=== PATIENT | female | born 1960 | race Caucasian/White ===

== ENCOUNTER 2024-02-26 22:41 | Inpatient (IN) ==
[2024-02-26] MEDS: OPTIRAY 320 100ml IV ONE (23:05)
[2024-02-26 23:09] LABS: iSTAT Creatinine 0.7 mg/dl (0.6-1.3); iSTAT Hemoglobin 14.3 g/dl (12.0-16.0); iSTAT Ionized Calcium 1.16 mmol/l (1.12-1.32); iSTAT Potassium 3.2 mmol/L (3.3-5.0)
[2024-02-26] MEDS: SODIUM CHLORIDE 0.9% 1,000 ML IV SCH (23:26)
[2024-02-26 23:38] LABS: Basophils # (auto) 0.03 K/uL (0.00-0.20); Basophils % (auto) 0.5 %; Eosinophils # (auto) 0.01 K/uL (0.00-0.50); Eosinophils % (auto) 0.2 %; Hematocrit (blood only) 40.3 % (37.0-47.0); Hemoglobin 13.9 g/dl (12.0-16.0); Immature Granulocytes # (auto) 0.01 K/uL (0.01-0.20); Immature Granulocytes % (auto) 0.2 %; Lymphocytes # (auto) 1.21 K/uL (1.20-3.40); Mean Corpuscular Hemoglobin 31.2 pg (25.0-34.0); Mean Corpuscular Hgb Conc 34.5 g/dL (32.0-36.0); Mean Corpuscular Volume 90.4 fL (80.0-100.0); Mean Platelet Volume 9.5 fL (9.4-12.4); Monocytes # (auto) 0.57 K/uL (0.11-0.59); Monocytes % (auto) 10.3 %; Neutrophils # (auto) 3.68 K/uL (1.40-6.50); Neutrophils % (auto) 66.8 %; Platelet Count 353 K/uL (130-400); RDW Standard Deviation 46.6 fL (36.4-46.3); Red Blood Count 4.46 M/uL (4.20-5.40); White Blood Count 5.51 K/ul (4.8-10.8)
[2024-02-27] LABS: INR 0.9 (0.9-1.1); Prothrombin Time 9.9 Seconds (9.0-12.0)
--- NOTE | 2024-02-27 00:12 | CT Scan Report ---
Exam(s): CT HEAD Without Contrast EXAM: CT Head Without Intravenous Contrast CLINICAL HISTORY: Reason for exam: Trauma. TECHNIQUE: Axial computed tomography images of the head/brain without intravenous contrast. CTDI is 37.12 mGy and DLP is 2383.07 mGy-cm. Automated exposure control was utilized for the study. A dose lowering technique was utilized adhering to the principles of ALARA. COMPARISON: PET/CT scan: 07/11/2022 FINDINGS: Diagnostic sensitivity is reduced by the absence of IV contrast and motion artifacts. Brain: Moderately large size area of vasogenic edema with ill-defined borderline hyperdense abnormality and small oval-shaped foci of calcification seen in the left frontotemporal lobes concerning for metastatic lesions versus posttraumatic in nature. A moderate size hypoattenuating abnormality involving the right parietal cortex, likely represents encephalomalacia Ventricles: Unremarkable. No ventriculomegaly. No shift in midline structures. Bones/joints: Right parietal/occipital craniotomy. No acute fracture. Soft tissues: Unremarkable. Sinuses: Unremarkable as visualized. No acute sinusitis. Mastoid air cells: Unremarkable as visualized. No mastoid effusion. IMPRESSION: Exam limited in absence of IV contrast. Moderately large size area of vasogenic edema with ill-defined borderline hyperdense regions and small oval-shaped foci of calcification seen in the left frontotemporal lobes, metastatic lesions versus posttraumatic in nature. Moderate size cortical hypodensity in the right parietal lobe, likely postsurgical encephalomalacia Right parietal/occipital craniotomy. . Electronically signed by: Destiny Yung MD, JULIET 02/27/24 00:11 AM
--- NOTE | 2024-02-27 00:26 | CT Scan Report ---
Exam(s): CT C SPINE EXAM: CT Cervical Spine Without Intravenous Contrast CLINICAL HISTORY: Reason for exam: Trauma. TECHNIQUE: Axial computed tomography images of the cervical spine without intravenous contrast. CTDI is 37.12 mGy and DLP is 2383.07 mGy-cm. Automated exposure control was utilized for the study. A dose lowering technique was utilized adhering to the principles of ALARA. COMPARISON: PET/CT scan: 07/11/2022 FINDINGS: Motion-induced image degradation. There has been prior fusion instrumentation from C3-C7 levels. A 3 mm anterolisthesis of C2 on C3. There is 5-6 mm C3 vertebral anterolisthesis. Vertebrae: Osteoporosis. Straightening of normal lordosis. No acute fracture. Endplates and posterior elements sclerosis and cortical thickening/enlargement of bone. Discs/spinal canal/neural foramina: Multilevel moderate degenerative spondylitic changes with variable degrees of foraminal narrowing. Soft tissues: Grossly unremarkable. . IMPRESSION: Postsurgical spine. 5-6 mm C3 vertebral anterolisthesis. A 3 mm C2 vertebral anterolisthesis. Grossly otherwise no significant abnormalities post trauma . . Electronically signed by: Destiny Yung MD, OLIVER 02/27/24 00:25 AM
[2024-02-27 00:32] LABS: Troponin I High Sensitivity 1127.6 pg/ml (0-14)
[2024-02-27 00:42] LABS: Albumin Level 3.6 gm/dl (3.4-5.0); Bilirubin,Total 0.4 mg/dl (0.2-1.0); Calcium 9.1 mg/dl (8.6-10.3); Potassium 3.4 mmol/L (3.5-5.1)
[2024-02-27 00:48] LABS: BUN Creatinine Ratio 18.2 (10-20); Creatinine Clr Calc Pharmacy 67.2 ml/min; Est GFR (African American) 107.4 ml/min; Est GFR (Non-African American) 92.7 ml/min; Globulin 3.7 gm/dl (2.5-4.0); Total Protein 7.3 gm/dl (6.0-8.3)
--- NOTE | 2024-02-27 01:02 | CT Scan Report ---
Exam(s): CT ABDOMEN + PELVIS With Contrast IV Amt: 93 ML OPTIRAY 320 EXAM: CT Abdomen and Pelvis With Intravenous Contrast CLINICAL HISTORY: Reason for exam: Trauma. TECHNIQUE: Axial computed tomography images of the abdomen and pelvis with intravenous contrast. CTDI is 37.12 mGy and DLP is 2383.07 mGy-cm. Automated exposure control was utilized for the study. A dose lowering technique was utilized adhering to the principles of ALARA. CONTRAST: Patient received 93 ML OPTIRAY 320 of IV contrast COMPARISON: PET/CT scan: 07/11/2022 FINDINGS: Diagnostic sensitivity is reduced by the motion artifact. Lung bases: Posteriorly basilar linear atelectatic changes RT>LT.. Posteriorly mild pleural thickening. Cardiomegaly. Multivessel calcified coronary arterial atherosclerosis. No mass. No consolidation. ABDOMEN: Liver: No discernible mass. Intrahepatic/extrahepatic postcholecystectomy ductal ectasia. CBD: Maximum 13 mm in diameter. Pancreas: Unremarkable. No mass. No ductal dilation. Spleen: Unremarkable. No splenomegaly. Adrenals: Bilateral mild thickening.. No mass. Kidneys and ureters: A 10 mm hypodensity medially in the right renal cortex. A 5.5 mm cyst in the lower pole right kidney. No solid mass. No hydronephrosis. Stomach and bowel: A moderately distended somewhat patulous appearing fluid and gas-filled stomach. Normal caliber small bowel. Large amount of formed stool is seen throughout the colon. No mucosal thickening. PELVIS: Appendix: Normal appendix. Bladder: A distended urinary bladder. No mass. Reproductive: Prior hysterectomy. ABDOMEN and PELVIS: Intraperitoneal space: Unremarkable. No free air. No significant fluid collection. Bones/joints: Osteopenia. A grade 1/grade 2 L4 spondylolisthesis with associated chronic endplates deformity. Mild/moderate rotatory lumbar levoscoliosis. Multilevel degenerative thoracolumbar spondylitic changes. No obvious acute fracture Soft tissues: Unremarkable. Vasculature: Unremarkable. No abdominal aortic aneurysm. Lymph nodes: Unremarkable. No enlarged lymph nodes.. IMPRESSION: Suboptimally evaluated due to motion artifact. No CT evidence of abdominal/pelvic solid organ injury. No free intraperitoneal air, free fluid or acute fracture seen. Chronic findings as described above. . Electronically signed by: Destiny Yung MD, JULIET 02/27/24 01:01 AM
--- NOTE | 2024-02-27 01:25 | Emergency Department Note ---
Impression & Plan AMS (altered mental status), Melanoma metastatic to brain, Vasogenic edema, Elevated troponin, Ground-level fall, CHI (closed head injury) ED Provider Note NAME: LIGIA ROWE AGE: 63 SEX: Female INFORMANT: Patient, EMS, ED PROVIDER(S): José Luis Lozano MD CHIEF COMPLAINT: Trauma PLAN: Disposition: Admitted Outpatient prescription management: none Referral: None MEDICAL DECISION MAKING: Patient presented because of a fall. She seems somewhat confused. She was made a trauma alert and was evaluated appropriately. Primary and secondary surveys performed. She had bruising noted around the left eye. Patient did not complain of any pain. I-STAT was unremarkable. Patient had a nonischemic ECG. She was sent for CT imaging. No acute traumatic findings were noted. There was vasogenic edema present in the left frontal and right posterior portions of her brain. On record review the right posterior seem to be old consistent with her known metastatic issues. Patient appears to have new vasogenic edema in the left frontal lobe. Patient had a significant elevation of cardiac troponin. She was evaluated again and denied any chest pain. states she has not been complaining of any chest pain or breathing issues over the last few days. Due to the vasogenic edema and fall anticoagulation was held. I did order a dose of IV Decadron. Patient will need further evaluation and management in the hospital. [facility]. Patient was evaluated in the ER and admitted for further management Care/management discussed with: mortgage branch manager Level of care consideration(s): After review of the information above and other included data, I feel the patient requires escalation of care to admission Triage Nursing notes: reviewed and agree them. Vital Signs: reviewed and remarkable for no significant abnormalities Additional History obtained from: Patient's presented to the ER. He noted that she has had declining mental status over the last 24 hours. Chronic Medical/Social Conditions affecting care: Metastatic melanoma Prior/ Outside/ External records reviewed: none Differential Diagnosis: Trauma, infection, dehydration, metabolic abnormality, hypo/hyperglycemia, electrolyte disturbance, anemia, hypoxia, cardiac sources, intracerebral event, toxicologic, neurologic, as well as other pathologies. Diagnostics, independently interpreted by me: ECG: Twelve-lead ECG reveals a sinus rhythm first-degree AV block and septal Q waves at [address] elevation or depression. Cardiac Monitoring: Cardiac monitoring ordered by me: The patient was placed on continuous cardiac monitoring and observed. It revealed a normal sinus rhythm at 77 beats per minute without ectopy or evidence of dysrhythmia. Medical decision rules: none Imaging studies: Chest x-ray. Findings: A chest x-ray was performed and revealed no pneumothorax, effusion, infiltrate, pulmonary edema, free air under the diaphragm, or wide mediastinum. Impression: No acute disease. CT scan of the head as above. Vasogenic edema noted. I refer you to the EMR for further details. HPI: 63 year old Female arrives for evaluation of a ground-level fall. This fall reportedly occurred last night. noted over the last 24 hours she had a decrease in mental status. Patient is not on anticoagulation. She does have a history of melanoma. Patient presented and was seeming confused. She denied any headache, neck pain, chest pain, abdominal pain, back pain or extremity pain. The patient has been given no medication prehospital Relieving factors. Current pain is rated as 0/10. Patient denies headache, neck pain, chest pain, abdominal pain, back pain, extremity pain. History is limited secondary to confusion. PAST MEDICAL HISTORY: See Below, melanoma PAST SURGICAL HISTORY: See Below, SOCIAL HISTORY: See Below, HOME MEDICATIONS: See Below ALLERGIES: See Below VITALS: See Below PHYSICAL EXAMINATION: GENERAL: Awake, confused appearing, no distress HEAD: Normocephalic, atraumatic except for small contusion noted in the left eyebrow no mckeon sign. No raccoon eyes. EYES: Normal conjunctiva. PERRL. EARS: External ears normal. NOSE: Atraumatic OROPHARYNX: Lips, tongue, and mucosa unremarkable. No erythema or exudate. NECK: Inspection normal. No tracheal deviation or JVD. No posterior midline tenderness. No step offs noted. RESPIRATORY: CTA bilaterally. Breath sounds equal. No wheezes. No rhonchi. Normal respiratory effort. CARDIAC: Regular rate, normal rhythm. No murmurs. No rubs. ABDOMEN: Inspection reveals no abnormalities. Soft, non distended. No tenderness to palpation. No hernias. BACK: No midline step offs or tenderness to palpation. Unremarkable. PELVIS: Stable to rock. SKIN: Normal. LYMPH: No adenopathy. MUSCULOSKELETAL: Upper and lower extremities are atraumatic. NEURO: GCS 14. Confused sensorium. No sensory or motor deficits noted. PROCEDURES: none CRITICAL CARE: none OBSERVATION NOTE: none Past Med/Surg History Problem List (Updated 02/27/24 @ 01:25 by José Luis Lozano MD) CHI (closed head injury) (Acute) Ground-level fall (Acute) Elevated troponin (Acute) Vasogenic edema (Acute) AMS (altered mental status) (Acute) Memory changes Balance problems Melanoma metastatic to brain (Chronic) Medical History History of melanoma Lesion of brain (08/05/12) Melanoma metastatic to brain No pertinent past medical history Seizure disorder Surgical History H/O craniotomy History of back surgery History of brain surgery x2 History of knee replacement procedure of left knee History of partial hysterectomy Hx of cholecystectomy Status post right foot surgery Family History Grandfather (Maternal) Cancer Breast cancer Sister Cancer Breast cancer Father Cancer Colon cancer Social History Smoking Status: Current every day smoker Tobacco Type: Cigarettes Cigarettes Per Day: 13; Hx Alcohol Use: No Preferred Language: [place] Communication Ability: Effective Visual Impairment: No Limitations Hearing Ability: Normal Beliefs That Will Affect Care: None marital status: Current Living Situation: Spouse current occupational status: employed 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 [employer] Feels Safe at Home: Yes Physical Activity Frequency: Does not Exercise Assistive Devices: Glasses Allergies Allergies Allergy/AdvReac Type Severity Reaction Status Date / Time erythromycin base Allergy Unknown BROUGHT ON Verified 11/19/22 14:03 SEIZURES Macrolide Antibiotics Allergy Unknown Unknown Verified 11/19/22 14:03 Home Meds Home Medications Medication Instructions Recorded Confirmed levothyroxine 200 mcg tablet 200 mcg PO DAILYBB 08/17/21 02/27/24 (Euthyrox) trazodone 100 mg tablet 150 mg PO HS 08/17/21 02/27/24 multivitamin 1 tab PO QAM 08/30/21 02/27/24 paroxetine HCl 40 mg tablet 40 mg PO QAM 08/30/21 02/27/24 ondansetron HCl 8 mg tablet 8 mg PO BID 12/15/21 02/27/24 dabrafenib 75 mg capsule (Tafinlar) 75 mg PO AMHS 07/30/22 02/27/24 trametinib 2 mg tablet (Mekinist) 1.5 mg PO DAILY 07/30/22 02/27/24 carbamazepine 200 mg 400 mg PO AMHS 11/19/22 02/27/24 tablet,extended release,12 hr atorvastatin 20 mg tablet 20 mg PO QPM 02/27/24 02/27/24 losartan 50 mg tablet 50 mg PO QAM 02/27/24 02/27/24 triamcinolone acetonide 0.1 % 1 applic topical BID 02/27/24 02/27/24 topical cream Results & Data (ED) Vital Signs Vital Signs - 24 hr 02/26/24 22:47 02/26/24 22:47 02/26/24 22:47 Temperature 36.7 C Pulse Rate 79 77 Pulse Rate [Right] Pulse Rhythm [Right] Pulse Strength [Right] Respiratory Rate 20 Respiratory Effort / Characteristics Respiratory Depth Blood Pressure 139/88 Blood Pressure [Right Arm] Blood Pressure Mean Blood Pressure Mean [Right Arm] Blood Pressure Position [Right Arm] Pulse Oximetry 95 Oxygen Delivery Method Room Air Sepsis Recent Fever Within 48 Hours No Sepsis New/Unexplained Change in Mental Status Yes Sepsis Action Taken by Nursing No Action Required 02/26/24 22:47 02/26/24 23:30 02/27/24 00:00 Temperature Pulse Rate 70 Pulse Rate [Right] 75 Pulse Rhythm [Right] Regular Pulse Strength [Right] Normal Respiratory Rate 22 16 Respiratory Effort / Characteristics Non-Labored Spontaneous Respiratory Depth Normal Blood Pressure 133/82 Blood Pressure [Right Arm] 106/67 Blood Pressure Mean 89 Blood Pressure Mean [Right Arm] 80 Blood Pressure Position [Right Arm] Lying Pulse Oximetry 91 96 Oxygen Delivery Method Room Air Room Air Sepsis Recent Fever Within 48 Hours Sepsis New/Unexplained Change in Mental Status Sepsis Action Taken by Nursing 02/27/24 00:58 02/27/24 01:56 Temperature Pulse Rate Pulse Rate [Right] 82 77 Pulse Rhythm [Right] Pulse Strength [Right] Respiratory Rate 16 16 Respiratory Effort / Characteristics Non-Labored Spontaneous Non-Labored Spontaneous Respiratory Depth Normal Normal Blood Pressure Blood Pressure [Right Arm] 121/78 114/76 Blood Pressure Mean Blood Pressure Mean [Right Arm] 92 88 Blood Pressure Position [Right Arm] Lying Pulse Oximetry 96 94 Oxygen Delivery Method Room Air Room Air Sepsis Recent Fever Within 48 Hours Sepsis New/Unexplained Change in Mental Status Sepsis Action Taken by Nursing Laboratory Data 02/26/24 22:50 02/26/24 22:54 Lab Results 02/26/24 02/26/24 02/26/24 Range/Units 22:50 22:54 22:56 WBC 5.51 (4.8-10.8) K/ul RBC 4.46 (4.20-5.40) M/uL Hgb 13.9 (12.0-16.0) g/dl POC Hgb 14.3 (12.0-16.0) g/dl Hct 40.3 (37.0-47.0) % POC Hct 42 (37-47) % MCV 90.4 (80.0-100.0) fL MCH 31.2 (25.0-34.0) pg MCHC 34.5 (32.0-36.0) g/dL RDW Std Deviation 46.6 H (36.4-46.3) fL RDW Coeff of Kelvin 14.0 (11.5-14.5) % Plt Count 353 (130-400) K/uL MPV 9.5 (9.4-12.4) fL Immature Gran % (Auto) 0.2 % Neut % (Auto) 66.8 % Lymph % (Auto) 22.0 % [place] % (Auto) 10.3 % Eos % (Auto) 0.2 % Baso % (Auto) 0.5 % Neut # (Auto) 3.68 (1.40-6.50) K/uL Lymph # (Auto) 1.21 (1.20-3.40) K/uL [place] # (Auto) 0.57 (0.11-0.59) K/uL Eos # (Auto) 0.01 (0.00-0.50) K/uL Baso # (Auto) 0.03 (0.00-0.20) K/uL Immature Gran # (Auto) 0.01 (0.01-0.20) K/uL PT 9.9 (9.0-12.0) Seconds INR 0.9 (0.9-1.1) POC Sodium 137 (135-144) mmol/L Sodium 136 (136-145) mmol/L POC Potassium 3.2 L (3.3-5.0) mmol/L Potassium 3.4 L (3.5-5.1) mmol/L POC Chloride 99 L (101-112) mmol/L Chloride 99 (98-107) mmol/L Carbon Dioxide 28 (21-32) mmol/L POC Total CO2 27 (24-31) mmol/L Anion Gap 9 (3-11) POC Anion Gap 15.0 L (16-25) mmol/L POC BUN 12 (7-18) mg/dl BUN 12 (6-23) mg/dl Creatinine 0.66 (0.6-1.2) mg/dl POC Creatinine 0.7 (0.6-1.3) mg/dl Est Cr Clr Drug Dosing 67.2 ml/min Est GFR ( Amer) 107.4 ml/min Est GFR (Non-Af Amer) 92.7 ml/min BUN/Creatinine Ratio 18.2 (10-20) Glucose 138 H (70-99(Fasting)) mg/dl POC Glucose (other) 137 H (70-99) mg/dl Calcium 9.1 (8.6-10.3) mg/dl POC Ioniz Calcium Deshawn 1.16 (1.12-1.32) mmol/l Total Bilirubin 0.4 (0.2-1.0) mg/dl AST 36 (13-39) U/L ALT 16 (7-52) U/L Alkaline Phosphatase 111 H (34-104) U/L Ammonia (18-72) umol/L Total Creatine Kinase 269 H (26-192) U/L Troponin I High Sens 1127.6 H* (0-14) pg/ml Total Protein 7.3 (6.0-8.3) gm/dl Albumin 3.6 (3.4-5.0) gm/dl Globulin 3.7 (2.5-4.0) gm/dl Albumin/Globulin Ratio 1.0 (0.9-2) Ethyl Alcohol mg/dL < 10.0 (<10.0) mg/dl 02/27/24 Range/Units 00:27 WBC (4.8-10.8) K/ul RBC (4.20-5.40) M/uL Hgb (12.0-16.0) g/dl POC Hgb (12.0-16.0) g/dl Hct (37.0-47.0) % POC Hct (37-47) % MCV (80.0-100.0) fL MCH (25.0-34.0) pg MCHC (32.0-36.0) g/dL RDW Std Deviation (36.4-46.3) fL RDW Coeff of Kelvin (11.5-14.5) % Plt Count (130-400) K/uL MPV (9.4-12.4) fL Immature Gran % (Auto) % Neut % (Auto) % Lymph % (Auto) % [place] % (Auto) % Eos % (Auto) % Baso % (Auto) % Neut # (Auto) (1.40-6.50) K/uL Lymph # (Auto) (1.20-3.40) K/uL [place] # (Auto) (0.11-0.59) K/uL Eos # (Auto) (0.00-0.50) K/uL Baso # (Auto) (0.00-0.20) K/uL Immature Gran # (Auto) (0.01-0.20) K/uL PT (9.0-12.0) Seconds INR (0.9-1.1) POC Sodium (135-144) mmol/L Sodium (136-145) mmol/L POC Potassium (3.3-5.0) mmol/L Potassium (3.5-5.1) mmol/L POC Chloride (101-112) mmol/L Chloride (98-107) mmol/L Carbon Dioxide (21-32) mmol/L POC Total CO2 (24-31) mmol/L Anion Gap (3-11) POC Anion Gap (16-25) mmol/L POC BUN (7-18) mg/dl BUN (6-23) mg/dl Creatinine (0.6-1.2) mg/dl POC Creatinine (0.6-1.3) mg/dl Est Cr Clr Drug Dosing ml/min Est GFR ( Amer) ml/min Est GFR (Non-Af Amer) ml/min BUN/Creatinine Ratio (10-20) Glucose (70-99(Fasting)) mg/dl POC Glucose (other) (70-99) mg/dl Calcium (8.6-10.3) mg/dl POC Ioniz Calcium Deshawn (1.12-1.32) mmol/l Total Bilirubin (0.2-1.0) mg/dl AST (13-39) U/L ALT (7-52) U/L Alkaline Phosphatase (34-104) U/L Ammonia 33.0 (18-72) umol/L Total Creatine Kinase (26-192) U/L Troponin I High Sens 1238.1 H* (0-14) pg/ml Total Protein (6.0-8.3) gm/dl Albumin (3.4-5.0) gm/dl Globulin (2.5-4.0) gm/dl Albumin/Globulin Ratio (0.9-2) Ethyl Alcohol mg/dL (<10.0) mg/dl Administered Medications Sodium Chloride (Nss) 1,000 mls @ 125 mls/hr IV .Q8H PORTER Stop: 03/27/24 22:59 Last Admin: 02/26/24 23:26 Dose: 125 mls/hr Documented By: TONEG Discontinued Medications Dexamethasone Sodium Phosphate (DexamethasonePf 10 Mg/Ml Vial) 10 mg IV NOW ONE Stop: 02/27/24 01:22 Last Admin: 02/27/24 01:47 Dose: 10 mg Documented By: MADELYN Ioversol (Optiray 320 100ml) 100 ml IV ONCE ONE Stop: 02/26/24 23:06 Last Admin: 02/26/24 23:05 Dose: 93 ml Documented By: KADY Imaging Data Radiologist's Impression: Cervical Spine CT 02/26/24 22:48 Exam(s): CT C SPINE EXAM: CT Cervical Spine Without Intravenous Contrast CLINICAL HISTORY: Reason for exam: Trauma. TECHNIQUE: Axial computed tomography images of the cervical spine without intravenous contrast. CTDI is 37.12 mGy and DLP is 2383.07 mGy-cm. Automated exposure control was utilized for the study. A dose lowering technique was utilized adhering to the principles of ALARA. COMPARISON: PET/CT scan: 07/11/2022 FINDINGS: Motion-induced image degradation. There has been prior fusion instrumentation from C3-C7 levels. A 3 mm anterolisthesis of C2 on C3. There is 5-6 mm C3 vertebral anterolisthesis. Vertebrae: Osteoporosis. Straightening of normal lordosis. No acute fracture. Endplates and posterior elements sclerosis and cortical thickening/enlargement of bone. Discs/spinal canal/neural foramina: Multilevel moderate degenerative spondylitic changes with variable degrees of foraminal narrowing. Soft tissues: Grossly unremarkable. . IMPRESSION: Postsurgical spine. 5-6 mm C3 vertebral anterolisthesis. A 3 mm C2 vertebral anterolisthesis. Grossly otherwise no significant abnormalities post trauma . . Electronically signed by: Destiny Yung MD, DABR 02/27/24 00:[address] 02/26/24 22:48 Exam(s): CT HEAD Without Contrast EXAM: CT Head Without Intravenous Contrast CLINICAL HISTORY: Reason for exam: Trauma. TECHNIQUE: Axial computed tomography images of the head/brain without intravenous contrast. CTDI is 37.12 mGy and DLP is 2383.07 mGy-cm. Automated exposure control was utilized for the study. A dose lowering technique was utilized adhering to the principles of ALARA. COMPARISON: PET/CT scan: 07/11/2022 FINDINGS: Diagnostic sensitivity is reduced by the absence of IV contrast and motion artifacts. Brain: Moderately large size area of vasogenic edema with ill-defined borderline hyperdense abnormality and small oval-shaped foci of calcification seen in the left frontotemporal lobes concerning for metastatic lesions versus posttraumatic in nature. A moderate size hypoattenuating abnormality involving the right parietal cortex, likely represents encephalomalacia Ventricles: Unremarkable. No ventriculomegaly. No shift in midline structures. Bones/joints: Right parietal/occipital craniotomy. No acute fracture. Soft tissues: Unremarkable. Sinuses: Unremarkable as visualized. No acute sinusitis. Mastoid air cells: Unremarkable as visualized. No mastoid effusion. IMPRESSION: Exam limited in absence of IV contrast. Moderately large size area of vasogenic edema with ill-defined borderline hyperdense regions and small oval-shaped foci of calcification seen in the left frontotemporal lobes, metastatic lesions versus posttraumatic in nature. Moderate size cortical hypodensity in the right parietal lobe, likely postsurgical encephalomalacia Right parietal/occipital craniotomy. . Electronically signed by: Destiny Yung MD, JULIET 02/27/24 00:11 AM Abdomen/Pelvis CT 02/26/24 22:49 Exam(s): CT ABDOMEN + PELVIS With Contrast IV Amt: 93 ML OPTIRAY 320 EXAM: CT Abdomen and Pelvis With Intravenous Contrast CLINICAL HISTORY: Reason for exam: Trauma. TECHNIQUE: Axial computed tomography images of the abdomen and pelvis with intravenous contrast. CTDI is 37.12 mGy and DLP is 2383.07 mGy-cm. Automated exposure control was utilized for the study. A dose lowering technique was utilized adhering to the principles of ALARA. CONTRAST: Patient received 93 ML OPTIRAY 320 of IV contrast COMPARISON: PET/CT scan: 07/11/2022 FINDINGS: Diagnostic sensitivity is reduced by the motion artifact. Lung bases: Posteriorly basilar linear atelectatic changes RT>LT.. Posteriorly mild pleural thickening. Cardiomegaly. Multivessel calcified coronary arterial atherosclerosis. No mass. No consolidation. ABDOMEN: Liver: No discernible mass. Intrahepatic/extrahepatic postcholecystectomy ductal ectasia. CBD: Maximum 13 mm in diameter. Pancreas: Unremarkable. No mass. No ductal dilation. Spleen: Unremarkable. No splenomegaly. Adrenals: Bilateral mild thickening.. No mass. Kidneys and ureters: A 10 mm hypodensity medially in the right renal cortex. A 5.5 mm cyst in the lower pole right kidney. No solid mass. No hydronephrosis. Stomach and bowel: A moderately distended somewhat patulous appearing fluid and gas-filled stomach. Normal caliber small bowel. Large amount of formed stool is seen throughout the colon. No mucosal thickening. PELVIS: Appendix: Normal appendix. Bladder: A distended urinary bladder. No mass. Reproductive: Prior hysterectomy. ABDOMEN and PELVIS: Intraperitoneal space: Unremarkable. No free air. No significant fluid collection. Bones/joints: Osteopenia. A grade 1/grade 2 L4 spondylolisthesis with associated chronic endplates deformity. Mild/moderate rotatory lumbar levoscoliosis. Multilevel degenerative thoracolumbar spondylitic changes. No obvious acute fracture Soft tissues: Unremarkable. Vasculature: Unremarkable. No abdominal aortic aneurysm. Lymph nodes: Unremarkable. No enlarged lymph nodes.. IMPRESSION: Suboptimally evaluated due to motion artifact. No CT evidence of abdominal/pelvic solid organ injury. No free intraperitoneal air, free fluid or acute fracture seen. Chronic findings as described above. . Electronically signed by: Destiny Yung MD, JULIET 02/27/24 01:01 AM Discharge Plan Visit Data Chief Complaint: Trauma Stated Complaint: Fall, Head Injury, Vomiting ED Provider: José Luis Lozano Discharge Problem: AMS (altered mental status), Melanoma metastatic to brain, Vasogenic edema, Elevated troponin, Ground-level fall, CHI (closed head injury) Forms Stand Alone Forms: [facility] Prescriptions Prescriptions: No Action multivitamin Tablet 1 tab PO QAM trazodone 100 mg tablet 150 mg PO HS levothyroxine [Euthyrox] 200 mcg tablet 200 mcg PO DAILYBB paroxetine HCl 40 mg tablet 40 mg PO QAM carbamazepine 200 mg tablet extended release 12 hr 400 mg PO AMHS Rx Instructions: Take 2 tablets in the morning and 2 tablets at bedtime ondansetron HCl 8 mg tablet 8 mg PO BID Rx Instructions: take 1/2 hr before tafinlar Mekinist 2 mg tablet 1.5 mg PO DAILY Tafinlar 75 mg capsule 75 mg PO AMHS atorvastatin 20 mg tablet 20 mg PO QPM losartan 50 mg tablet 50 mg PO QAM triamcinolone acetonide 0.1 % cream 1 applic TOPICAL BID Referrals Referrals: Martin Solorio MD [Primary Care Provider] -
[2024-02-27] MEDS: dexAMETHasone**PF** 10 MG/ML VIAL IV ONE (01:47)
--- OUTSIDE RECORDS SUMMARY | 2024-02-27 02:24 | External Medical Summary | Summary of Care ---
Author Name Unknown Organization [facility] Address [address] [place] [address] Phone [phone] Care Team Providers Care Spray Dry Operator Name Role Phone Martin Solorio MD Primary Care Provider [phone] Reason for Visit * Reason Onset Date Comments Test Results 02/20/2024 Unexpected or In determinate Result Encounter Details Date Type Department Care Team (Late st Contact Info) Description 02/20/2024 Telephone [facility] [address] [place] [address] José Luis Paul IV, PA-C [address] [place] [address] Test Results (Unexpected or Indeterminate ... Allergies Active Allergy Reactions Criticality Noted Date Comments Erythromycin 08/15/1997 seizures documented as of this encounter (statuses as of 02/24/2024) Medications Medication Sig Dispensed Refills Start Date End Date Status MULTIVITAMINS PO TABS Take 1 Tablet by mouth every morning. 0 09/10/2007 Active traZODone HCl 100 MG Oral Tablet (Desyrel)Indication s:Insomnia, unspecified type TAKE 1 & 1/2 (ONE & ONE-HALF) TABLETS BY MOUTH AT BEDTIME 45 Tablet 5 05/06/2023 Active Losartan Potassium 50 MG Oral Tablet (Cozaar)Indications :HTN, goal below 130/80 Take 1 Tablet by mouth in the morning. 90 Tablet 3 07/31/2023 Active Atorvastatin Calcium 20 MG Oral Tablet (Lipitor)Indication s:Dyslipidemia Take 1 Tablet by mouth every evening. 90 Tablet 3 07/31/2023 Active Dabrafenib Mesylate 75 MG Oral Capsule (Tafinlar) Take 1 Capsule by mouth in the morning and 1 Capsule before bedtime. 120 Capsule 5 08/28/2023 Active PARoxetine HCl 40 MG Oral Tablet (pAXil)Indications: Adjustment disorder with depressed mood TAKE 1 TABLET BY MOUTH IN THE MORNING 90 Tablet 1 10/09/2023 Active Trametinib Dimethyl Sulfoxide 0.5 MG Oral Tablet (Mekinist)Indicatio ns:Malignant melanoma of left lower extremity (HCC) Take 3 tablets (1.5mg) by mouth in the morning. 90 Tablet 5 10/27/2023 Active Levothyroxine Sodium 200 MCG Oral Tablet TAKE 1 TABLET BY MOUTH ONCE DAILY IN THE MORNING AT LEAST 30 MIN BEFORE BREAKFAST OR OTHER MEDS 90 Tablet 1 11/14/2023 Active Triamcinolone Acetonide 0.1 % External Cream (Aristocort) Apply topically to affected area 2 times a day. To affected area. 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) TAKE 2 TABLETS BY MOUTH IN THE MORNING AND 2 IN THE EVENING 02/02/2024 Active Ondansetron HCl 8 MG Oral Tablet (Zofran)Indications :Malignant melanoma of left lower extremity (HCC),Malignant 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) TAKE 1 TABLET BY MOUTH TWICE DAILY 30 MIN PRIOR TO ADMINSTRATION OF TAFINLAR 60 Tablet 2 02/11/2024 Active documented as of this encounter (statuses as of 02/24/2024) Active Problems Problem Noted Date Diagnosed Date Cerebral atrophy 09/30/2023 Left sided lacunar infarction 09/30/2023 Spinal stenosis of cervical region 09/30/2023 Coronary artery disease invo lving upper [place] coronary artery of [place] heart without angina pectoris 09/30/2023 Pulmonary nodules 09/30/2023 Centrilobular emphysema 09/30/2023 Left atrial enlargement 09/30/2023 Mild mitral regurgitation 09/30/2023 Mild tricuspid regurgitation 09/30/2023 Mild pulmonary valve regurgitation 09/30/2023 Brain lesion 09/08/2023 Malignant neoplasm metastatic to brain Hx of melanoma of skin 08/26/2019 Overview: Melanoma involving the left leg, S/P resection (12/26/2017 -CT of invasion 2.7 mm level 4, T3b (presence of ulceration) -3/3 sentinel lymph nodes positive for metastatic disease in the left inguinal region, largest metastatic focus measuring 0.2 mm, N2a - PET-CT scan negative for distant metastatic disease -BRAF negative for V600E mutation On Nivolumab (Opdivo) - started 01/26/2018 She will have ultrasound evaluation of left inguinal region every 3 to 4 monthly, starting from March 2018 US abdomen - 10/06 normal, CT chest - 11/06 pneumonitis, no lesions, US abdomen 01/06-normal/no lymphadenopathy, Chest XRay 04/08 normal PET 05/08- Focal uptake on skin surface of proximal posterior L thigh US abdomen 05/08- normal CT Chest w/o contrast 05/08-numerous subcentemeter pulmonary nodules, 9mm in LLL, recommend chest CT w/o contrast in 3-6 months. 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 Dyslipidemia 04/13/2011 Tobacco use disorder 09/06/2006 Chronic rhinitis 09/06/2006 Adjustment disorder with depressed mood 07/26/18 99 Migraine with aura documented as of this encounter (statuses as of 02/24/2024) Resolved Problems Problem Noted Date Diagnosed Date Resolved Date Vasogenic brain edema 09/22/20212021 Intracranial hemorrhage 08/18/202109/18 Psoriasis 08/26/2019 09/30/2023 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 Brachial neuritis 09/07/2007 04/13/2011 Insomnia 05/14/2007 04/13/2011 Overview: ICD-10 update of inactive term ACUTE SINUSITIS NOS 09/06/2006 09/08/19 Overview: Resolved per Benign Acute Dxs Protocol #3 ACUTE URI NOS 09/06/2006 09/08/2008 Overview: Resolved per Benign Acute Dxs Protocol #3 Cough 09/06/2006 04/13/2011 PURE HYPERCHOLESTEROLEM 04/09/200506/20 Overview: Per Lipid Taxonomy. Acute cholecystitis 01/24/2004 04/13/20 11 BACKACHE NOS 04/26/2003 11/27/2010 Tension headache 04/13/2011 documented as of this encounter (statuses as of 02/24/2024) Immunizations Name Administration Dates Next Due COVID-19, MRNA-LNP, 23-24, P F, 50 MCG/0.5 mL, 12 YRS AND ABOVE, IM (MODERNA-Spikevax) 06/26/2023 Pneumococcal Conjugate Vacc, 13 Valent (Prevnar) 03/08/2023,04/22/2022,04/08/2019 Pneumococcal Polysaccharide PPV23 (Pneumovax) 04/23/2013 RSV Vac., Recomb, Adjuvant, PF,0.5 Ml (Arexvy) 06/26/2023 Seasonal Influenza, PF, 6 M & above, IM , (FluLaval or Fluzone) 04/04/2021,04/26/2020,04/08/2019 Seasonal Influenza, Quadriva lent, No Preserve, IM 03/08/2023 Seasonal Influenza, Split, I IV3, No Preserve, Inj 06/07/2016,06/08/2015 TD, Preservative Free 04/20/2007 TDAP (age 10 and older)(Boostrix) 02/20/2021 Zoster Vaccine Recombinant (Shingrix) 07/17/2022 ,04/22/2022 documented as of this encounter Social History Tobacco Use Types Packs/Day Years Used Date Smoking Tobacco: Every Day Cigarettes 0.5 20 Smokeless Tobacco: Never Comments:quit 1995;Pt starte d smoking last year. quit on 09/01/2007, smoking on and off Alcohol Use Standard Drinks/Week Comments Never 0 (1 standard drink = 0.6 oz pur e alcohol) occassionally PHQ-2 Answer Date Recorded PHQ Adult Total Score 0 09/10/2023 Hunger Vital Sign Answer Date Recorded Within the past 12 months, y ou worried that your food would run out before you got the money to buy more. Never true 09/16/19 24 Within the past 12 months, t he food you bought just didn't last and you didn't have money to get more. Never true 09/16/2023 Childcare Answer Date Recorded Do you feel overwhelmed with taking care of a child, family member or friend? No 09/16/2023 Does your family need help f inding childcare? (Household - for ages 0-17 years) Not on file 09/16/2023 Clothing Answer Date Recorded Have you been unable to get clothing when it was really needed? No 09/16/2023 Is your family able to get c lothes or diapers when needed? (Household - for ages 0-17 years) Not on file 09/16/2023 Personal Safety Answer Date Recorded Do you feel unsafe or have concerns for your saf ety? No 09/16/2023 Do you have concerns for you r family's safety? (Household - for ages 0-17 years) Not on file 09/16/2023 Utilities Answer Date Recorded Do you have trouble paying y our heating, water, or electric bill? No 09/16/2023 Is your family able to pay t he heat, water, or electric bill? (Household - for ages 0-17 years) Not on file 09/16/2023 Does your family have access to good internet? (Household - for ages 0-17 years) Not on file 09/16/2023 Employment Status Answer Date Recorded Are you unemployed or without regular income? No 09/16/2023 Does the household have a re gular source of income? (Household - for ages 0-17 years) Not on file 09/16/2023 Social Connections Answer Date Recorded How often do you feel lonely or isolated from th ose around you? Never 09/16/2023 Financial Resource Strain Answer Date R ecorded Do you have any trouble payi ng for your medications, or do you think you might in the future? No 09/16/2023 Does your family have troubl e paying for medicine? (Household - for ages 0-17 years) Not on file 09/16/2023 Transportation Needs Answer Date Record ed READ ONLY Do you have troubl e getting a ride to medical visits or work? Never True 09/16/2023 Does your family have a hard time getting a ride to doctors visits? (Household - for ages 0-17 years) Not on file 09/16/2023 Has lack of transportation k ept you from medical appointments, meetings, work, or from getting things needed for daily living? Check all that apply. (Adult - for ages 18 years and over) Not on file 09/16/2023 Do you (or your family) have trouble finding or paying for a ride (transportation)? (Household - for ages 0-17 years) Not on file 09/16/2023 Housing Stability Answer Date Recorded Do you currently live in a s helter or have no steady place to sleep at night? No 09/16/2023 READ ONLY Do you think you a re at risk of becoming homeless? No 09/16/2023 Does your family worry about paying for your home or becoming homeless? (Household - for ages 0-17 years) Not on file 0 09/16/2023 Are you homeless or worried that you might be in the future? (Adult - for ages 18 years and over) Not on file Are you (or your family) walt eless or worried that you might be in the future? (Household - for ages 0-17 years) Not on file Food Insecurity Answer Date Recorded Do you need food for this week? No 09/16/2023 Are you able to get enough f ood for your family? (Household - for ages 0-17 years) Not on file 09/16/2023 Does your family need food t his week? (Household - for ages 0-17 years) Not on file 09/16/2023 Do you always have enough fo od for your family? (Household - for ages 0-17 years) Not on file 09/16/2023 Sex and Gender Information Value Date Recorded Sex Assigned at Female 07/17/2023 3:25 PM EST Gender Identity Female 07/17/2023 3:25 PM EST Sexual Orientation Choose not to disclose 2022 3:25 PM EST Job Start Date Occupation Industry Not on file Not on file Not on file documented as of this encounter Functional Status Functional Status Response Date of Assess ment Are you deaf or do you have serious difficulty hearing? No 09/21/2021 Are you blind or do you have serious difficulty seeing, even when wearing glasses? No 09/21/2021 Do you have serious difficul ty walking or climbing stairs? (5 years old or older) Yes 09/21/2021 Do you have difficulty dress ing or bathing? (5 years old or older) Yes-Help from 09/21/2021 Because of a physical, menta l, or emotional condition, do you have difficulty doing errands alone such as visiting a doctor s office or shopping? (15 years old or older) Yes- does 09/21/2021 Cognitive Status Response Date of Assessm ent Because of a physical, menta l, or emotional condition, do you have serious difficulty concentrating, remembering, or making decisions? (5 years old or older) No 09/21/2021 documented as of this encounter Miscellaneous Notes * Telephone Encounter - Kori Bailey LPN - 02/24/2024 3:32 PM EDT Called patient, Patient identified by name and date of . Informed her I was calling to schedule her for an appointment on Friday03/01/24 in [facility] per José Luis Paul PA-C. She stated that she is scheduled for an appointment in [place] on Friday03/02/24 and wanted to know if there was any way she could be seen on Friday instead of making 2 trips. I stated that I will message José Luis and see what he says and get back to her. She thanked me. TT Message sent to José Luis Paul PA-C regarding this matter. * Telephone Encounter - José Luis Paul IV, PA-C - 02/23/2024 4:08 PM EDT Acknowledged. This will be reviewed with patient at upcoming tumor MDC appt. José Luis Paul IV, PA-C * Telephone Encounter - Kimberlee Miller TECH - 02/20/2024 10:13 PM EDT Hello- The radiologist discovered an unexpected or indeterminate finding on Judy Garcia ([id number]) and asks that you review the following report. Study Type:MRI BRAIN WITHOUT CONTRAST Date of Study: 02/20/2024 IMPRESSION IMPRESSION Intravenous contrast administration was unsuccessful following multiple attempts. Post-ALYSHA treatment related changes in the left frontal lobe. Parenchymal abnormality at the treatment site measuring 1.9 cm, not fully characterized. Surrounding vasogenic edema and mild mass effect, increased since pretreatment imaging. Short interval follow-up with postcontrast and perfusion imaging is recommended. Postsurgical changes in the right parietal lobe appear unchanged on noncontrast exam. Please respond to this encounter to acknowledge receipt of this message and take responsibility to ensure this report is reviewed. Thank you, MAGI Acuna Client Service Rep [facility] [place] documented in this encounter Plan of Treatment Upcoming Encounters Date Type Department Care Team (Late st Contact Info) Description 03/02/2024 9:45 AM EDT Pharmacy Pharmacy Hematology Oncology [facility] [address] [place] [address] [facility] [place] Hem/Onc [address] [place] [address] 03/02/2024 2:00 PM EDT Office Visit Dermatology [address] [address] Jed Swanson MD [address] [place] [address] 05/06/2024 2:45 PM EDT Office Visit [facility]ology[facility] [address] [facility], [place] [phone] Benja Watkins MD [address] [place] [address] 08/02/2024 8:20 AM EST Office Visit [facility] [address] [place] [phone] Mratin Solorio MD [address] [place] [address] 10/05/2024 12:30 PM EDT Telemedicine Care at Home [address] [place] [address] Kori Dumont PA-C [address], [place] [id number] 02/14/2025 8:00 AM EDT Imaging Radiology [facility] [address] [facility] [address] [place] [id number] Scheduled Procedures Name Priority Associated Diagnoses Date/Ti me COLONOSCOPY FLEXIBLE PROXIMA L DIAGNOSTIC Recall Family history of colon cancer Health Maintenance Due Date Last Done Comments Alpha-1 Antitrypsin 1976 Cologuard 2003 Fecal Occult Blood Test 2003 Sigmoidoscopy 2003 COVID-19 Vaccine ( season) 2023 06/26/2023, 10/03/2020, 09/12/2020 Influenza Vaccine (FLU shot) (#1) 2024 03/08/2023, 04/04/2021, 04/04/2021, Additional history exists Pneumococcal Vaccine: 65+ Years (3 of 3 - PPSV23 or PCV20) 07/15/2024 03/08/2023, 04/22/2022, 04/08/2019, Additional history exists Postponed from 05/03/2023 (Patient Declined After Education) DXA Scan 07/20/2024 Postponed from 2023 (Patient Declined After Education) HIV Screening 07/20/2024 Postponed from 1973 (Patient Declined After Education) Hepatitis C Screening 07/20/2024 Postpo luiz from 1976 (Patient Declined After Education) O2 ASSESSMENT COMPLETED IN PAST YEAR FOR COPD 09/08/2024 09/08/2023 Depression Screening 09/10/2024 09/10/2023 DISCUSS TOBACCO CESSATION (REFER TO SMARTSET #3291) 01/28/2025 01/29/2024 GFR 01/28/2025 01/29/2024, 08/21, 08/08/2023, Additional history exists TSH 01/28/2025 01/29/2024, 07/21, 07/25/2023, Additional history exists Mammogram 02/12/2025 02/13/2024, 01/19, 02/22/2020, Additional history exists Colonoscopy 06/05/2026 06/05/2021, 05/21, 08/10/2010 Colorectal Cancer Screening 06/05/2026 Albumin/Creatinine Ratio 07/25/2026 07/25/2023 Diabetes Screening 01/28/2027 01/29/2024, 0 09/08/2023, 09/03/2023, Additional history exists DTaP,Tdap,and Td Vaccines (2 - Td or Tdap) 02/20/2031 02/20/2021, 04/20/2007 RETIRED - COLONOSCOPY-EVERY 5 YRS AGES 18-100 Discontinued 06/05/2021, 06/05/2021, 08/10/2010, Additional history exists Zoster Vaccines Completed 07/17/2022, 04/22/2022 HPV (Gardasil) Vaccine Aged Out No lo nger eligible based on patient's age to complete this topic Hepatitis B Vaccine Aged Out No longe r eligible based on patient's age to complete this topic MENINGOCOCCAL (MENACTRA/MENVEO) Aged Out No longer eligible based on patient's age to complete this topic documented as of this encounter Medical Devices Implanted Type Area Glost Kiln Operator Device Identifier Shelf Expiration Date Model / Serial / Lot Cover Inlda Hole 24mm 421.528 - [id number] Implanted:Qty: 1 on 08/20/2021 by Joni Hand III, MD at OR [facility] [place] Right: Head [employer]ES MAXILL[employer]IAL 421.528 / / Plate Y Ti Lo Db 6h 21 421.517 - [id number] Implanted:Qty: 1 on 08/20/2021 by Joni Hand III, MD at OR [facility] [place] Right: Head [employer]ES MAXILLOF[employer]IAL 421.517 / / Screw Ti Lo Pro Sd 4mm 400.834 - [id number] Implanted:Qty: 10 on 08/20/2021 by Joni Hand III, MD at OR [facility] [place] Right: Head [employer] MAXILL[employer]IAL 400.834 / / documented as of this encounter Advance Directives * Full Code (Latest Code Status on File) Date Activated Date Inactivated Comments 09/08/2023 10:37 AM 09/08/2023 6:48 PM This order reflects the patients wishes and were consensually agreed upon. Question Answer Comments Discussion of Advance Direct waylon occurred with: Not Discussed due to patient's condition * Full Code Date Activated Date Inactivated Comments 09/08/2023 7:08 AM 09/08/2023 10:37 AM This order reflects the patients wishes and were consensually agreed upon. Question Answer Comments Discussion of Advance Direct waylon occurred with: Not Discussed due to patient's condition * Full Code Date Activated Date Inactivated Comments 09/21/2021 6:15 PM 09/23/2021 5:59 PM This order ref lects the patients wishes and were consensually agreed upon. Question Answer Comments Discussion of Advance Directives occurred with: Patient * Full Code Date Activated Date Inactivated Comments 08/17/2021 10:44 PM 08/21/2021 6:24 PM This order r eflects the patients wishes and were consensually agreed upon. * Full Code Date Activated Date Inactivated Comments 12/26/2017 10:25 AM 12/26/2017 7:57 PM This order re flects the patients wishes and were consensually agreed upon. Question Answer Comments Discussion of Advance Directives occurred with: Not Discussed Care Teams Spray Dry Operator Relationship Specialty Start Date End Date Martin Solorio MD [address] [place] [address] PCP - General Family Medicine 02/20/21 documented as of this encounter
--- OUTSIDE RECORDS SUMMARY | 2024-02-27 02:24 | External Medical Summary | Summary of Care ---
Author Name Unknown Organization [facility] Address [address] [place] [address] Phone [phone] Care Team Providers Care Stock Worker And Deliverer Name Role Phone Martin Solorio MD Primary Care Provider [phone] Reason for Visit * Reason Onset Date Comments Test Results 02/20/2024 Unexpected or In determinate Result Encounter Details Date Type Department Care Team (Late st Contact Info) Description 02/20/2024 Telephone [facility] [address] [place] [address] José Luis Paul IV, PA-C [address] [place] [address] Test Results (Unexpected or Indeterminate ... Allergies Active Allergy Reactions Criticality Noted Date Comments Erythromycin 08/15/1997 seizures documented as of this encounter (statuses as of 02/23/2024) Medications Medication Sig Dispensed Refills Start Date [...] as of this encounter (statuses as of 02/23/2024) Active Problems Problem Noted Date Diagnosed Date Cerebral atrophy 09/30/2023 Left sided lacunar infarction 09/30/2023 Spinal stenosis of cervical region 09/30/2023 Coronary artery disease invo lving [place] coronary artery of [place] heart without angina pectoris 09/30/2023 Pulmonary nodules [...] as of this encounter (statuses as of 02/23/2024) Resolved Problems Problem Noted Date Diagnosed Date [...] as of this encounter (statuses as of 02/23/2024) Immunizations Name Administration Dates Next Due COVID-19, [...] encounter Miscellaneous Notes * Telephone Encounter - José Luis Pual IV, PA-C - 02/23/2024 4:08 PM EDT Acknowledged. This will be reviewed with patient at upcoming tumor MDC appt. José Luis Paul IV, PA-C * Telephone Encounter - Kimberlee Miller TECH - 02/20/2024 10:13 PM EDT Hello- The radiologist discovered an unexpected or indeterminate finding on Judy Garcia ([id number]) and asks that you review the following [...] Thank you, MAGI Acuna Client Service Rep [facility] Medicine [place] documented in this encounter Plan of Treatment Upcoming Encounters Date Type Department Care Team (Late st Contact Info) Description 03/02/2024 9:45 AM EDT Pharmacy Pharmacy Hematology Oncology [address] [address] [facility] [place] Hem/Onc [facility] [place] [address] 03/02/2024 2:00 PM EDT Office Visit Dermatology [address] [address] Jed Swanson MD [address] [place] [address] 05/06/2024 2:45 PM EDT Office Visit [facility]ematology[facility] [place] [phone] Benja Watkins MD [address] [place] [address] 08/02/2024 8:20 AM EST Office Visit [facility] [address] [place] [phone] Martin Solorio MD [address] [place] [address] 10/05/2024 12:30 PM EDT Telemedicine Care at Home [facility] [place] [address] Kori Dumont PA-C [address] [facility] [place] [address] 02/14/2025 8:00 AM EDT Imaging Radiology [address], [place] [address] [email or web address] [place] [id number] Scheduled Procedures Name Priority Associated Diagnoses Date/Ti [...] 09/10/2023 DISCUSS TOBACCO CESSATION (REFER TO SMARTSET #3905) 01/28/2025 01/29/2024 GFR 01/28/2025 01/29/2024, 08/21, 08/08/2023, [...] this encounter Medical Devices Implanted Type Area Knockout Man Device Identifier Shelf Expiration Date Model / Serial / Lot Cover Nilda Hole 24mm 421.528 - [id number] Implanted:Qty: 1 on 08/20/2021 by Joni Hand III, MD [place] [facility] [place]: Head [employer] 421.528 / / Plate Y Ti Lo Db 6h 21 421.517 - [id number] Implanted:Qty: 1 on 08/20/2021 by Joni Hand III, MD [place] [facility] [place] Right: Head [employer]ILL[employer] 421.517 / / Screw Ti Lo Pro Sd 4mm 400.834 - [id number] Implanted:Qty: 10 on 08/20/2021 by Joni Hand III, MD at [place] [facility] [place] Right: Head [employer]ILL[employer] 400.834 / / [...] Directives occurred with: Not Discussed Care Teams Stock Worker And Deliverer Relationship Specialty Start Date End Date Martin Solorio MD [address] [facility] [place] [address] PCP - General Family Medicine 02/20/21 documented as of this encounter
--- OUTSIDE RECORDS SUMMARY | 2024-02-27 02:24 | External Medical Summary | Summary of Care ---
Author Name Unknown Organization [facility] Address [address] [place] [address] Phone [phone] Care Team Providers Care Zigzag Topstitcher Name Role Phone Martin Solorio MD Primary Care Provider [phone] Reason for Visit * Reason Onset Date Comments Test Results 02/20/2024 Unexpected or In determinate Result Encounter Details Date Type Department Care Team (Late st Contact Info) Description 02/20/2024 Telephone [facility] [address] [place] [address] José Luis Paul IV, PA-C [address] [place] [address] Test Results (Unexpected or Indeterminate [...] region 09/30/2023 Coronary artery disease invo lving [place] coronary artery of [place] heart without angina pectoris 09/30/2023 Pulmonary nodules [...] Miscellaneous Notes * Telephone Encounter - Kori Bailey, ASIYA - 02/24/2024 4:48 PM EDT Received a message from José Luis Paul PA-C stated that she should be seen in [facility] unfortunately as her scan is worse. Called patient back, spouse Kwame answered. He stated that patient is asleep at present. I stated that I was calling back to schedule her for an appointment on Friday03/01/24 at 10:15 am in [facility]. I stated that I spoke with her earlier and was waiting to see if her appointment could be on Friday when she is scheduled to be in [place] for a dermatology appointment but was told she needs to be seen in the [facility] clinic. He stated that she has a lot of appointments and that I should call back tomorrow. I stated that I will. * Telephone Encounter - Kori Bailey LPN - 02/24/2024 3:32 PM EDT Called patient, Patient identified by name and date of . Informed her I was calling to schedule her for an appointment on Friday03/01/24 in [facility] per José Luis Paul PA-C. She stated that she is scheduled for an appointment in [place] on Friday03/02/24 and wanted to know if [...] will be reviewed with patient at upcoming [facility] appt. José Luis Paul IV, PA-C * Telephone Encounter - Kimberlee Miller TECH - 02/20/2024 10:13 PM EDT Hello- The radiologist discovered an unexpected or indeterminate finding on Judy Garcia ([id number]) and asks that you review the following [...] Thank you, MAGI Acuna Client Service Rep Diagnostic Medicine [place] documented in this encounter Plan of Treatment Upcoming Encounters Date Type Department Care Team (Late st Contact Info) Description 03/02/2024 9:45 AM EDT Pharmacy Pharmacy Hematology Oncology [facility] [address] [place] [address] [facility], [facility] Hem/Onc [address] [place] [address] 03/02/2024 2:00 PM EDT Office Visit Dermatology [facility] [address] [place] [address] Jed Swanson MD [address] [place] [address] 05/06/2024 2:45 PM EDT Office [facility] [address] [place] [address] Benja Watkins MD [address] [place] [address] 08/02/2024 8:20 AM EST Office [facility] [address] [place] [phone] Martin Solorio MD [address] [place] [address] 10/05/2024 12:30 PM EDT Telemedicine Care at Home [address] [place] [address] Kori Dumont PA-C [address] [place] [address] 02/14/2025 8:00 AM EDT Imaging Radiology [address] [facility] [place] [id number] Scheduled Procedures Name Priority Associated Diagnoses Date/Ti [...] 09/10/2023 DISCUSS TOBACCO CESSATION (REFER TO SMARTSET #9817) 01/28/2025 01/29/2024 GFR 01/28/2025 01/29/2024, 08/21, 08/08/2023, [...] this encounter Medical Devices Implanted Type Area Integrity Assessor Device Identifier Shelf Expiration Date Model / Serial / Lot Cover Silver Point Hole 24mm 421.528 - [id number] Implanted:Qty: 1 on 08/20/2021 by Joni Hand III[place] [facility] [place]: Head SYNTHES MAXILLOFACIAL 421.528 / / Plate Y Ti Lo Db 6h 21 421.517 - [id number] Implanted:Qty: 1 on 08/20/2021 by Joni Hand III, [place] [facility] [place]: Head SYNTHES MAXILLOFACIAL 421.517 / / Screw Ti Lo Pro Sd 4mm 400.834 - [id number] Implanted:Qty: 10 on 08/20/2021 by Joni Hand III, [place] [facility] [place]: Head SY[employer]ES MAXILLOFACIAL 400.834 / / [...] Directives occurred with: Not Discussed Care Teams Zigzag Topstitcher Relationship Specialty Start Date End Date Martin Solorio MD [address] [facility] [place] [address] PCP - General Family Medicine 02/20/21 documented as of this encounter
--- OUTSIDE RECORDS SUMMARY | 2024-02-27 02:24 | External Medical Summary | Summary of Care ---
Author Name Unknown Organization [facility] Address [address] [place] [address] Phone [phone] Care Team Providers Care Telephone Service Representative Name Role Phone Martin Solorio MD Primary Care Provider [phone] Reason for Visit * Reason Onset Date Comments Test Results 02/20/2024 Unexpected or In determinate Result Encounter Details Date Type Department Care Team (Late st Contact Info) Description 02/20/2024 Telephone [facility] [address] [place] [address] José Luis Paul IV, PA-C [address] [place] [address] Test Results (Unexpected or Indeterminate ... Allergies Active Allergy Reactions Criticality Noted Date Comments Erythromycin 08/15/1997 seizures documented as of this encounter (statuses as of 02/26/2024) Medications Medication Sig Dispensed Refills Start Date [...] as of this encounter (statuses as of 02/26/2024) Active Problems Problem Noted Date Diagnosed Date Cerebral atrophy 09/30/2023 Left sided lacunar infarction 09/30/2023 Spinal stenosis of cervical region 09/30/2023 Coronary artery disease invo lving [place] coronary artery of [place] heart without angina pectoris 09/30/2023 Pulmonary nodules [...] as of this encounter (statuses as of 02/26/2024) Resolved Problems Problem Noted Date Diagnosed Date [...] as of this encounter (statuses as of 02/26/2024) Immunizations Name Administration Dates Next Due COVID-19, [...] Notes * Telephone Encounter - Kori Bailey, BEHAVIORAL HEALTH ASSISTANT - 02/26/2024 1:23 PM EDT Called patient's mobile number, no answer, left message stating that I received an answer from Vinh FROST that stated she should be seen in [facility] on Friday03/01/24. I stated that I have scheduled her for the appointment in [place] at 10:15 am on Friday03/01/24 on D2, she is to take the D elevator to the 2nd floor and that opens into our waiting room. [facility] message sent regarding above. Called patient's home number, no answer, left message stating that I received an answer from José Luis Paul PA-C that stated she should be seen in [facility] on Friday03/01/24. I stated that I have scheduledher for the appointment in [place] at 10:15 am on Friday03/01/24 and sent a [facility] message regarding this. I requested she call me at [phone] with any questions regarding this matter. * Telephone Encounter - Kori Bailey LPN - 02/24/2024 4:48 PM EDT Received a message from José Luis Paul PA-C stated that she should be seen in [facility] unfortunately as her scan is worse. Called patient back, spouse Kwame answered. He stated that patient is asleep at present. I stated that I was calling back to schedule her for an appointment on Friday03/01/24 at 10:15 am in [facility]. I stated that I spoke with her earlier and was waiting to see if her appointment could be on Friday when she is scheduled to be in [place] for a dermatology appointment but was told she needs to be seen in the [facility] clinic. He stated that she has a lot of appointments and that I should call back tomorrow. I stated that I will. * Telephone Encounter - Kori Bailey LPN - 02/24/2024 3:32 PM EDT Called patient, Patient identified by name and date of . Informed her I was calling to schedule her for an appointment on Friday03/01/24 in [facility] per José Luis Paul PA-C. She stated that she is scheduled for an appointment in [place] on Friday03/02/24 and wanted to know if [...] unexpected or indeterminate finding on Judy Garcia ([id number]) and asks that you review the following [...] MAGI Acuna Client Service Rep Diagnostic Medicine [place] documented in this encounter Plan of Treatment Upcoming Encounters Date Type Department Care Team (Late st Contact Info) Description 03/01/2024 10:15 AM EDT Office Visit Neurosurgery, [place] [address] [place] [address] Clinic, Brain Tumor Multidisciplinary [address] [place] [address] 03/02/2024 9:45 AM EDT Pharmacy Pharmacy Hematology Oncology [facility] [place] [address] [place] [address] [facility] [address] [place] [address] 03/02/2024 2:00 PM EDT Office Visit Dermatology [address] [place] [address] Jed Swanson MD [address] [place] [address] 05/06/2024 2:45 PM EDT Office Visit Hematology/Oncology [facility] [address] [facility] [place] [phone] Benja Watkins MD [address] [facility] [place] [address] 08/02/2024 8:20 AM EST Office Visit [facility] [address] [place] [phone] Martin Solorio MD [address] [place] [address] 10/05/2024 12:30 PM EDT Telemedicine Care at Home [address] [place] [address] Kori Dumont PA-C [address] [place] [address] 02/14/2025 8:00 AM EDT Imaging Radiology [address] [place] [address] Scheduled Procedures Name Priority Associated Diagnoses Date/Ti [...] this encounter Medical Devices Implanted Type Area Rotary Rock Drilling Machine Operator Device Identifier Shelf Expiration Date Model / Serial / Lot Cover [place] Hole 24mm 421.528 - [id number] Implanted:Qty: 1 on 08/20/2021 by Joni Hand III, MD at [place] [facility] Right: Head SY[employer]ES MAXILLOFACIAL 421.528 / / Plate Y Ti Lo Db 6h 21 421.517 - [id number] Implanted:Qty: 1 on 08/20/2021 by Joni Hand III, MD at [place] [facility] Right: Head SYNTHES MAXILLOFACIAL 421.517 / / Screw Ti Lo Pro Sd 4mm 400.834 - [id number] Implanted:Qty: 10 on 08/20/2021 by Joni Hand III, MD at [place] [facility] Right: Head SYNTHES MAXILLOFACIAL 400.834 / / [...] Directives occurred with: Not Discussed Care Teams Telephone Service Representative Relationship Specialty Start Date End Date Martin Solorio MD [address] [place] [address] PCP - General Family Medicine 02/20/21 documented as of this encounter
--- OUTSIDE RECORDS SUMMARY | 2024-02-27 02:24 | External Medical Summary | Summary of Care ---
Author Name Unknown Organization [facility] Address [address] [place] [address] Phone [phone] Care Team Providers Care Gas Torch Brazier Name Role Phone Martin Solorio MD Primary Care Provider [phone] Reason for Visit * Reason Onset Date Comments Test Results 02/20/2024 Unexpected or In determinate Result Encounter Details Date Type Department Care Team (Late st Contact Info) Description 02/20/2024 Telephone [facility] [address] [place] [address] José Luis Paul IV, PA-C [address] [place] [address] Test Results (Unexpected or Indeterminate ... Allergies Active Allergy Reactions Criticality Noted Date Comments Erythromycin 08/15/1997 seizures documented as of this encounter (statuses as of 02/25/2024) Medications Medication Sig Dispensed Refills Start Date [...] as of this encounter (statuses as of 02/25/2024) Active Problems Problem Noted Date Diagnosed Date Cerebral atrophy 09/30/2023 Left sided lacunar infarction 09/30/2023 Spinal stenosis of cervical region 09/30/2023 Coronary artery disease invo lving [place] coronary artery of [place] heart without angina pectoris 09/30/2023 Pulmonary nodules [...] as of this encounter (statuses as of 02/25/2024) Resolved Problems Problem Noted Date Diagnosed Date [...] as of this encounter (statuses as of 02/25/2024) Immunizations Name Administration Dates Next Due COVID-19, [...] stated that she should be seen in [facility] unfortunately as her scan is worse. Called patient back, spouse Kwame answered. He stated that patient is asleep at present. I stated that I was calling back to schedule her for an appointment on Friday03/01/24 at 10:15 am in [facility]. I stated that I spoke with her earlier and was waiting to see if her appointment could be on Friday when she is scheduled to be in [place] for a dermatology appointment but was told she needs to be seen in the [facility] clinic. He stated that she has a lot of appointments and that I should call back tomorrow. I stated that I will. * Telephone Encounter - Kori Bailey LPN - 02/24/2024 3:32 PM EDT Called patient, Patient identified by name and date of . Informed her I was calling to schedule her for an appointment on Friday03/01/24 in [facility] per José Luis Paul PA-C. She stated that she is scheduled for an appointment in [place] on Friday03/02/24 and wanted to know if [...] will be reviewed with patient at upcoming [facility] appt. José Luis Paul IV, PA-C * Telephone Encounter - Kimberlee Miller TECH - 02/20/2024 10:13 PM EDT Hello- The radiologist discovered an unexpected or indeterminate finding on Judy Garcia ([id number]) and asks that you review the following [...] MAGI Acuna Client Service Rep Diagnostic Medicine [place] documented in this encounter Plan of Treatment Upcoming Encounters Date Type Department Care Team (Late st Contact Info) Description 03/02/2024 9:45 AM EDT Pharmacy Pharmacy Hematology Oncology [facility] [address] [place] [address] [facility], [facility] Hem[facility]Onc [address] [place] [address] 03/02/2024 2:00 PM EDT Office Visit Dermatology [facility] [address] [place] [address] Jed Swanson MD [address] [place] [address] 05/06/2024 2:45 PM EDT Office Visit Hematology/Oncology [facility] 200 [facility] [place] [address] Benja Watkins MD [address] [place] [address] 08/02/2024 8:20 AM EST Office Visit [facility] [address] [place] [phone] Martin Solorio MD [address] [place] [address] 10/05/2024 12:30 PM EDT Telemedicine Care at Home [address] [place] [address] Kori Dumont PA-C [address] [place] [address] 02/14/2025 8:00 AM EDT Imaging Radiology [address] 132 [facility] [place] [id number] Scheduled Procedures Name Priority Associated Diagnoses Date/Ti [...] 09/10/2023 DISCUSS TOBACCO CESSATION (REFER TO SMARTSET #3705) 01/28/2025 01/29/2024 GFR 01/28/2025 01/29/2024, 08/21, 08/08/2023, [...] this encounter Medical Devices Implanted Type Area Weigh Box Tender Device Identifier Shelf Expiration Date Model / Serial / Lot Cover [place] Hole 24mm 421.528 - [id number] Implanted:Qty: 1 on 08/20/2021 by Joni Hand III, MD at [place] [facility] Right: Head SYN[employer]ES MAXILLOFACIAL 421.528 / / Plate Y Ti Lo Db 6h 21 421.517 - [id number] Implanted:Qty: 1 on 08/20/2021 by Joni Hand III, MD at [place] [facility] Right: Head SYN[employer]ES MAXILLOFACIAL 421.517 / / Screw Ti Lo Pro Sd 4mm 400.834 - [id number] Implanted:Qty: 10 on 08/20/2021 by Joni Hand III, MD at [place] [facility] Right: Head SYNTHES [...] Directives occurred with: Not Discussed Care Teams Gas Torch Brazier Relationship Specialty Start Date End Date Martin Solorio MD [address] [facility] [place] [address] PCP - General Family Medicine 02/20/21 documented as of this encounter
--- OUTSIDE RECORDS SUMMARY | 2024-02-27 02:25 | External Medical Summary | Summary of Care ---
Author Name Unknown Organization [facility] Address [address] [place] [address] Phone [phone] Care Team Providers Care Winding Inspector And Tester Name Role Phone Martin Solorio MD Primary Care Provider [phone] Reason for Visit * Reason Comments NEW PATIENT Referred from pcp- h x of melanoma, pt has a growth on her L. 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) Benja Watkins MD [address] [place] [address] Referral ID Status Reason Start Date Expiration Date Visits Requested Visits Authorized [id number] Authorized Specialty Services Required 02/04/2024 [id number] Encounter Details Date Type Department Care Team (Late st Contact Info) Description 02/20/2024 10:00 AM EDT Office Visit Dermatology [place] [facility] [address] [place] [address] Vesta Avila PA-C [address] [place] [address] Skin tumor* Allergies Active Allergy Reactions Criticality Noted Date Comments Erythromycin 08/15/1997 seizures documented as of this encounter (statuses as of 02/20/2024) Medications Medication Sig Dispensed Refills Start Date [...] as of this encounter (statuses as of 02/20/2024) Active Problems Problem Noted Date Diagnosed Date Cerebral atrophy 09/30/2023 Left sided lacunar infarction 09/30/2023 Spinal stenosis of cervical region 09/30/2023 Coronary artery disease invo lving [place] coronary artery of [place] heart without angina pectoris 09/30/2023 Pulmonary nodules 09/30/2023 Centrilobular emphysema 09/30/2023 Left atrial enlargement 09/30/2023 Mild mitral regurgitation 09/30/2023 Mild tricuspid regurgitation 09/30/2023 Mild pulmonary valve regurgitation 09/30/2023 Brain lesion 09/08/2023 Malignant neoplasm metastatic to brain Hx of melanoma of skin 08/26/2019 Overview: Melanoma involving the left leg, S/P resection (12/26/2017 -CT of invasion 2.7 mm level 4, T3b (presence of ulceration) -3/ sentinel lymph nodes positive for metastatic disease [...] as of this encounter (statuses as of 02/20/2024) Resolved Problems Problem Noted Date Diagnosed Date [...] inactive term ACUTE SINUSITIS NOS 09/06/2006 09/08/19 09 Overview: Resolved per Benign Acute Dxs Protocol #3 ACUTE URI NOS 09/06/2006 09/08/2008 Overview: Resolved per Benign Acute Dxs Protocol #3 Cough 09/06/2006 04/13/2011 PURE HYPERCHOLESTEROLEM 04/09/200506/20 Overview: Per Lipid Taxonomy. Acute cholecystitis 01/24/2004 04/13/20 11 BACKACHE NOS 04/26/2003 11/27/2010 Tension headache 04/13/2011 documented as of this encounter (statuses as of 02/20/2024) Immunizations Name Administration Dates Next Due COVID-19, [...] 09/16/2023 Does the household have a re lar source of income? (Household - for ages [...] No 09/21/2021 documented as of this encounter Progress Notes * Anahi Bruno MD - 02/20/2024 4:22 PM EDT I have reviewed the relevant notes and photographs taken by AVEL Vega. I have reviewed and agree with the assessment and plan. Anahi Bruno MD 02/20/2024 4:22 PM * Vesta Avila PA-C - 02/20/2024 10:00 AM EDT SUBJECTIVE: History of Present Illness: Judy Garcia is a 63 year old female seen today for follow up of lesions. Date Last Appointment: 12/07/2018 (in office), Visit date not found (telemedicine) Ida is here for 2 lesions present on L clavicle and R upper back x years. They are growing. She has a hx of metastatic melanoma, follows with hem/onc. I do not see any skin check since 2020 in the chart since she cancelled her last visit and did not reschedule. She does not believe she has had a skin check outside of [facility] but is not sure. REVIEW OF SYSTEMS: SKIN: No other new or changing moles. HEME/LYMPH: No new or enlarging lumps or bumps. MEDICA TIONS: Current Outpatient Medications Medication Sig Dispense Refill MULTIVITAMINS PO TABS Take 1 Tablet by mouth every morning. 0 traZODone HCl 100 MG Oral Tablet (Desyrel) TAKE 1 & 1/2 (ONE & ONE-HALF) TABLETS BY MOUTH AT BEDTIME 45 Tablet 5 Losartan Potassium 50 MG Oral Tablet (Cozaar) Take 1 Tablet by mouth in the morning. 90 Tablet 3 Atorvastatin Calcium 20 MG Oral Tablet (Lipitor) Take 1 Tablet by mouth every evening. 90 Tablet 3 Dabrafenib Mesylate 75 MG Oral Capsule (Tafinlar) Take 1 Capsule by mouth in the morning and 1 Capsule before bedtime. 120 Capsule 5 PARoxetine HCl 40 MG Oral Tablet (pAXil) TAKE 1 TABLET BY MOUTH IN THE MORNING 90 Tablet 1 Trametinib Dimethyl Sulfoxide 0.5 MG Oral Tablet (Mekinist) Take 3 tablets (1.5mg) by mouth in the morning. 90 Tablet 5 Levothyroxine Sodium 200 MCG Oral Tablet TAKE 1 TABLET BY MOUTH ONCE DAILY IN THE MORNING AT LEAST 30 MIN BEFORE BREAKFAST OR OTHER MEDS 90 Tablet 1 Triamcinolone Acetonide 0.1 % External Cream (Aristocort) Apply topically to affected area 2 times a day. To affected area. 80 g 5 carBAMazepine ER 200 MG Oral Tablet Extended Release 12 Hour (Tegretol-Xr) TAKE 2 TABLETS BY MOUTH IN THE MORNING AND 2 IN THE EVENING Ondansetron HCl 8 MG Oral Tablet (Zofran) TAKE 1 TABLET BY MOUTH TWICE DAILY 30 MIN PRIOR TO ADMINSTRATION OF TAFINLAR 60 Tablet 2 No current facility-administered medications for this visit. ALLERG IES: Erythromycin OBJECTIVE: GEN: Healthy, alert, no distress, appears oriented, pleasant, and cooperative. SKIN: Detailed exam of neck and back completed and are normal except: 1. L clavicle- 1.2cm keratotic plaque atop pink nodule 2. R back- 1cm keratotic plaque atop pink nodule ASSESS MENT/PLAN: 1. Favor ISK, r.o malignancy 2. Favor ISK, r/o malignancy. Biopsies of the lesions noted above to establish and confirm diagnosis. The procedures, risks, benefits, alternatives and expected outcomes were discussed with the patient and consent was obtained. Time out called. Patient identified, procedure verified, site identified and verified. Patient and staff present in agreement. Areas prepped with alcohol and anesthetized with 0.5% lidocaine with epinephrine at 1:200,000 concentration. Shave biopsies of lesions performed. 20% AlCl and bandaging applied. Specimens sent to pathology. Patient instructed in routine post-op care. Follow-up: needs skin check, complex There were no barriers tolearning and no other pain was related to today's visit. The patient and/or person accompanying patient demonstrates understanding of the visit and treatment. Vesta Avila PA-C 02/20/2024 10:34 AM documented in this encounter Nursing Notes * Nelida Sheets LPN - 02/20/2024 9:54 AM EDT Patient identified by name and date of . Do you have any concerns about pain management for today's visit? No Living Will or Advance Directive for Health Care as noted on problem list. [facility] is a way you can talk to your provider online through e-mail. Would you like to sign up? I can activate it for you? ALREADY ACTIVE Chief Complaint Patient presents with NEW PATIENT Referred from pcp- hx of melanoma, pt has a growth on her L. Collar bone and back that should be evaluated documented in this encounter Miscellaneous Notes * Addendum Note - Nelida Sheets LPN - 02/20/2024 2:47 PM EDTAddended by: NELIDA SHEETS on: 02/20/2024 02:47 PM Modules accepted: Orders documented in this encounter Plan of Treatment Upcoming Encounters Date Type Department Care Team (Late st Contact Info) Description 03/02/2024 9:45 AM EDT Pharmacy Pharmacy Hematology Oncology [facility] [address] [place] [address] [facility], [facility] Hem/Onc [address] [place] [address] 03/02/2024 2:00 PM EDT Office Visit Dermatology [address] [address] Jed Swanson MD [address] [place] [address] 05/06/2024 2:45 PM EDT Office Visit Hematology/Oncology [employer] [address] [place] [phone] Benja Watkins MD [address] [place] [address] 08/02/2024 8:20 AM EST Office Visit [address] [address] Martin Solorio MD [address] [place] [address] 10/05/2024 12:30 PM EDT Telemedicine Care at Home [address] [place] [address] Kori Dumont PA-C [address] [place], [place] [id number] 02/14/2025 8:00 AM EDT Imaging Radiology [facility] [address] [facility] [place] [address] [facility] [place] [address] Pending Results Name Type Priority Associated Diagnoses Date /Time SURGICAL PATHOLOGY Pathology Routine Skin tumor 02/20/2024 10:39 AM EDT Scheduled Procedures Name Priority Associated Diagnoses Date/Ti [...] this encounter Medical Devices Implanted Type Area Fashion Coordinator Device Identifier Shelf Expiration Date Model / Serial / Lot Cover [place] Hole 24mm 421.528 - [id number] Implanted:Qty: 1 on 08/20/2021 by Joni Hand III, MD at [place] [facility] [place] Right: Head SYNTHES MAXILLOFACIAL 421.528 / / Plate Y Ti Lo Db 6h 21 421.517 - [id number] Implanted:Qty: 1 on 08/20/2021 by Joni Hand III, MD at OR [facility] [place] Right: Head SYNTHES MAXILLOFACIAL 421.517 / / Screw Ti Lo Pro Sd 4mm 400.834 - [id number] Implanted:Qty: 10 on 08/20/2021 by Joni Hand III, MD at OR [facility] [place] Right: Head SYNTHES MAXILLOFACIAL 400.834 / / documented as of this encounter Procedures Procedure Name Priority Date/Time Associated Diagnosis Comments DERM IMAGE (SITE) Routine 02/20/2024 Skin tumor documented in this encounter Results * DERM IMAGE (SITE) (02/20/2024) 02/20/2024 Vesta Avila PA-C DIGITAL PHOTOGR APHY documented in this encounter Visit Diagnoses Diagnosis Skin tumor- Primary Neoplasm of uncertain behavior of skin Screening mammogram for breast cancer documented in this encounter Advance Directives * Full Code [...] Directives occurred with: Not Discussed Care Teams Winding Inspector And Tester Relationship Specialty Start Date End Date Martin Solorio MD [address] [facility] [place] [address] PCP - General Family Medicine 02/20/21 documented as of this encounter
--- OUTSIDE RECORDS SUMMARY | 2024-02-27 02:25 | External Medical Summary | Summary of Care ---
Author Name Unknown Organization [facility] Address [address] [facility] [address] Phone [phone] Care Team Providers Care Associate Professor Of Chemistry Name Role Phone Martin Solorio MD Primary Care Provider [phone] Reason for Visit * Reason Comments eRx-Medication Refill Encounter Details Date Type Department Care Team (Late st Contact Info) Description 02/11/2024 Refill Hematology/Oncology [facility] [place] [address] [facility] [place] [address] Alvaro Coyle MD [address] [facility] [place] [address] Malignant melanoma of left lower extremity (HCC); Malignant 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) Allergies Active Allergy Reactions Criticality Noted Date Comments Erythromycin 08/15/1997 seizures documented as of this encounter (statuses as of 02/11/2024) Medications Medication Sig Dispensed Refills Start Date End Date Status MULTIVITAMINS PO TABS Take 1 Tablet by mouth every morning. 0 8 Active traZODone HCl 100 MG Oral Tablet (Desyrel)Indicati ons:Insomnia, unspecified type TAKE 1 & 1/2 (ONE & ONE-HALF) TABLETS BY MOUTH AT BEDTIME 45 Tablet 5 3 Active Losartan Potassium 50 MG Oral Tablet (Cozaar)Indicatio ns:HTN, goal below 130/80 Take 1 Tablet by mouth in the morning. 90 Tablet 3 4 Active Atorvastatin Calcium 20 MG Oral Tablet (Lipitor)Indicati ons:Dyslipidemia Take 1 Tablet by mouth every evening. 90 Tablet 3 4 Active Dabrafenib Mesylate 75 MG Oral Capsule (Tafinlar) Take 1 Capsule by mouth in the morning and 1 Capsule before bedtime. 120 Capsule 5 4 Active PARoxetine HCl 40 MG Oral Tablet (pAXil)Indication s:Adjustment disorder with depressed mood TAKE 1 TABLET BY MOUTH IN THE MORNING 90 Tablet 1 4 Active Trametinib Dimethyl Sulfoxide 0.5 MG Oral Tablet (Mekinist)Indicat ions:Malignant melanoma of left lower extremity (HCC) Take 3 tablets (1.5mg) by mouth in the morning. 90 Tablet 5 4 Active Levothyroxine Sodium 200 MCG Oral Tablet TAKE 1 TABLET BY MOUTH ONCE DAILY IN THE MORNING AT LEAST 30 MIN BEFORE BREAKFAST OR OTHER MEDS 90 Tablet 1 4 Active Triamcinolone Acetonide 0.1 % External Cream (Aristocort) Apply topically to affected area 2 times a day. To affected area. 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) TAKE 2 TABLETS BY MOUTH IN THE MORNING AND 2 IN THE EVENING 4 Active Ondansetron HCl 8 MG Oral Tablet (Zofran)Indicatio ns:Malignant melanoma of left lower extremity (HCC),Malignant 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) TAKE 1 TABLET BY MOUTH TWICE DAILY 30 MIN PRIOR TO ADMINSTRATION OF TAFINLAR 60 Tablet 2 4 Active Ondansetron HCl 8 MG Oral Tablet (Zofran)Indicatio ns:Malignant melanoma of left lower extremity (HCC),Malignant 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) TAKE 1 TABLET BY MOUTH TWICE DAILY 30 MIN PRIOR TO ADMINISTRATION OF TAFINLAR 60 Tablet 4 024 Discontinued documented as of this encounter (statuses as of 02/11/2024) Active Problems Problem Noted Date Diagnosed Date Cerebral atrophy 09/30/2023 Left sided lacunar infarction 09/30/2023 Spinal stenosis of cervical region 09/30/2023 Coronary artery disease invo lving koi coronary artery of koi heart without angina pectoris 09/30/2023 Pulmonary nodules 09/30/2023 Centrilobular emphysema 09/30/2023 Left atrial enlargement 09/30/2023 Mild mitral regurgitation 09/30/2023 Mild tricuspid regurgitation 09/30/2023 Mild pulmonary valve regurgitation 09/30/2023 Brain lesion 09/08/2023 Malignant neoplasm metastatic to brain Hx of melanoma of skin 08/26/2019 Overview: Melanoma involving the left leg, S/P resection (12/26/2017 -CT of invasion 2.7 mm level 4, T3b (presence of ulceration) -09/20 sentinel lymph nodes positive for metastatic disease [...] 01/19/2018:Stage IIIC(pT3b, pN2a, cM0) - Signed by Jessica Watkins MD on 01/19/2018 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 Dyslipidemia 04/13/2011 Tobacco use disorder 09/06/2006 Chronic rhinitis 09/06/2006 Adjustment disorder with depressed mood 07/26/18 99 Migraine with aura documented as of this encounter (statuses as of 02/11/2024) Resolved Problems Problem Noted Date Diagnosed Date [...] as of this encounter (statuses as of 02/11/2024) Immunizations Name Administration Dates Next Due COVID-19, [...] encounter Miscellaneous Notes * Telephone Encounter - Sharon Sprague RN - 02/11/2024 3:14 PM EDTSigned Prescriptions: Disp Refills Ondansetron HCl 8 MG Oral Tablet (Zofran) 60 Tab*2 Sig: TAKE 1 TABLET BY MOUTH TWICE DAILY 30 MIN PRIOR TO ADMINSTRATION OF TAFINLARAuthorizing Provider: JESSICA WATKINS * Telephone Encounter - Jessica Watkins MD - 02/11/2024 3:13 PM EDT E-prescribed Jessica Watkins MD Hem/Onc * Telephone Encounter - Bj Lara RN - 02/11/2024 2:23 PM EDTPending Prescriptions: Disp Refills Ondansetron HCl 8 MG Oral Tablet (Zofran) 60 Tab*2 Sig: TAKE 1 TABLET BY MOUTH TWICE DAILY 30 MIN PRIOR TO ADMINSTRATION OF TAFINLAR * Telephone Encounter - Bj Lara RN - 02/11/2024 2:18 PM EDT Last prescribed 12/23/23 for 30 day supply. documented in this encounter Plan of Treatment Upcoming Encounters Date Type Department Care Team (Late st Contact Info) Description 02/13/2024 8:00 AM EDT Imaging Radiology [address] [facility] [place] [address] 02/20/2024 10:00 AM EDT Office Visit Dermatology [facility]a More[facility] [place] [address] [place] [address] Vesta Avila PA-C [address] [place] [address] 02/20/2024 2:00 PM EDT Imaging Radiology [address] [facility] [place] [address] 02/20/2024 2:00 PM EDT Imaging Radiology [address] [facility] [place] [address] 03/02/2024 9:45 AM EDT Pharmacy Pharmacy Hematology Oncology [facility] [address] [place] [address] [facility], [facility] Hem/Onc [address] [place] [address] 05/06/2024 2:45 PM EDT Office Visit Hematology[facility] [address] [facility] [place] [phone] Jessica Watkins MD [address] [facility] [place] [address] 08/02/2024 8:20 AM EST Office Visit [address] [phone] Martin Solorio MD [address] [place] [address] 10/05/2024 12:30 PM EDT Telemedicine Care at Home [address] [place] [address] Kori Dumont PA-C [address] [place] [address] Scheduled Procedures Name Priority Associated Diagnoses Date/Ti me COLONOSCOPY FLEXIBLE PROXIMA L DIAGNOSTIC Recall Family history of colon cancer Health Maintenance Due Date Last Done Comments Alpha-1 Antitrypsin 1976 Cologuard 2003 Fecal Occult Blood Test 2003 Sigmoidoscopy 2003 Mammogram 02/06/2022 02/06/2021, 08/0 10/2019, 02/01/2020, Additional history exists COVID-19 Vaccine ( season) 2023 06/26/2023, 10/03/2020, 09/12/2020 *CXR OR CT FOR COPD EVER 02/01/2024 Influenza Vaccine (FLU shot) (#1) 2024 03/08/2023, [...] 09/10/2023 DISCUSS TOBACCO CESSATION (REFER TO SMARTSET #2025) 01/28/2025 01/29/2024 GFR 01/28/2025 01/29/2024, 08/21, 08/08/2023, Additional history exists TSH 01/28/2025 01/29/2024, 07/21, 07/25/2023, Additional history exists Colonoscopy 06/05/2026 06/05/2021, 05/21, 08/10/2010 Colorectal Cancer Screening 06/05/2026 Albumin/Creatinine Ratio 07/25/2026 07/25/2023 Diabetes Screening 01/28/2027 01/29/2024, 0 09/08/2023, 09/03/2023, Additional history exists DTaP,Tdap,and Td Vaccines (2 - Td or Tdap) 02/20/2031 02/20/2021, 04/20/2007 *BASELINE EKG FOR HTN Completed 12/16/2017 RETIRED - COLONOSCOPY-EVERY 5 YRS AGES 18-100 [...] this encounter Medical Devices Implanted Type Area Donor Relations Associate Device Identifier Shelf Expiration Date Model / Serial / Lot Cover [place] Hole 24mm 421.528 - [id number] Implanted:Qty: 1 on 08/20/2021 by Joni Hand III, MD at OR [facility] [place] Right: Head SYNTHES MAXILLOFACIAL 421.528 / / Plate Y Ti Lo Db 6h 21 421.517 - [id number] Implanted:Qty: 1 on 08/20/2021 by Joni Hand III, MD at OR [facility] [place] Right: Head SYNTHES MAXILLOFACIAL 421.517 / / Screw Ti Lo Pro Sd 4mm 400.834 - [id number] Implanted:Qty: 10 on 08/20/2021 by Joni Hand III, MD at OR [facility] [place] Right: Head SYNTHES MAXILLOFACIAL 400.834 / / documented as of this encounter Visit Diagnoses Diagnosis Malignant melanoma of left lower extremity (HCC) 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
--- OUTSIDE RECORDS SUMMARY | 2024-02-27 02:25 | External Medical Summary | Summary of Care ---
Author Name Unknown Organization [facility] Address [address] [place] [address] Phone [phone] Care Team Providers Care Veterinary Receptionist Name Role Phone Martin Solorio MD Primary Care Provider [phone] Reason for Visit * Reason Comments NEW [...] (HCC) Benja Watkins MD [address] [place] [address] Referral ID Status Reason Start Date Expiration Date Visits Requested Visits Authorized [id number] Authorized Specialty Services Required 02/04/[phone] Encounter Details Date Type Department Care Team (Late st Contact Info) Description 02/20/2024 10:00 AM EDT Office Visit Dermatology [place] [facility] [address] [place] [address] Vesta Avila PA-C [address] [place] [address] Skin tumor* Allergies Active Allergy Reactions Criticality [...] region 09/30/2023 Coronary artery disease invo lving [place]' coronary artery of [place]' heart without angina pectoris 09/30/2023 Pulmonary nodules [...] as of this encounter Progress Notes * Vesta Avila PA-C - 02/20/2024 10:00 [...] has had a skin check outside of [facility] but is not sure. REVIEW OF SYSTEMS: [...] Health Care as noted on problem list. [facility] is a way you can talk to your provider online through e-mail. Would you like to sign up? I can activate it for you? ALREADY ACTIVE Chief Complaint Patient presents with NEW PATIENT Referred from pcp- hx of melanoma, pt has a growth on her L. Collar bone and back that should be evaluated documented in this encounter Plan of Treatment Upcoming Encounters Date Type Department Care Team (Late st Contact Info) Description 02/20/2024 2:00 PM EDT Imaging Radiology [address] [facility] [address] 03/02/2024 9:45 AM EDT Pharmacy Pharmacy Hematology Oncology [facility] [address] [place] [address] [facility], [facility] Hem/Onc [address] [place] [address] 03/02/2024 2:00 PM EDT Office Visit Dermatology [facility] [address] [place] [address] Jed Swanson MD [address] [place], [place] [id number] 05/06/2024 2:45 PM EDT Office Visit Hematology/Oncology [facility] 200 [facility] [place] [facility] [place] [phone] Benja Watkins MD 200 [place] [address] 08/02/2024 8:20 AM EST Office Visit [facility] [address] [place] [phone] Martin Solorio MD [address] [place] [address] 10/05/2024 12:30 PM EDT Telemedicine Care at Home [address] [place] [address] Kori Dumont PA-C [address] [place] [address] 02/14/2025 8:00 AM EDT Imaging Radiology [address] 132 [facility] [place] [address] Pending Results Name Type Priority Associated Diagnoses [...] 09/10/2023 DISCUSS TOBACCO CESSATION (REFER TO SMARTSET #9482) 01/28/2025 01/29/2024 GFR 01/28/2025 01/29/2024, 08/21, 08/08/2023, [...] this encounter Medical Devices Implanted Type Area Museum Curator Device Identifier Shelf Expiration Date Model / Serial / Lot Cover [place] Hole 24mm 421.528 - [id number] Implanted:Qty: 1 on 08/20/2021 by Joni Hand III, [place] [facility] [place]: Head SY[employer]ES MAXILLOFACIAL 421.528 / / Plate Y Ti Lo Db 6h 21 421.517 - [id number] Implanted:Qty: 1 on 08/20/2021 by Joni Hand III, [place] [facility] [place]: Head SY[employer]ES MAXILLOFACIAL 421.517 / / Screw Ti Lo Pro Sd 4mm 400.834 - [id number] Implanted:Qty: 10 on 08/20/2021 by Joni Hand III, [place] [facility] [place]: Head SYNTHES MAXILLOFACIAL 400.834 / / documented as of this encounter Visit Diagnoses Diagnosis Skin tumor- [...] Directives occurred with: Not Discussed Care Teams Veterinary Receptionist Relationship Specialty Start Date End Date Martin Solorio MD [address] [facility] [place] [address] PCP - General Family Medicine 02/20/21 documented as of this encounter
--- OUTSIDE RECORDS SUMMARY | 2024-02-27 02:25 | External Medical Summary | Summary of Care ---
Author Name Unknown Organization [facility] Address [address] [place] [address] Phone [phone] Care Team Providers Care Cyber Reverse Engineer Name Role Phone Martin Solorio MD Primary Care Provider [phone] Reason for Visit * Reason Onset Date Comments Test Results 02/20/2024 Unexpected or In determinate Result Encounter Details Date Type Department Care Team (Late st Contact Info) Description 02/20/2024 Telephone [facility] [address] [place] [address] José Luis Paul IV, PA-C [address] [place] [address] Test Results (Unexpected or Indeterminate [...] region 09/30/2023 Coronary artery disease invo lving [place] coronary artery of [place] heart without angina pectoris 09/30/2023 Pulmonary nodules [...] encounter Miscellaneous Notes * Telephone Encounter - Paul Kimberlee MAGI - 02/20/2024 10:13 PM EDT Hello- The radiologist discovered an unexpected or indeterminate finding on Judy Garcia ([id number]) and asks that you review the following [...] MAGI Acuna Client Service Rep Diagnostic Medicine Elbert documented in this encounter Plan of Treatment Upcoming Encounters Date Type Department Care Team (Late st Contact Info) Description 03/02/2024 9:45 AM EDT Pharmacy Pharmacy Hematology Oncology [facility] [address] [place] [address] [facility], [facility] Hem/Onc [address] [place] [address] 03/02/2024 2:00 PM EDT Office Visit [facility] [address] [place] [address] Jed Swanson MD 16 [place] [address] 05/06/2024 2:45 PM EDT Office Visit Hematology/Oncology [facility] 200 [place] [address] Benja Watkins MD 200 [place] [address] 08/02/2024 8:20 AM EST Office Visit [facility] [address] [place] [phone] Martin Solorio MD [address] [place] [address] 10/05/2024 12:30 PM EDT Telemedicine Care at Home [address] [place], [place] [phone] Kori Dumont PA-C [address] [place] [address] 02/14/2025 8:00 AM EDT Imaging Radiology [address], [place] 132 [facility] [place] [address] Scheduled Procedures Name Priority Associated Diagnoses Date/Ti [...] 09/10/2023 DISCUSS TOBACCO CESSATION (REFER TO SMARTSET #0488) 01/28/2025 01/29/2024 GFR 01/28/2025 01/29/2024, 08/21, 08/08/2023, [...] this encounter Medical Devices Implanted Type Area Dressmaker Or Tailor Device Identifier Shelf Expiration Date Model / Serial / Lot Cover Nilda Hole 24mm 421.528 - [id number] Implanted:Qty: 1 on 08/20/2021 by Joni Hand III, MD at [place] [facility] Right: Head SYNTHES MAXILLOFACIAL 421.528 / / Plate Y Ti Lo Db 6h 21 421.517 - [id number] Implanted:Qty: 1 on 08/20/2021 by Joni Hand III, MD at OR [facility] Right: Head SYNTHES MAXILLOFACIAL 421.517 / / Screw Ti Lo Pro Sd 4mm 400.834 - [id number] Implanted:Qty: 10 on 08/20/2021 by Joni Hand III, MD at OR [facility] Right: Head SYNTHES MAXILLOFACIAL 400.834 [...] Directives occurred with: Not Discussed Care Teams Cyber Reverse Engineer Relationship Specialty Start Date End Date Martin Solorio MD [address] [facility] [place] [address] PCP - General Family Medicine 02/20/21 documented as of this encounter
--- OUTSIDE RECORDS SUMMARY | 2024-02-27 02:25 | External Medical Summary | Summary of Care ---
Author Name Unknown Organization [facility] Address [address] [place] [address] Phone [phone] Care Team Providers Care Rod Mill Tender Name Role Phone Martin Solorio MD Primary Care Provider Reason for Visit * Reason Comments NEW [...] (HCC) Benja Watkins MD [address] [place] [address] Referral ID Status Reason Start Date Expiration Date Visits Requested Visits Authorized [id number] Authorized Specialty Services Required 02/04/2024 [id number] Encounter Details Date Type Department Care Team (Late st Contact Info) Description 02/20/2024 10:00 AM EDT Office Visit [facility]ology [facility] [address] [place] [address] Vesta Avila PA-C [address] [place] [address] Skin tumor* Allergies Active Allergy Reactions Criticality [...] region 09/30/2023 Coronary artery disease invo lving [place] coronary artery of [place] heart without angina pectoris 09/30/2023 Pulmonary nodules [...] has had a skin check outside of [facility] but is not sure. REVIEW OF SYSTEMS: [...] Health Care as noted on problem list. [employer] is a way you can talk to [...] 9:45 AM EDT Pharmacy Pharmacy Hematology Oncology [facility] [address] [place] [address] [facility], [facility] Clinic Hem/Onc [facility] [address] 03/02/2024 2:00 PM EDT Office Visit Dermatology [address] [address] Jed Swanson MD 16 [place] [address] 05/06/2024 2:45 PM EDT Office Visit Hematology/Oncology [facility] [address] [place] [phone] Benja Watkins MD 200 [place] [address] 08/02/2024 8:20 AM EST Office Visit [facility] [address] [place] [phone] Martin Solorio MD [address] [place] [address] 10/05/2024 12:30 PM EDT Telemedicine Care at Home [facility] [place] [address] Kori Dumont PA-C [address] [place] [address] 02/14/2025 8:00 AM EDT Imaging Radiology [facility] 1st [facility] 132 [facility] [place] SOU[place] Pending Results Name Type Priority Associated Diagnoses [...] 09/10/2023 DISCUSS TOBACCO CESSATION (REFER TO SMARTSET #0451) 01/28/2025 01/29/2024 GFR 01/28/2025 01/29/2024, 08/21, 08/08/2023, [...] this encounter Medical Devices Implanted Type Area Negotiations Director Device Identifier Shelf Expiration Date Model / Serial / Lot Cover [place] Hole 24mm 421.528 - [id number] Implanted:Qty: 1 on 08/20/2021 by Joni Hand III, MD at [place] [facility] Right: Head SYNTHES MAXILLOFACIAL 421.528 / / Plate Y Ti Lo Db 6h 21 421.517 - [id number] Implanted:Qty: 1 on 08/20/2021 by Joni Hand III, MD at [place] [facility] Right: Head SYNTHES MAXILLOFACIAL 421.517 / / Screw Ti Lo Pro Sd 4mm 400.834 - [id number] Implanted:Qty: 10 on 08/20/2021 by Joni Hand III, MD at [place] [facility] Right: Head SYNTHES MAXILLOFACIAL 400.834 / / [...] Directives occurred with: Not Discussed Care Teams Rod Mill Tender Relationship Specialty Start Date End Date Martin Solorio MD [address] [place] [address] PCP - General Family Medicine 02/20/21 documented as of this encounter
--- OUTSIDE RECORDS SUMMARY | 2024-02-27 02:26 | External Medical Summary | Summary of Care ---
Author Name Unknown Organization [facility] Address [address] [place] [address] Phone [phone] Care Team Providers Care Chemical Research Engineer Name Role Phone Baldev Solorio MD Primary Care Provider [phone] Reason for Visit * Reason Comments Outpatient Testing Encounter Details Date Type Department Care Team (Late st Contact Info) Description 01/29/2024 9:40 AM EDT Laboratory Laboratory, [place] [address] [place] [address] [place] [address] [place], [place] [phone] Malignant melanoma of left lower extremity (HCC); Centrilobular emphysema (HCC); EPILEPSY;NONCONV,W/O INTRACTABLE Allergies Active Allergy Reactions Criticality Noted Date Comments Erythromycin 08/15/1997 seizures documented as of this encounter (statuses as of 02/02/2024) Medications Medication Sig Dispensed Refills Start Date [...] OTHER MEDS 90 Tablet 1 4 Active Ondansetron HCl 8 MG Oral Tablet (Zofran)Indicatio ns:Malignant melanoma of left lower extremity (HCC),Malignant 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) TAKE 1 TABLET BY MOUTH TWICE DAILY 30 MIN PRIOR TO ADMINISTRATION OF TAFINLAR 60 Tablet 4 Active carBAMazepine ER 200 MG Oral Tablet Extended Release 12 Hour (Tegretol-Xr)Radha cations: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) TAKE 2 TABLETS BY MOUTH IN THE MORNING AND 2 IN THE EVENING 4 Active carBAMazepine ER 200 MG Oral Tablet Extended Release 12 Hour (Tegretol-Xr)Radha cations: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) TAKE 3 TABLETS BY MOUTH IN THE MORNING AND 2 IN THE EVENING 450 Tablet 5 4 024 Discontinued documented as of this encounter (statuses as of 02/02/2024) Active Problems Problem Noted Date Diagnosed Date Cerebral atrophy 09/30/2023 Left sided lacunar infarction 09/30/2023 Spinal stenosis of cervical region 09/30/2023 Coronary artery disease invo lving [place] coronary artery of [place] heart without angina pectoris 09/30/2023 Pulmonary nodules [...] as of this encounter (statuses as of 02/02/2024) Resolved Problems Problem Noted Date Diagnosed Date [...] as of this encounter (statuses as of 02/02/2024) Immunizations Name Administration Dates Next Due COVID-19, [...] as of this encounter Miscellaneous Notes * Addendum Note - Baldev Solorio MD - 02/02/2024 10:28 AM EDTAddended by: BALDEV SOLORIO on: 02/02/2024 10:28 AM Modules accepted: Orders documented in this encounter Plan of Treatment Upcoming Encounters Date Type Department Care Team (Late st Contact Info) Description 02/04/2024 2:15 PM EDT Office Visit Hematology/Oncology [facility] [place] [address] [place] [address] Benja Watkins MD 200 [facility] [place] [address] 02/13/2024 8:00 AM EDT Imaging Radiology [address], [address] [place] [address] 02/20/2024 2:00 PM EDT Imaging Radiology [address], [address] [place] [address] 02/20/2024 2:00 PM EDT Imaging Radiology [address] 132 [place] [address] 03/02/2024 9:45 AM EDT Pharmacy Pharmacy Hematology [facility] [address] [place] [address] [facility] Hem/Onc [address] [place] [address] 08/02/2024 8:20 AM EST Office Visit [place] [address] [place] [phone] Baldev Solorio MD [address] [place] [address] 10/05/2024 12:30 PM EDT Telemedicine Care at Home [address] [place] [address] Kori Dumont PA-C [address] [place] [address] Scheduled Orders Name Type Priority Associated Diagnoses Orde r Schedule CBC Lab STAT Malignant melanoma of left lower extremity (HCC) Ordered: 01/29/2024 DIFFERENTIAL, AUTOMATED Lab STAT Malignant melanoma of left lower extremity (HCC) Ordered: 01/29/2024 Scheduled Procedures Name Priority Associated Diagnoses Date/Ti me COLONOSCOPY FLEXIBLE PROXIMA L DIAGNOSTIC Recall Family history of colon cancer Health Maintenance Due Date Last Done Comments Alpha-1 Antitrypsin 1976 Cologuard 2003 Fecal Occult Blood Test 2003 Sigmoidoscopy 2003 Mammogram 02/06/2022 02/06/2021, 0810/2019, 02/01/2020, Additional history exists COVID-19 Vaccine ( [...] 09/10/2023 DISCUSS TOBACCO CESSATION (REFER TO SMARTSET #9869) 01/28/2025 01/29/2024 GFR 01/28/2025 01/29/2024, 08/21, 08/08/2023, [...] this encounter Medical Devices Implanted Type Area Dye Winch Operator Device Identifier Shelf Expiration Date Model / Serial / Lot Cover [place] Hole 24mm 421.528 - [id number] Implanted:Qty: 1 on 08/20/2021 by Joni Hand III, MD at OR [facility] Right: Head SYNTHES MAXILLOFACIAL 421.528 / / Plate Y Ti Lo Db 6h 21 421.517 - [id number] Implanted:Qty: 1 on 08/20/2021 by Joni Hand III, MD at OR [facility] Right: Head SYNTHES MAXILLOFACIAL 421.517 / / Screw Ti Lo Pro Sd 4mm 400.834 - [id number] Implanted:Qty: 10 on 08/20/2021 by Joni Hand III, MD at OR [facility] Right: Head SYNTHES MAXILLOFACIAL 400.834 / / documented as of this encounter Procedures Procedure Name Priority Date/Time Associated Diagnosis Comments TSH WITH FREE T4 IF INDICATED Routine 01/29/2024 9:47 AM EDT Centrilobular emphysema (HCC) COMPREHENSIVE METABOLIC PANEL STAT 01/29/2024 9:47 AM EDT Malignant melanoma of left lower extremity (HCC) CARBAMAZEPINE LEVEL Routine 01/29/2024 9 :47 AM EDT Centrilobular emphysema (HCC) documented in this encounter Results * (ABNORMAL) CARBAMAZEPINE LEVEL (01/29/2024 9:47 AM EDT) Pathologist [facility] carBAMazepine Level 12.8(H) 4.0 - 12.0 ug/mL 01/29/2024 3:10 PM EDT LABORATORY [facility] Blood Venous blood specimen / Unknown Venipuncture / Unknown 01/29/2024 9:47 AM EDT 01/29/2024 9:47 AM EDT Baldev Solorio MD LAB BLOOD ORDERABLES Performing Organization Address City/[facility] Co de Phone Number LABORATORY [facility] [address] [place] [address] * TSH WITH FREE T4 IF INDICATED (01/29/2024 9:47 AM EDT) [facility] TSH 1.80 0.27 - 4.20 uIU/mL 01/29/2024 3:46 PM EDT LABORATORY [facility] Blood Venous blood specimen / Unknown Venipuncture / Unknown 01/29/2024 9:47 AM EDT 01/29/2024 9:47 AM EDT Baldev Solorio MD LAB BLOOD ORDERABLES Performing Organization Address [facility] [place] [address] * (ABNORMAL) COMPREHENSIVE METABOLIC PANEL (01/29/2024 9:47 AM EDT) [facility] BUN 12 6 - 20 mg/dL 01/29/2024 3:10 PM EDT LABORATORY [facility] Creatinine 0.6 0.5 - 1.0 mg/dL 01/29/2024 3:10 PM EDT LABORATORY [facility] Estimated Glomerular Filtration Rate >90 >=60 mL/min 01/29/2024 3:10 PM EDT LABORATORY [facility] Comment:eGFR is calculated b ased on the CKD-EPI 2020 equation Sodium 137 135 - 146 mmol/L 01/29/2024 3:10 PM EDT LABORATORY [facility] Potassium 4.2 3.5 - 5.1 mmol/L 01/29/2024 3:10 PM EDT LABORATORY [facility] Chloride 98 98 - 107 mmol/L 01/29/2024 3:10 PM EDT LABORATORY [facility] CO2 26 22 - 32 mmol/L 01/29/2024 3:10 PM EDT LAB[facility]ATORY [facility] Anion Gap 13 7 - 15 mmol/L 01/29/2024 3:10 PM EDT LAB[facility]ATORY [facility] Glucose 98 70 - 120 mg/dL 01/29/2024 3:10 PM EDT LAB[facility]ATORY [facility] Albumin 4.1 3.8 - 5.0 g/dL 01/29/2024 3:10 PM EDT LAB[facility]ATORY [facility] AST 37(H) 10 - 35 U/L 01/29/2024 3:10 PM EDT LABORATORY [facility] Comment:Result may be falsel y elevated due to hemolysis. Alkaline Phosphatase 120 35 - 130 U/L 01/29/2024 3:10 PM EDT LABORATORY [facility] Bilirubin, Total 0.3 <=1.2 mg/dL 01/29/2024 3:10 PM EDT LAB[facility]ORY [facility] Calcium 9.2 8.4 - 10.2 mg/dL 01/29/2024 3:10 PM EDT LAB[facility]ORY [facility] Protein 7.1 6.0 - 8.3 g/dL 01/29/2024 3:10 PM EDT LAB[facility]ORY [facility] ALT 15 10 - 35 U/L 01/29/2024 3:10 PM EDT LAB[facility]ATORY [facility] Blood Venous blood specimen / Unknown Venipuncture / Unknown 01/29/2024 9:47 AM EDT 01/29/2024 9:47 AM EDT Benja Watkins MD LAB BLOOD ORDERABLES Performing Organization Address City/State/[facility] Co de Phone Number LABORATORY [facility] [address] [place] [address] documented in this encounter Visit Diagnoses Diagnosis Malignant melanoma of left lower extremity (HCC) Centrilobular emphysema (HCC) Other emphysema EPILEPSY;NONCONV,W/O INTRACTABLE Generalized nonconvulsive epilepsy without mention of intractable epilepsy documented in this encounter Advance Directives * [...] Directives occurred with: Not Discussed Care Teams Chemical Research Engineer Relationship Specialty Start Date End Date Baldev Solorio MD [address] [facility] [place] [address] PCP - General Family Medicine 02/20/21 documented as of this encounter
--- OUTSIDE RECORDS SUMMARY | 2024-02-27 02:26 | External Medical Summary | Summary of Care ---
Author Name Unknown Organization [facility] Address [address] [facility] [place] [address] Phone [phone] Care Team Providers Care Recovery Engineer Name Role Phone Martin Solorio MD Primary Care Provider Encounter Details Date Type Department Care Team (Late st Contact Info) Description 02/04/2024 Telephone Hematology/Oncology [facility] [place]ie [place] 200 [facility] [place] [address] Benja Watkins MD 200 [facility] [place] [address] Allergies Active Allergy Reactions Criticality Noted Date Comments Erythromycin 08/15/1997 seizures documented as of this encounter (statuses as of 02/11/2024) Medications Medication Sig Dispensed Refills Start Date End Date Status MULTIVITAMINS PO TABS Take 1 Tablet by mouth every morning. 0 09/10/2007 Active traZODone HCl 100 MG Oral Tablet (Desyrel)Indicatio ns:Insomnia, unspecified type TAKE 1 & 1/2 (ONE & ONE-HALF) TABLETS BY MOUTH AT BEDTIME 45 Tablet 5 05/06/2023 Active Losartan Potassium 50 MG Oral Tablet (Cozaar)Indication s:HTN, goal below 130/80 Take 1 Tablet by mouth in the morning. 90 Tablet 3 07/31/2023 Active Atorvastatin Calcium 20 MG Oral Tablet (Lipitor)Indicatio ns:Dyslipidemia Take 1 Tablet by mouth every evening. 90 Tablet 3 07/31/2023 Active Dabrafenib Mesylate 75 MG Oral Capsule (Tafinlar) Take 1 Capsule by mouth in the morning and 1 Capsule before bedtime. 120 Capsule 5 08/28/2023 Active PARoxetine HCl 40 MG Oral Tablet (pAXil)Indications :Adjustment disorder with depressed mood TAKE 1 TABLET BY MOUTH IN THE MORNING 90 Tablet 1 10/09/2023 Active Trametinib Dimethyl Sulfoxide 0.5 MG Oral Tablet (Mekinist)Indicati ons:Malignant melanoma of left lower extremity (HCC) Take 3 tablets (1.5mg) by mouth in the morning. 90 Tablet 5 10/27/2023 Active Levothyroxine Sodium 200 MCG Oral Tablet TAKE 1 TABLET BY MOUTH ONCE DAILY IN THE MORNING AT LEAST 30 MIN BEFORE BREAKFAST OR OTHER MEDS 90 Tablet 1 11/14/2023 Active Ondansetron HCl 8 MG Oral Tablet (Zofran)Indication s:Malignant melanoma of left lower extremity (HCC),Malignant 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) TAKE 1 TABLET BY MOUTH TWICE DAILY 30 MIN PRIOR TO ADMINISTRATION OF TAFINLAR 60 Tablet 12/23/2023 Active Triamcinolone Acetonide 0.1 % External Cream (Aristocort) Apply topically to affected area 2 times a day. To affected area. 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 * Telephone Encounter - Jenn Lemus OSA - 02/09/2024 9:17 AM EDT Called patient, left message to return call. 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] Encounter documented in this encounter Plan of Treatment Upcoming Encounters Date Type Department Care Team (Late st Contact Info) Description 02/13/2024 8:00 AM EDT Imaging Radiology [address] 132 [facility] [place] [address] 02/20/2024 10:00 AM EDT Office Visit Dermatology [facility] [address] [place] [address] Vesta Avila PA-C [address] [place] [address] 02/20/2024 2:00 PM EDT Imaging Radiology [address] [place] [address] 02/20/2024 2:00 PM EDT Imaging Radiology [address] 132 [place] [address] 03/02/2024 9:45 AM EDT Pharmacy Pharmacy Hematology Oncology [address] [address] [facility], [facility] Clinic Hem/Onc [facility] [place] [address] 05/06/2024 2:45 PM EDT Office Visit Hematology/Oncology [facility] [address] [place] [phone] Benja Watkins MD [address] [place] [address] 08/02/2024 8:20 AM EST Office Visit [address] [phone] Martin Solorio MD [address] [place] [address] 10/05/2024 12:30 PM EDT Telemedicine Care at Home [address] [place] [address] Kori Dumont PA-C [address] [place] [address] Scheduled Procedures Name Priority Associated Diagnoses Date/Ti [...] 09/10/2023 DISCUSS TOBACCO CESSATION (REFER TO SMARTSET #6514) 01/28/2025 01/29/2024 GFR 01/28/2025 01/29/2024, 08/21, 08/08/2023, [...] this encounter Medical Devices Implanted Type Area Stick Inserter Device Identifier Shelf Expiration Date Model / Serial / Lot Cover Nilda Hole 24mm 421.528 - [id number] Implanted:Qty: 1 on 08/20/2021 by Joni Hand III, [place] [facility] [place]: Head SYNTHES MAXILLOFACIAL 421.528 / / Plate Y Ti Lo Db 6h 21 421.517 - [id number] Implanted:Qty: 1 on 08/20/2021 by Joni Hand III, [place] [facility] [place]: Head SYNTHES MAXILLOFACIAL 421.517 / / Screw Ti Lo Pro Sd 4mm 400.834 - [id number] Implanted:Qty: 10 on 08/20/2021 by Joni Hand III, [place] [facility] [place]: Head SYNTHES MAXILLOFACIAL [...] Directives occurred with: Not Discussed Care Teams Recovery Engineer Relationship Specialty Start Date End Date Martin Solorio MD [address] [facility] [place] [address] PCP - General Family Medicine 02/20/21 documented as of this encounter
--- OUTSIDE RECORDS SUMMARY | 2024-02-27 02:26 | External Medical Summary | Summary of Care ---
Author Name Unknown Organization [facility] Address [address] [place] [address] Phone [phone] Care Team Providers Care Group Captain Name Role Phone Martin Solorio MD Primary Care Provider [phone] Reason for Visit * Reason Comments Outpatient Testing Encounter Details Date Type Department Care Team (Late st Contact Info) Description 02/04/2024 2:50 PM EDT Laboratory Laboratory [facility] [address] [place] [address] [facility] [address] [facility] [place] [address] Arrived Allergies Active Allergy Reactions Criticality Noted Date Comments Erythromycin 08/15/1997 seizures documented as of this encounter (statuses as of 02/04/2024) Medications Medication Sig Dispensed Refills Start Date [...] as of this encounter (statuses as of 02/04/2024) Active Problems Problem Noted Date Diagnosed Date Cerebral atrophy 09/30/2023 Left sided lacunar infarction 09/30/2023 Spinal stenosis of cervical region 09/30/2023 Coronary artery disease invo lving hopi coronary artery of hopi heart without angina pectoris 09/30/2023 Pulmonary nodules [...] as of this encounter (statuses as of 02/04/2024) Resolved Problems Problem Noted Date Diagnosed Date [...] as of this encounter (statuses as of 02/04/2024) Immunizations Name Administration Dates Next Due COVID-19, [...] No 09/21/2021 documented as of this encounter Plan of Treatment Upcoming Encounters Date Type Department Care Team (Late st Contact Info) Description 02/13/2024 8:00 AM EDT Imaging Radiology [address] [place] [address] 02/20/2024 2:00 PM EDT Imaging Radiology [place] [address] [place] [address] 02/20/2024 2:00 PM EDT Imaging Radiology [address] [place] [address] 03/02/2024 9:45 AM EDT Pharmacy Pharmacy Hematology Oncology [facility] [address] [place] [address] [facility] [place], [facility] Hem/Onc [address] [place] [address] 05/06/2024 2:45 PM EDT Office Visit Hematology/Oncology [facility] Moreira [place] [address] [facility] [place], [place] [phone] Benja Watkins MD [address] [facility] [place], [place] [address] 08/02/2024 8:20 AM EST Office Visit [facility] [address] [place] [phone] Martin Solorio MD [address] [place] [address] 10/05/2024 12:30 PM EDT Telemedicine Care at Home [address] [place] [address] Kori Dumont PA-C [address] [place] [address] Scheduled Procedures Name Priority Associated Diagnoses Date/Ti me COLONOSCOPY FLEXIBLE PROXIMA L DIAGNOSTIC Recall Family history of colon cancer Health Maintenance Due Date Last Done Comments Alpha-1 Antitrypsin 1976 Cologuard 2003 Fecal Occult Blood Test 2003 Sigmoidoscopy 2003 Mammogram 02/06/2022 02/06/2021, 08/10/2019, 02/01/2020, Additional history exists COVID-19 Vaccine (2022- season) 2023 06/26/2023, 10/03/2020, 09/12/2020 *CXR OR [...] this encounter Medical Devices Implanted Type Area Leather Belt Shaper Device Identifier Shelf Expiration Date Model / Serial / Lot Cover [place] Hole 24mm 421.528 - [id number] Implanted:Qty: 1 on 08/20/2021 by Joni Hand III, MD at [place] [facility] [facility] [place] Right: Head [employer]ILL[employer] 421.528 / / Plate Y Ti Lo Db 6h 21 421.517 - [id number] Implanted:Qty: 1 on 08/20/2021 by Joni Hand III, MD at [place] [facility] [place] [place] Right: Head [employer]ILL[employer]IAL 421.517 / / Screw Ti Lo Pro Sd 4mm 400.834 - [id number] Implanted:Qty: 10 on 08/20/2021 by Joni Hand III, MD at [place] [facility] [place] Right: Head [employer] [...] Directives occurred with: Not Discussed Care Teams Group Captain Relationship Specialty Start Date End Date Martin Solorio MD [address] [facility] [place] [address] PCP - General Family Medicine 02/20/21 documented as of this encounter
--- OUTSIDE RECORDS SUMMARY | 2024-02-27 02:26 | External Medical Summary | Summary of Care ---
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 Name Role Phone Martin Solorio MD Primary Care Provider [phone] Reason for Visit * Reason Comments Outpatient Testing Encounter Details Date Type Department Care Team (Late st Contact Info) Description 01/29/2024 9:40 AM EDT Laboratory Laboratory, [place] [address] [place] [address] [place] [address], [place] [phone] Malignant melanoma of left lower extremity (HCC); Centrilobular emphysema (HCC) Allergies Active Allergy Reactions Criticality Noted [...] THE MORNING 90 Tablet 1 10/09/2023 Active carBAMazepine ER 200 MG Oral Tablet Extended Release 12 Hour (Tegretol-Xr)Indic ations: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) TAKE 3 TABLETS BY MOUTH IN THE MORNING AND 2 IN THE EVENING 450 Tablet 5 10/23/2023 Active Trametinib Dimethyl Sulfoxide 0.5 MG Oral [...] ADMINISTRATION OF TAFINLAR 60 Tablet 12/23/2023 Active documented as of this encounter (statuses as of 02/02/2024) Active Problems Problem Noted Date Diagnosed Date Cerebral atrophy 09/30/2023 Left sided lacunar infarction 09/30/2023 Spinal stenosis of cervical region 09/30/2023 Coronary artery disease invo lving nome coronary artery of nome heart without angina pectoris 09/30/2023 Pulmonary nodules [...] 02/04/2024 2:15 PM EDT Office Visit Hematology/Oncology [facility] [address] [place] [phone] Benja Watkins MD [address] [place] [address] 02/13/2024 8:00 AM EDT Imaging Radiology [address] [place] [address] 02/20/2024 2:00 PM EDT Imaging Radiology [address] [place] [address] 02/20/2024 2:00 PM EDT Imaging Radiology [address], [place] [address] [place] [address] 03/02/2024 9:45 AM EDT Pharmacy Pharmacy Hematology Oncology [facility] [address] [place] [address] [facility] Hem/Onc [address] [place] [address] 08/02/2024 8:20 AM EST Office Visit [facility] [address] [place] [phone] Martin Solorio MD [address] [place] [address] 10/05/2024 12:30 PM EDT Telemedicine Care at Home [address] [place] [address] Kori Dumont PA-C [address] [place] [address] Scheduled Orders Name Type Priority Associated Diagnoses [...] 08/10/2019, 02/01/2020, Additional history exists COVID-19 Vaccine ( [...] this encounter Medical Devices Implanted Type Area Cloth Shader Device Identifier Shelf Expiration Date Model / Serial / Lot Cover [place] Hole 24mm 421.528 - [id number] Implanted:Qty: 1 on 08/20/2021 by Joni Hand III, MD at [place] [facility] [place] Right: Head [employer] MAXILLOFACIAL 421.528 / / Plate Y Ti Lo Db 6h 21 421.517 - [id number] Implanted:Qty: 1 on 08/20/2021 by Joni Hand III, MD at [place] [facility] [place] Right: Head SY[employer]ES MAXILLOF[employer]IAL 421.517 / / Screw Ti Lo Pro Sd 4mm 400.834 - [id number] Implanted:Qty: 10 on 08/20/2021 by Joni Hand III, MD at [place] [facility] [place] Right: Head [employer] MAXILLOF[employer]IAL [...] (ABNORMAL) CARBAMAZEPINE LEVEL (01/29/2024 9:47 AM EDT) carBAMazepine Level 12.8(H) 4.0 - 12.0 ug/mL 01/29/2024 3:10 PM EDT LABORATORY [facility] [place] Blood Venous blood specimen / Unknown Venipuncture / Unknown 01/29/2024 9:47 AM EDT 01/29/2024 9:47 AM EDT Martin Solorio MD LAB BLOOD ORDERABLES LABORATORY [facility] [place] [address] [place] [address] * TSH WITH FREE T4 IF INDICATED (01/29/2024 9:47 AM EDT) TSH 1.80 0.27 - 4.20 uIU/mL 01/29/2024 3:46 PM EDT LABORATORY [facility] [place] Blood Venous blood specimen / Unknown Venipuncture / Unknown 01/29/2024 9:47 AM EDT 01/29/2024 9:47 AM EDT Martin Solorio MD LAB BLOOD ORDERABLES LABORATORY [facility] [place] [address] [place] [address] * (ABNORMAL) COMPREHENSIVE METABOLIC PANEL (01/29/2024 9:47 AM EDT) Pathologist [facility] BUN 12 6 - 20 mg/dL 01/29/2024 3:10 PM EDT LABORATORY [facility] [place] Creatinine 0.6 0.5 - 1.0 mg/dL 01/29/2024 3:10 PM EDT LABORATORY [facility] [place] Estimated Glomerular Filtration Rate >90 >=60 mL/min 01/29/2024 3:10 PM EDT LABORATORY [facility] [place] Comment:eGFR is calculated b ased on the CKD-EPI 2020 equation Sodium 137 135 - 146 mmol/L 01/29/2024 3:10 PM EDT LABORATORY C Potassium 4.2 3.5 - 5.1 mmol/L 01/29/2024 3:10 PM EDT LABORATORY C Chloride 98 98 - 107 mmol/L 01/29/2024 3:10 PM EDT LABORATORY C CO2 26 22 - 32 mmol/L 01/29/2024 3:10 PM EDT LABORATORY C Anion Gap 13 7 - 15 mmol/L 01/29/2024 3:10 PM EDT LABORATORY C Glucose 98 70 - 120 mg/dL 01/29/2024 3:10 PM EDT LABORATORY C Albumin 4.1 3.8 - 5.0 g/dL 01/29/2024 3:10 PM EDT LABORATORY [facility] [place] AST 37(H) 10 - 35 U/L 01/29/2024 3:10 PM EDT LABORATORY C Comment:Result may be falsel y elevated due [...] EDT Benja Watkins MD LAB BLOOD ORDERABLES LABORATORY [facility] [address] [place] [address] documented in this encounter Visit Diagnoses Diagnosis Malignant melanoma of left lower extremity (HCC) Centrilobular emphysema (HCC) Other emphysema documented in this encounter Advance Directives * [...] Directives occurred with: Not Discussed Care Teams Hemstitching Machine Operator Relationship Specialty Start Date End Date Martin Solorio MD [address] [place] [address] PCP - General Family Medicine 02/20/21 documented as of this encounter
--- OUTSIDE RECORDS SUMMARY | 2024-02-27 02:26 | External Medical Summary | Summary of Care ---
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 [facility] Are you referring the patient for Mohs Surgery and have a current positive skin cancer biopsy result? No What is the reason for the patient referral? Rash/Skin Check/Eval of Lesion or Mole Comments 63-year-old female, a case of melanoma involving the left leg, recurrent disease noted in the brain, currently on dabrafenib and trametinib for the last 2 years. Lately she has erythematous lesion involving the left thigh, increasing mole involving the left upper chest wall. Would like to Dermatology evaluation. Thanks. Dr. 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) Allergies Active Allergy Reactions Criticality Noted [...] region 09/30/2023 Coronary artery disease invo [place] coronary artery of [place] heart without angina pectoris 09/30/2023 Pulmonary nodules 09/30/2023 Centrilobular emphysema 09/30/2023 Left atrial enlargement 09/30/2023 Mild mitral regurgitation 09/30/2023 Mild tricuspid regurgitation 09/30/2023 Mild pulmonary valve regurgitation 09/30/2023 Brain lesion 09/08/2023 Malignant neoplasm metastatic to brain Hx of melanoma of skin 08/26/2019 Overview: Melanoma involving the left leg, S/P resection (12/26/2017 -CT of invasion 2.7 mm level 4, T3b (presence of ulceration) -3 sentinel lymph nodes positive for metastatic disease [...] Day Cigarettes 0.5 20 Smokeless Tobacco: Never Tobacco Cessation:Ready to Q uit: Not Asked; Counseling Given: Not Answered Comments:quit 1995;Pt started smoking last year. quit on 09/01/2007, smoking [...] on file documented as of this encounter Last Filed Vital Signs Vital Sign Reading Time Taken Comments Blood Pressure 126/72 02/04/2024 2:03 PM EDT Pulse 80 02/04/2024 2:03 PM EDT Temperature 36.3 C (97.3 F) 02/04/2024 2:03 PM ED T Respiratory Rate - - Oxygen Saturation 91% 02/04/2024 2:03 PM EDT Inhaled Oxygen Concentration - - Weight 60.7 kg (133 lb 14.4 oz) 02/04/2024 2:03 PM EDT Height - - Body Mass Index 25.3 01/29/2024 8:23 AM EDT documented in this encounter Functional Status Functional Status Response [...] as of this encounter Progress Notes * Benja Watkins MD - 02/04/2024 2:15 PM EDT Hematology/Oncology Outpatient Clinic note [address] [place] [address] Name: Judy Garcia Date: 01/31/2022 CHIEF COMPLAINT: Judy Garcia is a 63 year old female patient Here for f/u visit today. HEMATOLOGY/ONCOLOGY DIAGNOSIS: Melanoma involving the left leg, S/P resection (12/26/2017) -Depth of invasion 2.7 mm level 4, T3b (presence of ulceration) -3/3 sentinel lymph nodes positive for metastatic disease in the left inguinal region, largest metastatic focus measuring 0.2 mm, N2a - PET-CT scan negative for distant metastatic disease -BRAF--> negative for V600E mutation but posiitve for V600K mutation. - 6.4 x 3.7 x 4.1 cm complex fluid collection in the left groin extending to the upper thigh (postoperative seroma), S/P aspiration by Dr. Gillis (20 mL) on 03/18/2018. - Chronic hyponatremia for 10 yrs+ -Hypothyroidism noticed following Nivolumab (Opdivo) treatment, presently she is on levothyroxine at 200 mcg every day. -lung nodules. (History of smoking present.). Metastatic disease involving the right parietal lobe, S/P resection on 08/20/2021. 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 Cancer Staging Malignant melanoma of left lower extremity (HCC) Staging form: Melanoma Of The Skin, AJCC 8th Edition - Clinical: No stage assigned - Unsigned - Pathologic stage from 01/19/2018: Stage IIIC (pT3b, pN2a, cM0) - Signed by Benja Watkins MD on 01/19/2018 DATE OF DIAGNOSIS: 11/14/17 TREATMENT HISTORY: Adjuvant immunotherapy with Nivolumab (Opdivo) for 1 year- started 01/26/2018. For the last one month in October 2018 Nivolumab (Opdivo) was on hold because of abnormal liver function, possible pulmonary toxicity. Treated with tapering dose of prednisone, prednisone was discontinued in mid-November 2018. 11/23/2018--> restarted Nivolumab (Opdivo). She completed Nivolumab (Opdivo) treatment on 03/29/2019. She completed radiation treatment to the brain lesion at [facility] in mid- September 2021. CURRENT TREATMENT: Dabrafenib and trametinib for metastatic melanoma involving the brain. ( started in midSeptember 2021). She could not tolerate dabrafenib and trametinib full dose, dose reduction was done and restarted on 01/09/2022 -currently dabrafenib 100 mg twice a day and the Trametinib 1.5 mg daily. ( she could not tolerate,she had increasing tiredness and so It was on hold ) On 02/20/2022, advised to restart dabrafenib and trametinib at a lower dose which she was on in December 2021. As of 02/04/2024- she is on dabrafenib at 75 mg twice a day and trametinib 1.5 mg once a day. Tolerating this treatment well. - sometimes she takes 1 week break from the treatment to improve the side effects ONCOLOGY HISTORY: She says that she had small mole involving the left leg for a long time, about 6 months back it started growing, she scratch that area, had some local bleeding, she was then seen by Dr. Gillis, underwent excision of that mass on 11/14/2017, final pathology showed malignant melanoma, superficial spreading type,depth of invasion 2.77 mm, anatomical level IV, ulceration present, T3b. Peripheral adebayo in involved by the melanoma in-situ. She was then seen by Dr. Arevalo, underwent wide excision and sentinel lymph alfredo biopsy on 12/26/2017, final pathology showed residual invasive melanoma measuring 1.1 mm, 3 lymph nodes positive for metastatic disease, the largest lymph node measuring 0.2 mm, N2a. -PET-CT scan done on 01/14/2018--> no suspicious findings noted anywhere else, post operative changes noted in the left leg and left groin region. Enlarged thyroid gland with mild diffuse uptake suggest thyroiditis. OTHER IMPORTANT HISTORY: - History of seizure disorder, she had brain surgery for that, she is on Tegretol for a long time, no seizure disorder since then. -DJD involving the back, hip region, she takes NSAID on p.r.n. basis for the symptomatic treatment. -depression, she is on Paxil - Insomnia, she takes trazodone. - She smokes 1 pack per day, denies any ETOH abuse. She was seen at [facility] ER on 04/20/2019 for nausea, vomiting, dehydration, upper abdominal pain, I reviewed hospital records. Blood workup showed normal blood counts, sodium level was 130. Normal liver function test noted. CT scan of the abdomen and pelvis (04/20/2019) 1. No bowel wall thickening or obstruction. 2. Mild bile duct dilatation. This is likely due to the patient's postcholecystectomy state. 3. A 9 mm nodular density within the left lower lobe. As demonstrates a flattened appearance on coronal reformations. Therefore, this is less likely to represent a suspicious pulmonary nodule. [address] follow-up recommended to ensure stability. 4. Interval progression of the 1.2 cm of anterolisthesis of L4 on L5 resulting in severe bilateral neural foraminal narrowing at this level. MRI of Brain 12/06/2021 IMPRESSION Lobulated mass in the right precuneus parietal lobe is roughly similar in size since September. Progressive marginal T1 shortening, particularly around the upper margin now becoming thick and irregular, indicating hemorrhage, melanin, protein or combination thereof. Mild superimposed marginal enhancement. The internal components are now homogeneously T2 hyperintense and markedly diffusion restricting, favoring chronic degraded blood products, although intracranial abscess cannot be excluded. Perilesional vasogenic edema has improved since September. This results in decreased mass effect on theright posterior lateral ventricular body and occipital horn. Resolved midline shift. Overall diffuse increased ventriculosulcal caliber throughout the supratentorial brain likely reflects re-expansion, with or without physiologic variation in overall systemic hydration status. No new suspicious lesions. HISTORY OF PRESENT ILLNESS: She has come the clinic for the follow-up, she came to clinic by her friend, ambulating with the help of the walker when she is outside but she ambulates without any assistance at home.. She says that she is feeling well, no nausea, no vomiting, no fever, previously noted weakness has improved, no new seizure. No increasing leg edema, stable weight around 133 lb. Presently she is on dabrafenib at 75 mg twice a day and trametinib at 1.5 mg once a day. She is on so on Tegretol, no new seizure. She is not on steroid treatment. She denies any increasing headache. She completed SBRT to brain lesion in last week of July 2022. No abdominal symptoms. No diarrhea or constipation. No bleeding from the sites. No skin lesion. No leg edema. 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7 Epilepsy HTN, goal below 130/80 10/09/2018 Hypercholesteremia Hypothyroidism due to medication 2023-07-31 Adding E03.2-Hypothyroidism due to medication Dx to History OTHER 2004 athritis OTHER 2005 Kidney stones Skin cancer 2017 Past Surgical History: Procedure Laterality Date ANESTHESIA FOR OPEN HEAD SURGERY 1995 for seizure control - successful BX LYMPH NODE-SUPERFIC Left 12/26/2017 BIOPSY LYMPH NODE OPEN SUPERFICIAL performed by Saw Arevalo MD at OR [facility] CHEMOTHERAPY for skin cancer from 2017 COLONOSCOPY, DIAGNOSTIC (RECTUM) 08/10/2010 diverticula COLONOSCOPY, DIAGNOSTIC (RECTUM) 06/05/2021 internal hemorrhoids/recall 5 years/COLONOSCOPY FLEXIBLE PROXIMAL DIAGNOSTIC performed by Sharon Vázquez MD at ENDOSCOPY [facility] CYSTOSCOPY 10/2005 Dr. Bone INFORMATION Left 11/14/2017 Skin lesion excised from left lower leg, in-office performed by Dr. [place] Gillis 11/14/2017 LAPAROSCOPY, CHOLECYSTECTOMY WITH CHOLANGIOGRAPHY 01/25/2004 Laparoscopic cholecystectomy with cholangiogram at [facility] with Dr. Julian NERVOUS SYSTEM SURGERY NEC N/A 09/08/2023 UNLISTED PROCEDURE NERVOUS SYSTEM performed by Bereket Lawler MD at OR [facility] REMOVAL OF TONSILS, AGE 12+ 2003 REMOVE SUPRATENTORIAL BRAIN TUMOR Right 08/20/2021 CRANIOTOMY BONE FLAP EXCISION BRAIN TUMOR SUPRATENTORIAL performed by Joni Hand III, MD at [facility] MALG LSN TRK/ARM/LG 1.1-2C Left 12/26/2017 EXCISION MALIGNANT TRUNK ARM LEG 1.1 TO 2CM performed by Saw Arevalo MD at [facility] TOTAL ABD HYSTERECTOMY W/WO REMOVAL OF TUBE(S) 1999 partial [facility] Social History Tobacco Use Smoking status: Current Every Day Smoker Packs/day: 0.50 Years: 20.00 Pack years: 10.00 Types: Cigarettes Smokeless tobacco: Never Used Tobacco comment: quit 1995;Pt started smoking last year. quit on 09/01/2007, smoking on and off Vaping Use Vaping Use: Every day Substances: Nicotine, Flavoring Devices: Pre-filled or refillable cartridge, Pre-filled pod Substance and Sexual Activity Alcohol use: Never Comment: occassionally Drug use: No Sexual activity: Yes Partners: Male Review of patient's allergies indicates: Allergen Reactions Erythromycin seizures Current Outpatient Medications Medication Sig Dispense Refill [...] BREAKFAST OR OTHER MEDS 90 Tablet 1 Ondansetron HCl 8 MG Oral Tablet (Zofran) TAKE 1 TABLET BY MOUTH TWICE DAILY 30 MIN PRIOR TO ADMINISTRATION OF TAFINLAR 60 Tablet 0 Triamcinolone Acetonide 0.1 % External Cream (Aristocort) Apply topically to affected area 2 times a day. To affected area. 80 g 5 carBAMazepine ER 200 MG Oral Tablet Extended Release 12 Hour (Tegretol-Xr) TAKE 2 TABLETS BY MOUTH IN THE MORNING AND 2 IN THE EVENING No current facility-administered medications for this visit. OBJECTIVE: There were no vitals taken for this visit.There were no vitals taken for this visit. PHYSICAL EXAM: ECOG: Performance Status 1-2 General Appearance: No acute distress Lymph Nodes: Normal - No palpable lymph nodes in the neck or supraclavicular areas Lungs/Thorax: Normal - Clear to auscultation Heart: Normal - Regular rate and rhythm, normal S1, S2, no appreciable murmurs Pulses/Extremities: Normal - 2+ throughout and symmetrical, no edema Musculoskeletal: Normal - No pain on palpation over bony prominence, no joint or bony deformity Neurologic: alert and oriented x 4, 4/5 strength in BLE, ambulates with walker LABS: Blood workup done on 02/04/2024: -WBC 4800, Hemoglobin and hematocrit -14/42.6, Platelet count of 142640. -BUN/Creat: 12/0.6, Calcium 9.2, normal LFT (01/29/2024). - TSH 1.8 Brain MRI ( 03/08/2022) Slightly increased right parasagittal parietal enhancement at the superior aspect of the surgical resection cavity with slight interval increase in frontoparietal vasogenic edema since 12/06/2021 with mild local mass effect. These findings are relatively nonspecific and may represent a combination of post-treatment change and/or viable tumor. PET-CT scan (04/02/2022: 1. Expected postsurgical changes from right frontoparietal craniotomy for tumor resection. No focal areas of increased radiotracer activity in the head. 2. No focal areas of increased radiotracer uptake concerning for malignancy - PET-CT scan done on 07/11/2022 --> no new metabolically active spots noted anywhere else. PET-CT scan done on 04/29/2023 --> negative Brain MRI (07/18/2022). -new focus of enhancement measuring 5 mm in the left frontal lobe. She is received SBRT to the left frontal lobe brain lesion which was completed in last week of July 2022. ____ Brain MRI done on 11/12/2022 --> - Previously noted left frontal lobe enhancing focus has decrease in the size now measuring 5 x 2 mm (previously it was 7 x 4 mm) - No new lesions noted. Brain MRI done on 04/22/2023: -subtle interval increase in the size of 5 mm enhancing lesion in the left frontal lobe ( this was treated in the past,? Could this be radiation necrosis), -stable postsurgical changes in the right parietal lobe Brain MRI on 08/22/2023: -left frontal lobe enhancing lesion measuring 9 x 8 mm ( previously 5 x 5 mm. Increase edema along the margin of the lesion noted. -postsurgical changes in the right parietal lobe noted, stable irregular enhancement along the medial right parietal lobe noted. IMPRESSION/PLAN: Metastatic Melanoma to the Brain Chronic Hyponatremia Encounter for chemotherapy Patient's reports of increased weakness and fatigue possibly multifactorial including disease, medication related and hyponatremia (though this is chronic). Presently she is on dabrafenib 75 mg twice a day and trametinib 1.5 mg once a day. Lately she has tolerated treatment well, no fever, no recent hospitalization, no increasing nausea or vomiting, no new cardiac or pulmonary symptoms. I reviewed her PET-CT scan done in June 2022, no metabolic active disease noted anywhere else, reviewed the brain MRI, new 5 mm enhancing focus left frontal lobe, she received SBRT to that area which was completed in last week of July 2022. Presently she is not on steroid. PET-CT scan done recently on 04/29/2023, no evidence of progression noted anywhere else. She supposed to go for another PET-CT scan but recently she was traveling and so she did not go forthe PET-CT scan of the brain MRI. Now she is rescheduled for the brain MRI. Advised her to reschedule the PET-CT scan Reviewed blood workup done recently, overall stable blood workup noted Will continue dabrafenib 75 mg twice a day and trametinib 1.5 g once a day. Will see her in about [address] Benja Watkins Hem/Onc (This note was completed using the dictation program Fluency Direct. As such, there may be misspellings word substitutions, or other variations that should not change the essence of the clinical content of this encounter note. If there is need for further clarification, please direct questions to the provider listed above.) documented in this encounter Nursing Notes * Hero Gan MED ASSIST - 02/04/2024 2:04 PM EDT Patient identifed by name and birthdate Do you have any concerns about pain management for today's visit? No Living Will or Advance Directive for Health Care as noted on the problem list Patient identified by name and date of . Do you have any concerns about pain management for today's visit? No Living Will or Advance Directive for Health Care as noted on problem list. My [facility] is a way you can talk to your provider online through e-mail. Would you like to sign up? I can activate it for you? ALREADY ACTIVE BP 126/72 (BP Site: Left Arm, BP Position: Sitting, BP Cuff Size: Regular) | Pulse 80 | Temp 36.3 C (97.3 F) (Tympanic) | Wt 60.7 kg (133 lb 14.4 oz) | SpO2 91% | BMI 25.30 kg/m | BSA 1.62 m Patient was instructed to not get up on the exam table/exam chair until directed and assisted by their provider; patient is to remain seated in the chair/ wheelchair/ exam table/ exam chair for fall prevention and safety reasons. Patient is aware to have assistance to step down off exam table/exam chair with personnel. Patient voiced full comprehension of instructions. documented in this encounter Plan of Treatment Upcoming Encounters Date Type Department Care Team (Late st Contact Info) Description 02/13/2024 8:00 AM EDT Imaging Radiology [address] [facility] [place] [address] 02/20/2024 2:00 PM EDT Imaging Radiology [address] [place] [address] 02/20/2024 2:00 PM EDT Imaging Radiology [address] [place] [address] 03/02/2024 9:45 AM EDT Pharmacy Pharmacy Hematology Oncology [facility] [address] [place] [address] [facility] Hem/Onc [address] [place] [address] 05/06/2024 2:45 PM EDT Office Visit [facility] [address] [facility] [place] [phone] Benja Watkins MD [address] [facility] [place] [address] 08/02/2024 8:20 AM EST Office Visit [facility] [address] [place] [phone] Martin Solorio MD [address], [place] [id number] 10/05/2024 12:30 PM EDT Telemedicine Care at Home [address] [place] [address] Kori Dumont PA-C [address] [place] [address] Scheduled Procedures Name Priority Associated Diagnoses Date/Ti me COLONOSCOPY FLEXIBLE PROXIMA L DIAGNOSTIC Recall Family history of colon cancer Scheduled Referrals Name Type Priority Associated Diagnoses Orde r Schedule DERMATOLOGY REFERRAL OP Referral Within 10 days (routine) Malignant melanoma of left lower extremity (HCC) Malignant 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) 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) Ordered: 02/04/2024 Health Maintenance Due Date Last Done Comments [...] this encounter Medical Devices Implanted Type Area Loan Documents Closer Device Identifier Shelf Expiration Date Model / Serial / Lot Cover [place] 24mm 421.528 - [id number] Implanted:Qty: 1 on 08/20/2021 by Joni Hand III, MD at OR [facility] Right: Head [employer] 421.528 / / Plate Y Ti Lo Db 6h 21 421.517 - [id number] Implanted:Qty: 1 on 08/20/2021 by Joni Hadn III, MD at OR [facility] Right: Head [employer] 421.517 / / Screw Ti Lo Pro Sd 4mm 400.834 - [id number] Implanted:Qty: 10 on 08/20/2021 by Joni Hand III, MD at OR [facility] Right: Head [employer] 400.834 / / documented as of this encounter Procedures Procedure Name Priority Date/Time Associated Diagnosis Comments DIFFERENTIAL, AUTOMATED STAT 02/04/2024 2:38 PM EDT Malignant melanoma of left lower extremity (HCC) Malignant 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) 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) CBC STAT 02/04/2024 2:38 PM EDT Malignant melanoma of left lower extremity (HCC) Malignant 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) 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) CBC STAT 02/04/2024 2:38 PM EDT Malignant melanoma of left lower extremity (HCC) Malignant 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) 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) documented in this encounter Results * (ABNORMAL) DIFFERENTIAL, AUTOMATED (02/04/2024 2:38 PM EDT) WBC 4.86 4.00 - 10.80 K/uL 02/04/2024 2:43 PM EDT [facility] [place] 56-02 Neutrophils % 54.6 40.0 - 75.0 % 02/04/2024 2:43 PM EDT [facility] 56- Lymphocytes % 28.6 18.0 - 42.0 % 02/04/2024 2:43 PM EDT [facility] 56- Monocytes % 14.6(H) 1.0 - 11.0 % 02/04/2024 2:43 PM EDT [facility] 56- Eosinophils % 1.6 0.0 - 6.0 % 02/04/2024 2:43 PM EDT [facility] 56- Basophils % 0.6 0.0 - 2.0 % 02/04/2024 2:43 PM EDT [facility] 56- Absolute Neutrophils 2.65 1.80 - 7.70 K/uL 02/04/2024 2:43 PM EDT [facility] 56- Absolute Lymphocytes 1.39 1.00 - 4.80 K/ul 02/04/2024 2:43 PM EDT [facility] 56- Absolute Monocytes 0.71 0.00 - 1.10 K/uL 02/04/2024 2:43 PM EDT [facility] 56- Absolute Eosinophils 0.08 0.00 - 0.70 K/uL 02/04/2024 2:43 PM EDT [facility] 56-02 Absolute Basophils 0.03 0.00 - 0.20 K/uL 02/04/2024 2:43 PM EDT [facility] 56- Blood Venous blood specimen / Unknown Venipuncture / Unknown 02/04/2024 2:38 PM EDT 02/04/2024 2:38 PM EDT Benja Watkins MD LAB BLOOD ORDERABLES [facility] [address] [place] [address] * CBC (02/04/2024 2:38 PM EDT) [facility] WBC 4.86 4.00 - 10.80 K/uL 02/04/2024 2:43 PM EDT [facility] 56- RBC 4.46 3.85 - 5.15 M/uL 02/04/2024 2:43 PM EDT [facility] 56 HGB 14.1 12.0 - 15.3 g/dL 02/04/2024 2:43 PM EDT [facility] 56 HCT 42.6 36.0 - 45.2 % 02/04/2024 2:43 PM EDT [facility] 56 MCV 95.5 81.5 - 97.5 fL 02/04/2024 2:43 PM EDT [facility] 56 MCH 31.6 27.0 - 34.0 pg 02/04/2024 2:43 PM EDT [facility] 56 MCHC 33.1 32.0 - 36.0 g/dL 02/04/2024 2:43 PM EDT [facility] 56 RDW 15.3 11.5 - 15.5 % 02/04/2024 2:43 PM EDT [facility] 56 PLT 329 140 - 400 K/uL 02/04/2024 2:43 PM EDT [address] MPV 8.8 6.6 - 11.1 fL 02/04/2024 2:43 PM EDT [facility] 56 Blood Venous blood specimen / Unknown Venipuncture / Unknown 02/04/2024 2:38 PM EDT 02/04/2024 2:38 PM EDT Benja Watkins MD LAB BLOOD ORDERABLES [facility] [address] [place] [address] documented in this encounter Visit Diagnoses Diagnosis Malignant melanoma of left lower extremity (HCC)- Primary 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
--- OUTSIDE RECORDS SUMMARY | 2024-02-27 02:26 | External Medical Summary | Summary of Care ---
Author Name Unknown Organization [facility] Address [address] [facility] [place] [address] Phone [phone] Care Team Providers Care Manual Winder Name Role Phone Martin Solorio MD Primary Care Provider [phone] Encounter Details Date Type Department Care Team (Late st Contact Info) Description 02/04/2024 Telephone Hematology/Oncology [facility] Lillie [place] 200 [facility] [place] [address] Benja Watkins MD 200 [facility] [place] [address] Allergies Active Allergy Reactions Criticality Noted Date Comments Erythromycin 08/15/1997 seizures documented as of this encounter (statuses as of 02/09/2024) Medications Medication Sig Dispensed Refills Start Date [...] as of this encounter (statuses as of 02/09/2024) Active Problems Problem Noted Date Diagnosed Date Cerebral atrophy 09/30/2023 Left sided lacunar infarction 09/30/2023 Spinal stenosis of cervical region 09/30/2023 Coronary artery disease invo lving [place] coronary artery of [place] heart without angina pectoris 09/30/2023 Pulmonary nodules 09/30/2023 Centrilobular emphysema 09/30/2023 Left atrial enlargement 09/30/2023 Mild mitral regurgitation 09/30/2023 Mild tricuspid regurgitation 09/30/2023 Mild pulmonary valve regurgitation 09/30/2023 Brain lesion 09/08/2023 Malignant neoplasm metastatic to brain 2 Hx of melanoma of skin 08/26/2019 Overview: [...] as of this encounter (statuses as of 02/09/2024) Resolved Problems Problem Noted Date Diagnosed Date [...] as of this encounter (statuses as of 02/09/2024) Immunizations Name Administration Dates Next Due COVID-19, [...] 02/04/2024 2:36 PM EDT DERMATOLOGY REFERRAL OP [[id number]] (Order [id number] Associated Diagnoses Malignant melanoma of left lower extremity (HCC) [C43.72] - Primary Malignant 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) [C79.31] 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] Encounter documented in this encounter Plan of Treatment Upcoming Encounters Date Type Department Care Team (Late st Contact Info) Description 02/13/2024 8:00 AM EDT Imaging Radiology [address] 132 [facility] [place] [address] 02/20/2024 2:00 PM EDT Imaging Radiology [address] 132 [facility] [place] [address] 02/20/2024 2:00 PM EDT Imaging Radiology [address] [place] [address] 03/02/2024 9:45 AM EDT Pharmacy Pharmacy Hematology Oncology [facility] [address] [place] [address] [facility] Hem/Onc [address] [place] [address] 05/06/2024 2:45 PM EDT Office Visit Hematology/Oncology [facility] 200 [facility] [place] [address] Benja Watkins MD 200 [facility] [place] [place] [address] 08/02/2024 8:20 AM EST Office Visit [address] [phone] Martin Solorio MD [address] [place] [address] 10/05/2024 12:30 PM EDT Telemedicine Care at Home [address] [place] [address] Kori Dumont PA-C [address] [place] [address] Scheduled Procedures Name Priority Associated Diagnoses Date/Ti me COLONOSCOPY FLEXIBLE PROXIMA L DIAGNOSTIC Recall Family history of colon cancer Health Maintenance Due Date Last Done Comments Alpha-1 Antitrypsin 1976 Cologuard 2003 Fecal Occult Blood Test 2003 Sigmoidoscopy 2003 Mammogram 02/06/2022 02/06/2021, 0810/2019, 02/01/2020, Additional history exists COVID-19 Vaccine (2022- [...] 09/10/2023 DISCUSS TOBACCO CESSATION (REFER TO SMARTSET #1100) 01/28/2025 01/29/2024 GFR 01/28/2025 01/29/2024, 08/21, 08/08/2023, [...] this encounter Medical Devices Implanted Type Area Fruit Culler Device Identifier Shelf Expiration Date Model / Serial / Lot Cover [place] Hole 24mm 421.528 - [id number] Implanted:Qty: 1 on 08/20/2021 by Joni Hand III, MD at [place] [facility] Right: Head SYNTHES MAXILLOFACIAL 421.528 / / Plate Y Ti Lo Db 6h 21 421.517 - [id number] Implanted:Qty: 1 on 08/20/2021 by Joni Hand III, MD at OR [facility] Right: Head SYNTHES MAXILLOFACIAL 421.517 / / Screw Ti Lo Pro Sd 4mm 400.834 - [id number] Implanted:Qty: 10 on 08/20/2021 by Joni Hand III, MD at OR [facility] Right: Head SYNTHES MAXILLOFACIAL 400.834 / / [...] Directives occurred with: Not Discussed Care Teams Manual Winder Relationship Specialty Start Date End Date Martin Solorio MD [address] [facility] [place] [address] PCP - General Family Medicine 02/20/21 documented as of this encounter
--- OUTSIDE RECORDS SUMMARY | 2024-02-27 02:26 | External Medical Summary | Summary of Care ---
Author Name Unknown Organization [facility] Address [address] [place] [address] Phone [phone] Care Team Providers Care Load Dispatcher Local Name Role Phone Martin Solorio MD Primary Care Provider [phone] Reason for Visit * Reason Onset Date Comments case management 02/06/2024 Encounter Details Date Type Department Care Team (Late st Contact Info) Description 02/06/2024 Telephone Care Coordination and Integration [address] [place] [address] Mary Torres RN [address] [place], [place] [phone] case management Allergies Active Allergy Reactions Criticality Noted Date Comments Erythromycin 08/15/1997 seizures documented as of this encounter (statuses as of 02/06/2024) Medications Medication Sig Dispensed Refills Start Date [...] as of this encounter (statuses as of 02/06/2024) Active Problems Problem Noted Date Diagnosed Date Cerebral atrophy 09/30/2023 Left sided lacunar infarction 09/30/2023 Spinal stenosis of cervical region 09/30/2023 Coronary artery disease invo lving [place] coronary artery of [place] heart without angina pectoris 09/30/2023 Pulmonary nodules [...] as of this encounter (statuses as of 02/06/2024) Resolved Problems Problem Noted Date Diagnosed Date [...] as of this encounter (statuses as of 02/06/2024) Immunizations Name Administration Dates Next Due COVID-19, [...] encounter Miscellaneous Notes * Telephone Encounter - Mary Torres RN - 02/06/2024 9:37 AM EDT Please discharge the patient from [facility] Device(s)/IVR to be discontinued: PD IVR CALLS due to completion. Thank you. documented in this encounter Plan of Treatment Upcoming Encounters Date Type Department Care Team (Late st Contact Info) Description 02/13/2024 8:00 AM EDT Imaging Radiology [address] [place] [address] 02/20/2024 2:00 PM EDT Imaging Radiology [address] [place] [address] 02/20/2024 2:00 PM EDT Imaging Radiology [facility] [place] [address] [place] [address] 03/02/2024 9:45 AM EDT Pharmacy Pharmacy Hematology Oncology [facility] [address] [place] [address] [facility] [address] [place] [address] 05/06/2024 2:45 PM EDT Office Visit Hematology/Oncology [facility] L[place]ie [place] 200 [facility] [place] [phone] Benja Watkins MD 200 [facility] [place] [address] 08/02/2024 8:20 AM EST Office Visit [place] [address] [place] [phone] Martin Solorio MD [address] [place] [address] 10/05/2024 12:30 PM EDT Telemedicine Care at Home [address] [place] [address] Kori Dumont PA-C [address] [place], [place] [id number] Scheduled Procedures Name Priority Associated Diagnoses Date/Ti [...] this encounter Medical Devices Implanted Type Area Coffee Weigher Device Identifier Shelf Expiration Date Model / Serial / Lot Cover Nilda Hole 24mm 421.528 - [id number] Implanted:Qty: 1 on 08/20/2021 by Joni Hand III, MD at [place] [facility] Right: Head SYNTHES MAXILLOFACIAL 421.528 / / Plate Y Ti Lo Db 6h 21 421.517 - [id number] Implanted:Qty: 1 on 08/20/2021 by Joni Hand III, MD at [place] [facility] Right: Head SYNTHES MAXILLOFACIAL 421.517 / / Screw Ti Lo Pro Sd 4mm 400.834 - [id number] Implanted:Qty: 10 on 08/20/2021 by Joni Hand III, MD at [place] [facility] Right: Head SYNTHES MAXILLOFACIAL [...] Directives occurred with: Not Discussed Care Teams Load Dispatcher Local Relationship Specialty Start Date End Date Martin Solorio MD [address] [place] [address] PCP - General Family Medicine 02/20/21 documented as of this encounter
--- OUTSIDE RECORDS SUMMARY | 2024-02-27 02:26 | External Medical Summary ---
Author Name Unknown Address Unknown Organization K[facility] [place] [address] Laboratory Report Ordering Provider Test Date Status DILLAN LOPEZ 02/04/2024 14:38:27 Final Observation Date Value Abnormality Reference (Units ) Status WBC, Total 02/04/2024 14:38:27 4.86 4.00-10.8 0 (K/uL) Final RBC 02/04/2024 14:38:27 4.46 3.85-5.15 (M/uL) Final Hemoglobin 02/04/2024 14:38:27 14.1 12.0-15.3 (g/dL) Final HCT 02/04/2024 14:38:27 42.6 36.0-45.2 (%) Final MCV 02/04/2024 14:38:27 95.5 81.5-97.5 (fL) Final MCH 02/04/2024 14:38:27 31.6 27.0-34.0 (pg) Final MCHC 02/04/2024 14:38:27 33.1 32.0-36.0 (g/dL) Final RDW 02/04/2024 14:38:27 15.3 11.5-15.5 (%) Final Platelets 02/04/2024 14:38:27 329 140-400 (K /uL) Final MPV 02/04/2024 14:38:27 8.8 6.6-11.1 ( fL) Final Performing Location [facility] [place] [address]
--- OUTSIDE RECORDS SUMMARY | 2024-02-27 02:26 | External Medical Summary | Summary of Care ---
Author Name Unknown Organization [facility] Address [address] [place] [address] Phone [phone] Care Team Providers Care Finishing Pan Operator Name Role Phone Martin Solorio MD Primary Care Provider [phone] Reason for Visit * Reason Onset Date Comments Med Request 01/29/2024 Encounter Details Date Type Department Care Team (Late st Contact Info) Description 01/29/2024 Telephone [facility] [address] [place] [address] Martin Solorio MD [address] [place] [address] Med Request Allergies Active Allergy Reactions Criticality Noted Date Comments Erythromycin 08/15/1997 seizures documented as of this encounter (statuses as of 01/29/2024) Medications Medication Sig Dispensed Refills Start Date [...] affected area. 80 g 5 01/29/2024 Active documented as of this encounter (statuses as of 01/29/2024) Active Problems Problem Noted Date Diagnosed Date Cerebral atrophy 09/30/2023 Left sided lacunar infarction 09/30/2023 Spinal stenosis of cervical region 09/30/2023 Coronary artery disease invo lving [place] coronary artery of [place] heart without angina pectoris 09/30/2023 Pulmonary nodules [...] as of this encounter (statuses as of 01/29/2024) Resolved Problems Problem Noted Date Diagnosed Date [...] as of this encounter (statuses as of 01/29/2024) Immunizations Name Administration Dates Next Due COVID-19, [...] encounter Miscellaneous Notes * Telephone Encounter - Martin Solorio MD - 01/29/2024 4:46 PM EDT I forgot to send script for Trimcinalone Cr to pharmacy. Now it has been sent. * Telephone Encounter - Laura Crawley OSA - 01/29/2024 12:05 PM EDT Patient's stopped in after her appt and asked if there was a med that should have been sentin for her rash that she is having on the left forearm and thigh area. I let him know that there were no meds sent in and that I could check to see. He said that if there were to be a med sent in that it should be sent to [facility] [place] documented in this encounter Plan of Treatment Upcoming Encounters Date Type Department Care Team (Late st Contact Info) Description 02/04/2024 2:15 PM EDT Office Visit Hematology/Oncology [facility] 200 [facility] [place] [phone] Benja Watkins MD 200 [facility] [place] [address] 02/13/2024 8:00 AM EDT Imaging Radiology [address] 132 [facility] [place] [address] 03/02/2024 9:45 AM EDT Pharmacy Pharmacy Hematology Oncology [facility] [address] [place] [address] [facility], [facility] Hem/Onc [address] [place] [address] 08/02/2024 8:20 AM EST Office Visit [address] [phone] Martin Solorio MD [address] [place] [address] 10/05/2024 12:30 PM EDT Telemedicine Care at Home [address] [place] [address] Kori Dumont PA-C [address] [place] [address] Scheduled Procedures Name Priority Associated Diagnoses Date/Ti [...] this encounter Medical Devices Implanted Type Area Child Care Group Leader Device Identifier Shelf Expiration Date Model / Serial / Lot Cover [place] Hole 24mm 421.528 - [id number] Implanted:Qty: 1 on 08/20/2021 by Joni Hand III, [place] [facility] Right: Head SYNTHES MAXILLOFACIAL 421.528 / / Plate Y Ti Lo Db 6h 21 421.517 - [id number] Implanted:Qty: 1 on 08/20/2021 by Joni Hand III, MD [place] [facility] Right: Head SYNTHES MAXILLOFACIAL 421.517 / / Screw Ti Lo Pro Sd 4mm 400.834 - [id number] Implanted:Qty: 10 on 08/20/2021 by Joni Hand III, MD at [place] [facility] Right: Head SYNTHES MAXILLOFACIAL 400.834 / / [...] Directives occurred with: Not Discussed Care Teams Finishing Pan Operator Relationship Specialty Start Date End Date Martin Solorio MD [address] [facility] [place] [address] PCP - General Family Medicine 02/20/21 documented as of this encounter
--- OUTSIDE RECORDS SUMMARY | 2024-02-27 02:26 | External Medical Summary ---
Author Name Unknown Address Unknown Organization [facility] [place] [address] Laboratory Report Ordering Provider Test Date Status DILLAN LOPEZ 02/04/2024 14:38:27 Final Observation Date Value Abnormality Reference (Units ) Status SYNC LEUKOCYTES IN BLOOD BY AUTOMATED COUNT 02/04/2024 14:38:27 4.86 4.00-10.80 (K/uL) Final Segs 02/04/2024 14:38:27 54.6 40.0-75.0 (%) Final Lymphs % 02/04/2024 14:38:27 28.6 18.0-42.0 (%) Final Monos 02/04/2024 14:38:27 14.6 Above high normal 1.0-11.0 (%) Final Eosinophils 02/04/2024 14:38:27 1.6 0.0-6.0 (%) Final Basos 02/04/2024 14:38:27 0.6 0.0-2.0 (%) Final Absolute Segs 02/04/2024 14:38:27 2.65 1.80-7.70 (K/uL) Final Lymphs, absolute 02/04/2024 14:38:27 1.39 1.00-4.80 (K/ul) Final Monos, Abs 02/04/2024 14:38:27 0.71 0.00-1.10 (K/uL) Final Eos, Abs 02/04/2024 14:38:27 0.08 0.00-0.70 (K/uL) Final Basos, Abs 02/04/2024 14:38:27 0.03 0.00-0.20 (K/uL) Final Performing Location [facility] [place] [address]
--- OUTSIDE RECORDS SUMMARY | 2024-02-27 02:26 | External Medical Summary | Summary of Care ---
Author Name Unknown Organization [facility] Address [address] [facility] [place] [address] Phone [phone] Care Team Providers Care Asbestos Siding Installer Name Role Phone Martin Solorio MD Primary Care Provider [phone] Encounter Details Date Type Department Care Team (Late st Contact Info) Description 02/04/2024 Telephone Hematology/Oncology [facility] [place]ie [place] [address] [facility] [place] [address] Benja Watkins MD [address] [place] [address] Allergies Active Allergy Reactions Criticality Noted Date [...] region 09/30/2023 Coronary artery disease invo lving [place] coronary artery of [place] heart without angina pectoris 09/30/2023 Pulmonary nodules [...] encounter Miscellaneous Notes * Telephone Encounter - Salome Garcia OSA - 02/04/2024 2:36 PM EDT DERMATOLOGY REFERRAL OP [[id number]] (Order [id number] Associated Diagnoses Malignant melanoma of left lower extremity (HCC) [C43.72] - Primary Malignant 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) [C79.31] 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 [place] [address] 03/02/2024 9:45 AM EDT Pharmacy Pharmacy Hematology Oncology [facility] [address] [place] [address] [facility], [facility] Hem/Onc [address] [place] [address] 05/06/2024 2:45 PM EDT Office Visit Hematology/[facility] [address] [facility] [place] [phone] Benja Watkins MD 200 [facility] [place] [address] 08/02/2024 8:20 AM EST Office Visit [facility] [address] [place] [phone] Martin Solorio MD [address] [place], [place] [phone] 10/05/2024 12:30 PM EDT Telemedicine Care at Home [address] [place] [address] Kori Dumont PA-C [address] [place] [address] Scheduled Procedures Name Priority Associated Diagnoses Date/Ti [...] 09/10/2023 DISCUSS TOBACCO CESSATION (REFER TO SMARTSET #6951) 01/28/2025 01/29/2024 GFR 01/28/2025 01/29/2024, 08/21, 08/08/2023, [...] this encounter Medical Devices Implanted Type Area Pure Culture Operator Device Identifier Shelf Expiration Date Model / Serial / Lot Cover Nilda Hole 24mm 421.528 - [id number] Implanted:Qty: 1 on 08/20/2021 by Joni Hand III, MD [place] [facility] Right: Head SYNTHES MAXILLOFACIAL 421.528 / / Plate Y Ti Lo Db 6h 21 421.517 - [id number] Implanted:Qty: 1 on 08/20/2021 by Joni Hand III, MD [place] [facility] Right: Head SYNTHES MAXILLOFACIAL 421.517 / / Screw Ti Lo Pro Sd 4mm 400.834 - [id number] Implanted:Qty: 10 on 08/20/2021 by Joni Hand III, MD [place] [facility] Right: Head SYNTHES MAXILLOFACIAL 400.834 / / [...] Directives occurred with: Not Discussed Care Teams Asbestos Siding Installer Relationship Specialty Start Date End Date Martin Solorio MD [address] [place] [address] PCP - General Family Medicine 02/20/21 documented as of this encounter
--- OUTSIDE RECORDS SUMMARY | 2024-02-27 02:27 | External Medical Summary | Summary of Care ---
Author Name Unknown Organization [facility] Address [address] [place] [address] Phone [phone] Care Team Providers Care Grinding And Spraying Supervisor Name Role Phone Martin Solorio MD Primary Care Provider [phone] Reason for Visit * Reason Comments Medication Management Encounter Details Date Type Department Care Team (Late st Contact Info) Description 01/12/2024 9:45 AM EDT Pharmacy Pharmacy Hematology Oncology [facility] [address] [place] [address] [facility], [facility] Hem/Onc [address] [place] [address] Malignant melanoma of left lower extremity (HCC)* Allergies Active Allergy Reactions Criticality Noted Date Comments Erythromycin 08/15/1997 seizures documented as of this encounter (statuses as of 01/12/2024) Medications Medication Sig Dispensed Refills Start Date [...] as of this encounter (statuses as of 01/12/2024) Active Problems Problem Noted Date Diagnosed Date Cerebral atrophy 09/30/2023 Left sided lacunar infarction 09/30/2023 Spinal stenosis of cervical region 09/30/2023 Coronary artery disease invo lving [place] coronary artery of [place] heart without angina pectoris 09/30/2023 Pulmonary nodules [...] as of this encounter (statuses as of 01/12/2024) Resolved Problems Problem Noted Date Diagnosed Date Resolved Date Vasogenic brain edema 09/22/20212021 Intracranial hemorrhage 08/18/2021 0308/2023 Psoriasis 08/26/2019 09/30/2023 Overview: Plaque and pustulosis [...] as of this encounter (statuses as of 01/12/2024) Immunizations Name Administration Dates Next Due COVID-19, [...] as of this encounter Progress Notes * Geri Acevedo, [facility] - 01/12/2024 12:18 PM EDT MEDICATION THERAPY MANAGEMENT DABRAFENIB & TRAMETINIB TREATMENT PROGRESS NOTE Judy Garcia [id number] Patient Phone Numbers : Kwame Communication: Spoke to: Patient Treatment: Medication: Dabrafenib // Trametinib Indication: metastatic melanoma Dose: 75 mg BID // 1.5 mg daily ( 02/2022) Administration: empty stomach (1 hour before or 2 hours after a meal) Start Date: 10/04/21 Primary Maintenance Mechanic Millwright/Oncologist: Dr. Noman Watkins Supportive Care Meds: Ondansetron 8 mg BID 30 min prior to dabrafenib Prochlorperazine 10 mg q6h PRN Dose adjustments: Per OV 12/11/21, dabrafenib and trametinib on HOLD secondary to status decline Per TE 12/12 addendum 12/25/21, pt to resume dabrafenib and trametinib at one dose level reduction Per OV 01/15/22, pt restarted therapy on 01/09/22 Dabrafenib/Trametinib held 02/01/22-02/21/22 secondary to increased weakness Dabrafenib/Trametinib dose reduced 02/2022 due to ongoing weakness and fatigue Per OV 03/19/22, continue dabrafenib 75mg BID and trametinib 1.5mg daily Dabrafenib/Trametinib held 04/11/22-04/26/22, 07/23/22-07/29/22, 03/01--03/08/23 secondary to fatigue; Held 1-week in May 2023- due to fatigue; held 09/28/23-10/02/23 for fatigue Interval History: Per OV 02/27/23, pt will consider chemo holiday but will continue current plan for now. Pt to have repeat PET-CT scan early April 2023 Per TE 04/24/23, pt insurance changed and [facility] to fill dabrafenib and trametinib Per MyG 09/28/23, pt adivsed to hold treatment x 1-2 weeks due to fatigue Per addendum 10/08/23, pt resumed treatment 10/03/23 Per [facility] encounter 10/13/23, pt has been without trametinib since 10/12/23 and medication shipped 10/14/23 Per chart review, pt cancelled 12/11/23 OV and does not have future provider follow up Reports rash on wrist due to watch that is improving with lotion and hydrocortisone cream Reports vision changes unrelated to treatment and will follow up with eye doctor as needed Continues to endorse significant fatigue and requesting week break from treatment Changes to medication list since last visit? No Assessment and Plan: Continue lotion and hydrocortisone cream for rash Encouraged pt to follow up with eye doctor for vision changes Provided pt with office number to call and r/s cancelled appt Advised pt she can HOLD dabrafenib/trametinib due to ongoing fatigue as she has done this in past MTM to follow up in 1 week to assess fatigue improvement Assessment of compliance: non compliant Assessment of adverse effects attributed to drug therapy: Rash - present Visual disturbance - absent GI hemorrhage - absent Pyrexia - absent VTE - absent S/sx of cardiac dysfunction - absent Dose adjustment needed based on lab or adverse drug reaction? Yes, HOLD Follow up: 1 week Geri Acevedo, PharmD, OP Clinical Pharmacist, [facility] Oral Chemotherapy [facility] 01/12/2024, 12:28 PM Time Spent on Encounter: 6 - 10 minutes Encounter Group: Oncology Encounter Interventions Item Category: Oral Chemotherapy Dabrafenib/Trametinib Problem/Rationale: Safety: Adverse medication event - Undesirable effect Pharmacist Intervention(s): Medication held, Refer to Provider Follow-Up, and Toxicity monitoring Magnitude of Intervention: Refer patient to provider for clinic follow (Level 4) Second Item Second Item Category: Topicals Hydrocortisone Problem/Rationale: Effectiveness: Needs additional monitoring - Medication Requires monitoring Pharmacist Intervention(s): Toxicity monitoring Magnitude of Intervention: Monitoring with direction (Level 1) documented in this encounter Plan of Treatment Upcoming Encounters Date Type Department Care Team (Late st Contact Info) Description 01/20/2024 9:45 AM EDT Pharmacy Pharmacy Hematology Oncology [facility] [address] [place] [address] [facility], [facility] Hem/Onc [address] [place] [address] 01/29/2024 8:20 AM EDT Office Visit [facility] [address] [place] [phone] Martin Solorio MD [address] [place] [address] 10/05/2024 12:30 PM EDT Telemedicine Care at Home [address], [place] [id number] Kori Dumont PA-C [address] [place] [address] Scheduled Procedures Name Priority Associated Diagnoses Date/Ti me COLONOSCOPY FLEXIBLE PROXIMA L DIAGNOSTIC Recall Family history of colon cancer Health Maintenance Due Date Last Done Comments DISCUSS TOBACCO CESSATION (REFER TO SMARTSET #5265) 1960 HIV Screening 1973 Alpha-1 Antitrypsin 1976 Hepatitis C Screening 1976 Cologuard 2003 Fecal Occult Blood Test 2003 Sigmoidoscopy 2003 Mammogram 02/06/2022 02/06/2021, 0810/2019, 02/01/2020, Additional history exists DXA Scan 2023 Pneumococcal Vaccine: 65+ Years (3 of 3 - PPSV23 or PCV20) 05/03/2023 03/08/2023, 04/22/2022, 04/08/2019, Additional history exists COVID-19 Vaccine ( - 2022- season) 2023 06/26/2023, 10/03/2020, 09/12/2020 TSH 08/08/2024 08/08/2023, 11/2023, 06/26/2022, Additional history exists GFR 09/03/2024 09/03/2023, 07/21, 05/27/2023, Additional history exists O2 ASSESSMENT COMPLETED IN PAST YEAR FOR COPD 09/08/2024 09/08/2023 Depression Screening 09/10/2024 09/10/2023 Colonoscopy 06/05/2026 06/05/2021, 05/21, 08/10/2010 Colorectal Cancer Screening 06/05/2026 Albumin/Creatinine Ratio 07/25/2026 07/25/2023 Diabetes Screening 09/08/2026 09/08/2023, 0 09/03/2023, 08/08/2023, Additional history exists DTaP,Tdap,and Td Vaccines (2 - Td or Tdap) 02/20/2031 02/20/2021, 04/20/2007 RETIRED - COLONOSCOPY-EVERY 5 YRS AGES 18-100 Discontinued 06/05/2021, 06/05/2021, 08/10/2010, Additional history exists Zoster Vaccines Completed 07/17/2022, 04/22/2022 Influenza Vaccine (FLU shot) Completed 03/08/2023, 04/04/2021, 04/04/2021, Additional history exists GARDASIL-HPV IMMUNIZATION SERIES Aged Out No longer eligible based on patient's age to complete this topic Hepatitis B Aged Out No longer eligi ble based on patient's age to complete this topic MENINGOCOCCAL (MENACTRA/MENVEO) Aged Out No longer eligible based on patient's age to complete this topic documented as of this encounter Medical Devices Implanted Type Area Veneer Slicing Machine Operator Device Identifier Shelf Expiration Date Model / Serial / Lot Cover Nilda Hole 24mm 421.528 - [id number] Implanted:Qty: 1 on 08/20/2021 by Joni Hand III, MD at OR [facility] Right: Head SYNTHES MAXILLOFACIAL 421.528 / / Plate Y Ti Lo Db 6h 21 421.517 - [id number] Implanted:Qty: 1 on 08/20/2021 by Joni Hand III, MD at OR [facility] Right: Head SYNTHES MAXILLOFACIAL 421.517 / / Screw Ti Lo Pro Sd 4mm 400.834 - [id number] Implanted:Qty: 10 on 08/20/2021 by Joni Hand III, MD at OR [facility] Right: Head SYNTHES MAXILLOFACIAL 400.834 / / documented as of this encounter Visit Diagnoses Diagnosis Malignant melanoma of left lower extremity (HCC)- Primary documented in this encounter Advance Directives * [...] Question Answer Comments Discussion of Advance Direct wyalon occurred with: Not Discussed due to patient's [...] Directives occurred with: Not Discussed Care Teams Grinding And Spraying Supervisor Relationship Specialty Start Date End Date Martin Solorio MD [address] [place] [facility] [place] [address] PCP - General Family Medicine 02/20/21 documented as of this encounter
--- OUTSIDE RECORDS SUMMARY | 2024-02-27 02:27 | External Medical Summary | Summary of Care ---
Author Name Unknown Organization [facility] Address [address] [facility] [facility] [address] Phone [phone] Care Team Providers Care Embedded Processor Name Role Phone Martin Solorio MD Primary Care Provider [phone] Reason for Visit * Reason Onset Date Comments Forms Request 11/14/2023 Aflac Encounter Details Date Type Department Care Team (Late st Contact Info) Description 11/14/2023 Telephone Hematology/Oncology [facility] [place] [address] [facility] [place] [address] Benja Watkins MD [address] [facility] [place] [address] Forms Request (Aflac) Allergies Active Allergy Reactions Criticality Noted Date Comments Erythromycin 08/15/1997 seizures documented as of this encounter (statuses as of 11/19/2023) Medications Medication Sig Dispensed Refills Start Date [...] THE EVENING 450 Tablet 5 10/23/2023 Active Ondansetron HCl 8 MG Oral Tablet (Zofran)Indication s:Malignant melanoma of left lower extremity (HCC),Malignant 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) TAKE 1 TABLET BY MOUTH TWICE DAILY 30 MIN PRIOR TO ADMINISTRATION OF TAFINLAR 60 Tablet 0 10/26/2023 Active Trametinib Dimethyl Sulfoxide 0.5 MG Oral Tablet (Mekinist)Indicati ons:Malignant melanoma of left lower extremity (HCC) Take 3 tablets (1.5mg) by mouth in the morning. 90 Tablet 5 10/27/2023 Active Levothyroxine Sodium 200 MCG Oral Tablet TAKE 1 TABLET BY MOUTH ONCE DAILY IN THE MORNING AT LEAST 30 MIN BEFORE BREAKFAST OR OTHER MEDS 90 Tablet 1 11/14/2023 Active documented as of this encounter (statuses as of 11/19/2023) Active Problems Problem Noted Date Diagnosed Date Cerebral atrophy 09/30/2023 Left sided lacunar infarction 09/30/2023 Spinal stenosis of cervical region 09/30/2023 Coronary artery disease invo lving [place] coronary artery of [place] heart without angina pectoris 09/30/2023 Pulmonary nodules [...] as of this encounter (statuses as of 11/19/2023) Resolved Problems Problem Noted Date Diagnosed Date [...] as of this encounter (statuses as of 11/19/2023) Immunizations Name Administration Dates Next Due COVID-19, [...] money to get more. Never true 09/16/2023 Sex and Gender Information Value Date [...] encounter Miscellaneous Notes * Telephone Encounter - Malou Mejía LPN - 11/19/2023 10:04 AM EDT Form faxed to [facility] [employer] Case number on cover sheet to Attn: Dennise Sol, fax confirmation received 32-pages. My G sent. * Telephone Encounter - Malou Mejía LPN - 11/14/2023 3:50 PM EDT Faxed form from [facility] received, completed, awaiting provider signature. documented in this encounter Plan of Treatment Upcoming Encounters Date Type Department Care Team (Late st Contact Info) Description 01/12/2024 9:45 AM EDT Pharmacy Pharmacy Hematology Oncology [facility] [address] [place] [address] [facility] Hem/Onc [address] [place] [address] 01/29/2024 8:20 AM EDT Office Visit [facility] [address] [place] [address] Martin Solorio MD [address] [place], [place] [id number] 10/05/2024 12:30 PM EDT Telemedicine Care at Home [address] [place] [address] Kori Duomnt PA-C [address] [place] [address] Scheduled Procedures Name Priority Associated Diagnoses Date/Ti me COLONOSCOPY FLEXIBLE PROXIMA L DIAGNOSTIC Recall Family history of colon cancer Health Maintenance Due Date Last Done Comments DISCUSS TOBACCO CESSATION (REFER TO SMARTSET #7371) 1960 HIV Screening 1973 Alpha-1 Antitrypsin 1976 Hepatitis C Screening 1976 Cologuard 2003 Fecal Occult Blood Test 2003 Sigmoidoscopy 2003 Mammogram 02/06/2022 02/06/2021, 10/2019, 02/01/2020, Additional history exists DXA Scan 2023 Pneumococcal Vaccine: 65+ Years (3 of 3 - PPSV23 or PCV20) 05/03/2023 03/08/2023, 04/22/2022, 04/08/2019, Additional history exists TSH 08/08/2024 08/08/2023, 11/2023, 06/26/2022, Additional history [...] Completed 03/08/2023, 04/04/2021, 04/04/2021, Additional history exists COVID-19 Vaccine Completed 06/26/2023, , 09/12/2020 GARDASIL-HPV IMMUNIZATION SERIES Aged Out No longer eligible based on patient's age to complete this topic Hepatitis B Aged Out No longer eligi ble based on patient's age to complete this topic MENINGOCOCCAL (MENACTRA/MENVEO) Aged Out No longer eligible based on patient's age to complete this topic documented as of this encounter Medical Devices Implanted Type Area Raw Juice Weigher Device Identifier Shelf Expiration Date Model / Serial / Lot Cover Nilda Hole 24mm 421.528 - [id number] Implanted:Qty: 1 on 08/20/2021 by Joni Hand III, MD at OR [facility] Right: Head SYNTHES MAXILLOFACIAL 421.528 / / Plate Y Ti Lo Db 6h 21 421.517 - [id number] Implanted:Qty: 1 on 08/20/2021 by Joni Hand III, MD at OR [facility] Right: Head SYNTHES MAXILLOFACIAL 421.517 / / Screw Ti Lo Pro Sd 4mm 400.834 - [id number] Implanted:Qty: 10 on 08/20/2021 by Joni Hand III, MD at OR [facility] Right: Head SYNTHES MAXILLOFACIAL 400.834 / / documented as of this encounter Advance Directives Latest Code Status on File Code Status Date Activated Date Inactivated Comments Full Code 09/08/2023 10:37 AM 09/08/2023 6:48 PM This order reflects the patients wishes and were consensually agreed upon. Question Answer Comments Discussion of Advance Directives occurred with: Not Discussed due to patient's condition Code Status History Code Status Date Activated Date Inactivated Comments Full Code 09/08/2023 7:08 AM 09/08/2023 10:37 AM This order reflects the patients wishes and were consensually agreed upon. Question Answer Comments Discussion of Advance Directives occurred with: Not Discussed due to patient's condition Full Code 09/21/2021 6:15 PM 09/23/2021 5:59 PM This or fabiola reflects the patients wishes and were consensually agreed upon. Question Answer Comments Discussion of Advance Directives occurred with: Patient Full Code 08/17/2021 10:44 PM 08/21/2021 6:24 PM This order reflects the patients wishes and were consensually agreed upon. Full Code 12/26/2017 10:25 AM 12/26/2017 7:57 PM This o rder reflects the patients wishes and were consensually agreed upon. Question Answer Comments Discussion of Advance Directives occurred with: Not Discussed Care Teams Embedded Processor Relationship Specialty Start Date End Date Martin Solorio MD [address] [place] [address] PCP - General Family Medicine 02/20/21 documented as of this encounter
--- OUTSIDE RECORDS SUMMARY | 2024-02-27 02:27 | External Medical Summary | Summary of Care ---
Author Name Unknown Organization [facility] Address [address] [place] [address] Phone [phone] Care Team Providers Care Payable Representative Name Role Phone Martin Solorio MD Primary Care Provider [phone] Reason for Visit * Reason Comments Outpatient Testing Encounter Details Date Type Department Care Team (Late st Contact Info) Description 01/29/2024 9:40 AM EDT Laboratory Laboratory, [place] [address] [place] [address] [place] [address], [place] [phone] Malignant melanoma of left lower extremity (HCC); [...] region 09/30/2023 Coronary artery disease invo lving [place] coronary artery of [place] heart without angina pectoris 09/30/2023 Pulmonary nodules [...] 02/04/2024 2:15 PM EDT Office Visit Hematology/Oncology [facility] [address] [place] [address] Benja Watkins MD [address] [facility] [place] [address] 02/13/2024 8:00 AM EDT Imaging Radiology [address] [facility] [place] [address] 03/02/2024 9:45 AM EDT Pharmacy Pharmacy Hematology Oncology [facility] [address] [place] [address] [facility] [address] [place] [address] 08/02/2024 8:20 AM EST Office Visit [facility] [address] [place] [address] Martin Solorio MD [address], [place] [id number] 10/05/2024 12:30 PM EDT Telemedicine Care at Home [address] [place] [address] Kori Dumont PA-C [address] [place] [address] Pending Results Name Type Priority Associated Diagnoses Date /Time CBC WITH WBC DIFFERENTIAL Lab STAT Malignant melanoma of left lower extremity (HCC) 01/29/2024 9:47 AM EDT COMPREHENSIVE METABOLIC PANEL Lab STAT Malignant melanoma of left lower extremity (HCC) 01/29/2024 9:47 AM EDT TSH WITH FREE T4 IF INDICATED Lab Routine Centrilobular emphysema (HCC) 01/29/2024 9:47 AM EDT CARBAMAZEPINE LEVEL Lab Routine Centrilobular emphysema (HCC) 01/29/2024 9:47 AM EDT CBC Lab STAT Malignant melanoma of left lower extremity (HCC) 01/29/2024 9:47 AM EDT DIFFERENTIAL, AUTOMATED Lab STAT Malignant melanoma of left lower extremity (HCC) 01/29/2024 9:47 AM EDT Scheduled Procedures Name Priority Associated [...] luiz from 1976 (Patient Declined After Education) TSH 08/08/2024 08/08/2023, 11/2023, 06/26/2022, Additional history exists GFR 09/03/2024 09/03/2023, 07/21, 05/27/2023, Additional history exists O2 ASSESSMENT COMPLETED IN PAST YEAR FOR COPD 09/08/2024 09/08/2023 Depression Screening 09/10/2024 09/10/2023 DISCUSS TOBACCO CESSATION (REFER TO SMARTSET #3291) 01/28/2025 01/29/2024 Colonoscopy 06/05/2026 06/05/2021, 05/21, 08/10/2010 Colorectal Cancer [...] this encounter Medical Devices Implanted Type Area Retail Pharmacy Merchandiser Device Identifier Shelf Expiration Date Model / Serial / Lot Cover Nilda Hole 24mm 421.528 - [id number] Implanted:Qty: 1 on 08/20/2021 by Joni Hand III, [place] [facility] [place]: Head SYNTHES MAXILLOFACIAL 421.528 / / Plate Y Ti Lo Db 6h 21 421.517 - [id number] Implanted:Qty: 1 on 08/20/2021 by Joni Hand III, [place] [facility] [place]: Head SY[employer]THES MAXILLOFACIAL 421.517 / / Screw Ti Lo Pro Sd 4mm 400.834 - [id number] Implanted:Qty: 10 on 08/20/2021 by Joni Hand III, [place] [facility] [place]: Head SYNTHES MAXILLOFACIAL 400.834 / / [...] Directives occurred with: Not Discussed Care Teams Payable Representative Relationship Specialty Start Date End Date Martin Solorio MD [address] [place] [address] PCP - General Family Medicine 02/20/21 documented as of this encounter
--- OUTSIDE RECORDS SUMMARY | 2024-02-27 02:27 | External Medical Summary | Summary of Care ---
Author Name Unknown Organization [facility] Address [address] [place] [place] [address] Phone [phone] Care Team Providers Care Mgmt Consultant Name Role Phone Martin Solorio MD Primary Care Provider [phone] Reason for Visit * Reason Comments eRx-Medication Refill Encounter Details Date Type Department Care Team (Late st Contact Info) Description 12/23/2023 Refill Hematology/Oncology Archana More[place] [address] [facility] [place] [address] [facility] [address] [facility] [address] Malignant melanoma of left lower extremity (HCC); Malignant 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) Allergies Active Allergy Reactions Criticality Noted Date Comments Erythromycin 08/15/1997 seizures documented as of this encounter (statuses as of 12/23/2023) Medications Medication Sig Dispensed Refills Start Date [...] THE MORNING 90 Tablet 1 4 Active carBAMazepine ER 200 MG Oral Tablet Extended Release 12 Hour (Tegretol-Xr)Radha cations: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) TAKE 3 TABLETS BY MOUTH IN THE MORNING AND 2 IN THE EVENING 450 Tablet 5 4 Active Trametinib Dimethyl Sulfoxide 0.5 MG [...] ADMINISTRATION OF TAFINLAR 60 Tablet 4 Active Ondansetron HCl 8 MG Oral Tablet (Zofran)Indicatio ns:Malignant melanoma of left lower extremity (HCC),Malignant 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) TAKE 1 TABLET BY MOUTH TWICE DAILY 30 MIN PRIOR TO ADMINISTRATION OF TAFINLAR 60 Tablet 4 024 Discontinued documented as of this encounter (statuses as of 12/23/2023) Active Problems Problem Noted Date Diagnosed Date Cerebral atrophy 09/30/2023 Left sided lacunar infarction 09/30/2023 Spinal stenosis of cervical region 09/30/2023 Coronary artery disease invo lving [place] coronary artery of [place] heart without angina pectoris 09/30/2023 Pulmonary nodules [...] as of this encounter (statuses as of 12/23/2023) Resolved Problems Problem Noted Date Diagnosed Date [...] as of this encounter (statuses as of 12/23/2023) Immunizations Name Administration Dates Next Due COVID-19, [...] encounter Miscellaneous Notes * Telephone Encounter - Jadiel Hirsch MD - 12/23/2023 4:33 PM EDTSigned Prescriptions: Disp Refills Ondansetron HCl 8 MG Oral Tablet (Zofran) 60 Tab*0 Sig: TAKE 1 TABLET BY MOUTH TWICE DAILY 30 MIN PRIOR TO ADMINISTRATION OF TAFINLAR Authorizing Provider: JADIEL HIRSCH * Telephone Encounter - Bj Lara RN - 12/23/2023 2:27 PM EDTPending Prescriptions: Disp Refills Ondansetron HCl 8 MG Oral Tablet 60 Tab*0 Sig: TAKE 1 TABLET BYMOUTH TWICE DAILY 30 MIN PRIOR TO ADMINISTRATION OF TAFINLAR documented in this encounter Plan of Treatment Upcoming Encounters Date Type Department Care Team (Late st Contact Info) Description 01/12/2024 9:45 AM EDT Pharmacy Pharmacy Hematology Oncology [facility] [address] [place] [address] [facility] [place] Hem/Onc [address] [place] [address] 01/29/2024 8:20 AM EDT Office Visit [address] [address] Martin Solorio MD [address] [place] [address] 10/05/2024 12:30 PM EDT Telemedicine Care at Home [address] [place] [address] Kori Dumont PA-C [address] [place] [address] Scheduled Procedures Name Priority Associated Diagnoses Date/Ti me COLONOSCOPY FLEXIBLE PROXIMA L DIAGNOSTIC Recall Family history of colon cancer Health Maintenance Due Date Last Done Comments DISCUSS TOBACCO CESSATION (REFER TO SMARTSET #3958) 1960 HIV Screening 1973 Alpha-1 Antitrypsin 1976 Hepatitis C Screening 1976 Cologuard 2003 Fecal Occult Blood Test 2003 Sigmoidoscopy 2003 Mammogram 02/06/2022 02/06/2021, 0810/2019, 02/01/2020, Additional history exists DXA Scan 2023 Pneumococcal Vaccine: 65+ Years (3 of 3 - PPSV23 or PCV20) 05/03/2023 03/08/2023, 04/22/2022, 04/08/2019, Additional history exists COVID-19 Vaccine (2022- season) 2023 06/26/2023, 10/03/2020, 09/12/2020 TSH 08/08/2024 [...] this encounter Medical Devices Implanted Type Area Server Assistant Device Identifier Shelf Expiration Date Model / Serial / Lot Cover Nilda Hole 24mm 421.528 - [id number] Implanted:Qty: 1 on 08/20/2021 by Joni Hand III, MD at [place] [facility] [place] Right: Head [employer] 421.528 / / Plate Y Ti Lo Db 6h 21 421.517 - [id number] Implanted:Qty: 1 on 08/20/2021 by Joni Hand III, MD at [place] [facility] [place] Right: Head [employer] 421.517 / / Screw Ti Lo Pro Sd 4mm 400.834 - [id number] Implanted:Qty: 10 on 08/20/2021 by Joni Hand III, MD at [place] [facility] [place] Right: Head SYNTHES [...] Directives occurred with: Not Discussed Care Teams Mgmt Consultant Relationship Specialty Start Date End Date Martin Solorio MD [address] [facility] [place] [address] PCP - General Family Medicine 02/20/21 documented as of this encounter
--- OUTSIDE RECORDS SUMMARY | 2024-02-27 02:27 | External Medical Summary | Summary of Care ---
Author Name Unknown Organization [facility] Address [address] [place] [address] Phone [phone] Care Team Providers Care Plug Paster Name Role Phone Martin Solorio MD Primary Care Provider [phone] Reason for Visit * Reason Comments Medication Management Encounter Details Date Type Department Care Team (Late st Contact Info) Description 01/20/2024 9:45 AM EDT Pharmacy Pharmacy Hematology Oncology [facility] [address] [place] [address] [facility] [place] [facility] Hem[facility]Onc [address] [place] [address] Malignant melanoma of left lower extremity (HCC)* Allergies Active Allergy Reactions Criticality Noted Date Comments Erythromycin 08/15/1997 seizures documented as of this encounter (statuses as of 01/20/2024) Medications Medication Sig Dispensed Refills Start Date [...] as of this encounter (statuses as of 01/20/2024) Active Problems Problem Noted Date Diagnosed Date Cerebral atrophy 09/30/2023 Left sided lacunar infarction 09/30/2023 Spinal stenosis of cervical region 09/30/2023 Coronary artery disease invo lving [place] coronary artery of [place] heart without angina pectoris 09/30/2023 Pulmonary nodules [...] as of this encounter (statuses as of 01/20/2024) Resolved Problems Problem Noted Date Diagnosed Date [...] as of this encounter (statuses as of 01/20/2024) Immunizations Name Administration Dates Next Due COVID-19, [...] this encounter Progress Notes * Geri Acevedo, [facility] - 01/20/2024 10:59 AM EDT MEDICATION THERAPY MANAGEMENT DABRAFENIB & TRAMETINIB TREATMENT PROGRESS NOTE Judy Garcia [phone] Patient Phone Numbers : Kwame Communication: Spoke to: Patient Treatment: Medication: Dabrafenib // Trametinib Indication: metastatic melanoma Dose: 75 mg BID // 1.5 mg daily ( 02/2022) Administration: empty stomach (1 hour before or 2 hours after a meal) Start Date: 10/04/21 Primary Driller And Reamer/Oncologist: Dr. Noman Watkins Supportive Care Meds: Ondansetron [...] 2023- due to fatigue; held 09/28/23-10/02/23 for fatigue; held 01/13/24-01/20/24 for fatigue Interval History: Per OV 02/27/23, pt will consider chemo holiday but will continue current plan for now. Pt to have repeat PET-CT scan early April 2023 Per TE 04/24/23, pt insurance changed and [facility] to fill dabrafenib and trametinib States she is feeling better and will resume treatment 01/21/24 Changes to medication list since last visit? No Assessment and Plan: Encouraged pt to call if fatigue resumes or pt decides to delay restart until after holiday Ordered future cbcd and cmp to be complete prior to OV 02/03 Assessment of compliance: N/A Assessment of adverse effects attributed to drug therapy: N/A Dose adjustment needed based on lab or adverse drug reaction? Yes, resume Follow up: 2 weeks OV; 6 weeks MTM Geri Acevedo, PharmD, BCOP Clinical Pharmacist, [facility] Oral Chemotherapy [facility] 01/20/2024, 11:07 AM Suggested lab monitoring: LVEF (via ECHO or MUGA) baseline, @ 1 month, then every 2-3 months; dermatologic eval baseline, every 2 months during therapy, then for up to 6 months after d/c; BMP/glucose(particularly in patients with pre-existing DM/hyperglycemia) every 3-4 months; CBCd/LFTs baseline,then every 3-4 months. Time Spent on Encounter: 6 - 10 minutes Encounter Group: Oncology Encounter Interventions Item Category: Oral Chemotherapy Dabrafenib/Trametinib Problem/Rationale: Safety: Needs additional monitoring - Medication Requires monitoring Pharmacist Intervention(s): Medication resumed, Orders labs, and Toxicity monitoring Magnitude of Intervention: Modification of medication for asymtomatic patients (Level 2) documented in this encounter Plan of Treatment Upcoming Encounters Date Type Department Care Team (Late st Contact Info) Description 01/29/2024 8:20 AM EDT Office Visit [facility] [address] [place] [id number] Martin Solorio MD [address] [place] [address] 02/04/2024 2:15 PM EDT Office Visit Hematology/Oncology [facility]a [facility]ira [place] [address] [facility] [place] [phone] Benja Watkins MD [address] [facility] [place] [address] 03/02/2024 9:45 AM EDT Pharmacy Pharmacy Hematology Oncology [facility] [address] [place] [address] [facility] [address] [place] [address] 10/05/2024 12:30 PM EDT Telemedicine Care at Home [address] [place] [address] Kori Dumont PA-C [address] [place], [place] [id number] Scheduled Procedures Name Priority Associated Diagnoses Date/Ti me COLONOSCOPY FLEXIBLE PROXIMA L DIAGNOSTIC Recall Family history of colon cancer Health Maintenance Due Date Last Done Comments DISCUSS TOBACCO CESSATION (REFER TO SMARTSET #6798) 1958 HIV Screening 1973 Alpha-1 Antitrypsin 1976 Hepatitis C Screening 1976 Cologuard 2003 Fecal Occult Blood Test 2003 Sigmoidoscopy 2003 Mammogram 02/06/2022 02/06/2021, 080 10/2019, 02/01/2020, Additional history exists DXA Scan 2023 Pneumococcal Vaccine: 65+ Years (3 of 3 - PPSV23 or PCV20) 05/03/2023 03/08/2023, 04/22/2022, 04/08/2019, Additional history exists COVID-19 Vaccine ( season) 2023 06/26/2023, 10/03/2020, 09/12/2020 Influenza Vaccine (FLU shot) (#1) 2024 03/08/2023, 04/04/2021, 04/04/2021, Additional history exists TSH 08/08/2024 08/08/2023, 0 11/2023, 06/26/2022, Additional history exists GFR 09/03/2024 [...] history exists Zoster Vaccines Completed 07/17/2022, 04/22/2022 GARDASIL-HPV IMMUNIZATION SERIES Aged Out No longer eligible based on patient's age to complete this topic Hepatitis B Aged Out No longer eligi ble based on patient's age to complete this topic MENINGOCOCCAL (MENACTRA/MENVEO) Aged Out No longer eligible based on patient's age to complete this topic documented as of this encounter Medical Devices Implanted Type Area Monotype Machinist Device Identifier Shelf Expiration Date Model / Serial / Lot Cover Stuart Hole 24mm 421.528 - [id number] Implanted:Qty: 1 on 08/20/2021 [place] Joni Hand III[place] [facility] [place] [employer] 421.528 / / Plate Y Ti Lo Db 6h 21 421.517 - [id number] Implanted:Qty: 1 on 08/20/2021 by Joni Hand III, [place] [facility] [place] Head [employer] 421.517 / / Screw Ti Lo Pro Sd 4mm 400.834 - [id number] Implanted:Qty: 10 on 08/20/2021 by Joni Hand III, [place] [facility] [place] Head [employer]ILL[employer] 400.834 / / [...] Directives occurred with: Not Discussed Care Teams Plug Paster Relationship Specialty Start Date End Date Martin Solorio MD [address] [place] [address] PCP - General Family Medicine 02/20/21 documented as of this encounter
--- OUTSIDE RECORDS SUMMARY | 2024-02-27 02:27 | External Medical Summary | Summary of Care ---
Author Name Unknown Organization [facility] Address [address] [place] [address] Phone [phone] Care Team Providers Care Heel Seat Trimmer Name Role Phone Martin Solorio MD Primary Care Provider [phone] Reason for Visit * Reason Comments Follow Up Return in 6 months Encounter Details Date Type Department Care Team (Latest Contact Info) Description 01/29/2024 8:20 AM EDT Office Visit [facility] [address] [place] [address] Martin Solorio MD [address] [place] [address] Centrilobular emphysema (HCC)*; Encounter for screening mammogram for malignant neoplasm of breast; Tobacco use disorder Allergies Active Allergy Reactions Criticality Noted Date [...] region 09/30/2023 Coronary artery disease invo lving kake coronary artery of kake heart without angina pectoris 09/30/2023 Pulmonary nodules [...] Sign Reading Time Taken Comments Blood Pressure 128/78 01/29/2024 8:23 AM EDT Pulse 80 01/29/2024 8:23 AM EDT Temperature 36.4 C (97.6 F) 01/29/2024 8:23 AM ED T Respiratory Rate 18 01/29/2024 8:23 AM EDT Oxygen Saturation 94% 01/29/2024 8:23 AM EDT Inhaled Oxygen Concentration - - Weight 61 kg (134 lb 6.4 oz) 01/29/2024 8:23 AM EDT Height 154.9 cm (5' 1") 01/29/2024 8:23 AM EDT Body Mass Index 25.39 01/29/2024 8:23 AM EDT documented in this [...] No 09/21/2021 documented as of this encounter Patient Instructions * Patient Instructions* Amarilis Pardo LPN - 01/29/2024 8:36 AM EDT Judy Garcia [id number] Benefits of Quitting Smoking Why should I quit smoking? Smoking is bad for you and bad for others around you. Smoking causes cancer, heart attacks, hardening of the arteries, bronchitis, emphysema, cough, shortness of breath, wrinkles, and premature aging. It stains teeth and fingers, irritates the eyes, furs the tongue, and causes bad breath. People are living longer today than their parents did, so it makes sense to work on staying healthy and independent. One of the best ways to do this is to quit smoking. Benefits of quitting smoking It takes time to reverse many years' worth of smoking damage to your body, but some benefits of quitting smoking begin immediately. For example, you're financially better off on day one. Your health starts to improve right away, too, because you remove a former constant source of irritation from your lungs. People may comment that you no longer cough. Your blood circulation is likely to improve, so your hands and feet may feel warmer. Your teeth, breath, and fingers are no longer a turn-off. Benefits that you're less aware of also begin to occur. These include better resistance to colds and respiratory infections, less likelihood of major heart and circulation problems, less risk of high blood pressure or stroke, and less risk of developing cancer. The following arguments are often presented by smokers as justifications for their continuing to smoke: "I have to sometime, so I might as well enjoy life until then." True, but as a smoker you're much more likely to of a heart attack or cancer - neither of whichare very pleasant ways to go. "I'm only hurting myself." True, if you don't count the heartache and grief you may cause your loved ones by your early or permanent disability, or the damage of your smoke to others. "Lots of people who smoke live to ripe old ages in perfect health." True, but this is rare. Nearly all smokers have significant health problems. "Smoking is one of my pleasures. I don't want to quit." Smoking is associated with pleasure because the nicotine in tobacco is an addictive drug. Your bodywill continue to crave a regular supply until you can overcome the habit. Smoking is always a disadvantage to your health and that of your loved ones. "It's my choice and I choose to smoke." True. It is your choice. In a survey of older former smokers, more than 90% quit on their own because they decided to do so. The main reasons they gave for quitting were wanting to stay healthy, following health care provider's advice, regaining control of their lives, and making a loved one happy . [place] Department of Health Quit Line [place] [employer] Free Quitline 2-080 QUIT NOW ( ) Your insurance company may also have more information and helpful programs to help you quit. Some may even help cover some of the costs. For example, [facility] members can call to find out about their smoking cessation program and medication coverage. Developed by Ananya Syed MD, for [employer]. Published by [employer]. Last modified: 2005-11-29 Last reviewed: 2005-09-18 This content is reviewed periodically and is subject to change as new health information becomes available. The information is intended to inform and educate and is not a replacement for medical evaluation, advice, diagnosis or treatment by a healthcare professional. Adult Health Advisor 2006.4 Index Adult Health Advisor 2006.4 Credits Copyright 2006 [employer] and/or one of its subsidiaries. All Rights Reserved. documented in this encounter Progress Notes * Martin Solorio MD - 01/29/2024 9:18 AM EDT Subjective: Judy Garcia is a 63 year old female. Chief Complaint Patient presents with Follow Up Return in 6 months HPI: 63-year-old seen today as a routine six-month recheck. She is scheduled to see Dr. Watkins in a few days time for routine visit. At this point she does not have any routine follow-up with neuro surgery at [place] or Neurology. 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 She had MRI of the brain to 224 showing increase size of an enhancing lesion in the left fronta l lobe (9 by 8 mm). She subsequently had neuro surgical intervention at [facility] and what I seeon pathology that no cancer was noted. She has due for a PET-CT scan which Dr. Watkins orders. She had to cancel her PET-CT scan and just needs to reschedule. Her complaints are of ongoing fatigue. This is not a new complaint Um but has been notable at by myself as well as Dr. Watkins in the past. She questions how much the Paxil is helping. Um she had discussion with her about this and wondered if there might be another option. She has not interested in counseling. She is on Paxil 40 mg a day. She remains on Tegretol-per her account 200 mg, 2 tablets twice a day. She has history hypothyroidism. She is on thyroid replacement. TSH was slightly elevated 6 months ago. 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) Hx of melanoma of skin Malignant 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) Brain lesion Cerebral atrophy (HCC) Left sided lacunar infarction (HCC) Spinal stenosis of cervical region Coronary artery disease involving kake coronary artery of kake heart without angina pectoris Pulmonary nodules Centrilobular emphysema (HCC) Left atrial enlargement Mild mitral regurgitation Mild tricuspid regurgitation Mild pulmonary valve regurgitation Current Outpatient Medications Medication Sig Dispense Refill [...] MOUTH IN THE MORNING 90 Tablet 1 carBAMazepine ER 200 MG Oral Tablet Extended Release 12 Hour (Tegretol-Xr) TAKE 3 TABLETS BY MOUTH IN THE MORNING AND 2 IN THE EVENING 450 Tablet 5 Trametinib Dimethyl Sulfoxide 0.5 MG Oral Tablet [...] TO ADMINISTRATION OF TAFINLAR 60 Tablet 0 No current facility-administered medications for this visit. Review of patient's allergies indicates: Allergen Reactions Erythromycin seizures Objective: BP 128/78 | Pulse 80 | Temp 36.4 C (97.6 F) (Tympanic) | Resp 18 | Ht 1.549 m (5' 1") | Wt 61 kg (134 lb 6.4 oz) | SpO2 94% | BMI 25.39 kg/m | BSA 1.62 m Physical Exam: Note that her weight is down at least 15 lb dating back 2 years. She blames some of the recent weight loss to being very active trying to care for her mother in [place] for couple weeks recently CONST: alert, pleasant, no acute distress HEAD: normocephalic, atraumatic NECK: supple, soft, no adenopathy Eyes - PERRLA, EOM'I OROPHARYNX: clear, no swelling or erythema, moist CV: regular rate and rhythm, no murmur CHEST: clear to auscultation bilaterally, no rales or wheezing ABD: soft, non tender, non distended, no masses or hepatosplenomegaly EXT: no edema, no joint swelling or deformities, NEURO: AAOx3, no gross focal deficits, cerebellar signs normal, affect appropriate MENTAL STATUS: no evidence of thought disorder, no delusional thought, no evidence of paranoia, thought is non-tangential. SKIN: She has multiple papular squamous erythematous scaly well demarcated 2-3 cm patches in the left thigh and left forearm. ASSESSMENT/PLAN: Tobacco use disorder (Primary)-encouraged decreased tobacco Centrilobular emphysema (HCC)-encouraged decreased tobacco Encounter for screening mammogram for malignant neoplasm of breast-we will schedule Ezequiel Monae Metastatic malignant bktnjylf-emelws-yo with Dr. Watkins 02/04/2024. She will need PET-CT scan. History of seizure disorder-continue Tegretol 200 mg 2 tablets twice a day. Check Tegretol level. She also is to have a comprehensive metabolic panel and CBC History hypothyroid-check TSH given slightly high TSH 6 months ago. For now continue levothyroxine 200 mcg daily Depression-we really can not increase the dose of Paxil. I do not want to add Wellbutrin because that would lower seizure threshold. We could switch to a different serotonin reuptake inhibitor. Discussed with the patient in ultimately decided just to continue the Paxil as is. She could change her mind 0. Routine health maintenance-encouraged her to get flu shot and COVID booster in the fall. She does not not need to get RSV vaccine as she had last year. Follow Up: Return in about 6 months (around 07/31/2024) for Return with Physician. | For: Return with Physician | Check-out note: [facility] Martin Solorio MD * Amarilis Pardo LPN - 01/29/2024 8:35 AM EDT SMOKING CESSATION: Pt was educated on smoking cessation and/or tobacco cessation for 5 minutes. 1. The pt was instructed as to the detrimental effects of Tobacco & the serious impact that it has upon their health, especially their current condition, Cancer. 2. Discussed that smoking affects not only the patients health but the health of their family members, children and others exposed to second hand tobacco smoke. 3. Discussed with the patient that the advantages of tobacco cessation are that it will slow progression of their underlying disease, improve lung function and reduce risk for development of cancer and other tobacco related illnesses. 4. Discussed the treatment options with the patient that would include: -Patient Education -Use of nicotine patches gum and losenges -Prescription medications -Pertinent information from Cancer Society's Free Quitline. -Referral to [place] Department of Health/[place] [employer] Free Quitline 1-479.561.8843. 01/29/2024 Amarilis Pardo LPN documented in this encounter Nursing Notes * Amarilis Pardo LPN - 01/29/2024 8:22 AM EDT The patient has been properly identified by confirmation of name and date of . Chief Complaint Patient presents with Follow Up Return in 6 months Patient states she has no concerns today documented in this encounter Plan of Treatment Upcoming Encounters Date Type Department Care Team (Late st Contact Info) Description 02/04/2024 2:15 PM EDT Office Visit Hematology/Oncology [facility] [address] [facility] [place] [address] Benja Watkins MD [address] [facility] [place] [address] 02/13/2024 8:00 AM EDT Imaging Radiology [address] [place] [address] 03/02/2024 9:45 AM EDT Pharmacy [facility] [address] [place] [address] [facility] [place] Hem/Onc [address] [place] [address] 08/02/2024 8:20 AM EST Office Visit [facility] [address] [place] [id number] Martin Solorio MD [address] [place] [address] 10/05/2024 12:30 PM EDT Telemedicine Care at Home [address], [place] [id number] Kori Dumont PA-C [address] [place] [address] Pending Results Name Type Priority Associated Diagnoses Date /Time TSH WITH FREE T4 IF INDICATED Lab Routine Centrilobular emphysema (HCC) 01/29/2024 9:47 AM EDT CARBAMAZEPINE LEVEL Lab Routine Centrilobular emphysema (HCC) 01/29/2024 9:47 AM EDT Scheduled Orders Name Type Priority Associated Diagnoses Orde r Schedule MAMMOGRAM SCREENING SANTOS BILATERAL Medical Imaging Routine Encounter for screening mammogram for malignant neoplasm of breast Expected: 01/29/2024, Expires: 02/28/2025 TSH WITH FREE T4 IF INDICATED Lab Routine Centrilobular emphysema (HCC) Expected: 01/29/2024 (Approximate), Expires: 01/28/2025 CARBAMAZEPINE LEVEL Lab Routine Centrilobular emphysema (HCC) Expected: 01/29/2024 (Approximate), Expires: 01/28/2025 Scheduled Procedures Name Priority Associated Diagnoses Date/Ti me COLONOSCOPY FLEXIBLE PROXIMA L DIAGNOSTIC Recall Family history of colon cancer Health Maintenance Due Date Last Done Comments Alpha-1 Antitrypsin 1976 Cologuard 2003 Fecal Occult Blood Test 2003 Sigmoidoscopy 2003 Mammogram 02/06/2022 02/06/2021, 10/2019, 02/01/2020, Additional history exists COVID-19 Vaccine [...] (Patient Declined After Education) TSH 08/08/2024 08/08/2023, 0 11/2023, 06/26/2022, Additional [...] this encounter Medical Devices Implanted Type Area Assistant Teacher Primary Device Identifier Shelf Expiration Date Model / Serial / Lot Cover [place] Hole 24mm 421.528 - [id number] Implanted:Qty: 1 on 08/20/2021 by Joni Hand III, MD at [place] [facility] Right: Head [employer]NTHES MAXILLOFACIAL 421.528 / / Plate Y Ti Lo Db 6h 21 421.517 - [id number] Implanted:Qty: 1 on 08/20/2021 by Joni Hand III, MD at OR [facility] Right: Head [employer]ES MAXILLOFACIAL 421.517 / / Screw Ti Lo Pro Sd 4mm 400.834 - [id number] Implanted:Qty: 10 on 08/20/2021 by Joni Hand III, MD at OR [facility] Right: Head SY[employer]ES MAXILLOFACIAL 400.834 / / documented as of this encounter Visit Diagnoses Diagnosis Centrilobular emphysema (HCC)- Primary Other emphysema Encounter for screening mammogram for malignant neoplasm of breast Other screening mammogram Tobacco use disorder documented in this encounter Advance Directives * [...] Directives occurred with: Not Discussed Care Teams Heel Seat Trimmer Relationship Specialty Start Date End Date Martin Solorio MD [address] [facility] [place] [address] PCP - General Family Medicine 02/20/21 documented as of this encounter
--- OUTSIDE RECORDS SUMMARY | 2024-02-27 02:27 | External Medical Summary | Summary of Care ---
Author Name Unknown Organization [facility] Address [address] [facility] [place] [address] Phone [phone] Care Team Providers Care Butt Trimmer Name Role Phone Martin Solorio MD Primary Care Provider Encounter Details Date Type Department Care Team (Late st Contact Info) Description 01/23/2024 Orders Only PATIENT PORTAL DO NOT DELETE THIS DEPT USED BY [place] A[place] [id number] Allergies Active Allergy Reactions Criticality Noted Date Comments Erythromycin 08/15/1997 seizures documented as of this encounter (statuses as of 01/23/2024) Medications Medication Sig Dispensed Refills Start Date [...] as of this encounter (statuses as of 01/23/2024) Active Problems Problem Noted Date Diagnosed Date Cerebral atrophy 09/30/2023 Left sided lacunar infarction 09/30/2023 Spinal stenosis of cervical region 09/30/2023 Coronary artery disease invo lving shinnecock coronary artery of shinnecock heart without angina pectoris 09/30/2023 Pulmonary nodules [...] as of this encounter (statuses as of 01/23/2024) Resolved Problems Problem Noted Date Diagnosed Date [...] as of this encounter (statuses as of 01/23/2024) Immunizations Name Administration Dates Next Due COVID-19, [...] Description 01/29/2024 8:20 AM EDT Office Visit [facility] [address] [place] [address] Martin Solorio MD [address] [place] [address] 02/04/2024 2:15 PM EDT [facility] [address] [place] [phone] Benja Watkins MD [address] [place] [address] 03/02/2024 9:45 AM EDT Pharmacy Pharmacy Hematology Oncology [facility] [address] [place] [address] [facility], [facility] Hem/Onc [address] [place] [address] 10/05/2024 12:30 PM EDT Telemedicine Care at Home [address] [place] [address] Kori Dumont PA-C [address] [place] [address] Scheduled Procedures Name Priority Associated Diagnoses Date/Ti me COLONOSCOPY FLEXIBLE PROXIMA L DIAGNOSTIC Recall Family history of colon cancer Health Maintenance Due Date Last Done Comments DISCUSS TOBACCO CESSATION (REFER TO SMARTSET #[id number]) 1958 HIV Screening 1973 Alpha-1 Antitrypsin 1976 [...] 04/04/2021, Additional history exists TSH 08/08/2024 08/08/2023, 11/2023, [...] this encounter Medical Devices Implanted Type Area Delivery Lead Device Identifier Shelf Expiration Date Model / Serial / Lot Cover Louise Hole 24mm 421.528 - [id number] Implanted:Qty: 1 on 08/20/2021 by Joni Hand III, MD at [place] [facility] Right: Head SYNTHES MAXILLOFACIAL 421.528 / / Plate Y Ti Lo Db 6h 21 421.517 - [id number] Implanted:Qty: 1 on 08/20/2021 by Joni Hand III, MD at OR [facility] Right: Head SYNTHES MAXILLOFACIAL 421.517 / / Screw Ti Lo Pro Sd 4mm 400.834 - [id number] Implanted:Qty: 10 on 08/20/2021 by Joni Hand III, MD at [place] [facility] Right: Head SYNTHES MAXILLOFACIAL 400.834 / / [...] Directives occurred with: Not Discussed Care Teams Butt Trimmer Relationship Specialty Start Date End Date Martin Solorio MD [address] [facility] [place] [address] PCP - General Family Medicine 02/20/21 documented as of this encounter
--- OUTSIDE RECORDS SUMMARY | 2024-02-27 02:27 | External Medical Summary | Summary of Care ---
Author Name Unknown Organization [facility] Address [address] [facility] [place] [address] Phone [phone] Care Team Providers Care Sensory Scientist Name Role Phone Martin Solorio MD Primary Care Provider [phone] Encounter Details Date Type Department Care Team (Late st Contact Info) Description 01/20/2024 Orders Only Hematology/Oncology [facility] [place] [address] [facility] [place] [address] Benja Watkins MD [address] [facility] [place] [address] Malignant melanoma of left lower extremity (HCC)* [...] region 09/30/2023 Coronary artery disease invo lving igiugig coronary artery of igiugig heart without angina pectoris 09/30/2023 Pulmonary nodules [...] Description 01/29/2024 8:20 AM EDT Office Visit [facility] [address] [place] [address] Martin Solorio MD [address] [place] [address] 02/04/2024 2:15 PM EDT Office Visit Hematology/Oncology [facility] [address] [place] [phone] Benja Watkins MD [address] [place] [address] 03/02/2024 9:45 AM EDT Pharmacy Pharmacy Hematology Oncology [facility] [address] [place] [address] [facility] [place] [place], [facility] Hem[facility]c [facility] [address] [place] [address] 10/05/2024 12:30 PM EDT Telemedicine Care at Home [address] [place] [address] Kori Dumont PA-C [address] [place] [address] Scheduled Orders Name Type Priority Associated Diagnoses Orde r Schedule CBC WITH WBC DIFFERENTIAL Lab STAT Malignant melanoma of left lower extremity (HCC) Expected: 02/03/2024 (Approximate), Expires: 03/22/2024 COMPREHENSIVE METABOLIC PANEL Lab STAT Malignant melanoma of left lower extremity (HCC) Expected: 02/03/2024 (Approximate), Expires: 03/22/2024 Scheduled Procedures Name Priority Associated Diagnoses Date/Ti me COLONOSCOPY FLEXIBLE PROXIMA L DIAGNOSTIC Recall Family history of colon cancer Health Maintenance Due Date Last Done Comments DISCUSS TOBACCO CESSATION (REFER TO SMARTSET #[id number]) 1958 HIV Screening 1973 Alpha-1 Antitrypsin 1976 Hepatitis C Screening 1976 Cologuard 2003 Fecal Occult Blood Test 2003 Sigmoidoscopy 2003 Mammogram 02/06/2022 02/06/2021, 10/2019, 02/01/2020, Additional history exists DXA Scan 2023 Pneumococcal Vaccine: 65+ Years (3 of 3 - PPSV23 or PCV20) 05/03/2023 03/08/2023, 04/22/2022, 04/08/2019, Additional history exists COVID-19 Vaccine ( - 2022- season) 2023 06/26/2023, 10/03/2020, 09/12/2020 Influenza Vaccine [...] this encounter Medical Devices Implanted Type Area Shells Inspector Device Identifier Shelf Expiration Date Model / Serial / Lot Cover Nilda Hole 24mm 421.528 - [id number] Implanted:Qty: 1 on 08/20/2021 by Joni Hand III, MD at [place] [facility] Right: Head [employer]ES [employer]ILL[employer]IAL 421.528 / / Plate Y Ti Lo Db 6h 21 421.517 - [id number] Implanted:Qty: 1 on 08/20/2021 by Joni Hand III, MD at [place] [facility] Right: Head SY[employer]ES MAXILLOF[employer]IAL 421.517 / / Screw Ti Lo Pro Sd 4mm 400.834 - [id number] Implanted:Qty: 10 on 08/20/2021 by Joni Hand III, MD at [place] [facility] Right: Head SY[employer]ES MAXILLOFACIAL 400.834 / / [...] Directives occurred with: Not Discussed Care Teams Sensory Scientist Relationship Specialty Start Date End Date Martin Solorio MD [address] [facility] [place] [address] PCP - General Family Medicine 02/20/21 documented as of this encounter
--- OUTSIDE RECORDS SUMMARY | 2024-02-27 02:27 | External Medical Summary | Summary of Care ---
Author Name Unknown Organization [facility] Address [address] [place] [address] Phone [phone] Care Team Providers Care Electric Cell Tender Name Role Phone Martin Solorio MD Primary Care Provider [phone] Reason for Visit * Reason Onset Date Comments Test Results 08/22/2023 Unexpected or In determinate Result Encounter Details Date Type Department Care Team (Late st Contact Info) Description 08/22/2023 Telephone Radiology [address] [facility] [place] [id number] Yazan IIIJoni MD [address] [place] [address] Test Results (Unexpected or Indeterminate ... Allergies Active Allergy Reactions Criticality Noted Date Comments Erythromycin 08/15/1997 seizures documented as of this encounter (statuses as of 11/21/2023) Medications Medication Sig Dispensed Refills Start Date End Date Status MULTIVITAMINS PO TABS Take 1 Tablet by mouth every morning. 0 09/10/2007 Active traZODone HCl 100 MG Oral Tablet (Desyrel)Indications: Insomnia, unspecified type TAKE 1 & 1/2 (ONE & ONE-HALF) TABLETS BY MOUTH AT BEDTIME 45 Tablet 5 05/06/2023 Active Losartan Potassium 50 MG Oral Tablet (Cozaar)Indications:H TN, goal below 130/80 Take 1 Tablet by mouth in the morning. 90 Tablet 3 07/31/2023 Active Atorvastatin Calcium 20 MG Oral Tablet (Lipitor)Indications: Dyslipidemia Take 1 Tablet by mouth every evening. 90 Tablet 3 07/31/2023 Active documented as of this encounter (statuses as of 11/21/2023) Active Problems Problem Noted Date Diagnosed Date Cerebral atrophy 09/30/2023 Left sided lacunar infarction 09/30/2023 Spinal stenosis of cervical region 09/30/2023 Coronary artery disease invo lving minto coronary artery of minto heart without angina pectoris 09/30/2023 Pulmonary nodules [...] as of this encounter (statuses as of 11/21/2023) Resolved Problems Problem Noted Date Diagnosed Date [...] as of this encounter (statuses as of 11/21/2023) Immunizations Name Administration Dates Next Due COVID-19, [...] Miscellaneous Notes * Telephone Encounter - Kori David OSA - 08/22/2023 4:06 PM EST Hello- The radiologist discovered an unexpected or indeterminate finding on Judy Garcia ([id number]) and asks that you review the following report. Study Type: MRI BRAIN W WO CONTRAST Date of Study: 08/22/2023 IMPRESSION 1. Continued interval increase in size of the enhancing left frontal lobe lesion that now measures 9 mm x 8 mm, previously measuring 5 mm x 5 mm. Increased edema along the margin of the lesion. 2. Postsurgical changes of right parietal craniotomy with a right parietal lobe resection cavity. Stable irregular enhancement seen along the medial right parietal lobe compared with the prior MRI. Stable T2 prolongation seen within the right parietal lobe compared with the prior MRI. 3. Additional findings as described above. Please respond to this encounter to acknowledge receipt of this message and take responsibility to ensure this report is reviewed. Thank you, KEISHA Lowe Client Service [facility] documented in this encounter Plan of Treatment Upcoming Encounters Date Type Department Care Team (Late st Contact Info) Description 01/12/2024 9:45 AM EDT Pharmacy Pharmacy Hematology Oncology [place] [address] [place] [address] [facility], [facility] Hem/Onc [address] [place] [address] 01/29/2024 8:20 AM EDT Office Visit [facility] [address] [place] [address] Martin Solorio MD [address] [place], [place] [id number] 10/05/2024 12:30 PM EDT Telemedicine Care at Home [address] [place] [address] Kori Dumont PA-C [address] [place] [address] Scheduled Procedures Name Priority Associated Diagnoses Date/Ti me COLONOSCOPY FLEXIBLE PROXIMA L DIAGNOSTIC Recall Family history of colon cancer Health Maintenance Due Date Last Done Comments DISCUSS TOBACCO CESSATION (REFER TO SMARTSET #7960) 1960 HIV Screening 1973 Alpha-1 Antitrypsin 1976 [...] this encounter Medical Devices Implanted Type Area Tank Pumper Panelboard Device Identifier Shelf Expiration Date Model / Serial / Lot Cover [place] Hole 24mm 421.528 - [id number] Implanted:Qty: 1 on 08/20/2021 by Joni Hand III, MD at OR [facility] Right: Head SYNTHES MAXILLOFACIAL 421.528 / / Plate Y Ti Lo Db 6h 21 421.517 - [id number] Implanted:Qty: 1 on 08/20/2021 by Joni Hand III, MD at OR [facility] Right: Head SYNTHES MAXILLOFACIAL 421.517 / / Screw Ti Lo Pro Sd 4mm 400.834 - [id number] Implanted:Qty: 10 on 08/20/2021 by Joni Hand [...] Directives occurred with: Not Discussed Care Teams Electric Cell Tender Relationship Specialty Start Date End Date Martin Solorio MD [address] [facility] [place] [address] PCP - General Family Medicine 02/20/21 documented as of this encounter
--- OUTSIDE RECORDS SUMMARY | 2024-02-27 02:27 | External Medical Summary ---
Author Name Unknown Address Unknown Organization [id number]:LAB[facility]ATORY [facility] [place] - [address] [facility] [place] [address] Laboratory Report Ordering Provider Test Date Status DILLAN LOPEZ 01/29/2024 09:47:14 Final Observation Date Value Abnormality Reference (Units ) Status BUN 01/29/2024 09:47:14 12 6-20 (mg/dL) Final Creatinine 01/29/2024 09:47:14 0.6 0.5-1.0 (mg/dL) Final Glomerular filtration rate/1.73 sq M.predicted [Volume Rate/Area] in Serum, Plasma or Blood by Creatinine-based formula (CKD-EPI) 01/29/2024 09:47:14 >90 >=60 (mL/min) Final eGFR is calculated based on the CKD-EPI 2020 equation Sodium 01/29/2024 09:47:14 137 135-146 (m mol/L) Final Potassium 01/29/2024 09:47:14 4.2 3.5-5.1 (m mol/L) Final Cl 01/29/2024 09:47:14 98 98-107 (mm ol/L) Final CO2 01/29/2024 09:47:14 26 22-32 (mmo l/L) Final Anion gap 01/29/2024 09:47:14 13 7-15 (mmol /L) Final Glucose 01/29/2024 09:47:14 98 70-120 (mg /dL) Final Albumin 01/29/2024 09:47:14 4.1 3.8-5.0 (g /dL) Final AST (Aspartate aminotransferase) 01/29/2024 09:47:14 37 Above high normal 10-35 (U/L) Final Result may be falsely elevat ed due to hemolysis. Alk Phos 01/29/2024 09:47:14 120 35-130 (U/ L) Final Bilirubin, Total 01/29/2024 09:47:14 0.3 <=1 .2 (mg/dL) Final Calcium 01/29/2024 09:47:14 9.2 8.4-10.2 ( mg/dL) Final Protein 01/29/2024 09:47:14 7.1 6.0-8.3 (g /dL) Final ALT (Alanine aminotransferase) 01/29/2024 09:47:14 15 10-35 (U/L) Final Performing Location [facility]ORY [facility] [place] - [address] [facility] [address]
--- OUTSIDE RECORDS SUMMARY | 2024-02-27 02:27 | External Medical Summary | Summary of Care ---
Author Name Unknown Organization [facility] Address [address] [facility] [address] [facility] [address] Phone [phone] Care Team Providers Care Data Warehouse Consultant Name Role Phone Martin Solorio MD Primary Care Provider [phone] Encounter Details Date Type Department Care Team (Late st Contact Info) Description 01/23/2024 Population Health External Data Unspecified Department Allergies Active Allergy Reactions Criticality Noted Date [...] region 09/30/2023 Coronary artery disease invo lving huslia coronary artery of huslia heart without angina pectoris 09/30/2023 Pulmonary nodules [...] Description 01/29/2024 8:20 AM EDT Office Visit [facility] [address] [place] [address] Martin Solorio MD [address] [place] [address] 02/04/2024 2:15 PM EDT Office Visit Hematology/Oncology Ar[facility] [place] [address] [facility] [place] [phone] Benja Watkins MD 200 [place] [address] 03/02/2024 9:45 AM EDT Pharmacy Pharmacy Hematology Oncology [facility] [address] [place] [address] [facility], [facility] Hem/Onc [address] [place] [address] 10/05/2024 12:30 PM EDT Telemedicine Care at Home [address] [place], [place] [phone] Kori Dumont PA-C [address] [place], [place] [phone] Scheduled Procedures Name Priority Associated Diagnoses Date/Ti me COLONOSCOPY FLEXIBLE PROXIMA L DIAGNOSTIC Recall Family history of colon cancer Health Maintenance Due Date Last Done Comments DISCUSS TOBACCO CESSATION (REFER TO SMARTSET #6517) 1960 HIV Screening 1973 Alpha-1 Antitrypsin 1976 [...] this encounter Medical Devices Implanted Type Area Halal Meat Packer Device Identifier Shelf Expiration Date Model / Serial / Lot Cover [place] Hole 24mm 421.528 - [id number] Implanted:Qty: 1 on 08/20/2021 by Joni Hand III, MD at OR [facility] Right: Head SYNTHES MAXILLOFACIAL 421.528 / / Plate Y Ti Lo Db 6h 21 421.517 - [id number] Implanted:Qty: 1 on 08/20/2021 by Joni Hand III, MD at OR [facility] Right: Head SYNTHES MAXILLOFACIAL 421.517 / / Screw Ti Lo Pro Sd 4mm 400.834 - [id number] Implanted:Qty: 10 on 08/20/2021 by Joni Hand III, MD at OR [facility] Right: Head SYNTHES MAXILLOFACIAL 400.834 / / [...] Directives occurred with: Not Discussed Care Teams Data Warehouse Consultant Relationship Specialty Start Date End Date Martin Solorio MD [address] [facility] [place] [address] PCP - General Family Medicine 02/20/21 documented as of this encounter
--- OUTSIDE RECORDS SUMMARY | 2024-02-27 02:27 | External Medical Summary ---
Author Name Unknown Address Unknown Organization K01:[facility] [place] [address] [place] [address] Laboratory Report Ordering Provider Test Date Status TYRONE DE PAZ 01/29/2024 09:47:14 Final Observation Date Value Abnormality Reference (Units ) Status TSH 01/29/2024 09:47:14 1.80 0.27-4.20 (uIU/mL) Final Performing Location LABORATORY C - [address] [place] [address]
--- OUTSIDE RECORDS SUMMARY | 2024-02-27 02:27 | External Medical Summary ---
Author Name Unknown Address Unknown Organization K01:[facility]ORATORY [facility] [place] - [address] [place] [address] Laboratory Report Ordering Provider Test Date Status TYRONE DE PAZ 01/29/2024 09:47:14 Final Observation Date Value Abnormality Reference (Units ) Status Carbamazepine 01/29/2024 09:47:14 12.8 Above high matthew l 4.0-12.0 (ug/mL) Final Performing Location LABORATORY [facility] - [address] [place] [address]
--- OUTSIDE RECORDS SUMMARY | 2024-02-27 02:28 | External Medical Summary | Summary of Care ---
Author Name Unknown Organization [facility] Address [address] [facility] [address] Phone [phone] Care Team Providers Care Advertising Operations Coordinator Name Role Phone Martin Solorio MD Primary Care Provider [phone] Reason for Visit * Reason Comments Medication Refill Encounter Details Date Type Department Care Team (Late st Contact Info) Description 10/24/2023 [facility] [address] [place] [address] Jessica Watkins MD [address] [facility] [address] Malignant melanoma of left lower extremity (HCC) Allergies Active Allergy Reactions Criticality Noted Date Comments Erythromycin 08/15/1997 seizures documented as of this encounter (statuses as of 10/27/2023) Medications Medication Sig Dispensed Refills Start Date End Date Status MULTIVITAMINS PO TABS Take 1 Tablet by mouth every morning. 0 8 Active Levothyroxine Sodium 200 MCG Oral Tablet TAKE 1 TABLET BY MOUTH IN THE MORNING AT LEAST 30 MIN PRIOR TO BREAKFAST OR OTHER MEDS 90 Tablet 0 3 Active traZODone HCl 100 MG Oral Tablet [...] THE EVENING 450 Tablet 5 4 Active Ondansetron HCl 8 MG Oral Tablet (Zofran)Indication s:Malignant melanoma of left lower extremity (HCC),Malignant 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) TAKE 1 TABLET BY MOUTH TWICE DAILY 30 MIN PRIOR TO ADMINISTRATION OF TAFINLAR 60 Tablet 0 4 Active Trametinib Dimethyl Sulfoxide 0.5 MG Oral Tablet (Mekinist)Indicati ons:Malignant melanoma of left lower extremity (HCC) Take 3 tablets (1.5mg) by mouth in the morning. 90 Tablet 5 4 Active Trametinib Dimethyl Sulfoxide 0.5 MG Oral Tablet (Mekinist)Indicati ons:Malignant melanoma of left lower extremity (HCC) Take 3 tablets (1.5mg) by mouth in the morning. 90 Tablet 5 3 10/24/19 24 Discontinu ed(Refill) documented as of this encounter (statuses as of 10/27/2023) Active Problems Problem Noted Date Diagnosed Date Cerebral atrophy 09/30/2023 Left sided lacunar infarction 09/30/2023 Spinal stenosis of cervical region 09/30/2023 Coronary artery disease invo lving [place] coronary artery of [place] heart without angina pectoris 09/30/2023 Pulmonary nodules [...] as of this encounter (statuses as of 10/27/2023) Resolved Problems Problem Noted Date Diagnosed Date [...] as of this encounter (statuses as of 10/27/2023) Immunizations Name Administration Dates Next Due COVID-19, [...] encounter Miscellaneous Notes * Telephone Encounter - Geri Farley RP - 10/27/2023 8:13 AM EDT Signed Prescriptions: Disp Refills Trametinib Dimethyl Sulfoxide 0.5 MG Oral *90 Tab*5 Sig: Take 3 tablets (1.5mg) by mouth in the morning.Authorizing Provider: JESSICA WATKINS User: GERI FARLEY * Telephone Encounter - Geri Farley RPh - 10/27/2023 8:08 AM EDT Refill Request EPIC Note Clinical Pharmacy Service (Hematology/Oncology): Refill Request(s) PHYSICIAN ACTION: No Assessment & Plan After reviewing the parameters in order to refill the patient's medication(s), the following was determined: The medication(s), trametinib, was refilled and no parameters need to be addressed No communication to requesting entity necessary Refill Parameters The following parameters were assessed in order to decide whether or not this refill was appropriate: Refill Parameter Comments If the patient was seen in the last 6 months (12 months for MPN patients) Yes - 09/05/23 If the labs were completed per prescribing information recommendations or provider recommendations Yes - 09/03/23 If the labs were within normal limits or stable at baseline yes If the dose was correct and/or if the prescription sig reflects the current prescribed dose yes If there were any new drug interactions with the patient's oral chemotherapy no If there were any care gaps/baseline labs that need to be addressed no Geri Farley [facility] Ambulatory Clinical Pharmacist | Oral Chemotherapy Clinic [facility] 10/27/2023, 8:13 AM documented in this encounter Plan of Treatment Upcoming Encounters Date Type Department Care Team (Late st Contact Info) Description 11/11/2023 9:45 AM EDT Pharmacy Pharmacy Hematology Oncology [facility] [place] [address] [place] [address] [facility], [facility] Hem/Onc [address] [place] [address] 12/09/2023 10:45 AM EDT Imaging Radiology [address] [place] [address] 12/11/2023 7:45 AM EDT Office Visit Hematology/Oncology [facility] 200 [place] [phone] Jessica Watkins MD 200 [place] [address] 12/24/2023 11:00 AM EDT Imaging Radiology [address] [place] [address] 01/29/2024 8:20 AM EDT Office Visit [address] [phone] Martin Solorio MD [address] [place] [address] 10/05/2024 12:30 PM EDT Telemedicine Care at Home [address] [place] [address] Kori Dumont PA-C [address] [place] [address] Scheduled Procedures Name Priority Associated Diagnoses Date/Ti me COLONOSCOPY FLEXIBLE PROXIMA L DIAGNOSTIC Recall Family history of colon cancer Health Maintenance Due Date Last Done Comments DISCUSS TOBACCO CESSATION (REFER TO SMARTSET #6435) 1960 HIV Screening 1973 Alpha-1 Antitrypsin 1976 Hepatitis C Screening 1976 Mammogram 02/06/2022 02/06/2021, 080 10/2019, 02/01/2020, Additional history exists DXA Scan 2023 Pneumococcal Vaccine: 65+ Years (3 of 3 - PPSV23 or PCV20) 05/03/2023 03/08/2023, 04/22/2022, 04/08/2019, Additional history exists TSH 08/08/2024 08/08/2023, 0 11/2023, 06/26/2022, Additional history exists GFR 09/03/2024 09/03/2023, 07/21, 05/27/2023, Additional history exists O2 ASSESSMENT COMPLETED IN PAST YEAR FOR COPD 09/08/2024 09/08/2023 Depression Screening 09/10/2024 09/10/2023 COLONOSCOPY-EVERY 5 YRS AGES 18-100 06/05/2026 06/05/2021, 06/05/2021, 08/10/2010, Additional history exists Albumin/Creatinine Ratio 07/25/2026 07/25/2023 Diabetes Screening 09/08/2026 09/08/2023, 0 09/03/2023, 08/08/2023, Additional history exists DTaP,Tdap,and Td Vaccines (2 - Td or Tdap) 02/20/2031 02/20/2021, 04/20/2007 Zoster Vaccines Completed 07/17/2022, 04/22/2022 Influenza Vaccine (FLU shot) Completed , 04/04/2021, 04/04/2021, Additional history exists COVID-19 Vaccine [...] this encounter Medical Devices Implanted Type Area Hand Scraper Device Identifier Shelf Expiration Date Model / Serial / Lot Cover [place] Hole 24mm 421.528 - [id number] Implanted:Qty: 1 on 08/20/2021 by Joni Hand III, [place] [facility] [place]: Head SYNTHES MAXILLOFACIAL 421.528 / / Plate Y Ti Lo Db 6h 21 421.517 - [id number] Implanted:Qty: 1 on 08/20/2021 by Joni Hand III, MD [place] [facility] Right: Head SYNTHES MAXILLOFACIAL 421.517 / / Screw Ti Lo Pro Sd 4mm 400.834 - [id number] Implanted:Qty: 10 on 08/20/2021 by Joni Hand III, MD [place] [facility] [place]: Head SYNTHES MAXILLOFACIAL 400.834 / / documented as of this encounter Visit Diagnoses Diagnosis Malignant melanoma of left lower extremity (HCC) documented in this encounter Advance Directives Latest Code Status [...] Directives occurred with: Not Discussed Care Teams Advertising Operations Coordinator Relationship Specialty Start Date End Date Martin Solorio MD [address] [facility] [place] [address] PCP - General Family Medicine 02/20/21 documented as of this encounter"
--- OUTSIDE RECORDS SUMMARY | 2024-02-27 02:28 | External Medical Summary | Summary of Care ---
Author Name Unknown Organization [facility] Address [address] [place] [facility] [place] [place] [address] Phone [phone] Care Team Providers Care Lead Nuclear Medicine Technologist Name Role Phone Baldev Solorio MD Primary Care Provider [phone] Reason for Visit * Reason Comments eRx-Medication Refill Encounter Details Date Type Department Care Team (Late st Contact Info) Description 11/13/2023 Refill [facility] [address] [place] [address] Baldev Solorio MD [address] [place] [address] Allergies Active Allergy Reactions Criticality Noted Date Comments Erythromycin 08/15/1997 seizures documented as of this encounter (statuses as of 11/14/2023) Medications Medication Sig Dispensed Refills Start Date [...] OTHER MEDS 90 Tablet 1 4 Active Levothyroxine Sodium 200 MCG Oral Tablet TAKE 1 TABLET BY MOUTH IN THE MORNING AT LEAST 30 MIN PRIOR TO BREAKFAST OR OTHER MEDS 90 Tablet 0 3 024 Discontinued documented as of this encounter (statuses as of 11/14/2023) Active Problems Problem Noted Date Diagnosed Date Cerebral atrophy 09/30/2023 Left sided lacunar infarction 09/30/2023 Spinal stenosis of cervical region 09/30/2023 Coronary artery disease invo lving [place] coronary artery of [place] heart without angina pectoris 09/30/2023 Pulmonary nodules [...] as of this encounter (statuses as of 11/14/2023) Resolved Problems Problem Noted Date Diagnosed Date [...] as of this encounter (statuses as of 11/14/2023) Immunizations Name Administration Dates Next Due COVID-19, [...] encounter Miscellaneous Notes * Telephone Encounter - Humphrey Arvizu [facility] - 11/14/2023 11:09 AM EDT Signed Prescriptions: Disp Refills Levothyroxine Sodium 200 MCG Oral Tablet 90 Tab*1 Sig: TAKE 1 TABLET BY MOUTH ONCE DAILY IN THE MORNING AT LEAST 30 MIN BEFORE BREAKFAST OR OTHER MEDSAuthorizing Provider: BALDEV SOLORIO User: HUMPHREY ARVIZU documented in this encounter Plan of Treatment Upcoming Encounters Date Type Department Care Team (Late st Contact Info) Description 01/12/2024 9:45 AM EDT Pharmacy Pharmacy Hematology Oncology [facility] [address] [place] [address] [facility] [place] Hem/Onc [address] [place] [address] 01/29/2024 8:20 AM EDT Office Visit [facility] [address] [place] [address] Baldev Solorio MD [address] [place] [address] 10/05/2024 12:30 PM EDT Telemedicine Care at Home [address] [place] [address] Kori Dumont PA-C [address] [place] [address] Scheduled Procedures Name Priority Associated Diagnoses Date/Ti me COLONOSCOPY FLEXIBLE PROXIMA L DIAGNOSTIC Recall Family history of colon cancer Health Maintenance Due Date Last Done Comments DISCUSS TOBACCO CESSATION (REFER TO SMARTSET #5445) 1960 HIV Screening 1973 Alpha-1 Antitrypsin 1976 Hepatitis C Screening 1976 Mammogram 02/06/2022 02/06/2021, 080 10/2019, 02/01/2020, Additional history exists DXA Scan 2023 Pneumococcal Vaccine: 65+ Years (3 of 3 - PPSV23 or PCV20) 05/03/2023 03/08/2023, 04/22/2022, 04/08/2019, Additional history exists TSH 08/08/2024 08/08/2023, 01/0 11/2023, 06/26/2022, Additional history exists GFR 09/03/2024 [...] this encounter Medical Devices Implanted Type Area Jigman Device Identifier Shelf Expiration Date Model / Serial / Lot Cover [place] Hole 24mm 421.528 - [id number] Implanted:Qty: 1 on 08/20/2021 by Joni Hand III, MD at [place] [facility] Right: Head SYNTHES MAXILLOFACIAL 421.528 / / Plate Y Ti Lo Db 6h 21 421.517 - [id number] Implanted:Qty: 1 on 08/20/2021 by Joni Hand III, MD at [place] [facility] Right: Head SYNTHES MAXILLOFACIAL 421.517 / / Screw Ti Lo Pro Sd 4mm 400.834 - [id number] Implanted:Qty: 10 on 08/20/2021 by Joni Hand III, MD at [place] [facility] Right: Head SYNTHES MAXILLOFACIAL 400.834 / / [...] Directives occurred with: Not Discussed Care Teams Lead Nuclear Medicine Technologist Relationship Specialty Start Date End Date Baldev Solorio MD [address] [facility] [place] [address] PCP - General Family Medicine 02/20/21 documented as of this encounter
--- OUTSIDE RECORDS SUMMARY | 2024-02-27 02:28 | External Medical Summary | Summary of Care ---
Author Name Unknown Organization [facility] Address [address] [facility] [address] Phone [phone] Care Team Providers Care Tool Shaper Set Up Operator Name Role Phone Martin Solorio MD Primary Care Provider [phone] Reason for Visit * Reason Comments eRx-Medication Refill Encounter Details Date Type Department Care Team (Late st Contact Info) Description 10/25/2023 Refill Hematology/Oncology Archana Moreira [place] 200 [facility] [place] [address] Benja Watkins MD [address] [facility] [address] Malignant melanoma of left lower extremity (HCC); Malignant 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) Allergies Active Allergy Reactions Criticality Noted Date Comments Erythromycin 08/15/1997 seizures documented as of this encounter (statuses as of 10/27/2023) Medications Medication Sig Dispensed Refills Start Date End Date Status MULTIVITAMINS PO TABS Take 1 Tablet by mouth every morning. 0 09/10/2007 Active Levothyroxine Sodium 200 MCG Oral Tablet TAKE 1 TABLET BY MOUTH IN THE MORNING AT LEAST 30 MIN PRIOR TO BREAKFAST OR OTHER MEDS 90 Tablet 0 12/24/2022 Active traZODone HCl 100 MG Oral Tablet [...] the morning. 90 Tablet 5 10/27/2023 Active documented as of this encounter (statuses as of 10/27/2023) Active Problems Problem Noted Date Diagnosed Date Cerebral atrophy 09/30/2023 Left sided lacunar infarction 09/30/2023 Spinal stenosis of cervical region 09/30/2023 Coronary artery disease invo lving [place] coronary artery of [place] heart without angina pectoris 09/30/2023 Pulmonary nodules [...] Telephone Encounter - Sharon Sprague RN - 10/27/2023 8:21 AM EDTRefused Prescriptions: Disp Refills Ondansetron HCl 8 MG Oral Tablet (Zofran) 60 Tab*0 Sig: TAKE 1 TABLET BY MOUTH TWICE DAILY 30 MIN PRIOR TO ADMINISTRATION OF TAFINLARRefused By: SHARON SPRAGUE for Refusal: Duplicate Request * Telephone Encounter - Sharon Sprague RN - 10/27/2023 8:20 AM EDT Rx sent yesterday. documented in this encounter Plan of Treatment Upcoming Encounters Date Type Department Care Team (Late st Contact Info) Description 11/11/2023 9:45 AM EDT Pharmacy Pharmacy Hematology Oncology [facility] [address] [place] [address] [facility] [place] [facility] Hem/Onc [address] [place] [address] 12/09/2023 10:45 AM EDT Imaging Radiology [address] [place] [address] 12/11/2023 7:45 AM EDT Office Visit Hematology/Oncology [facility] [address] [place] [phone] Benja Watkins MD [address] [place] [address] 12/24/2023 11:00 AM EDT [address] [address] 01/29/2024 8:20 AM EDT Office Visit [address] [address] Martin Solorio MD [address], [place] [phone] 10/05/2024 12:30 PM EDT Telemedicine Care at Home [address] [place] [address] Kori Dumont PA-C [address], [place] [phone] Scheduled Procedures Name Priority Associated Diagnoses Date/Ti me COLONOSCOPY FLEXIBLE PROXIMA L DIAGNOSTIC Recall Family history of colon cancer Health Maintenance Due Date Last Done Comments DISCUSS TOBACCO CESSATION (REFER TO SMARTSET #4319) 1960 HIV Screening 1973 Alpha-1 Antitrypsin 1976 Hepatitis C Screening 1976 Mammogram 02/06/2022 02/06/2021, 10/2019, 02/01/2020, Additional history [...] encounter Medical Devices Implanted Type Area Loan Approver Device Identifier Shelf Expiration Date Model / Serial / Lot Cover [place] Hole 24mm 421.528 - [id number] Implanted:Qty: 1 on 08/20/2021 by Joni Hand III, MD at [place] Right: Head SY[employer]THES MAXILLOFACIAL 421.528 / / Plate Y Ti Lo Db 6h 21 421.517 - [id number] Implanted:Qty: 1 on 08/20/2021 by Joni Hand III, MD at [facility] [place] Right: Head [employer]ES MAXILLOFACIAL 421.517 / / Screw Ti Lo Pro Sd 4mm 400.834 - [id number] Implanted:Qty: 10 on 08/20/2021 by Joni aHnd III, MD at [place] Right: Head SY[employer]ES MAXILLOFACIAL 400.834 / / documented as of this encounter Visit Diagnoses Diagnosis Malignant melanoma of left lower extremity (HCC) 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
--- OUTSIDE RECORDS SUMMARY | 2024-02-27 02:28 | External Medical Summary | Summary of Care ---
Author Name Unknown Organization [facility] Address [address] [facility] [address] Phone [phone] Care Team Providers Care Book Mender Name Role Phone Martin Solorio MD Primary Care Provider [phone] Reason for Visit * Reason Onset Date Comments Forms Request 11/14/2023 Aflac Encounter Details Date Type Department Care Team (Late st Contact Info) Description 11/14/2023 Telephone Hematology/Oncology Archana Moreira [place] 200 [facility] [address] Benja Watkins MD 200 [facility] [place] [address] Forms Request (Aflac) Allergies Active Allergy Reactions [...] region 09/30/2023 Coronary artery disease invo lving [place] coronary artery of [place] heart without angina pectoris 09/30/2023 Pulmonary nodules [...] Vasogenic brain edema 09/22/20212021 Intracranial hemorrhage 08/18/2021 03/08/2023 Psoriasis 08/26/2019 09/30/2023 Overview: Plaque and pustulosis [...] 11/14/2023 3:50 PM EDT Faxed form from [facility] received, completed, awaiting provider signature. documented in this encounter Plan of Treatment Upcoming Encounters Date Type Department Care Team (Late st Contact Info) Description 01/12/2024 9:45 AM EDT Pharmacy Pharmacy Hematology Oncology [facility] [address] [place] [address] [facility] [place] Hem[facility]Onc [address] [place] [address] 01/29/2024 8:20 AM EDT Office Visit [facility] [address] [place] [address] Martin Solorio MD [address] [place] [address] 10/05/2024 12:30 PM EDT Telemedicine Care at Home [address] [place] [address] Kori Dumont PA-C [address] [place] [address] Scheduled Procedures Name Priority Associated Diagnoses Date/Ti me COLONOSCOPY FLEXIBLE PROXIMA L DIAGNOSTIC Recall Family history of colon cancer Health Maintenance Due Date Last Done Comments DISCUSS TOBACCO CESSATION (REFER TO SMARTSET #4515) 1960 HIV Screening 1973 Alpha-1 Antitrypsin 1976 [...] this encounter Medical Devices Implanted Type Area Garden Implement Mechanic Device Identifier Shelf Expiration Date Model / Serial / Lot Cover [place] Hole 24mm 421.528 - [id number] Implanted:Qty: 1 on 08/20/2021 by Joni Hand III, MD at [place] [facility] Right: Head [employer]ES MAXILLOFACIAL 421.528 / / Plate Y Ti Lo Db 6h 21 421.517 - [id number] Implanted:Qty: 1 on 08/20/2021 by Joni Hand III, MD at OR [facility] Right: Head [employer]ES MAXILLOFACIAL 421.517 / / Screw Ti Lo Pro Sd 4mm 400.834 - [id number] Implanted:Qty: 10 on 08/20/2021 by Joni Hand III, MD at [facility] Right: Head SY[employer]ES MAXILLOFACIAL 400.834 / / [...] Directives occurred with: Not Discussed Care Teams Book Mender Relationship Specialty Start Date End Date Martin Solorio MD [address] [place] [address] PCP - General Family Medicine 02/20/21 documented as of this encounter
--- OUTSIDE RECORDS SUMMARY | 2024-02-27 02:28 | External Medical Summary | Summary of Care ---
Author Name Unknown Organization [facility] Address [address] [place] [address] Phone [phone] Care Team Providers Care Cushion Maker Hand Name Role Phone Martin Solorio MD Primary Care Provider [phone] Reason for Visit * Reason Comments Medication Management Encounter Details Date Type Department Care Team (Late st Contact Info) Description 11/11/2023 9:45 AM EDT Pharmacy Pharmacy Hematology Oncology [facility] [address] [place] [address] [facility] Hem/Onc [address] [place] [address] Malignant melanoma of left lower extremity (HCC)* Allergies Active Allergy Reactions Criticality Noted Date Comments Erythromycin 08/15/1997 seizures documented as of this encounter (statuses as of 11/11/2023) Medications Medication Sig Dispensed Refills Start Date [...] as of this encounter (statuses as of 11/11/2023) Active Problems Problem Noted Date Diagnosed Date Cerebral atrophy 09/30/2023 Left sided lacunar infarction 09/30/2023 Spinal stenosis of cervical region 09/30/2023 Coronary artery disease invo lving [place] coronary artery of [place] heart without angina pectoris 09/30/2023 Pulmonary nodules [...] as of this encounter (statuses as of 11/11/2023) Resolved Problems Problem Noted Date Diagnosed Date [...] as of this encounter (statuses as of 11/11/2023) Immunizations Name Administration Dates Next Due COVID-19, [...] this encounter Progress Notes * Geri Acevedo, [facility] - 11/11/2023 1:48 PM EDT MEDICATION THERAPY MANAGEMENT DABRAFENIB & TRAMETINIB TREATMENT PROGRESS NOTE Judy Garcia [phone] Patient Phone Numbers : Kwame Communication: Spoke to: Patient Treatment: Medication: Dabrafenib // Trametinib Indication: metastatic melanoma Dose: 75 mg BID // 1.5 mg daily ( 02/2022) Administration: empty stomach (1 hour before or 2 hours after a meal) Start Date: 10/04/21 Primary Public Speaking Teacher/Oncologist: Dr. Noman Watkins Supportive Care Meds: Ondansetron [...] trametinib since 10/12/23 and medication shipped 10/14/23 Denies additional medication hold since September 2023 No concerns, tolerating therapy well Changes to medication list since last visit? No Assessment and Plan: Continue current therapy Assessment of compliance: non compliant Assessment of adverse effects attributed to drug therapy: Rash - absent Visual disturbance - absent GI hemorrhage - absent Pyrexia - absent VTE - absent S/sx of cardiac dysfunction - absent Dose adjustment needed based on lab or adverse drug reaction? No Follow up: 1 month OV/labs; 2 months MTM Geri Acevedo, PharmD, BCOP Clinical Pharmacist, [facility] [place] Oral Chemotherapy [facility] 11/11/2023, 1:54 PM Time Spent on Encounter: 6 - 10 minutes Encounter Group: Oncology Encounter Interventions Item Category: Oral Chemotherapy Dabrafenib/Trametinib Problem/Rationale: Safety: Needs additional monitoring - Medication Requires monitoring Pharmacist Intervention(s): Toxicity monitoring Magnitude of Intervention: Monitoring with direction (Level 1) documented in this encounter Plan of Treatment Upcoming Encounters Date Type Department Care Team (Late st Contact Info) Description 12/09/2023 10:45 AM EDT Imaging Radiology [address] [facility] [place] [address] 12/11/2023 7:45 AM EDT Office Visit Hematology/Oncology [facility] 200 [place] [phone] Benja Watkins MD [address] [facility] [address] 12/24/2023 11:00 AM EDT Imaging Radiology [address] 132 [facility] [place] [address] 01/12/2024 9:45 AM EDT Pharmacy Pharmacy Hematology Oncology [facility] [address] [place] [address] [facility] Hem/Onc [address] [place] [address] 01/29/2024 8:20 AM EDT Office Visit [facility] [address] [place] [address] Martin Solorio MD [address] [place], [place] [phone] 10/05/2024 12:30 PM EDT Telemedicine Care at Home [address] [place] [address] Kori Dumont PA-C [address] [place] [address] Scheduled Procedures Name Priority Associated Diagnoses Date/Ti me COLONOSCOPY FLEXIBLE PROXIMA L DIAGNOSTIC Recall Family history of colon cancer Health Maintenance Due Date Last Done Comments DISCUSS TOBACCO CESSATION (REFER TO SMARTSET #2827) 1958 HIV Screening 1973 Alpha-1 Antitrypsin 1976 [...] this encounter Medical Devices Implanted Type Area Railway Shunter Device Identifier Shelf Expiration Date Model / Serial / Lot Cover [place] Hole 24mm 421.528 - [id number] Implanted:Qty: 1 on 08/20/2021 by Joni Hand III, MD at [place] [facility] Right: Head SY[employer]ES MAXILLOFACIAL 421.528 / / Plate Y Ti Lo Db 6h 21 421.517 - [id number] Implanted:Qty: 1 on 08/20/2021 by Joni Hand III, MD at [place] [facility] Right: Head SY[employer]ES MAXILLOFACIAL 421.517 / / Screw Ti Lo Pro Sd 4mm 400.834 - [id number] Implanted:Qty: 10 on 08/20/2021 by Joni Hand III, MD at [place] [facility] Right: Head SYNTHES MAXILLOFACIAL 400.834 / / documented as of this encounter Visit Diagnoses Diagnosis Malignant melanoma of left lower extremity (HCC)- Primary documented in this encounter Advance Directives Latest [...] Directives occurred with: Not Discussed Care Teams Cushion Maker Hand Relationship Specialty Start Date End Date Martin Solorio MD [address] [place] [address] PCP - General Family Medicine 02/20/21 documented as of this encounter
--- OUTSIDE RECORDS SUMMARY | 2024-02-27 02:28 | External Medical Summary | Summary of Care ---
Author Name Unknown Organization [facility] Address [address] [facility] [address] Phone [phone] Care Team Providers Care Manager Ship Name Role Phone Martin Solorio MD Primary Care Provider [phone] Reason for Visit * Reason Onset Date Comments Medication Refill 10/22/2023 Encounter Details Date Type Department Care Team (Late st Contact Info) Description 10/22/2023 Refill Hematology/Oncology Archana Moreira [place] 200 [facility] [place] [address] Benja Watkins MD 200 [facility] [place] [address] Malignant melanoma of left lower extremity (HCC); Malignant 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) Allergies Active Allergy Reactions Criticality Noted Date Comments Erythromycin 08/15/1997 seizures documented as of this encounter (statuses as of 10/26/2023) Medications Medication Sig Dispensed Refills Start Date End Date Status MULTIVITAMINS PO TABS Take 1 Tablet by mouth every morning. 0 09/10/19 08 Active Levothyroxine Sodium 200 MCG Oral Tablet TAKE 1 TABLET BY MOUTH IN THE MORNING AT LEAST 30 MIN PRIOR TO BREAKFAST OR OTHER MEDS 90 Tablet 0 12/25/19 23 Active Trametinib Dimethyl Sulfoxide 0.5 MG Oral Tablet (Mekinist)Indicat ions:Malignant melanoma of left lower extremity (HCC) Take 3 tablets (1.5mg) by mouth in the morning. 90 Tablet 5 04/24/20 23 Active traZODone HCl 100 MG Oral Tablet (Desyrel)Indicati ons:Insomnia, unspecified type TAKE 1 & 1/2 (ONE & ONE-HALF) TABLETS BY MOUTH AT BEDTIME 45 Tablet 5 05/06/20 23 Active Losartan Potassium 50 MG Oral Tablet (Cozaar)Indicatio ns:HTN, goal below 130/80 Take 1 Tablet by mouth in the morning. 90 Tablet 3 07/31/19 24 Active Atorvastatin Calcium 20 MG Oral Tablet (Lipitor)Indicati ons:Dyslipidemia Take 1 Tablet by mouth every evening. 90 Tablet 3 07/31/19 24 Active Dabrafenib Mesylate 75 MG Oral Capsule (Tafinlar) Take 1 Capsule by mouth in the morning and 1 Capsule before bedtime. 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) TAKE 2 TABLETS BY MOUTH IN THE MORNING AND 2 IN THE EVENING 360 Tablet 3 07/31/19 24 024 Discontinued Ondansetron HCl 8 MG Oral Tablet (Zofran)Indicatio ns:Malignant melanoma of left lower extremity (HCC),Malignant 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) TAKE 1 TABLET BY MOUTH TWICE DAILY 30 MIN PRIOR TO ADMINISTRATION OF TAFINLAR 60 Tablet 0 09/19/19 24 024 Discontinued(Re fill) documented as of this encounter (statuses as of 10/26/2023) Active Problems Problem Noted Date Diagnosed Date Cerebral atrophy 09/30/2023 Left sided lacunar infarction 09/30/2023 Spinal stenosis of cervical region 09/30/2023 Coronary artery disease invo lving [place] coronary artery of [place] heart without angina pectoris 09/30/2023 Pulmonary nodules [...] as of this encounter (statuses as of 10/26/2023) Resolved Problems Problem Noted Date Diagnosed Date [...] as of this encounter (statuses as of 10/26/2023) Immunizations Name Administration Dates Next Due COVID-19, [...] Telephone Encounter - Malou Mejía LPN - 10/23/2023 10:21 AM EDTPending Prescriptions: Disp Refills Ondansetron HCl 8 MG Oral Tablet (Zofran) 60 Tab*0 * Telephone Encounter - Malou Mejía LPN - 10/23/2023 10:16 AM EDT Pended below: Refill request for Ondansetron Hcl 8 mg tablets. Last refill: 09/19/2023 Per Pharmacy Note 10/14/2023: Supportive Care Meds: Ondansetron 8 mg BID 30 min prior to dabrafenib Last seen: 09/05/2023 Next appt: 12/11/2023 documented in this encounter Plan of Treatment Upcoming Encounters Date Type Department Care Team (Late st Contact Info) Description 11/11/2023 9:45 AM EDT Pharmacy Pharmacy Hematology Oncology [facility] [address] [place] [address] [facility] Hem[facility]Onc [address] [place] [address] 12/09/2023 10:45 AM EDT Imaging Radiology [address] 132 [facility] [place] [address] 12/11/2023 7:45 AM EDT Office Visit Hematology/Oncology Archana Moreira [place] [address] [facility] [address] Benja Watkins MD 200 [facility] [place] [address] 12/24/2023 11:00 AM EDT Imaging Radiology [facility] [address] [facility], [place] [address] [place] [address] 01/29/2024 8:20 AM EDT Office Visit [facility] [address] [place] [phone] Martin Solorio MD [address] [place] [address] 10/05/2024 12:30 PM EDT Telemedicine Care at Home [address] [place], [place] [phone] Kori Dumont PA-C [address] [place], [place] [phone] Scheduled Procedures Name Priority Associated Diagnoses Date/Ti me COLONOSCOPY FLEXIBLE PROXIMA L DIAGNOSTIC Recall Family history of colon cancer Health Maintenance Due Date Last Done Comments DISCUSS TOBACCO CESSATION (REFER TO SMARTSET #2018) 1960 HIV Screening 1973 Alpha-1 Antitrypsin 1976 [...] this encounter Medical Devices Implanted Type Area Postdoctoral Fellow Device Identifier Shelf Expiration Date Model / Serial / Lot Cover [place] Hole 24mm 421.528 - [id number] Implanted:Qty: 1 on 08/20/2021 by Joni Hand III, MD at [place] [facility] Right: Head SYNTHES MAXILLOFACIAL 421.528 / / Plate Y Ti Lo Db 6h 21 421.517 - [id number] Implanted:Qty: 1 on 08/20/2021 by Joni Hand III, MD at OR [facility] Right: Head SYNTHES MAXILLOFACIAL 421.517 / / Screw Ti Lo Pro Sd 4mm 400.834 - [id number] Implanted:Qty: 10 on 08/20/2021 by Joni Hand III, MD at OR [facility] Right: Head SYNTHES MAXILLOFACIAL 400.834 [...] Directives occurred with: Not Discussed Care Teams Manager Ship Relationship Specialty Start Date End Date Martin Solorio MD [address] [place] [address] PCP - General Family Medicine 02/20/21 documented as of this encounter
--- OUTSIDE RECORDS SUMMARY | 2024-02-27 02:29 | External Medical Summary | Summary of Care ---
Author Name Unknown Organization [facility] Address [address] [place] [address] Phone [phone] Care Team Providers Care Piano Maker Name Role Phone Martin Solorio MD Primary Care Provider [phone] Reason for Visit * Reason Comments Medication Management Encounter Details Date Type Department Care Team (Late st Contact Info) Description 10/03/2023 9:45 AM EDT Pharmacy Pharmacy Hematology Oncology [facility] [address], [place] [phone] [facility] [place], [facility] Hem/Onc [address], [place] [phone] Malignant melanoma of left lower extremity (HCC)* Allergies Active Allergy Reactions Criticality Noted Date Comments Erythromycin 08/15/1997 seizures documented as of this encounter (statuses as of 10/05/2023) Medications Medication Sig Dispensed Refills Start Date End Date Status MULTIVITAMINS PO TABS Take 1 Tablet by mouth every morning. 0 09/10/2007 Active PARoxetine HCl 40 MG Oral Tablet (pAXil)Indications :Adjustment disorder with depressed mood Take 1 Tablet by mouth every morning. In the morning. 90 Tablet 2 12/17/2022 Active Levothyroxine Sodium 200 MCG Oral Tablet TAKE 1 TABLET BY MOUTH IN THE MORNING AT LEAST 30 MIN PRIOR TO BREAKFAST OR OTHER MEDS 90 Tablet 0 12/24/2022 Active Trametinib Dimethyl Sulfoxide 0.5 MG Oral Tablet (Mekinist)Indicati ons:Malignant melanoma of left lower extremity (HCC) Take 3 tablets (1.5mg) by mouth in the morning. 90 Tablet 5 2023 Active traZODone HCl 100 MG Oral Tablet [...] every evening. 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 120 Capsule 5 08/28/2023 Active Ondansetron HCl 8 MG Oral Tablet (Zofran)Indication s:Malignant melanoma of left lower extremity (HCC),Malignant 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) TAKE 1 TABLET BY MOUTH TWICE DAILY 30 MIN PRIOR TO ADMINISTRATION OF TAFINLAR 60 Tablet 0 09/19/2023 Active documented as of this encounter (statuses as of 10/05/2023) Active Problems Problem Noted Date Diagnosed Date Cerebral atrophy 09/30/2023 Left sided lacunar infarction 09/30/2023 Spinal stenosis of cervical region 09/30/2023 Coronary artery disease invo lving [place] coronary artery of [place] heart without angina pectoris 09/30/2023 Pulmonary [...] as of this encounter (statuses as of 10/05/2023) Resolved Problems Problem Noted Date Diagnosed Date [...] as of this encounter (statuses as of 10/05/2023) Immunizations Name Administration Dates Next Due COVID-19, [...] this encounter Progress Notes * Geri Acevedo, [facility] - 10/05/2023 7:06 PM EDT MEDICATION THERAPY MANAGEMENT DABRAFENIB & TRAMETINIB TREATMENT PROGRESS NOTE Judy Garcia [id number] Patient Phone Numbers : Kwame Communication: Left message requesting return call to assess toleration to therapy Treatment: Medication: Dabrafenib // Trametinib Indication: metastatic melanoma Dose: 75 mg BID // 1.5 mg daily ( 02/2022) Administration: empty stomach (1 hour before or 2 hours after a meal) Start Date: 10/04/21 Primary Bacon De Rinder/Oncologist: Dr. Noman Watkins Supportive Care Meds: Ondansetron [...] Held 1-week in May 2023- due to fatigue Interval History: Per OV 02/27/23, pt will consider chemo holiday but will continue current plan for now. Pt to have repeat PET-CT scan early April 2023 Per TE 04/24/23, pt insurance changed and [facility] to fill dabrafenib and trametinib Per MyG 09/28/23, pt adivsed to hold treatment x 1-2 weeks due to fatigue Changes to medication list since last visit? No Assessment and Plan: MTM to follow up 10/13 to assess fatigue improvement and treatment restart Assessment of compliance: non compliant Assessment of adverse effects attributed to drug therapy: N/A Dose adjustment needed based on lab or adverse drug reaction? Yes, HOLD Follow up: 10/13 Geri Acevedo, PharmD, BCOP Clinical Pharmacist, [facility] Oral Chemotherapy [facility] 10/05/2023, 7:10 PM Time Spent on Encounter: < 5 minutes documented in this encounter Plan of Treatment Upcoming Encounters Date Type Department Care Team (Late st Contact Info) Description 10/14/2023 9:45 AM EDT Pharmacy Pharmacy Hematology Oncology [facility] [address] [place] [address] [facility] [place], [facility] Hem/Onc [address] [place] [address] 12/09/2023 10:45 AM EDT Imaging Radiology [address] [address] 12/11/2023 7:45 AM EDT Office Visit Hematology/Oncology [facility] [address] [place] [address] Benja Watkins MD [address] [place] [address] 12/24/2023 11:00 AM EDT Imaging Radiology [address] [address] 01/29/2024 8:20 AM EDT Office Visit [facility] [address] [place] [address] Martin Solorio MD [address] [place] [address] 10/05/2024 12:30 PM EDT Telemedicine Care at Home [address], [place] [phone] Kori Dumont PA-C [address], [place] [phone] Scheduled Procedures Name Priority Associated Diagnoses Date/Ti me COLONOSCOPY FLEXIBLE PROXIMA L DIAGNOSTIC Recall Family history of colon cancer Health Maintenance Due Date Last Done Comments DISCUSS TOBACCO CESSATION (REFER TO SMARTVIDHYA #[id number]) 1960 HIV Screening 1973 Alpha-1 Antitrypsin 1976 [...] this encounter Medical Devices Implanted Type Area Soaking Tank Worker Device Identifier Shelf Expiration Date Model / Serial / Lot Cover Nilda Hole 24mm 421.528 - [id number] Implanted:Qty: 1 on 08/20/2021 by Joni Hand III, MD at [place] [facility] Right: Head SYNTHES MAXILLOFACIAL 421.528 / / Plate Y Ti Lo Db 6h 21 421.517 - [id number] Implanted:Qty: 1 on 08/20/2021 by Joni Hand III, MD at OR [facility] Right: Head SYNTHES MAXILLOFACIAL 421.517 / / Screw Ti Lo Pro Sd 4mm 400.834 - [id number] Implanted:Qty: 10 on 08/20/2021 by Joni Hand [...] Directives occurred with: Not Discussed Care Teams Piano Maker Relationship Specialty Start Date End Date Martin Solorio MD [address] [place] [address] PCP - General Family Medicine 02/20/21 documented as of this encounter
--- OUTSIDE RECORDS SUMMARY | 2024-02-27 02:29 | External Medical Summary | Summary of Care ---
Author Name Unknown Organization [facility] Address [address] [place] [address] Phone [phone] Care Team Providers Care Coat Joiner Name Role Phone Martin Solorio MD Primary Care Provider [phone] Reason for Visit * Reason Comments Medication Management Encounter Details Date Type Department Care Team (Late st Contact Info) Description 10/14/2023 9:45 AM EDT Pharmacy Pharmacy Hematology Oncology [facility] [address], [place] [phone] [facility] [place], [facility] Hem/Onc [address] [place], [place] [phone] Malignant melanoma of left lower extremity (HCC)* Allergies Active Allergy Reactions Criticality Noted Date Comments Erythromycin 08/15/1997 seizures documented as of this encounter (statuses as of 10/15/2023) Medications Medication Sig Dispensed Refills Start Date [...] OF TAFINLAR 60 Tablet 0 09/19/2023 Active PARoxetine HCl 40 MG Oral Tablet (pAXil)Indications :Adjustment disorder with depressed mood TAKE 1 TABLET BY MOUTH IN THE MORNING 90 Tablet 1 10/09/2023 Active documented as of this encounter (statuses as of 10/15/2023) Active Problems Problem Noted Date Diagnosed Date Cerebral atrophy 09/30/2023 Left sided lacunar infarction 09/30/2023 Spinal stenosis of cervical region 09/30/2023 Coronary artery disease invo lving [place] coronary artery of [place] heart without angina pectoris 09/30/2023 Pulmonary nodules [...] as of this encounter (statuses as of 10/15/2023) Resolved Problems Problem Noted Date Diagnosed Date [...] as of this encounter (statuses as of 10/15/2023) Immunizations Name Administration Dates Next Due COVID-19, [...] this encounter Progress Notes * Geri Acevedo, [facility] - 10/15/2023 9:39 AM EDT MEDICATION THERAPY MANAGEMENT DABRAFENIB & TRAMETINIB TREATMENT PROGRESS NOTE Judy Garcia [id number] Patient Phone Numbers : Kwame Communication: Left message requesting return call to assess toleration to therapy Treatment: Medication: Dabrafenib // Trametinib Indication: metastatic melanoma Dose: 75 mg BID // 1.5 mg daily ( 02/2022) Administration: empty stomach (1 hour before or 2 hours after a meal) Start Date: 10/04/21 Primary Electronic Scale Tester/Oncologist: Dr. Noman Watkins Supportive Care Meds: Ondansetron [...] trametinib since 10/12/23 and medication shipped 10/14/23 Changes to medication list since last visit? No Assessment and Plan: LM requesting call back to assess medication tolerability since treatment restart Assessment of compliance: non compliant Assessment of adverse effects attributed to drug therapy: N/A Dose adjustment needed based on lab or adverse drug reaction? No Follow up: 1 month Geri Acevedo, DeandraD, BCOP Clinical Pharmacist, [facility] Oral Chemotherapy [facility] 10/15/2023, 4:19 PM Time Spent on Encounter: 6 - 10 minutes documented in this encounter Plan of Treatment Upcoming Encounters Date Type Department Care Team (Late st Contact Info) Description 11/11/2023 9:45 AM EDT Pharmacy Pharmacy Hematology Oncology [facility] [address] [place] [address] [facility], [facility] Hem/Onc [address] [place] [address] 12/09/2023 10:45 AM EDT Imaging Radiology [address] [facility] [place] [address] 12/11/2023 7:45 AM EDT Office Visit Hematology/Oncology [facility] [address] [facility] [place] [address] Benja Watkins MD [address] [facility] [place] [address] 12/24/2023 11:00 AM EDT Imaging Radiology [address] 132 [facility] [place] [address] 01/29/2024 8:20 AM EDT Office Visit [facility] [address] [place] [facility] [place] [place] [phone] Martin Solorio MD [address] [place] [address] 10/05/2024 12:30 PM EDT Telemedicine Care at Home [address] [facility] [place] [address] Kori Dumont PA-C [address] [facility] [place] [place] [phone] Scheduled Procedures Name Priority Associated Diagnoses Date/Ti me COLONOSCOPY FLEXIBLE PROXIMA L DIAGNOSTIC Recall Family history of colon cancer Health Maintenance Due Date Last Done Comments DISCUSS TOBACCO CESSATION (REFER TO SMARTSET #[id number]) 1960 HIV Screening 1973 Alpha-1 Antitrypsin 1976 [...] encounter Medical Devices Implanted Type Area Assistant Speech Language Pathologist Device Identifier Shelf Expiration Date Model / Serial / Lot Cover [place] Hole 24mm 421.528 - [id number] Implanted:Qty: 1 on 08/20/2021 by Joni Hand III, [place] [facility] [place]: Head SYNTHES MAXILLOFACIAL 421.528 / / Plate Y Ti Lo Db 6h 21 421.517 - [id number] Implanted:Qty: 1 on 08/20/2021 by Joni Hand III, [place] [facility] [place]: Head SYNTHES MAXILLOFACIAL 421.517 / / Screw Ti Lo Pro Sd 4mm 400.834 - [id number] Implanted:Qty: 10 on 08/20/2021 by Joni Hand III, [place] [facility] Right: Head SYNTHES MAXILLOFACIAL 400.834 / / [...] Directives occurred with: Not Discussed Care Teams Coat Joiner Relationship Specialty Start Date End Date Martin Solorio MD [address] [place] [address] PCP - General Family Medicine 02/20/21 documented as of this encounter
--- OUTSIDE RECORDS SUMMARY | 2024-02-27 02:29 | External Medical Summary | Summary of Care ---
Author Name Unknown Organization [facility] Address [address] [place] [address] Phone [phone] Care Team Providers Care On Line Csr Name Role Phone Martni Solorio MD Primary Care Provider [phone] Encounter Details Date Type Department Care Team (Late st Contact Info) Description 09/23/2023 11:00 AM EST Scheduled Telephone Care Coordination and Integration [address] [place] [address] Kori Quezada, KEISHA [address], [place] [phone] Allergies Active Allergy Reactions Criticality Noted Date Comments Erythromycin 08/15/1997 seizures documented as of this encounter (statuses as of 09/23/2023) Medications Medication Sig Dispensed Refills Start Date [...] as of this encounter (statuses as of 09/23/2023) Active Problems Problem Noted Date Diagnosed Date Brain lesion 09/08/2023 Brain metastasis 08/21/2021 Intracranial hemorrhage 08/18/2021 Hx of melanoma of skin 08/26/2019 Overview: [...] chest CT w/o contrast in 3-6 months. 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 07/31/2023 Acute [...] as of this encounter (statuses as of 09/23/2023) Immunizations Name Administration Dates Next Due COVID-19, [...] as of this encounter Progress Notes * Kori Quezada OSA - 09/23/2023 1:44 PM EST Telemedicine visit: No Community [facility] Clinical Immunologist (SOREN) documentation: Outbound call to patient [facility] Left message for patient to call Rc Lopez At [phone] Kori Quezada [facility] Community Health Clinical Immunologist Call or Text- [phone] documented in this encounter Plan of Treatment Upcoming Encounters Date Type Department Care Team (Late st Contact Info) Description 10/03/2023 9:45 AM EDT Pharmacy Pharmacy Hematology Oncology [address] [address] [facility], [facility] Hem/Onc [facility] [place] [address] 12/09/2023 10:45 AM EDT Imaging Radiology [facility] 1st [facility] [address] [place] [address] 12/11/2023 7:45 AM EDT Office Visit Hematology/Oncology [facility] [address] [facility] [place] [phone] Benja Watkins MD [address] [facility] [place] [address] 01/29/2024 8:20 AM EDT Office Visit [facility] [address] [place] [address] Martin Solorio MD [address] [place] [address] Scheduled Procedures Name Priority Associated Diagnoses Date/Ti me COLONOSCOPY FLEXIBLE PROXIMA L DIAGNOSTIC Recall Family history of colon cancer Health Maintenance Due Date Last Done Comments HIV Screening 1975 Hepatitis C Screening 1976 Mammogram 02/06/2022 02/06/2021, 10/2019, 02/01/2020, Additional history exists DXA Scan 2023 Pneumococcal Vaccine: 65+ Years (3 of 3 - PPSV23 or PCV20) 05/03/2023 03/08/2023, 04/22/2022, 04/08/2019, Additional history exists TSH 08/08/2024 08/08/2023, 11/2023, 06/26/2022, Additional history exists GFR 09/03/2024 09/03/2023, 07/21, 05/27/2023, Additional history exists Depression Screening 09/10/2024 09/10/2023 COLONOSCOPY-EVERY 5 YRS AGES 18-100 06/05/2026 06/05/2021, 06/05/2021, 08/10/2010, Additional history exists Albumin/Creatinine Ratio 07/25/2026 07/25/2023 Diabetes Screening 09/08/2026 09/08/2023, 0 09/03/2023, 08/08/2023, Additional history exists Lipid Panel 08/08/2028 08/08/2023, 11/2023, 04/10/2021, Additional history exists DTaP,Tdap,and Td Vaccines (2 [...] this encounter Medical Devices Implanted Type Area Tobacco Primer Machine Operator Device Identifier Shelf Expiration Date Model / Serial / Lot Cover Nilda Hole 24mm 421.528 - [id number] Implanted:Qty: 1 on 08/20/2021 by Joni Hand III, [place] [facility] [place]: Head SYNTHES MAXILLOFACIAL 421.528 / / Plate Y Ti Lo Db 6h 21 421.517 - [id number] Implanted:Qty: 1 on 08/20/2021 by Joni Hand III, [place] [facility] [place]: Head SYNTHES MAXILLOFACIAL 421.517 / / Screw Ti Lo Pro Sd 4mm 400.834 - [id number] Implanted:Qty: 10 on 08/20/2021 by Joni Hand III, [place] [facility] [place]: Head SYNTHES MAXILLOFACIAL 400.834 / / [...] Directives occurred with: Not Discussed Care Teams On Line Csr Relationship Specialty Start Date End Date Martin Solorio MD [address] [place] [facility] [place] [address] PCP - General Family Medicine 02/20/21 documented as of this encounter
--- OUTSIDE RECORDS SUMMARY | 2024-02-27 02:29 | External Medical Summary | Summary of Care ---
Author Name Unknown Organization [facility] Address [address] [place] [address] Phone [phone] Care Team Providers Care Microsoft Crm Developer Name Role Phone Martin Solorio MD Primary Care Provider [phone] Reason for Visit * Reason Onset Date Comments Appointment 09/29/2023 Encounter Details Date Type Department Care Team (Late st Contact Info) Description 09/29/2023 Telephone Care at Home [address], [place] [phone] Services, Scheduling [address] [place] [address] Appointment Allergies Active Allergy Reactions Criticality Noted Date Comments Erythromycin 08/15/1997 seizures documented as of this encounter (statuses as of 09/29/2023) Medications Medication Sig Dispensed Refills Start Date [...] as of this encounter (statuses as of 09/29/2023) Active Problems Problem Noted Date Diagnosed Date [...] as of this encounter (statuses as of 09/29/2023) Resolved Problems Problem Noted Date Diagnosed Date [...] as of this encounter (statuses as of 09/29/2023) Immunizations Name Administration Dates Next Due COVID-19, [...] Miscellaneous Notes * Telephone Encounter - Sharon Dumont OSA - 09/29/2023 10:19 AM EDT Care At Home Outreach Call attempt: 1st Call Call result: Call Unsuccessful - Left a voice mail Looking to schedule patient and spouse for AWV with Care at Home Kori Dumont PA-C Can offer: HV 09/30/23 or 10/06/23 Video 09/30/23 or 10/01/23 Provided a call back number of [phone]. KEISHA Norris documented in this encounter Plan of Treatment Upcoming Encounters Date Type Department Care Team (Late st Contact Info) Description 10/03/2023 9:45 AM EDT Pharmacy Pharmacy Hematology Oncology [address] [address] [facility] Hem[facility]Onc [address] [place] [address] 12/09/2023 10:45 AM EDT Imaging Radiology [facility] 1st [facility] 132 [facility] [place] [address] 12/11/2023 7:45 AM EDT Office Visit Hematology/Oncology [facility] 200 [facility] [place] [phone] Benja Watkins MD [address] [facility] [place] [address] 12/24/2023 11:00 AM EDT Imaging Radiology [address] 132 [facility] [place] [address] 01/29/2024 8:20 AM EDT Office Visit [facility] [address] [place] [phone] Martin Solorio MD [address] [place] [address] Scheduled Procedures Name Priority Associated Diagnoses Date/Ti [...] this encounter Medical Devices Implanted Type Area Waste Management Specialist Device Identifier Shelf Expiration Date Model / Serial / Lot Cover Nilda Hole 24mm 421.528 - [id number] Implanted:Qty: 1 on 08/20/2021 by Joni Hand III, [place] [facility] [place]: Head SYNTHES MAXILLOFACIAL 421.528 / / Plate Y Ti Lo Db 6h 21 421.517 - [id number] Implanted:Qty: 1 on 08/20/2021 by Joni Hand III, MD [place] [facility] Right: Head SYNTHES MAXILLOFACIAL 421.517 / / Screw Ti Lo Pro Sd 4mm 400.834 - [id number] Implanted:Qty: 10 on 08/20/2021 by Joni Hand III, MD [place] [facility] Right: Head SYNTHES MAXILLOFACIAL 400.834 / / [...] Directives occurred with: Not Discussed Care Teams Microsoft Crm Developer Relationship Specialty Start Date End Date Martin Solorio MD [address] [facility] [place] [address] PCP - General Family Medicine 02/20/21 documented as of this encounter
--- OUTSIDE RECORDS SUMMARY | 2024-02-27 02:29 | External Medical Summary | Summary of Care ---
Author Name Unknown Organization [facility] Address [address] [place] [address] Phone [phone] Care Team Providers Care Funeral Limousine Driver Name Role Phone Martin Solorio MD Primary Care Provider [phone] Reason for Referral * (Within 10 days (routine)) - Authorized Specialty Diagnoses / Procedures Referred By Bere rivera Referred To Contact Radiology Diagnoses 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) Procedures MRI NEURO 3-D RECONSTRUCTION José Luis Paul IV, PA-C [address] [place] [address] Referral ID Status Reason Start Date Expiration Date V isits Requested Visits Authorized [id number] Authorized 12/23/2023 999 999 * Precert (Within 10 days (routine)) - Pending Review Specialty Diagnoses / Procedures Referred By Bere rivera Referred To Contact Radiology Diagnoses 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) Procedures MRI BRAIN W WO CONTRAST José Luis Paul IV, PA-C [address] [place] [address] Referral ID Status Reason Start Date Expiration Date V isits Requested Visits Authorized [id number] Pending Review 12/23/2023 999 999 Encounter Details Date Type Department Care Team (Late st Contact Info) Description 09/22/2023 1:00 PM EST Office Visit Neurosurgery, [place] [address] [place] [address] Joni Hand III, MD [address] [place] [address] Metastasis to brain (HCC)*; Secondary malignant neoplasm of brain (HCC) Allergies Active Allergy Reactions Criticality Noted Date Comments Erythromycin 08/15/1997 seizures documented as of this encounter (statuses as of 09/22/2023) Medications Medication Sig Dispensed Refills Start Date [...] as of this encounter (statuses as of 09/22/2023) Active Problems Problem Noted Date Diagnosed Date [...] as of this encounter (statuses as of 09/22/2023) Resolved Problems Problem Noted Date Diagnosed Date [...] as of this encounter (statuses as of 09/22/2023) Immunizations Name Administration Dates Next Due COVID-19, [...] as of this encounter Progress Notes * José Luis Paul IV, PA-C - 09/22/2023 1:09 PM EST Neurosurgery Post Op Visit 09/22/2023 Cranial stereotactic supporting bolt for laser interstitial therapy placement. Frameless stereotactic needle brain biopsy of lesion. Laser interstitial therapy for brain lesion. BrainLAB neuro navigation. MRI thermal brain navigation. (Surgery date: 09/08/[address] Hand) Patient returns for 2-week post op/incision check. Patient has been doing well and the incisional site is healing well without concerns of drainage, redness, swelling. She denies any new or changing neurological symptoms. Denies fever, chills, N/V, CP/SOB or calf pain. There were no vitals taken for this visit. Incision: Well-approximated; absorbable sutures and skin ice; no E/E/discharge, no signs infections MAEW Sensation grossly intact to LT in BU/LEs No saldana's or clonus appreciated Gait Steady I/P: We discussed Wound Care education, keeping the area dry and clean MRI brain with and without contrast ordered for 3 months with neuro reconstruction Follow up in 3 months in [facility] José Luis Paul IV, PA-C 09/22/2023 1:12 PM documented in this encounter Plan of Treatment Upcoming Encounters Date Type Department Care Team (Late st Contact Info) Description 10/03/2023 9:45 AM EDT Pharmacy Pharmacy Hematology Oncology [facility] [address] [place] [address] [facility] Hem/Onc [address] [place] [address] 12/09/2023 10:45 AM EDT Imaging Radiology [facility] [address] [place] [address] 12/11/2023 7:45 AM EDT Office Visit Hematology/Oncology [facility] [address] [facility] [place] [phone] Benja Watkins MD [address] [facility] [place] [address] 01/29/2024 8:20 AM EDT Office Visit [facility] [address] [place] [phone] Martin Solorio MD [address], [place] [id number] Scheduled Orders Name Type Priority Associated Diagnoses Order Schedule MRI BRAIN W WO CONTRAST Medical Imaging Routine 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) Expected: 12/23/2023, Expires: 10/22/2024 MRI NEURO 3-D RECONSTRUCTION Medical Imaging Routine 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) Expected: 12/23/2023, Expires: 10/22/2024 Scheduled Procedures Name Priority Associated Diagnoses Date/Ti [...] this encounter Medical Devices Implanted Type Area Scratcher Device Identifier Shelf Expiration Date Model / Serial / Lot Cover [place] Hole 24mm 421.528 - [id number] Implanted:Qty: 1 on 08/20/2021 by Joni Hand III, [place] [facility] [place]: Head SYNTHES MAXILLOFACIAL 421.528 / / Plate Y Ti Lo Db 6h 21 421.517 - [id number] Implanted:Qty: 1 on 08/20/2021 by Joni Hand III, MD at [place] [facility] Right: Head SY[employer]ES MAXILLOFACIAL 421.517 / / Screw Ti Lo Pro Sd 4mm 400.834 - [id number] Implanted:Qty: 10 on 08/20/2021 by Joni Hand III, MD [place] [facility] [place] Right: Head SYNTHES MAXILLOFACIAL 400.834 / / documented as of this encounter Visit Diagnoses Diagnosis Metastasis to brain (HCC)- Primary 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
--- OUTSIDE RECORDS SUMMARY | 2024-02-27 02:29 | External Medical Summary | Summary of Care ---
Author Name Unknown Organization [facility] Address [address] [place] [address] Phone [phone] Care Team Providers Care Final Inspector Shuttle Name Role Phone Baldev Solorio MD Primary Care Provider [phone] Reason for Visit * Reason Comments eRx-Medication Refill Encounter Details Date Type Department Care Team (Late st Contact Info) Description 10/22/2023 Refill [facility] [address] [place] [address] Baldev Solorio MD [address] [place] [address] EPILEPSY;NONCONV,W/O INTRACTABLE Allergies Active Allergy Reactions Criticality Noted Date Comments Erythromycin 08/15/1997 seizures documented as of this encounter (statuses as of 10/23/2023) Medications Medication Sig Dispensed Refills Start Date End Date Status MULTIVITAMINS PO TABS Take 1 Tablet by mouth every morning. 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 90 Tablet 5 3 Active traZODone HCl 100 MG Oral Tablet (Desyrel)Indicati ons:Insomnia, unspecified type TAKE 1 & /2 (ONE & ONE-HALF) TABLETS BY MOUTH AT [...] before bedtime. 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) TAKE 2 TABLETS BY MOUTH IN THE MORNING AND 2 IN THE EVENING 360 Tablet 3 4 024 Discontinued documented as of this encounter (statuses as of 10/23/2023) Active Problems Problem Noted Date Diagnosed Date Cerebral atrophy 09/30/2023 Left sided lacunar infarction 09/30/2023 Spinal stenosis of cervical region 09/30/2023 Coronary artery disease invo lving [place] coronary artery of [place] heart without angina pectoris 09/30/2023 Pulmonary nodules [...] as of this encounter (statuses as of 10/23/2023) Resolved Problems Problem Noted Date Diagnosed Date [...] as of this encounter (statuses as of 10/23/2023) Immunizations Name Administration Dates Next Due COVID-19, [...] encounter Miscellaneous Notes * Telephone Encounter - Baldev Solorio MD - 10/23/2023 3:08 PM EDTSigned Prescriptions: Disp Refills carBAMazepine ER 200 MG Oral Tablet Extend*450 Ta*5 Sig: TAKE 3 TABLETS BY MOUTH IN THE MORNING AND 2 IN THE EVENINGAuthorizing Provider: BALDEV SOLORIO * Telephone Encounter - Amarilis Pardo LPN - 10/23/2023 10:34 AM EDTPending Prescriptions: Disp Refills carBAMazepine ER 200 MG Oral Tablet Extend*450 Ta*0 Sig: TAKE 3 TABLETS BY MOUTH IN THE MORNING AND 2 IN THE EVENING * Telephone Encounter - Kavita Moseley - 10/23/2023 6:02 AM EDTPending Prescriptions: Disp Refills carBAMazepine ER 200 MG Oral Tablet Extend*450 Ta*0 Sig: TAKE 3TABLETS BY MOUTH IN THE MORNING AND 2 IN THE EVENING documented in this encounter Plan of Treatment Upcoming Encounters Date Type Department Care Team (Late [facility]) Description 11/11/2023 9:45 AM EDT Pharmacy Pharmacy Hematology Oncology [facility] [address] [place] [address] [facility] Hem[facility]Onc [address] [place] [address] 12/09/2023 10:45 AM EDT Imaging Radiology [address] [facility] [place] [address] 12/11/2023 7:45 AM EDT Office Visit Hematology/Oncology [facility] [address] [place] [address] Benja Watkins MD [address] [place] [address] 12/24/2023 11:00 AM EDT Imaging Radiology [address] [place] [address] 01/29/2024 8:20 AM EDT Office Visit [address] [phone] Baldev Solorio MD [address] [place] [address] 10/05/2024 12:30 PM EDT Telemedicine Care at Home [address] [place] [address] Kori Dumont PA-C [address] [place] [address] Scheduled Procedures Name Priority Associated Diagnoses Date/Ti me COLONOSCOPY FLEXIBLE PROXIMA L DIAGNOSTIC Recall Family history of colon cancer Health Maintenance Due Date Last Done Comments DISCUSS TOBACCO CESSATION (REFER TO SMARTSET #1867) 1960 HIV Screening 1973 Alpha-1 Antitrypsin 1976 Hepatitis C Screening 1976 Mammogram 02/06/2022 02/06/2021, 08/0 10/2019, 02/01/2020, Additional history exists DXA Scan [...] this encounter Medical Devices Implanted Type Area Chipper Feeder Device Identifier Shelf Expiration Date Model / Serial / Lot Cover Nilda Hole 24mm 421.528 - [id number] Implanted:Qty: 1 on 08/20/2021 by Joni Hand III, [place] [facility] [place]: Head SYNTHES MAXILLOFACIAL 421.528 / / Plate Y Ti Lo Db 6h 21 421.466 - [id number] Implanted:Qty: 1 on 08/20/2021 by Joni Hand III, MD [place] [facility] [place] Right: Head SY[employer]THES MAXILLOFACIAL 421.517 / / Screw Ti Lo Pro Sd 4mm 400.834 - [id number] Implanted:Qty: 10 on 08/20/2021 by Joni Hand III, MD [place] [facility] [place]: Head SYNTHES MAXILLOFACIAL 400.834 / / documented as of this encounter Visit Diagnoses Diagnosis EPILEPSY;NONCONV,W/O INTRACTABLE Generalized nonconvulsive epilepsy without mention of intractable epilepsy documented in this encounter Advance Directives Latest [...] Directives occurred with: Not Discussed Care Teams Final Inspector Shuttle Relationship Specialty Start Date End Date Baldev Solorio MD [address] [place] [address] PCP - General Family Medicine 02/20/21 documented as of this encounter
--- OUTSIDE RECORDS SUMMARY | 2024-02-27 02:29 | External Medical Summary | Summary of Care ---
Author Name Unknown Organization [facility] Address [address] [place] [address] Phone [phone] Care Team Providers Care Stereo Equipment Repairer Name Role Phone Martin Solorio MD Primary Care Provider [phone] Reason for Visit * Reason Onset Date Comments Appointment 09/29/2023 Encounter Details Date Type Department Care Team (Late st Contact Info) Description 09/29/2023 Telephone Care at Home [address] [place], [place] [phone] Services, Scheduling [address] [place] [address] Appointment Allergies Active Allergy Reactions Criticality Noted [...] Encounter - Sharon Dumont OSA - 09/29/2023 3:16 PM EDT Care At Home Outreach Call attempt: 1st Call Call result: Call Successful - Patient enrolled and agreed to visit. Appointment with: Kori Dumont PA-C Visit Date: 09/30/23 Visit Time: 130am by video with spouse KEISHA Norris * Telephone Encounter - Sharon Dumont OSA - 09/29/2023 10:19 AM EDT Care At Home Outreach Call attempt: 1st Call Call result: Call Unsuccessful - Left a voice mail Looking to schedule patient and spouse for AWV with Care at Home Kori Dumont PA-C Can offer: HV 09/30/23 or 10/06/23 Video 09/30/23 or 10/01/23 Provided a call back number of [phone]. KEISHA Norris documented in this encounter Plan of Treatment Upcoming Encounters Date Type Department Care Team (Late st Contact Info) Description 09/30/2023 10:30 AM EDT Telemedicine Care at Home [address] [place] [address] Kori Dumont PA-C [address] [place], [place] [id number] 10/03/2023 9:45 AM EDT Pharmacy Pharmacy Hematology Oncology [facility] [place] [address] [place] [address] [facility] Hem[facility]Onc [address] [place] [address] 12/09/2023 10:45 AM EDT Imaging Radiology [address] 132 [place] [address] 12/11/2023 7:45 AM EDT Office Visit Hematology/Oncology [facility] [address] [place] [phone] Benja Watkins MD [address] [place] [address] 12/24/2023 11:00 AM EDT Imaging Radiology [address] 132 [facility] [place] [address] 01/29/2024 8:20 AM EDT Office Visit [facility] [address] [place] [phone] Martin Solorio MD [address] [place] [address] Scheduled Procedures Name Priority Associated Diagnoses Date/Ti [...] Additional history exists Lipid Panel 08/08/2028 08/08/2023, 0 11/2023, 04/10/2021, Additional history exists DTaP,Tdap,and Td [...] this encounter Medical Devices Implanted Type Area Health Care Facility Administrator Device Identifier Shelf Expiration Date Model / Serial / Lot Cover Nilda Hole 24mm 421.528 - [id number] Implanted:Qty: 1 on 08/20/2021 by Joni Hand III, [place] [facility] [place] Head SY[employer]ES MAXILLOFACIAL 421.528 / / Plate Y Ti Lo Db 6h 21 421.517 - [id number] Implanted:Qty: 1 on 08/20/2021 by Joni Hand III, [place] [facility] [place]: Head SY[employer]THES MAXILLOFACIAL 421.517 / / Screw Ti Lo Pro Sd 4mm 400.834 - [id number] Implanted:Qty: 10 on 08/20/2021 by Joni Hand [...] Directives occurred with: Not Discussed Care Teams Stereo Equipment Repairer Relationship Specialty Start Date End Date Martin Solorio MD [address] [place] [address] PCP - General Family Medicine 02/20/21 documented as of this encounter
--- OUTSIDE RECORDS SUMMARY | 2024-02-27 02:29 | External Medical Summary | Summary of Care ---
Author Name Unknown Organization [facility] Address [address] [place] [address] Phone [phone] Care Team Providers Care Poultry Buyer Name Role Phone Baldev Solorio MD Primary Care Provider [phone] Reason for Visit * Reason Comments eRx-Medication Refill Encounter Details Date Type Department Care Team (Late st Contact Info) Description 10/09/2023 Refill [facility] [address] [place] [address] Baldev Solorio MD [address] [place] [address] Adjustment disorder with depressed mood Allergies Active Allergy Reactions Criticality Noted Date Comments Erythromycin 08/15/1997 seizures documented as of this encounter (statuses as of 10/09/2023) Medications Medication Sig Dispensed Refills Start Date [...] every evening. 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 In the morning. 90 Tablet 2 3 024 Discontinued documented as of this encounter (statuses as of 10/09/2023) Active Problems Problem Noted Date Diagnosed Date Cerebral atrophy 09/30/2023 Left sided lacunar infarction 09/30/2023 Spinal stenosis of cervical region 09/30/2023 Coronary artery disease invo lving [place] coronary artery of [place] heart without angina pectoris 09/30/2023 Pulmonary nodules [...] as of this encounter (statuses as of 10/09/2023) Resolved Problems Problem Noted Date Diagnosed Date [...] as of this encounter (statuses as of 10/09/2023) Immunizations Name Administration Dates Next Due COVID-19, [...] encounter Miscellaneous Notes * Telephone Encounter - Dre Polanco [facility] - 10/09/2023 4:31 PM EDT Signed Prescriptions: Disp Refills PARoxetine HCl 40 MG Oral Tablet (pAXil) 90 Tab*1 Sig: TAKE 1 TABLET BY MOUTH IN THE MORNINGAuthorizing Provider: BALDEV SOLORIO User: DRE POLANCO documented in this encounter Plan of Treatment Upcoming Encounters Date Type Department Care Team (Late st Contact Info) Description 10/14/2023 9:45 AM EDT Pharmacy Pharmacy Hematology Oncology [address] [address] [facility] Hem/Onc [address] [place] [address] 12/09/2023 10:45 AM EDT Imaging Radiology [address] [place] [address] 12/11/2023 7:45 AM EDT Office Visit Hematology/Oncology [facility] [address] [place] [phone] Benja Watkins MD [address] [place] [address] 12/24/2023 11:00 AM EDT Imaging Radiology [address] [facility] [place] [address] 01/29/2024 8:20 AM EDT Office Visit [facility] [address] [place] [address] Baldev Solorio MD [address] [place], [place] [address] 10/05/2024 12:30 PM EDT Telemedicine Care at Home [address] [place] [address] Kori Dumont PA-C [address] [place] [address] Scheduled Procedures Name Priority Associated Diagnoses Date/Ti me COLONOSCOPY FLEXIBLE PROXIMA L DIAGNOSTIC Recall Family history of colon cancer Health Maintenance Due Date Last Done Comments DISCUSS TOBACCO CESSATION (REFER TO SMARTSET #9257) 1960 HIV Screening 1973 Alpha-1 Antitrypsin 1976 [...] this encounter Medical Devices Implanted Type Area Digital Assistant Device Identifier Shelf Expiration Date Model / Serial / Lot Cover Nilda Hole 24mm 421.528 - [id number] Implanted:Qty: 1 on 08/20/2021 [place]i Hand III[place] [facility] [place] SYNTHES MAXILLOFACIAL 421.528 / / Plate Y Ti Lo Db 6h 21 421.517 - [id number] Implanted:Qty: 1 on 08/20/2021 by Joni Hand III, [place] [facility] [place] Head SYN[employer]ES MAXILLOFACIAL 421.517 / / Screw Ti Lo Pro Sd 4mm 400.834 - [id number] Implanted:Qty: 10 on 08/20/2021 by Joni Hand III, [place] [facility] [place] Head SYNTHES MAXILLOFACIAL 400.834 / / documented as of this encounter Visit Diagnoses Diagnosis Adjustment disorder with depressed mood documented in this encounter Advance Directives Latest [...] Directives occurred with: Not Discussed Care Teams Poultry Buyer Relationship Specialty Start Date End Date Baldev Solorio MD [address] [facility] [place] [address] PCP - General Family Medicine 02/20/21 documented as of this encounter
--- OUTSIDE RECORDS SUMMARY | 2024-02-27 02:29 | External Medical Summary | Summary of Care ---
Author Name Unknown Organization [facility] Address [address] [place] [address] Phone [phone] Care Team Providers Care Buffer Machine Name Role Phone Baldev Solorio MD Primary Care Provider [phone] Reason for Visit * Reason Comments Adult Annual Wellness Visit, Initial Vis it Encounter Details Date Type Department Care Team (Latest Contact Info) Description 09/30/2023 10:30 AM EDT Telemedicine Care at Home [address] [place] [address] Kori Dumont PA-C [address] [place] [address] Adjustment disorder with depressed mood*; Cerebral atrophy (HCC); Centrilobular emphysema (HCC); Left sided lacunar infarction (HCC); Brain lesion; Malignant 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); Chronic hyponatremia; Chronic rhinitis; Drug-induced hepatitis; Dyslipidemia; 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); HTN, goal below 130/80; Hx of melanoma of skin; 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); Spinal stenosis of cervical region; Coronary artery disease involving [place] coronary artery of [place] heart without angina pectoris; Pulmonary nodules; Left atrial enlargement; Mild mitral regurgitation; Mild tricuspid regurgitation; Mild pulmonary valve regurgitation Allergies Active Allergy Reactions Criticality Noted Date Comments Erythromycin 08/15/1997 seizures documented as of this encounter (statuses as of 09/30/2023) Medications Medication Sig Dispensed Refills Start Date [...] as of this encounter (statuses as of 09/30/2023) Active Problems Problem Noted Date Diagnosed Date Cerebral atrophy 09/30/2023 Left sided lacunar infarction 09/30/2023 Spinal stenosis of cervical region 09/30/2023 Coronary artery disease invo lving twin hills coronary artery of [place] heart without angina pectoris 09/30/2023 Pulmonary nodules [...] as of this encounter (statuses as of 09/30/2023) Resolved Problems Problem Noted Date Diagnosed Date [...] as of this encounter (statuses as of 09/30/2023) Immunizations Name Administration Dates Next Due COVID-19, [...] of this encounter Progress Notes * Kori Dumont PA-C - 09/30/2023 10:29 AM EDT Images from the original note were not included. ANNUAL HEALTH RISK ASSESSMENT Care at Home [address] [facility] [address] Patient location: HOME. I was not in a hospital or clinic location. After connecting through televideo, patient was verified with two unique identifiers. Patient (or authorized legal maintenance representative) was then informed that this was a Telemedicine visit and being conducted confidentially over secure lines. Methods to assure confidentiality were taken. Patient acknowledged consent and understanding of privacy and security of the Telemedicine visit. The patient agreed to participate. Patient Name: Judy Rowe : 1960 Date of Assessment: 09/30/2023 Gender: Female PCP: BALDEV SOLORIO [address] [place], [place] [id number] Extended Emergency Contact Information Primary Emergency Contact: Kwame Rowe [place] Mobile Relation: Spouse Preferred language: [place]uran Lump Roller needed? No HRA Intake Documentation: Advance Care Planning: Advance Directive Type: Organ Donor and Information given: Yes Advance Directive Date: n/a Medical Adherence: Patient is able to obtain all of her medications? Yes Patient takes medications as prescribed? Yes Patient uses a pill box? Yes, refill(s) completed by self Admissions (within the last year): Not Applicable Hospital ER within 30 days: No Health Maintenance Last physical exam: 07/31/23 Does patient see provider regularly? Yes, Primary Care Provider and Dr. Watkins- oncology, Dr. Hand-surgery, Dr. Schneider-surgery Spirometry: No Dental Exam: No Other Test(s) - No time frame specified SURGICAL PATHOLOGY: [id number] Order: [id number] Status: Final result Visible to patient: Yes (seen) Next appt: 10/03/2023 at 09:45 AM in Pharmacy ([facility]) Dx: Brain tumor (HCC) 0 Result Notes Component Final Diagnosis A. Brain, left frontal, biopsy: -- Minute fragment of brain parenchyma with reactive gliosis. -- Negative for malignancy. -- See comment. Comment: Correlation with imaging to ensure adequately sampling is required. Exam End Date Exam End Time 11/15/2020 11:25 AM US ABDOMEN LIMITED Order: [id number] Status: Final result Visible to patient: Yes (seen) Next appt: 10/03/2023 at 09:45 AM in Pharmacy ([facility]) Dx: History of malignant melanoma of skin 0 Result Notes Details Reading Physician Reading Date Result Priority Thais Montaño MD [phone] 11/16/2020 Narrative & Impression EXAM US ABDOMEN LIMITED-11/15/2020 11:25 am HISTORY look for lymphadenopathy in the left inguinal region. TECHNIQUE Static and cine sonographic images were obtained. COMPARISON US ABDOMEN LIMITED dated 08/30/2019; US ABDOMEN LIMITED dated 04/27/2019; US ABDOMEN LIMITED dated 01/12/2019 FINDINGS Targeted sonographic evaluation of the left inguinal region was performed. Multiple small physiologic appearing lymph nodes are noted. For example lymph nodes measuring 8 x 4 x 6 mm, 6 x 3 x 6 mm and10 x 4 x 8 mm. IMPRESSION IMPRESSION Physiologic appearing lymph nodes within the left groin. Exam End Date Exam End Time 11/15/2020 12:[address] CHEST W CONTRAST Order: [id number] Status: Final result Visible to patient: Yes (seen) Next appt: 10/03/2023 at 09:45 AM in Pharmacy ([facility]) Dx: Lung nodule 0 Result Notes Details Reading Physician Reading Date Result Priority Elia Patel MD [phone] 11/21/2020 Narrative & Impression EXAM EXAM: CT CHEST W CONTRAST DATE and TIME: 11/15/2020 12:11 pm HISTORY 60 y/o ,F,Hx of lung nodules on prior CT.. TECHNIQUE Helical CT images obtained at 5 mm slice thickness from the thoracic inlet to below the diaphragm. Postprocessing reconstructions of the thorax at 1 mm slice thickness, axial MIP, coronal and sagittal reformats. - IV Contrast: 100 mL Optiray- 320. COMPARISON CT CHEST W CONTRAST dated 10/19/2019 FINDINGS LINES AND DEVICES: None MEDIASTINUM AND ANNELIESE: Unremarkable HEART: Normal heart size. No pericardial effusion. VESSELS: Moderate calcified plaque burden within the coronary arteries. No calcification of the aortic valve. No aneurysmal dilatation of the thoracic aorta. LARGE AIRWAYS: Unremarkable LUNGS: LUNG NODULES Right lung: - Decrease in size of 2 mm noncalcified pulmonary nodule within the upper lobe, previously 4 mm; axial series 4, image 70/170. - Stable 4 mm pulmonary nodule within the upper lobe; axial series 4, image 118/170. - Stable 9 x 7 mm ground-glass attenuation pulmonary nodule within the lower lobe; axial series 4, image 120/170. Left lung: - Stable 2 mm pulmonary nodule within the upper lobe; axial series 4, image 27/170. - Stable 3 mm pulmonary nodule within the upper lobe; axial series 4, image 52/170. - Stable 5 mm pulmonary nodule within the lower lobe; axial series 4, image 98/170. PLEURA: No pleural effusion. CHEST WALL/SOFT TISSUES: No axillary lymphadenopathy. BONES: Partially visualized cervical ACDF hardware; and lumbar laminectomy. The thoracic vertebral body heights are preserved. UPPER ABDOMEN: Cholecystectomy. IMPRESSION IMPRESSION Small bilateral pulmonary nodules have remained stable or decreased in size. Follow-up with noncontrast CT chest. Specimen Collected: 11/21/20 16:16 Last Resulted: 11/21/20 16:14 Exam End Date Exam End Time 02/06/2021 10:30 AM MAMMOGRAM SCREENING SANTOS BILATERAL Order: [id number] Status: Final result Visible to patient: Yes (seen) Next appt: 10/03/2023 at 09:45 AM in Pharmacy ([facility]) Dx: Encounter for screening mammogram for... 0 Result Notes 1 Topic Assessment Overall 1 - Negative Mammography Recommendations Side Due Screening mammogram in 1 year 02/06/2022 Breast Density Overall Left Breast Composition c - Heterogeneously dense c - Heterogeneously dense Details Reading Physician Reading Date Result Priority Noelle Chin MD [phone] 02/11/2021 Routine Physician Responsible for MQSA Outcome Reason Noelle Chin MD Signed Narrative & Impression Result MAMMOGRAM SCREENING SANTOS BILATERAL History Encounter for screening mammogram for breast cancer Family medical history includes breast cancer in 4 relatives (aunt (maternal), mother (age of onset: 80), sister (age of onset: 58), sister (age of onset: 62)). Films Compared Compared to: 03/15/2020 MRI BREAST BILATERAL W WO CONTRAST, 02/22/2020 US BREAST LIMITED LEFT, 02/22/2020 MAMMOGRAM DIAGNOSTIC SANTOS LEFT, 02/01/2020 MAMMOGRAM SCREENING SANTOS BILATERAL, 08/30/2015 RADIOLOGY EXAM - MAMMOGRAPHY (IMAGES ONLY, NO REPORT), 08/18/2015 MAMMOGRAM, SCREENING, BILAT, 03/17/2013 MAMMOGRAM, SCREENING, BILAT, and 03/16/2013 RADIOLOGY EXAM - MAMMOGRAPHY (IMAGES ONLY, NO REPORT) Findings Left The left breast is heterogeneously dense, which may obscure small masses. There is no evidence of suspicious masses, calcifications, or other abnormal findings in the left breast. Right There is no evidence of suspicious masses, calcifications, or other abnormal findings in the right breast. Impression Bilateral No mammographic evidence of malignancy. BI-RADS Category: 1 - Negative. Exam End Date Exam End Time 04/29/2023 1:[address] WHOLE BODY Order: [id number] Status: Final result Visible to patient: Yes (seen) Next appt: 10/03/2023 at 09:45 AM in Pharmacy ([facility]) Dx: Malignant melanoma of left lower extr... 1 Result Note 1 Follow-up Encounter Details Reading Physician Reading Date Result Priority Elia Patel MD [phone] 04/30/2023 Narrative & Impression EXAM: PET CT WHOLE BODY - 04/29/2023 - 04/29/2023 1:16 pm HISTORY 63 y/o ,F,Melanoma involving the left leg, recurrent disease involving the brain. Subsequent evaluation. COMPARISON: July 11, 2022 FDG-PET/CT. TECHNIQUE: The patient's fasting blood glucose was 85 mg/dL. Approximately 61 minutes following intravenous injection of 10.9 mCi 26-koiyou-7-deoxyglucose (FDG) within the right hand and oral contrast Gastroview administration, low dose noncontrast CT images were obtained at 5 mm slice thickness from the skull vertexthrough toes. Then, emission PET images were obtained through the same region. The noncontrast CT was used for anatomic localization and photon attenuation correction of the PET scan. The standardized uptake values (SUV) reported below are maximum values within a region of interest. FINDINGS: BACKGROUND METABOLIC ACTIVITY - Lower limit, mediastinal blood pool: SUV 2.2. - Upper limit, liver: SUV 4. HEAD Right temporoparietal craniotomy. Wedge-shaped photopenia corresponds to the right parietal resection cavity. NECK Metabolically-active cervical lymph nodes: Absent. CHEST LINES DEVICES: Absent. CHEST WALL No focal metabolic activity localizes to either breast. LUNG Centrilobular emphysema. Focal metabolic activity within lungs: Absent. METABOLICALLY-ACTIVE LYMPH NODES Mediastinal: Absent. Hilar: Absent. Axillary: Absent. MEDIASTINUM Normal heart size. No pericardial effusion. VESSELS Calcified coronary artery plaque burden: Moderate. Aortic valvular calcification: Mild. Thoracic aortic aneurysm: Absent. ABDOMEN LINES DEVICES: Absent. ABDOMINAL WALL/PERITONEUM: No ascites. INTRAPERITONEUM Metabolically-active intraperitoneal lymph nodes: Absent. Liver / spleen: Symmetric low intensity homogeneous metabolic activity throughout the parenchyma ofthe liver and spleen. Biliary: Cholecystectomy. Bowel: No small bowel dilatation or evidence for obstruction. Normal caliber appendix. Formed stoolwithin large bowel. RETROPERITONEUM Metabolically-active retroperitoneal lymph nodes: Absent. Adrenal glands: Symmetric low metabolic activity throughout both adrenal glands. Pancreas: Homogeneous low-level metabolic activity throughout the pancreatic parenchyma. No ductal dilatation. Kidneys: No renal or ureteral calculus. No hydronephrosis. Excreted radiotracer activity within therenal collecting systems and ureters. Abdominal aorta: No aneurysm. PELVIS Metabolically-active pelvic lymph nodes: Absent. Hysterectomy. MUSCULOSKELETAL No focal metabolic activity localizes to the skin or soft tissues. Focal metabolic activity within bones: Absent. Anterior cervical discectomy and fusion within the lower cervical spine. An anterior plate and screws fixate C3-C7. Left knee total arthroplasty. IMPRESSION: No FDG PET-CT evidence for recurrence of melanoma. Specimen Collected: 04/30/23 10:46 Last Resulted: 04/30/23 10:44 Narrative & Impression EXAM MRI BRAIN W WO CONTRAST MRI NEURO 3-D RECONSTRUCTION 08/22/2023 11:13 am HISTORY Growing brain metastasis despite possible previous SRS. COMPARISON Comparison is made with the prior brain MRI dated 06/28/2023. TECHNIQUE Brain tumor protocol MRI was performed with and without administration of IV gadolinium. According to the cardiovascular technologist's notes, the patient squeezed the alarm button during the 2nd injection for the perfusion sequence and the study was stopped. The perfusion images are nondiagnostic. FINDINGS The perfusion images are nondiagnostic. There has been interval increase in size of the enhancing left frontal lobe lesion that now measures 9 mm x 8 mm, previously measuring 5 mm x 5 mm. There is increased T2 prolongation seen along the margin of the enhancing lesion within the left frontal lobe, worrisome for increased edema. There is a small corresponding focus of intrinsic T1 hyperintensity within the lesion, similar to the prior MRI. There are postsurgical changes of right parietal craniotomy. There is a resection cavity seen within the right parietal lobe. The irregular enhancement seen within the medial right parietal lobe similar in size and appearance to the prior MRI. There is encephalomalacia within the right parietal lobe, similar to the prior MRI. There is stable T2 prolongation seen within the right parietal lobe. There is hemosiderin staining seen along the medial aspect of the right parietal lobe, similar to the prior MRI. There is proportional enlargement of the ventricles and sulci, consistent with mild global volume loss. The ventricles are not significantly changed in size compared with the prior MRI. There is a chronic lacunar infarction within the left thalamus. There are additional scattered nonspecific subcortical and periventricular foci of T2/FLAIR hyperintensity, most commonly associated with chronic small vessel disease. The basal cisterns are patent. The normally expected, central arterial flow voidsof the [place] are grossly maintained. There is a left vertebral artery dominant posterior circulation, similar to the prior MRI. The calvarium is not significantly changed. The nasal septum is deviated to the left. There is T2 hyperintense partial opacification of the left mastoid air cells, which may represent a mastoid effusion. The orbits are not significantly changed. The paranasal sinuses are clear. There are postsurgical changes seen within the visualized upper cervical spine. There is spinal canal stenosis at C3-C4,similar to the prior MRI. IMPRESSION IMPRESSION 1. Continued interval increase in size [...] MRI. 3. Additional findings as described above. Specimen Collected: 08/22/23 15:23 Last Resulted: 08/22/23 15:21 Status: Final result (Resulted: 12/17/2017 15:06) Provider Status: Reviewed Collection Information Collected: 12/16/2017 2:33 PM Resulting Agency: [facility] CARDIOLOGY 12/17/2017 3:06 PM - Interface, Churn Tender Narrative & Impression REASON FOR STUDY: PRE OP CONCLUSIONS: Normal sinus rhythm Normal ECG No previous ECGs available Ventricular Rate: 65 Atrial Rate: 65 AR Interval: 182 QRS Duration: 88 QT/QTc: 400/416 ms P-R-T [place]: 47 : 59 : 58 degrees RUSSELL Jansen [id number] Name: JUDY ROWE Adult Transthoracic Echocardiography Report Study Date: 03/22/2022 10:49 AM Study Location: [place] Patient Location: [place] : 1960 Age: 61 yrs Gender: Female Referring Physician: PAULA WORRELL Ordering Physician: PAULA WORRELL Height: 61 in Weight: 140 lb BSA: 1.6 m2 Resting HR: 79 Order #: [id number] Billing #: [id number] Reason For Study: oral chemo monitoring? evaluate LVEF Interpretation Summary The qualitative LV ejection fraction is 55- 59% (normal). The left atrium is mildly enlarged (35-41 ml/m^2).The left ventricular diastolic function is normal. Mild aortic valve sclerosis is present. Mild mitral regurgitation is present. Mild tricuspid regurgitation is present. There is no evidence of pulmonary hypertension. Left Ventricle The qualitative LV ejection fraction is 55-59% (normal). The left ventricular cavity size is normal. The LV wall thickness is normal. There is no left ventricular mural thrombus. Left Ventricular Wall Motion The left ventricular wall motion is normal. Right Ventricle The right ventricular cavity size is normal (basal dimension < 4.2 cm RV apical 4 chamber view). The right ventricular systolic function is normal as assessed by tricuspid annular plane systolic excursion (TAPSE) (normal >1.7 cm). Atria The left atrium is mildly enlarged (35-41 ml/m^2). The right atrial size is normal. Diastolic Function The left ventricular diastolic function is normal. Aortic Valve The aortic valve anatomy is normal. Mild aortic valve sclerosis is present. Aortic stenosis is absent. There is no significant aortic regurgitation. Mitral Valve The mitral valve anatomy is normal. Mitral stenosis is absent. Mild mitral regurgitation is present. Tricuspid Valve The tricuspid valve anatomy is normal. Tricuspid stenosis is absent. Mild tricuspid regurgitation is present.Pulmonary Valve The pulmonary valve is inadequately visualized but the Doppler data is adequate for interpretation.. Pulmonic stenosis is absent. There is mild pulmonary regurgitation. Pericardium Nopericardial effusion is noted. Vessels No Doppler findings of significant proximal descending aortacoarctation on limited screening images. The aortic root and proximal JUDY JAE 03/22/2022 Page 1 of 2 03/22/2022 ascending aorta are normal sized. Septae There is no evidence of an atrial septal defect but resolution does not allow assessment for a patent foramen ovale. There is no ventricular septal defect. Hemodynamics There is no evidence of pulmonary hypertension. Normal IVC size and collapsability with sniff indicates a normal right atrial pressure of 3 mmHg. Referral Diagnosis Encounterfor antineoplastic chemotherapy [Z51.11] Procedure Details 17951: Complete /2D MMode adult echocardiogram, Complete doppler interrogation, and Colorflow Doppler performed. [id number]: Myocardial Strain Imaging Echocardiography forestry aid technician: Heidy Gastelum RDCS The examination quality was diagnostic. The pa tient was informed of the procedure and had opportunity to ask questions and was willing to proceedwith test. The patient identification was verified prior to procedure by date of and stated name. The primary indication after review was deemed appropriate and the examination was performed. Cultural Needs: Preferred Language: albanian Spiritism/Cultural Barriers Identified: no Patient and Caregiver Support System: Patient lives: with a spouse Means of Transportation: Drives. Not a concern. Patient lives in: One Story - with basement stairs: does not have to go down otherwise ranch Functional Status and ADL Skills: Ambulation: Walker Dressing: Gets clothes and dresses without any assistance except for tying shoes: Independent Repositioning (bed or chair): Bed Status: Not applicable Able to move freely in chair or bed including turning over: Independent Transfers: Independent Toileting: Goes to bathroom, uses toilet, arranges clothes and returns without any assistance: Independent Continence status: continent of bladder and continent of bowel Feeding: Self Bathing: Self; Shower Chair and grab bars Requires none assistance with ADLs. DME Vendor Name: [employer] [place] [facility] Fall Risk Assessment: Fall risk factors present. Balance or gait disturbances Rxs-Eg-iyv-Go Test: Not done. Fall risk Nutritional Health Checklist: Changed food due to illness or condition: No (0 pts) Eat fewer than 2 meals per day: No (0 pts) Eat few fruits veggies or milk products: Yes (2 pts) 3 or more drinks or beer, liquor, wine daily: No (0 pts) Tooth or mouth problem: No (0 pts) Not enough money to purchase food: No (0 pts) Eat alone: No (0 pts) 3 or more medications taken per day: Yes (2 pts) Weight change of 10 lbs. In 6 months: No (0 pts) Not always able to shop, cook or feed self: Yes (2 pts) Total points: 6 Nutritional Health Score & Recommendation: 6 or more: High nutritional risk Depression Screening: PHQ2 Depression Screening Measure Rehab initial measurement Rehab discharge measurement 1. Little interest or pleasure in doing things 0 - not at all 2. Feeling down, depressed, or hopeless 0 - not at all PHQ-2 Total (sum of all above): 0 1. Feeling nervous, anxious or on edge not at all 2. Not being able to stop or control worrying not at all ANUJA-2 Total (sum of all above): 0 Social Determinants of Health Screening: SDKS Screening Tool Social Determinants of Health Tobacco Use: High Risk (09/10/2023) Patient History Smoking Tobacco Use: Every Day Smokeless Tobacco Use: Never Passive Exposure: Not on file Alcohol Use: Not on file Financial Resource Strain: Not on file Food Insecurity: No Food Insecurity (09/16/2023) Hunger Vital Sign Worried About Running Out of Food in the Last Year: Never true Ran Out of Food in the Last Year: Never true Transportation Needs: Not on file Physical Activity: Not on file Stress: Not on file Social Connections: Not on file Intimate Partner Violence: Not on file Depression: Not at risk (09/10/2023) PHQ-2 PHQ-2 Score: 0 Housing Stability: Not on file Community Resources: Community Resources: Not Applicable Potential Resource Needs from Benefits Identified: No HRA Provider Assessment Documentation: Objective 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7 Epilepsy HTN, goal below 130/80 10/09/2018 Hypercholesteremia Hypothyroidism due to medication 2023-07-31 Adding E03.2-Hypothyroidism due to medication Dx to History OTHER 2005 athritis OTHER 2006 Kidney stones Skin cancer 2018 Patient Active Problem List Diagnosis Code Adjustment disorder with depressed mood F43.21 Migraine with aura G43.109 Tobacco use disorder F17.200 Chronic rhinitis J31.0 Dyslipidemia E78.5 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) G40.309 Malignant melanoma of left lower extremity (HCC) C43.72 Encounter for antineoplastic chemotherapy Z51.11 HTN, goal below 130/80 I10 Drug-induced hepatitis K71.6, T50.905A Chronic hyponatremia E87.1 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) C77.4 Hx of melanoma of skin Z85.820 Malignant 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) C79.31 Brain lesion G93.9 Cerebral atrophy (HCC) G31.9 Left sided lacunar infarction (HCC) I63.81 Spinal stenosis of cervical region M48.02 Coronary artery disease involving [place] coronary artery of [place] heart without angina pectoris I25.10 Pulmonary nodules R91.8 Centrilobular emphysema (HCC) J43.2 Left atrial enlargement I51.7 Mild mitral regurgitation I34.0 Mild tricuspid regurgitation I07.1 Mild pulmonary valve regurgitation I37.1 Family History Problem Relation Age of Onset Heart Disorder Father stented age 60's Heart Disorder Mother a fib in 60's Breast Cancer Mother 80 Breast Cancer Sister 58 Breast Cancer Sister 62 Breast Cancer Aunt (Maternal) Review of patient's allergies indicates: Allergen Reactions Erythromycin seizures Current Outpatient Medications Medication Sig Dispense Refill MULTIVITAMINS PO TABS Take 1 Tablet by mouth every morning. 0 PARoxetine HCl 40 MG Oral Tablet (pAXil) Take 1 Tablet by mouth every morning. In the morning. 90 Tablet 2 Levothyroxine Sodium 200 MCG Oral Tablet TAKE 1 TABLET BY MOUTH IN THE MORNING AT LEAST 30 MIN PRIOR TO BREAKFAST OR OTHER MEDS 90 Tablet 0 Trametinib Dimethyl Sulfoxide 0.5 MG Oral Tablet (Mekinist) Take 3 tablets (1.5mg) by mouth in the morning. 90 Tablet 5 traZODone HCl 100 MG Oral Tablet (Desyrel) TAKE 1 & 1/2 (ONE & ONE-HALF) TABLETS BY MOUTH AT BEDTIME 45 Tablet 5 Losartan Potassium 50 MG Oral Tablet (Cozaar) Take 1 Tablet by mouth in the morning. 90 Tablet 3 Atorvastatin Calcium 20 MG Oral Tablet (Lipitor) Take 1 Tablet by mouth every evening. 90 Tablet 3 carBAMazepine ER 200 MG Oral Tablet Extended Release 12 Hour (Tegretol-Xr) TAKE 2 TABLETS BY MOUTH IN THE MORNING AND 2 IN THE EVENING 360 Tablet 3 Dabrafenib Mesylate 75 MG Oral Capsule (Tafinlar) Take 1 Capsule by mouth in the morning and 1 Capsule before bedtime. 120 Capsule 5 Ondansetron HCl 8 MG Oral Tablet (Zofran) TAKE 1 TABLET BY MOUTH TWICE DAILY 30 MIN PRIOR TO ADMINISTRATION OF TAFINLAR 60 Tablet 0 No current facility-administered medications for this visit. Past Surgical History: Procedure Laterality Date ANESTHESIA FOR OPEN HEAD SURGERY 1995 for seizure control - successful BX LYMPH NODE-SUPERFIC Left 12/26/2017 BIOPSY LYMPH NODE OPEN SUPERFICIAL performed by Saw Arevalo MD at OR [facility] CHEMOTHERAPY for skin cancer from 2017 COLONOSCOPY, DIAGNOSTIC (RECTUM) 08/10/2010 diverticula COLONOSCOPY, DIAGNOSTIC (RECTUM) 06/05/2021 internal hemorrhoids/recall 5 years/COLONOSCOPY FLEXIBLE PROXIMAL DIAGNOSTIC performed by Sharon Vázquez MD at ENDOSCOPY [facility] CYSTOSCOPY 10/2005 Dr. Bone INFORMATION Left 11/14/2017 Skin lesion excised from left lower leg, in-office performed by Dr. Kelton Gillis 11/14/2017 LAPAROSCOPY, CHOLECYSTECTOMY WITH CHOLANGIOGRAPHY 01/25/2004 Laparoscopic cholecystectomy with [place] [facility] [place] NERVOUS SYSTEM SURGERY NEC N/A 09/08/2023 UNLISTED PROCEDURE NERVOUS SYSTEM performed by Bereket Lawler [facility] REMOVAL OF TONSILS, AGE 12+ 2003 REMOVE SUPRATENTORIAL BRAIN TUMOR Right 08/20/2021 CRANIOTOMY BONE FLAP EXCISION BRAIN TUMOR SUPRATENTORIAL performed by Joni Hand III, MD at OR [facility] RMV MALG LSN TRK/ARM/LG 1.1-2C Left 12/26/2017 EXCISION MALIGNANT TRUNK ARM LEG 1.1 TO 2CM performed by Saw Arevalo MD at OR [facility] TOTAL ABD HYSTERECTOMY W/WO REMOVAL OF TUBE(S) 1999 partial [facility] Immunization History Administered Date(s) Administered COVID-19 mRNA, LNP-s, No Preserve, 2-Dose Series (zlien) 09/12/2020, 10/03/2020 COVID-19, MRNA-LNP, 23-24, PF, 50 MCG/0.5 mL, 12 YRS AND ABOVE, IM (MODERNA- Spikevax) 06/26/2023 Pneumococcal Conjugate Vacc, 13 Valent (Prevnar) 04/08/2019, 04/22/2022, 03/08/2023 Pneumococcal Polysaccharide PPV23 (Pneumovax) 04/23/2013 RSV Vac., Recomb, Adjuvant, PF,0.5 Ml (Arexvy) 06/26/2023 Seasonal Influenza, PF, 6 M & above, IM , (FluLaval or Fluzone) 04/08/2019, 04/26/2020, 04/04/2021 Seasonal Influenza, Quadrivalent, No Preserve, IM 03/08/2023 Seasonal Influenza, Split, IIV3, No Preserve, Inj 06/08/2015, 06/07/2016 TD, Preservative Free 04/20/2007 TDAP (age 10 and older)(Boostrix) 02/20/2021 Zoster Vaccine Recombinant (Shingrix) 04/22/2022, 07/17/2022 Preventative Plan: Mammogram (Every 2 years for women 50-74 years of age): see above Pap Smear (every 3 years): not sure Diabetes (Fasting plasma glucose every 3 years): Hemoglobin AIC Results: No results found for: "HEMOGLOBIN A1C" Glucose Results: Lab Results Component Value Date/Time GLUCOSE - [facility] 98 09/03/2023 10:49 AM GLUCOSE - [facility] 90 08/08/2023 10:11 AM GLUCOSE - [facility] 120 05/27/2023 10:47 AM GLUCOSE - [facility] 93 05/10/2020 02:10 PM GLUCOSE - [facility] 96 10/08/2019 03:01 PM GLUCOSE - [facility] 85 04/19/2019 11:23 AM GLUCOSE METER POCT - [facility] 100 09/08/2023 06:05 AM GLUCOSE METER POCT - [facility] 119 08/21/2021 08:54 AM GLUCOSE METER POCT - [facility] 114 08/20/2021 05:31 PM GLUCOSE METER POCT - [facility] 72 01/14/2018 07:51 AM GLUCOSE, URINE - [facility] neg 10/13/2010 12:00 AM GLUCOSE, URINE - [facility] - 08/15/2006 12:00 AM GLUCOSE, URINE - [facility] NEGATIVE 03/20/2001 02:29 PM GLUCOSE, WHOLE BLOOD - [facility] 107 08/20/2021 03:29 PM Lipid Testing (Every 5 years): Lipid Panel Results: Results for orders placed or performed in visit on 08/08/23 LIPID PANEL WITH DIRECT LDL IF TG IS HIGH Result Value Ref Range Triglycerides 121 <=174 mg/dL Cholesterol 246 (H) <200 mg/dL HDL Cholesterol 66 >49 mg/dL Non-HDL Cholesterol 180 (H) <=159 mg/dL LDL Cholesterol 156 (H) <=129 mg/dL Colonoscopy or other screening: see above Bone Density (every 2+ years): not done Health Maintenance Topic Date Due HIV Screening Never done Hepatitis C Screening Never done Mammogram 02/06/2022 DXA Scan Never done Pneumococcal Vaccine: 65+ Years (3 of 3 - PPSV23 or PCV20) 05/03/2023 TSH 08/08/2024 GFR 09/03/2024 Depression Screening 09/10/2024 COLONOSCOPY-EVERY 5 YRS AGES 18-100 06/05/2026 Albumin/Creatinine Ratio 07/25/2026 Diabetes Screening 09/08/2026 Lipid Panel 08/08/2028 DTaP,Tdap,and Td Vaccines (2 - Td or Tdap) 02/20/2031 Influenza Vaccine (FLU shot) Completed Zoster Vaccines Completed COVID-19 Vaccine Completed Hepatitis B Aged Out MENINGOCOCCAL (MENACTRA/MENVEO) Aged Out GARDASIL-HPV IMMUNIZATION SERIES Aged Out Review of Systems: Review of Systems All other systems reviewed and are negative. Physical Exam: There were no vitals filed for this visit. Pain Screening: no Pain Scale: 0 = none There is no height or weight on file to calculate BMI. Physical Exam Constitutional: Appearance: Normal appearance. HENT: Head: Normocephalic. Eyes: Extraocular Movements: Extraocular movements intact. Pulmonary: Effort: Pulmonary effort is normal. Musculoskeletal: Cervical back: Neck supple. Neurological: General: No focal deficit present. Mental Status: She is alert and oriented to person, place, and time. Psychiatric: Mood and Affect: Mood normal. Behavior: Behavior normal. Lab Data: Lab Results Component Value Date/Time BUN - [facility] 10 09/03/2023 10:49 AM BUN - [facility] 10 05/10/2020 02:10 PM Lab Results Component Value Date/Time CREATININE - [facility] 0.8 09/03/2023 10:49 AM CREATININE - [facility] 0.8 05/10/2020 02:10 PM CREATININE, RANDOM URINE - [facility] 126 07/25/2023 10:06 AM Lab Results Component Value Date/Time GLUCOSE - [facility] 98 09/03/2023 10:49 AM GLUCOSE - [facility] 93 05/10/2020 02:10 PM GLUCOSE METER POCT - [facility] 100 09/08/2023 06:05 AM GLUCOSE METER POCT - [facility] 72 01/14/2018 07:51 AM GLUCOSE, URINE - [facility] neg 10/13/2010 12:00 AM GLUCOSE, WHOLE BLOOD - [facility] 107 08/20/2021 03:29 PM No components found for: "[id number]" Lab Results Component Value Date/Time LD - [facility] 182 11/15/1996 10:00 AM LDL CHOLESTEROL (CALCULATED) - [facility] 156 (H) 08/08/2023 10:11 AM LDL CHOLESTEROL (CALCULATED) - [facility] 142 (H) 04/18/2014 08:03 AM LDL CHOLESTEROL (DIRECT MEASURE) - [facility] 183 (H) 04/11/2009 12:07 PM No results found for: "MICROALBUMIN" Assessment/Plan: Judy Tong" was seen today for adult annual wellness visit, initial visit. 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 No changes at this time. Strongly advised to contact her care team if changes occur. Care Planning (3+ Personal and/or Medical Goals): Cancer free Maintain independence Maintain current activity level Treatment Plan: Continue present medication and follow up with PCP as needed Follow Up/Handouts: CAHAWV f/u one year Kori Dumont PA-C documented in this encounter Plan of Treatment Upcoming Encounters Date Type Department Care Team (Late st Contact Info) Description 10/03/2023 9:45 AM EDT Pharmacy Pharmacy Hematology Oncology [facility] [address] [place] [address] [facility], [facility] Hem/Onc [address] [place] [address] 12/09/2023 10:45 AM EDT Imaging Radiology [address] [address] 12/11/2023 7:45 AM EDT Office Visit Hematology/Oncology [facility] [address] [facility] [place] [phone] Benja Watkins MD [address] [facility] [place] [address] 12/24/2023 11:00 AM EDT Imaging Radiology [address] [address] 01/29/2024 8:20 AM EDT Office Visit [address] [phone] Baldev Solorio MD [address] [place] [address] 10/05/2024 12:30 PM EDT Telemedicine Care at Home [facility] [place] [address] Kori Dumont PA-C [address] [place] [address] Scheduled Procedures Name Priority Associated Diagnoses Date/Ti [...] this encounter Medical Devices Implanted Type Area Hematology Nurse Educator Device Identifier Shelf Expiration Date Model / Serial / Lot Cover [place] Hole 24mm 421.528 - [id number] Implanted:Qty: 1 on 08/20/2021 by Joni Hand III, MD at OR [facility] Right: Head SYNTHES MAXILLOFACIAL 421.528 / / Plate Y Ti Lo Db 6h 21 421.517 - [id number] Implanted:Qty: 1 on 08/20/2021 by Joni Hand III, MD at OR [facility] Right: Head SYNTHES MAXILLOFACIAL 421.517 / / Screw Ti Lo Pro Sd 4mm 400.834 - [id number] Implanted:Qty: 10 on 08/20/2021 by Joni Hand III, MD at OR [facility] Right: Head SYNTHES MAXILLOFACIAL 400.834 / / documented as of this encounter Visit Diagnoses Diagnosis Adjustment disorder with depressed mood- Primary Cerebral atrophy (HCC) Cerebral degeneration, unspecified Centrilobular emphysema (HCC) Other emphysema Left sided lacunar infarction (HCC) Unspecified cerebral artery occlusion with cerebral infarction Brain lesion Other conditions of brain 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 Chronic hyponatremia Hyposmolality and/or hyponatremia Chronic rhinitis Drug-induced hepatitis Hepatitis, unspecified Dyslipidemia Other and unspecified hyperlipidemia 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) Generalized nonconvulsive epilepsy without mention of intractable epilepsy HTN, goal below 130/80 Unspecified essential hypertension Hx of melanoma of skin Personal history of malignant melanoma of skin 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) Spinal stenosis of cervical region Spinal stenosis in cervical region Coronary artery disease involving twin hills coronary artery of twin hills heart without angina pectoris Pulmonary nodules Other nonspecific abnormal finding of lung field Left atrial enlargement Cardiomegaly Mild mitral regurgitation Mitral valve disorders Mild tricuspid regurgitation Diseases of tricuspid valve Mild pulmonary valve regurgitation documented in this encounter Advance Directives Latest [...] Directives occurred with: Not Discussed Care Teams Buffer Machine Relationship Specialty Start Date End Date Baldev Solorio MD [address] [place] [facility] [place] [address] PCP - General Family Medicine 02/20/21 documented as of this encounter
--- OUTSIDE RECORDS SUMMARY | 2024-02-27 02:29 | External Medical Summary | Summary of Care ---
Author Name Unknown Organization [facility] Address [address] [place] [address] Phone [phone] Care Team Providers Care Regulatory Affairs Director Name Role Phone Martin Solorio MD Primary Care Provider [phone] Encounter Details Date Type Department Care Team (Late st Contact Info) Description 09/23/2023 11:00 AM EST Scheduled Telephone Care Coordination and Integration [address] [place] [address] Kori Quezada, KEISHA [address], [place] [id number] Allergies Active Allergy Reactions Criticality Noted Date [...] PM EST Telemedicine visit: No [facility] Silk Brusher (SOREN) documentation: Outbound call to patient [facility] Left message for patient to call Rc Lopez At [phone] Kori Quezada [facility] Silk Brusher Call or Text- [phone] documented in this encounter Plan of Treatment Upcoming Encounters Date Type Department Care Team (Late st Contact Info) Description 10/03/2023 9:45 AM EDT Pharmacy Pharmacy Hematology Oncology [address] [address] [facility], [facility] Hem/Onc [facility] [place] [address] 12/09/2023 10:45 AM EDT Imaging Radiology [facility] 1st [facility] [address] [place] [address] 12/11/2023 7:45 AM EDT Office Visit Hematology/Oncology [facility] [address] [facility] [place] [phone] Benja Watkins MD [address] [facility] [place] [address] 01/29/2024 8:20 AM EDT Office Visit [facility] [address] [place] [address] Martin Solorio MD [address] [place] [address] Scheduled Procedures Name Priority Associated [...] this encounter Medical Devices Implanted Type Area Plastic Joint Maker Device Identifier Shelf Expiration Date Model / Serial / Lot Cover Nilda Hole 24mm 421.528 - [id number] Implanted:Qty: 1 on 08/20/2021 by Joni Hand III, MD at [place] [facility] Right: Head SYNTHES MAXILLOFACIAL 421.528 / / Plate Y Ti Lo Db 6h 21 421.517 - [id number] Implanted:Qty: 1 on 08/20/2021 by Joni Hand III, MD at OR [facility] Right: Head SYNTHES MAXILLOFACIAL 421.517 / / Screw Ti Lo Pro Sd 4mm 400.834 - [id number] Implanted:Qty: 10 on 08/20/2021 by Joni Hand III, MD at OR [facility] Right: Head SYNTHES [...] Directives occurred with: Not Discussed Care Teams Regulatory Affairs Director Relationship Specialty Start Date End Date Martin Solorio MD [address] [place] [facility] [place] [address] PCP - General Family Medicine 02/20/21 documented as of this encounter
--- OUTSIDE RECORDS SUMMARY | 2024-02-27 02:29 | External Medical Summary | Summary of Care ---
Author Name Unknown Organization [facility] Address [address] [place] [address] Phone [phone] Care Team Providers Care Entry Level Lab Technician Name Role Phone Martin Solorio MD Primary Care Provider [phone] Encounter Details Date Type Department Care Team (Late st Contact Info) Description 09/23/2023 11:00 AM EST Scheduled Telephone Care Coordination and Integration [address] [place] [address] Kori Quezada, KEISHA [address] [place], [place] [phone] Allergies Active Allergy Reactions Criticality Noted Date [...] PM EST Telemedicine visit: No [facility] Senior Internet Sales Consultant (SOREN) documentation: Outbound call to patient [facility] Left message for patient to call Rc Lopez At [phone] Kori Quezada [facility] Senior Internet Sales Consultant Call or Text- [phone] documented in this encounter Plan of Treatment Upcoming Encounters Date Type Department Care Team (Late st Contact Info) Description 10/03/2023 9:45 AM EDT Pharmacy Pharmacy Hematology Oncology [address] [address] [facility], [facility] Hem/[place] [address] 12/09/2023 10:45 AM EDT Imaging Radiology [facility]st [facility] [address] [place] [address] 12/11/2023 7:45 AM EDT Office Visit Hematology/Oncology [facility] [address] [facility] [place] [phone] Benja Watkins MD [address] [facility] [place] [address] 01/29/2024 8:20 AM EDT Office Visit [facility] [address] [place] [address] Martin Solorio MD [address] [place] [address] Scheduled Procedures Name Priority Associated [...] this encounter Medical Devices Implanted Type Area Vest Backer Device Identifier Shelf Expiration Date Model / Serial / Lot Cover Nilda Hole 24mm 421.528 - [id number] Implanted:Qty: 1 on 08/20/2021 by Joni Hand III, MD at [place] [facility] Right: Head SYNTHES MAXILLOFACIAL 421.528 / / Plate Y Ti Lo Db 6h 21 421.517 - [id number] Implanted:Qty: 1 on 08/20/2021 by Joni Hand III, MD at [place] [facility] Right: Head SYNTHES MAXILLOFACIAL 421.517 / / Screw Ti Lo Pro Sd 4mm 400.834 - [id number] Implanted:Qty: 10 on 08/20/2021 by Joni Hand III, MD at [place] [facility] Right: Head SYNTHES [...] Directives occurred with: Not Discussed Care Teams Entry Level Lab Technician Relationship Specialty Start Date End Date Martin Solorio MD [address] [place] [facility] [place] [address] PCP - General Family Medicine 02/20/21 documented as of this encounter
--- OUTSIDE RECORDS SUMMARY | 2024-02-27 02:29 | External Medical Summary | Summary of Care ---
Author Name Unknown Organization [facility] Address [address] [place] [address] Phone [phone] Care Team Providers Care Student Support Counselor Name Role Phone Martin Solorio MD Primary Care Provider [phone] Encounter Details Date Type Department Care Team (Late st Contact Info) Description 09/23/2023 11:00 AM EST Scheduled Telephone Care Coordination and Integration [address] [place] [address] Kori Quezada, KEISHA [address], [place] [phone] Allergies Active Allergy Reactions Criticality Noted Date [...] Notes * Kori Quezada OSA - 09/23/2023 4:19 PM EST Telemedicine visit: No [facility] Winder Tender (SOREN) documentation: [facility] #2 Outbound call per Rachel Soto Left message for patient to call Left Rachel Soto [phone] Kori Quezada [facility] Winder Tender Call or Text- [phone] * Kori Quezada OSA - 09/23/2023 1:44 PM EST Telemedicine visit: No [facility] Winder Tender (SOREN) documentation: Outbound call to patient [facility] Left message for patient to call Rc Lopez At [phone] Kori Quezada [facility] Health Winder Tender Call or Text- [phone] documented in this encounter Plan of Treatment Upcoming Encounters Date Type Department Care Team (Late st Contact Info) Description 10/03/2023 9:45 AM EDT Pharmacy Pharmacy Hematology Oncology [facility] [address] [place] [address] [facility] Hem/Onc [address] [place] [address] 12/09/2023 10:45 AM EDT Imaging Radiology [address] [facility] [place] [address] 12/11/2023 7:45 AM EDT Office Visit Hematology/Oncology [facility] [address] [facility] [place] [phone] Benja Watkins MD [address] [place] [address] 01/29/2024 8:20 AM EDT Office Visit [facility] [address] [place] [address] Martin Solorio MD [address] [place], [place] [id number] Scheduled Procedures Name Priority Associated Diagnoses Date/Ti [...] this encounter Medical Devices Implanted Type Area Asic Engineer Device Identifier Shelf Expiration Date Model / Serial / Lot Cover Nilda Hole 24mm 421.528 - [id number] Implanted:Qty: 1 on 08/20/2021 by Joni Hand III, MD at [place] [facility] Right: Head SYNTHES MAXILLOFACIAL 421.528 / / Plate Y Ti Lo Db 6h 21 421.517 - [id number] Implanted:Qty: 1 on 08/20/2021 by Joni Hand III, MD at OR [facility] Right: Head SYNTHES MAXILLOFACIAL 421.517 / / Screw Ti Lo Pro Sd 4mm 400.834 - [id number] Implanted:Qty: 10 on 08/20/2021 by Joni Hand III, MD at OR [facility] Right: Head SYNTHES MAXILLOFACIAL 400.834 / / [...] Directives occurred with: Not Discussed Care Teams Student Support Counselor Relationship Specialty Start Date End Date Martin Solorio MD [address] [place] [address] PCP - General Family Medicine 02/20/21 documented as of this encounter
--- OUTSIDE RECORDS SUMMARY | 2024-02-27 02:29 | External Medical Summary | Summary of Care ---
Author Name Unknown Organization [facility] Address [address] [place] [address] Phone [phone] Care Team Providers Care Card Room Manager Name Role Phone Martin Solorio MD Primary Care Provider [phone] Encounter Details Date Type Department Care Team (Late st Contact Info) Description 09/23/2023 11:00 AM EST Scheduled Telephone Care Coordination and Integration [address] [place] [address] Kori Quezada, KEISHA [address] [place], [place] [id number] Allergies Active Allergy Reactions Criticality Noted Date [...] PM EST Telemedicine visit: No [facility] Living Specialist (SOREN) documentation: [facility]2 Outbound call per Rachel Soto Left message for patient to call Left Rachel Soto [phone] Kori Quezada [facility] Living Specialist Call or Text- [phone] * Kori Quezada OSA - 09/23/2023 1:44 PM EST Telemedicine visit: No [facility] Living Specialist (SOREN) documentation: Outbound call to patient [facility] Left message for patient to call Rc Lopez At [phone] Kori Quezada [facility] Health Living Specialist Call or Text- [phone] documented in this encounter Plan of Treatment Upcoming Encounters Date Type Department Care Team (Late st Contact Info) Description 10/03/2023 9:45 AM EDT Pharmacy Pharmacy Hematology Oncology [facility] [address] [place] [address] [facility] Hem/Onc [address] [place] [address] 12/09/2023 10:45 AM EDT Imaging Radiology [address] [facility] [place] [address] 12/11/2023 7:45 AM EDT Office Visit Hematology/Oncology [facility] [address] [place] [phone] Benja Watkins MD [address] [place] [address] 01/29/2024 8:20 AM EDT Office Visit [facility] [address] [place] [address] Martin Solorio MD [address] [place], [place] [phone] Scheduled Procedures Name Priority Associated Diagnoses Date/Ti [...] this encounter Medical Devices Implanted Type Area Auto Technician Mechanic Device Identifier Shelf Expiration Date Model / Serial / Lot Cover Nilda Hole 24mm 421.528 - [id number] Implanted:Qty: 1 on 08/20/2021 by Joni Hand III, MD at [place] [facility] Right: Head SYNTHES MAXILLOFACIAL 421.528 / / Plate Y Ti Lo Db 6h 21 421.517 - [id number] Implanted:Qty: 1 on 08/20/2021 by Joni Hand III, MD at [place] [facility] Right: Head SYNTHES MAXILLOFACIAL 421.517 / / Screw Ti Lo Pro Sd 4mm 400.834 - [id number] Implanted:Qty: 10 on 08/20/2021 by Joni Hand III, MD at [place] [facility] Right: Head SYNTHES MAXILLOFACIAL [...] Directives occurred with: Not Discussed Care Teams Card Room Manager Relationship Specialty Start Date End Date Martin Solorio MD [address] [place] [address] PCP - General Family Medicine 02/20/21 documented as of this encounter
--- OUTSIDE RECORDS SUMMARY | 2024-02-27 02:30 | External Medical Summary | Summary of Care ---
Author Name Unknown Organization [facility] [address] [facility] [address] Phone [phone] Care Team Providers Care Metal Products Fabricator Assembler Name Role Phone Martin Solorio MD Primary Care Provider [phone] Encounter Details Date Type Department Care Team (Late st Contact Info) Description 09/09/2023 Population Health External Data Unspecified Department Allergies Active Allergy Reactions Criticality Noted Date Comments Erythromycin 08/15/1997 seizures documented as of this encounter (statuses as of 09/09/2023) Medications Medication Sig Dispensed Refills Start Date [...] OTHER MEDS 90 Tablet 0 12/24/2022 Active Ondansetron HCl 8 MG Oral Tablet (Zofran)Indication s: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 120 Capsule 5 08/28/2023 Active documented as of this encounter (statuses as of 09/09/2023) Active Problems Problem Noted Date Diagnosed Date [...] as of this encounter (statuses as of 09/09/2023) Resolved Problems Problem Noted Date Diagnosed Date [...] as of this encounter (statuses as of 09/09/2023) Immunizations Name Administration Dates Next Due COVID-19, [...] Date Recorded PHQ Adult Total Score 0 02/20/2021 Hunger Vital Sign Answer Date Recorded Within the past 12 months, y ou worried that your food would run out before you got the money to buy more. Never true 07/17/20 23 Within the past 12 months, t he food you bought just didn't last and you didn't have money to get more. Never true 07/17/2023 Sex and Gender Information Value Date Recorded [...] AM EDT Pharmacy Pharmacy Hematology Oncology [facility] [address] [place] [address] [facility] [place] [facility] Hem/Onc [address] [place] [address] 12/09/2023 10:45 AM EDT Imaging Radiology [address] [facility] [place] [address] 12/11/2023 7:45 AM EDT Office [facility] [address] [place] [phone] Benja Watkins MD [address] [place] [address] 01/29/2024 8:20 AM EDT Office Visit [place] [id number] [place] [facility] [place] [id number] Martin Solorio MD [address] [place] [address] Scheduled Procedures Name Priority Associated Diagnoses Date/Ti me COLONOSCOPY FLEXIBLE PROXIMA L DIAGNOSTIC Recall Family history of colon cancer Health Maintenance Due Date Last Done Comments HIV Screening 1973 Hepatitis C Screening 1976 Mammogram 02/06/2022 02/06/2021, 10/2019, 02/01/2020, Additional history exists Depression Screening 02/20/2022 02/20/2021 DXA Scan 2023 Pneumococcal Vaccine: 65+ Years (3 of 3 - PPSV23 or PCV20) 05/03/2023 03/08/2023, 04/22/2022, 04/08/2019, Additional history exists TSH 08/08/2024 08/08/2023, 0 11/2023, 06/26/2022, Additional history exists GFR 09/03/2024 09/03/2023, 07/21, 05/27/2023, Additional history exists COLONOSCOPY-EVERY 5 YRS AGES 18-100 06/05/2026 06/05/2021, [...] this encounter Medical Devices Implanted Type Area Salt Machine Operator Device Identifier Shelf Expiration Date Model / Serial / Lot Cover Nilda Hole 24mm 421.528 - [id number] Implanted:Qty: 1 on 08/20/2021 by Joni Hand III, MD at OR [facility] [place] Right: Head SYNTHES MAXILLOFACIAL 421.528 / / Plate Y Ti Lo Db 6h 21 421.517 - [id number] Implanted:Qty: 1 on 08/20/2021 by Joni Hand III, MD at OR [facility] Right: Head SY[employer]ES MAXILLOFACIAL 421.517 / / Screw Ti Lo Pro Sd 4mm 400.834 - [id number] Implanted:Qty: 10 on 08/20/2021 by Joni Hand III, MD at OR [facility] Right: Head [employer]ES MAXILLOF[employer]IAL 400.834 / / [...] Directives occurred with: Not Discussed Care Teams Metal Products Fabricator Assembler Relationship Specialty Start Date End Date Martin Solorio MD [address] [place] [address] PCP - General Family Medicine 02/20/21 documented as of this encounter
--- OUTSIDE RECORDS SUMMARY | 2024-02-27 02:30 | External Medical Summary | Summary of Care ---
Author Name Unknown Organization [facility] Address [address] [facility] [place] [address] Phone [phone] Care Team Providers Care Health Insurance Assessor Name Role Phone Martin Solorio MD Primary Care Provider Encounter Details Date Type Department Care Team (Late st Contact Info) Description 09/08/2023 Telephone Neurosurgery [place] [facility] [address] [facility] [place] [phone] Sarah Grissom PA-C [address] [facility] [place] [address] Allergies Active Allergy Reactions Criticality Noted Date [...] encounter Miscellaneous Notes * Telephone Encounter - Melva Blake PA-C - 09/09/2023 9:43 AM EST Patient can f/u at [facility]. José Luis Paul PA-C made aware and he will assist in setting up. * Telephone Encounter - Melva Blake PA-C - 09/09/2023 8:08 AM EST Will review with Dr Lawler, patient can likely f/u in [place] as she is Dr Hand patient and lives much closer to [place]. * Telephone Encounter - Sarah Grissom PA-C - 09/08/2023 12:19 PM EST S/p ALYSHA w/ Dr. Lawler today, needs f/u scheduled. documented in this encounter Plan of Treatment Upcoming Encounters Date Type Department Care Team (Late st Contact Info) Description 10/03/2023 9:45 AM EDT Pharmacy Pharmacy Hematology Oncology [facility] [address] [place] [address] [facility] Hem/Onc [address] [place] [address] 12/09/2023 10:45 AM EDT Imaging Radiology [address] [place] [address] 12/11/2023 7:45 AM EDT Office Visit Hematology/Oncology [facility] [address] [place] [phone] Benja Watkins MD [address] [place] [address] 01/29/2024 8:20 AM EDT Office Visit [facility] [address] [place] [phone] Martin Solorio MD [address] [place] [address] Scheduled Procedures Name Priority Associated Diagnoses Date/Ti me COLONOSCOPY FLEXIBLE PROXIMA L DIAGNOSTIC Recall Family history of colon cancer Health Maintenance Due Date Last Done Comments HIV Screening 1973 Hepatitis C Screening 1976 Mammogram 02/06/2022 02/06/2021, 0810/2019, 02/01/2020, Additional history exists Depression Screening 02/20/2022 [...] this encounter Medical Devices Implanted Type Area Belt Splicer Device Identifier Shelf Expiration Date Model / Serial / Lot Cover Mckinney Hole 24mm 421.528 - [id number] Implanted:Qty: 1 on 08/20/2021 by Joni Hand III, MD at [place] [facility] Right: Head [employer]ES MAXILLOF[employer]IAL 421.528 / / Plate Y Ti Lo Db 6h 21 421.517 - [id number] Implanted:Qty: 1 on 08/20/2021 by Joni Hand III, MD at OR [facility] Right: Head SY[employer]ES MAXILLOFACIAL 421.517 / / Screw Ti Lo Pro Sd 4mm 400.834 - [id number] Implanted:Qty: 10 on 08/20/2021 by Joni Hand III, MD at OR [facility] Right: Head SY[employer]ES MAXILLOFACIAL [...] Directives occurred with: Not Discussed Care Teams Health Insurance Assessor Relationship Specialty Start Date End Date Martin Solorio MD [address] [place] [facility] [place] [address] PCP - General Family Medicine 02/20/21 documented as of this encounter
--- OUTSIDE RECORDS SUMMARY | 2024-02-27 02:30 | External Medical Summary | Summary of Care ---
Author Name Unknown Organization [facility] Address [address] [facility] [place] [address] Phone [phone] Care Team Providers Care Associate Vice President Name Role Phone Martin Solorio MD Primary Care Provider [phone] Encounter Details Date Type Department Care Team (Late st Contact Info) Description 09/08/2023 Telephone Neurosurgery [place] [place] [address] [facility] [place] [phone] Sarah Grissom PA-C [address] [facility] [place] [address] Allergies Active Allergy Reactions Criticality Noted Date [...] Dr Lawler, patient can likely f/u in [place] as she is Dr Hand patient and lives much closer to [place]. * Telephone Encounter - Sarah Grissom PA-C - 09/08/2023 12:19 PM EST S/p ALYSHA w/ Dr. Lawler today, needs f/u scheduled. documented in this encounter Plan of Treatment Upcoming Encounters Date Type Department Care Team (Late st Contact Info) Description 10/03/2023 9:45 AM EDT Pharmacy Pharmacy Hematology Oncology [facility] [place] [address] [place] [address] [facility] [place] [facility] Hem/Onc [address] [facility] [place] [place] [address] 12/09/2023 10:45 AM EDT Imaging Radiology [address] 132 [facility] [place] [address] 12/11/2023 7:45 AM EDT Office Visit Hematology/Oncology [facility] [address] [place] [address] Benja Watkins MD [address] [facility] [place] [address] 01/29/2024 8:20 AM EDT Office Visit [facility] [address] [place] [phone] Martin Solorio MD [address] [place], [place] [phone] Scheduled Procedures Name Priority Associated Diagnoses Date/Ti [...] this encounter Medical Devices Implanted Type Area Counter Roller Device Identifier Shelf Expiration Date Model / Serial / Lot Cover Nilda Hole 24mm 421.528 - [id number] Implanted:Qty: 1 on 08/20/2021 by Joni Hand III, MD at [place] [facility] [place] Right: Head [employer]ES MAXILLOF[employer]IAL 421.528 / / Plate Y Ti Lo Db 6h 21 421.517 - [id number] Implanted:Qty: 1 on 08/20/2021 by Joni Hand III, MD at [place] [facility] [place] Right: Head [employer]ES MAXILLOFACIAL 421.517 / / Screw Ti Lo Pro Sd 4mm 400.834 - [id number] Implanted:Qty: 10 on 08/20/2021 by Joni Hand III, MD at [place] [facility] [place] Right: Head SYNTHES [...] occurred with: Not Discussed Care Teams Associate Vice President Relationship Specialty Start Date End Date Martin Solorio MD [address] [place] [address] PCP - General Family Medicine 02/20/21 documented as of this encounter
--- OUTSIDE RECORDS SUMMARY | 2024-02-27 02:30 | External Medical Summary | Summary of Care ---
Author Name Unknown Organization [facility] [address] [address] Phone [phone] Care Team Providers Care Barrel Filler Name Role Phone Martin Solorio MD Primary Care Provider [phone] Reason for Visit * Auth/Cert Specialty Diagnoses / Procedures Referred By Bere t Referred To Contact Diagnoses Brain tumor (HCC) Brain tumor (HCC) [D49.6] Procedures NERVOUS SYSTEM SURGERY NEC UNLISTED PROCEDURE NERVOUS SYSTEM Referral ID Status Reason Start Date Expiration Date Visits Re quested Visits Authorized [id number] Encounter Details Date Type Department Care Team (Latest Contact Info) Description 09/08/2023 5:02 AM EST - 09/08/2023 2:40 PM EST Hospital Encounter Periop Extend [facility], Perioperative Extended Care Unit, Critical Care Building Level 3 [address] [facility] [place] [address] Bereket Lawler MD [address] [facility] [place] [address] Discharge Disposition: Home - Self Care Allergies Active Allergy Reactions Criticality Noted Date Comments Erythromycin 08/15/1997 seizures documented as of this encounter (statuses as of 09/09/2023) Medications Medication Sig Dispensed Refills Start Date End Date Status MULTIVITAMINS PO TABS Take 1 Tablet by mouth every morning. 0 09/10/19 08 Active PARoxetine HCl 40 MG Oral Tablet (pAXil)Indication s:Adjustment disorder with depressed mood Take 1 Tablet by mouth every morning. In the morning. 90 Tablet 2 12/18/19 23 Active Levothyroxine Sodium 200 MCG Oral Tablet TAKE 1 TABLET BY MOUTH IN THE MORNING AT LEAST 30 MIN PRIOR TO BREAKFAST OR OTHER MEDS 90 Tablet 0 12/25/19 23 Active Ondansetron HCl 8 MG Oral Tablet (Zofran)Indicatio ns:Malignant melanoma of left lower extremity (HCC),Malignant 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) TAKE 1 TABLET BY MOUTH TWICE DAILY 30 MIN PRIOR TO ADMINISTRATION OF TAFINLAR 60 Tablet 4 04/09/20 23 Active Trametinib Dimethyl Sulfoxide 0.5 MG [...] evening. 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 120 Capsule 5 08/28/19 24 Active B Complex Oral Tablet Take by mouth 1 Tablet every morning . 0 024 Discontinued(Me dication List Clean Up) Potassium Chloride Brianna ER 10 MEQ Oral Tablet Extended ReleaseIndication s:Hypokalemia Take by mouth 1 Tablet in the morning. 14 Tablet 0 02/05/20 22 024 Discontinued(Me dication List Clean Up) Mupirocin 2 % External Ointment (Bactroban) Apply small amount of ointment to each nostril with a cotton swab twice daily starting today until surgey 22 g 0 09/04/19 24 024 Discontinued Chlorhexidine Gluconate 4 % External Liquid (Hibiclens) Apply as directed 120 mL 0 09/04/19 24 024 Discontinued documented as of this encounter [...] Sign Reading Time Taken Comments Blood Pressure 130/72 09/08/2023 2:23 PM EST Pulse 72 09/08/2023 2:23 PM EST Temperature 36.8 C (98.2 F) 09/08/2023 2:23 PM ES T Respiratory Rate 15 09/08/2023 2:23 PM EST Oxygen Saturation 97% 09/08/2023 2:23 PM EST Inhaled Oxygen Concentration - - Weight 68.6 kg (151 lb 4.8 oz) 09/08/2023 5:35 A M EST Height 154.9 cm (5' 1") 09/08/2023 5:35 AM EST Body Mass Index 28.59 09/08/2023 5:35 AM EST documented in this encounter Functional Status Functional [...] No 09/21/2021 documented as of this encounter Discharge Instructions * Discharge Instr - AVS* Sarah Grissom PA-C - 09/08/2023 11:08 AM EST DISCHARGE INSTRUCTIONS [facility]-[address] [place] [address] Patient Name: Judy Garcia Discharge Date: 09/08/2023 GENERAL INFORMATION: Date of Your Surgery: 09/08/2023 Your Surgeon's Name: Dr. Bereket Lawler MD Name of your Surgery: Biopsy of L frontal lesion with subsequent ALYSHA Your Diagnosis: Left frontal mass FOLLOW-UP APPOINTMENT: - Tumors: Please contact Melva Blake PA-C with any questions, - Post-Op Appointment 2 weeks after surgery for wound check - Post-op Appointment 4 weeks after surgery with your physician - It is also recommend to follow-up with your primary care physician within 2 weeks after surgery. - If you have any questions or concerns, please call our direct office number at [phone] or walk into clinic if it is Friday through Friday 8am-4pm. If it is after these hours (night or weekend), please call direct hospital line at [phone] and ask for Neurosurgery ammonia nitrate operator. Future Appointments Appt Date/Time Provider Department 12/09/2023 10:45 AM PET GW Radiology [facility] 12/11/2023 7:45 AM Benja Watkins MD Hematology/Oncology [facility] 01/29/2024 8:20 AM Martin Solorio MD [facility] WOUND CARE: - Your cranial incision is closed with dissolvable sutures underneath your skin and Dermbond (glue on the surface). - The Dermabond will begin to flake off in the next few weeks. - Additional wound care instructions are as follows: - Keep incision clean and dry. - May shower after 72 hours. - Pat incision dry afterwards - Do not submerge incision in water - No hot tubs, baths, or swimming for 4 weeks. ANGIO SITE: - Your groin site incision dressing may be removed 48 hours - Do not soak/sumbmerge in water for 48 hours - No heavy lifting x 48 hours after surgery - Please call if any bleeding or swelling at this site INCISION EXPECTATIONS: - Some incisional swelling, bruising, and discomfort are normal. Your incision may be sore for up to 4-6 weeks. - Apply ice for pain ACTIVITY GUIDELINES: - May walk and do stairs as tolerated. - Avoid deep bending forward - No excessive physical activity - No heavy lifting. Do not lift greater than 5-10 pounds (example: 1/2 gallon of milk) for 4 weeks.Further lifting instructions will be discussed at your first post-operative appointment. - You may resume sexual activity when comfortable. - It is recommended to be off narcotics prior to driving. - It is recommended to not drive until comfortable clearing blind spot - No driving until seen and cleared by neurosurgery. DIET: - May resume pre-operative diet MEDICATIONS: If you continue to require pain medications for more than 6 weeks, you may be referredto a automobile painter or your medical doctor for ongoing management of your pain medications. As signed in your narcotic agreement, we do not fill chronic pain medication required after 6 weeks from surgery QUESTIONS: - Please call our office if any questions or concerns [phone] - Please call our office or report to the emergency department if: - Fever greater than 102 F - Incision becomes red, swollen, hot, or any drainage is noted. - Any changes in neurological status - weakness, speech difficulties, off balance, visual changes, nausea, vomiting, severe headaches, etc. - Please call with any questions or concerns. Do not smoke or use tobacco products in any way! Review of patient's allergies indicates: Allergen Reactions Erythromycin seizures MEDICATION UPDATES AT DISCHARGE CONTINUE taking these medications INSTRUCTIONS atorvaSTATin 20 MG Tablet Commonly known as: Lipitor Take 1 Tablet by mouth every evening. carBAMazepine xr 200 MG Tb12 Commonly known as: Tegretol-Xr TAKE 2 TABLETS BY MOUTH IN THE MORNING AND 2 IN THE EVENING levothyroxine 200 MCG Tablet Commonly known as: Levoxyl TAKE 1 TABLET BY MOUTH IN THE MORNING AT LEAST 30 MIN PRIOR TO BREAKFAST OR OTHER MEDS losartan 50 MG Tablet Commonly known as: Cozaar Take 1 Tablet by mouth in the morning. Mekinist 0.5 MG Tabs Generic drug: Trametinib Dimethyl Sulfoxide Take 3 tablets (1.5mg) by mouth in the morning. multivitamin Tabs Take 1 Tablet by mouth every morning. ondansetron 8 MG Tablet Commonly known as: Zofran TAKE 1 TABLET BY MOUTH TWICE DAILY 30 MIN PRIOR TO ADMINISTRATION OF TAFINLAR PARoxetine 40 MG Tablet Commonly known as: pAXil Take 1 Tablet by mouth every morning. In the morning. Tafinlar 75 MG Caps Generic drug: Dabrafenib Mesylate Take 1 Capsule by mouth in the morning and 1 Capsule before bedtime. traZODone 100 MG Tablet Commonly known as: Desyrel TAKE 1 & 1/2 (ONE & ONE-HALF) TABLETS BY MOUTH AT BEDTIME STOP taking these medications chlorhexidine gluconate 4% 4 % external liquid Commonly known as: Hibiclens mupirocin calcium 2 % ointment Commonly known as: Bactroban Discharge Checklist: Patient has her prescriptions (if applicable). Patient was given medication instructions (if applicable). Patient's Personal Belongings: Patient's Home Medications: Written CHF instructions were given (if applicable). Acknowledgement: I have had these instructions explained to me, was given a copy and had a chance to ask questions. Patient Signature Date & Time: Nurse Signature Date & Time: If the patient is unable to sign: Responsible Adult Date & Time: Relationship to Patient * PLEASE TAKE THIS FORM TO YOUR NEXT VISIT WITH YOUR PRIMARY CARE PHYSICIAN. documented in this encounter H&P Notes * Bereket Lawler MD - 09/08/2023 7:03 AM EST Images from the original note were not included. Neurosurgery/Oncology History and Physical-08/28/2023 Providers: Neurosurgery Oncology: Dr. Lawler Neuro-Oncology: Dr. Shore Radiation Oncology: Dr. Lucio Oncology History Treatment Summary Treatment Summary Malignant melanoma of left lower extremity (HCC) 12/26/2017 Initial Diagnosis Malignant melanoma of left lower extremity (HCC) 01/26/2018 - 03/29/2019 Chemotherapy NIVOLUMAB 240 mg D 1,15 (6 Cycles/28 Days) [id number] 09/17/2021 - Chemotherapy DABRAFENIB (TAFINLAR) & TRAMETINIB (MEKINIST) [id number] Brain metastasis 08/17/2021 Initial Diagnosis Brain metastasis (HCC) 08/20/2021 Surgery R parietal resection by Dr. Hand 08/20/2021 Molecular Testing Results A. Right parietal tumor, resection: Metastatic malignant melanoma. Microscopic Findings A. Sections of the right parietal tumor reveal a solid mass of tumor with areas of necrosis and degenerative change. There is also extensive melanin pigment throughout the tumor in tumor cells cytoplasm and in histiocytes. There is a notable infiltrate of lymphocytes and plasma cells accompanying the tumor at its margin. The cells are large with atypical nuclei, frequent mitoses, and occasional cytoplasmic nuclear inclusions. BRAF Mutation Analysis Result: Mutation V600K/R/M detected in BRAF Codon 600. 09/11/2021 - 10/02/2021 Radiation S/p post-op RT to resection cavity at [facility] 07/18/2022 Progression IMPRESSION 1. New focus of enhancement and intrinsic T1 shortening measuring 5 mm in the left frontal lobe is likely reflective of a new focus of metastatic disease. 2. Mild contraction of the blood products in the left parietal resection cavity with persistent enhancement at the anterior margin of the cavity and mildly reduced surrounding T2 signal change. Again, this may reflect evolution of post treatment changes, although residual tumor could appear similar. 08/13/2022 - 08/19/2022 Radiation Currently: The patient is currently doing well overall. She denies new or worsening headache, seizures, sensory-motor issues, visual changes, N/V, speech/memory issues, or change in mentation. She notes some ongoing right sided weakness. She feels she leans to her right when walking so she utilizesa walker for ambulation. She has had SRS approx 1yr ago and now there is some increase in size of the lesion. It is unclear if this represents progression of disease or treatment related changes. Sheis seen to discuss treatment options. Exam: General: awake and alert, NAD Speech: clear and fluent, appropriate Head/Incision: well healed Cranial nerves: grossly intact Motor: moving extremities voluntarily Sensation: not assessed Gait: not assessed Cardiovascular - RRR Pulmonary - No dyspnea, unlabored breathing Imaging: - MRI brain perfusion w/wp PACS 08/22/23: IMPRESSION 1. Continued interval increase in size [...] parietal lobe compared with the prior MRI. Impression: - 63 year old female s/p SRS of left frontal metastasis with increased size of lesion. Plan: - Neurosurgery: Dr Lawler explained the procedure to her as well as the risks/benefits.alternatives. He explained that since she is asymptomatic and the lesion is so small we could either do the procedure now or wait 6-8 weeks and repeat the imaging and if further increase in size could do ALYSHA atthat time. Patient prefers to proceed with treatment sooner rather than waiting. We will contact her to arrange for pre-op H&P. - Neuro-Oncology: see note - Radiation Oncology: see note Melva Blake PA-C [facility] [address] [place] [address] The natural history of the disease, the risks and benefits of the procedure were explained to them in detail. The risks include but are not limited to infection, hematoma, CSF leak, stroke, neurological deficit - paralysis, sensory deficit, aphasia, visual field deficit, memory impairment, seizure,coma, and . They verbalized understanding. All questions answered. Consent signed for surgery.Surgery is scheduled for today. * Bereket Lawler MD - 09/08/2023 7:01 AM EST HISTORY & PHYSICAL INTERVAL NOTE [address] [place] [address] History and Physical Update: Name: Judy Garcia Location: [facility] Date: 09/08/2023 Time: 7:01 AM DATE OF HISTORY AND PHYSICAL: 08/28/23 BP: 133 mmHg/73 mmHg (09/08/23534) Pulse: 74 (09/08/23534) Temp: 36.67 C (09/08/23534) Temp Summary: Temp Min: 36.7 C (98 F) Max: 36.7 C (98 F) SpO2: 91 % (09/08/23534) O2 flow rate: 0 L/MIN (09/08/23534) Supplemental O2 Delivery: Room Air, None (09/08/23534) Heart Exam: regular rate and rhythm Lung Exam: clear to auscultation bilaterally Other Pertinent Physical Exam: none I have reviewed the H&P previously performed and examined the patient today. There are no new findings noted. Patient presents today for biopsy and ALYSHA for brain met. No changes in history and physical since the last office visit. Reviewed risks, benefits, goals, procedure, complications, postoperative expectations, medications, and restrictions. Site confirmed with patient and marked. All questions answered. Patient wishes to continue with procedure. documented in this encounter Nursing Notes * Derek Nunez RN - 09/08/2023 2:40 PM EST Post Anesthesia Care Unit II Discharge Note [facility] [place] [address] Judy Garcia Time: 2:48 PM Discharge Disposition: Home Responsible adult as escort home: Transport Mode: Wheelchair To: Car Belongings with patient: Yes Post-operative instructions given: Yes Patient meets criteria to be transferred or discharged. * Derek Nunez RN - 09/08/2023 11:43 AM EST DISCHARGE NOTE - Post Anesthesia Care Unit [facility] [place] [address] Name: Judy Garcia Location: PERIOP EXTEND GWV/20E Date: 09/08/2023 Time: 11:43 AM Date and Time Patient was Seen: 09/08/23 at 1143 BP 154/98 | Pulse 71 | Temp 36.4 C (97.5 F) (Tympanic) | Resp 14 | Ht 1.549 m (5' 1") | Wt 68.6kg (151 lb 4.8 oz) | SpO2 98% | BMI 28.59 kg/m | BSA 1.72 m Vital Signs Stable Patient seen by Omid Sparks MD Discharged from PACU as per discharge criteria (see discharge criteria sheet). Taken to PACU 20 extended accompanied by Derek Nunez RN and Customer Supply Chain Analyst. * Derek Nunez RN - 09/08/2023 11:05 AM EST POST ANESTHESIA CARE RECORD - PACU [facility] [place] [address] Name: Judy Garcia Location: OR [facility]V/OR Date: 09/08/2023 Time: 11:05 AM Date and Time Patient was Seen: 09/08/23 at 1048 Arrival Time: 1048 Surgeon: Bereket Lawler MD Surgery: Major Anesthesia type: General Patient received by PACU Nurse: Derek Nunez RN Via: Litter From Anesthesia: Anesthesiologist: Eleanor Martinez MD ELECTRICAL & INSTRUMENTATION SUPERVISOR: Saw Granda CRNA Identified by: Derek Nunez RN and Saw Granda CRNA Method of Identification: MR Number, Verbally, and Wrist Identification Band * Leonel Rodrigez RN - 09/08/2023 8:07 AM EST Surgeon used 2 identifiers prior to incision on this patient. documented in this encounter OR Notes * OR Surgeon - Bereket Lawler MD - 09/08/2023 2:40 PM EST SERVICE: Neurosurgery DATE: 09/08/23 PRE-OP DIAGNOSIS: Left temporal metastasis, edema, mass effect. Status post stereotactic radiosurgery POST-OP DIAGNOSIS: Same. SURGEON: Dr. Bereket Lawler. ASSISTANTS: Kayden Lopez MD ANESTHESIA: General endotracheal. OPERATION: Cranial stereotactic supporting bolt for laser interstitial therapy placement. Framelessstereotactic needle brain biopsy of lesion. Laser interstitial therapy for brain lesion. BrainLAB neuro navigation. MRI thermal brain navigation. FINDINGS: The specimen was slightly necrotic. The entire lesion could be terminal ablated ESTIMATED BLOOD LOSS: 5 mL DRAINS: None FLUIDS: 1300 mL URINE OUTPUT: 700 mL SPECIMEN: All specimen were sent to pathology COMPLICATIONS: None. CONDITION: Stable. ANTIBIOTIC: Ancef 2 gm IV Q3 hours. INDICATIONS AND HISTORY: 63 years old female known for metastatic melanoma presenting with recurrence versus radiation necrosis of a left frontal Insular lesion. A laser interstitial thermal therapy of the lesion and biopsy were offered to the patient. The natural history of the disease, the risks and benefits of the procedure were explained to her in detail. She verbalized understanding, all her questions were answered and she consented to surgery. DESCRIPTION OF OPERATION: On September 08 2023, having been properly identified and marked in the preoperative holding area, and the procedure verified, the patient was taken to the OR where he was put under general endotracheal anesthesia. After this was deemed adequate, she was given 2 gm of Ancefand positioned supine on the operating room table. The head was then put in neutral position and sustained by the Chavez three-point camp head counselor and turned toward the right side. The pre-op BrainLAB imaging was then correlated with the head in position. This was accomplished using fiducial markers throughout the vertex with a magic wand and through a digital camera. Adequate correlation was obta ined. An ideal trajectory leading to the larger axis of the lesion was then determined, and an entry point delineated. The Left frontal area was then prepped and draped in the usual sterile manner. Time-out was performed. Patient was identified, laterality of the procedure, and procedure were confirmed with the circulating nurse. The VarioGuide was then put in position and the ideal trajectory confirmed. A small incision allowing a twist drill to the surface of the vertex was applied. A transcortical, transdural, and intraparenchymal opening was performed. The supporting bolt of the laser probe was applied to the vertex and threaded to safety. A biopsy needle of the BrainLAB system was used, and one specimens were harvested from the lesion and brain interface as guided by the stereotacticframeless system. The specimen were sent for frozen and permanent pathological section. The VarioGuide was moved away and the laser support bolt corked, the surgical field was carefully removed, and double bagging of the bolt proper done to allow transportation to the MRI suite. The patient was then carried to the MRI suite where he was positioned in the gantry. The laser was connected to the holding bolt and motor arm aligned to the depth of the lesion proper in a sterile manner. The treatmentwas planned from the treatment platform and once confirmation was obtained of the trajectory and the depth of the laser probe, firing of the laser was performed with constant thermographic information collected from a GRE MRI-weighted sequence. The treatment was conveyed and the surface of the lesion proper was covered with thermal therapy. An MRI T1 sequence with gadolinium confirmed the extent of the thermal coagulation. No imaging complications were observed on the immediate post-op MRI. Thelaser probe was uncoupled with the holding bolt. The patient transferred to a carrier and brought to the holding area of the MRI suite, where the laser holding bolt was removed after the skin was carefully disinfected. Monocryl was used to reapproximate the centimeter incision, which was covered with Dermabond. Dry dressings were applied. The patient was then transported to the recovery room where he was revived from anesthesia, having tolerated the procedure well without complication. * Operative Report Brief - Kayden Lopez MD - 09/08/2023 10:33 AM EST [facility]-[address] [place] [address] OPERATIVE REPORT - BRIEF Name: Jduy Garcia Date: 09/08/2023 Time: 10:33 AM Location: [facility] Service: Neurosurgery Date of Operation: 09/08/2023 Pre-op Diagnosis: L frontal mass Post-op Diagnosis: same Operation: Biopsy of L frontal lesion with subsequent ALYSHA Surgeon: Bereket Lawler MD Assistants: Jessica WISDOM Anesthesia: General endotracheal anesthesia Drains: none Estimated Blood Loss: 5 ml. IV Fluids: 1,300 ml. Urine Output: 700 ml. Specimens/Disposition: L frontal lesion Apparent Intraoperative Complications: NONE Patient Condition: stable Disposition: Post Anesthesia Care Unit Attestation: Dr. Lawler was present and scrubbed for the critical parts of the procedure documented in this encounter Plan of Treatment Upcoming Encounters Date Type Department Care Team (Late st Contact Info) Description 10/03/2023 9:45 AM EDT Pharmacy Pharmacy Hematology Oncology [address] [address] [facility] [place], [facility] Hem/Onc [address] [place] [address] 12/09/2023 10:45 AM EDT Imaging Radiology [address] [address] 12/11/2023 7:45 AM EDT Office Visit Hematology/Oncology [facility] [address] [facility] [place], [place] [address] Benja Watkins MD [address] [place], [place] [address] 01/29/2024 8:20 AM EDT Office Visit [facility] [address] [place] [address] Martin Solorio MD [address], [place] [id number] Pending Results Name Type Priority Associated Diagnoses Date /Time SURGICAL PATHOLOGY Pathology Routine Brain tumor (HCC) 09/08/2023 9:13 AM EST Scheduled Orders Name Type Priority Associated Diagnoses Orde r Schedule SURGICAL PATHOLOGY Pathology Routine Brain tumor (HCC) Release Upon Ordering for 1 Occurrences starting 09/08/2023, 1 completed PLT Lab STAT Perform Now fo r 1 Occurrences starting 09/08/2023 until 09/08/2023 Scheduled Procedures Name Priority Associated Diagnoses Date/Ti [...] this encounter Medical Devices Implanted Type Area Icu Nurse Device Identifier Shelf Expiration Date Model / Serial / Lot Cover Bethel Hole 24mm 421.528 - [id number] Implanted:Qty: 1 on 08/20/2021 by Joni Hand III, MD at [place] [facility] Right: Head [employer] 421.528 / / Plate Y Ti Lo Db 6h 21 421.517 - [id number] Implanted:Qty: 1 on 08/20/2021 by Joni Hand III, MD at OR [facility] Right: Head [employer] 421.517 / / Screw Ti Lo Pro Sd 4mm 400.834 - [id number] Implanted:Qty: 10 on 08/20/2021 by Joni Hand III, MD at OR [facility] Right: Head [employer] 400.834 / / documented as of this encounter Procedures Procedure Name Priority Date/Time Associated Diagnosis Comments TYPE AND SCREEN Routine 09/08/2023 7:32 AM EST STAPH AUREUS PCR Routine 09/08/2023 7:25 AM EST SARS-COV-2 (COVID-19), NAAT STAT 09/08/2023 6:08 AM EST GLUCOSE METER, POINT OF CARE JOSE 09/08/2023 6:05 AM EST documented in this encounter Results * TYPE AND SCREEN (09/08/2023 7:32 AM EST) ABO A 09/08/2023 8:41 AM EST LABORATORY [facility] BLOOD BANK Rh Positive 09/08/2023 8:41 AM EST LABORATORY [facility] BLOOD B[facility] Red Blood Cell Antibody Screen Negative 09/08/2023 8:41 AM EST LABORATORY [facility] BLOOD B[facility] Specimen Expiration Date 09/11/2023 23:59 09/08/2023 8:41 AM EST LABORATORY [facility] BLOOD BANK Blood Venous blood specimen / Unknown Venipuncture / Unknown 09/08/2023 7:32 AM EST 09/08/2023 7:49 AM EST Kayden Lopez MD LAB BLOOD BANK TEST ORDERABLES LABORATORY [facility] BLOOD BANK [address] [place] [address] * STAPH AUREUS PCR (09/08/2023 7:25 AM EST) MRSA PCR Result Negative Negative 4 4:53 PM EST LABORATORY [facility] Comment:No Methicillin resis tant Staphylococcus aureus detected by PCR (amplified probe). MSSA PCR Result Negative Negative 4 4:53 PM EST LABORATORY [facility] Comment:No methicillin sensi tive Staphylococcus aureus detected by PCR (amplified probe). Upper Respiratory Swab of internal nose / Unknown Non-blood Collection / Unknown 09/08/2023 7:25 AM EST 09/08/2023 7:49 AM EST Kayden Lopez MD LAB MICRO - GENERAL ORDERABLES LABORATORY [facility] [address] [place] [address] * SARS-COV-2 (COVID-19), NAAT (09/08/2023 6:08 AM EST) SARS-CoV-2 (COVID-19) Result Negative Negative 09/08/2023 9:37 AM EST LABORATORY [facility] Comment: 2019 Novel Coronavirus not detected. This express test was developed and its performance characteristics determined by [facility]. It has not been cleared or approved by the U.S. Food and Drug Administration (FDA). FDA does not require this test to go thru premarket FDA review. This test is used for clinical purposes. It should not be regarded as investigational or for research. This laboratory is certified under the Clinical Laboratory Improvement Amendments (CLIA) as qualified to perform high complexity clinical laboratory testing. This test is a nucleic acid amplification test (NAAT), a reverse transcriptase polymerase chain reaction (RT-PCR) test, or a Centers for Disease Control- acceptable equivalent. The test is performed in a high complexity Clinical Laboratory Improvement Amendments-(CLIA) certified laboratory. The test is acceptable for SARS-CoV-2 diagnosis, surveillance, and travel within the [place] and to most countries. Please check with local testing authorities about requirements before travel. The validation of bronchial specimens, tracheal aspirates, and sputum for this assay was developed and performance characteristics determined by [facility]. The validation of alternate specimen types has not been cleared or approved by the U.S. Food and Drug Administration (FDA). It has been determined that such clearance is not necessary. Upper Respiratory Mid-turbinate nasal swab / Unknown Non-blood Collection / Unknown 09/08/2023 6:08 AM EST 09/08/2023 8:08 AM EST Bereket Lawler MD LAB MICRO - GENERAL ORDERABLES LABORATORY [facility] [address] [place] [address] * GLUCOSE METER, POINT OF CARE (09/08/2023 6:05 AM EST) Glucose Meter 100 70 - 120 mg/dL 09/08/2023 6:12 AM EST [facility] POCT (34-60) Blood Whole blood specimen / Unknown 09/08/2023 6:05 AM EST 09/08/2023 6:12 AM EST Bereket Lawler MD LAB POINT OF CARE TE ST DOCKED DEVICE UNSOLICITED RESULTS [place] POCT (49-32) [address] [place] [address] documented in this encounter Visit Diagnoses Diagnosis Brain mass Unspecified condition of brain Brain tumor (HCC) Neoplasm of unspecified nature of brain Brain lesion Other conditions of brain documented in this encounter Administered Medications Inactive Administered Medications - up to 3 most recent administrations Medication Order MAR Action Action Date Dose Rate Site Acetaminophen (Tylenol) tab 975 mg 975 mg, Oral, PREOP, First dose on Fri09/08/23 at 0745, Last dose on Fri09/08/23 at 0745, For 1 dose, Maximum 4 g acetaminophen/day. Avoid in patients with severe hepatic impairment or severe active liver disease. Administer 60 minutes prior to OR., Pre-Op Given 09/08/2023 7:25 AM EST 975 mg Acetaminophen (Tylenol) tab 975 mg 975 mg, Oral, Q6H, First dose on Fri09/08/23 at 1200, Last dose on Fri09/13/23 at 0600, For 5 days, Maximum 4 g acetaminophen/day. Avoid in patients with severe hepatic impairment or severe active liver disease. Use for 5 days. Given 09/08/2023 11:53 AM EST 975 mg ceFAZolin in dextrose (Ancef) ivpb 2 g 2 g, IV Piggyback, Q8HNOW, 2 doses, First dose on Fri09/08/23 at 1600, Last dose on Fri09/09/23 at 0000 Docusate Sodium (Colace) cap 100 mg 100 mg, Oral, BID (.AM/PM), First dose on Fri09/08/23 at 2100, Until Discontinued, For oral administration ONLY, if route of administration is other than oral and alternative product must be ordered. hEParin inj 5,000 Units 5,000 Units, Subcutaneous, Q8H, First dose on Fri09/09/23 at 0600, Until Discontinued labetalol (Trandate) inj 2.5 mg 2.5 mg, Intravenous, ONCE PRN Hypertension, keep less than 140/90, Starting on Fri09/08/23 at 1120, Until Fri09/08/23 at 1143, For 4 doses, PACU Given 09/08/2023 11:34 AM EST 2.5 mg ondansetron (Zofran) inj 4 mg 4 mg, IV Push, Q6H PRN Other, May use for nausea or vomiting if patient unable to take oral ondansetron, Starting on Fri09/08/23 at 1036, Until Fri09/08/23 at 1848 ondansetron ODT (Zofran) tab 4 mg 4 mg, On Tongue, Q6H PRN Nausea, Vomiting, Starting on Fri09/08/23 at 1036, Until Fri09/08/23 at 1848 Povidone-Iodine nasal swab 4 Swab 4 Swab, Nasal, PREOP, First dose on Fri09/08/23 at 0745, Last dose on Fri09/08/23 at 0745, For 1 dose, Tilt the bottle slightly, dip one swab into solution and stir vigorously for 10 seconds. Withdraw the swab slowly to avoid wiping solution off during removal. Insert swab comfortably into one nostril and rotate for 15 seconds, covering all surfaces. Then focus on the inside tip of nostril and rotate for an additional 15 seconds. Using a new swab, Repeat above steps in the other nostril (Swab 2). Repeat the application in both nostrils using a fresh swab each times (Swab 3 and 4)., Pre-Op Given 09/08/2023 7:45 AM EST 4 Swabs senna (Senokot) 2 Tablet 2 Tablet, Oral, Daily(AM), First dose on Fri09/08/23 at 1115, Until Discontinued, hold if patient have loose stool or frequent bowel movements Given 09/08/2023 11:53 AM EST 2 Tablets documented in this encounter Active and Recently Administered Medications Times are shown in EST. Scheduled Medication Order 09/06/2023 09/07/2023 09/08/2023 Acetaminophen (Tylenol) tab 975 mg (COMPLETED) 975 mg, Oral, PREOP, First dose on Fri09/08/23 at 0745, Last dose on Fri09/08/23 at 0745, For 1 dose, Maximum 4 g acetaminophen/day. Avoid in patients with severe hepatic impairment or severe active liver disease. Administer 60 minutes prior to OR., Pre-Op 0725 (Given - Provid er: Lola Samayoa RN) Acetaminophen (Tylenol) tab 975 mg 975 mg, Oral, Q6H, First dose on Fri09/08/23 at 1200, Last dose on Fri09/13/23 at 0600, For 5 days, Maximum 4 g acetaminophen/day. Avoid in patients with severe hepatic impairment or severe active liver disease. Use for 5 days. 1153 (Given - Provid er: Derek Nunez RN) atorvaSTATin (Lipitor) tab 20 mg 20 mg, Oral, DAILY(1900), First dose on Fri09/09/23 at 1900, Until Discontinued carBAMazepine ER (Carbatrol) cap 200 mg 200 mg, Oral, Q12H, First dose on Fri09/08/23 at 2100, Until Discontinued ceFAZolin in dextrose (Ancef) ivpb 2 g 2 g, IV Piggyback, PREOP, 1 dose, First dose on Fri09/08/23 at 0745, Administer 60 minutes prior to skin incision, Pre-Op 0745 (OR/Procedure - Provider: Derek Nunez RN) ceFAZolin in dextrose (Ancef) ivpb 2 g 2 g, IV Piggyback, Q8HNOW, 2 doses, First dose on Fri09/08/23 at 1600, Last dose on Fri09/09/23 at 0000 Docusate Sodium (Colace) cap 100 mg 100 mg, Oral, BID (.AM/PM), First dose on Fri09/08/23 at 2100, Until Discontinued, For oral administration ONLY, if route of administration is other than oral and alternative product must be ordered. hEParin inj 5,000 Units 5,000 Units, Subcutaneous, Q8H, First dose on Fri09/09/23 at 0600, Until Discontinued levothyroxine (Levoxyl) tab 200 mcg 200 mcg, Oral, [id number], First dose on Fri09/09/23 at 0630, Until Discontinued losartan (Cozaar) tab 50 mg 50 mg, Oral, Daily(AM), First dose on Fri09/09/23 at 0900, Until Discontinued PARoxetine (pAXil) tab 40 mg 40 mg, Oral, [id number], First dose on Fri09/09/23 at 0600, Until Discontinued Povidone-Iodine nasal swab 4 Swab (COMPLETED) 4 Swab, Nasal, PREOP, First dose on Fri09/08/23 at 0745, Last dose on Fri09/08/23 at 0745, For 1 dose, Tilt the bottle slightly, dip one swab into solution and stir vigorously for 10 seconds. Withdraw the swab slowly to avoid wiping solution off during removal. Insert swab comfortably into one nostril and rotate for 15 seconds, covering all surfaces. Then focus on the inside tip of nostril and rotate for an additional 15 seconds. Using a new swab, Repeat above steps in the other nostril (Swab 2). Repeat the application in both nostrils using a fresh swab each times (Swab 3 and 4)., Pre-Op 0745 (Given - Provid er: Lola Samayoa RN) senna (Senokot) 2 Tablet 2 Tablet, Oral, Daily(AM), First dose on Fri09/08/23 at 1115, Until Discontinued, hold if patient have loose stool or frequent bowel movements 1153 (Given - Provid er: Derek Nunez RN) traZODone (Desyrel) tab 150 mg 150 mg, Oral, QHS, First dose on Fri09/08/23 at 2200, Until Discontinued PRN Medication Order 09/06/2023 09/07/2023 09/08/2023 bacitracin zinc ointment (CANCELED) ONCE PRN INTRA PROCEDURE, Starting on Fri09/08/23 at 0658, Until Fri09/08/23 at 0924, Intra-Op 0658 (Given - Provid er: Bereket Lawler MD - Comment: Scott connors) labetalol (Trandate) inj 2.5 mg (CANCELED) 2.5 mg, Intravenous, ONCE PRN Hypertension, keep less than 140/90, Starting on Fri09/08/23 at 1120, Until Fri09/08/23 at 1143, For 4 doses, PACU 1134 (Given - Provid er: Derek Nunez RN) lidocaine-Epinephrine 1 %-1:[id number] inj (CANCELED) ONCE PRN INTRA PROCEDURE, Starting on Fri09/08/23 at 0855, Until Fri09/08/23 at 0924, Intra-Op 0855 (Given - Provid er: Bereket Lawler MD - Comment: op site) ondansetron (Zofran) inj 4 mg(Linked Group 1) 4 mg, IV Push, Q6H PRN Other, May use for nausea or vomiting if patient unable to take oral ondansetron, Starting on Fri09/08/23 at 1036, Until Fri09/08/23 at 1848 ondansetron ODT (Zofran) tab 4 mg(Linked Group 1) 4 mg, On Tongue, Q6H PRN Nausea, Vomiting, Starting on Fri09/08/23 at 1036, Until Fri09/08/23 at 1848 Linked Groups Order Group 1: ondansetron ODT (Zofran) tab 4 mgJump to med 4 mg, On Tongue, Q6H PRN Nausea, Vomiting, Starting on Fri09/08/23 at 1036, Until Fri09/08/23 at 1848 Or ondansetron (Zofran) inj 4 mgJump to med 4 mg, IV Push, Q6H PRN Other, May use for nausea or vomiting if patient unable to take oral ondansetron, Starting on Fri09/08/23 at 1036, Until Fri09/08/23 at 1848 documented in this encounter Advance Directives Latest [...] Directives occurred with: Not Discussed Care Teams Barrel Filler Relationship Specialty Start Date End Date Martin Solorio MD [address] [facility] [place] [address] PCP - General Family Medicine 02/20/21 documented as of this encounter
--- OUTSIDE RECORDS SUMMARY | 2024-02-27 02:30 | External Medical Summary | Summary of Care ---
Author Name Unknown Organization [facility] Address [address] [place] [address] Phone [phone] Care Team Providers Care Carbon Capture Power Plant Operator Name Role Phone Martin Solorio MD Primary Care Provider [phone] Reason for Visit * Reason Comments eRx-Medication Refill Encounter Details Date Type Department Care Team (Late st Contact Info) Description 09/18/2023 Refill Hematology/Oncology Archana Moreira [place] [address] [facility] [place] [address] Jessica [facility] [address] Malignant melanoma of left lower extremity (HCC); Malignant 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) Allergies Active Allergy Reactions Criticality Noted Date Comments Erythromycin 08/15/1997 seizures documented as of this encounter (statuses as of 09/19/2023) Medications Medication Sig Dispensed Refills Start Date End Date Status MULTIVITAMINS PO TABS Take 1 Tablet by mouth every morning. 0 8 Active PARoxetine HCl 40 MG Oral Tablet (pAXil)Indication s:Adjustment disorder with depressed mood Take 1 Tablet by mouth every morning. In the morning. 90 Tablet 2 3 Active Levothyroxine Sodium 200 MCG Oral Tablet [...] OF TAFINLAR 60 Tablet 0 4 Active Ondansetron HCl 8 MG Oral Tablet (Zofran)Indicatio ns:Malignant melanoma of left lower extremity (HCC),Malignant 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) TAKE 1 TABLET BY MOUTH TWICE DAILY 30 MIN PRIOR TO ADMINISTRATION OF TAFINLAR 60 Tablet 4 3 024 Discontinued documented as of this encounter (statuses as of 09/19/2023) Active Problems Problem Noted Date Diagnosed Date [...] as of this encounter (statuses as of 09/19/2023) Resolved Problems Problem Noted Date Diagnosed Date [...] as of this encounter (statuses as of 09/19/2023) Immunizations Name Administration Dates Next Due COVID-19, [...] Telephone Encounter - Sharon Sprague RN - 09/19/2023 9:08 AM ESTSigned Prescriptions: Disp Refills Ondansetron HCl 8 MG Oral Tablet (Zofran) 60 Tab*0 Sig: TAKE 1 TABLET BY MOUTH TWICE DAILY 30 MIN PRIOR TO ADMINISTRATION OF TAFINLARAuthorizing Provider: JESSICA WATKINS * Telephone Encounter - Jessica Watkins MD - 09/19/2023 8:54 AM EST E-prescribed Zofran. Jessica Watkins MD Hem/Onc * Telephone Encounter - Sharon Sprague RN - 09/19/2023 8:23 AM ESTPending Prescriptions: Disp Refills Ondansetron HCl 8 MG Oral Tablet 60 Tab*0 Sig: TAKE 1 TABLET BYMOUTH TWICE DAILY 30 MIN PRIOR TO ADMINISTRATION OF TAFINLAR documented in this encounter Plan of Treatment Upcoming Encounters Date Type Department Care Team (Late st Contact Info) Description 09/22/2023 1:00 PM EST Office Visit Neurosurgery, [address] [address] Joni Hand III, MD [address] [place] [address] 10/03/2023 9:45 AM EDT Pharmacy Pharmacy Hematology Oncology [facility], [place] [address] [place] [address] [facility], [facility] Hem/Onc [facility] [place] [address] 12/09/2023 10:45 AM EDT Imaging Radiology [address] [place] [address] 12/11/2023 7:45 AM EDT Office Visit Hematology/Oncology Archana [facility] [place] [address] [facility] [place] [phone] Jessica Watkins MD [address] [facility] [place] [address] 01/29/2024 8:20 AM EDT Office Visit [facility] [address] [place] [facility] [place] [phone] Martin Solorio MD [address] [place], [place] [phone] Scheduled Procedures Name Priority Associated Diagnoses Date/Ti [...] encounter Medical Devices Implanted Type Area Child Development Director Device Identifier Shelf Expiration Date Model / Serial / Lot Cover [place] Hole 24mm 421.528 - [id number] Implanted:Qty: 1 on 08/20/2021 by Joni Hand III, MD [place] [facility] Right: Head [employer] 421.528 / / Plate Y Ti Lo Db 6h 21 421.517 - [id number] Implanted:Qty: 1 on 08/20/2021 by Joni Hand III, MD at [place] [facility] Right: Head [employer] 421.517 / / Screw Ti Lo Pro Sd 4mm 400.834 - [id number] Implanted:Qty: 10 on 08/20/2021 by Joni Hand III, MD at [place] [facility] Right: Head [employer] 400.834 / / [...] Directives occurred with: Not Discussed Care Teams Carbon Capture Power Plant Operator Relationship Specialty Start Date End Date Martin Solorio MD [address] [facility] [place] [address] PCP - General Family Medicine 02/20/21 documented as of this encounter
--- OUTSIDE RECORDS SUMMARY | 2024-02-27 02:30 | External Medical Summary | Summary of Care ---
Author Name Unknown Organization [facility] Address [address] [facility] [address] Phone [phone] Care Team Providers Care Curriculum Manager Name Role Phone Martin Solorio MD Primary Care Provider Encounter Details Date Type Department Care Team (Latest Contact Info) Description 09/08/2023 6:22 AM EST - 09/08/2023 11:59 PM EST Hospital Encounter Radiology [facility], Holly Acosta [address] [facility] [place] [address] Arrived Discharge Disposition: Home - Self Care Allergies [...] 9:45 AM EDT Pharmacy Pharmacy Hematology Oncology [facility] [address] [place] [address] [facility], [facility] Hem/Onc [address] [place] [address] 12/09/2023 10:45 AM EDT Imaging Radiology [facility] [facility] [address] [facility] [place] [address] 12/11/2023 7:45 AM EDT Office Visit Hematology/Oncology [place] [address] [place] [place] [phone] Benja Watkins MD [address] [place] [address] 01/29/2024 8:20 AM EDT Office Visit Family Practice, [place] [address] [place] [address] Martin Solorio MD [address] [place] [address] Scheduled Procedures Name Priority Associated Diagnoses Date/Ti me COLONOSCOPY FLEXIBLE PROXIMA L DIAGNOSTIC Recall Family history of colon cancer Health Maintenance Due Date Last Done Comments HIV Screening 1973 Hepatitis C Screening 1976 Mammogram 02/06/2022 02/06/2021, 080 10/2019, 02/01/2020, Additional history exists Depression Screening [...] this encounter Medical Devices Implanted Type Area Change Management Director Device Identifier Shelf Expiration Date Model / Serial / Lot Cover [place] Hole 24mm 421.528 - [id number] Implanted:Qty: 1 on 08/20/2021 by Joni Hand III, [place] [facility] [place]: Head [employer] 421.528 / / Plate Y Ti Lo Db 6h 21 421.517 - [id number] Implanted:Qty: 1 on 08/20/2021 by Joni Hand III, MD [place] [facility] [place] Right: Head [employer] 421.517 / / Screw Ti Lo Pro Sd 4mm 400.834 - [id number] Implanted:Qty: 10 on 08/20/2021 by Joni Hand III, MD [place] [facility] [place] Right: Head [employer]ILL[employer] 400.834 / / documented as of this encounter Procedures Procedure Name Priority Date/Time Associated Diagnosis Comments MRI GUIDED US STEREOTACTIC ABLATION LESION, INTRACRANIAL Routine 09/08/2023 11:00 AM EST Metastasis to brain (HCC) documented in this encounter Results * MRI GUIDED US STEREOTACTIC ABLATION LESION, INTRACRANIAL (09/08/2023 11:00 AM EST) Narrative Scheduling, Silent - 09/08/2023 11:04 AM EST This procedure will not be read by a Radiologist. Please see operative note. Melva GRANT MRI-MRA documented in this encounter Visit Diagnoses Diagnosis Metastasis to brain (HCC) Secondary malignant neoplasm [...] Directives occurred with: Not Discussed Care Teams Curriculum Manager Relationship Specialty Start Date End Date Martin Solorio MD [address] [facility] [place] [address] PCP - General Family Medicine 02/20/21 documented as of this encounter
--- OUTSIDE RECORDS SUMMARY | 2024-02-27 02:30 | External Medical Summary | Summary of Care ---
Author Name Unknown Organization [facility] Address [address] [place] [address] Phone [phone] Care Team Providers Care Car Sales Associate Name Role Phone Martin Solorio MD Primary Care Provider [phone] Encounter Details Date Type Department Care Team (Late st Contact Info) Description 09/16/2023 11:15 AM EST Scheduled Telephone Care Coordination and Integration [address] [place] [address] Kori Quezada, KEISHA [address] [place], [place] [phone] Allergies Active Allergy Reactions Criticality Noted Date Comments Erythromycin 08/15/1997 seizures documented as of this encounter (statuses as of 09/16/2023) Medications Medication Sig Dispensed Refills Start Date [...] as of this encounter (statuses as of 09/16/2023) Active Problems Problem Noted Date Diagnosed Date [...] as of this encounter (statuses as of 09/16/2023) Resolved Problems Problem Noted Date Diagnosed Date [...] as of this encounter (statuses as of 09/16/2023) Immunizations Name Administration Dates Next Due COVID-19, [...] Progress Notes * Kori Quezada OSA - 09/16/2023 4:12 PM EST Telemedicine visit: No [facility] documentation: Outbound call to patient per Rachel Reynolds Rn Patient stated she is tired Scalp is itchy Denies fever, pain, no redness or oozing Ambulating with shana Quezada [facility] Call or Text- [phone] documented in this encounter Plan of Treatment Upcoming Encounters Date Type Department Care Team (Late st Contact Info) Description 09/22/2023 1:00 PM EST [facility] [address] [place] [address] Joni Hand III, MD [address] [place] [address] 10/03/2023 9:45 AM EDT Pharmacy Pharmacy Hematology Oncology [facility] [place] [address] [place] [address] [facility], [facility] Hem/Onc [address] [place] [address] 12/09/2023 10:45 AM EDT Imaging Radiology [facility] [facility] [address] [facility] [place] [address] 12/11/2023 7:45 AM EDT Office Visit Hematology/Oncology [facility] [address] [facility] [place] [phone] Benja Watkins MD [address] [facility] [place] [address] 01/29/2024 8:20 AM EDT [facility] [address] [place] [phone] Martin Solorio MD [address] [place], [place] [phone] Scheduled Procedures Name Priority Associated Diagnoses Date/Ti [...] this encounter Medical Devices Implanted Type Area Foreign Language Interpreter Device Identifier Shelf Expiration Date Model / Serial / Lot Cover [place] Hole 24mm 421.528 - [id number] Implanted:Qty: 1 on 08/20/2021 by Joni Hand III, MD at [place] [facility] Right: Head [employer]ES [employer]ILL[employer] 421.528 / / Plate Y Ti Lo Db 6h 21 421.517 - [id number] Implanted:Qty: 1 on 08/20/2021 by Joni Hand III, MD at OR [facility] Right: Head [employer]ES MAXILL[employer]ACIAL 421.517 / / Screw Ti Lo Pro Sd 4mm 400.834 - [id number] Implanted:Qty: 10 on 08/20/2021 by Joni Hand III, MD at OR [facility] Right: Head [employer]ES MAXILLOFACIAL 400.834 [...] Directives occurred with: Not Discussed Care Teams Car Sales Associate Relationship Specialty Start Date End Date Martin Solorio MD [address] [place] [address] PCP - General Family Medicine 02/20/21 documented as of this encounter
--- OUTSIDE RECORDS SUMMARY | 2024-02-27 02:30 | External Medical Summary | Summary of Care ---
Author Name Unknown Organization [facility] Address [address] [place] [address] Phone [phone] Care Team Providers Care Blending Tank Helper Name Role Phone Martin Solorio MD Primary Care Provider [phone] Encounter Details Date Type Department Care Team (Late st Contact Info) Description 09/16/2023 11:15 AM EST Scheduled Telephone Care Coordination and Integration [address] [place] [address] Kori Quezada, KEISHA [address] [place], [place] [phone] Allergies Active Allergy Reactions Criticality Noted Date [...] PM EST Telemedicine visit: No [facility] ([facility]) documentation: Outbound call to patient per Rachel Reynolds Rn Patient stated she is tired Scalp is itchy Denies fever, pain, no redness or oozing Ambulating with shana Quezada [facility] Call or Text- [phone] documented in this encounter Plan of Treatment Upcoming Encounters Date Type Department Care Team (Late st Contact Info) Description 09/22/2023 1:00 PM EST Office Visit [facility] [address] [place] [address] Joni Hand III, MD [address] [place] [address] 10/03/2023 9:45 AM EDT Pharmacy Pharmacy Hematology Oncology [facility] [place] [address] [place] [address] [facility], [facility] Hem/Onc [address] [place] [address] 12/09/2023 10:45 AM EDT Imaging Radiology [facility] 1st [facility] [address] [facility] [place] [address] 12/11/2023 7:45 AM EDT Office Visit Hematology/Oncology [facility] [address] [facility] [place] [phone] Benja Watkins MD [address] [facility] [place] [address] 01/29/2024 8:20 AM EDT Office Visit [facility] [address] [place] [phone] Martin Solorio MD [address] [place], [place] [phone] Scheduled Procedures Name Priority Associated Diagnoses Date/Ti [...] this encounter Medical Devices Implanted Type Area Freelance Data Entry Device Identifier Shelf Expiration Date Model / Serial / Lot Cover Withee Hole 24mm 421.528 - [id number] Implanted:Qty: 1 on 08/20/2021 by Joni Hand III, MD at [place] [facility] Right: Head SYNTHES MAXILLOFACIAL 421.528 / / Plate Y Ti Lo Db 6h 21 421.517 - [id number] Implanted:Qty: 1 on 08/20/2021 by Joni Hand III, MD at [place] [facility] Right: Head SYNTHES MAXILLOFACIAL 421.517 / / Screw Ti Lo Pro Sd 4mm 400.834 - [id number] Implanted:Qty: 10 on 08/20/2021 by Joni Hand III, MD at [place] [facility] Right: Head SYNTHES MAXILLOFACIAL 400.834 [...] Directives occurred with: Not Discussed Care Teams Blending Tank Helper Relationship Specialty Start Date End Date Martin Solorio MD [address] [place] [address] PCP - General Family Medicine 02/20/21 documented as of this encounter
--- OUTSIDE RECORDS SUMMARY | 2024-02-27 02:30 | External Medical Summary | Summary of Care ---
Author Name Unknown Organization [facility] Address [address] [facility] [place] [address] Phone [phone] Care Team Providers Care Fabricator Assembler Metal Products Name Role Phone Martin Solorio MD Primary Care Provider [phone] Encounter Details Date Type Department Care Team (Late st Contact Info) Description 09/08/2023 Telephone Neurosurgery Ulises MARTINEZ [address] [facility] [place] [phone] Sarah Grissom PA-C [address] [facility] [place] [address] Allergies Active Allergy Reactions Criticality Noted Date [...] AM EST Patient can f/u at [facility]. José Luis Paul PA-C made aware and he will assist in setting up. * Telephone Encounter - Melva Blake PA-C - 09/09/2023 8:08 AM EST Will review with Dr Lawler, patient can likely f/u in [place] as she is Dr Hand patient and lives much closer to [place]. * Telephone Encounter - Sarah Grissom PA-C - 09/08/2023 12:19 PM EST S/p ALYSHA w/ Dr. Lawler today, needs f/u scheduled. documented in this encounter Plan of Treatment Upcoming Encounters Date Type Department Care Team (Late st Contact Info) Description 10/03/2023 9:45 AM EDT Pharmacy Pharmacy Hematology Oncology [facility] [address] [place] [address] [facility], [facility] Hem/Onc [address] [place] [address] 12/09/2023 10:45 AM EDT Imaging Radiology [address] [place] [address] 12/11/2023 7:45 AM EDT Office Visit Hematology/Oncology [facility] [address] [place] [address] Benja Watkins MD [address] [place] [address] 01/29/2024 8:20 AM EDT Office Visit [facility] [address] [place] [phone] Martin Solorio MD [address] [place] [address] Scheduled Procedures Name Priority Associated Diagnoses Date/Ti [...] this encounter Medical Devices Implanted Type Area Forecast Analyst Device Identifier Shelf Expiration Date Model / Serial / Lot Cover Larned Hole 24mm 421.528 - [id number] Implanted:Qty: 1 on 08/20/2021 by Joni Hand III, MD at [place] [facility] Right: Head SYNTHES MAXILLOFACIAL 421.528 / / Plate Y Ti Lo Db 6h 21 421.517 - [id number] Implanted:Qty: 1 on 08/20/2021 by Joni Hand III, MD at [place] [facility] Right: Head SYNTHES MAXILLOFACIAL 421.517 / / Screw Ti Lo Pro Sd 4mm 400.834 - [id number] Implanted:Qty: 10 on 08/20/2021 by Joni Hand III, MD at [place] [facility] Right: Head SYNTHES MAXILLOFACIAL [...] Directives occurred with: Not Discussed Care Teams Fabricator Assembler Metal Products Relationship Specialty Start Date End Date Martin Solorio MD [address] [place] [facility] [place] [address] PCP - General Family Medicine 02/20/21 documented as of this encounter
--- OUTSIDE RECORDS SUMMARY | 2024-02-27 02:30 | External Medical Summary | Summary of Care ---
Author Name Unknown Organization [facility] Address [address] [facility] [place] [address] Phone [phone] Care Team Providers Care Wire Cutter Name Role Phone Martin Solorio MD Primary Care Provider [phone] Reason for Visit * (Within 10 days (routine)) - Authorized Specialty Diagnoses / Procedures Referred By Bere t Referred To Contact Radiology Diagnoses Metastasis to brain (HCC) Procedures MRI NEURO 3-D RECONSTRUCTION Melva Blake PA-C [address] [facility] [place] [address] Referral ID Status Reason Start Date Expiration Date V isits Requested Visits Authorized [id number] Authorized 09/08/2023 999 999 Encounter Details Date Type Department Care Team (Latest Contact Info) Description 09/09/2023 2:05 PM EST - 09/09/2023 11:59 PM EST Hospital Encounter Radiology Holly ALONZO [address] [facility] [place] [address] Arrived Discharge Disposition: Home - Self Care Allergies Active Allergy Reactions Criticality Noted Date Comments Erythromycin 08/15/1997 seizures documented as of this encounter (statuses as of 09/10/2023) Medications Medication Sig Dispensed Refills Start Date [...] as of this encounter (statuses as of 09/10/2023) Active Problems Problem Noted Date Diagnosed Date [...] as of this encounter (statuses as of 09/10/2023) Resolved Problems Problem Noted Date Diagnosed Date [...] as of this encounter (statuses as of 09/10/2023) Immunizations Name Administration Dates Next Due COVID-19, [...] 09/22/2023 1:00 PM EST Office Visit Neurosurgery, [place] [address] [place] [address] Joni Hand III, MD [address] [facility] [place] [address] 10/03/2023 9:45 AM EDT Pharmacy Pharmacy Hematology Oncology [facility] [place] [address] [address] [facility] [address] [facility] Hem/Onc [address] [place], [place] [address] 12/09/2023 10:45 AM EDT Imaging Radiology [facility] 1st [facility] [address] [place] [address] 12/11/2023 7:45 AM EDT Office Visit Hematology/Oncology [facility] [address] [facility] [place] [phone] Benja Watkins MD [address] [facility] [place] [address] 01/29/2024 8:20 AM EDT Office Visit [facility] [address] [place] [phone] Martin Solorio MD [address] [place], [place] [phone] Pending Results Name Type Priority Associated Diagnoses Date/Time MRI NEURO 3-D RECONSTRUCTION Medical Imaging Routine Metastasis to brain (HCC) 09/09/2023 2:08 PM EST Scheduled Procedures Name Priority Associated Diagnoses Date/Ti [...] this encounter Medical Devices Implanted Type Area Die Maintenance Device Identifier Shelf Expiration Date Model / Serial / Lot Cover Nilda Hole 24mm 421.528 - [id number] Implanted:Qty: 1 on 08/20/2021 by Joni Hand III, MD at [place] [facility] Right: Head SYNTHES MAXILLOFACIAL 421.528 / / Plate Y Ti Lo Db 6h 21 421.517 - [id number] Implanted:Qty: 1 on 08/20/2021 by Joni Hand III, MD at OR [facility] Right: Head SYNTHES MAXILLOFACIAL 421.517 / / Screw Ti Lo Pro Sd 4mm 400.834 - [id number] Implanted:Qty: 10 on 08/20/2021 by Joni Hand III, MD at [place] [facility] Right: Head SYNTHES MAXILLOFACIAL 400.834 / [...] Directives occurred with: Not Discussed Care Teams Wire Cutter Relationship Specialty Start Date End Date Martin Solorio MD [address] [place] [address] PCP - General Family Medicine 02/20/21 documented as of this encounter
--- OUTSIDE RECORDS SUMMARY | 2024-02-27 02:30 | External Medical Summary | Summary of Care ---
Author Name Unknown Organization [facility] Address [address] [facility] [address] Phone [phone] Care Team Providers Care Motor Polarizer Name Role Phone Martin Solorio MD Primary Care Provider [phone] Reason for Referral * Precert (Within 10 days (routine)) - Pending Review Specialty Diagnoses / Procedures Referred By Osmanyac t Referred To Contact Radiology Diagnoses Metastasis to brain (HCC) Procedures MR GUIDED LOCALIZATION BRAIN Melva Blake PA-C [address] [place] [address] Referral ID Status Reason Start Date Expiration Date V isits Requested Visits Authorized [id number] Pending Review 09/08/2023 999 999 Reason for Visit * Precert (Within 10 days (routine)) - Pending Review Specialty Diagnoses / Procedures Referred By Bere rivera Referred To Contact Radiology Diagnoses Metastasis to brain (HCC) Procedures MR GUIDED LOCALIZATION BRAIN Melva Blake PA-C [address] [place] [address] Referral ID Status Reason Start Date Expiration Date V isits Requested Visits Authorized [id number] Pending Review 09/08/2023 999 999 Encounter Details Date Type Department Care Team (Latest Contact Info) Description 09/08/2023 6:21 AM EST Hospital Encounter Radiology Holly ALONZO [address] [place] [address] Arrived Discharge Disposition: Home - Self Care [...] OTHER MEDS 90 Tablet 0 3 Active Ondansetron HCl 8 MG Oral Tablet (Zofran)Indicatio ns:Malignant melanoma of left lower extremity (HCC),Malignant 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) TAKE 1 TABLET BY MOUTH TWICE DAILY 30 MIN PRIOR TO ADMINISTRATION OF TAFINLAR 60 Tablet 4 3 Active Trametinib Dimethyl Sulfoxide 0.5 MG [...] before bedtime. 120 Capsule 5 4 Active Mupirocin 2 % External Ointment (Bactroban) Apply small amount of ointment to each nostril with a cotton swab twice daily starting today until surgey 22 g 0 4 024 Discontinued Chlorhexidine Gluconate 4 % External Liquid (Hibiclens) Apply as directed 120 mL 0 4 024 Discontinued Hospital, Clinic, or Other Facility Administered Medication Ordered Dose Route Frequency Start Date End Date Status sodium chloride 0.9 % flush/inj 10 mL 10 mL IV PUSH ONCE 09/08/2023 09/08/2023 Discont inued documented as of this encounter (statuses as [...] [facility] [address] [place] [address] Gm, [facility] Hem/Onc [facility] [place] [place] [address] 12/09/2023 10:45 AM EDT Imaging Radiology [address] [place] [address] 12/11/2023 7:45 AM EDT Office Visit Hematology/Oncology [facility] 200 [facility] [place] [address] Benja Watkins MD [address] [facility] [place] [address] 01/29/2024 8:20 AM EDT Office Visit [facility] [address] [place] [phone] Martin Solorio MD [address] [place], [place] [phone] Scheduled Procedures Name Priority Associated Diagnoses Date/Ti me COLONOSCOPY FLEXIBLE PROXIMA L DIAGNOSTIC Recall Family history of colon cancer Health Maintenance Due Date Last Done Comments HIV Screening 1973 Hepatitis C Screening 1976 Mammogram 02/06/2022 02/06/2021, 08/0 10/2019, 02/01/2020, Additional history exists Depression Screening [...] this encounter Medical Devices Implanted Type Area Food Services Director Device Identifier Shelf Expiration Date Model / Serial / Lot Cover Nilda Hole 24mm 421.528 - [id number] Implanted:Qty: 1 on 08/20/2021 by Join Hand III, MD at OR [facility] Right: Head SYNTHES MAXILLOFACIAL 421.528 / / Plate Y Ti Lo Db 6h 21 421.517 - [id number] Implanted:Qty: 1 on 08/20/2021 by Joni Hand III, MD at OR [facility] Right: Head SYNTHES MAXILLOFACIAL 421.517 / / Screw Ti Lo Pro Sd 4mm 400.834 - [id number] Implanted:Qty: 10 on 08/20/2021 by Joni Hand III, MD at OR [facility] Right: Head SYNTHES MAXILLOFACIAL 400.834 / / documented as of this encounter Procedures Procedure Name Priority Date/Time Associated Diagnosis Comments MR GUIDED LOCALIZATION BRAIN Routine 09/08/2023 8:02 AM EST Metastasis to brain (HCC) documented in this encounter Results * MR GUIDED LOCALIZATION BRAIN (09/08/2023 8:02 AM EST) Anatomical Region Laterality Modality Head, Neuro Magnetic Resonan ce 09/08/2023 12:2 4 PM EST Narrative 09/08/2023 12:22 PM EST EXAM: PREOPERATIVE MR GUIDED LOCALIZATION BRAIN HISTORY: MRI per brainlab protocol with fiducials AM of OR include DTI melanoma COMPARISON: MRI of 08/22/2023 TECHNIQUE: Fiducial markers are placed. Axial thin T2 weighted images and axial 3D SPGR postcontrast images are obtained and reconstructed in sagittal and coronal plane FINDINGS: There is an enhancing lesion in the deep white matter of the left frontal lobe with surrounding edema. Encephalomalacia gliosis underlying the right parietal craniotomy. There is also patchy enhancement in the medial high right parietal lobe also seen on prior study. IMPRESSION: Redemonstration of an enhancing lesion in the left frontal lobe Moderate to severe canal narrowing at C2-C3 also mentioned on prior study. Consider MRI C-spine Additional findings as above Procedure Note Joni Torres MD - 09/08/2023 EXAM: PREOPERATIVE MR GUIDED LOCALIZATION BRAIN HISTORY: MRI per brainlab protocol with fiducials AM of OR include DTI melanoma COMPARISON: MRI of 08/22/2023 TECHNIQUE: Fiducial markers are placed. Axial thin T2 weighted images and axial 3DSPGR postcontrast images are obtained and reconstructed in sagittal andcoronal plane FINDINGS: There is an enhancing lesion in the deep white matter of the left frontallobe with surrounding edema. Encephalomalacia gliosis underlying theright parietal craniotomy. There is also patchy enhancement in the medialhigh right parietal lobe also seen on prior study. 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 documented in this encounter Administered Medications Inactive Administered Medications - up to 3 most recent administrations Medication Order MAR Action Action Date Dose Rate Site gadobutrol (Gadavist) inj 6.9 mL 6.9 mL (rounded from 6.86 mL = 0.1 mL/kg 68.6 kg), Intravenous, ONCE, On Fri09/08/23 at 0805, For 1 dose, Radiology Medication Routing (Non-IR) Given 09/08/2023 8:05 AM EST 8 mL sodium chloride 0.9 % flush/inj 10 mL 10 mL, IV Push, ONCE, On Fri09/08/23 at 0805, For 1 dose, Do not flush if lock, PICC, or central line not in place; IV infusing or unable to flush., Radiology Medication Routing (Non-IR) Given 09/08/2023 8:05 AM EST 10 mL documented in this encounter Advance Directives Latest [...] Directives occurred with: Not Discussed Care Teams Motor Polarizer Relationship Specialty Start Date End Date Martin Solorio MD [address] [facility] [place] [address] PCP - General Family Medicine 02/20/21 documented as of this encounter
--- OUTSIDE RECORDS SUMMARY | 2024-02-27 02:31 | External Medical Summary ---
Author Name Unknown Address Unknown Organization [id number]:[facility] [place] [address] Laboratory Report Ordering Provider Test Date Status DILLAN LOPEZ 09/03/2023 10:49:49 Final Observation Date Value Abnormality Reference (Units ) Status BUN 09/03/2023 10:49:49 10 6-20 (mg/dL) Final Creatinine 09/03/2023 10:49:49 0.8 0.5-1.0 (mg/dL) Final Glomerular filtration rate/1.73 sq M.predicted [Volume Rate/Area] in Serum, Plasma or Blood by Creatinine-based formula (CKD-EPI) 09/03/2023 10:49:49 79 >=60 (mL/min) Final eGFR is calculated based on the CKD-EPI 2020 equation SODIUM 09/03/2023 10:49:49 132 Below low normal 135 -146 (mmol/L) Final Potassium 09/03/2023 10:49:49 4.7 3.5-5.1 (m mol/L) Final Cl 09/03/2023 10:49:49 96 Below low normal 98- 107 (mmol/L) Final CO2 09/03/2023 10:49:49 29 22-32 (mmo l/L) Final Anion gap 09/03/2023 10:49:49 7 7-15 (mmol /L) Final Glucose 09/03/2023 10:49:49 98 70-120 (mg /dL) Final Albumin 09/03/2023 10:49:49 3.8 3.8-5.0 (g /dL) Final AST (Aspartate aminotransferase) 09/03/2023 10:49:49 43 Above high normal 10-35 (U/L) Final Alk Phos 09/03/2023 10:49:49 121 35-130 (U/ L) Final Bilirubin, Total 09/03/2023 10:49:49 0.2 <=1 .2 (mg/dL) Final Calcium 09/03/2023 10:49:49 9.7 8.4-10.2 ( mg/dL) Final Protein 09/03/2023 10:49:49 7.5 6.0-8.3 (g /dL) Final ALT (Alanine aminotransferase) 09/03/2023 10:49:49 19 10-35 (U/L) Adryan guerrero Performing Location [facility] [address] [place] [address]
--- OUTSIDE RECORDS SUMMARY | 2024-02-27 02:31 | External Medical Summary ---
Author Name Unknown Address Unknown Organization K2I:[facility] LOOD BANK - [address] [place] [address] Dr. Ulises [place]S [address] Laboratory Report Ordering Provider Test Date Status ELSI KIMBALL 09/08/2023 07:32:00 Final Observation Date Value Abnormality Reference (Units ) Status ABO 09/08/2023 07:32:00 A Final RH 09/08/2023 07:32:00 Positive Final RED BLOOD CELL ANTIBODY SCREEN 09/08/2023 07:32:00 Negative Final SPECIMEN EXPIRATION DATE 09/08/2023 07:32:00 09/11/2023 23:59 Final Performing Location [facility] BLOOD [facility] - [address] Ulises [place]S [address]
--- OUTSIDE RECORDS SUMMARY | 2024-02-27 02:31 | External Medical Summary ---
Author Name Unknown Address Unknown Organization [id number]:[facility] [place] [address] Laboratory Report Ordering Provider Test Date Status DILLAN LOPEZ 09/03/2023 10:49:49 Final Observation Date Value Abnormality Reference (Units ) Status SYNC LEUKOCYTES IN BLOOD BY AUTOMATED COUNT 09/03/2023 10:49:49 5.78 4.00-10.80 (K/uL) Final Segs 09/03/2023 10:49:49 57.6 40.0-75.0 (%) Final Lymphs % 09/03/2023 10:49:49 24.7 18.0-42.0 (%) Final Monos 09/03/2023 10:49:49 13.0 Above high normal 1.0-11.0 (%) Final Eosinophils 09/03/2023 10:49:49 4.0 0.0-6.0 (%) Final Basos 09/03/2023 10:49:49 0.7 0.0-2.0 (%) Final Absolute Segs 09/03/2023 10:49:49 3.33 1.80-7.70 (K/uL) Final Lymphs, absolute 09/03/2023 10:49:49 1.43 1.00-4.80 (K/ul) Final Monos, Abs 09/03/2023 10:49:49 0.75 0.00-1.10 (K/uL) Final Eos, Abs 09/03/2023 10:49:49 0.23 0.00-0.70 (K/uL) Final Basos, Abs 09/03/2023 10:49:49 0.04 0.00-0.20 (K/uL) Final Performing Location [facility] [place] [address]
--- OUTSIDE RECORDS SUMMARY | 2024-02-27 02:31 | External Medical Summary | Summary of Care ---
Author Name Unknown Organization [facility] Address [address] [place] [address] Phone [phone] Care Team Providers Care Assistant Director Of Financial Aid Name Role Phone Martin Solorio MD Primary Care Provider Reason for Visit * Reason Onset Date Comments Update 08/27/2023 Other 08/27/2023 Encounter Details Date Type Department Care Team (Late st Contact Info) Description 08/27/2023 Telephone [facility] [address] [place] [address] Joni Hand III, MD [address] [place] [address] Update; Other Allergies Active Allergy Reactions Criticality Noted Date Comments Erythromycin 08/15/1997 seizures documented as of this encounter (statuses as of 09/04/2023) Medications Medication Sig Dispensed Refills Start Date End Date Status MULTIVITAMINS PO TABS Take 1 Tablet by mouth every morning. 0 8 Active B Complex Oral Tablet Take by mouth 1 Tablet every morning . 0 Active Potassium Chloride Brianna ER 10 MEQ Oral Tablet Extended ReleaseIndications :Hypokalemia Take by mouth 1 Tablet in the morning. 14 Tablet 0 2 Active Additional Information Patient not taking.Reported on 05/30/2023 PARoxetine HCl 40 MG Oral Tablet (pAXil)Indications [...] Active Dabrafenib Mesylate 75 MG Oral Capsule (Tafinlar)Indicati ons:Malignant melanoma of left lower extremity (HCC) Take 1 Capsule by mouth in the morning and 1 Capsule before bedtime. 60 Capsule 5 3 08/28/19 24 Discontinu ed(Refill) documented as of this encounter (statuses as of 09/04/2023) Active Problems Problem Noted Date Diagnosed Date Brain metastasis 08/21/2021 Intracranial hemorrhage 08/18/2021 Hx [...] as of this encounter (statuses as of 09/04/2023) Resolved Problems Problem Noted Date Diagnosed Date [...] as of this encounter (statuses as of 09/04/2023) Immunizations Name Administration Dates Next Due COVID-19, [...] encounter Miscellaneous Notes * Addendum Note - Marianne Pierre PA-C - 09/04/2023 1:53 PM ESTAddended by: MARIANNE PIERRE on: 09/04/2023 01:53 PM Modules accepted: Orders * Telephone Encounter - Marianne Pierre PA-C - 09/04/2023 12:47 PM EST Returned call to patient to see if she can do 09/08/23 for ALYSHA. Had to leave a message on home and cell number. Will await call back. * Telephone Encounter - Marianne Pierre PA-C - 09/02/2023 8:48 AM EST Can you give her a call and let her know that Dr Lawler and I are going through his calendar to find a date and I will contact her as soon as I have a date * Telephone Encounter - Marianne Pierre PA-C - 09/02/2023 7:59 AM EST [place]- do we have a date for the ALYSHA procedure? * Telephone Encounter - Fozia Mayer OSA - 09/01/2023 9:46 AM EST Who is calling: Judy Garcia "Ida" Pt is established with: Home Lawler Reason for call: Pt requesting return call from Marianne. How long issue has been going on: Additional details: Call back number: [phone] Pharmacy (if applicable): * Telephone Encounter - Joni Hand III, MD - 08/27/2023 8:42 AM EST I called Ida via her mobile and communicated to her the tumor board recommendation of ALYSHA for the L frontal growing lesion. She is desirous of pursuing this. I will reach out to Marianne Batista to set up with Dr. Lawler. All questions were answered. Joni Hand III, MD, PHD 08/27/2023 8:45 AM documented in this encounter Plan of Treatment Upcoming Encounters Date Type Department Care Team (Late st Contact Info) Description 09/05/2023 2:15 PM EST Office Visit Hematology/Oncology [facility] [place] [address] [facility] [place], [place] [address] Benja Watkins MD [address] [facility] [place], [place] [address] 09/08/2023 Hospital Encounter [facility] Operating [facility], Critical Care Building Level 3 [address] [facility] [place] [address] Bereket Lawler MD [address] [facility] [place] [address] 10/03/2023 9:45 AM EDT Pharmacy Pharmacy Hematology Oncology [facility] [address] [place] [address] [facility] Hem/Onc [address] [place] [address] 01/29/2024 8:20 AM EDT Office Visit [facility] [address] [place] [address] Martin Solorio MD [address] [place] [address] Scheduled Orders Name Type Priority Associated Diagnoses Order Schedule MR GUIDED LOCALIZATION BRAIN Medical Imaging Routine Metastasis to brain (HCC) Expected: 09/08/2023, Expires: 10/02/2024 MRI NEURO 3-D RECONSTRUCTION Medical Imaging Routine Metastasis to brain (HCC) Expected: 09/08/2023, Expires: 10/02/2024 MRI GUIDED US STEREOTACTIC ABLATION LESION, INTRACRANIAL Medical Imaging Routine Metastasis to brain (HCC) Expected: 09/08/2023, Expires: 10/02/2024 Scheduled Procedures Name Priority Associated Diagnoses Date/Ti me UNLISTED PROCEDURE NERVOUS SYSTEM Brain tumor (HCC) COLONOSCOPY FLEXIBLE PROXIMA L DIAGNOSTIC Recall Family history of colon cancer Health Maintenance Due Date Last Done Comments HIV Screening 1973 Hepatitis C Screening 1976 Mammogram 02/06/2022 02/06/2021, 0 10/2019, 02/01/2020, Additional history exists Depression Screening 02/20/2022 02/20/2021 DXA Scan 2023 Pneumococcal Vaccine: 65+ Years (3 - PPSV23 or PCV20) 03/08/2024 03/08/2023, 04/22/2022, 04/08/2019, Additional history exists TSH 08/08/2024 08/08/2023, 0 11/2023, 06/26/2022, Additional history exists GFR 09/03/2024 09/03/2023, 07/21, 05/27/2023, Additional history exists COLONOSCOPY-EVERY 5 YRS AGES 18-100 06/05/2026 06/05/2021, 06/05/2021, 08/10/2010, Additional history exists Albumin/Creatinine Ratio 07/25/2026 07/25/2023 Diabetes Screening 09/03/2026 09/03/2023, 0 08/08/2023, 05/27/2023, Additional history exists Lipid Panel 08/08/2028 08/08/2023, [...] this encounter Medical Devices Implanted Type Area Seafood Specialist Device Identifier Shelf Expiration Date Model / Serial / Lot Screw Ti Lo Pro Sd 4mm 400.834 - [id number] Implanted:Qty: 10 on 08/20/2021 by Joni Hand III, MD at [facility] Right: Head [employer] MAXILLOF[employer] 400.834 / / documented as of this encounter Visit Diagnoses Diagnosis Metastasis to brain (HCC)- Primary Secondary malignant neoplasm of brain and spinal cord documented in this encounter Advance Directives Latest Code Status on File Code Status Date Activated Date Inactivated Comments Full Code 09/21/2021 6:15 PM 09/23/2021 5:59 PM This or fabiola reflects the patients wishes and were consensually agreed upon. Question Answer Comments Discussion of Advance Directives occurred with: Patient Code Status History Code Status Date Activated Date Inactivated Comments Full Code 08/17/2021 10:44 PM 08/21/2021 6:24 PM This order reflects the patients wishes and were consensually agreed upon. Full Code 12/26/2017 10:25 AM 12/26/2017 7:57 PM This o rder reflects the patients wishes and were consensually agreed upon. Question Answer Comments Discussion of Advance Directives occurred with: Not Discussed Care Teams Assistant Director Of Financial Aid Relationship Specialty Start Date End Date Martin Solorio MD [address] [place] [facility] [place] [address] PCP - General Family Medicine 02/20/21 documented as of this encounter
--- OUTSIDE RECORDS SUMMARY | 2024-02-27 02:31 | External Medical Summary | Summary of Care ---
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) Procedures PET CT SKULL BASE TO MID-THIGH FDG Benja Watkins MD [address] [place] [address] Referral ID Status Reason Start Date Expiration Date V isits Requested Visits Authorized [id number] Pending Review 09/05/2023 999 999 Reason for Visit * Reason Comments Follow Up Encounter Details Date Type Department Care Team (Late st Contact Info) Description 09/05/2023 2:15 PM EST Office Visit Hematology/Oncology [facility] [address] [place] [phone] Benja Watkins MD [address] [place] [address] Malignant melanoma of left lower extremity (HCC)*; Malignant 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); 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 0 09/05/19 24 Discontinu ed(Medicat ion List Clean Up) Potassium Chloride Brianna ER 10 MEQ Oral Tablet Extended ReleaseIndications :Hypokalemia Take by mouth 1 Tablet in the morning. 14 Tablet 0 2 09/05/19 24 Discontinu ed(Medicat ion List Clean Up) documented as of this encounter (statuses as of 09/05/2023) Active Problems Problem Noted Date Diagnosed Date [...] as of this encounter (statuses as of 09/05/2023) Resolved Problems Problem Noted Date Diagnosed Date [...] as of this encounter (statuses as of 09/05/2023) Immunizations Name Administration Dates Next Due COVID-19, [...] Sign Reading Time Taken Comments Blood Pressure 125/81 09/05/2023 1:54 PM EST Pulse 84 09/05/2023 1:54 PM EST Temperature - - Respiratory Rate 16 09/05/2023 1:54 PM EST Oxygen Saturation 94% 09/05/2023 1:54 PM EST Inhaled Oxygen Concentration - - Weight 68.5 kg (151 lb 1.6 oz) 09/05/2023 1:54 P M EST Height - - Body Mass Index 28.55 07/31/2023 8:33 AM EST documented in this encounter Functional [...] Progress Notes * Benja Watkins MD - 09/05/2023 2:15 PM EST Hematology/Oncology Outpatient Clinic note [address] [place], [place] [address] Name: Judy Garcia Date: 01/31/2022 CHIEF COMPLAINT: [...] radiation treatment to the brain lesion at [facility] in mid- September 2021. CURRENT TREATMENT: Dabrafenib [...] was on in December 2021. As of 09/05/2023- she is on dabrafenib at 75 mg [...] any ETOH abuse. She was seen at [facility] ER on 04/20/2019 for nausea, vomiting, [...] the follow-up, she came to clinic by herself, ambulating with the help of the walker. She says that she is feeling well, ambulating with the help of the walker and sometimes with a caneat home , no nausea, no vomiting, no fever, previously noted weakness has improved, no new seizure.No increasing leg edema, stable weight around 151 lb. Presently she is on dabrafenib at [...] performed by Saw Arevalo MD at OR [facility] CHEMOTHERAPY for skin cancer from 2017 COLONOSCOPY, DIAGNOSTIC (RECTUM) 08/10/2010 diverticula COLONOSCOPY, DIAGNOSTIC (RECTUM) 06/05/2021 internal hemorrhoids/recall 5 years/COLONOSCOPY FLEXIBLE PROXIMAL DIAGNOSTIC performed by Sharon Vázquez MD at ENDOSCOPY [facility] [address] CYSTOSCOPY 10/2005 Dr. Bone INFORMATION Left 11/14/2017 Skin lesion excised from left lower leg, in-office performed by Dr. Kelton [place] 11/14/2017 LAPAROSCOPY, CHOLECYSTECTOMY WITH CHOLANGIOGRAPHY 01/25/2004 Laparoscopic cholecystectomy with cholangiogram at [facility] with Dr. Julian REMOVAL OF TONSILS, AGE 12+ 2003 REMOVE SUPRATENTORIAL BRAIN TUMOR Right 08/20/2021 CRANIOTOMY BONE FLAP EXCISION BRAIN TUMOR SUPRATENTORIAL performed by Joni Hand III, MD at OR [facility] RMV MALG LSN TRK/ARM/LG 1.1-2C Left 12/26/2017 EXCISION MALIGNANT TRUNK ARM LEG 1.1 TO 2CM performed by Saw Arevalo MD at OR [facility] TOTAL ABD HYSTERECTOMY W/WO REMOVAL OF [...] 1 Tablet by mouth every morning. 0 B Complex Oral Tablet Take by mouth 1 Tablet every morning . (Patient not taking: Reported on 05/30/2023) Potassium Chloride Brianna ER 10 MEQ Oral Tablet Extended Release Take by mouth 1 Tablet in the morning. (Patient not taking: Reported on 05/30/2023) 14 Tablet 0 PARoxetine HCl 40 MG Oral Tablet (pAXil) Take 1 Tablet by mouth every morning. In the morning. 90 Tablet 2 Levothyroxine Sodium 200 MCG Oral Tablet TAKE 1 TABLET BY MOUTH IN THE MORNING AT LEAST 30 MIN PRIOR TO BREAKFAST OR OTHER MEDS 90 Tablet 0 Ondansetron HCl 8 MG Oral Tablet (Zofran) TAKE 1 TABLET BY MOUTH TWICE DAILY 30 MIN PRIOR TO ADMINISTRATION OF TAFINLAR 60 Tablet 4 Trametinib Dimethyl Sulfoxide 0.5 MG Oral Tablet [...] 1 Capsule before bedtime. 120 Capsule 5 No current facility-administered medications for this visit. OBJECTIVE: There were no vitals taken for this visit.BP 125/81 (BP Site: Left Arm, BP Position: Sitting, BP Cuff Size: Large) | Pulse 84 | Resp 16 | Wt 68.5 kg (151 lb 1.6 oz) | SpO2 94% | BMI 28.55 kg/m | BSA 1.72 m PHYSICAL EXAM: ECOG: Performance Status 1-2 General [...] with walker LABS: Blood workup done on 09/03/2023: -WBC 5700, H&H of 13.2/39.9, Platelet count of 255360 -BUN/Creat: 10/0.8, normal LFT, Calcium 9.7. Brain MRI ( 03/08/2022) Slightly increased right [...] right frontoparietal craniotomy for tumor resection. No focalareas of increased radiotracer activity in the head. [...] no evidence of progression noted anywhere else. Will continue dabrafenib 75 mg twice a day and trametinib 1.5 g once a day. Recently she would follow-up brain MRI, left frontal lobe lesion has increased from 5 mm to 9 mm, she has remained asymptomatic. She is going for neurosurgical intervention early next week. I am planning for follow-up PET-CT scan about 3 months and then will see her back in the clinic. Dr. Benja Watkins Hem/Onc (This note was completed using the dictation program Fluency Direct. As such, there may be misspellings word substitutions, or other variations that should not change the essence of the clinical content of this encounter note. If there is need for further clarification, please direct questions to the provider listed above.) documented in this encounter Nursing Notes * Christine David LPN - 09/05/2023 1:56 PM EST Patient identifed by name and birthdate Do you have any concerns about pain management for today's visit? No Living Will or Advance Directive for Health Care as noted on the problem list. [facility] is a way you can talk to your provider on line through e-mail. Would you like to sign up? I can activate it for you? ALREADY ACTIVE Filed Vitals: 09/05/23 1354 BP: 125/81 Pulse: 84 Resp: 16 SpO2: 94% Weight: 68.5 kg (151 lb 1.6 oz) Patient was instructed to not get up [...] Upcoming Encounters Date Type Department Care Team (Latest Contact Info) Description 09/08/2023 6:30 AM EST Appointment Radiology Holly ALONZO [address] [place] [address] 09/08/2023 7:30 AM EST Hospital Encounter [facility], Operating Room [facility], Critical Care Building Level 3 [address] [place] [address] Bereket Lawler MD [address] [place] [address] 09/08/2023 7:30 AM EST - 09/08/2023 9:35 AM EST Surgery OR [facility], Operating Room [facility], Critical Care Building Level 3 [address] [place] [address] Bereket Lawler MD [address] [place] [address] UNLISTED PROCEDURE NERVOUS SYSTEM 09/08/2023 11:00 AM EST Appointment Radiology Holly ALONZO [address] [place] [address] 10/03/2023 9:45 AM EDT Pharmacy Pharmacy Hematology Oncology [facility] [address] [place] [address] Gm, [facility] Hem/Onc [address] [place] [address] 12/11/2023 7:45 AM EDT Office Visit H[facility]olog [facility] [address] [facility] [place] [address] Benja Watkins MD [address] [place] [address] 01/29/2024 8:20 AM EDT Office Visit [facility] [address] [place] [id number] Martin Solorio MD [address] [place], [place] [id number] Scheduled Orders Name Type Priority Associated Diagnoses Orde r Schedule PET CT SKULL BASE TO MID-THIGH FDG Medical Imaging Routine Malignant melanoma of left lower extremity (HCC) Malignant 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) 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) Ordered: 09/05/2023 Scheduled Procedures Name Priority Associated Diagnoses Date/Ti me UNLISTED PROCEDURE NERVOUS SYSTEM Brain tumor (HCC) 09/08/2023 7:30 AM EST COLONOSCOPY FLEXIBLE PROXIMAL DIAGNOSTIC Recall Family history of colon cancer Health Maintenance Due Date Last Done Comments HIV Screening 1973 Hepatitis C Screening 1976 Mammogram 02/06/2022 02/06/2021, 08/10/2019, 02/01/2020, Additional history exists Depression Screening 02/20/2022 [...] this encounter Medical Devices Implanted Type Area Optimization Engineer Device Identifier Shelf Expiration Date Model / Serial / Lot Cover [place] 24mm 421.528 - [id number] Implanted:Qty: 1 on 08/20/2021 by Joni Hand III, MD at [facility] Right: Head [employer] MAXILLOFAC[employer] 421.528 / / Plate Y Ti Lo Db 6h 21 421.517 - [id number] Implanted:Qty: 1 on 08/20/2021 by Joni Hand III, MD at [facility] Right: Head [employer] MAXILLOFACIAL 421.517 / / Screw Ti Lo Pro Sd 4mm 400.834 - [id number] Implanted:Qty: 10 on 08/20/2021 by Joni Hand III, MD at OR [facility] Right: Head [employer]ES MAXILLOFACIAL 400.834 / / documented as of this encounter Visit Diagnoses Diagnosis Malignant melanoma of left lower extremity (HCC)- Primary 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
--- OUTSIDE RECORDS SUMMARY | 2024-02-27 02:31 | External Medical Summary ---
Author Name Unknown Address Unknown Organization [id number]:[facility] - [facility] [address] [place] [address] Laboratory Report Ordering Provider Test Date Status ELSI KIMBALL 09/08/2023 07:25:13 Final Observation Date Value Abnormality Reference (Units ) Status Staphylococcus aureus methicillin resistance SCCmec [Presence] in Nose by LAMONTE with probe detection 09/08/2023 07:25:13 Negative Negative Final No Methicillin resistant Sta phylococcus aureus detected by PCR (amplified probe). Methicillin susceptible Stap hylococcus aureus DNA [Presence] in Specimen by LAMONTE with probe detection 09/08/2023 07:25:13 Negative Negative Final No methicillin sensitive Sta phylococcus aureus detected by PCR (amplified probe). Performing Location [facility] [address] [facility] [address] [facility] [address]
--- OUTSIDE RECORDS SUMMARY | 2024-02-27 02:31 | External Medical Summary | Summary of Care ---
Author Name Unknown Organization [facility] Address [address] [place] [facility] [place] [address] Phone [phone] Care Team Providers Care Arc And Gas Welder Name Role Phone Mratin Solorio MD Primary Care Provider [phone] Reason for Visit * Reason Onset Date Comments Appointment 09/08/2023 Encounter Details Date Type Department Care Team (Late st Contact Info) Description 09/08/2023 Telephone Hematology/Oncology Archana Moreira [place] 200 [facility] [place] [address] [facility]ja Watkins [facility] [address] Appointment Allergies Active Allergy Reactions Criticality Noted Date Comments Erythromycin 08/15/1997 seizures documented as of this encounter (statuses as of 09/08/2023) Medications Medication Sig Dispensed Refills Start Date End Date Status MULTIVITAMINS PO TABS Take 1 Tablet by mouth every morning. 0 8 Suspended PARoxetine HCl 40 MG Oral Tablet (pAXil)Indications :Adjustment disorder with depressed mood Take 1 Tablet by mouth every morning. In the morning. 90 Tablet 2 3 Suspended Additional Information Levothyroxine Sodium 200 MCG Oral Tablet TAKE 1 TABLET BY MOUTH IN THE MORNING AT LEAST 30 MIN PRIOR TO BREAKFAST OR OTHER MEDS 90 Tablet 0 3 Suspended Additional Information Ondansetron HCl 8 MG Oral Tablet (Zofran)Indication s:Malignant melanoma of left lower extremity (HCC),Malignant 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) TAKE 1 TABLET BY MOUTH TWICE DAILY 30 MIN PRIOR TO ADMINISTRATION OF TAFINLAR 60 Tablet 4 3 Suspended Additional Information Trametinib Dimethyl Sulfoxide 0.5 MG Oral Tablet (Mekinist)Indicati ons:Malignant melanoma of left lower extremity (HCC) Take 3 tablets (1.5mg) by mouth in the morning. 90 Tablet 5 3 Suspended Additional Information traZODone HCl 100 MG Oral Tablet (Desyrel)Indicatio ns:Insomnia, unspecified type TAKE 1 & 1/2 (ONE & ONE-HALF) TABLETS BY MOUTH AT BEDTIME 45 Tablet 5 3 Suspended Additional Information Losartan Potassium 50 MG Oral Tablet (Cozaar)Indication s:HTN, goal below 130/80 Take 1 Tablet by mouth in the morning. 90 Tablet 3 4 Suspended Additional Information Atorvastatin Calcium 20 MG Oral Tablet (Lipitor)Indicatio ns:Dyslipidemia Take 1 Tablet by mouth every evening. 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 120 Capsule 5 4 Suspended Additional Information Mupirocin 2 % External Ointment (Bactroban) Apply small amount of ointment to each nostril with a cotton swab twice daily starting today until surgey 22 g 0 4 Suspended Additional Information Chlorhexidine Gluconate 4 % External Liquid (Hibiclens) Apply as directed 120 mL 0 4 Suspended Additional Information Patient not taking.Reported on 09/05/2023 documented as of this encounter (statuses as of 09/08/2023) Active Problems Problem Noted Date Diagnosed Date [...] as of this encounter (statuses as of 09/08/2023) Resolved Problems Problem Noted Date Diagnosed Date [...] as of this encounter (statuses as of 09/08/2023) Immunizations Name Administration Dates Next Due COVID-19, [...] encounter Miscellaneous Notes * Telephone Encounter - Michelle Salamanca OSA - 09/08/2023 9:30 AM EST Patient scheduled for a PET/CT Scan @ for 12/09/23 @ 10:45am. Mailed all info to patient with prep instructions. documented in this encounter Plan of Treatment Upcoming Encounters Date Type Department Care Team (Late st Contact Info) Description 09/08/2023 6:22 AM EST Hospital Encounter Radiology [facility], Holly Acosta [address] [place] [address] Arrived 10/03/2023 9:45 AM EDT Pharmacy Pharmacy Hematology Oncology [facility] [address] [place] [address] [facility] [address] [place] [address] 12/09/2023 10:45 AM EDT Imaging [facility] [address] [facility] [place] [address] 12/11/2023 7:45 AM EDT Office Visit Hematology/Oncology [facility] 200 [facility] [place] [address] Benja Watkins MD 200 [place] [address] 01/29/2024 8:20 AM EDT Office Visit [facility] [address] [place] [phone] Martin Solorio MD [address] [place], [place] [id number] Scheduled Procedures Name Priority Associated Diagnoses Date/Ti me UNLISTED PROCEDURE NERVOUS SYSTEM Brain tumor (HCC) 09/08/2023 6:30 AM EST COLONOSCOPY FLEXIBLE PROXIMAL DIAGNOSTIC Recall [...] this encounter Medical Devices Implanted Type Area Sales Stock Associate Device Identifier Shelf Expiration Date Model / Serial / Lot Cover Leopold Hole 24mm 421.528 - [id number] Implanted:Qty: 1 on 08/20/2021 [place] Joni Hand III[place] [facility] [place] Head SYNTHES MAXILLOFACIAL 421.528 / / Plate Y Ti Lo Db 6h 21 421.517 - [id number] Implanted:Qty: 1 on 08/20/2021 by Joni Hand III[place] [facility] [place] Head SYNTHES MAXILLOFACIAL 421.517 / / Screw Ti Lo Pro Sd 4mm 400.834 - [id number] Implanted:Qty: 10 on 08/20/2021 by Joni Hand III, [place] [facility] [place]: Head SYNTHES MAXILLOFACIAL 400.834 / / documented as of this encounter Advance Directives Latest Code Status on File Code Status Date Activated Date Inactivated Comments Full Code 09/08/2023 7:08 AM This order reflects the patients wishes [...] Directives occurred with: Not Discussed Care Teams Arc And Gas Welder Relationship Specialty Start Date End Date Martin Solorio MD [address] [facility] [place] [address] PCP - General Family Medicine 02/20/21 documented as of this encounter
--- OUTSIDE RECORDS SUMMARY | 2024-02-27 02:31 | External Medical Summary ---
Author Name Unknown Address Unknown Organization K09[facility] [address] Laboratory Report Ordering Provider Test Date Status DILLAN LOPEZ 09/03/2023 10:49:49 Final Observation Date Value Abnormality Reference (Units ) Status WBC, Total 09/03/2023 10:49:49 5.78 4.00-10.8 0 (K/uL) Final RBC 09/03/2023 10:49:49 4.12 3.85-5.15 (M/uL) Final Hemoglobin 09/03/2023 10:49:49 13.2 12.0-15.3 (g/dL) Final HCT 09/03/2023 10:49:49 39.9 36.0-45.2 (%) Final MCV 09/03/2023 10:49:49 96.8 81.5-97.5 (fL) Final MCH 09/03/2023 10:49:49 32.0 27.0-34.0 (pg) Final MCHC 09/03/2023 10:49:49 33.1 32.0-36.0 (g/dL) Final RDW 09/03/2023 10:49:49 13.7 11.5-15.5 (%) Final Platelets 09/03/2023 10:49:49 337 140-400 (K /uL) Final MPV 09/03/2023 10:49:49 8.8 6.6-11.1 ( fL) Final Performing Location [facility] [place] [address]
--- OUTSIDE RECORDS SUMMARY | 2024-02-27 02:31 | External Medical Summary | Summary of Care ---
Author Name Unknown Organization [facility] Address [address] [place] [address] Phone [phone] Care Team Providers Care Lining Setter Name Role Phone Martin Solorio MD Primary Care Provider [phone] Reason for Referral * (Within 10 days (routine)) - Authorized Specialty Diagnoses / Procedures Referred By Contac t Referred To Contact Radiology Diagnoses Metastasis to brain (HCC) Procedures MRI NEURO 3-D RECONSTRUCTION Marianne Pierre PA-C [address] [facility] [place] [address] Referral ID Status Reason Start Date Expiration Date V isits Requested Visits Authorized [id number] Authorized 09/08/2023 999 999 * Precert (Within 10 days (routine)) - Pending Review Specialty Diagnoses / Procedures Referred By Contac t Referred To Contact Radiology Diagnoses Metastasis to brain (HCC) Procedures MR GUIDED LOCALIZATION BRAIN Marianne Pierre PA-C [address] [facility] [place] [address] Referral ID Status Reason Start Date Expiration Date V isits Requested Visits Authorized [id number] Pending Review 09/08/2023 999 999 Reason for Visit * Reason Onset Date Comments Update 08/27/2023 Other 08/27/2023 Encounter Details Date Type Department Care Team (Late st Contact Info) Description 08/27/2023 Telephone [facility] [address] [place] [address] Joni Hand III, MD [address] [place], [place] [id number] Update; Other Allergies Active Allergy Reactions Criticality [...] THE EVENING 360 Tablet 3 4 Active Mupirocin 2 % External Ointment (Bactroban) Apply small amount of ointment to each nostril with a cotton swab twice daily starting today until surgey 22 g 0 4 Active Chlorhexidine Gluconate 4 % External Liquid (Hibiclens) Apply as directed 120 mL 0 4 Active Dabrafenib Mesylate 75 MG Oral [...] Note - Marianne Pierre PA-C - 09/04/2023 2:57 PM ESTAddended by: MARIANNE PIERRE on: 09/04/2023 02:57 PM Modules accepted: Orders * Telephone Encounter - Marianne Pierre PA-C - 09/04/2023 2:55 PM EST Patient returned call and is agreeable to 07/08. Informed her that the OR would call tomorrow afternoon wit martinez arrival time. I will order hibi/bactroban. [place] will call her to confirm everything. * Addendum Note - Marianne Pierre PA-C [...] do we have a date for the AYLSHA procedure? * Telephone Encounter - Fozia Mayer OSA - 09/01/2023 9:46 AM EST Who is calling: Judy Garcia "Ida" Pt is established with: Future Dr Lawler Reason for call: Pt requesting return call from Marianne. How long issue has been going on: Additional details: Call back number: [phone] Pharmacy (if applicable): * Telephone Encounter - [...] Department Care Team (Latest Contact Info) Description 09/05/2023 2:15 PM EST Office Visit Hematology/Oncology Archana Moreira [place] 200 [facility] [place] [address] Benja Watkins MD 200 [facility] [place] [address] 09/08/2023 7:30 AM EST Hospital Encounter OR [facility], Operating Room [facility], Critical Care Building Level 3 [address] [place] [address] Bereket Lawler MD [address] [place] [address] 09/08/2023 7:30 AM EST - 09/08/2023 9:50 AM EST Surgery OR [facility], Operating Room [facility], Critical Care Building Level 3 [address] [place] [address] Bereket Lawler MD [address] [place] [address] UNLISTED PROCEDURE NERVOUS SYSTEM 10/03/2023 9:45 AM EDT Pharmacy Pharmacy Hematology Oncology [facility] [address] [place] [address] [facility] Hem/Onc [address] [place] [address] 01/29/2024 8:20 AM EDT Office Visit [facility] [address] [place] [address] Martin Solorio MD [address] [place] [address] Scheduled Orders Name Type Priority [...] this encounter Medical Devices Implanted Type Area Mold Car Pusher Device Identifier Shelf Expiration Date Model / Serial / Lot Screw Ti Lo Pro Sd 4mm 400.834 - [id number] Implanted:Qty: 10 on 08/20/2021 by Joni Hand III, MD at [facility] Right: Head SYNTHES MAXILLOFACIAL 400.834 / / documented as of this encounter Visit Diagnoses Diagnosis Metastasis to brain (HCC)- Primary Secondary malignant neoplasm of brain and spinal cord Brain tumor (HCC) Neoplasm of unspecified nature [...] Directives occurred with: Not Discussed Care Teams Lining Setter Relationship Specialty Start Date End Date Martin Solorio MD [address] [facility] [place] [address] PCP - General Family Medicine 02/20/21 documented as of this encounter
--- OUTSIDE RECORDS SUMMARY | 2024-02-27 02:31 | External Medical Summary | Summary of Care ---
Author Name Unknown Organization [facility] Address [address] [place] [address] Phone [phone] Care Team Providers Care Mallet Cutter Name Role Phone Martin Solorio MD Primary Care Provider [phone] Reason for Visit * Reason Onset Date Comments Update 08/27/2023 Other 08/27/2023 Encounter Details Date Type Department Care Team (Late st Contact Info) Description 08/27/2023 Telephone [facility] [address] [place] [address] Joni Hand III, MD [address] [place] [address] Update; Other Allergies Active Allergy [...] Telephone Encounter - Melva Blake PA-C - 09/04/2023 12:47 PM EST Returned call to patient to see if she can do 09/08/23 for ALYSHA. Had to leave a message on home and cell number. Will await call back. * Telephone Encounter - Melva Blake PA-C - 09/02/2023 8:48 AM EST Can you give her a call and let her know that Dr Lawler and I are going through his calendar to find a date and I will contact her as soon as I have a date * Telephone Encounter - Melva Blake PA-C - 09/02/2023 7:59 AM EST [place]- do we have a date for the ALYSHA procedure? * Telephone Encounter - Fozia Mayer OSA - 09/01/2023 9:46 AM EST Who is calling: Judy Garcia "Iad" Pt is established with: Future Dr Lawler Reason for call: Pt requesting return call from Melva. How long issue has been going on: Additional details: Call back number: [phone] Pharmacy (if applicable): * Telephone Encounter - Joni Hand III, MD - 08/27/2023 8:42 AM EST I called Ida via her mobile and communicated to her the tumor board recommendation of ALYSHA for the L frontal growing lesion. She is desirous of pursuing this. I will reach out to Melva Batista to set up with Dr. Lawler. All questions were answered. Joni Hand III, MD, PHD 08/27/2023 8:45 AM documented in this encounter Plan of Treatment Upcoming Encounters Date Type Department Care Team (Late st Contact Info) Description 09/05/2023 2:15 PM EST Office Visit [facility] [place] [address] [place] [address] Benja Watkins MD [address] [place] [address] 10/03/2023 9:45 AM EDT Pharmacy Pharmacy Hematology Oncology [facility] [address] [place] [address] [facility] Hem[facility]Onc [address] [place] [address] 01/29/2024 8:20 AM EDT Office Visit [facility] [address] [place] [address] Martin Solorio MD [address] [place] [address] Scheduled Procedures Name Priority Associated [...] this encounter Medical Devices Implanted Type Area System Designer Device Identifier Shelf Expiration Date Model / Serial / Lot Screw Ti Lo Pro Sd 4mm 400.834 - [id number] Implanted:Qty: 10 on 08/20/2021 [place] Joni Hand III[place] [facility] [place]: [...] Directives occurred with: Not Discussed Care Teams Mallet Cutter Relationship Specialty Start Date End Date Martin Solorio MD [address] [place] [address] PCP - General Family Medicine 02/20/21 documented as of this encounter
--- OUTSIDE RECORDS SUMMARY | 2024-02-27 02:31 | External Medical Summary ---
Author Name Unknown Address Unknown Organization : Laboratory Report Ordering Provider Test Date Status CARINA KLINE 09/08/2023 06:05:31 Final Observation Date Value Abnormality Reference (Units ) Status Glucose Point of Care 09/08/2023 06:05:31 100 70-120 (mg/dL) Final Performing Location
--- OUTSIDE RECORDS SUMMARY | 2024-02-27 02:31 | External Medical Summary | Summary of Care ---
Author Name Unknown Organization [facility] Address [address] [place] [address] Phone [phone] Care Team Providers Care Grocery Cashier Name Role Phone Martin Solorio MD Primary Care Provider [phone] Reason for Visit * Reason Comments Outpatient Testing Encounter Details Date Type Department Care Team (Late st Contact Info) Description 09/03/2023 10:40 AM EST Laboratory Laboratory [facility] [address] [place] [phone] [facility] Lab [facility] [address] [place] [address] Malignant melanoma of left lower extremity (HCC) Allergies Active Allergy Reactions Criticality Noted Date Comments Erythromycin 08/15/1997 seizures documented as of this encounter (statuses as of 09/03/2023) Medications Medication Sig Dispensed Refills Start Date End Date Status MULTIVITAMINS PO TABS Take 1 Tablet by mouth every morning. 0 09/10/2007 Active B Complex Oral Tablet Take by mouth 1 Tablet every morning . 0 Active Potassium Chloride Brianna ER 10 MEQ Oral Tablet Extended ReleaseIndications :Hypokalemia Take by mouth 1 Tablet in the morning. 14 Tablet 0 02/04/2022 Active Additional Information Patient not taking.Reported on [...] as of this encounter (statuses as of 09/03/2023) Active Problems Problem Noted Date Diagnosed Date [...] as of this encounter (statuses as of 09/03/2023) Resolved Problems Problem Noted Date Diagnosed Date [...] as of this encounter (statuses as of 09/03/2023) Immunizations Name Administration Dates Next Due COVID-19, [...] Office Visit Hematology/Oncology [facility] [address] [place] [place] [address] Benja Watkins MD [address] [place] [address] 10/03/2023 9:45 AM EDT Pharmacy Pharmacy Hematology [facility] [address] [place] [facility] [place] [address] [facility] Hem/Onc [address] [place] [address] 01/29/2024 8:20 AM EDT Office Visit [facility] [address] [place] [address] Martin Solorio MD [address] [place] [address] Pending Results Name Type Priority Associated Diagnoses Date /Time COMPREHENSIVE METABOLIC PANEL Lab STAT Malignant melanoma of left lower extremity (HCC) 09/03/2023 10:49 AM EST Scheduled Procedures Name Priority Associated Diagnoses [...] 03/08/2024 03/08/2023, 04/22/2022, 04/08/2019, Additional history exists GFR 08/08/2024 08/08/2023, 01/2023, 02/24/2023, Additional history exists TSH 08/08/2024 08/08/2023, 0 11/2023, 06/26/2022, Additional history exists COLONOSCOPY-EVERY 5 YRS AGES 18-100 06/05/2026 06/05/2021, 06/05/2021, 08/10/2010, Additional history exists Albumin/Creatinine Ratio 07/25/2026 07/25/2023 Diabetes Screening 08/08/2026 08/08/2023, 1 07/27/2022, 02/24/2023, Additional history exists Lipid Panel 08/08/2028 08/08/2023, [...] this encounter Medical Devices Implanted Type Area Heel Attacher Wood Device Identifier Shelf Expiration Date Model / Serial / Lot Screw Ti Lo Pro Sd 4mm 400.834 - [id number] Implanted:Qty: 10 on 08/20/2021 by Joni Hand III[place] [facility] [place]: Head SYNTHES MAXILLOFACIAL 400.834 / / documented as of this encounter Procedures Procedure Name Priority Date/Time Associated Diagnosis Comments DIFFERENTIAL, AUTOMATED STAT 09/03/2023 10:49 AM EST Malignant melanoma of left lower extremity (HCC) CBC STAT 09/03/2023 10:49 AM EST Malignant melanoma of left lower extremity (HCC) CBC STAT 09/03/2023 10:49 AM EST Malignant melanoma of left lower extremity (HCC) documented in this encounter Results * (ABNORMAL) DIFFERENTIAL, AUTOMATED (09/03/2023 10:49 AM EST) WBC 5.78 4.00 - 10.80 K/uL 09/03/2023 10:54 AM EST [facility] Neutrophils % 57.6 40.0 - 75.0 % 09/03/2023 10:54 AM EST [facility] Lymphocytes % 24.7 18.0 - 42.0 % 09/03/2023 10:54 AM EST [facility]02 Monocytes % 13.0(H) 1.0 - 11.0 % 09/03/2023 10:54 AM [facility] 56-02 Eosinophils % 4.0 0.0 - 6.0 % 09/03/2023 10:54 AM [facility] 56-02 Basophils % 0.7 0.0 - 2.0 % 09/03/2023 10:54 AM [facility] 56-02 Absolute Neutrophils 3.33 1.80 - 7.70 K/uL 09/03/2023 10:54 AM [facility] 56-02 Absolute Lymphocytes 1.43 1.00 - 4.80 K/ul 09/03/2023 10:54 AM [facility] 56-02 Absolute Monocytes 0.75 0.00 - 1.10 K/uL 09/03/2023 10:54 AM [facility] 56-02 Absolute Eosinophils 0.23 0.00 - 0.70 K/uL 09/03/2023 10:54 AM [facility] 56-02 Absolute Basophils 0.04 0.00 - 0.20 K/uL 09/03/2023 10:54 AM [facility] 56-02 Blood Venous blood specimen / Unknown Venipuncture / Unknown 09/03/2023 10:49 AM EST 09/03/2023 10:50 AM EST Benja Watkins MD LAB BLOOD ORDERABLES [facility] 56-[address] [place] [address] * CBC (09/03/2023 10:49 AM EST) WBC 5.78 4.00 - 10.80 K/uL 09/03/2023 10:54 AM [facility] 56-02 RBC 4.12 3.85 - 5.15 M/uL 09/03/2023 10:54 AM [facility] 56-02 HGB 13.2 12.0 - 15.3 g/dL 09/03/2023 10:54 AM [facility] 56-02 HCT 39.9 36.0 - 45.2 % 09/03/2023 10:54 AM [facility] 56-02 MCV 96.8 81.5 - 97.5 fL 09/03/2023 10:54 AM [facility] 56 MCH 32.0 27.0 - 34.0 pg 09/03/2023 10:54 AM [facility] 56- MCHC 33.1 32.0 - 36.0 g/dL 09/03/2023 10:54 AM [facility] 56- RDW 13.7 11.5 - 15.5 % 09/03/2023 10:54 AM [facility] 56- PLT 337 140 - 400 K/uL 09/03/2023 10:54 AM [facility] 56- MPV 8.8 6.6 - 11.1 fL 09/03/2023 10:54 AM [facility] 56- Blood Venous blood specimen / Unknown Venipuncture / Unknown 09/03/2023 10:49 AM EST 09/03/2023 10:50 AM EST Benja Watkins MD LAB BLOOD ORDERABLES [facility] 56- [address] [place] [address] documented in this encounter Visit Diagnoses Diagnosis [...] Directives occurred with: Not Discussed Care Teams Grocery Cashier Relationship Specialty Start Date End Date Martin Solorio MD [address] [place] [address] PCP - General Family Medicine 02/20/21 documented as of this encounter
--- OUTSIDE RECORDS SUMMARY | 2024-02-27 02:31 | External Medical Summary ---
Author Name Unknown Address Unknown Organization K2I:LAB[facility]ATORY [facility] - [address] [place] [address] Dr. Ulises [place]S [address] Laboratory Report Ordering Provider Test Date Status CARINA KLINE 09/08/2023 06:08:10 Final SCREENING Observation Date Value Abnormality Reference (Units ) Status SARS Coronavirus 2 09/08/2023 06:08:10 Negative N egative Final 2019 Novel Coronavirus not d etected.

This express test was developed and its performance characteristics determined by [facility]. It has not been cleared or approved [...] (RT-PCR) test, or a Centers for Disease Control-acceptable equivalent. The test is performed in a high complexity Clinical Laboratory Improvement Amendments-(CLIA) certified laboratory. The test is acceptable for SARS-CoV-2 diagnosis, surveillance, and travel within the [place] and to most countries. Please check with local testing authorities about requirements before travel.

The validation of bronchial specimens, tracheal aspirates, and sputum for this assay was developed and performance characteristics determined by [facility]. The validation of alternate specimen types has not been cleared or approved by the U.S. Food and Drug Administration (FDA). It has been determined that such clearance is not necessary. Performing Location LABORATORY [facility] - [address] [place] [address] Dr. Ulises [place]S [address]
--- OUTSIDE RECORDS SUMMARY | 2024-02-27 02:31 | External Medical Summary | Summary of Care ---
Author Name Unknown Organization [facility] Address [address] [facility] [address] Phone [phone] Care Team Providers Care Vehicle Safety Inspector Name Role Phone Martin Solorio MD Primary Care Provider [phone] Encounter Details Date Type Department Care Team (Late st Contact Info) Description 09/08/2023 Telephone Neurosurgery [place] MART[facility] [address] [facility] [place] [id number] Sarah Grissom PA-C [address] [facility] [place] [address] Allergies Active Allergy Reactions Criticality Noted Date [...] 120 Capsule 5 4 Suspended Additional Information documented as of this encounter (statuses as [...] encounter Miscellaneous Notes * Telephone Encounter - Sarah Grissom PA-C - 09/08/2023 12:19 PM EST S/p ALYSHA w/ Dr. Lawler today, needs f/u scheduled. documented in this encounter Plan of Treatment Upcoming Encounters Date Type Department Care Team (Late st Contact Info) Description 10/03/2023 9:45 AM EDT Pharmacy Pharmacy Hematology Oncology [place] [address] [place] [address] [facility]Onc [address] [place] [address] 12/09/2023 10:45 AM EDT Imaging Radiology [facility] 1[facility] [address] [place] [address] 12/11/2023 7:45 AM EDT Office Visit Hematology/Oncology [facility] [place] [address] [facility] [place] [phone] Benja Watkins MD [address] [facility] [place] [address] 01/29/2024 8:20 AM EDT Office Visit [facility] [address] [place] [address] Martin Solorio MD [address] [place] [address] Scheduled Procedures Name Priority Associated [...] this encounter Medical Devices Implanted Type Area Martial Arts Instructor Device Identifier Shelf Expiration Date Model / Serial / Lot Cover Nilda Hole 24mm 421.528 - [id number] Implanted:Qty: 1 on 08/20/2021 by Joni Hand III, MD at OR [facility] Right: Head SYNTHES MAXILLOFACIAL 421.528 / / Plate Y Ti Lo Db 6h 21 421.517 - [id number] Implanted:Qty: 1 on 08/20/2021 by Joni Hand III, MD at OR [facility] Right: Head SYNTHES MAXILLOFACIAL 421.517 / / Screw Ti Lo Pro Sd 4mm 400.834 - [id number] Implanted:Qty: 10 on 08/20/2021 by Joni Hand III, MD at OR [facility] Right: Head SYNTHES MAXILLOFACIAL 400.834 / / documented as of this encounter Advance Directives Latest Code Status on File Code Status Date Activated Date Inactivated Comments Full Code 09/08/2023 10:37 AM This orde r reflects the patients wishes and were consensually [...] Directives occurred with: Not Discussed Care Teams Vehicle Safety Inspector Relationship Specialty Start Date End Date Martin Solorio MD [address] [facility] [place] [address] PCP - General Family Medicine 02/20/21 documented as of this encounter
--- OUTSIDE RECORDS SUMMARY | 2024-02-27 02:32 | External Medical Summary | Summary of Care ---
Author Name Unknown Organization [facility] Address [address] [facility] [place] [address] Phone [phone] Care Team Providers Care Alum Mixer Name Role Phone Martin Solorio MD Primary Care Provider [phone] Encounter Details Date Type Department Care Team (Late st Contact Info) Description 08/28/2023 10:10 AM EST Telemedicine Radiation [facility]cology [facility] [place] [address] [facility] [place] [address] Clinic, Brain And Spine Tumor Multidisciplinary [address] [facility] [place] [address] Metastasis to brain (HCC)* Allergies Active Allergy Reactions Criticality Noted Date Comments Erythromycin 08/15/1997 seizures documented as of this encounter (statuses as of 09/02/2023) Medications Medication Sig Dispensed Refills Start Date [...] as of this encounter (statuses as of 09/02/2023) Active Problems Problem Noted Date Diagnosed Date [...] as of this encounter (statuses as of 09/02/2023) Resolved Problems Problem Noted Date Diagnosed Date [...] as of this encounter (statuses as of 09/02/2023) Immunizations Name Administration Dates Next Due COVID-19, [...] as of this encounter Progress Notes * Antaoliy Lucio MD - 08/28/2023 10:10 AM EST Patient location: HOME. I was in a hospital or clinic location. After connecting through [employer],patient was verified with two unique identifiers. Patient (or authorized legal artist representative) was then informed that this was a Telemedicine visit and being conducted confidentially over secure lines. Methods to assure confidentiality were taken. Patient acknowledged consent and understanding of pr ivacy and security of the Telemedicine visit. The patient agreed to participate. RADIATION ONCOLOGY DIETARY TECH MULTIDISCIPLINARY CLINIC FOLLOW-UP DOS: 08/28/23 DIAGNOSIS/STAGE: Metastatic melanoma HPI: Judy Garcia is a 63 year old female with history of superficial spreading melanoma of theleft leg, [id number], Stage IIIc, diagnosed via excision 11/14/2017 (negative margins), S/p re-excision and SLNB 12/26/2017 (-margins; 3 of 3 nodes involved) S/p nivolumab 02/04 - 04/08 S/p right parietal craniotomy for near total resection 08/20/2021 S/p 31.4 Gy / 6 fx right parietal area (two separate targets received 18 Gy / 3 fx and 24 Gy / 3 fxwith the overlap area receiving 31.4 Gy in 6 fractions) 09/11/2021 - 10/02/2021 to the postop bed ([facility]) S/p dabrafinib and trametinib 10/09 - current S/p 27 Gy / 3 fx 08/13/2022 - 08/19/2022 left frontal lobe ([facility]) 09/23/2021 Last seen by Rad Onc (went to [facility] for SRS) 12/06/2021 MRI brain: Lobulated mass in the right precuneus parietal lobe is roughly similar in sizesince September. Progressive marginal T1 shortening, particularly around the upper margin now becoming thick and irregular, indicating hemorrhage, melanin, protein or combination thereof. Mild superimpose d marginal enhancement. The internal components are now homogeneously T2 hyperintense and markedly diffusion restricting, favoring chronic degraded blood products, although intracranial abscess cannot be excluded. Perilesional vasogenic edema has improved since September. This results in decreased masseffect on the right posterior lateral ventricular body and occipital horn. Resolved midline shift. Overall diffuse increased ventriculosulcal caliber throughout the supratentorial brain likely reflects re-expansion, with or without physiologic variation in overall systemic hydration status. No new suspicious lesions. 03/08/2022 MRI brain: Slightly increased right parasagittal parietal enhancement at the superior aspect of the surgical resection cavity with slight interval increase in frontoparietal vasogenic edemasince 12/06/2021 with mild local mass effect. These findings are relatively nonspecific and may represent a combination of post-treatment change and/or viable tumor. 04/02/2022 PET/CT: 1. Expected postsurgical changes from right frontoparietal craniotomy for tumor resection. No focal areas of increased radiotracer activity in the head. 2. No focal areas of increased radiotracer uptake concerning for malignancy. 07/11/2022 PET/CT: 1. Stable/resolving PET-CT findings in comparison to the 04/02/2022 PET-CT scan.No evidence of recurrent or metastatic disease. 2. CT findings as noted. 07/18/2022 MRI brain: 1. New focus of enhancement and intrinsic T1 shortening measuring 5 mm in theleft frontal lobe is likely reflective of a new focus of metastatic disease. 2. Mild contraction of the blood products in the left parietal resection cavity with persistent enhancement at the anterior margin of the cavity and mildly reduced surrounding T2 signal change. Again, this may reflect evolution of post treatment changes, although residual tumor could appear similar. 11/12/2022 MRI brain: 1. Focus of enhancement within the left frontal lobe has decreased in size. Nofindings to suggest new or progressive disease. 2. Redemonstrated postsurgical changes related to right craniotomy. 04/22/2023 MRI brain: 1. Subtle interval increase in size of the 5 mm enhancing lesion in the left frontal lobe, with increased perilesional edema. 2. Stable postsurgical changes of right craniotomiesand resection of a right parietal lobe lesions. Enhancement associated with the medial parietal lobe resection site and extent of T2/FLAIR signal in the right cerebral hemisphere appears unchanged. 04/29/2023 PET/CT: No FDG PET-CT evidence for recurrence of melanoma 06/28/2023 MRI brain: 1. Continued slight interval increase in size of the subcentimeter metastatic lesion in left frontal lobe, with similar perilesional edema. 2. Stable postsurgical and treatment related changes in the right parietal lobe with no new suspicious lesion identified. INTERVAL HISTORY: 08/22/2023 MRI brain: 1. Continued interval increase in size of [...] parietal lobe compared with the prior MRI. She reports she feels well overall today. She denies headaches or dizziness but does report gait disturbances. She occasionally stumbles to both sides of the body, but right more than the left. She reports needing to hold on to an assist device with her right hand. PHYSICAL EXAMINATION: ECOG Performance Status: 1 General: Well nourished, well developed female, appears stated age. Respiratory: Breathing comfortably on room air. Neurologic: Alert, orientated, affect pleasant and cooperative. Remainder of exam deferred for telemedicine visit. ASSESSMENT: Judy Garcia is a 63 year old female with metastatic melanoma with recent MRI brain showing continued increase in size and enhancement of a left frontal lobe lesion for which ALYSHA was recommendedat multidisciplinary DIETARY TECH tumor board. RADIATION ONCOLOGY PLAN: 1) Imaging studies: None from a radiation oncology perspective. Per neurosurgery. 2) Laboratory studies: None from a radiation oncology perspective. 3) Referrals/other follow-ups: - Appointment with hematology oncology, Dr. Watkins, on 09/05/2023 4) Radiation planning: She is planning to have ALYSHA, no radiation indicated at this time. 5) Follow-up: Post-operative follow-up per neurosurgery. I spent a total of 10-19 minutes (exact time 15 mins) on the date of service in preparation, delivery, and documentation of the care provided to Judy Garcia excluding any time spent in the performance of separately billed services. Anatoliy Lucio MD, PharmD Radiation Oncology [facility], [facility] documented in this encounter Plan of Treatment Upcoming Encounters Date Type Department Care Team (Late st Contact Info) Description 09/05/2023 2:15 PM EST Office Visit Hematology/Oncology [facility] [address] [place] [address] Benja Watkins MD [address] [facility] [place] [address] 10/03/2023 9:45 AM EDT Pharmacy Pharmacy Hematology Oncology [place] [address] [place] [address] Gm, [facility] Hem/Onc [address] [place] [address] 01/29/2024 8:20 AM EDT Office Visit [facility] [address] [place] [facility] [place] [address] Martin Solorio MD [address] [facility] [place] [address] Scheduled Procedures Name Priority Associated Diagnoses [...] 02/24/2023, Additional history exists TSH 08/08/2024 08/08/2023, 11/2023, 06/26/2022, Additional history exists COLONOSCOPY-EVERY 5 [...] this encounter Medical Devices Implanted Type Area Archeologist Classical Device Identifier Shelf Expiration Date Model / Serial / Lot Screw Ti Lo Pro Sd 4mm 400.834 - [id number] Implanted:Qty: 10 on 08/20/2021 by Joni Hand III, MD at [place] [facility] Right: Head SYNTHES MAXILLOFACIAL [...] Directives occurred with: Not Discussed Care Teams Alum Mixer Relationship Specialty Start Date End Date Martin Solorio MD [address] [place] [address] PCP - General Family Medicine 02/20/21 documented as of this encounter
--- OUTSIDE RECORDS SUMMARY | 2024-02-27 02:32 | External Medical Summary | Summary of Care ---
Author Name Unknown Organization [facility] Address [address] [place] [address] Phone [phone] Care Team Providers Care Bleach Boiler Puller Name Role Phone Martin Solorio MD Primary Care Provider [phone] Reason for Visit * Reason Onset Date Comments Update 08/27/2023 Other 08/27/2023 Encounter Details Date Type Department Care Team (Late st Contact Info) Description 08/27/2023 Telephone [facility] [address] [place] [address] Joni Hand III, MD [address] [place] [address] Update; Other Allergies Active Allergy [...] 09/01/2023 9:46 AM EST Who is calling: RadhaJudy jara "Ida" Pt is established with: Future Dr Lawler Reason for call: Pt requesting return call from Melva. How long issue has been going on: Additional details: Call back number: [phone] Pharmacy (if applicable): * Telephone Encounter - [...] 09/05/2023 2:15 PM EST Office Visit Hematology/Oncology [facility] [address] [place] [address] Benja Watkins MD [address] [place] [address] 10/03/2023 9:45 AM EDT Pharmacy Pharmacy Hematology Oncology [place] [address] [place] [address] [facility], [facility] Clinic Hem/[place]c [place] [address] 01/29/2024 8:20 AM EDT Office Visit [facility] [address] [place] [phone] Martin Solorio MD [address] [place] [address] Scheduled Procedures Name Priority Associated [...] this encounter Medical Devices Implanted Type Area General Manager Land Department Device Identifier Shelf Expiration Date Model / Serial / Lot Screw Ti Lo Pro Sd 4mm 400.834 - [id number] Implanted:Qty: 10 on 08/20/2021 by Joni Hand III, MD at OR [facility] Right: Head SYNTHES MAXILLOFACIAL 400.834 / / [...] Directives occurred with: Not Discussed Care Teams Bleach Boiler Puller Relationship Specialty Start Date End Date Martin Solorio MD [address] [place] [address] PCP - General Family Medicine 02/20/21 documented as of this encounter
--- OUTSIDE RECORDS SUMMARY | 2024-02-27 02:32 | External Medical Summary | Summary of Care ---
Author Name Unknown Organization [facility] Address [address] [place] [address] Phone [phone] Care Team Providers Care Take Away Attendant Name Role Phone Martin Solorio MD Primary Care Provider [phone] Reason for Visit * Reason Onset Date Comments Update 08/27/2023 Other 08/27/2023 Encounter Details Date Type Department Care Team (Late st Contact Info) Description 08/27/2023 Telephone [facility] [address] [place] [address] Joni Hand III, MD [address] [place] [address] Update; Other Allergies Active Allergy Reactions Criticality Noted Date Comments Erythromycin 08/15/1997 seizures documented as of this encounter (statuses as of 09/01/2023) Medications Medication Sig Dispensed Refills Start Date [...] as of this encounter (statuses as of 09/01/2023) Active Problems Problem Noted Date Diagnosed Date [...] as of this encounter (statuses as of 09/01/2023) Resolved Problems Problem Noted Date Diagnosed Date [...] as of this encounter (statuses as of 09/01/2023) Immunizations Name Administration Dates Next Due COVID-19, [...] encounter Miscellaneous Notes * Telephone Encounter - Fozia Mayer OSA - 09/01/2023 9:46 AM EST Who is calling: Judy Garcia "Ida" Pt is established with: Home Lawler Reason for call: Pt requesting return call from Melva. How long issue has been going on: Additional details: Call back number: [phone] Pharmacy (if applicable): * Telephone Encounter - [...] 09/05/2023 2:15 PM EST Office Visit Hematology/Oncology [facility] [address] [place] [place] [address] Benja Watkins MD [address] [place] [place] [address] 10/03/2023 9:45 AM EDT Pharmacy Pharmacy Hematology Oncology [facility] [address] [place] [address] [facility] [place], [facility] Hem/Onc [address] [place] [address] 01/29/2024 8:20 AM EDT Office Visit [facility] [address] [place] [phone] Martin Solorio MD [address] [place] [address] Scheduled Procedures Name Priority Associated Diagnoses Date/Ti [...] this encounter Medical Devices Implanted Type Area Wool Shearing Supervisor Device Identifier Shelf Expiration Date Model / Serial / Lot Screw Ti Lo Pro Sd 4mm 400.834 - [id number] Implanted:Qty: 10 on 08/20/2021 by Joni Hand III, MD at [place] [facility] [place] Right: Head SYNTHES MAXILLOFACIAL [...] Directives occurred with: Not Discussed Care Teams Take Away Attendant Relationship Specialty Start Date End Date Martin Solorio MD [address] [facility] [address] PCP - General Family Medicine 02/20/21 documented as of this encounter
--- OUTSIDE RECORDS SUMMARY | 2024-02-27 02:32 | External Medical Summary | Summary of Care ---
Author Name Unknown Organization [facility] Address [address] [place] [address] Phone [phone] Care Team Providers Care Radiologic Therapist Name Role Phone Martin Solorio MD Primary Care Provider [phone] Reason for Visit * Reason Onset Date Comments Update 08/27/2023 Other 08/27/2023 Encounter Details Date Type Department Care Team (Late st Contact Info) Description 08/27/2023 Telephone [facility] [address] [place] [address] Joni Hand III, MD [address] [place] [address] Update; Other Allergies Active Allergy [...] going on: Additional details: Call back number: [phone] Pharmacy (if applicable): * Telephone Encounter - [...] 09/05/2023 2:15 PM EST Office Visit Hematology/Oncology [facility] [address] [facility] [place] [address] Benja Watkins MD [address] [facility] [place] [address] 10/03/2023 9:45 AM EDT Pharmacy Pharmacy Hematology Oncology [facility] [address] [place] [address] [facility], [facility] Hem/Onc [address] [place] [address] 01/29/2024 8:20 AM EDT Office Visit [facility] [address] [place] [phone] Martin Solorio MD [address] [place] [address] Scheduled Procedures Name Priority Associated Diagnoses Date/Ti [...] this encounter Medical Devices Implanted Type Area Precision Honing Machine Operator Device Identifier Shelf Expiration Date Model / Serial / Lot Screw Ti Lo Pro Sd 4mm 400.834 - [id number] Implanted:Qty: 10 on 08/20/2021 by Joni Hand [...] Directives occurred with: Not Discussed Care Teams Radiologic Therapist Relationship Specialty Start Date End Date Martin Solorio MD [address] [facility] [place] [address] PCP - General Family Medicine 02/20/21 documented as of this encounter
--- OUTSIDE RECORDS SUMMARY | 2024-02-27 02:32 | External Medical Summary | Summary of Care ---
Author Name Unknown Organization [facility] Address [address] [place] [address] Phone [phone] Care Team Providers Care Vehicle Service Agent Name Role Phone Martin Solorio MD Primary Care Provider [phone] Reason for Visit * Reason Onset Date Comments Update 08/27/2023 Other 08/27/2023 Encounter Details Date Type Department Care Team (Late st Contact Info) Description 08/27/[address] [facility] [address] [place] [address] Joni Hand III, MD [address] [place] [address] Update; Other Allergies Active Allergy [...] going on: Additional details: Call back number: [phone] Pharmacy (if applicable): * Telephone Encounter - [...] State Aaron Medina [address] [place] [address] Benja Watkins MD [address] [place] [address] 10/03/2023 9:45 AM EDT Pharmacy Pharmacy Hematology Oncology [facility] [address] [place] [address] [facility], [facility] Hem/Onc [address] [place] [address] 01/29/2024 8:20 AM EDT Office Visit [facility] [address] [place] [address] Martin Solorio MD [address] [place], [place] [phone] Scheduled Procedures Name Priority Associated Diagnoses Date/Ti [...] encounter Medical Devices Implanted Type Area Retail Chain Store Area Supervisor Device Identifier Shelf Expiration Date Model / Serial / Lot Screw Ti Lo Pro Sd 4mm 400.834 - [id number] Implanted:Qty: 10 on 08/20/2021 by Joni Hand III, MD at [facility] Right: Head SYNTHES MAXILLOFACIAL 400.834 / / [...] occurred with: Not Discussed Care Teams Vehicle Service Agent Relationship Specialty Start Date End Date Martin Solorio MD [address] [place] [address] PCP - General Family Medicine 02/20/21 documented as of this encounter
--- NOTE | 2024-02-27 02:33 | History & Physical Report ---
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 As per she was walking out of the house yesterday night and she fell and had black and blue on his lesion her left eye. No loss of consciousness. Was able to get up. states patient told him that she was doing fine he did not bring her in the morning. But she was getting confused last 2 days. Not eating much. So decided to bring to the hospital. No complaint of headache or chest pain as per . No nausea. No diarrhea or constipation per . Patient is oriented to name only. States mostly no to all the questions. Patient has history of melanoma involving left leg s/p resection on 12/26/2017. And positive for left inguinal lymph node. Patient was on immunotherapy and completed in 2019. In July 2021 she was in the ER for headache and imaging studies shows intraparenchymal hemorrhage in the right parietal occipital region. And brain MRI showed 3 cm enhancing mass with surrounding vasogenic edema posterior to the medial right parietal lobe associated with internal hemorrhage. She is status post right partial craniotomy lesion was malignant melanoma. Status post completion of postoperative radiation therapy. And was initiation on oral chemotherapy with dabrafenib and trametinib. In November 2021 patient was evaluated in the ER for seizures. Brain MRI showed vasogenic edema was improved right parietal lobe. And possible old hemorrhage and postoperative changes seen in underlying metastatic lesion. In June 2022 MRI of the brain showed new focus measuring 5 mm in the left frontal lobe likely reflective of a new focus of metastatic disease And she was status post completion of stereotactic radiation therapy to the brain lesion. she had a PET scan on April 29 2023 with no evidence of recurrent myeloma and an MRI on April 22, 2023 showed subtle interval increase in size of the 5 mm enhancing lesion in the left frontal lobe with increased perilesional edema. 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 Repeat MRI on 02/20/2024 showed 1.9 cm lesion in left frontal lobe with surrounding vasogenic edema and mild mass effect and recommended short interval follow-up with postcontrast and perfusion imaging. There is also a plan for PET scan. Altered mental status CT head showing moderate to large size area of vasogenic edema with ill-defined borderline hypodense regions and small oval-shaped foci of calcifications seen in the left frontoparietal lobes metastatic lesion versus posttraumatic in nature. And also moderate size cortical hypodensity the right parietal lobe likely postsurgical encephalomalacia. Right parietal /occipital craniotomy Patient has history metastatic to brain s/p radiation treatments in the past ER given IV Decadron 10 mg. Will continue with IV Decadron 4 mg every 6 hours Will get MRI brain with and without contrast Seizure precautions Consult radiation oncology Will discuss with hematology/oncology Close monitor Malignant melanoma Metastatic to brain As mentioned in the HPI Continue dabrafenib and trametinib Await radiation oncology and hematology oncology inputs Elevated troponin EKG okay Will follow serial enzymes and echo Consult cardiology in a.m. for further recommendations History of seizures Continue carbamazepine Seizure precautions Hypothyroidism On Synthyroid Hypertension On losartan Depression On paroxetine Hyperlipidemia On statin Nutrition Will keep her n.p.o. 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 As per she was walking out of the house yesterday night and she fell and had black and blue on his lesion her left eye. No loss of consciousness. Was able to get up. states patient told him that she was doing fine he did not bring her in the morning. But she was getting confused last 2 days. Not eating much. So decided to bring to the hospital. No complaint of headache or chest pain as per . No nausea. No diarrhea or constipation per . Patient is oriented to name only. States mostly no to all the questions. Patient has history of melanoma involving left leg s/p resection on 12/26/2017. And positive for left inguinal lymph node. Patient was on immunotherapy and completed in 2019. In July 2021 she was in the ER for headache and imaging studies shows intraparenchymal hemorrhage in the right parietal occipital region. And brain MRI showed 3 cm enhancing mass with surrounding vasogenic edema posterior to the medial right parietal lobe associated with internal hemorrhage. She is status post right parietal l craniotomy lesion was malignant melanoma. Status post completion of postoperative radiation therapy. And was initiation on oral chemotherapy with dabrafenib and trametinib. In November 2021 patient was evaluated in the ER for seizures. Brain MRI showed vasogenic edema was improved right parietal lobe. And possible old hemorrhage and postoperative changes seen in underlying metastatic lesion. In June 2022 MRI of the brain showed new focus measuring 5 mm in the left frontal lobe likely reflective of a new focus of metastatic disease And she was status post completion of stereotactic radiation therapy to the brain lesion. she had a PET scan on April 29 2023 with no evidence of recurrent myeloma and an MRI on April 22, 2023 showed subtle interval increase in size of the 5 mm enhancing lesion in the left frontal lobe with increased perilesional edema. 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 Repeat MRI on 02/20/2024 showed 1.9 cm lesion in left frontal lobe with surrounding vasogenic edema and mild mass effect and recommended short interval follow-up with postcontrast and perfusion imaging. There is also a plan for PET scan. Past medical history. As mentioned above Past surgical history. Colonoscopy. Cystoscopy. Laparoscopic cholecystectomy. Skin lesion excision from left lower leg in 2017. Craniotomy and brain tumor excision in 2021. Excision of malignant trunk arm. Total abdominal hysterectomy with removal of tubes. Social history. . Smoked 0.5 pack a day for 20 years. Quit around 2007. Smoking on and off as per [employer]. Alcohol occasional. No drug use. Family history. Maternal aunt had breast cancer. Mother had breast cancer. A- fib. Father had CAD s/p stent in his 60s. Sister had breast cancer. Allergies Allergy/AdvReac Type Severity Reaction Status Date / Time erythromycin base Allergy Unknown BROUGHT ON Verified 11/19/22 14:03 SEIZURES Macrolide Antibiotics Allergy Unknown Unknown Verified 11/19/22 14:03 Home Medications Medication Instructions Recorded Confirmed Type levothyroxine 200 mcg tablet 200 mcg PO DAILYBB 08/17/21 02/27/24 History (Euthyrox) trazodone 100 mg tablet 150 mg PO HS 08/17/21 02/27/24 History multivitamin 1 tab PO QAM 08/30/21 02/27/24 History paroxetine HCl 40 mg tablet 40 mg PO QAM 08/30/21 02/27/24 History ondansetron HCl 8 mg tablet 8 mg PO BID 12/15/21 02/27/24 History dabrafenib 75 mg capsule (Tafinlar) 75 mg PO AMHS 07/30/22 02/27/24 History trametinib 2 mg tablet (Mekinist) 1.5 mg PO DAILY 07/30/22 02/27/24 History carbamazepine 200 mg 400 mg PO AMHS 11/19/22 02/27/24 History tablet,extended release,12 hr atorvastatin 20 mg tablet 20 mg PO QPM 02/27/24 02/27/24 History losartan 50 mg tablet 50 mg PO QAM 02/27/24 02/27/24 History triamcinolone acetonide 0.1 % 1 applic topical BID 02/27/24 02/27/24 History topical cream Past Med/Surg History Problem List (Updated 02/27/24 @ 01:25 by José Luis Lozano MD) CHI (closed head injury) (Acute) Ground-level fall (Acute) Elevated troponin (Acute) Vasogenic edema (Acute) AMS (altered mental status) (Acute) Memory changes Balance problems Melanoma metastatic to brain (Chronic) Medical History History of melanoma Lesion of brain (08/05/12) Melanoma metastatic to brain No pertinent past medical history Seizure disorder Surgical History H/O craniotomy History of back surgery History of brain surgery x2 History of knee replacement procedure of left knee History of partial hysterectomy Hx of cholecystectomy Status post right foot surgery Family History Grandfather (Maternal) Cancer Breast cancer Sister Cancer Breast cancer Father Cancer Colon cancer Social History Smoking Status: Unknown if ever smoked Tobacco Type: Cigarettes Cigarettes Per Day: 13; Hx Alcohol Use: No Hx Substance Use: No Preferred Language: Czech Communication Ability: Impaired Visual Impairment: No Limitations Hearing Ability: Normal It Operations Analyst Required: No Beliefs That Will Affect Care: None marital status: Current Living Situation: Spouse current occupational status: employed 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 Head- purple lesion on left eye lid Eyes- PERRL. ENT- oropharynx clear Neck- supple, no JVD. Lungs- clear to auscultation no wheezing or crackles. Heart- regular rhythm; no murmur, no gallop, Abdomen- normal bowel sounds, soft, nontender, no distension. Extremities- no pretibial edema, no erythema seen Neuro- alert, oriented x 1; PERRL, no facial palsy; no dysarthria; could not able to full exam as patient not following commands Results & Data Results & Data Vital Signs (Past 12 Hours) Vital Signs Temp Pulse Pulse Resp BP BP Pulse Ox 02/27/24 01:56 77 16 114/76 94 02/27/24 00:58 82 16 121/78 96 02/27/24 00:00 75 16 106/67 96 02/26/24 23:30 70 22 133/82 91 02/26/24 22:47 02/26/24 22:47 36.7 C 77 20 139/88 95 02/26/24 22:47 79 O2 Del Method 02/27/24 01:56 Room Air 02/27/24 00:58 Room Air 02/27/24 00:00 Room Air 02/26/24 23:30 02/26/24 22:47 Room Air 02/26/24 22:47 Room Air 02/26/24 22:47 Diagnostic Findings Laboratory Results WBC 5.51 K/ul (4.8-10.8) 02/26/24 22:50 RBC 4.46 M/uL (4.20-5.40) 02/26/24 22:50 Hgb 13.9 g/dl (12.0-16.0) 02/26/24 22:50 POC Hgb 14.3 g/dl (12.0-16.0) 02/26/24 22:56 Hct 40.3 % (37.0-47.0) 02/26/24 22:50 POC Hct 42 % (37-47) 02/26/24 22:56 MCV 90.4 fL (80.0-100.0) 02/26/24 22:50 MCH 31.2 pg (25.0-34.0) 02/26/24 22:50 MCHC 34.5 g/dL (32.0-36.0) 02/26/24 22:50 RDW Std Deviation 46.6 fL (36.4-46.3) H 02/26/24 22:50 RDW Coeff of Kelvin 14.0 % (11.5-14.5) 02/26/24 22:50 Plt Count 353 K/uL (130-400) 02/26/24 22:50 MPV 9.5 fL (9.4-12.4) 02/26/24 22:50 Immature Gran % (Auto) 0.2 % 02/26/24 22:50 Neut % (Auto) 66.8 % 02/26/24 22:50 Lymph % (Auto) 22.0 % 02/26/24 22:50 Mcduffie % (Auto) 10.3 % 02/26/24 22:50 Eos % (Auto) 0.2 % 02/26/24 22:50 Baso % (Auto) 0.5 % 02/26/24 22:50 Neut # (Auto) 3.68 K/uL (1.40-6.50) 02/26/24 22:50 Lymph # (Auto) 1.21 K/uL (1.20-3.40) 02/26/24 22:50 Mcduffie # (Auto) 0.57 K/uL (0.11-0.59) 02/26/24 22:50 Eos # (Auto) 0.01 K/uL (0.00-0.50) 02/26/24 22:50 Baso # (Auto) 0.03 K/uL (0.00-0.20) 02/26/24 22:50 Immature Gran # (Auto) 0.01 K/uL (0.01-0.20) 02/26/24 22:50 PT 9.9 Seconds (9.0-12.0) 02/26/24 22:50 INR 0.9 (0.9-1.1) 02/26/24 22:50 POC Sodium 137 mmol/L (135-144) 02/26/24 22:56 Sodium 136 mmol/L (136-145) 02/26/24 22:54 POC Potassium 3.2 mmol/L (3.3-5.0) L 02/26/24 22:56 Potassium 3.4 mmol/L (3.5-5.1) L 02/26/24 22:54 POC Chloride 99 mmol/L (101-112) L 02/26/24 22:56 Chloride 99 mmol/L (98-107) 02/26/24 22:54 Carbon Dioxide 28 mmol/L (21-32) 02/26/24 22:54 POC Total CO2 27 mmol/L (24-31) 02/26/24 22:56 Anion Gap 9 (3-11) 02/26/24 22:54 POC Anion Gap 15.0 mmol/L (16-25) L 02/26/24 22:56 POC BUN 12 mg/dl (7-18) 02/26/24 22:56 BUN 12 mg/dl (6-23) 02/26/24 22:54 Creatinine 0.66 mg/dl (0.6-1.2) 02/26/24 22:54 POC Creatinine 0.7 mg/dl (0.6-1.3) 02/26/24 22:56 Est Cr Clr Drug Dosing 67.2 ml/min 02/26/24 22:54 Est GFR ( Amer) 107.4 ml/min 02/26/24 22:54 Est GFR (Non-Af Amer) 92.7 ml/min 02/26/24 22:54 BUN/Creatinine Ratio 18.2 (10-20) 02/26/24 22:54 Glucose 138 mg/dl (70-99(Fasting)) H 02/26/24 22:54 POC Glucose (other) 137 mg/dl (70-99) H 02/26/24 22:56 Calcium 9.1 mg/dl (8.6-10.3) 02/26/24 22:54 POC Ioniz Calcium Deshawn 1.16 mmol/l (1.12-1.32) 02/26/24 22:56 Total Bilirubin 0.4 mg/dl (0.2-1.0) 02/26/24 22:54 AST 36 U/L (13-39) 02/26/24 22:54 ALT 16 U/L (7-52) 02/26/24 22:54 Alkaline Phosphatase 111 U/L (34-104) H 02/26/24 22:54 Ammonia 33.0 umol/L (18-72) 02/27/24 00:27 Total Creatine Kinase 269 U/L (26-192) H 02/26/24 22:54 Troponin I High Sens 1238.1 pg/ml (0-14) H* 02/27/24 00:27 Total Protein 7.3 gm/dl (6.0-8.3) 02/26/24 22:54 Albumin 3.6 gm/dl (3.4-5.0) 02/26/24 22:54 Globulin 3.7 gm/dl (2.5-4.0) 02/26/24 22:54 Albumin/Globulin Ratio 1.0 (0.9-2) 02/26/24 22:54 Ethyl Alcohol mg/dL < 10.0 mg/dl (<10.0) 02/26/24 22:[address] 02/26/24 22:48 Exam(s): CT C SPINE EXAM: CT Cervical Spine Without Intravenous Contrast CLINICAL HISTORY: Reason for exam: Trauma. TECHNIQUE: Axial computed tomography images of the cervical spine without intravenous contrast. CTDI is 37.12 mGy and DLP is 2383.07 mGy-cm. Automated exposure control was utilized for the study. A dose lowering technique was utilized adhering to the principles of ALARA. COMPARISON: PET/CT scan: 07/11/2022 FINDINGS: Motion-induced image degradation. There has been prior fusion instrumentation from C3-C7 levels. A 3 mm anterolisthesis of C2 on C3. There is 5-6 mm C3 vertebral anterolisthesis. Vertebrae: Osteoporosis. Straightening of normal lordosis. No acute fracture. Endplates and posterior elements sclerosis and cortical thickening/enlargement of bone. Discs/spinal canal/neural foramina: Multilevel moderate degenerative spondylitic changes with variable degrees of foraminal narrowing. Soft tissues: Grossly unremarkable. . IMPRESSION: Postsurgical spine. 5-6 mm C3 vertebral anterolisthesis. A 3 mm C2 vertebral anterolisthesis. Grossly otherwise no significant abnormalities post trauma . . Electronically signed by: Destiny Yung MD, DABR 02/27/24 00:[address] 02/26/24 22:48 Exam(s): CT HEAD Without Contrast EXAM: CT Head Without Intravenous Contrast CLINICAL HISTORY: Reason for exam: Trauma. TECHNIQUE: Axial computed tomography images of the head/brain without intravenous contrast. CTDI is 37.12 mGy and DLP is 2383.07 mGy-cm. Automated exposure control was utilized for the study. A dose lowering technique was utilized adhering to the principles of ALARA. COMPARISON: PET/CT scan: 07/11/2022 FINDINGS: Diagnostic sensitivity is reduced by the absence of IV contrast and motion artifacts. Brain: Moderately large size area of vasogenic edema with ill-defined borderline hyperdense abnormality and small oval-shaped foci of calcification seen in the left frontotemporal lobes concerning for metastatic lesions versus posttraumatic in nature. A moderate size hypoattenuating abnormality involving the right parietal cortex, likely represents encephalomalacia Ventricles: Unremarkable. No ventriculomegaly. No shift in midline structures. Bones/joints: Right parietal/occipital craniotomy. No acute fracture. Soft tissues: Unremarkable. Sinuses: Unremarkable as visualized. No acute sinusitis. Mastoid air cells: Unremarkable as visualized. No mastoid effusion. IMPRESSION: Exam limited in absence of IV contrast. Moderately large size area of vasogenic edema with ill-defined borderline hyperdense regions and small oval-shaped foci of calcification seen in the left frontotemporal lobes, metastatic lesions versus posttraumatic in nature. Moderate size cortical hypodensity in the right parietal lobe, likely postsurgical encephalomalacia Right parietal/occipital craniotomy. . Electronically signed by: Destiny Yung MD, JULIET 02/27/24 00:11 AM Abdomen/Pelvis CT 02/26/24 22:49 Exam(s): CT ABDOMEN + PELVIS With Contrast IV Amt: 93 ML OPTIRAY 320 EXAM: CT Abdomen and Pelvis With Intravenous Contrast CLINICAL HISTORY: Reason for exam: Trauma. TECHNIQUE: Axial computed tomography images of the abdomen and pelvis with intravenous contrast. CTDI is 37.12 mGy and DLP is 2383.07 mGy-cm. Automated exposure control was utilized for the study. A dose lowering technique was utilized adhering to the principles of ALARA. CONTRAST: Patient received 93 ML OPTIRAY 320 of IV contrast COMPARISON: PET/CT scan: 07/11/2022 FINDINGS: Diagnostic sensitivity is reduced by the motion artifact. Lung bases: Posteriorly basilar linear atelectatic changes RT>LT.. Posteriorly mild pleural thickening. Cardiomegaly. Multivessel calcified coronary arterial atherosclerosis. No mass. No consolidation. ABDOMEN: Liver: No discernible mass. Intrahepatic/extrahepatic postcholecystectomy ductal ectasia. CBD: Maximum 13 mm in diameter. Pancreas: Unremarkable. No mass. No ductal dilation. Spleen: Unremarkable. No splenomegaly. Adrenals: Bilateral mild thickening.. No mass. Kidneys and ureters: A 10 mm hypodensity medially in the right renal cortex. A 5.5 mm cyst in the lower pole right kidney. No solid mass. No hydronephrosis. Stomach and bowel: A moderately distended somewhat patulous appearing fluid and gas-filled stomach. Normal caliber small bowel. Large amount of formed stool is seen throughout the colon. No mucosal thickening. PELVIS: Appendix: Normal appendix. Bladder: A distended urinary bladder. No mass. Reproductive: Prior hysterectomy. ABDOMEN and PELVIS: Intraperitoneal space: Unremarkable. No free air. No significant fluid collection. Bones/joints: Osteopenia. A grade 1/grade 2 L4 spondylolisthesis with associated chronic endplates deformity. Mild/moderate rotatory lumbar levoscoliosis. Multilevel degenerative thoracolumbar spondylitic changes. No obvious acute fracture Soft tissues: Unremarkable. Vasculature: Unremarkable. No abdominal aortic aneurysm. Lymph nodes: Unremarkable. No enlarged lymph nodes.. IMPRESSION: Suboptimally evaluated due to motion artifact. No CT evidence of abdominal/pelvic solid organ injury. No free intraperitoneal air, free fluid or acute fracture seen. Chronic findings as described above. . Electronically signed by: Destiny Yung MD, DABR 02/27/24 01:[address] 02/26/24 22:49 Exam(s): CT CHEST With Contrast IV Amt: 93 ML OPTIRAY 320 EXAM: CT Chest With Intravenous Contrast CLINICAL HISTORY: Reason for exam: Trauma. TECHNIQUE: Axial computed tomography images of the chest with intravenous contrast. CTDI is 37.12 mGy and DLP is 2383.07 mGy-cm. Automated exposure control was utilized for the study. A dose lowering technique was utilized adhering to the principles of ALARA. CONTRAST: Patient received 93 ML OPTIRAY 320 of IV contrast COMPARISON: PET/CT scan: 07/11/2022 FINDINGS: Diagnostic sensitivity of the exam is reduced by motion artifact. Lungs: Central airways are patent. Bilateral mild bronchial wall thickening. Diffuse mild pulmonary interstitial/septal thickening. Mildly prominent peripheral pulmonary vessels. Posteriorly basilars subpleural linear dependent atelectatic changes RT>LT. No mass. No consolidation. Pleural space: Unremarkable. No pneumothorax. No significant effusion. Heart: Mild/moderate cardiomegaly. No significant pericardial effusion. Calcified left coronary arteries calcifications. Bones/joints: Postsurgical cervical spine with anterior fusion instrumentation. Osteopenia. No acute fracture. No dislocation. Multilevel degenerative spondylosis. Soft tissues: Unremarkable. A small rounded calcified nodule in the diminutive right thyroid lobe. Vasculature: Atherosclerotic plaque of the aortic arch. No thoracic aortic aneurysm. Lymph nodes: Unremarkable. No enlarged lymph nodes.. IMPRESSION: Motion artifact. No evidence of acute traumatic intrathoracic injury. Cardiomegaly. Bilateral bronchial wall cuffings, mild pulmonary interstitial/septal thickening and mildly prominent peripheral pulmonary vessels, question mild chronic congestion in the appropriate clinical context. . Electronically signed by: Destiny Yung MD, DABR 02/27/24 02:41 AM ECG Additional Comments: ECG. Sinus rhythm with first-degree AV block at rate of 73. No acute ST changes seen Code Status & VTE Plan VTE Prophylaxis Plan VTE Prophylaxis will be ordered: Yes
--- NOTE | 2024-02-27 02:42 | CT Scan Report ---
Exam(s): CT CHEST With Contrast IV Amt: 93 ML OPTIRAY 320 EXAM: CT Chest With Intravenous Contrast CLINICAL HISTORY: Reason for exam: Trauma. TECHNIQUE: Axial computed tomography images of the chest with intravenous contrast. CTDI is 37.12 mGy and DLP is 2383.07 mGy-cm. Automated exposure control was utilized for the study. A dose lowering technique was utilized adhering to the principles of ALARA. CONTRAST: Patient received 93 ML OPTIRAY 320 of IV contrast COMPARISON: PET/CT scan: 07/11/2022 FINDINGS: Diagnostic sensitivity of the exam is reduced by motion artifact. Lungs: Central airways are patent. Bilateral mild bronchial wall thickening. Diffuse mild pulmonary interstitial/septal thickening. Mildly prominent peripheral pulmonary vessels. Posteriorly basilars subpleural linear dependent atelectatic changes RT>LT. No mass. No consolidation. Pleural space: Unremarkable. No pneumothorax. No significant effusion. Heart: Mild/moderate cardiomegaly. No significant pericardial effusion. Calcified left coronary arteries calcifications. Bones/joints: Postsurgical cervical spine with anterior fusion instrumentation. Osteopenia. No acute fracture. No dislocation. Multilevel degenerative spondylosis. Soft tissues: Unremarkable. A small rounded calcified nodule in the diminutive right thyroid lobe. Vasculature: Atherosclerotic plaque of the aortic arch. No thoracic aortic aneurysm. Lymph nodes: Unremarkable. No enlarged lymph nodes.. IMPRESSION: Motion artifact. No evidence of acute traumatic intrathoracic injury. Cardiomegaly. Bilateral bronchial wall cuffings, mild pulmonary interstitial/septal thickening and mildly prominent peripheral pulmonary vessels, question mild chronic congestion in the appropriate clinical context. . Electronically signed by: Destiny Yung MD, JULIET 02/27/24 02:41 AM
[2024-02-27] MEDS ORDERED: NITROGLYCERIN SL 0.4 MG/TAB TAB SL PRN (04:12)
[2024-02-27] MEDS ORDERED: ONDANSETRON INJ 2 MG/ML 2 ML VIAL IV PRN (04:12)
[2024-02-27] MEDS: SODIUM CHLORIDE 0.9% 1,000 ML IV SCH (05:07)
[2024-02-27] MEDS: POTASSIUM CHLORIDE / WTR 10 MEQ/100 ML PLCT IV SCH (05:07)
[2024-02-27 05:41] LABS: Basophils # (auto) 0.04 K/uL (0.00-0.20); Basophils % (auto) 1.4 %; Immature Granulocytes # (auto) 0.01 K/uL (0.01-0.20); Immature Granulocytes % (auto) 0.3 %; Lymphocytes # (auto) 0.59 K/uL (1.20-3.40); Mean Corpuscular Hemoglobin 31.4 pg (25.0-34.0); Mean Corpuscular Hgb Conc 34.2 g/dL (32.0-36.0); Mean Corpuscular Volume 91.8 fL (80.0-100.0); Mean Platelet Volume 9.2 fL (9.4-12.4); Monocytes # (auto) 0.12 K/uL (0.11-0.59); Monocytes % (auto) 4.1 %; Neutrophils # (auto) 2.19 K/uL (1.40-6.50); Neutrophils % (auto) 74.2 %; Platelet Count 275 K/uL (130-400); RDW Standard Deviation 47.6 fL (36.4-46.3); Red Blood Count 4.14 M/uL (4.20-5.40); White Blood Count 2.95 K/ul (4.8-10.8)
[2024-02-27 05:55] LABS: BUN Creatinine Ratio 15.5 (10-20); Calcium 8.6 mg/dl (8.6-10.3); Creatinine Clr Calc Pharmacy 76.5 ml/min; Est GFR (African American) 112.1 ml/min; Est GFR (Non-African American) 96.7 ml/min; Magnesium 1.7 mg/dl (1.7-2.4); Phosphorus 2.7 mg/dl (2.5-4.9); Potassium 3.4 mmol/L (3.5-5.1)
[2024-02-27] MEDS ORDERED: DEXAMETHASONE SOD INJ 4 MG/ML VIAL IV SCH (06:00)
[2024-02-27] MEDS: LEVOTHYROXINE SODIUM 200 MCG TABLET PO SCH (06:04)
[2024-02-27 06:06] LABS: Troponin I High Sensitivity 820.7 pg/ml (0-14)
[2024-02-27 06:11] LABS: Thyroid Stimulating Hormone 0.043 uIu/ml (0.300-4.500)
[2024-02-27 06:45] LABS: T4 Free Thyroxine 1.28 ng/dl (0.61-1.60)
--- NOTE | 2024-02-27 07:03 | XRay Report ---
SINGLE VIEW CHEST CLINICAL HISTORY: Fall. Change in mental status. FINDINGS: An AP, portable, upright chest radiograph is compared to study dated 12/15/2021. The heart i s enlarged noting atherosclerotic calcification of the thoracic aorta. The pulmonary vasculature is n oncongested. Chronic interstitial thickening is similar to previous. Dependent atelectasis is noted a t the lung bases. The lungs and pleural spaces are otherwise clear. No pneumothorax is seen. The skel etal structures are osteopenic. The bony thorax is grossly intact. Fusion hardware is seen in the low er cervical spine. Cholecystectomy clips are noted in the right upper quadrant. IMPRESSION: Cardiomegaly with no active disease in the chest. ACT 112: Negative or not required by law. Electronically signed by: Leonel Ellis M.D. 02/27/2024 7:01 AM
--- NOTE | 2024-02-27 08:19 | Cardiology Consultation ---
Date of Consultation February 27, 2024 Assessment & Plan (1) Elevated troponin: (2) AMS (altered mental status): (3) Melanoma metastatic to brain: Plan Patient admitted with worsening confusion/altered mental status for several days. Known metastatic melanoma to the brain with recent increase size of lesion on Brain MRI as outpatient on 02/19. Also with increased edema. She was scheduled for urgent neuro surgery appt on 03/01. In the meantime, worsening symptoms at home and s/p fall, so came to ER. Incidentally found to have elevated troponin on arrival ranging [id number] now trending downward to 800. EKG demonstrated NSR with possible old septal infarct (new compared to EKG in 2021). No acute ST/T wave abnormalities to suggest acute ischemic changes. Repeat EKG pending this morning. Echo with moderate sized septal and anteroseptal wall motion abnormalities, avila ggesting possible old septal infarct. Date undetermined. If this was an acute infarction, her troponin would be significantly higher. Likely demand ischemic event in setting of acute neurologic process. She is not a current candidate for invasive cardiac procedures. She appears comfortable. BP and HR controlled. Continue home losartan, if able to take PO meds (after swallowing eval) Continue statin At this point, given her acute neurologic process, would not initiate ASA or Heparin for NSTEMI Replace potassium. IV ordered. Repeat Brain MRI is ordered. Would compare with study at [facility] on 02/19 Would consider [place] [facility] [place] Further recommendations after evaluation/discussion with Dr. Francis I spent a total of 65 minutes on the date of service in preparation, delivery, and documentation of the care provided to this patient, excluding any time spent in the performance of separately billed services. Fouzia Ayala PA-C Department of Cardiology, [facility] This chart was completed in part utilizing Speech Voice Recognition Software. Grammatical errors, random word insertions, pronoun errors, and incomplete sentences are an occasional consequence of this system due to software limitations, ambient noise, and hardware issues. Any formal questions or concerns about the content, text, or information contained within the body of this dictation should be directly addressed to the provider for clarification. Supervising Physician Co-Signing Physician Notes Attending attestation: Case reviewed with the advanced practitioner. I have personally performed a history and physical examination on the patient. I have reviewed the advanced practitioner's documentation on the date of service referenced in note, and I agree with, and take responsibility for the plan of care. Subjective: Patient sitting up, on seizure precautions, eating her lunchtime meal at 11:39 AM when I had seen her. Answers yes no to questions, but I do sense some degree of confabulation. Denies chest discomfort or shortness of breath. Exam: Cardiovascular: Regular rhythm, no murmurs, no edema Data: EKG performed 02/27/2024 at 9:22 AM and interpreted independently: Sinus rhythm at 77 bpm with first-degree AV block, age-indeterminate septal infarct pattern with Q wave noted in lead V2. Unchanged compared to the previous tracing from yesterday. Compared to the previous tracing performed in 2021, age-indeterminate septal infarct pattern is new. Echocardiogram performed today 02/27/2024, interpreted independently: Mild concentric left ventricular hypertrophy There is a moderate-sized septal and anteroseptal wall motion abnormality with hypokinesis of the segments. The LVEF is normal at 55%. Grade 1 diastolic dysfunction. Mild aortic sclerosis without stenosis. Impression/ Plan: Abnormal CT of the brain, MRI completed, report pending. Presentation concerning for recurrent metastatic melanoma -Non-STEMI, age-indeterminate septal infarct pattern on EKG which correlates well with the wall motion abnormality on echocardiogram. Relatively mild troponin elevation compared to the size of the septal wall motion abnormality. Difficult to determine if the patient had a septal infarct sometime between 2021 and now, or if this is an acute event. Differential diagnosis includes atypical presentation for a stress-induced cardiomyopathy. Patient's resting heart rates are already in the 60s to 70s, and therefore would avoid beta-corey therapy. Continue losartan. Continue atorvastatin. Would avoid aspirin or anticoagulation due to brain lesion and risk of intracranial hemorrhage. Await radiation oncology input. May require input from neurosurgery. From a cardiac perspective, conservative treatment recommended. Not a candidate for cardiac catheterization/coronary stents with antiplatelet therapy. I spent a total of 20 minutes coordinating, documenting, and providing care for this patient excluding time spent in the performance of separately billed services or time spent by another provider. Niraj Francis, DO History of Present Illness Reason for Consultation: elevated troponin Requesting Physician: Dr. Adam Attending Physician: Dr. Francis History of Present Illness Patient is a 63 year old female who presented to [facility] with altered mental status after sustaining a fall yesterday, but apparently confusion predated the fall. History obtained from inpatient and outpatient records. No family present. Patient not able to provide history. History includes: 1. Melanoma of the left leg s/p resection Dec 2017; Metastatic disease to the right parietal lobe s/p resection in Jul 2021 and underwent chemo/radiation treatment. Now on chronic dabrafenib and trametininb. 2. Repeat Brain MRI in Apr 2023 with subtle increase lesion in left frontal lobe. New disease vs radiation necrosis considered 3. repeat [facility] MRI in Aug 2023 with enlarging left frontal lobe now measuring 9 x8 mm (previously 5x5 mm). Increased edema noted. 4. Repeat Brain MRI on 02/20/24: Post-ALYSHA treatment related changes in the left f rontal lobe. Parenchymal abnormality at the treatment site measuring 1.9 cm, not fully characterized. Surrounding vasogenic edema and mild mass effect, increased since pretreatment imaging. Short interval follow-up with postcontrast and perfusion imaging is recommended. -scheduled for neurosurgery f/u on Friday03/01/24 There is a chart history of "CAD" but per extensive review of records, no known history of cardiovascular disease. Echo in 2021 with no wall motion abnormalities, hyperdynamic function, no significant valvular disease. Patient apparently had a fall several days ago, but per admission notes, she was "fine" and did not want to go get evaluated. Then over the last few days, patient became increasingly more confused and brought her to the ER. Upon arrival to ER, patient confused. EKG demonstrated NSR, with evidence of septal infarct with poor R wave progression. HS troponin elevated at 1127, 1238, 820. Head CT demonstrating large area of vasogenic edema with hyperdense regions. Brain MRI pending. Would compare with study on 02/20/24 when available. She is scheduled to see [place] [facility] [place] due to abnormal MRI on 02/19 At time of consult, patient resting in bed. Answers "yes/no" questions but difficult to determine reliability. She says "no" to chest pain or shortness of breath. Appears comfortable and in no acute distress. Allergies Allergy/AdvReac Type Severity Reaction Status Date / Time erythromycin base Allergy Unknown BROUGHT ON Verified 11/19/22 14:03 SEIZURES Macrolide Antibiotics Allergy Unknown Unknown Verified 11/19/22 14:03 Home Medications Medication Instructions Recorded Confirmed Type levothyroxine 200 mcg tablet 200 mcg PO DAILYBB 08/17/21 02/27/24 History (Euthyrox) trazodone 100 mg tablet 150 mg PO HS 08/17/21 02/27/24 History multivitamin 1 tab PO QAM 08/30/21 02/27/24 History paroxetine HCl 40 mg tablet 40 mg PO QAM 08/30/21 02/27/24 History ondansetron HCl 8 mg tablet 8 mg PO BID 12/15/21 02/27/24 History dabrafenib 75 mg capsule (Tafinlar) 75 mg PO AMHS 07/30/22 02/27/24 History trametinib 2 mg tablet (Mekinist) 1.5 mg PO DAILY 07/30/22 02/27/24 History carbamazepine 200 mg 400 mg PO AMHS 11/19/22 02/27/24 History tablet,extended release,12 hr atorvastatin 20 mg tablet 20 mg PO QPM 02/27/24 02/27/24 History losartan 50 mg tablet 50 mg PO QAM 02/27/24 02/27/24 History triamcinolone acetonide 0.1 % 1 applic topical BID 02/27/24 02/27/24 History topical cream Patient History Medical History History of melanoma Lesion of brain (08/05/12) Melanoma metastatic to brain No pertinent past medical history Seizure disorder Surgical History H/O craniotomy History of back surgery History of brain surgery x2 History of knee replacement procedure of left knee History of partial hysterectomy Hx of cholecystectomy Status post right foot surgery Family History Grandfather (Maternal) Cancer Breast cancer Sister Cancer Breast cancer Father Cancer Colon cancer Social History Smoking Status: Unknown if ever smoked Tobacco Type: Cigarettes Cigarettes Per Day: 13; Hx Alcohol Use: No Hx Substance Use: No Preferred Language: Divehi Communication Ability: Impaired Visual Impairment: No Limitations Hearing Ability: Normal Stage Driver Required: No Beliefs That Will Affect Care: None marital status: Current Living Situation: Spouse current occupational status: employed 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 [employer] Other Information That Helps Us Care for You: No Feels Safe at Home: Yes Physical Activity Frequency: Does not Exercise Assistive Devices: Glasses Review of Systems Review of Systems: Unobtainable due to cognitive status Physical Exam Constitutional: + ill appearing and + frail appearing Neck: normal visual inspection Respiratory: normal respiratory effort; no labored breathing Auscultation: + diminished lung sounds; no crackles, no rales and no rhonchi Cardiovascular: Rate/Rhythm: regular rate and regular rhythm Heart Sounds: normal S1 and normal S2; no murmur Vessels: no JVD Extremities: no edema Gastrointestinal (Abdomen): normal bowel sounds, soft, nontender, no hepatosplenomegaly Neurologic: + confused Speech / Cognition: + abno rmal cognition Results & Data Vital Signs (Past 12 Hours) Vital Signs Temp Pulse Pulse Resp BP BP Pulse Ox 02/27/24 04:15 02/27/24 04:15 36.9 C 74 18 145/88 H 02/27/24 04:12 36.9 C 74 18 145/88 H 98 02/27/24 04:12 02/27/24 04:00 74 02/27/24 04:00 02/27/24 03:05 68 16 121/90 92 02/27/24 02:38 66 02/27/24 01:56 77 16 114/76 94 02/27/24 00:58 82 16 121/78 96 02/27/24 00:00 75 16 106/67 96 02/26/24 23:30 70 22 133/82 91 02/26/24 22:47 02/26/24 22:47 36.7 C 77 20 139/88 95 02/26/24 22:47 79 Pulse Ox O2 Del Method O2 Del Method O2 Flow Rate O2 Flow Rate 02/27/24 04:15 Nasal Cannula 2 02/27/24 04:15 Nasal Cannula 2 02/27/24 04:12 Nasal Cannula 2 02/27/24 04:12 88 L Room Air 02/27/24 04:00 02/27/24 04:00 99 Nasal Cannula 2 02/27/24 03:05 Room Air 02/27/24 02:38 02/27/24 01:56 Room Air 08/09/24 00:58 Room Air 02/27/24 00:00 Room Air 02/26/24 23:30 02/26/24 22:47 Room Air 02/26/24 22:47 Room Air 02/26/24 22:47 Laboratory Results Cardiac Enzymes 02/26/24 02/27/24 02/27/24 Range/Units 22:54 00:27 05:27 AST 36 (13-39) U/L Troponin I High Sens 1127.6 H* 1238.1 H* 820.7 H* D (0-14) pg/ml Coagulation 02/26/24 Range/Units 22:50 PT 9.9 (9.0-12.0) Seconds CBC 02/26/24 02/27/24 Range/Units 22:50 05:27 WBC 5.51 2.95 L (4.8-10.8) K/ul RBC 4.46 4.14 L (4.20-5.40) M/uL Hgb 13.9 13.0 (12.0-16.0) g/dl Hct 40.3 38.0 (37.0-47.0) % Plt Count 353 275 (130-400) K/uL Neut # (Auto) 3.68 2.19 (1.40-6.50) K/uL Lymph # (Auto) 1.21 0.59 L (1.20-3.40) K/uL Catron # (Auto) 0.57 0.12 (0.11-0.59) K/uL Eos # (Auto) 0.01 0.00 (0.00-0.50) K/uL Baso # (Auto) 0.03 0.04 (0.00-0.20) K/uL Comprehensive Metabolic Panel 02/26/24 02/27/24 Range/Units 22:54 05:27 Sodium 136 137 (136-145) mmol/L Potassium 3.4 L 3.4 L (3.5-5.1) mmol/L Chloride 99 102 (98-107) mmol/L Carbon Dioxide 28 30 (21-32) mmol/L BUN 12 9 (6-23) mg/dl Creatinine 0.66 0.58 L (0.6-1.2) mg/dl Glucose 138 H 135 H (70-99(Fasting)) mg/dl Calcium 9.1 8.6 (8.6-10.3) mg/dl AST 36 (13-39) U/L ALT 16 (7-52) U/L Alkaline Phosphatase 111 H (34-104) U/L Total Protein 7.3 (6.0-8.3) gm/dl Albumin 3.6 (3.4-5.0) gm/dl Intake and Output 02/26/24 02/27/24 02/27/24 22:59 06:59 14:59 Intake Total 590 / 590 100 / 100 Balance 590 / 590 100 / 100 Intake: IV 590 / 590 100 / 100 Potassium Chloride / Wtr 10 meq 90 / 90 100 / 100 In 100 ml @ 100 mls/hr IV Q1H [facility] Rx#:[id number] Sodium Chloride 0.9% 1,000 ml @ 500 / 500 125 mls/hr IV .Q8H [facility] Rx#: [id number] Other: Other Intake Source NPO # Unmeasured Voids 1 Weight 60 kg 59.6 kg Weight Measurement Method Built in [facility] Built in [facility] Diagnostic Findings Telemetry reviewed: NSR with 1st degree AV block EKG reviewed from 02/26/24: Artifact noted NSR with possible first degree AV block Possible old septal infarct. No acute ST/T wave abnormalities Compared with prior EKG in 2021, septal infarct is new. Repeat EKG pending Echocardiogram report reviewed from this morning: Mild concentric LVH Moderate sized septal and anteroseptal wall motion abnormality with hypokinesis of the segments LV systolic function is normal at 55% Grade I diastolic dysfunction Aortic valve sclerosis without stenosis Chest xray report reviewed from February 2024: Cardiomegaly without active disease Head CT on admission: IMPRESSION: Exam limited in absence of IV contrast. Moderately large size area of vasogenic edema with ill-defined borderline hyperdense regions and small oval-shaped foci of calcification seen in the left frontotemporal lobes, metastatic lesions versus posttraumatic in nature. Moderate size cortical hypodensity in the right parietal lobe, likely postsurgical encephalomalacia Right parietal/occipital craniotomy Prior data reviewed from inpatient/outpatient records: Echo report from September 2021 reviewed: LV is normal in size. Hyperdynamic function with LVEF > 70%. No regional wall motion abnormalities. Aortic sclerosis without stenosis Normal RV systolic pressure and function Prior EKG in 2021: NSR, normal EKG. No evidence of septal infarct Medications Administered Current Inpatient Medications Atorvastatin Calcium (Atorvastatin 20 Mg Tab) 20 mg PO QPM [facility] Stop: 03/28/24 20:59 Carbamazepine (Carbamazepine Xr 200 Mg Tabcr) 400 mg PO AMHS [facility] Stop: 03/28/24 08:59 Last Admin: 02/27/24 09:33 Dose: 400 mg Sodium Chloride (Nss) 1,000 mls @ 80 mls/hr IV .[id number] [facility] Stop: 03/28/24 04:44 Last Admin: 02/27/24 05:07 Dose: 80 mls/hr Dexamethasone 4 mg/ Syringe 1 mls @ 1 mls/min IV Q6H [facility] Stop: 03/28/24 07:59 Last Admin: 02/27/24 08:29 Dose: 1 mls/min Levothyroxine Sodium (Levothyroxine Sodium 200 Mcg Tablet) 200 mcg PO DAILYBB [facility] Stop: 03/28/24 06:29 Last Admin: 02/27/24 06:04 Dose: 200 mcg Losartan Potassium (Losartan Potassium 50 Mg Tab) 50 mg PO [facility] Stop: 03/28/24 08:59 Last Admin: 02/27/24 09:33 Dose: 50 mg Miscellaneous (Order Awaiting Action: Dabrafenib [Tafinlar] 75 Mg Capsule) 1 each N/A QS [facility] Stop: 03/28/24 07:59 Last Admin: 02/27/24 08:30 Dose: Not Given Miscellaneous (Order Awaiting Action: Rametinib [Mekinist] 2 Mg Tablet) 1 each N/A QS [facility] Stop: 03/28/24 07:59 Last Admin: 02/27/24 08:30 Dose: Not Given Multivitamins (Multivitamin Tab) 1 tab PO QAM [facility] Stop: 03/28/24 08:59 Last Admin: 02/27/24 09:33 Dose: 1 tab Nitroglycerin (Nitroglycerin Sl 0.4 Mg/Tab Tab) 0.4 mg SL Q5M PRN PRN Reason: Chest Pain Stop: 03/28/24 04:11 Ondansetron HCl (Ondansetron Inj 2 Mg/Ml 2 Ml Vial) 4 mg IV Q6H PRN PRN Reason: Nausea Stop: 03/28/24 04:11 Paroxetine HCl ([facility] Hcl 20 Mg Tab) [facility] [place]: 03/28/24 08:59 Last Admin: 02/27/24 09:33 Dose: 40 mg Triamcinolone Acetonide (Triamcinolone Acet 0.1% Cr 15 Gm Tube) 1 appln TOP BID [facility] Stop: 03/28/24 08:59 Last Admin: 02/27/24 09:35 Dose: 1 appln
[2024-02-27] MEDS: dexAMETHasone 4 MG in SYRINGE 0 ML IV SCH (08:29)
[2024-02-27] MEDS: MULTIVITAMIN TAB PO SCH (09:33)
[2024-02-27] MEDS: carBAMazepine XR 200 MG TABCR PO SCH (09:33)
[2024-02-27] MEDS: LOSARTAN POTASSIUM 50 MG TAB PO SCH (09:33)
[2024-02-27] MEDS: PARoxetine HCL 20 MG TAB PO SCH (09:33)
[2024-02-27] MEDS: TRIAMCINOLONE ACET 0.1% CR 15 GM TUBE TOP SCH (09:35)
--- NOTE | 2024-02-27 09:37 | Radiation OncologyConsultation ---
Date of Consultation February 27, 2024 Assessment & Plan (1) Melanoma metastatic to brain: Plan ATTENDING ADDENDUM Assessment: Ms. Garcia is a 63-year-old female who presents with a history of melanoma of the left leg treated with surgery and adjuvant Opdivo who more presented with a solitary brain metastasis status post resection Dr. Hand on 08/20/2021. The patient received adjuvant postoperative SRS completed in September 2021 followed by brain SBRT in July 2022 (2700 cGy, 3 fractions, 08/19/2022). The patient did have an increasing lesion involving the previously treated left frontal lobe and then underwent a neurosurgical procedure in August [address] Lawler at [facility]. The patient underwent ALYSHA and biopsy was performed which revealed no evidence of residual disease. More recently, the patient presented with altered mental status and was admitted to the hospital. The patient does have an MRI of the brain which does reveal an enlarging left frontal lobe lesion. We have been asked to evaluate the patient regarding the role of radiation therapy. Recommendation: Neurosurgical consultation. The patient was previously treated with fractionated radiosurgery to this left frontal lobe lesion and then underwent ALYSHA at [facility]. Neurosurgical consultation is required to determine role of further management. Plan: 1. No radiation therapy at this point. Will continue to monitor the patient's chart and document as needed. Please call us any further questions or concerns regarding the patient's case. 2. Recommendation for neurosurgical consultation. 3. Continue follow-up with medical oncology outpatient setting. 4. Continue all other medical management as per primary medical team. History of Present Illness Reason for Consultation: Brain metastasis Requesting Physician: Gabe Tejada DO Attending Physician: Gabe Murray DO History of Present Illness 12/2017. Malignant melanoma of the left leg. Status post resection with positive lymph node. 01/2018-03/2019. Treated with Opdivo. 08/17/2021. Emergency room evaluation for headache. Intraparenchymal hemorrhage in the right parieto-occipital region. 08/18/2021. Brain MRI. 3 cm enhancing mass with surrounding vasogenic edema posterior medial right parietal lobe. Associated internal hemorrhage. 08/09/2021. CT chest, abdomen and pelvis. No metastatic disease. 08/20/2021. Right parietal craniotomy. Malignant melanoma. 10/02/2021. Status post completion of postoperative radiation therapy. She received 3140 cGy. 09/2021. Initiation of oral chemotherapy with Dabrafinib and trametinib. 12/15/2021. Emergency room evaluation due to seizure. MRI of the brain. Within the right posterior parietal lobe at the area of the previously identified hemorrhage there is a 3.0 x 1.7 cm.T2 hyperintense, T1 hypointense focus demonstrating a surrounding hemosiderin ring and mild surrounding enhancement. The central components demonstrate restricted diffusion. Therefore, this is indeterminate and could represent old hemorrhage, posttreatment changes related to underlying metastatic lesion, or possibly an intracerebral abscess given the associated restricted diffusion. The vasogenic edema within the right parietal lobe has improved in the interval. 03/08/2022. Brain MRI. Slight increased right parasagittal parietal enhancement at the superior aspect of the surgical resection site with slight interval increase in frontal parietal vasogenic edema since 12/06/2021 with mild local mass-effect. Findings are relatively nonspecific and may represent a combination of posttreatment change and or viable tumor. 03/19/2022. Dabrafenib 75 mg twice daily. Trametinib 1.5 mg daily. Dose decreased due to side effect of fatigue. 04/02/2022. PET/CT. Expected postsurgical changes in the right frontal parietal craniotomy for tumor resection. No focal areas of increased radiotracer activity in the head. No focal areas of increased radiotracer uptake concerning for malignancy. 07/18/2022. MRI of the brain. New focus of enhancement and intrinsic T1 shortening measuring 5 mm in the left frontal lobe is likely reflective of a new focus of metastatic disease. Mild contraction of blood products in the left parietal resection cavity with persistent enhancement at the anterior margin of the cavity and mildly reduced surrounding T2 signal change. Again this may reflect evolution of posttreatment changes, although residual tumor could appear similar. 08/19/2022. Status post completion of stereotactic radiation therapy to the brain lesion. She received 2700 cGy. Treatment given in 3 fractions. 02/27/2023. Medical oncology follow-up. Dr. Benja Watkins. Continue on Dabrafenib 75 mg twice daily/Trametinib 1.5 mg daily. Patient offered treatment break and declined. MRI brain and PET/CT scan pending. Return to clinic for follow-up evaluation. 04/22/2023. MRI brain. IMPRESSION 1 Subtle interval increase in size of the 5 mm enhancing lesion in the left frontal lobe, with increased perilesional edema. 2 Stable postsurgical changes of right craniotomies and resection of a right parietal lobe lesions. Enhancement associated with the medial parietal lobe resection site and extent of T2/FLAIR signal in the right cerebral hemisphere appears unchanged. 3. Additional stable chronic findings, as discussed 04/29/2023. PET/CT. IMPRESSION: No FDG PET-CT evidence for recurrence of melanoma. 07/01/2023. Brain MRI. 1. Continued slight interval increase in size of subcentimeter metastatic lesion in the left frontal lobe, with similar perilesional edema. 2. Stable postsurgical and treatment related changes in the right parietal lobe with no new suspicious lesions identified. 07/24/2023. Neurosurgical follow-up (Dr. Hand). Review of the MRI. Changes are noted. 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 If this would continue to increase possible biopsy. Recommendation for MRI in 3 to 4 months. 08/22/2023. Brain MRI. 1. Continued interval increase in size of the enhancing left frontal lobe lesion that now measures 9 mm x 8 mm, previously measuring 5 mm x 5 mm. Increased edema along the margin of the lesion. 2. Postsurgical changes of right parietal craniotomy with a right parietal lobe resection cavity. Stable irregular enhancement seen along the medial right parietal lobe compared with the prior MRI. Stable T2 prolongation seen within the right parietal lobe compared with the prior MRI. 08/26/2023. Multidisciplinary neuro-oncology tumor board. Recommendation for ALYSHA with biopsy for question radiation necrosis versus active metastatic lesion. This will be arranged at [facility]. 08/28/2023. Multidisciplinary brain and spine tumor board. Radiation oncology perspective. No radiation this time. Planning to have ALYSHA,. 09/08/2023. Biopsy of left frontal lesion with subsequent ALYSHA. Path report revealed brain, left frontal biopsy: Minute fragment of brain parenchyma with reactive gliosis. Negative for malignancy. 02/04/2024. Medical oncology follow-up (Dr. Karson Watkins).Dabrafenib 75 mg twice a day and Trametinib 1.5 mg daily. 02/26/2024. Patient was brought to the emergency room due to confusion. 02/26/2024. CT of the cervical spine. Postsurgical spine. 5-6 mm C3 vertebral anterolisthesis. A 3 mm C2 vertebral anterolisthesis. 02/26/2024. Head CT. Moderately large size area of vasogenic edema with ill-defined borderline hyperdense regions and small oval-shaped foci of calcification seen in the left frontotemporal lobes, metastatic lesions versus posttraumatic in nature. Moderate size cortical hypodensity in the right parietal lobe, likely postsurgical encephalomalacia Right parietal/occipital craniotomy. 02/26/2024. CT of the abdomen and pelvis. No CT evidence of abdominal/pelvic solid organ injury. No free intraperitoneal air, free fluid or acute fracture seen. 02/26/2024. CT of the chest. No evidence of acute traumatic intrathoracic injury. Cardiomegaly. Bilateral bronchial wall cuffings, mild pulmonary interstitial/septal thickening and mildly prominent peripheral pulmonary vessels, question mild chronic congestion in the appropriate clinical context. 02/27/2024. Radiation oncology consultation (Dr. Nazanin Watkins/[facility]). Patient continues to have expressive aphasia today. She does not recall being in the e mergency room. She does not recall her prior radiation therapies. She denies any headache. She is currently on dexamethasone. An MRI of the brain has been ordered. 02/27/2024. MRI brain. 1. Enhancing mass in the right frontal lobe with surrounding prominent vasogenic edema is concerning for or malignancy, favored to represent metastasis. 2. Postoperative changes in the right posterior calvarium. No evidence of recurrent disease at that site. Allergies Allergy/AdvReac Type Severity Reaction Status Date / Time erythromycin base Allergy Unknown BROUGHT ON Verified 11/19/22 14:03 SEIZURES Macrolide Antibiotics Allergy Unknown Unknown Verified 11/19/22 14:03 Home Medications Medication Instructions Recorded Confirmed Type levothyroxine 200 mcg tablet 200 mcg PO DAILYBB 08/17/21 02/27/24 History (Euthyrox) trazodone 100 mg tablet 150 mg PO HS 08/17/21 02/27/24 History multivitamin 1 tab PO QAM 08/30/21 02/27/24 History paroxetine HCl 40 mg tablet 40 mg PO QAM 08/30/21 02/27/24 History ondansetron HCl 8 mg tablet 8 mg PO BID 12/15/21 02/27/24 History dabrafenib 75 mg capsule (Tafinlar) 75 mg PO AMHS 07/30/22 02/27/24 History trametinib 2 mg tablet (Mekinist) 1.5 mg PO DAILY 07/30/22 02/27/24 History carbamazepine 200 mg 400 mg PO AMHS 11/19/22 02/27/24 History tablet,extended release,12 hr atorvastatin 20 mg tablet 20 mg PO QPM 02/27/24 02/27/24 History losartan 50 mg tablet 50 mg PO QAM 02/27/24 02/27/24 History triamcinolone acetonide 0.1 % 1 applic topical BID 02/27/24 02/27/24 History topical cream Patient History Medical History History of melanoma Lesion of brain (08/05/12) Melanoma metastatic to brain No pertinent past medical history Seizure disorder Surgical History H/O craniotomy History of back surgery History of brain surgery x2 History of knee replacement procedure of left knee History of partial hysterectomy Hx of cholecystectomy Status post right foot surgery Family History Grandfather (Maternal) Cancer Breast cancer Sister Cancer Breast cancer Father Cancer Colon cancer Social History Smoking Status: Unknown if ever smoked Tobacco Type: Cigarettes Cigarettes Per Day: 13; Hx Alcohol Use: No Hx Substance Use: No Preferred Language: Bulgarian Communication Ability: Impaired Visual Impairment: No Limitations Hearing Ability: Normal Slate Cutter Required: No Beliefs That Will Affect Care: None marital status: Current Living Situation: Spouse current occupational status: employed current occupation: [employer] Other Information That Helps Us Care for You: No Feels Safe at Home: Yes Physical Activity Frequency: Does not Exercise Assistive Devices: Glasses Radiation History Diagnosis: 2018. Melanoma of left leg. 2021. Metastatic melanoma to brain. Treatment: 12/2017. Malignant melanoma of the left leg. Status post resection with positive lymph node. 01/2018-03/2019. Treated with Opdivo. 08/20/2021. Right parietal craniotomy. Malignant melanoma. 10/02/2021. Status post completion of postoperative radiation therapy. She received 3140 cGy. 09/2021. Initiation of oral chemotherapy with Dabrafinib and trametinib. 03/19/2022. Dabrafenib 75 mg twice daily. Trametinib 1.5 mg daily. Dose decreased due to side effect of fatigue. 08/19/2022. Status post completion of stereotactic radiation therapy to the brain lesion. She received 2700 cGy. Treatment given in 3 fractions. Review of Systems Review of Systems: 13 point review of systems complete. Heladio dominique denies any issues. She is continue to have confusion. Physical Exam Physical Exam: Continued confusion. Constitutional: WD/WN, vitals as above Eyes: PERRL, conjunctivae normal, anicteric sclerae ENMT: Ears: no hearing impairment Neck: trachea midline, no thyromegaly Respiratory: normal respiratory effort, lungs clear to auscultation Cardiovascular: RRR, no murmur, no edema Gastrointestinal (Abdomen): normal bowel sounds, soft, nontender, no hepatosplenomegaly Skin: no rashes, warm and dry Neurologic: PERRL, EOMI, accommodation nl, no face palsy, no dysarthria + confused Speech / Cognition: normal speech Motor/Sensory: no tremor and normal movement Psychiatric: A+Ox3, euthymic affect Results (Rad Onc) Pathology Results: were reviewed and pertinent findings noted in HPI Imaging Studies: were reviewed and pertinent findings noted in HPI Time Spent Midlevel I spent [20] minutes in preparation for this follow up evaluation including reviewing all the clinical records, reviewing laboratory studies, pathology reports and imaging results. I spent [15] minutes with direct face to face interaction with the patient and/or family including performing a physical exam and answering all questions. I spent [15] minutes documenting this patient's visit. Attending I spent 10 minutes in preparation for this consultation including reviewing all the clinical records, reviewing laboratory studies, pathology reports and imaging results. I spent 10 minutes with direct face to face interaction with the patient and/or family including performing a physical exam and answering all questions. I spent 10 minutes documenting this patient's visit. PG Care Time/CCT Total # of Minutes Spent Total Time Spent with Patient: Total time spent is greater than 50% in coordination of care (as documented) at patient's floor/unit and/or counseling patient: Coding [place] [address] IN/OBS CONSULT LVL 5,80M Patient Type Established History Problem Focused Exam Problem Focused Medical Decision Making Moderate Complexity Diagnoses Melanoma metastatic to brain C79.31
--- NOTE | 2024-02-27 10:00 | Electrocardiogram Report ---
Test Reason : Blood Pressure : */* mmHG Vent. Rate : 73 BPM Atrial Rate : 73 BPM P-R Int : 216 ms QRS Dur : 86 ms QT Int : 402 ms P-R-T Axes : 43 25 66 degrees QTcB Int : 442 ms Sinus rhythm with 1st degree A-V block Abnormal ECG Confirmed by Dre Serrano ([id number]) on 02/27/2024 9:59:33 AM Referred By: REFERRED SELF Confirmed By: Dre Serrano
[2024-02-27 11:22] LABS: Appearance Urine Clear (Clear); Bacteria Urine Automated None Seen (None Seen); Bilirubin Urine Negative (Negative); Blood Urine 1+ (Negative); Cast Urine Automated 0-2 /lpf (0-2); Color Urine Yellow; Epithelial Cell Urine Auto 0-2 /hpf (0-2); Glucose Urine UA Negative (Negative); Ketones Urine Trace (Negative); Leukocyte Esterase Urine Negative (Negative); Nitrite Urine Negative (Negative); Protein Urine 3+ (Negative); Specific Gravity Urine 1.031 (1.000-1.030); Urobilinogen Urine Negative (Negative); WBC Urine Automated 0-5 /hpf (0-5); pH Urine 6.5 (4.5-7.5)
[2024-02-27] MEDS: POTASSIUM CHLORIDE CRTAB 20 MEQ TABCR PO STA (11:49)
[2024-02-27] MEDS: GADOBUTROL 65ML VIAL IV ONE (12:38)
--- NOTE | 2024-02-27 13:07 | Magnetic Resonance Report ---
MR brain wo/w con CLINICAL HISTORY: brain lesion. hx of brain met TECHNIQUE: Multiplanar and multisequence MR images of the brain were obtained prior to and following administration of gadolinium contrast. Comparison: Comparison is made to MRI brain 12/15/[address] 02/26/2024 FINDINGS: No abnormal restricted diffusion is identified. Vasogenic edema is in the left frontal lobe surroundi ng an enhancing lesion measuring 17 mm in diameter. Encephalomalacia in the postsurgical site in the right parietal lobe with adjacent craniectomy. There is no mass effect or midline shift. Susceptibili ty artifact is seen at the enhancing lesion as well as in the surgical site on the right. No extra ax ial fluid collections are seen. The corpus callosum, pituitary gland, and cerebellar tonsils appear g rossly unremarkable. Flow voids of the major intracranial arterial vessels are identified. The imaged portions of the para nasal sinuses, mastoid air cells, and orbits are unremarkable. IMPRESSION: 1. Enhancing mass in the right frontal lobe with surrounding prominent vasogenic edema is concerning for or malignancy, favored to represent metastasis. 2. Postoperative changes in the right posterior calvarium. No evidence of recurrent disease at that site. ACT 112: Negative or not required by law. Electronically signed by: Seun Gaspar M.D. 02/27/2024 1:06 PM
--- NOTE | 2024-02-27 13:55 | Hospitalist Progress Note ---
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 Also noted to have significantly elevated troponin. Patient is critically ill with expressive aphasia and other neurological findings most likely related to her metastatic brain lesion and vasogenic edema. Also demand ischemia myocardial infarction. She requires hospital level care including specialty consultation and interventions. Communication with cardiology, due to patient's metastatic brain lesion high risk for intracranial hemorrhage. Hesitant to even start aspirin. Continue current medications and treat non-STEMI medically without any type of antiplatelet or anticoagulant. Patient not a candidate for interventional cardiology Communication with radiation oncology. They reviewed MRI images. Recommend no radiation treatments without first being evaluated by neurosurgery Continue IV Decadron Continue other medications Communication with speech therapy, patient able to eat at bedside, updated him on the patient's conditions and imaging findings. Also started early discussions of goals of care. He states that he would want all interventions and treatments available to be pursued for her. Communication out to neurosurgery at [facility] where she has a previous brain resection. Awaiting reply. 63 minutes spent on coordinating care, reviewing records, communication with specialists and family Admission and Anticipated Discharge Date Admission Date: February 27, 2024 Subjective Patient with expressive aphasia. Is able to answer some simple yes and no questions. Denies pain, denies shortness of breath. Later in the day at bedside Physical Exam Physical Exam: Constitutional: Alert, nontoxic HEENT: Mucous membranes moist. Lungs: Clear to auscultation, decreased, no wheezes rales or rhonchi CV: S1-S2, regular Abdomen: Soft, nontender, nondistended Extremities: No significant edema Neuro: Expressive aphasia, questionable receptive aphasia, difficult to assess. Moves all 4 extremities, decreased coordination Psych: Cooperative, normal mood Results & Data Results & Data Vital Signs (Past 12 Hours) Vital Signs Temp Pulse Pulse Resp BP Pulse Ox Pulse Ox 02/27/24 11:01 37.1 C 69 16 149/81 H 96 02/27/24 09:00 02/27/24 08:20 36.7 C 71 17 145/87 H 97 02/27/24 04:15 02/27/24 04:15 36.9 C 74 18 145/88 H 02/27/24 04:12 36.9 C 74 18 145/88 H 98 02/27/24 04:12 88 L 02/27/24 04:00 74 02/27/24 04:00 99 02/27/24 03:05 68 16 121/90 92 02/27/24 02:38 66 02/27/24 01:56 77 16 114/76 94 O2 Del Method O2 Del Method O2 Flow Rate O2 Flow Rate 02/27/24 11:01 Nasal Cannula 1 02/27/24 09:00 Nasal Cannula 1 02/27/24 08:20 Nasal Cannula 1 02/27/24 04:15 Nasal Cannula 2 02/27/24 04:15 Nasal Cannula 2 02/27/24 04:12 Nasal Cannula 2 02/27/24 04:12 Room Air 02/27/24 04:00 02/27/24 04:00 Nasal Cannula 2 02/27/24 03:05 Room Air 02/27/24 02:38 02/27/24 01:56 Room Air Diagnostic Findings Reviewed imaging, laboratory and diagnostic studies. Pertinent findings as below. MRI images reviewed personally, obvious edema and lesion in the left frontal lobe. Reviewed report Potassium 3.2 Troponins noted, trending downward TSH 0.043 Echocardiogram reviewed, septal wall motion abnormality, normal ejection fraction Personally reviewed EKG tracing, evidence of Q-wave in septal infarct in V2
--- NOTE | 2024-02-27 14:43 | Electrocardiogram Report ---
Test Reason : Blood Pressure : */* mmHG Vent. Rate : 77 BPM Atrial Rate : 77 BPM P-R Int : 218 ms QRS Dur : 92 ms QT Int : 420 ms P-R-T Axes : -20 0 95 degrees QTcB Int : 475 ms Sinus rhythm with 1st degree A-V block Abnormal ECG When compared with ECG of 26-Feb-2024 23:26, No significant change was found Confirmed by Dre Serrano ([id number]) on 02/27/2024 2:42:53 PM Referred By: REFERRED SELF Confirmed By: Dre Serrano
[2024-02-27] MEDS: LORazepam 0.5 MG TAB PO PRN (15:34)
[2024-02-27] MEDS: ATORVASTATIN 20 MG TAB PO SCH (20:34)
[2024-02-28] MEDS: LEVOTHYROXINE SODIUM 175 MCG TABLET PO SCH (06:23)
[2024-02-28 06:33] LABS: Hematocrit (blood only) 35.6 % (37.0-47.0); Hemoglobin 11.9 g/dl (12.0-16.0); Immature Granulocytes # (auto) 0.03 K/uL (0.01-0.20); Immature Granulocytes % (auto) 0.5 %; Lymphocytes # (auto) 0.59 K/uL (1.20-3.40); Lymphocytes % (auto) 9.3 %; Mean Corpuscular Hemoglobin 30.9 pg (25.0-34.0); Mean Corpuscular Hgb Conc 33.4 g/dL (32.0-36.0); Mean Corpuscular Volume 92.5 fL (80.0-100.0); Mean Platelet Volume 9.3 fL (9.4-12.4); Monocytes # (auto) 0.24 K/uL (0.11-0.59); Monocytes % (auto) 3.8 %; Neutrophils # (auto) 5.51 K/uL (1.40-6.50); Neutrophils % (auto) 86.4 %; Platelet Count 260 K/uL (130-400); RDW Coefficient of Variation 14.1 % (11.5-14.5); RDW Standard Deviation 47.8 fL (36.4-46.3); Red Blood Count 3.85 M/uL (4.20-5.40); White Blood Count 6.37 K/ul (4.8-10.8)
[2024-02-28 06:48] LABS: BUN Creatinine Ratio 21.9 (10-20); Calcium 8.3 mg/dl (8.6-10.3); Creatinine Clr Calc Pharmacy 69.3 ml/min; Est GFR (African American) 108.5 ml/min; Est GFR (Non-African American) 93.6 ml/min; Magnesium 1.7 mg/dl (1.7-2.4); Potassium 3.9 mmol/L (3.5-5.1)
[2024-02-28] MEDS: HALOPERIDOL LACTATE 5 MG/ML 1 ML VIAL IM STA (07:35)
--- NOTE | 2024-02-28 12:50 | Hospitalist Progress Note ---
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 It seems to have improved with the treatment of Decadron. Communication with her neurosurgeon yesterday, they have arranged for her to have an appointment on Friday in their office. Recommended optimizing her here in the hospital and discharging so they can follow-up with them outpatient. Okay to MedSurg, discontinue telemetry Transition to oral Decadron Add Pepcid for GI protection Continue therapies Extensive conversation with the patient's and stepson at bedside. Discussed with them plans for her to see neurosurgeon outpatient. Goal will be to get her discharged so she can follow-up with them as scheduled. Also started to discuss goals of care, answered this stepson's questions about prognosis, preliminarily discussed what hospice means and hospice criteria is. Case management to confirm outpatient follow-up Confirm neurosurgical appointment at [place] on 03/01/2024 at 10:15 AM 57 minutes spent coordinating care, communication with family and patient at bedside, really reviewing EMR and data and documentation Admission and Anticipated Discharge Date Admission Date: February 27, 2024 Subjective Patient seems to be able to express herself a bit better today. She denies any pain, no shortness of breath. Nursing reports that at times she still is a bit restless and pulls at some of her seizure precaution pads and medical devices. Physical Exam Physical Exam: Constitutional: Alert HEENT: Mucous membranes moist. Lungs: Clear to auscultation, decreased, no wheezes rales or rhonchi CV: S1-S2, regular Abdomen: Soft, nontender, nondistended Extremities: No significant edema Neuro: Expressive aphasia seems to be a little bit improved. Coordination appears to be improved compared to yesterday Psych: Cooperative, normal mood Results & Data Results & Data Vital Signs (Past 12 Hours) Vital Signs Temp Pulse Pulse Resp BP Pulse Ox O2 Del Method 02/28/24 10:06 71 02/28/24 08:00 Room Air 02/28/24 07:51 36.9 C 74 16 143/85 H 96 Room Air 02/28/24 04:12 02/28/24 04:00 36.6 C 86 19 138/87 91 Room Air O2 Del Method 02/28/24 10:06 02/28/24 08:00 02/28/24 07:51 02/28/24 04:12 Room Air 02/28/24 04:00 Diagnostic Findings Reviewed imaging, laboratory and diagnostic studies. Pertinent findings as below. Reviewed MRI report Reviewed CBC and BMP, if stable
[2024-02-28] MEDS: dexAMETHasone 4 MG TAB PO SCH (15:58)
[2024-02-28] MEDS: DABRAFENIB MESYLATE PO SCH (15:59)
[2024-02-28] MEDS: LORazepam 0.5 MG TAB PO PRN (16:00)
[2024-02-28] MEDS: TRAMETINIB DIMETHYL SULFOXIDE PO SCH (16:01)
[2024-02-28 16:07] VITALS: RESP 17
[2024-02-28 19:39] VITALS: TEMP 97.9
[2024-02-28] MEDS: FAMOTIDINE 20 MG TAB PO SCH (21:45)
[2024-02-29 02:24] LABS: Appearance Urine Cloudy (Clear); Bacteria Urine Automated 4+ (None Seen); Bilirubin Urine Negative (Negative); Blood Urine 1+ (Negative); Cast Urine Automated 0-2 /lpf (0-2); Color Urine Yellow; Epithelial Cell Urine Auto 0-2 /hpf (0-2); Glucose Urine UA Negative (Negative); Ketones Urine Negative (Negative); Leukocyte Esterase Urine 3+ (Negative); Nitrite Urine Negative (Negative); Protein Urine Trace (Negative); RBC Urine Automated 0-2 /hpf (0-2); Specific Gravity Urine 1.009 (1.000-1.030); Urobilinogen Urine Negative (Negative); WBC Urine Automated 21-50 /hpf (0-5); pH Urine 6.5 (4.5-7.5)
[2024-02-29] MEDS: cefTRIAXone SODIUM 2,000 MG/50 ML BAG IV SCH (04:16)
[2024-02-29 07:31] VITALS: PULSE 63; O2SAT 94
--- NOTE | 2024-02-29 08:44 | Discharge Summary ---
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 Head imaging showed increasing size of presumed metastatic melanoma lesion with vasogenic edema. Patient was admitted to the hospital. Additional laboratory workup showed a significant increase in troponins as well. Due to the high risk of bleeding in her brain she was not placed on any anticoagulation or antiplatelets. MRI of the brain confirmed an increasing size of the brain lesion. Patient does have a history of metastatic melanoma and is presumed that this is a med melanotic lesion as well. She was seen by cardiology. [place] as though she had a demand ischemia myocardial infarction. Echocardiogram did show some septal wall motion abnormality but ejection fraction was normal. EKG did show evidence of Q waves in V2. They recommended ongoing medical management as able but due to her risk of intracranial hemorrhage even held off on antiplatelets.Patient was seen by radiation oncology. Patient had been treated with previous lesions with radiation. After MRI was reviewed they recommended patient follow-up with neurosurgery before considering any type of radiation therapy. Her neurosurgeon Vince French was contacted. He recommended continue to stabilize patient with steroids and discharge home to have quick follow-up in their office to discuss possible surgical intervention. Additional laboratory studies show TSH is suppressed, her Synthroid dose was decreased. Will need to consider rechecking TSH in approximately 4 to 6 weeks. Care management was involved in the patient's care. Patient was seen by therapies. Family was at the bedside throughout her stay. There is extensive conversations had with the patient and son at the bedside concerning the findings and plan for their to follow-up with her neurosurgeon outpatient. She was transition to oral steroids. Her expressive aphasia and her ataxia did improve throughout her hospitalization as she was on the steroids. She did have some intermittent confusion most likely again due to the metastatic lesion, vasogenic edema as well as now the steroids. Urine culture is pending. Urinalysis was slightly abnormal she was given 1 dose of IV Rocephin and will continue a short course of oral Keflex for presumed urinary tract infection. Was coordinated for her to see her neurosurgeon on 03/01/2024 at approximately 10 AM in [place]. Patient family is aware of this appointment. They felt confident in being able to care for her at home and get her to this appointment. Further plans of care will really depend on what the recommendations are from her neurosurgeon and then possible additional recommendations from oncology, radiation oncology. Otherwise patient will follow-up with her PCP and other specialists as already coordinated. Notes For Next Care Provider Follow-up with neurosurgeon as coordinated on 03/01/2024 Will need additional follow-up with oncology and radiation oncology Consider TSH in 4 to 6 weeks Medication Changes From Visit Decadron added for management of edema and inflammation surrounding left frontal brain lesion Synthroid dose decreased Keflex added for UTI Admission HPI Per Admitting Provider 63-year-old female with past med history significant for hyperlipidemia, chronic hyponatremia, centrilobar emphysema, hypertension, history of CAD, history of mild valvular heart disease, history of drug-induced hepatitis, history of left- sided lacunar infarction, history of seizures, history of malignant melanoma metastatic to brain, depression, tobacco use disorder, lives with her ambulates with a walker was brought in by because of fall and imaging studies showing brain lesion. As per she was walking out of the house yesterday night and she fell and had black and blue on his lesion her left eye. No loss of consciousness. Was able to get up. states patient told him that she was doing fine he did not bring her in the morning. But she was getting confused last 2 days. Not eating much. So decided to bring to the hospital. No complaint of headache or chest pain as per . No nausea. No diarrhea or constipation per . Patient is oriented to name only. States mostly no to all the questions. Patient has history of melanoma involving left leg s/p resection on 12/26/2017. And positive for left inguinal lymph node. Patient was on immunotherapy and completed in 2018. In August 09 she was in the ER for headache and imaging studies shows intraparenchymal hemorrhage in the right parietal occipital region. And brain MRI showed 3 cm enhancing mass with surrounding vasogenic edema posterior to the medial right parietal lobe associated with internal hemorrhage. She is status post right parietal l craniotomy lesion was malignant melanoma. Status post completion of postoperative radiation therapy. And was initiation on oral chemotherapy with dabrafenib and trametinib. In November 2021 patient was evaluated in the ER for seizures. Brain MRI showed vasogenic edema was improved right parietal lobe. And possible old hemorrhage and postoperative changes seen in underlying metastatic lesion. In June 2022 MRI of the brain showed new focus measuring 5 mm in the left frontal lobe likely reflective of a new focus of metastatic disease And she was status post completion of stereotactic radiation therapy to the brain lesion. she had a PET scan on April 29 2023 with no evidence of recurrent myeloma and an MRI on April 22, 2023 showed subtle interval increase in size of the 5 mm enhancing lesion in the left frontal lobe with increased perilesional edema. 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 Repeat MRI on 02/20/2024 showed 1.9 cm lesion in left frontal lobe with surrounding vasogenic edema and mild mass effect and recommended short interval follow-up with postcontrast and perfusion imaging. There is also a plan for PET scan. Past medical history. As mentioned above Past surgical history. Colonoscopy. Cystoscopy. Laparoscopic cholecystectomy. Skin lesion excision from left lower leg in 2017. Craniotomy and brain tumor excision in 2021. Excision of malignant trunk arm. Total abdominal hysterectomy with removal of tubes. Social history. . Smoked 0.5 pack a day for 20 years. Quit around 2007. Smoking on and off as per [employer]. Alcohol occasional. No drug use. Family history. Maternal aunt had breast cancer. Mother had breast cancer. A- fib. Father had CAD s/p stent in his 60s. Sister had breast cancer. Admission Exam Per Admitting Provider I refer you to the H&P Discharge Exam Constitutional: Alert HEENT: Mucous membranes moist. Lungs: Clear to auscultation, decreased, no wheezes rales or rhonchi CV: S1-S2, regular Abdomen: Soft, nontender, nondistended Extremities: No significant edema Neuro: Expressive aphasia has significantly improved, seems as though receptive aphasia has almost completely resolved. Ataxia and coordination has significantly improved Psych: Cooperative, normal mood Updated Medication List Medication Instructions Recorded Confirmed Type levothyroxine 200 mcg tablet 200 mcg PO DAILYBB 08/17/21 02/27/24 History (Euthyrox) trazodone 100 mg tablet 150 mg PO HS 08/17/21 02/27/24 History multivitamin 1 tab PO QAM 08/30/21 02/27/24 History paroxetine HCl 40 mg tablet 40 mg PO QAM 08/30/21 02/27/24 History ondansetron HCl 8 mg tablet 8 mg PO BID 12/15/21 02/27/24 History dabrafenib 75 mg capsule (Tafinlar) 75 mg PO AMHS 07/30/22 02/27/24 History trametinib 2 mg tablet (Mekinist) 1.5 mg PO DAILY 07/30/22 02/27/24 History carbamazepine 200 mg 400 mg PO AMHS 11/19/22 02/27/24 History tablet,extended release,12 hr atorvastatin 20 mg tablet 20 mg PO QPM 02/27/24 02/27/24 History losartan 50 mg tablet 50 mg PO QAM 02/27/24 02/27/24 History triamcinolone acetonide 0.1 % 1 applic topical BID 02/27/24 02/27/24 History topical cream cephalexin 250 mg capsule 250 mg PO TID #12 caplets 02/29/24 Rx dexamethasone 4 mg tablet 6 mg (1.5 x 4 mg) PO Q8H 30 days 02/29/24 Rx #135 tabs famotidine 20 mg tablet 20 mg PO BID 30 days #60 tabs 02/29/24 Rx levothyroxine 175 mcg tablet 175 mcg PO DAILYBB 30 days #30 tabs 02/29/24 Rx (Synthroid) lorazepam 0.5 mg tablet 0.5 mg PO Q6H PRN anxiety #10 tabs 02/29/24 Rx Hospital Stay Data Consultations 02/27/24 01:28 ED Decision to Admit Stat 02/27/24 08:00 Consult Cardiology Routine Consult Radiation Oncology Routine 02/29/24 08:04 Burn CD for patient Routine Diagnostic Imagining Performed Reviewed imaging, laboratory and diagnostic studies. Pertinent findings as below. MRI brain shows 17 mm left frontal lesion with significant vasogenic edema, I refer you to full report for details Troponin peaked at 1238, declined to 646 TSH 0.043 Hemoglobin 11.9, WBC 6.37 Creatinine 0.64 Electrolytes improved and stable 02/26/24 22:48 CT cervical spine wo con Stat CT head/brain wo con Stat 02/26/24 22:49 CT abd pelvis IV con only Stat CT chest diagnostic w con Stat 02/27/24 04:12 MRI Brain [MR brain wo/w con] Urgent Pending Results Patient Have Any Pending Studies at Discharge: Yes Discharge Instructions Given to Patient (Per Discharging Provider) It is extremely important that you make the appointment scheduled for you in [place] tomorrow at approximately 10 AM with the brain multidisciplinary team Visit Information Date & Time 03/01/2024 10:15 AM Provider [facility] Total Time Total Time Spent Total Time Spent (In Minutes): 43
[2024-02-29 10:50] VITALS: BP 126/74
== END 2024-02-29 12:19 | disposition home or self-care (01) | DRG 54 ==
LOC: ED 22:41 → 2E 02-27 02:26 → 3E 02-28 15:28

== ENCOUNTER 2024-04-11 10:55 | Inpatient (IN) ==
--- OUTSIDE RECORDS SUMMARY | 2024-04-11 11:02 | External Medical Summary | Summary of Care ---
Author Name Unknown Organization [facility] Address [address] [place] [address] Phone [phone] Care Team Providers Care Senior Financial Consultant Name Role Phone Martin Solorio MD Primary Care Provider [phone] Reason for Visit * Reason Onset Date Comments Advice 03/16/2024 Appt. dated Encounter Details Date Type Department Care Team (Late st Contact Info) Description 03/16/2024 Telephone Neurology, [place] [address], [place] [id number] Clinic, Brain Tumor Multidisciplinary [address] [place] [address] Advice (Appt. dated) Allergies Active Allergy Reactions Criticality Noted Date Comments Erythromycin 08/15/1997 seizures documented as of this encounter (statuses as of 03/16/2024) Medications Medication Sig Dispensed Refills Start Date [...] the morning. 90 Tablet 5 10/27/2023 Active Triamcinolone Acetonide 0.1 % External Cream [...] OF TAFINLAR 60 Tablet 2 02/11/2024 Active LORazepam 0.5 MG Oral Tablet (Ativan) 02/29/2024 Active Levothyroxine Sodium 175 MCG Oral Tablet (Levoxyl) Take 1 Tablet by mouth daily first thing in the morning. (at least 30 min prior to breakfast or other meds) Active Cephalexin 250 MG Oral Capsule (Keflex) Take 1 Capsule by mouth in the morning and 1 Capsule at noon and 1 Capsule before bedtime. 02/29/2024 Active Famotidine 20 MG Oral Tablet (Pepcid) 02/29/2024 Active documented as of this encounter (statuses as of 03/16/2024) Active Problems Problem Noted Date Diagnosed Date 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 Cerebral atrophy 09/30/2023 Left sided lacunar infarction 09/30/2023 Spinal stenosis of cervical region 09/30/2023 Coronary artery disease invo lving [place] coronary artery of [place] heart without angina pectoris 09/30/2023 Pulmonary nodules [...] as of this encounter (statuses as of 03/16/2024) Resolved Problems Problem Noted Date Diagnosed Date [...] as of this encounter (statuses as of 03/16/2024) Immunizations Name Administration Dates Next Due COVID-19, [...] the money to buy more. Never true 03/11/20 24 Within the past 12 months, t he food you bought just didn't last and you didn't have money to get more. Never true 03/11/2024 Childcare Answer Date Recorded Do you feel overwhelmed with taking care of a child, family member or friend? No 03/11/2024 Does your family need help f inding childcare? (Household - for ages 0-17 years) Not on file 03/11/2024 Clothing Answer Date Recorded Have you been unable to get clothing when it was really needed? No 03/11/2024 Is your family able to get c lothes or diapers when needed? (Household - for ages 0-17 years) Not on file 03/11/2024 Personal Safety Answer Date Recorded Do you feel unsafe or have concerns for your saf ety? No 03/11/2024 Do you have concerns for you r family's safety? (Household - for ages 0-17 years) Not on file 03/11/2024 Utilities Answer Date Recorded Do you have trouble paying y our heating, water, or electric bill? No 03/11/2024 Is your family able to pay t he heat, water, or electric bill? (Household - for ages 0-17 years) Not on file 03/11/2024 Does your family have access to good internet? (Household - for ages 0-17 years) Not on file 03/11/2024 Employment Status Answer Date Recorded Are you unemployed or without regular income? No 03/11/2024 Does the household have a re gular source of income? (Household - for ages 0-17 years) Not on file 03/11/2024 Social Connections Answer Date Recorded How often do you feel lonely or isolated from those around you? Sometimes 03/11/2024 Financial Resource Strain Answer Date R ecorded Do you have any trouble payi ng for your medications, or do you think you might in the future? No 03/11/2024 Does your family have troubl e paying for medicine? (Household - for ages 0-17 years) Not on file 03/11/2024 Transportation Needs Answer Date Record ed READ ONLY Do you have troubl e getting a ride to medical visits or work? Never True 03/11/2024 Does your family have a hard time getting a ride to doctors visits? (Household - for ages 0-17 years) Not on file 03/11/2024 Has lack of transportation k ept you from medical appointments, meetings, work, or from getting things needed for daily living? Check all that apply. No 03/11/2024 Do you (or your family) have trouble finding or paying for a ride (transportation)? (Household - for ages 0-17 years) Not on file 03/11/2024 Housing Stability Answer Date Recorded Do you currently live in a s helter or have no steady place to sleep at night? No 03/11/2024 READ ONLY Do you think you a re at risk of becoming homeless? No 03/11/2024 Does your family worry about paying for your home or becoming homeless? (Household - for ages 0-17 years) Not on file 0 03/11/2024 Are you homeless or worried that you might be in the future? No 03/11/2024 Are you (or your family) walt eless or worried that you might be in the future? (Household - for ages 0-17 years) Not on file Food Insecurity Answer Date Recorded Do you need food for this week? No 03/11/2024 Are you able to get enough f ood for your family? (Household - for ages 0-17 years) Not on file 03/11/2024 Does your family need food t his week? (Household - for ages 0-17 years) Not on file 03/11/2024 Do you always have enough fo od for your family? (Household - for ages 0-17 years) Not on file 03/11/2024 Sex and Gender Information Value Date Recorded [...] deaf or do you have serious difficulty h earing? No 03/01/2024 Are you blind or do you have serious difficulty seeing, even when wearing glasses? No 03/01/2024 Do you have serious difficul ty walking or climbing stairs? (5 years old or older) Yes 03/01/2024 Do you have difficulty dress ing or bathing? (5 years old or older) Yes 03/01/2024 Because of a physical, menta l, or emotional condition, do you have difficulty doing errands alone such as visiting a doctor s office or shopping? (15 years old or older) Yes 03/01/20 Cognitive Status Response Date of Assessm ent Because of a physical, menta l, or emotional condition, do you have serious difficulty concentrating, remembering, or making decisions? (5 years old or older) Yes 03/01/2024 documented as of this encounter Miscellaneous Notes * Telephone Encounter - Kori Bailey LPN - 03/16/2024 8:02 AM EDT Received a message from patient's Kwame stating that they weren't sure when her appointmentwith Dr. Watkins is, is it the or 4th? Requested I call him back at [phone]. Called Kwame back, no answer, left message stating that she is scheduled with Dr. Benja Watkins in Hem/Onc on 05/06/24 in [place]. I also stated that she is to be contacted to schedule an appointment with Dr. Dk Watkins in Rad Onc. Requested they call me at [phone] with any questions or if they don't hear from Rad Onc. To schedule appointment. documented in this encounter Plan of Treatment Upcoming Encounters Date Type Department Care Team (Late st Contact Info) Description 04/06/2024 9:45 AM EDT Pharm[facility] [place] [address] [place] [address] [facility] Hem/Onc [address] [place] [address] 05/06/2024 2:45 PM EDT Office Visit Hematology/Oncology [facility] [address] [place] [phone] Benja Watkins MD [address] [place] [address] 07/05/2024 9:45 AM EST Office Visit Neurosurgery, [place] [address], [place] [id number] Clinic, Brain Tumor Multidisciplinary [address] [place] [address] 08/02/2024 8:20 AM EST Office Visit [facility] [address] [place] [phone] Martin Solorio MD [address], [place] [id number] 10/05/2024 12:30 PM EDT Telemedicine Care at Home [address], [place] [phone] Kori Dumont PA-C [address], [place] [id number] 02/14/2025 8:00 AM EDT Imaging Radiology [address] [id number] Scheduled Procedures Name Priority Associated Diagnoses Date/Ti me COLONOSCOPY FLEXIBLE PROXIMA L DIAGNOSTIC Recall Family history of colon cancer Health Maintenance Due Date Last Done Comments Alpha-1 Antitrypsin 1976 Cologuard 2003 Fecal Occult Blood Test 2003 Sigmoidoscopy 2003 COVID-19 Vaccine ( season) 2023 06/26/2023, 12/14/2021, 2021, Additional history exists Influenza Vaccine (FLU shot) (#1) 2024 03/08/2023, 04/04/2021, 04/04/2021, Additional history exists Pneumococcal Vaccine: 65+ Years (3 of 3 - PPSV23 or PCV20) 07/15/2024 03/08/2023, 04/22/2022, 04/22/2022, Additional history exists Postponed from 05/03/2023 (Patient Declined After Education) DXA Scan 07/20/2024 Postponed from 2023 (Patient Declined After Education) HIV Screening 07/20/2024 Postponed from 1973 (Patient Declined After Education) Hepatitis C Screening 07/20/2024 Postpo luiz from 1976 (Patient Declined After Education) Depression Screening 09/10/2024 09/10/2023 DISCUSS TOBACCO CESSATION (REFER TO SMARTSET #2460) 01/28/2025 01/29/2024 TSH 01/28/2025 01/29/2024, 07/21, 07/25/2023, Additional history exists Mammogram 02/12/2025 02/13/2024, 01/19, 02/06/2021, Additional history exists GFR 03/01/2025 03/01/2024, 01/18, 09/03/2023, Additional history exists O2 ASSESSMENT COMPLETED IN PAST YEAR FOR COPD 03/03/2025 03/03/2024 Colonoscopy 06/05/2026 06/05/2021, 05/21, 08/10/2010 Colorectal Cancer Screening 06/05/2026 Albumin/Creatinine Ratio 07/25/2026 07/25/2023 DTap/Tdap Vaccines (2 - Td or Tdap) 02/20/2031 [...] this encounter Medical Devices Implanted Type Area Faucets Assembler Device Identifier Shelf Expiration Date Model / Serial / Lot Cover Nilda Hole 24mm 421.528 - [id number] Implanted:Qty: 1 on 08/20/2021 by Joni Hand III, MD at [place] [facility] [place] Right: Head [employer]ES MAXILLOFACIAL 421.528 / / Plate Y Ti Lo Db 6h 21 421.517 - [id number] Implanted:Qty: 1 on 08/20/2021 by Joni Hand III, MD at [place] [facility] [place] Right: Head [employer]ILL[employer]IAL 421.517 / / Screw Ti Lo Pro Sd 4mm 400.834 - [id number] Implanted:Qty: 10 on 08/20/2021 by Joni Hand III, MD at [place] [facility] [place] Right: Head [employer]ILL[employer] 400.834 / / Cement Hydroset Injectable 5cc - [id number] Implanted:Qty: 1 on 03/03/2024 by Joni Hand III, MD at [place] [facility] [place] Left: Head SUZANNA [id number] 09/19/2025 [id number] / / [id number] Cover Bur Hol Ti Lo 17 421.527 - [id number] Implanted:Qty: 1 on 03/03/2024 by Joni Hand III, MD at [place] [facility] [place] Left: Head [employer] 421.527 / / Plate Ti Lo Pro Str 2h 421.502 - [id number] Implanted:Qty: 2 on 03/03/2024 by Joni Hand III, MD at [place] [facility] [place] Left: Head [employer] 421.502 / / Screw 4mm Ti Low Pro Sdrill - [id number] Implanted:Qty: 7 on 03/03/2024 by Joni Hand III, MD at [place] [facility] [place] Left: Head [employer] 400.834E / / documented as of this encounter Advance Directives * Full Code (Latest Code Status on File) Date Activated Date Inactivated Comments 03/01/2024 12:22 PM 03/04/2024 7:09 PM This order reflects the patients wishes and were consensually agreed upon. Question Answer Comments Discussion of Advance Directives occurred with: Patient * Full Code Date Activated Date Inactivated Comments 09/08/2023 10:37 [...] patients wishes and were consensually agreed upon. Care Teams Senior Financial Consultant Relationship Specialty Start Date End Date Martin Solorio MD [address] [place] [address] PCP - General Family Medicine 02/20/21 documented as of this encounter
--- OUTSIDE RECORDS SUMMARY | 2024-04-11 11:02 | External Medical Summary | Summary of Care ---
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) Procedures MRI NEURO 3-D RECONSTRUCTION José Luis Paul IV, PA-C [address] [place] [address] Referral ID Status Reason Start Date Expiration Date V isits Requested Visits Authorized [id number] Authorized 06/21/2024 999 999 * Precert (Within 10 days (routine)) - Pending Review Specialty Diagnoses / Procedures Referred By Bere rivera Referred To Contact Radiology Diagnoses 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) Procedures MRI BRAIN W WO CONTRAST José Luis Paul IV, PA-C [address] [place] [address] Referral ID Status Reason Start Date Expiration Date V isits Requested Visits Authorized [id number] Pending Review 06/21/2024 999 999 Reason for Visit * Reason Comments Return Neuro Encounter Details Date Type Department Care Team (Late st Contact Info) Description 03/15/2024 10:15 AM EDT Office Visit Neurosurgery, [place] [address] [place] [address] Clinic, Brain Tumor Multidisciplinary [address] [place] [address] Metastasis to brain (HCC)*; Secondary malignant neoplasm of brain (HCC) Allergies Active Allergy Reactions Criticality Noted Date Comments Erythromycin 08/15/1997 seizures documented as of this encounter (statuses as of 03/23/2024) Medications Medication Sig Dispensed Refills Start Date [...] as of this encounter (statuses as of 03/23/2024) Active Problems Problem Noted Date Diagnosed Date 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 Cerebral atrophy 09/30/2023 Left sided lacunar infarction 09/30/2023 Spinal stenosis of cervical region 09/30/2023 Coronary artery disease invo lving [place] coronary artery of [place] heart without angina pectoris 09/30/2023 Pulmonary nodules [...] as of this encounter (statuses as of 03/23/2024) Resolved Problems Problem Noted Date Diagnosed Date [...] as of this encounter (statuses as of 03/23/2024) Immunizations Name Administration Dates Next Due COVID-19, [...] lent, No Preserve, IM 03/08/2023 Seasonal Influenza, Trivalen t, (IIV3), PF, (Fluzone) 06/07/2016,06/08/2015 TD, Preservative Free 04/20/2007 TDAP (age [...] Sign Reading Time Taken Comments Blood Pressure 132/66 03/15/2024 9:46 AM EDT Pulse 69 03/15/2024 9:46 AM EDT Temperature - - Respiratory Rate - - Oxygen Saturation 96% 03/15/2024 9:46 AM EDT Inhaled Oxygen Concentration - - Weight 59.1 kg (130 lb 4.8 oz) 03/15/2024 9:46 A M EDT Height - - Body Mass Index 23.83 03/10/2024 2:45 PM EDT documented in this encounter Functional Status [...] Yes 03/01/2024 documented as of this encounter Patient Instructions * Patient Instructions* Kori Bailey LPN - 03/15/2024 10:22 AM EDT You were seen today by the Brain Tumor Multidisciplinary Clinic at [facility]. You were seen today by Dr. Hand (Neurosurgery) and, Dr. Epstein (Radiation Oncology) and Dr. Bowden (Neuro Oncology) History: Metastatic Melanoma to brain Imaging Review: We reviewed your pathology. Treatment Plan: SRS Referrals placed: [place] for Radiation Therapy Dr. Dk Watkins Return 3 months post completion of radiation therapy. If you have any questions after today's visit, please contact our clinic at [phone]. You may ask to be connected to the Neuro Oncology team, or they will refer your message to us so we may respond in a timely manner. Thank you! documented in this encounter Progress Notes * Grazyna Bowden MD - 03/15/2024 10:52 AM EDT Images from the original note were not included. Brain Tumor MDC--Medical Oncology Note Name: Judy Garcia Date: 03/15/2024 Primary Care Provider: Martin Solorio MD DIAGNOSIS and Treatment History: Treatment Summary Malignant melanoma of left lower extremity (HCC) 12/26/2017 Initial Diagnosis Malignant melanoma of left lower extremity (HCC) 01/26/2018 - 03/29/2019 Chemotherapy NIVOLUMAB 240 mg D 1,15 (6 Cycles/28 Days) [id number] 09/17/2021 - Chemotherapy DABRAFENIB (TAFINLAR) & TRAMETINIB (MEKINIST) [id number] Malignant 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) 08/17/2021 Initial Diagnosis Brain metastasis (HCC) 08/20/2021 [...] S/p post-op RT to resection cavity at [facility] 07/18/2022 Progression IMPRESSION 1. New focus of [...] could appear similar. 08/13/2022 - 08/19/2022 Radiation 03/03/2024 Surgery L frontal resection by Dr. Hand 03/03/2024 Molecular Testing Results Final Diagnosis A. Brain, left frontal tumor, resection: -- Residual/recurrent metastatic melanoma. Microscopic Description The patient's history of metastatic melanoma is noted. The direct smears and H&E sections demonstrate many large, occasionally plasmacytoid tumor cells with pleomorphic nucleoli including binucleate forms. Melanin pigment and endothelial wrapping by tumor cells is also present. Adjacent uninvolved brain parenchyma is present. Immunohistochemical stains are performed on block A1 and controls stain appropriately. PRESENTING PROBLEM: pt with metastatic melanoma, f/u HPI: Judy is recenlty s/p surgery for resection of left frontal lesion, she is doing well. She hasn't had new CHANG/ weakness, seizures, dizziness, blurred vision, nausea, vomiting.She did have a fall, seems to be an unrelated event. ROS: pertinent positive/negative noted above. 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7 Epilepsy HTN, goal below 130/80 10/09/2018 Hypercholesteremia Hypothyroidism due to medication 2023-07-31 Adding E03.2-Hypothyroidism due to medication Dx to History OTHER 2004 athritis OTHER 2005 Kidney stones Skin cancer 2017 PAST SURGICAL HISTORY: Past Surgical History: Procedure Laterality Date ANESTHESIA FOR OPEN HEAD SURGERY 1995 for seizure control - successful BX LYMPH NODE-SUPERFIC Left 12/26/2017 BIOPSY LYMPH NODE OPEN SUPERFICIAL performed by Saw Arevalo MD at OR [facility] CHEMOTHERAPY for skin cancer from 2017 COLONOSCOPY, DIAGNOSTIC (RECTUM) 08/10/2010 diverticula COLONOSCOPY, DIAGNOSTIC (RECTUM) 06/05/2021 internal hemorrhoids/recall 5 years/COLONOSCOPY FLEXIBLE PROXIMAL DIAGNOSTIC performed by Sharon Vázquez MD at ENDOSCOPY [facility] CYSTOSCOPY 10/2005 Dr. Bone INFORMATION Left 11/14/2017 Skin lesion excised from left lower leg, in-office performed by Dr. Kelton Gillis 11/14/2017 LAPAROSCOPY, CHOLECYSTECTOMY WITH CHOLANGIOGRAPHY 01/25/2004 Laparoscopic cholecystectomy with cholangiogram at [facility] with Dr. Julian MICROSURGERY ADD-ON Left 03/03/2024 MICROSURGICAL SURGERY REQUIRING MICROSCOPE LISTED SEPARATELY performed by Yazan JOHNSON, Joni Andino [place] [facility] [place] SURGERY NEC N/A 09/08/2023 UNLISTED PROCEDURE NERVOUS SYSTEM performed by Bereket Lawler MD at OR [facility] REMOVAL OF TONSILS, AGE 12+ 2003 REMOVE SUPRATENTORIAL BRAIN TUMOR Right 08/20/2021 CRANIOTOMY BONE FLAP EXCISION BRAIN TUMOR SUPRATENTORIAL performed by Joni Hand III, [place] [facility] REMOVE SUPRATENTORIAL BRAIN TUMOR Left 03/03/2024 CRANIOTOMY BONE FLAP EXCISION BRAIN TUMOR SUPRATENTORIAL performed by Joni Hand III, [facility] [place] [facility] RMV MALG LSN TRK/ARM/LG 1.1-2C Left 12/26/2017 EXCISION MALIGNANT TRUNK ARM LEG 1.1 TO 2CM performed by Saw Arevalo MD at OR [facility] STEREOTACTIC CRANIAL INTRADURAL NAVIGATION Left 03/03/2024 STEREOTACTIC CRANIAL INTRADURAL NAVIGATION performed by Yazan JOHNSON, Joni Andino MD [place] [facility] TOTAL ABD HYSTERECTOMY W/WO REMOVAL OF TUBE(S) 2000 partial [facility] SOCIAL HISTORY: Social History Tobacco Use Smoking status: Every Day Current packs/day: 0.50 Average packs/day: 0.5 packs/day for 20.0 years (10.0 ttl pk-yrs) Types: Cigarettes Smokeless tobacco: Never Tobacco comments: quit 1995;Pt started smoking last year. quit on 09/01/2007, smoking on and off Vaping Use Vaping status: Every Day Substances: Nicotine, Flavoring Devices: Pre-filled or refillable cartridge, Pre-filled pod Substance Use Topics Alcohol use: Never Comment: occassionally Drug use: No FAMILY HISTORY: Family History Problem Relation Name Age of Onset Heart Disorder Father stented age 60's Heart Disorder Mother a fib in 60's Breast Cancer Mother 80 Breast Cancer Sister 58 Breast Cancer Sister 62 Breast Cancer Aunt (Maternal) Current Outpatient Medications Medication Sig Dispense Refill [...] mouth in the morning. 90 Tablet 5 Triamcinolone Acetonide 0.1 % External Cream (Aristocort) [...] TO ADMINSTRATION OF TAFINLAR 60 Tablet 2 LORazepam 0.5 MG Oral Tablet (Ativan) Levothyroxine Sodium 175 MCG Oral Tablet (Levoxyl) Take 1 Tablet by mouth daily first thing in the morning. (at least 30 min prior to breakfast or other meds) Cephalexin 250 MG Oral Capsule (Keflex) Take 1 Capsule by mouth in the morning and 1 Capsule at noon and 1 Capsule before bedtime. Famotidine 20 MG Oral Tablet (Pepcid) No current facility-administered medications for this visit. ALLERGIES: Review of patient's allergies indicates: Allergen Reactions Erythromycin seizures PHYSICAL EXAMINATION: Vitals Reviewed as documented in the chart GEN: Well nourished, sitting up comfortably in NAD HEENT: Crani scar, CDI+ No pallor, conjunctival injection, sclerae anicteric Neck supple, no JVD, thryomegaly Chest: non labored breathing, symm expansion Extr: warm , well perfused, + Edema Neuro: AAOX3, Speech fluent Face Symmetric See detailed neuro exam from notes from same day Psych: appropriate mood and affect LABS: Reviewed as documented in the chart IMAGES: Personally reviewed and discussed in MDC IMPRESSION and PLAN: Ida is a 63 year old woman with cutaneous melanoma with brain mets October 2017 --diag with superficial spreading melanoma of the left leg, [id number], Stage IIIc. 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 S/p re-excision and SLNB 12/26/2017 (-margins; 3 of 3 nodes involved) S/p nivolumab 02/04 - 04/08 S/p right parietal craniotomy for near total resection 08/20/2021 S/p Radiation therapy to brain mets, including post op bed; Aug -September 2021 S/p dabrafinib and trametinib 10/09 --dose reduced in mid 2021; ongoing Rx Jul 2022--SRS to left frontal lobe Aug 2023--s/p ALYSHA and bx of Left Frontal mass. Path-- brain parenchyma with reactive gliosis.Negative for malignancy. MRI feb 20, 2024--Parenchymal abnormality at the treatment site measuring 1.9 cm, not fully characterized. Surrounding vasogenic edema and mild mass effect, increased since pretreatment imaging. 03/03/2024--s/p L frontal craniotomy for resection ( Dr Hand) ; path showed Residual/recurrent metastatic melanoma Current systemic rx--dabrafinib and trametinib She is doing wll post op, Path results were d/w pt and relevant questions answered Her CT CAP did not show POD/New lesions--will f/u with Dr Watkins and consider getting Pet/CT as nextimaging Discussed role of SRS, Dr Epstein spoke with Dr Irina Watkins for continuation of care Plan d/w pt and family, all questions answered and f/u arranged Patient Active Problem List Diagnosis Adjustment disorder [...] of cervical region Coronary artery disease involving [place] coronary artery of [place] heart without angina pectoris Pulmonary nodules Centrilobular emphysema (HCC) Left atrial enlargement Mild mitral regurgitation Mild tricuspid regurgitation Mild pulmonary valve regurgitation Metastasis to brain (HCC) The patient was seen in multi-disciplinary clinic, I personally reviewed the relevant labs/medications/pathology and imaging studies and discussed and developed plan of care in co-ordination and withinput from other providers. Plan and recommendations were discussed with the pt and their family, all questions were answered and instructions for follow up provided. Grazyna Bowden MD Department of Medical Oncology 03/15/2024 * Joni Hand III, MD - 03/15/2024 10:50 AM EDT NSGY Attending Attestation I have reviewed the advanced practitioner's documentation (José Luis Paul PA-C) on the date of servicereferenced in note, and I agree with, and take responsibility for the plan of care. Ida is recovering from her surgery and is almost off steroids. We reviewed the path of residual melanoma. We discussed redo SRS to the area as a very reasonable option. Her CT of the body was otherwise negative. We reviewed postop care and wound concerns. We spoke with Dr. Watkins of [facility] out in [place] and he is in agreement with repeat SRS. All questions were answered. WE will see her back after a repeat MRI 3 mo after SRS. Joni Hand III, MD, PhD 03/15/2024 10:57 AM * José Luis Paul IV, PA-C - 03/15/2024 10:47 AM EDT Images from the original note were not included. HISTORY & PHYSICAL EXAMINATON - Neurosurgery -- Brain Tumor [facility] [address] Name: Judy Garcia Date: 03/15/24 Time: 10:47 AM Primary Care Provider: Martin Solorio MD PRESENTING PROBLEM: Recurrent L frontal brain metastasis from melanoma 03/03/24 - Dr. Hand left frontal craniotomy for tumor resection with vycor tube and dynamic retraction, use of brainlabneuronavigation, use of neurophysiological monitoring (SSEP/MEP/motor language, subcortical stimulation) HPI: Judy Garcia is a 63 year old, right handed female who presents in tumor MDC for post operativefollow up of a recurrent L frontal lesion s/p SRS and ALYSHA. She is finishing up steroid taper. She reports one fall since discharge d/t Left leg giving out according to her. Ida denies any pain, seizures, dizziness, blurred vision, nausea, vomiting, change in bowel or bladder habitus; personality or memory. Treatment Summary Malignant melanoma of left lower extremity (HCC) 12/26/2017 Initial Diagnosis Malignant melanoma of left lower extremity (HCC) 01/26/2018 - 03/29/2019 Chemotherapy NIVOLUMAB 240 mg D 1,15 (6 Cycles/28 Days) [id number] 09/17/2021 - Chemotherapy DABRAFENIB (TAFINLAR) & TRAMETINIB (MEKINIST) [id number] Malignant 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) 08/17/2021 Initial Diagnosis Brain metastasis (HCC) 08/20/2021 [...] S/p post-op RT to resection cavity at [facility] 07/18/2022 Progression IMPRESSION 1. New focus of [...] could appear similar. 08/13/2022 - 08/19/2022 Radiation 03/03/2024 Surgery L frontal resection by Dr. Hand 03/03/2024 Molecular Testing Results Final Diagnosis A. Brain, left frontal tumor, resection: -- Residual/recurrent metastatic melanoma. Microscopic Description The patient's history of metastatic melanoma is noted. The direct smears and H&E sections demonstrate many large, occasionally plasmacytoid tumor cells with pleomorphic nucleoli including binucleate forms. Melanin pigment and endothelial wrapping by tumor cells is also present. Adjacent uninvolved brain parenchyma is present. Immunohistochemical stains are performed on block A1 and controls stain appropriately. 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7 Epilepsy HTN, goal below 130/80 10/09/2018 Hypercholesteremia Hypothyroidism due to medication 2023-07-31 Adding E03.2-Hypothyroidism due to medication Dx to History OTHER 2004 athritis OTHER 2005 Kidney stones Skin cancer 2017 PAST SURGICAL HISTORY: Past Surgical History: Procedure Laterality Date ANESTHESIA FOR OPEN HEAD SURGERY 1995 for seizure control - successful BX LYMPH NODE-SUPERFIC Left 12/26/2017 BIOPSY LYMPH NODE OPEN SUPERFICIAL performed by Saw Arevalo MD at OR [facility] CHEMOTHERAPY for skin cancer from 2017 COLONOSCOPY, DIAGNOSTIC (RECTUM) 08/10/2010 diverticula COLONOSCOPY, DIAGNOSTIC (RECTUM) 06/05/2021 internal hemorrhoids/recall 5 years/COLONOSCOPY FLEXIBLE PROXIMAL DIAGNOSTIC performed by Sharon Vázquez MD at ENDOSCOPY [facility] CYSTOSCOPY 10/2005 Dr. Bone INFORMATION Left 11/14/2017 Skin lesion excised from left lower leg, in-office performed by Dr. Kelton Gillis 11/14/2017 LAPAROSCOPY, CHOLECYSTECTOMY WITH CHOLANGIOGRAPHY 01/25/2004 Laparoscopic cholecystectomy with cholangiogram at [facility] with Dr. Julian MICROSURGERY ADD-ON Left 03/03/2024 MICROSURGICAL SURGERY REQUIRING MICROSCOPE LISTED SEPARATELY performed by Joni Hand III, [place] [facility] [place] SURGERY NEC N/A 09/08/2023 UNLISTED PROCEDURE NERVOUS SYSTEM performed by Bereket Lawler MD at OR [facility] REMOVAL OF TONSILS, AGE 12+ 2003 REMOVE SUPRATENTORIAL BRAIN TUMOR Right 08/20/2021 CRANIOTOMY BONE FLAP EXCISION BRAIN TUMOR SUPRATENTORIAL performed by Joni Hand III, [place] [facility] REMOVE SUPRATENTORIAL BRAIN TUMOR Left 03/03/2024 CRANIOTOMY BONE FLAP EXCISION BRAIN TUMOR SUPRATENTORIAL performed by Joni Hand III, [facility] [place] [facility] RMV MALG LSN TRK/ARM/LG 1.1-2C Left 12/26/2017 EXCISION MALIGNANT TRUNK ARM LEG 1.1 TO 2CM performed by Saw Arevalo MD at OR [facility] STEREOTACTIC CRANIAL INTRADURAL NAVIGATION Left 03/03/2024 STEREOTACTIC CRANIAL INTRADURAL NAVIGATION performed by Joni Hand III, MD at [facility] TOTAL ABD HYSTERECTOMY W/WO REMOVAL OF TUBE(S) 1999 partial [facility] SOCIAL HISTORY: Social History Socioeconomic History Marital status: Spouse name: Kwame Number of children: 2 Years of education: Not on file Highest education level: Not on file Occupational History Occupation: [employer] 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 quit on 09/01/2007, smoking on and off Vaping Use Vaping status: Every Day Substances: Nicotine, Flavoring Devices: Pre-filled or refillable cartridge, Pre-filled pod Substance and Sexual Activity Alcohol use: Never Comment: occassionally Drug use: No Sexual activity: Yes Partners: Male Other Topics Concern Not on file Social History Narrative Not on file Social Determinants of Health Financial Resource Strain: Low Risk (03/11/2024) Financial Resource Strain Do you have any trouble paying for your medications, or do you think you might in the future? (Adult - for ages 18 years and over): No Does your family have trouble paying for medicine? (Household - for ages 0-17 years): Not on file Food Insecurity: No Food Insecurity (03/11/2024) Food Insecurity Do you need food for this week? (Adult - for ages 18 years and over): No Are you able to get enough food for your family? (Household - for ages 0-17 years): Not on file Does your family need food this week? (Household - for ages 0-17 years): Not on file Do you always have enough food for your family? (Household - for ages 0-17 years): Not on file Transportation Needs: No Transportation Needs (03/11/2024) Transportation Needs Do you have trouble getting a ride to medical visits or work? (Adult - for ages 18 years and over):Never True Does your family have a hard time getting a ride to doctors visits? (Household - for ages 0-17 years): Not on file Has lack of transportation kept you from medical appointments, meetings, work, or from getting things needed for daily living? Check all that apply. (Adult - for ages 18 years and over): No Do you (or your family) have trouble finding or paying for a ride (transportation)? (Household - for ages 0-17 years): Not on file Social Connections: Socially Integrated (03/11/2024) Social Connections How often do you feel lonely or isolated from those around you? (Adult - for ages 18 years and over): Sometimes Housing Stability: Low Risk (03/11/2024) Housing Stability Do you currently live in a custodial or have no steady place to sleep at night? (Adult - for ages 18 years and over): No Do you think you are at risk of becoming homeless? (Adult - for ages 18 years and over): No Does your family worry about paying for your home or becoming homeless? (Household - for ages 0-17 years): Not on file Are you homeless or worried that you might be in the future? (Adult - for ages 18 years and over): No Are you (or your family) homeless or worried that you might be in the future? (Household - for ages0-17 years): Not on file FAMILY HISTORY: Family History Problem Relation Name Age of Onset Heart Disorder Father stented age 60's Heart Disorder Mother a fib in 60's Breast Cancer Mother 80 Breast Cancer Sister 58 Breast Cancer Sister 62 Breast Cancer Aunt (Maternal) Current Outpatient Medications Medication Sig Dispense Refill [...] mouth in the morning. 90 Tablet 5 Triamcinolone Acetonide 0.1 % External Cream (Aristocort) [...] TO ADMINSTRATION OF TAFINLAR 60 Tablet 2 LORazepam 0.5 MG Oral Tablet (Ativan) Levothyroxine Sodium 175 MCG Oral Tablet (Levoxyl) Take 1 Tablet by mouth daily first thing in the morning. (at least 30 min prior to breakfast or other meds) Cephalexin 250 MG Oral Capsule (Keflex) Take 1 Capsule by mouth in the morning and 1 Capsule at noon and 1 Capsule before bedtime. Famotidine 20 MG Oral Tablet (Pepcid) No current facility-administered medications for this visit. ALLERGIES: Review of patient's allergies indicates: Allergen Reactions Erythromycin seizures ROS: A ROS was reviewed and are only positive for the above noted pertinent complaints PHYSICAL EXAMINATION: Visit Vital Signs: BP 132/66 | Pulse 69 | Wt 59.1 kg (130 lb 4.8 oz) | SpO2 96% | BMI 23.83 kg/m | BSA 1.61 m Gen: Pt found sitting in chair; NAD Ext: Warm, dry and intact Lungs: respiring comfortably Heart: normal sounds Psych: Pleasant and cooperative Neuro: AOx3 Cranial Nerves: No cranial neuropathy Diane spontaneously and to command Diffuse weakness with mild R hemiparesis Sensation equal and intact throughout BUE/BLE Mild R drift drift Gait deferred, Walker IMAGES: none new IMPRESSION and PLAN: 63 yo with melanoma s/p multimodality therapy, with symptomatic L frontal lesion no s/p resection. [place] [facility] follow up with us [place] [facility] after radiation. Patient Active Problem List Diagnosis Adjustment disorder [...] of cervical region Coronary artery disease involving [place] coronary artery of [place] heart without angina pectoris Pulmonary nodules Centrilobular emphysema (HCC) Left atrial enlargement Mild mitral regurgitation Mild tricuspid regurgitation Mild pulmonary valve regurgitation Metastasis to brain (HCC) José Luis Paul IV, PA-C 03/15/2024 10:47 AM * Olga Epstein MD - 03/15/2024 10:15 AM EDT RADIATION ONCOLOGY FOLLOW UP NOTE [facility] - Radiation Oncology PATIENT NAME: Judy Garcia PATIENT DIAGNOSIS: 63 year old female with history of superficial spreading melanoma of the left leg, [id number], Stage IIIc, diagnosed via excision 11/14/2017 (negative [...] 09/11/2021 - 10/02/2021 to the postop bed ([facility]) S/p dabrafinib and trametinib 10/09 S/p 27 Gy / 3 fx 08/13/2022 - 08/19/2022 left frontal lobe ([facility]) S/p left frontal craniotomy for tumor resection on 03/03/24 INTERVAL HISTORY: Judy Garcia is a seen today in the multidisciplinary brain clinic. She underwent a left frontal craniotomy for tumor resection on 03/03/24. She has recovered well from surgery. Brain MRI post-operatively on 03/04/2024 showed pInterval postoperative changes of left frontal craniotomy for resection of the previously-ablated left frontal lobe tumor are noted with associated postsurgical blood products, pneumocephalus, and marginal diffusion restriction. Thin enhancement at the periphery of the resection cavity, possibly reflecting prior post-ablation changes or postsurgicalblood-brain barrier disruption. Pathology showed residual/recurrent metastatic melanoma. She is over all feeling well today. RADIOLOGY/LABORATORY DATA: As in HPI Review of patient's allergies indicates: Allergen Reactions Erythromycin seizures MEDICATIONS: Current Outpatient Medications Medication Sig Dispense Refill Atorvastatin Calcium 20 MG Oral Tablet (Lipitor) Take 1 Tablet by mouth every evening. 90 Tablet 3 carBAMazepine ER 200 MG Oral Tablet Extended Release 12 Hour (Tegretol-Xr) TAKE 2 TABLETS BY MOUTH IN THE MORNING AND 2 IN THE EVENING Cephalexin 250 MG Oral Capsule (Keflex) Take 1 Capsule by mouth in the morning and 1 Capsule at noon and 1 Capsule before bedtime. Dabrafenib Mesylate 75 MG Oral Capsule (Tafinlar) Take 1 Capsule by mouth in the morning and 1 Capsule before bedtime. 120 Capsule 5 Famotidine 20 MG Oral Tablet (Pepcid) Levothyroxine Sodium 175 MCG Oral Tablet (Levoxyl) Take 1 Tablet by mouth daily first thing in the morning. (at least 30 min prior to breakfast or other meds) LORazepam 0.5 MG Oral Tablet (Ativan) Losartan Potassium 50 MG Oral Tablet (Cozaar) Take 1 Tablet by mouth in the morning. 90 Tablet 3 MULTIVITAMINS PO TABS Take 1 Tablet by mouth every morning. 0 Ondansetron HCl 8 MG Oral Tablet (Zofran) TAKE 1 TABLET BY MOUTH TWICE DAILY 30 MIN PRIOR TO ADMINSTRATION OF TAFINLAR 60 Tablet 2 PARoxetine HCl 40 MG Oral Tablet (pAXil) TAKE 1 TABLET BY MOUTH IN THE MORNING 90 Tablet 1 Trametinib Dimethyl Sulfoxide 0.5 MG Oral Tablet (Mekinist) Take 3 tablets (1.5mg) by mouth in the morning. 90 Tablet 5 traZODone HCl 100 MG Oral Tablet (Desyrel) TAKE 1 & 1/2 (ONE & ONE-HALF) TABLETS BY MOUTH AT BEDTIME 45 Tablet 5 Triamcinolone Acetonide 0.1 % External Cream (Aristocort) Apply topically to affected area 2 times a day. To affected area. 80 g 5 No current facility-administered medications for this visit. REVIEW OF SYSTEMS: As in HPI PHYSICAL EXAM: VS: There were no vitals taken for this visit. Physical Exam Constitutional: General: She is not in acute distress. Eyes: Extraocular Movements: Extraocular movements intact. Pulmonary: Effort: Pulmonary effort is normal. No respiratory distress. Neurological: Mental Status: She is alert and oriented to person, place, and time. Cranial Nerves: No cranial nerve deficit. Motor: Weakness (R sided) present. ASSESSMENT/PLAN: Judy Garcia is a seen today in the multidisciplinary brain clinic. She is s/pLeft frontal tumor resection on 03/03/24 and recovering very well. MRI done on 03/04/2024 shows post-op changes and a thin rim of enhacement in the tumor bed. Pathology shows recurrent/residual melanoma. CT CAP did not show systemic evidence of disease, as such the left frontal lobe resected metastases represents her only active site of disease on MRI brain and CT CAP. As such, we recommend adjuvant SRS. I recommend a fractionated course of SRS (5 Fx) to decrease the risk of radiation necrosis. I discussed with the pt that since she had prior SRS to this area, there might be an increased risk for radiation necrosis. However, given that this is here only known site of disease at this time, the benefits of adjuvant SRS in decreasing the risk of local recurrence outweight the possible risks (especially that most of the previously radiated left frontal tissue was resected). She wishes to have her SRS closer to home with Dr. Watkins who has previously treated her. We were able to discuss with Dr. Watkins as well who agreed with our recommendation for adjuvant SRS. She will e scheduled for follow up with him. We will see her in [facility] follow up in 3 months with repeat MRI brain. Signed by: Olga Epstein MD 03/15/24 documented in this encounter Plan of Treatment Upcoming Encounters Date Type Department Care Team (Late st Contact Info) Description 04/06/2024 9:45 AM EDT Pharmacy Pharmacy Hematology Oncology [facility], [place] [address] [place] [address] [facility], [facility] Hem[facility]c [address] [facility] [place] [address] 05/06/2024 2:45 PM EDT Office Visit Hematology/Oncology [facility] [address] [place] [phone] Benja Watkins MD [address] [place] [address] 07/05/2024 9:45 AM EST Office Visit Neurosurgery, [place] [address] [place] [address] Clinic, Brain Tumor Multidisciplinary [address] [place] [address] 08/02/2024 8:20 AM EST Office Visit [facility] [address] [place] [phone] Martin Solorio MD [address] [place] [address] 10/05/2024 12:30 PM EDT Telemedicine Care at Home [address] [place] [address] Kori Dumont PA-C [address] [place] [address] 02/14/2025 8:00 AM EDT Imaging Radiology [address] [place] [address] Scheduled Orders Name Type Priority Associated Diagnoses Order Schedule MRI BRAIN W WO CONTRAST Medical Imaging Routine 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) Expected: 06/21/2024, Expires: 04/15/2025 MRI NEURO 3-D RECONSTRUCTION Medical Imaging Routine 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) Expected: 06/21/2024, Expires: 04/15/2025 Scheduled Procedures Name Priority Associated Diagnoses Date/Ti me COLONOSCOPY FLEXIBLE PROXIMA L DIAGNOSTIC Recall Family history of colon cancer Health Maintenance Due Date Last Done Comments Alpha-1 Antitrypsin 1976 Cologuard 2003 Fecal Occult Blood Test 2003 Sigmoidoscopy 2003 COVID-19 Vaccine ( season) 2024 06/26/2023, 12/14/2021, 2021, Additional history exists Influenza [...] CESSATION (REFER TO SMARTSET #3291) 01/28/2025 01/29/2024 TSH 01/28/2025 01/29/2024, 07/21, 07/25/2023, [...] this encounter Medical Devices Implanted Type Area Qi Specialist Device Identifier Shelf Expiration Date Model / Serial / Lot Cover Nilda Hole 24mm 421.528 - [id number] Implanted:Qty: 1 on 08/20/2021 by Joni Hand III[place] [facility] [place] SYNTHES MAXILLOFACIAL 421.528 / / Plate Y Ti Lo Db 6h 21 421.517 - [id number] Implanted:Qty: 1 on 08/20/2021 by Joni Hand III, [place] [facility] [place] Head SYNTHES MAXILLOFACIAL 421.517 / / Screw Ti Lo Pro Sd 4mm 400.834 - [id number] Implanted:Qty: 10 on 08/20/2021 by Joni Hand III, [place] [facility] [place] Head SYNTHES MAXILLOFACIAL 400.834 / / Cement Hydroset Injectable 5cc - [id number] Implanted:Qty: 1 on 03/03/2024 by Joni Hand III, [place] [facility] [place] Head SUZANNA [id number] 09/19/2025 [id number] / / [id number] Cover Bur Hol Ti Lo 17 421.527 - [id number] Implanted:Qty: 1 on 03/03/2024 by Joni Hand III, [place] [facility] [place] Head SYNTHES MAXILLOFACIAL 421.527 / / Plate Ti Lo Pro Str 2h 421.502 - [id number] Implanted:Qty: 2 on 03/03/2024 by Joni Hand III, [place] [facility] [place]: Head SYNTHES MAXILLOFACIAL 421.502 / / Screw 4mm Ti Low Pro Sdrill - [id number] Implanted:Qty: 7 on 03/03/2024 by Joni Hand III, [place] [facility] [place] Head SYNTHES MAXILLOFACIAL 400.834E / / documented as of this encounter Visit Diagnoses Diagnosis Metastasis to brain (HCC)- Primary 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 Care Teams Women'S Soccer Coach Relationship Specialty Start Date End Date Martin Solorio MD [address] [place] [address] PCP - General Family Medicine 02/20/21 documented as of this encounter"
--- OUTSIDE RECORDS SUMMARY | 2024-04-11 11:02 | External Medical Summary | Summary of Care ---
Author Name Unknown Organization [facility] Address [address] [place] [address] Phone [phone] Care Team Providers Care Ship Fitter Name Role Phone Martin Solorio MD Primary Care Provider [phone] Reason for Visit * Reason Comments Medication Management Encounter Details Date Type Department Care Team (Late st Contact Info) Description 04/06/2024 9:45 AM EDT Pharmacy Pharmacy Hematology Oncology [facility] [address] [place] [address] [facility], [facility] Hem/Onc [address] [place] [address] Malignant melanoma of left lower extremity (HCC)* Allergies Active Allergy Reactions Criticality Noted Date Comments Erythromycin 08/15/1997 seizures documented as of this encounter (statuses as of 04/06/2024) Medications Medication Sig Dispensed Refills Start Date [...] before bedtime. 120 Capsule 5 08/28/2023 Active Trametinib Dimethyl Sulfoxide 0.5 MG Oral [...] 20 MG Oral Tablet (Pepcid) 02/29/2024 Active PARoxetine HCl 40 MG Oral Tablet (pAXil)Indications: Adjustment disorder with depressed mood TAKE 1 TABLET BY MOUTH IN THE MORNING 90 Tablet 3 04/05/2024 Active documented as of this encounter (statuses as of 04/06/2024) Active Problems Problem Noted Date Diagnosed Date 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 Cerebral atrophy 09/30/2023 Left sided lacunar infarction 09/30/2023 Spinal stenosis of cervical region 09/30/2023 Coronary artery disease invo lving [place] coronary artery of [place] heart without angina pectoris 09/30/2023 Pulmonary nodules [...] as of this encounter (statuses as of 04/06/2024) Resolved Problems Problem Noted Date Diagnosed Date [...] as of this encounter (statuses as of 04/06/2024) Immunizations Name Administration Dates Next Due COVID-19, [...] Yes 03/01/2024 documented as of this encounter Progress Notes * Geri Acevedo, [facility] - 04/06/2024 11:18 AM EDT MEDICATION THERAPY MANAGEMENT DABRAFENIB & TRAMETINIB TREATMENT PROGRESS NOTE Judy Garcia [phone] Patient Phone Numbers : Kwame Communication: Left message requesting return call to assess toleration to therapy Treatment: Medication: Dabrafenib // Trametinib Indication: metastatic melanoma Dose: 75 mg BID // 1.5 mg daily ( 02/2022) Administration: empty stomach (1 hour before or 2 hours after a meal) Start Date: 10/04/21 Primary Tungsten Refiner/Oncologist: Dr. Noman Watkins Supportive Care Meds: Ondansetron [...] and GSP to fill dabrafenib and trametinib Admitted to [facility] 03/01/24-03/04/24 for L frontal craniotomy - dabrafenib/trametinib continued during admission Changes to medication list since last visit? No Follow up: 1 month OV; 2 months MTM Geri Acevedo, PharmD, BCOP Clinical Pharmacist, [facility] Oral Chemotherapy [facility] 04/06/2024, 11:26 AM Suggested lab monitoring: LVEF (via ECHO or MUGA) baseline, @ 1 month, then every 2-3 months; dermatologic eval baseline, every 2 months during therapy, then for up to 6 months after d/c; BMP/glucose(particularly in patients with pre-existing DM/hyperglycemia) every 3-4 months; CBCd/LFTs baseline,then every 3-4 months. Time Spent on Encounter: < 5 minutes documented in this encounter Plan of Treatment Upcoming Encounters Date Type Department Care Team (Late st Contact Info) Description 05/06/2024 2:45 PM EDT Office Visit Hematology/Oncology [facility] [place] [address] [facility] [place] [phone] Benja Watkins MD [address] [facility] [place] [address] 06/08/2024 9:45 AM EST Pharmacy Pharmacy Hematology Oncology [facility] [place] [address] [place] [address] [facility] Hem/Onc [address] [place] [address] 07/05/2024 9:45 AM EST Office Visit Neurosurgery, [place] [address] [place], [place] [id number] Clinic, Brain Tumor Multidisciplinary [address] [place], [place] [phone] 08/02/2024 8:20 AM EST Office Visit [facility] [address] [place] [phone] Martin Solorio MD [address] [place] [address] 10/05/2024 12:30 PM EDT Telemedicine Care at Home [address] [place], [place] [phone] Kori Dumont PA-C [address] [place] [address] 02/14/2025 8:00 AM EDT Imaging Radiology [facility] [address] [facility] [place] [address] Scheduled Procedures Name Priority Associated Diagnoses Date/Ti [...] 09/10/2023 DISCUSS TOBACCO CESSATION (REFER TO SMARTSET #6021) 01/28/2025 01/29/2024 TSH 01/28/2025 01/29/2024, 07/21, 07/25/2023, [...] this encounter Medical Devices Implanted Type Area Transitional Nurse Device Identifier Shelf Expiration Date Model / Serial / Lot Cover Nilda Hole 24mm 421.528 - [id number] Implanted:Qty: 1 on 08/20/2021 by Joni Hand III, MD at OR [facility] Right: Head SYNTHES MAXILLOFACIAL 421.528 / / Plate Y Ti Lo Db 6h 21 421.517 - [id number] Implanted:Qty: 1 on 08/20/2021 by Joni Hand III, MD at OR [facility] Right: Head SYNTHES MAXILLOFACIAL 421.517 / / Screw Ti Lo Pro Sd 4mm 400.834 - [id number] Implanted:Qty: 10 on 08/20/2021 by Joni Hand III, MD at OR [facility] Right: Head SYNTHES MAXILLOFACIAL 400.834 / / Cement Hydroset Injectable 5cc - [id number] Implanted:Qty: 1 on 03/03/2024 by Joni Hand III, MD at OR [facility] Left: Head SUZANNA [id number] 09/19/2025 [id number] / / [id number] Cover Bur Hol Ti Lo 17 421.527 - [id number] Implanted:Qty: 1 on 03/03/2024 by Joni Hand III, MD at OR [facility] Left: Head SYNTHES MAXILLOFACIAL 421.527 / / Plate Ti Lo Pro Str 2h 421.502 - [id number] Implanted:Qty: 2 on 03/03/2024 by Joni Hand III, MD at OR [facility] Left: Head SYNTHES MAXILLOFACIAL 421.502 / / Screw 4mm Ti Low Pro Sdrill - [id number] Implanted:Qty: 7 on 03/03/2024 by Joni Hand III, MD at OR [facility] Left: Head SYNTHES MAXILLOFACIAL 400.834E / / documented as of this encounter Visit Diagnoses Diagnosis Malignant melanoma of left lower extremity (HCC)- Primary Screening mammogram for breast cancer documented in [...] and were consensually agreed upon. Care Teams Ship Fitter Relationship Specialty Start Date End Date Martin Solorio MD [address] [place] [address] PCP - General Family Medicine 02/20/21 documented as of this encounter
--- OUTSIDE RECORDS SUMMARY | 2024-04-11 11:02 | External Medical Summary | Summary of Care ---
Author Name Unknown Organization [facility] Address [address] [place] [address] Phone [phone] Care Team Providers Care Travel Clerk Name Role Phone Martin Solorio MD Primary Care Provider Reason for Visit * Reason Comments Post-Op Patient is here toda y for a post-op appointment. Patient states she feel "off" still, "shaky legs", difficulty processing. Encounter Details Date Type Department Care Team (Late st Contact Info) Description 03/10/2024 3:00 PM EDT Office Visit [facility] [address] [place] [address] Martin Solorio MD [address] [place] [address] Malignant 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)* Allergies Active Allergy Reactions Criticality Noted Date Comments Erythromycin 08/15/1997 seizures documented as of this encounter (statuses as of 03/10/2024) Medications Medication Sig Dispensed Refills Start Date [...] 20 MG Oral Tablet (Pepcid) 02/29/2024 Active dexAMETHasone 2 MG Oral Tablet (Decadron) Take 2 Tablets by mouth 4 times a day for 2 days, THEN 2 Tablets 3 times a day for 3 days, THEN 1 Tablet 2 times a day for 3 days, THEN 1 Tablet daily for 2 days. 42 Tablet 03/04/2024 4 Active documented as of this encounter (statuses as of 03/10/2024) Active Problems Problem Noted Date Diagnosed Date 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 Cerebral atrophy 09/30/2023 Left sided lacunar infarction 09/30/2023 Spinal stenosis of cervical region 09/30/2023 Coronary artery disease invo lving [place] coronary artery of [place] heart without angina pectoris 09/30/2023 Pulmonary nodules [...] as of this encounter (statuses as of 03/10/2024) Resolved Problems Problem Noted Date Diagnosed Date [...] as of this encounter (statuses as of 03/10/2024) Immunizations Name Administration Dates Next Due COVID-19, [...] have concerns for your saf ety? No 03/01/2024 Do you have concerns for you r family's safety? (Household - for ages 0-17 years) Not on file 03/01/2024 Utilities Answer Date Recorded Do you have trouble paying y our heating, water, or electric bill? No 03/01/2024 Is your family able to pay t he heat, water, or electric bill? (Household - for ages 0-17 years) Not on file 03/01/2024 Does your family have access to good internet? (Household - for ages 0-17 years) Not on file 03/01/2024 Employment Status Answer Date Recorded Are you [...] to medical visits or work? Never True 03/01/2024 Does your family have a hard time getting a ride to doctors visits? (Household - for ages 0-17 years) Not on file 03/01/2024 Has lack of transportation k ept you from medical appointments, meetings, work, or from getting things needed for daily living? Check all that apply. No 03/01/2024 Do you (or your family) have trouble finding or paying for a ride (transportation)? (Household - for ages 0-17 years) Not on file 03/01/2024 Housing Stability Answer Date Recorded Do you currently live in a s helter or have no steady place to sleep at night? No 03/01/2024 READ ONLY Do you think you a re at risk of becoming homeless? No 03/01/2024 Does your family worry about paying for your home or becoming homeless? (Household - for ages 0-17 years) Not on file 0 03/01/2024 Are you homeless or worried that you might be in the future? No 03/01/2024 Are you (or your family) walt eless or worried that you might be in the future? (Household - for ages 0-17 years) Not on file Food Insecurity Answer Date Recorded Do you need food for this week? No 03/01/2024 Are you able to get enough f ood for your family? (Household - for ages 0-17 years) Not on file 03/01/2024 Does your family need food t his week? (Household - for ages 0-17 years) Not on file 03/01/2024 Do you always have enough fo od for your family? (Household - for ages 0-17 years) Not on file 03/01/2024 Sex and Gender Information Value Date Recorded Sex Assigned at Female 07/17/2023 3:25 PM EST Gender Identity Female 07/17/2023 3:25 PM EST Sexual Orientation Choose not to disclose 2022 3:25 PM EST Job Start Date Occupation Industry Not on file Not on file Not on file documented as of this encounter Last Filed Vital Signs Vital Sign Reading Time Taken Comments Blood Pressure 132/68 03/10/2024 2:45 PM EDT Pulse 82 03/10/2024 2:45 PM EDT Temperature 35.6 C (96 F) 03/10/2024 2:45 PM EDT Respiratory Rate 16 03/10/2024 2:45 PM EDT Oxygen Saturation 95% 03/10/2024 2:45 PM EDT Inhaled Oxygen Concentration - - Weight 60.9 kg (134 lb 3.2 oz) 03/10/2024 2:45 P M EDT Height 157.5 cm (5' 2") 03/10/2024 2:45 PM EDT Body Mass Index 24.55 03/10/2024 2:45 PM EDT documented in this [...] as of this encounter Progress Notes * Martin Solorio MD - 03/10/2024 3:30 PM EDT Subjective: Judy Garcia is a 63 year old female. Chief Complaint Patient presents with Post-Op Patient is here today for a post-op appointment. Patient states she feel "off" still, "shaky legs", difficulty processing. HPI: 63-year-old who has a known history of malignant melanoma with prior history of metastatic spread brain right side which he had surgically removed July of 2022. Follow-up imaging had shown something in the left side but it was not clear as to its significance. Earlier this month her husbandfound her at the front door on the floor. She ultimately was taken to [facility] in [facility]. She underwent surgery with Dr. Robledo on March 04 to remove a lesion in the left side. She has follow-up with him on March 15. She has done okay postoperatively. She currently does not have headache. She has not had any bleeding from her incision site which is left frontal Um at the hairline. She is eating and drinking. Had a bowel movement this morning which is rare for her. Still maintains good spirits. Patient Active Problem List Diagnosis Adjustment disorder [...] of cervical region Coronary artery disease involving [place] coronary artery of [place] heart without angina pectoris Pulmonary nodules Centrilobular emphysema (HCC) Left atrial enlargement Mild mitral regurgitation Mild tricuspid regurgitation Mild pulmonary valve regurgitation Metastasis to brain (HCC) Current Outpatient Medications Medication Sig Dispense Refill [...] bedtime. Famotidine 20 MG Oral Tablet (Pepcid) dexAMETHasone 2 MG Oral Tablet (Decadron) Take 2 Tablets by mouth 4 times a day for 2 days, THEN 2 Tablets 3 times a day for 3 days, THEN 1 Tablet 2 times a day for 3 days, THEN 1 Tablet daily for 2 days. 42 Tablet 0 No current facility-administered medications for this visit. Review of patient's allergies indicates: Allergen Reactions Erythromycin seizures Objective: BP 132/68 | Pulse 82 | Temp 35.6 C (96 F) (Tympanic) | Resp 16 | Ht 1.575 m (5' 2") | Wt 60.9 kg (134 lb 3.2 oz) | SpO2 95% | BMI 24.55 kg/m | BSA 1.63 m Physical Exam: CONST: alert, pleasant, no acute distress HEAD: normocephalic, atraumatic NECK: supple, soft, no adenopathy EARS: canals normal, TMs normal NARES: clear Eyes - PERRLA, EOM'I CV: regular rate and rhythm, no murmur CHEST: clear to auscultation bilaterally, no rales or wheezing ABD: soft, non tender, non distended, no masses or hepatosplenomegaly EXT: no edema, no joint swelling or deformities, NEURO: Having difficulty with short-term recall. Speech articulation is fine. Maybe some aphasia. MENTAL STATUS: no evidence of thought disorder, no delusional thought, no evidence of paranoia, thought is non-tangential. SKIN: Incision site left frontal scalp at the hairline looks to be healing well. Bradford are in place in the skin edges are well approximated. There was no drainage or localize swelling or Um erythematous changes. ASSESSMENT/PLAN: Status post left craniotomy and removal of suspected metastatic lesion. She will follow-up March 15 with the brain tumor clinic at [place]. Hypokalemia per last blood work showing potassium 3.4. I just suggested she Um eat some foods high in potassium such as bananas and orange juice. Routine health maintenance encouraged flu shot in April I will see her per already scheduled visit in July. Martin Solorio MD documented in this encounter Nursing Notes * Iveth Hopkins, ASIYA - 03/10/2024 2:48 PM EDT The patient has been properly identified by confirmation of name and date of . Chief Complaint Patient presents with Post-Op Patient is here today for a post-op appointment. Patient states she feel "off" still, "shaky legs", difficulty processing. documented in this encounter Plan of Treatment Upcoming Encounters Date Type Department Care Team (Late st Contact Info) Description 03/15/2024 10:15 AM EDT Office Visit Neurosurgery, [place] [address] [place] [address] Clinic, Brain Tumor Multidisciplinary [facility] [place] [address] 04/06/2024 9:45 AM EDT Pharmacy Pharmacy Hematology Oncology [facility], [address] [address] [facility] Hem/[place] [facility] [place] [address] 05/06/2024 2:45 PM EDT Office Visit Hematology/Oncology [facility] [place] [address] [place] [phone] Benja Watkins MD [address] [place] [address] 08/02/2024 8:20 AM EST Office Visit [address] [phone] Martin Solorio MD [address] [place] [address] 10/05/2024 12:30 PM EDT Telemedicine Care at Home [address] [place] [address] Kori Dumont PA-C [address] [place] [address] 02/14/2025 8:00 AM EDT Imaging Radiology [address], [address] [place] [address] Scheduled Procedures Name Priority Associated Diagnoses Date/Ti [...] 09/10/2023 DISCUSS TOBACCO CESSATION (REFER TO SMARTSET #5188) 01/28/2025 01/29/2024 TSH 01/28/2025 01/29/2024, 07/21, 07/25/2023, Additional history exists Mammogram 02/12/2025 02/13/2024, 01/19, 02/06/2021, Additional history exists GFR 03/01/2025 03/01/2024, 01/18, 09/03/2023, Additional history exists O2 ASSESSMENT COMPLETED IN PAST YEAR FOR COPD 03/03/2025 03/03/2024 Colonoscopy 06/05/2026 06/05/2021, 05/21, 08/10/2010 Colorectal Cancer Screening 06/05/2026 Albumin/Creatinine Ratio 07/25/2026 07/25/2023 DTaP,Tdap,and Td Vaccines (2 - Td or [...] this encounter Medical Devices Implanted Type Area Property Custodian Device Identifier Shelf Expiration Date Model / Serial / Lot Cover Nilda Hole 24mm 421.528 - [id number] Implanted:Qty: 1 on 08/20/2021 by Joni Hand III, MD at [place] [facility] Right: Head SYNTHES MAXILLOFACIAL 421.528 / / Plate Y Ti Lo Db 6h 21 421.517 - [id number] Implanted:Qty: 1 on 08/20/2021 by Joni Hand III, MD at OR [facility] Right: Head SYNTHES MAXILLOFACIAL 421.517 / / Screw Ti Lo Pro Sd 4mm 400.834 - [id number] Implanted:Qty: 10 on 08/20/2021 by Joni Hand III, MD at OR [facility] Right: Head SYNTHES MAXILLOFACIAL 400.834 / / Cement Hydroset Injectable 5cc - [id number] Implanted:Qty: 1 on 03/03/2024 by Joni Hand III, MD at OR [facility] Left: Head SUZANNA [id number] 09/19/2025 [id number] / / [id number] Cover Bur Hol Ti Lo 17 421.527 - [id number] Implanted:Qty: 1 on 03/03/2024 by Joni Hand III, MD at OR [facility] Left: Head SYNTHES MAXILLOFACIAL 421.527 / / Plate Ti Lo Pro Str 2h 421.502 - [id number] Implanted:Qty: 2 on 03/03/2024 by Joni Hand III, MD at OR [facility] Left: Head SYNTHES MAXILLOFACIAL 421.502 / / Screw 4mm Ti Low Pro Sdrill - [id number] Implanted:Qty: 7 on 03/03/2024 by Joni Hand III, MD at OR [facility] Left: Head SYNTHES MAXILLOFACIAL 400.834E / / documented as of this encounter Visit Diagnoses Diagnosis Malignant 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)- Primary Secondary malignant neoplasm [...] and were consensually agreed upon. Care Teams Travel Clerk Relationship Specialty Start Date End Date Martin Solorio MD [address] [facility] [place] [address] PCP - General Family Medicine 02/20/21 documented as of this encounter
--- OUTSIDE RECORDS SUMMARY | 2024-04-11 11:02 | External Medical Summary | Summary of Care ---
Author Name Unknown Organization [facility] Address [address] [place] [address] Phone [phone] Care Team Providers Care Material Hauler Name Role Phone Martin Solorio MD Primary Care Provider [phone] Reason for Visit * Reason Onset Date Comments Films 03/15/2024 Encounter Details Date Type Department Care Team (Late st Contact Info) Description 03/15/2024 Telephone Radiology [facility] [address] [place] [address] Support, Imaging Radiology [address] [place] [address] Films Allergies Active Allergy Reactions Criticality Noted Date Comments Erythromycin 08/15/1997 seizures documented as of this encounter (statuses as of 03/15/2024) Medications Medication Sig Dispensed Refills Start Date [...] as of this encounter (statuses as of 03/15/2024) Active Problems Problem Noted Date Diagnosed Date 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 Cerebral atrophy 09/30/2023 Left sided lacunar infarction 09/30/2023 Spinal stenosis of cervical region 09/30/2023 Coronary artery disease invo lving [place] coronary artery of [place] heart without angina pectoris 09/30/2023 Pulmonary nodules [...] as of this encounter (statuses as of 03/15/2024) Resolved Problems Problem Noted Date Diagnosed Date [...] as of this encounter (statuses as of 03/15/2024) Immunizations Name Administration Dates Next Due COVID-19, [...] encounter Miscellaneous Notes * Telephone Encounter - Wilda Rojas, System Support - 03/15/2024 3:30 PM EDT Delmi Barton requesting MRI brain 03/04/24. CT cap 03/01/24. images be pushed through PACS. [place] Authorization to Release on file. Images pushed to [facility] PACS external connection. documented in this encounter Plan of Treatment Upcoming Encounters Date Type Department Care Team (Late st Contact Info) Description 04/06/2024 9:45 AM EDT Pharmacy Pharmacy Hematology [facility], [place] [address] [place] [address] [facility]c [address] [place] [address] 05/06/2024 2:45 PM EDT [facility] [place] [address] [place] [phone] Benja Watkins MD [address] [facility] [place] [address] 07/05/2024 9:45 AM EST Office Visit Neurosurgery, [place] [address] [place] [address] Clinic, Brain Tumor Multidisciplinary [address] [place] [address] 08/02/2024 8:20 AM EST Office Visit [place] [facility] [address] [place] [phone] Martin Solorio MD [address] [place] [address] 10/05/2024 12:30 PM EDT Telemedicine Care at Home [address] [place] [address] Kori Dumont PA-C [address] [place] [address] 02/14/2025 8:00 AM EDT Imaging Radiology [facility] [address] [facility] [place] [address] Scheduled Procedures Name Priority Associated Diagnoses Date/Ti me COLONOSCOPY FLEXIBLE PROXIMA L DIAGNOSTIC Recall Family history of colon cancer Health Maintenance Due Date Last Done Comments Alpha-1 Antitrypsin 1976 Cologuard 2003 Fecal Occult Blood Test 2003 Sigmoidoscopy 2003 COVID-19 Vaccine (6 - 2023-24 season) 2023 06/26/2023, 12/14/2021, 2021, Additional history [...] this encounter Medical Devices Implanted Type Area Lead Sustainability Specialist Device Identifier Shelf Expiration Date Model / Serial / Lot Cover Nilda Hole 24mm 421.528 - [id number] Implanted:Qty: 1 on 08/20/2021 by Joni Hand III, [place] [facility] [place]: Head SYNTHES MAXILLOFACIAL 421.528 / / Plate Y Ti Lo Db 6h 21 421.517 - [id number] Implanted:Qty: 1 on 08/20/2021 by Joni Hand III, [place] [facility] [place]: Head SYNTHES MAXILLOFACIAL 421.517 / / Screw Ti Lo Pro Sd 4mm 400.834 - [id number] Implanted:Qty: 10 on 08/20/2021 by Joni Hand III, [place] [facility] Right: Head SYNTHES MAXILLOFACIAL 400.834 / / Cement Hydroset Injectable 5cc - [id number] Implanted:Qty: 1 on 03/03/2024 by Joni Hand III, [place] [facility] Left: Head SUZANNA [id number] 09/19/2025 [id number] / / [id number] Cover Bur Hol Ti Lo 17 421.527 - [id number] Implanted:Qty: 1 on 03/03/2024 by Joni Hand III, [place] [facility] Left: Head SYNTHES MAXILLOFACIAL 421.527 / / Plate Ti Lo Pro Str 2h 421.502 - [id number] Implanted:Qty: 2 on 03/03/2024 by Joni Hand III, MD [place] [facility] Left: Head SYNTHES MAXILLOFACIAL 421.502 / / Screw 4mm Ti Low Pro Sdrill - [id number] Implanted:Qty: 7 on 03/03/2024 by Joni Hand III, [place] [facility] Left: Head SYNTHES MAXILLOFACIAL 400.834E / / [...] and were consensually agreed upon. Care Teams Material Hauler Relationship Specialty Start Date End Date Martin Solorio MD [address] [place] [address] PCP - General Family Medicine 02/20/21 documented as of this encounter
--- OUTSIDE RECORDS SUMMARY | 2024-04-11 11:02 | External Medical Summary | Summary of Care ---
Author Name Unknown Organization [facility] Address [address] [place] [address] Phone [phone] Care Team Providers Care Infant Toddler Lead Teacher Name Role Phone Baldev Solorio MD Primary Care Provider Reason for Visit * Reason Comments eRx-Medication Refill Encounter Details Date Type Department Care Team (Late st Contact Info) Description 04/05/2024 Refill [facility] [address] [place] [address] Baldev Solorio MD [address] [place] [address] Adjustment disorder with depressed mood Allergies Active Allergy Reactions Criticality Noted Date Comments Erythromycin 08/15/1997 seizures documented as of this encounter (statuses as of 04/05/2024) Medications Medication Sig Dispensed Refills Start Date [...] before bedtime. 120 Capsule 5 4 Active Trametinib Dimethyl Sulfoxide 0.5 MG Oral Tablet (Mekinist)Indicat ions:Malignant melanoma of left lower extremity (HCC) Take 3 tablets (1.5mg) by mouth in the morning. 90 Tablet 5 4 Active Triamcinolone Acetonide 0.1 % External [...] OF TAFINLAR 60 Tablet 2 4 Active LORazepam 0.5 MG Oral Tablet (Ativan) 4 Active Levothyroxine Sodium 175 MCG Oral Tablet (Levoxyl) Take 1 Tablet by mouth daily first thing in the morning. (at least 30 min prior to breakfast or other meds) Active Cephalexin 250 MG Oral Capsule (Keflex) Take 1 Capsule by mouth in the morning and 1 Capsule at noon and 1 Capsule before bedtime. 4 Active Famotidine 20 MG Oral Tablet (Pepcid) 4 Active PARoxetine HCl 40 MG Oral Tablet (pAXil)Indication s:Adjustment disorder with depressed mood TAKE 1 TABLET BY MOUTH IN THE MORNING 90 Tablet 3 4 Active PARoxetine HCl 40 MG Oral Tablet (pAXil)Indication s:Adjustment disorder with depressed mood TAKE 1 TABLET BY MOUTH IN THE MORNING 90 Tablet 1 4 04/05/20 24 Discontinued documented as of this encounter (statuses as of 04/05/2024) Active Problems Problem Noted Date Diagnosed Date 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 Cerebral atrophy 09/30/2023 Left sided lacunar infarction 09/30/2023 Spinal stenosis of cervical region 09/30/2023 Coronary artery disease invo lving [place] coronary artery of [place] heart without angina pectoris 09/30/2023 Pulmonary [...] as of this encounter (statuses as of 04/05/2024) Resolved Problems Problem Noted Date Diagnosed Date [...] as of this encounter (statuses as of 04/05/2024) Immunizations Name Administration Dates Next Due COVID-19, [...] encounter Miscellaneous Notes * Telephone Encounter - Cristi Woodson, [facility] - 04/05/2024 11:32 AM EDT Signed Prescriptions: Disp Refills PARoxetine HCl 40 MG Oral Tablet (pAXil) 90 Tab*3 Sig: TAKE 1 TABLET BY MOUTH IN THE MORNINGAuthorizing Provider: BALDEV SOLORIO User: CRISTI WOODSON- documented in this encounter Plan of Treatment Upcoming Encounters Date Type Department Care Team (Late st Contact Info) Description 04/06/2024 9:45 AM EDT Pharmacy Pharmacy Hematology Oncology [address] [address] [facility] Hem/Onc [address] [place] [address] 05/06/2024 2:45 PM EDT Office Visit Hematology/Oncology [facility] [address] [place] [address] Benja Watkins MD [address] [place] [address] 07/05/2024 9:45 AM EST Office Visit Neurosurgery, [address] [address] Clinic, Brain Tumor Multidisciplinary [address] [place] [address] 08/02/2024 8:20 AM EST Office Visit [facility] [address] [place] [address] Baldev Solorio MD [address], [place] [address] 10/05/2024 12:30 PM EDT Telemedicine Care at Home [facility] [place] [address] Kori Dumont PA-C [address] [facility] [place] [address] 02/14/2025 8:00 AM EDT Imaging Radiology [address], Organ [address] [facility] [place] [address] Scheduled Procedures Name Priority Associated Diagnoses Date/Ti [...] 09/10/2023 DISCUSS TOBACCO CESSATION (REFER TO SMARTSET #5023) 01/28/2025 01/29/2024 TSH 01/28/2025 01/29/2024, 07/21, 07/25/2023, [...] this encounter Medical Devices Implanted Type Area Oracle Webcenter Consultant Device Identifier Shelf Expiration Date Model / Serial / Lot Cover Nilda Hole 24mm 421.528 - [id number] Implanted:Qty: 1 on 08/20/2021 by Joni Hand III, MD at [place] [facility] Right: Head SYNTHES MAXILLOFACIAL 421.528 / / Plate Y Ti Lo Db 6h 21 421.517 - [id number] Implanted:Qty: 1 on 08/20/2021 by Joni Hand III, MD at [place] [facility] Right: Head SYNTHES MAXILLOFACIAL 421.517 / / Screw Ti Lo Pro Sd 4mm 400.834 - [id number] Implanted:Qty: 10 on 08/20/2021 by Joni Hand III, MD at [place] [facility] Right: Head SYNTHES MAXILLOFACIAL 400.834 / / Cement Hydroset Injectable 5cc - [id number] Implanted:Qty: 1 on 03/03/2024 by Joni Hand III, MD at [place] [facility] Left: Head SUZANNA [id number] 09/19/2025 [id number] / / [id number] Cover Bur Hol Ti Lo 17 421.527 - [id number] Implanted:Qty: 1 on 03/03/2024 by Joni Hand III, MD at [place] [facility] Left: Head SYNTHES MAXILLOFACIAL 421.527 / / Plate Ti Lo Pro Str 2h 421.502 - [id number] Implanted:Qty: 2 on 03/03/2024 by Joni Hand III, MD at [place] [facility] Left: Head SYNTHES MAXILLOFACIAL 421.502 / / Screw 4mm Ti Low Pro Sdrill - [id number] Implanted:Qty: 7 on 03/03/2024 by Joni Hand III, MD at [place] [facility] Left: Head SYNTHES MAXILLOFACIAL 400.834E / / documented as of this encounter Visit Diagnoses Diagnosis Adjustment disorder with depressed mood Screening mammogram for breast cancer documented in [...] and were consensually agreed upon. Care Teams Infant Toddler Lead Teacher Relationship Specialty Start Date End Date Baldev Solorio MD [address] [facility] [address] PCP - General Family Medicine 02/20/21 documented as of this encounter
--- OUTSIDE RECORDS SUMMARY | 2024-04-11 11:03 | External Medical Summary | Summary of Care ---
Author Name Unknown Organization [facility] Address [address] [place] [address] Phone [phone] Care Team Providers Care Security Systems Integrator Name Role Phone Martin Solorio MD Primary Care Provider [phone] Reason for Visit * Reason Onset Date Comments [facility]: Screening 03/05/2024 Encounter Details Date Type Department Care Team (Late st Contact Info) Description 03/05/2024 Telephone [facility], [facility] [address] [place] [address] Syeda Ventura LPN [address] [place] [address] [facility]: Screening Allergies Active Allergy Reactions Criticality Noted Date Comments Erythromycin 08/15/1997 seizures documented as of this encounter (statuses as of 03/05/2024) Medications Medication Sig Dispensed Refills Start Date [...] as of this encounter (statuses as of 03/05/2024) Active Problems Problem Noted Date Diagnosed Date 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 (Household - for ages [...] encounter Miscellaneous Notes * Telephone Encounter - Syeda Ventura LPN - 03/05/2024 9:45 AM EDT Judy Garcia was referred as a potential candidate for enrollment for [facility]. A review of this chart was completed and: Judy meets criteria for [facility]. Jump to Initiation Referring care team was notified via : Parkt communication documented in this encounter Plan of Treatment Upcoming Encounters Date Type Department Care Team (Late st Contact Info) Description 03/09/2024 9:45 AM EDT Pharmacy Pharmacy Hematology Oncology [facility] [place] [address] [place] [address] [facility] [place] [place] [facility] [place] [facility] [place] [place] [address] 03/10/2024 3:00 PM EDT Office Visit [address] [phone] Martin Solorio MD [address] [place], [place] [phone] 03/15/2024 10:15 AM EDT Office Visit Neurosurgery, [place] [address] [place] [address] Clinic, Brain Tumor Multidisciplinary [facility] [place] [address] 05/06/2024 2:45 PM EDT Office Visit Hematology/Oncology [facility] [place] [address] [place] [phone] Benja Watkins MD [address] [place] [address] 08/02/2024 8:20 AM EST Office Visit [address] [phone] Martin Solorio MD [address] [place] [address] 10/05/2024 12:30 PM EDT Telemedicine Care at Home [address] [facility] [place] [address] Kori Dumont PA-C [address] [facility] [place] [address] 02/14/2025 8:00 AM EDT Imaging Radiology [address] [place] [address] Scheduled Procedures Name Priority Associated Diagnoses Date/Ti [...] 09/10/2023 DISCUSS TOBACCO CESSATION (REFER TO SMARTSET #2532) 01/28/2025 01/29/2024 TSH 01/28/2025 01/29/2024, 07/21, 07/25/2023, [...] this encounter Medical Devices Implanted Type Area Siebel Administrator Device Identifier Shelf Expiration Date Model / Serial / Lot Cover Tilden Hole 24mm 421.528 - [id number] Implanted:Qty: 1 on 08/20/2021 by Joni Hand III, MD at [place] [facility] [place] Right: Head SYNTHES MAXILLOFACIAL 421.528 / / Plate Y Ti Lo Db 6h 21 421.517 - [id number] Implanted:Qty: 1 on 08/20/2021 by Joni Hand III, MD at [place] [facility] [place] Right: Head SYNTHES MAXILLOFACIAL 421.517 / / Screw Ti Lo Pro Sd 4mm 400.834 - [id number] Implanted:Qty: 10 on 08/20/2021 by Joni Hand III, MD at [place] [facility] [place] Right: Head SYNTHES MAXILLOFACIAL 400.834 / / Cement Hydroset Injectable c - [id number] Implanted:Qty: 1 on 03/03/2024 by Joni Hand III, MD at [place] [facility] [place] Left: Head SUZANNA [id number] 09/19/2025 [id number] / / [id number] Cover Bur Hol Ti Lo 17 421.527 - [id number] Implanted:Qty: 1 on 03/03/2024 by Joni Hand III, MD at OR [facility] [place] Left: Head SYNTHES MAXILLOFACIAL 421.527 / / Plate Ti Lo Pro Str 2h 421.502 - [id number] Implanted:Qty: 2 on 03/03/2024 by Joni Hand III, MD at OR [facility] [place] Left: Head SYNTHES MAXILLOFACIAL 421.502 / / Screw 4mm Ti Low Pro Sdrill - [id number] Implanted:Qty: 7 on 03/03/2024 by Joni Hand III, MD at OR [facility] [place] Left: Head SYNTHES MAXILLOFACIAL 400.834E / / [...] and were consensually agreed upon. Care Teams Security Systems Integrator Relationship Specialty Start Date End Date Martin Solorio MD [address] [place] [address] PCP - General Family Medicine 02/20/21 documented as of this encounter
--- OUTSIDE RECORDS SUMMARY | 2024-04-11 11:03 | External Medical Summary | Summary of Care ---
Author Name Unknown Organization [facility] Address [address] [place] [address] Phone [phone] Care Team Providers Care Sorting Machine Attendant Name Role Phone Martin Solorio MD Primary Care Provider [phone] Reason for Visit * Reason Onset Date Comments Appointment 03/08/2024 Encounter Details Date Type Department Care Team (Late st Contact Info) Description 03/08/2024 Telephone [facility], [place] [address] [place] [address] Services, Scheduling [address] [place] [address] Appointment Allergies Active Allergy Reactions Criticality Noted Date Comments Erythromycin 08/15/1997 seizures documented as of this encounter (statuses as of 03/08/2024) Medications Medication Sig Dispensed Refills Start Date [...] daily for 2 days. 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 (Household - for ages [...] encounter Miscellaneous Notes * Telephone Encounter - June Nair OSA - 03/08/2024 11:42 AM EDT [facility] Engagement Attempt Engagement: Engagement Attempt 1: Unable to contact Engagement Attempt 2: Contacted - Declined home-based services Declined reason: No data was found Home Information: No data was found Advance Care Planning (ACP): No data was found Has Living Will or Advance Directive: No data was found Anticipated Sub-Program: Focused Care Management (3-9 months) Confirmation of Sub-Program Type (by care instrument repairer steam plant): No data was found Handoff Information: Current care team notified via: No data was found Current telemonitoring equipment: No data was found documented in this encounter Plan of Treatment Upcoming Encounters Date Type Department Care Team (Late st Contact Info) Description 03/09/2024 9:45 AM EDT Pharmacy Pharmacy Hematology Oncology [facility], [address] [address] [facility] [place] Hem/Onc [address] [place] [address] 03/10/2024 3:00 PM EDT Office Visit [address] [phone] Martin Solorio MD [address] [place], [place] [phone] 03/15/2024 10:15 AM EDT Office Visit Neurosurgery, [place] [address] [place] [address] Clinic, Brain Tumor Multidisciplinary [facility] [place] [address] 05/06/2024 2:45 PM EDT Office Visit Hematology/Oncology [facility] [place] [address] [place], [place] [phone] Benja Watkins MD [address] [place] [address] 08/02/2024 8:20 AM EST Office Visit [address] [phone] Martin Solorio MD [address] [place] [address] 10/05/2024 12:30 PM EDT Telemedicine Care at Home [address] [place] [address] Kori Dumont PA-C [address] [place] [address] 02/14/2025 8:00 AM EDT Imaging Radiology [address], [address] [place] [address] Scheduled Procedures Name Priority Associated Diagnoses Date/Ti [...] 09/10/2023 DISCUSS TOBACCO CESSATION (REFER TO SMARTSET #8283) 01/28/2025 01/29/2024 TSH 01/28/2025 01/29/2024, 07/21, 07/25/2023, [...] this encounter Medical Devices Implanted Type Area Hosiery Operator Device Identifier Shelf Expiration Date Model / Serial / Lot Cover Nilda Hole 24mm 421.528 - [id number] Implanted:Qty: 1 on 08/20/2021 by Joni Hand III, [place] [facility] [place] Head SYNTHES MAXILLOFACIAL 421.528 / / Plate Y Ti Lo Db 6h 21 421.517 - [id number] Implanted:Qty: 1 on 08/20/2021 by Joni Hand III, [place] [facility] [place]: Head SYNTHES MAXILLOFACIAL 421.517 / / Screw Ti Lo Pro Sd 4mm 400.834 - [id number] Implanted:Qty: 10 on 08/20/2021 by Joni Hand III, [place] [facility] [place]: Head SYNTHES MAXILLOFACIAL 400.834 / / Cement Hydroset Injectable c - [id number] Implanted:Qty: 1 on 03/03/2024 by Joni Hand III, [place] [facility] [place]: Head SUZANNA [id number] 09/19/2025 [id number] / / [id number] Cover Bur Hol Ti Lo 17 421.527 - [id number] Implanted:Qty: 1 on 03/03/2024 by Joni Hand III, [place] [facility] [place]: Head SYNTHES MAXILLOFACIAL 421.527 / / Plate Ti Lo Pro Str 2h 421.502 - [id number] Implanted:Qty: 2 on 03/03/2024 by Joni Hand III, [place] [facility] [place]: Head SYNTHES MAXILLOFACIAL 421.502 / / Screw 4mm Ti Low Pro Sdrill - [id number] Implanted:Qty: 7 on 03/03/2024 by Joni Hand III, [place] [facility] [place]: Head SYNTHES MAXILLOFACIAL 400.834E / / [...] and were consensually agreed upon. Care Teams Sorting Machine Attendant Relationship Specialty Start Date End Date Martin Solorio MD [address] [place] [address] PCP - General Family Medicine 02/20/21 documented as of this encounter
--- OUTSIDE RECORDS SUMMARY | 2024-04-11 11:03 | External Medical Summary | Summary of Care ---
Author Name Unknown Organization [facility] Address [address] [place] [address] Phone [phone] Care Team Providers Care Reading Specialist Name Role Phone Martin Solorio MD Primary Care Provider [phone] Reason for Visit * Reason Comments Medication Management Encounter Details Date Type Department Care Team (Late st Contact Info) Description 03/09/2024 9:45 AM EDT Pharmacy Pharmacy Hematology Oncology [facility] [address] [place] [address] [facility] [place] Hem/Onc [address] [place] [address] Malignant melanoma of left lower extremity (HCC)* Allergies Active Allergy Reactions Criticality Noted Date Comments Erythromycin 08/15/1997 seizures documented as of this encounter (statuses as of 03/09/2024) Medications Medication Sig Dispensed Refills Start Date [...] as of this encounter (statuses as of 03/09/2024) Active Problems Problem Noted Date Diagnosed Date 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 (Household - for [...] this encounter Progress Notes * Geri Acevedo, [facility] - 03/09/2024 2:49 PM EDT MEDICATION THERAPY MANAGEMENT DABRAFENIB & TRAMETINIB TREATMENT PROGRESS NOTE Judy Garcia [phone] Patient Phone Numbers : Kwame Communication: Left message requesting return call to assess toleration to therapy Treatment: Medication: Dabrafenib // Trametinib Indication: metastatic melanoma Dose: 75 mg BID // 1.5 mg daily ( 02/2022) Administration: empty stomach (1 hour before or 2 hours after a meal) Start Date: 10/04/21 Primary Citrix Architect/Oncologist: Dr. Noman Watkins Supportive Care Meds: Ondansetron [...] to fill dabrafenib and trametinib Ad[place] to [facility] [place]-03/04/24 for L frontal craniotomy - dabrafenib/trametinib continued during admission Changes to medication list since last visit? No Follow up: 1 month Geri Acevedo, PharmD, OP Clinical Pharmacist, [facility] Oral Chemotherapy [facility] 03/09/2024, 2:52 PM Suggested lab monitoring: LVEF (via ECHO or [...] Description 03/10/2024 3:00 PM EDT Office Visit [facility] [address] [place] [phone] Martin Solorio MD [address] [place] [address] 03/15/2024 10:15 AM EDT Office Visit Neurosurgery, [place] [address] [place] [address] Clinic, Brain Tumor Multidisciplinary [address] [place] [address] 04/06/2024 9:45 AM EDT Pharmacy Pharmacy Hematology Oncology [facility] [address] [place] [address] [facility] [place] Hem/Onc [address] [place] [address] 05/06/2024 2:45 PM EDT Office Visit Hematology/Oncology [facility] [address] [place] [phone] Benja Watkins MD [address] [place] [address] 08/02/2024 8:20 AM EST Office Visit [facility] [address] [place] [address] Martin Solorio MD [address] [place], [place] [phone] 10/05/2024 12:30 PM EDT Telemedicine Care at Home [address] [place] [address] Kori Dumont PA-C [address] [place] [address] 02/14/2025 8:00 AM EDT Imaging Radiology [address], [address] [place] [address] Scheduled Procedures Name Priority Associated Diagnoses Date/Ti [...] this encounter Medical Devices Implanted Type Area Long Chain Beamer Device Identifier Shelf Expiration Date Model / Serial / Lot Cover [place]umb[place] Hole 24mm 421.528 - [id number] Implanted:Qty: 1 on 08/20/2021 by Joni Hand III, [place] [facility] [place]: Head SYNTHES MAXILLOFACIAL 421.528 / / Plate Y Ti Lo Db 6h 21 421.517 - [id number] Implanted:Qty: 1 on 08/20/2021 by Joni Hand III, MD at [place] [facility] [place] Right: Head SYNTHES MAXILLOFACIAL 421.517 / / Screw Ti Lo Pro Sd 4mm 400.834 - [id number] Implanted:Qty: 10 on 08/20/2021 by Joni Hand III, MD at [place] [facility] [place] Right: Head SYNTHES MAXILLOFACIAL 400.834 / / Cement Hydroset Injectable 5cc - [id number] Implanted:Qty: 1 on 03/03/2024 by Joni Hand III, MD at [place] [facility] [place] Left: Head SUZANNA [id number] 09/19/2025 [id number] / / [id number] Cover Bur Hol Ti Lo 17 421.527 - [id number] Implanted:Qty: 1 on 03/03/2024 by Joni Hand III, MD at [place] [facility] [place] Left: Head SYNTHES MAXILLOFACIAL 421.527 / / Plate Ti Lo Pro Str 2h 421.502 - [id number] Implanted:Qty: 2 on 03/03/2024 by Joni Hand III, MD at [place] [facility] [place] Left: Head SYNTHES MAXILLOFACIAL 421.502 / / Screw 4mm Ti Low Pro Sdrill - [id number] Implanted:Qty: 7 on 03/03/2024 by Joni Hand III, MD at [place] [facility] [place] Left: Head SYNTHES MAXILLOFACIAL 400.834E [...] and were consensually agreed upon. Care Teams Reading Specialist Relationship Specialty Start Date End Date Martin Solorio MD [address] [facility] [place] [address] PCP - General Family Medicine 02/20/21 documented as of this encounter
--- OUTSIDE RECORDS SUMMARY | 2024-04-11 11:03 | External Medical Summary | Summary of Care ---
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 Name Role Phone Baldev Solorio MD Primary Care Provider [phone] Reason for Visit * Auth/Cert Specialty Diagnoses / Procedures Referred By Bere rivera Referred To Contact Diagnoses Metastasis to brain (HCC) Metastasis to brain (HCC) [C79.31] Procedures REMOVE SUPRATENTORIAL BRAIN TUMOR CRANIOTOMY BONE FLAP EXCISION BRAIN TUMOR SUPRATENTORIAL Joni Hand III, MD [address] [place] [address] Or [facility] [address] [place] [address] Referral ID Status Reason Start Date Expiration Date Visits Re quested Visits Authorized [id number] Encounter Details Date Type Department Care Team (Latest Contact Info) Description 03/01/2024 10:41 AM EDT - 03/04/2024 3:04 PM EDT Hospital Encounter [id number] [facility] [place] [place] [address] FLOOR [address] [place] [address] Joni Hand III, MD [address] [place] [address] Discharge Disposition: Home - Self Care Allergies Active Allergy Reactions Criticality Noted Date Comments Erythromycin 08/15/1997 seizures documented as of this encounter (statuses as of 03/05/2024) Medications Medication Sig Dispensed Refills Start Date End Date Status MULTIVITAMINS PO TABS Take 1 Tablet by mouth every morning. 0 09/10/19 08 Active traZODone HCl 100 MG Oral Tablet [...] MORNING 90 Tablet 1 10/09/19 24 Active Trametinib Dimethyl Sulfoxide 0.5 MG Oral Tablet (Mekinist)Indicat ions:Malignant melanoma of left lower extremity (HCC) Take 3 tablets (1.5mg) by mouth in the morning. 90 Tablet 5 10/27/19 24 Active Triamcinolone Acetonide 0.1 % External Cream (Aristocort) Apply topically to affected area 2 times a day. To affected area. 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 (at least 30 min prior to breakfast or other meds) Active Cephalexin 250 MG Oral Capsule (Keflex) Take 1 Capsule by mouth in the morning and 1 Capsule at noon and 1 Capsule before bedtime. 02/29/20 24 Active Famotidine 20 MG Oral Tablet (Pepcid) 02/29/20 24 Active dexAMETHasone 2 MG Oral Tablet (Decadron) Take 2 Tablets by mouth 4 times a day for 2 days, THEN 2 Tablets 3 times a day for 3 days, THEN 1 Tablet 2 times a day for 3 days, THEN 1 Tablet daily for 2 days. 42 Tablet 03/04/20 24 024 Active Levothyroxine Sodium 200 MCG Oral Tablet TAKE 1 TABLET BY MOUTH ONCE DAILY IN THE MORNING AT LEAST 30 MIN BEFORE BREAKFAST OR OTHER MEDS 90 Tablet 1 11/14/19 24 024 Discontinued(Il dication List Clean Up) dexAMETHasone 4 MG Oral Tablet (Decadron) 02/29/20 24 024 Discontinued documented as of this encounter (statuses as of 03/05/2024) Active Problems Problem Noted Date Diagnosed Date 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 Cerebral atrophy 09/30/2023 Left sided lacunar infarction 09/30/2023 Spinal stenosis of cervical region 09/30/2023 Coronary artery disease invo lving nikolski coronary artery of nikolski heart without angina pectoris 09/30/2023 Pulmonary nodules [...] Sign Reading Time Taken Comments Blood Pressure 118/73 03/04/2024 8:41 AM EDT Pulse 68 03/04/2024 8:41 AM EDT Temperature 36.9 C (98.4 F) 03/04/2024 6:15 AM ED T Respiratory Rate 18 03/04/2024 6:15 AM EDT Oxygen Saturation 96% 03/04/2024 6:15 AM EDT Inhaled Oxygen Concentration - - Weight 61.1 kg (134 lb 11.2 oz) 03/01/2024 1:08 PM EDT Height 157.5 cm (5' 2") 03/01/2024 1:08 PM EDT Body Mass Index 24.64 03/01/2024 1:08 PM EDT documented in this encounter Functional [...] Yes 03/01/2024 documented as of this encounter Discharge Summaries * Dre Medina PA-C - 03/04/2024 11:50 AM EDT Images from the original note were not included. [address] [place] [id number] Admission Date: 03/01/2024 Discharge Date: 03/04/2024 DISCHARGE DIAGNOSES: Active Hospital Problems Diagnosis *Principal Diagnosis - Metastasis to brain (HCC) Resolved Hospital Problems No resolved problems to display. Other Significant Diagnoses: Patient Active Problem List Diagnosis Date Noted Metastasis to brain (HCC) [C79.31] 03/01/2024 Cerebral atrophy (HCC) [G31.9] 09/30/2023 Left sided lacunar infarction (HCC) [I63.81] 09/30/2023 Spinal stenosis of cervical region [M48.02] 09/30/2023 Coronary artery disease involving nikolski coronary artery of nikolski heart without angina pectoris [I25.10] 09/30/2023 Pulmonary nodules [R91.8] 09/30/2023 Centrilobular emphysema (HCC) [J43.2] 09/30/2023 Left atrial enlargement [I51.7] 09/30/2023 Mild mitral regurgitation [I34.0] 09/30/2023 Mild tricuspid regurgitation [I07.1] 09/30/2023 Mild pulmonary valve regurgitation [I37.1] 09/30/2023 Brain lesion [G93.9] 09/08/2023 Malignant 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) [C79.31] 08/21/2021 Hx of melanoma of skin [Z85.820] 08/26/2019 Melanoma involving the left leg, S/P resection [...] metastatic to inguinal lymph node (HCC) [C77.4] 02/01/2019 HTN, goal below 130/80 [I10] 10/09/2018 Drug-induced hepatitis [K71.6, T50.905A] 10/09/2018 Chronic hyponatremia [E87.1] 10/09/2018 Encounter for antineoplastic chemotherapy [Z51.11] 02/09/2018 Malignant melanoma of left lower extremity (HCC) [C43.72] 12/26/2017 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] 10/20/2017 Dyslipidemia [E78.5] 04/13/2011 Tobacco use disorder [F17.200] 09/06/2006 Chronic rhinitis [J31.0] 09/06/2006 Adjustment disorder with depressed mood [F43.21] 07/26/1998 Migraine with aura [G43.109] CONDITION ON DISCHARGE: stable Cognition: normal DISPOSITION ON DISCHARGE: home FOLLOW-UP: Future Appointments Appt Date/Time Provider Department 03/10/2024 3:00 PM Baldev Solorio MD [facility] 03/15/2024 10:15 AM [facility]/06/[facility]24 2:45 PM Benja Watkins MD Hematology/Oncology [facility] 08/02/2024 8:20 AM Baldev Solorio MD [facility] 10/05/2024 12:30 PM Kori Dumont PA-C [facility] 02/14/2025 8:00 AM [id number] [facility] Radiology [address] Outpatient testing already scheduled: none Outpatient testing that needs to be arranged: none Inpatient test results pending: Final pathology MEDICATIONS ON DISCHARGE: MEDICATION UPDATES AT DISCHARGE CHANGE how you take these medications INSTRUCTIONS dexAMETHasone 2 MG Tabs Tablet Commonly known as: Decadron Start taking on: March 04, 2024 What changed: medication strength See the new instructions. Take 2 Tablets by mouth 4 times a day for 2 days, THEN 2 Tablets 3 times a day for 3 days, THEN 1 Tablet 2 times a day for 3 days, THEN 1 Tablet daily for 2 days. CONTINUE taking these medications INSTRUCTIONS atorvaSTATin 20 MG Tablet Commonly known as: Lipitor Take 1 Tablet by mouth every evening. carBAMazepine xr 200 MG Tb12 Commonly known as: Tegretol-Xr TAKE 2 TABLETS BY MOUTH IN THE MORNING AND 2 IN THE EVENING Cephalexin 250 MG Capsule Commonly known as: Keflex Take 1 Capsule by mouth in the morning and 1 Capsule at noon and 1 Capsule before bedtime. Famotidine 20 MG Tablet Commonly known as: Pepcid levothyroxine 175 MCG Tablet Commonly known as: Levoxyl Take 1 Tablet by mouth daily first thing in the morning. (at least 30 min prior to breakfast or other meds) LORAzepam 0.5 MG Tablet Commonly known as: Ativan losartan 50 MG Tablet Commonly known as: [...] 30 MIN PRIOR TO ADMINSTRATION OF TAFINLAR PARoxetine 40 MG Tablet Commonly known as: pAXil TAKE 1 TABLET BY MOUTH IN THE MORNING Tafinlar 75 MG Caps Generic drug: Dabrafenib Mesylate Take 1 Capsule by mouth in the morning and 1 Capsule before bedtime. traZODone 100 MG Tablet Commonly known as: Desyrel TAKE 1 & 1/2 (ONE & ONE-HALF) TABLETS BY MOUTH AT BEDTIME Triamcinolone Acetonide 0.1 % cream Commonly known as: Aristocort Apply topically to affected area 2 times a day. To affected area. ALLERGIES: Erythromycin INSTRUCTIONS: Activity: No strenuous activity for four weeks No lifting or pushing or pulling more than 10 lbs for four weeks Diet: normal diet Code Status: Full Code Indwelling devices: Implants CEMENT HYDROSET INJECTABLE 5CC - [id number] Inventory Item: CEMENT HYDROSET INJECTABLE 5CC Serial no.: Model/Cat no.: [id number] Implant name: CEMENT HYDROSET INJECTABLE 5CC - [id number] Laterality: Left Area: Head Dielectric Testing Machine Operator: Plovgh Date of Manufacture: Action: Implanted Number Used: 1 Device Identifier: [id number] Device Identifier Type: Lot no.: [id number] COVER BUR HOL TI LO 17 - [id number] Inventory Item: COVER BUR HOL TI LO 17 Serial no.: Model/Cat no.: [id number] Implant name: COVER BUR HOL TI LO 17 - [id number] Laterality: Left Area: Head Dielectric Testing Machine Operator: Einspect MAXILLOFACIAL Date of Manufacture: Action: Implanted Number Used: 1 Device Identifier: Device Identifier Type: Lot no.: PLATE TI LO PRO STR 2H 421.502 - [id number] Inventory Item: PLATE TI LO PRO STR 2H 421.502 Serial no.: Model/Cat no.: [id number] Implant name: PLATE TI LO PRO STR 2H 421.502 - [id number] Laterality: Left Area: Head Dielectric Testing Machine Operator: Einspect MAXILLOFACIAL Date of Manufacture: Action: Implanted Number Used: 2 Device Identifier: Device Identifier Type: Lot no.: SCREW 4MM TI LOW PRO SDRILL - [id number] Inventory Item: SCREW 4MM TI LOW PRO SDRILL Serial no.: Model/Cat no.: [id number] Implant name: SCREW 4MM TI LOW PRO SDRILL - [id number] Laterality: Left Area: Head Dielectric Testing Machine Operator: Einspect MAXILLCocodrilo Dog Date of Manufacture: Action: Implanted Number Used: 7 Device Identifier: Device Identifier Type: Lot no.: ADMISSION HISTORY & PHYSICAL EXAM (focused): HISTORY & PHYSICAL EXAMINATON - Neurosurgery -- Brain Tumor [place] [id number] Name: Judy Garcia Date: 03/01/2024 Time: 10:30 AM Primary Care Provider: Baldev Solorio MD PRESENTING PROBLEM: 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 She is on steroids. She has worsening altered mental status, falls, speech disturbance, R sided weakness. Went to OSH and was seen there and admitted. Steroids improved symptoms. Ida denies any pain, seizures, dizziness, blurred vision, nausea, vomiting, change in bowel or bladder habitus; personality or memory. Oncology History Treatment Summary Treatment Summary Malignant melanoma of left lower extremity (HCC) 12/26/2017 Initial Diagnosis Malignant melanoma of left lower extremity (HCC) 01/26/2018 - 03/29/2019 Chemotherapy NIVOLUMAB 240 mg D 1,15 (6 Cycles/28 Days) [id number] 09/17/2021 - Chemotherapy DABRAFENIB (TAFINLAR) & TRAMETINIB (MEKINIST) [id number] Malignant 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) 08/17/2021 [...] S/p post-op RT to resection cavity at [facility] 07/18/2022 Progression IMPRESSION 1. New focus of [...] could appear similar. 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7 Epilepsy HTN, goal below 130/80 10/09/2018 Hypercholesteremia Hypothyroidism due to medication 2023-07-31 Adding E03.2-Hypothyroidism due to medication Dx to History OTHER 2004 athritis OTHER 2005 Kidney stones Skin cancer 2017 PAST SURGICAL HISTORY: Past Surgical History Past Surgical History: Procedure Laterality Date ANESTHESIA FOR OPEN HEAD SURGERY 1995 for seizure control - successful BX LYMPH NODE-SUPERFIC Left 12/26/2017 BIOPSY LYMPH NODE OPEN SUPERFICIAL performed by Saw Arevalo MD at OR [facility] CHEMOTHERAPY for skin cancer from 2017 COLONOSCOPY, DIAGNOSTIC (RECTUM) 08/10/2010 diverticula COLONOSCOPY, DIAGNOSTIC (RECTUM) 06/05/2021 internal hemorrhoids/recall 5 years/COLONOSCOPY FLEXIBLE PROXIMAL DIAGNOSTIC performed by Sharon Vázquez MD at ENDOSCOPY [facility] CYSTOSCOPY 10/2005 Dr. Bone INFORMATION Left 11/14/2017 Skin lesion excised from left lower leg, in-office performed by Dr. Kelton Gillis 11/14/2017 LAPAROSCOPY, CHOLECYSTECTOMY WITH CHOLANGIOGRAPHY 01/25/2004 Laparoscopic cholecystectomy with cholangiogram at [facility] [place]. Julian NERVOUS SYSTEM SURGERY NEC N/A 09/08/2023 UNLISTED PROCEDURE NERVOUS SYSTEM performed by Bereket Lawler MD at [facility] REMOVAL OF TONSILS, AGE 12+ 2003 REMOVE SUPRATENTORIAL BRAIN TUMOR Right 08/20/2021 CRANIOTOMY BONE FLAP EXCISION BRAIN TUMOR SUPRATENTORIAL performed by Joni Hand III, MD at OR [facility] RMV MALG LSN TRK/ARM/LG 1.1-2C Left 12/26/2017 EXCISION MALIGNANT TRUNK ARM LEG 1.1 TO 2CM performed by Saw Arevalo MD at [facility] TOTAL ABD HYSTERECTOMY W/WO REMOVAL OF TUBE(S) 1999 partial [facility] SOCIAL HISTORY: Social History Socioeconomic History Marital status: Spouse name: Kwame Number of children: 2 Years of education: Not on file Highest education level: Not on file Occupational History Occupation: [employer] 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 (Adult - for ages 18 years and over): No Does your family have trouble paying for medicine? (Household - for ages 0-17 years): Not on file Food Insecurity: No Food Insecurity (09/16/2023) Food Insecurity Do you need food for [...] on file Transportation Needs: No Transportation Needs (09/16/2023) Transportation Needs Do you have trouble getting [...] - for ages 18 years and over): Not on file Do you (or your family) have trouble finding or paying for a ride (transportation)? (Household - for ages 0-17 years): Not on file Social Connections: Socially Integrated (09/16/2023) Social Connections How often do you feel lonely or isolated from those around you? (Adult - for ages 18 years and over): Never Housing Stability: Low Risk (09/16/2023) Housing Stability Do you currently live in a prison or have no steady place to sleep [...] - for ages 18 years and over): Not on file Are you (or your family) homeless or worried that you might be in the future? (Household - for ages0-17 years): Not on file FAMILY HISTORY: Family History Family History Problem Relation Name Age of Onset Heart Disorder Father stented age 60's Heart Disorder Mother a fib in 60's Breast Cancer Mother 80 Breast Cancer Sister 58 Breast Cancer Sister 62 Breast Cancer Aunt (Maternal) Current Medications Current Outpatient Medications Medication Sig Dispense Refill [...] 2 LORazepam 0.5 MG Oral Tablet (Ativan) dexAMETHasone 4 MG Oral Tablet (Decadron) Levothyroxine Sodium 175 MCG Oral Tablet (Levoxyl) Take 1 Tablet by mouth daily first thing in the morning. (at least 30 min prior to breakfast or other meds) Cephalexin 250 MG Oral Capsule (Keflex) Famotidine 20 MG Oral Tablet (Pepcid) Levothyroxine Sodium 200 MCG Oral Tablet TAKE 1 TABLET BY MOUTH ONCE DAILY IN THE MORNING AT LEAST 30 MIN BEFORE BREAKFAST OR OTHER MEDS (Patient not taking: Reported on 03/01/2024) 90 Tablet 1 No current facility-administered medications for this visit. ALLERGIES: Allergies Review of patient's allergies indicates: Allergen Reactions Erythromycin seizures ROS: A ROS was reviewed and are only positive for the above noted pertinent complaints PHYSICAL EXAMINATION: Visit Vital Signs: BP 102/68 | Pulse 70 | Temp 36.1 C (96.9 F) (Tympanic) | Ht 1.549 m (5' 1") | SpO2 98% | BMI 25.30 kg/m | BSA 1.62 m Gen: Pt found sitting in chair; NAD Ext: Warm, dry and intact Lungs: respiring comfortably Heart: normal sounds Psych: Pleasant and cooperative Neuro: AOx3 Cranial Nerves: No cranial neuropathy Diane spontaneously and to command Diffuse weakness with mild R hemiparesis Sensation equal and intact throughout BUE/BLE Mild R drift drift Gait deferred IMAGES: We reviewed the [place] scan and the L frontal lesion that under went ALYSHA has recurred with associated edema and mass effect. IMPRESSION: 63 yo with melanoma s/p multimodality therapy, with symptomatic L frontal lesion Problem List Patient Active Problem List Diagnosis Adjustment disorder [...] of cervical region Coronary artery disease involving nikolski coronary artery of nikolski heart without angina pectoris Pulmonary nodules Centrilobular emphysema (HCC) Left atrial enlargement Mild mitral regurgitation Mild tricuspid regurgitation Mild pulmonary valve regurgitation PLAN: OR 03/03 for L frontal craniotomy for resection NPO at midnight prior to OR CTH and CT CAP done Medicine consulted for preop risk strat/optimization Routine neurochecks Continue STONE SAWYER meds including keflex for recent UTI Dex 4 bid GI ppx while on steroids Chemical DVT ppx, to stop at 2200 prior to OR Hold oral chemotherapeutics for now, will resume postop Discussed with Dr. Yazan Lucio MD Neurosurgery, PGY HOSPITAL COURSE (focused): Judy Garcia was admitted to [facility] on 03/01/2024 for the below listed procedures with Joni Hand III, MD. The patient tolerated the procedure well and there were no complications. The patient wasdischarged to home with a follow-up appointment already scheduled. Operations & Procedures: Left frontal craniotomy for tumor resection with vycor tube and dynamic retraction, use of brainlabneuronavigation, use of neurophysiological monitoring (SSEP/MEP/motor language, subcortical stimulation) Complications: none significant SIGNIFICANT RESULTS: Vital Signs (last recorded): Most Recent Systolic BP: 118 mmHg (03/04/24 0841) Most Recent Diastolic BP: 73 mmHg (03/04/24 0841) Pulse: 68 (03/04/24 0841) Resp: 18 (03/04/24 0615) Most Recent Temperature: 36.89 C (03/04/24 06) Weight: 61.1 kg (134 lb 11.2 oz) (03/01/24 1308) SpO2: 96 % (03/04/24 0615) O2 flow rate: 0 L/MIN (03/04/24 0841) Labs: No new labs Imaging (focused): MRI BRAIN W WO CONTRAST 03/04/2024 Narrative EXAM MRI BRAIN W WO CONTRAST- 03/04/2024 3:28 am HISTORY postop brain tumor removal COMPARISON CT head dated 03/01/2024, MRI brain dated 02/20/2024 TECHNIQUE Multiplanar, multisequence magnetic resonance imaging of the brain was performed before and after the administration of intravenous contrast. 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 Thin enhancement at the periphery of the resection cavity, possibly reflecting prior post-ablation changes or postsurgical blood-brain barrier disruption. Similar-appearing left frontoinsular edema. Postsurgical changes of prior right parietal and occipital craniotomies are again noted with stable encephalomalacia and linear enhancement in the right parietal lobe There is no evidence of acute intracranial hemorrhage, transcortical infarction, hydrocephalus, or extra-axial fluid collection. The paranasal sinuses and mastoid air cells are predominantly clear. Degenerative changes and a CT of partially imaged in the upper cervical spine. Impression IMPRESSION Expected interval postoperative changes of left frontal craniotomy for 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 CONSULTS ORDERED: ADULT PHYSICAL THERAPY CONSULT IP ADULT OCCUPATIONAL THERAPY CONSULT IP GENERAL INTERNAL MEDICINE CONSULT IP WOUND/OSTOMY CONSULT IP ADULT PHYSICAL THERAPY CONSULT IP ADULT OCCUPATIONAL THERAPY CONSULT IP REFERRING PHYSICIAN: REF: BALDEV SOLORIO PRIMARY CARE PROVIDER: PCP: Baldev Solorio MD [facility] [id number] (office) [phone] (fax) Note: To contact a physician responsible for this patients hospital care, please call [facility] [phone]. Total discharge time was 35 minutes Jaimee Miller, PA-C Lead Physician Political Science Research Assistant, Department of Neurosurgery Machine Rebuilder of Neurosurgery, [facility] 03/04/2024 documented in this encounter Discharge Instructions * Discharge Instr - AVS* Dre Medina PA-C - 03/04/2024 11:47 AM EDT DISCHARGE INSTRUCTIONS [address] [id number] Patient Name: Judy Garcia Discharge Date: 03/04/2024 You may call Joni Hand III, MD of the department of Neurosurgery at during business hours for any questions or test results. For after- hours emergencies call and have your doctor paged. The information below provides you with the instructions and the list of medications you need to betaking following discharge from the hospital. If you have any questions, please ask before leaving.Please carry this letter with you when you see your doctor in the clinic. If you have questions, you can reach us at the numbers above. Brief summary of your inpatient care: You were admitted to [facility] on 03/01/2024 for the below listed procedures with Joni Hand III, MD. You tolerated the procedure well and there were no complications. You were discharged to home with a follow-up appointment already scheduled. Your doctors during this hospitalization included: Joni Hand III, MD Your primary diagnosis at discharge was: Left deep frontal symptomatic recurrent brain metastasis from melanoma despite previous SRS and ALYSHA Inpatient test results pending: Final pathology Operations & Procedures: Left frontal craniotomy for tumor resection with vycor tube and dynamic retraction, use of brainlabneuronavigation, use of neurophysiological monitoring Complications: none significant Advance Directive Documented: Advance Directive Does the Patient have an Advance Directive? No Allergies: Erythromycin Diet: Normal diet Activity: No strenuous activity for four weeks and No lifting or pushing or pulling more than 10 lbs for four weeks Driving: Will be discussed at first post operative appointment Date you may return to work or school: Based on further instruction reviewed by surgeon after follow up visit. See your primary care physician (Baldev Solorio MD) as normally scheduled Special Instructions: IF YOU HAVE ANY OF THE FOLLOWING STROKE SYMPTOMS, CALL 911 IMMEDIATELY. BE FAST Balance - Loss of balance, headache or dizziness Eyes - Blurred vision Face - One side of the face is drooping. Arms - Arm or leg weakness Speech - Speech difficulty Time - Time to call for ambulance immediately Do not smoke or use tobacco products in any way! DISCHARGE INSTRUCTIONS Hygiene Keep the incision clean, dry and open to the air. The andre or sutures may be removed in approximately 10-14 days. Some sutures will not need to be removed. Do not place anything constrictive directly over the incision line (christianity piece of eyeglasses, elastic bands etc.) You may shower and wash your hair; use baby shampoo. Avoid prolonged soaking, aggressive scrubbing or rubbing for about 3 weeks. Do not direct water onto the incision. Do not sit in a tub of water and submerge the incision. Pat the incision dry after showering. Itching or burning are normal healing symptoms. Do not apply any creams, powders or oils near the incision. Avoid perms, dyes or bleaching of hair for about 4 weeks after surgery. A small collection of fluid may develop underneath the skin near the incision. This is not uncommon and is usually reabsorbed in time. The swelling tends to be worse in the A.M. and will fluctuate throughout the day. To keep swelling to a minimum: sleep with the head elevated on several pillows keep active and out of bed throughout the day Diet Same as before your surgery. Activities No heavy lifting (greater than 5-10 pounds). No strenuous activities. Avoid any activity that requires you to bend at your waist. Instead, bend at your knees. If you bend at the waist, it may cause too much pressure to the surgical area. Also, avoid activities which require you to hold your breath. You should take a walk every day, weather permitting. Start with a 5 minute walk and gradually increase the length as you are able to tolerate. Sexual relations are permissible, but not too vigorous. Avoid heavy house and garden work (lifting laundry, digging, shoveling etc.) Avoid driving or returning to work for 6-12 weeks, or until told by your surgeon that it is okay todo either. You may go up and down stairs as tolerated. Use the railing when doing so as a precaution. Medication Medication had been prescribed for you to help to relieve your pain. If you need it, use it. If youhave no pain, it is not necessary to take the medication. Admn-tpi-foaedpk medications may be taken for minor pain (Tylenol, Advil etc.) Headaches are common and expected after a craniotomy. They should be relieved by the pain medication and should not get progressively or suddenly worse after discharge. Some pain medication may cause constipation. The use of uyjv-phn-jcsvzub laxatives is safe (Ex-lax, Correctol, Colace, Milk of Magnesia). See the hospital discharge form regarding additional medication instructions. When to call the Neurosurgeons office: Please call your surgeons office at [phone] if you notice any of the following symptoms: Redness, swelling, tenderness or any type of drainage from your incision. If the fluid collection underneath the skin near the incision persists longer than 2 weeks or if there is a sudden and significant increase in size of the collection. Excessive sleeping, confusion or vomiting for long periods of time. Headaches which persist in spite of pain medication or suddenly become worse in intensity. Any change in sensation or strength in your arms or legs. Body temperature over 100O F for more than 2 days. 7. If you or your family feels that you are not doing well. Follow-up: Instructions for your first post-operative appointment are either given to you on your hospital discharge form or they will be mailed to you soon. If you do not hear from my office within a week, please contact me for follow-up arrangements. If you have any specific questions not covered in these instructions, please feel free to call the office and check with the doctor or physician esol teacher assistant. If you have an urgent question/issue after normal business hours, please call the office number andask for the neurosurgeon vaccines solutions specialist. If you feel suicidal or homicidal, please call the crisis hotline at [phone] ([phone]). * PLEASE TAKE THIS FORM TO YOUR NEXT VISIT WITH YOUR PRIMARY CARE PHYSICIAN. Have You Signed Up for [email or web address]? To access portions of your medical record and to communicate with your [facility] physicians electronically, logon to [email or web address], your online health management tool. documented in this encounter Progress Notes * Ari Lucio MD - 03/03/2024 9:03 AM EDT NEUROLOGICAL SURGERY PROGRESS NOTE [address] [place] [address] Name: Judy Garcia [place] [facility] [place] Date: 03/03/2024 Time: 9:03 AM SUBJECTIVE: NAEO OBJECTIVE: Most recent vital signs: BP: 120 mmHg/64 mmHg (03/03/24699) Pulse: 64 (03/03/24699) Resp: 17 (03/03/24699) Temp: 36.39 C (03/03/24644) Temp Summary: Temp Min: 36.1 C (97 F) Max: 37.2 C (99 F) SpO2: 95 % (03/03/24699) O2 flow rate: Supplemental O2 Delivery: Room Air, None (03/03/24644) Vital signs over last 24 hours: Systolic BP: Most Recent Systolic BP Av mmHg Min: 98 mmHg Max: 120 mmHg Temperature: Most Recent Temperature Av.6 C Min: 36.11 C Max: 37.22 C Pulse: Pulse Avg: Pulse Av.4 Min: 61 Max: 70 Respirations: Resp Av.8 Min: 17 Max: 18 SpO2: SpO2 Av.8 % Min: 92 % Max: 97 % SpO2: SpO2 Av.8 % Min: 92 % Max: 97 % FiO2%: No data recorded ICP: No data found.CPP (adult): No data found.Intake Input/Output: (last 24 hours) No intake or output data in the 24 hours ending 03/03/24 0903 Neurologic Examination Gen: Pt found sitting in chair; NAD Ext: Warm, dry and intact Lungs: respiring comfortably Heart: normal sounds Psych: Pleasant and cooperative Neuro: AOx3 Cranial Nerves: No cranial neuropathy Diane spontaneously and to command Mild R hemiparesis Sensation equal and intact throughout BUE/BLE Mild R drift drift Gait deferred LABS: Blood count: Lab Results Component Value Date/Time WBC 7.95 03/01/2024 01:16 PM WBC 8.18 05/10/2020 02:10 PM HGB 13.5 03/01/2024 01:16 PM HGB 12.8 05/10/2020 02:10 PM HCT 40.1 03/01/2024 01:16 PM HCT 36.9 05/10/2020 02:10 PM PLT 334 03/01/2024 01:16 PM PLT 359 05/10/2020 02:10 PM Coagulation studies: Lab Results Component Value Date/Time INR 0.8 03/01/2024 01:16 PM Chemistry: Lab Results Component Value Date/Time BUN 18 03/01/2024 01:16 PM BUN 10 05/10/2020 02:10 PM CREAT 0.7 03/01/2024 01:16 PM CREAT 0.8 05/10/2020 02:10 PM GFRESTIMATED >60.0 05/10/2020 02:10 PM NA 138 03/01/2024 01:16 PM NA 130 (L) 05/10/2020 02:10 PM POTASSIUM 3.3 (L) 03/01/2024 01:16 PM POTASSIUM 4.0 05/10/2020 02:10 PM CO2 25 03/01/2024 01:16 PM CO2 28 05/10/2020 02:10 PM Imaging studies: No new images Problem list: Principal Problem: Metastasis to brain (HCC) Resolved Problems: * No resolved hospital problems. * CLINICAL HISTORY AND PLAN: Judy Garcia is a 63 yo with melanoma s/p multimodality therapy, with symptomatic L frontal lesion OR 03/03 for L frontal craniotomy for resection NPO at midnight prior to OR CTH and CT CAP done Medicine consulted for preop risk strat/optimization Routine neurochecks Continue STONE SAWYER meds including keflex for recent UTI Dex 4 bid GI ppx while on steroids Hold oral chemotherapeutics for now, will resume postop Discussed with Dr. Yazan Lucio MD Neurosurgery, PGY3 Associated attestation - Joni Hand III, MD - 03/03/2024 10:48 AM EDT I saw and evaluated the patient today. I have reviewed the resident/fellow physician note and agree. * Ari Lucio MD - 03/02/2024 7:23 AM EDT NEUROLOGICAL SURGERY PROGRESS NOTE [address] [address] Name: Judy Garcia [place] [facility] [place] A470[place] Date: 03/02/2024 Time: 7:23 AM SUBJECTIVE: NAEO OBJECTIVE: Most recent vital signs: BP: 98 mmHg/55 mmHg (03/02/24631) Pulse: 65 (03/02/24631) Resp: 18 (03/02/24631) Temp: 36.61 C (03/02/24631) Temp Summary: Temp Min: 36.1 C (96.9 F) Max: 36.8 C (98.2 F) SpO2: 94 % (03/02/24631) O2 flow rate: Supplemental O2 Delivery: Room Air, None (03/02/24 07) Vital signs over last 24 hours: Systolic BP: Most Recent Systolic BP Av.4 mmHg Min: 96 mmHg Max: 124 mmHg Temperature: Most Recent Temperature Av.4 C Min: 36.06 C Max: 36.78 C Pulse: Pulse Avg: Pulse Av.2 Min: 65 Max: 80 Respirations: Resp Av.5 Min: 16 Max: 18 SpO2: SpO2 Av.4 % Min: 94 % Max: 100 % SpO2: SpO2 Av.4 % Min: 94 % Max: 100 % FiO2%: No data recorded ICP: No data found.CPP (adult): No data found.Intake Input/Output: (last 24 hours) Intake/Output Summary (Last 24 hours) at 03/02/2024 0723 Last data filed at 03/01/2024 1830 Gross per 24 hour Intake 240 ml Output -- Net 240 ml Neurologic Examination Gen: Pt found sitting in chair; NAD Ext: Warm, dry and intact Lungs: respiring comfortably Heart: normal sounds Psych: Pleasant and cooperative Neuro: AOx3 Cranial Nerves: No cranial neuropathy Diane spontaneously and to command Mild R hemiparesis Sensation equal and intact throughout BUE/BLE Mild R drift drift Gait deferred LABS: Blood count: Lab Results Component Value Date/Time WBC 7.95 03/01/2024 01:16 PM WBC 8.18 05/10/2020 02:10 PM HGB 13.5 03/01/2024 01:16 PM HGB 12.8 05/10/2020 02:10 PM HCT 40.1 03/01/2024 01:16 PM HCT 36.9 05/10/2020 02:10 PM PLT 334 03/01/2024 01:16 PM PLT 359 05/10/2020 02:10 PM Coagulation studies: Lab Results Component Value Date/Time INR 0.8 03/01/2024 01:16 PM Chemistry: Lab Results Component Value Date/Time BUN 18 03/01/2024 01:16 PM BUN 10 05/10/2020 02:10 PM CREAT 0.7 03/01/2024 01:16 PM CREAT 0.8 05/10/2020 02:10 PM GFRESTIMATED >60.0 05/10/2020 02:10 PM NA 138 03/01/2024 01:16 PM NA 130 (L) 05/10/2020 02:10 PM POTASSIUM 3.3 (L) 03/01/2024 01:16 PM POTASSIUM 4.0 05/10/2020 02:10 PM CO2 25 03/01/2024 01:16 PM CO2 28 05/10/2020 02:10 PM Imaging studies: No new images Problem list: Principal Problem: Metastasis to brain (HCC) Resolved Problems: * No resolved hospital problems. * CLINICAL HISTORY AND PLAN: Judy Garcia is a 63 yo with melanoma s/p multimodality therapy, with symptomatic L frontal lesion OR 03/03 for L frontal craniotomy for resection NPO at midnight prior to OR CTH and CT CAP done Medicine consulted for preop risk strat/optimization Routine neurochecks Continue STONE SAWYER meds including keflex for recent UTI Dex 4 bid GI ppx while on steroids Chemical DVT ppx, to stop at 2200 prior to OR Hold oral chemotherapeutics for now, will resume postop Discussed with Dr. Yazan Lucio MD Neurosurgery, PGY3 Associated attestation - Joni Hand III, MD - 03/02/2024 7:38 AM EDT I saw and evaluated the patient today. I have reviewed the resident/fellow physician note and agree. documented in this encounter H&P Notes * Joni Hand III, MD - 03/03/2024 6:59 AM EDT HISTORY & PHYSICAL INTERVAL NOTE [facility] [place] [id number] History and Physical Update: Name: Judy Garcia Location: [place] [facility] [place] Date: 03/03/2024 Time: 7:00 AM DATE OF HISTORY AND PHYSICAL: 03/01/24 BP: 111 mmHg/66 mmHg (03/03/24611) Pulse: 61 (03/03/24611) Resp: 18 (03/03/24611) Temp: 36.39 C (03/03/24644) Temp Summary: Temp Min: 36.1 C (97 F) Max: 37.2 C (99 F) SpO2: 92 % (03/03/24611) O2 flow rate: Supplemental O2 Delivery: Room Air, None (03/03/24644) Did patient stop anticoagulants? None Heart Exam: regular rate and rhythm Lung Exam: clear to auscultation bilaterally Other Pertinent Physical Exam: NA I have reviewed the H&P previously performed and examined the patient today. There are no new findings noted. * Ari Lucio MD - 03/01/2024 7:09 PM EDT Images from the original note were not included. 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 She is on steroids. She has worsening altered mental status, falls, speech disturbance, R sided weakness. Went to OSH and was seen there and admitted. Steroids improved symptoms. Ida denies any pain, seizures, dizziness, blurred vision, nausea, vomiting, change in bowel or bladder habitus; personality or memory. Oncology History Treatment Summary Treatment Summary Malignant melanoma of left lower extremity (HCC) 12/26/2017 Initial Diagnosis Malignant melanoma of left lower extremity (HCC) 01/26/2018 - 03/29/2019 Chemotherapy NIVOLUMAB 240 mg D 1,15 (6 Cycles/28 Days) [id number] 09/17/2021 - Chemotherapy DABRAFENIB (TAFINLAR) & TRAMETINIB (MEKINIST) [id number] Malignant 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) 08/17/2021 [...] S/p post-op RT to resection cavity at [facility] 07/18/2022 Progression IMPRESSION 1. New focus of [...] could appear similar. 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7 Epilepsy HTN, goal below 130/80 10/09/2018 Hypercholesteremia Hypothyroidism due to medication 2023-07-31 Adding E03.2-Hypothyroidism due to medication Dx to History OTHER 2004 athritis OTHER 2005 Kidney stones Skin cancer 2017 PAST SURGICAL HISTORY: Past Surgical History Past Surgical History: Procedure Laterality Date ANESTHESIA FOR OPEN HEAD SURGERY 1995 for seizure control - successful BX LYMPH NODE-SUPERFIC Left 12/26/2017 BIOPSY LYMPH NODE OPEN SUPERFICIAL performed by Saw Arevalo MD at [facility] CHEMOTHERAPY for skin cancer from 2017 COLONOSCOPY, DIAGNOSTIC (RECTUM) 08/10/2010 diverticula COLONOSCOPY, DIAGNOSTIC (RECTUM) 06/05/2021 internal hemorrhoids/recall 5 years/COLONOSCOPY FLEXIBLE PROXIMAL DIAGNOSTIC performed by Sharon Vázquez MD at [facility] CYSTOSCOPY 10/2005 Dr. Smitha FOY Left 11/14/2017 Skin lesion excised from left lower leg, in-office performed by Dr. Kelton Gillis 11/14/2017 LAPAROSCOPY, CHOLECYSTECTOMY WITH CHOLANGIOGRAPHY 01/25/2004 Laparoscopic cholecystectomy with cholangiogram at [facility]. Julian NERVOUS SYSTEM SURGERY NEC N/A 09/08/2023 UNLISTED PROCEDURE NERVOUS SYSTEM performed by Bereket Lawler MD at [facility] REMOVAL OF TONSILS, AGE 12+ 2003 REMOVE SUPRATENTORIAL BRAIN TUMOR Right 08/20/2021 CRANIOTOMY BONE FLAP EXCISION BRAIN TUMOR SUPRATENTORIAL performed by Joni Hand III, MD at [facility] MALG LSN TRK/ARM/LG 1.1-2C Left 12/26/2017 EXCISION MALIGNANT TRUNK ARM LEG 1.1 TO 2CM performed by Saw Arevalo MD at [facility] TOTAL ABD HYSTERECTOMY W/WO REMOVAL OF TUBE(S) 1999 partial [facility] SOCIAL HISTORY: Social History Socioeconomic History Marital status: Spouse name: Kwame Number of children: 2 Years of education: Not on file Highest education level: Not on file Occupational History Occupation: [employer] 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 (Adult - for ages 18 years and over): No Does your family have trouble paying for medicine? (Household - for ages 0-17 years): Not on file Food Insecurity: No Food Insecurity (09/16/2023) Food Insecurity Do you need food for [...] on file Transportation Needs: No Transportation Needs (09/16/2023) Transportation Needs Do you have trouble getting [...] - for ages 18 years and over): Not on file Do you (or your family) have trouble finding or paying for a ride (transportation)? (Household - for ages 0-17 years): Not on file Social Connections: Socially Integrated (09/16/2023) Social Connections How often do you feel lonely or isolated from those around you? (Adult - for ages 18 years and over): Never Housing Stability: Low Risk (09/16/2023) Housing Stability Do you currently live in a prison or have no steady place to sleep [...] - for ages 18 years and over): Not on file Are you (or your family) homeless or worried that you might be in the future? (Household - for ages0-17 years): Not on file FAMILY HISTORY: Family History Family History Problem Relation Name Age of Onset Heart Disorder Father stented age 60's Heart Disorder Mother a fib in 60's Breast Cancer Mother 80 Breast Cancer Sister 58 Breast Cancer Sister 62 Breast Cancer Aunt (Maternal) Current Medications Current Outpatient Medications Medication Sig Dispense Refill [...] 2 LORazepam 0.5 MG Oral Tablet (Ativan) dexAMETHasone 4 MG Oral Tablet (Decadron) Levothyroxine Sodium 175 MCG Oral Tablet (Levoxyl) Take 1 Tablet by mouth daily first thing in the morning. (at least 30 min prior to breakfast or other meds) Cephalexin 250 MG Oral Capsule (Keflex) Famotidine 20 MG Oral Tablet (Pepcid) Levothyroxine Sodium 200 MCG Oral Tablet TAKE 1 TABLET BY MOUTH ONCE DAILY IN THE MORNING AT LEAST 30 MIN BEFORE BREAKFAST OR OTHER MEDS (Patient not taking: Reported on 03/01/2024) 90 Tablet 1 No current facility-administered medications for this visit. ALLERGIES: Allergies Review of patient's allergies indicates: Allergen Reactions Erythromycin seizures ROS: A ROS was reviewed and are only positive for the above noted pertinent complaints PHYSICAL EXAMINATION: Visit Vital Signs: BP 102/68 | Pulse 70 | Temp 36.1 C (96.9 F) (Tympanic) | Ht 1.549 m (5' 1") | SpO2 98% | BMI 25.30 kg/m | BSA 1.62 m Gen: Pt found sitting in chair; NAD Ext: Warm, dry and intact Lungs: respiring comfortably Heart: normal sounds Psych: Pleasant and cooperative Neuro: AOx3 Cranial Nerves: No cranial neuropathy Diane spontaneously and to command Diffuse weakness with mild R hemiparesis Sensation equal and intact throughout BUE/BLE Mild R drift drift Gait deferred IMAGES: We reviewed the [place] scan and the L frontal lesion that under went ALYSHA has recurred with associated edema and mass effect. IMPRESSION: 63 yo with melanoma s/p multimodality therapy, with symptomatic L frontal lesion Problem List Patient Active Problem List Diagnosis Adjustment disorder [...] of cervical region Coronary artery disease involving nikolski coronary artery of nikolski heart without angina pectoris Pulmonary nodules Centrilobular emphysema (HCC) Left atrial enlargement Mild mitral regurgitation Mild tricuspid regurgitation Mild pulmonary valve regurgitation PLAN: OR 03/03 for L frontal craniotomy for resection NPO at midnight prior to OR CTH and CT CAP done Medicine consulted for preop risk strat/optimization Routine neurochecks Continue STONE SAWYER meds including keflex for recent UTI Dex 4 bid GI ppx while on steroids Chemical DVT ppx, to stop at 2200 prior to OR Hold oral chemotherapeutics for now, will resume postop Discussed with Dr. Yazan Lucio MD Neurosurgery, PGY3 Associated attestation - Joni Hand III, MD - 03/02/2024 6:57 AM EDT I saw and evaluated the patient 03/01/24. I have reviewed the resident/fellow physician note and agree. documented in this encounter Procedure Notes * Bobo Agarwal Au.D. - 03/03/2024 11:41 AM EDT INTRAOPERATIVE NEUROPHYSIOLOGIC MONITORING REPORT Date of study: 03/03/2024 Patient name: Judy Garcia MR#: [id number] :1960 Age: [age] year old Surgeon: Yazan Service: Neurosurgery Operation: Left frontal craniotomy for tumor resection PURPOSE FOR MONITORING: Per the operative report, intraoperative neurophysiologic monitoring was performed for: Left frontal recurrent brain metastasis 48354 Somatosensory Evoked Potentials, Upper and Lower Limbs 58715 Central Motor Evoked Potentials, Upper and Lower Limbs 14977 EMG Limited study - Right upper and Right lower 14618 EEG extended >1 hour Monitored in real time by neurophysiologist remote 1 patient / 15 mins [G0453]: 6 units Dock Operations Supervisor / 15 mins: 16 units Monitorist/technologist: Robert Pt in room: 0805 Intubation: 0820 Incision: 0926 Completed closin MONITORING MODALITIES AND EQUIPMENT: Somatosensory evoked responses (SSEPs) were performed to assess the physiologic integrity of the bilateral upper and lower extremity somatosensory pathways intraoperatively. Recording electrodes wereplaced on the scalp, bilateral Erbs points, and over the C5 vertebra. Stimulating electrodes were placed over the bilateral median nerves at the wrists and bilateral posterior tibial nerves at theankles. Transcranial (anodal), direct cortical (anodal), and subcortical (cathodal) short-train electric motor-evoked potentials (TcMEP, dcMEP, scMEP) were performed to assess the physiologic integrity of the motor pathways supplying the below-referenced muscles of the upper and lower extremities intraopera tively. Subdermal stainless steel recording electrodes were placed in the contralateral (right) vocalis, trapezius-deltoid (TRAP-DEL), flexor carpi radialis-brachoradialis (FCR-BR), thenar-hypothenar(APB-ADM), adductor- quadriceps (ADD-QD), tibialis anterior-gastrocnemius (TA-GAS), and abductor funk ucis (AH-AH) muscles, and in the ipsilateral (left) vocalis, APB-ADM and AH-AH muscles. Electroencephalography (EEG) was continuously recorded from standard 10-20 electrodes and visually analyzed in the following montage: Fp1-T7, T7-O1; Fp1- C3', C3'-O1; Fp2-T8,T8-O2; Fp2-C4' C4'-O2. Repetitive gadun-df-qscw stimulation was carried out to monitor the neuromuscular junction. Recordings were made using a MyFit Intraoperative Monitoring Apparatus. DESCRIPTION OF THE RECORD: SSEPs: The bilateral upper extremity SSEPs were reproducible and satisfactory for monitoring at baseline. The bilateral upper extremity SSEP amplitudes and latencies remained stable throughout the operation. The bilateral lower extremity SSEPs were reproducible and satisfactory for monitoring at baseline. The bilateral lower extremity SSEP amplitudes and latencies remained stable throughout the operation. TcMEP: Constant-voltage stimulation was used. Stimulus intensity was adjusted to reduce co-activation of the ipsilateral side. TcMEPs were elicited from all monitored muscle groups. Surgeon was notified that the responses were reproducible and satisfactory for monitoring at baseline. TcMEP responses remained stable throughout the case. EEG: The EEG was symmetric and continuous without focal slowing or epileptiform discharges. Burst suppression was noted and anesthesia was made aware to manage anesthetic protocol to avoid burst suppression if possible. EEG remained stable throughout the operation without afterdischarges or seizures. Direct cortical motor evoked potentials (dcMEP): Monopolar stimulation was applied to cortex using a ball-tip probe, and the presence or absence of motor responses was reported in real-time to the surgeon. Particular attention was given to the presence or absence of short- and long- latency responses in the vocalis muscle, which represent activation of laryngeal primary motor cortex and caudal opercular inferior frontal gyrus (Broca's area), respectively. No dcMEP responses were obtained with stimulation intensities up to 25 mA. Subcortical electric motor evoked potentials (scMEP): Left hemispheric subcortical monopolar electric stimulation of motor pathways was performed. Stimulus intensities of up to 10 mA were used to stimulate around the tumor margins. The surgeon was advised and acknowledged the presence or absence of motor response and corresponding stimulus intensity at each selected site. Please refer to the IONM event log scanned into the electronic medical record for additional details IMPRESSION: . No significant changes in the bilateral upper or lower extremity SSEPs intraoperatively. . No significant changes in the bilateral upper or lower extremity TcMEPs intraoperatively. . Left hemispheric direct cortical and subcortical stimulation findings as noted above. . No seizure activity on scalp EEG during resection or electrical stimulation of the brain. . No complications secondary to IONM. Andrew Reina MD Neurophysiologist documented in this encounter Consult Notes * Jed Moran, KLAUDIAR/L - 03/04/2024 10:55 AM EDTAssociated Order(s): ADULT OCCUPATIONAL THERAPY CONSULT IP GENERAL EVALUATION - Occupational Therapy [address] [address] Name: Judy Garcia [place] [facility] [place] A470/[place] Date: 03/04/2024 Time: 10:55 AM Judy Garcia is a 63 year old female. Patient Status: Inpatient Insurance: Payor: [facility] Outernet Plan: [facility] PREFERRED ENHANCED MP-DD Product Type: *No Product type* Patient Seen: at bedside, nursing cleared patient for therapy Patient Identified By: Name, ID Band and Date Diagnosis: brain mets, s/p crani (03/04/241000) Status of treatment: Re-evaluation (03/04/241000) Orders: OT evaluation and treatment (03/04/241000) Weight Bearing Status: Weight bearing as tolerated (03/04/241000) Precautions: Alarms;Falls;Safety (03/04/241000) Total Treatment Time: 23 (03/04/241000) Past Medical History: 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7 Epilepsy HTN, goal below 130/80 10/09/2018 Hypercholesteremia Hypothyroidism due to medication 2023-07-31 Adding E03.2-Hypothyroidism due to medication Dx to History OTHER 2004 athritis OTHER 2005 Kidney stones Skin cancer 2017 Past Surgical History: Past Surgical History: Procedure Laterality Date ANESTHESIA FOR OPEN HEAD SURGERY 1995 for seizure control - successful BX LYMPH NODE-SUPERFIC Left 12/26/2017 BIOPSY LYMPH NODE OPEN SUPERFICIAL performed by Saw Arevalo MD at OR [facility] CHEMOTHERAPY for skin cancer from 2017 COLONOSCOPY, DIAGNOSTIC (RECTUM) 08/10/2010 diverticula COLONOSCOPY, DIAGNOSTIC (RECTUM) 06/05/2021 internal hemorrhoids/recall 5 years/COLONOSCOPY FLEXIBLE PROXIMAL DIAGNOSTIC performed by Sharon Vázquez MD at ENDOSCOPY [facility] CYSTOSCOPY 10/2005 Dr. Bone INFORMATION Left 11/14/2017 Skin lesion excised from left lower leg, in-office performed by Dr. Kelton Gillis 11/14/2017 LAPAROSCOPY, CHOLECYSTECTOMY WITH CHOLANGIOGRAPHY 01/25/2004 Laparoscopic cholecystectomy with cholangiogram [place] [facility] [place]. Julian MICROSURGERY ADD-ON Left 03/03/2024 MICROSURGICAL SURGERY REQUIRING MICROSCOPE LISTED SEPARATELY performed by Joni Hand III, MD at OR [facility] NERVOUS SYSTEM SURGERY NEC N/A 09/08/2023 UNLISTED PROCEDURE NERVOUS SYSTEM performed by Bereket Lawler MD at OR [facility] REMOVAL OF TONSILS, AGE 12+ 2003 REMOVE SUPRATENTORIAL BRAIN TUMOR Right 08/20/2021 CRANIOTOMY BONE FLAP EXCISION BRAIN TUMOR SUPRATENTORIAL performed by Joni Hand III, MD at OR [facility] REMOVE SUPRATENTORIAL BRAIN TUMOR Left 03/03/2024 CRANIOTOMY BONE FLAP EXCISION BRAIN TUMOR SUPRATENTORIAL performed by Joni Hand III, MDa OR [facility] RMV MALG LSN TRK/ARM/LG 1.1-2C Left 12/26/2017 EXCISION MALIGNANT TRUNK ARM LEG 1.1 TO 2CM performed by Saw Arevalo MD at OR [facility] STEREOTACTIC CRANIAL INTRADURAL NAVIGATION Left 03/03/2024 STEREOTACTIC CRANIAL INTRADURAL NAVIGATION performed by Joni Hand III, MD at OR [facility] TOTAL ABD HYSTERECTOMY W/WO REMOVAL OF TUBE(S) 1999 partial CCH Subjective: Pt supine in bed, agreeable to OT session. Pain: No complaints of pain Observations Consciousness: Alert (03/04/24 1001) Orientation: Person;Place (03/04/24 1001) Cognitive Limitations: Processing;Problem solving (03/02/24 1125) Psychosocial: Patient can communicate basic needs;Patient can converse in a social setting (03/04/241000) Sitting posture: Forward head;Rounded shoulders (03/04/241000) Standing posture: Forward head;Rounded shoulders (03/04/241000) Safety awareness: The Patient verbalizes insight of current deficits.;Needs cueing supervision. (03/04/241000) Other Findings Endurance: Fair (03/04/241000) Light touch sensation: LUE;RUE;Intact (03/04/241000) Coordination: LUE;RUE;Intact (03/04/241000) Current Functional Status: Bilateral Upper Extremity Range of Motion: WFL (03/04/241000) Strength Assessment: (BUE 4/5 throughout) (03/04/241000) Self Care Toileting: Supervision (Please comment) (kit-care) (03/04/241000) Dressing Upper Body: Minimal Assistance (to don/doff robe) (03/04/241000) Lower Body: Supervision (Please comment) (to doff/don socks) (03/04/241000) Functional Ambulation Assistive Device: Rolling walker (03/04/241000) Distance in feet:: 350 (+ 15 + 50) (03/04/241000) Level of Assistance: Contact Guard (03/04/241000) Bed Mobility Supine-Sit: Supervision (Please comment) (03/04/241000) Sit-Supine: Supervision (Please comment) (03/04/241000) OT Transfers Sit-Stand: Contact Guard (03/04/241000) Stand-Sit: Contact Guard (03/04/241000) Toilet: Contact Guard (to supervision) (03/04/241000) Balance Sit (Static): Fair (03/04/241000) Sit (Dynamic): Fair (03/04/241000) Stand (Static): Fair (to fair-) (03/04/241000) Stand (Dynamic): Fair (-) (03/04/241000) Alarm Status Patient positioned in: Bed (03/04/241000) With: Bed alarm intact and functioning and call kohler in reach (03/04/241000) Patient and Family Goals: to get well and to return home Patient Education Education Topic: Role of OT;Plan of care goals (03/04/241000) Review of Precautions: Safety;Fall (03/04/241000) Method of Education: Verbalized to patient (03/04/241000) Education Provided to: Patient (03/04/241000) Response to Education: Receptive and agreeable to education (03/04/241000) Barriers to learning: Medical status (03/04/241000) Preferred learning method: Combination (03/04/241000) Treatment Provided: Self Intermediate Management Trainin minutes Re-evaluation 14 minutes Deficits Requiring O.T. Treatment: Deficits requiring O.T. treatment needs: ADL/self-care;Balance;Endurance;Functional mobility;Safety;Upper extremity strength;Weakness (03/04/241000) Assessment: Patient was admitted to [facility] on 03/01/24 for metastasis to brain. Patient was seen this date for OT re-evaluation s/p OR for L frontal metastatic melanoma resection with Dr. Hand on 03/03/24. During session patient pleasant but slightly confused; oriented to person and place only. She demonstrates fair BUE strength. Bed mobility completed with supervision, transfers with contact guardand functional mobility of 350ft completed with walker at contact guard assist. Pt slightly unsteady however pt reports is her baseline. She completed toilet transfer with contact guard to sit and supervision to stand and hygiene with supervision. Further mobility of 15ft + 50ft completed with above noted assistance. Pt completed UB dressing with Dennise to don and maria c hollande assisting to thread/unthread one arm and socks donned with supervision. Overall pts functional status is about the same as prior to surgery with slight improvement noted in mobility. Patient requesting further therapy following hospital stay but feels she will be ok at home with assistance from as needed. Currently, patients presents with deficits in ADLs, functional transfers and mobility, as well as decreased strength, endurance, balance and safety. Patient would benefit from continued OT services to improve independence in ADLs and functional mobility. When medically appropriate, Please consider home with post- acute care services which may include home health or outpatient therapy. The level of care willbe determined in collaboration with the patient, family/caregiver and care team members. Goals: Demonstrates Self-Care at: UB Bathing: modified independent LB Bathing: modified independent UB Dressing: modified independent to don gown/robe/shirt LB Dressing: modified independent to don socks/shoes/pants Grooming: modified independent Toileting: modified independent Demonstrates Bed Mobility at: Supine to sit: modified independent Sit to supine: modified independent Rolling left/right: modified independent Demonstrates balance at: Dynamic/Static Sitting balance: Fair+ Dynamic/Static Standing balance: Fair+ Transfers: Sit to Stand: modified independent Stand to Sit: modified independent Toilet: modified independent Functional Ambulation at modified independent with AD PRN Increase Strength of B UEs 1/2 muscle grade Goal Time Frame: 8 visits Treatment Plan: Safety, Bed mobility training, Functional Ambulation, Transfer Training, Upper extremity strengthening, Balance activities, ADL training and Endurance Anticipated Frequency (on eval): (1-5) (03/04/241000) AM-PAC Help From Another Person Eating Meals: A little (03/04/241000) Help From Another Person Taking Care of Personal Grooming: A little (03/04/241000) Help From Another Person To Put On/Take Off Upper Body Clothing: A little (03/04/241000) Help From Another Person To Put On/Take Off Lower Body Clothing: A little (03/04/241000) Help From Another Person Toileting: A little (03/04/241000) Help From Another Person Bathing: A little (03/04/241000) OT AM-PAC Score: 18 (03/04/241000) OT AM-PAC t-Scale Score: 38.66 (03/04/241000) HLM (Highest Level of Mobility) Goal: Level 6 walk 10 steps or more (03/04/24 0800) A portion of this AM-PAC assessment not scored based on functional assessment; rather clinical decision making utilized based on current findings and/or prior level of function. Please refer to future AM-PAC calculations of functional ability as they become available. * Janet Tejada RN - 03/04/2024 10:52 AM EDTAssociated Order(s): WOUND/OSTOMY CONSULT IP Wound / Ostomy Nurse Consult Note Wound Ostomy asked to see this 63 year old patient for sacral slit. Recommendations: Silicone moisture barrier cream to chasidy cleft Q shift and prn with cleansing Turn and reposition Q 2 hours Limit time sitting to < 2 hours at a time; utilize waffle/bubble cushion while sitting Heel elevation off mattress at all times -utilize offloading heel boots as needed Will sign off. Call with changes in wound appearance or new concerns. Admitted 03/01/2024 for left frontal brain mets. 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 Right upper buttock with ecchymosis, appears traumatic. Chasidy cleft pink, intact. * Gail Nguyen, PT - 03/04/2024 10:24 AM EDTAssociated Order(s): ADULT PHYSICAL THERAPY CONSULT IP STAT GENERAL RE-EVALUATION - Physical Therapy [facility] [id number] Name: Judy Garcia Location: [facility] A470/A Date: 03/04/2024 Time: 1024 Judy Garcia is a/an 63 year old female. Patient Status: Inpatient Insurance: Payor: [facility] Plan: [facility] PREFERRED ENHANCED MP-DD Product Type: *No Product type* Patient Seen: at bedside, nursing cleared patient for therapy Patient Identified By: Name, ID Band and Date Diagnosis: metastasis to brain (03/04/24 1024) Status of treatment: Reassessment completed (03/04/24 1024) Orders: PT evaluation and treatment;OOB (03/04/24 1024) Weight Bearing Status: Weight bearing as tolerated (03/04/24 1024) Precautions: Alarms;Falls;Safety (03/04/24 1024) Total Treatment Time--free text: 23 (03/04/24 1024) Past Medical History: 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7 Epilepsy HTN, goal below 130/80 10/09/2018 Hypercholesteremia Hypothyroidism due to medication 2023-07-31 Adding E03.2-Hypothyroidism due to medication Dx to History OTHER 2004 athritis OTHER 2005 Kidney stones Skin cancer 2017 Past Surgical History: Past Surgical History: Procedure Laterality Date ANESTHESIA FOR OPEN HEAD SURGERY 1995 for seizure control - successful BX LYMPH NODE-SUPERFIC Left 12/26/2017 BIOPSY LYMPH NODE OPEN SUPERFICIAL performed by Saw Arevalo MD at OR [facility] CHEMOTHERAPY for skin cancer from 2017 COLONOSCOPY, DIAGNOSTIC (RECTUM) 08/10/2010 diverticula COLONOSCOPY, DIAGNOSTIC (RECTUM) 06/05/2021 internal hemorrhoids/recall 5 years/COLONOSCOPY FLEXIBLE PROXIMAL DIAGNOSTIC performed by Sharon Vázquez MD at ENDOSCOPY [facility] CYSTOSCOPY 10/2005 Dr. Bone INFORMATION Left 11/14/2017 Skin lesion excised from left lower leg, in-office performed by Dr. Kelton Gillis 11/14/2017 LAPAROSCOPY, CHOLECYSTECTOMY WITH CHOLANGIOGRAPHY 01/25/2004 Laparoscopic cholecystectomy with cholangiogram at [facility] [place]. Julian MICROSURGERY ADD-ON Left 03/03/2024 MICROSURGICAL SURGERY REQUIRING MICROSCOPE LISTED SEPARATELY performed by Joni Hand III, MD at OR [facility] NERVOUS SYSTEM SURGERY NEC N/A 09/08/2023 UNLISTED PROCEDURE NERVOUS SYSTEM performed by Bereket aLwler MD at OR [facility] REMOVAL OF TONSILS, AGE 12+ 2003 REMOVE SUPRATENTORIAL BRAIN TUMOR Right 08/20/2021 CRANIOTOMY BONE FLAP EXCISION BRAIN TUMOR SUPRATENTORIAL performed by Joni Hand III, MD at OR [facility] REMOVE SUPRATENTORIAL BRAIN TUMOR Left 03/03/2024 CRANIOTOMY BONE FLAP EXCISION BRAIN TUMOR SUPRATENTORIAL [facility] RMV MALG LSN TRK/ARM/LG 1.1-2C Left 12/26/2017 EXCISION MALIGNANT TRUNK ARM LEG 1.1 TO 2CM performed by Saw Arevalo MD at OR [facility] STEREOTACTIC CRANIAL INTRADURAL NAVIGATION Left 03/03/2024 STEREOTACTIC CRANIAL INTRADURAL NAVIGATION performed by Joni Hand III, MD at OR [facility] TOTAL ABD HYSTERECTOMY W/WO REMOVAL OF TUBE(S) 2000 partial CCH Subjective: Pt awake in bed, agreeable to PT. Observations Consciousness: Alert;Confused (03/04/24 1024) Orientation: Person;Place (not time) (03/04/241023) Psychosocial: Patient can communicate basic needs;Patient can converse in a social setting (03/04/24 1024) Other Findings: Yes (03/04/241023) Light Touch Sensation Results: Intact;LLE;RLE (03/04/24 1024) Sitting Posture: Forward head;Rounded shoulders (03/04/241023) Standing Posture: Forward head;Rounded shoulders (03/04/24 1024) Pain: No complaints of pain Range of Motion Range of Motion: WFL (03/04/24 1024) Strength Assessment Strength Assessment: Deficits noted (03/04/241023) WNL, except: LLE;RLE (03/04/24 1024) LLE: Hip;Ankle;4/5;Knee;4+/5 (03/04/24 1024) RLE: Hip;4-/5;Knee;Ankle;4+/5 (03/04/24 1024) P.T. Bed Mobility Supine-Sit: Supervision (03/04/241023) Sit-Supine: Supervision (03/04/241023) Transfers Sit-Stand: Contact Guard (03/04/241023) Stand-Sit: Contact Guard (03/04/24 1024) Ambulation: Distance ambulated (feet): 350 ft + 15 ft + 50 ft Assistive Device: Rolling walker Assist: Contact Guard Stair Training: Number of stairs: 2 x2 Number of handrails: 2 Level of Assistance: Contact Guard Balance Sit (Static): Fair (03/04/241023) Sit (Dynamic): Fair (03/04/241023) Stand (Static): Fair (-) (03/04/241023) Stand (Dynamic): Fair (-) (03/04/241023) Patient and or Family Goal(s): to get well and to return home Patient Education Review of Precautions: Safety;Fall (role of PT) (03/04/241023) Safety Awareness: Patient verbalizes insight of current deficits;Patient can communicate basic needs (03/04/241023) Preferred learning method: Combination (03/04/241023) Barriers to learning: Medical Status;Cognition (03/04/241023) Method of Education: Verbalized to patient;Patient demonstrated task (03/04/241023) Topic of Education: Safety with mobility, Goals/plan of care, Use of assistive device, and Fall prevention Method of Education: Verbal discussion and explanation provided to pt: verbalized understanding andor agreement of this information and demonstrated the exercise and or task Treatment Provided: Gait Training 10 minutes: gait training with rolling walker stair training Re-evaluation: 13 minutes Alarm Status Patient positioned in: Bed (03/04/241023) With: Bed alarm intact and functioning and call kohler in reach (03/04/241023) Treatment Status: Treatment at bedside (03/04/241023) Goals: Demonstrate Bed Mobility with: modified independent Demonstrate Sit to/from Stand Transfers with: modified independent Demonstrate Ambulation: least restrictive assistive device, 400 feet, modified independent Demonstrate Stairclimbing: Number of steps: 2 and modified independent Increase Strength of: B/L LE by 1/2-1 muscle grade Increase Balance: dynamic standing balance to fair+ Increase Safety: with all functional mobility Time Frame: 9-10 visits Assessment: Pt is 63 year old female presenting with metastasis to brain. Pt seen on this date forSTAT re-evaluation s/p OR. During session, pt was cooperative, slightly confused at times. Upon re-evaluation, pt was able to perform bed mobility with supervision, sit to stand transfers with contact guard, and ambulated 350 ft + 15 ft + 50 ft with rolling walker and contact guard. Pt was slightlyunsteady with ambulation. Pt also ascended and descended 2 steps x2 with contact guard and 2 handrails. Following session, pt positioned in bed with alarm and call kohler in reach. Pt presents with deficits in strength, endurance, mobility, ambulation, and balance, all of which are currently negatively impacting pt's quality of life. Pt would continue to benefit from skilled PT services while inpatient at hospital to reach established goals and address deficits. Please consider home with post-acute care services which may include home health or outpatient therapy. The level of care will be determined in collaboration with the patient, family/caregiver and care team members. All needs met. Deficits requiring P.T. treatment needs: Safety;Mobility;Balance;Weakness;Endurance;Lower extremitystrength (03/04/24 1024) Equipment Needs: Equipment needs: Rolling walker (TBD) (03/04/24 1024) Treatment Plan: Bed mobility training, Transfer training, Gait training, Elevation training, Strengthening exercises: B/L LE, Balance activities, and Educate on safety with functional mobility Anticipated Frequency (on eval): (1-5x/week) (03/04/24 1024) AM PAC Score with Stairs: 18 * Lety Bird, DPT - 03/02/2024 11:39 AM EDTAssociated Order(s): ADULT PHYSICAL THERAPY CONSULT IP GENERAL EVALUATION - Physical Therapy [address] [address] Name: Judy Garcia Location: [facility] A470/A Date: 03/02/2024 Time: 1138 Judy Garcia is a/an 63 year old female. Patient Status: Inpatient Insurance: Payor: P ARPITA Plan: P [employer] PREFERRED ENHANCED MP-DD Product Type: *No Product type* Patient Seen: at bedside, nursing cleared patient for therapy Patient Identified By: Name, ID Band and Date Diagnosis: Mets to brain (03/02/24 113) Status of treatment: Evaluation completed (03/02/24 113) Orders: PT evaluation and treatment;OOB (03/02/24 113) Weight Bearing Status: Weight bearing as tolerated (03/02/241138) Precautions: Alarms;Falls;Safety (03/02/241138) Total Treatment Time--free text: 19 (03/02/241138) Past Medical History: 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7 Epilepsy HTN, goal below 130/80 10/09/2018 Hypercholesteremia Hypothyroidism due to medication 2023-07-31 Adding E03.2-Hypothyroidism due to medication Dx to History OTHER 2004 athritis OTHER 2005 Kidney stones Skin cancer 2017 Past Surgical History: Past Surgical History: Procedure Laterality Date ANESTHESIA FOR OPEN HEAD SURGERY 1995 for seizure control - successful BX LYMPH NODE-SUPERFIC Left 12/26/2017 BIOPSY LYMPH NODE OPEN SUPERFICIAL performed by Saw Arevalo MD at OR [facility] CHEMOTHERAPY for skin cancer from 2017 COLONOSCOPY, DIAGNOSTIC (RECTUM) 08/10/2010 diverticula COLONOSCOPY, DIAGNOSTIC (RECTUM) 06/05/2021 internal hemorrhoids/recall 5 years/COLONOSCOPY FLEXIBLE PROXIMAL DIAGNOSTIC performed by Sharon Vázquez MD at ENDOSCOPY [facility] CYSTOSCOPY 10/2005 Dr. Bone INFORMATION Left 11/14/2017 Skin lesion excised from left lower leg, in-office performed by Dr. Kelton Gillis 11/14/2017 LAPAROSCOPY, CHOLECYSTECTOMY WITH CHOLANGIOGRAPHY 01/25/2004 Laparoscopic cholecystectomy with cholangiogram at [facility] with [place]. Julian NERVOUS SYSTEM SURGERY NEC N/A 09/08/2023 UNLISTED PROCEDURE NERVOUS SYSTEM performed by Bereket Lawler MD at OR [facility] REMOVAL OF TONSILS, AGE 12+ 2003 REMOVE SUPRATENTORIAL BRAIN TUMOR Right 08/20/2021 CRANIOTOMY BONE FLAP EXCISION BRAIN TUMOR SUPRATENTORIAL performed by Joni Hand III, MD at [facility] RMV MALG LSN TRK/ARM/LG 1.1-2C Left 12/26/2017 EXCISION MALIGNANT TRUNK ARM LEG 1.1 TO 2CM performed by Saw Arevalo MD at OR [facility] TOTAL ABD HYSTERECTOMY W/WO REMOVAL OF TUBE(S) 1999 partial CCH Subjective: Pt is agreeable to therapy. Pt with confusion throughout, word finding difficulty. Social History/Disposition Lives with: Spouse (03/02/241138) Assistance available: Yes (03/02/241138) Dwelling type: Single story home (03/02/241138) Entry steps: 2 (Pt reports her made the 1 step to enter into 2 smaller steps.) (03/02/241138) Inside steps: None (03/02/241138) Bedroom location: 1st floor (03/02/241138) Bath location: 1st floor full bath (03/02/241138) Prior Level of Function Reported by: Patient (03/02/241138) Ambulation: Ambulatory without device;Ambulatory with device (03/02/241138) Ambulatory Device: Rolling walker (reports use of walker for community distances and at night) (03/02/241138) Devices at home: Rolling walker;Straight cane (03/02/241138) Observations Consciousness: Alert;Confused (03/02/241138) Orientation: Person;Place;Time (not oriented to situation, confused) (03/02/241138) Psychosocial: Patient can communicate basic needs;Patient can converse in a social setting (03/02/241138) Other Findings: Yes (03/02/241138) Findings: Light touch sensation (03/02/241138) Light Touch Sensation Results: RLE;LLE;Intact (notes tingling but intact to light touch) (03/02/241138) Sitting Posture: Rounded shoulders (03/02/241138) Standing Posture: Rounded shoulders (03/02/241138) Pain: Patient has complaints of pain. Pain located R side, did not rate pain. Range of Motion Range of Motion: WFL (03/02/241138) Strength Assessment Strength Assessment: Deficits noted (03/02/241138) WNL, except: (B hips 4/5, B knees 4/5 and ankle 4+/5) (03/02/241138) P.T. Bed Mobility Supine-Sit: Supervision (03/02/241138) Transfers Sit-Stand: Contact Guard (cues for hand placement) (03/02/241138) Stand-Sit: Contact Guard (03/02/241138) Ambulation Assist: Minimal Assistance (03/02/241138) Distance Ambulated (feet): 100 (03/02/241138) Assistive Device: Rolling walker (03/02/241138) Number of Stairs: 1 (03/02/241138) Level of Assistance: Minimal Assistance;Bilateral Railing (03/02/241138) Noted gait deviations: small step lengths, increased time to complete, pt fatiguing at end and increased instability in B knees but no overt loss of balance or buckling (03/02/241138) Ambulatory safety: Patient verbalizes insight of current deficits;Patient demonstrates carryover ofinsight during functional tasks (03/02/241138) Balance Sit (Static): Fair (03/02/241138) Sit (Dynamic): Fair (03/02/241138) Stand (Static): (fair-) (03/02/241138) Stand (Dynamic): (poor+) (03/02/241138) Patient and or Family Goal(s): to get well and to return home Patient Education Review of Precautions: Safety;Fall (03/02/241138) Safety Awareness: Patient verbalizes insight of current deficits;Patient demonstrates carryover of insight during functional tasks;Patient can communicate basic needs (03/02/241138) Preferred learning method: Combination (03/02/241138) Barriers to learning: Cognition (03/02/241138) Method of Education: Verbalized to patient (03/02/241138) Topic of Education: Safety with mobility, Goals/plan of care, Stair training, Fall prevention, and Role of PT Educated on use of call kohler Method of Education: Verbal discussion and explanation provided to patient: had reduced level of understanding due to cognition Treatment Provided: Evaluation Moderate Complexity 19 minutes - 11531: Patient was cooperative and pleasant during treatment session. Moderate complexity evaluation performed and 1-2 personal factorsor comorbidities were identified that will impact plan of care, including cognitive status. Patientpresents with limitations in strength, bed mobility, transfers, gait, elevations, balance, endurance, and safety, which will impact plan of care. These limitations will be addressed by the goals set for this patient. Alarm Status Patient positioned in: Chair (03/02/241138) With: Pressure pad alarm intact and functioning and call kohler in reach (03/02/241138) Following session patient seated OOB in chair with chair alarm activated and cord plugged into callbell system. Treatment Status: Treatment at bedside (03/02/241138) Goals: Demonstrate Bed Mobility with: sit to/from supine and rolling modified independent Demonstrate Transfers with: Sit to/from stand and Bed to/from chair modified independent Demonstrate Ambulation: assistive device: no device vs. least restrictive device; distance in feet:200-250 feet, modified independent Demonstrate Stairclimbing: Number of steps: 2, 1 rail, and Level of Assistance: supervision Increase Strength of: lower extremities by 1/2 grade Increase Balance: to fair+ in standing Time Frame: 10 visits Assessment: Patient is a 63 y/o female with dx of metastasis to brain. Prior to admission, patient lives with her and was independent with mobility with and without use of walker. Patient currently requires contact guard for transfers and minimal assist for ambulation with walker and to complete stairs.. Mobility this date limited by fatigue. Ended session with patient resting comfortablyin recliner with needs within reach. PT oriented pt to call kohler/remote use and pt able to recall how to call for assistance if needed. Pt with some confusion throughout and difficulty with word finding. Patient's overall mobility is limited by decreased LE strength, decreased balance, decreased cognition, and overall medical status. Patient would benefit from continued PT to maximize functional independence. Please consider post-acute care services which may include home health, nursing home, outpatient therapy or inpatient rehabilitation. The level of care will be determined in collaborat ion with patient, family/caregiver and care team members. Treatment Plan: bed mobility training, Transfer training, Gait training, Elevation training, Strengthening exercises: lower extremities, Balance activities, and Educate on safety with fall prevention Anticipated Frequency (on eval): (1-5x/week) (03/02/241138) Deficits requiring P.T. treatment needs: Safety;Weakness;Mobility;Balance;Endurance;Lower extremitystrength (03/02/241138) AM-PAC Score With Stairs : 17 (03/02/241138) A portion of this AM-PAC assessment not scored based on functional assessment due to fatigue; rather clinical decision making utilized based on current findings and/or prior level of function. Pleaserefer to future AM-PAC calculations of functional ability as they become available. Lety Richard, PT, DPT, NCS Physical Therapy [facility] * Sharon Ribera OTR/L - 03/02/2024 11:25 AM EDTAssociated Order(s): ADULT OCCUPATIONAL THERAPY CONSULT IP GENERAL EVALUATION - Occupational Therapy [address] [address] Name: Judy Garcia [place] [facility] A470/A Date: 03/02/2024 Time: 11:25 AM Judy Garcia is a 63 year old female. Patient Status: Inpatient Insurance: Payor: [facility] Outernet Plan: [employer] GOLD PREFERRED ENHANCED MP-DD Product Type: *No Product type* Patient Seen: at bedside, nursing cleared patient for therapy Patient Identified By: Name, ID Band and Date Diagnosis: Metastasis to brain (03/02/241124) Status of treatment: Evaluation completed (03/02/241124) Orders: OT evaluation and treatment (03/02/241124) Weight Bearing Status: Weight bearing as tolerated (03/02/241124) Precautions: Alarms;Falls;Safety (CVM) (03/02/241124) Total Treatment Time: 14 (03/02/241124) Past Medical History: 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7 Epilepsy HTN, goal below 130/80 10/09/2018 Hypercholesteremia Hypothyroidism due to medication 2023-07-31 Adding E03.2-Hypothyroidism due to medication Dx to History OTHER 2004 athritis OTHER 2005 Kidney stones Skin cancer 2017 Past Surgical History: Past Surgical History: Procedure Laterality Date ANESTHESIA FOR OPEN HEAD SURGERY 1995 for seizure control - successful BX LYMPH NODE-SUPERFIC Left 12/26/2017 BIOPSY LYMPH NODE OPEN SUPERFICIAL performed by Saw Arevalo MD at OR [facility] CHEMOTHERAPY for skin cancer from 2017 COLONOSCOPY, DIAGNOSTIC (RECTUM) 08/10/2010 diverticula COLONOSCOPY, DIAGNOSTIC (RECTUM) 06/05/2021 internal hemorrhoids/recall 5 years/COLONOSCOPY FLEXIBLE PROXIMAL DIAGNOSTIC performed by Sharon Vázquez MD at ENDOSCOPY [facility] CYSTOSCOPY 10/2005 Dr. Bone INFORMATION Left 11/14/2017 Skin lesion excised from left lower leg, in-office performed by Dr. Kelton Gillis 11/14/2017 LAPAROSCOPY, CHOLECYSTECTOMY WITH CHOLANGIOGRAPHY 01/25/2004 Laparoscopic cholecystectomy with cholangiogram at [facility]. Julian NERVOUS SYSTEM SURGERY NEC N/A 09/08/2023 UNLISTED PROCEDURE NERVOUS SYSTEM performed by Bereket Lawler MD at OR [facility] REMOVAL OF TONSILS, AGE 12+ 2003 REMOVE SUPRATENTORIAL BRAIN TUMOR Right 08/20/2021 CRANIOTOMY BONE FLAP EXCISION BRAIN TUMOR SUPRATENTORIAL performed by Joni Hand III, MD at OR [facility] RMV MALG LSN TRK/ARM/LG 1.1-2C Left 12/26/2017 EXCISION MALIGNANT TRUNK ARM LEG 1.1 TO 2CM performed by Saw Arevalo MD at [facility] TOTAL ABD HYSTERECTOMY W/WO REMOVAL OF TUBE(S) 1999 partial [facility] Social History/Disposition Lives with: Spouse (03/02/241124) Assistance available: Yes (03/02/241124) Dwelling type: Single story home (03/02/241124) Entry steps: 2 (03/02/241124) Inside steps: None (03/02/241124) Bedroom location: 1st floor (03/02/241124) Bath location: 1st floor full bath (03/02/241124) Prior Level of Function Reported by: Patient (03/02/241124) Ambulation: Ambulatory with device (03/02/241124) Ambulatory Device: Rolling walker (at nighttime and in the community) (03/02/241124) Grooming: Independent (03/02/241124) Bathing: Independent (03/02/241124) Dressing: Independent (03/02/241124) Feeding: Independent (03/02/241124) Toileting: Independent (03/02/241124) Meal Prep: Independent (03/02/241124) Homemaking: Independent (03/02/241124) Durable Medical Equipment at home: Rolling walker;Straight cane (03/02/241124) Subjective: Pt pleasant and cooperative, agreeable to OT evaluation. Pain: Patient has complaints of pain. Pain located R side. Patient did not rate. Observations Consciousness: Alert (03/02/241124) Orientation: Person;Place;Time (03/02/241124) Cognitive Limitations: Processing;Problem solving (03/02/241124) Psychosocial: Patient can communicate basic needs;Patient can converse in a social setting (03/02/241124) Sitting posture: Forward head;Rounded shoulders (03/02/241124) Standing posture: Forward head;Rounded shoulders (03/02/241124) Safety awareness: Needs cueing supervision. (03/02/241124) Other Findings Endurance: Fair (03/02/241124) Light touch sensation: LUE;RUE;Impaired (03/02/241124) Coordination: LUE;RUE;Intact (03/02/241124) Current Functional Status: Bilateral Upper Extremity Range of Motion: WFL (03/02/241124) Strength Assessment: (B 4-/5) (03/02/241124) Dressing Upper Body: Supervision (Please comment) (to manage gown) (03/02/241124) Lower Body: Supervision (Please comment) (to doff/yuni socks) (03/02/241124) Functional Ambulation Assistive Device: Rolling walker (03/02/241124) Distance in feet:: 100 (03/02/241124) Level of Assistance: Minimal Assistance (03/02/241124) Bed Mobility Supine-Sit: Supervision (Please comment) (03/02/241124) OT Transfers Sit-Stand: Contact Guard (03/02/241124) Stand-Sit: Contact Guard (03/02/241124) Balance Sit (Static): Fair (03/02/241124) Sit (Dynamic): Fair (03/02/241124) Stand (Static): Fair (-) (03/02/241124) Stand (Dynamic): Poor (+) (03/02/241124) Alarm Status Patient positioned in: Chair (03/02/241124) With: Pressure pad alarm intact and functioning and call kohler in reach (03/02/241124) Following session patient seated OOB in chair with chair alarm activated and cord plugged into callbell system. Patient and Family Goals: to get well Patient Education Education Topic: Role of OT;Plan of care goals (03/02/241124) Review of Precautions: Safety;Fall (03/02/241124) Method of Education: Verbalized to patient (03/02/241124) Education Provided to: Patient (03/02/241124) Response to Education: Receptive and agreeable to education (03/02/241124) Barriers to learning: Medical status (03/02/241124) Preferred learning method: Combination (03/02/241124) Treatment Provided: Evaluation Moderate Complexity 14 minutes - [id number]: Patient was cooperative during treatment session. Moderate complexity evaluation performed and 3-5 activity limitations were identified, including ADL deficit, functional mobility deficit, bed mobility deficit, decreased strength, decreased endurance, and impaired balance. Minimal or moderate modification of the functional task was necessary to complete the evaluation. Assessment: Pt is a 63 yr old female, admitted to the hospital on 03/01 for metastasis to brain. Ptlives with spouse, and completed ADL tasks/IADL tasks and functional mobility with independence using a rolling walker at nighttime/in the community. Pt seen for OT evaluation on this date. Pt completed bed mobility of supine to sit with supervision. Pt completed UB and LB dressing tasks with supervision and cues for initiation. Pt then completed sit to stand transfer from bed with contact guard,and functional mobility in hallway of 100 feet using rolling walker with min A for safety and steadying. Pt required cues for sequencing and safe techniques due to decreased processing. Pt seated in chair with needs met. Pt presents with deficits in strength, balance, endurance, functional transfers, functional mobility, and ADL task completion. Pt would benefit from continued OT to work on strength and endurance in order to maximize independence with self care ADL tasks. Please consider post-acute care services which may include home health, nursing home, outpatient therapy or inpatient rehabilitation. The level of care will be determined in collaboration with patient, family/caregiver and care team members. Deficits Requiring O.T. Treatment: Deficits requiring O.T. treatment needs: ADL/self-care;Balance;Endurance;Functional mobility;Safety;Upper extremity strength;Weakness (03/02/241124) Goals: ADLs Demonstrate grooming tasks with independence Demonstrate UB dressing task with independence Demonstrate LB dressing task with independence Demonstrate UB bathing task with independence Demonstrate LB bathing task with independence Demonstrate toilet task with supervision Bed Mobility Demonstrate rolling L and R with modified independence Demonstrate supine to sit with modified independence Demonstrate sit to supine with modified independence Functional Transfers Demonstrate sit to stand transfer with modified independence Demonstrate bed to chair transfer with modified independence Demonstrate transfers onto/off of commode with modified independence Functional Mobility Demonstrate functional mobility for ADL task completion with supervision using least restrictive device Balance Improve static/dynamic seated balance for ADL task completion to a grading of good Improve static/dynamic standing balance for ADL task completion to a grading of fair + / fair Strength Improve bilateral UE strength by 1/2 grade Goal Time Frame: 10 visits Treatment Plan: Safety, Bed mobility training, Functional Ambulation, Transfer training, Upper extremity strengthening, Balance activities, ADL training, and Endurance Anticipated Frequency (on eval): (1 to 5 times per week) (03/02/241124) AM-PAC Help From Another Person Eating Meals: A little (03/02/241124) Help From Another Person Taking Care of Personal Grooming: A little (03/02/241124) Help From Another Person To Put On/Take Off Upper Body Clothing: A little (03/02/241124) Help From Another Person To Put On/Take Off Lower Body Clothing: A little (03/02/241124) Help From Another Person Toileting: A little (03/02/241124) Help From Another Person Bathing: A little (03/02/241124) OT AM-PAC Score: 18 (03/02/241124) OT AM-PAC t-Scale Score: 38.66 (03/02/241124) HLM (Highest Level of Mobility) Goal: Level 5 standing (1 or more minutes) (03/02/24 1139) A portion of this AM-PAC assessment not scored based on functional assessment; rather clinical decision making utilized based on current findings and/or prior level of function. Please refer to future AM-PAC calculations of functional ability as they become available. * Josiah Del Rio MD - 03/01/2024 1:41 PM EDTAssociated Order(s): General Internal Medicine Images from the original note were not included. 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 Patient and family report some recent memory and balance concerns however this has improved since being started on Decadron. Patient denies any known prior history of coronary artery disease or knownprior heart attack or PCI. Endorses some dyspnea on exertion if she walks a long distance, endorsessome possible vague chest discomfort with exertion as well though states she has never commented regarding this before. says up until very recently she has been functionally independent. Can walk a fairly long distance in [employer] without stopping. Denies other CHF symptoms. Patientstates that she quit smoking 5 years ago however her family says she is still smoking 2 packs per day. Very rare alcohol use. Denies any other drug use. Denies any history of diabetes or kidney problems. Endorses recent dysuria. Feels like prior UTI. Taking keflex that was prescribed yesterday. Patient was seen by cardiology on 02/27/2024 for elevated troponins with assessment copied below: "-Non-STEMI, age-indeterminate septal infarct pattern on EKG which correlates well with the wall motion abnormality on echocardiogram. Relatively mild troponin elevation compared to the size of the septal wall motion abnormality. Difficult to determine if the patient had a septal infarct sometime between 2021 and now, or if this is an acute event. Differential diagnosis includes atypical presentation for a stress-induced cardiomyopathy. Patient's resting heart rates are already in the 60s to 70s, and therefore wouldavoid beta-corey therapy. Continue losartan. Continue atorvastatin. Would avoid aspirin or anticoagulation due to brain lesion and risk of intracranial hemorrhage. Await radiation oncology input. May require input from neurosurgery. From a cardiac perspective, conservative treatment recommended. Not a candidatefor cardiac catheterization/coronary stents with antiplatelet therapy." Subjective Patient's past history, medications, and allergies were reviewed. Objective Physical Exam Most Recent Vital Signs: BP: 96 mmHg/82 mmHg (03/01/24 1308) Pulse: 80 (03/01/24 1308) Resp: 16 (03/01/24 1308) Temp: 36.22 C (03/01/24 1308) Temp Summary: Temp Min: 36.1 C (96.9 F) Max: 36.2 C (97.2 F) SpO2: 98 % (03/01/24 1308) O2 flow rate: Supplemental O2 Delivery: Room Air, None (03/01/24 1308) BP: 112 mmHg/61 mmHg (03/01/24 1445) Pulse: 72 (03/01/24 1445) Resp: 18 (03/01/24 1445) Temp: 36.78 C (03/01/24 1445) Temp Summary: Temp Min: 36.1 C (96.9 F) Max: 36.8 C (98.2 F) SpO2: 100 % (03/01/24 1445) O2 flow rate: Supplemental O2 Delivery: Room Air, None (03/01/24 1445) Most Recent Systolic BP Av.3 mmHg Min: 96 mmHg Max: 112 mmHg Most Recent Temperature Av.4 C Min: 36.06 C Max: 36.78 C Pulse Av Min: 70 Max: 80 Resp Av Min: 16 Max: 18 SpO2 Av.7 % Min: 98 % Max: 100 % General: appears older than age, no acute distress CV: regular rate & rhythm, no murmur Pulm: non-labored, clear to auscultation bilaterally without wheezes/crackles/rhonchi GI: soft, non-tender, non-distended, no rigidity or guarding Ext: feet cool to touch, pedal pulses palpable but not strong - no pitting edema Skin: no significant rash or wound on limited skin exam Neuro: alert, oriented to person/place/time however when asked year said "March" then correctedherself - grossly normal speech & comprehension, though recent memory seems mildly impaired Lines/Drains/Airways: PIV STUDIES: Encounter Orders Labs and other studes reviewed with pertinent findings noted below: CBC unremarkable Assessment and Plan IMPRESSION: Principal Problem: Metastasis to brain (HCC) Resolved Problems: * No resolved hospital problems. * RECOMMENDATIONS: Judy Garcia is a 63 year old female with PMH significant for Melanoma metastatic to the brain (brain mets Dx 2021 S/P right parietal craniotomy, s/p SRS Jul 2022, s/p ALYSHA Aug 2023), combined receptive and expressive aphasia, seizure disorder, hypothyroidism, presumed COPD (not on any inhalers), HTN, HLD, depression, tobacco use recently admitted a few days ago (02/26/24) to [facility] after a fall and altered mental status and found to have an enlarging left frontal lobe lesion with vasogenic edema which was managed with steroids, now admitted to [facility] for craniotomy scheduled 03/03/24. Patient is overall above average risk for surgical complications including cardiac, VTE, infections, and but there is no further medical optimization recommended at this time. Patient was seen by cardiology a few days ago with suspected demand-mediated ischemia but no further workup or medical management was indicated at that time, with high risk of bleeding with antiplatelet or anticoagulation therapy. Patient is without symptoms of angina or acute CHF at this time. She has presumed COPDbut is without signs/symptoms of acute exacerbation currently. Per ACS NSQIP Risk Calculator - Individual Estimates vs Average: CPT Code: 39100 - Craniectomy or craniotomy, exploratory; supratentorial Emergency case: No Risk Factors: Age (63), Female, ASA Severe systemic disease, Disseminated cancer, HTN, Dyspnea withmoderate exertion, Smoker, BMI (25.51) Overall complication risk: 17.6% (vs 13.8% average) Serious complication risk: 15.9% (vs 11.7% average) Cardiac complication risk: 1.2% (vs 0.6% average) VTE risk: 3.3% (vs 2.7% average) : 7.1% (vs 2.1 average) Metastatic melanoma Vasogenic edema Decadron and surgical management per Neurosurgery team Continue mekinist & tafinlar Consider rad onc consult Likely undiagnosed CAD based on recent echo & ECG Asymptomatic at this time No ischemic workup indicated at this time, per recent cardiology evaluation no antiplatelets or anticoagulation recommended given current brain mets Suspected UTI/simple cystitis Recommend continuing cephalexin Pt was discharged on - Friday was day 1 - recommend increasing doseto 500 mg and making it twice daily for 5 days total Could consider repeat UA however Pt has been on antibiotics already for a day so probably not reliable Presumed COPD - asymptomatic, not on inhalers STONE SAWYER - recommend PRN duoneb Hyperlipidemia, hypertension: STONE SAWYER losartan, atorvastatin Depression: STONE SAWYER Paxil Hypothyroidism: STONE SAWYER synthroid 175 Seizure disorder: STONE SAWYER carbamazepine I spent a total of 65 minutes coordinating, documenting, and providing care for this patient excluding time spent in the performance of separately billed services. documented in this encounter Nursing Notes * Ar Carlton NA - 03/03/2024 2:33 PM EDT Post Anesthesia Care Unit Transport Note [facility] [address] [address] Dept. Judy Garcia Transported from [facility] to : [facility] Time: 1332 Care of patient transferred to: Katya FRIED Transported via: Bed Belongings with Patient: no Pulse : 79 Temp : 36.0 BP : 100/54 Respirations : 18 Pulse Ox : 100 O2 : 2liters SCDS: On but not activated/no machine * Jo Ann Britt RN - 03/03/2024 2:21 PM EDT Dual Licensed Skin Assessment completed by Jo Ann Mclean and Blanka Ardon. The patient is/has a N/A Skin Breakdown (includes non blanchable erythema): Yes - Surgical/Procedural changes only. , scattered bruises (flank, r arm), skin tear R elbow, sacrum red and blanchable, red sacral slit * Jessica Arango RN - 03/03/2024 12:41 PM EDT PERIOP TO IP HANDOFF COMMUNICATION NOTE [facility] [id number] Name: Judy Garcia AGE: [age] year old Location: OR [facility]/OR Date: 03/03/2024 Attention to: Jo Ann Britt Report from: Jessica Arango RN Patient arriving via: Bed Time of call: 12:42 PM Phone Ext: [phone] Reason for SBAR (Situation, Background, Assessment, Recommendation) handoff: OR Sending to: Bhavin Jones Emotional/Personal Events & Special Needs: na Prescriptions in chart: No Code Status: Full Code Safety Concerns: no safety concerns identified Allergies: Erythromycin PMH: 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7 Epilepsy HTN, goal below 130/80 10/09/2018 Hypercholesteremia Hypothyroidism due to medication 2023-07-31 Adding E03.2-Hypothyroidism due to medication Dx to History OTHER 2004 athritis OTHER 2005 Kidney stones Skin cancer 2017 PSH: Past Surgical History: Procedure Laterality Date ANESTHESIA FOR OPEN HEAD SURGERY 1995 for seizure control - successful BX LYMPH NODE-SUPERFIC Left 12/26/2017 BIOPSY LYMPH NODE OPEN SUPERFICIAL performed by Saw Arevalo MD at OR [facility] CHEMOTHERAPY for skin cancer from 2017 COLONOSCOPY, DIAGNOSTIC (RECTUM) 08/10/2010 diverticula COLONOSCOPY, DIAGNOSTIC (RECTUM) 06/05/2021 internal hemorrhoids/recall 5 years/COLONOSCOPY FLEXIBLE PROXIMAL DIAGNOSTIC performed by Sharon Vázquez MD at ENDOSCOPY [facility] CYSTOSCOPY 10/2005 Dr. Smitha FOY Left 11/14/2017 Skin lesion excised from left lower leg, in-office performed by Dr. Kelton Gillis 11/14/2017 LAPAROSCOPY, CHOLECYSTECTOMY WITH CHOLANGIOGRAPHY 01/25/2004 Laparoscopic cholecystectomy with cholangiogram at [facility] with [place]. Julian NERVOUS SYSTEM SURGERY NEC N/A 09/08/2023 UNLISTED PROCEDURE NERVOUS SYSTEM performed by Bereket Lawler MD at [facility] REMOVAL OF TONSILS, AGE 12+ 2003 REMOVE SUPRATENTORIAL BRAIN TUMOR Right 08/20/2021 CRANIOTOMY BONE FLAP EXCISION BRAIN TUMOR SUPRATENTORIAL performed by Joni Hand III, MD at OR [facility] MALG LSN TRK/ARM/LG 1.1-2C Left 12/26/2017 EXCISION MALIGNANT TRUNK ARM LEG 1.1 TO 2CM performed by Saw Arevalo MD at OR [facility] TOTAL ABD HYSTERECTOMY W/WO REMOVAL OF TUBE(S) 2000 partial [facility] Isolation: Isolation: Procedure: left frontal craniotomy for tumor resection with vycor tube and dynamic retraction, use of brainlab neuronavigation, use of neurophysiological monitoring (SSEP/MEP/motor language, subcortical stimulation) Type of Anesthesia: General endotracheal anesthesia IV intake: 1500 mL EBL: OR: 25 mL PACU: 0 mL Urine output: OR 500 mL PACU 0 mL IUBC (Estrada): removed Incision location: head Dressing location: head andre dry gauze Time of last skin assessment: 03/03/24 1230 Pressure injuries or areas of concern: na Lines: Supplemental Airway NRB;Oral pharyngeal airway (Active) Number of days: 0 Peripheral Line Right Arm 20 Gauge (Active) Status Fluids infusing 03/03/24 1200 Tubing Changed N/A 03/03/24 1130 Phlebitis Scale 0 03/03/24 1200 Infiltration Scale 0 03/03/24 1200 Site Description (Other) Without redness, swelling or drainage 03/03/24 1200 Site Intervention Flushed 03/03/24 1200 Dressing Assessment Dressing clean, dry, and intact 03/03/24 1200 Dressing Intervention None required 03/03/24 1200 Dressing Change Due 03/10/24 03/03/24 0600 Number of days: 0 Peripheral Line Left Arm 20 Gauge (Active) Status Capped/Locked 03/03/24 1200 Tubing Changed N/A 03/03/24 1130 Phlebitis Scale 0 03/03/24 1200 Infiltration Scale 0 03/03/24 1200 Site Description (Other) Without redness, swelling or drainage 03/03/24 1200 Site Intervention Flushed 03/03/24 1200 Dressing Assessment Dressing clean, dry, and intact 03/03/24 1200 Dressing Intervention None required 03/03/24 1200 Number of days: 0 Vital Signs: BP: 93/63 (03/03/24 1230) Temp: 36.2 C (97.2 F) (03/03/24 1130) Pulse: 75 (03/03/24 1230) Resp: 16 (03/03/24 123) SpO2: 98 % (03/03/24 123) O2 flow rate: 2 L/MIN (03/03/24 123) Time of last pain medication: 1051 Med: Dilaudid Time of last antibiotic: 0845 Med: Ancef 2 g Time of last antiemetic: 1023 Med: zofran [employer]: no Drips: no Neurological: Neuro WNL: X - Exceptions to WNL as documented below (03/02/242314) Speech: Clear (03/03/241214) Level of Consciousness: Alert (03/03/241214) RUE Motor Strength: 5-Active movement with full resistance (03/03/241214) RLE Motor Strength: 5-Active movement with full resistance (03/03/241214) LUE Motor Strength: 5-Active movement with full resistance (03/03/241214) LLE Motor Strength: 5-Active movement with full resistance (03/03/241214) Coma Score: 15 (03/03/241214) Respiratory: Respiratory WNL: WNL- within normal limits (03/03/241214) Cough: None (03/03/241214) Depth/Rhythm: Regular (03/03/241214) Dyspnea Occurance: None (03/03/241214) Effort: Unlabored (03/03/241214) Oxygen therapy/ Mechanical vent Supplemental O2 Delivery: Nasal Cannula (03/03/241229) O2 flow rate: 2 L/MIN (03/03/24 123) Cardiac: Cardiovascular WNL: X - Exceptions to WNL as documented below (03/03/241214) Heart Sounds: S1;S2 (03/02/242314) Rhythm: NSR (03/03/241214) Extremities: +Sensation (03/03/241214) Pulses Right: Dorsalis Pedis + (03/03/241214) Pulses Left: Dorsalis Pedis + (03/03/241214) Edema Location: Lower extremities;Both (03/03/241214) Edema Assessment: +2 - Description (03/03/241214) Capillary Refill: 3 sec (03/03/241214) GI: GI WNL: WNL - within normal limits (03/03/241214) : WNL: WNL - within normal limits (no urine to assess at this time) (03/03/24 121) Urine Description: Other-Describe (no urine to assess at this time) (03/03/24 0700) Due to Void: 03/03/24 1830 Integumentary:Integumentary WNL: WNL - within normal limits (03/03/241214) Skin Description: Dry;Warm (03/03/241214) Skin Color: Flesh Tone (03/03/241214) Skin Lesion: Other - Describe (see below) (03/03/241214) Baron Score (auto-calculation): 19 (03/02/24 2315) Family updated on transfer: yes Additional Assessment Information: na * Jessica Arango RN - 03/03/2024 12:27 PM EDT Dual Licensed Skin Assessment completed by Jessica Arango RN and Katya Simon. The patient is/has a N/A Skin Breakdown (includes non blanchable erythema): No surgical changes only * Laura Saavedra RN - 03/03/2024 8:09 AM EDT Patient disoriented to situation in pre op, stating that she does not know what she is having done today. Dr. Hand has seen patient in pre op. Patient signed her own consent (scanned in chart). Dr.Ali Perdomo of neurosurgery made aware of situation and came to bedside. Dr. Perdomo confirmed that at time of signing consent, patient was oriented to be able to sign her own consent, confirmed oka y to proceed to OR with current surgical consent. * Laura Saavedra RN - 03/03/2024 7:08 AM EDT Dual Licensed Skin Assessment completed by Simi Saavedra RN and Dipak Rios RN. The patient is/has a N/A Skin Breakdown (includes non blanchable erythema): No * Elizabeth Zurita RN - 03/03/2024 2:50 AM EDT Hand-Off - Nurse Communication Note Name: Judy Garcia [place] [facility] [place] A[place] Date: 03/03/2024 Time: 2:51 AM Sending to: Pre-op Safety Concerns: Confused/Disoriented, fall risk Allergies: Erythromycin Code Status: Full Code Isolation: None Isolation flowsheet: Special Needs: Oriented x2 Special Needs comments: Attention to: Pre-op Report from: Elizabeth Zurita RN Patient arriving via: Bed Reason for SBAR handoff: OR Situation/Background Admission date: 03/01/2024 Patient Service: Neurosurgery [[id number]] Attending Provider: Joni Hand III, MD Admitting diagnosis: Metastasis to brain (HCC) Chief Complaint: No chief complaint on file. Problem list: Principal Problem: Metastasis to brain (HCC) Resolved Problems: * No resolved hospital problems. * Level of Care: Med Surg [3] Assessment Vital Signs: BP: 98/58 (03/02/242215) Temp: 37.2 C (99 F) (03/02/242207) Pulse: 70 (03/02/242207) Resp: 18 (03/02/242207) SpO2: 94 % (03/02/242207) Weight: 61.1 kg (134 lb 11.2 oz) (03/01/24 1308) Height: 157.5 cm (5' 2") (03/01/24 130) Fall Scale: Fall Score: 85 (03/02/24 2315) Fall Interventions: Bed at low level;Bed alarm on;Yellow armband applied/intact and on patient;Fallrisk sign above bed (03/02/242314) Neurological: Neuro WNL: X - Exceptions to WNL as documented below (03/02/242314) [place] Coma Scale Eyes Open: Spontaneous (03/02/242314) Best Verbal Response: Disoriented, inappropriate, cries (03/02/242314) Best Motor Response: Obeys commands appropriate for age (03/02/242314) Coma Score: 14 (03/02/242314) Additional Neurological Information: N/A Respiratory: Respiratory WNL: WNL- within normal limits (03/02/242314) Oxygen therapy/ Mechanical vent Supplemental O2 Delivery: Room Air, None (03/02/242314) Additional Respiratory Information: N/A Cardiac: Cardiovascular WNL: X - Exceptions to WNL as documented below (03/02/242314) Heart Sounds: S1;S2 (03/02/242314) Extremities: +Sensation;Right;Left;Upper;Lower;[place];Warm (03/02/242314) Pulses Right: Dorsalis Pedis +;Radial + (03/02/242314) Pulses Left: Dorsalis Pedis +;Brachial + (03/02/242314) Edema Location: Lower extremities (03/02/242314) Edema Assessment: Trace (03/02/242314) Additional Cardiac Information: no-tele GI/: GI WNL: WNL - within normal limits (03/02/242314) WNL: WNL - within normal limits (03/02/242314) Additional GI/ Information: continent Integumentary: Integumentary WNL: X - Exceptions to WNL as documented below (03/02/242314) Skin Description: Dry;Warm (03/02/242314) Skin Color: [place];Nail beds pink;Flesh Tone (03/02/242314) Skin Lesion: Ecchymosis (scattered) (03/02/242314) Baron Score (auto-calculation): 19 (03/02/242314) Additional Integumentary Information: scattered ecchymosis Restraints: No orders of the defined types were placed in this encounter. Lines: Labs: Labs This Encounter BASIC METABOLIC PANEL - Abnormal; Notable for the following components: Result Value Ref Range Potassium 3.3 3.5 - 5.1 mmol/L Glucose 127 70 - 120 mg/dL All other components within normal limits PT INR - Abnormal; Notable for the following components: Prothrombin Time 11.2 11.6 - 15.2 seconds All other components within normal limits Narrative: Warfarin Therapy INR: 2.0-3.0 conventional anticoagulation INR: 2.5-3.5 high intensity anticoagulation DIFFERENTIAL, AUTOMATED - Abnormal; Notable for the following components: Neutrophils % 75.6 40.0 - 75.0 % Lymphocytes % 16.9 18.0 - 42.0 % All other components within normal limits [facility] PCR - Normal MRSA SCREEN, PCR - Normal CBC WITH WBC DIFFERENTIAL Narrative: The following orders were created for panel order CBC WITH WBC DIFFERENTIAL. Procedure Abnormality Status --------- ------ CBC[[id number]] Final result DIFFERENTIAL, AUTOMATED[[id number]] Abnormal Final result Please view results for these tests on the individual orders. TYPE AND SCREEN CBC Diet: Orders Placed This Encounter Procedures NPO After 2400 Except Meds Additional Diet Information: N/A Intake and Output: No intake or output data in the 24 hours ending 03/03/24 0251 Patient Belongings and Home Medications Patient Belongings at Bedside Belongings at Bedside: Vision;Clothing (03/01/24 1315) Vision - Corrective Lenses: Glasses (03/01/24 1315) Patient Medications Medications Brought by Patient?: No (03/01/241314) * Paul Kumar RN - 03/01/2024 1:36 PM EDT Dual Licensed Skin Assessment completed by Laura Cruz RN and Paul Kumar RN. The patient is/has a N/A Skin Breakdown (includes non blanchable erythema): No documented in this encounter OR Notes * OR Surgeon - Yazan JOHNSON, Joni Andino MD - 03/03/2024 10:49 AM EDT [facility] [address] [id number] OPERATIVE REPORT Name: Judy Garcia Date: 03/03/2024 Time: 1132 AM Location: [place] [facility] [place]: Neurosurgery Date of Operation: 03/03/2024 Pre-op Diagnosis: left deep frontal symptomatic recurrent brain metastasis from melanoma despite previous SRS and ALYSHA Post-op Diagnosis: same Operation: left frontal craniotomy for tumor resection with vycor tube and dynamic retraction, use of brainlab neuronavigation, use of neurophysiological monitoring (SSEP/MEP/motor language, subcortical stimulation) Surgeon: Joni Hand III, MD, PhD Assistants: Frederick Perdomo MD Anesthesia: General endotracheal anesthesia Drains: none Estimated Blood Loss: 25 ml. IV Fluids: 1500 ml. Urine Output: 500 ml. Specimens/Disposition: left frontal brain lesion for intra-op and permanent Apparent Intraoperative Complications: NONE Patient Condition: stable Disposition: Post Anesthesia Care Unit Attestation: Joni Cook III, M.D., Ph.D., performed the critical portions of this operation and was immediately available for all others. Operative Indication: Judy Garcia is a 63 year old, right handed female who presents in tumor MDC for evaluation of a recurrent L frontal lesion s/p SRS and ALYSHA. She is on steroids. She has worsening altered mental status, falls, speech disturbance, R sided weakness. Went to OSH and was seen there and admitted. Steroids improved symptoms. I had an extensive conversation with Ida and her family. She is hard to care for, despite improvement with steroids. She fell today. She has a L frontal lesion that has recurred. I discussed the onlyreal treatment option of surgery at this point. WE reviewed the technical details and covered the risks, including but not limited to: bleeding infection, wound complication, neurological deficit, ICH, seizure, stroke, , leptomeningeal disease, lack of diagnosis, need for more treatment or surgery, even . She and her family endorsed understanding. I answered their questions to their satisfaction. NO guarantees were stated or implied. I collected the consent and will get her admitted for IV steroids, med clearance, surgical planning, and surgery JOSE. Operation: The patient was brought to the OR and identified. She was positioned supine on the OR table with all pressure points padded carefully. She was placed under general anesthesia and intubated. All necessary lines, IV, estrada, and an a-line were placed. The head of the bed was turned 180 degrees away from anesthesia. The head was placed carefully in the mccormack head clamp, avoiding the previous craniotomy sites. The head was fixated turned slightly to the right via the adaptor. Brainlab neuronavigation was set up and registered. I confirmed the accuracy of this registration personally. We used this to plan a left frontal incision to make a left frontal craniotomy near the site of the previous biopsy tract. An incision was marked with a pen. Her hair was clipped with clippers. Her scalp was cleansed with chlorhexidine brushes. Neurophysiological monitoring was set up and run. This was followable in terms of SSEP/MEP Her incisional area is prepped and draped in the usual sterile fashion. Her films were up for review. She was administered preop antibiotics in accordance with SCIP protocol within one hour of skin incision, to be discontinued within 24h of first administration. She was also give keppra. A surgical pause was performed. Local anesthesia was administered. The incision was opened using a 10 blade and carried down to thebone using monopolar cautery. A self retaining retractor was placed. Brainlab was utilized to confirm localization and plan the craniotomy. Nilda holes were made with the high speed drill. The dura was dissected away from the overlying bone. A craniotome was used to make the left frontal craniotomy. The bone was dissected away from the dura, removed, and placed in antibiotic solution. The dura wasopened using a scissors, in a cruciate fashion, and the leaflets were secured back with neurolons. We identified the previous biopsy tract. We planned to go down the previous tract to get to the lesion. To attempt to map speech we used direct cortical stimulation and an EMG nims tube. I did direct cortical stimulation in my field and we did not identify hand or the anatomic location for Broca's. We stimulated from 5 mAmps to 25 mAmps unsuccessfully. Using the bipolar and suctions we opened the previous cortical opennig a bit further and then intermittently using the [employer] pointer and direct visualization we worked our way down the tract until we got to what appeared to be the lesion. At his point, I opted to use a Vycor tubular retractor to work deep in the brain and resect the lesion.A [id number] cm tube was selected. Using [employer] and our path I pushed to tube down to the target. We took several specimens with a micropituitary and these were sent to pathology. I then used a combination suctions and the bipolar to remove the visible lesion. There were grossly areas of gliotic tissue but also a pigmented lesion. I had placed a subcortical stim electrode on my suction and placed this at 10 mAmps. The pathologist called into the room and indicated the lesions was consistent with active melanoma. The final diagnosis will be deferred. Once I felt the lesion was completely resected, we worked to obtain meticulous hemostasis with the bipolar and warm irrigation. I inspected the resection bed for any residual. None was seen. A piece of gel foam was applied under the dura as a dural underlay. The dura was flapped over this. The bone was plated with Synthes plates and screwsand the resecured to the skull. The would was irrigated with antibiotic containing irrigation. Hydroset cement was then used to complete the cranioplasty and make is cosmetic. We then closed the wound in layers with 2-0 interrupted vicryl sutures and then andre. A final closing time out was performed. A sterile dressing was applied. There were no pathological changes in neurophysiological monitoring. The drapes were taken down. The Mccormack was detached from the patient's head without incident. The head of the bed was turned toward anesthesia. The patient was emerged from general anesthesiato be extubated. She was transferred supine to her hospital bed. She was then transferred to the PACU in stable and satisfactory condition. All needle, sponge, instrument, and cottonoid counts were correct at the end of the operation. documented in this encounter Miscellaneous Notes * Care Plan - Jo Ann Britt RN - 03/04/2024 2:56 PM EDT Clinical Goal(s): Pt will be free from falls this shift (03/04/24 0700) Possible barriers to meeting goal(s)/advancing plan of care: disorientation Stability of the patient: Moderately stable - low risk of patient condition declining or worsening Summary regarding today's goal(s): Met: pt did not fall Recommendations: pt d/c * Progress Notes - Post-Op Global - Ari Lucio MD - 03/04/2024 8:16 AM EDT NEUROLOGICAL SURGERY [place]GR[place] [facility] [place] [id number] Name: Judy Garcia Location: [facility] [place] A470/A Date: 03/04/2024 Time: 8:16 AM Hospital day number: 3 SUBJECTIVE: NAEO OBJECTIVE: Most recent vital signs: BP: 102 mmHg/64 mmHg (03/04/24614) Pulse: 74 (03/04/24614) Resp: 18 (03/04/24614) Temp: 36.89 C (03/04/24614) Temp Summary: Temp Min: 36 C (96.8 F) Max: 37.2 C (99 F) SpO2: 96 % (03/04/24614) O2 flow rate: 0 L/MIN (03/03/24 1411) Supplemental O2 Delivery: Room Air, None (03/04/24614) Vital signs over last 24 hours: Systolic BP: Most Recent Systolic BP Av.9 mmHg Min: 97 mmHg Max: 132 mmHg Temperature: Most Recent Temperature Av.6 C Min: 36 C Max: 37.22 C Pulse: Pulse Avg: Pulse Av.6 Min: 71 Max: 83 Respirations: Resp Av.5 Min: 10 Max: 18 SpO2: SpO2 Av.8 % Min: 90 % Max: 100 % SpO2: SpO2 Av.8 % Min: 90 % Max: 100 % FiO2%: No data recorded ICP: No data found.CPP (adult): No data found.Intake Input/Output: (last 24 hours) Intake/Output Summary (Last 24 hours) at 03/04/2024 0816 Last data filed at 03/03/20242014 Gross per 24 hour Intake 1990 ml Output 725 ml Net 1265 ml Incision: andre, stapled Telfa Drains: none Neurologic Examination [place] Coma Scale (GCS): Eyes Open: 4 = spontaneous Best Verbal Response: 5 = verbally appropriate for age Best Motor Response: 6 = obeys commands appropriate for age Coma Score: 15 Awake, alert, oriented to person, place, time PERRL EOMI No facial droop No pronator drift LUCIA to command RUE 5/5 LUE 5/5 RLE 5/5 LLE 5/5 Sensation grossly intact Mild transcortical motor aphasia (present pre-operatively) Able to name most objects LABS: Blood count: Lab Results Component Value Date/Time WBC 7.95 03/01/2024 01:16 PM WBC 8.18 05/10/2020 02:10 PM HGB 13.5 03/01/2024 01:16 PM HGB 12.8 05/10/2020 02:10 PM HCT 40.1 03/01/2024 01:16 PM HCT 36.9 05/10/2020 02:10 PM PLT 334 03/01/2024 01:16 PM PLT 359 05/10/2020 02:10 PM Coagulation studies: Lab Results Component Value Date/Time INR 0.8 03/01/2024 01:16 PM Chemistry: Lab Results Component Value Date/Time BUN 18 03/01/2024 01:16 PM BUN 10 05/10/2020 02:10 PM CREAT 0.7 03/01/2024 01:16 PM CREAT 0.8 05/10/2020 02:10 PM GFRESTIMATED >60.0 05/10/2020 02:10 PM NA 138 03/01/2024 01:16 PM NA 130 (L) 05/10/2020 02:10 PM POTASSIUM 3.3 (L) 03/01/2024 01:16 PM POTASSIUM 4.0 05/10/2020 02:10 PM CO2 25 03/01/2024 01:16 PM CO2 28 05/10/2020 02:10 PM Imaging studies: My interpretation of: MRI brain shows some residual Problem list: Principal Problem: Metastasis to brain (HCC) Resolved Problems: * No resolved hospital problems. * CLINICAL HISTORY AND PLAN: Judy Garcia is a 63 year old female patient s/p L frontal metastatic melanoma resection with Dr. Hand on 03/03/24. Hx of prior R parietal craniotomy and L frontal ALYSHA/biopsy to this lesion. Floor status q4 neuro checks, vitals SBP goal < 160 MRI brain w/wo contrast done Dexamethasone taper x 10 days No AEDs needed at this time Pain control Continue perioperative abx Maintenance fluids until adequate PO No drain GI ppx while on steroids Bowel regimen Antiemetics Regular diet Incentive spirometer Continue home meds VTE ppx with SCDs, TEDs, SQH OOB as tolerated. PT/OT Ok for dc home 2w follow up [facility] [place] clinic Discussed with Dr. Yazan Lucio MD Neurosurgery, PGY3 Associated attestation - Joni Hand III, MD - 03/04/2024 8:22 AM EDT I saw and evaluated the patient today. I have reviewed the resident/fellow physician note and agree. * Care Plan - Elizabeth Zurita RN - 03/04/2024 12:06 AM EDT Clinical Goal(s): Pt will remain free of injury (03/03/242014) Possible barriers to meeting goal(s)/advancing plan of care: Intermittent confusion, limited safetyawareness Stability of the patient: Moderately stable - low risk of patient condition declining or worsening Summary regarding today's goal(s): Met: Recommendations: Maintain safety measures * Care Plan - Jo Ann Britt RN - 03/03/2024 2:36 PM EDT Clinical Goal(s): Pt will be free from falls this shift (03/03/24 0700) Possible barriers to meeting goal(s)/advancing plan of care: surgery Stability of the patient: Moderately stable - low risk of patient condition declining or worsening Summary regarding today's goal(s): Met: pt did not fall Recommendations: continue purposeful hourly rounding * Progress Notes - Post-Op Global - Frederick Perdomo MD - 03/03/2024 11:24 AM EDT NEUROLOGICAL SURGERY PROGRESS [place] [facility] [place] [phone] Name: Judy Garcia Location: [place] [facility] [place] Date: 03/03/2024 Time: 11:24 AM Hospital day number: 2 SUBJECTIVE: Transferred to PACU without issue OBJECTIVE: Most recent vital signs: BP: 120 mmHg/64 mmHg (03/03/24699) Pulse: 64 (03/03/24699) Resp: 17 (03/03/24699) Temp: 36.39 C (03/03/24644) Temp Summary: Temp Min: 36.1 C (97 F) Max: 37.2 C (99 F) SpO2: 95 % (03/03/24699) O2 flow rate: Supplemental O2 Delivery: Room Air, None (03/03/24644) Vital signs over last 24 hours: Systolic BP: Most Recent Systolic BP Av mmHg Min: 98 mmHg Max: 120 mmHg Temperature: Most Recent Temperature Av.6 C Min: 36.11 C Max: 37.22 C Pulse: Pulse Avg: Pulse Av.4 Min: 61 Max: 70 Respirations: Resp Av.8 Min: 17 Max: 18 SpO2: SpO2 Av.8 % Min: 92 % Max: 97 % SpO2: SpO2 Av.8 % Min: 92 % Max: 97 % FiO2%: No data recorded ICP: No data found.CPP (adult): No data found.Intake Input/Output: (last 24 hours) Intake/Output Summary (Last 24 hours) at 03/03/2024 1124 Last data filed at 03/03/2024 1050 Gross per 24 hour Intake 1650 ml Output 525 ml Net 1125 ml Incision: andre, stapled Telfa Drains: none Neurologic Examination [place] Coma Scale (GCS): Eyes Open: 4 = spontaneous Best Verbal Response: 5 = verbally appropriate for age Best Motor Response: 6 = obeys commands appropriate for age Coma Score: 15 Awake, alert, oriented to person, place, time PERRL EOMI No facial droop No pronator drift LUCIA to command RUE 5/5 LUE 5/5 RLE 5/5 LLE 5/5 Sensation grossly intact Mild transcortical motor aphasia (present pre-operatively) Able to name most objects Tends to repeat the phrase "05/13" LABS: Blood count: Lab Results Component Value Date/Time WBC 7.95 03/01/2024 01:16 PM WBC 8.18 05/10/2020 02:10 PM HGB 13.5 03/01/2024 01:16 PM HGB 12.8 05/10/2020 02:10 PM HCT 40.1 03/01/2024 01:16 PM HCT 36.9 05/10/2020 02:10 PM PLT 334 03/01/2024 01:16 PM PLT 359 05/10/2020 02:10 PM Coagulation studies: Lab Results Component Value Date/Time INR 0.8 03/01/2024 01:16 PM Chemistry: Lab Results Component Value Date/Time BUN 18 03/01/2024 01:16 PM BUN 10 05/10/2020 02:10 PM CREAT 0.7 03/01/2024 01:16 PM CREAT 0.8 05/10/2020 02:10 PM GFRESTIMATED >60.0 05/10/2020 02:10 PM NA 138 03/01/2024 01:16 PM NA 130 (L) 05/10/2020 02:10 PM POTASSIUM 3.3 (L) 03/01/2024 01:16 PM POTASSIUM 4.0 05/10/2020 02:10 PM CO2 25 03/01/2024 01:16 PM CO2 28 05/10/2020 02:10 PM Imaging studies: No new images Problem list: Principal Problem: Metastasis to brain (HCC) Resolved Problems: * No resolved hospital problems. * CLINICAL HISTORY AND PLAN: Judy Garcia is a 63 year old female patient s/p L frontal metastatic melanoma resection with Dr. Hand on 03/03/24. Hx of prior R parietal craniotomy and L frontal ALYSHA/biopsy to this lesion. Floor status q4 neuro checks, vitals SBP goal < 140 MRI brain w/wo contrast Dexamethasone taper x 10 days No AEDs needed at this time Pain control Continue perioperative abx Maintenance fluids until adequate PO No drain GI ppx while on steroids Bowel regimen Antiemetics Regular diet, pending bedside dysphasia screen Incentive spirometer Continue home meds VTE ppx with SCDs, TEDs, SQH tomorrow OOB as tolerated. PT/OT Patient will be discussed with Dr. Hand Associated attestation - Joni Hand III, MD - 03/03/2024 2:41 PM EDT I saw and evaluated the patient today. I have reviewed the resident/fellow physician note and agree. * Care Plan - Elizabeth Zurita RN - 03/03/2024 1:34 AM EDT Clinical Goal(s): Pt will remain free of injury (03/02/24 2315) Possible barriers to meeting goal(s)/advancing plan of care: Disoriented Stability of the patient: Moderately stable - low risk of patient condition declining or worsening Summary regarding today's goal(s): Met: Recommendations: Maintain safety measures * Ancillary Progress Note - Kelton Chicas II, RDN - 03/02/2024 1:54 PM EDT CLINICAL NUTRITION ADULT RISK ASSESSMENT [address] [address] Name: Judy Garcia [place] [facility] [place] A470/A Date: 03/02/2024 Time: 1:55 PM How patient was identified (select 2): Medical record number, date, and Name Ida Garcia is a 63 year old female being assessed for clinical nutrition risk related to significant unintentional weight loss Primary diagnosis: metastatic brain cancer. Plan is for L frontal craniotomy tomorrow 03/03. Other pertinent information: Patient reports good appetite. Patient becomes confused often during interview. Appears to have memory issues. Anthropometrics Measurements Admission weight (for dietitians): 134 lb Height: 157.5 cm (5' 2") (03/01/24 1308) Weight: 61.1 kg (134 lb 11.2 oz) (03/01/24 1308) BMI: 24.63 (03/01/24 1308) Usual Body Weight or EDW for Dialysis Patients: 150 lb 1 year ago per EHR Diet: Regular Previously followed diet: Regular Food Allergies/Intolerances: none Pertinent medications/vitamins/minerals/supplements: decadron, pepcid, Levoxyl, RISK FACTORS: Adult Energy Intake: No significant decrease Interpretation of Weight Change: No recent/significant weight change Skin: Intact NUTRITION RISK CATEGORY: Nutrition Risk Category: Low/Moderate (0-1 factors) Clinical Nutrition Recommendations: Diet: Continue current nutrition plan NUTRITION INTERVENTION/PLAN: Risk/Re-risk Assessment completed. Continue current care plan Will follow and adjust nutritional plan as medical condition requires. Please contact for change(s)in patient condition requiring earlier intervention. * Care Plan - Gianna Klein RN - 03/02/2024 12:32 PM EDT Clinical Goal(s): The pt will be free from falls this shift. (03/02/24 0700) Possible barriers to meeting goal(s)/advancing plan of care: Weakness, confusion, unfamiliar environment. Stability of the patient: Moderately stable - low risk of patient condition declining or worsening Summary regarding today's goal(s): Met: The pr remained free from falls this shift. Recommendations: Continue with fall precautions and purposeful hourly rounding. * Care Plan - Laura David RN - 03/01/2024 8:06 PM EDT Clinical Goal(s): Pt will remain free from falls (03/01/24 1900) Possible barriers to meeting goal(s)/advancing plan of care: weakness Stability of the patient: Moderately stable - low risk of patient condition declining or worsening Summary regarding today's goal(s): Met: pt remained free from falls Recommendations: maintain CVM for safety, fall precautions, hourly rounding, pain mgmt * Respiratory Progress Note - Demetria Schaeffer, ORDER PROCESSING CLERK - 03/01/2024 2:44 PM EDT PATIENT DRIVEN PROTOCOL - Respiratory Care Services [address] [address] Name: Judy Garcia [place] [facility] A470/A Date: 03/01/2024 Time: 2:44 PM Patient Driven Protocol Summary: Initial evaluation performed. This Treatment Plan and medications will be reviewed by the Primary Care Team for any contraindications. Respiratory Care Treatment Plan Pulmonary Volume Expansion Therapy: Incentive Spirometry PRN to prevent or treat alveolar consolidation and atelectasis. . Secretion Management Treatment: Flutter TherapyPRN to enhance mobilization of secretions. . The patient will be re-evaluated: No re-evaluation needed. Indications for treatment met. The Triage Level is: (Assessment Score = 6 -10) Level 4. Triage Level Definitions: Level 1 Severe Respiratory/Airway Compromise Level 2 Moderate Respiratory/Airway Compromise or high risk for pulmonary complications Level 3 Mild Respiratory/Airway Compromise or moderate risk for pulmonary complications Level 4 Episodic Respiratory/Airway Compromise or low risk for pulmonary complications Level 5 No Respiratory/Airway Compromise Triage 1 Triage 2 Triage 3 Triage 4 Triage 5 greater than 20 16 - 20 11 - 15 6 - 10 0 - 5 Medical Record Assessment Clinical Findings Pulmonary Status: 2 - Smoking more than or equal to 1 pack/day Surgical Status: 0 - No Surgical History Chest X-Ray: 1 - CXR Pending Assessment Score: 3 Patient Assessment Clinical Findings Respiratory Pattern: 0 - RR 12 - 20; Patient only gets breathless with strenuous exercise. Breath Sounds: 2 - Diminished bilaterally Cough Effectiveness: 0 - Strong non-productive Sputum Production: 0 - No sputum production Level of Activity: 2 - Temporarily non-ambulatory O2 needed to keep SpO2 greater than or equal to 92%: 0 - Room Air Assessment Score: 4 Total Assessment Score: 7 Breath Sounds: Inspiratory and expiratory diminished bilaterally.. Cough and Sputum: No cough was present.. CXR: pending. Vital Signs: Resp: 16 (03/01/24 1308) Pulse: 80 (03/01/24 1308) Temp: 36.2 C (97.2 F) (03/01/24 1308) BP: 96/82 (03/01/24 1308) SpO2: 98 % (03/01/24 1308) PFT: Inspiratory capacity: 1L. Primary Service: Neurosurgery. Admitting Diagnosis: Metastasis to brain (HCC) [C79.31] Pulmonary Diagnosis: Hypertension and smoker . documented in this encounter Plan of Treatment Upcoming Encounters Date Type Department Care Team (Late st Contact Info) Description 03/09/2024 9:45 AM EDT Pharmacy Pharmacy Hematology Oncology [facility], [address] [address] [facility] [place] Hem/Onc [address] [place] [phone] 03/10/2024 3:00 PM EDT Office Visit [place] [address] [place] [phone] Baldev Solorio MD [address], [place] [phone] 03/15/2024 10:15 AM EDT Office Visit Neurosurgery, [place] [address] [place] [address] Clinic, Brain Tumor Multidisciplinary [facility] [place] [address] 05/06/2024 2:45 PM EDT Office Visit Hematology/Oncology [facility] [address], [place] [phone] Benja Watkins MD [address], [place] [address] 08/02/2024 8:20 AM EST Office Visit [facility] [address] [place] [phone] Baldev Solorio MD [address] [place] [address] 10/05/2024 12:30 PM EDT Telemedicine Care at Home [address] [place] [address] Kori Dumont PA-C [address] [facility] [place] [address] 02/14/2025 8:00 AM EDT Imaging Radiology [address] [place] [address] Pending Results Name Type Priority Associated Diagnoses Date /Time SURGICAL PATHOLOGY Pathology Routine Metastasis to brain (HCC) 03/03/2024 10:09 AM EDT Scheduled Orders Name Type Priority Associated Diagnoses Orde r Schedule SURGICAL PATHOLOGY Pathology Routine Metastasis to brain (HCC) Release Upon Ordering for 1 Occurrences starting 03/03/2024, 1 completed Scheduled Procedures Name Priority Associated Diagnoses Date/Ti [...] this encounter Medical Devices Implanted Type Area Dielectric Testing Machine Operator Device Identifier Shelf Expiration Date Model / Serial / Lot Cover [place] 24mm 421.528 - [id number] Implanted:Qty: 1 on 08/20/2021 by Joni Hand III, MD at [place] [facility] Right: Head SYNTHES MAXILLOFACIAL 421.528 / / Plate Y Ti Lo Db 6h 21 421.517 - [id number] Implanted:Qty: 1 on 08/20/2021 by Joni Hand III, MD at [place] [facility] Right: Head [employer]ILL[employer]IAL 421.517 / / Screw Ti Lo Pro Sd 4mm 400.834 - [id number] Implanted:Qty: 10 on 08/20/2021 by Joni Hand III, MD at [place] [facility] Right: Head [employer] MAXILL[employer] 400.834 / / Cement Hydroset Injectable 5cc - [id number] Implanted:Qty: 1 on 03/03/2024 by Joni Hand III, MD at [place] [facility] Left: Head SUZANNA [id number] 09/19/2025 [id number] / / [id number] Cover Bur Hol Ti Lo 17 421.527 - [id number] Implanted:Qty: 1 on 03/03/2024 by Joni Hand III, MD at [place] [facility] Left: Head [employer]ILL[employer] 421.527 / / Plate Ti Lo Pro Str 2h 421.502 - [id number] Implanted:Qty: 2 on 03/03/2024 by Joni Hand III, MD at [place] [facility] Left: Head [employer]ILL[employer] 421.502 / / Screw 4mm Ti Low Pro Sdrill - [id number] Implanted:Qty: 7 on 03/03/2024 by Joni Hand III, MD at [place] [facility] Left: Head [employer]ILL[employer] 400.834E / / documented as of this encounter Procedures Procedure Name Priority Date/Time Associated Diagnosis Comments MRI BRAIN W WO CONTRAST Routine 03/04/20 3:28 AM EDT WHOLE BLOOD PROFILE, ARTERIAL STAT 03/03/2024 9:35 AM EDT Stereotactic Cranial Intradural Navigation 03/03/2024 7:30 AM EDT Metastasis to brain (HCC) MICROSURGERY ADD-ON 03/03/2024 7 :30 AM EDT Metastasis to brain (HCC) REMOVE SUPRATENTORIAL BRAIN TUMOR 03/03/2024 7:30 AM EDT Metastasis to brain (HCC) CT HEAD/BRAIN W CONTRAST Routine 03/01/2024 5:30 PM EDT Cerebral edema (HCC) Other specified disorders of brain CT CHEST/ABDOMEN/PELVIS WITH IV CONTRAST WITHOUT ORAL CONTRAST Routine 03/01/2024 5:30 PM EDT Metastasis to brain (HCC) STAPH AUREUS PCR Routine 03/01/2024 1:32 PM EDT MRSA SCREEN, PCR Routine 03/01/2024 1:32 PM EDT DIFFERENTIAL, AUTOMATED Routine 03/01/20 1:16 PM EDT BASIC METABOLIC PANEL Routine 03/01/2024 1:16 PM EDT TYPE AND SCREEN Routine 03/01/2024 1:16 PM EDT CBC Routine 03/01/2024 1:16 PM EDT PT INR Routine 03/01/2024 1:16 PM EDT CBC Routine 03/01/2024 1:16 PM EDT documented in this encounter Results * MRI BRAIN W WO CONTRAST (03/04/2024 3:28 AM EDT) Anatomical Region Laterality Modality Neuro, Head Magnetic Resonan ce 03/04/2024 8:26 AM EDT Impressions 03/04/2024 8:24 AM EDT IMPRESSION Expected interval postoperative changes of left frontal craniotomy for 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 Narrative 03/04/2024 8:24 AM EDT EXAM MRI BRAIN W WO CONTRAST- 03/04/2024 3:28 am HISTORY postop brain tumor removal COMPARISON CT head dated 03/01/2024, MRI brain dated 02/20/2024 TECHNIQUE Multiplanar, multisequence magnetic resonance imaging of the brain was performed before and after the administration of intravenous contrast. 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 Thin enhancement at the periphery of the resection cavity, possibly reflecting prior post-ablation changes or postsurgical blood-brain barrier disruption. Similar-appearing left frontoinsular edema. Postsurgical changes of prior right parietal and occipital craniotomies are again noted with stable encephalomalacia and linear enhancement in the right parietal lobe There is no evidence of acute intracranial hemorrhage, transcortical infarction, hydrocephalus, or extra-axial fluid collection. The paranasal sinuses and mastoid air cells are predominantly clear. Degenerative changes and a CT of partially imaged in the upper cervical spine. Procedure Note Rakesh King MD - 03/04/2024 EXAM MRI BRAIN W WO CONTRAST- 03/04/2024 3:28 am HISTORY postop brain tumor removal COMPARISON CT head dated 03/01/2024, MRI brain dated 02/20/2024 TECHNIQUE Multiplanar, multisequence magnetic resonance imaging of the brain wasperformed before and after the administration of intravenous contrast. FINDINGS Interval postoperative changes of left frontal craniotomy for resection ofthe previously-ablated left frontal lobe tumor are noted with associatedpostsurgical blood products, pneumocephalus, and marginal diffusionrestriction. Thin enhancement at the periphery of the resection cavity,possibly reflecting prior post-ablation changes or postsurgicalblood-brain barrier disruption. Similar-appearing left frontoinsular edema. Postsurgical changes of priorright parietal and occipital craniotomies are again noted with stableencephalomalacia and linear enhancement in the right parietal lobe There is no evidence of acute intracranial hemorrhage, transcorticalinfarction, hydrocephalus, or extra-axial fluid collection. The paranasal sinuses and mastoid air cells are predominantly clear.Degenerative changes and a CT of partially imaged in the upper cervicalspine. IMPRESSION IMPRESSION Expected interval postoperative changes of left frontal craniotomy for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 Frederick Perdomo MD RAD MRI-MRA * (ABNORMAL) WHOLE BLOOD PROFILE, ARTERIAL (03/03/2024 9:35 AM EDT) Temperature 37.0 C 03/03/2024 9:41 AM EDT LAB[facility]ATORY [facility] pH, Arterial 7.449 7.350 - 7.450 units 03/03/2024 9:41 AM EDT [facility] pCO2, Arterial 36.4 35.0 - 45.0 mmHg 03/03/2024 9:41 AM EDT [facility] pO2, Arterial 122.0(H) 75.0 - 100.0 mmHg 03/03/2024 9:41 AM EDT LAB[facility] Base Excess, Arterial 1.5 -2.0 - 2.0 mmol/L 03/03/2024 9:41 AM EDT [facility] HGB 10.8(L) 12.0 - 15.3 g/dL 03/03/2024 9:41 AM EDT [facility] Oxyhemoglobin, Arterial 96.4 94.0 - 99.0 % total Hgb 03/03/2024 9:41 AM EDT LAB[facility] Carboxyhemoglobi n, Whole Blood 1.2 <=1.5 % total Hgb 03/03/2024 9:41 AM EDT [facility] Comment:Smokers: 0-9.0 % Methemoglobin, Whole Blood 0.9 <=1.5 % total Hgb 03/03/2024 9:41 AM EDT [facility] Reduced Hemoglobin, Arterial 1.5 0.0 - 5.0 % total Hgb 03/03/2024 9:41 AM EDT [facility] O2 Content, Arterial 14.9(L) 15.0 - 24.0 %vol 03/03/2024 9:41 AM EDT LAB[facility] Potassium, Whole Blood 3.4(L) 3.5 - 5.1 mmol/L 03/03/2024 9:41 AM EDT [facility] Sodium, Whole Blood 139 135 - 146 mmol/L 03/03/2024 9:41 AM EDT [facility] Chloride, Whole Blood 105 98 - 107 mmol/L 03/03/2024 9:41 AM EDT [facility] Calcium, Ionized, Whole Blood 1.11(L) 1.13 - 1.32 mmol/L 03/03/2024 9:41 AM EDT [facility] Anion Gap, Whole Blood 9.7 7.0 - 15.0 mmol/L 03/03/2024 9:41 AM EDT [facility] Glucose, Whole Blood 101 70 - 120 mg/dL 03/03/2024 9:41 AM EDT [facility] FiO2 50% % 03/03/2024 9:41 AM EDT [facility] O2 Flow, Arterial 1 L/min L/min 03/03/2024 9:41 AM EDT [facility] Bicarbonate, Whole Blood 24.9 23.0 - 31.0 mmol/L 03/03/2024 9:41 AM EDT LABORATORY [facility] Blood Arterial blood specimen / Unknown Arterial Puncture / Unknown 03/03/2024 9:35 AM EDT 03/03/2024 9:38 AM EDT Rebecca Sweeney MD LAB BLOOD ORDERABLES LABORATORY [facility] [address] [place] [address] * CT HEAD/BRAIN W CONTRAST (03/01/2024 5:30 PM EDT) Anatomical Region Laterality Modality Head Computed Tomogra phy 03/01/2024 5:49 PM EDT Impressions 03/01/2024 5:46 PM EDT IMPRESSION: Preoperative CT scan for surgical planning with stable left frontoinsular vasogenic edema and local mass effect. Narrative 03/01/2024 5:46 PM EDT EXAM: CT HEAD/BRAIN W CONTRAST - 03/01/2024 HISTORY: BRAINLAB sequencing for surgical planning TECHNIQUE: CT scan of the head was performed without intravenous contrast. COMPARISON: Prior examinations, including MRI brain dated 02/20/2024 FINDINGS: Postoperative changes of prior right temporal and parietal craniotomies for tumor resection are again noted with stable parietal lobe encephalomalacia. Postsurgical changes of left nilda hole ALYSHA procedure again noted with stable vasogenic edema and local mass effect. There is no evidence of acute intracranial hemorrhage, transcortical infarction, hydrocephalus, or extra-axial fluid collection. The paranasal sinuses and mastoid air cells are predominantly clear. ACDF hardware noted on the administrative tech image. Procedure Note Rakesh King MD - 03/01/2024 EXAM: CT HEAD/BRAIN W CONTRAST - 03/01/2024 HISTORY: BRAINLAB sequencing for surgical planning TECHNIQUE: CT scan of the head was performed without intravenous contrast. COMPARISON: Prior examinations, including MRI brain dated 02/20/2024 FINDINGS: Postoperative changes of prior right temporal and parietal craniotomiesfor tumor resection are again noted with stable parietal lobeencephalomalacia. Postsurgical changes of left nilda hole ALYSHA procedureagain noted with stable vasogenic edema and local mass effect. There is no evidence of acute intracranial hemorrhage, transcorticalinfarction, hydrocephalus, or extra-axial fluid collection. The paranasal sinuses and mastoid air cells are predominantly clear. ACDFhardware noted on the administrative tech image. IMPRESSION IMPRESSION: Preoperative CT scan for surgical planning with stable left frontoinsularvasogenic edema and local mass effect. José Luis Paul IV, PA-C RAD CT * CT CHEST/ABDOMEN/PELVIS WITH IV CONTRAST WITHOUT ORAL CONTRAST (03/01/2024 5:30 PM EDT) Anatomical Region Laterality Modality Body, Chest, Abdomen, Pelvis, Cardio Computed Tomography 03/01/2024 6:48 PM EDT Impressions 03/01/2024 6:45 PM EDT IMPRESSION 1. No evidence of metastatic disease in the chest, abdomen, or pelvis. 2. Chronic findings as above. Narrative 03/01/2024 6:[address] CHEST/ABDOMEN/PELVIS WITH IV CONTRAST WITHOUT ORAL CONTRAST - 03/01/2024 5:30 pm HISTORY brain mets. Evaluation for other systemic disease TECHNIQUE Axial images of the chest, abdomen, and pelvis were acquired. Coronal and sagittal reformats are provided. Oral Contrast: Not administered. IV Contrast: None administered. Absence of intravenous contrast limits evaluation of visceral structures, vasculature, and other processes. COMPARISON CT of the chest and body from 08/18/2021 FINDINGS LINES AND DEVICES: None. CHEST: LUNGS: Unremarkable. PLEURA: No pleural effusions. LARGE AIRWAYS: Patent airways. HEART: Unremarkable. VESSELS: Unremarkable. Moderate coronary artery calcifications. THYROID: Unremarkable. MEDIASTINUM: No lymphadenopathy. CHEST WALL/SOFT TISSUES: Unremarkable. ABDOMEN/PELVIS: LIVER: Unremarkable. BILE DUCTS: Unremarkable. GALLBLADDER: Cholecystectomy clips. PANCREAS: Unremarkable. SPLEEN: Unremarkable. STOMACH/DUODENUM: Food Debris-filled stomach. ADRENALS: Unremarkable. KIDNEYS/URETERS: Unremarkable. BLADDER: Unremarkable. REPRODUCTIVE ORGANS: Unremarkable. BOWEL: Unremarkable. VESSELS: Mild atherosclerotic vascular calcifications. LYMPH NODES: No lymphadenopathy. PERITONEUM/RETROPERITONEUM: No free fluid or free air. ABDOMINAL WALL/SOFT TISSUES: Unremarkable. BONES: Intact lower cervical ACDF. Mild degenerative changes without aggressive osseous lesions. 1.3 cm anterolisthesis of L4 on L5. Procedure Note Rusty, Emeterio E, DO - 03/01/[address] CHEST/ABDOMEN/PELVIS WITH IV CONTRAST WITHOUT ORAL CONTRAST - :30 pm HISTORY brain mets. Evaluation for other systemic disease TECHNIQUE Axial images of the chest, abdomen, and pelvis were acquired. Coronal andsagittal reformats are provided. Oral Contrast: Not administered. IV Contrast: None administered. Absence of intravenous contrast limitsevaluation of visceral structures, vasculature, and other processes. COMPARISON CT of the chest and body from 08/18/2021 FINDINGS LINES AND DEVICES: None. CHEST: LUNGS: Unremarkable. PLEURA: No pleural effusions. LARGE AIRWAYS: Patent airways. HEART: Unremarkable. VESSELS: Unremarkable. Moderate coronary artery calcifications. THYROID: Unremarkable. MEDIASTINUM: No lymphadenopathy. CHEST WALL/SOFT TISSUES: Unremarkable. ABDOMEN/PELVIS: LIVER: Unremarkable. BILE DUCTS: Unremarkable. GALLBLADDER: Cholecystectomy clips. PANCREAS: Unremarkable. SPLEEN: Unremarkable. STOMACH/DUODENUM: Food Debris-filled stomach. ADRENALS: Unremarkable. KIDNEYS/URETERS: Unremarkable. BLADDER: Unremarkable. REPRODUCTIVE ORGANS: Unremarkable. BOWEL: Unremarkable. VESSELS: Mild atherosclerotic vascular calcifications. LYMPH NODES: No lymphadenopathy. PERITONEUM/RETROPERITONEUM: No free fluid or free air. ABDOMINAL WALL/SOFT TISSUES: Unremarkable. BONES: Intact lower cervical ACDF. Mild degenerative changes withoutaggressive osseous lesions. 1.3 cm anterolisthesis of L4 on L5. IMPRESSION IMPRESSION 1. No evidence of metastatic disease in the chest, abdomen, or pelvis. 2. Chronic findings as above. José Luis Paul IV, PA-C RAD CT * MRSA SCREEN, PCR (03/01/2024 1:32 PM EDT) MRSA PCR Result Negative Negative 4 3:33 PM EDT LABORATORY C Comment:No Methicillin resis tant Staphylococcus aureus detected by PCR (amplified probe). Upper Respiratory Swab of internal nose / Unknown Non-blood Collection / Unknown 03/01/2024 1:32 PM EDT 03/01/2024 1:59 PM EDT José Luis Farooq Humberto IV, PA-C LAB MICRO - G ENERAL ORDERABLES Performing Organization Address [facility] Co de Phone Number LABORATORY [facility] [address] [place] [address] * STAPH AUREUS PCR (03/01/2024 1:32 PM EDT) [facility] MRSA PCR Result Negative Negative 3:30 PM EDT LABORATORY [facility] Comment:No Methicillin resis tant Staphylococcus aureus detected by PCR (amplified probe). Staphylococcus aureus PCR Result Negative Negative 03/01/2024 3:30 PM EDT LABORATORY [facility] Comment:No Staphylococcus au reus detected by PCR (amplified probe). Upper Respiratory Swab of internal nose / Unknown Non-blood Collection / Unknown 03/01/2024 1:32 PM EDT 03/01/2024 1:59 PM EDT José Luis Paul IV, PA-C LAB MICRO - G ENERAL ORDERABLES Performing Organization Address [facility] de Phone Number LABORATORY [facility] [address] [place] [address] * (ABNORMAL) DIFFERENTIAL, AUTOMATED (03/01/2024 1:16 PM EDT) [facility] WBC 7.95 4.00 - 10.80 K/uL 03/01/2024 1:33 PM EDT [facility] Neutrophils % 75.6(H) 40.0 - 75.0 % 03/01/2024 1:33 PM EDT [facility] Lymphocytes % 16.9(L) 18.0 - 42.0 % 03/01/2024 1:33 PM EDT [facility] Monocytes % 6.8 1.0 - 11.0 % 03/01/2024 1:33 PM EDT [facility] Eosinophils % 0.1 0.0 - 6.0 % 03/01/2024 1:33 PM EDT [facility] Basophils % 0.3 0.0 - 2.0 % 03/01/2024 1:33 PM EDT [facility] Immature Granulocytes % 0.3 0.0 - 2.0 % 03/01/2024 1:33 PM EDT [facility] Absolute Neutrophils 6.02 1.80 - 7.70 K/uL 03/01/2024 1:33 PM EDT [facility] Absolute Lymphocytes 1.34 1.00 - 4.80 K/ul 03/01/2024 1:33 PM EDT [facility] Absolute Monocytes 0.54 0.00 - 1.10 K/uL 03/01/2024 1:33 PM EDT [facility] Absolute Eosinophils 0.01 0.00 - 0.70 K/uL 03/01/2024 1:33 PM EDT [facility] Absolute Basophils 0.02 0.00 - 0.20 K/uL 03/01/2024 1:33 PM EDT [facility] Absolute Immature Granulocytes 0.02 0.00 - 0.20 K/uL 03/01/2024 1:33 PM EDT [facility] Blood Venous blood specimen / Unknown Venipuncture / Unknown 03/01/2024 1:16 PM EDT 03/01/2024 1:23 PM EDT José Luis Paul IV, PA-C LAB BLOOD ORD ERABLES [facility] [address] [place] [address] * CBC (03/01/2024 1:16 PM EDT) WBC 7.95 4.00 - 10.80 K/uL 03/01/2024 1:33 PM EDT [facility] RBC 4.27 3.85 - 5.15 M/uL 03/01/2024 1:33 PM EDT LAB[facility] HGB 13.5 12.0 - 15.3 g/dL 03/01/2024 1:33 PM EDT [facility] HCT 40.1 36.0 - 45.2 % 03/01/2024 1:33 PM EDT [facility] MCV 93.9 81.5 - 97.5 fL 03/01/2024 1:33 PM EDT [facility] MCH 31.6 27.0 - 34.0 pg 03/01/2024 1:33 PM EDT [facility] MCHC 33.7 32.0 - 36.0 g/dL 03/01/2024 1:33 PM EDT [facility] RDW 14.4 11.5 - 15.5 % 03/01/2024 1:33 PM EDT LABORATORY [facility] PLT 334 140 - 400 K/uL 03/01/2024 1:33 PM EDT LABORATORY [facility] MPV 9.3 6.6 - 11.1 fL 03/01/2024 1:33 PM EDT LABORATORY [facility] nRBCs 0 <=0 /100 WBCs 03/01/2024 1:33 PM EDT LABORATORY [facility] Blood Venous blood specimen / Unknown Venipuncture / Unknown 03/01/2024 1:16 PM EDT 03/01/2024 1:23 PM EDT José Luis Paul IV, PA-C LAB BLOOD ORD ERABLES Performing Organization Address [place]/[facility] Co de Phone Number LABORATORY [facility] [address], [place] [id number] * TYPE AND SCREEN (03/01/2024 1:16 PM EDT) ABO A 03/01/2024 3:23 PM EDT LABORATORY [facility] BLOOD BANK Rh Positive 03/01/2024 3:23 PM EDT LABORATORY [facility] BLOOD BANK Red Blood Cell Antibody Screen Negative 03/01/2024 3:23 PM EDT LABORATORY [facility] BLOOD BANK Specimen Expiration Date 03/04/2024 23:59 03/01/2024 3:23 PM EDT LABORATORY [facility] BLOOD BANK Blood Venous blood specimen / Unknown Venipuncture / Unknown 03/01/2024 1:16 PM EDT 03/01/2024 1:28 PM EDT José Luis Paul IV, PA-C LAB BLOOD BAN K TEST ORDERABLES Performing Organization Address [facility] [facility] Co de Phone Number [facility]AT[facility] [address] [place] [address] * (ABNORMAL) PT INR (03/01/2024 1:16 PM EDT) Prothrombin Time 11.2(L) 11.6 - 15.2 seconds 03/01/2024 1:44 PM EDT [facility] INR 0.8 0.8 - 1.2 03/01/2024 1:44 PM EDT LABORATORY C Blood Venous blood specimen / Unknown Venipuncture / Unknown 03/01/2024 1:16 PM EDT 03/01/2024 1:23 PM EDT Narrative LABORATORY [facility] - 03/01/2024 1:44 PM EDT Warfarin Therapy INR: 2.0-3.0 conventional anticoagulation INR: 2.5-3.5 high intensity anticoagulation José Luis Paul IV, PA-C LAB BLOOD ORD ERABLES [facility] [address] [place] [address] * (ABNORMAL) BASIC METABOLIC PANEL (03/01/2024 1:16 PM EDT) BUN 18 6 - 20 mg/dL 03/01/2024 1:51 PM EDT LABORATORY C Creatinine 0.7 0.5 - 1.0 mg/dL 03/01/2024 1:51 PM EDT LAB[facility]ATORY [facility] Estimated Glomerular Filtration Rate >90 >=60 mL/min 03/01/2024 1:51 PM EDT LABORATORY C Comment:eGFR is calculated b ased on the CKD-EPI 2020 equation. Sodium 138 135 - 146 mmol/L 03/01/2024 1:51 PM EDT LAB[facility]ATORY [facility] Potassium 3.3(L) 3.5 - 5.1 mmol/L 03/01/2024 1:51 PM EDT LAB[facility]AT[facility] Chloride 100 98 - 107 mmol/L 03/01/2024 1:51 PM EDT LAB[facility]ATORY [facility] CO2 25 22 - 32 mmol/L 03/01/2024 1:51 PM EDT LAB[facility]ATORY [facility] Anion Gap 13 7 - 15 mmol/L 03/01/2024 1:51 PM EDT LABORATORY C Glucose 127(H) 70 - 120 mg/dL 03/01/2024 1:51 PM EDT LAB[facility]ATORY [facility] Calcium 9.0 8.4 - 10.2 mg/dL 03/01/2024 1:51 PM EDT [facility] Blood Venous blood specimen / Unknown Venipuncture / Unknown 03/01/2024 1:16 PM EDT 03/01/2024 1:23 PM EDT José Luis Paul IV, PA-C LAB BLOOD ORD ERABLES [facility] [address] [place] [address] documented in this encounter Visit Diagnoses Diagnosis Metastasis to brain (HCC)- Primary 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 Cerebral edema (HCC) Cerebral edema Other specified disorders of brain Screening mammogram for breast cancer documented in this encounter Administered Medications Inactive Administered Medications - up to 3 most recent administrations Medication Order MAR Action Action Date Dose Rate Site Acetaminophen (Tylenol) tab 650 mg 650 mg, Oral, Q6H PRN Pain, Mild, Fever >38C(100.5F), Starting on Fri03/01/24 at 1207, Until Ruby 03/04/24 at 1904, Maximum of 4 grams (4000 mg) per day., Admission atorvaSTATin (Lipitor) tab 20 mg 20 mg, Oral, DAILY(1900), First dose on Fri03/01/24 at 1900, Until Discontinued Given 03/03/2024 6:03 PM EDT 20 mg Given 03/02/2024 6:20 PM EDT 20 mg Given 03/01/2024 8:45 PM EDT 20 mg carBAMazepine ER (Carbatrol) cap 400 mg 400 mg, Oral, Q12H, First dose on Fri03/01/24 at 2100, Until Discontinued Given 03/04/2024 8:42 AM EDT 400 mg Given 03/03/2024 8:16 PM EDT 400 mg Given 03/03/2024 5:32 AM EDT 400 mg Cephalexin (Keflex) cap 500 mg 500 mg, Oral, BID (.AM/PM), First dose on Fri03/01/24 at 2100, Last dose on Fri03/06/24 at 0900, For 5 days Given 03/04/2024 8:41 AM EDT 500 mg Given 03/03/2024 8:16 PM EDT 500 mg Given 03/02/2024 9:40 PM EDT 500 mg Chlorhexidine Gluconate (Scrub-Stat) 2% external solution External, Daily(AM), First dose on Fri03/01/24 at 1300, Last dose on Fri03/05/24 at 0900, For 5 days, Chlorhexidine bath in conjunction with administration of mupirocin calcium (BACTROBAN for NASAL) 2 % ointment for 5 days. Chlorhexidine bath also recommended that night before and morning of surgery before transporting to pre-operative area., Admission Given 03/04/2024 8: 42 AM EDT 1 Pad Given 03/02/2024 12:00 PM EDT Chlorhexidine Gluconate (Scrub-Stat) 2% external solution External, BID (.AM/PM), First dose on Fri03/05/24 at 2100, Last dose on Fri03/06/24 at 0900, For 2 doses, Chlorhexidine bath recommended the night before and morning of surgery. Complete bath prior to transporting to pre-operative area., Admission dexAMETHasone (Decadron) tab 2 mg 2 mg, Oral, BID (.AM/PM), First dose on Fri03/09/24 at 2100, Last dose on Fri03/11/24 at 0900, For 2 days dexAMETHasone (Decadron) tab 2 mg 2 mg, Oral, Daily(AM), First dose on Fri03/12/24 at 0900, Last dose on Fri03/13/24 at 0900, For 2 days dexAMETHasone (Decadron) tab 4 mg 4 mg, Oral, BID (.AM/PM), First dose on Fri03/01/24 at 2100, Until Discontinued Given 03/02/2024 9:40 PM EDT 4 mg Given 03/02/2024 8:41 AM EDT 4 mg Given 03/01/2024 8:45 PM EDT 4 mg dexAMETHasone (Decadron) tab 4 mg 4 mg, Oral, QID(AM/NOON/PM/HS), First dose on Fri03/03/24 at 1215, Last dose on Fri03/06/24 at 0600, For 3 days Given 03/04/2024 12:25 PM EDT 4 mg Given 03/04/2024 5:52 AM EDT 4 mg Given 03/03/2024 9:22 PM EDT 4 mg dexAMETHasone (Decadron) tab 4 mg 4 mg, Oral, TID(AM/NOON/HS), First dose on Fri03/06/24 at 1200, Last dose on Fri03/09/24 at 0600, For 3 days Famotidine (Pepcid) tab 20 mg 20 mg, Oral, Daily(AM), First dose on Fri03/02/24 at 0900, Until Discontinued Given 03/04/2024 8:41 AM EDT 20 mg Given 03/02/2024 8:41 AM EDT 20 mg gadobutrol (Gadavist) inj 6.1 mL 6.1 mL (rounded from 6.11 mL = 0.1 mL/kg 61.1 kg), Intravenous, ONCE, On Fri03/04/24 at 0400, For 1 dose, Radiology Medication Routing (Non-IR) Given 03/04/2024 4:00 AM EDT 6 mL hEParin inj 5,000 Units 5,000 Units, Subcutaneous, Q8H, First dose on Fri03/04/24 at 2200, Until Discontinued Iopamidol (Isovue 370) inj 80 mL 80 mL, Intravenous, ONCE, On Fri03/01/24 at 1815, For 1 dose, Radiology Medication Routing (Non-IR) Given 03/01/2024 6:15 PM EDT 80 mL labetalol (Trandate) inj 10 mg 10 mg, Intravenous, Q15 MIN PRN Hypertension, SBP > 140, Starting on Fri03/03/24 at 1125, Until Fri03/04/24 at 1904, Hold for heart rate < 57 levothyroxine (Levoxyl) tab 175 mcg 175 mcg, Oral, [id number], First dose on Fri03/02/24 at 0630, Until Discontinued Given 03/04/2024 5:52 AM EDT 175 mcg Given 03/03/2024 5:32 AM EDT 175 mcg Given 03/02/2024 6:24 AM EDT 175 mcg losartan (Cozaar) tab 50 mg 50 mg, Oral, Daily(AM), First dose on Fri03/02/24 at 0900, Until Discontinued Given 03/04/2024 8:41 AM EDT 50 mg Given 03/02/2024 8:41 AM EDT 50 mg mupirocin calcium (BACTROBAN for NASAL) 2 % ointment 0.5 g 0.5 g, Each Nostril, BID (.AM/PM), First dose on Fri03/01/24 at 1300, Last dose on Fri03/05/24 at 2100, For 5 days, Apply a pea sized amount (0.5 g) to a clean cotton swab to each nostril. Twice a day for five days in conjunction with administration of the 5 day chlorhexidine bath., Admission Given 03/04/2024 8:41 AM EDT 0.5 g Given 03/03/2024 8:16 PM EDT 0.5 g Given 03/02/2024 9:41 PM EDT 0.5 g PARoxetine (pAXil) tab 40 mg 40 mg, Oral, Daily(AM), First dose on Fri03/02/24 at 0900, Until Discontinued Given 03/04/2024 8:41 AM EDT 40 mg Given 03/02/2024 8:41 AM EDT 40 mg traZODone (Desyrel) tab 150 mg 150 mg, Oral, HS, First dose on Fri03/01/24 at 2200, Until Discontinued Given 03/03/2024 9:22 PM EDT 150 mg Given 03/02/2024 9:40 PM EDT 150 mg Given 03/01/2024 8:45 PM EDT 150 mg documented in this encounter Active and Recently Administered Medications Times are shown in EDT. Scheduled Medication Order 03/02/2024 03/03/2024 03/04/2024 atorvaSTATin (Lipitor) tab 20 mg 20 mg, Oral, DAILY(1900), First dose on Fri03/01/24 at 1900, Until Discontinued 1820 (Given - Provider: Gianna Klein RN) 1802 (Given - Provider: Jo Ann Britt RN) carBAMazepine ER (Carbatrol) cap 400 mg 400 mg, Oral, Q12H, First dose on Fri03/01/24 at 2100, Until Discontinued 08 (Given - Provider: Gianna Klein RN)2139 (Given - Provider: Laura David RN) 0532 (Given - Provider: Elizabeth Zurita RN - Comment: Pt going for sx this am)2015 (Given - Provider: Elizabeth Zurita RN) 0842 (Given - Provider: Jo Ann Britt RN) ceFAZolin in dextrose (Ancef) ivpb 2 g (COMPLETED) 2 g, IV Piggyback, ONCALL, 1 dose, Starting on Fri03/03/24 at 0000, Until Fri03/03/24 at 0845, For surgery 0845 (Given - Provider: Negar Whitehead CRNA) Cephalexin (Keflex) cap 500 mg 500 mg, Oral, BID (.AM/PM), First dose on Fri03/01/24 at 2100, Last dose on Fri03/06/24 at 0900, For 5 days 0841 (Given - Provider: Gianna Klein, FARIHA)2139 (Given - Provider: Laura David RN) 0900 (OR/Procedure - Provider: Jessica Arango, FARIHA)2015 (Given - Provider: Elizabeth Zurita RN) 0841 (Given - Provider: Jo Ann Britt RN) Chlorhexidine Gluconate (Scrub-Stat) 2% external solution External, Daily(AM), First dose on Fri03/01/24 at 1300, Last dose on Fri03/05/24 at 0900, For 5 days, Chlorhexidine bath in conjunction with administration of mupirocin calcium (BACTROBAN for NASAL) 2 % ointment for 5 days. Chlorhexidine bath also recommended that night before and morning of surgery before transporting to pre-operative area., Admission 1200 (Given - Provider: Gianna lKein RN - Comment: CHG wipes used. Not Scrub Stat available) 0900 (OR/Procedure - Provider: Jo Ann Britt, FARIHA) 0842 (Given - Provider: Jo Ann Britt RN) Chlorhexidine Gluconate (Scrub-Stat) 2% external solution External, BID (.AM/PM), First dose on Fri03/05/24 at 2100, Last dose on Fri03/06/24 at 0900, For 2 doses, Chlorhexidine bath recommended the night before and morning of surgery. Complete bath prior to transporting to pre-operative area., Admission dexAMETHasone (Decadron) tab 2 mg(Linked Group 1) 2 mg, Oral, BID (.AM/PM), First dose on Fri03/09/24 at 2100, Last dose on Fri03/11/24 at 0900, For 2 days dexAMETHasone (Decadron) tab 2 mg(Linked Group 1) 2 mg, Oral, Daily(AM), First dose on Fri03/12/24 at 0900, Last dose on Fri03/13/24 at 0900, For 2 days dexAMETHasone (Decadron) tab 4 mg (CANCELED) 4 mg, Oral, BID (.AM/PM), First dose on Fri03/01/24 at 2100, Until Discontinued 0841 (Given - Provider: Gianna Klein RN)2140 (Given - Provider: Laura David RN) 0900 (Not Given - Provider: Negar Whitehead CRNA - Reason: Other- Please add reason in Comments - Comment: 4mg IV dose given in OR) dexAMETHasone (Decadron) tab 4 mg(Linked Group 1) 4 mg, Oral, QID(AM/NOON/PM/HS), First dose on Fri03/03/24 at 1215, Last dose on Fri03/06/24 at 0600, For 3 days 1348 (Given - Provider: Jo Ann Britt RN)1803 (Given - Provider: Jo Ann Britt RN)2122 (Given - Provider: Elizabeth Zurita, FARIHA) 0552 (Given - Provider: Elizabeth Zurita, FARIHA)1225 (Given - Provider: Irais Zarco, FARIHA) dexAMETHasone (Decadron) tab 4 mg(Linked Group 1) 4 mg, Oral, TID(AM/NOON/HS), First dose on Fri03/06/24 at 1200, Last dose on Fri03/09/24 at 0600, For 3 days Famotidine (Pepcid) tab 20 mg 20 mg, Oral, Daily(AM), First dose on Fri03/02/24 at 0900, Until Discontinued 0841 (Given - Provider: Gianna Klein RN) 0900 (OR/Procedure - Provider: Jessica Arango, FARIHA) 0841 (Given - Provider: Jo Ann Britt RN) gadobutrol (Gadavist) inj 6.1 mL (COMPLETED) 6.1 mL (rounded from 6.11 mL = 0.1 mL/kg 61.1 kg), Intravenous, ONCE, On Ruby 03/04/24 at 0400, For 1 dose, Radiology Medication Routing (Non-IR) 0400 (Given - Provider: Sheldon Lyons, RT (R)) hEParin inj 5,000 Units 5,000 Units, Subcutaneous, Q8H, First dose on Fri03/04/24 at 2200, Until Discontinued levothyroxine (Levoxyl) tab 175 mcg 175 mcg, Oral, [id number], First dose on Fri03/02/24 at 0630, Until Discontinued 0624 (Given - Provider: Laura David RN) 0532 (Given - Provider: Elizabeth Zurita, FARIHA) 0552 (Given - Provider: Elizabeth Zurita, FARIHA) losartan (Cozaar) tab 50 mg 50 mg, Oral, Daily(AM), First dose on Fri03/02/24 at 0900, Until Discontinued 08 (Given - Provider: Gianna Klein RN) 899 (OR/Procedure - Provider: Jessica Arango, FARIHA) 0841 (Given - Provider: Jo Ann Britt RN) mupirocin calcium (BACTROBAN for NASAL) 2 % ointment 0.5 g 0.5 g, Each Nostril, BID (.AM/PM), First dose on Fri03/01/24 at 1300, Last dose on Fri03/05/24 at 2100, For 5 days, Apply a pea sized amount (0.5 g) to a clean cotton swab to each nostril. Twice a day for five days in conjunction with administration of the 5 day chlorhexidine bath., Admission 0842 (Given - Provider: Gianna Klein RN)2140 (Given - Provider: Laura David RN) 899 (OR/Procedure - Provider: Jo Ann Britt RN)2015 (Given - Provider: Elizabeth Zurita, FARIHA) 0841 (Given - Provider: Jo Ann Britt RN) PARoxetine (pAXil) tab 40 mg 40 mg, Oral, Daily(AM), First dose on Fri03/02/24 at 0900, Until Discontinued 08 (Given - Provider: Gianna Klein RN) 899 (OR/Procedure - Provider: Jessica Arango RN) 0841 (Given - Provider: Jo Ann Britt RN) traZODone (Desyrel) tab 150 mg 150 mg, Oral, HS, First dose on Fri03/01/24 at 2200, Until Discontinued 2139 (Given - Provider: Laura David, RN) 2121 (Given - Provider: Elizabeth Zurita RN) PRN Medication Order 03/02/2024 03/03/2024 03/04/2024 Acetaminophen (Tylenol) tab 650 mg 650 mg, Oral, Q6H PRN Pain, Mild, Fever >38C(100.5F), Starting on Fri03/01/24 at 1207, Until Ruby 03/04/24 at 1904, Maximum of 4 grams (4000 mg) per day., Admission bacitracin zinc ointment (CANCELED) ONCE PRN INTRA PROCEDURE, Starting on Fri03/03/24 at 0817, Until Fri03/03/24 at 1118, Intra-Op 0817 (Given - Provider: Nathan Hand III, MD - Comment: pins and incision) bupivacaine (PF) (Sensorcaine) 0.75 % inj (CANCELED) ONCE PRN INTRA PROCEDURE, Starting on Fri03/03/24 at 1105, Until Fri03/03/24 at 1118, Intra-Op 1105 (Given - Provider: Nathan Hand III, MD) hemostatic matrix (Surgiflo) syringe (CANCELED) ONCE PRN INTRA PROCEDURE, Starting on Fri03/03/24 at 0817, Until Fri03/03/24 at 1118, Intra-Op 0817 (Given - Provider: Nathan Hand III, MD - Comment: PRN) labetalol (Trandate) inj 10 mg 10 mg, Intravenous, Q15 MIN PRN Hypertension, SBP > 140, Starting on Fri03/03/24 at 1125, Until Ruby 03/04/24 at 1904, Hold for heart rate < 57 lidocaine-epinephrine 1 %-1:[id number] inj (CANCELED) ONCE PRN INTRA PROCEDURE, Starting on Fri03/03/24 at 0926, Until Fri03/03/24 at 1118, Intra-Op 0926 (Given - Provider: Nathan Hand III, MD) sodium chloride IR 0.9 % irrigation (CANCELED) ONCE PRN INTRA PROCEDURE, Starting on Fri03/03/24 at 0817, Until Fri03/03/24 at 1118, Intra-Op 0817 (Given - Provider: Nathan Hand III, MD - Comment: PRN)0947 (Given - Provider: Joni Hand III, MD - Comment: PRN) surgicel 4x8 hemostat (CANCELED) ONCE PRN INTRA PROCEDURE, Starting on Fri03/03/24 at 0818, Until Fri03/03/24 at 1118, Intra-Op 0818 (Given - Provider: Nathan Hand III, MD - Comment: PRN) Thrombin (Thrombin-Jmi) topical soln (CANCELED) ONCE PRN INTRA PROCEDURE, Starting on Fri03/03/24 at 0818, Until Fri03/03/24 at 1118, Intra-Op 0818 (Given - Provider: Nathan Hand III, MD - Comment: PRN over gelfoam) vancomycin 1,000 mg in sodium chloride IR 0.9 % 1,000 mL irrigation (CANCELED) Intra-Op 0818 (Given - Provider: Nathan Hand III, MD - Comment: PRN after bone flap applied) Linked Groups Order Group 1: dexAMETHasone (Decadron) tab 4 mgJump to med 4 mg, Oral, QID(AM/NOON/PM/HS), First dose on Fri03/03/24 at 1215, Last dose on Fri03/06/24 at 0600, For 3 days Followed by dexAMETHasone (Decadron) tab 4 mgJump to med 4 mg, Oral, TID(AM/NOON/HS), First dose on Fri03/06/24 at 1200, Last dose on Fri03/09/24 at 0600, For 3 days Followed by dexAMETHasone (Decadron) tab 2 mgJump to med 2 mg, Oral, BID (.AM/PM), First dose on Fri03/09/24 at 2100, Last dose on Fri03/11/24 at 0900, For 2 days Followed by dexAMETHasone (Decadron) tab 2 mgJump to med 2 mg, Oral, Daily(AM), First dose on Fri03/12/24 at 0900, Last dose on Fri03/13/24 at 0900, For 2 days documented in this encounter Advance Directives * [...] and were consensually agreed upon. Care Teams Leather Production Machine Operator Relationship Specialty Start Date End Date Baldev Solorio MD [address] [place] [facility] [place] [address] PCP - General Family Medicine 02/20/21 documented as of this encounter
--- OUTSIDE RECORDS SUMMARY | 2024-04-11 11:03 | External Medical Summary | Summary of Care ---
Author Name Unknown Organization [facility] Address [address] [place] [address] Phone [phone] Care Team Providers Care Taxonomy Teacher Name Role Phone Martin Solorio MD Primary Care Provider [phone] Reason for Visit * Reason Onset Date Comments Appointment 03/05/2024 Encounter Details Date Type Department Care Team (Late st Contact Info) Description 03/05/2024 Telephone [facility] [address] [place] [address] Services, Scheduling [address] [place] [address] Appointment Allergies Active Allergy Reactions Criticality Noted [...] region 09/30/2023 Coronary artery disease invo lving prairie band coronary artery of prairie band heart without angina pectoris 09/30/2023 Pulmonary nodules [...] No 09/16/2023 Does the household have a inscription house health centerlar source of income? (Household - for ages [...] Telephone Encounter - June Nair OSA - 03/05/2024 12:17 PM EDT [facility] Engagement Attempt Engagement: Engagement Attempt 1: Unable to contact Engagement Attempt 2: No data was found Home Information: No data was found Advance Care Planning (ACP): No data was found Has Living Will or Advance Directive: No data was found Anticipated Sub-Program: Focused Care Management (3-9 months) Confirmation of Sub-Program Type (by care steam hammer operator): No data was found Handoff Information: Current care team notified via: No data was found Current telemonitoring equipment: No data was found documented in this encounter Plan of Treatment Upcoming Encounters Date Type Department Care Team (Late st Contact Info) Description 03/09/2024 9:45 AM EDT Pharmacy Pharmacy Hematology Oncology [facility], [address] [address] [facility] Hem/Onc [facility] [place] [address] 03/10/2024 3:00 PM EDT Office Visit [address] [phone] Martin Solorio MD [address] [place], [place] [phone] 03/15/2024 10:15 AM EDT Office Visit Neurosurgery, [place] [address] [place] [address] Clinic, Brain Tumor Multidisciplinary [facility] [place] [address] 05/06/2024 2:45 PM EDT Office Visit Hematology/Oncology Archana More[facility] [place] [address] [place], [place] [phone] Benja Watkins MD [address] [place] [address] 08/02/2024 8:20 AM EST Office Visit [facility] [address] [place] [phone] Martin Solorio MD [address] [place] [facility] [place] [address] 10/05/2024 12:30 PM EDT Telemedicine Care at Home [address] [facility] [place] [address] Kori Dumont PA-C [address] [place] [facility] [place] [address] 02/14/2025 8:00 AM EDT Imaging Radiology [facility] [facility], [address] [place] [address] Scheduled Procedures Name Priority Associated Diagnoses Date/Ti [...] 09/10/2023 DISCUSS TOBACCO CESSATION (REFER TO SMARTSET #[id number]) 01/28/2025 01/29/2024 TSH 01/28/2025 01/29/2024, 07/21, 07/25/2023, [...] this encounter Medical Devices Implanted Type Area Engineering Job Titles Device Identifier Shelf Expiration Date Model / Serial / Lot Cover [place] Hole 24mm 421.528 - [id number] Implanted:Qty: 1 on 08/20/2021 by Join Hand III, MD at [place] [facility] Right: Head [employer]ES MAXILL[employer]ACIAL 421.528 / / Plate Y Ti Lo Db 6h 21 421.517 - [id number] Implanted:Qty: 1 on 08/20/2021 by Joni Hand III, MD at OR [facility] Right: Head [employer] 421.517 / / Screw Ti Lo Pro Sd 4mm 400.834 - [id number] Implanted:Qty: 10 on 08/20/2021 by Joni Hand III, MD at OR [facility] Right: Head [employer] 400.834 / / Cement Hydroset Injectable 5cc - [id number] Implanted:Qty: 1 on 03/03/2024 by Joni Hand III, MD at OR [facility] Left: Head SUZANNA [id number] 09/19/2025 [id number] / / [id number] Cover Bur Hol Ti Lo 17 421.527 - [id number] Implanted:Qty: 1 on 03/03/2024 by Joni Hand III, MD at OR [facility] Left: Head [employer] 421.527 / / Plate Ti Lo Pro Str 2h 421.502 - [id number] Implanted:Qty: 2 on 03/03/2024 by Joni Hand III, MD at OR [facility] Left: Head [employer] 421.502 / / Screw 4mm Ti Low Pro Sdrill - [id number] Implanted:Qty: 7 on 03/03/2024 by Joni Hand III, MD at OR [facility] Left: Head [employer] 400.834E / / [...] and were consensually agreed upon. Care Teams Taxonomy Teacher Relationship Specialty Start Date End Date Martin Solorio MD [address] [place] [phone] PCP - General Family Medicine 02/20/21 documented as of this encounter
--- OUTSIDE RECORDS SUMMARY | 2024-04-11 11:04 | External Medical Summary | Summary of Care ---
Author Name Unknown Organization [facility] Address [address] [place] [address] Phone [phone] Care Team Providers Care Plastic Straightening Roll Operator Name Role Phone Martin Solorio MD Primary Care Provider [phone] Encounter Details Date Type Department Care Team (Late st Contact Info) Description 03/02/2024 Telephone [facility] [address] [place] [address] Martin Solorio MD [address] [place] [address] Allergies Active Allergy Reactions Criticality Noted Date Comments Erythromycin 08/15/1997 seizures documented as of this encounter (statuses as of 03/02/2024) Medications Medication Sig Dispensed Refills Start Date End Date Status MULTIVITAMINS PO TABS Take 1 Tablet by mouth every morning. 0 8 Suspended traZODone HCl 100 MG Oral Tablet (Desyrel)Indicatio [...] 90 Tablet 3 4 Suspended Additional Information Dabrafenib Mesylate 75 MG Oral Capsule (Tafinlar) Take 1 Capsule by mouth in the morning and 1 Capsule before bedtime. 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 90 Tablet 5 4 Suspended Additional Information Triamcinolone Acetonide 0.1 % External Cream (Aristocort) Apply topically to affected area 2 times a day. To affected area. 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 (at least 30 min prior to breakfast or other meds) Suspended Cephalexin 250 MG Oral Capsule (Keflex) Take 1 Capsule by mouth in the morning and 1 Capsule at noon and 1 Capsule before bedtime. 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 Cerebral atrophy 09/30/2023 Left sided lacunar infarction 09/30/2023 Spinal stenosis of cervical region 09/30/2023 Coronary artery disease invo lving [place] coronary artery of [place] heart without angina pectoris 09/30/2023 Pulmonary nodules [...] as of this encounter (statuses as of 03/02/2024) Resolved Problems Problem Noted Date Diagnosed Date [...] as of this encounter (statuses as of 03/02/2024) Immunizations Name Administration Dates Next Due COVID-19, [...] encounter Miscellaneous Notes * Telephone Encounter - Chely Garcia OSA - 03/02/2024 1:37 PM EDT 03/02/24 Rec fax from [place] requesting a Post-op appt for pt. Appt was made for 03/10/24 @ 3:00 pm with PCP. documented in this encounter Plan of Treatment Upcoming Encounters Date Type Department Care Team (Latest Contact Info) Description 03/03/2024 8:00 AM EDT - 03/03/2024 12:47 PM EDT Surgery [facility], OPERATING ROOM [facility] [address] [place] [address] Joni Hand III, MD [address] [place] [address] CRANIOTOMY BONE FLAP EXCISION BRAIN TUMOR SUPRATENTORIAL 03/09/2024 9:45 AM EDT Pharmacy Pharmacy Hematology Oncology [facility] [place] [address] [place] [address] [facility] [place] Hem/Onc [address] [place] [address] 03/10/2024 3:00 PM EDT Office Visit [facility] [address] [place] [address] Martin Solorio MD [address] [place] [address] 03/15/2024 10:15 AM EDT Office Visit Neurosurgery, [place] [address] [place] [address] Clinic, Brain Tumor Multidisciplinar y [address] [place] [address] 05/06/2024 2:45 PM EDT Office Visit Hematology/Oncology [facility] [address] [address] Benja Watkins MD [address] [place] [address] 08/02/2024 8:20 AM EST Office Visit [facility] [address] [place] [address] Martin Solorio MD [address] [place] [address] 10/05/2024 12:30 PM EDT Telemedicine Care at Home [address] [place] [address] Kori Dumont PA-C [address], [place] [id number] 02/14/2025 8:00 AM EDT Imaging Radiology [facility] 1st [facility] [address] [facility] [place] [address] Scheduled Procedures Name Priority Associated Diagnoses Date/Ti me CRANIOTOMY BONE FLAP EXCISIO N BRAIN TUMOR SUPRATENTORIAL Metastasis to brain (HCC) 03/03/2024 8:00 AM EDT MICROSURGICAL SURGERY REQUIRING MICROSCOPE LISTED SEPARATELY Metastasis to brain (HCC) 03/03/2024 8:00 AM EDT COLONOSCOPY FLEXIBLE PROXIMA L DIAGNOSTIC Recall Family [...] 03/01/2025 03/01/2024, 01/18, 09/03/2023, Additional history exists Colonoscopy 06/05/2026 06/05/2021, 05/21, [...] this encounter Medical Devices Implanted Type Area Science Liaison Device Identifier Shelf Expiration Date Model / Serial / Lot Cover [place] Hole 24mm 421.528 - [id number] Implanted:Qty: 1 on 08/20/2021 by Joni Hand III, MD [place] [facility] Right: Head SYNTHES MAXILLOFACIAL 421.528 / / Plate Y Ti Lo Db 6h 21 421.517 - [id number] Implanted:Qty: 1 on 08/20/2021 by Joni Hand III, MD at [place] [facility] Right: Head SYNTHES MAXILLOFACIAL 421.517 / / Screw Ti Lo Pro Sd 4mm 400.834 - [id number] Implanted:Qty: 10 on 08/20/2021 by Joni Hand III, MD at [place] [facility] Right: Head SYNTHES MAXILLOFACIAL 400.834 / / documented as of this encounter Advance Directives * Full Code (Latest Code Status on File) Date Activated Date Inactivated Comments 03/01/2024 12:22 PM This order re flects the patients [...] and were consensually agreed upon. Care Teams Plastic Straightening Roll Operator Relationship Specialty Start Date End Date Martin Solorio MD [address] [place] [address] PCP - General Family Medicine 02/20/21 documented as of this encounter
--- OUTSIDE RECORDS SUMMARY | 2024-04-11 11:04 | External Medical Summary | Summary of Care ---
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 Cerebral atrophy 09/30/2023 Left sided lacunar infarction 09/30/2023 Spinal stenosis of cervical region 09/30/2023 Coronary artery disease invo lving [place] coronary artery of [place] heart without angina pectoris 09/30/2023 Pulmonary nodules [...] No 03/01/2024 Are you (or your family) wlat eless or worried that you might be [...] - 03/03/2024 12:47 PM EDT Surgery [place] [facility], [facility] [address] [place] [address] Joni Hand III, MD [address] [place], [place] [id number] CRANIOTOMY BONE FLAP EXCISION BRAIN TUMOR SUPRATENTORIAL 03/09/2024 9:45 AM EDT Pharmacy Pharmacy Hematology Oncology [facility] [place] [address] [place] [address] [facility] [place] Hem/Onc [address] [place] [address] 03/15/2024 10:15 AM EDT Office Visit Neurosurgery, [place] [address] [place], [place] [id number] Clinic, Brain Tumor Multidisciplinar y [address] [place] [address] 05/06/2024 2:45 PM EDT Office Visit Hematology/Oncology [facility] [address] [facility] [place] [phone] Benja Watkins MD [address] [facility] [place] [address] 08/02/2024 8:20 AM EST Office Visit [facility] [address] [place] [address] Martin Solorio MD [address] [place], [place] [address] 10/05/2024 12:30 PM EDT Telemedicine Care at Home [address] [place] [address] Kori Dumont PA-C [address] [place] [address] 02/14/2025 8:00 AM EDT Imaging Radiology [facility] 1st [facility] [address] [facility] [place] [address] Scheduled Procedures Name Priority Associated Diagnoses Date/Ti [...] 09/10/2023 DISCUSS TOBACCO CESSATION (REFER TO SMARTSET #7068) 01/28/2025 01/29/2024 TSH 01/28/2025 01/29/2024, 07/21, 07/25/2023, [...] this encounter Medical Devices Implanted Type Area Pointer Machine Operator Device Identifier Shelf Expiration Date Model / Serial / Lot Cover [place] Hole 24mm 421.528 - [id number] Implanted:Qty: 1 on 08/20/2021 by Joni Hand III, MD at [place] [facility] Right: Head SYNTHES MAXILLOFACIAL 421.528 / / Plate Y Ti Lo Db 6h 21 421.517 - [id number] Implanted:Qty: 1 on 08/20/2021 by Joni Hand III, MD at [place] [facility] Right: Head SYNTHES MAXILLOFACIAL 421.517 / / Screw Ti Lo Pro Sd 4mm 400.834 - [id number] Implanted:Qty: 10 on 08/20/2021 by Joni Hand III, MD at OR [facility] Right: Head SYNTHES MAXILLOFACIAL 400.834 / / documented as of this encounter Procedures Procedure Name Priority Date/Time Associated Diagnosis Comments RADIOLOGY EXAM - CT (IMAGES ONLY, NO REPORT) Routine 02/26/2024 11:15 PM EDT documented in this encounter Results * RADIOLOGY EXAM - CT (IMAGES ONLY, NO REPORT) (02/26/2024 11:15 PM EDT) 02/26/2024 10:5 9 PM EDT Narrative Scheduling, Silent - 03/01/2024 12:17 PM EDT This is an imaging study not interpreted or resulted by a [facility] or [facility] contracted radiologist. Joni Hand III, MD RAD CT documented in this encounter Advance Directives * [...] and were consensually agreed upon. Care Teams Skiagrapher Relationship Specialty Start Date End Date Martin Solorio MD [address] [facility] [place] [address] PCP - General Family Medicine 02/20/21 documented as of this encounter
--- OUTSIDE RECORDS SUMMARY | 2024-04-11 11:04 | External Medical Summary | Summary of Care ---
Author Name Unknown Organization [facility] Address [address] [place] [address] Phone [phone] Care Team Providers Care Systems Software Specialist Name Role Phone Martin Solorio MD Primary Care Provider [phone] Encounter Details Date Type Department Care Team (Latest Contact Info) Description 02/27/2024 12:15 PM EDT - 02/27/2024 11:59 PM EDT Hospital Encounter Radiology Film File [address] [place] [address] Discharge Disposition: Home - Self [...] region 09/30/2023 Coronary artery disease invo lving [place] coronary artery of [place] heart without angina pectoris 09/30/2023 Pulmonary [...] - 03/03/2024 12:47 PM EDT Surgery [place] [facility] [address] [place] [address] Joni Hand III, MD [address], [place] [id number] CRANIOTOMY BONE FLAP EXCISION BRAIN TUMOR SUPRATENTORIAL 03/09/2024 9:45 AM EDT Pharmacy Pharmacy Hematology Oncology [facility] [place] [address] [place] [address] [facility] Hem/Onc [address] [place] [address] 03/15/2024 10:15 AM EDT Office Visit Neurosurgery, [place] [address], [place] [id number] Clinic, Brain Tumor Multidisciplinar y [address] [place] [address] 05/06/2024 2:45 PM EDT Office Visit Hematology/Oncology [facility] 200 [facility] [place] [phone] Benja Watkins MD [address] [facility] [place] [address] 08/02/2024 8:20 AM EST Office Visit [facility] [address] [place] [phone] Martin Solorio MD [address] [place], [place] [address] 10/05/2024 12:30 PM EDT Telemedicine Care at Home [address] [place] [address] Kori Dumont PA-C [address] [place] [address] 02/14/2025 8:00 AM EDT Imaging Radiology [facility] 1st [facility] [address] [facility] [place] [address] Scheduled Procedures Name Priority Associated Diagnoses Date/Ti [...] 09/10/2023 DISCUSS TOBACCO CESSATION (REFER TO SMARTSET #1308) 01/28/2025 01/29/2024 TSH 01/28/2025 01/29/2024, 07/21, 07/25/2023, [...] this encounter Medical Devices Implanted Type Area Kitchen Lead Device Identifier Shelf Expiration Date Model / Serial / Lot Cover [place] Hole 24mm 421.528 - [id number] Implanted:Qty: 1 on 08/20/2021 by Joni Hand III, MD at [place] [facility] Right: Head SYNTHES MAXILLOFACIAL 421.528 / / Plate Y Ti Lo Db 6h 21 421.517 - [id number] Implanted:Qty: 1 on 08/20/2021 by Joni Hand III, MD at [place] [facility] Right: Head SYNTHES MAXILLOFACIAL 421.517 / / Screw Ti Lo Pro Sd 4mm 400.834 - [id number] Implanted:Qty: 10 on 08/20/2021 by Joni Hand III, MD at [place] [facility] Right: Head SYNTHES MAXILLOFACIAL 400.834 / / documented as of this encounter Procedures Procedure Name Priority Date/Time Associated Diagnosis Comments RADIOLOGY EXAM - MRI (IMAGES ONLY, NO REPORT) Routine 02/27/2024 12:15 PM EDT documented in this encounter Results * RADIOLOGY EXAM - MRI (IMAGES ONLY, NO REPORT) (02/27/2024 12:15 PM EDT) 02/27/2024 12:1 1 PM EDT Narrative Scheduling, Silent - 03/01/2024 12:19 PM EDT This is an imaging study not interpreted or resulted by a [facility] or [facility] contracted radiologist. Joni Hand III, MD RAD MRI-MRA documented in this encounter Advance Directives * [...] and were consensually agreed upon. Care Teams Systems Software Specialist Relationship Specialty Start Date End Date Martin Solorio MD [address] [facility] [place] [place] [address] PCP - General Family Medicine 02/20/21 documented as of this encounter
--- OUTSIDE RECORDS SUMMARY | 2024-04-11 11:04 | External Medical Summary | Summary of Care ---
Author Name Unknown Organization [facility] Address [address] [place] [address] Phone [phone] Care Team Providers Care Director Audience Marketing Name Role Phone Martin Solorio MD Primary Care Provider [phone] Encounter Details Date Type Department Care Team (Latest Contact Info) Description 02/26/2024 10:55 PM EDT - 02/26/2024 10:59 PM EDT Hospital Encounter Radiology Film File [address] [place] [address] Discharge Disposition: Home - Self [...] region 09/30/2023 Coronary artery disease invo lving [place] coronary artery of [place] heart without angina pectoris 09/30/2023 Pulmonary nodules [...] - 03/03/2024 12:47 PM EDT Surgery OR [facility], [facility]PER[facility] [address] [place] [address] Joni Hand III, MD [address] [place], [place] [address] CRANIOTOMY BONE FLAP EXCISION BRAIN TUMOR SUPRATENTORIAL 03/09/2024 9:45 AM EDT Pharmacy Pharmacy Hematology Oncology [facility] [place] [address] [place] [address] [facility] [place] [facility] Hem/Onc [address] [place] [address] 03/15/2024 10:15 AM EDT Office Visit Neurosurgery, [place] [address] [place], [place] [address] Clinic, Brain Tumor Multidisciplinar y [address] [place] [address] 05/06/2024 2:45 PM EDT Office Visit Hematology/Oncology [facility] 200 [place] [phone] Benja Watkins MD [address] [facility] [place] [address] 08/02/2024 8:20 AM EST Office Visit [facility] [address] [place] [phone] Martin Solorio MD [address] [place], [place] [address] 10/05/2024 12:30 PM EDT Telemedicine Care at Home [address] [place] [address] Kori Dumont PA-C [address] [place] [address] 02/14/2025 8:00 AM EDT Imaging Radiology [facility] 1st [facility] [address] [facility] [place] [address] Scheduled Procedures Name Priority Associated Diagnoses Date/Ti [...] 09/10/2023 DISCUSS TOBACCO CESSATION (REFER TO SMARTSET #8675) 01/28/2025 01/29/2024 TSH 01/28/2025 01/29/2024, 07/21, 07/25/2023, [...] this encounter Medical Devices Implanted Type Area Leisure Travel Agent Device Identifier Shelf Expiration Date Model / Serial / Lot Cover [place] Hole 24mm 421.528 - [id number] Implanted:Qty: 1 on 08/20/2021 by Joni Hand III, MD at [place] [facility] Right: Head SYNTHES MAXILLOFACIAL 421.528 / / Plate Y Ti Lo Db 6h 21 421.517 - [id number] Implanted:Qty: 1 on 08/20/2021 by Joni Hand III, MD at [place] [facility] Right: Head SYNTHES MAXILLOFACIAL 421.517 / / Screw Ti Lo Pro Sd 4mm 400.834 - [id number] Implanted:Qty: 10 on 08/20/2021 by Joni Hand III, MD at [place] [facility] [facility] Right: Head SYNTHES MAXILLOFACIAL 400.834 / / documented as of this encounter Procedures Procedure Name Priority Date/Time Associated Diagnosis Comments RADIOLOGY EXAM - GENERAL RAD (IMAGES ONLY,NO REPORT) Routine 02/26/2024 10:55 PM EDT documented in this encounter Results * RADIOLOGY EXAM - GENERAL RAD (IMAGES ONLY,NO REPORT) (02/26/2024 10:55 PM EDT) 02/26/2024 10:5 5 PM EDT Narrative Scheduling, Silent - 03/01/2024 10:59 AM EDT This is an imaging study not interpreted or resulted by a [facility] or [facility] contracted radiologist. Joni Hand III, MD RADIOLOGY ( RAD GENERAL) documented in this encounter Advance Directives * [...] and were consensually agreed upon. Care Teams Director Audience Marketing Relationship Specialty Start Date End Date Martin Solorio MD [address] [facility] [address] PCP - General Family Medicine 02/20/21 documented as of this encounter
--- OUTSIDE RECORDS SUMMARY | 2024-04-11 11:04 | External Medical Summary | Summary of Care ---
Author Name Unknown Organization [facility] Address [address] [place] [address] Phone [phone] Care Team Providers Care Helper Driver Name Role Phone Martin Solorio MD Primary Care Provider [phone] Reason for Visit * Reason Comments Return Neuro Encounter Details Date Type Department Care Team (Late st Contact Info) Description 03/01/2024 10:15 AM EDT Office Visit Neurosurgery, [place] [address], [place] [phone] Clinic, Brain Tumor Multidisciplinary [address], [place] [phone] Metastasis to brain (HCC)* Allergies Active Allergy Reactions Criticality Noted Date Comments Erythromycin 08/15/1997 seizures documented as of this encounter (statuses as of 03/04/2024) Medications Medication Sig Dispensed Refills Start Date [...] MG Oral Tablet (Pepcid) 02/29/20 24 Active Levothyroxine Sodium 200 MCG Oral Tablet TAKE 1 TABLET BY MOUTH ONCE DAILY IN THE MORNING AT LEAST 30 MIN BEFORE BREAKFAST OR OTHER MEDS 90 Tablet 1 11/14/19 24 024 Discontinued(Nh dication List Clean Up) dexAMETHasone 4 MG Oral Tablet (Decadron) 02/29/20 24 024 Discontinued documented as of this encounter (statuses as of 03/04/2024) Active Problems Problem Noted Date Diagnosed Date 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 Cerebral atrophy 09/30/2023 Left sided lacunar infarction 09/30/2023 Spinal stenosis of cervical region 09/30/2023 Coronary artery disease invo lving kotlik coronary artery of kotlik heart without angina pectoris 09/30/2023 Pulmonary nodules [...] as of this encounter (statuses as of 03/04/2024) Resolved Problems Problem Noted Date Diagnosed Date [...] as of this encounter (statuses as of 03/04/2024) Immunizations Name Administration Dates Next Due COVID-19, [...] Sign Reading Time Taken Comments Blood Pressure 102/68 03/01/2024 9:58 AM EDT Pulse 70 03/01/2024 9:58 AM EDT Temperature 36.1 C (96.9 F) 03/01/2024 9:58 AM ED T Respiratory Rate - - Oxygen Saturation 98% 03/01/2024 9:58 AM EDT Inhaled Oxygen Concentration - - Weight - - Height 154.9 cm (5' 1") 03/01/2024 9:58 AM EDT Body Mass Index - - documented in this encounter Functional Status Functional [...] (15 years old or older) Yes 03/01/20 24 Cognitive Status Response Date of Assessm ent Because of a physical, menta l, or emotional condition, do you have serious difficulty concentrating, remembering, or making decisions? (5 years old or older) Yes 03/01/2024 documented as of this encounter Patient Instructions * Patient Instructions* Kori Bailey LPN - 03/01/2024 10:19 AM EDT You were seen today by the Brain Tumor Multidisciplinary Clinic at [facility]. You were seen today by Dr. Hand (Neurosurgery) and, Dr. Epstein (Radiation Oncology) and Dr. Bowden (Neuro Oncology) History: Metastatic Melanoma to brain Imaging Review: We reviewed your most recent MRI imaging. Treatment Plan: Surgery Referrals placed: N/A Pt follow-up post surgery. If you have any questions after today's visit, please contact our clinic at [phone]. You may ask to be connected to the Neuro Oncology team, or they will refer your message to us so we may respond in a timely manner. Thank you! documented in this encounter Progress Notes * Grazyna Bowden MD - 03/04/2024 4:19 PM EDT Images from the original note were not included. Brain Tumor MDC--Medical Oncology Note Name: Judy Garcia Date of Service : 03/01/2024 (late entry) Primary Care Provider: Martin Solorio MD DIAGNOSIS and Treatment History: Treatment Summary Malignant melanoma of left lower extremity (HCC) 12/26/2017 Initial Diagnosis Malignant melanoma of left lower extremity (HCC) 01/26/2018 - 03/29/2019 Chemotherapy NIVOLUMAB 240 mg D 1,15 (6 Cycles/28 Days) [id number] 09/17/2021 - Chemotherapy DABRAFENIB (TAFINLAR) & TRAMETINIB (MEKINIST) [id number] Malignant 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) 08/17/2021 [...] S/p post-op RT to resection cavity at [facility] 07/18/2022 Progression IMPRESSION 1. New focus [...] could appear similar. 08/13/2022 - 08/19/2022 Radiation PRESENTING PROBLEM: pt with melanoma, brain mets HPI: Judy hasn't been doing well, she has confusion, falls. She also has some worsening speech. She was recently at OSH and started on steroids with some improvement. ROS: pertinent positive/negative noted above. PAST MEDICAL [...] performed by Saw Arevalo MD at OR [facility] CHEMOTHERAPY for skin cancer from 2017 COLONOSCOPY, DIAGNOSTIC (RECTUM) 08/10/2010 diverticula COLONOSCOPY, DIAGNOSTIC (RECTUM) 06/05/2021 internal hemorrhoids/recall 5 years/COLONOSCOPY FLEXIBLE PROXIMAL DIAGNOSTIC performed by Sharon Vázquez MD at ENDOSCOPY [facility] CYSTOSCOPY 10/2005 Dr. Bone INFORMATION Left 11/14/2017 Skin lesion excised from left lower leg, in-office performed by Dr. Kelton Gillis 11/14/2017 LAPAROSCOPY, CHOLECYSTECTOMY WITH CHOLANGIOGRAPHY 01/25/2004 Laparoscopic cholecystectomy with cholangiogram at [facility] with Dr. Julian MICROSURGERY ADD-ON Left 03/03/2024 MICROSURGICAL SURGERY REQUIRING MICROSCOPE LISTED SEPARATELY performed by Joni Hand III, MD at OR [facility] NERVOUS SYSTEM SURGERY NEC N/A 09/08/2023 UNLISTED PROCEDURE NERVOUS SYSTEM performed by Bereket Lawler MD at [facility] REMOVAL OF TONSILS, AGE 12+ 2003 REMOVE SUPRATENTORIAL BRAIN TUMOR Right 08/20/2021 CRANIOTOMY BONE FLAP EXCISION BRAIN TUMOR SUPRATENTORIAL performed by Joni Hand III, MD at OR [facility] REMOVE SUPRATENTORIAL BRAIN TUMOR Left 03/03/2024 CRANIOTOMY BONE FLAP EXCISION BRAIN TUMOR SUPRATENTORIAL performed by Joni Hand III, [facility] OR [facility] RMV MALG LSN TRK/ARM/LG 1.1-2C Left 12/26/2017 EXCISION MALIGNANT TRUNK ARM LEG 1.1 TO 2CM performed by Saw Arevalo MD at OR [facility] STEREOTACTIC CRANIAL INTRADURAL NAVIGATION Left 03/03/2024 STEREOTACTIC CRANIAL INTRADURAL NAVIGATION performed by Joni Hand III, MD at OR [facility] TOTAL ABD HYSTERECTOMY W/WO REMOVAL OF TUBE(S) 1999 partial [facility] SOCIAL HISTORY: Social History Tobacco [...] No current facility-administered medications for this visit. Facility-Administered Medications Ordered in Other Visits Medication Dose Route Frequency Provider Last Rate Last Admin mupirocin calcium (BACTROBAN for NASAL) 2 % ointment 0.5 g 0.5 g Each Nostril BID(AM/PM) José Luis Paul IV, PA-C 0.5 g at 03/04/24 0841 Chlorhexidine Gluconate (Scrub-Stat) 2% external solution External Daily(AM) Humberto José Luis RAM PA-C 1 Pad at 03/04/24 0842 [START ON 03/05/2024] Chlorhexidine Gluconate (Scrub-Stat) 2% external solution External BID(AM/PM) Humberto José Luis RAM PA-C Acetaminophen (Tylenol) tab 650 mg 650 mg Oral Q6H PRN Humberto José Luis RAM PA-C carBAMazepine ER (Carbatrol) cap 400 mg 400 mg Oral Q12H Humberto José Luis RAM PA-C 400 mg at 03/04/24 0842 PARoxetine (pAXil) tab 40 mg 40 mg Oral Daily(AM) Humberto José Luis RAM PA-C 40 mg at 03/04/24 0841 traZODone (Desyrel) tab 150 mg 150 mg Oral HS Humberto IVJosé Luis PA-C 150 mg at 03/03/24 2122 atorvaSTATin (Lipitor) tab 20 mg 20 mg Oral Daily 1900 Humberto IVJosé Luis PA-C 20 mg at 03/03/24 1803 losartan (Cozaar) tab 50 mg 50 mg Oral Daily(AM) Humberto José Luis RAM PA-C 50 mg at 03/04/24 0841 levothyroxine (Levoxyl) tab 175 mcg 175 mcg Oral Daily 0630 Humberto IVJosé Luis PA-C 175 mcg at 03/04/24 0552 Famotidine (Pepcid) tab 20 mg 20 mg Oral Daily(AM) Humberto IVJosé Luis PA-C 20 mg at 03/04/24 0841 Cephalexin (Keflex) cap 500 mg 500 mg Oral BID(AM/PM) Maniasuzieina, Beulah, DO 500 mg at 03/04/24 0841 labetalol (Trandate) inj 10 mg 10 mg Intravenous Q15 Min PRN Frederick Perdomo MD dexAMETHasone (Decadron) tab 4 mg 4 mg Oral QID(AM/NOON/PM/HS) Frederick Perdomo MD 4 mg at 03/04/24 1225 Followed by [START ON 03/06/2024] dexAMETHasone (Decadron) tab 4 mg 4 mg Oral TID(AM/NOON/HS) Frederick Perdomo MD Followed by [START ON 03/09/2024] dexAMETHasone (Decadron) tab 2 mg 2 mg Oral BID(AM/PM) Frederick Perdomo MD Followed by [START ON 03/12/2024] dexAMETHasone (Decadron) tab 2 mg 2 mg Oral Daily(AM) Frederick Perdomo MD hEParin inj 5,000 Units 5,000 Units Subcutaneous Q8H Frederick Perdomo MD ALLERGIES: Review of patient's allergies indicates: Allergen Reactions Erythromycin seizures PHYSICAL EXAMINATION: Vitals Reviewed as documented in the chart GEN: sitting up comfortably in NAD HEENT: No pallor, conjunctival injection, sclerae anicteric. No thrush Chest: non labored breathing Extr: warm , well perfused, no Edema Neuro: AAOX3, aphasia+ See detailed neuro exam from notes from same day Psych: appropriate mood and affect LABS: Reviewed as documented in the chart IMAGES: Personally reviewed and discussed in [facility] MRI brain Feb 2024: IMPRESSION Intravenous contrast administration was unsuccessful following multiple attempts. Post-ALYSHA treatment related changes in the left frontal lobe. Parenchymal abnormality at the treatment site measuring 1.9 cm, not fully characterized. Surrounding vasogenic edema and mild mass effect, increased since pretreatment imaging. Short interval follow-up with postcontrast and perfusion imaging is recommended. Postsurgical changes in the right parietal lobe appear unchanged on noncontrast exam. IMPRESSION and PLAN: Ida is a 63 year old woman with cutaneous melanoma with brain mets October 2017 --diag with superficial spreading melanoma of the left leg, [id number], Stage IIIc. 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 S/p re-excision [...] brain parenchyma with reactive gliosis.Negative for malignancy. Current rx--dabrafinib and trametinib Reviewed her s/s and concern for progressive enlargement in Left frontal lesion. She discussed roleof surgical resection with Dr Hand Will see her post op in neuroMDC with path Patient Active Problem List Diagnosis Adjustment disorder [...] of cervical region Coronary artery disease involving kotlik coronary artery of kotlik heart without angina pectoris Pulmonary nodules Centrilobular [...] Grazyna Bowden MD Department of Medical Oncology 03/04/2024 * Olga Epstein MD - 03/01/2024 11:01 AM EDT RADIATION ONCOLOGY FOLLOW UP NOTE [facility] - Radiation Oncology PATIENT NAME: Judy Garcia PATIENT DIAGNOSIS: 63 year old female with history of superficial spreading melanoma of the left leg, [id number], Stage IIIc, diagnosed via excision 11/14/2017 (negative [...] 09/11/2021 - 10/02/2021 to the postop bed ([facility]) S/p dabrafinib and trametinib 10/09 S/p 27 Gy / 3 fx 08/13/2022 - 08/19/2022 left frontal lobe ([facility]) INTERVAL HISTORY: Judy Garcia is a seen today in the multidisciplinary brain clinic. She underwent a brain MRI without IV contrast on 02/20/2024 which showed post-ALYSHA changes in the left frontal lobe with parenchymal abnormality at the treatment site measuring 1.9 cm, increased since prior imaging. She reported right-sided weakness, falls, altered mental status. She is currently on steroidswhich have improved her symptoms. Her case was discussed in the [facility] meeting and options include short-term follow-up with repeat MRI versus surgery. She has previously underwent SRS to the left frontal lesion completed on 08/19/2022. RADIOLOGY/LABORATORY DATA: As in HPI Review of patient's allergies indicates: Allergen Reactions Erythromycin seizures MEDICATIONS: No current facility-administered medications for this visit. No current outpatient medications on file. Facility-Administered Medications Ordered in Other Visits Medication Dose Route Frequency Provider Last Rate Last Admin Acetaminophen (Tylenol) tab 650 mg 650 mg Oral Q6H PRN Humberto IVJosé Luis PA-C atorvaSTATin (Lipitor) tab 20 mg 20 mg Oral Daily 1900 Humberto IVJosé Luis PA-C 20 mg at 03/03/24 1803 carBAMazepine ER (Carbatrol) cap 400 mg 400 mg Oral Q12H Humberto IVJosé Luis PA-C 400 mg at 03/03/24 0532 Cephalexin (Keflex) cap 500 mg 500 mg Oral BID(AM/PM) Maniakhina, Beulah, DO 500 mg at 03/02/24 2140 Chlorhexidine Gluconate (Scrub-Stat) 2% external solution External Daily(AM) Humberto IVJosé Luis PA-C Given at 03/02/24 1200 [START ON 03/05/2024] Chlorhexidine Gluconate (Scrub-Stat) 2% external solution External BID(AM/PM) José Luis Paul IV, PA-C dexAMETHasone (Decadron) tab 4 mg 4 mg Oral QID(AM/NOON/PM/HS) Frederick Perdomo MD 4 mg at 03/03/24 1803 Followed by [START ON 03/06/2024] dexAMETHasone (Decadron) tab 4 mg 4 mg Oral TID(AM/NOON/HS) Frederick Perdomo MD Followed by [START ON 03/09/2024] dexAMETHasone (Decadron) tab 2 mg 2 mg Oral BID(AM/PM) Frederick Perdomo MD Followed by [START ON 03/12/2024] dexAMETHasone (Decadron) tab 2 mg 2 mg Oral Daily(AM) Frederick Perdomo MD Famotidine (Pepcid) tab 20 mg 20 mg Oral Daily(AM) José Luis Paul IV, PA-C 20 mg at 03/02/24 0841 [START ON 03/04/2024] hEParin inj 5,000 Units 5,000 Units Subcutaneous Q8H Frederick Perdomo MD labetalol (Trandate) inj 10 mg 10 mg Intravenous Q15 Min PRN Frederick Perdomo MD levothyroxine (Levoxyl) tab 175 mcg 175 mcg Oral Daily 0630 José Luis Paul IV, PA-C 175 mcg at 03/03/24 0532 losartan (Cozaar) tab 50 mg 50 mg Oral Daily(AM) José Luis Paul IV, PA-C 50 mg at 03/02/24 0841 mupirocin calcium (BACTROBAN for NASAL) 2 % ointment 0.5 g 0.5 g Each Nostril BID(AM/PM) José Luis Paul IV, PA-C 0.5 g at 03/02/24 2141 PARoxetine (pAXil) tab 40 mg 40 mg Oral Daily(AM) José Luis Paul IV, PA-C 40 mg at 03/02/24 0841 traZODone (Desyrel) tab 150 mg 150 mg Oral HS José Luis Paul IV, PA-C 150 mg at 08/13/24 2140 REVIEW OF SYSTEMS: As in HPI PHYSICAL EXAM: VS: BP 102/68 | Pulse 70 | Temp 36.1 C (96.9 F) (Tympanic) | Ht 1.549 m (5' 1") | SpO2 98% | BMI 25.30 kg/m | BSA 1.62 m Physical Exam Constitutional: General: She is not in acute distress. Eyes: Extraocular Movements: Extraocular movements intact. Pulmonary: Effort: Pulmonary effort is normal. No respiratory distress. Neurological: Mental Status: She is alert and oriented to person, place, and time. Cranial Nerves: No cranial nerve deficit. Motor: Weakness (R sided) present. ASSESSMENT/PLAN: Judy Garcia is a seen today in the multidisciplinary brain clinic. MRI done on 02/20/2024 is worrisome for increase in size of left frontal lesion. Given increase in size of theleft frontal lesion despite previous stereotactic radiosurgery, Dr. Robledo has discussed surgical resection with the patient in details. She has consented to surgery and will be admitted from clinic for preop optimization and surgery. Signed by: Olga Epstein MD 03/01/2024 * Joni Hand III, MD - 03/01/2024 10:30 AM EDT Images from the original note were not included. HISTORY & PHYSICAL EXAMINATON - Neurosurgery -- Brain Tumor [facility] [id number] Name: Judy Garcia Date: 03/01/2024 Time: 10:30 AM Primary Care Provider: Martin Solorio MD PRESENTING PROBLEM: recurrent L frontal [...] 240 mg D 1,15 (6 Cycles/28 Days) [id number] 09/17/2021 - Chemotherapy DABRAFENIB (TAFINLAR) & TRAMETINIB (MEKINIST) [id number] Malignant 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) 08/17/2021 [...] S/p post-op RT to resection cavity at [facility] 07/18/2022 Progression IMPRESSION 1. New focus [...] 08/19/2022 Radiation PAST MEDICAL HISTORY: Past Medical History: Diagnosis [...] SUPERFICIAL performed by Saw Arevalo MD at [facility] CHEMOTHERAPY for skin cancer from 2017 COLONOSCOPY, DIAGNOSTIC (RECTUM) 08/10/2010 diverticula COLONOSCOPY, DIAGNOSTIC (RECTUM) 06/05/2021 internal hemorrhoids/recall 5 years/COLONOSCOPY FLEXIBLE PROXIMAL DIAGNOSTIC performed by Sharon Vázquez MD at ENDOSCOPY [facility] CYSTOSCOPY 10/2005 Dr. Bone INFORMATION Left 11/14/2017 Skin lesion excised from left lower leg, in-office performed by Dr. Kelton Gillis 11/14/2017 LAPAROSCOPY, CHOLECYSTECTOMY WITH CHOLANGIOGRAPHY 01/25/2004 Laparoscopic cholecystectomy with cholangiogram at [facility] with Dr. Julian NERVOUS SYSTEM SURGERY NEC N/A 09/08/2023 UNLISTED PROCEDURE NERVOUS SYSTEM performed by Bereket Lawler MD at [facility] REMOVAL OF TONSILS, AGE 12+ 2003 REMOVE SUPRATENTORIAL BRAIN TUMOR Right 08/20/2021 CRANIOTOMY BONE FLAP EXCISION BRAIN TUMOR SUPRATENTORIAL performed by Joni Hand III, MD at [facility] RMV MALG LSN TRK/ARM/LG 1.1-2C Left 12/26/2017 EXCISION MALIGNANT TRUNK ARM LEG 1.1 TO 2CM performed by Saw Arevalo MD at [facility] TOTAL ABD HYSTERECTOMY W/WO REMOVAL OF TUBE(S) 1999 partial [facility] SOCIAL HISTORY: Social History Socioeconomic History Marital status: Spouse name: Kwame Number of children: 2 Years of education: Not on file Highest education level: Not on file Occupational History Occupation: [employer] 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 IMPRESSION: 63 yo with melanoma s/p multimodality therapy, with symptomatic L frontal lesion Patient Active Problem List Diagnosis Adjustment disorder [...] of cervical region Coronary artery disease involving kotlik coronary artery of kotlik heart without angina pectoris Pulmonary nodules Centrilobular emphysema (HCC) Left atrial enlargement Mild mitral regurgitation Mild tricuspid regurgitation Mild pulmonary valve regurgitation PLAN: I had an extensive conversation with Ida [...] med clearance, surgical planning, and surgery JOSE. Thank you kindly for the opportunity to see her today. I spent a total of Greater than 55 mins (exact time 58 mins) on the date of service in preparation,delivery, and documentation of the care provided to Judy Garcia excluding any time spent in the performance of separately billed services or time spent by another provider/QHP. Joni Hand III, MD, PhD Department of Neurosurgery 03/01/2024 10:30 AM documented in this encounter Nursing Notes * Blanca Aguiar CMA - 03/01/2024 10:07 AM EDT Patient was instructed to not get up [...] 9:45 AM EDT Pharmacy Pharmacy Hematology Oncology [address] [address] [facility] Hem/Onc [facility] [place] [address] 03/10/2024 3:00 PM EDT Office Visit [facility] [address] [place] [phone] Martin Solorio MD [address] [place] [address] 03/15/2024 10:15 AM EDT Office Visit Neurosurgery[address] [address] Clinic, Brain Tumor Multidisciplinary [facility] [place] [address] 05/06/2024 2:45 PM EDT Office Visit Hematology/Oncology [facility] [address] [facility] [place] [phone] Benja Watkins MD [address] [facility] [place] [address] 08/02/2024 8:20 AM EST Office Visit [facility] [address] [place] [phone] Martin Solorio MD [address], [place] [id number] 10/05/2024 12:30 PM EDT Telemedicine Care at Home [address], [place] [phone] Kori Dumont PA-C [address], [place] [phone] 02/14/2025 8:00 AM EDT Imaging Radiology [facility] [address] [facility] [address] [facility] [place] [id number] Scheduled Procedures Name Priority Associated Diagnoses Date/Ti me COLONOSCOPY FLEXIBLE PROXIMA L DIAGNOSTIC Recall Family history of colon cancer Health Maintenance Due Date Last Done Comments Alpha-1 Antitrypsin 1976 Cologuard 2003 Fecal Occult Blood Test 2003 Sigmoidoscopy 2003 COVID-19 Vaccine (2022- season) 2023 06/26/2023, 12/14/2021, 2021, Additional history [...] this encounter Medical Devices Implanted Type Area 911 Dispatcher Device Identifier Shelf Expiration Date Model / Serial / Lot Cover Nilda Hole 24mm 421.528 - [id number] Implanted:Qty: 1 on 08/20/2021 by Joni Hand III, MD at OR [facility] Right: Head SYNTHES MAXILLOFACIAL 421.528 / / Plate Y Ti Lo Db 6h 21 421.517 - [id number] Implanted:Qty: 1 on 08/20/2021 by Joni Hand III, MD at OR [facility] Right: Head SYNTHES MAXILLOFACIAL 421.517 / / Screw Ti Lo Pro Sd 4mm 400.834 - [id number] Implanted:Qty: 10 on 08/20/2021 by Joni Hand III, MD at OR [facility] Right: Head SYNTHES MAXILLOFACIAL 400.834 / / Cement Hydroset Injectable 5cc - [id number] Implanted:Qty: 1 on 03/03/2024 by Joni Hand III, MD at OR [facility] Left: Head SUZANNA [id number] 09/19/2025 [id number] / / [id number] Cover Bur Hol Ti Lo 17 421.527 - [id number] Implanted:Qty: 1 on 03/03/2024 by Joni Hand III, MD at OR [facility] Left: Head SYNTHES MAXILLOFACIAL 421.527 / / Plate Ti Lo Pro Str 2h 421.502 - [id number] Implanted:Qty: 2 on 03/03/2024 by Joni Hand III, MD at OR [facility] Left: Head SYNTHES MAXILLOFACIAL 421.502 / / Screw 4mm Ti Low Pro Sdrill - [id number] Implanted:Qty: 7 on 03/03/2024 by Joni Hand III, MD at OR [facility] Left: Head SYNTHES MAXILLOFACIAL 400.834E / / [...] and were consensually agreed upon. Care Teams Helper Driver Relationship Specialty Start Date End Date Martin Solorio MD [address] [place] [address] PCP - General Family Medicine 02/20/21 documented as of this encounter
--- OUTSIDE RECORDS SUMMARY | 2024-04-11 11:04 | External Medical Summary | Summary of Care ---
Author Name Unknown Organization [facility] Address [address] [place] [address] Phone [phone] Care Team Providers Care Single Pass Soil Stabilizer Operator Name Role Phone Martin Solorio MD Primary Care Provider [phone] Encounter Details Date Type Department Care Team (Latest Contact Info) Description 02/26/2024 11:05 PM EDT - 02/26/2024 11:09 PM EDT Hospital Encounter Radiology Film File [address] [place] [address] Discharge Disposition: Home - Self [...] region 09/30/2023 Coronary artery disease invo lving [place] coronary artery of [place] heart without angina pectoris 09/30/2023 Pulmonary nodules [...] - 03/03/2024 12:47 PM EDT Surgery [place] [facility] [address] [place] [address] Joni Hand III, MD [address], [place] [phone] CRANIOTOMY BONE FLAP EXCISION BRAIN TUMOR SUPRATENTORIAL 03/09/2024 9:45 AM EDT Pharmacy Pharmacy Hematology Oncology [facility] [place] [address] [place] [address] [facility], [facility] Hem/Onc [address] [place] [address] 03/15/2024 10:15 AM EDT Office Visit Neurosurgery, [place] [address], [place] [phone] Clinic, Brain Tumor Multidisciplinar y [address] [place] [address] 05/06/2024 2:45 PM EDT Office Visit Hematology/Oncology [facility] 200 [facility] [place] [address] Benja Watkins MD 200 [facility] [place] [address] 08/02/2024 8:20 AM EST Office Visit [facility] [address] [place] [address] Martin Solorio MD [address] [place], [place] [address] 10/05/2024 12:30 PM EDT Telemedicine Care at Home [address] [place] [address] Kori [place] PA-C [address] [place] [address] 02/14/2025 8:00 AM EDT Imaging Radiology [facility] [address] [facility] 132 [facility] [place] [address] Scheduled Procedures Name Priority Associated Diagnoses Date/Ti [...] 09/10/2023 DISCUSS TOBACCO CESSATION (REFER TO SMARTSET #4165) 01/28/2025 01/29/2024 TSH 01/28/2025 01/29/2024, 07/21, 07/25/2023, [...] this encounter Medical Devices Implanted Type Area Technology Methodology Consultant Device Identifier Shelf Expiration Date Model / Serial / Lot Cover [place] 24mm 421.528 - [id number] Implanted:Qty: 1 on 08/20/2021 by Joni Hand III, MD at [place] [facility] Right: Head SYNTHES MAXILLOFACIAL 421.528 / / Plate Y Ti Lo Db 6h 21 421.517 - [id number] Implanted:Qty: 1 on 08/20/2021 by Joni Hand III, MD at OR [facility] Right: Head SYNTHES MAXILLOFACIAL 421.517 / / Screw Ti Lo Pro Sd 4mm 400.834 - [id number] Implanted:Qty: 10 on 08/20/2021 by Joni Hand III, MD at OR [facility] Right: Head SYNTHES MAXILLOFACIAL 400.834 / / documented as of this encounter Procedures Procedure Name Priority Date/Time Associated Diagnosis Comments RADIOLOGY EXAM - CT (IMAGES ONLY, NO REPORT) Routine 02/26/2024 11:05 PM EDT documented in this encounter Results * RADIOLOGY EXAM - CT (IMAGES ONLY, NO REPORT) (02/26/2024 11:05 PM EDT) 02/26/2024 10:5 9 PM EDT Narrative Scheduling, Silent - 03/01/2024 10:55 AM EDT This is an imaging study not interpreted or resulted by a [facility] or [facility] radiologist. Joni Hand III, MD [...] and were consensually agreed upon. Care Teams Single Pass Soil Stabilizer Operator Relationship Specialty Start Date End Date Martin Solorio MD [address] [facility] [place] [address] PCP - General Family Medicine 02/20/21 documented as of this encounter
--- OUTSIDE RECORDS SUMMARY | 2024-04-11 11:04 | External Medical Summary | Summary of Care ---
Author Name Unknown Organization [facility] Address [address] [place] [address] Phone [phone] Care Team Providers Care Conduit Bender Name Role Phone Martin Solorio MD Primary Care Provider [phone] Encounter Details Date Type Department Care Team (Latest Contact Info) Description 02/26/2024 11:10 PM EDT - 02/26/2024 11:14 PM EDT Hospital Encounter Radiology Film File [address] [place] [address] Discharge Disposition: Home - Self [...] region 09/30/2023 Coronary artery disease invo lving [place] coronary artery of [place] heart without angina pectoris 09/30/2023 Pulmonary nodules [...] - 03/03/2024 12:47 PM EDT Surgery [place] [facility] [address] [place] [address] Joni Hand III, MD [address] [place], [place] [phone] CRANIOTOMY BONE FLAP EXCISION BRAIN TUMOR SUPRATENTORIAL 03/09/2024 9:45 AM EDT Pharmacy Pharmacy Hematology Oncology [facility] [place] [address] [place] [address] [facility] [place], [facility] Hem/Onc [address] [place] [address] 03/15/2024 10:15 AM EDT Office Visit Neurosurgery, [place] [address] [place], [place] [phone] Clinic, Brain Tumor Multidisciplinar y [address] [place] [address] 05/06/2024 2:45 PM EDT Office Visit Hematology/Oncology [facility] 200 [facility] [place] [address] Benja Watkins MD 200 [facility] [place] [address] 08/02/2024 8:20 AM EST Office Visit [facility] [address] [place] [address] Martin Solorio MD [address] [place], [place] [address] 10/05/2024 12:30 PM EDT Telemedicine Care at Home [address] [place] [address] Kori [place] PA-C [address] [place] [address] 02/14/2025 8:00 AM EDT Imaging Radiology [facility] [address] [facility] 132 [facility] [place] [address] Scheduled Procedures Name Priority Associated Diagnoses Date/Ti [...] 09/10/2023 DISCUSS TOBACCO CESSATION (REFER TO SMARTSET #7155) 01/28/2025 01/29/2024 TSH 01/28/2025 01/29/2024, 07/21, 07/25/2023, [...] this encounter Medical Devices Implanted Type Area Crisis Mental Health Therapist Device Identifier Shelf Expiration Date Model / Serial / Lot Cover [place] Hole 24mm 421.528 - [id number] Implanted:Qty: 1 on 08/20/2021 by Joni Hand III, MD at [place] [facility] Right: Head SYNTHES MAXILLOFACIAL 421.528 / / Plate Y Ti Lo Db 6h 21 421.517 - [id number] Implanted:Qty: 1 on 08/20/2021 by Joni Hand III, MD at [place] [facility] Right: Head SYNTHES MAXILLOFACIAL 421.517 / / Screw Ti Lo Pro Sd 4mm 400.834 - [id number] Implanted:Qty: 10 on 08/20/2021 by Joni Hand III, MD at [place] [facility] Right: Head SYNTHES MAXILLOFACIAL 400.834 / / documented as of this encounter Procedures Procedure Name Priority Date/Time Associated Diagnosis Comments RADIOLOGY EXAM - CT (IMAGES ONLY, NO REPORT) Routine 02/26/2024 11:10 PM EDT documented in this encounter Results * RADIOLOGY EXAM - CT (IMAGES ONLY, NO REPORT) (02/26/2024 11:10 PM EDT) 02/26/2024 10:5 9 PM EDT Narrative Scheduling, Silent - 03/01/2024 10:57 AM EDT This is an imaging study not interpreted or resulted by a [facility] or [facility] radiologist. Joni Hand III, MD RAD [...] and were consensually agreed upon. Care Teams Conduit Bender Relationship Specialty Start Date End Date Martin Solorio MD [address] [facility] [place] [address] PCP - General Family Medicine 02/20/21 documented as of this encounter
--- OUTSIDE RECORDS SUMMARY | 2024-04-11 11:04 | External Medical Summary | Summary of Care ---
Author Name Unknown Organization [facility] Address [address] [place] [address] Phone [phone] Care Team Providers Care Warehouse General Laborer Name Role Phone Martin Solorio MD Primary Care Provider [phone] Encounter Details Date Type Department Care Team (Latest Contact Info) Description 02/26/2024 11:00 PM EDT - 02/26/2024 11:04 PM EDT Hospital Encounter Radiology Film File [address] [place] [address] Discharge Disposition: Home - Self [...] region 09/30/2023 Coronary artery disease invo lving [place] coronary artery of [place] heart without angina pectoris 09/30/2023 Pulmonary nodules [...] 03/03/2024 12:47 PM EDT Surgery [place] [facility] [place]PER[place] RO[facility] [address] [place] [address] Joni Hand III, MD [address] [place], [place] [phone] CRANIOTOMY BONE FLAP EXCISION BRAIN TUMOR SUPRATENTORIAL 03/09/2024 9:45 AM EDT Pharmacy Pharmacy Hematology Oncology [facility] [place] [address] [place] [address] [facility], [facility] Hem/Onc [address] [place] [address] 03/15/2024 10:15 AM EDT Office Visit Neurosurgery, [place] [address] [place], [place] [address] Clinic, Brain Tumor Multidisciplinar y [address] [place] [address] 05/06/2024 2:45 PM EDT Office Visit Hematology/Oncology [facility] 200 [facility] [place] [address] Benja Watkins MD 200 [facility] [place] [address] 08/02/2024 8:20 AM EST Office Visit [facility] [address] [place] [phone] Martin Solorio MD [address] [place], [place] [phone] 10/05/2024 12:30 PM EDT Telemedicine Care at Home [address] [place] [address] Kori Dum[place] PA-C [address] [place] [address] 02/14/2025 8:00 AM EDT Imaging Radiology [facility]st [facility] 132 [facility] [place] [address] Scheduled Procedures Name Priority Associated Diagnoses Date/Ti [...] 09/10/2023 DISCUSS TOBACCO CESSATION (REFER TO SMARTSET #3251) 01/28/2025 01/29/2024 TSH 01/28/2025 01/29/2024, 07/21, 07/25/2023, [...] this encounter Medical Devices Implanted Type Area Registered Medical Transcriptionist Device Identifier Shelf Expiration Date Model / Serial / Lot Cover [place] Hole 24mm 421.528 - [id number] Implanted:Qty: 1 on 08/20/2021 by Joni Hand III, MD at [place] [facility] [place] Right: Head SYNTHES MAXILLOFACIAL 421.528 / / Plate Y Ti Lo Db 6h 21 421.517 - [id number] Implanted:Qty: 1 on 08/20/2021 by Joni Hand III, MD at [place] [facility] [place] Right: Head SYNTHES MAXILLOFACIAL 421.517 / / Screw Ti Lo Pro Sd 4mm 400.834 - [id number] Implanted:Qty: 10 on 08/20/2021 by Joni Hand III, MD at [place] [facility] [place] Right: Head SYNTHES MAXILLOFACIAL 400.834 / / documented as of this encounter Procedures Procedure Name Priority Date/Time Associated Diagnosis Comments RADIOLOGY EXAM - CT (IMAGES ONLY, NO REPORT) Routine 02/26/2024 11:00 PM EDT documented in this encounter Results * RADIOLOGY EXAM - CT (IMAGES ONLY, NO REPORT) (02/26/2024 11:00 PM EDT) 02/26/2024 10:5 9 PM EDT Narrative Scheduling, Silent - 03/01/2024 10:54 AM EDT This is an imaging study not interpreted or resulted by a [facility] or [facility] [...] and were consensually agreed upon. Care Teams Warehouse General Laborer Relationship Specialty Start Date End Date Martin Solorio MD [address] [facility] [place] [address] PCP - General Family Medicine 02/20/21 documented as of this encounter
--- OUTSIDE RECORDS SUMMARY | 2024-04-11 11:04 | External Medical Summary | Summary of Care ---
Author Name Unknown Organization [facility] Address [address] [place] [address] Phone [phone] Care Team Providers Care Transport Coordinator Name Role Phone Martin Solorio MD Primary Care Provider [phone] Encounter Details Date Type Department Care Team (Late st Contact Info) Description 03/02/2024 Population Health External Data Unspecified Department Allergies [...] region 09/30/2023 Coronary artery disease invo lving [place] coronary artery of [place] heart without angina pectoris 09/30/2023 Pulmonary nodules [...] Yes 03/01/2024 documented as of this encounter Plan of Treatment Upcoming Encounters Date Type Department Care Team (Latest Contact Info) Description 03/02/2024 9:45 AM EDT Pharmacy Pharmacy Hematology Oncology [facility] [address] [place] [address] [facility] [place] Hem/Onc [address] [place] [address] 03/03/2024 8:00 AM EDT - 03/03/2024 12:47 PM EDT Surgery OR C, OPERATING ROOM [facility] [place] [address] [place] [address] Joni Hand III, MD [address] [place] [address] CRANIOTOMY BONE FLAP EXCISION BRAIN TUMOR SUPRATENTORIAL 03/15/2024 10:15 AM EDT Office Visit Neurosurgery, [place] [address] [place] [address] Clinic, Brain Tumor Multidisciplinar y [address] [place] [address] 05/06/2024 2:45 PM EDT Office Visit Hematology/Oncology [facility] 200 [facility] [address] Benja Watkins MD 200 [facility] [place] [address] 08/02/2024 8:20 AM EST Office Visit [facility] [address] [place] [address] Martin Solorio MD [address] [place] [address] 10/05/2024 12:30 PM EDT Telemedicine Care at Home [address] [place] [address] Kori [place] PA-C [address] [place] [address] 02/14/2025 8:00 AM EDT Imaging Radiology [address] [place] [address] Scheduled Procedures Name Priority Associated Diagnoses Date/Ti [...] this encounter Medical Devices Implanted Type Area Waxed Bag Machine Operator Device Identifier Shelf Expiration Date Model / Serial / Lot Cover [place] Hole 24mm 421.528 - [id number] Implanted:Qty: 1 on 08/20/2021 by Joni Hand III, MD at [place] [facility] Right: Head SYNTHES MAXILLOFACIAL 421.528 / / Plate Y Ti Lo Db 6h 21 421.517 - [id number] Implanted:Qty: 1 on 08/20/2021 by Joni Hand III, MD at [place] [facility] Right: Head SYNTHES MAXILLOFACIAL 421.517 / / Screw Ti Lo Pro Sd 4mm 400.834 - [id number] Implanted:Qty: 10 on 08/20/2021 by Joni Hand III, MD at [place] [facility] Right: Head SYNTHES MAXILLOFACIAL 400.834 / / [...] Question Answer Comments Discussion of Advance Direct waylno occurred with: Not Discussed due to patient's [...] and were consensually agreed upon. Care Teams Transport Coordinator Relationship Specialty Start Date End Date Martin Solorio MD [address] [facility] [address] PCP - General Family Medicine 02/20/21 documented as of this encounter
--- OUTSIDE RECORDS SUMMARY | 2024-04-11 11:04 | External Medical Summary ---
Author Name Unknown Address Unknown Organization [id number]:[facility] [address] [facility] [place] [address] Laboratory Report Ordering Provider Test Date Status CARLENE CHEN 03/03/2024 09:35:57 Final Observation Date Value Abnormality Reference (Units ) Status Body temperature 03/03/2024 09:35:57 37.0 (C) Final pH of Arterial blood 03/03/2024 09:35:57 7.449 7.350-7.450 (units) Final Carbon dioxide [Partial pressure] in Arterial blood 03/03/2024 09:35:57 36.4 35.0-45.0 (mmHg) Final Oxygen [Partial pressure] in Arterial blood 03/03/2024 09:35:57 122.0 Above high normal 75.0-100.0 (mmHg) Final Base excess, Arterial 03/03/2024 09:35:57 1.5 -2.0-2.0 (mmol/L) Final Hemoglobin [Mass/volume] in Blood by Oximetry 03/03/2024 09:35:57 10.8 Below low normal 12.0-15.3 (g/dL) Final Oxyhemoglobin, Arterial (FO2HB) 03/03/2024 09:35:57 96.4 94.0-99.0 (% total Hgb) Final Carboxyhemoglobin 03/03/2024 09:35:57 1.2 <=1.5 (% total Hgb) Final Smokers: 0-9.0 % Methemoglobin 03/03/2024 09:35:57 0.9 <= 1.5 (% total Hgb) Final Deoxyhemoglobin/Hemoglo bin.total in Arterial blood 03/03/2024 09:35:57 1.5 0.0-5.0 (% total Hgb) Final Oxygen content in Arterial blood 03/03/2024 09:35:57 14.9 Below low normal 15.0-24.0 (%vol) Final Potassium, Whole Blood 03/03/2024 09:35:57 3.4 Below low normal 3.5-5.1 (mmol/L) Final Sodium, Whole Blood 03/03/2024 09:35:57 139 135-146 (mmol/L) Final Chloride, Whole Blood 03/03/2024 09:35:57 105 98-107 (mmol/L) Final Calcium.ionized [Moles/volume] in Blood by Ion-selective membrane electrode (ISE) 03/03/2024 09:35:57 1.11 Below low normal 1.13-1.32 (mmol/L) Final Anion gap, Whole Blood 03/03/2024 09:35:57 9.7 7.0-15.0 (mmol/L) Final Glucose, whole blood 03/03/2024 09:35:57 101 70-120 (mg/dL) Final Oxygen/Total gas setting [Volume Fraction] Ventilator 03/03/2024 09:35:57 50% (%) Final O2 FLOW, ARTERIAL - [facility] 03/03/2024 09:35:57 1 L/min (L/min) Final Bicarbonate, Venous, POC (i-STAT) 03/03/2024 09:35:57 24.9 23.0-31.0 (mmol/L) Final Performing Location [facility] [place] [address] [facility] [id number]
--- OUTSIDE RECORDS SUMMARY | 2024-04-11 11:05 | External Medical Summary ---
Author Name Unknown Address Unknown Organization [id number]:[facility]ORY [facility] [place] - [address] [place] [address] Laboratory Report Ordering Provider Test Date Status SARAH DASH IV 03/01/2024 13:16:00 Final Warfarin Therapy
INR: 2 .0-3.0 conventional anticoagulation
INR: 2.5- 3.5 high intensity anticoagulation Observation Date Value Abnormality Reference (Units ) Status PT 03/01/2024 13:16:00 11.2 Below low normal 11. 6-15.2 (seconds) Final INR 03/01/2024 13:16:00 0.8 0.8-1.2 Final Performing Location LABORATORY [facility] [place] - [address] [place] [address]
--- OUTSIDE RECORDS SUMMARY | 2024-04-11 11:05 | External Medical Summary ---
Author Name Unknown Address Unknown Organization [id number]:[facility] - [address] [place] [address] Laboratory Report Ordering Provider Test Date Status EKTASARAH IV 03/01/2024 13:16:00 Final Observation Date Value Abnormality Reference (Units ) Status ABO 03/01/2024 13:16:00 A Final RH 03/01/2024 13:16:00 Positive Final RED BLOOD CELL ANTIBODY SCREEN 03/01/2024 13:16:00 Negative Final SPECIMEN EXPIRATION DATE 03/01/2024 13:16:00 03/04/2024 23:59 Final Performing Location LAB[facility] - [address] [place] [address]
--- OUTSIDE RECORDS SUMMARY | 2024-04-11 11:05 | External Medical Summary | Summary of Care ---
Author Name Unknown Organization [facility] Address [address] [place] [address] Phone [phone] Care Team Providers Care Research Anthropologist Name Role Phone Martin Solorio MD Primary Care Provider [phone] Encounter Details Date Type Department Care Team (Late st Contact Info) Description 02/27/2024 Orders Only Neurosurgery, [place] [address] [place] [address] Joni Hand III, MD [address] [place] [address] Allergies Active Allergy Reactions Criticality Noted Date Comments Erythromycin 08/15/1997 seizures documented as of this encounter (statuses as of 03/01/2024) Medications Medication Sig Dispensed Refills Start Date [...] 90 Tablet 5 4 Suspended Additional Information Levothyroxine Sodium 200 MCG Oral Tablet TAKE 1 TABLET BY MOUTH ONCE DAILY IN THE MORNING AT LEAST 30 MIN BEFORE BREAKFAST OR OTHER MEDS 90 Tablet 1 4 Suspended Additional Information Patient not taking.Reported on 03/01/2024 Triamcinolone Acetonide 0.1 % External Cream (Aristocort) [...] as of this encounter (statuses as of 03/01/2024) Active Problems Problem Noted Date Diagnosed Date 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 Cerebral atrophy 09/30/2023 Left sided lacunar infarction 09/30/2023 Spinal stenosis of cervical region 09/30/2023 Coronary artery disease invo lving [place] coronary artery of [place] heart without angina pectoris 09/30/2023 Pulmonary nodules 09/30/2023 Centrilobular emphysema 09/30/2023 Left atrial enlargement 09/30/2023 Mild mitral regurgitation 09/30/2023 Mild tricuspid regurgitation 09/30/2023 Mild pulmonary valve regurgitation 09/30/2023 Brain lesion 09/08/2023 Malignant neoplasm metastatic to brain 02/01/202 2 Hx of melanoma of skin 08/26/2019 [...] as of this encounter (statuses as of 03/01/2024) Resolved Problems Problem Noted Date Diagnosed Date [...] as of this encounter (statuses as of 03/01/2024) Immunizations Name Administration Dates Next Due COVID-19, [...] 9:45 AM EDT Pharmacy Pharmacy Hematology Oncology [facility] [address] [place] [address] [facility] Hem[facility]Onc [address] [place] [address] 03/03/2024 8:00 AM EDT - 03/03/2024 12:47 PM EDT Surgery OR [facility] OPERATING ROOM [facility] [address] [place] [address] Joni Hand III, MD [address] [place] [address] CRANIOTOMY BONE FLAP EXCISION BRAIN TUMOR SUPRATENTORIAL 03/15/2024 10:15 AM EDT Office Visit Neurosurgery, [place] [address] [place] [address] Clinic, Brain Tumor Multidisciplinar y [address] [place] [address] 05/06/2024 2:45 PM EDT Office Visit Hematology/Oncology [facility] [place] 200 [facility] [place] [address] Benja Watkins MD 200 [facility] [place] [address] 08/02/2024 8:20 AM EST Office Visit [facility] [address] [place] [phone] Martin Solorio MD [address] [place] [address] 10/05/2024 12:30 PM EDT Telemedicine Care at Home [address] [place] [address] Kori [place] PA-C [address] [place] [address] 02/14/2025 8:00 AM EDT Imaging Radiology [facility] 1st [facility] [address] [place] [address] Scheduled Procedures Name Priority Associated Diagnoses Date/Ti [...] 02/12/2025 02/13/2024, 01/19, 02/06/2021, Additional history exists Colonoscopy 06/05/2026 06/05/2021, 05/21, [...] this encounter Medical Devices Implanted Type Area Axle Inspector Device Identifier Shelf Expiration Date Model / Serial / Lot Cover [place] Hole 24mm 421.528 - [id number] Implanted:Qty: 1 on 08/20/2021 by Joni Hand III, MD at OR [facility] Right: Head SYNTHES MAXILLOFACIAL 421.528 / / Plate Y Ti Lo Db 6h 21 421.517 - [id number] Implanted:Qty: 1 on 08/20/2021 by Joni Hand III, MD at OR [facility] Right: Head SYNTHES MAXILLOFACIAL 421.517 / / Screw Ti Lo Pro Sd 4mm 400.834 - [id number] Implanted:Qty: 10 on 08/20/2021 by Joni Hand [...] study not interpreted or resulted by a [facility] or [facility] contracted radiologist. Joni Hand III, MD RAD [...] and were consensually agreed upon. Care Teams Research Anthropologist Relationship Specialty Start Date End Date Martin Solorio MD [address] [place] [address] PCP - General Family Medicine 02/20/21 documented as of this encounter
--- OUTSIDE RECORDS SUMMARY | 2024-04-11 11:05 | External Medical Summary ---
Author Name Unknown Address Unknown Organization K01:LAB[facility]ATORY [facility] [place] - [address] [facility] [address] [place] [address] Laboratory Report Ordering Provider Test Date Status CAROLYN DASHRI IV 03/01/2024 13:32:22 Final Observation Date Value Abnormality Reference (Units ) Status Methicillin resistant Staphylococcus aureus (MRSA) DNA [Presence] in Nose by LAMONTE with probe detection 03/01/2024 13:32:22 Negative Negative Final No Methicillin resistant Sta phylococcus aureus detected by PCR (amplified probe). Performing Location LABORATORY [facility] - [address] [place] [address]
--- OUTSIDE RECORDS SUMMARY | 2024-04-11 11:05 | External Medical Summary | Summary of Care ---
Author Name Unknown Organization [facility] Address [address] [place] [address] Phone [phone] Care Team Providers Care Contact Center Agent Name Role Phone Martin Solorio MD Primary Care Provider Encounter Details Date Type Department Care Team (Late st Contact Info) Description 02/26/2024 Orders Only Neurosurgery, [place] [address] [place] [address] Joni Hand III, MD [address] [place] [address] Allergies Active Allergy Reactions Criticality [...] region 09/30/2023 Coronary artery disease invo lving inaja coronary artery of in[place] heart without angina pectoris 09/30/2023 Pulmonary nodules [...] AM EDT Pharmacy Pharmacy Hematology Oncology [facility] [address] [place] [address] [facility], [facility] Hem/Onc [address] [place] [address] 03/03/2024 8:00 AM EDT - 03/03/2024 12:47 PM EDT Surgery OR [facility], [facility] [address] [place] [address] Joni Hand III, MD [address] [place] [address] CRANIOTOMY BONE FLAP EXCISION BRAIN TUMOR SUPRATENTORIAL 05/06/2024 2:45 PM EDT Office Visit Hematology/[facility] [address] [facility] [place] [address] Benja Watkins MD [address] [facility] [place], [place] [address] 08/02/2024 8:20 AM EST [facility] [address] [place] [address] Martin Solorio MD [address], [place] [address] 10/05/2024 12:30 PM EDT Telemedicine Care at Home [address] [place] [address] Kori Dumont PA-C [address] [place] [address] 02/14/2025 8:00 AM EDT Imaging Radiology [facility] 1st [facility] [address] [place] [address] Scheduled Procedures Name Priority Associated Diagnoses Date/Ti [...] 09/10/2023 DISCUSS TOBACCO CESSATION (REFER TO SMARTSET #5031) 01/28/2025 01/29/2024 GFR 01/28/2025 01/29/2024, 08/21, 08/08/2023, [...] this encounter Medical Devices Implanted Type Area Glass Installer Device Identifier Shelf Expiration Date Model / Serial / Lot Cover [place] Hole 24mm 421.528 - [id number] Implanted:Qty: 1 on 08/20/2021 by Joni Hand III, MD at OR [facility] Right: Head SYNTHES MAXILLOFACIAL 421.528 / / Plate Y Ti Lo Db 6h 21 421.517 - [id number] Implanted:Qty: 1 on 08/20/2021 by Joni Hand III, MD at OR [facility] Right: Head SYNTHES MAXILLOFACIAL 421.517 / / Screw Ti Lo Pro Sd 4mm 400.834 - [id number] Implanted:Qty: 10 on 08/20/2021 by Joni Hand [...] study not interpreted or resulted by a [employer] [facility] nor[facility] streeter or [employer] contracted radiologist. Joni Hand III, MD RAD [...] Directives occurred with: Not Discussed Care Teams Contact Center Agent Relationship Specialty Start Date End Date Martin Solorio MD [address] [place] [facility] [place] [address] PCP - General Family Medicine 02/20/21 documented as of this encounter
--- OUTSIDE RECORDS SUMMARY | 2024-04-11 11:05 | External Medical Summary ---
Author Name Unknown Address Unknown Organization K01:[facility] [address] [place] [address] Laboratory Report Ordering Provider Test Date Status SARAH DASH IV 03/01/2024 13:16:00 Final Observation Date Value Abnormality Reference (Units ) Status BUN 03/01/2024 13:16:00 18 6-20 (mg/dL) Final Creatinine 03/01/2024 13:16:00 0.7 0.5-1.0 (mg/dL) Final Glomerular filtration rate/1.73 sq M.predicted [Volume Rate/Area] in Serum, Plasma or Blood by Creatinine-based formula (CKD-EPI) 03/01/2024 13:16:00 >90 >=60 (mL/min) Final eGFR is calculated based on the CKD-EPI 2020 equation. Sodium 03/01/2024 13:16:00 138 135-146 (m mol/L) Final Potassium 03/01/2024 13:16:00 3.3 Below low normal 3.5 -5.1 (mmol/L) Final Cl 03/01/2024 13:16:00 100 98-107 (mm ol/L) Final CO2 03/01/2024 13:16:00 25 22-32 (mmo l/L) Final Anion gap 03/01/2024 13:16:00 13 7-15 (mmol /L) Final Glucose 03/01/2024 13:16:00 127 Above high normal 70 -120 (mg/dL) Final Calcium 03/01/2024 13:16:00 9.0 8.4-10.2 ( mg/dL) Final Performing Location [facility] - [address] [place] [address]
--- OUTSIDE RECORDS SUMMARY | 2024-04-11 11:05 | External Medical Summary | Summary of Care ---
Author Name Unknown Organization [facility] Address [address] [place] [address] Phone [phone] Care Team Providers Care Bailiff Name Role Phone Martin Solorio MD Primary Care Provider [phone] Encounter Details Date Type Department Care Team (Late st Contact Info) Description 02/26/2024 Orders Only Neurosurgery, [place] [address] [place] [address] Joni Hand III, MD [address] [place] [address] Allergies Active Allergy Reactions Criticality [...] AM EDT Pharmacy Pharmacy Hematology Oncology [facility] [address] [place] [address] [facility], [facility] Hem/Onc [address] [place] [address] 03/03/2024 8:00 AM EDT - 03/03/2024 12:47 PM EDT Surgery [place] [facility] [address] [place] [address] Joni Hand III, MD [address] [place] [address] CRANIOTOMY BONE FLAP EXCISION BRAIN TUMOR SUPRATENTORIAL 03/15/2024 10:15 AM EDT Office Visit Neurosurgery, [place] [address] [place] [address] Clinic, Brain Tumor Multidisciplinar y [address] [place] [address] 05/06/2024 2:45 PM EDT Office Visit Hematology/Oncology [facility] [address] [facility] [place] [address] Benja Watkins MD [address] [facility] [place] [address] 08/02/2024 8:20 AM EST Office Visit [facility] [address] [place] [address] Martin Solorio MD [address] [place] [address] 10/05/2024 12:30 PM EDT Telemedicine Care at Home [address] [place] [address] Kori Dumont PA-C [address] [place] [address] 02/14/2025 8:00 AM EDT Imaging Radiology [facility] 1st [facility] [address] [place] [address] Scheduled Procedures Name Priority Associated Diagnoses Date/Ti [...] After Education) Hepatitis C Screening 07/20/2024 Postpo liuz from 1976 (Patient Declined After Education) O2 [...] this encounter Medical Devices Implanted Type Area Machine Brush Maker Device Identifier Shelf Expiration Date Model / Serial / Lot Cover Nilda Hole 24mm 421.528 - [id number] Implanted:Qty: 1 on 08/20/2021 by Joni Hand III, MD [place] [facility] Right: Head SYNTHES MAXILLOFACIAL 421.528 / / Plate Y Ti Lo Db 6h 21 421.517 - [id number] Implanted:Qty: 1 on 08/20/2021 by Joni Hand III, MD [place] [facility] Right: Head SYNTHES MAXILLOFACIAL 421.517 / / Screw Ti Lo Pro Sd 4mm 400.834 - [id number] Implanted:Qty: 10 on 08/20/2021 by Joni Hand III, MD [place] [facility] Right: Head SYNTHES MAXILLOFACIAL 400.834 / / [...] interpreted or resulted by a [facility] or [employer] contracted radiologist. Joni Hand III, MD RAD [...] and were consensually agreed upon. Care Teams Bailiff Relationship Specialty Start Date End Date Martin Solorio MD [address] [address] PCP - General Family Medicine 02/20/21 documented as of this encounter
--- OUTSIDE RECORDS SUMMARY | 2024-04-11 11:05 | External Medical Summary | Summary of Care ---
Author Name Unknown Organization [facility] Address [address] [place] [address] Phone [phone] Care Team Providers Care Outreach Specialist Name Role Phone Martin Solorio MD Primary Care Provider [phone] Encounter Details Date Type Department Care Team (Late st Contact Info) Description 02/26/2024 Orders Only Neurosurgery, [place] [address] [place] [address] Joni Hand III, MD [address] [place] [address] Allergies Active Allergy Reactions Criticality [...] region 09/30/2023 Coronary artery disease invo lving [place] coronary artery of [place] heart without angina pectoris 09/30/2023 Pulmonary nodules [...] [facility] [address] [place] [address] [facility], [facility] Hem/Onc [address] [place] [address] 03/03/2024 8:00 AM EDT - 03/03/2024 12:47 PM EDT Surgery [place] [facility] [facility] [facility] [address] [place] [address] Joni Hand III, MD [address] [place] [address] CRANIOTOMY BONE FLAP EXCISION BRAIN TUMOR SUPRATENTORIAL 05/06/2024 2:45 PM EDT Office Visit Hematology/Oncology [facility] [address] [facility] [place] [address] Benja Watkins MD [address] [facility] [place], [place] [address] 08/02/2024 8:20 AM EST Office Visit [facility] [address] [place] [address] Martin Solorio MD [address] [place], [place] [address] 10/05/2024 12:30 PM EDT Telemedicine Care at Home [address] [place] [address] Kori Dumont PA-C [address] [place] [address] 02/14/2025 8:00 AM EDT Imaging Radiology [facility] 1st [facility] [address] [place] [address] Scheduled Procedures Name Priority Associated Diagnoses Date/Ti [...] 09/10/2023 DISCUSS TOBACCO CESSATION (REFER TO SMARTSET #6511) 01/28/2025 01/29/2024 GFR 01/28/2025 01/29/2024, 08/21, 08/08/2023, [...] encounter Medical Devices Implanted Type Area Machine Heel Seat Laster Device Identifier Shelf Expiration Date Model / Serial / Lot Cover [place] Hole 24mm 421.528 - [id number] Implanted:Qty: 1 on 08/20/2021 by Joni Hand III, MD [place] [facility] Right: Head SYNTHES MAXILLOFACIAL 421.528 / / Plate Y Ti Lo Db 6h 21 421.517 - [id number] Implanted:Qty: 1 on 08/20/2021 by Joni Hand III, MD [place] [facility] Right: Head SYNTHES MAXILLOFACIAL 421.517 / / Screw Ti Lo Pro Sd 4mm 400.834 - [id number] Implanted:Qty: 10 on 08/20/2021 by Joni Hand III, MD at [place] [facility] Right: Head SYNTHES MAXILLOFACIAL [...] study not interpreted or resulted by a Leostreamwarren general hospitaler or [employer] contracted radiologist. Joni Hand III, MD RAD [...] Directives occurred with: Not Discussed Care Teams Outreach Specialist Relationship Specialty Start Date End Date Martin Solorio MD [address] [place] [facility] [place] [address] PCP - General Family Medicine 02/20/21 documented as of this encounter
--- OUTSIDE RECORDS SUMMARY | 2024-04-11 11:05 | External Medical Summary ---
Author Name Unknown Address Unknown Organization K01:[facility] [place] - [facility] [address] [facility] [address] [facility] [address] Laboratory Report Ordering Provider Test Date Status SARAH DASH IV 03/01/2024 13:16:00 Final Observation Date Value Abnormality Reference (Units ) Status WBC, Total 03/01/2024 13:16:00 7.95 4.00-10.80 (K/uL) Final RBC 03/01/2024 13:16:00 4.27 3.85-5.15 (M/uL) Final Hemoglobin 03/01/2024 13:16:00 13.5 12.0-15.3 (g/dL) Final HCT 03/01/2024 13:16:00 40.1 36.0-45.2 (%) Final MCV 03/01/2024 13:16:00 93.9 81.5-97.5 (fL) Final MCH 03/01/2024 13:16:00 31.6 27.0-34.0 (pg) Final MCHC 03/01/2024 13:16:00 33.7 32.0-36.0 (g/dL) Final RDW 03/01/2024 13:16:00 14.4 11.5-15.5 (%) Final Platelets 03/01/2024 13:16:00 334 140-400 (K/uL) Final MPV 03/01/2024 13:16:00 9.3 6.6-11.1 (fL) Final Nucleated erythrocytes/100 leukocytes [Ratio] in Blood by Automated count 03/01/2024 13:16:00 0 <=0 (/100 WBCs) Final Performing Location [facility] [place] - [address] [place] [address]
--- OUTSIDE RECORDS SUMMARY | 2024-04-11 11:05 | External Medical Summary | Summary of Care ---
Author Name Unknown Organization [facility] Address [address] [place] [address] Phone [phone] Care Team Providers Care Television Producer Name Role Phone Martin Solorio MD Primary Care Provider [phone] Reason for Visit * Reason Onset Date Comments Test Results 02/20/2024 Unexpected or In determinate Result Encounter Details Date Type Department Care Team (Late st Contact Info) Description 02/20/2024 Telephone [facility] [address] [place] [address] José Luis Paul IV, PA-C [address] [place] [address] Test Results (Unexpected or Indeterminate [...] region 09/30/2023 Coronary artery disease invo lving [place] coronary artery of [place] heart without angina pectoris 09/30/2023 Pulmonary nodules [...] Telephone Encounter - Kori Bailey LPN - 03/01/2024 8:04 AM EDT Called patient, no answer, left message requesting she call back at [phone] to let us know if she can make the appointment today at 10:15 am. * Telephone Encounter - Kori Bailey LPN - 02/26/2024 1:23 PM EDT Called patient's mobile number, no answer, left message stating that I received an answer from Vinh FROST that stated she should be seen in [facility] on Friday03/01/24. I stated that I have scheduled her for the appointment in [place] at 10:15 am on Friday03/01/24 on D2, she is to take the D elevator to the 2nd floor and that opens into our waiting room. [employer]er message sent regarding above. Called patient's home number, no answer, left message stating that I received an answer from José Luis Paul PA-C that stated she should be seen in [facility] on Friday03/01/24. I stated that I have scheduledher for the appointment in [place] at 10:15 am on Friday03/01/24 and sent a [employer] message regarding this. I requested she call me at [phone] with any questions regarding this matter. * Telephone Encounter - Kori Bailey LPN - 02/24/2024 4:48 PM EDT Received a message from José Luis Paul PA-C stated that she should be seen in [facility] unfortunately as her scan is worse. Called patient back, spouse Kwame answered. He stated that patient is asleep at present. I stated that I was calling back to schedule her for an appointment on Friday03/01/24 at 10:15 am in [facility]. I stated that I spoke with her earlier and was waiting to see if her appointment could be on Friday when she is scheduled to be in [place] for a dermatology appointment but was told she needs to be seen in the [facility] clinic. He stated that she has a lot of appointments and that I should call back tomorrow. I stated that I will. * Telephone Encounter - Kori Bailey LPN - 02/24/2024 3:32 PM EDT Called patient, Patient identified by name and date of . Informed her I was calling to schedule her for an appointment on Friday03/01/24 in [facility] per José Luis Paul PA-C. She stated that she is scheduled for an appointment in [place] on Friday03/02/24 and wanted to know if [...] unexpected or indeterminate finding on Judy Garcia ([id number]) and asks that you review the following [...] MAGI Acuna Client Service Rep Diagnostic [facility] [place] documented in this encounter Plan of Treatment Upcoming Encounters Date Type Department Care Team (Late st Contact Info) Description 03/01/2024 10:15 AM EDT Office Visit Neurosurgery, [place] [address] [place] [address] Clinic, Brain Tumor Multidisciplinary [address] [place] [address] 03/02/2024 9:45 AM EDT Pharmacy Pharmacy Hematology Oncology [facility], [place] [address] [place] [address] [facility] Hem/Onc [address] [place] [address] 05/06/2024 2:45 PM EDT Office [facility] [place] [address] [facility] [place] [address] Benja Watkins MD [address] [facility] [place] [address] 08/02/2024 8:20 AM EST Office Visit [facility] [address] [place] [address] Martin Solorio MD [address] [place], [place] [address] 10/05/2024 12:30 PM EDT Telemedicine Care at Home [address] [place] [address] Kori Dumont PA-C [address] [place] [address] 02/14/2025 8:00 AM EDT Imaging Radiology [address] [address] Scheduled Procedures Name Priority Associated Diagnoses Date/Ti [...] this encounter Medical Devices Implanted Type Area Store Person Device Identifier Shelf Expiration Date Model / Serial / Lot Cover Nilda Hole 24mm 421.528 - [id number] Implanted:Qty: 1 on 08/20/2021 by Joni Hand III, [place] [facility] [place]: Head SYNTHES MAXILLOFACIAL 421.528 / / Plate Y Ti Lo Db 6h 21 421.517 - [id number] Implanted:Qty: 1 on 08/20/2021 by Joni Hand III, MD [place] [facility] Right: Head SYNTHES MAXILLOFACIAL 421.517 / / Screw Ti Lo Pro Sd 4mm 400.834 - [id number] Implanted:Qty: 10 on 08/20/2021 by Joni Hand [...] Directives occurred with: Not Discussed Care Teams Television Producer Relationship Specialty Start Date End Date Martin Solorio MD [address] [place] [address] PCP - General Family Medicine 02/20/21 documented as of this encounter
--- OUTSIDE RECORDS SUMMARY | 2024-04-11 11:05 | External Medical Summary | Summary of Care ---
Author Name Unknown Organization [facility] Address [address] [place] [address] Phone [phone] Care Team Providers Care Research Animal Facility Supervisor Name Role Phone Martin Solorio MD Primary Care Provider [phone] Encounter Details Date Type Department Care Team (Late st Contact Info) Description 02/26/2024 Orders Only Neurosurgery, [place] [address] [place] [address] Joni Hand III, MD [address] [place] [address] Allergies Active Allergy Reactions Criticality [...] region 09/30/2023 Coronary artery disease invo lving [place] coronary artery of [place] heart without angina pectoris 09/30/2023 Pulmonary [...] Oncology [facility] [address] [place] [address] [facility], [facility] Hem/Onc [address] [place] [address] 03/03/2024 8:00 AM EDT - 03/03/2024 12:47 PM EDT Surgery OR [facility], OPERATING RO[facility] [address] [place] [address] Joni Hand III, MD [address] [place] [address] CRANIOTOMY BONE FLAP EXCISION BRAIN TUMOR SUPRATENTORIAL 05/06/2024 2:45 PM EDT Office Visit Hematology/Oncology [facility] [address] [place] [address] Benja Watkins MD [address] [facility] [place], [place] [address] 08/02/2024 8:20 AM EST Office Visit [facility] [address] [place] [phone] Martin Solorio MD [address] [place], [place] [address] 10/05/2024 12:30 PM EDT Telemedicine Care at Home [address] [place] [address] Kori Dumont PA-C [address] [place] [address] 02/14/2025 8:00 AM EDT Imaging Radiology [facility] 1st [facility] [address] [place] [address] Scheduled Procedures Name Priority Associated Diagnoses Date/Ti [...] 09/10/2023 DISCUSS TOBACCO CESSATION (REFER TO SMARTSET #2401) 01/28/2025 01/29/2024 GFR 01/28/2025 01/29/2024, 08/21, 08/08/2023, [...] this encounter Medical Devices Implanted Type Area Airline Security Representative Device Identifier Shelf Expiration Date Model / Serial / Lot Cover [place] Hole 24mm 421.528 - [id number] Implanted:Qty: 1 on 08/20/2021 by Joni Hand III, MD at [place] [facility] [place] [facility] Right: Head SYNTHES MAXILLOFACIAL 421.528 / / Plate Y Ti Lo Db 6h 21 421.517 - [id number] Implanted:Qty: 1 on 08/20/2021 by Joni Hand III, MD at [place] [facility] [place] [facility] Right: Head SYNTHES MAXILLOFACIAL 421.517 / / Screw Ti Lo Pro Sd 4mm 400.834 - [id number] Implanted:Qty: 10 on 08/20/2021 by Joni Hand III, MD at [place] [facility] [place] [facility] Right: Head SYNTHES [...] study not interpreted or resulted by a G-[facility]olutiondan[facility] state hospitaler or [employer] contracted radiologist. Joni Hand III, MD RAD [...] Directives occurred with: Not Discussed Care Teams Research Animal Facility Supervisor Relationship Specialty Start Date End Date Martin Solorio MD [address] [place] [facility] [place] [address] PCP - General Family Medicine 02/20/21 documented as of this encounter
--- OUTSIDE RECORDS SUMMARY | 2024-04-11 11:05 | External Medical Summary | Summary of Care ---
Author Name Unknown Organization [facility] Address [address] [place] [address] Phone [phone] Care Team Providers Care Oracle Ebs Architect Name Role Phone Martin Solorio MD Primary Care Provider [phone] Encounter Details Date Type Department Care Team (Late st Contact Info) Description 02/26/2024 Orders Only Neurosurgery, [place] [address] [place] [address] Joni Hand III, MD [address] [place] [address] Allergies Active Allergy Reactions Criticality [...] region 09/30/2023 Coronary artery disease invo lving [place] coronary artery of [place] heart without angina pectoris 09/30/2023 Pulmonary nodules [...] [facility] [address] [place] [address] [facility] Hem[facility]Onc [address] [place] [address] 03/03/2024 8:00 AM EDT - 03/03/2024 12:47 PM EDT Surgery [place] [facility] [address] [place] [address] Joni Hand III, MD [address] [place] [address] CRANIOTOMY BONE FLAP EXCISION BRAIN TUMOR SUPRATENTORIAL 05/06/2024 2:45 PM EDT Office Visit Hematology/Oncology [facility] [address] [facility] [place] [address] Benja Watkins MD [address] [facility] [place], [place] [address] 08/02/2024 8:20 AM EST Office Visit [facility] [address] [place] [phone] Martin Solorio MD [address] [place], [place] [address] 10/05/2024 12:30 PM EDT Telemedicine Care at Home [address] [place] [address] Kori Dumont PA-C [address] [place] [address] 02/14/2025 8:00 AM EDT Imaging Radiology [facility] 1st [facility] [address] [place] [address] Scheduled Procedures Name Priority Associated Diagnoses Date/Ti [...] 09/10/2023 DISCUSS TOBACCO CESSATION (REFER TO SMARTSET #4861) 01/28/2025 01/29/2024 GFR 01/28/2025 01/29/2024, 08/21, 08/08/2023, [...] this encounter Medical Devices Implanted Type Area Deep Fryer Assembler Device Identifier Shelf Expiration Date Model / Serial / Lot Cover [place] Hole 24mm 421.528 - [id number] Implanted:Qty: 1 on 08/20/2021 by Joni Hand III, MD [place] [facility] Right: Head SYNTHES MAXILLOFACIAL 421.528 / / Plate Y Ti Lo Db 6h 21 421.517 - [id number] Implanted:Qty: 1 on 08/20/2021 by Joni Hand III, MD at [place] [facility] Right: Head SYNTHES MAXILLOFACIAL 421.517 / / Screw Ti Lo Pro Sd 4mm 400.834 - [id number] Implanted:Qty: 10 on 08/20/2021 by Joni Hand III, MD at [place] [facility] Right: Head SYNTHES MAXILLOFACIAL 400.834 / / [...] study not interpreted or resulted by a [employer] or [employer] contracted radiologist. Joni Hand III, MD RADIOLOGY [...] Directives occurred with: Not Discussed Care Teams Oracle Ebs Architect Relationship Specialty Start Date End Date Martin Solorio MD [address] [facility] [place] [address] PCP - General Family Medicine 02/20/21 documented as of this encounter
--- OUTSIDE RECORDS SUMMARY | 2024-04-11 11:05 | External Medical Summary ---
Author Name Unknown Address Unknown Organization K01:LABORATORY [facility] [place] - [address] [facility] [place] [address] Laboratory Report Ordering Provider Test Date Status SARAH DASH IV 03/01/2024 13:16:00 Final Observation Date Value Abnormality Reference (Units ) Status SYNC LEUKOCYTES IN BLOOD BY AUTOMATED COUNT 03/01/2024 13:16:00 7.95 4.00-10.80 (K/uL) Final Segs 03/01/2024 13:16:00 75.6 Above high normal 40.0-75.0 (%) Final Lymphs % 03/01/2024 13:16:00 16.9 Below low normal 18.0-42.0 (%) Final Monos 03/01/2024 13:16:00 6.8 1.0-11.0 (%) Final Eosinophils 03/01/2024 13:16:00 0.1 0.0-6.0 (%) Final Basos 03/01/2024 13:16:00 0.3 0.0-2.0 (%) Final Immature Granulocyte, Percent 03/01/2024 13:16:00 0.3 0.0-2.0 (%) Final Absolute Segs 03/01/2024 13:16:00 6.02 1.80-7.70 (K/uL) Final Lymphs, absolute 03/01/2024 13:16:00 1.34 1.00-4.80 (K/ul) Final Monos, Abs 03/01/2024 13:16:00 0.54 0.00-1.10 (K/uL) Final Eos, Abs 03/01/2024 13:16:00 0.01 0.00-0.70 (K/uL) Final Basos, Abs 03/01/2024 13:16:00 0.02 0.00-0.20 (K/uL) Final Immature Granulocytes, Number 03/01/2024 13:16:00 0.02 0.00-0.20 (K/uL) Final Performing Location LABORATORY [facility] [place] - [facility] [place] [address]
--- OUTSIDE RECORDS SUMMARY | 2024-04-11 11:05 | External Medical Summary | Summary of Care ---
Author Name Unknown Organization [facility] Address [address] [place] [address] Phone [phone] Care Team Providers Care Management Consulting Name Role Phone Martin Solorio MD Primary Care Provider [phone] Reason for Visit * Reason Onset Date Comments Other 03/01/2024 Admit from clini c Encounter Details Date Type Department Care Team (Late st Contact Info) Description 03/01/2024 Telephone [facility] [address] [place] [address] Joni Hand III, MD [address] [place] [address] Other (Admit from clinic) Allergies Active Allergy Reactions Criticality Noted Date [...] Suspended Cephalexin 250 MG Oral Capsule (Keflex) 4 Suspended Famotidine 20 MG Oral Tablet [...] No 09/16/2023 Does the household have a [facility] source of income? (Household - for [...] encounter Miscellaneous Notes * Telephone Encounter - Danyelle Arroyo OSA - 03/01/2024 10:36 AM EDT I called and spoke with Fozia in patient placement. Patient to be admitted from clinic. Patient placement will call me when a bed becomes available. Dr. Hand and José Luis Paul are aware that request is being worked on. Thank you, Thomas OR [facility] [employer] Senior Neurosurgery [phone] documented in this encounter Plan of Treatment Upcoming Encounters Date Type Department Care Team (Latest Contact Info) Description 03/02/2024 9:45 AM EDT Pharmacy Pharmacy Hematology Oncology [facility] [address] [place] [address] [facility] Hem/Onc [address] [place] [address] 03/03/2024 8:00 AM EDT - 03/03/2024 12:47 PM EDT Surgery OR C, OPERATING ROOM [facility] [address] [place] [phone] Joni Hand III, MD [address], [place] [id number] CRANIOTOMY BONE FLAP EXCISION BRAIN TUMOR SUPRATENTORIAL 05/06/2024 2:45 PM EDT Office Visit Hematology/Oncology [facility] [address] [facility] [place] [phone] Benja Watkins MD [address] [facility] [place] [address] 08/02/2024 8:20 AM EST Office Visit [facility] [address] [place] [address] Martin Solorio MD [address], [place] [phone] 10/05/2024 12:30 PM EDT Telemedicine Care at Home [address], [place] [phone] Kori Dumont PA-C [address] [place] [address] 02/14/2025 8:00 AM EDT Imaging Radiology [facility] [address]st [facility] [place] [address] [facility] [place] [address] Scheduled Procedures Name Priority Associated Diagnoses Date/Ti [...] 09/10/2023 DISCUSS TOBACCO CESSATION (REFER TO SMARTSET #8298) 01/28/2025 01/29/2024 GFR 01/28/2025 01/29/2024, 08/21, 08/08/2023, [...] this encounter Medical Devices Implanted Type Area Gas Attendant Device Identifier Shelf Expiration Date Model / Serial / Lot Cover [place] Hole 24mm 421.528 - [id number] Implanted:Qty: 1 on 08/20/2021 by Jnoi Hand III, MD at [place] [facility] Right: Head [employer]ILL[employer] 421.528 / / Plate Y Ti Lo Db 6h 21 421.517 - [id number] Implanted:Qty: 1 on 08/20/2021 by Joni Hand III, MD at [place] [facility] Right: Head [employer] MAXILL[employer]IAL 421.517 / / Screw Ti Lo Pro Sd 4mm 400.834 - [id number] Implanted:Qty: 10 on 08/20/2021 by Joni Hand [...] Directives occurred with: Not Discussed Care Teams Management Consulting Relationship Specialty Start Date End Date Martin Solorio MD [address] [place] [address] PCP - General Family Medicine 02/20/21 documented as of this encounter
--- OUTSIDE RECORDS SUMMARY | 2024-04-11 11:05 | External Medical Summary ---
Author Name Unknown Address Unknown Organization K01:LABORATORY [facility] [place] - [facility] [address] [facility] [address] [facility] [address] Laboratory Report Ordering Provider Test Date Status [...] in Specimen by LAMONTE with probe detection 03/01/2024 13:32:22 Negative Negative Final No Staphylococcus aureus det ected by PCR (amplified probe). Performing Location LABORATORY [facility] [place] - [address] [facility] [address]
--- OUTSIDE RECORDS SUMMARY | 2024-04-11 11:06 | External Medical Summary | Summary of Care ---
Author Name Unknown Organization [facility] Address [address] [facility] [address] Phone [phone] Care Team Providers Care Care Information Associate Name Role Phone Martin Solorio MD Primary Care Provider [phone] Encounter Details Date Type Department Care Team (Late st Contact Info) Description 03/01/2024 Population Health External Data Unspecified Department Allergies [...] region 09/30/2023 Coronary artery disease invo lving [place] coronary artery of [place] heart without angina pectoris 09/30/2023 Pulmonary nodules [...] of inactive term ACUTE SINUSITIS NOS 09/06/2006 02/19/20 09 Overview: Resolved per Benign Acute Dxs [...] 03/01/2024 10:15 AM EDT Office Visit Neurosurgery, [place] [address] [place] [address] Clinic, Brain Tumor Multidisciplinary [address] [place] [address] 03/02/2024 9:45 AM EDT Pharmacy Pharmacy Hematology Oncology [facility] [address] [place] [address] [facility] [address] [place] [address] 05/06/2024 2:45 PM EDT Office Visit Hematology/Oncology [facility] [address] [place] [phone] Benja Watkins MD [address] [place] [address] 08/02/2024 8:20 AM EST Office Visit [address] [place] [phone] Martin Solorio MD [address], [place] [phone] 10/05/2024 12:30 PM EDT Telemedicine Care at Home [address] [place] [address] Kori Dumont PA-C [address] [place] [address] 02/14/2025 8:00 AM EDT Imaging Radiology [facility] [address] [facility] [place] [address] [place] [address] Scheduled Procedures Name Priority Associated Diagnoses Date/Ti [...] 09/10/2023 DISCUSS TOBACCO CESSATION (REFER TO SMARTSET #6294) 01/28/2025 01/29/2024 GFR 01/28/2025 01/29/2024, 08/21, 08/08/2023, [...] this encounter Medical Devices Implanted Type Area [employer] 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.] Directives occurred with: Not Discussed Care Teams Care Information Associate Relationship Specialty Start Date End Date Martin Solorio MD [address] [facility] [place] [address] PCP - General Family Medicine 02/20/21 documented as of this encounter
--- NOTE | 2024-04-11 11:45 | Emergency Department Note ---
Impression & Plan Acute hypotension, Weakness, Acute UTI (urinary tract infection) ED Provider Note Name: LIGIA ROWE Age: 63 Sex: Female Arrives Via: Ambulance Informant: Patient, EMS, nursing staff ED Provider: Reinier Obrien MD Chief Complaint: Weakness Impression: As per impressions above Medical Decision Makin-year-old female with known brain cancer reportedly currently on chemoradiation management. She arrives for evaluation of severe weakness following a fall at home. Did not strike her head. Complaining of some right hip discomfort. CT of the head is consistent with previous resection no evidence of bleed or other concerning findings. X-ray of the hip does not reveal any clear evidence of fracture. She is feeling bit better after laying in bed for a bit. Of note patient was hypotensive on arrival. Given her history a broad-spectrum workup was obtained including blood cultures. She is given a liter of normal saline while awaiting laboratory workup. Procalcitonin is moderately elevated however white blood cell count and lactic acid are both within normal range. Urinalysis is questionable for infection. Given the initial hypotension and UTI findings I do think it is reasonable to treat with broad-spectrum antibiotics while awaiting further laboratory and other workup. She was given a small dose of Dilaudid for that right hip pain. Given her degree of weakness hospitalist was consulted for further management. Patient is comfortable with this plan. I am suspicious that hypotension is more malnutrition/dehydration rather than true severe septic/septic shock. Triage/Nursing Notes reviewed by Me External Chart Review by me: 03/24/24 cancer appointment reveals that patient does have metastatic melanoma and is currently undergoing treatment. Differential:Infection, dehydration, metabolic abnormality, hypo/hyperglycemia, electrolyte disturbance, anemia, hypoxia, cardiac sources, intracerebral event, toxicologic, neurologic, as well as other pathologies. Vital Signs: reviewed and remarkable for hypotension Interventions: Normal saline bolus 1 L IV, Dilaudid 0.25 mg IV, Zosyn 4.5 g IV Labs:ED labs Reviewed by me and remarkable for elevated procalcitonin, questionable UA for infection. Elevated BUN Imagin view chest x-ray no infiltrate nor effusion appreciated. As per my interpretation. X-rays of the right hip reveal no evidence of fracture or dislocation. As per my interpretation CT of the head without contrast as per radiologist read stable postoperative findings without evidence of bleed. EKG: As per my interpretation. Indication weakness. Normal sinus rhythm at 77 bpm QTc of 402. Similar to EKG of February 27, 2024. There is no ectopy nor ischemia. Cardiac/Tele Monitoring: Cardiac Monitoring: An Order was placed for continuous cardiac monitoring. The monitor shows a rate of 70 with a normal sinus rhythm. Consults:Discussed with [facility] who will further evaluate the patient for management. Plan: Disposition:Hospitalization. Condition: Fair History of Present Illness: 63-year-old female arrives for evaluation of weakness. Patient fell to the ground this morning due to weakness. Complaining of right hip pain. Also complaining of feeling fatigued. Patient has not been eating well the last few days. She is not taking care of herself. She does have a current brain tumor that she is being managed for with radiation and chemotherapy. Denies any fevers chills. She is not having any chest pain, shortness of breath. She does not remember the fall. 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 Past Medical History:See Below Home Medications:See Below Allergies:See Below Vitals:Blood Pressure: 78/63, Pulse 77, RR 20, T 37.4C, O2 92% on RA Physical Exam: GENERAL: Patient is tired/dehydrated appearing and in mild distress. Disheveled and somewhat confused HEAD: AT/NC RESPIRATORY: No dyspnea. Clear to auscultation and equal bilaterally. CARDIOVASCULAR: Regular rate and rhythm.No murmur appreciated. GASTROINTESTINAL: Abdomen soft, non-tender, no peritonitis. EXTREMITIES: Pain with ROM right hip and TTP over right bursa hip. Otherwise unremarkable exam with good pulses/sensation NEUROLOGIC: Alert and oriented. No focal neurologic deficits appreciated SKIN: No rash, no jaundice, no diaphoresis. PSYCH: Appropriate GCS: 15 ED Course: Times/Reassessments: Blood pressure significantly improved with initial fluid resuscitation. Patient is awake alert oriented answering questions and comfortable with plan for hospitalization. Critical Care: I have personally spent 30 minutes of critical care time in the direct management of this patient. Acute hypotension requiring resuscitation and extensive workup and evaluation.. This was a life/limb threatening event. This 30 minutes is in excess of all separately billable procedures. Reinier Obrien MD Past Med/Surg History Problem List (Updated 04/11/24 @ 15:45 by Reinier Obrien MD) Acute UTI (urinary tract infection) (Acute) Weakness (Acute) Acute hypotension (Acute) Hypothyroidism Suspected UTI Combined receptive and expressive aphasia Hypokalemia Myocardial infarction due to demand ischemia CHI (closed head injury) (Acute) Ground-level fall (Acute) Elevated troponin (Acute) Vasogenic edema (Acute) AMS (altered mental status) (Acute) Memory changes Balance problems Melanoma metastatic to brain (Chronic) Medical History (Updated 04/11/24 @ 15:45 by Reinier Obrien MD) Seizure disorder History of melanoma October 2017 --diag with superficial spreading melanoma of the left leg, [id number], Stage IIIc. 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 S/p re-excision and SLNB 12/26/2017 (-margins; 3 of 3 nodes involved) S/p nivolumab 02/04 - 04/08 S/p right parietal craniotomy for near total resection 08/20/2021 S/p Radiation therapy to brain mets, including post op bed; Aug -September 2021 S/p dabrafinib and trametinib 10/09 --dose reduced in mid 2021; ongoing Rx Jul 2022--SRS to left frontal lobe Aug 2023--s/p ALYSHA and bx of Left Frontal mass. Path-- brain parenchyma with reactive gliosis.Negative for malignancy. MRI feb 20, 2024--Parenchymal abnormality at the treatment site measuring 1.9 cm, not fully characterized. Surrounding vasogenic edema and mild mass effect, increased since pretreatment imaging. 03/03/2024--s/p L frontal craniotomy for resection ( Dr Hand) ; path showed Residual/recurrent metastatic melanoma No pertinent past medical history Surgical History (Updated 03/24/24 @ 11:41 by Josie Chung RN) S/P craniotomy Dr. Hand [facility] Neurosurgery 03/03/24 Left frontal craniotomy for tumor resection with vycor tube and dynamic retraction, use of brainlab neuronavigation, use of neurophysiological monitoring (SSEP/MEP/motor language, subcortical stimulation) Status post right foot surgery History of knee replacement procedure of left knee History of partial hysterectomy H/O craniotomy History of back surgery History of brain surgery x2 Hx of cholecystectomy Family History Grandfather (Maternal) Cancer Breast cancer Sister Cancer Breast cancer Father Cancer Colon cancer Social History Smoking Status: Current every day smoker Tobacco Type: Cigarettes Cigarettes Per Day: 13; Hx Alcohol Use: No Hx Substance Use: No Preferred Language: Chinese Communication Ability: Impaired Visual Impairment: No Limitations Hearing Ability: Normal Combustion Engineer Required: No Beliefs That Will Affect Care: None marital status: Current Living Situation: Spouse current occupational status: employed 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 [employer] Feels Safe at Home: Yes Physical Activity Frequency: Does not Exercise Assistive Devices: Walker Allergies Allergies Allergy/AdvReac Type Severity Reaction Status Date / Time erythromycin base Allergy Unknown BROUGHT ON Verified 04/11/24 14:58 SEIZURES Macrolide Antibiotics Allergy Unknown Unknown Verified 04/11/24 14:58 Home Meds Home Medications Medication Instructions Recorded Confirmed trazodone 100 mg tablet 150 mg PO HS 08/17/21 04/11/24 multivitamin 1 tab PO QAM 08/30/21 04/11/24 paroxetine HCl 40 mg tablet 40 mg PO QAM 08/30/21 04/11/24 ondansetron HCl 8 mg tablet 8 mg PO BID 12/15/21 04/11/24 dabrafenib 75 mg capsule (Tafinlar) 75 mg PO AMHS 07/30/22 04/11/24 carbamazepine 200 mg 400 mg PO AMHS 11/19/22 04/11/24 tablet,extended release,12 hr atorvastatin 20 mg tablet 20 mg PO QPM 02/27/24 04/11/24 losartan 50 mg tablet 50 mg PO QAM 02/27/24 04/11/24 triamcinolone acetonide 0.1 % 1 applic topical BID 02/27/24 04/11/24 topical cream dexamethasone 4 mg tablet 4 mg PO UD 04/11/24 04/11/24 levothyroxine 175 mcg tablet 175 mcg PO DAILYBB 04/11/24 04/11/24 trametinib 0.5 mg tablet (Mekinist) 1.5 mg PO DAILY 04/11/24 04/11/24 Previous Rx's Medication Instructions Recorded lorazepam 0.5 mg tablet 0.5 mg PO Q6H PRN anxiety #10 tabs 08/11/24 Results & Data (ED) Vital Signs Vital Signs - 24 hr 04/11/24 10:50 04/11/24 11:10 04/11/24 13:00 Temperature 37.4 C Temperature Source Oral Pulse Rate 79 77 Pulse Rate [Left Brachial] 73 Pulse Rhythm [Left Brachial] Regular Pulse Strength [Left Brachial] Normal Respiratory Rate 20 18 Respiratory Effort / Characteristics Non-Labored Respiratory Depth Normal Respiratory Pattern Regular Blood Pressure 78/63 L Blood Pressure [Left Arm] 118/81 Blood Pressure Mean 68 Blood Pressure Mean [Left Arm] 93 Blood Pressure Position [Left Arm] Sitting Pulse Oximetry 92 92 Oxygen Delivery Method Room Air Room Air Sepsis Recent Fever Within 48 Hours No Sepsis New/Unexplained Change in Mental Status No Sepsis Action Taken by Nursing No Action Required Laboratory Data 04/11/24 11:47 04/11/24 11:47 Lab Results 04/11/24 04/11/24 Range/Units 11:47 14:46 WBC 10.21 (4.8-10.8) K/ul RBC 3.91 L (4.20-5.40) M/uL Hgb 12.5 (12.0-16.0) g/dl Hct 38.8 (37.0-47.0) % MCV 99.2 (80.0-100.0) fL MCH 32.0 (25.0-34.0) pg MCHC 32.2 (32.0-36.0) g/dL RDW Std Deviation 61.1 H (36.4-46.3) fL RDW Coeff of Kelvin 17.1 H (11.5-14.5) % Plt Count 329 (130-400) K/uL MPV 8.8 L (9.4-12.4) fL Immature Gran % (Auto) 1.5 % Neut % (Auto) 84.8 % Lymph % (Auto) 7.7 % [place] % (Auto) 4.3 % Eos % (Auto) 1.3 % Baso % (Auto) 0.4 % Neut # (Auto) 8.66 H (1.40-6.50) K/uL Lymph # (Auto) 0.79 L (1.20-3.40) K/uL [place] # (Auto) 0.44 (0.11-0.59) K/uL Eos # (Auto) 0.13 (0.00-0.50) K/uL Baso # (Auto) 0.04 (0.00-0.20) K/uL Immature Gran # (Auto) 0.15 (0.01-0.20) K/uL Sodium 140 (136-145) mmol/L Potassium 3.9 (3.5-5.1) mmol/L Chloride 106 (98-107) mmol/L Carbon Dioxide 29 (21-32) mmol/L Anion Gap 5 (3-11) BUN 33 H (6-23) mg/dl Creatinine 0.91 (0.6-1.2) mg/dl Est Cr Clr Drug Dosing 53.1 ml/min Est GFR ( Amer) 76.7 ml/min Est GFR (Non-Af Amer) 66.2 ml/min BUN/Creatinine Ratio 36.3 H (10-20) Glucose 100 H (70-99(Fasting)) mg/dl Lactate 1.1 (0.4-2.0) mmol/L Calcium 9.0 (8.6-10.3) mg/dl Magnesium 2.2 (1.7-2.4) mg/dl Total Bilirubin 0.7 (0.2-1.0) mg/dl Direct Bilirubin 0.2 (0-0.2) mg/dl AST 33 (13-39) U/L ALT 28 (7-52) U/L Alkaline Phosphatase 164 H (34-104) U/L Total Creatine Kinase 60 (26-192) U/L Troponin I High Sens 7.0 (0-14) pg/ml Total Protein 6.8 (6.0-8.3) gm/dl Albumin 3.4 (3.4-5.0) gm/dl Lipase 19 (11-82) U/L Procalcitonin 4.27 H (0-0.5) ng/ml Urine Color Dark Yellow Urine Appearance Clear (Clear) Urine pH 5.5 (4.5-7.5) Ur Specific [place] 1.022 (1.000-1.030) Urine Protein Trace H (Negative) Urine Glucose (UA) Negative (Negative) Urine Ketones Trace H (Negative) Urine Blood Negative (Negative) Urine Nitrite Negative (Negative) Urine Bilirubin Negative (Negative) Urine Urobilinogen Negative (Negative) Ur Leukocyte Esterase 2+ H (Negative) Urine WBC (Auto) 11-20 H (0-5) /hpf Urine RBC (Auto) 3-5 H (0-2) /hpf U Hyaline Cast (Auto) 0-2 (0-2) /lpf U Epithel Cells (Auto) 3-5 H (0-2) /hpf Urine Bacteria (Auto) None Seen (None Seen) Administered Medications Discontinued Medications Hydromorphone HCl (Hydromorphone Inj 0.5 Mg/0.5 Ml Syr) 0.25 mg IV NOW STA Stop: 04/11/24 11:43 Last Admin: 04/11/24 11:50 Dose: 0.25 mg Documented By: RAMAN Sodium Chloride (Nss) 1,000 mls @ 999 mls/hr IV .Q1H1M ONE Stop: 04/11/24 12:40 Last Infusion: 04/11/24 12:55 Dose: Infused Documented By: Admin: 04/11/24 11:53 Dose: 999 mls/hr Documented By: RAMAN Piperacillin Sod/Tazobactam Sod (Zosyn) 4.5 gm in 100 mls @ 200 mls/hr IV NOW ONE Stop: 04/11/24 14:07 Last Admin: 04/11/24 15:24 Dose: 200 mls/hr Documented By: [facility] Imaging Data Radiologist's Impression: Head CT 04/11/24 11:40 CT OF THE HEAD WITHOUT CONTRAST CLINICAL HISTORY: Weakness. History of brain mass. COMPARISON STUDY: Head CT February 26, 2024. MRI of the brain February 27, 2024. CT DOSE: 602.38 mGy.cm TECHNIQUE: Helical axial images of the head were obtained without IV contrast. Automated exposure control was utilized for the study. A dose lowering technique was utilized adhering to the principles of ALARA. FINDINGS: There are no findings to suggest acute dural sinus thrombosis or acute territorial infarct. No acute intracranial hemorrhage, midline shift or mass effect is present. Ventricular system is unremarkable. The basal cisterns are patent. A small hypodense left frontal operative bed fluid collection measures 6 mm in thickness. Right temporoparietal hypodensity is unchanged from earlier exams. This is likely treatment related. There are bilateral craniotomies. A 1.6 cm hypodense focus within the left frontal lobe is noted. There is mild adjacent hypodensity. Findings have markedly improved when compared to MRI of March 08, 2024. IMPRESSION: 1. No acute intracranial findings. 2. Interval left-sided craniotomy with small operative bed hypodense fluid collection which is likely postsurgical. 1.6 cm hypodense focus within the left frontal lobe which is likely postsurgical. Mild edema within the left frontal lobe, markedly improved since previous MRI. 3. Otherwise, unchanged appearance of the head. ACT 112: Negative or not required by law. Electronically signed by: Tc Umaña M.D. 04/11/2024 1:30 PM Chest X-Ray 04/11/24 11:41 PORTABLE SUPINE AP CHEST RADIOGRAPH CLINICAL HISTORY: weakness COMPARISON STUDY: Chest radiograph and chest CT February 26, 2024. FINDINGS: Postoperative findings within the spine are incidentally noted. No pneumothorax or pleural effusion is identified on supine exam. Cardiomegaly is unchanged. There is no consolidation. Pulmonary vascularity is normal. IMPRESSION: No acute cardiopulmonary findings. ACT 112: Negative or not required by law. Electronically signed by: Tc Umaña M.D. 04/11/2024 1:25 PM Hip/Pelvis X-Ray 04/11/24 11:42 XR hip RT 2V w pelvis CLINICAL HISTORY: right hip pain s//p fall COMPARISON: Right femur radiographs September 10, 2019. CT of the abdomen and pelvis February 26, 2024. FINDINGS: Sacroiliac joints and symphysis pubis are intact. There are no acute fractures within the pelvis or hips. There is moderate left and moderate right hip osteoarthritis. Moderate to large amount stool within the sigmoid colon and rectum is present. IMPRESSION: No fractures within the pelvis or hips. ACT 112: Negative or not required by law. Electronically signed by: Tc Umaña M.D. 04/11/2024 1:05 PM Discharge Plan Visit Data Chief Complaint: Fall ED Provider: Reinier Obrien Discharge Problem: Acute hypotension, Weakness, Acute UTI (urinary tract infection) Forms Stand Alone Forms: [employer] Prescriptions Prescriptions: No Action multivitamin Tablet 1 tab PO QAM trazodone 100 mg tablet 150 mg PO HS paroxetine HCl 40 mg tablet 40 mg PO QAM carbamazepine 200 mg tablet extended release 12 hr 400 mg PO AMHS Rx Instructions: Take 2 tablets in the morning and 2 tablets at bedtime ondansetron HCl 8 mg tablet 8 mg PO BID Rx Instructions: take 1/2 hr before tafinlar Tafinlar 75 mg capsule 75 mg PO AMHS atorvastatin 20 mg tablet 20 mg PO QPM losartan 50 mg tablet 50 mg PO QAM triamcinolone acetonide 0.1 % cream 1 applic TOPICAL BID lorazepam 0.5 mg Tablet 0.5 mg PO Q6H PRN (Reason: anxiety) Qty: 10 0RF levothyroxine 175 mcg tablet 175 mcg PO DAILYBB Rx Instructions: Pt also has 200mcg on file, asked pt which strength and color and pt stated she takes the one that is purplish looking in color. dexamethasone 4 mg tablet 4 mg PO UD Rx Instructions: Take 4mg by mouth once daily for 5 days 1 hour prior to radiation treatment. Mekinist 0.5 mg tablet 1.5 mg PO DAILY Referrals Referrals: Martin Solorio MD [Primary Care Provider] -
[2024-04-11] MEDS: HYDROmorphone INJ 0.5 MG/0.5 ML SYR IV STA (11:50)
[2024-04-11] MEDS: SODIUM CHLORIDE 0.9% 1,000 ML IV ONE (11:53)
[2024-04-11 12:13] LABS: Basophils # (auto) 0.04 K/uL (0.00-0.20); Basophils % (auto) 0.4 %; Eosinophils # (auto) 0.13 K/uL (0.00-0.50); Eosinophils % (auto) 1.3 %; Hematocrit (blood only) 38.8 % (37.0-47.0); Hemoglobin 12.5 g/dl (12.0-16.0); Immature Granulocytes # (auto) 0.15 K/uL (0.01-0.20); Immature Granulocytes % (auto) 1.5 %; Lymphocytes # (auto) 0.79 K/uL (1.20-3.40); Lymphocytes % (auto) 7.7 %; Mean Corpuscular Hgb Conc 32.2 g/dL (32.0-36.0); Mean Corpuscular Volume 99.2 fL (80.0-100.0); Mean Platelet Volume 8.8 fL (9.4-12.4); Monocytes # (auto) 0.44 K/uL (0.11-0.59); Monocytes % (auto) 4.3 %; Neutrophils # (auto) 8.66 K/uL (1.40-6.50); Neutrophils % (auto) 84.8 %; Platelet Count 329 K/uL (130-400); RDW Coefficient of Variation 17.1 % (11.5-14.5); RDW Standard Deviation 61.1 fL (36.4-46.3); Red Blood Count 3.91 M/uL (4.20-5.40); White Blood Count 10.21 K/ul (4.8-10.8)
[2024-04-11 12:33] LABS: Albumin Level 3.4 gm/dl (3.4-5.0); BUN Creatinine Ratio 36.3 (10-20); Bilirubin Direct 0.2 mg/dl (0-0.2); Bilirubin,Total 0.7 mg/dl (0.2-1.0); Creatinine Clr Calc Pharmacy 53.1 ml/min; Est GFR (African American) 76.7 ml/min; Est GFR (Non-African American) 66.2 ml/min; Magnesium 2.2 mg/dl (1.7-2.4); Potassium 3.9 mmol/L (3.5-5.1); Total Protein 6.8 gm/dl (6.0-8.3)
--- NOTE | 2024-04-11 13:06 | XRay Report ---
XR hip RT 2V w pelvis CLINICAL HISTORY: right hip pain s//p fall COMPARISON: Right femur radiographs September 10, 2019. CT of the abdomen and pelvis February 26, 2024. FINDINGS: Sacroiliac joints and symphysis pubis are intact. There are no acute fractures within the pelvis or hips. There is moderate left and moderate right hip osteoarthritis. Moderate to large amoun t stool within the sigmoid colon and rectum is present. IMPRESSION: No fractures within the pelvis or hips. ACT 112: Negative or not required by law. Electronically signed by: Tc Umaña M.D. 04/11/2024 1:05 PM
--- NOTE | 2024-04-11 13:27 | XRay Report ---
PORTABLE SUPINE AP CHEST RADIOGRAPH CLINICAL HISTORY: weakness COMPARISON STUDY: Chest radiograph and chest CT February 26, 2024. FINDINGS: Postoperative findings within the spine are incidentally noted. No pneumothorax or pleural effusion is identified on supine exam. Cardiomegaly is unchanged. There is no consolidation. Pulmonar y vascularity is normal. IMPRESSION: No acute cardiopulmonary findings. ACT 112: Negative or not required by law. Electronically signed by: Tc Umaña M.D. 04/11/2024 1:25 PM
--- NOTE | 2024-04-11 13:32 | CT Scan Report ---
CT OF THE HEAD WITHOUT CONTRAST CLINICAL HISTORY: Weakness. History of brain mass. COMPARISON STUDY: Head CT February 26, 2024. MRI of the brain February 27, 2024. CT DOSE: 602.38 mGy.cm TECHNIQUE: Helical axial images of the head were obtained without IV contrast. Automated exposure con trol was utilized for the study. A dose lowering technique was utilized adhering to the principles o f ALARA. FINDINGS: There are no findings to suggest acute dural sinus thrombosis or acute territorial infarct. No acute intracranial hemorrhage, midline shift or mass effect is present. Ventricular system is unr emarkable. The basal cisterns are patent. A small hypodense left frontal operative bed fluid collecti on measures 6 mm in thickness. Right temporoparietal hypodensity is unchanged from earlier exams. Thi s is likely treatment related. There are bilateral craniotomies. A 1.6 cm hypodense focus within the left frontal lobe is noted. There is mild adjacent hypodensity. Findings have markedly improved when compared to MRI of March 08, 2024. IMPRESSION: 1. No acute intracranial findings. 2. Interval left-sided craniotomy with small operative bed hypodense fluid collection which is likely postsurgical. 1.6 cm hypodense focus within the left frontal lobe which is likely postsurgical. Mild edema within the left frontal lobe, markedly improved since previous MRI. 3. Otherwise, unchanged appearance of the head. ACT 112: Negative or not required by law. Electronically signed by: Tc Umaña M.D. 04/11/2024 1:30 PM
[2024-04-11 15:15] LABS: Appearance Urine Clear (Clear); Bacteria Urine Automated None Seen (None Seen); Bilirubin Urine Negative (Negative); Blood Urine Negative (Negative); Cast Urine Automated 0-2 /lpf (0-2); Color Urine Dark Yellow; Glucose Urine UA Negative (Negative); Ketones Urine Trace (Negative); Leukocyte Esterase Urine 2+ (Negative); Nitrite Urine Negative (Negative); Protein Urine Trace (Negative); Specific Gravity Urine 1.022 (1.000-1.030); Urobilinogen Urine Negative (Negative); pH Urine 5.5 (4.5-7.5)
[2024-04-11] MEDS: PIPERACILLIN/TAZOBACTAM 4.5 GM/100 ML BAG IV ONE (15:24)
[2024-04-11 16:36] LABS: Influenza A virus by PCR Negative (Neg); Influenza B virus by PCR Negative (Neg); RSV by PCR Negative (Neg); SARS CoV2 RNA(COVID-19) Ceph NEGATIVE (Negative)
--- NOTE | 2024-04-11 16:44 | History & Physical Report ---
Date of Service April 11, 2024 Assessment & Plan (1) Fall: Plan: Admit to PCU Patient presented from home after being found on the floor by her . It is unknown how she ended up on the floor. Mechanical fall vs. possible syncope. Seizure considered but felt to be less likely. Due to hx metastatic melanoma with brain lesions and recent resection, will obtain brain MRI Echo Check carbamazepine level PT/OT (2) Acute UTI (urinary tract infection): Plan: UA suggestive of possible UTI Hypotensive on arrival that improved with IVF, afebrile, WBC 10K, procal 4.27 Last urine culture grew pansensitive E. coli s/p Zosyn in the ED, will continue with ceftriaxone (3) Melanoma metastatic to brain: Plan: October 2017 --diag with superficial spreading melanoma of the left leg, [id number], Stage IIIc. 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 S/p re-excision and SLNB 12/26/2017 (-margins; 3 of 3 nodes involved) S/p nivolumab 02/04 - 04/08 S/p right parietal craniotomy for near total resection 08/20/2021 S/p Radiation therapy to brain mets, including post op bed; Aug -September 2021 S/p dabrafinib and trametinib 10/09 --dose reduced in mid 2021; ongoing Rx Jul 2022--SRS to left frontal lobe Aug 2023--s/p ALYSHA and bx of Left Frontal mass. Path-- brain parenchyma with reactive gliosis.Negative for malignancy. MRI feb 20, 2024--Parenchymal abnormality at the treatment site measuring 1.9 cm, not fully characterized. Surrounding vasogenic edema and mild mass effect, increased since pretreatment imaging. 03/03/2024--s/p L frontal craniotomy for resection ( Dr Hand) ; path showed Residual/recurrent metastatic melanoma Currently on oral chemo and receiving radiation. Hold oral chemo while treating infection. (4) Hypothyroidism: Plan: TSH 16.36, T4 0.61 Levothyroxine dose reduced to 6 weeks ago, will increase back to 200 mcg, repeat labs in 6 weeks (5) Seizure disorder: Plan: Continue carbamazepine, checking level DVT PROPHYLAXIS SCDs as patient is at high risk of bleeding with brain lesions Patient seen in collaboration with Dr. Cid. I spent a total of 75 minutes coordinating, documenting, and providing care for this patient excluding time spent in the performance of separately billed services. This included personally reviewing all current laboratories and imaging studies, medication reconciliation, outpatient chart review, and discussion with specialists. History of Present Illness Chief Complaint: Fall, weakness Primary Care Provider: Martin Solorio MD 63-year-old female with PMH HTN, CAD, seizure disorder, metastatic melanoma with metastases to brain s/p prior resection currently on oral chemotherapy and receiving radiation, and other problems listed below who presented to the ED for evaluation after a fall and generalized weakness. History is limited from the patient as she suffers from short-term memory loss due to her metastatic melanoma with brain lesions. She states that she went to bed feeling in her usual state of health the next thing she knew she was on the floor. Her was unable to get her off the floor so EMS was called and patient was brought to the ED for further evaluation. I spoke to patient's and he is unsure of how the patient ended up on the floor as well. Patient reports she otherwise has been feeling well recently. No other recent illnesses, fevers, chills. She denies chest pain or shortness of breath. No lightheadedness, dizziness, diaphoresis, syncopal events. She denies abdominal pain, nausea, vomiting, diarrhea. No urinary symptoms. Upon arrival to the ED patient was hypotensive that improved with IVF. UA is suggestive of possible UTI and patient was given a dose of IV Zosyn. Head CT with chronic findings. Allergies Allergy/AdvReac Type Severity Reaction Status Date / Time erythromycin base Allergy Unknown BROUGHT ON Verified 04/11/24 14:58 SEIZURES Macrolide Antibiotics Allergy Unknown Unknown Verified 04/11/24 14:58 Home Medications Medication Instructions Recorded Confirmed Type trazodone 100 mg tablet 150 mg PO HS 08/17/21 04/11/24 History multivitamin 1 tab PO QAM 08/30/21 04/11/24 History paroxetine HCl 40 mg tablet 40 mg PO QAM 08/30/21 04/11/24 History ondansetron HCl 8 mg tablet 8 mg PO BID 12/15/21 04/11/24 History dabrafenib 75 mg capsule (Tafinlar) 75 mg PO AMHS 07/30/22 04/11/24 History carbamazepine 200 mg 400 mg PO AMHS 11/19/22 04/11/24 History tablet,extended release,12 hr atorvastatin 20 mg tablet 20 mg PO QPM 02/27/24 04/11/24 History losartan 50 mg tablet 50 mg PO QAM 02/27/24 04/11/24 History triamcinolone acetonide 0.1 % 1 applic topical BID 02/27/24 04/11/24 History topical cream lorazepam 0.5 mg tablet 0.5 mg PO Q6H PRN anxiety #10 tabs 02/29/24 04/11/24 Rx dexamethasone 4 mg tablet 4 mg PO UD 04/11/24 04/11/24 History levothyroxine 175 mcg tablet 175 mcg PO DAILYBB 04/11/24 04/11/24 History trametinib 0.5 mg tablet (Mekinist) 1.5 mg PO DAILY 04/11/24 04/11/24 History Past Med/Surg History Problem List (Updated 04/11/24 @ 19:48 by Background Daemon) Fall Acute UTI (urinary tract infection) (Acute) Weakness (Acute) Acute hypotension (Acute) Hypothyroidism Combined receptive and expressive aphasia Vasogenic edema (Acute) Memory changes Melanoma metastatic to brain (Chronic) Medical History (Updated 04/11/24 @ 19:48 by Background Daemon) Seizure disorder History of melanoma October 2017 --diag with superficial spreading melanoma of the left leg, [id number], Stage IIIc. 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 S/p re-excision and SLNB 12/26/2017 (-margins; 3 of 3 nodes involved) S/p nivolumab 02/04 - 04/08 S/p right parietal craniotomy for near total resection 08/20/2021 S/p Radiation therapy to brain mets, including post op bed; Aug -September 2021 S/p dabrafinib and trametinib 10/09 --dose reduced in mid 2021; ongoing Rx Jul 2022--SRS to left frontal lobe Aug 2023--s/p ALYSHA and bx of Left Frontal mass. Path-- brain parenchyma with reactive gliosis.Negative for malignancy. MRI feb 20, 2024--Parenchymal abnormality at the treatment site measuring 1.9 cm, not fully characterized. Surrounding vasogenic edema and mild mass effect, increased since pretreatment imaging. 03/03/2024--s/p L frontal craniotomy for resection ( Dr Hand) ; path showed Residual/recurrent metastatic melanoma No pertinent past medical history Surgical History (Updated 03/24/24 @ 11:41 by Josie Chung RN) S/P craniotomy Dr. Yazan Crowe Neurosurgery 03/03/24 Left frontal craniotomy for tumor resection with vycor tube and dynamic retraction, use of brainlab neuronavigation, use of neurophysiological monitoring (SSEP/MEP/motor language, subcortical stimulation) Status post right foot surgery History of knee replacement procedure of left knee History of partial hysterectomy H/O craniotomy History of back surgery History of brain surgery x2 Hx of cholecystectomy Family History Grandfather (Maternal) Cancer Breast cancer Sister Cancer Breast cancer Father Cancer Colon cancer Social History Smoking Status: Current every day smoker Tobacco Type: Cigarettes Cigarettes Per Day: 13; Do You Dip or Chew Tobacco: No; Tobacco Cessation Education Requested by Patient: No Hx Alcohol Use: Yes Hx Substance Use: No Preferred Language: Portuguese Communication Ability: Impaired Visual Impairment: No Limitations Hearing Ability: Normal House Mover Supervisor Required: No Beliefs That Will Affect Care: None marital status: Current Living Situation: Spouse current occupational status: employed 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 [employer] Other Information That Helps Us Care for You: No Feels Safe at Home: No Is there a partner from a previous relationship who is making you feel unsafe now?: No Any Concerns about Your Family Situation: Yes Would You Like to Speak to Someone About Your Situation: Yes (afraid she cant take care of herself, can only help so much) and Hesitant to Answer Safety Concerns: Afraid for Self Physical Activity Frequency: Does not Exercise Assistive Devices: Cane and Walker Review of Systems Review of Systems: ROS per HPI, all other systems reviewed and negative Physical Exam Constitutional: WD/WN, vitals as above no acute distress Chronically ill-appearing Eyes: PERRL, conjunctivae normal, anicteric sclerae ENMT: external ear and nose normal, oropharynx normal Respiratory: normal respiratory effort, lungs clear to auscultation Cardiovascular: Rate/Rhythm: regular rate and regular rhythm Vessels: normal peripheral pulses Extremities: no edema Gastrointestinal (Abdomen): normal bowel sounds, soft, nontender, no hepatosplenomegaly Skin: no rashes, warm and dry Neurologic: PERRL, EOMI, accommodation nl, no face palsy, no dysarthria Psychiatric: Orientation: alert, oriented to person and oriented to place; + not oriented to time Cognition: + recent memory not intact Insight: + limited insight Results & Data Results & Data Vital Signs (Past 12 Hours) Vital Signs Temp Pulse Pulse Resp BP BP Pulse Ox 04/11/24 16:07 73 16 124/87 95 04/11/24 13:00 73 18 118/81 92 04/11/24 11:10 77 04/11/24 10:50 37.4 C 79 20 78/63 L 92 O2 Del Method 04/11/24 16:07 Room Air 04/11/24 13:00 Room Air 04/11/24 11:10 04/11/24 10:50 Room Air Laboratory Results Short CBC 04/11/24 Range/Units 11:47 WBC 10.21 (4.8-10.8) K/ul Hgb 12.5 (12.0-16.0) g/dl Hct 38.8 (37.0-47.0) % Plt Count 329 (130-400) K/uL BMP 04/11/24 11:47 Sodium 140 Potassium 3.9 Chloride 106 Carbon Dioxide 29 BUN 33 H Creatinine 0.91 Glucose 100 H Calcium 9.0 Cardiac Enzymes 04/11/24 Range/Units 11:47 Total Creatine Kinase 60 (26-192) U/L Liver Function 04/11/24 Range/Units 11:47 Total Bilirubin 0.7 (0.2-1.0) mg/dl Direct Bilirubin 0.2 (0-0.2) mg/dl AST 33 (13-39) U/L ALT 28 (7-52) U/L Alkaline Phosphatase 164 H (34-104) U/L Albumin 3.4 (3.4-5.0) gm/dl Urine 04/11/24 Range/Units 14:46 Urine Color Dark Yellow Urine Appearance Clear (Clear) Urine pH 5.5 (4.5-7.5) Ur Specific [place] 1.022 (1.000-1.030) Urine Protein Trace H (Negative) Urine Glucose (UA) Negative (Negative) Diagnostic Findings Head CT 04/11/24 11:40 CT OF THE HEAD WITHOUT CONTRAST CLINICAL HISTORY: Weakness. History of brain mass. COMPARISON STUDY: Head CT February 26, 2024. MRI of the brain February 27, 2024. CT DOSE: 602.38 mGy.cm TECHNIQUE: Helical axial images of the head were obtained without IV contrast. Automated exposure control was utilized for the study. A dose lowering technique was utilized adhering to the principles of ALARA. FINDINGS: There are no findings to suggest acute dural sinus thrombosis or acute territorial infarct. No acute intracranial hemorrhage, midline shift or mass effect is present. Ventricular system is unremarkable. The basal cisterns are patent. A small hypodense left frontal operative bed fluid collection measures 6 mm in thickness. Right temporoparietal hypodensity is unchanged from earlier exams. This is likely treatment related. There are bilateral craniotomies. A 1.6 cm hypodense focus within the left frontal lobe is noted. There is mild adjacent hypodensity. Findings have markedly improved when compared to MRI of March 08, 2024. IMPRESSION: 1. No acute intracranial findings. 2. Interval left-sided craniotomy with small operative bed hypodense fluid collection which is likely postsurgical. 1.6 cm hypodense focus within the left frontal lobe which is likely postsurgical. Mild edema within the left frontal lobe, markedly improved since previous MRI. 3. Otherwise, unchanged appearance of the head. ACT 112: Negative or not required by law. Electronically signed by: Tc Umaña M.D. 04/11/2024 1:30 PM Chest X-Ray 04/11/24 11:41 PORTABLE SUPINE AP CHEST RADIOGRAPH CLINICAL HISTORY: weakness COMPARISON STUDY: Chest radiograph and chest CT February 26, 2024. FINDINGS: Postoperative findings within the spine are incidentally noted. No pneumothorax or pleural effusion is identified on supine exam. Cardiomegaly is unchanged. There is no consolidation. Pulmonary vascularity is normal. IMPRESSION: No acute cardiopulmonary findings. ACT 112: Negative or not required by law. Electronically signed by: Tc Umaña M.D. 04/11/2024 1:25 PM Hip/Pelvis X-Ray 04/11/24 11:42 XR hip RT 2V w pelvis CLINICAL HISTORY: right hip pain s//p fall COMPARISON: Right femur radiographs September 10, 2019. CT of the abdomen and pelvis February 26, 2024. FINDINGS: Sacroiliac joints and symphysis pubis are intact. There are no acute fractures within the pelvis or hips. There is moderate left and moderate right hip osteoarthritis. Moderate to large amount stool within the sigmoid colon and rectum is present. IMPRESSION: No fractures within the pelvis or hips. ACT 112: Negative or not required by law. Electronically signed by: Tc Umaña M.D. 04/11/2024 1:05 PM Code Status & VTE Plan VTE Prophylaxis Plan VTE Prophylaxis will be ordered: Yes Supervising Physician Co-Signing Physician Notes Pt was seen and examined by myself, Petrona Cid MD on the day of service. Care was coordinated with MARÍA ELENA Cortes. 63-year-old female presenting with concern for a syncopal episode at home versus fall. On exam she states that she does not remember what happened. Alert and oriented x 3. Abdomen slightly tender. Will treat UTI with IV antibiotics, noted elevation of Procal Syncope workup to include EEG given patient's history of brain surgery and metastatic cancer to the brain. Follow repeat brain MRI Otherwise as above. I spent a total [id number] coordinating, documenting, and providing care for this patient excluding time spent in the performance of separately billed services
[2024-04-11 17:16] LABS: Thyroid Stimulating Hormone 16.36 uIu/ml (0.300-4.500)
[2024-04-11 17:52] LABS: T4 Free Thyroxine 0.61 ng/dl (0.61-1.60)
[2024-04-11] MEDS: SODIUM CHLORIDE 0.9% 1,000 ML IV SCH (20:18)
[2024-04-11] MEDS: cefTRIAXone SODIUM 1,000 MG/50 ML BAG IV SCH (20:32)
[2024-04-11] MEDS: carBAMazepine XR 200 MG TABCR PO SCH (20:33)
[2024-04-11] MEDS: ATORVASTATIN 20 MG TAB PO SCH (20:33)
[2024-04-11] MEDS: traZODone HCL 50 MG TAB PO SCH (20:34)
[2024-04-12] MEDS: LEVOTHYROXINE SODIUM 200 MCG TABLET PO SCH (06:02)
[2024-04-12 06:17] LABS: Hematocrit (blood only) 33.3 % (37.0-47.0); Hemoglobin 10.8 g/dl (12.0-16.0); Mean Corpuscular Hemoglobin 32.2 pg (25.0-34.0); Mean Corpuscular Hgb Conc 32.4 g/dL (32.0-36.0); Mean Corpuscular Volume 99.4 fL (80.0-100.0); Mean Platelet Volume 9.1 fL (9.4-12.4); Platelet Count 283 K/uL (130-400); RDW Coefficient of Variation 16.9 % (11.5-14.5); RDW Standard Deviation 60.8 fL (36.4-46.3); Red Blood Count 3.35 M/uL (4.20-5.40); White Blood Count 7.07 K/ul (4.8-10.8)
[2024-04-12 06:28] LABS: BUN Creatinine Ratio 42.7 (10-20); Calcium 8.1 mg/dl (8.6-10.3); Creatinine Clr Calc Pharmacy 59.1 ml/min; Est GFR (African American) 96.9 ml/min; Est GFR (Non-African American) 83.6 ml/min; Potassium 3.7 mmol/L (3.5-5.1)
[2024-04-12] MEDS: PARoxetine HCL 20 MG TAB PO SCH (09:42)
[2024-04-12] MEDS ORDERED: Nursing to Pharmacy Communication SCH (11:00)
[2024-04-12] MEDS: dexAMETHasone 4 MG TAB PO ONE (11:02)
--- NOTE | 2024-04-12 12:30 | XRay Report ---
XR KUB/Abdomen 1 view CLINICAL HISTORY: pre-mri, recnet colonscopy TECHNIQUE: 1 view of the abdomen was obtained. Comparison: None available at the time of this dictation. FINDINGS: Lung bases are unremarkable. Degenerative changes are seen in the visualized skeleton. The bowel gas pattern is nonobstructive. A moderate amount of stool is noted within the large bowel. IMPRESSION: Nonobstructive bowel gas pattern. ACT 112: Negative or not required by law. Electronically signed by: Seun Gsapar M.D. 04/12/2024 12:29 PM
[2024-04-12] MEDS: GADOBUTROL 65ML VIAL IV ONE (13:10)
--- NOTE | 2024-04-12 13:48 | Magnetic Resonance Report ---
MR brain wo/w con CLINICAL HISTORY: possible syncope, hx metastatic melanoma to brain TECHNIQUE: Multiplanar and multisequence MR images of the brain were obtained prior to and following administration of gadolinium contrast. Comparison: Comparison is made to MRI brain 02/27/[address] head 04/11/2024 FINDINGS: Postsurgical changes of left frontal craniotomy are now seen. Encephalomalacia/postsurgical changes i n the left frontal lobe. Old encephalomalacia and postsurgical changes of the right parietal lobe. Th ere is residual ring enhancement at the left frontal tract. The white matter is unremarkable. The chris tricular system is normal in appearance. There is no evidence of acute intraparenchymal hemorrhage. M ild prominence of the left frontal subarachnoid space, likely postprocedural. No complex features. Th e corpus callosum, pituitary gland, and cerebellar tonsils appear grossly unremarkable. Flow voids of the major intracranial arterial vessels are identified. The imaged portions of the para nasal sinuses, mastoid air cells, and orbits are unremarkable. Mild left mastoid effusion is seen. IMPRESSION: There is postsurgical change of craniotomy in the left frontal lobe at the site of the previously not ed metastatic focus. Rim enhancement is likely related to postprocedural inflammation, however contin ued follow-up is recommended to exclude viable tumor. No new foci of metastatic disease are seen. ACT 112: Negative or not required by law. Electronically signed by: Seun Gaspar M.D. 04/12/2024 1:47 PM
[2024-04-12] MEDS ORDERED: dexAMETHasone 4 MG TAB PO ONE (14:00)
[2024-04-12] MEDS: dexAMETHasone 4 MG TAB PO SCH (14:25)
--- NOTE | 2024-04-12 14:44 | Hospitalist Progress Note ---
Date of Service April 12, 2024 Assessment & Plan (1) Fall: (2) Melanoma metastatic to brain: (3) Hypothyroidism: Plan: Elevated TSH (4) Seizure disorder: Plan Patient with a fall from the couch yesterday without significant injury. Suspect multifactorial etiology most likely orthostasis as she presented hypotensive. Orthostasis potentially from subtherapeutic dosing of Synthroid, patient has chronic ambulatory/balance dysfunction from her brain metastasis, some volume depletion, medications etc. Blood pressure is significantly improved, continue to monitor and hold losartan Therapy recommendations noted, possible need for rehab Synthroid dose adjusted EEG pending, low suspicion for seizure disorder. Patient was not incontinent, no tongue biting. Okay to [id number] Phone conversation with patient's . He reports that she has no short- term memory, therefore, her inability to recollect the events of yesterday is not surprising and would be her baseline. Care management to assist with possible rehab placement Admission and Anticipated Discharge Date Admission Date: April 11, 2024 Subjective Patient denies any acute pain. No shortness of breath. Really has no recollection of the events that brought her to the ER Physical Exam Physical Exam: Constitutional: Alert, no acute distress HEENT: Mucous membranes moist. Lungs: Clear to auscultation, decreased, no wheezes rales or rhonchi CV: S1-S2, regular Abdomen: Soft, nontender, nondistended Extremities: No significant edema Neuro: No focal deficits, generalized weakness Psych: Cooperative, abnormal memory Results & Data Results & Data Vital Signs (Past 12 Hours) Vital Signs Temp Pulse Pulse Resp BP Pulse Ox O2 Del Method 04/12/24 10:58 37.3 C 18 95 Room Air 04/12/24 08:00 76 04/12/24 07:33 37.2 C 78 18 167/93 H 97 Room Air 04/12/24 02:50 37.1 C 74 18 135/71 95 Room Air Diagnostic Findings Reviewed imaging, laboratory and diagnostic studies. Pertinent findings as below. MRI of the brain no acute changes, expected surgical changes TSH 16.3 Pro-Negrito 4.2 Urine culture no significant bacterial growth of single colony
[2024-04-12] MEDS ORDERED: LORazepam 0.5 MG TAB PO PRN (16:18)
[2024-04-12] MEDS: ACETAMINOPHEN 325 MG TAB PO PRN (18:33)
--- NOTE | 2024-04-13 06:43 | Electroencephalogram ---
EEG Procedure Note Date of Service April 12, 2024 Start / End Times Start Time: 818 End Time: [address] Petrona Cid History A 63 year old female with syncope and history of metastatic melanoma. EEG performed for evaluation of epileptiform activity. Home Medication List Medication Instructions Recorded Confirmed Type trazodone 100 mg tablet 150 mg PO HS 08/17/21 04/11/24 History multivitamin 1 tab PO QAM 08/30/21 04/11/24 History paroxetine HCl 40 mg tablet 40 mg PO QAM 08/30/21 04/11/24 History ondansetron HCl 8 mg tablet 8 mg PO BID 12/15/21 04/11/24 History dabrafenib 75 mg capsule (Tafinlar) 75 mg PO AMHS 07/30/22 04/11/24 History carbamazepine 200 mg 400 mg PO AMHS 11/19/22 04/11/24 History tablet,extended release,12 hr atorvastatin 20 mg tablet 20 mg PO QPM 02/27/24 04/11/24 History losartan 50 mg tablet 50 mg PO QAM 02/27/24 04/11/24 History triamcinolone acetonide 0.1 % 1 applic topical BID 02/27/24 04/11/24 History topical cream lorazepam 0.5 mg tablet 0.5 mg PO Q6H PRN anxiety #10 tabs 02/29/24 04/11/24 Rx dexamethasone 4 mg tablet 4 mg PO UD 04/11/24 04/11/24 History levothyroxine 175 mcg tablet 175 mcg PO DAILYBB 04/11/24 04/11/24 History trametinib 0.5 mg tablet (Mekinist) 1.5 mg PO DAILY 04/11/24 04/11/24 History Inpatient Medication List Acetaminophen (Acetaminophen 325 Mg Tab) 650 mg PO Q4H PRN PRN Reason: Pain or Fever Stop: 05/11/24 19:47 Last Admin: 04/12/24 18:33 Dose: 650 mg Documented By: JENNIFER Atorvastatin Calcium (Atorvastatin 20 Mg Tab) 20 mg PO QPM PORTER Stop: 05/11/24 20:59 Last Admin: 04/12/24 20:14 Dose: 20 mg Documented By: Admin: 04/11/24 20:33 Dose: 20 mg Documented By: NATE Carbamazepine (Carbamazepine Xr 200 Mg Tabcr) 400 mg PO AMHS PORTER Stop: 05/11/24 20:59 Last Admin: 04/12/24 20:14 Dose: 400 mg Documented By: Admin: 04/12/24 09:42 Dose: 400 mg Documented By: Admin: 04/11/24 20:33 Dose: 400 mg Documented By: NATE Levothyroxine Sodium (Levothyroxine Sodium 200 Mcg Tablet) 200 mcg PO DAILYBB [facility] Stop: 05/12/24 06:29 Last Admin: 04/13/24 05:30 Dose: 200 mcg Documented By: Admin: 04/12/24 06:02 Dose: 200 mcg Documented By: NATE Paroxetine HCl (Paroxetine Hcl 20 Mg Tab) 40 mg PO QAM [facility] Stop: 05/12/24 08:59 Last Admin: 04/12/24 09:42 Dose: 40 mg Documented By: JENNIFER Trazodone HCl (Trazodone Hcl 50 Mg Tab) 150 mg PO HS [facility] Stop: 05/11/24 20:59 Last Admin: 04/12/24 20:14 Dose: 150 mg Documented By: Admin: 04/11/24 20:34 Dose: 150 mg Documented By: NATE Discontinued Medications Dexamethasone (Dexamethasone 4 Mg Tab) 4 mg PO TODAY@1400 [facility] Stop: 04/12/24 23:59 Last Admin: 04/12/24 14:25 Dose: 4 mg Documented By: JENNIFER Gadobutrol (Gadobutrol 65ml Vial) 6 ml IV ONCE ONE Stop: 04/12/24 13:19 Last Admin: 04/12/24 13:10 Dose: 6 ml Documented By: ANMOL Hydromorphone HCl (Hydromorphone Inj 0.5 Mg/0.5 Ml Syr) 0.25 mg IV NOW STA Stop: 04/11/24 11:43 Last Admin: 04/11/24 11:50 Dose: 0.25 mg Documented By: RAMAN Sodium Chloride (Nss) 1,000 mls @ 999 mls/hr IV .Q1H1M ONE Stop: 04/11/24 12:40 Last Infusion: 04/11/24 12:55 Dose: Infused Documented By: Admin: 04/11/24 11:53 Dose: 999 mls/hr Documented By: RAMAN Piperacillin Sod/Tazobactam Sod (Zosyn) 4.5 gm in 100 mls @ 200 mls/hr IV NOW ONE Stop: 04/11/24 14:07 Last Infusion: 04/11/24 16:07 Dose: Infused Documented By: Admin: 04/11/24 15:24 Dose: 200 mls/hr Documented By: AMIRA Ceftriaxone Sodium (Rocephin) 1,000 mg in 50 mls @ 100 mls/hr IV Q24H PORTER Stop: 04/16/24 20:59 Last Infusion: 04/11/24 21:13 Dose: Infused Documented By: Admin: 04/11/24 20:32 Dose: 100 mls/hr Documented By: NATE Sodium Chloride (Nss) 1,000 mls @ 100 mls/hr IV .Q10H PORTER Stop: 04/12/24 05:47 Last Infusion: 04/12/24 06:27 Dose: Infused Documented By: Admin: 04/11/24 20:18 Dose: 100 mls/hr Documented By: NATE Description This is a 21 electrode EEG with a single channel dedicated to limited EKG. The electrodes were placed in accordance with the International 10-20 system. REPORT: At the onset of the EEG the patient is awake. The background is disorganized w loss of the normal anterior to posterior gradient. The background consist of 5-6 theta activity with some intermixed delta activity. Photic does not induce any abnormalities. Interpretation IMPRESSION: This is an abnormal awake and drowsy routine EEG due to generalized background slowing suggestive of a non specific encephalopathy. No epileptiform discharges or electrographic seizures are seen.
--- NOTE | 2024-04-13 12:39 | Hospitalist Progress Note ---
Date of Service April 13, 2024 Assessment & Plan (1) Fall: (2) Melanoma metastatic to brain: (3) Hypothyroidism: Plan: Elevated TSH (4) Seizure disorder: Plan Patient 63-year-old female with metastatic melanoma with several brain surgeries for metastatic lesions and undergoing radiation to the brain had a fall at home, question if this was syncopal event or not. Patient initially came in hypotensive, has now improved and stabilized. No evidence of infectious source No arrhythmias Patient is unstable and weak, qualify for rehab stay Case management sent out applications Continue current management, continue therapies, anticipate ready for discharge when rehab stay arranged. Admission and Anticipated Discharge Date Admission Date: April 11, 2024 Subjective Patient no acute events overnight. Good appetite. No lightheadedness or dizziness. Working with therapies Physical Exam Physical Exam: Constitutional: Alert, no acute distress, sitting in chair HEENT: Mucous membranes moist. Lungs: Clear to auscultation, decreased, no wheezes rales or rhonchi CV: S1-S2, regular Abdomen: Soft, nontender, nondistended Extremities: No significant edema Neuro: At baseline Psych: Cooperative, impaired memory from metastatic cancer Results & Data Results & Data Vital Signs (Past 12 Hours) Vital Signs Temp Pulse Resp BP BP Pulse Ox O2 Del Method 04/13/24 10:36 37.1 C 79 18 113/80 95 Room Air 04/13/24 07:50 36.8 C 70 16 154/84 H 93 Room Air 04/13/24 03:03 37.1 C 70 18 165/76 H 95 Room Air Diagnostic Findings Reviewed imaging, laboratory and diagnostic studies. Pertinent findings as below. EEG shows generalized slowing, no evidence of seizure formation. Consistent most likely with her medications
[2024-04-13] MEDS: POLYETHYLENE (MIRALAX) 17 GM PACK PO SCH (14:32)
[2024-04-13] MEDS: SENNA 8.6 MG TAB PO SCH (20:21)
--- NOTE | 2024-04-13 20:58 | Electrocardiogram Report ---
Test Reason : Blood Pressure : */* mmHG Vent. Rate : 77 BPM Atrial Rate : 77 BPM P-R Int : 184 ms QRS Dur : 78 ms QT Int : 356 ms P-R-T Axes : 0 11 70 degrees QTcB Int : 402 ms Normal sinus rhythm Normal ECG When compared with ECG of 27-Feb-2024 09:22, NE interval has decreased Criteria for Septal infarct are no longer Present QT has shortened Confirmed by Leeroy Evangelista ([id number]) on 04/13/2024 8:58:04 PM Referred By: Confirmed By: Leeroy Evangelista
--- NOTE | 2024-04-14 10:17 | Hospitalist Progress Note ---
Date of Service April 14, 2024 Assessment & Plan (1) Fall: (2) Melanoma metastatic to brain: (3) Hypothyroidism: Plan: Elevated TSH (4) Seizure disorder: Plan Ms. Judy Garcia is a 63-year-old female with past med history significant for hyperlipidemia, chronic hyponatremia, centrilobar emphysema, hypertension, history of CAD, history of mild valvular heart disease, history of drug-induced hepatitis, history of left-sided lacunar infarction, history of seizures, malignant melanoma metastatic to brain, depression, tobacco use disorder, lives with her ambulates with a walker was brought in by after being found down on 04/11. Patient with history of melanoma involving left leg s/p resection on 12/26/2017. And positive for left inguinal lymph node. Patient was on immunotherapy and completed in 2019. In July 2021 she was in the ER for headache and imaging studies shows intraparenchymal hemorrhage in the right parietal occipital region. And brain MRI showed 3 cm enhancing mass with surrounding vasogenic edema posterior to the medial right parietal lobe associated with internal hemorrhage. She is status post right partial craniotomy lesion was malignant melanoma. Status post completion of postoperative radiation therapy. And was initiation on oral chemotherapy with dabrafenib and trametinib. In November 2021 patient was evaluated in the ER for seizures. Brain MRI showed vasogenic edema was improved right parietal lobe. And possible old hemorrhage and postoperative changes seen in underlying metastatic lesion. In June 2022 MRI of the brain showed new focus measuring 5 mm in the left frontal lobe likely reflective of a new focus of metastatic disease And she was status post completion of stereotactic radiation therapy to the brain lesion. she had a PET scan on April 29 2023 with no evidence of recurrent myeloma and an MRI on April 22, 2023 showed subtle interval increase in size of the 5 mm enhancing lesion in the left frontal lobe with increased perilesional edema. 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 Repeat MRI on 02/20/2024 showed 1.9 cm lesion in left frontal lobe with surrounding vasogenic edema and mild mass effect and rec ommended short interval follow-up with postcontrast and perfusion imaging. There is also a plan for PET scan. Patient underwent radiation today. Pending discharge to rehab. #Mechanical fall #Cognitive impairment short term memory notably impacted EEG notable for encephalopathy ECHO without stenosis or LVOT, EF 60-65% #Melanoma metastatic to brain #Seizures October 2017 --diag with superficial spreading melanoma of the left leg, [id number], Stage IIIc. 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 S/p re-excision and SLNB 12/26/2017 (-margins; 3 of 3 nodes involved) S/p nivolumab 02/04 - 04/08 S/p right parietal craniotomy for near total resection 08/20/2021 S/p Radiation therapy to brain mets, including post op bed; Aug -September 2021 S/p dabrafinib and trametinib 10/09 --dose reduced in mid 2021; ongoing Rx Jul 2022--SRS to left frontal lobe Aug 2023--s/p ALYSHA and bx of Left Frontal mass. Path-- brain parenchyma with reactive gliosis.Negative for malignancy. MRI feb 20, 2024--Parenchymal abnormality at the treatment site measuring 1.9 cm, not fully characterized. Surrounding vasogenic edema and mild mass effect, increased since pretreatment imaging. 03/03/2024--s/p L frontal craniotomy for resection ( Dr Hand) ; path showed Residual/recurrent metastatic melanoma Consult radiation oncology -Continue radiation treatment while admitted Close monitor delirium and seizure precautions Continue carbamazepine #Hypothyroidism: TSH 16.36, T4 0.61 Levothyroxine dose reduced to 6 weeks ago, will increase back to 200 mcg, repeat labs in 6 weeks #Abnormal UA no need to continue abx, UA active, but not signs of infection #prior Hypertension CTM, BP stable #Depression #Insomnia continue trazodone On paroxetine #Hyperlipidemia On statin #Nutrition HH DVT prophylaxis SCDs Disposition Telemetry CODE STATUS full code Admission and Anticipated Discharge Date Admission Date: April 11, 2024 Subjective evaluated after radiation reports feeling tired, but no acute concerns Frustrated with forgetfulness but otherwise pleasant and engaged in discussion Physical Exam Constitutional: WD/WN, vitals as above Respiratory: normal respiratory effort, lungs clear to auscultation Cardiovascular: RRR, no murmur, no edema Gastrointestinal (Abdomen): normal bowel sounds, soft, nontender, no hepato splenomegaly Results & Data Results & Data Vital Signs (Past 12 Hours) Vital Signs Temp Pulse Resp BP Pulse Ox O2 Del Method 04/14/24 07:57 37.2 C 70 16 123/77 94 Room Air 04/14/24 00:06 Room Air Medications Administered Home Medications Medication Instructions Recorded Confirmed Last Taken trazodone 100 mg tablet 150 mg PO HS 08/17/21 04/11/24 09/20/21 multivitamin 1 tab PO QAM 08/30/21 04/11/24 04/11/24 paroxetine HCl 40 mg tablet 40 mg PO QAM 08/30/21 04/11/24 04/11/24 ondansetron HCl 8 mg tablet 8 mg PO BID 12/15/21 04/11/24 04/11/24 dabrafenib 75 mg capsule (Tafinlar) 75 mg PO AMHS 07/30/22 04/11/24 04/11/24 carbamazepine 200 mg 400 mg PO AMHS 11/19/22 04/11/24 04/11/24 tablet,extended release,12 hr atorvastatin 20 mg tablet 20 mg PO QPM 02/27/24 04/11/24 Unknown losartan 50 mg tablet 50 mg PO QAM 02/27/24 04/11/24 04/11/24 triamcinolone acetonide 0.1 % 1 applic topical BID 02/27/24 04/11/24 04/11/24 topical cream lorazepam 0.5 mg tablet 0.5 mg PO Q6H PRN anxiety #10 tabs 02/29/24 04/11/24 Unknown dexamethasone 4 mg tablet 4 mg PO UD 04/11/24 04/11/24 Unknown levothyroxine 175 mcg tablet 175 mcg PO DAILYBB 04/11/24 04/11/24 04/11/24 trametinib 0.5 mg tablet (Mekinist) 1.5 mg PO DAILY 04/11/24 04/11/24 04/11/24 Active Medications Generic Name Dose Route Start Last Admin Trade Name Freq PRN Reason Stop Dose Admin Acetaminophen 650 mg 04/11/24 19:48 04/12/24 18:33 Acetaminophen 325 Mg Tab PO 05/11/24 19:47 650 mg Q4H PRN Administration Pain or Fever Atorvastatin Calcium 20 mg 04/11/24 21:00 04/13/24 20:22 Atorvastatin 20 Mg Tab PO 05/11/24 20:59 20 mg QPM PORTER Administration Carbamazepine 400 mg 04/11/24 21:00 04/14/24 08:50 Carbamazepine Xr 200 Mg Tabcr PO 05/11/24 20:59 400 mg AMHS PORTER Administration Levothyroxine Sodium 200 mcg 04/12/24 06:30 04/14/24 05:50 Levothyroxine Sodium 200 Mcg Tablet PO 05/12/24 06:29 200 mcg DAILYBB PORTER Administration Paroxetine HCl 40 mg 04/12/24 09:00 04/14/24 08:50 Paroxetine Hcl 20 Mg Tab PO 05/12/24 08:59 40 mg QAM PORTER Administration Polyethylene Glycol 17 gm 04/13/24 12:45 04/14/24 08:50 Polyethylene (Miralax) 17 Gm Pack PO 05/13/24 12:44 17 gm DAILY PORTER Administration Sennosides 8.6 mg 04/13/24 21:00 04/14/24 08:50 Senna 8.6 Mg Tab PO 05/13/24 20:59 8.6 mg BID PORTER Administration Trazodone HCl 150 mg 04/11/24 21:00 04/13/24 20:21 Trazodone Hcl 50 Mg Tab PO 05/11/24 20:59 150 mg HS PORTER Administration
[2024-04-14] MEDS: dexAMETHasone 4 MG TAB PO ONE (10:30)
--- NOTE | 2024-04-15 17:00 | Hospitalist Progress Note ---
Date of Service April 15, 2024 Assessment & Plan (1) Fall: (2) Melanoma metastatic to brain: (3) Hypothyroidism: (4) Seizure disorder: Plan Ms. Judy Garcia is a 63-year-old female with past med history significant for hyperlipidemia, chronic hyponatremia, centrilobar emphysema, hypertension, history of CAD, history of mild valvular heart disease, history of drug-induced hepatitis, history of left-sided lacunar infarction, history of seizures, malignant melanoma metastatic to brain, depression, tobacco use disorder, lives with her ambulates with a walker was brought in by after being found down on 04/11. Patient with history of melanoma involving left leg s/p resection on 12/26/2017. And positive for left inguinal lymph node. Patient was on immunotherapy and completed in 2018. In July 2021 she was in the ER for headache and imaging studies shows intraparenchymal hemorrhage in the right parietal occipital region. And brain MRI showed 3 cm enhancing mass with surrounding vasogenic edema posterior to the medial right parietal lobe associated with internal hemorrhage. She is status post right partial craniotomy lesion was malignant melanoma. Status post completion of postoperative radiation therapy. And was initiation on oral chemotherapy with dabrafenib and trametinib. In November 2021 patient was evaluated in the ER for seizures. Brain MRI showed vasogenic edema was improved right parietal lobe. And possible old hemorrhage and postoperative changes seen in underlying metastatic lesion. In June 2022 MRI of the brain showed new focus measuring 5 mm in the left frontal lobe likely reflective of a new focus of metastatic disease And she was status post completion of stereotactic radiation therapy to the brain lesion. she had a PET scan on April 29 2023 with no evidence of recurrent myeloma and an MRI on April 22, 2023 showed subtle interval increase in size of the 5 mm enhancing lesion in the left frontal lobe with increased perilesional edema. 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 Repeat MRI on 02/20/2024 showed 1.9 cm lesion in left frontal lobe with surrounding vasogenic edema and mild mass effect and recommended short interval follow-up with postcontrast and perfusion imaging. There is also a plan for PET scan. Patient underwent radiation 04/14. Plan for radiation tomorrow morning and discharge. No changes to management Pending discharge to rehab. #Mechanical fall #Cognitive impairment short term memory notably impacted EEG notable for encephalopathy ECHO without stenosis or LVOT, EF 60-65% #Melanoma metastatic to brain #Seizures October 2017 --diag with superficial spreading melanoma of the left leg, [id number], Stage IIIc. 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 S/p re-excision and SLNB 12/26/2017 (-margins; 3 of 3 nodes involved) S/p nivolumab 02/04 - 04/08 S/p right parietal craniotomy for near total resection 08/20/2021 S/p Radiation therapy to brain mets, including post op bed; Aug -September 2021 S/p dabrafinib and trametinib 10/09 --dose reduced in mid 2021; ongoing Rx Jul 2022--SRS to left frontal lobe Aug 2023--s/p ALYSHA and bx of Left Frontal mass. Path-- brain parenchyma with reactive gliosis.Negative for malignancy. MRI feb 20, 2024--Parenchymal abnormality at the treatment site measuring 1.9 cm, not fully characterized. Surrounding vasogenic edema and mild mass effect, increased since pretreatment imaging. 03/03/2024--s/p L frontal craniotomy for resection ( Dr Hand) ; path showed Residual/recurrent metastatic melanoma Consult radiation oncology -Continue radiation treatment while admitted Close monitor delirium and seizure precautions Continue carbamazepine #Hypothyroidism: TSH 16.36, T4 0.61 Levothyroxine dose reduced to 6 weeks ago, will increase back to 200 mcg, repeat labs in 6 weeks #Abnormal UA no need to continue abx, UA active, but not signs of infection #prior Hypertension CTM, BP stable #Depression #Insomnia continue trazodone On paroxetine #Hyperlipidemia On statin #Nutrition HH DVT prophylaxis SCDs Disposition Telemetry CODE STATUS full code Admission and Anticipated Discharge Date Admission Date: April 11, 2024 Subjective NAEO Patient pleasant and conversational Denies any acute concerns, doesn't recall exam or events day prior Physical Exam Constitutional: WD/WN, vitals as above Respiratory: normal respiratory effort, lungs clear to auscultation Cardiovascular: RRR, no murmur, no edema Gastrointestinal (Abdomen): normal bowel sounds, soft, nontender, no hepatosplenomegaly Results & Data Results & Data Vital Signs (Past 12 Hours) Vital Signs Temp Pulse Resp BP Pulse Ox O2 Del Method 04/15/24 14:24 36.7 C 81 17 106/64 95 Room Air 04/15/24 07:12 36.7 C 70 16 108/69 94 Room Air Medications Administered Home Medications Medication Instructions Recorded Confirmed Last Taken trazodone 100 mg tablet 150 mg PO HS 08/17/21 04/11/24 09/20/21 multivitamin 1 tab PO QAM 08/30/21 04/11/24 04/11/24 paroxetine HCl 40 mg tablet 40 mg PO QAM 08/30/21 04/11/24 04/11/24 ondansetron HCl 8 mg tablet 8 mg PO BID 12/15/21 04/11/24 04/11/24 dabrafenib 75 mg capsule (Tafinlar) 75 mg PO AMHS 07/30/22 04/11/24 04/11/24 carbamazepine 200 mg 400 mg PO AMHS 11/19/22 04/11/24 04/11/24 tablet,extended release,12 hr atorvastatin 20 mg tablet 20 mg PO QPM 02/27/24 04/11/24 Unknown losartan 50 mg tablet 50 mg PO QAM 02/27/24 04/11/24 04/11/24 triamcinolone acetonide 0.1 % 1 applic topical BID 02/27/24 04/11/24 04/11/24 topical cream lorazepam 0.5 mg tablet 0.5 mg PO Q6H PRN anxiety #10 tabs 02/29/24 04/11/24 Unknown dexamethasone 4 mg tablet 4 mg PO UD 04/11/24 04/11/24 Unknown levothyroxine 175 mcg tablet 175 mcg PO DAILYBB 04/11/24 04/11/24 04/11/24 trametinib 0.5 mg tablet (Mekinist) 1.5 mg PO DAILY 04/11/24 04/11/24 04/11/24 Active Medications Generic Name Dose Route Start Last Admin Trade Name Freq PRN Reason Stop Dose Admin Acetaminophen 650 mg 04/11/24 19:48 04/12/24 18:33 Acetaminophen 325 Mg Tab PO 05/11/24 19:47 650 mg Q4H PRN Administration Pain or Fever Atorvastatin Calcium 20 mg 04/11/24 21:00 04/14/24 20:39 Atorvastatin 20 Mg Tab PO 05/11/24 20:59 20 mg QPM PORTER Administration Carbamazepine 400 mg 04/11/24 21:00 04/15/24 08:36 Carbamazepine Xr 200 Mg Tabcr PO 05/11/24 20:59 400 mg AMHS PORTER Administration Levothyroxine Sodium 200 mcg 04/12/24 06:30 04/15/24 05:40 Levothyroxine Sodium 200 Mcg Tablet PO 05/12/24 06:29 200 mcg DAILYBB PORTER Administration Paroxetine HCl 40 mg 04/12/24 09:00 04/15/24 08:36 Paroxetine Hcl 20 Mg Tab PO 05/12/24 08:59 40 mg QAM PORTER Administration Polyethylene Glycol 17 gm 04/13/24 12:45 04/15/24 08:36 Polyethylene (Miralax) 17 Gm Pack PO 05/13/24 12:44 17 gm DAILY PORTER Administration Sennosides 8.6 mg 04/13/24 21:00 04/15/24 08:36 Senna 8.6 Mg Tab PO 05/13/24 20:59 8.6 mg BID PORTER Administration Trazodone HCl 150 mg 04/11/24 21:00 04/14/24 20:39 Trazodone Hcl 50 Mg Tab PO 05/11/24 20:59 150 mg HS PORTER Administration
[2024-04-16] MEDS ORDERED: dexAMETHasone**PF** 10 MG/ML VIAL IV SCH (09:00)
[2024-04-16] MEDS: dexAMETHasone 4 MG in SYRINGE 0 ML IV SCH (09:12)
--- NOTE | 2024-04-16 13:12 | Hospitalist Progress Note ---
Date of Service April 16, 2024 Assessment & Plan (1) Fall: (2) Melanoma metastatic to brain: (3) Hypothyroidism: (4) Seizure disorder: Plan Ms. Judy Garcia is a 63-year-old female with past med history significant for hyperlipidemia, chronic hyponatremia, centrilobar emphysema, hypertension, history of CAD, history of mild valvular heart disease, history of drug-induced hepatitis, history of left-sided lacunar infarction, history of seizures, malignant melanoma metastatic to brain, depression, tobacco use disorder, lives with her ambulates with a walker was brought in by after being found down on 04/11. Patient with history of melanoma involving left leg s/p resection on 12/26/2017. And positive for left inguinal lymph node. Patient was on immunotherapy and completed in 2018. In July 2021 she was in the ER for headache and imaging studies shows intraparenchymal hemorrhage in the right parietal occipital region. And brain MRI showed 3 cm enhancing mass with surrounding vasogenic edema posterior to the medial right parietal lobe associated with internal hemorrhage. She is status post right partial craniotomy lesion was malignant melanoma. Status post completion of postoperative radiation therapy. And was initiation on oral chemotherapy with dabrafenib and trametinib. In November 2021 patient was evaluated in the ER for seizures. Brain MRI showed vasogenic edema was improved right parietal lobe. And possible old hemorrhage and postoperative changes seen in underlying metastatic lesion. In June 2022 MRI of the brain showed new focus measuring 5 mm in the left frontal lobe likely reflective of a new focus of metastatic disease And she was status post completion of stereotactic radiation therapy to the brain lesion. she had a PET scan on April 29 2023 with no evidence of recurrent myeloma and an MRI on April 22, 2023 showed subtle interval increase in size of the 5 mm enhancing lesion in the left frontal lobe with increased perilesional edema. 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 Repeat MRI on 02/20/2024 showed 1.9 cm lesion in left frontal lobe with surrounding vasogenic edema and mild mass effect and recommended short interval follow-up with postcontrast and perfusion imaging. There is also a plan for PET scan. Patient underwent radiation 04/15, however, patient with notable left hip pain which prevent treatment. Will plan for final treatment on friday if still in house. No changes to management Pending discharge to rehab. Dispo thwarted 2/2 concerns about immunotherapy regimen. #Mechanical fall #Cognitive impairment short term memory notably impacted EEG notable for encephalopathy ECHO without stenosis or LVOT, EF 60-65% #Left hip pain pain when pressure applied to pelvis CT left hip ordered PT/OT #Melanoma metastatic to brain #Seizures October 2017 --diag with superficial spreading melanoma of the left leg, [id number], Stage IIIc. 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 S/p re-excision and SLNB 12/26/2017 (-margins; 3 of 3 nodes involved) S/p nivolumab 02/04 - 04/08 S/p right parietal craniotomy for near total resection 08/20/2021 S/p Radiation therapy to brain mets, including post op bed; Aug -September 2021 S/p dabrafinib and trametinib 10/09 --dose reduced in mid 2021; ongoing Rx Jul 2022--SRS to left frontal lobe Aug 2023--s/p ALYSHA and bx of Left Frontal mass. Path-- brain parenchyma with reactive gliosis.Negative for malignancy. MRI feb 20, 2024--Parenchymal abnormality at the treatment site measuring 1.9 cm, not fully characterized. Surrounding vasogenic edema and mild mass effect, increased since pretreatment imaging. 03/03/2024--s/p L frontal craniotomy for resection ( Dr Hand) ; path showed Residual/recurrent metastatic melanoma Consult radiation oncology -Continue radiation treatment while admitted Close monitor delirium and seizure precautions Continue carbamazepine #Hypothyroidism: TSH 16.36, T4 0.61 Levothyroxine dose reduced to 6 weeks ago, will increase back to 200 mcg, repeat labs in 6 weeks #Abnormal UA no need to continue abx, UA active, but not signs of infection #prior Hypertension CTM, BP stable #Depression #Insomnia continue trazodone On paroxetine #Hyperlipidemia On statin #Nutrition HH DVT prophylaxis SCDs Disposition Telemetry CODE STATUS full code Admission and Anticipated Discharge Date Admission Date: April 11, 2024 Subjective Patient unable to complete radiation 2/2 left hip pain Evaluated patient in room Pleasant and communicative, states she thinks she has been walking around and d enies any pain--but then states her hips bother her "here and there" Physical Exam Constitutional: WD/WN, vitals as above Respiratory: normal respiratory effort, lungs clear to auscultation Cardiovascular: RRR, no murmur, no edema Musculoskeletal: no pain with left hip PROM, however, compressive palpation resulted with severe pain in left hip no skin deformity, ecchymosis or sign of trauma Neurologic: noted short term memory deficit, stable from prior Results & Data Results & Data Vital Signs (Past 12 Hours) Vital Signs Temp Pulse Resp BP Pulse Ox O2 Del Method 04/16/24 10:59 36.6 C 81 16 100/63 95 Room Air 04/16/24 07:18 36.5 C 71 16 105/67 98 Room Air Medications Administered Home Medications Medication Instructions Recorded Confirmed Last Taken trazodone 100 mg tablet 150 mg PO HS 08/17/21 04/11/24 09/20/21 multivitamin 1 tab PO QAM 08/30/21 04/11/24 04/11/24 paroxetine HCl 40 mg tablet 40 mg PO QAM 08/30/21 04/11/24 04/11/24 ondansetron HCl 8 mg tablet 8 mg PO BID 12/15/21 04/11/24 04/11/24 dabrafenib 75 mg capsule (Tafinlar) 75 mg PO AMHS 07/30/22 04/11/24 04/11/24 carbamazepine 200 mg 400 mg PO AMHS 11/19/22 04/11/24 04/11/24 tablet,extended release,12 hr atorvastatin 20 mg tablet 20 mg PO QPM 02/27/24 04/11/24 Unknown losartan 50 mg tablet 50 mg PO QAM 02/27/24 04/11/24 04/11/24 triamcinolone acetonide 0.1 % 1 applic topical BID 02/27/24 04/11/24 04/11/24 topical cream lorazepam 0.5 mg tablet 0.5 mg PO Q6H PRN anxiety #10 tabs 02/29/24 04/11/24 Unknown dexamethasone 4 mg tablet 4 mg PO UD 04/11/24 04/11/24 Unknown levothyroxine 175 mcg tablet 175 mcg PO DAILYBB 04/11/24 04/11/24 04/11/24 trametinib 0.5 mg tablet (Mekinist) 1.5 mg PO DAILY 04/11/24 04/11/24 04/11/24 levothyroxine 200 mcg tablet 200 mcg PO DAILYBB 30 days #30 tabs 04/16/24 Unknown (Synthroid) Active Medications Generic Name Dose Route Start Last Admin Trade Name Alyssa PRN Reason Stop Dose Admin Acetaminophen 650 mg 04/11/24 19:48 04/16/24 09:11 Acetaminophen 325 Mg Tab PO 05/11/24 19:47 650 mg Q4H PRN Administration Pain or Fever Atorvastatin Calcium 20 mg 04/11/24 21:00 04/15/24 20:12 Atorvastatin 20 Mg Tab PO 05/11/24 20:59 20 mg QPM PORTER Administration Carbamazepine 400 mg 04/11/24 21:00 04/16/24 09:11 Carbamazepine Xr 200 Mg Tabcr PO 05/11/24 20:59 400 mg AMHS PORTER Administration Dexamethasone 4 mg/ Syringe 1 mls @ 1 mls/min 04/16/24 09:00 04/16/24 09:12 IV 05/16/24 08:59 1 mls/min DAILY PORTER Administration Levothyroxine Sodium 200 mcg 04/12/24 06:30 04/16/24 05:11 Levothyroxine Sodium 200 Mcg Tablet PO 05/12/24 06:29 200 mcg DAILYBB PORTER Administration Paroxetine HCl 40 mg 04/12/24 09:00 04/16/24 09:11 Paroxetine Hcl 20 Mg Tab PO 05/12/24 08:59 40 mg QAM PORTER Administration Polyethylene Glycol 17 gm 04/13/24 12:45 04/15/24 08:36 Polyethylene (Miralax) 17 Gm Pack PO 05/13/24 12:44 17 gm DAILY PORTER Administration Sennosides 8.6 mg 04/13/24 21:00 04/15/24 20:14 Senna 8.6 Mg Tab PO 05/13/24 20:59 8.6 mg BID PORTER Administration Trazodone HCl 150 mg 04/11/24 21:00 04/15/24 20:14 Trazodone Hcl 50 Mg Tab PO 05/11/24 20:59 150 mg HS PORTER Administration
--- NOTE | 2024-04-16 14:25 | CT Scan Report ---
CT SCAN OF THE LEFT HIP WITHOUT IV CONTRAST CLINICAL HISTORY: Left hip pain. COMPARISON STUDY: Pelvic CT dated 02/26/2024. TECHNIQUE: CT scan of the left hip was performed from the bony pelvis to the femoral shaft. Images ar e reviewed in the axial, sagittal, and coronal planes. IV contrast was not administered for this exam ination. A dose lowering technique was utilized adhering to the principles of ALARA. Note that interp retation is suboptimal without plain film correlate. CT DOSE: 427.53 mGy.cm FINDINGS: The skeletal structures are osteopenic. There are comminuted parasymphyseal fractures of th e superior and inferior left pubic rami with surrounding hemorrhage. Question intramuscular hemorrhag e within the left adductors. The left proximal femur appears intact. Mild arthritic change is noted i n the left hip. There is mild degenerative sclerosis of the left sacroiliac joint. No lytic or blasti c lesion is seen. The regional musculature is normal as visualized. Imaged portions of the bladder ar e normal in appearance. The uterus is surgically absent. There is no left pelvic sidewall or inguinal lymphadenopathy. IMPRESSION: 1. Acute comminuted parasymphyseal fractures of the left pubic ring as above with surrounding hemorrh age. 2. Question intramuscular hemorrhage within the left adductor group. ACT 112: Negative or not required by law. Electronically signed by: Leonel Ellis M.D. 04/16/2024 2:24 PM
--- NOTE | 2024-04-16 14:57 | Communication Note ---
Date of Service: April 16, 2024 CT left hip ordered given acute tenderness to palpation when assessing pelvis patient tolerated radiation on Friday, but this acute pain was not present until laying on left hip this am thus canceling the radiation treatment Patient doesn't recall any recent fall, but patient also does not recall events from day prior given short term memory issues. FINDINGS: The skeletal structures are osteopenic. There are comminuted parasymphyseal fractures of the superior and inferior left pubic rami with surrounding hemorrhage. Question intramuscular hemorrhage within the left adductors. The left proximal femur appears intact. Mild arthritic change is noted in the left hip. There is mild degenerative sclerosis of the left sacroiliac joint. No lytic or blastic lesion is seen. The regional musculature is normal as visualized. Imaged portions of the bladder are normal in appearance. The uterus is surgically absent. There is no left pelvic sidewall or inguinal lymphadenopathy. IMPRESSION: 1. Acute comminuted parasymphyseal fractures of the left pubic ring as above with surrounding hemorrhage. 2. Question intramuscular hemorrhage within the left adductor group. Consult orthopedics for further management.
[2024-04-16 15:14] LABS: Hematocrit (blood only) 33.8 % (37.0-47.0); Hemoglobin 11.1 g/dl (12.0-16.0); Mean Corpuscular Hgb Conc 32.8 g/dL (32.0-36.0); Mean Corpuscular Volume 97.4 fL (80.0-100.0); Mean Platelet Volume 8.9 fL (9.4-12.4); Platelet Count 425 K/uL (130-400); RDW Coefficient of Variation 16.3 % (11.5-14.5); RDW Standard Deviation 57.2 fL (36.4-46.3); Red Blood Count 3.47 M/uL (4.20-5.40); White Blood Count 7.65 K/ul (4.8-10.8)
--- NOTE | 2024-04-16 21:02 | Orthopedic Consultation ---
Date of Service April 16, 2024 Assessment & Plan (1) Pelvic ring fracture: 63-year-old female with ongoing chemotherapy and radiation admitted after a fall with an occult osteoporotic pubic rami fracture. The fracture is stable and the focus should be on pain management. No surgical indications. She can be weightbearing and range of motion as tolerated. I counseled her this may be several weeks to start feeling better. She should use a walker and her crutches as needed to assist with ambulation. Expect gradual improvement over the next 6 to 12 weeks. If still painful beyond 12 weeks, orthopedic follow-up should be obtained. Please contact me via [place] text for any further questions History of Present Illness Reason for Consultation: Pelvic fracture Requesting Physician: . Attending Physician: Chen Russo MD 63-year-old female with short-term memory loss and frequent falls without recollection due to seizure disorder, metastatic melanoma with metastases to brain s/p prior resection currently on oral chemotherapy and receiving radiation, was admitted on 04/11 after another fall. Patient reports she has no recollection of the event. Since admission she has noticed some groin pain particular over the left hip. Original x-rays that were unremarkable. A CT scan was obtained recently which shows rami fractures just to the left of the pubic symphyseal region. The patient reports no recollection of previous pelvic fractures. She has pain is gradually improving but still severe and limits her ability to walk comfortably Allergies Allergy/AdvReac Type Severity Reaction Status Date / Time erythromycin base Allergy Unknown BROUGHT ON Verified 04/11/24 14:58 SEIZURES Macrolide Antibiotics Allergy Unknown Unknown Verified 04/11/24 14:58 Home Medications Medication Instructions Recorded Confirmed Type trazodone 100 mg tablet 150 mg PO HS 08/17/21 04/11/24 History multivitamin 1 tab PO QAM 08/30/21 04/11/24 History paroxetine HCl 40 mg tablet 40 mg PO QAM 08/30/21 04/11/24 History ondansetron HCl 8 mg tablet 8 mg PO BID 12/15/21 04/11/24 History dabrafenib 75 mg capsule (Tafinlar) 75 mg PO AMHS 07/30/22 04/11/24 History carbamazepine 200 mg 400 mg PO AMHS 11/19/22 04/11/24 History tablet,extended release,12 hr atorvastatin 20 mg tablet 20 mg PO QPM 02/27/24 04/11/24 History losartan 50 mg tablet 50 mg PO QAM 02/27/24 04/11/24 History triamcinolone acetonide 0.1 % 1 applic topical BID 02/27/24 04/11/24 History topical cream lorazepam 0.5 mg tablet 0.5 mg PO Q6H PRN anxiety #10 tabs 02/29/24 04/11/24 Rx dexamethasone 4 mg tablet 4 mg PO UD 04/11/24 04/11/24 History levothyroxine 175 mcg tablet 175 mcg PO DAILYBB 04/11/24 04/11/24 History trametinib 0.5 mg tablet (Mekinist) 1.5 mg PO DAILY 04/11/24 04/11/24 History levothyroxine 200 mcg tablet 200 mcg PO DAILYBB 30 days #30 tabs 04/16/24 Rx (Synthroid) Past Med/Surg History Problem List (Updated 04/16/24 @ 21:01 by Emeterio Pollard MD) Pelvic ring fracture Fall Acute UTI (urinary tract infection) (Acute) Weakness (Acute) Acute hypotension (Acute) Hypothyroidism Combined receptive and expressive aphasia Vasogenic edema (Acute) Memory changes Melanoma metastatic to brain (Chronic) Medical History Seizure disorder History of melanoma October 2017 --diag with superficial spreading melanoma of the left leg, [id number], Stage IIIc. 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 S/p re-excision and SLNB 12/26/2017 (-margins; 3 of 3 nodes involved) S/p nivolumab 02/04 - 04/08 S/p right parietal craniotomy for near total resection 08/20/2021 S/p Radiation therapy to brain mets, including post op bed; Aug -September 2021 S/p dabrafinib and trametinib 10/09 --dose reduced in mid 2021; ongoing Rx Jul 2022--SRS to left frontal lobe Aug 2023--s/p ALYSHA and bx of Left Frontal mass. Path-- brain parenchyma with reactive gliosis.Negative for malignancy. MRI feb 20, 2024--Parenchymal abnormality at the treatment site measuring 1.9 cm, not fully characterized. Surrounding vasogenic edema and mild mass effect, increased since pretreatment imaging. 03/03/2024--s/p L frontal craniotomy for resection ( Dr Hand) ; path showed Residual/recurrent metastatic melanoma No pertinent past medical history Surgical History S/P craniotomy Dr. Yazan Crowe Neurosurgery 03/03/24 Left frontal craniotomy for tumor resection with vycor tube and dynamic retraction, use of brainlab neuronavigation, use of neurophysiological monitoring (SSEP/MEP/motor language, subcortical stimulation) Status post right foot surgery History of knee replacement procedure of left knee History of partial hysterectomy H/O craniotomy History of back surgery History of brain surgery x2 Hx of cholecystectomy Family History Grandfather (Maternal) Cancer Breast cancer Sister Cancer Breast cancer Father Cancer Colon cancer Social History Smoking Status: Current every day smoker Tobacco Type: Cigarettes Cigarettes Per Day: 13; Do You Dip or Chew Tobacco: No; Tobacco Cessation Education Requested by Patient: No Hx Alcohol Use: Yes Hx Substance Use: No Preferred Language: Kenyan Communication Ability: Unable Visual Impairment: No Limitations Hearing Ability: Normal 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 Beliefs That Will Affect Care: None marital status: Current Living Situation: Spouse current occupational status: employed 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 Physical Exam GEN: Cooperative and conversant. Appears comfortable. Pelvis: She directed the pain just to the left side of her pubic symphysis, corresponding to the area of fracture on CT. She was unable to perform a straight leg raise comfortably. She could do a heel drag up to about 90 degrees of knee flexion and 45 degrees of hip flexion. She is not irritable with logroll or internal rotation through the hip. She is mildly tender over the groin and pubic symphysis. Nontender over the ASIS. Neurovascular intact throughout the bilateral lower extremities. Constitutional WD/WN, vitals as above no acute distress and not intoxicated appearing Respiratory normal respiratory effort; no labored breathing Cardiovascular Extremities: normal capillary refill Results & Data Results & Data Laboratory Results . Diagnostic Findings Radiographs and a CT scan were reviewed with respect to the consult in question. There indeed is a fracture in the parasymphyseal region on the left side. I agree with the radiologist that there is some evidence of the acuity of this with some hemorrhage. Stable pattern. PG Care Time/CCT Total # of Minutes Spent Total Time Spent with Patient: Total time spent is greater than 50% in coordination of care (as documented) at patient's floor/unit and/or counseling patient: Coding Level of Care Code 04598 IN/OBS CONSULT LVL 4,60M Diagnoses Pelvic ring fracture S32.810A
--- NOTE | 2024-04-17 09:22 | Hospitalist Progress Note ---
Date of Service April 17, 2024 Assessment & Plan (1) Fall: (2) Melanoma metastatic to brain: (3) Hypothyroidism: (4) Seizure disorder: Plan Ms. Judy Garcia is a 63-year-old female with past med history significant for hyperlipidemia, chronic hyponatremia, centrilobar emphysema, hypertension, history of CAD, history of mild valvular heart disease, history of drug-induced hepatitis, history of left-sided lacunar infarction, history of seizures, malignant melanoma metastatic to brain, depression, tobacco use disorder, lives with her ambulates with a walker was brought in by after being found down on 04/11. Patient with history of melanoma involving left leg s/p resection on 12/26/2017. And positive for left inguinal lymph node. Patient was on immunotherapy and completed in 2018. In July 2021 she was in the ER for headache and imaging studies shows intraparenchymal hemorrhage in the right parietal occipital region. And brain MRI showed 3 cm enhancing mass with surrounding vasogenic edema posterior to the medial right parietal lobe associated with internal hemorrhage. She is status post right partial craniotomy lesion was malignant melanoma. Status post completion of postoperative radiation therapy. And was initiation on oral chemotherapy with dabrafenib and trametinib. In November 2021 patient was evaluated in the ER for seizures. Brain MRI showed vasogenic edema was improved right parietal lobe. And possible old hemorrhage and postoperative changes seen in underlying metastatic lesion. In June 2022 MRI of the brain showed new focus measuring 5 mm in the left frontal lobe likely reflective of a new focus of metastatic disease And she was status post completion of stereotactic radiation therapy to the brain lesion. she had a PET scan on April 29 2023 with no evidence of recurrent myeloma and an MRI on April 22, 2023 showed subtle interval increase in size of the 5 mm enhancing lesion in the left frontal lobe with increased perilesional edema. 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 Repeat MRI on 02/20/2024 showed 1.9 cm lesion in left frontal lobe with surrounding vasogenic edema and mild mass effect and recommended short interval follow-up with postcontrast and perfusion imaging. . Patient underwent radiation 04/15, however, patient with notable left hip pain which prevent treatment. Will plan for final treatment on friday if still in house. Pending discharge to rehab. Dispo thwarted 2/2 concerns about immunotherapy regimen. Given concern over left hip pain and unable to get a clear idea of history, CT hip was ordered on 04/16 which revealed acute comminuted parasymphyseal fractures of the left pubic ring with surrounding hemorrhage. Ortho was consulted and felt fracture is stable. . #Mechanical fall #Cognitive impairment short term memory notably impacted EEG notable for encephalopathy ECHO without stenosis or LVOT, EF 60-65% #Left pelvic ring fracture,stable #Left hip pain pain when pressure applied to pelvis CT left hip pelvic ring fracture noted Ortho consulted -reviewed recommendations: ambulate with walker/crutches -No surgical indications -6-12 weeks should have improvement, if no improvement will need follow up there after #Melanoma metastatic to brain #Seizures October 2017 --diag with superficial spreading melanoma of the left leg, [id number], Stage IIIc. 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 S/p re-excision and SLNB 12/26/2017 (-margins; 3 of 3 nodes involved) S/p nivolumab 02/04 - 04/08 S/p right parietal craniotomy for near total resection 08/20/2021 S/p Radiation therapy to brain mets, including post op bed; Aug -September 2021 S/p dabrafinib and trametinib 10/09 --dose reduced in mid 2021; ongoing Rx Jul 2022--SRS to left frontal lobe Aug 2023--s/p ALYSHA and bx of Left Frontal mass. Path-- brain parenchyma with reactive gliosis.Negative for malignancy. MRI feb 20, 2024--Parenchymal abnormality at the treatment site measuring 1.9 cm, not fully characterized. Surrounding vasogenic edema and mild mass effect, increased since pretreatment imaging. 03/03/2024--s/p L frontal craniotomy for resection ( Dr Hand) ; path showed Residual/recurrent metastatic melanoma Consult radiation oncology -Continue radiation treatment while admitted Close monitor delirium and seizure precautions Continue carbamazepine #Hypothyroidism: TSH 16.36, T4 0.61 Levothyroxine dose reduced to 6 weeks ago, will increase back to 200 mcg, repeat labs in 6 weeks #Abnormal UA no need to continue abx, UA active, but not signs of infection #prior Hypertension CTM, BP stable #Depression #Insomnia continue trazodone On paroxetine #Hyperlipidemia On statin #Nutrition HH DVT prophylaxis SCDs Disposition Telemetry CODE STATUS full code Admission and Anticipated Discharge Date Admission Date: April 11, 2024 Subjective Evaluated patient at bedside, states she feels ok Does not remember the scan from day prior States that her hip isnt actively bothering her Recalled the scan from day prior and discussed the fracture, she replied "oh really?" then continued to eat her breakfast Physical Exam Constitutional: sitting upright alert eating breakfast Respiratory: normal respiratory effort, lungs clear to auscultation Cardiovascular: RRR, no murmur, no edema Gastrointestinal (Abdomen): normal bowel sounds, soft, nontender, no hepatosplenomegaly Results & Data Results & Data Vital Signs (Past 12 Hours) Vital Signs Temp Pulse Resp BP Pulse Ox O2 Del Method 04/17/24 08:10 36.6 C 67 16 127/71 98 Room Air Laboratory Results Short CBC 04/16/24 Range/Units 14:55 WBC 7.65 (4.8-10.8) K/ul Hgb 11.1 L (12.0-16.0) g/dl Hct 33.8 L (37.0-47.0) % Plt Count 425 H (130-400) K/uL Medications Administered Home Medications Medication Instructions Recorded Confirmed Last Taken trazodone 100 mg tablet 150 mg PO HS 08/17/21 04/11/24 09/20/21 multivitamin 1 tab PO QAM 08/30/21 04/11/24 04/11/24 paroxetine HCl 40 mg tablet 40 mg PO QAM 08/30/21 04/11/24 04/11/24 ondansetron HCl 8 mg tablet 8 mg PO BID 12/15/21 04/11/24 04/11/24 dabrafenib 75 mg capsule (Tafinlar) 75 mg PO AMHS 07/30/22 04/11/24 04/11/24 carbamazepine 200 mg 400 mg PO AMHS 11/19/22 04/11/24 04/11/24 tablet,extended release,12 hr atorvastatin 20 mg tablet 20 mg PO QPM 02/27/24 04/11/24 Unknown losartan 50 mg tablet 50 mg PO QAM 02/27/24 04/11/24 04/11/24 triamcinolone acetonide 0.1 % 1 applic topical BID 02/27/24 04/11/24 04/11/24 topical cream lorazepam 0.5 mg tablet 0.5 mg PO Q6H PRN anxiety #10 tabs 02/29/24 04/11/24 Unknown dexamethasone 4 mg tablet 4 mg PO UD 04/11/24 04/11/24 Unknown levothyroxine 175 mcg tablet 175 mcg PO DAILYBB 04/11/24 04/11/24 04/11/24 trametinib 0.5 mg tablet (Mekinist) 1.5 mg PO DAILY 04/11/24 04/11/24 04/11/24 levothyroxine 200 mcg tablet 200 mcg PO DAILYBB 30 days #30 tabs 04/16/24 Unknown (Synthroid) Active Medications Generic Name Dose Route Start Last Admin Trade Name Freq PRN Reason Stop Dose Admin Acetaminophen 650 mg 04/11/24 19:48 04/16/24 09:11 Acetaminophen 325 Mg Tab PO 05/11/24 19:47 650 mg Q4H PRN Administration Pain or Fever Atorvastatin Calcium 20 mg 04/11/24 21:00 04/16/24 20:22 Atorvastatin 20 Mg Tab PO 05/11/24 20:59 20 mg QPM PORTER Administration Carbamazepine 400 mg 04/11/24 21:00 04/17/24 08:23 Carbamazepine Xr 200 Mg Tabcr PO 05/11/24 20:59 400 mg AMHS PORTER Administration Dexamethasone 4 mg/ Syringe 1 mls @ 1 mls/min 04/16/24 09:00 04/17/24 08:22 IV 05/16/24 08:59 1 mls/min DAILY PORTER Administration Levothyroxine Sodium 200 mcg 04/12/24 06:30 04/17/24 06:05 Levothyroxine Sodium 200 Mcg Tablet PO 05/12/24 06:29 200 mcg DAILYBB PORTER Administration Paroxetine HCl 40 mg 04/12/24 09:00 04/17/24 08:22 Paroxetine Hcl 20 Mg Tab PO 05/12/24 08:59 40 mg QAM PORTER Administration Polyethylene Glycol 17 gm 04/13/24 12:45 04/17/24 08:23 Polyethylene (Miralax) 17 Gm Pack PO 05/13/24 12:44 Not Given DAILY PORTER Sennosides 8.6 mg 04/13/24 21:00 04/17/24 08:23 Senna 8.6 Mg Tab PO 05/13/24 20:59 Not Given BID PORTER Trazodone HCl 150 mg 04/11/24 21:00 04/16/24 20:22 Trazodone Hcl 50 Mg Tab PO 05/11/24 20:59 150 mg HS PORTER Administration
--- NOTE | 2024-04-18 15:33 | Hospitalist Progress Note ---
Date of Service April 18, 2024 Assessment & Plan (1) Fall: (2) Melanoma metastatic to brain: (3) Hypothyroidism: (4) Seizure disorder: Plan Ms. Judy Garcia is a 63-year-old female with past med history significant for hyperlipidemia, chronic hyponatremia, centrilobar emphysema, hypertension, history of CAD, history of mild valvular heart disease, history of drug-induced hepatitis, history of left-sided lacunar infarction, history of seizures, malignant melanoma metastatic to brain, depression, tobacco use disorder, lives with her ambulates with a walker was brought in by after being found down on 04/11. Patient with history of melanoma involving left leg s/p resection on 12/26/2017. And positive for left inguinal lymph node. Patient was on immunotherapy and completed in 2018. In July 2021 she was in the ER for headache and imaging studies shows intraparenchymal hemorrhage in the right parietal occipital region. And brain MRI showed 3 cm enhancing mass with surrounding vasogenic edema posterior to the medial right parietal lobe associated with internal hemorrhage. She is status post right partial craniotomy lesion was malignant melanoma. Status post completion of postoperative radiation therapy. And was initiation on oral chemotherapy with dabrafenib and trametinib. In November 2021 patient was evaluated in the ER for seizures. Brain MRI showed vasogenic edema was improved right parietal lobe. And possible old hemorrhage and postoperative changes seen in underlying metastatic lesion. In June 2022 MRI of the brain showed new focus measuring 5 mm in the left frontal lobe likely reflective of a new focus of metastatic disease And she was status post completion of stereotactic radiation therapy to the brain lesion. she had a PET scan on April 29 2023 with no evidence of recurrent myeloma and an MRI on April 22, 2023 showed subtle interval increase in size of the 5 mm enhancing lesion in the left frontal lobe with increased perilesional edema. 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 Repeat MRI on 02/20/2024 showed 1.9 cm lesion in left frontal lobe with surrounding vasogenic edema and mild mass effect and recommended short interval follow-up with postcontrast and perfusion imaging. . Patient underwent radiation 04/15, however, patient with notable left hip pain which prevent treatment. Will plan for final treatment on friday if still in house. Pending discharge to rehab. Dispo thwarted 2/2 concerns about immunotherapy regimen. Given concern over left hip pain and unable to get a clear idea of history, CT hip was ordered on 04/16 which revealed acute comminuted parasymphyseal fractures of the left pubic ring with surrounding hemorrhage. Ortho was consulted and felt fracture is stable. . Will discuss with Dr. Watkins tomorrow if radiation can be performed with special positioning consideration taken in mind. Will discuss dispo with CM tomorrow and determine if needs to bring immunotherapy medications into hospital now that infection r/o #Mechanical fall #Cognitive impairment short term memory notably impacted EEG notable for encephalopathy ECHO without stenosis or LVOT, EF 60-65% #Left pelvic ring fracture,stable #Left hip pain pain when pressure applied to pelvis CT left hip pelvic ring fracture noted Ortho consulted -reviewed recommendations: ambulate with walker/crutches -No surgical indications -6-12 weeks should have improvement, if no improvement will need follow up there after #Melanoma metastatic to brain #Seizures October 2017 --diag with superficial spreading melanoma of the left leg, [id number], Stage IIIc. 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 S/p re-excision and SLNB 12/26/2017 (-margins; 3 of 3 nodes involved) S/p nivolumab 02/04 - 04/08 S/p right parietal craniotomy for near total resection 08/20/2021 S/p Radiation therapy to brain mets, including post op bed; Aug -September 2021 S/p dabrafinib and trametinib 10/09 --dose reduced in mid 2021; ongoing Rx Jul 2022--SRS to left frontal lobe Aug 2023--s/p ALYSHA and bx of Left Frontal mass. Path-- brain parenchyma with reactive gliosis.Negative for malignancy. MRI feb 20, 2024--Parenchymal abnormality at the treatment site measuring 1.9 cm, not fully characterized. Surrounding vasogenic edema and mild mass effect, increased since pretreatment imaging. 03/03/2024--s/p L frontal craniotomy for resection ( Dr Hand) ; path showed Residual/recurrent metastatic melanoma Consult radiation oncology -Continue radiation treatment while admitted Close monitor delirium and seizure precautions Continue carbamazepine #Hypothyroidism: TSH 16.36, T4 0.61 Levothyroxine dose reduced to 6 weeks ago, will increase back to 200 mcg, repeat labs in 6 weeks #Abnormal UA no need to continue abx, UA active, but not signs of infection #prior Hypertension CTM, BP stable #Depression #Insomnia continue trazodone On paroxetine #Hyperlipidemia On statin #Nutrition HH DVT prophylaxis SCDs Disposition [facility] CODE STATUS full code Admission and Anticipated Discharge Date Admission Date: April 11, 2024 Subjective NAEO Patient resting in bed no acute concerns Denies any active pain Physical Exam Constitutional: WD/WN, vitals as above Respiratory: normal respiratory effort, lungs clear to auscultation Cardiovascular: RRR, no murmur, no edema Gastrointestinal (Abdomen): normal bowel sounds, soft, nontender, no hepatosplenomegaly Results & Data Results & Data Vital Signs (Past 12 Hours) Vital Signs Temp Pulse Resp BP Pulse Ox O2 Del Method 04/18/24 15:06 36.8 C 84 16 110/64 92 Room Air 04/18/24 07:20 36.7 C 71 16 104/63 95 Room Air Medications Administered Home Medications Medication Instructions Recorded Confirmed Last Taken trazodone 100 mg tablet 150 mg PO HS 08/17/21 04/11/24 09/20/21 multivitamin 1 tab PO QAM 08/30/21 04/11/24 04/11/24 paroxetine HCl 40 mg tablet 40 mg PO QAM 08/30/21 04/11/24 04/11/24 ondansetron HCl 8 mg tablet 8 mg PO BID 12/15/21 04/11/24 04/11/24 dabrafenib 75 mg capsule (Tafinlar) 75 mg PO AMHS 07/30/22 04/11/24 04/11/24 carbamazepine 200 mg 400 mg PO AMHS 11/19/22 04/11/24 04/11/24 tablet,extended release,12 hr atorvastatin 20 mg tablet 20 mg PO QPM 02/27/24 04/11/24 Unknown losartan 50 mg tablet 50 mg PO QAM 02/27/24 04/11/24 04/11/24 triamcinolone acetonide 0.1 % 1 applic topical BID 02/27/24 04/11/24 04/11/24 topical cream lorazepam 0.5 mg tablet 0.5 mg PO Q6H PRN anxiety #10 tabs 02/29/24 04/11/24 Unknown dexamethasone 4 mg tablet 4 mg PO UD 04/11/24 04/11/24 Unknown levothyroxine 175 mcg tablet 175 mcg PO DAILYBB 04/11/24 04/11/24 04/11/24 trametinib 0.5 mg tablet (Mekinist) 1.5 mg PO DAILY 04/11/24 04/11/24 04/11/24 levothyroxine 200 mcg tablet 200 mcg PO DAILYBB 30 days #30 tabs 04/16/24 Unknown (Synthroid) Active Medications Generic Name Dose Route Start Last Admin Trade Name Freq PRN Reason Stop Dose Admin Acetaminophen 650 mg 04/11/24 19:48 04/17/24 22:09 Acetaminophen 325 Mg Tab PO 05/11/24 19:47 650 mg Q4H PRN Administration Pain or Fever Atorvastatin Calcium 20 mg 04/11/24 21:00 04/17/24 21:58 Atorvastatin 20 Mg Tab PO 05/11/24 20:59 20 mg QPM PORTER Administration Carbamazepine 400 mg 04/11/24 21:00 04/18/24 08:14 Carbamazepine Xr 200 Mg Tabcr PO 05/11/24 20:59 400 mg AMHS PORTER Administration Dexamethasone 4 mg/ Syringe 1 mls @ 1 mls/min 04/16/24 09:00 04/18/24 08:15 IV 05/16/24 08:59 1 mls/min DAILY PORTER Administration Levothyroxine Sodium 200 mcg 04/12/24 06:30 04/18/24 06:19 Levothyroxine Sodium 200 Mcg Tablet PO 05/12/24 06:29 200 mcg DAILYBB PORTER Administration Paroxetine HCl 40 mg 04/12/24 09:00 04/18/24 08:14 Paroxetine Hcl 20 Mg Tab PO 05/12/24 08:59 40 mg QAM PORTER Administration Polyethylene Glycol 17 gm 04/13/24 12:45 04/18/24 08:14 Polyethylene (Miralax) 17 Gm Pack PO 05/13/24 12:44 17 gm DAILY PORTER Administration Sennosides 8.6 mg 04/13/24 21:00 04/18/24 08:14 Senna 8.6 Mg Tab PO 05/13/24 20:59 8.6 mg BID PORTER Administration Trazodone HCl 150 mg 04/11/24 21:00 04/17/24 21:58 Trazodone Hcl 50 Mg Tab PO 05/11/24 20:59 150 mg HS PORTER Administration
[2024-04-19] MEDS ORDERED: dexAMETHasone 4 MG in SYRINGE 0 ML IV ONE (09:15)
--- NOTE | 2024-04-19 10:48 | Hospitalist Progress Note ---
Date of Service April 19, 2024 Assessment & Plan (1) Fall: (2) Melanoma metastatic to brain: (3) Hypothyroidism: (4) Seizure disorder: Plan Ms. Judy Garcia is a 63-year-old female with past med history significant for hyperlipidemia, chronic hyponatremia, centrilobar emphysema, hypertension, history of CAD, history of mild valvular heart disease, history of drug-induced hepatitis, history of left-sided lacunar infarction, history of seizures, malignant melanoma metastatic to brain, depression, tobacco use disorder, lives with her ambulates with a walker was brought in by after being found down on 04/11. Documentation per previous provider: Patient with history of melanoma involving left leg s/p resection on 12/26/2017. And positive for left inguinal lymph node. Patient was on immunotherapy and completed in 2018. In July 2021 she was in the ER for headache and imaging studies shows intraparenchymal hemorrhage in the right parietal occipital region. And brain MRI showed 3 cm enhancing mass with surrounding vasogenic edema posterior to the medial right parietal lobe associated with internal hemorrhage. She is status post right partial craniotomy lesion was malignant melanoma. Status post completion of postoperative radiation therapy. And was initiation on oral chemotherapy with dabrafenib and trametinib. In November 2021 patient was evaluated in the ER for seizures. Brain MRI showed vasogenic edema was improved right parietal lobe. And possible old hemorrhage and postoperative changes seen in underlying metastatic lesion. In June 2022 MRI of the brain showed new focus measuring 5 mm in the left frontal lobe likely reflective of a new focus of metastatic disease And she was status post completion of stereotactic radiation therapy to the brain lesion. she had a PET scan on April 29 2023 with no evidence of recurrent myeloma and an MRI on April 22, 2023 showed subtle interval increase in size of the 5 mm enhancing lesion in the left frontal lobe with increased perilesional edema. 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 Repeat MRI on 02/20/2024 showed 1.9 cm lesion in left frontal lobe with surrounding vasogenic edema and mild mass effect and recommended short interval follow-up with postcontrast and perfusion imaging. Patient underwent radiation 04/15, however, patient with notable left hip pain which prevent treatment. Discussed with Dr. Watkins who will administer Radiation todayy Pending discharge to rehab. Dispo thwarted 2/ concerns about immunotherapy regimen as [facility] will not accept, [facility] is placing an Auth Mechanical fall Cognitive impairment short term memory notably impacted EEG notable for encephalopathy ECHO without stenosis or LVOT, EF 60-65% Mental status at baseline Left pelvic ring fracture,stable Left hip pain pain when pressure applied to pelvis CT left hip pelvic ring fracture noted Ortho consulted -reviewed recommendations: ambulate with walker/crutches -No surgical indications -6-12 weeks should have improvement, if no improvement will need follow up there after Melanoma metastatic to brain Seizures October 2017 --diag with superficial spreading melanoma of the left leg, [id number], Stage IIIc. 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 S/p re-excision and SLNB 12/26/2017 (-margins; 3 of 3 nodes involved) S/p nivolumab 02/04 - 04/08 S/p right parietal craniotomy for near total resection 08/20/2021 S/p Radiation therapy to brain mets, including post op bed; Aug -September 2021 S/p dabrafinib and trametinib 10/09 --dose reduced in mid 2021; ongoing Rx Jul 2022--SRS to left frontal lobe Aug 2023--s/p ALYSHA and bx of Left Frontal mass. Path-- brain parenchyma with reactive gliosis.Negative for malignancy. MRI feb 20, 2024--Parenchymal abnormality at the treatment site measuring 1.9 cm, not fully characterized. Surrounding vasogenic edema and mild mass effect, increased since pretreatment imaging. 03/03/2024--s/p L frontal craniotomy for resection ( Dr Hand) ; path showed Residual/recurrent metastatic melanoma Consult radiation oncology -Continue radiation treatment while admitted, next treatment today, 04/19/24 delirium and seizure precautions Continue carbamazepine Hypothyroidism: TSH 16.36, T4 0.61 Levothyroxine dose reduced to 6 weeks ago, will increase back to 200 mcg, repeat labs in 6 weeks HX of Hypertension chronic, stable, not on meds Depression Insomnia chronic, stable, continue trazodone and paxil Hyperlipidemia: Chronic, stable, On statin DVT prophylaxis SCDs [facility], [facility] CODE STATUS full code I spent a total of 46 minutes reviewing notes, outpatient records, labs, m edication, coordinating, documenting and providing care for this patient excluding time spent in the performance of separately billed services. Admission and Anticipated Discharge Date Admission Date: April 11, 2024 Supervising Physician Co-Signing Physician Notes I have seen and discussed the case with the collaborating advanced practitioner. I agree with the above PN. I have reviewed and confirmed the patients medical history, the findings on physical examination, and the patients diagnosis and treatment plan with Mindy FROST and agree with the information documented. Plan for radiation today with pain control. Contingent on dispo plan, will ask to bring in patient's immunotherapy. I spent a total of 10 minutes coordinating, documenting, and providing care for this patient excluding time spent in the performance of separately billed services. All of the aforementioned completed outside of collaborating with the assigned advanced practitioner for a full treatment plan. I have reviewed the advanced practitioner's documentation, and I agree with, and take responsibility for the plan of care Subjective NAEO. Pt reports no pain at rest, but will occur with movement. Denies f/c/s, chest pain, sob, n/v. Tolerating diet. She is moving bowels. Review of Systems Review of Systems: All systems reviewed & are unremarkable except as noted in HPI & below Physical Exam Physical Exam: Gen: WD/WN, NAD, A&O x3 to basics only HEENT: Normocephalic, atraumatic, conjunctivae moist, sclerae anicteric, mucous membranes moist. Lung: Clear to Auscultation bilaterally, no wheezes/rales/rhonchi Heart: Regular rate, regular rhythm, no murmurs, rubs, or gallops Abdomen: Soft, NT, ND +BS x 4 Extremities: No edema Skin: Warm, no rash, negative turgor. Results & Data Results & Data Vital Signs (Past 12 Hours) Vital Signs Temp Pulse Resp BP Pulse Ox O2 Del Method 04/19/24 08:09 37.3 C 66 18 120/75 95 Room Air Medications Administered Current Inpatient Medications Acetaminophen (Acetaminophen 325 Mg Tab) 650 mg PO Q4H PRN PRN Reason: Pain or Fever Stop: 05/11/24 19:47 Last Admin: 04/18/24 20:41 Dose: 650 mg Atorvastatin Calcium (Atorvastatin 20 Mg Tab) 20 mg PO QPM PORTER Stop: 05/11/24 20:59 Last Admin: 04/18/24 20:41 Dose: 20 mg Carbamazepine (Carbamazepine Xr 200 Mg Tabcr) 400 mg PO AMHS PORTER Stop: 05/11/24 20:59 Last Admin: 04/19/24 08:51 Dose: 400 mg Hydromorphone HCl (Hydromorphone Inj 0.5 Mg/0.5 Ml Syr) 0.5 mg IV ONE ONE Stop: 04/19/24 12:31 Dexamethasone 4 mg/ Syringe 1 mls @ 1 mls/min IV DAILY PORTER Stop: 05/16/24 08:59 Last Admin: 04/19/24 08:52 Dose: 1 mls/min Dexamethasone 4 mg/ Syringe 1 mls @ 1 mls/min IV TODAY@1100 ONE Stop: 04/19/24 11:01 Levothyroxine Sodium (Levothyroxine Sodium 200 Mcg Tablet) 200 mcg PO DAILYBB PORTER Stop: 05/12/24 06:29 Last Admin: 04/19/24 06:11 Dose: 200 mcg Lorazepam (Lorazepam 0.5 Mg Tab) 0.5 mg PO Q6H PRN PRN Reason: anxiety Stop: 05/12/24 16:17 Paroxetine HCl (Paroxetine Hcl 20 Mg Tab) 40 mg PO QAM PORTER Stop: 05/12/24 08:59 Last Admin: 04/19/24 09:46 Dose: 40 mg Polyethylene Glycol (Polyethylene (Miralax) 17 Gm Pack) 17 gm PO DAILY PORTER Stop: 05/13/24 12:44 Last Admin: 04/19/24 08:50 Dose: 17 gm Sennosides (Senna 8.6 Mg Tab) 8.6 mg PO BID PORTER Stop: 05/13/24 20:59 Last Admin: 04/19/24 08:53 Dose: 8.6 mg Trazodone HCl (Trazodone Hcl 50 Mg Tab) 150 mg PO HS PORTER Stop: 05/11/24 20:59 Last Admin: 04/18/24 20:41 Dose: 150 mg
[2024-04-19] MEDS ORDERED: DEXAMETHASONE SOD INJ 4 MG/ML VIAL IV ONE (11:00)
[2024-04-19] MEDS: dexAMETHasone 4 MG in SYRINGE 0 ML IV ONE (11:48)
[2024-04-19] MEDS: HYDROmorphone INJ 0.5 MG/0.5 ML SYR IV ONE (12:09)
[2024-04-19] MEDS ORDERED: HYDROmorphone INJ 0.5 MG/0.5 ML SYR IV ONE (12:30)
--- NOTE | 2024-04-20 14:04 | Hospitalist Progress Note ---
Date of Service April 20, 2024 Assessment & Plan (1) Fall: (2) Melanoma metastatic to brain: (3) Hypothyroidism: (4) Seizure disorder: Plan Ms. Judy Garcia is a 63-year-old female with past med history significant for hyperlipidemia, chronic hyponatremia, centrilobar emphysema, hypertension, history of CAD, history of mild valvular heart disease, history of drug-induced hepatitis, history of left-sided lacunar infarction, history of seizures, malignant melanoma metastatic to brain, depression, tobacco use disorder, lives with her ambulates with a walker was brought in by after being found down on 04/11. Documentation per previous provider: Patient with history of melanoma involving left leg s/p resection on 12/26/2017. And positive for left inguinal lymph node. Patient was on immunotherapy and completed in 2018. In July 2021 she was in the ER for headache and imaging studies shows intraparenchymal hemorrhage in the right parietal occipital region. And brain MRI showed 3 cm enhancing mass with surrounding vasogenic edema posterior to the medial right parietal lobe associated with internal hemorrhage. She is status post right partial craniotomy lesion was malignant melanoma. Status post completion of postoperative radiation therapy. And was initiation on oral chemotherapy with dabrafenib and trametinib. In November 2021 patient was evaluated in the ER for seizures. Brain MRI showed vasogenic edema was improved right parietal lobe. And possible old hemorrhage and postoperative changes seen in underlying metastatic lesion. In June 2022 MRI of the brain showed new focus measuring 5 mm in the left frontal lobe likely reflective of a new focus of metastatic disease And she was status post completion of stereotactic radiation therapy to the brain lesion. she had a PET scan on April 29 2023 with no evidence of recurrent myeloma and an MRI on April 22, 2023 showed subtle interval increase in size of the 5 mm enhancing lesion in the left frontal lobe with increased perilesional edema. 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 Repeat MRI on 02/20/2024 showed 1.9 cm lesion in left frontal lobe with surrounding vasogenic edema and mild mass effect and recommended short interval follow-up with postcontrast and perfusion imaging. Patient underwent radiation 04/15, however, patient with notable left hip pain which prevent treatment. Discussed with Dr. Watkins who will administer last radiation treatment on 04/19 Pending discharge to rehab. Dispo thwarted 2/2 concerns about immunotherapy regimen as [facility] will not accept, [facility] is placing an Auth Mechanical fall Cognitive impairment short term memory notably impacted EEG notable for encephalopathy ECHO without stenosis or LVOT, EF 60-65% Mental status at baseline Left pelvic ring fracture,stable Left hip pain pain when pressure applied to pelvis CT left hip pelvic ring fracture noted Ortho consulted -reviewed recommendations: ambulate with walker/crutches -No surgical indications -6-12 weeks should have improvement, if no improvement will need follow up there after Melanoma metastatic to brain Seizures October 2017 --diag with superficial spreading melanoma of the left leg, [id number], Stage IIIc. 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 S/p re-excision and SLNB 12/26/2017 (-margins; 3 of 3 nodes involved) S/p nivolumab 02/04 - 04/08 S/p right parietal craniotomy for near total resection 08/20/2021 S/p Radiation therapy to brain mets, including post op bed; Aug -September 2021 S/p dabrafinib and trametinib 10/09 --dose reduced in mid 2021; ongoing Rx Jul 2022--SRS to left frontal lobe Aug 2023--s/p ALYSHA and bx of Left Frontal mass. Path-- brain parenchyma with reactive gliosis.Negative for malignancy. MRI feb 20, 2024--Parenchymal abnormality at the treatment site measuring 1.9 cm, not fully characterized. Surrounding vasogenic edema and mild mass effect, increased since pretreatment imaging. 03/03/2024--s/p L frontal craniotomy for resection ( Dr Hand) ; path showed Residual/recurrent metastatic melanoma Consult radiation oncology -Continue radiation treatment while admitted, next treatment today, 04/19/24 delirium and seizure precautions Continue carbamazepine Hypothyroidism: TSH 16.36, T4 0.61 Levothyroxine dose reduced to 6 weeks ago, will increase back to 200 mcg, repeat labs in 6 weeks HX of Hypertension chronic, stable, not on meds Depression Insomnia chronic, stable, continue trazodone and paxil Hyperlipidemia: Chronic, stable, On statin DVT prophylaxis SCDs Disposition [facility], awaiting rehab, pending auth for [facility] CODE STATUS full code I spent a total of 42 minutes reviewing notes, outpatient records, labs, medication, coordinating, documenting and providing care for this patient excluding time spent in the performance of separately billed services. Admission and Anticipated Discharge Date Admission Date: April 11, 2024 Supervising Physician Co-Signing Physician Notes I have seen and discussed the case with the collaborating advanced practitioner. I agree with the above PN. I have reviewed and confirmed the patients medical history, the findings on physical examination, and the patients diagnosis and treatment plan with Mindy FROST and agree with the information documented. Plan for radiation today with pain control. Contingent on dispo plan, will ask to bring in patient's immunotherapy. I spent a total of 10 minutes coordinating, documenting, and providing care for this patient excluding time spent in the performance of separately billed services. All of the aforementioned completed outside of collaborating with the assigned advanced practitioner for a full treatment plan. I have reviewed the advanced practitioner's documentation, and I agree with, and take responsibility for the plan of care Abe MITCHELL. She tolerated radiation yesterday. She denies pain and is tolerating diet. No nursing concerns. Review of Systems Review of Systems: All systems reviewed & are unremarkable except as noted in HPI & below Physical Exam Physical Exam: Gen: WD/WN, NAD, A&O x3 to basics only HEENT: Normocephalic, atraumatic, conjunctivae moist, sclerae anicteric, mucous membranes moist. Lung: Clear to Auscultation bilaterally, no wheezes/rales/rhonchi Heart: Regular rate, regular rhythm, no murmurs, rubs, or gallops Abdomen: Soft, NT, ND +BS x 4 Extremities: No edema Skin: Warm, no rash, negative turgor. Results & Data Results & Data Vital Signs (Past 12 Hours) Vital Signs Temp Pulse Resp BP BP Pulse Ox O2 Del Method 04/20/24 13:53 37.2 C 77 18 105/68 93 Room Air 04/20/24 08:30 37.0 C 82 18 149/81 H 93 Room Air Medications Administered Current Inpatient Medications Acetaminophen (Acetaminophen 325 Mg Tab) 650 mg PO Q4H PRN PRN Reason: Pain or Fever Stop: 05/11/24 19:47 Last Admin: 04/20/24 06:04 Dose: 650 mg Atorvastatin Calcium (Atorvastatin 20 Mg Tab) 20 mg PO QPM PORTER Stop: 05/11/24 20:59 Last Admin: 04/19/24 20:18 Dose: 20 mg Carbamazepine (Carbamazepine Xr 200 Mg Tabcr) 400 mg PO AMHS PORTER Stop: 05/11/24 20:59 Last Admin: 04/20/24 08:27 Dose: 400 mg Dexamethasone 4 mg/ Syringe 1 mls @ 1 mls/min IV DAILY PORTER Stop: 05/16/24 08:59 Last Admin: 04/20/24 08:28 Dose: 1 mls/min Levothyroxine Sodium (Levothyroxine Sodium 200 Mcg Tablet) 200 mcg PO DAILYBB PORTER Stop: 05/12/24 06:29 Last Admin: 04/20/24 05:22 Dose: 200 mcg Lorazepam (Lorazepam 0.5 Mg Tab) 0.5 mg PO Q6H PRN PRN Reason: anxiety Stop: 05/12/24 16:17 Paroxetine HCl (Paroxetine Hcl 20 Mg Tab) 40 mg PO QAM PORTER Stop: 05/12/24 08:59 Last Admin: 04/20/24 08:27 Dose: 40 mg Polyethylene Glycol (Polyethylene (Miralax) 17 Gm Pack) 17 gm PO DAILY PORTER Stop: 05/13/24 12:44 Last Admin: 04/20/24 08:27 Dose: Not Given Sennosides (Senna 8.6 Mg Tab) 8.6 mg PO BID PORTER Stop: 05/13/24 20:59 Last Admin: 04/20/24 08:26 Dose: 8.6 mg Trazodone HCl (Trazodone Hcl 50 Mg Tab) 150 mg PO HS PORTER Stop: 05/11/24 20:59 Last Admin: 04/19/24 20:17 Dose: 150 mg
[2024-04-21 07:38] LABS: Hematocrit (blood only) 31.6 % (37.0-47.0); Hemoglobin 10.6 g/dl (12.0-16.0); Mean Corpuscular Hemoglobin 32.7 pg (25.0-34.0); Mean Corpuscular Hgb Conc 33.5 g/dL (32.0-36.0); Mean Corpuscular Volume 97.5 fL (80.0-100.0); Mean Platelet Volume 8.8 fL (9.4-12.4); Platelet Count 520 K/uL (130-400); RDW Coefficient of Variation 16.3 % (11.5-14.5); RDW Standard Deviation 57.7 fL (36.4-46.3); Red Blood Count 3.24 M/uL (4.20-5.40); White Blood Count 9.33 K/ul (4.8-10.8)
[2024-04-21 08:01] LABS: BUN Creatinine Ratio 29.2 (10-20); Calcium 8.9 mg/dl (8.6-10.3); Creatinine Clr Calc Pharmacy 67.1 ml/min; Est GFR (African American) 101.9 ml/min; Est GFR (Non-African American) 87.9 ml/min
--- NOTE | 2024-04-21 18:04 | Hospitalist Progress Note ---
Date of Service April 21, 2024 Assessment & Plan (1) Fall: (2) Melanoma metastatic to brain: (3) Hypothyroidism: (4) Seizure disorder: Plan Ms. Judy Garcia is a 63-year-old female with past med history significant for hyperlipidemia, chronic hyponatremia, centrilobar emphysema, hypertension, history of CAD, history of mild valvular heart disease, history of drug-induced hepatitis, history of left-sided lacunar infarction, history of seizures, malignant melanoma metastatic to brain, depression, tobacco use disorder, lives with her ambulates with a walker was brought in by after being found down on 04/11. Documentation per previous provider: Patient with history of melanoma involving left leg s/p resection on 12/26/2017. And positive for left inguinal lymph node. Patient was on immunotherapy and completed in 2018. In July 2021 she was in the ER for headache and imaging studies shows intraparenchymal hemorrhage in the right parietal occipital region. And brain MRI showed 3 cm enhancing mass with surrounding vasogenic edema posterior to the medial right parietal lobe associated with internal hemorrhage. She is status post right partial craniotomy lesion was malignant melanoma. Status post completion of postoperative radiation therapy. And was initiation on oral chemotherapy with dabrafenib and trametinib. In November 2021 patient was evaluated in the ER for seizures. Brain MRI showed vasogenic edema was improved right parietal lobe. And possible old hemorrhage and postoperative changes seen in underlying metastatic lesion. In June 2022 MRI of the brain showed new focus measuring 5 mm in the left frontal lobe likely reflective of a new focus of metastatic disease And she was status post completion of stereotactic radiation therapy to the brain lesion. she had a PET scan on April 29 2023 with no evidence of recurrent myeloma and an MRI on April 22, 2023 showed subtle interval increase in size of the 5 mm enhancing lesion in the left frontal lobe with increased perilesional edema. 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 Repeat MRI on 02/20/2024 showed 1.9 cm lesion in left frontal lobe with surrounding vasogenic edema and mild mass effect and recommended short interval follow-up with postcontrast and perfusion imaging. Patient underwent radiation 04/15, however, patient with notable left hip pain which prevent treatment. Discussed with Dr. Watkins who will administer last radiation treatment on 04/19 Pending discharge to rehab. Dispo thwarted / concerns about immunotherapy regimen as [facility] will not accept, [facility] is placing an Auth Mechanical fall Cognitive impairment short term memory notably impacted EEG notable for encephalopathy ECHO without stenosis or LVOT, EF 60-65% Mental status at baseline Left pelvic ring fracture,stable Left hip pain pain when pressure applied to pelvis CT left hip pelvic ring fracture noted Ortho consulted -reviewed recommendations: ambulate with walker/crutches -No surgical indications -6-12 weeks should have improvement, if no improvement will need follow up there after Melanoma metastatic to brain Seizures October 2017 --diag with superficial spreading melanoma of the left leg, [id number], Stage IIIc. 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 S/p re-excision and SLNB 12/26/2017 (-margins; 3 of 3 nodes involved) S/p nivolumab 02/04 - 04/08 S/p right parietal craniotomy for near total resection 08/20/2021 S/p Radiation therapy to brain mets, including post op bed; Aug -September 2021 S/p dabrafinib and trametinib 10/09 --dose reduced in mid 2021; ongoing Rx Jul 2022--SRS to left frontal lobe Aug 2023--s/p ALYSHA and bx of Left Frontal mass. Path-- brain parenchyma with reactive gliosis.Negative for malignancy. MRI feb 20, 2024--Parenchymal abnormality at the treatment site measuring 1.9 cm, not fully characterized. Surrounding vasogenic edema and mild mass effect, increased since pretreatment imaging. 03/03/2024--s/p L frontal craniotomy for resection ( Dr Hand) ; path showed Residual/recurrent metastatic melanoma Consult radiation oncology -Continue radiation treatment while admitted, next treatment today, 04/19/24 delirium and seizure precautions Continue carbamazepine Pt was on Dexamethasone for 5 days prior to radiation, this has since been discontinued Hypothyroidism: TSH 16.36, T4 0.61 Levothyroxine dose reduced to 6 weeks ago, will increase back to 200 mcg, repeat labs in 6 weeks HX of Hypertension chronic, stable Losartan currently on hold. BP stable, continue to monitor off. Depression Insomnia chronic, stable, continue trazodone and paxil Hyperlipidemia: Chronic, stable, On statin DVT prophylaxis SCDs Disposition [facility], awaiting rehab, pending auth for [facility] CODE STATUS full code I spent a total of 41 minutes reviewing notes, outpatient records, labs, medication, coordinating, documenting and providing care for this patient excluding time spent in the performance of separately billed services. Admission and Anticipated Discharge Date Admission Date: April 11, 2024 Supervising Physician Co-Signing Physician Notes Pt noted to be awaiting placement. Pt not seen and evaluated personally. Subjective NAEO. She denies any pain resting in bed. She is eating well and moved her bowels this morning. Denies CP/SOB, n/v. Review of Systems Review of Systems: All systems reviewed & are unremarkable except as noted in HPI & below Physical Exam Physical Exam: Gen: WD/WN, NAD, A&O x3 to basics only HEENT: Normocephalic, atraumatic, conjunctivae moist, sclerae anicteric, mucous membranes moist. Lung: Clear to Auscultation bilaterally, no wheezes/rales/rhonchi Heart: Regular rate, regular rhythm, no murmurs, rubs, or gallops Abdomen: Soft, NT, ND +BS x 4 Extremities: No edema Skin: Warm, no rash, negative turgor. Results & Data Results & Data Vital Signs (Past 12 Hours) Vital Signs Temp Pulse Resp BP BP Pulse Ox O2 Del Method 04/21/24 15:50 36.8 C 84 16 124/77 95 Room Air 04/21/24 07:12 37.1 C 76 16 114/74 95 Room Air Medications Administered Current Inpatient Medications Acetaminophen (Acetaminophen 325 Mg Tab) 650 mg PO Q4H PRN PRN Reason: Pain or Fever Stop: 05/11/24 19:47 Last Admin: 04/20/24 06:04 Dose: 650 mg Atorvastatin Calcium (Atorvastatin 20 Mg Tab) 20 mg PO QPM PORTER Stop: 05/11/24 20:59 Last Admin: 04/20/24 19:51 Dose: 20 mg Carbamazepine (Carbamazepine Xr 200 Mg Tabcr) 400 mg PO AMHS PORTER Stop: 05/11/24 20:59 Last Admin: 04/21/24 08:02 Dose: 400 mg Famotidine (Famotidine 20 Mg Tab) 20 mg PO QAM PORTER Stop: 05/22/24 08:59 Levothyroxine Sodium (Levothyroxine Sodium 200 Mcg Tablet) 200 mcg PO DAILYBB PORTER Stop: 05/12/24 06:29 Last Admin: 04/21/24 05:29 Dose: 200 mcg Lorazepam (Lorazepam 0.5 Mg Tab) 0.5 mg PO Q6H PRN PRN Reason: anxiety Stop: 05/12/24 16:17 Miscellaneous (Do Not Tube ~ Mekinist ~ Order Awaiting Action) 1 each N/A QS PORTER Stop: 05/21/24 15:59 Last Admin: 04/21/24 15:58 Dose: Not Given Miscellaneous (Do Not Tube ~ Tafinlar ~Order Awaiting Action) 1 each N/A QS PORTER Stop: 05/21/24 15:59 Last Admin: 04/21/24 15:58 Dose: Not Given Paroxetine HCl (Paroxetine Hcl 20 Mg Tab) 40 mg PO QAM PORTER Stop: 05/12/24 08:59 Last Admin: 04/21/24 08:03 Dose: 40 mg Polyethylene Glycol (Polyethylene (Miralax) 17 Gm Pack) 17 gm PO DAILY PORTER Stop: 05/13/24 12:44 Last Admin: 04/21/24 08:02 Dose: 17 gm Sennosides (Senna 8.6 Mg Tab) 8.6 mg PO BID PORTER Stop: 05/13/24 20:59 Last Admin: 04/21/24 08:02 Dose: 8.6 mg Trazodone HCl (Trazodone Hcl 50 Mg Tab) 150 mg PO HS PORTER Stop: 05/11/24 20:59 Last Admin: 04/20/24 19:52 Dose: 150 mg
[2024-04-22] MEDS: FAMOTIDINE 20 MG TAB PO SCH (08:39)
--- NOTE | 2024-04-22 15:03 | Hospitalist Progress Note ---
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 She lives with her ambulates with a walker at baseline. Documentation Per Previous Provider: Patient with history of melanoma involving left leg s/p resection on 12/26/2017 and positive for left inguinal lymph node. Patient was on immunotherapy and completed in 2018. In July 2021, she was in the ER for headache and imaging studies shows intraparenchymal hemorrhage in the right parietal occipital region and brain MRI showed 3 cm enhancing mass with surrounding vasogenic edema posterior to the medial right parietal lobe associated with internal hemorrhage. She is s/p right partial craniotomy - lesion was malignant melanoma. S/p completion of postoperative radiation therapy and was initiation on oral chemotherapy with dabrafenib and trametinib. In November 2021, patient was evaluated in the ER for seizures. Brain MRI showed vasogenic edema was improved right parietal lobe and possible old hemorrhage and postoperative changes seen in underlying metastatic lesion. In June 2022, MRI of the brain showed a new focus measuring 5mm in the left frontal lobe likely reflective of a new focus of metastatic disease and she was s/p completion of stereotactic radiation therapy to the brain lesion. She had a PET scan on April 29, 2023 with no evidence of recurrent myeloma and an MRI on April 22, 2023 showed subtle interval increase in size of the 5mm enhancing lesion in the left frontal lobe with increased perilesional edema. 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 Repeat MRI on 02/20/2024 showed a 1.9cm lesion in left frontal lobe with surrounding vasogenic edema and mild mass effect and recommended short interval follow-up with postcontrast and perfusion imaging. Patient underwent radiation on 04/14/24. Was supposed to have an additional radiation treatment on 04/15/2024, however patient with notable left hip pain which prevented treatment. Left hip CT on 04/16/24 showed an acute comminuted parasymphyseal fracture of the left pubic ring. Case was discussed with Dr. Watkins. Patient received her last radiation treatment on 04/19/24. Per oncology discharge summary today --> s/p completion of radiation therapy to a single brain lesion. , 04/22/24 Spoke with --> Authorization for [facility] is still pending. Patient also been accepted to [facility] if needed when a bed becomes available. Left Pelvic Ring Fracture S/P Fall: Left hip CT on 04/16/24 showed an acute comminuted parasymphyseal fracture of the left pubic ring. Ortho consulted --> stable fracture with no surgical indication, WBAT with ROM as tolerated. Should use a walker and crutches as needed to assist with ambulation. Expect gradual improvement over the next 6-12 weeks however if still painful beyond 12 weeks, orthopedic follow-up should be obtained. Continue pain and bowel regimens. Cognitive Impairment: Short-term memory notably impacted. Brain MRI on 04/12/24 with no new foci of metastatic disease. EEG on 04/13/24 --> an abnormal awake and drowsy routine EEG due to generalized background slowing suggestive of a non-specific encephalopathy, no epileptiform discharges or electrographic seizures were seen. Echo on 04/12/24 --> LVEF=60-65%, normal LV wall motion, mild concentric LVH, mild aortic valve sclerosis, trace mitral regurgitation, mild tricuspid regurgitation. Mental status at baseline. Melanoma Metastatic to Brain, Seizures: Patient follows with [facility] [Dr. Benja Watkins]. Has also been seen by [facility] Rad[facility] in the past. Treatment history outlined as per below according to [facility] Oncology discharge summary from this morning and previous [facility] documentation: 10/2017 - Diagnosed with superficial spreading melanoma of the left leg, [id number], Stage IIIc. 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 12/2017 - Malignant melanoma of the left leg s/p resection with positive lymph node. 01/2018 to 03/2019 - Treated with Opdivo. 08/20/2021 - Right parietal craniotomy. Malignant melanoma. 10/02/2021 - S/p completion of postoperative radiation therapy to brain mets. 09/2021 - Initiation of oral chemotherapy with Dabrafinib and trametinib. 03/19/2022 - Dabrafenib 75 mg twice daily. Trametinib 1.5 mg daily. Dose decreased due to side effect of fatigue. 08/19/2022 - S/p completion of stereotactic radiation therapy to the brain lesion. 09/08/2023 - Biopsy of left frontal lesion with subsequent ALYSHA. Pathology showed brain parenchyma with reactive gliosis, negative for malignancy. 02/20/2024 - MRI brain showed parenchymal abnormality at the treatment site measuring 1.9 cm, not fully characterized. Surrounding vasogenic edema and mild mass effect, increased since pretreatment imaging. 03/03/2024 - Left frontal craniotomy for tumor resection. Pathology showed residual/recurrent metastatic melanoma. 04/19/2024 - S/p completion of radiation therapy to a single brain lesion. Treatment utilizing SBRT. Patient underwent radiation on 04/14/24. Was supposed to have an additional radiation treatment on 04/15/2024, however patient with notable left hip pain which prevented treatment as eluded to above. Case was discussed with Dr. Watkins. Radiation oncology was consulted. Patient received her last radiation treatment on 04/19/24. Delirium and seizure precautions in place. Continue carbamazepine. Patient was on dexamethasone for 5 days prior to radiation, this has since been discontinued. Hypothyroidism: TSH 16.360 and T4 0.61 on 04/11/24. Levothyroxine dose reduced to 175mcg 6 weeks ago. Dose increased back to 200mcg, will need repeat labs in 6 weeks. Hypertension: Losartan currently on hold. BP stable, continue to monitor off of losartan. Other Chronic Medical Conditions: HLD, depression/insomnia --> Can continue home medications for these specific conditions. DVT Prophylaxis: SCDs Code Status: FULL CODE PCP: Martin Solorio MD Disposition: Admitted in Med/Surg - Spoke with , waiting to hear back from [facility]. Patient has also been accepted at [facility] if needed when a bed becomes available. [facility] was unable to accept the patient due to the cost of her oral chemotherapy medication. Patient seen in collaboration with Dr. Jarrell. Please see addendum. I spent a total of 50 minutes coordinating, documenting, and providing care for this patient excluding time spent in the performance of separately billed services. This included personally reviewing all current laboratories and imaging studies, medical reconciliation, outpatient chart review and discussion with specialists. This chart was completed in part utilizing Speech Voice Recognition Software. Grammatical errors, random word insertions, pronoun errors, and incomplete sentences are an occasional consequence of this system due to software limitations, ambient noise, and hardware issues. Any formal questions or conc erns about the content, text, or information contained within the body of this dictation should be directly addressed to the provider for clarification. Admission and Anticipated Discharge Date Admission Date: April 11, 2024 Supervising Physician Co-Signing Physician Notes Pt is awaiting placement. seen and examined personally. appears stable. no new complaints. d/w Melanie FROST. I have seen and examined the patient and have discussed the case with the provider above. I agree with the assessment and plan as stated. Subjective No acute events overnight. Denied any pain this morning. She tolerated breakfast without any issue. No SOB, chest pain or abdominal pain. Review of Systems Review of Systems: At least ten systems reviewed and negative, except as noted in the subjective section. Physical Exam Physical Exam: General: WD/WN, vitals as above, NAD, sitting up in bed, pleasant. A+Ox3 during our conversation, euthymic affect. HEENT: Normocephalic, atraumatic. PERRL, conjunctivae normal, anicteric sclerae. External ear and nose normal, oropharynx normal. Respiratory: Normal respiratory effort, lungs clear to auscultation, no wheeze, rales, rhonchi. No accessory muscle use. Cardiovascular: Regular rate, rhythm, no murmur, normal peripheral pulses, no BLE edema. Vessels: No JVD. Abdomen/GI: Normal bowel sounds, soft, nontender, no hepatosplenomegaly. Extremities/Musculoskeletal: No cyanosis or clubbing, pain with movement of LLE. Neurologic: EOMI, no focal deficits, CN's II-XI not formally tested but appear grossly intact bilaterally. Skin: No rashes, normal color, warm/dry. Results & Data Results & Data Vital Signs (Past 12 Hours) Vital Signs Temp Pulse Resp BP Pulse Ox O2 Del Method 04/22/24 14:42 36.7 C 69 18 115/75 96 Room Air 04/22/24 07:06 36.5 C 74 18 116/71 95 Room Air (1) Fall Encounter type: initial encounter Qualified Code(s): W19.XXXA - Unspecified fall, initial encounter (2) Fracture of left hip Encounter type: initial encounter Fracture type: closed Qualified Code(s): S72.002A - Fracture of unspecified part of neck of left femur, initial encounter for closed fracture
--- NOTE | 2024-04-23 13:27 | Hospitalist Progress Note ---
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 She lives with her ambulates with a walker at baseline. Documentation Per Previous Provider: Patient with history of melanoma involving left leg s/p resection on 12/26/2017 and positive for left inguinal lymph node. Patient was on immunotherapy and completed in 2018. In July 2021, she was in the ER for headache and imaging studies shows intraparenchymal hemorrhage in the right parietal occipital region and brain MRI showed 3 cm enhancing mass with surrounding vasogenic edema posterior to the medial right parietal lobe associated with internal hemorrhage. She is s/p right partial craniotomy - lesion was malignant melanoma. S/p completion of postoperative radiation therapy and was initiation on oral chemotherapy with dabrafenib and trametinib. In November 2021, patient was evaluated in the ER for seizures. Brain MRI showed vasogenic edema was improved right parietal lobe and possible old hemorrhage and postoperative changes seen in underlying metastatic lesion. In June 2022, MRI of the brain showed a new focus measuring 5mm in the left frontal lobe likely reflective of a new focus of metastatic disease and she was s/p completion of stereotactic radiation therapy to the brain lesion. She had a PET scan on April 29, 2023 with no evidence of recurrent myeloma and an MRI on April 22, 2023 showed subtle interval increase in size of the 5mm enhancing lesion in the left frontal lobe with increased perilesional edema. 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 Repeat MRI on 02/20/2024 showed a 1.9cm lesion in left frontal lobe with surrounding vasogenic edema and mild mass effect and recommended short interval follow-up with postcontrast and perfusion imaging. Patient underwent radiation on 04/14/24. Was supposed to have an additional radiation treatment on 04/15/2024, however patient with notable left hip pain which prevented treatment. Left hip CT on 04/16/24 showed an acute comminuted parasymphyseal fracture of the left pubic ring. Case was discussed with Dr. Watkins. Patient received her last radiation treatment on 04/19/24. Per oncology discharge summary today --> s/p completion of radiation therapy to a single brain lesion. 04/23/24 Insurance authorization for [facility] was denied and no peer to peer option was provided. Patient has been accepted at [facility] and they are able to take the patient on Friday. Patient's , Kwame, needs to provide [facility] with the patient's oral chemotherapy medications. Attempted to call Kwame in order to update him on the placement situation however was unable to get a hold of him. Left him a voicemail to call back. Left Pelvic Ring Fracture S/P Fall: Left hip CT on 04/16/24 showed an acute comminuted parasymphyseal fracture of the left pubic ring. Ortho consulted --> stable fracture with no surgical indication, WBAT with ROM as tolerated. Should use a walker and crutches as needed to assist with ambulation. Expect gradual improvement over the next 6-12 weeks however if still painful beyond 12 weeks, orthopedic follow-up should be obtained. Continue pain and bowel regimens. Cognitive Impairment: Short-term memory notably impacted. Brain MRI on 04/12/24 with no new foci of metastatic disease. EEG on 04/13/24 --> an abnormal awake and drowsy routine EEG due to generalized background slowing suggestive of a non-specific encephalopathy, no epileptiform discharges or electrographic seizures were seen. Echo on 04/12/24 --> LVEF=60-65%, normal LV wall motion, mild concentric LVH, mild aortic valve sclerosis, trace mitral regurgitation, mild tricuspid regurgitation. Mental status at baseline. Melanoma Metastatic to Brain, Seizures: Patient follows with [facility] [Dr. Benja Watkins]. Has also been seen by [facility] in the past. Treatment history outlined as per below according to [facility] Oncology discharge summary from this morning and previous [facility] documentation: 10/2017 - Diagnosed with superficial spreading melanoma of the left leg, [id number], Stage IIIc. 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 12/2017 - Malignant melanoma of the left leg s/p resection with positive lymph node. 01/2018 to 03/2019 - Treated with Opdivo. 08/20/2021 - Right parietal craniotomy. Malignant melanoma. 10/02/2021 - S/p completion of postoperative radiation therapy to brain mets. 09/2021 - Initiation of oral chemotherapy with Dabrafinib and trametinib. 03/19/2022 - Dabrafenib 75 mg twice daily. Trametinib 1.5 mg daily. Dose decreased due to side effect of fatigue. 08/19/2022 - S/p completion of stereotactic radiation therapy to the brain lesion. 09/08/2023 - Biopsy of left frontal lesion with subsequent ALYSHA. Pathology showed brain parenchyma with reactive gliosis, negative for malignancy. 02/20/2024 - MRI brain showed parenchymal abnormality at the treatment site measuring 1.9 cm, not fully characterized. Surrounding vasogenic edema and mild mass effect, increased since pretreatment imaging. 03/03/2024 - Left frontal craniotomy for tumor resection. Pathology showed residual/recurrent metastatic melanoma. 04/19/2024 - S/p completion of radiation therapy to a single brain lesion. Treatment utilizing SBRT. Patient underwent radiation on 04/14/24. Was supposed to have an additional radiation treatment on 04/15/2024, however patient with notable left hip pain which prevented treatment as eluded to above. Case was discussed with Dr. Watkins. Radiation oncology was consulted. Patient received her last radiation treatment on 04/19/24. Delirium and seizure precautions in place. Continue carbamazepine. Patient was on dexamethasone for 5 days prior to radiation, this has since been discontinued. Will need a [facility]Onc follow-up appointment. Hypothyroidism: TSH 16.360 and T4 0.61 on 04/11/24. Levothyroxine dose reduced to 175mcg 6 weeks ago. Dose increased back to 200mcg, will need repeat labs in 6 weeks. Hypertension: Losartan currently on hold. BP stable, continue to monitor off of losartan. Other Chronic Medical Conditions: HLD, depression/insomnia --> Can continue home medications for these specific conditions. DVT Prophylaxis: SCDs Code Status: FULL CODE PCP: Martin Solorio MD Disposition: Admitted in Med/Surg - Patient to be discharged to [facility] on 04/26/24. Patient seen in collaboration with Dr. Jarrell. Please see addendum. I spent a total of 40 minutes coordinating, documenting, and providing care for this patient excluding time spent in the performance of separately billed services. This included personally reviewing all current laboratories and imaging studies, medical reconciliation, outpatient chart review and discussion with specialists. This chart was completed in part utilizing Speech Voice Recognition Software. Grammatical errors, random word insertions, pronoun errors, and incomplete sentences are an occasional consequence of this system due to software limitations, ambient noise, and hardware issues. Any formal questions or concerns about the content, text, or information contained within the body of this dictation should be directly addressed to the provider for clarification. Admission and Anticipated Discharge Date Admission Date: April 11, 2024 Supervising Physician Co-Signing Physician Notes Pt is awaiting placement. seen and examined personally. appears stable. no new complaints. d/w Melanie FROST. I have seen and examined the patient and have discussed the case with the provider above. I agree with the assessment and plan as stated. total time spent 5 min Subjective Patient with no complaints this morning. Still having pain with movement of her left lower extremity. Informed her that [facility] can take her on Friday. She asked me to call her and update him. Review of Systems Review of Systems: At least ten systems reviewed and negative, except as noted in the subjective section. Physical Exam Physical Exam: General: WD/WN, vitals as above, NAD, laying down in bed, pleasant. A+Ox3 during our conversation, euthymic affect. HEENT: Normocephalic, atraumatic. PERRL, conjunctivae normal, anicteric sclerae. External ear and nose normal, oropharynx normal. Respiratory: Normal respiratory effort, lungs clear to auscultation, no wheeze, rales, rhonchi. No accessory muscle use. Cardiovascular: Regular rate, rhythm, no murmur, normal peripheral pulses, no BLE edema. Vessels: No JVD. Abdomen/GI: Normal bowel sounds, soft, nontender, no hepatosplenomegaly. Extremities/Musculoskeletal: No cyanosis or clubbing, pain with movement of LLE. Neurologic: EOMI, no focal deficits, CN's II-XI not formally tested but appear grossly intact bilaterally. Skin: No rashes, normal color, warm/dry. Results & Data Results & Data Vital Signs (Past 12 Hours) Vital Signs Temp Pulse Resp BP Pulse Ox O2 Del Method 04/23/24 08:14 36.6 C 79 18 103/63 95 Room Air (1) Fall Encounter type: initial encounter Qualified Code(s): W19.XXXA - Unspecified fall, initial encounter (2) Fracture of left hip Encounter type: initial encounter Fracture type: closed Qualified Code(s): S72.002A - Fracture of unspecified part of neck of left femur, initial encounter for closed fracture
--- NOTE | 2024-04-24 15:04 | Hospitalist Progress Note ---
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 She lives with her ambulates with a walker at baseline. Left Pelvic Ring Fracture S/P Fall Left hip CT on 04/16/24 showed an acute comminuted parasymphyseal fracture of the left pubic ring Ortho consulted --> stable fracture with no surgical indication, WBAT with ROM as tolerated. Should use a walker and crutches as needed to assist with ambulation. Expect gradual improvement over the next 6-12 weeks however if still painful beyond 12 weeks, orthopedic follow-up should be obtained. Continue pain and lucio l regimens Awaiting placement, arranged for bed at [facility] on Friday Cognitive Impairment Short-term memory notably impacted Brain MRI on 04/12/24 with no new foci of metastatic disease EEG on 04/13/24 --> an abnormal awake and drowsy routine EEG due to generalized background slowing suggestive of a non-specific encephalopathy, no epileptiform discharges or electrographic seizures were seen No acute changes during admission Melanoma Metastatic to Brain, Seizures: Patient follows with [facility] [Dr. Benja Watkins]. Has also been seen by [facility] Radiation Oncology in the past. Treatment history outlined as per below according to [facility] Oncology discharge summary from this morning and previous [facility] documentation: 10/2017 - Diagnosed with superficial spreading melanoma of the left leg, [id number], Stage IIIc. 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 12/2017 - Malignant melanoma of the left leg s/p resection with positive lymph node. 01/2018 to 03/2019 - Treated with Opdivo. 08/20/2021 - Right parietal craniotomy. Malignant melanoma. 10/02/2021 - S/p completion of postoperative radiation therapy to brain mets. 09/2021 - Initiation of oral chemotherapy with Dabrafinib and trametinib. 03/19/2022 - Dabrafenib 75 mg twice daily. Trametinib 1.5 mg daily. Dose decreased due to side effect of fatigue. 08/19/2022 - S/p completion of stereotactic radiation therapy to the brain lesion. 09/08/2023 - Biopsy of left frontal lesion with subsequent ALYSHA. Pathology showed brain parenchyma with reactive gliosis, negative for malignancy. 02/20/2024 - MRI brain showed parenchymal abnormality at the treatment site measuring 1.9 cm, not fully characterized. Surrounding vasogenic edema and mild mass effect, increased since pretreatment imaging. 03/03/2024 - Left frontal craniotomy for tumor resection. Pathology showed residual/recurrent metastatic melanoma. 04/19/2024 - S/p completion of radiation therapy to a single brain lesion. Treatment utilizing SBRT. Patient underwent radiation on 04/14/24. Was supposed to have an additional radiation treatment on 04/15/2024, however patient with notable left hip pain which prevented treatment as eluded to above. Case was discussed with Dr. Watkins. Radiation oncology was consulted. Patient received her last radiation treatment on 04/19/24. Delirium and seizure precautions in place. Continue carbamazepine. Patient was on dexamethasone for 5 days prior to radiation, this has since been discontinued. Will need a [facility] Heme[facility]Onc follow-up appointment. to bring in [facility] and dabrafenib from home as not on formulary Hypothyroidism: TSH 16.360 and T4 0.61 on 04/11/24. Levothyroxine dose reduced to 175mcg 6 weeks ago. Dose increased back to 200mcg, will need repeat labs in 6 weeks. Hypertension: Losartan currently on hold. BP stable, continue to monitor off of losartan. Other Chronic Medical Conditions: HLD, depression/insomnia --> Can continue home medications for these specific conditions. DVT Prophylaxis: SCD given high bleeding risk with brain lesions Code status: FULL PCP: Lyndsey Dispo: Admitted to med/surg- Patient to be discharged to [facility] on 04/26/24. I spent a total of 45 minutes coordinating, documenting, and providing care for this patient excluding time spent in the performance of separately billed services. Admission and Anticipated Discharge Date Admission Date: April 11, 2024 Subjective Patient with no complaints this morning. Still having pain with movement of her left lower extremity but remains comfortable at rest. Informed her that [facility] can take her on Friday. Discussion regarding chemo medications. RN to coordinate with to bring in as they aren't on formulary. No fever, chills, CP, SOB, N/V, abd pain, dysuria, diarrhea or constipation. Review of Systems Review of Systems: At least ten systems reviewed and negative except as noted in the HPI. Physical Exam Physical Exam: Gen: WD/WN, NAD, resting in bed comfortably, A&Ox3 HEENT: Normocephalic, atraumatic, conjunctivae moist, sclerae anicteric, mucous membranes moist Lung: Clear to Auscultation bilaterally Heart: Regular rate, regular rhythm Abdomen: Soft, NT, ND +BS x 4 : Purewik visualized Extremities: TTP left groin area, worse with movement, no BLE edema Skin: Warm, no rash Results & Data Results & Data Vital Signs (Past 12 Hours) Vital Signs Temp Pulse Resp BP Pulse Ox O2 Del Method 04/24/24 07:50 37.1 C 78 16 105/69 96 Room Air Diagnostic Findings Head CT 04/11/24 11:40 CT OF THE HEAD WITHOUT CONTRAST CLINICAL HISTORY: Weakness. History of brain mass. COMPARISON STUDY: Head CT February 26, 2024. MRI of the brain February 27, 2024. CT DOSE: 602.38 mGy.cm TECHNIQUE: Helical axial images of the head were obtained without IV contrast. Automated exposure control was utilized for the study. A dose lowering technique was utilized adhering to the principles of ALARA. FINDINGS: There are no findings to suggest acute dural sinus thrombosis or acute territorial infarct. No acute intracranial hemorrhage, midline shift or mass effect is present. Ventricular system is unremarkable. The basal cisterns are patent. A small hypodense left frontal operative bed fluid collection measures 6 mm in thickness. Right temporoparietal hypodensity is unchanged from earlier exams. This is likely treatment related. There are bilateral craniotomies. A 1.6 cm hypodense focus within the left frontal lobe is noted. There is mild adjacent hypodensity. Findings have markedly improved when compared to MRI of March 08, 2024. IMPRESSION: 1. No acute intracranial findings. 2. Interval left-sided craniotomy with small operative bed hypodense fluid collection which is likely postsurgical. 1.6 cm hypodense focus within the left frontal lobe which is likely postsurgical. Mild edema within the left frontal lobe, markedly improved since previous MRI. 3. Otherwise, unchanged appearance of the head. ACT 112: Negative or not required by law. Electronically signed by: Tc Umaña M.D. 04/11/2024 1:30 PM Chest X-Ray 04/11/24 11:41 PORTABLE SUPINE AP CHEST RADIOGRAPH CLINICAL HISTORY: weakness COMPARISON STUDY: Chest radiograph and chest CT February 26, 2024. FINDINGS: Postoperative findings within the spine are incidentally noted. No pneumothorax or pleural effusion is identified on supine exam. Cardiomegaly is unchanged. There is no consolidation. Pulmonary vascularity is normal. IMPRESSION: No acute cardiopulmonary findings. ACT 112: Negative or not required by law. Electronically signed by: Tc Umaña M.D. 04/11/2024 1:25 PM Hip/Pelvis X-Ray 04/11/24 11:42 XR hip RT 2V w pelvis CLINICAL HISTORY: right hip pain s//p fall COMPARISON: Right femur radiographs September 10, 2019. CT of the abdomen and pelvis February 26, 2024. FINDINGS: Sacroiliac joints and symphysis pubis are intact. There are no acute fractures within the pelvis or hips. There is moderate left and moderate right hip osteoarthritis. Moderate to large amount stool within the sigmoid colon and rectum is present. IMPRESSION: No fractures within the pelvis or hips. ACT 112: Negative or not required by law. Electronically signed by: Tc Umaña M.D. 04/11/2024 1:05 PM Brain MRI 04/12/24 06:14 MR brain wo/w con CLINICAL HISTORY: possible syncope, hx metastatic melanoma to brain TECHNIQUE: Multiplanar and multisequence MR images of the brain were obtained prior to and following administration of gadolinium contrast. Comparison: Comparison is made to MRI brain 02/27/[address] head 04/11/2024 FINDINGS: Postsurgical changes of left frontal craniotomy are now seen. Encephalomalacia/postsurgical changes in the left frontal lobe. Old encephalomalacia and postsurgical changes of the right parietal lobe. There is residual ring enhancement at the left frontal tract. The white matter is unrem arkable. The ventricular system is normal in appearance. There is no evidence of acute intraparenchymal hemorrhage. Mild prominence of the left frontal subarachnoid space, likely postprocedural. No complex features. The corpus callosum, pituitary gland, and cerebellar tonsils appear grossly unremarkable. Flow voids of the major intracranial arterial vessels are identified. The imaged portions of the paranasal sinuses, mastoid air cells, and orbits are unremarkable. Mild left mastoid effusion is seen. IMPRESSION: There is postsurgical change of craniotomy in the left frontal lobe at the site of the previously noted metastatic focus. Rim enhancement is likely related to postprocedural inflammation, however continued follow-up is recommended to exclude viable tumor. No new foci of metastatic disease are seen. ACT 112: Negative or not required by law. Electronically signed by: Seun Gaspar M.D. 04/12/2024 1:47 PM KUB X-Ray 04/12/24 11:17 XR KUB/Abdomen 1 view CLINICAL HISTORY: pre-mri, recnet colonscopy TECHNIQUE: 1 view of the abdomen was obtained. Comparison: None available at the time of this dictation. FINDINGS: Lung bases are unremarkable. Degenerative changes are seen in the visualized skeleton. The bowel gas pattern is nonobstructive. A moderate amount of stool is noted within the large bowel. IMPRESSION: Nonobstructive bowel gas pattern. ACT 112: Negative or not required by law. Electronically signed by: Seun Gaspar M.D. 04/12/2024 12:[address] 04/16/24 13:06 CT SCAN OF THE LEFT HIP WITHOUT IV CONTRAST CLINICAL HISTORY: Left hip pain. COMPARISON STUDY: Pelvic CT dated 02/26/2024. TECHNIQUE: CT scan of the left hip was performed from the bony pelvis to the femoral shaft. Images are reviewed in the axial, sagittal, and coronal planes. IV contrast was not administered for this examination. A dose lowering technique was utilized adhering to the principles of ALARA. Note that interpretation is suboptimal without plain film correlate. CT DOSE: 427.53 mGy.cm FINDINGS: The skeletal structures are osteopenic. There are comminuted parasymphyseal fractures of the superior and inferior left pubic rami with surrounding hemorrhage. Question intramuscular hemorrhage within the left adductors. The left proximal femur appears intact. Mild arthritic change is noted in the left hip. There is mild degenerative sclerosis of the left sacroiliac joint. No lytic or blastic lesion is seen. The regional musculature is normal as visualized. Imaged portions of the bladder are normal in appearance. The uterus is surgically absent. There is no left pelvic sidewall or inguinal lymphadenopathy. IMPRESSION: 1. Acute comminuted parasymphyseal fractures of the left pubic ring as above with surrounding hemorrhage. 2. Question intramuscular hemorrhage within the left adductor group. ACT 112: Negative or not required by law. Electronically signed by: Leonel Ellis M.D. 04/16/2024 2:24 PM (1) Fall Encounter type: initial encounter Qualified Code(s): W19.XXXA - Unspecified fall, initial encounter (2) Fracture of left hip Encounter type: initial encounter Fracture type: closed Qualified Code(s): S72.002A - Fracture of unspecified part of neck of left femur, initial encounter for closed fracture
[2024-04-25 07:28] LABS: Hematocrit (blood only) 33.3 % (37.0-47.0); Hemoglobin 10.7 g/dl (12.0-16.0); Mean Corpuscular Hemoglobin 32.1 pg (25.0-34.0); Mean Corpuscular Hgb Conc 32.1 g/dL (32.0-36.0); Mean Platelet Volume 8.8 fL (9.4-12.4); Platelet Count 492 K/uL (130-400); RDW Coefficient of Variation 16.2 % (11.5-14.5); RDW Standard Deviation 59.4 fL (36.4-46.3); Red Blood Count 3.33 M/uL (4.20-5.40); White Blood Count 6.64 K/ul (4.8-10.8)
[2024-04-25 07:50] LABS: BUN Creatinine Ratio 33.9 (10-20); Calcium 8.8 mg/dl (8.6-10.3); Creatinine Clr Calc Pharmacy 80.8 ml/min
[2024-04-25] MEDS: [UNRECOGNIZED DRUG - OTHER] PO SCH (12:45)
[2024-04-25] MEDS: TRAMETINIB PO SCH (12:45)
[2024-04-25] MEDS: DABRAFENIB MESYLATE PO SCH (12:45)
[2024-04-25] MEDS: [UNRECOGNIZED DRUG - OTHER] PO SCH (12:45)
--- NOTE | 2024-04-25 15:22 | Hospitalist Progress Note ---
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 She lives with her ambulates with a walker at baseline. Left Pelvic Ring Fracture S/P Fall Left hip CT on 04/16/24 showed an acute comminuted parasymphyseal fracture of the left pubic ring Ortho consulted --> stable fracture with no surgical indication, WBAT with ROM as tolerated. Should use a walker and crutches as needed to assist with ambulation. Expect gradual improvement over the next 6-12 weeks however if still painful beyond 12 weeks, orthopedic follow-up should be obtained. Continue pain and lucio l regimens Awaiting placement, arranged for bed at [facility] on Friday Cognitive Impairment Short-term memory notably impacted Brain MRI on 04/12/24 with no new foci of metastatic disease EEG on 04/13/24 --> an abnormal awake and drowsy routine EEG due to generalized background slowing suggestive of a non-specific encephalopathy, no epileptiform discharges or electrographic seizures were seen No acute changes during admission Melanoma Metastatic to Brain, Seizures: Patient follows with [facility] [Dr. Benja Watkins]. Has also been seen by [facility] Radiation Oncology in the past. Treatment history outlined as per below according to [facility] Oncology discharge summary from this morning and previous [facility] documentation: 10/2017 - Diagnosed with superficial spreading melanoma of the left leg, [id number], Stage IIIc. 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 12/2017 - Malignant melanoma of the left leg s/p resection with positive lymph node. 01/2018 to 03/2019 - Treated with Opdivo. 08/20/2021 - Right parietal craniotomy. Malignant melanoma. 10/02/2021 - S/p completion of postoperative radiation therapy to brain mets. 09/2021 - Initiation of oral chemotherapy with Dabrafinib and trametinib. 03/19/2022 - Dabrafenib 75 mg twice daily. Trametinib 1.5 mg daily. Dose decreased due to side effect of fatigue. 08/19/2022 - S/p completion of stereotactic radiation therapy to the brain lesion. 09/08/2023 - Biopsy of left frontal lesion with subsequent ALYSHA. Pathology showed brain parenchyma with reactive gliosis, negative for malignancy. 02/20/2024 - MRI brain showed parenchymal abnormality at the treatment site measuring 1.9 cm, not fully characterized. Surrounding vasogenic edema and mild mass effect, increased since pretreatment imaging. 03/03/2024 - Left frontal craniotomy for tumor resection. Pathology showed residual/recurrent metastatic melanoma. 04/19/2024 - S/p completion of radiation therapy to a single brain lesion. Treatment utilizing SBRT. Patient underwent radiation on 04/14/24. Was supposed to have an additional radiation treatment on 04/15/2024, however patient with notable left hip pain which prevented treatment as eluded to above. Case was discussed with Dr. Watkins. Radiation oncology was consulted. Patient received her last radiation treatment on 04/19/24. Delirium and seizure precautions in place. Continue carbamazepine. Patient was on dexamethasone for 5 days prior to radiation, this has since been discontinued. Will need a [facility] Heme/Onc follow-up appointment. to bring in Mekinist and dabrafenib from home as not on formulary Hypothyroidism: TSH 16.360 and T4 0.61 on 04/11/24. Levothyroxine dose reduced to 175mcg 6 weeks ago. Dose increased back to 200mcg, will need repeat labs in 6 weeks. Hypertension: Losartan currently on hold. BP stable, continue to monitor off of losartan. Other Chronic Medical Conditions: HLD, depression/insomnia --> Can continue home medications for these specific conditions. DVT Prophylaxis: SCD given high bleeding risk with brain lesions Code status: FULL PCP: Lyndsey Dispo: Admitted to med/surg- Patient to be discharged to [facility] on 04/26/24. I spent a total of 35 minutes coordinating, documenting, and providing care for this patient excluding time spent in the performance of separately billed services. Admission and Anticipated Discharge Date Admission Date: April 11, 2024 Subjective Patient with no complaints this morning. Less pain in left lower extremity and groin, remains comfortable at rest. Has been receiving chemo medications brought in by , coordinated with nursing. No fever, chills, CP, SOB, N/V, abd pain, dysuria, diarrhea or constipation. Plan for dc to [facility] tomorrow. Review of Systems Review of Systems: At least ten systems reviewed and negative except as noted in the HPI. Physical Exam Physical Exam: Gen: WD/WN, NAD, resting in bed comfortably, A&Ox3 HEENT: Normocephalic, atraumatic, conjunctivae moist, sclerae anicteric, mucous membranes moist Lung: Clear to Auscultation bilaterally Heart: Regular rate, regular rhythm Abdomen: Soft, NT, ND +BS x 4 : Purewik visualized Extremities: TTP left groin area, worse with movement, no BLE edema Skin: Warm, no rash Results & Data Results & Data Vital Signs (Past 12 Hours) Vital Signs Temp Pulse Resp BP Pulse Ox O2 Del Method 04/25/24 07:50 37.0 C 77 16 108/63 95 Room Air Laboratory Results Short CBC 04/25/24 Range/Units 06:18 WBC 6.64 (4.8-10.8) K/ul Hgb 10.7 L (12.0-16.0) g/dl Hct 33.3 L (37.0-47.0) % Plt Count 492 H (130-400) K/uL BMP 04/25/24 06:18 Sodium 135 L Potassium 4.0 Chloride 102 Carbon Dioxide 28 BUN 20 Creatinine 0.59 L Glucose 102 H Calcium 8.[address] 04/11/24 11:40 CT OF THE HEAD WITHOUT CONTRAST CLINICAL HISTORY: Weakness. History of brain mass. COMPARISON STUDY: Head CT February 26, 2024. MRI of the brain February 27, 2024. CT DOSE: 602.38 mGy.cm TECHNIQUE: Helical axial images of the head were obtained without IV contrast. Automated exposure control was utilized for the study. A dose lowering technique was utilized adhering to the principles of ALARA. FINDINGS: There are no findings to suggest acute dural sinus thrombosis or acute territorial infarct. No acute intracranial hemorrhage, midline shift or mass effect is present. Ventricular system is unremarkable. The basal cisterns are patent. A small hypodense left frontal operative bed fluid collection measures 6 mm in thickness. Right temporoparietal hypodensity is unchanged from earlier exams. This is likely treatment related. There are bilateral craniotomies. A 1.6 cm hypodense focus within the left frontal lobe is noted. There is mild adjacent hypodensity. Findings have markedly improved when compared to MRI of March 08, 2024. IMPRESSION: 1. No acute intracranial findings. 2. Interval left-sided craniotomy with small operative bed hypodense fluid collection which is likely postsurgical. 1.6 cm hypodense focus within the left frontal lobe which is likely postsurgical. Mild edema within the left frontal lobe, markedly improved since previous MRI. 3. Otherwise, unchanged appearance of the head. ACT 112: Negative or not required by law. Electronically signed by: Tc Umaña M.D. 04/11/2024 1:30 PM Chest X-Ray 04/11/24 11:41 PORTABLE SUPINE AP CHEST RADIOGRAPH CLINICAL HISTORY: weakness COMPARISON STUDY: Chest radiograph and chest CT February 26, 2024. FINDINGS: Postoperative findings within the spine are incidentally noted. No pneumothorax or pleural effusion is identified on supine exam. Cardiomegaly is unchanged. There is no consolidation. Pulmonary vascularity is normal. IMPRESSION: No acute cardiopulmonary findings. ACT 112: Negative or not required by law. Electronically signed by: Tc Umaña M.D. 04/11/2024 1:25 PM Hip/Pelvis X-Ray 04/11/24 11:42 XR hip RT 2V w pelvis CLINICAL HISTORY: right hip pain s//p fall COMPARISON: Right femur radiographs September 10, 2019. CT of the abdomen and pelvis February 26, 2024. FINDINGS: Sacroiliac joints and symphysis pubis are intact. There are no acute fractures within the pelvis or hips. There is moderate left and moderate right hip osteoarthritis. Moderate to large amount stool within the sigmoid colon and rectum is present. IMPRESSION: No fractures within the pelvis or hips. ACT 112: Negative or not required by law. Electronically signed by: Tc Umaña M.D. 04/11/2024 1:05 PM Brain MRI 04/12/24 06:14 MR brain wo/w con CLINICAL HISTORY: possible syncope, hx metastatic melanoma to brain TECHNIQUE: Multiplanar and multisequence MR images of the brain were obtained prior to and following administration of gadolinium contrast. Comparison: Comparison is made to MRI brain 02/27/[address] head 04/11/2024 FINDINGS: Postsurgical changes of left frontal craniotomy are now seen. Encephalomalacia/postsurgical changes in the left frontal lobe. Old encephalomalacia and postsurgical changes of the right parietal lobe. There is residual ring enhancement at the left frontal tract. The white matter is unrem arkable. The ventricular system is normal in appearance. There is no evidence of acute intraparenchymal hemorrhage. Mild prominence of the left frontal subarachnoid space, likely postprocedural. No complex features. The corpus callosum, pituitary gland, and cerebellar tonsils appear grossly unremarkable. Flow voids of the major intracranial arterial vessels are identified. The imaged portions of the paranasal sinuses, mastoid air cells, and orbits are unremarkable. Mild left mastoid effusion is seen. IMPRESSION: There is postsurgical change of craniotomy in the left frontal lobe at the site of the previously noted metastatic focus. Rim enhancement is likely related to postprocedural inflammation, however continued follow-up is recommended to exclude viable tumor. No new foci of metastatic disease are seen. ACT 112: Negative or not required by law. Electronically signed by: Seun Gaspar M.D. 04/12/2024 1:47 PM KUB X-Ray 04/12/24 11:17 XR KUB/Abdomen 1 view CLINICAL HISTORY: pre-mri, recnet colonscopy TECHNIQUE: 1 view of the abdomen was obtained. Comparison: None available at the time of this dictation. FINDINGS: Lung bases are unremarkable. Degenerative changes are seen in the visualized skeleton. The bowel gas pattern is nonobstructive. A moderate amount of stool is noted within the large bowel. IMPRESSION: Nonobstructive bowel gas pattern. ACT 112: Negative or not required by law. Electronically signed by: Seun Gaspar M.D. 04/12/2024 12:[address] 04/16/24 13:06 CT SCAN OF THE LEFT HIP WITHOUT IV CONTRAST CLINICAL HISTORY: Left hip pain. COMPARISON STUDY: Pelvic CT dated 02/26/2024. TECHNIQUE: CT scan of the left hip was performed from the bony pelvis to the femoral shaft. Images are reviewed in the axial, sagittal, and coronal planes. IV contrast was not administered for this examination. A dose lowering technique was utilized adhering to the principles of ALARA. Note that interpretation is suboptimal without plain film correlate. CT DOSE: 427.53 mGy.cm FINDINGS: The skeletal structures are osteopenic. There are comminuted parasymphyseal fractures of the superior and inferior left pubic rami with surrounding hemorrhage. Question intramuscular hemorrhage within the left adductors. The left proximal femur appears intact. Mild arthritic change is noted in the left hip. There is mild degenerative sclerosis of the left sacroiliac joint. No lytic or blastic lesion is seen. The regional musculature is normal as visualized. Imaged portions of the bladder are normal in appearance. The uterus is surgically absent. There is no left pelvic sidewall or inguinal lymphadenopathy. IMPRESSION: 1. Acute comminuted parasymphyseal fractures of the left pubic ring as above with surrounding hemorrhage. 2. Question intramuscular hemorrhage within the left adductor group. ACT 112: Negative or not required by law. Electronically signed by: Leonel Ellis M.D. 04/16/2024 2:24 PM (1) Fall Encounter type: initial encounter Qualified Code(s): W19.XXXA - Unspecified fall, initial encounter (2) Fracture of left hip Encounter type: initial encounter Fracture type: closed Qualified Code(s): S72.002A - Fracture of unspecified part of neck of left femur, initial encounter for closed fracture
--- NOTE | 2024-04-26 11:29 | Hospitalist Progress Note ---
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 She lives with her ambulates with a walker at baseline. Left Pelvic Ring Fracture S/P Fall Left hip CT on 04/16/24 showed an acute comminuted parasymphyseal fracture of the left pubic ring Ortho consulted --> stable fracture with no surgical indication, WBAT with ROM as tolerated. Should use a walker and crutches as needed to assist with ambulation. Expect gradual improvement over the next 6-12 weeks however if still painful beyond 12 weeks, orthopedic follow-up should be obtained. Continue pain and luico l regimens Awaiting placement, Plan to discharge to [facility] tomorrow, 04/27. Cognitive Impairment Short-term memory notably impacted Brain MRI on 04/12/24 with no new foci of metastatic disease EEG on 04/13/24 --> an abnormal awake and drowsy routine EEG due to generalized background slowing suggestive of a non-specific encephalopathy, no epileptiform discharges or electrographic seizures were seen No acute changes during admission Melanoma Metastatic to Brain, Seizures: Patient follows with [facility] [Dr. Benja Watkins]. Has also been seen by [facility] Radiation Oncology in the past. Treatment history outlined as per below according to [facility] Oncology discharge summary from this morning and previous [facility] documentation: 10/2017 - Diagnosed with superficial spreading melanoma of the left leg, [id number], Stage IIIc. 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 12/2017 - Malignant melanoma of the left leg s/p resection with positive lymph node. 01/2018 to 03/2019 - Treated with Opdivo. 08/20/2021 - Right parietal craniotomy. Malignant melanoma. 10/02/2021 - S/p completion of postoperative radiation therapy to brain mets. 09/2021 - Initiation of oral chemotherapy with Dabrafinib and trametinib. 03/19/2022 - Dabrafenib 75 mg twice daily. Trametinib 1.5 mg daily. Dose decreased due to side effect of fatigue. 08/19/2022 - S/p completion of stereotactic radiation therapy to the brain lesion. 09/08/2023 - Biopsy of left frontal lesion with subsequent ALYSHA. Pathology showed brain parenchyma with reactive gliosis, negative for malignancy. 02/20/2024 - MRI brain showed parenchymal abnormality at the treatment site measuring 1.9 cm, not fully characterized. Surrounding vasogenic edema and mild mass effect, increased since pretreatment imaging. 03/03/2024 - Left frontal craniotomy for tumor resection. Pathology showed residual/recurrent metastatic melanoma. 04/19/2024 - S/p completion of radiation therapy to a single brain lesion. Treatment utilizing SBRT. Patient underwent radiation on 04/14/24. Was supposed to have an additional radiation treatment on 04/15/2024, however patient with notable left hip pain which prevented treatment as eluded to above. Case was discussed with Dr. Watkins. Radiation oncology was consulted. Patient received her last radiation treatment on 04/19/24. Delirium and seizure precautions in place. Continue carbamazepine. Patient was on dexamethasone for 5 days prior to radiation, this has since been discontinued. Will need a [facility] Heme/Onc follow-up appointment. is supplying pt oral chemo Mekinist and dabrafenib from home as not on formulary Hypothyroidism: TSH 16.360 and T4 0.61 on 04/11/24. Levothyroxine dose reduced to 175mcg 6 weeks ago. Dose increased back to 200mcg, will need repeat labs in 6 weeks. Hypertension: Losartan currently on hold. BP stable, continue to monitor off of losartan. Other Chronic Medical Conditions: HLD, depression/insomnia --> Can continue home medications for these specific conditions. DVT Prophylaxis: SCD given high bleeding risk with brain lesions Code status: FULL PCP: Lyndsey Dispo: Admitted to med/surg- Patient to be discharged to [facility] on 04/27/24 I spent a total of 37 minutes coordinating, documenting, and providing care for this patient excluding time spent in the performance of separately billed services. Admission and Anticipated Discharge Date Admission Date: April 11, 2024 Supervising Physician Co-Signing Physician Notes Pt is awaiting placement. seen and examined personally. appears stable. no new complaints. d/w Uriel FROST. I have seen and examined the patient and have discussed the case with the provider above. I agree with the assessment and plan as stated. total time spent 5 min Subjective NAEO. Pt is moving bowels and tolerating diet. Denies f/c/s, chest pain, sob, n/v/d/. Plan was to d/c today to [facility]; however now they are saying tomorrow. Review of Systems Review of Systems: All systems reviewed & are unremarkable except as noted in HPI & below Physical Exam Physical Exam: Gen: WD/WN, NAD, A&O x3 to basics only HEENT: Normocephalic, atraumatic, conjunctivae moist, sclerae anicteric, mucous membranes moist. Lung: Clear to Auscultation bilaterally, no wheezes/rales/rhonchi Heart: Regular rate, regular rhythm, no murmurs, rubs, or gallops Abdomen: Soft, NT, ND +BS x 4 Extremities: No edema Skin: Warm, no rash, negative turgor. Results & Data Results & Data Vital Signs (Past 12 Hours) Vital Signs Temp Pulse Resp BP Pulse Ox O2 Del Method 04/26/24 07:19 37.3 C 76 18 100/62 94 Room Air Medications Administered Current Inpatient Medications Acetaminophen (Acetaminophen 325 Mg Tab) 650 mg PO Q4H PRN PRN Reason: Pain or Fever Stop: 05/11/24 19:47 Last Admin: 04/23/24 21:54 Dose: 650 mg Atorvastatin Calcium (Atorvastatin 20 Mg Tab) 20 mg PO QPM PORTER Stop: 05/11/24 20:59 Last Admin: 04/25/24 20:31 Dose: 20 mg Carbamazepine (Carbamazepine Xr 200 Mg Tabcr) 400 mg PO AMHS PORTER Stop: 05/11/24 20:59 Last Admin: 04/26/24 08:09 Dose: 400 mg Dabrafenib (Chemo- Dabrafenib Mesylate 75 Mg Capsule) 1 each PO BID PORTER Stop: 05/25/24 09:59 Last Admin: 04/26/24 08:10 Dose: 1 each Famotidine (Famotidine 20 Mg Tab) 20 mg PO QAM PORTER Stop: 05/22/24 08:59 Last Admin: 04/26/24 08:09 Dose: 20 mg Levothyroxine Sodium (Levothyroxine Sodium 200 Mcg Tablet) 200 mcg PO DAILYBB PORTER Stop: 05/12/24 06:29 Last Admin: 04/26/24 06:14 Dose: 200 mcg Lorazepam (Lorazepam 0.5 Mg Tab) 0.5 mg PO Q6H PRN PRN Reason: anxiety Stop: 05/12/24 16:17 Paroxetine HCl (Paroxetine Hcl 20 Mg Tab) 40 mg PO QAM PORTER Stop: 05/12/24 08:59 Last Admin: 04/26/24 08:09 Dose: 40 mg Polyethylene Glycol (Polyethylene (Miralax) 17 Gm Pack) 17 gm PO DAILY PORTER Stop: 05/13/24 12:44 Last Admin: 04/26/24 08:10 Dose: 17 gm Sennosides (Senna 8.6 Mg Tab) 8.6 mg PO BID PORTER Stop: 05/13/24 20:59 Last Admin: 04/26/24 08:10 Dose: 8.6 mg Trametinib (Chemo- Trametinib Dimethyl Sulfoxide 0.5 Mg) 3 each PO QAM PORTER Stop: 05/25/24 09:59 Last Admin: 04/26/24 08:10 Dose: 3 each Trazodone HCl (Trazodone Hcl 50 Mg Tab) 150 mg PO HS PORTER Stop: 05/11/24 20:59 Last Admin: 04/25/24 20:31 Dose: 150 mg (1) Fall Encounter type: initial encounter Qualified Code(s): W19.XXXA - Unspecified fall, initial encounter (2) Fracture of left hip Encounter type: initial encounter Fracture type: closed Qualified Code(s): S72.002A - Fracture of unspecified part of neck of left femur, initial encounter for closed fracture
--- NOTE | 2024-04-27 10:41 | Hospitalist Progress Note ---
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 She lives with her ambulates with a walker at baseline. Left Pelvic Ring Fracture S/P Fall Left hip CT on 04/16/24 showed an acute comminuted parasymphyseal fracture of the left pubic ring Ortho consulted --> stable fracture with no surgical indication, WBAT with ROM as tolerated. Should use a walker and crutches as needed to assist with ambulation. Expect gradual improvement over the next 6-12 weeks however if still painful beyond 12 weeks, orthopedic follow-up should be obtained. Continue pain and lucio l regimens Awaiting placement, Plan to d/c to [place] [facility] when bed available, initially was to be 10/7, may now be 10/ or 10/10 Cognitive Impairment Short-term memory notably impacted Brain MRI on 04/12/24 with no new foci of metastatic disease EEG on 04/13/24 --> an abnormal awake and drowsy routine EEG due to generalized background slowing suggestive of a non-specific encephalopathy, no epileptiform discharges or electrographic seizures were seen No acute changes during admission Melanoma Metastatic to Brain, Seizures: Patient follows with [facility] [Dr. Benja Watkins]. Has also been seen by [facility] Radiation Oncology in the past. Treatment history outlined as per below according to [facility] Oncology discharge summary from this morning and previous [facility] documentation: 10/2017 - Diagnosed with superficial spreading melanoma of the left leg, [id number], Stage IIIc. 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 12/2017 - Malignant melanoma of the left leg s/p resection with positive lymph node. 01/2018 to 03/2019 - Treated with Opdivo. 08/20/2021 - Right parietal craniotomy. Malignant melanoma. 10/02/2021 - S/p completion of postoperative radiation therapy to brain mets. 09/2021 - Initiation of oral chemotherapy with Dabrafinib and trametinib. 03/19/2022 - Dabrafenib 75 mg twice daily. Trametinib 1.5 mg daily. Dose decreased due to side effect of fatigue. 08/19/2022 - S/p completion of stereotactic radiation therapy to the brain lesion. 09/08/2023 - Biopsy of left frontal lesion with subsequent ALYSHA. Pathology showed brain parenchyma with reactive gliosis, negative for malignancy. 02/20/2024 - MRI brain showed parenchymal abnormality at the treatment site measuring 1.9 cm, not fully characterized. Surrounding vasogenic edema and mild mass effect, increased since pretreatment imaging. 03/03/2024 - Left frontal craniotomy for tumor resection. Pathology showed residual/recurrent metastatic melanoma. 04/19/2024 - S/p completion of radiation therapy to a single brain lesion. Treatment utilizing SBRT. Patient underwent radiation on 04/14/24. Was supposed to have an additional radiation treatment on 04/15/2024, however patient with notable left hip pain which prevented treatment as eluded to above. Case was discussed with Dr. Watkins. Radiation oncology was consulted. Patient received her last radiation treatment on 04/19/24. Delirium and seizure precautions in place. Continue carbamazepine. Patient was on dexamethasone for 5 days prior to radiation, this has since been discontinued. Will need a [facility] Heme[facility]Onc follow-up appointment. is supplying pt oral chemo Mekinist and dabrafenib from home as not on formulary Hypothyroidism: TSH 16.360 and T4 0.61 on 04/11/24. Levothyroxine dose reduced to 175mcg 6 weeks ago. Dose increased back to 200mcg, will need repeat labs in 6 weeks. Hypertension: BP stable, discontinue losartan as discharge as not indicated at this time Other Chronic Medical Conditions: HLD, depression/insomnia --> Can continue home medications for these specific conditions. DVT Prophylaxis: SCD given high bleeding risk with brain lesions Code status: FULL PCP: Lyndsey Dispo: Admitted to med/surg- Patient to be discharged to [place] [facility] on 04/27/24 Spoke to Kwame Garcia to provide update. He is in agreement with plan to d/c to [facility] when available. I spent a total of 32 minutes coordinating, documenting, and providing care for this patient excluding time spent in the performance of separately billed services. Admission and Anticipated Discharge Date Admission Date: April 11, 2024 Subjective NAEO. She is unsure how she slept, "so it must of been good." She offers no acute concerns, n/v/d, f/c/s. She is tolerating diet and moving bowels. Review of Systems Review of Systems: All systems reviewed & are unremarkable except as noted in HPI & below Physical Exam Physical Exam: Gen: WD/WN, NAD, A&O x3 to basics only HEENT: Normocephalic, atraumatic, conjunctivae moist, sclerae anicteric, mucous membranes moist. Lung: Clear to Auscultation bilaterally, no wheezes/rales/rhonchi Heart: Regular rate, regular rhythm, no murmurs, rubs, or gallops Abdomen: Soft, NT, ND +BS x 4 Extremities: No edema Skin: Warm, no rash, negative turgor. Results & Data Results & Data Vital Signs (Past 12 Hours) Vital Signs Temp Pulse Resp BP Pulse Ox O2 Del Method 04/27/24 07:34 36.7 C 76 18 105/67 94 Room Air Medications Administered Current Inpatient Medications Acetaminophen (Acetaminophen 325 Mg Tab) 650 mg PO Q4H PRN PRN Reason: Pain or Fever Stop: 05/11/24 19:47 Last Admin: 04/23/24 21:54 Dose: 650 mg Atorvastatin Calcium (Atorvastatin 20 Mg Tab) 20 mg PO QPM PORTER Stop: 05/11/24 20:59 Last Admin: 04/26/24 20:21 Dose: 20 mg Carbamazepine (Carbamazepine Xr 200 Mg Tabcr) 400 mg PO AMHS PORTER Stop: 05/11/24 20:59 Last Admin: 04/27/24 08:20 Dose: 400 mg Dabrafenib (Chemo- Dabrafenib Mesylate 75 Mg Capsule) 1 each PO BID PORTER Stop: 05/25/24 09:59 Last Admin: 04/27/24 08:21 Dose: 1 each Famotidine (Famotidine 20 Mg Tab) 20 mg PO QAM PORTER Stop: 05/22/24 08:59 Last Admin: 04/27/24 08:20 Dose: 20 mg Levothyroxine Sodium (Levothyroxine Sodium 200 Mcg Tablet) 200 mcg PO DAILYBB PORTER Stop: 05/12/24 06:29 Last Admin: 04/27/24 05:44 Dose: 200 mcg Lorazepam (Lorazepam 0.5 Mg Tab) 0.5 mg PO Q6H PRN PRN Reason: anxiety Stop: 05/12/24 16:17 Paroxetine HCl (Paroxetine Hcl 20 Mg Tab) 40 mg PO QAM PORTER Stop: 05/12/24 08:59 Last Admin: 04/27/24 08:20 Dose: 40 mg Polyethylene Glycol (Polyethylene (Miralax) 17 Gm Pack) 17 gm PO DAILY PORTER Stop: 05/13/24 12:44 Last Admin: 04/27/24 08:17 Dose: Not Given Sennosides (Senna 8.6 Mg Tab) 8.6 mg PO BID PORTER Stop: 05/13/24 20:59 Last Admin: 04/27/24 08:20 Dose: 8.6 mg Trametinib (Chemo- Trametinib Dimethyl Sulfoxide 0.5 Mg) 3 each PO QAM PORTER Stop: 05/25/24 09:59 Last Admin: 04/27/24 08:21 Dose: 3 each Trazodone HCl (Trazodone Hcl 50 Mg Tab) 150 mg PO HS PORTER Stop: 05/11/24 20:59 Last Admin: 04/26/24 20:23 Dose: 150 mg (1) Fall Encounter type: initial encounter Qualified Code(s): W19.XXXA - Unspecified fall, initial encounter (2) Fracture of left hip Encounter type: initial encounter Fracture type: closed Qualified Code(s): S72.002A - Fracture of unspecified part of neck of left femur, initial encounter for closed fracture
[2024-04-27 20:24] VITALS: RESP 16
[2024-04-28 07:28] VITALS: BP 104/68; PULSE 76; TEMP 98.2; O2SAT 95
--- NOTE | 2024-04-28 10:04 | Discharge Summary ---
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 She lives with her ambulates with a walker at baseline. Left Pelvic Ring Fracture S/P Fall Left hip CT on 04/16/24 showed an acute comminuted parasymphyseal fracture of the left pubic ring Ortho consulted --> stable fracture with no surgical indication, WBAT with ROM as tolerated. Should use a walker and crutches as needed to assist with ambulation. Expect gradual improvement over the next 6-12 weeks however if still painful beyond 12 weeks, orthopedic follow-up should be obtained. Continue pain and bowel regimens Awaiting placement, Plan to d/c to [facility] when bed available, initially was to be 10/7, may now be 10/9 or 10/10 Cognitive Impairment Short-term memory notably impacted Brain MRI on 04/12/24 with no new foci of metastatic disease EEG on 04/13/24 --> an abnormal awake and drowsy routine EEG due to generalized background slowing suggestive of a non-specific encephalopathy, no epileptiform discharges or electrographic seizures were seen No acute changes during admission Melanoma Metastatic to Brain, Seizures: Patient follows with [facility] [Dr. Benja Watkins]. Has also been seen by [facility] Radiation Oncology in the past. Treatment history outlined as per below according to [facility] Oncology discharge summary from this morning and previous [facility] documentation: 10/2017 - Diagnosed with superficial spreading melanoma of the left leg, [id number], Stage IIIc. 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 12/2017 - Malignant melanoma of the left leg s/p resection with positive lymph node. 01/2018 to 03/2019 - Treated with Opdivo. 08/20/2021 - Right parietal craniotomy. Malignant melanoma. 10/02/2021 - S/p completion of postoperative radiation therapy to brain mets. 09/2021 - Initiation of oral chemotherapy with Dabrafinib and trametinib. 03/19/2022 - Dabrafenib 75 mg twice daily. Trametinib 1.5 mg daily. Dose decreased due to side effect of fatigue. 08/19/2022 - S/p completion of stereotactic radiation therapy to the brain lesion. 09/08/2023 - Biopsy of left frontal lesion with subsequent ALYSHA. Pathology showed brain parenchyma with reactive gliosis, negative for malignancy. 02/20/2024 - MRI brain showed parenchymal abnormality at the treatment site measuring 1.9 cm, not fully characterized. Surrounding vasogenic edema and mild mass effect, increased since pretreatment imaging. 03/03/2024 - Left frontal craniotomy for tumor resection. Pathology showed residual/recurrent metastatic melanoma. 04/19/2024 - S/p completion of radiation therapy to a single brain lesion. Treatment utilizing SBRT. Patient underwent radiation on 04/14/24. Was supposed to have an additional radiation treatment on 04/15/2024, however patient with notable left hip pain which prevented treatment as eluded to above. Case was discussed with Dr. Watkins. Radiation oncology was consulted. Patient received her last radiation treatment on 04/19/24. Delirium and seizure precautions in place. Continue carbamazepine. Patient was on dexamethasone for 5 days prior to radiation, this has since been discontinued. Will need a [facility] Heme/Onc follow-up appointment. is supplying pt oral chemo Mekinist and dabrafenib from home as not on formulary Hypothyroidism: TSH 16.360 and T4 0.61 on 04/11/24. Levothyroxine dose reduced to 175mcg 6 weeks ago. Dose increased back to 200mcg, will need repeat labs in 6 weeks. Hypertension: BP stable - now off oral antihypertensive losartan as bp well controlled with out it Other Chronic Medical Conditions: HLD, depression/insomnia --> Can continue home medications for these specific conditions. DVT Prophylaxis: SCD given high bleeding risk with brain lesions Code status: FULL PCP: Lyndsey Dispo: Discharge to [facility] today Notes For Next Care Provider please obtain CBC, BMP, Mag within 3 days of discharge Continue PT/OT she may WBAT. If she is continuing to have a lot of pain or difficulty walking please have her follow up with [facility]. Pt is to provide her home oral chemotherapy medications, Mekinist and dabrafenib. Please ensure pt has follow up with Heme/Onc and PCP at discharge. Medication Changes From Visit Levothyroxine increased to 200 mcg Losartan discontinued due to blood pressure being on the low normal side Admission HPI Per Admitting Provider 63-year-old female with PMH HTN, CAD, seizure disorder, metastatic melanoma with metastases to brain s/p prior resection currently on oral chemotherapy and receiving radiation, and other problems listed below who presented to the ED for evaluation after a fall and generalized weakness. History is limited from the patient as she suffers from short-term memory loss due to her metastatic melanoma with brain lesions. She states that she went to bed feeling in her usual state of health the next thing she knew she was on the floor. Her was unable to get her off the floor so EMS was called and patient was brought to the ED for further evaluation. I spoke to patient's and he is unsure of how the patient ended up on the floor as well. Patient reports she otherwise has been feeling well recently. No other recent illnesses, fevers, chills. She denies chest pain or shortness of breath. No lightheadedness, dizziness, diaphoresis, syncopal events. She denies abdominal pain, nausea, vomiting, diarrhea. No urinary symptoms. Upon arrival to the ED patient was hypotensive that improved with IVF. UA is suggestive of possible UTI and patient was given a dose of IV Zosyn. Head CT with chronic findings. Admission Exam Per Admitting Provider WD/WN, vitals as above no acute distress Chronically ill-appearing Eyes: PERRL, conjunctivae normal, anicteric sclerae ENMT: external ear and nose normal, oropharynx normal Respiratory: normal respiratory effort, lungs clear to auscultation Cardiovascular: Rate/Rhythm: regular rate and regular rhythm Vessels: normal peripheral pulses Extremities: no edema Gastrointestinal (Abdomen): normal bowel sounds, soft, nontender, no hepatosplenomegaly Skin: no rashes, warm and dry Neurologic: PERRL, EOMI, accommodation nl, no face palsy, no dysarthria Psychiatric: Orientation: alert, oriented to person and oriented to place; + not oriented to time Cognition: + recent memory not intact Insight: + limited insight Discharge Exam Gen: WD/WN, NAD, A&O x3 to basics only HEENT: Normocephalic, atraumatic, conjunctivae moist, sclerae anicteric, mucous membranes moist. Lung: Clear to Auscultation bilaterally, no wheezes/rales/rhonchi Heart: Regular rate, regular rhythm, no murmurs, rubs, or gallops Abdomen: Soft, NT, ND +BS x 4 Extremities: No edema Skin: Warm, no rash, negative turgor. Updated Medication List Medication Instructions Recorded Confirmed Type dabrafenib 75 mg capsule (Tafinlar) 75 mg PO AMHS 07/30/22 04/11/24 History dexamethasone 4 mg tablet 4 mg PO UD 04/11/24 04/11/24 History trametinib 0.5 mg tablet (Mekinist) 1 mg PO DAILY 04/11/24 04/20/24 History levothyroxine 200 mcg tablet 200 mcg PO DAILYBB 30 days #30 tabs 04/16/24 Rx (Synthroid) atorvastatin 20 mg tablet 20 mg PO QPM #30 tabs 04/28/24 Rx carbamazepine 200 mg 400 mg (2 x 200 mg) PO AMHS #60 04/28/24 Rx tablet,extended release,12 hr tabs lorazepam 0.5 mg tablet 0.5 mg PO Q6H PRN anxiety #10 tabs 04/28/24 Rx multivitamin 1 tab PO QAM #30 tabs 04/28/24 Rx ondansetron HCl 8 mg tablet 8 mg PO BID PRN nausea #10 tabs 04/28/24 Rx paroxetine HCl 40 mg tablet 40 mg PO QAM #30 tabs 04/28/24 Rx trazodone 100 mg tablet 150 mg (1.5 x 100 mg) PO HS #45 04/28/24 Rx tabs triamcinolone acetonide 0.1 % 1 applic topical BID itching #15 04/28/24 Rx topical cream grams Hospital Stay Data Consultations 04/11/24 15:25 ED Decision to Admit Stat 04/16/24 14:44 Consult Orthopedic Surgery Routine (1) Pelvic ring fracture: 63-year-old female with ongoing chemotherapy and radiation admitted after a fall with an occult osteoporotic pubic rami fracture. The fracture is stable and the focus should be on pain management. No surgical indications. She can be weightbearing and range of motion as tolerated. I counseled her this may be several weeks to start feeling better. She should use a walker and her crutches as needed to assist with ambulation. Expect gradual improvement over the next 6 to 12 weeks. If still painful beyond 12 weeks, orthopedic follow-up should be obtained. Please contact me via Page text for any further questions Diagnostic Imagining Performed Head CT 04/11/24 11:40 CT OF THE HEAD WITHOUT CONTRAST CLINICAL HISTORY: Weakness. History of brain mass. COMPARISON STUDY: Head CT February 26, 2024. MRI of the brain February 27, 2024. CT DOSE: 602.38 mGy.cm TECHNIQUE: Helical axial images of the head were obtained without IV contrast. Automated exposure control was utilized for the study. A dose lowering technique was utilized adhering to the principles of ALARA. FINDINGS: There are no findings to suggest acute dural sinus thrombosis or acute territorial infarct. No acute intracranial hemorrhage, midline shift or mass effect is present. Ventricular system is unremarkable. The basal cisterns are patent. A small hypodense left frontal operative bed fluid collection measures 6 mm in thickness. Right temporoparietal hypodensity is unchanged from earlier exams. This is likely treatment related. There are bilateral craniotomies. A 1.6 cm hypodense focus within the left frontal lobe is noted. There is mild adjacent hypodensity. Findings have markedly improved when compared to MRI of March 08, 2024. IMPRESSION: 1. No acute intracranial findings. 2. Interval left-sided craniotomy with small operative bed hypodense fluid collection which is likely postsurgical. 1.6 cm hypodense focus within the left frontal lobe which is likely postsurgical. Mild edema within the left frontal lobe, markedly improved since previous MRI. 3. Otherwise, unchanged appearance of the head. ACT 112: Negative or not required by law. Electronically signed by: Tc Umaña M.D. 04/11/2024 1:30 PM Chest X-Ray 04/11/24 11:41 PORTABLE SUPINE AP CHEST RADIOGRAPH CLINICAL HISTORY: weakness COMPARISON STUDY: Chest radiograph and chest CT February 26, 2024. FINDINGS: Postoperative findings within the spine are incidentally noted. No pneumothorax or pleural effusion is identified on supine exam. Cardiomegaly is unchanged. There is no consolidation. Pulmonary vascularity is normal. IMPRESSION: No acute cardiopulmonary findings. ACT 112: Negative or not required by law. Electronically signed by: Tc Umaña M.D. 04/11/2024 1:25 PM Hip/Pelvis X-Ray 04/11/24 11:42 XR hip RT 2V w pelvis CLINICAL HISTORY: right hip pain s//p fall COMPARISON: Right femur radiographs September 10, 2019. CT of the abdomen and pelvis February 26, 2024. FINDINGS: Sacroiliac joints and symphysis pubis are intact. There are no acute fractures within the pelvis or hips. There is moderate left and moderate right hip osteoarthritis. Moderate to large amount stool within the sigmoid colon and rectum is present. IMPRESSION: No fractures within the pelvis or hips. ACT 112: Negative or not required by law. Electronically signed by: Tc Umaña M.D. 04/11/2024 1:05 PM Brain MRI 04/12/24 06:14 MR brain wo/w con CLINICAL HISTORY: possible syncope, hx metastatic melanoma to brain TECHNIQUE: Multiplanar and multisequence MR images of the brain were obtained prior to and following administration of gadolinium contrast. Comparison: Comparison is made to MRI brain 02/27/[address] head 04/11/2024 FINDINGS: Postsurgical changes of left frontal craniotomy are now seen. Encepha lomalacia/postsurgical changes in the left frontal lobe. Old encephalomalacia and postsurgical changes of the right parietal lobe. There is residual ring enhancement at the left frontal tract. The white matter is unremarkable. The ventricular system is normal in appearance. There is no evidence of acute intraparenchymal hemorrhage. Mild prominence of the left frontal subarachnoid space, likely postprocedural. No complex features. The corpus callosum, pituitary gland, and cerebellar tonsils appear grossly unremarkable. Flow voids of the major intracranial arterial vessels are identified. The imaged portions of the paranasal sinuses, mastoid air cells, and orbits are unremarkable. Mild left mastoid effusion is seen. IMPRESSION: There is postsurgical change of craniotomy in the left frontal lobe at the site of the previously noted metastatic focus. Rim enhancement is likely related to postprocedural inflammation, however continued follow-up is recommended to exclude viable tumor. No new foci of metastatic disease are seen. ACT 112: Negative or not required by law. Electronically signed by: Seun Gaspar M.D. 04/12/2024 1:47 PM KUB X-Ray 04/12/24 11:17 XR KUB/Abdomen 1 view CLINICAL HISTORY: pre-mri, recnet colonscopy TECHNIQUE: 1 view of the abdomen was obtained. Comparison: None available at the time of this dictation. FINDINGS: Lung bases are unremarkable. Degenerative changes are seen in the visualized skeleton. The bowel gas pattern is nonobstructive. A moderate amount of stool is noted within the large bowel. IMPRESSION: Nonobstructive bowel gas pattern. ACT 112: Negative or not required by law. Electronically signed by: Seun Gaspar M.D. 04/12/2024 12:[address] 04/16/24 13:06 CT SCAN OF THE LEFT HIP WITHOUT IV CONTRAST CLINICAL HISTORY: Left hip pain. COMPARISON STUDY: Pelvic CT dated 02/26/2024. TECHNIQUE: CT scan of the left hip was performed from the bony pelvis to the femoral shaft. Images are reviewed in the axial, sagittal, and coronal planes. IV contrast was not administered for this examination. A dose lowering technique was utilized adhering to the principles of ALARA. Note that interpretation is suboptimal without plain film correlate. CT DOSE: 427.53 mGy.cm FINDINGS: The skeletal structures are osteopenic. There are comminuted parasymphyseal fractures of the superior and inferior left pubic rami with surrounding hemorrhage. Question intramuscular hemorrhage within the left adductors. The left proximal femur appears intact. Mild arthritic change is noted in the left hip. There is mild degenerative sclerosis of the left sacroiliac joint. No lytic or blastic lesion is seen. The regional musculature is normal as visualized. Imaged portions of the bladder are normal in appearance. The uterus is surgically absent. There is no left pelvic sidewall or inguinal lymphadenopathy. IMPRESSION: 1. Acute comminuted parasymphyseal fractures of the left pubic ring as above with surrounding hemorrhage. 2. Question intramuscular hemorrhage within the left adductor group. ACT 112: Negative or not required by law. Electronically signed by: Leonel Ellis M.D. 04/16/2024 2:24 PM Pending Results Patient Have Any Pending Studies at Discharge: No Discharge Instructions Given to Patient (Per Discharging Provider) MEDICATION CHANGES: Levothyroxine increased to 200 mcg Losartan discontinued due to blood pressure being on the low normal side SUMMARY OF TEST RESULTS: You were admitted to hospital secondary to fall. Left hip CT on 04/16/24 showed an acute comminuted parasymphyseal fracture of the left pubic ring. Conservative measures recommended per ortho surgery. While inpatient you completed your radiation therapy. PENDING TEST RESULTS: None RECOMMENDATIONS FOR FOLLOW-UP: Follow up with PCP as scheduled. Follow up with [facility] onc for metastatic melanoma. WBAT with walker and crutches - if still painful beyond 12 wks, should schedule a follow up appointment with [facility] Continue medication regimen as scheduled aside from changes noted above. Repeat thyroid function tests in 6 weeks. Please provide [facility] with your oral chemo medications OTHER INSTRUCTIONS: Seek medical attention if you have: * temperature above 101 * chest pain or trouble breathing * abdominal pain, nausea, vomiting * diarrhea, dark stools or bloody stools * any unanswered questions or concerns Call 911 if symptoms are severe. Please take good care of yourself. Call if you have any questions or problems. You can reach a [facility] hospitalist on duty at [facility] 24 hours a day by calling [phone]. Total Time Total Time Spent Total Time Spent (In Minutes): 35 minutes Supervising Physician Co-Signing Physician Notes I have seen and discussed the case with the collaborating advanced practitioner. I agree with the above discharge summary. I have reviewed and confirmed the patients medical history, the findings on physical examination, and the patients diagnosis and treatment plan with Mindy FROST and agree with the information documented. In short, Ms Garcia is a 64 year old woman with pelvic ring fracture 2/2 fall. work did not reveal cause/precipitating factor leading to fall. Patient completed radiation cycle while hospitalized. On day of discharge, patient was without acute concerns or pain, eating well and working with PT. [facility] Agree with plan above. I spent a total of 15 minutes coordinating, documenting, and providing care for this patient excluding time spent in the performance of separately billed services. All of the aforementioned completed outside of collaborating with the assigned advanced practitioner for a full treatment plan. I have reviewed the advanced practitioner's documentation, and I agree with, and take responsibility for the plan of care
== END 2024-04-28 10:57 | DRG 543 ==
LOC: ED 10:55 → 2E 15:40 → SUATTDRO 15:40 → 2E 19:03 → 3N 04-13 18:15

== ENCOUNTER 2024-07-06 09:29 | Inpatient (IN) ==
--- NOTE | 2024-07-06 09:47 | Emergency Department Note ---
Impression & Plan Acute UTI Admission ED Provider Note HPI: History obtained from patient. The patient is a 64-year-old female with history of malignant melanoma with metastatic disease to the brain, presents the emergency department with a chief complaint of altered mental status from home. Patient reportedly was found in an altered state incontinent of urine and EMS was contacted. Patient was then brought to the emergency room. On arrival here to the ED, the patient is unable to provide me with much history. Patient is alert on arrival, she does not have any focal motor deficits. ROS: - Per HPI Differential Diagnosis: Seizure, stroke, sepsis, critical electrolyte abnormalities, dehydration/acute kidney injury, urinary tract infection, pneumonia, amongst other potential pathologies. *Outpatient medications and allergy history reviewed. PE: General: Alert, disheveled appearing, not oriented to place or time HEENT: Normocephalic, trachea midline Eyes: Extraocular eye movement is intact, no scleral erythema Pulmonary: Clear to auscultation bilaterally, no wheezing Cardio: Regular rate and rhythm GI: Abdomen is soft to palpation : No suprapubic tenderness MSK: No evidence of trauma or malformation of the extremities, no edema Skin: No evidence of rash Neuro: Alert, no focal deficits Psychiatric: Cooperative INDEPENDENT INTERPRETATIONS: child monitor: (As interpreted by myself): - An order was placed for continuous cardiac monitoring - Patient was noted to be in sinus rhythm with a rate of 70 EKG: (As interpreted by myself): Rate: 75 Rhythm: Normal sinus rhythm Intervals: Within normal limits ST changes: No ST elevation Time: 0935 Chest x-ray: (As interpreted by myself): No acute disease Interventions provided in ED: -IV fluid bolus, IV Keppra, IV ceftriaxone Medical Decision Making: Patient presented to the emergency department with reported altered mental status being incontinent of urine. I was able to establish contact with the patient's over the phone. He states that he has not noticed altered mentation but the patient has been weak and she has not been eating and drinking very much over the past several days. He had concern about dehydration and therefore contacted the ambulance this morning. Per EMS report the patient was on the couch and there was urine all over the couch soaked in. Patient's states he was unaware of this. Lab work shows a mild leukocytosis 11.90, hemoglobin is normal, platelet count is slightly elevated at 422, venous blood gas shows slightly alkalotic pH at 7.43, CMP does not show any evidence of any critical findings. Alk phos is mildly elevated at 327, total creatinine kinase is elevated at 295. Troponin is negative. TSH is noted to be elevated at 17.4. Urinalysis shows concern for infection as it is urine nitrite positive as well as leukocyte esterase 1+. Blood cultures were ordered as well as urine culture and the patient was placed on IV ceftriaxone. At this point given the patient's progressive decline at home in addition to finding of urinary tract infection I feel that she would benefit from inpatient admission for IV antibiotics. Case was discussed with the on-call midlevel provider for [facility], Regina Murray, and the patient was placed for admission in stable condition to the service of Dr. Willis. Consultants/Discussions held with other healthcare providers: -Hospitalist, Dr. Willis Diagnosis: 1. Urinary tract infection, acute 2. Elevated total CK level, acute 3. Leukocytosis, acute 4. Generalized fatigue weakness, acute 5. History of metastatic cancer to the brain, status postcraniotomy x 2 6. History of seizure disorder Disposition: Admission Martin Avila DO Emergency Medicine Past Med/Surg History Problem List (Updated 07/06/24 @ 13:13 by Martin Avila DO) Acute UTI (Acute) Closed fracture of pubic ramus AMS (altered mental status) Fracture of left hip Pelvic ring fracture Weakness (Acute) Hypothyroidism Combined receptive and expressive aphasia Vasogenic edema (Acute) Memory changes Melanoma metastatic to brain (Chronic) Medical History Fall Acute UTI (urinary tract infection) Acute hypotension Seizure disorder History of melanoma October 2017 --diag with superficial spreading melanoma of the left leg, [id number], Stage IIIc. 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 S/p re-excision and SLNB 12/26/2017 (-margins; 3 of 3 nodes involved) S/p nivolumab 02/04 - 04/08 S/p right parietal craniotomy for near total resection 08/20/2021 S/p Radiation therapy to brain mets, including post op bed; Aug -September 2021 S/p dabrafinib and trametinib 10/09 --dose reduced in mid 2021; ongoing Rx Jul 2022--SRS to left frontal lobe Aug 2023--s/p ALYSHA and bx of Left Frontal mass. Path-- brain parenchyma with reactive gliosis.Negative for malignancy. MRI feb 20, 2024--Parenchymal abnormality at the treatment site measuring 1.9 cm, not fully characterized. Surrounding vasogenic edema and mild mass effect, increased since pretreatment imaging. 03/03/2024--s/p L frontal craniotomy for resection ( Dr Hand) ; path showed Residual/recurrent metastatic melanoma No pertinent past medical history Surgical History S/P craniotomy Dr. Hand [facility] Neurosurgery 03/03/24 Left frontal craniotomy for tumor resection with vycor tube and dynamic retraction, use of brainlab neuronavigation, use of neurophysiological monitoring (SSEP/MEP/motor language, subcortical stimulation) Status post right foot surgery History of knee replacement procedure of left knee History of partial hysterectomy H/O craniotomy History of back surgery History of brain surgery x2 Hx of cholecystectomy Family History Grandfather (Maternal) Cancer Breast cancer Sister Cancer Breast cancer Father Cancer Colon cancer Social History Smoking Status: Current every day smoker Tobacco Type: Cigarettes Cigarettes Per Day: 13; Do You Dip or Chew Tobacco: No; Hx Alcohol Use: Yes Hx Substance Use: No Preferred Language: Lao Communication Ability: Unable Visual Impairment: No Limitations Hearing Ability: Normal Multimedia Engineer Required: No Beliefs That Will Affect Care: None marital status: Current Living Situation: Spouse current occupational status: employed 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 Uncoded 07/06/24 12:42 On file w/ [facility]. Home Meds Home Medications Medication Instructions Recorded Confirmed dabrafenib 75 mg capsule (Tafinlar) 75 mg PO AMHS 07/30/22 07/06/24 dexamethasone 4 mg tablet 4 mg PO UD 04/11/24 07/06/24 trametinib 0.5 mg tablet (Mekinist) 0 mg PO QAM 04/11/24 07/06/24 atorvastatin 20 mg tablet 20 mg PO QPM 07/06/24 07/06/24 carbamazepine 200 mg 400 - 600 mg PO UD 07/06/24 07/06/24 tablet,extended release,12 hr ergocalciferol (vitamin D2) 1,250 50,000 unit PO WK 07/06/24 07/06/24 mcg (50,000 unit) capsule levothyroxine 200 mcg tablet 200 mcg PO DAILY 07/06/24 07/06/24 losartan 50 mg tablet 50 mg PO QAM 07/06/24 07/06/24 tramadol 50 mg tablet 50 mg PO TID PRN Moderate Pain 07/06/24 07/06/24 (Scale Score 5-6) trazodone 100 mg tablet 0 mg PO HS 07/06/24 07/06/24 Previous Rx's Medication Instructions Recorded lorazepam 0.5 mg tablet 0.5 mg PO Q6H PRN anxiety #10 tabs 04/28/24 multivitamin 1 tab PO QAM #30 tabs 04/28/24 ondansetron HCl 8 mg tablet 8 mg PO BID PRN nausea #10 tabs 04/28/24 paroxetine HCl 40 mg tablet 40 mg PO QAM #30 tabs 04/28/24 triamcinolone acetonide 0.1 % 1 applic topical BID itching #15 04/28/24 topical cream grams Results & Data (ED) Vital Signs Vital Signs - 24 hr 07/06/24 09:19 07/06/24 09:40 07/06/24 10:09 Temperature 37.0 C Temperature Source Oral Pulse Rate 76 85 Pulse Rate from SpO2 Sensor Respiratory Rate 18 Respiratory Effort / Characteristics Non-Labored Spontaneous Respiratory Depth Normal Respiratory Pattern Regular Blood Pressure 142/84 H Blood Pressure Mean 103 Blood Pressure Position Lying Pulse Oximetry 94 94 Oxygen Delivery Method Room Air Room Air Sepsis Recent Fever Within 48 Hours No Sepsis New/Unexplained Change in Mental Status N/A Sepsis Action Taken by Nursing No Action Required 07/06/24 10:09 07/06/24 10:42 07/06/24 11:21 Temperature Temperature Source Pulse Rate 73 71 70 Pulse Rate from SpO2 Sensor 72 Respiratory Rate 23 20 15 Respiratory Effort / Characteristics Respiratory Depth Respiratory Pattern Blood Pressure Blood Pressure Mean Blood Pressure Position Pulse Oximetry 96 Oxygen Delivery Method Sepsis Recent Fever Within 48 Hours Sepsis New/Unexplained Change in Mental Status Sepsis Action Taken by Nursing 07/06/24 11:22 07/06/24 11:27 07/06/24 11:27 Temperature Temperature Source Pulse Rate 71 Pulse Rate from SpO2 Sensor 71 Respiratory Rate 12 Respiratory Effort / Characteristics Respiratory Depth Respiratory Pattern Blood Pressure 132/86 Blood Pressure Mean 99 Blood Pressure Position Pulse Oximetry 94 96 Oxygen Delivery Method Room Air Sepsis Recent Fever Within 48 Hours Sepsis New/Unexplained Change in Mental Status Sepsis Action Taken by Nursing 07/06/24 11:30 07/06/24 11:32 07/06/24 12:00 Temperature Temperature Source Pulse Rate 75 73 Pulse Rate from SpO2 Sensor 70 Respiratory Rate 18 25 H Respiratory Effort / Characteristics Respiratory Depth Respiratory Pattern Blood Pressure 156/49 H Blood Pressure Mean 124 Blood Pressure Position Pulse Oximetry 92 Oxygen Delivery Method Sepsis Recent Fever Within 48 Hours Sepsis New/Unexplained Change in Mental Status Sepsis Action Taken by Nursing 07/06/24 12:01 07/06/24 12:06 07/06/24 12:07 Temperature Temperature Source Pulse Rate 75 Pulse Rate from SpO2 Sensor Respiratory Rate 19 Respiratory Effort / Characteristics Respiratory Depth Respiratory Pattern Blood Pressure 142/101 H 151/82 H Blood Pressure Mean 135 111 Blood Pressure Position Pulse Oximetry Oxygen Delivery Method Sepsis Recent Fever Within 48 Hours Sepsis New/Unexplained Change in Mental Status Sepsis Action Taken by Nursing 07/06/24 12:27 07/06/24 12:30 07/06/24 12:30 Temperature Temperature Source Pulse Rate 84 Pulse Rate from SpO2 Sensor Respiratory Rate 14 Respiratory Effort / Characteristics Respiratory Depth Respiratory Pattern Blood Pressure 135/72 135/72 Blood Pressure Mean 96 96 Blood Pressure Position Pulse Oximetry Oxygen Delivery Method Sepsis Recent Fever Within 48 Hours Sepsis New/Unexplained Change in Mental Status Sepsis Action Taken by Nursing 07/06/24 12:30 07/06/24 12:33 Temperature Temperature Source Pulse Rate 72 Pulse Rate from SpO2 Sensor Respiratory Rate 19 Respiratory Effort / Characteristics Respiratory Depth Respiratory Pattern Blood Pressure 135/72 Blood Pressure Mean 96 Blood Pressure Position Pulse Oximetry Oxygen Delivery Method Sepsis Recent Fever Within 48 Hours Sepsis New/Unexplained Change in Mental Status Sepsis Action Taken by Nursing Laboratory Data 07/06/24 09:50 12/17/24 09:50 Lab Results 07/06/24 07/06/24 07/06/24 Range/Units 09:50 10:03 10:08 WBC 11.90 H (4.8-10.8) K/ul RBC 3.90 L (4.20-5.40) M/uL Hgb 12.3 (12.0-16.0) g/dl Hct 36.5 L (37.0-47.0) % MCV 93.6 (80.0-100.0) fL MCH 31.5 (25.0-34.0) pg MCHC 33.7 (32.0-36.0) g/dL RDW Std Deviation 60.5 H (36.4-46.3) fL RDW Coeff of Kelvin 17.4 H (11.5-14.5) % Plt Count 422 H (130-400) K/uL MPV 9.0 L (9.4-12.4) fL Immature Gran % (Auto) 0.7 % Neut % (Auto) 85.3 % Lymph % (Auto) 5.5 % Fountain % (Auto) 8.0 % Eos % (Auto) 0.1 % Baso % (Auto) 0.4 % Neut # (Auto) 10.16 H (1.40-6.50) K/uL Lymph # (Auto) 0.65 L (1.20-3.40) K/uL Fountain # (Auto) 0.95 H (0.11-0.59) K/uL Eos # (Auto) 0.01 (0.00-0.50) K/uL Baso # (Auto) 0.05 (0.00-0.20) K/uL Immature Gran # (Auto) 0.08 (0.01-0.20) K/uL Polychromasia 1+ Ovalocytes 1+ PT 10.1 (9.0-12.0) Seconds INR 0.9 (0.9-1.1) VBG pH (7.36-7.41) VBG pCO2 (38-50) mmHg VBG pO2 mmHg VBG HCO3 mmol/L VBG O2 Saturation % VBG Base Excess mEq/L Sodium 136 (136-145) mmol/L Potassium 3.8 (3.5-5.1) mmol/L Chloride 100 (98-107) mmol/L Carbon Dioxide 30 (21-32) mmol/L Anion Gap 6 (3-11) BUN 22 (6-23) mg/dl Creatinine 0.84 (0.6-1.2) mg/dl Est Cr Clr Drug Dosing 54.4 ml/min eGFR 76.59 BUN/Creatinine Ratio 26.2 H (10-20) Glucose 132 H (70-99(Fasting)) mg/dl Lactate Cancelled Calcium 8.0 L (8.6-10.3) mg/dl Total Bilirubin 0.8 (0.2-1.0) mg/dl AST 49 H (13-39) U/L ALT 26 (7-52) U/L Alkaline Phosphatase 327 H (34-104) U/L Ammonia Total Creatine Kinase 295 H (26-192) U/L Troponin I High Sens 5.3 (0-14) pg/ml Total Protein 6.1 (6.0-8.3) gm/dl Albumin 3.1 L (3.4-5.0) gm/dl Globulin 3.0 (2.5-4.0) gm/dl Albumin/Globulin Ratio 1.0 (0.9-2) TSH 17.475 H (0.300-4.500) uIu/ml Free T4 0.38 L (0.61-1.60) ng/dl Urine Color Ceci Urine Appearance Clear (Clear) Urine pH 5.5 (4.5-7.5) Ur Specific [place] 1.031 H (1.000-1.030) Urine Protein 1+ H (Negative) Urine Glucose (UA) Negative (Negative) Urine Ketones Negative (Negative) Urine Blood Negative (Negative) Urine Nitrite Positive A (Negative) Urine Bilirubin 2+ H (Negative) Urine Urobilinogen Negative (Negative) Ur Leukocyte Esterase 1+ H (Negative) Urine WBC (Auto) 0-5 (0-5) /hpf Urine RBC (Auto) 3-5 H (0-2) /hpf U Hyaline Cast (Auto) 11-20 H (0-2) /lpf U Epithel Cells (Auto) 3-5 H (0-2) /hpf Urine Bacteria (Auto) None Seen (None Seen) Hyaline Casts Present A (None Presnt) /lpf Granular Casts Present A (None Prsent) /lpf Adenovirus (PCR) Not Detected (NotDetected) B. pertussis DNA (PCR) Not Detected (NotDetected) B.parapertussis DNA PCR Not Detected (NotDetected) C. pneumoniae DNA (PCR) Not Detected (NotDetected) Coronavirus OC43 (PCR) Not Detected (NotDetected) Coronavirus HKU1 (PCR) Not Detected (NotDetected) Coronavirus 229E (PCR) Not Detected (NotDetected) SARS-CoV-2 (PCR) Not Detected (NotDetected) Coronavirus NL63 (PCR) Not Detected (NotDetected) Human Metapneumovir PCR Not Detected (NotDetected) Influenza Type A (PCR) Not Detected (NotDetected) Influenza Type B (PCR) Not Detected (NotDetected) M. pneumoniae (PCR) Not Detected (NotDetected) Parainfluenza 1 (PCR) Not Detected (NotDetected) Parainfluenza 2 (PCR) Not Detected (NotDetected) Parainfluenza 3 (PCR) Not Detected (NotDetected) Parainfluenza 4 (PCR) Not Detected (NotDetected) RSV (PCR) Not Detected (NotDetected) Entero/Rhino (PCR) Not Detected (NotDetected) 07/06/24 07/06/24 Range/Units 10:33 11:57 WBC (4.8-10.8) K/ul RBC (4.20-5.40) M/uL Hgb (12.0-16.0) g/dl Hct (37.0-47.0) % MCV (80.0-100.0) fL MCH (25.0-34.0) pg MCHC (32.0-36.0) g/dL RDW Std Deviation (36.4-46.3) fL RDW Coeff of Kelvin (11.5-14.5) % Plt Count (130-400) K/uL MPV (9.4-12.4) fL Immature Gran % (Auto) % Neut % (Auto) % Lymph % (Auto) % Fountain % (Auto) % Eos % (Auto) % Baso % (Auto) % Neut # (Auto) (1.40-6.50) K/uL Lymph # (Auto) (1.20-3.40) K/uL Fountain # (Auto) (0.11-0.59) K/uL Eos # (Auto) (0.00-0.50) K/uL Baso # (Auto) (0.00-0.20) K/uL Immature Gran # (Auto) (0.01-0.20) K/uL Polychromasia Ovalocytes PT (9.0-12.0) Seconds INR (0.9-1.1) VBG pH 7.43 H (7.36-7.41) VBG pCO2 49 (38-50) mmHg VBG pO2 34 mmHg VBG HCO3 33 mmol/L VBG O2 Saturation < 60.0 % VBG Base Excess 7.0 mEq/L Sodium (136-145) mmol/L Potassium (3.5-5.1) mmol/L Chloride (98-107) mmol/L Carbon Dioxide (21-32) mmol/L Anion Gap (3-11) BUN (6-23) mg/dl Creatinine (0.6-1.2) mg/dl Est Cr Clr Drug Dosing ml/min eGFR BUN/Creatinine Ratio (10-20) Glucose (70-99(Fasting)) mg/dl Lactate 0.8 Calcium (8.6-10.3) mg/dl Total Bilirubin (0.2-1.0) mg/dl AST (13-39) U/L ALT (7-52) U/L Alkaline Phosphatase (34-104) U/L Ammonia TNP Total Creatine Kinase (26-192) U/L Troponin I High Sens (0-14) pg/ml Total Protein (6.0-8.3) gm/dl Albumin (3.4-5.0) gm/dl Globulin (2.5-4.0) gm/dl Albumin/Globulin Ratio (0.9-2) TSH (0.300-4.500) uIu/ml Free T4 (0.61-1.60) ng/dl Urine Color Urine Appearance (Clear) Urine pH (4.5-7.5) Ur Specific [place] (1.000-1.030) Urine Protein (Negative) Urine Glucose (UA) (Negative) Urine Ketones (Negative) Urine Blood (Negative) Urine Nitrite (Negative) Urine Bilirubin (Negative) Urine Urobilinogen (Negative) Ur Leukocyte Esterase (Negative) Urine WBC (Auto) (0-5) /hpf Urine RBC (Auto) (0-2) /hpf U Hyaline Cast (Auto) (0-2) /lpf U Epithel Cells (Auto) (0-2) /hpf Urine Bacteria (Auto) (None Seen) Hyaline Casts (None Presnt) /lpf Granular Casts (None Prsent) /lpf Adenovirus (PCR) (NotDetected) B. pertussis DNA (PCR) (NotDetected) B.parapertussis DNA PCR (NotDetected) C. pneumoniae DNA (PCR) (NotDetected) Coronavirus OC43 (PCR) (NotDetected) Coronavirus HKU1 (PCR) (NotDetected) Coronavirus 229E (PCR) (NotDetected) SARS-CoV-2 (PCR) (NotDetected) Coronavirus NL63 (PCR) (NotDetected) Human Metapneumovir PCR (NotDetected) Influenza Type A (PCR) (NotDetected) Influenza Type B (PCR) (NotDetected) M. pneumoniae (PCR) (NotDetected) Parainfluenza 1 (PCR) (NotDetected) Parainfluenza 2 (PCR) (NotDetected) Parainfluenza 3 (PCR) (NotDetected) Parainfluenza 4 (PCR) (NotDetected) RSV (PCR) (NotDetected) Entero/Rhino (PCR) (NotDetected) Administered Medications Discontinued Medications Sodium Chloride (Nss) 1,000 mls @ 999 mls/hr IV .Q1H1M ONE Stop: 07/06/24 11:50 Last Admin: 07/06/24 11:26 Dose: 999 mls/hr Documented By: MOI Ceftriaxone Sodium (Rocephin) 2,000 mg in 50 mls @ 100 mls/hr IV NOW STA Stop: 07/06/24 11:20 Last Infusion: 07/06/24 12:20 Dose: Infused Documented By: Admin: 07/06/24 12:05 Dose: 100 mls/hr Documented By: MOI Levetiracetam (Levetiracetam 500 Mg/5 Ml Vial) 2,000 mg IV NOW STA Stop: 07/06/24 09:46 Last Admin: 07/06/24 10:16 Dose: 2,000 mg Documented By: TNK Imaging Data Radiologist's Impression: Chest X-Ray 07/06/24 09:44 XR chest 1V portable CLINICAL HISTORY: weakness COMPARISON STUDY: Chest CT February 26, 2024. Chest radiograph April 11, 2024. FINDINGS: Postoperative findings within the spine are incidentally noted. Lung volumes are mildly diminished, unchanged. Lungs are clear. There is no pneumothorax or pleural effusion. Cardiac size is stable. Mediastinal contours are normal. There is no evidence for pulmonary edema. IMPRESSION: No acute cardiopulmonary findings. No change in appearance of the chest. ACT 112: Negative or not required by law. Electronically signed by: Tc Umaña M.D. 07/06/2024 10:[address] 07/06/24 09:44 CT head/brain wo con CLINICAL HISTORY: AMS Technique: Contiguous axial CT images of the head were acquired from the base of the skull to the vertex without intravenous contrast administration. Images were viewed in brain, subdural and bone windows. Automated dose lowering techniques and/or adjustment according to patient size were utilized for this exam. Comparison: Comparison is made to CT head 04/11/2024 Findings: Postsurgical changes of focal encephalomalacia likely postsurgical. Imaged portions of the paranasal sinuses and mastoid air cells are clear. The orbits appear normal. Old postsurgical changes are seen in the calvarium. Impression: No acute intracranial hemorrhage, no evidence of acute territorial infarction or other acute intracranial disease process. ACT 112: Negative or not required by law. Electronically signed by: Seun Gaspar M.D. 07/06/2024 10:44 AM Hip/Pelvis X-Ray 07/06/24 10:06 XR hip DIMAS 2v w pelvis CLINICAL HISTORY: fall TECHNIQUE: 2 views of the bilateral hips and single frontal view of the pelvis were obtained. Comparison: Comparison is made to CT left hip 04/16/2024 and right hip radiograph 04/11/2024 FINDINGS: Fracture of the right superior and inferior pubic ramus and bilateral pubic symphysis. Degenerative changes are seen in the bilateral hips and lumbar spine. No soft tissue abnormality is seen. IMPRESSION: Fracture of the right superior and inferior pubic ramus and bilateral pubic symphysis. At least the right pubic ramus fractures are new from prior exam. ACT 112: Negative or not required by law. Electronically signed by: Seun Gaspar M.D. 07/06/2024 11:37 AM Discharge Plan Visit Data Chief Complaint: Weakness ED Provider: Martin Avila Discharge Problem: Acute UTI Forms Stand Alone Forms: [facility] [employer] Prescriptions Prescriptions: No Action Tafinlar 75 mg capsule 75 mg PO AMHS dexamethasone 4 mg tablet 4 mg PO UD Rx Instructions: Take 4mg by mouth once daily for 5 days 1 hour prior to radiation treatment. Mekinist 0.5 mg tablet 0 mg PO QAM Rx Instructions: Original Directions listed: 1mg by mouth daily. However pharmacy as 1.5mg by mouth daily. Unable to verify w/pt how she is currently taking medication. multivitamin Tablet 1 tab PO QAM Qty: 30 0RF Rx Instructions: Unable to verify OTC med at this date/time. ondansetron HCl 8 mg tablet 8 mg PO BID PRN (Reason: nausea) Qty: 10 0RF Rx Instructions: take 1/2 hr before tafinlar triamcinolone acetonide 0.1 % cream 1 applic TOPICAL BID Qty: 15 0RF lorazepam 0.5 mg Tablet 0.5 mg PO Q6H PRN (Reason: anxiety) Qty: 10 0RF paroxetine HCl 40 mg tablet 40 mg PO QAM Qty: 30 0RF losartan 50 mg tablet 50 mg PO QAM tramadol 50 mg tablet 50 mg PO TID PRN (Reason: Moderate Pain (Scale Score 5-6)) ergocalciferol (vitamin D2) 1,250 mcg (50,000 unit) capsule 50,000 unit PO WK atorvastatin 20 mg tablet 20 mg PO QPM Rx Instructions: Last filled 02/2024 x90 day supply. Original Directions: 20mg by mouth daily carbamazepine 200 mg tablet extended release 12 hr 400 - 600 mg PO UD Rx Instructions: Take 600mg by mouth in the morning and 400mg by mouth in the evening trazodone 100 mg tablet 0 mg PO HS Rx Instructions: Last filled 01/2024 x30 day supply. Original Directions: 150mg by mouth daily levothyroxine 200 mcg tablet 200 mcg PO DAILY Referrals Referrals: Martin Solorio MD [Primary Care Provider] -
[2024-07-06] MEDS: levETIRAcetam 500 MG/5 ML VIAL IV STA (10:16)
--- NOTE | 2024-07-06 10:19 | XRay Report ---
XR chest 1V portable CLINICAL HISTORY: weakness COMPARISON STUDY: Chest CT February 26, 2024. Chest radiograph April 11, 2024. FINDINGS: Postoperative findings within the spine are incidentally noted. Lung volumes are mildly dim inished, unchanged. Lungs are clear. There is no pneumothorax or pleural effusion. Cardiac size is st able. Mediastinal contours are normal. There is no evidence for pulmonary edema. IMPRESSION: No acute cardiopulmonary findings. No change in appearance of the chest. ACT 112: Negative or not required by law. Electronically signed by: Tc Umaña M.D. 07/06/2024 10:18 AM
[2024-07-06 10:45] LABS: Appearance Urine Clear (Clear); Bacteria Urine Automated None Seen (None Seen); Bilirubin Urine 2+ (Negative); Blood Urine Negative (Negative); Glucose Urine UA Negative (Negative); Granular Casts Urine Present /lpf (None Prsent); Hyaline Casts Urine Present /lpf (None Presnt); Ketones Urine Negative (Negative); Leukocyte Esterase Urine 1+ (Negative); Nitrite Urine Positive (Negative); Protein Urine 1+ (Negative); Specific Gravity Urine 1.031 (1.000-1.030); Urobilinogen Urine Negative (Negative); WBC Urine Automated 0-5 /hpf (0-5); pH Urine 5.5 (4.5-7.5)
[2024-07-06 10:46] LABS: Color Urine Amber
--- NOTE | 2024-07-06 10:46 | CT Scan Report ---
CT head/brain wo con CLINICAL HISTORY: AMS Technique: Contiguous axial CT images of the head were acquired from the base of the skull to the vu jordi without intravenous contrast administration. Images were viewed in brain, subdural and bone [facility]. Automated dose lowering techniques and/or adjustment according to patient size were utilized for this exam. Comparison: Comparison is made to CT head 04/11/2024 Findings: Postsurgical changes of focal encephalomalacia likely postsurgical. Imaged portions of the paranasal sinuses and mastoid air cells are clear. The orbits appear normal. Old postsurgical changes are seen in the calvarium. Impression: No acute intracranial hemorrhage, no evidence of acute territorial infarction or other acute intracra nial disease process. ACT 112: Negative or not required by law. Electronically signed by: Seun Gaspar M.D. 07/06/2024 10:44 AM
[2024-07-06 10:47] LABS: Albumin Level 3.1 gm/dl (3.4-5.0); BUN Creatinine Ratio 26.2 (10-20); Bilirubin,Total 0.8 mg/dl (0.2-1.0); Creatinine Clr Calc Pharmacy 54.4 ml/min; Potassium 3.8 mmol/L (3.5-5.1); Total Protein 6.1 gm/dl (6.0-8.3)
[2024-07-06 10:55] LABS: Hematocrit (blood only) 36.5 % (37.0-47.0); Hemoglobin 12.3 g/dl (12.0-16.0); Mean Corpuscular Hemoglobin 31.5 pg (25.0-34.0); Mean Corpuscular Hgb Conc 33.7 g/dL (32.0-36.0); Mean Corpuscular Volume 93.6 fL (80.0-100.0); Platelet Count 422 K/uL (130-400); RDW Coefficient of Variation 17.4 % (11.5-14.5); RDW Standard Deviation 60.5 fL (36.4-46.3); Troponin I High Sensitivity 5.3 pg/ml (0-14)
[2024-07-06 10:56] LABS: Basophils # (auto) 0.05 K/uL (0.00-0.20); Basophils % (auto) 0.4 %; Eosinophils # (auto) 0.01 K/uL (0.00-0.50); Eosinophils % (auto) 0.1 %; INR 0.9 (0.9-1.1); Immature Granulocytes # (auto) 0.08 K/uL (0.01-0.20); Immature Granulocytes % (auto) 0.7 %; Lymphocytes # (auto) 0.65 K/uL (1.20-3.40); Lymphocytes % (auto) 5.5 %; Monocytes # (auto) 0.95 K/uL (0.11-0.59); Neutrophils # (auto) 10.16 K/uL (1.40-6.50); Neutrophils % (auto) 85.3 %; Ovalocytes 1+; Polychromasia 1+; Prothrombin Time 10.1 Seconds (9.0-12.0)
[2024-07-06 11:02] LABS: Thyroid Stimulating Hormone 17.475 uIu/ml (0.300-4.500)
[2024-07-06 11:13] LABS: Adenovirus PCR Not Detected (NotDetected); Bordetella parapertussis PCR Not Detected (NotDetected); Bordetella pertussis PCR Not Detected (NotDetected); Chlamydia pneumoniae PCR Not Detected (NotDetected); Coronavirus 229E PCR Not Detected (NotDetected); Coronavirus CoV-2 (COVID19)PCR Not Detected (NotDetected); Coronavirus HKU1 PCR Not Detected (NotDetected); Coronavirus NL63 PCR Not Detected (NotDetected); Coronavirus OC43PCR Not Detected (NotDetected); Human Metapneumovirus PCR Not Detected (NotDetected); Influenza A PCR Not Detected (NotDetected); Influenza B PCR Not Detected (NotDetected); Mycoplasma pneumoniae PCR Not Detected (NotDetected); Parainfluenza Virus 1 PCR Not Detected (NotDetected); Parainfluenza Virus 2 PCR Not Detected (NotDetected); Parainfluenza Virus 3 PCR Not Detected (NotDetected); Parainfluenza Virus 4 PCR Not Detected (NotDetected); Respiratory Syncytial VirusPCR Not Detected (NotDetected); Rhinovirus/Enterovirus PCR Not Detected (NotDetected)
[2024-07-06] MEDS: SODIUM CHLORIDE 0.9% 1,000 ML IV ONE (11:26)
--- NOTE | 2024-07-06 11:38 | XRay Report ---
XR hip DIMAS 2v w pelvis CLINICAL HISTORY: fall TECHNIQUE: 2 views of the bilateral hips and single frontal view of the pelvis were obtained. Comparison: Comparison is made to CT left hip 04/16/2024 and right hip radiograph 04/11/2024 FINDINGS: Fracture of the right superior and inferior pubic ramus and bilateral pubic symphysis. Degenerative c hanges are seen in the bilateral hips and lumbar spine. No soft tissue abnormality is seen. IMPRESSION: Fracture of the right superior and inferior pubic ramus and bilateral pubic symphysis. At least the r ight pubic ramus fractures are new from prior exam. ACT 112: Negative or not required by law. Electronically signed by: Seun Gaspar M.D. 07/06/2024 11:37 AM
[2024-07-06] MEDS ORDERED: ONDANSETRON INJ 2 MG/ML 2 ML VIAL IV PRN (11:41)
[2024-07-06] MEDS ORDERED: MAGNESIUM HYDROXIDE SUSP 30 ML UDC PO PRN (11:41)
[2024-07-06] MEDS ORDERED: ALUMINUM/MAGNESIUM SUSP 30 ML UDC PO PRN (11:41)
[2024-07-06] MEDS ORDERED: POLYETHYLENE (MIRALAX) 17 GM PACK PO PRN (11:41)
[2024-07-06 11:42] LABS: T4 Free Thyroxine 0.38 ng/dl (0.61-1.60)
--- NOTE | 2024-07-06 11:47 | History & Physical Report ---
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 Garcia is a 63-year-old female who presents with AMS and generalized weakness and in a disheveled state incontinent of urine. The patient has a medical history complex of melanoma of the left leg originally diagnosed in 2021 with brain mets and a craniotomy and resection under the care of Dr. Hand on 08/20/2021. Patient is disheveled. She is awake alert oriented to herself only and was able to state that she is in a hospital but said that the year was 10/23/1921. when asked who takes care of her she said that her dogs do. She was able to state that she lives with her Kwame and feels safe at home. Mild leukocytosis 11.9, TSH elevated at 17.4, bio fire negative. Head CT negative for ICH, midline shift or SDH. Chest x-ray negative for acute cardiopulmonary disease. TSH 17.4. Most recent inpatient hospital stay here was in March with similar symptoms including possible seizure activity for which an EEG indicated nonspecific encephalopathy without seizure-like activity. A pelvic/hip xray was performed with results identifying a fracture of the right superior and inferior pubic ramus and bilateral pubic symphysis. Patient will be admitted for further evaluation and management with additional IV rehydration, will obtain VBG and ammonia levels along with a brain MRI with and without contrast given her metastatic brain involvement, will obtain EEG and continue IV Rocephin and await urine culture. Will increase Thyroid medication given elevated TSH. Will keep n.p.o. until cleared by speech therapy, PT OT and will involve orthopedics given her new identified fracture. AMS: Weakness: secondary to possible worsening of mets, UTI, seizure or others as outlined below AAO x 1 Mild leukocytosis 11.9, lactate 0.8 Bio fire (-) UA nitrate +, LE 1+, tea colored urine Urine culture and blood pending Head CT negative for ICH, midline shift or SDH, CXR negative for acute cardiopulmonary disease TSH 17.4; see outlined below VBG and ammonia levels pending Brain MRI with and without contrast given her metastatic brain involvement as outlined below EEG ordered as outlined below Started empirically on Rocephin; await blood and urine cultures and adjust as necessary Keep NPO until cleared by speech/dysphagia Received 1LNSB; ordered additional 2LNSB as patient has dry mucus membranes EKG showed normal sinus rhythm, T wave abnormality, nonspecific inferolateral leads. Trop negative. 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 Hand Brain MRI with and without contrast given her metastatic brain involvement as outlined below Closed fracture of right pubic ramus: Fracture of the right superior and inferior pubic ramus and bilateral pubic symphysis Ortho consult placed Teds and SCDs for now No reproducible pain on exam NPO after MN pending Ortho eval Possible Seizure: Based on disheveled state, incontinence of urine; considered seizure like activity Keppra 2 G given in ED Brain MRI and EEG ordered Is prescribed Tegretol based on outpatient records; will obtain Tegretol level UTI: UA nitrate +, LE 1+, tea colored urine creatinine normal Started empirically on Rocephin, continue and adjust based on blood and urine cx Hypothyroidism: Chronic TSH 17.4 Prescribed levothyroxine 200 mcg daily Based on labs today; will increase levothyroxine to 225 mc daily Disheveled state: Severe Protein malnourishment: Patient is disheveled. Appears there could be non-compliance and care at home. BMI 18 Called patient Kwame at [phone] as discussed above Could benefit from [facility] on Aging involvement for resources and care needs. Disposition: PCP: Dr. Solorio Code Status: Full Code VTE Prophylaxis: Teds and SCDs for now I spent a total of 78 minutes coordinating, documenting, and providing care for this patient excluding time spent in the performance of separately billed services. All of the aforementioned completed while collaborating with the assigned attending physician for a full treatment plan. Please see their addendum for further details. History of Present Illness Chief Complaint: [facility] Primary Care Provider: Martin Solorio MD Ms. Garcia is a 63-year-old female who presents to the [facility] From home with altered mental status and generalized weakness and in a disheveled state incontinent of urine. The patient has a medical history complex of melanoma of the left leg originally diagnosed in 2021 with brain mets and a craniotomy and resection under the care of Dr. Hand on 08/20/2021. Patient is disheveled. She is awake alert oriented to herself only and was able to state that she is in a hospital but said that the year was 10/23/1921. when asked who takes care of her she said that her daughter is due. She was able to state that she lives with her Kwame and feels safe at home. In the ED mild leukocytosis 11.9, TSH elevated at 17.4, bio fire negative. Head CT negative for ICH, midline shift or SDH. Chest x-ray negative for acute cardiopulmonary disease. TSH 17.4. Most recent inpatient hospital stay here was in March with similar symptoms including possible seizure activity for which an EEG indicated nonspecific encephalopathy without seizure-like activity. An ECHO was performed EF 60 to 65% with LV wall motion normal, trace MR and mild TR. A pelvic/hip xray was performed with results identifying a fracture of the right superior and inferior pubic ramus and bilateral pubic symphysis. I talked to the patients Kwame on the phone at [phone] stated that two days she hasn't been acting herself and he tried to get her up last night to get her to stand and she could not stand. At baseline, he says that she does not have any short term memory. reportedly has been giving her her medications. He reported that she tripped and fell on her dogs leash 3-4 days ago, but denies that she hit her head. He said he has a hard time mobilizing at baseline. He says that she requires all of her needs are met by him including bathing and eating. Patient will be admitted for further evaluation and management with additional IV rehydration, will obtain VBG and ammonia levels along with a brain MRI with and without contrast given her metastatic brain involvement, will obtain EEG and continue IV Rocephin and await urine culture. Will increase Thyroid medication given elevated TSH. Will keep n.p.o. until cleared by ST, PT/OT and will involve orthopedics given her new identified fracture. Allergies Allergy/AdvReac Type Severity Reaction Status Date / Time erythromycin base Allergy Unknown BROUGHT ON Verified 07/06/24 12:42 SEIZURES Macrolide Antibiotics Allergy Unknown Unknown Verified 07/06/24 12:42 Ketolide Antibiotics Allergy Unknown Unknown. Uncoded 07/06/24 12:42 On file w/ [facility]. Home Medications Medication Instructions Recorded Confirmed Type dabrafenib 75 mg capsule (Tafinlar) 75 mg PO AMHS 07/30/22 07/06/24 History dexamethasone 4 mg tablet 4 mg PO UD 04/11/24 07/06/24 History trametinib 0.5 mg tablet (Mekinist) 0 mg PO QAM 04/11/24 07/06/24 History lorazepam 0.5 mg tablet 0.5 mg PO Q6H PRN anxiety #10 tabs 04/28/24 07/06/24 Rx multivitamin 1 tab PO QAM #30 tabs 04/28/24 07/06/24 Rx ondansetron HCl 8 mg tablet 8 mg PO BID PRN nausea #10 tabs 04/28/24 07/06/24 Rx paroxetine HCl 40 mg tablet 40 mg PO QAM #30 tabs 04/28/24 07/06/24 Rx triamcinolone acetonide 0.1 % 1 applic topical BID itching #15 04/28/24 07/06/24 Rx topical cream grams atorvastatin 20 mg tablet 20 mg PO QPM 07/06/24 07/06/24 History carbamazepine 200 mg 400 - 600 mg PO UD 07/06/24 07/06/24 History tablet,extended release,12 hr ergocalciferol (vitamin D2) 1,250 50,000 unit PO WK 07/06/24 07/06/24 History mcg (50,000 unit) capsule levothyroxine 200 mcg tablet 200 mcg PO DAILY 07/06/24 07/06/24 History losartan 50 mg tablet 50 mg PO QAM 07/06/24 07/06/24 History tramadol 50 mg tablet 50 mg PO TID PRN Moderate Pain 07/06/24 07/06/24 History (Scale Score 5-6) trazodone 100 mg tablet 0 mg PO HS 07/06/24 07/06/24 History Past Med/Surg History Problem List (Updated 07/06/24 @ 13:43 by Background Daemon) Acute UTI (Acute) Closed fracture of pubic ramus AMS (altered mental status) Fracture of left hip Pelvic ring fracture Weakness (Acute) Hypothyroidism Combined receptive and expressive aphasia Vasogenic edema (Acute) Memory changes Melanoma metastatic to brain (Chronic) Medical History Fall Acute UTI (urinary tract infection) Acute hypotension Seizure disorder History of melanoma October 2017 --diag with superficial spreading melanoma of the left leg, [id number], Stage IIIc. 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 S/p re-excision and SLNB 12/26/2017 (-margins; 3 of 3 nodes involved) S/p nivolumab 02/04 - 04/08 S/p right parietal craniotomy for near total resection 08/20/2021 S/p Radiation therapy to brain mets, including post op bed; Aug -September 2021 S/p dabrafinib and trametinib 10/09 --dose reduced in mid 2021; ongoing Rx Jul 2022--SRS to left frontal lobe Aug 2023--s/p ALYSHA and bx of Left Frontal mass. Path-- brain parenchyma with reactive gliosis.Negative for malignancy. MRI feb 20, 2024--Parenchymal abnormality at the treatment site measuring 1.9 cm, not fully characterized. Surrounding vasogenic edema and mild mass effect, increased since pretreatment imaging. 03/03/2024--s/p L frontal craniotomy for resection ( Dr Hand) ; path showed Residual/recurrent metastatic melanoma No pertinent past medical history Surgical History S/P craniotomy Dr. Hand [facility] Neurosurgery 03/03/24 Left frontal craniotomy for tumor resection with vycor tube and dynamic retraction, use of brainlab neuronavigation, use of neurophysiological monitoring (SSEP/MEP/motor language, subcortical stimulation) Status post right foot surgery History of knee replacement procedure of left knee History of partial hysterectomy H/O craniotomy History of back surgery History of brain surgery x2 Hx of cholecystectomy Family History Grandfather (Maternal) Cancer Breast cancer Sister Cancer Breast cancer Father Cancer Colon cancer Social History Smoking Status: Current every day smoker Tobacco Type: Cigarettes Cigarettes Per Day: 13; Do You Dip or Chew Tobacco: No; Hx Alcohol Use: Yes Hx Substance Use: No Preferred Language: Tajik Communication Ability: Unable Visual Impairment: No Limitations Hearing Ability: Normal Floor Cashier Required: No Beliefs That Will Affect Care: None marital status: Current Living Situation: Spouse current occupational status: employed 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 Denies pain. Physical Exam Physical Exam: Neuro: AAOx1, PERRLA size 3mm BL, no aphagia, memory changes, CNII-XII grossly intact HEENT: head normocephalic, moist mucus membranes CV: S1/S2, (-) M/G/R, (-) edema, cap refill < 3 seconds Resp: Lungs CTA in all elliott. On RA GI: Abdomen S/NT/ND, Ax4 bowel sounds, (-) CVA tenderness : Indwelling estrada; tea colored urine Musculoskeletal: 5/5 B/L UE strength, 4/5 B/L LE strength. Did not visualize patient ambulating Skin: (-) rashes , (-) erythema. Psych: euthymic mood Results & Data Results & Data Vital Signs (Past 12 Hours) Vital Signs Temp Pulse Resp BP Pulse Ox O2 Del Method 07/06/24 11:27 94 Room Air 07/06/24 11:22 132/86 07/06/24 11:21 70 15 07/06/24 10:42 71 20 96 07/06/24 10:09 73 23 07/06/24 10:09 85 07/06/24 09:40 37.0 C 76 18 142/84 H 94 Room Air 07/06/24 09:19 94 Room Air Laboratory Results Short CBC 07/06/24 Range/Units 09:50 WBC 11.90 H (4.8-10.8) K/ul Hgb 12.3 (12.0-16.0) g/dl Hct 36.5 L (37.0-47.0) % Plt Count 422 H (130-400) K/uL BMP 07/06/24 09:50 Sodium 136 Potassium 3.8 Chloride 100 Carbon Dioxide 30 BUN 22 Creatinine 0.84 Glucose 132 H Calcium 8.0 L Cardiac Enzymes 07/06/24 Range/Units 09:50 Total Creatine Kinase 295 H (26-192) U/L Liver Function 07/06/24 Range/Units 09:50 Total Bilirubin 0.8 (0.2-1.0) mg/dl AST 49 H (13-39) U/L ALT 26 (7-52) U/L Alkaline Phosphatase 327 H (34-104) U/L Albumin 3.1 L (3.4-5.0) gm/dl Urine 07/06/24 Range/Units 10:03 Urine Color Ceci Urine Appearance Clear (Clear) Urine pH 5.5 (4.5-7.5) Ur Specific [place] 1.031 H (1.000-1.030) Urine Protein 1+ H (Negative) Urine Glucose (UA) Negative (Negative) Diagnostic Findings Chest X-Ray 07/06/24 09:44 XR chest 1V portable CLINICAL HISTORY: weakness COMPARISON STUDY: Chest CT February 26, 2024. Chest radiograph April 11, 2024. FINDINGS: Postoperative findings within the spine are incidentally noted. Lung volumes are mildly diminished, unchanged. Lungs are clear. There is no pneumothorax or pleural effusion. Cardiac size is stable. Mediastinal contours are normal. There is no evidence for pulmonary edema. IMPRESSION: No acute cardiopulmonary findings. No change in appearance of the chest. ACT 112: Negative or not required by law. Electronically signed by: Tc Umaña M.D. 07/06/2024 10:[address] 07/06/24 09:44 CT head/brain wo con CLINICAL HISTORY: AMS Technique: Contiguous axial CT images of the head were acquired from the base of the skull to the vertex without intravenous contrast administration. Images were viewed in brain, subdural and bone windows. Automated dose lowering techniques and/or adjustment according to patient size were utilized for this exam. Comparison: Comparison is made to CT head 04/11/2024 Findings: Postsurgical changes of focal encephalomalacia likely postsurgical. Imaged portions of the paranasal sinuses and mastoid air cells are clear. The orbits appear normal. Old postsurgical changes are seen in the calvarium. Impression: No acute intracranial hemorrhage, no evidence of acute territorial infarction or other acute intracranial disease process. ACT 112: Negative or not required by law. Electronically signed by: Seun Gaspar M.D. 07/06/2024 10:44 AM Hip/Pelvis X-Ray 07/06/24 10:06 XR hip DIMAS 2v w pelvis CLINICAL HISTORY: fall TECHNIQUE: 2 views of the bilateral hips and single frontal view of the pelvis were obtained. Comparison: Comparison is made to CT left hip 04/16/2024 and right hip radiograph 04/11/2024 FINDINGS: Fracture of the right superior and inferior pubic ramus and bilateral pubic symphysis. Degenerative changes are seen in the bilateral hips and lumbar spine. No soft tissue abnormality is seen. IMPRESSION: Fracture of the right superior and inferior pubic ramus and bilateral pubic symphysis. At least the right pubic ramus fractures are new from prior exam. ACT 112: Negative or not required by law. Electronically signed by: Seun Gaspar M.D. 07/06/2024 11:37 AM Code Status & VTE Plan Code Status Full Code in the event of cardiac or respiratory arrest VTE Prophylaxis Plan VTE Prophylaxis will be ordered: Yes Supervising Physician Co-Signing Physician Notes Patient is a 64-year-old female with history of CVA, seizure disorder, malignant melanoma with brain mets, depression, hypothyroidism, chronic hyponatremia, emphysema, cognitive impairment, coronary artery disease and other medical problems presents with altered mental status. Patient is currently alert and awake, oriented only to person and place but otherwise unable to provide much history. As per the ER staff, patient has been gradually worsening generalized weakness since 1 week duration and she has been confused since yesterday and was found to be incontinent in stool and urine. She denies any fall, trauma, seizure episode. She is unsure of the events at home. She currently denies any chest pain, dyspnea, nausea, vomiting, abdominal pain, dysuria, hematuria. On further discussion with patient's over the phone, he reported that she tripped and fell on her dogs leash 3-4 days ago. Please review HPI for complete details of presentation. I personally reviewed blood work and imaging studies. Blood work suggestive of leukocytosis 11.9 K, CK elevated at 295, hemoconcentrated compared to prior labs, platelet count 422K, normal lactate levels. Ammonia levels pending. VBG no hypercarbia. Abnormal thyroid function with elevated TSH, low free T4. Chest x-ray showed no acute process. CT head showed no acute process. Hip x-ray suggestive of fracture of the right superior and inferior pubic ramus and bilateral pubic symphysis, it least the right pubic ramus fractures are new from prior exam. EKG showed normal sinus rhythm, T wave abnormality, nonspecific inferolateral leads. Troponin negative. Physical Exam: Vitals signs as noted above General Appearance: Thin, frail, ill-appearing, no apparent distress Head: normocephalic, Atraumatic Eyes: normal inspection, EOMI Neck: supple, Trachea midline Respiratory/Chest: Normal breath sounds, CTA, No accessory muscle use Cardiovascular: S1, S2, No murmur Abdomen/GI:Soft, Non tender, Bowel sounds present, + Estrada with concentrated urine Extremities/Musculoskeletal:normal inspection, no edema Neurologic/Psych:AAOX2, grossly moves all extremities, unable to perform complete neurological exam Skin: normal color, warm Altered mental status likely acute metabolic encephalopathy UTI Elevated CK levels likely due to immobilization Rule out seizures, worsening brain mets CT head showed no acute process. Blood, urine culture pending Will obtain MRI brain, EEG VBG showed no hypercarbia Seizure precautions Empirically started on IV Rocephin Continue IV fluids Check ammonia level Neurochecks Ativan as needed for seizures Reorient frequently to minimize delirium Pelvic fracture --Hip X ray:Fracture of the right superior and inferior pubic ramus and bilateral pubic symphysis. At least the right pubic ramus fractures are new from prior exam. Secondary to Fall Patient had left pelvic fracture secondary to fall in May 13 PT OT, fall precautions Orthopedic consulted Abnormal thyroid function test Elevated TSH, low free T4 ? Compliance to medications Recently increase levothyroxine dose to 200 mcg in May 13 on last admission Increase levothyroxine to 225 mcg daily Will need repeat thyroid function test in 4 weeks Severe protein calorie malnutrition BMI 18 Dietitian consulted I personally interviewed and examined at bedside. Patient's care is coordinated with Martita RING. I have reviewed the advanced practitioner's documentation, and I agree with plan of care. Please refer to the documentation above for details of patient's presentation and for discussion of other issues. I spent a total [id number] coordinating, documenting, and providing care for this patient excluding time spent in the performance of separately billed services.
[2024-07-06 12:04] LABS: HCO3 VBG 33 mmol/L; Oxygen Saturation VBG < 60.0 %; PCO2 VBG 49 mmHg (38-50); PO2 VBG 34 mmHg; pH VBG 7.43 (7.36-7.41)
[2024-07-06] MEDS: cefTRIAXone SODIUM 2,000 MG/50 ML BAG IV STA (12:05)
[2024-07-06] MEDS: GADOBUTROL 65ML VIAL IV ONE (13:23)
[2024-07-06] MEDS ORDERED: LORazepam 2 MG/1 ML VIAL IV PRN (14:01)
--- NOTE | 2024-07-06 14:01 | Magnetic Resonance Report ---
MRI OF THE BRAIN WITHOUT AND WITH IV CONTRAST CLINICAL HISTORY: possible seizure activity/brain mets COMPARISON STUDY: MRI of the brain April 12, 2024. Head CT July 06, 2024. TECHNIQUE: Utilizing a 1.5 Marva magnet and dedicated coil, multiplanar, multiecho imaging of the br ain was performed pre and postcontrast administration. IV administration of 5 mL of Gadavist contras t was uneventful. Thin cut T1 post contrast imaging was performed. FINDINGS: This exam is mildly compromised by motion artifact. There are no foci of restricted diffusi on to suggest acute infarct. Ventricular system is unremarkable. The basal cisterns are patent. There are no extra-axial collections. Right parietal craniotomy is noted. Encephalomalacia and T2 hyperint ensity within the adjacent portion of the brain is unchanged from earlier exams dating back to March 08, 2024. Minimal enhancement is unchanged. This favors postsurgical change. A left frontal cranioto my is noted. A 4.1 x 1.6 x 1.6 cm peripherally enhancing T2 hyperintense focus within the left fronta l lobe has slightly decreased in extent since MRI of April 12, 2024. The rim enhancement is sligh tly irregular and mildly thickened. Adjacent T2 hyperintensity has slightly increased in extent. Othe rwise, the appearance of the brain is unchanged. IMPRESSION: 1. No evidence for acute infarction. 2. Status post left frontal craniotomy. 4.1 x 1.6 x 1.6 cm peripherally enhancing T2 hyperintense foc us within the left frontal lobe, slightly decreased in extent since MRI of April 12, 2024. Howeve r, adjacent T2 hyperintensity has mildly increased. The findings remain nonspecific and could represe nt postsurgical/posttreatment change. However, residual/recurrent tumor could appear similar and cont inued imaging follow-up is recommended. 3. Stable postoperative findings following right parietal craniotomy with stable postoperative findin gs within the right frontoparietal region. ACT 112: Negative or not required by law. Electronically signed by: Tc Umaña M.D. 07/06/2024 2:00 PM
[2024-07-06] MEDS: SODIUM CHLORIDE 0.9% 1,000 ML IV SCH (14:29)
--- OUTSIDE RECORDS SUMMARY | 2024-07-06 15:52 | External Medical Summary | Summary of Care ---
Author Name Unknown Organization [facility] Address [address] [address] Phone [phone] Care Team Providers Care Press Tool Maker Name Role Phone Baldev Solorio MD Primary Care Provider [phone] Reason for Visit * Reason Onset Date Comments Medication Refill 07/03/2024 Status Check 07/03/2024 Encounter Details Date Type Department Care Team (Late st Contact Info) Description 07/03/2024 Telephone [facility] [address] [place] [address] Baldev Solorio MD [address] [facility] [place] [address] Medication Refill; Status Check Allergies Active Allergy Reactions Criticality Noted Date Comments Erythromycin 08/15/1997 seizures documented as of this encounter (statuses as of 07/05/2024) Medications MULTIVITAMINS PO TABS Take 1 Tablet by [...] evening. 90 Tablet 3 07/31/19 24 Active Triamcinolone Acetonide 0.1 % External Cream (Aristocort) Apply topically to affected area 2 times a day. To affected area. 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 02/29/20 24 Active Famotidine 20 MG Oral Tablet (Pepcid) 02/29/20 24 Active PARoxetine HCl 40 MG Oral Tablet (pAXil)Indication s:Adjustment disorder with depressed mood TAKE 1 TABLET BY MOUTH IN THE MORNING 90 Tablet 3 04/05/20 24 Active Ondansetron HCl 8 MG Oral Tablet (Zofran)Indicatio ns:Malignant melanoma of left lower extremity (HCC),Malignant 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) TAKE 1 TABLET BY MOUTH TWICE DAILY 30 MINUTES PRIOR TO ADMINISTRATION OF TAFINLAR. 60 Tablet 5 04/19/20 24 Active Trametinib Dimethyl Sulfoxide 0.5 MG Oral Tablet (Mekinist)Indicat ions:Malignant melanoma of left lower extremity (HCC) Take 3 tablets (1.5mg) by mouth in the morning. 90 Tablet 5 4 3:06 PM EST 05/04/20 24 Active Dabrafenib Mesylate 75 MG Oral Capsule (Tafinlar) Take 1 capsule by mouth in the morning and 1 capsule before bedtime. 120 Capsule 2 4 3:06 PM EST 05/04/20 24 Active Vitamin D (Ergocalciferol) 03905 UNIT Oral Capsule Take 50,000 Units by mouth once a week. For 8 weeks 8 Capsule 05/19/20 24 Active Acetaminophen 325 MG Oral Tablet (Tylenol) Take 2 Tablets by mouth. 04/27/20 24 Active oxyCODONE HCl 5 MG Oral Tablet (Oxy IR) Take 1 Tablet by mouth. 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 60 Tablet 06/07/20 24 Active Levothyroxine Sodium 175 MCG Oral Tablet (Levoxyl)Indicati ons:Acquired hypothyroidism Take 1 Tablet by mouth daily first thing in the morning. (at least 30 min prior to breakfast or other meds) 90 Tablet 1 07/05/20 24 Active Levothyroxine Sodium 175 MCG Oral Tablet (Levoxyl) Take 1 Tablet by mouth daily first thing in the morning. (at least 30 min prior to breakfast or other meds) 024 Disconti nued(Ref ill) documented as of this encounter (statuses as of 07/05/2024) Active Problems Problem Noted Date Diagnosed Date History of stroke 06/04/2024 Overview (06/04/2024): 08/22/23 MRI "There is a chronic lacunar infarction within the left thalamus." Cerebral atrophy 09/30/2023 Spinal stenosis of cervical region 09/30/2023 Coronary artery disease invo lving [place] coronary artery of [place] heart without angina pectoris 09/30/2023 Pulmonary nodules 09/30/2023 Centrilobular emphysema 09/30/2023 Left atrial enlargement 09/30/2023 Mild mitral regurgitation 09/30/2023 Mild tricuspid regurgitation 09/30/2023 Mild pulmonary valve regurgitation 09/30/2023 Brain lesion 09/08/2023 Malignant neoplasm metastatic to brain Hx of melanoma of skin 08/26/2019 Overview (08/26/2019): Melanoma involving the left leg, S/P resection [...] as of this encounter (statuses as of 07/05/2024) Resolved Problems Problem Noted Date Diagnosed Date Resolved Date 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 Overview (06/04/2024): duplicate Left sided lacunar infarction 09/30/2023 06/04/2024 Overview (06/04/2024): 08/22/23 MRI "There is a chronic lacunar infarction within the left thalamus." Vasogenic brain edema 09/22/20212021 Intracranial hemorrhage 08/18/202109/18 Psoriasis 08/26/2019 09/30/2023 Overview (08/26/2019): Plaque and pustulosis Hypothyroidism due to medication 03/26/2018 07/31/2023 Acute bronchitis, complicated 04/03/2011 04/13/2011 Acute sinusitis 08/02/2010 11/27/2010 Dyslipidemia, goal to be determined 07/03/2009 04/13/2011 Overview (07/03/2009): Per Lipid Taxonomy. Brachial neuritis 09/07/2007 04/13/2011 Insomnia 05/14/2007 04/13/2011 Overview (04/21/2017): ICD-10 update of inactive term ACUTE SINUSITIS NOS 09/06/2006 09/08/19 09 Overview (09/08/2008): Resolved per Benign Acute Dxs Protocol #3 ACUTE URI NOS 09/06/2006 09/08/2008 Overview (09/08/2008): Resolved per Benign Acute Dxs Protocol #3 Cough 09/06/2006 04/13/2011 PURE HYPERCHOLESTEROLEM 04/09/200506/20 Overview (07/03/2009): Per Lipid Taxonomy. 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 Answer Date of Assessment Author No 03/01/2024 1:15 PM EDT Stacy, Do ольга Jones RN * Are you blind or do you have serious difficulty seeing, even when wearing glasses? Answer Date of Assessment Author No 03/01/2024 1:15 PM EDT Stacy, Do ольга Jones RN * Do you have serious difficulty walking or climbing stairs? (5 years old or older) Answer Date of Assessment Author Yes 03/01/2024 1:15 PM EDT Stacy, Do ольга Jones RN * Do you have difficulty dressing or bathing? (5 years old or older) Answer Date of Assessment Author Yes 03/01/2024 1:15 PM EDT Do ольга Kumar RN * Because of a physical, mental, or emotional condition, do you have difficulty doing errands alone such as visiting a doctors office or shopping? (15 years old or older) Answer Date of Assessment Author Yes 03/01/2024 1:15 PM EDDo ольга Marroquin RN documented as of this encounter Mental Status * Because of a physical, mental, or emotional condition, do you have serious difficulty concentrating, remembering, or making decisions? (5 years old or older) Answer Entry Date Author Yes 03/01/2024 1:15 PM EDDo ольга Marroquin RN documented in this encounter Miscellaneous Notes * Addendum Note - Baldev Solorio MD - 07/05/2024 5:00 PM ESTAddended by: BALDEV SOLORIO on: 07/05/2024 05:00 PM Modules accepted: Orders * Telephone Encounter - Elizabeth Dickerson OSA - 07/05/2024 4:31 PM EST Patient calling in to check on the status of previous message. Patient Called within 48 hour timeframe. Reminded patient of 48 hour turn-around time. * Telephone Encounter - Brianna Vaughn PHARM Tech - 07/03/2024 3:55 PM EST Pt calling requesting the following medication below that is listed as "Historical". The following information was provided: Medication Name: Levothyroxine Sodium Strength: 175 MCG Directions: Take 1 tablet by mouth in the morning Preferred Quantity: 90 Previous Prescriber: old pcp [facility]acy: [facility] [address] [address] [address] Please review and approve if appropriate. Thank you, Brianna Vaughn CPhT Technical Specialist II [facility] ([facility]) 07/03/2024,3:55 PM documented in this encounter Plan of Treatment Upcoming Encounters Date Type Department Care Team (Late st Contact Info) Description 07/13/2024 9:15 AM EST Office Visit Hematology/Oncology [facility] [place] [address] [facility] [phone] Benja Watkins MD [address] [facility] [place] [address] 08/02/2024 8:20 AM EST [facility] [address] [facility] [place] [phone] Baldev Solorio MD [address] [facility] [place] [id number] 08/10/2024 9:45 AM EST Pharmacy Pharmacy Hematology Oncology [facility] [address] [place] [address] [facility], [facility] Hem/Onc [address] [place] [address] 10/05/2024 12:30 PM EDT Telemedicine Care at Home [address] [place] [address] Kori Dumont PA-C [address] [place] [address] 02/14/2025 8:00 AM EDT Imaging Radiology [address] [place] [address] Scheduled Procedures Name Priority Associated Diagnoses Date/Ti me COLONOSCOPY FLEXIBLE PROXIMA L DIAGNOSTIC Recall Family history of colon cancer Health Maintenance Due Date Last Done Comments Alpha-1 Antitrypsin 1976 Cologuard 2003 Fecal Occult Blood Test 2003 Sigmoidoscopy 2003 Influenza Vaccine (FLU shot) (#1) 2024 03/08/2023, 04/04/2021, 04/04/2021, Additional history exists Pneumococcal Vaccine: 65+ Years (3 of 3 - PPSV23 or PCV20) 07/15/2024 03/08/2023, 04/22/2022, 04/22/2022, Additional history exists Postponed from 05/03/2023 (Patient Declined After Education) DXA Scan 07/20/2024 Postponed from 2023 (Patient Declined After Education) Hepatitis C Screening 07/20/2024 Postpo luiz from 1976 (Patient Declined After Education) Depression Screening 09/10/2024 09/10/2023 Adult Wellness Visit 09/29/2024 09/30/2023 DISCUSS TOBACCO CESSATION (REFER TO SMARTSET #9725) 01/28/2025 01/29/2024 TSH 01/28/2025 01/29/2024, 07/21, 07/25/2023, [...] history exists Zoster Vaccines Completed 07/17/2022, 04/22/2022 COVID-19 Vaccine Discontinued 06/26/2023, , 12/13/2021, Additional history exists HPV (Gardasil) Vaccine Aged Out No lo nger eligible based on patient's age to complete this topic Hepatitis B Vaccine Aged Out No longe r eligible based on patient's age to complete this topic MENINGOCOCCAL (MENACTRA/MENVEO) Aged Out No longer eligible based on patient's age to complete this topic documented as of this encounter Medical Devices Implanted Type Area Blood Bank Business Manager Device Identifier Shelf Expiration Date Model / Serial / Lot Cover Nilda Hole 24mm 421.528 - [id number] Implanted:Qty: 1 on 08/20/2021 by Joni Hand III, MD at OR [facility] [place] Right: Head SYNTHES MAXILLOFACIAL 421.528 / / Plate Y Ti Lo Db 6h 21 421.517 - [id number] Implanted:Qty: 1 on 08/20/2021 by Joni Hand III, MD at OR [facility] [place] Right: Head SYNTHES MAXILLOFACIAL 421.517 / / Screw Ti Lo Pro Sd 4mm 400.834 - [id number] Implanted:Qty: 10 on 08/20/2021 by Joni Hand III, MD at OR [facility] [place] Right: Head SYNTHES MAXILLOFACIAL 400.834 / / Cement Hydroset Injectable 5cc - [id number] Implanted:Qty: 1 on 03/03/2024 by Joni Hand III, MD at OR [facility] [place] Left: Head SUZANNA [id number] 09/19/2025 [id number] / / [id number] Cover Bur Hol Ti Lo 17 421.527 - [id number] Implanted:Qty: 1 on 03/03/2024 by Joni Hand III, MD at OR [facility] [place] Left: Head SYNTHES MAXILLOFACIAL 421.527 / / Plate Ti Lo Pro Str 2h 421.502 - [id number] Implanted:Qty: 2 on 03/03/2024 by Joni Hand III, MD at OR [facility] [place] Left: Head SYNTHES MAXILLOFACIAL 421.502 / / Screw 4mm Ti Low Pro Sdrill - [id number] Implanted:Qty: 7 on 03/03/2024 by Joni Hand III, MD at OR [facility] [place] Left: Head SYNTHES MAXILLOFACIAL 400.834E / / documented as of this encounter Visit Diagnoses Diagnosis Acquired hypothyroidism- Primary Unspecified hypothyroidism Screening mammogram for breast cancer documented in [...] and were consensually agreed upon. Care Teams Press Tool Maker Relationship Specialty Start Date End Date Baldev Solorio MD [address] [place] [address] PCP - General Family Medicine 02/20/21 documented as of this encounter
--- OUTSIDE RECORDS SUMMARY | 2024-07-06 15:53 | External Medical Summary | Summary of Care ---
Author Name Unknown Organization [facility] Address [address] [place] [address] Phone [phone] Care Team Providers Care Database Technician Name Role Phone Martin Solorio MD Primary Care Provider [phone] Reason for Visit * Reason Comments eRx-Medication Refill Encounter Details Date Type Department Care Team (Late st Contact Info) Description 06/21/[address] [facility] [address] [place] [phone] Martin Solorio MD [address] [place] [address] [id number] Allergies Active Allergy Reactions Criticality Noted Date Comments Erythromycin 08/15/1997 seizures documented as of this encounter (statuses as of 06/22/2024) Medications MULTIVITAMINS PO TABS Take 1 Tablet [...] in the morning. 90 Tablet 5 4 5:10 PM EST 05/04/20 24 Active Dabrafenib Mesylate 75 MG Oral Capsule (Tafinlar) Take 1 Capsule by mouth in the morning and 1 Capsule before bedtime. 60 Capsule 5 05/04/20 24 Active Vitamin D (Ergocalciferol) 27298 UNIT Oral Capsule Take 50,000 Units by mouth once a week. For 8 weeks 8 Capsule 05/19/20 24 Active Acetaminophen 325 MG Oral Tablet (Tylenol) Take 2 Tablets by mouth. 04/27/20 Active oxyCODONE HCl 5 MG Oral Tablet (Oxy IR) Take 1 Tablet by mouth. 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 60 Tablet 06/07/20 Active documented as of this encounter (statuses as of 06/22/2024) Active Problems Problem Noted Date Diagnosed Date History of stroke 06/04/2024 Overview (06/04/2024): 08/22/23 MRI "There is a chronic lacunar infarction within the left thalamus." Cerebral atrophy 09/30/2023 Spinal stenosis of cervical region 09/30/2023 Coronary artery disease invo lving [place] coronary artery of [place] heart without angina pectoris 09/30/2023 Pulmonary nodules 09/30/2023 Centrilobular emphysema 09/30/2023 Left atrial enlargement 09/30/2023 Mild mitral regurgitation 09/30/2023 Mild tricuspid regurgitation 09/30/2023 Mild pulmonary valve regurgitation 09/30/2023 Brain lesion 09/08/2023 Malignant neoplasm metastatic to brain 2 Hx of melanoma of skin 08/26/2019 Overview [...] as of this encounter (statuses as of 06/22/2024) Resolved Problems Problem Noted Date Diagnosed Date Resolved Date 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 Overview (06/04/2024): duplicate Left sided lacunar infarction 09/30/2023 06/04/2024 Overview (06/04/2024): 08/22/23 MRI "There is a chronic lacunar infarction within the left thalamus." Vasogenic brain edema 09/22/20212021 Intracranial hemorrhage 08/18/2021 0308/2023 Psoriasis 08/26/2019 09/30/2023 Overview (08/26/2019): Plaque and [...] as of this encounter (statuses as of 06/22/2024) Immunizations Name Administration Dates Next Due COVID-19, [...] 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 - 06/22/2024 12:39 PM EST Refused Prescriptions: Disp Refills Levothyroxine Sodium 200 MCG Oral Tablet 90 Tab*0 Sig: TAKE 1 TABLET BY MOUTH IN THE MORNING AT LEAST 30 MIN PRIOR TO BREAKFAST OR OTHER MEDSRefused By: DRE SAAVEDRAason for Refusal: Duplicate Request documented in this encounter Plan of Treatment Upcoming Encounters Date Type Department Care Team (Late st Contact Info) Description 07/05/2024 9:45 AM EST Office Visit Neurosurgery, [place] [address] [place] [address] Clinic, Brain Tumor Multidisciplinary [address] [place] [address] 07/13/2024 9:15 AM EST Office Visit Hematology/Oncology [facility] [place] [address] [facility] [phone] Benja Watkins MD [address] [facility] [place] [address] 08/02/2024 8:20 AM EST Office Visit [facility] [address] [place] [address] Martin Solorio MD [address] [place] [address] 08/10/2024 9:45 AM EST Pharmacy Pharmacy Hematology Oncology [facility] [address] [place] [address] [facility] Hem/Onc [address] [place] [address] 10/05/2024 12:30 PM EDT Telemedicine Care at Home [address] [place] [address] Kroi Dumont PA-C [address] [place] [address] 02/14/2025 8:00 AM EDT Imaging Radiology [address], [place] [address] [place] [address] Scheduled Procedures Name Priority Associated Diagnoses Date/Ti [...] 09/30/2023 DISCUSS TOBACCO CESSATION (REFER TO SMARTSET #329) 01/28/2025 01/29/2024 TSH 01/28/2025 01/29/2024, 07/21, 07/25/2023, [...] this encounter Medical Devices Implanted Type Area Fixture Builder Device Identifier Shelf Expiration Date Model / Serial / Lot Cover Nilda Hole 24mm 421.528 - [id number] Implanted:Qty: 1 on 08/20/2021 by Joni Hand III, MD at [place] [facility] [place] Right: Head SYNTHES MAXILLOFACIAL 421.528 / / Plate Y Ti Lo Db 6h 21 421.517 - [id number] Implanted:Qty: 1 on 08/20/2021 by Joni Hand III, MD at [place] [facility] [place] Right: Head SYNTHES MAXILLOFACIAL 421.517 / / Screw Ti Lo Pro Sd 4mm 400.834 - [id number] Implanted:Qty: 10 on 08/20/2021 by Joni Hand III, MD at [place] [facility] [place] Right: Head SYNTHES MAXILLOFACIAL 400.834 / / Cement Hydroset Injectable 5cc - [id number] Implanted:Qty: 1 on 03/03/2024 by Joni Hand III, MD at [place] [facility] [place] Left: Head SUZANNA [id number] 09/19/2025 [id number] / / [id number] Cover Bur Hol Ti Lo 17 421.527 - [id number] Implanted:Qty: 1 on 03/03/2024 by Joni Hand III, MD at [place] [facility] [place] Left: Head SYNTHES MAXILLOFACIAL 421.527 / / Plate Ti Lo Pro Str 2h 421.502 - [id number] Implanted:Qty: 2 on 03/03/2024 by Joni Hand III, MD at [place] [facility] [place] Left: Head SYNTHES MAXILLOFACIAL 421.502 / / Screw 4mm Ti Low Pro Sdrill - [id number] Implanted:Qty: 7 on 03/03/2024 by Joni Hand III, MD at [place] [facility] [place] Left: Head SYNTHES MAXILLOFACIAL 400.834E [...] and were consensually agreed upon. Care Teams Database Technician Relationship Specialty Start Date End Date Martin Solorio MD [address] [facility] [address] PCP - General Family Medicine 02/20/21 documented as of this encounter
--- OUTSIDE RECORDS SUMMARY | 2024-07-06 15:53 | External Medical Summary | Summary of Care ---
Author Name Unknown Organization [facility] Address [address] [place] [address] Phone [phone] Care Team Providers Care Strap Setter Name Role Phone Martin Solorio MD Primary Care Provider [phone] Reason for Visit * Reason Comments eRx-Medication Refill Encounter Details Date Type Department Care Team (Late st Contact Info) Description 06/13/2024 Refill [facility] [address] [place] [phone] Martin Solorio MD [address] [place] [address] [id number] Allergies Active Allergy Reactions Criticality Noted Date Comments Erythromycin 08/15/1997 seizures documented as of this encounter (statuses as of 06/18/2024) Medications MULTIVITAMINS PO TABS Take 1 Tablet [...] 5 05/04/20 24 Active Vitamin D (Ergocalciferol) 20604 UNIT Oral Capsule Take 50,000 Units by [...] as of this encounter (statuses as of 06/18/2024) Active Problems Problem Noted Date Diagnosed Date History of stroke 06/04/2024 Overview (06/04/2024): 08/22/23 MRI "There is a chronic lacunar infarction within the left thalamus." Cerebral atrophy 09/30/2023 Spinal stenosis of cervical region 09/30/2023 Coronary artery disease invo lving [place] coronary artery of [place] heart without angina pectoris 09/30/2023 Pulmonary nodules [...] as of this encounter (statuses as of 06/18/2024) Resolved Problems Problem Noted Date Diagnosed Date Resolved Date 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 Overview (06/04/2024): duplicate Left sided lacunar infarction 09/30/2023 06/04/2024 Overview (06/04/2024): 08/22/23 MRI "There is a chronic lacunar infarction within the left thalamus." Vasogenic brain edema 09/22/20212021 Intracranial hemorrhage 08/18/2021 03/08/2023 Psoriasis 08/26/2019 09/30/2023 Overview (08/26/2019): Plaque and [...] as of this encounter (statuses as of 06/18/2024) Immunizations Name Administration Dates Next Due COVID-19, [...] No 03/11/2024 Are you (or your family) watl eless or worried that you might be [...] on file Not on file Not on director of curriculum and instruction Not on file Not on file Not [...] PM EDT Do ольга Kumar RN documented as of this encounter Mental Status * Because of a physical, mental, or emotional condition, do you have serious difficulty concentrating, remembering, or making decisions? (5 years old or older) Answer Entry Date Author Yes 03/01/2024 1:15 PM EDT Stacy, Do ольга Jones RN documented in this encounter Miscellaneous Notes * Telephone Encounter - Nereyda Chen, [facility] - 06/18/2024 4:21 PM EST Images from the original note were not included. Called pt to clarify levothyroxine dose/refill request. LMOVM. When pt returns call, please transfer to me. If I am not available, please transfer to the next [facility]. Thank you, Nereyda Chen, PharmD Clinical Pharmacist [facility] ([facility]) 06/18/24 4:22 PM [phone] * Telephone Encounter - Nereyda Chen [facility] - 06/15/2024 1:36 PM EST Refused Prescriptions: Disp Refills Levothyroxine Sodium 200 MCG Oral Tablet 90 Tab*0 Sig: TAKE 1 TABLET BY MOUTH IN THE MORNING AT LEAST 30 MIN PRIOR TO BREAKFAST OR OTHER MEDSRefused By: NEREYDA CHENReason for Refusal: Dose needs clarification documented in this encounter Plan of Treatment Upcoming Encounters Date Type Department Care Team (Late st Contact Info) Description 07/05/2024 9:45 AM EST Office Visit Neurosurgery, [place] [address] [place] [address] Clinic, Brain Tumor Multidisciplinary [facility] [place] [address] 07/13/2024 9:15 AM EST Office Visit Hematology/Oncology [facility] [address] [facility] [place] [phone] Benja Watkins MD [address] [place] [address] 08/02/2024 8:20 AM EST Office Visit [facility] [address] [facility] [place] [phone] Martin Solorio MD 226 [facility] [place] [address] 08/10/2024 9:45 AM EST Pharmacy Pharmacy Hematology Oncology [place] [address] [place] [address] [facility] Hem/Onc [address] [facility] [place] [address] 10/05/2024 12:30 PM EDT Telemedicine Care at Home [address] [facility] [place] [address] Kori Dumont PA-C [address] [facility] [place] [address] 02/14/2025 8:00 AM EDT Imaging Radiology [address], [place] [address] [facility] [place] [address] Scheduled Procedures Name [...] 09/30/2023 DISCUSS TOBACCO CESSATION (REFER TO SMARTSET #0523) 01/28/2025 01/29/2024 TSH 01/28/2025 01/29/2024, 07/21, 07/25/2023, [...] this encounter Medical Devices Implanted Type Area Package Dye Stand Loader Device Identifier Shelf Expiration Date Model / Serial / Lot Cover Nilda Hole 24mm 421.528 - [id number] Implanted:Qty: 1 on 08/20/2021 by Joni Hand III, MD at OR [facility] [place] [facility] Right: Head SYNTHES MAXILLOFACIAL 421.528 / / Plate Y Ti Lo Db 6h 21 421.517 - [id number] Implanted:Qty: 1 on 08/20/2021 by Joni Hand III, MD at OR [facility] [place] Right: Head SYNTHES MAXILLOFACIAL 421.517 / / Screw Ti Lo Pro Sd 4mm 400.834 - [id number] Implanted:Qty: 10 on 08/20/2021 by Joni Hand III, MD at OR [facility] [place] [facility] Right: Head SYNTHES MAXILLOFACIAL 400.834 / / Cement Hydroset Injectable 5cc - [id number] Implanted:Qty: 1 on 03/03/2024 by Joni Hand III, MD at OR [facility] [place] [facility] Left: Head SUZANNA [id number] 09/19/2025 [id number] / / [id number] Cover Bur Hol Ti Lo 17 421.527 - [id number] Implanted:Qty: 1 on 03/03/2024 by Joni Hand III, MD at OR [facility] [place] [facility] Left: Head SYNTHES MAXILLOFACIAL 421.527 / / Plate Ti Lo Pro Str 2h 421.502 - [id number] Implanted:Qty: 2 on 03/03/2024 by Joni Hand III, MD at OR [facility] [place] [facility] Left: Head SYNTHES MAXILLOFACIAL 421.502 / / Screw 4mm Ti Low Pro Sdrill - [id number] Implanted:Qty: 7 on 03/03/2024 by Joni Hand III, MD at OR [facility] [place] [facility] Left: Head SYNTHES MAXILLOFACIAL 400.834E / [...] and were consensually agreed upon. Care Teams Strap Setter Relationship Specialty Start Date End Date Martin Solorio MD [address] [place] [phone] PCP - General Family Medicine 02/20/21 documented as of this encounter
--- OUTSIDE RECORDS SUMMARY | 2024-07-06 15:53 | External Medical Summary | Summary of Care ---
Author Name Unknown Organization [facility] Address [address] [place] [place] [address] Phone [phone] Care Team Providers Care Abnormal Psychology Teacher Name Role Phone Martin Solorio MD Primary Care Provider [phone] Reason for Visit * Reason Onset Date Comments Health Maintenance 06/28/2024 Encounter Details Date Type Department Care Team (Late st Contact Info) Description 06/28/2024 Telephone [facility] [address] [facility] [place] [address] Martin Solorio MD 226 [facility] [place] [phone] Health Maintenance Allergies Active Allergy Reactions Criticality Noted Date Comments Erythromycin 08/15/1997 seizures documented as of this encounter (statuses as of 06/28/2024) Medications MULTIVITAMINS PO TABS Take 1 Tablet [...] 1 capsule before bedtime. 120 Capsule 2 05/04/20 24 Active Vitamin D (Ergocalciferol) 09051 UNIT Oral Capsule Take 50,000 Units by mouth once a week. For 8 weeks 8 Capsule 10/30/20 24 Active Acetaminophen 325 MG Oral Tablet [...] as of this encounter (statuses as of 06/28/2024) Active Problems Problem Noted Date Diagnosed Date History of stroke 06/04/2024 Overview (06/04/2024): 08/22/23 MRI "There is a chronic lacunar infarction within the left thalamus." Cerebral atrophy 09/30/2023 Spinal stenosis of cervical region 09/30/2023 Coronary artery disease invo lving [place] coronary artery of [place] heart without angina pectoris 09/30/2023 Pulmonary nodules [...] as of this encounter (statuses as of 06/28/2024) Resolved Problems Problem Noted Date Diagnosed Date [...] as of this encounter (statuses as of 06/28/2024) Immunizations Name Administration Dates Next Due COVID-19, [...] on file Not on file Not on bull bucker Not on file Not on file Not [...] encounter Miscellaneous Notes * Telephone Encounter - Kaitlynn WattsASIYA - 06/28/2024 9:00 AM EST Care Gaps Comprehensive Care Outreach Last Office/Telemedicine Visit: Visit date not found (in office), Visit date not found (telemedicine) Next Office Visit: 08/02/2024 Hemoglobin AIC Results: No results found for: "HEMOGLOBIN A1C" BP Readings from Last 1 Encounters: 06/07/24 136/84 Reviewed Health Maintenance below: Health Maintenance Topic Date Due Alpha-1 Antitrypsin Never done Influenza Vaccine (FLU shot) (1) 03/21/2024 Pneumococcal Vaccine: 65+ Years (3 of 3 - PPSV23 or PCV20) 07/15/2024 (Originally 05/03/2023) DXA Scan 07/20/2024 (Originally 2023) Hepatitis C Screening 07/20/2024 (Originally 1978) Depression Screening 09/10/2024 Adult Wellness Visit 09/29/2024 Roberth Castillo september already scheduled Care Gap Outreach Action Taken: Outreach not indicated documented in this encounter Plan of Treatment Upcoming Encounters Date Type Department Care Team (Late st Contact Info) Description 07/05/2024 9:45 AM EST Office Visit Neurosurgery, [address] [address] Clinic, Brain Tumor Multidisciplinary [address] [place] [address] 07/13/2024 9:15 AM EST Office Visit Hematology/Oncology [facility] [address] [place] [address] Benja Watkins MD [address] [place] [address] 08/02/2024 8:20 AM EST Office Visit [facility] [address] [place] [phone] Martin Solorio MD [address] [place] [address] 08/10/2024 9:45 AM EST Pharmacy Pharmacy Hematology Oncology [facility], [address] [address] c, Mtm Clinic Hem/Onc [address] [place] [address] 10/05/2024 12:30 PM EDT Telemedicine Care at Home [address] [place] [address] Kori Dumont PA-C [address] [place] [address] 02/14/2025 8:00 AM EDT Imaging Radiology [address], [address] [place] [address] Scheduled Procedures Name Priority Associated Diagnoses Date/Ti [...] 09/30/2023 DISCUSS TOBACCO CESSATION (REFER TO SMARTSET #5118) 01/28/2025 01/29/2024 TSH 01/28/2025 01/29/2024, 07/21, 07/25/2023, [...] this encounter Medical Devices Implanted Type Area Olap Developer Device Identifier Shelf Expiration Date Model / Serial / Lot Cover [place] Hole 24mm 421.528 - [id number] Implanted:Qty: 1 on 08/20/2021 by Joni Hand III, [place] [facility] [place]: Head SYNTHES MAXILLOFACIAL 421.528 / / Plate Y Ti Lo Db 6h 21 421.517 - [id number] Implanted:Qty: 1 on 08/20/2021 by Joni Hand III, [place] [facility] [place]: Head SYNTHES MAXILLOFACIAL 421.517 / / Screw Ti Lo Pro Sd 4mm 400.834 - [id number] Implanted:Qty: 10 on 08/20/2021 by Joni Hand III, [place] [facility] Right: Head SYNTHES MAXILLOFACIAL 400.834 / / Cement Hydroset Injectable 5cc - [id number] Implanted:Qty: 1 on 03/03/2024 by Joni Hand III, [place] [facility] Left: Head SUZANNA [id number] 09/19/2025 [id number] / / [id number] Cover Bur Hol Ti Lo 17 421.527 - [id number] Implanted:Qty: 1 on 03/03/2024 by Joni Hand III, MD [place] [facility] Left: Head SYNTHES MAXILLOFACIAL 421.527 / / Plate Ti Lo Pro Str 2h 421.502 - [id number] Implanted:Qty: 2 on 03/03/2024 by Joni Hand III, MD [place] [facility] Left: Head SYNTHES MAXILLOFACIAL 421.502 / / Screw 4mm Ti Low Pro Sdrill - [id number] Implanted:Qty: 7 on 03/03/2024 by Joni Hand III, MD [place] [facility] Left: Head SYNTHES MAXILLOFACIAL 400.834E / / [...] and were consensually agreed upon. Care Teams Abnormal Psychology Teacher Relationship Specialty Start Date End Date Martin Solorio MD [address] [facility] [place] [address] PCP - General Family Medicine 02/20/21 documented as of this encounter
--- OUTSIDE RECORDS SUMMARY | 2024-07-06 15:53 | External Medical Summary | Summary of Care ---
Author Name Unknown Organization [facility] Address [address] [facility] [place] [address] Phone [phone] Care Team Providers Care Associate Professor Of Forestry Name Role Phone Martin Solorio MD Primary Care Provider Reason for Visit * Reason Onset Date Comments Medication Refill 07/03/2024 Encounter Details Date Type Department Care Team (Late st Contact Info) Description 07/03/2024 Telephone [facility] 226 [place] [address] Martin Solorio MD 226 [facility] [place] [phone] Medication Refill Allergies Active Allergy Reactions Criticality Noted Date Comments Erythromycin 08/15/1997 seizures documented as of this encounter (statuses as of 07/03/2024) Medications MULTIVITAMINS PO TABS Take 1 Tablet [...] EST 05/04/20 24 Active Vitamin D (Ergocalciferol) 76145 UNIT Oral Capsule Take 50,000 Units by mouth once a week. For 8 weeks 8 Capsule 05/19/20 Active Acetaminophen 325 MG Oral Tablet (Tylenol) [...] as of this encounter (statuses as of 07/03/2024) Active Problems Problem Noted Date Diagnosed Date History of stroke 06/04/2024 Overview (06/04/2024): 08/22/23 MRI "There is a chronic lacunar infarction within the left thalamus." Cerebral atrophy 09/30/2023 Spinal stenosis of cervical region 09/30/2023 Coronary artery disease invo lving [place] coronary artery of [place] heart without angina pectoris 09/30/2023 Pulmonary nodules [...] as of this encounter (statuses as of 07/03/2024) Resolved Problems Problem Noted Date Diagnosed Date [...] as of this encounter (statuses as of 07/03/2024) Immunizations Name Administration Dates Next Due COVID-19, [...] file Not on file Not on file keeper Not on file Not on file Not [...] encounter Miscellaneous Notes * Telephone Encounter - Brianna Vaughn PHARM Tech - 07/03/2024 3:55 PM EST Pt calling requesting the following medication below that is listed as "Historical". The following information was provided: Medication Name: Levothyroxine Sodium Strength: 175 MCG Directions: Take 1 tablet by mouth in the morning Preferred Quantity: 90 Previous Prescriber: old pcp Preferred Pharmacy: [facility] [id number] [place] [place] Please review and approve if appropriate. Thank you, Brianna Vaughn CPhT Human Factors Ergonomist II [facility] Services ([facility]) 07/03/2024,3:55 PM documented in this encounter Plan of Treatment Upcoming Encounters Date Type Department Care Team (Late st Contact Info) Description 07/13/2024 9:15 AM EST Office Visit Hematology/Oncology [facility] 200 [facility] [place] [address] Benja Watkins MD 200 [facility] [place] [address] 08/02/2024 8:20 AM EST Office Visit [facility] [address] [place] [phone] Martin Solorio MD [address] [place] [address] 08/10/2024 9:45 AM EST Pharmacy Pharmacy Hematology Oncology [facility] [address] [place] [address] [facility] Hem/Onc [address] [place] [address] 10/05/2024 12:30 PM EDT Telemedicine Care at Home [address] [place] [address] Kori Dumont PA-C [address] [place] [address] 02/14/2025 8:00 AM EDT Imaging Radiology [address], [place] 132 [facility] [place] [address] Scheduled Procedures Name Priority Associated Diagnoses Date/Ti [...] 09/30/2023 DISCUSS TOBACCO CESSATION (REFER TO SMARTSET #3291) [...] this encounter Medical Devices Implanted Type Area Pediatrician Device Identifier Shelf Expiration Date Model / Serial / Lot Cover Nilda Hole 24mm 421.528 - [id number] Implanted:Qty: 1 on 08/20/2021 by Joni Hand III, [place] [facility] Right: Head SYNTHES MAXILLOFACIAL 421.528 / / Plate Y Ti Lo Db 6h 21 421.517 - [id number] Implanted:Qty: 1 on 08/20/2021 by Joni Hand III, [place] [facility] Right: Head SYNTHES MAXILLOFACIAL 421.517 / / Screw Ti Lo Pro Sd 4mm 400.834 - [id number] Implanted:Qty: 10 on 08/20/2021 by Joni Hand III, MD [place] [facility] Right: Head SYNTHES MAXILLOFACIAL 400.834 / / Cement Hydroset Injectable 5cc - [id number] Implanted:Qty: 1 on 03/03/2024 by Joni Hand III, MD [place] [facility] Left: Head SUZANNA [id number] 09/19/2025 [id number] / / [id number] Cover Bur Hol Ti Lo 17 421.527 - [id number] Implanted:Qty: 1 on 03/03/2024 by Joni Hand III, MD [place] [facility] Left: Head SYNTHES MAXILLOFACIAL 421.527 / / Plate Ti Lo Pro Str 2h 421.502 - [id number] Implanted:Qty: 2 on 03/03/2024 by Joni Hand III, MD [place] [facility] Left: Head SYNTHES MAXILLOFACIAL 421.502 / / Screw 4mm Ti Low Pro Sdrill - [id number] Implanted:Qty: 7 on 03/03/2024 by Joni Hand [...] and were consensually agreed upon. Care Teams Associate Professor Of Forestry Relationship Specialty Start Date End Date Martin Solorio MD [address] [place] [address] PCP - General Family Medicine 02/20/21 documented as of this encounter
--- OUTSIDE RECORDS SUMMARY | 2024-07-06 15:53 | External Medical Summary | Summary of Care ---
Author Name Unknown Organization [facility] Address [address] [facility] [address] Phone [phone] Care Team Providers Care Party Plan Demonstrator Name Role Phone Martin Solorio MD Primary Care Provider Reason for Visit * Reason Onset Date Comments Medication Refill 07/03/2024 Status Check 07/03/2024 Encounter Details Date Type Department Care Team (Late st Contact Info) Description 07/03/2024 [facility]phone [facility] [address] [facility] [address] Martin Solorio MD 226 [facility] [place] [address] Medication Refill; Status Check Allergies Active [...] EST 05/04/20 24 Active Vitamin D (Ergocalciferol) 15865 UNIT Oral Capsule Take 50,000 Units by [...] region 09/30/2023 Coronary artery disease invo lving [place] coronary artery of [place] heart without angina pectoris 09/30/2023 Pulmonary nodules [...] on file Not on file Not on asphalt patcher Not on file Not on file Not [...] EDT Stacy, Do ольга Jones RN documented as of this encounter Mental Status * Because of a physical, mental, or emotional condition, do you have serious difficulty concentrating, remembering, or making decisions? (5 years old or older) Answer Entry Date Author Yes 03/01/2024 1:15 PM EDT Do ольга Kumar RN documented in this encounter Miscellaneous Notes * Telephone Encounter - Elizabeth Dickerson OSA [...] 90 Previous Prescriber: old pcp Preferred Pharmacy: [facility] [address] [place] Please review and approve if appropriate. Thank you, Brianna Vaughn [facility] Starting Gate Driver II [facility] Services ([facility]) 07/03/2024,3:55 PM documented in this encounter Plan of Treatment Upcoming Encounters Date Type Department Care Team (Late st Contact Info) Description 07/13/2024 9:15 AM EST Office Visit Hematology/Oncology [facility] 200 [facility] [place] [address] Benja Watkins MD 200 [place] [address] 08/02/2024 8:20 AM EST [facility] [address] [place] [address] Martin Solorio MD [address] [place] [address] 08/10/2024 9:45 AM EST Pharmacy Pharmacy Hematology Oncology [facility] [address] [place] [address] [facility] Hem/Onc [address] [place] [address] 10/05/2024 12:30 PM EDT Telemedicine Care at Home [address] [place], [place] [phone] Kori Dumont PA-C [address] [place], [place] [phone] 02/14/2025 8:00 AM EDT Imaging Radiology [facility] [facility] [place] 132 [facility] [place] [address] Scheduled Procedures Name Priority Associated Diagnoses Date/Ti [...] liuz from 1978 (Patient Declined After Education) Depression Screening 09/10/2024 09/10/2023 Adult Wellness Visit 09/29/2024 09/30/2023 DISCUSS TOBACCO CESSATION (REFER TO SMARTSET #9002) 01/28/2025 01/29/2024 TSH 01/28/2025 01/29/2024, 07/21, 07/25/2023, [...] this encounter Medical Devices Implanted Type Area Law Examiner Device Identifier Shelf Expiration Date Model / Serial / Lot Cover [place] Hole 24mm 421.528 - [id number] Implanted:Qty: 1 on 08/20/2021 by Joni Hand III, MD at [place] [facility] [place] Right: Head SYNTHES MAXILLOFACIAL 421.528 / / Plate Y Ti Lo Db 6h 21 421.517 - [id number] Implanted:Qty: 1 on 08/20/2021 by Joni Hand III, MD at [place] [facility] Right: Head SYNTHES MAXILLOFACIAL 421.517 / / Screw Ti Lo Pro Sd 4mm 400.834 - [id number] Implanted:Qty: 10 on 08/20/2021 by Joni Hand III, MD at [place] [facility] Right: Head SYNTHES MAXILLOFACIAL 400.834 / / Cement Hydroset Injectable 5cc - [id number] Implanted:Qty: 1 on 03/03/2024 by Joni Hand III, MD at [place] [facility] Left: Head SUZANNA [id number] 09/19/2025 [id number] / / [id number] Cover Bur Hol Ti Lo 17 421.527 - [id number] Implanted:Qty: 1 on 03/03/2024 by Joni Hand III, MD at [place] [facility] Left: Head SYNTHES MAXILLOFACIAL 421.527 / / Plate Ti Lo Pro Str 2h 421.502 - [id number] Implanted:Qty: 2 on 03/03/2024 by Joni Hand III, MD at [place] [facility] Left: Head SYNTHES MAXILLOFACIAL 421.502 / / Screw 4mm Ti Low Pro Sdrill - [id number] Implanted:Qty: 7 on 03/03/2024 by Joni Hand III, MD at [place] [facility] Left: Head SYNTHES MAXILLOFACIAL 400.834E / / [...] and were consensually agreed upon. Care Teams Party Plan Demonstrator Relationship Specialty Start Date End Date Martin Solorio MD [address] [facility] [place] [address] PCP - General Family Medicine 02/20/21 documented as of this encounter
--- OUTSIDE RECORDS SUMMARY | 2024-07-06 15:53 | External Medical Summary | Summary of Care ---
Author Name Unknown Organization [facility] Address [address] [place] [place] [place] [address] Phone [phone] Care Team Providers Care Cut File Clerk Name Role Phone Martin Solorio MD Primary Care Provider [phone] Reason for Visit * Reason Onset Date Comments Medication Refill 07/05/2024 Encounter Details Date Type Department Care Team (Late st Contact Info) Description 07/05/2024 Refill [facility] [address] [facility] [place] [address] Martin Solorio MD [address] [place], [place] [phone] Allergies Active Allergy Reactions Criticality Noted Date [...] EST 05/04/20 24 Active Vitamin D (Ergocalciferol) 36450 UNIT Oral Capsule Take 50,000 Units by [...] region 09/30/2023 Coronary artery disease invo lving kenaitze coronary artery of kenaitze heart without angina pectoris 09/30/2023 Pulmonary nodules [...] on file Not on file Not on files supervisor Not on file Not on file Not [...] encounter Miscellaneous Notes * Telephone Encounter - Laura Ziegler PHARM Tech - 07/05/2024 4:39 PM EST Pt calling to request paroxetine. Informed pt that RX is available at their pharmacy. Pt verbalizedunderstanding and stated they will check with their pharmacy regarding this medication. Thank You, Laura Ziegler CPhT Orientor II [facility] Pharmacy Services ([facility]PS) 07/05/2024, 4:40 PM documented in this encounter Plan of Treatment Upcoming Encounters Date Type Department Care Team (Late st Contact Info) Description 07/13/2024 9:15 AM EST Office Visit Hematology/Oncology [facility] [address] [facility] [place] [address] Benja Watkins MD [address] [facility] [place] [address] 08/02/2024 8:20 AM EST Office Visit [facility] [address] [place] [phone] Martin Solorio MD [address] [place] [address] 08/10/2024 9:45 AM EST Pharmacy Pharmacy Hematology Oncology [facility] [address] [place] [address] [facility] Hem[facility]Onc [address] [place] [address] 10/05/2024 12:30 PM EDT Telemedicine Care at Home [address] [place] [address] Kori Dumont PA-C [address] [place] [address] 02/14/2025 8:00 AM EDT Imaging Radiology [facility]st [facility] [address] [facility] [place], [place] [phone] Scheduled Procedures Name Priority Associated Diagnoses Date/Ti [...] this encounter Medical Devices Implanted Type Area Lean Process Deployment Consultant Device Identifier Shelf Expiration Date Model / Serial / Lot Cover Nilda Hole 24mm 421.528 - [id number] Implanted:Qty: 1 on 08/20/2021 by Joni Hand III, MD [place] [facility] Right: Head SYNTHES MAXILLOFACIAL 421.528 / / Plate Y Ti Lo Db 6h 21 421.517 - [id number] Implanted:Qty: 1 on 08/20/2021 by Joni Hand III, MD [place] [facility] Right: Head SYNTHES MAXILLOFACIAL 421.517 / / Screw Ti Lo Pro Sd 4mm 400.834 - [id number] Implanted:Qty: 10 on 08/20/2021 by Joni Hand III, MD at [place] [facility] Right: Head SYNTHES MAXILLOFACIAL 400.834 / / Cement Hydroset Injectable 5cc - [id number] Implanted:Qty: 1 on 03/03/2024 by Joni Hand III, MD at [place] [facility] Left: Head SUZANNA [id number] 09/19/2025 [id number] / / [id number] Cover Bur Hol Ti Lo 17 421.527 - [id number] Implanted:Qty: 1 on 03/03/2024 by Joni Hand III, MD at [place] [facility] Left: Head SYNTHES MAXILLOFACIAL 421.527 / / Plate Ti Lo Pro Str 2h 421.502 - [id number] Implanted:Qty: 2 on 03/03/2024 by Joni Hand III, MD at [place] [facility] Left: Head SYNTHES MAXILLOFACIAL 421.502 / / Screw 4mm Ti Low Pro Sdrill - [id number] Implanted:Qty: 7 on 03/03/2024 by Joni Hand III, MD at [place] [facility] Left: Head SYNTHES MAXILLOFACIAL 400.834E / / [...] and were consensually agreed upon. Care Teams Cut File Clerk Relationship Specialty Start Date End Date Martin Solorio MD [address] [facility] [place] [address] PCP - General Family Medicine 02/20/21 documented as of this encounter
--- OUTSIDE RECORDS SUMMARY | 2024-07-06 15:53 | External Medical Summary | Summary of Care ---
Author Name Unknown Organization [facility] Address [address] [facility] [address] Phone [phone] Care Team Providers Care Mortgage Coordinator Name Role Phone Martin Solorio MD Primary Care Provider Reason for Visit * Reason Onset Date Comments Medication Refill 07/03/2024 Status Check 07/03/2024 Encounter Details Date Type Department Care Team (Late st Contact Info) Description 07/03/2024 Telephone [facility] [address] [facility] [place] [address] Martin Solorio MD [address] [facility] [place] [address] Medication Refill; Status Check Allergies Active [...] EST 05/04/20 24 Active Vitamin D (Ergocalciferol) 07159 UNIT Oral Capsule Take 50,000 Units by [...] region 09/30/2023 Coronary artery disease invo lving asa'carsarmiut coronary artery of asa'[place] heart without angina pectoris 09/30/2023 Pulmonary nodules [...] on file Not on file 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 Thank you, Brianna Vaughn [facility] Senior Business Development Manager II [facility] Clinical Pharmacy Services ([facility]PS) 07/03/2024,3:55 PM documented in this encounter Plan of Treatment Upcoming Encounters Date Type Department Care Team (Late st Contact Info) Description 07/13/2024 9:15 AM EST Office Visit Hematology/Oncology [facility] 200 [facility] [place] [phone] Benja Watkins MD 200 [facility] [address] 08/02/2024 8:20 AM EST Office Visit [facility] [address] [place] [phone] Martin Solorio MD [address] [place] [address] 08/10/2024 9:45 AM EST Pharmacy Pharmacy Hematology Oncology [facility] [address] [place] [address] [facility] Hem/Onc [address] [place] [address] 10/05/2024 12:30 PM EDT Telemedicine Care at Home [address] [place], [place] [phone] Kori Dumont PA-C [address] [place], [place] [phone] 02/14/2025 8:00 AM EDT Imaging Radiology [facility] [address]st [facility], [place] 132 [facility] [place] [address] Scheduled Procedures Name Priority Associated Diagnoses Date/Ti [...] 09/30/2023 DISCUSS TOBACCO CESSATION (REFER TO SMARTSET #0150) 01/28/2025 01/29/2024 TSH 01/28/2025 01/29/2024, 07/21, 07/25/2023, [...] this encounter Medical Devices Implanted Type Area Dining Service Supervisor Device Identifier Shelf Expiration Date Model / Serial / Lot Cover [place] Hole 24mm 421.528 - [id number] Implanted:Qty: 1 on 08/20/2021 by Joni Hand III, [place] [facility] [place]: Head SYNTHES MAXILLOFACIAL 421.528 / / Plate Y Ti Lo Db 6h 21 421.517 - [id number] Implanted:Qty: 1 on 08/20/2021 by Joni Hand III, [place] [facility] Right: Head SYNTHES MAXILLOFACIAL 421.517 / / Screw Ti Lo Pro Sd 4mm 400.834 - [id number] Implanted:Qty: 10 on 08/20/2021 by Joni Hand III, [place] [facility] Right: Head SYNTHES MAXILLOFACIAL 400.834 / / Cement Hydroset Injectable 5cc - [id number] Implanted:Qty: 1 on 03/03/2024 by Joni Hand III, [place] [facility] Left: Head SUZANNA [id number] 09/19/2025 [id number] / / [id number] Cover Bur Hol Ti Lo 17 421.527 - [id number] Implanted:Qty: 1 on 03/03/2024 by Joni Hand III, [place] [facility] Left: Head SYNTHES MAXILLOFACIAL 421.527 / / Plate Ti Lo Pro Str 2h 421.502 - [id number] Implanted:Qty: 2 on 03/03/2024 by Joni Hand III, [place] [facility] Left: Head SYNTHES MAXILLOFACIAL 421.502 / / Screw 4mm Ti Low Pro Sdrill - [id number] Implanted:Qty: 7 on 03/03/2024 by Joni Hand III, MD [place] [facility] Left: Head SYNTHES MAXILLOFACIAL 400.834E / / [...] and were consensually agreed upon. Care Teams Mortgage Coordinator Relationship Specialty Start Date End Date Martin Solorio MD [address] [facility] [place] [address] PCP - General Family Medicine 02/20/21 documented as of this encounter
--- OUTSIDE RECORDS SUMMARY | 2024-07-06 15:53 | External Medical Summary | Summary of Care ---
Author Name Unknown Organization [facility] Address [address] [place] [address] Phone [phone] Care Team Providers Care Insurance Administrative Assistant Name Role Phone Martin Solorio MD Primary Care Provider [phone] Reason for Visit * Reason Onset Date Comments Appointment 07/02/2024 Needs to schedul e MRI Brain and resche[place] [facility] [place] Encounter Details Date Type Department Care Team (Late st Contact Info) Description 07/02/2024 Telephone Neurology, [place] [address] [place] [address] Clinic, Brain Tumor Multidisciplinary [address] [place] [address] Appointment (Needs to schedule MRI Brain a... Allergies Active Allergy Reactions Criticality Noted Date Comments Erythromycin 08/15/1997 seizures documented as of this encounter (statuses as of 07/02/2024) Medications MULTIVITAMINS PO TABS Take 1 Tablet [...] EST 05/04/20 24 Active Vitamin D (Ergocalciferol) 35335 UNIT Oral Capsule Take 50,000 Units by [...] as of this encounter (statuses as of 07/02/2024) Active Problems Problem Noted Date Diagnosed Date [...] as of this encounter (statuses as of 07/02/2024) Resolved Problems Problem Noted Date Diagnosed Date [...] as of this encounter (statuses as of 07/02/2024) Immunizations Name Administration Dates Next Due COVID-19, [...] on file Not on file Not on process development engineer Not on file Not on file Not [...] Telephone Encounter - Kori Bailey LPN - 07/02/2024 10:32 AM EST Called patient's mobile number, patient's Kwame answered when asked for Jduy's last name and date of he stated that he is on his way to the store and can't talk. I asked if I call the home number would Judy be able to answer. He stated no he requested that I call him back in about 3 hours. I stated that I will. Wanted to inform her that she needs to have an MRI Brain completed and her BT [facility] appt. Rescheduled. Also wanted to give her the [facility] central scheduling number [phone] to call and schedule the MRIto fit with their schedule. documented in this encounter Plan of Treatment Upcoming Encounters Date Type Department Care Team (Late st Contact Info) Description 07/13/2024 9:15 AM EST Office Visit Hematology/Oncology [facility] [place] [address] [facility] [place] [phone] Benja Watkins MD [facility] [address] 08/02/2024 8:20 AM EST Office Visit [facility] [address] [place] [phone] Martin Solorio MD [address] [place] [address] 08/10/2024 9:45 AM EST Pharmacy Pharmacy Hematology Oncology [facility] [address] [place] [address] [facility] Hem/Onc [facility] [place] [address] 10/05/2024 12:30 PM EDT Telemedicine Care at Home [address] [place] [address] Kori Dumont PA-C [address] [place] [address] 02/14/2025 8:00 AM EDT Imaging Radiology [address] 132 [facility] [place] [address] Scheduled Procedures Name Priority Associated Diagnoses Date/Ti [...] 09/30/2023 DISCUSS TOBACCO CESSATION (REFER TO SMARTSET #5618) 01/28/2025 01/29/2024 TSH 01/28/2025 01/29/2024, 07/21, 07/25/2023, [...] this encounter Medical Devices Implanted Type Area Cook Helper Meat Device Identifier Shelf Expiration Date Model / Serial / Lot Cover [place] Hole 24mm 421.528 - [id number] Implanted:Qty: 1 on 08/20/2021 by Joni Hand III, MD at [place] [facility] Right: Head SYNTHES MAXILLOFACIAL 421.528 / / Plate Y Ti Lo Db 6h 21 421.517 - [id number] Implanted:Qty: 1 on 08/20/2021 by Joni Hand III, MD at [place] [facility] Right: Head SYNTHES MAXILLOFACIAL 421.517 / / Screw Ti Lo Pro Sd 4mm 400.834 - [id number] Implanted:Qty: 10 on 08/20/2021 by Joni Hand III, MD at [place] [facility] Right: Head SYNTHES MAXILLOFACIAL 400.834 / / Cement Hydroset Injectable 5cc - [id number] Implanted:Qty: 1 on 03/03/2024 by Joni Hand III, MD at [place] [facility] Left: Head SUZANNA [id number] 09/19/2025 [id number] / / [id number] Cover Bur Hol Ti Lo 17 421.527 - [id number] Implanted:Qty: 1 on 03/03/2024 by Joni Hand III, MD at [place] [facility] Left: Head SYNTHES MAXILLOFACIAL 421.527 / / Plate Ti Lo Pro Str 2h 421.502 - [id number] Implanted:Qty: 2 on 03/03/2024 by Joni Hand III, MD at [place] [facility] Left: Head SYNTHES MAXILLOFACIAL 421.502 / / Screw 4mm Ti Low Pro Sdrill - [id number] Implanted:Qty: 7 on 03/03/2024 by Joni Hand III, MD at [place] [facility] Left: Head SYNTHES MAXILLOFACIAL 400.834E / / [...] and were consensually agreed upon. Care Teams Insurance Administrative Assistant Relationship Specialty Start Date End Date Martin Solorio MD [address] [place] [address] PCP - General Family Medicine 02/20/21 documented as of this encounter
--- OUTSIDE RECORDS SUMMARY | 2024-07-06 15:54 | External Medical Summary | Summary of Care ---
Author Name Unknown Organization [facility] Address [address] [place] [address] Phone [phone] Care Team Providers Care Car Salter Name Role Phone Martin Solorio MD Primary Care Provider [phone] Encounter Details Date Type Department Care Team (Late st Contact Info) Description 06/15/2024 8:15 AM EST Scheduled Telephone Care Coordination and Integration [address] [place] [address] Kori Quezada, Community Health Crm Developer [address] [place], [place] [phone] Allergies Active Allergy Reactions Criticality Noted Date Comments Erythromycin 08/15/1997 seizures documented as of this encounter (statuses as of 06/15/2024) Medications MULTIVITAMINS PO TABS Take 1 Tablet [...] 5 05/04/20 24 Active Vitamin D (Ergocalciferol) 19781 UNIT Oral Capsule Take 50,000 Units by mouth once a week. For 8 weeks 8 Capsule 05/19/20 24 Active Acetaminophen 325 MG Oral Tablet (Tylenol) Take 2 Tablets by mouth. 10/08/20 24 Active oxyCODONE HCl 5 MG Oral [...] as of this encounter (statuses as of 06/15/2024) Active Problems Problem Noted Date Diagnosed Date History of stroke 06/04/2024 Overview (06/04/2024): 08/22/23 MRI "There is a chronic lacunar infarction within the left thalamus." Cerebral atrophy 09/30/2023 Spinal stenosis of cervical region 09/30/2023 Coronary artery disease invo lving aniak coronary artery of aniak heart without angina pectoris 09/30/2023 Pulmonary nodules [...] as of this encounter (statuses as of 06/15/2024) Resolved Problems Problem Noted Date Diagnosed Date [...] as of this encounter (statuses as of 06/15/2024) Immunizations Name Administration Dates Next Due COVID-19, [...] on file Not on file Not on filer finish Not on file Not on file Not [...] ольга Kumar RN documented in this encounter Progress Notes * Kori Quezada, Community Health Crm Developer - 06/15/2024 9:16 AM EST Telemedicine visit: No Community Health Crm Developer (SOREN) documentation: [facility] outbound call per Luis Alberto Bubb Pain not as bad as what it was. Tramadol and Tylenol Denies [place] PT /OT started and ended per spouse - spouse said they did not help her any. PT walked around [place] to Couch Denies headaches Denies Feer/Chills Denies Nausea/Vomiting Takes Mekinist and Tafinlar per they are cancer treatment pills Kori Quezada [facility] Community Health Worker Call or Text- [phone] documented in this encounter Plan of Treatment Upcoming Encounters Date Type Department Care Team (Late st Contact Info) Description 07/05/2024 9:45 AM EST Office Visit Neurosurgery, [place] [address] [place] [address] Clinic, Brain Tumor Multidisciplinary [address] [place] [address] 07/13/2024 9:15 AM EST Office Visit Hematology/[facility] [address] [facility] [address] Benja Watkins MD [address] [facility] [place] [address] 08/02/2024 8:20 AM EST [facility] [address] [place] [phone] Martin Solorio MD [address] [place] [address] 08/10/2024 9:45 AM EST Pharmacy Pharmacy Hematology Oncology [facility] [address] [place] [address] [facility] Hem[facility]Onc [address] [place] [address] 10/05/2024 12:30 PM EDT Telemedicine Care at Home [address] [place] [address] Kori Dumont PA-C [address] [place] [address] 02/14/2025 8:00 AM EDT Imaging Radiology [address], [place] 132 [facility] [place] [address] Scheduled Procedures Name Priority [...] 09/30/2023 DISCUSS TOBACCO CESSATION (REFER TO SMARTSET #2563) 01/28/2025 01/29/2024 TSH 01/28/2025 01/29/2024, 07/21, 07/25/2023, [...] this encounter Medical Devices Implanted Type Area [employer] Executive Director Device Identifier Shelf Expiration Date Model / Serial / Lot Cover [place] Hole 24mm 421.528 - [id number] Implanted:Qty: 1 on 08/20/2021 by Joni Hand III, MD at [place] [facility] Right: Head SYNTHES MAXILLOFACIAL 421.528 / / Plate Y Ti Lo Db 6h 21 421.517 - [id number] Implanted:Qty: 1 on 08/20/2021 by Joni Hand III, MD at OR [facility] Right: Head SYNTHES MAXILLOFACIAL 421.517 / / Screw Ti Lo Pro Sd 4mm 400.834 - [id number] Implanted:Qty: 10 on 08/20/2021 by Joni Hand III, MD at [place] [facility] Right: Head SYNTHES MAXILLOFACIAL 400.834 / / Cement Hydroset Injectable 5cc - [id number] Implanted:Qty: 1 on 03/03/2024 by Joni Hand III, MD at OR [facility] Left: Head SUZANNA [id number] 09/19/2025 [id number] / / [id number] Cover Bur Hol Ti Lo 17 421.527 - [id number] Implanted:Qty: 1 on 03/03/2024 by Joni Hand III, MD at OR [facility] Left: Head SYNTHES MAXILLOFACIAL 421.527 / / Plate Ti Lo Pro Str 2h 421.502 - [id number] Implanted:Qty: 2 on 03/03/2024 by Joni Hand III, MD at OR [facility] Left: Head SYNTHES MAXILLOFACIAL 421.502 / / Screw 4mm Ti Low Pro Sdrill - [id number] Implanted:Qty: 7 on 03/03/2024 by Joni Hand III, MD at [place] [facility] Left: Head SYNTHES MAXILLOFACIAL 400.834E / / [...] and were consensually agreed upon. Care Teams Car Salter Relationship Specialty Start Date End Date Martin Solorio MD [address] [place] [facility] [place] [address] PCP - General Family Medicine 02/20/21 documented as of this encounter
--- OUTSIDE RECORDS SUMMARY | 2024-07-06 15:54 | External Medical Summary | Summary of Care ---
Author Name Unknown Organization [facility] Address [address] [place] [address] Phone [phone] Care Team Providers Care Chocolate Coater Name Role Phone Martin Solorio MD Primary Care Provider [phone] Reason for Visit * Reason Comments Medication Management Encounter Details Date Type Department Care Team (Late st Contact Info) Description 06/08/2024 9:45 AM [facility] Pharmacy Pharmacy Hematology Oncology [facility] [address] [place] [address] [facility] Hem/Onc [address], [place] [id number] Malignant melanoma of left lower extremity (HCC)* Allergies Active Allergy Reactions Criticality Noted Date Comments Erythromycin 08/15/1997 seizures documented as of this encounter (statuses as of 06/08/2024) Medications MULTIVITAMINS PO TABS Take 1 Tablet [...] 5 05/04/20 24 Active Vitamin D (Ergocalciferol) 35056 UNIT Oral Capsule Take 50,000 Units by [...] as of this encounter (statuses as of 06/08/2024) Active Problems Problem Noted Date Diagnosed Date History of stroke 06/04/2024 Overview (06/04/2024): 08/22/23 MRI "There is a chronic lacunar infarction within the left thalamus." Cerebral atrophy 09/30/2023 Spinal stenosis of cervical region 09/30/2023 Coronary artery disease invo lving [place] coronary artery of [place] heart without angina pectoris 09/30/2023 Pulmonary nodules [...] as of this encounter (statuses as of 06/08/2024) Resolved Problems Problem Noted Date Diagnosed Date [...] as of this encounter (statuses as of 06/08/2024) Immunizations Name Administration Dates Next Due COVID-19, [...] on file Not on file Not on profiler operator Not on file Not on file Not [...] PM EDT Do ольга Kumar RN * Do you have difficulty dressing [...] documented in this encounter Progress Notes * Geri Acevedo, [facility] - 06/08/2024 1:44 PM EST MEDICATION THERAPY MANAGEMENT DABRAFENIB & TRAMETINIB TREATMENT PROGRESS NOTE Judy Garcia [id number] Patient Phone Numbers : Kwame Communication: Left message requesting return call to assess toleration to therapy Treatment: Medication: Dabrafenib // Trametinib Indication: metastatic melanoma Dose: 75 mg BID // 1.5 mg daily ( 02/2022) Administration: empty stomach (1 hour before or 2 hours after a meal) Start Date: 10/04/21 Primary Finisher Brush/Oncologist: Dr. Noman Watkins Supportive Care Meds: Ondansetron [...] to fill dabrafenib and trametinib Admitted to [facility] 03/01/24-03/04/24 for L frontal craniotomy - dabrafenib/trametinib continued during admission Admitted to [facility] 04/11/24-04/28/24 for left hip fracture and discharged from DC 05/13/24 Per PCP OV 06/07/24, short term memory worsening Changes to medication list since last visit? No Follow up: 3 weeks MDC; 5 weeks OV/labs; 9 weeks MTM Geri Acevedo, PharmD, BCOP Clinical Pharmacist, RAEGAN Oral Chemotherapy [facility] 06/08/2024, 1:48 PM Suggested lab monitoring: LVEF (via ECHO [...] Telephone Care Coordination and Integration [address] [place] [address] Kori Quezada, Community Health Marketing Analytics Analyst [address] [place] [address] 07/05/2024 9:45 AM EST Office Visit Neurosurgery, [place] [address] [place] [address] Clinic, Brain Tumor Multidisciplinary [address] [place] [address] 07/13/2024 9:15 AM EST Office Visit Hematology/Oncology [facility] Lillie [place] 200 [facility] [place] [phone] Benja Watkins MD 200 [facility] [place] [address] 08/02/2024 8:20 AM EST Office [facility] [address] [facility] [place] Payne[place]adora[place] [phone] Martin Solorio MD [address] [place] [address] 08/10/2024 9:45 AM EST Pharmacy Pharmacy Hematology Oncology [facility] [address] [place] [address] [facility] Hem/Onc [address] [place] [address] 10/05/2024 12:30 PM EDT Telemedicine Care at Home [address] [place] [address] Kori Dumont PA-C [address] [place] [address] 02/14/2025 8:00 AM EDT Imaging Radiology [address], [place] 132 [facility] [place] [address] Scheduled Procedures Name [...] 09/30/2023 DISCUSS TOBACCO CESSATION (REFER TO SMARTSET #3797) 01/28/2025 01/29/2024 TSH 01/28/2025 01/29/2024, 07/21, 07/25/2023, [...] this encounter Medical Devices Implanted Type Area Pipe Stress Engineer Device Identifier Shelf Expiration Date Model / Serial / Lot Cover Nilda Hole 24mm 421.528 - [id number] Implanted:Qty: 1 on 08/20/2021 by Joni Hand III, MD at OR [facility] Right: Head SYNTHES MAXILLOFACIAL 421.528 / / Plate Y Ti Lo Db 6h 21 421.517 - [id number] Implanted:Qty: 1 on 08/20/2021 by Joni Hand III, MD at OR [facility] Right: Head SYNTHES MAXILLOFACIAL 421.517 / / Screw Ti Lo Pro Sd 4mm 400.834 - [id number] Implanted:Qty: 10 on 08/20/2021 by Joni Hand III, MD at OR [facility] Right: Head SYNTHES MAXILLOFACIAL 400.834 / / Cement Hydroset Injectable [facility] - [id number] Implanted:Qty: 1 on 03/03/2024 by Joni Hand III, MD at OR [facility] Left: Head SUZANNA [id number] 09/19/2025 [id number] / / [id number] Cover Bur Hol Ti Lo 17 421.527 - [id number] Implanted:Qty: 1 on 03/03/2024 by Joni Hand III, MD at OR [facility] Left: Head SYNTHES MAXILLOFACIAL 421.527 / / Plate Ti Lo Pro Str 2h 421.502 - [id number] Implanted:Qty: 2 on 03/03/2024 by Joni Hand III, MD at OR [facility] Left: Head SYNTHES MAXILLOFACIAL 421.502 / / Screw 4mm Ti Low Pro Sdrill - [id number] Implanted:Qty: 7 on 03/03/2024 by Joni Hand III, MD at OR [facility] Left: Head SYNTHES MAXILLOFACIAL 400.834E / / [...] and were consensually agreed upon. Care Teams Chocolate Coater Relationship Specialty Start Date End Date Martin Solorio MD [address] [facility] [place] [address] PCP - General Family Medicine 02/20/21 documented as of this encounter
--- OUTSIDE RECORDS SUMMARY | 2024-07-06 15:54 | External Medical Summary | Summary of Care ---
Author Name Unknown Organization [facility] Address [address] [place] [address] Phone [phone] Care Team Providers Care Head Cook Name Role Phone Martin Solorio MD Primary Care Provider [phone] Encounter Details Date Type Department Care Team (Late st Contact Info) Description 06/08/2024 10:00 AM EST Scheduled Telephone Care Coordination and Integration [address] [place] [address] Kori Quezada, Community Health Roofer Helper Vinyl Coating [address], [place] [phone] Allergies Active Allergy Reactions Criticality Noted Date [...] 5 05/04/20 24 Active Vitamin D (Ergocalciferol) 03328 UNIT Oral Capsule Take 50,000 Units by [...] region 09/30/2023 Coronary artery disease invo lving [place] coronary artery of [place] heart without angina pectoris 09/30/2023 Pulmonary nodules [...] on file Not on file 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 Not on file Not on file Not [...] ольга Jones RN documented in this encounter Progress Notes * Kori Quezada Community [facility] Roofer [employer] - 06/08/2024 11:20 AM EST Telemedicine visit: No Community Health Roofer Helper Vinyl Coating (SOREN) documentation: CHW outbound call [facility] Left message and included CHW phone number Kori Quezada [facility] Community Health Worker Call or Text- [phone] documented in this encounter Plan of Treatment Upcoming Encounters Date Type Department Care Team (Late st Contact Info) Description 06/15/2024 8:15 AM EST Scheduled Telephone Care Coordination and Integration [address] [place] [address] Kori Quezada, Community Health Roofer Helper Vinyl Coating [address] [place] [address] 07/05/2024 9:45 AM EST Office Visit Neurosurgery, [place] [address] [place] [address] Clinic, Brain Tumor Multidisciplinary [address] [place] [address] 07/13/2024 9:15 AM EST Office Visit Hematology/Oncology [facility] Lillie [place] 200 [facility] [place] [phone] Benja [place] MD 200 [facility] [address] 08/02/2024 8:20 AM EST Office Visit Family [facility] [address] [place] [address] Martin Solorio MD [address] [place] [address] 10/05/2024 12:30 PM EDT Telemedicine Care at Home [address] [place] [address] Kori Dumont PA-C [address] [place] [address] 02/14/2025 8:00 AM EDT Imaging Radiology [facility] [address] [place] [address] Scheduled Procedures Name Priority Associated Diagnoses Date/Ti [...] 09/30/2023 DISCUSS TOBACCO CESSATION (REFER TO SMARTSET #7147) 01/28/2025 01/29/2024 TSH 01/28/2025 01/29/2024, 07/21, 07/25/2023, [...] this encounter Medical Devices Implanted Type Area Title Curative Specialist Device Identifier Shelf Expiration Date Model / Serial / Lot Cover Nilda Hole 24mm 421.528 - [id number] Implanted:Qty: 1 on 08/20/2021 by Joni Hand III, MD at OR [facility] Right: Head SYNTHES MAXILLOFACIAL 421.528 / / Plate Y Ti Lo Db 6h 21 421.517 - [id number] Implanted:Qty: 1 on 08/20/2021 by Joni Hand III, MD at OR [facility] Right: Head SYNTHES MAXILLOFACIAL 421.517 / / Screw Ti Lo Pro Sd 4mm 400.834 - [id number] Implanted:Qty: 10 on 08/20/2021 by Joni Hand III, MD at OR [facility] Right: Head SYNTHES MAXILLOFACIAL 400.834 / / Cement Hydroset Injectable 5cc - [id number] Implanted:Qty: 1 on 03/03/2024 by Joni Hand III, MD at OR [facility] Left: Head SUZANNA [id number] 09/19/2025 [id number] / / [id number] Cover Bur Hol Ti Lo 17 421.527 - [id number] Implanted:Qty: 1 on 03/03/2024 by Joni Hand III, MD at OR [facility] Left: Head SYNTHES MAXILLOFACIAL 421.527 / / Plate Ti Lo Pro Str 2h 421.502 - [id number] Implanted:Qty: 2 on 03/03/2024 by Joni Hand III, MD at OR [facility] Left: Head SYNTHES MAXILLOFACIAL 421.502 / / Screw 4mm Ti Low Pro Sdrill - [id number] Implanted:Qty: 7 on 03/03/2024 by Joni Hand III, MD at OR [facility] Left: Head SYNTHES MAXILLOFACIAL 400.834E [...] and were consensually agreed upon. Care Teams Head Cook Relationship Specialty Start Date End Date Martin Solorio MD [address] [place] [address] PCP - General Family Medicine 02/20/21 documented as of this encounter
--- OUTSIDE RECORDS SUMMARY | 2024-07-06 15:54 | External Medical Summary | Summary of Care ---
Author Name Unknown Organization [facility] Address [address] [place] [address] Phone [phone] Care Team Providers Care P D Driver Name Role Phone Martin Solorio MD Primary Care Provider Reason for Visit * Reason Comments eRx-Medication Refill Encounter Details Date Type Department Care Team (Late st Contact Info) Description 06/13/2024 Refill [facility] [address] [place] [phone] Martin Solorio MD [address] [place] [phone] Allergies Active Allergy Reactions Criticality Noted Date [...] 5 05/04/20 24 Active Vitamin D (Ergocalciferol) 01700 UNIT Oral Capsule Take 50,000 Units by [...] region 09/30/2023 Coronary artery disease invo lving [place] coronary artery of [place] heart without angina pectoris 09/30/2023 Pulmonary nodules [...] Telephone Encounter - Nereyda Chen, [facility] - 06/15/2024 1:36 PM EST Refused Prescriptions: Disp Refills Levothyroxine Sodium 200 MCG Oral Tablet 90 Tab*0 Sig: TAKE 1 TABLET BY MOUTH IN THE MORNING AT LEAST 30 MIN PRIOR TO BREAKFAST OR OTHER MEDSRefused By: NEREYDA CHENason for Refusal: Dose needs clarification documented in this encounter Plan of Treatment Upcoming Encounters Date Type Department Care Team (Late st Contact Info) Description 07/05/2024 9:45 AM EST Office Visit Neurosurgery, [place] [address] [place] [address] Clinic, Brain Tumor Multidisciplinary [address] [place] [address] 07/13/2024 9:15 AM EST Office Visit Hematology/Oncology [facility] 200 [facility] [place] [phone] Benja [place] MD [address] [place] [address] 08/02/2024 8:20 AM EST Office Visit [facility] [address] [place] [address] Martin Solorio MD [address] [place] [address] 08/10/2024 9:45 AM EST Pharmacy Pharmacy Hematology Oncology [facility] [address] [place] [address] [facility] Hem/Onc [address] [place] [address] 10/05/2024 12:30 PM EDT Telemedicine Care at Home [address] [place] [address] Kori Dumont PA-C [address] [place] [address] 02/14/2025 8:00 AM EDT Imaging Radiology [address], [place] [address] [place] [address] Scheduled Procedures Name Priority Associated Diagnoses Date/Ti [...] this encounter Medical Devices Implanted Type Area Metal Inspector Device Identifier Shelf Expiration Date Model / Serial / Lot Cover [place] Hole 24mm 421.528 - [id number] Implanted:Qty: 1 on 08/20/2021 by Joni Hand III, MD at [place] [facility] Right: Head SYNTHES MAXILLOFACIAL 421.528 / / Plate Y Ti Lo Db 6h 21 421.517 - [id number] Implanted:Qty: 1 on 08/20/2021 by Joni Hand III, MD at OR [facility] Right: Head SYNTHES MAXILLOFACIAL 421.517 / / Screw Ti Lo Pro Sd 4mm 400.834 - [id number] Implanted:Qty: 10 on 08/20/2021 by Joni Hand III, MD at OR [facility] Right: Head SYNTHES MAXILLOFACIAL 400.834 / / Cement Hydroset Injectable 5cc - [id number] Implanted:Qty: 1 on 03/03/2024 by Joni Hand III, MD at OR [facility] Left: Head SUZANNA [id number] 09/19/2025 [id number] / / [id number] Cover Bur Hol Ti Lo 17 421.527 - [id number] Implanted:Qty: 1 on 03/03/2024 by Joni Hand III, MD at OR [facility] Left: Head SYNTHES MAXILLOFACIAL 421.527 / / Plate Ti Lo Pro Str 2h 421.502 - [id number] Implanted:Qty: 2 on 03/03/2024 by Joni Hand III, MD at [place] [facility] Left: Head SYNTHES MAXILLOFACIAL 421.502 / / Screw 4mm Ti Low Pro Sdrill - [id number] Implanted:Qty: 7 on 03/03/2024 by Joni Hand III, MD at [facility] Left: Head SYNTHES MAXILLOFACIAL 400.834E / / [...] and were consensually agreed upon. Care Teams P D Driver Relationship Specialty Start Date End Date Martin Solorio MD [address] [facility] [place] [address] PCP - General Family Medicine 02/20/21 documented as of this encounter
--- OUTSIDE RECORDS SUMMARY | 2024-07-06 15:54 | External Medical Summary | Summary of Care ---
Author Name Unknown Organization [facility] Address [address] [place] [address] Phone [phone] Care Team Providers Care Parts Casting Machine Operator Name Role Phone Martin Solorio MD Primary Care Provider [phone] Encounter Details Date Type Department Care Team (Late st Contact Info) Description 06/10/2024 8:00 AM EST Scheduled Telephone Care Coordination and Integration [address] [place] [address] Kori Quezada, Community Health Channel Marketing Manager [address] [place], [place] [phone] Allergies Active Allergy Reactions Criticality Noted Date Comments Erythromycin 08/15/1997 seizures documented as of this encounter (statuses as of 06/10/2024) Medications MULTIVITAMINS PO TABS Take 1 Tablet [...] 5 05/04/20 24 Active Vitamin D (Ergocalciferol) 48400 UNIT Oral Capsule Take 50,000 Units by [...] as of this encounter (statuses as of 06/10/2024) Active Problems Problem Noted Date Diagnosed Date [...] as of this encounter (statuses as of 06/10/2024) Resolved Problems Problem Noted Date Diagnosed Date [...] as of this encounter (statuses as of 06/10/2024) Immunizations Name Administration Dates Next Due COVID-19, [...] on file Not on file Not on program arranger Not on file Not on file Not [...] Progress Notes * Kori Quezada, Community Health Channel Marketing Manager - 06/10/2024 9:06 AM EST Telemedicine visit: No Community Health Channel Marketing Manager (SOREN) documentation: CHW outbound call Per CM Tried both numbers listed [facility] Left voicemail on both phones to call Luis Alberto Daniels CM, included phone number Kori Damien [facility] Community Health Worker Call or Text- [phone] documented in this encounter Plan of Treatment Upcoming Encounters Date Type Department Care Team (Late st Contact Info) Description 06/15/2024 8:15 AM EST Scheduled Telephone Care Coordination and Integration [address] [place] [address] Kori Quezada, Community Health Channel Marketing Manager [address] [place] [address] 07/05/2024 9:45 AM EST Office Visit Neurosurgery, [place] [address] [place] [address] Clinic, Brain Tumor Multidisciplinary [address] [place] [address] 07/13/2024 9:15 AM EST Office Visit Hematology/Oncology [facility] [place] 200 [facility] [place] [phone] Benja Watkins MD 200 [facility] [place] [address] 08/02/2024 8:20 AM EST Office Visit [facility] [address] [place] [phone] Martin Solorio MD [address] [place] [address] 08/10/2024 9:45 AM EST Pharmacy [facility] [address] [place] [address] [facility] Hem/Onc [facility] [place] [address] 10/05/2024 12:30 PM EDT Telemedicine Care at Home [facility] [place] [address] Kori Dumont PA-C [address] [place] [address] 02/14/2025 8:00 AM EDT Imaging Radiology [address], [place] 132 [facility] [place] [address] Scheduled Procedures Name Priority Associated Diagnoses Date/Ti [...] this encounter Medical Devices Implanted Type Area Wildlife Biology Technician Device Identifier Shelf Expiration Date Model / Serial / Lot Cover Lotus Hole 24mm 421.528 - [id number] Implanted:Qty: 1 on 08/20/2021 by Joni Hand III, [place] [facility] Right: Head SYNTHES MAXILLOFACIAL 421.528 / / Plate Y Ti Lo Db 6h 21 421.517 - [id number] Implanted:Qty: 1 on 08/20/2021 by Joni Hand III, [place] [facility] Right: Head SYNTHES MAXILLOFACIAL 421.517 / / Screw Ti Lo Pro Sd 4mm 400.834 - [id number] Implanted:Qty: 10 on 08/20/2021 by Joni Hand III, [place] [facility] Right: Head SYNTHES MAXILLOFACIAL 400.834 / / Cement Hydroset Injectable 5cc - [id number] Implanted:Qty: 1 on 03/03/2024 by Joni Hand III, [place] [facility] Left: Head SUZANNA [id number] 09/19/2025 [id number] / / [id number] Cover Bur Hol Ti Lo 17 421.527 - [id number] Implanted:Qty: 1 on 03/03/2024 by Joni Hand III, [place] [facility] Left: Head SYNTHES MAXILLOFACIAL 421.527 / / Plate Ti Lo Pro Str 2h 421.502 - [id number] Implanted:Qty: 2 on 03/03/2024 by Joni Hand III, [place] [facility] Left: Head SYNTHES MAXILLOFACIAL 421.502 / / Screw 4mm Ti Low Pro Sdrill - [id number] Implanted:Qty: 7 on 03/03/2024 by Joni Hand III, [place] [facility] Left: Head SYNTHES MAXILLOFACIAL 400.834E / / [...] and were consensually agreed upon. Care Teams Parts Casting Machine Operator Relationship Specialty Start Date End Date Martin Solorio MD [address] [place] [address] PCP - General Family Medicine 02/20/21 documented as of this encounter
--- OUTSIDE RECORDS SUMMARY | 2024-07-06 15:55 | External Medical Summary | Summary of Care ---
Author Name Unknown Organization [facility] Address [address] [place] [address] Phone [phone] Care Team Providers Care Trust Advisor Name Role Phone Martin Solorio MD Primary Care Provider [phone] Reason for Visit * Reason Onset Date Comments Hospital Follow-Up Patient is he re today for a hospital follow up. Patient states she is unable to get into her bed at home so she has been sleeping on the couch which is causing her discomfort in her hips. Patient would like to discuss another prescription for pain medication. 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 0 09/10/19 08 Active traZODone HCl 100 MG Oral Tablet (Desyrel)Indicat ions:Insomnia, unspecified type TAKE 1 & 1/2 (ONE & ONE-HALF) TABLETS BY MOUTH AT BEDTIME 45 Tablet 5 05/06/20 23 Active Losartan Potassium 50 MG Oral Tablet (Cozaar)Indicati ons:HTN, goal below 130/80 Take 1 Tablet by mouth in the morning. 90 Tablet 3 07/31/19 24 Active Atorvastatin Calcium 20 MG Oral Tablet (Lipitor)Indicat ions:Dyslipidemi a Take 1 Tablet by mouth every evening. 90 Tablet 3 07/31/19 24 Active Triamcinolone Acetonide 0.1 % External Cream (Aristocort) Apply topically to affected area 2 times a day. To affected area. 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 60 Tablet 5 04/19/20 24 Active Trametinib Dimethyl Sulfoxide 0.5 MG Oral Tablet (Mekinist)Indica tions:Malignant melanoma of left lower extremity (HCC) Take 3 tablets (1.5mg) by mouth in the morning. 90 Tablet 5 4 5:10 PM EST 05/04/20 Active Dabrafenib Mesylate 75 MG Oral Capsule (Tafinlar) Take 1 Capsule by mouth in the morning and 1 Capsule before bedtime. 60 Capsule 5 05/04/20 24 Active Vitamin D (Ergocalciferol) 82278 UNIT Oral Capsule Take 50,000 Units by mouth once a week. For 8 weeks 8 Capsule 05/19/20 Active Acetaminophen 325 MG Oral Tablet (Tylenol) Take 2 Tablets by mouth. 04/27/20 24 Active oxyCODONE HCl 5 MG Oral Tablet (Oxy IR) Take 1 Tablet by mouth. 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 30 Tablet 06/02/20 24 024 Discontin ued(Refil l) documented as of this encounter (statuses as of 06/07/2024) Active Problems Problem Noted Date Diagnosed Date History of stroke 06/04/2024 Overview (06/04/2024): 08/22/23 MRI "There is a chronic lacunar infarction within the left thalamus." Cerebral atrophy 09/30/2023 Spinal stenosis of cervical region 09/30/2023 Coronary artery disease invo lving north fork coronary artery of north fork heart without angina pectoris 09/30/2023 Pulmonary nodules [...] as of this encounter (statuses as of 06/07/2024) Resolved Problems Problem Noted Date Diagnosed Date [...] as of this encounter (statuses as of 06/07/2024) Immunizations Name Administration Dates Next Due COVID-19, [...] file Not on file Not on file conversion operator Not on file Not on file Not on file documented as of this encounter Last Filed Vital Signs Vital Sign Reading Time Taken Comments Blood Pressure 136/84 06/07/2024 11:49 AM EST Pulse 76 06/07/2024 11:49 AM EST Temperature 36.2 C (97.2 F) 06/07/2024 11:[address] Respiratory Rate 16 06/07/2024 11:49 AM EST Oxygen Saturation 98% 06/07/2024 11:49 AM EST Inhaled Oxygen Concentration - - Weight 54.4 kg (120 lb) 06/07/2024 11:49 AM EST Height 157.5 cm (5' 2") 06/07/2024 11:49 AM EST Body Mass Index 21.95 06/07/2024 11:49 AM EST documented in this encounter Functional Status * Are you deaf or do you have serious difficulty hearing? Answer Date of Assessment Author No 03/01/2024 1:15 PM EDT Do ольга Kumar RN * Are you blind or do you have serious difficulty seeing, even when wearing glasses? Answer Date of Assessment Author No 03/01/2024 1:15 PM Do ольга Connell RN * Do you have serious difficulty [...] Progress Notes * Martin Solorio MD - 06/07/2024 11:55 AM EST Subjective: Judy Garcia is a 64 year old female. Chief Complaint Patient presents with Hospital Follow-Up Patient is here today for a hospital follow up. Patient states she is unable to get into her bed at home so she has been sleeping on the couch which is causing her discomfort in her hips. Patient would like to discuss another prescription for pain medication. HPI: 64-year-old is seen today in follow-up for both [facility] hospital admission from April 11 to April 28, 2024 and then transferred admission to [facility] half-way facility 07/29/23-05/14/24 She has been at home since. Unfortunately she had a fall and suffered a left pelvic fracture April 11. She was seen by Orthopedics (Dr. Pollard) who noted that the pelvic fracture appeared to be stable. He felt that she could bear weight in could ambulate as pain level was tolerable. She has continued to have pain which is centered in the left posterior pelvic area. It is worse when she tries to get up from the couch or wheelchair. She walks a little bit with a walker. She does have phy sical therapy provided by [facility] home health but Um told that this is pretty minimal. She has been using Tylenol. She had oxycodone but was avoid using it in part because she did not want to get hooked on it but also in part because when she takes the oxycodone she just sleeps. So she has gotten some oxycodone- about 1 tablet every couple of days when the pain gets really bad. I started her about 5 days ago on tramadol which she is taking 1 tablet twice a day. She has not found that to help much more than plain Tylenol. She is not bothered with constipation. At times her pain is not just localized to the posterior pelvic area but it does radiate down the back of her upper leg to as far as the popliteal area This is all on top of her known metastatic malignant melanoma with brain Mets. She did finish her radiation therapy to the brain while she was at [facility]. She now is on immunologic therapy as being prescribed by Dr. Watkins. She has had some cognitive impairment especially with short-term memory being affected. That was present when I saw her before she was hospitalized. Some of that cognitive impairment maybe related (in probably is related) to the radiation that she had but she now is finished with that. Patient Active Problem List Diagnosis Adjustment disorder [...] brain (HCC) Brain lesion Cerebral atrophy (HCC) Spinal stenosis of cervical region Coronary artery disease involving north fork coronary artery of north fork heart without angina pectoris Pulmonary nodules Centrilobular emphysema (HCC) Left atrial enlargement Mild mitral regurgitation Mild tricuspid regurgitation Mild pulmonary valve regurgitation History of stroke Current Outpatient Medications Medication Sig Dispense Refill [...] by mouth every evening. 90 Tablet 3 Triamcinolone Acetonide 0.1 % External Cream (Aristocort) Apply topically to affected area 2 times a day. To affected area. 80 g 5 carBAMazepine ER 200 MG Oral Tablet Extended Release 12 Hour (Tegretol-Xr) TAKE 2 TABLETS BY MOUTH IN THE MORNING AND 2 IN THE EVENING LORazepam 0.5 MG Oral Tablet (Ativan) Levothyroxine [...] bedtime. Famotidine 20 MG Oral Tablet (Pepcid) PARoxetine HCl 40 MG Oral Tablet (pAXil) TAKE 1 TABLET BY MOUTH IN THE MORNING 90 Tablet 3 Ondansetron HCl 8 MG Oral Tablet (Zofran) TAKE 1 TABLET BY MOUTH TWICE DAILY 30 MINUTES PRIOR TO ADMINISTRATION OF TAFINLAR. 60 Tablet 5 Trametinib Dimethyl Sulfoxide 0.5 MG Oral Tablet (Mekinist) Take 3 tablets (1.5mg) by mouth in the morning. 90 Tablet 5 Dabrafenib Mesylate 75 MG Oral Capsule (Tafinlar) Take 1 Capsule by mouth in the morning and 1 Capsule before bedtime. 60 Capsule 5 Vitamin D (Ergocalciferol) 40070 UNIT Oral Capsule Take 50,000 Units by mouth once a week. For 8 weeks 8 Capsule 0 Acetaminophen 325 MG Oral Tablet (Tylenol) Take 2 Tablets by mouth. oxyCODONE HCl 5 MG Oral Tablet (Oxy IR) Take 1 Tablet by mouth. traMADol HCl 50 MG Oral Tablet (Ultram) Take 1 Tablet by mouth 3 times a day as needed for Pain, Moderate. 60 Tablet 0 No current facility-administered medications for this visit. Review of patient's allergies indicates: Allergen Reactions Erythromycin seizures Objective: BP 136/84 (BP Site: Left Arm, BP Position: Sitting, BP Cuff Size: Regular) | Pulse 76 | Temp 36.2 C (97.2 F) (Tympanic) | Resp 16 | Ht 1.575 m (5' 2") | Wt 54.4 kg (120 lb) | SpO2 98% | BMI 21.95kg/m | BSA 1.54 m Physical Exam: CONST: alert, pleasant, no acute distress but clearly uncomfortable in the wheelchair as she is Um moving around because of discomfort. She did stand up for me and she took a couple of steps but thenfelt that she needed sit back down again. Pain is definitely worse standing and weight-bearing HEAD: normocephalic, atraumatic Eyes - PERRLA, EOM'I OROPHARYNX: clear, no swelling or erythema, moist CV: regular rate and rhythm, no murmur CHEST: clear to auscultation bilaterally, no rales or wheezing ABD: soft, non tender, non distended, no masses or hepatosplenomegaly MENTAL STATUS: no evidence of thought disorder, no delusional thought, no evidence of paranoia, thought is non-tangential. 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 We do not have adequate pain relief at this point. Increase tramadol to 3 times a day on a regular basis. I suggested acetaminophen 500 mg every time she uses the trama dol. I did send a new prescription for the tramadol to [facility] with new instructions that she use this 3 times a day as needed - traMADol HCl 50 MG Oral Tablet (Ultram); Take 1 Tablet by mouth 3 times a day as needed for Pain,Moderate. I asked her to get back in touch with me in about a month's time for report on how she is doing. If the pain is not improved significantly, then we need to have her see Orthopedics and this is as suggested by Dr. Pollard when he evaluated her initially immediately after the injury. He indicated the need for orthopedic consultation in 12 weeks' time if pain not markedly improved. Metastatic malignant melanoma-continue follow with Dr. Watkins with immunotherapy. History of seizure disorder-continue the Tegretol 200 mg 2 tablets twice a day I see her again August 02 2024. Time: I spent a total of 30-39 minutes (exact time 35 mins) on the date of service in preparation, delivery, and documentation of the care provided excluding any time spent in the performance of separatelybilled services. Martin Solorio MD documented in this encounter Nursing Notes * Iveth Hopkins LPN - 06/07/2024 11:53 AM EST The patient has been properly identified by confirmation of name and date of . Chief Complaint Patient presents with Hospital Follow-Up Patient is here today for a hospital follow up. Patient states she is unable to get into her bed at home so she has been sleeping on the couch which is causing her discomfort in her hips. Patient would like to discuss another prescription for pain medication. documented in this encounter Plan of Treatment Upcoming Encounters Date Type Department Care Team (Late st Contact Info) Description 06/08/2024 9:45 AM EST Pharmacy Pharmacy Hematology Oncology [address] [address] [facility], [facility] Hem/Onc [address] [place] [address] 06/08/2024 10:00 AM EST Scheduled Telephone Care Coordination and Integration [address] [place] [address] Kori Quezada, Community Health Lace Winder [address] [place] [address] 06/15/2024 8:15 AM EST Scheduled Telephone Care Coordination and Integration [address] [place] [address] Kori Quezada, Community Health Lace Winder [address] [place] [address] 07/05/2024 9:45 AM EST Office Visit Neurosurgery, [address] [address] Clinic, Brain Tumor Multidisciplinary [address] [place] [address] 07/13/2024 9:15 AM EST Office Visit Hematology/Oncology [facility] [place] [address] [place] [address] Benja Watkins MD [address] [place] [address] 08/02/2024 8:20 AM EST Office Visit [facility] [address] [place] [address] Martin Solorio MD [address] [place] [address] 10/05/2024 12:30 PM EDT Telemedicine Care at Home [address] [place] [address] Kori Dumont PA-C [address] [place] [address] 02/14/2025 8:00 AM EDT Imaging Radiology [facility]st [facility] [place] [address] [place] [address] Scheduled Procedures Name Priority Associated Diagnoses Date/Ti [...] 09/30/2023 DISCUSS TOBACCO CESSATION (REFER TO SMARTSET #7708) 01/28/2025 01/29/2024 TSH 01/28/2025 01/29/2024, 07/21, 07/25/2023, [...] this encounter Medical Devices Implanted Type Area Weave Room Supervisor Device Identifier Shelf Expiration Date Model / Serial / Lot Cover Nilda Hole 24mm 421.522 - [id number] Implanted:Qty: 1 on 08/20/2021 by Joni Hand III, MD at OR [facility] Right: Head SYNTHES MAXILLOFACIAL 421.528 / / Plate Y Ti Lo Db 6h 21 421.062 - [id number] Implanted:Qty: 1 on 08/20/2021 by Joni Hand III, MD at OR [facility] Right: Head SYNTHES MAXILLOFACIAL 421.517 / / Screw Ti Lo Pro Sd 4mm 400.834 - [id number] Implanted:Qty: 10 on 08/20/2021 by Joni Hand III, MD at OR [facility] Right: Head SYNTHES MAXILLOFACIAL 400.834 / / Cement Hydroset Injectable 5cc - [id number] Implanted:Qty: 1 on 03/03/2024 by Joni Hand III, MD at OR [facility] Left: Head SUZANNA [id number] 09/19/2025 [id number] / / [id number] Cover Bur Hol Ti Lo 17 421.527 - [id number] Implanted:Qty: 1 on 03/03/2024 by Joni Hand III, MD at OR [facility] Left: Head SYNTHES MAXILLOFACIAL 421.527 / / Plate Ti Lo Pro Str 2h 421.502 - [id number] Implanted:Qty: 2 on 03/03/2024 by Joni Hand III, MD at OR [facility] Left: Head SYNTHES MAXILLOFACIAL 421.502 / / Screw 4mm Ti Low Pro Sdrill - [id number] Implanted:Qty: 7 on 03/03/2024 by Joni Hand III, MD at OR [facility] Left: Head SYNTHES MAXILLOFACIAL 400.834E / / documented as of this encounter Visit Diagnoses Diagnosis Hospital discharge follow-up- Primary Other follow-up examination 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 Care Teams Trust Advisor Relationship Specialty Start Date End Date Martin Solorio MD [address] [facility] [place] [address] PCP - General Family Medicine 02/20/21 documented as of this encounter
--- OUTSIDE RECORDS SUMMARY | 2024-07-06 15:55 | External Medical Summary | Summary of Care ---
Author Name Unknown Organization [facility] Address [address] [place] [address] Phone [phone] Care Team Providers Care Warehouse Inventory Clerk Name Role Phone Martin Solorio MD Primary Care Provider Reason for Visit * Reason Onset Date Comments Forms Request 06/02/2024 [employer] Encounter Details Date Type Department Care Team (Late st Contact Info) Description 06/02/2024 Telephone Hematology/Oncology [facility] [address] [place] [phone] Benja Watkins MD [address] [place] [address] Forms Request ([employer]Pal) Allergies Active Allergy Reactions Criticality Noted Date Comments Erythromycin 08/15/1997 seizures documented as of this encounter (statuses as of 06/02/2024) Medications MULTIVITAMINS PO TABS Take 1 Tablet [...] 5 05/04/20 24 Active Vitamin D (Ergocalciferol) 17530 UNIT Oral Capsule Take 50,000 Units by mouth once a week. For 8 weeks 8 Capsule 05/19/20 24 Active documented as of this encounter (statuses as of 06/02/2024) Active Problems Problem Noted Date Diagnosed Date [...] as of this encounter (statuses as of 06/02/2024) Resolved Problems Problem Noted Date Diagnosed Date [...] as of this encounter (statuses as of 06/02/2024) Immunizations Name Administration Dates Next Due COVID-19, [...] 03/11/2024 Does the household have a re lar [...] on file Not on file Not on cut filer Not on file Not on file Not [...] ольга Kumar RN * Do you have serious difficulty [...] Telephone Encounter - Malou Mejía LPN - 06/02/2024 12:28 PM EST 12:19 pm: Called and spoke with both patient and her , Kwame via speaker phone. Made them aware the [facility] form has been completed, faxed, and scanned into her chart. Both verbalized understanding and are requesting the form be mailed back to her at the address on file. Per patient and 's request scheduled patient for a return appointment with Dr. Watkins on 07/13/2024 at 9:15 am. Patient denies any questions or further needs at this time. [facility] form placed in outgoing mail to patient's address on file. Called and spoke with Jordan at [facility] [employer] to provided updated return visit with Dr. Watkins on 07/13/2024 at 9:15 am, she repeated back information and denies any questions, will make the case specialist aware. * Telephone Encounter - Malou Mejía LPN - 06/02/2024 8:36 AM EST Fax received from Alvina Hernandez, from [facility] [employer]; Form completed, requested documentation printed. Form awaiting MD signature. documented in this encounter Plan of Treatment Upcoming Encounters Date Type Department Care Team (Late st Contact Info) Description 06/07/2024 11:20 AM EST Office Visit [facility] [address] [place] [phone] Martin Solorio MD [address] [place] [address] 06/08/2024 9:45 AM EST Pharmacy Pharmacy Hematology Oncology [facility] [address] [place] [address] [facility], [facility] Hem/Onc [address] [place] [address] 06/08/2024 10:00 AM EST Scheduled Telephone Care Coordination and Integration [facility] [place] [place] [address] Kori Quezada, Community Health Fire Production Operator [facility] [place] [address] 06/15/2024 8:15 AM EST Scheduled Telephone Care Coordination and Integration [address] [place] [address] Kori Quezada, Community Health Fire Production Operator [address] [place] [address] 07/05/2024 9:45 AM EST Office Visit Neurosurgery, [place] [address] [place] [address] Clinic, Brain Tumor Multidisciplinary [address] [place] [address] 07/13/2024 9:15 AM EST Office Visit Hematology/Oncology [facility] [place] [address] [place], [place] [phone] Benja Watkins MD [address] [place] [address] 08/02/2024 8:20 AM EST Office Visit [facility] [address] [facility] [place] [address] Martin Solorio MD [address] [place] [address] 10/05/2024 12:30 PM EDT Telemedicine Care at Home [address] [place] [address] Kori Dumont PA-C [address] [place] [address] 02/14/2025 8:00 AM EDT Imaging Radiology [facility]st [facility] [place] [address] [facility] [place] [address] Scheduled Procedures Name Priority Associated Diagnoses Date/Ti me COLONOSCOPY FLEXIBLE PROXIMA L DIAGNOSTIC Recall Family history of colon cancer Health Maintenance Due Date Last Done Comments Alpha-1 Antitrypsin 1976 Cologuard 2003 Fecal Occult Blood Test 2003 Sigmoidoscopy 2003 COVID-19 Vaccine ( season) 2024 06/26/2023, 06/26/2023, 12/14/2021, Additional history exists Influenza Vaccine (FLU shot) [...] 09/30/2023 DISCUSS TOBACCO CESSATION (REFER TO SMARTSET #3199) 01/28/2025 01/29/2024 TSH 01/28/2025 01/29/2024, 07/21, 07/25/2023, [...] this encounter Medical Devices Implanted Type Area Air And Water Tester Device Identifier Shelf Expiration Date Model / Serial / Lot Cover Mazama Hole 24mm 421.528 - [id number] Implanted:Qty: 1 on 08/20/2021 by Joni Hand III, MD at [place] [facility] Right: Head SYNTHES MAXILLOFACIAL 421.528 / / Plate Y Ti Lo Db 6h 21 421.517 - [id number] Implanted:Qty: 1 on 08/20/2021 by Joni Hand III, MD at [place] [facility] Right: Head SYNTHES MAXILLOFACIAL 421.517 / / Screw Ti Lo Pro Sd 4mm 400.834 - [id number] Implanted:Qty: 10 on 08/20/2021 by Joni Hand III, MD at [place] [facility] Right: Head SYNTHES MAXILLOFACIAL 400.834 / / Cement Hydroset Injectable 5cc - [id number] Implanted:Qty: 1 on 03/03/2024 by Joni Hand III, MD at [place] [facility] Left: Head SUZANNA [id number] 09/19/2025 [id number] / / [id number] Cover Bur Hol Ti Lo 17 421.527 - [id number] Implanted:Qty: 1 on 03/03/2024 by Joni Hand III, MD at [place] [facility] Left: Head SYNTHES MAXILLOFACIAL 421.527 / / Plate Ti Lo Pro Str 2h 421.502 - [id number] Implanted:Qty: 2 on 03/03/2024 by Joni Hand III, MD at [place] [facility] Left: Head SYNTHES MAXILLOFACIAL 421.502 / / Screw 4mm Ti Low Pro Sdrill - [id number] Implanted:Qty: 7 on 03/03/2024 by Joni Hand [...] were consensually agreed upon. Care Teams Warehouse Inventory Clerk Relationship Specialty Start Date End Date Martin Solorio MD [address] [facility] [place] [phone] PCP - General Family Medicine 02/20/21 documented as of this encounter
--- OUTSIDE RECORDS SUMMARY | 2024-07-06 15:55 | External Medical Summary | Summary of Care ---
Author Name Unknown Organization [facility] Address [address] [place] [address] Phone [phone] Care Team Providers Care Multi Mission Helicopter Aircrewman Name Role Phone Martin Solorio MD Primary Care Provider Reason for Visit * Reason Onset Date Comments Case Management Plan Of Care 06/01/2024 Adv ice -- uncontrolled pain Encounter Details Date Type Department Care Team (Latest Contact Info) Description 06/01/2024 Librarian Telephone Care Coordination and Integration [address] [place] [address] Malena Quintanilla, RN [address] [place] [id number] Case Management Plan Of Care (Advice -- un... Allergies Active Allergy Reactions Criticality Noted Date [...] 5 05/04/20 24 Active Vitamin D (Ergocalciferol) 19638 UNIT Oral Capsule Take 50,000 Units by mouth once a week. 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 * Telephone Encounter - Martin Solorio MD - 06/01/2024 4:24 PM EST Notify Pt/ : Regarding pain control. She can use Ibuprofen 200mg , 4 tabs every 6 hrs. Or she can alternate Tylenol 500mg, 2 tabs then Ibuprofen 800mg after 4 hrs then keep repeating the alternating med every 4 hrs. The other option is to use a narcotic . Tramadol would be less addictive than Oxycodone or hydrocodone. It could be used every 4-6 hrs. * Telephone Encounter - Malena Quintanilla RN - 06/01/2024 3:37 PM EST 04/11/24 through 04/28/24 [facility], transferred to [facility] S/p unwitnessed fall, now with Left pelvic ring fracture, Ortho consulted, stable fx with no surgical indication, WBAT/ROM AT Expect gradual improvement over 6-12 weeks, however if still painful after 12 weeks, needs ortho f/u 04/28/24 through 05/14/24 [facility], dc to home with home health CM follow up call to [facility] call earlier today -- reported uncontrolled pain and weakness denies any new falls This pain is ever since she came home, and is moving around more at home, whereas at [facility], she just stayed in bed all day. Sitting aggravates it, she has to come up on one side, She is doing more, up walking, and the pain is getting worse along with increased activity, he saysshe seems pretty miserable, the Aleve isn't working anymore and tylenol "doesn't touch it" Pain isn't keeping her awake at night, "her cigarettes are keeping her awake, because she has no short term memory and forgets she already smoked" She came home from [facility] with oxycodone but he does not want her to get addicted so hasn't given her any I discussed giving her one about 30-45 minutes prior to home PT appts, to make therapy more productive for her, however, he really questions using oxy "that much" -- I reassured him that one pill every other week will not make her addicted, but he needs more reassurance PT is supposed to come tomorrow 06/02 and I suggested talking with them about using the oxy prior to therapy PCP appt 06/07 and I made same suggestions would like to know if any thing other than Aleve and tylenol for pain -- will send a note to PCP Perhaps switching from Aleve to Motrin and then alternate every 3 hours with Tylenol (No DM; +CAD and valve disorders, no kidney dz; last BMP was from Feb and was fine) I informed I may not hear from PCP today Pharmacy is [facility] Please advise for pain control thank you. documented in this encounter Plan of Treatment Upcoming Encounters Date Type Department Care Team (Late st Contact Info) Description 06/07/2024 11:20 AM EST Office Visit [facility] [address] [place] [address] Martin Solorio MD [address] [facility] [address] 06/08/2024 9:45 AM EST Pharmacy Pharmacy Hematology Oncology [facility] [place] [address] [place] [address] [facility] Hem/Onc [address] [place] [address] 06/08/2024 10:00 AM EST Scheduled Telephone Care Coordination and Integration [facility] [place] [address] Kori Quezada, Community Health Geospatial Imagery Intelligence Analyst [address] [place] [address] 06/15/2024 8:15 AM EST Scheduled Telephone Care Coordination and Integration [facility] [place] [address] Kori Quezada, [facility] Health Geospatial Imagery Intelligence Analyst [facility] [place] [address] 07/05/2024 9:45 AM EST Office Visit Neurosurgery, [place] [address] [place] [address] Clinic, Brain Tumor Multidisciplinary [address] [place] [address] 08/02/2024 8:20 AM EST Office Visit [address] [address] Martin Solorio MD [address] [place] [address] 10/05/2024 12:30 PM EDT Telemedicine Care at Home [address] [place] [address] Kori Dumont PA-C [address] [place] [address] 02/14/2025 8:00 AM EDT Imaging Radiology [address], [address] [place] [phone] Scheduled Procedures Name Priority Associated Diagnoses Date/Ti [...] 09/30/2023 DISCUSS TOBACCO CESSATION (REFER TO SMARTSET #2487) 01/28/2025 01/29/2024 TSH 01/28/2025 01/29/2024, 07/21, 07/25/2023, [...] encounter Medical Devices Implanted Type Area Delivery Rn Device Identifier Shelf Expiration Date Model / Serial / Lot Cover Nilda Hole 24mm 421.528 - [id number] Implanted:Qty: 1 on 08/20/2021 by Joni Hand III, MD at [place] [facility] Right: Head SYNTHES MAXILLOFACIAL 421.528 / / Plate Y Ti Lo Db 6h 21 421.517 - [id number] Implanted:Qty: 1 on 08/20/2021 by Joni Hand III, MD at [place] [facility] Right: Head SYNTHES MAXILLOFACIAL 421.517 / / Screw Ti Lo Pro Sd 4mm 400.834 - [id number] Implanted:Qty: 10 on 08/20/2021 by Joni Hand III, MD at [place] [facility] Right: Head SYNTHES MAXILLOFACIAL 400.834 / / Cement Hydroset Injectable 5cc - [id number] Implanted:Qty: 1 on 03/03/2024 by Joni Hand III, MD at OR [facility] Left: Head SUZANNA [id number] 09/19/2025 [id number] / / [id number] Cover Bur Hol Ti Lo 17 421.527 - [id number] Implanted:Qty: 1 on 03/03/2024 by Joni Hand III, MD at [place] [facility] Left: Head SYNTHES MAXILLOFACIAL 421.527 / / Plate Ti Lo Pro Str 2h 421.502 - [id number] Implanted:Qty: 2 on 03/03/2024 by Joni Hand III, MD at OR [facility] Left: Head SYNTHES MAXILLOFACIAL 421.502 / / Screw 4mm Ti Low Pro Sdrill - [id number] Implanted:Qty: 7 on 03/03/2024 by Joni Hand III, MD at [facility] Left: Head SYNTHES MAXILLOFACIAL 400.834E / / [...] 6:15 PM 09/23/2021 5:59 PM This order re flects the patients wishes and were consensually agreed upon. Question Answer Comments Discussion of Advance Directives occurred with: Patient * Full Code Date Activated Date Inactivated Comments 08/17/2021 10:44 PM 08/21/2021 6:24 PM This order r eflects the patients wishes and were consensually agreed upon. Care Teams Multi Mission Helicopter Aircrewman Relationship Specialty Start Date End Date Martin Solorio MD [address] [place] [address] PCP - General Family Medicine 02/20/21 documented as of this encounter
--- OUTSIDE RECORDS SUMMARY | 2024-07-06 15:55 | External Medical Summary | Summary of Care ---
Author Name Unknown Organization [facility] Address [address] [place] [address] Phone [phone] Care Team Providers Care Prescription Clerk Lenses Name Role Phone Martin Solorio MD Primary Care Provider [phone] Reason for Visit * Reason Onset Date Comments Case Management Plan Of Care 06/01/2024 Adv ice -- uncontrolled pain Encounter Details Date Type Department Care Team (Latest Contact Info) Description 06/01/2024 Factory Machine Computer Operator Telephone Care Coordination and Integration [address] [place] [address] Malena Quintanilla, RN [address] [place] [address] Case Management Plan Of Care (Advice -- [...] 5 05/04/20 24 Active Vitamin D (Ergocalciferol) 51088 UNIT Oral Capsule Take 50,000 Units by [...] file Not on file Not on profile trimmer Not on file Not on file Not [...] encounter Miscellaneous Notes * Addendum Note - Kendra Leung LPN - 06/02/2024 4:03 PM ESTAddended by: KENDRA LEUNG on: 06/02/2024 04:03 PM Modules accepted: Orders * Telephone Encounter - Kendra Leung LPN - 06/02/2024 4:00 PM EST Kwame calling back in today. He would like tramadol sent into pharmacy for pain. Med pended. Please review * Telephone Encounter - Magdalena Barber LPN [...] every 4-6 hrs. * Telephone Encounter - Dwight, Malena Macias RN - 06/01/2024 3:37 PM EST 04/11/24 through 04/28/24 [facility], transferred to [facility] S/p unwitnessed fall, now with Left pelvic ring fracture, Ortho consulted, stable fx with no surgical indication, WBAT/ROM AT Expect gradual improvement over 6-12 weeks, however if still painful after 12 weeks, needs ortho f/u 04/28/24 through 05/14/24 [facility], dc to home with home health CM follow up call to [facility] call earlier today -- reported uncontrolled pain and weakness denies any new falls This pain is ever since she came home, and is moving around more at home, whereas at [facility], she just stayed in bed all day. [...] she already smoked" She came home from [facility] with oxycodone but he does not want [...] reassurance PT is supposed to come tomorrow Wed06/02 and I suggested talking with them about [...] not hear from PCP today Pharmacy [facility] Please advise for pain control thank you. documented in this encounter Plan of Treatment Upcoming Encounters Date Type Department Care Team (Late st Contact Info) Description 06/07/2024 11:20 AM EST Office Visit [facility] [address] [place] [id number] Martin Solorio MD [address] [place] [address] 06/08/2024 9:45 AM EST Pharmacy Pharmacy Hematology Oncology [address] [address] [facility] Clinic Hem/Onc [address] [place] [address] 06/08/2024 10:00 AM EST Scheduled Telephone Care Coordination and Integration [address] [place] [address] Kori Quezada, Community Health Cover Stitch Machine Operator [address] [place] [address] 06/15/2024 8:15 AM EST Scheduled Telephone Care Coordination and Integration [address] [place] [address] Kori Quezada, Community Health Cover Stitch Machine Operator [address] [place] [address] 07/05/2024 9:45 AM EST Office Visit Neurosurgery, [address] [id number] Clinic, Brain Tumor Multidisciplinary [address] [place] [address] 07/13/2024 9:15 AM EST Office Visit Hematology/Oncology [facility] [place] [address] [place] [address] Benja Watkins MD [address] [place] [address] 08/02/2024 8:20 AM EST Office Visit [facility] [address] [place] [address] Martin Solorio MD [address] [place] [address] 10/05/2024 12:30 PM EDT Telemedicine Care at Home [address] [place] [address] Kori Dumont PA-C [address] [place] [address] 02/14/2025 8:00 AM EDT Imaging Radiology [facility] 1st [facility], [place] [address] [place] [address] Scheduled Procedures Name Priority Associated Diagnoses Date/Ti [...] 09/30/2023 DISCUSS TOBACCO CESSATION (REFER TO SMARTSET #3331) 01/28/2025 01/29/2024 TSH 01/28/2025 01/29/2024, 07/21, 07/25/2023, [...] encounter Medical Devices Implanted Type Area Health Officer Device Identifier Shelf Expiration Date Model / Serial / Lot Cover [place] Hole 24mm 421.525 - [id number] Implanted:Qty: 1 on 08/20/2021 by Joni Hand III, MD at [facility] Right: Head SYNTHES MAXILLOFACIAL 421.528 / / Plate Y Ti Lo Db 6h 21 421.517 - [id number] Implanted:Qty: 1 on 08/20/2021 by Joni Hand III, MD at [place] [facility] Right: Head SYNTHES MAXILLOFACIAL 421.517 / / Screw Ti Lo Pro Sd 4mm 400.834 - [id number] Implanted:Qty: 10 on 08/20/2021 by Joni Hand III, MD at OR [facility] Right: Head SYNTHES MAXILLOFACIAL 400.834 / / Cement Hydroset Injectable 5cc - [id number] Implanted:Qty: 1 on 03/03/2024 by Joni Hand III, MD at OR [facility] Left: Head SUZANNA [id number] 09/19/2025 [id number] / / [id number] Cover Bur Hol Ti Lo 17 421.527 - [id number] Implanted:Qty: 1 on 03/03/2024 by Joni Hand III, MD at [place] [facility] Left: Head SYNTHES MAXILLOFACIAL 421.527 / / Plate Ti Lo Pro Str 2h 421.502 - [id number] Implanted:Qty: 2 on 03/03/2024 by Joni Hand III, MD at [place] [facility] Left: Head SYNTHES MAXILLOFACIAL 421.502 / / Screw 4mm Ti Low Pro Sdrill - [id number] Implanted:Qty: 7 on 03/03/2024 by Joni Hand III, MD at [place] [facility] Left: Head SYNTHES [...] and were consensually agreed upon. Care Teams Prescription Clerk Lenses Relationship Specialty Start Date End Date Martin Solorio MD [address] [place] [address] PCP - General Family Medicine 02/20/21 documented as of this encounter
--- OUTSIDE RECORDS SUMMARY | 2024-07-06 15:55 | External Medical Summary | Summary of Care ---
Author Name Unknown Organization [facility] Address [address] [place] [address] Phone [phone] Care Team Providers Care Drop Machine Operator Name Role Phone Baldev Solorio MD Primary Care Provider Reason for Visit * Reason Onset Date Comments Case Management Plan Of Care 06/01/2024 Adv ice -- uncontrolled pain Encounter Details Date Type Department Care Team (Latest Contact Info) Description 06/01/2024 Pharmacy Tech Telephone Care Coordination and Integration [address] [place] [address] Malena Quintanilla, RN [address] [place] [address] Case Management Plan Of Care (Advice -- [...] 5 05/04/20 24 Active Vitamin D (Ergocalciferol) 88041 UNIT Oral Capsule Take 50,000 Units by mouth once a week. 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 Answer Date of Assessment Author No 03/01/2024 1:15 PM Do ольга Connell RN * Are you blind or do [...] Addendum Note - Baldev Solorio MD - 06/02/2024 5:23 PM ESTAddended by: BALDEV SOLORIO on: 06/02/2024 05:23 PM Modules accepted: Orders * Addendum Note - Kendra Leung LPN [...] return our call. * Telephone Encounter - Baldev Solorio MD - 06/01/2024 4:24 PM EST [...] 06/01/2024 3:37 PM EST 04/11/24 through 04/28/24 [facility], transferred to [facility] S/p unwitnessed fall, now with Left pelvic ring fracture, Ortho consulted, stable fx with no surgical indication, WBAT/ROM AT Expect gradual improvement over 6-12 weeks, however if still painful after 12 weeks, needs ortho f/u 04/28/24 through 05/14/24 [facility], dc to home with home health CM follow up call to [facility] call earlier today -- reported uncontrolled pain and weakness denies any new falls This pain is ever since she came home, and is moving around more at home, whereas at [facility], she just stayed in bed [...] she already smoked" She came home from SNF with oxycodone but he does not want [...] reassurance PT is supposed to come tomorrow Weds 06/02 and I suggested talking with them [...] Description 06/07/2024 11:20 AM EST Office Visit [facility] [address] [place] [address] Baldev Solorio MD [address] [place] [address] 06/08/2024 9:45 AM EST Pharmacy Pharmacy Hematology Oncology [facility] [address] [place] [address] [facility], [facility] Clinic Hem/Onc [facility] [place] [place] [address] 06/08/2024 10:00 AM EST Scheduled Telephone Care Coordination and Integration [address] [place] [address] Kori Quezada, Community Health Concrete Paving Machine Operator [facility] [place] [place] [address] 06/15/2024 8:15 AM EST Scheduled Telephone Care Coordination and Integration [address] [place] [address] Kori Quezada, Community Health Concrete Paving Machine Operator [address] [place] [address] 07/05/2024 9:45 AM EST Office Visit Neurosurgery, [place] [address] [place] [address] Clinic, Brain Tumor Multidisciplinary [address] [place] [address] 07/13/2024 9:15 AM EST Office Visit Hematology/Oncology [facility] [address] [facility] [place] [address] Benja Watkins MD [address] [facility] [place] [address] 08/02/2024 8:20 AM EST Office Visit [facility] [address] [place] [address] Baldev Solorio MD [address] [place] [address] 10/05/2024 12:30 PM EDT Telemedicine Care at Home [address] [place] [address] Kori Dumont PA-C [address] [place] [address] 02/14/2025 8:00 AM EDT Imaging Radiology [address] [place] [address] Scheduled Procedures Name Priority Associated Diagnoses Date/Ti [...] 09/30/2023 DISCUSS TOBACCO CESSATION (REFER TO SMARTSET #6125) 01/28/2025 01/29/2024 TSH 01/28/2025 01/29/2024, 07/21, 07/25/2023, [...] this encounter Medical Devices Implanted Type Area Guest Service Team Leader Device Identifier Shelf Expiration Date Model / Serial / Lot Cover [place] Hole 24mm 421.528 - [id number] Implanted:Qty: 1 on 08/20/2021 by Joni Hand III, MD at OR [facility] Right: Head SYNTHES MAXILLOFACIAL 421.528 / / Plate Y Ti Lo Db 6h 21 421.517 - [id number] Implanted:Qty: 1 on 08/20/2021 by Joni Hand III, MD at [place] [facility] Right: Head SYNTHES MAXILLOFACIAL 421.517 / / Screw Ti Lo Pro Sd 4mm 400.834 - [id number] Implanted:Qty: 10 on 08/20/2021 by Joni Hand III, MD at [place] [facility] Right: Head SYNTHES MAXILLOFACIAL 400.834 / / Cement Hydroset Injectable 5cc - [id number] Implanted:Qty: 1 on 03/03/2024 by Joni Hand III, MD at [place] [facility] Left: Head SUZANNA [id number] 09/19/2025 [id number] / / [id number] Cover Bur Hol Ti Lo 17 421.527 - [id number] Implanted:Qty: 1 on 03/03/2024 by Joni Hand III, MD at [place] [facility] Left: Head SYNTHES MAXILLOFACIAL 421.527 / / Plate Ti Lo Pro Str 2h 421.502 - [id number] Implanted:Qty: 2 on 03/03/2024 by Joni Hand III, MD at [place] [facility] Left: Head SYNTHES MAXILLOFACIAL 421.502 / / Screw 4mm Ti Low Pro Sdrill - [id number] Implanted:Qty: 7 on 03/03/2024 by Joni Hand III, MD at OR [facility] Left: Head SYNTHES MAXILLOFACIAL 400.834E / / documented as of this encounter Visit Diagnoses Diagnosis 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 Care Teams Drop Machine Operator Relationship Specialty Start Date End Date Baldev Solorio MD [address] [facility] [place] [address] PCP - General Family Medicine 02/20/21 documented as of this encounter
--- OUTSIDE RECORDS SUMMARY | 2024-07-06 15:55 | External Medical Summary | Summary of Care ---
Author Name Unknown Organization [facility] Address [address] [place] [address] Phone [phone] Care Team Providers Care Wall Washer Name Role Phone Baldev Solorio MD Primary Care Provider Reason for Visit * Reason Onset Date Comments Case Management Plan Of Care 06/01/2024 Adv ice -- uncontrolled pain Encounter Details Date Type Department Care Team (Latest Contact Info) Description 06/01/2024 Slag Skimmer Telephone Care Coordination and Integration [address] [place] [address] Malena Quintanilla, RN [address] [place] [phone] Case Management Plan Of Care (Advice -- [...] 5 05/04/20 24 Active Vitamin D (Ergocalciferol) 23410 UNIT Oral Capsule Take 50,000 Units by [...] region 09/30/2023 Coronary artery disease invo lving elim ira coronary artery of elim ira heart without angina pectoris 09/30/2023 Pulmonary [...] 06/01/2024 3:37 PM EST 04/11/24 through 04/28/24 [facility], transferred to [facility] S/p unwitnessed fall, now with Left pelvic ring fracture, Ortho consulted, stable fx with no surgical indication, WBAT/ROM AT Expect gradual improvement over 6-12 weeks, however if still painful after 12 weeks, needs ortho f/u 04/28/24 through 05/14/24 [facility] dc to home with home health CM follow up call to [facility] call earlier today -- reported uncontrolled pain and weakness denies any new falls This pain is ever since she came home, and is moving around more at home, whereas at [facility] she just stayed in bed all day. [...] 06/07/2024 11:20 AM EST Office Visit [facility] [address] [place] [address] Baldev Solorio MD [address] [place] [address] 06/08/2024 9:45 AM EST Pharmacy Pharmacy Hematology Oncology [facility] [address] [place] [address] [facility], [facility] Hem/Onc [facility] [place] [address] 06/08/2024 10:00 AM EST Scheduled Telephone Care Coordination and Integration [address] [place] [address] Kori Quezada, Community Health Engravings Polisher [facility] [place] [address] 06/15/2024 8:15 AM EST Scheduled Telephone Care Coordination and Integration [address] [place] [address] Kori Quezada, Community Health Engravings Polisher [address] [place] [address] 07/05/2024 9:45 AM EST Office Visit Neurosurgery, [place] [address] [place] [address] Clinic, Brain Tumor Multidisciplinary [address] [place] [address] 07/13/2024 9:15 AM EST Office Visit Hematology/Oncology [facility] 200 [facility] [place] [place] [address] Benja Watkins MD 200 [facility] [place] [address] 08/02/2024 8:20 AM EST Office Visit [facility] [address] [place] [address] Baldev Solorio MD [address] [place] [address] 10/05/2024 12:30 PM EDT Telemedicine Care at Home [address] [place] [address] Kori Dumont PA-C [address] [place] [address] 02/14/2025 8:00 AM EDT Imaging Radiology [address] [place] [address] Scheduled Procedures Name Priority Associated Diagnoses Date/Ti [...] 09/30/2023 DISCUSS TOBACCO CESSATION (REFER TO SMARTSET #4395) 01/28/2025 01/29/2024 TSH 01/28/2025 01/29/2024, 07/21, 07/25/2023, [...] this encounter Medical Devices Implanted Type Area Clinical Statistical Programmer Device Identifier Shelf Expiration Date Model / Serial / Lot Cover Afton Hole 24mm 421.528 - [id number] Implanted:Qty: 1 on 08/20/2021 by Joni Hand III, MD at OR [facility] Right: Head SYNTHES MAXILLOFACIAL 421.528 / / Plate Y Ti Lo Db 6h 21 421.517 - [id number] Implanted:Qty: 1 on 08/20/2021 by Joni Hand III, MD at OR [facility] Right: Head SYNTHES MAXILLOFACIAL 421.517 / / Screw Ti Lo Pro Sd 4mm 400.834 - [id number] Implanted:Qty: 10 on 08/20/2021 by Joni Hand III, MD at OR [facility] Right: Head SYNTHES MAXILLOFACIAL 400.834 / / Cement Hydroset Injectable 5cc - [id number] Implanted:Qty: 1 on 03/03/2024 by Joni Hand III, MD at OR [facility] Left: Head SUZANNA [id number] 09/19/2025 [id number] / / [id number] Cover Bur Hol Ti Lo 17 421.527 - [id number] Implanted:Qty: 1 on 03/03/2024 by Joni Hand III, MD at OR [facility] Left: Head SYNTHES MAXILLOFACIAL 421.527 / / Plate Ti Lo Pro Str 2h 421.502 - [id number] Implanted:Qty: 2 on 03/03/2024 by Joni Hand III, MD at OR [facility] Left: Head SYNTHES MAXILLOFACIAL 421.502 / / Screw 4mm Ti Low Pro Sdrill - [id number] Implanted:Qty: 7 on 03/03/2024 by Joni Hand [...] and were consensually agreed upon. Care Teams Wall Washer Relationship Specialty Start Date End Date Baldev Solorio MD [address] [facility] [place] [address] PCP - General Family Medicine 02/20/21 documented as of this encounter
--- OUTSIDE RECORDS SUMMARY | 2024-07-06 15:55 | External Medical Summary | Summary of Care ---
Author Name Unknown Organization [facility] Address [address] [place] [address] Phone [phone] Care Team Providers Care Meal Grinder Tender Name Role Phone Martin Solorio MD Primary Care Provider [phone] Reason for Visit * Reason Onset Date [...] Description 06/07/2024 11:20 AM EST Office Visit [facility] [address] [place] [phone] Martin Solorio MD [address] [place] [address] Hospital discharge follow-up*; Closed nondisplaced fracture of [...] 5 05/04/20 24 Active Vitamin D (Ergocalciferol) 38808 UNIT Oral Capsule Take 50,000 Units by [...] region 09/30/2023 Coronary artery disease invo lving cabazon coronary artery of cabazon heart without angina pectoris 09/30/2023 Pulmonary nodules [...] on file Not on file Not on pattern filer Not on file Not on file [...] is seen today in follow-up for both [facility] hospital admission from April 11 to April 28, 2024 and then transferred admission to [facility] nursing home facility [id number]. She has been at home since. Unfortunately [...] does have phy sical therapy provided by [facility] home health but Um told that this [...] to the brain while she was at [facility]. She now is on immunologic therapy as [...] of cervical region Coronary artery disease involving cabazon coronary artery of cabazon heart without angina pectoris Pulmonary nodules Centrilobular [...] bedtime. 60 Capsule 5 Vitamin D (Ergocalciferol) 24777 UNIT Oral Capsule Take 50,000 Units by [...] new prescription for the tramadol to [facility] with new instructions that she use this [...] I see her again August 02 2024. Martin Solorio MD documented in this encounter Nursing Notes * Iveth Hopkins OVEN DRIER TENDER - 06/07/2024 11:53 AM EST The patient [...] 9:45 AM EST Pharmacy Pharmacy Hematology Oncology [facility] [address] [place] [address] [facility], [facility] Hem/Onc [address] [place] [address] 06/08/2024 10:00 AM EST Scheduled Telephone Care Coordination and Integration [address] [place] [address] Kori Quezada, Community Health Glazing Machine Operator [address] [place] [address] 06/15/2024 8:15 AM EST Scheduled Telephone Care Coordination and Integration [address] [place] [address] Kori Quezada, Community Health Glazing Machine Operator [address] [place] [address] 07/05/2024 9:45 AM EST Office Visit Neurosurgery, [place] [address] [place] [address] Clinic, Brain Tumor Multidisciplinary [address] [place] [address] 07/13/2024 9:15 AM EST Office Visit Hematology/Oncology [facility] [address] [place] [phone] Benja Watkins MD [address] [place] [address] 08/02/2024 8:20 AM EST Office Visit [address] [place] [address] Martin Solorio MD [address] [place] [address] 10/05/2024 12:30 PM EDT Telemedicine Care at Home [address] [place] [address] Kori Dumont PA-C [address] [place] [address] 02/14/2025 8:00 AM EDT Imaging Radiology [facility] 132 [facility] [place] [address] Scheduled Procedures Name Priority Associated Diagnoses Date/Ti [...] 09/30/2023 DISCUSS TOBACCO CESSATION (REFER TO SMARTSET #8430) 01/28/2025 01/29/2024 TSH 01/28/2025 01/29/2024, 07/21, 07/25/2023, [...] this encounter Medical Devices Implanted Type Area Cow Trimmer Device Identifier Shelf Expiration Date Model / Serial / Lot Cover Nilda Hole 24mm 421.528 - [id number] Implanted:Qty: 1 on 08/20/2021 by Joni Hand III, [place] [facility] [place]: Head SYNTHES MAXILLOFACIAL 421.528 / / Plate Y Ti Lo Db 6h 21 421.517 - [id number] Implanted:Qty: 1 on 08/20/2021 by Joni Hand III, [place] [facility] [place]: Head SYNTHES MAXILLOFACIAL 421.517 / / Screw Ti Lo Pro Sd 4mm 400.834 - [id number] Implanted:Qty: 10 on 08/20/2021 by Joni Hand III, [place] [facility] Right: Head SYNTHES MAXILLOFACIAL 400.834 / / Cement Hydroset Injectable [facility] - [id number] Implanted:Qty: 1 on 03/03/2024 by Joni Hand III, [place] [facility] Left: Head SUZANNA [id number] 09/19/2025 [id number] / / [id number] Cover Bur Hol Ti Lo 17 421.527 - [id number] Implanted:Qty: 1 on 03/03/2024 by Joni Hand III, MD [place] [facility] Left: Head SYNTHES MAXILLOFACIAL 421.527 / / Plate Ti Lo Pro Str 2h 421.502 - [id number] Implanted:Qty: 2 on 03/03/2024 by Joni Hand III, [place] [facility] Left: Head SYNTHES MAXILLOFACIAL 421.502 / / Screw 4mm Ti Low Pro Sdrill - [id number] Implanted:Qty: 7 on 03/03/2024 by Joni Hand III, [place] [facility] [place]: Head SYNTHES MAXILLOFACIAL 400.834E / / [...] and were consensually agreed upon. Care Teams Meal Grinder Tender Relationship Specialty Start Date End Date Martin Solorio MD [address] [place] [address] PCP - General Family Medicine 02/20/21 documented as of this encounter
--- OUTSIDE RECORDS SUMMARY | 2024-07-06 15:55 | External Medical Summary | Summary of Care ---
Author Name Unknown Organization [facility] Address [address] [place] [address] Phone [phone] Care Team Providers Care Factory Laborer Name Role Phone Martin Solorio MD Primary Care Provider [phone] Reason for Visit * Reason Onset Date Comments Forms Request 06/02/2024 Archivas Encounter Details Date Type Department Care Team (Late st Contact Info) Description 06/02/2024 Telephone Hematology/Oncology [facility] [address] [place] [phone] Benja Watkins MD [address] [place] [address] Forms Request (Archivas) Allergies Active Allergy Reactions Criticality Noted Date [...] 5 05/04/20 24 Active Vitamin D (Ergocalciferol) 24057 UNIT Oral Capsule Take 50,000 Units by mouth once a week. 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 Made them aware the [facility] form has been completed, faxed, and scanned into her chart. Both verbalized understanding and are requesting the form be mailed back to her at the address on file. Per patient and 's request scheduled patient for a return appointment with Dr. Watkins on 07/13/2024 at 9:15 am. Patient denies any questions or further needs at this time. [facility] form placed in outgoing mail to patient's address on file. Called and spoke with Jordan at [facility] Disability to provided updated return visit with Dr. Watkins on 07/13/2024 at 9:15 am, she repeated back information and denies any questions, will make the correctional case manager aware. * Telephone Encounter - Malou Mejía LPN - 06/02/2024 8:36 AM EST Fax received from Alvina Hernandez, from [facility] Claims; Form completed, requested documentation printed. Form awaiting MD signature. documented in this encounter Plan of Treatment Upcoming Encounters Date Type Department Care Team (Late st Contact Info) Description 06/07/2024 11:20 AM EST Office Visit [facility] [address] [place] [phone] Martin Solorio MD [address] [place] [address] 06/08/2024 9:45 AM EST Pharmacy Pharmacy Hematology Oncology [facility] [address] [place] [address] [facility] Clinic Hem/Onc [address] [place] [address] 06/08/2024 10:00 AM EST Scheduled Telephone Care Coordination and Integration [facility] [place] [address] Kori Quezada, Community Health Podopediatrician [facility] [address] 06/15/2024 8:15 AM EST Scheduled Telephone Care Coordination and Integration [address] [place] [address] Kori Quezada, Community Health Podopediatrician [address] [place] [address] 07/05/2024 9:45 AM EST Office Visit Neurosurgery, [place] [address] [place] [address] Clinic, Brain Tumor Multidisciplinary [address] [place] [address] 07/13/2024 9:15 AM EST Office Visit Hematology/Oncology [facility] [place] [address] [place], [place] [phone] Benja Watkins MD [address] [place] [address] 08/02/2024 8:20 AM EST Office Visit [facility] 226 [facility] [place] [address] Martin Solorio MD [address] [place] [address] 10/05/2024 12:30 PM EDT Telemedicine Care at Home [address] [place] [address] Kori Dumont PA-C [address] [place] [address] 02/14/2025 8:00 AM EDT Imaging Radiology [facility]st [facility] [place] 132 [facility] [place] [address] Scheduled Procedures Name Priority Associated Diagnoses Date/Ti [...] 09/30/2023 DISCUSS TOBACCO CESSATION (REFER TO SMARTSET #0158) 01/28/2025 01/29/2024 TSH 01/28/2025 01/29/2024, 07/21, 07/25/2023, [...] this encounter Medical Devices Implanted Type Area Port Crane Operator Device Identifier Shelf Expiration Date Model / Serial / Lot Cover Pearl Hole 24mm 421.528 - [id number] Implanted:Qty: 1 on 08/20/2021 by Joni Hand III, MD at [place] [facility] Right: Head SYNTHES MAXILLOFACIAL 421.528 / / Plate Y Ti Lo Db 6h 21 421.517 - [id number] Implanted:Qty: 1 on 08/20/2021 by Joni Hand III, MD at OR [facility] Right: Head SYNTHES MAXILLOFACIAL 421.517 / / Screw Ti Lo Pro Sd 4mm 400.834 - [id number] Implanted:Qty: 10 on 08/20/2021 by Joni Hand III, MD at OR [facility] Right: Head SYNTHES MAXILLOFACIAL 400.834 / / Cement Hydroset Injectable 5cc - [id number] Implanted:Qty: 1 on 03/03/2024 by Joni Hand III, MD at OR [facility] Left: Head SUZANNA [id number] 09/19/2025 [id number] / / [id number] Cover Bur Hol Ti Lo 17 421.527 - [id number] Implanted:Qty: 1 on 03/03/2024 by Joni Hand III, MD at OR [facility] Left: Head SYNTHES MAXILLOFACIAL 421.527 / / Plate Ti Lo Pro Str 2h 421.502 - [id number] Implanted:Qty: 2 on 03/03/2024 by Joni Hand III, MD at OR [facility] Left: Head SYNTHES MAXILLOFACIAL 421.502 / / Screw 4mm Ti Low Pro Sdrill - [id number] Implanted:Qty: 7 on 03/03/2024 by Joni Hand III, MD at OR [facility] Left: Head SYNTHES MAXILLOFACIAL [...] and were consensually agreed upon. Care Teams Factory Laborer Relationship Specialty Start Date End Date Martin Solorio MD [address] [facility] [place] [id number] PCP - General Family Medicine 02/20/21 documented as of this encounter
--- OUTSIDE RECORDS SUMMARY | 2024-07-06 15:56 | External Medical Summary | Summary of Care ---
Author Name Unknown Organization [facility] Address [address] [place] [address] Phone [phone] Care Team Providers Care Shaft Mechanic Name Role Phone Martin Solorio MD Primary Care Provider [phone] Reason for Visit * Reason Onset Date Comments Forms Request 05/26/2024 Encounter Details Date Type Department Care Team (Late st Contact Info) Description 05/26/2024 Telephone [facility] [address] [place] [address] Martin Solorio MD [address] [place] [address] Forms Request Allergies Active Allergy Reactions Criticality Noted Date Comments Erythromycin 08/15/1997 seizures documented as of this encounter (statuses as of 05/26/2024) Medications Medication Sig Dispensed Refills Start Date [...] every evening. 90 Tablet 3 07/31/2023 Active Triamcinolone Acetonide 0.1 % External Cream (Aristocort) Apply topically to affected area 2 times a day. To affected area. 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 60 Tablet 5 04/19/2024 Active Trametinib Dimethyl Sulfoxide 0.5 MG Oral Tablet (Mekinist)Indicatio ns:Malignant melanoma of left lower extremity (HCC) Take 3 tablets (1.5mg) by mouth in the morning. 90 Tablet 5 05/04/2024 Active Dabrafenib Mesylate 75 MG Oral Capsule (Tafinlar) Take 1 Capsule by mouth in the morning and 1 Capsule before bedtime. 60 Capsule 5 05/04/2024 Active Vitamin D (Ergocalciferol) 64110 UNIT Oral Capsule Take 50,000 Units by mouth once a week. 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 Cerebral atrophy 09/30/2023 Left sided lacunar infarction 09/30/2023 Spinal stenosis of cervical region 09/30/2023 Coronary artery disease invo lving [place] coronary artery of [place] heart without angina pectoris 09/30/2023 Pulmonary nodules 09/30/2023 Centrilobular emphysema 09/30/2023 Left atrial enlargement 09/30/2023 Mild mitral regurgitation 09/30/2023 Mild tricuspid regurgitation 09/30/2023 Mild pulmonary valve regurgitation 09/30/2023 Brain lesion 09/08/2023 Malignant neoplasm metastatic to brain Hx of melanoma of skin 08/26/2019 Overview: Melanoma involving the left leg, S/P resection (12/26/2017 -CT of invasion 2.7 mm level 4, T3b (presence of ulceration) -/ sentinel lymph nodes positive for metastatic disease [...] as of this encounter (statuses as of 05/26/2024) Resolved Problems Problem Noted Date Diagnosed Date [...] as of this encounter (statuses as of 05/26/2024) Immunizations Name Administration Dates Next Due COVID-19, [...] encounter Miscellaneous Notes * Telephone Encounter - Iveth Hopkins LPN - 05/26/2024 2:07 PM EST Received Fax for BFPROVIDERS: Dr. Martin Solorio [facility] received from [facility] and FAXED documented in this encounter Plan of Treatment Upcoming Encounters Date Type Department Care Team (Late st Contact Info) Description 06/01/2024 1:00 PM EST Scheduled Telephone Care Coordination and Integration [facility] [place] [address] Kori Quezada, Community Health Technical Rep [address] [place] [address] 06/07/2024 11:20 AM EST Office Visit [facility] [address] [place] [address] Martin Solorio MD [address] [place] [address] 06/08/2024 9:45 AM EST Pharmacy Pharmacy Hematology Oncology [address] [address] [facility] Hem/Onc [address] [place] [address] 06/08/2024 10:00 AM EST Scheduled Telephone Care Coordination and Integration [facility] [place] [address] Kori Quezada, Community Health Technical Rep [address] [place] [address] 06/15/2024 8:15 AM EST Scheduled Telephone Care Coordination and Integration [address] [place] [address] Kori Quezada, Community Health Technical Rep [address] [place] [address] 07/05/2024 9:45 AM EST Office Visit Neurosurgery, [place] [address] [place] [address] Clinic, Brain Tumor Multidisciplinary [facility] [place] [address] 08/02/2024 8:20 AM EST Office Visit [facility], [facility] [address] [place] [address] Martin Solorio MD [address] [place] [address] 10/05/2024 12:30 PM EDT Telemedicine Care at Home [address] [place] [address] Kori Dumont PA-C [address] [place] [address] 02/14/2025 8:00 AM EDT Imaging Radiology [address] [facility] [place] [address] Scheduled Procedures Name Priority Associated Diagnoses Date/Ti [...] this encounter Medical Devices Implanted Type Area Associate Media Director Device Identifier Shelf Expiration Date Model / Serial / Lot Cover Nilda Hole 24mm 421.528 - [id number] Implanted:Qty: 1 on 08/20/2021 by Joni Hand III, MD at [place] [facility] Right: Head SYNTHES MAXILLOFACIAL 421.528 / / Plate Y Ti Lo Db 6h 21 421.517 - [id number] Implanted:Qty: 1 on 08/20/2021 by Joni Hand III, MD at [place] [facility] Right: Head SYNTHES MAXILLOFACIAL 421.517 / / Screw Ti Lo Pro Sd 4mm 400.834 - [id number] Implanted:Qty: 10 on 08/20/2021 by Joni Hand III, MD at [place] [facility] Right: Head SYNTHES MAXILLOFACIAL 400.834 / / Cement Hydroset Injectable 5cc - [id number] Implanted:Qty: 1 on 03/03/2024 by Joni Hand III, MD at [place] [facility] Left: Head SUZANNA [id number] 09/19/2025 [id number] / / [id number] Cover Bur Hol Ti Lo 17 421.527 - [id number] Implanted:Qty: 1 on 03/03/2024 by Joni Hand III, MD at [place] [facility] Left: Head SYNTHES MAXILLOFACIAL 421.527 / / Plate Ti Lo Pro Str 2h 421.502 - [id number] Implanted:Qty: 2 on 03/03/2024 by Joni Hand III, MD at [place] [facility] Left: Head SYNTHES MAXILLOFACIAL 421.502 / / Screw 4mm Ti Low Pro Sdrill - [id number] Implanted:Qty: 7 on 03/03/2024 by Joni Hand III, MD at [place] [facility] Left: Head SYNTHES MAXILLOFACIAL 400.834E / / [...] and were consensually agreed upon. Care Teams Shaft Mechanic Relationship Specialty Start Date End Date Martin Solorio MD [address] [place] [address] PCP - General Family Medicine 02/20/21 documented as of this encounter
--- OUTSIDE RECORDS SUMMARY | 2024-07-06 15:56 | External Medical Summary | Summary of Care ---
Author Name Unknown Organization [facility] Address [address] [place] [address] Phone [phone] Care Team Providers Care Storage Facility Rental Clerk Name Role Phone Martin Solorio MD Primary Care Provider Reason for Visit * Reason Onset Date Comments Home Health 05/27/2024 Encounter Details Date Type Department Care Team (Late st Contact Info) Description 05/27/[address] [facility] [address] [place] [address] Martin Solorio MD [address] [place] [address] Home Health Allergies Active Allergy Reactions Criticality Noted Date Comments Erythromycin 08/15/1997 seizures documented as of this encounter (statuses as of 05/27/2024) Medications Medication Sig Dispensed Refills Start Date [...] Capsule 5 05/04/2024 Active Vitamin D (Ergocalciferol) 32203 UNIT Oral Capsule Take 50,000 Units by mouth once a week. 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 Cerebral atrophy 09/30/2023 Left sided lacunar infarction 09/30/2023 Spinal stenosis of cervical region 09/30/2023 Coronary artery disease invo lving [place] coronary artery of [place] heart without angina pectoris 09/30/2023 Pulmonary [...] as of this encounter (statuses as of 05/27/2024) Resolved Problems Problem Noted Date Diagnosed Date [...] as of this encounter (statuses as of 05/27/2024) Immunizations Name Administration Dates Next Due COVID-19, [...] encounter Miscellaneous Notes * Telephone Encounter - Yue Rodriguez, ASIYA - 05/27/2024 4:27 PM EST PAVITHRA PT/OT/ST Benedict Start of Care/Continuation Maurizio OT, Calling from: [facility] PT Plan of care: 1 times per every other week for 6 weeks: Focusing on: health management, safety, home exercise program Concerns: No None Symptoms: none Vitals: T 98.0 P 67 RR 18 BP 104/62, sitting ,left arm SP O2 97% RA Lung sounds Clear Narrative: Julianna Kohler [facility] Advised that additional visit orders will be signed by Martin Solorio MD and to fax to the office for signature documented in this encounter Plan of Treatment Upcoming Encounters Date Type Department Care Team (Late st Contact Info) Description 06/01/2024 1:00 PM EST Scheduled Telephone Care Coordination and Integration [address] [place] [address] Kori Quezada, Community Health Mill Tender Washing [address] [place] [address] 06/07/2024 11:20 AM EST Office Visit [facility] [address] [place] [phone] Martin Solorio MD [address] [place] [address] 06/08/2024 9:45 AM EST Pharmacy Pharmacy Hematology Oncology [address] [address] [facility] Hem/Onc [facility] [place] [address] 06/08/2024 10:00 AM EST Scheduled Telephone Care Coordination and Integration [address] [place] [address] Kori Quezada, Community Health Mill Tender Washing [address] [place] [address] 06/15/2024 8:15 AM EST Scheduled Telephone Care Coordination and Integration [address] [place] [address] Kori Quezada, Community Health Mill Tender Washing [address] [place] [address] 07/05/2024 9:45 AM EST Office Visit Neurosurgery, [place] [address] [place] [address] Clinic, Brain Tumor Multidisciplinary [address] [place] [address] 08/02/2024 8:20 AM EST Office Visit [facility] [address] [place] [address] Martin Solorio MD [address] [place] [address] 10/05/2024 12:30 PM EDT Telemedicine Care at Home [address] [place] [address] Kori Dumont PA-C [address] [place] [address] 02/14/2025 8:00 AM EDT Imaging Radiology [address] [place] [address] Scheduled Procedures Name Priority Associated Diagnoses Date/Ti [...] encounter Medical Devices Implanted Type Area Oracle Drm Consultant Device Identifier Shelf Expiration Date Model / Serial / Lot Cover Nilda Hole 24mm 421.528 - [id number] Implanted:Qty: 1 on 08/20/2021 by Joni Hand III, MD [place] [facility] Right: Head SYNTHES MAXILLOFACIAL 421.528 / / Plate Y Ti Lo Db 6h 21 421.517 - [id number] Implanted:Qty: 1 on 08/20/2021 by Joni Hand III, MD [place] [facility] [place] Right: Head SYNTHES MAXILLOFACIAL 421.517 / / Screw Ti Lo Pro Sd 4mm 400.834 - [id number] Implanted:Qty: 10 on 08/20/2021 by Joni Hand III, MD at [place] [facility] [place] Right: Head SYNTHES MAXILLOFACIAL 400.834 / / Cement Hydroset Injectable 5cc - [id number] Implanted:Qty: 1 on 03/03/2024 by Joni Hand III, MD at [place] [facility] [place] Left: Head SUZANNA [id number] 09/19/2025 [id number] / / [id number] Cover Bur Hol Ti Lo 17 421.527 - [id number] Implanted:Qty: 1 on 03/03/2024 by Joni Hand III, MD at [place] [facility] [place] Left: Head SYNTHES MAXILLOFACIAL 421.527 / / Plate Ti Lo Pro Str 2h 421.502 - [id number] Implanted:Qty: 2 on 03/03/2024 by Joni Hand III, MD at [place] [facility] [place] Left: Head SYNTHES MAXILLOFACIAL 421.502 / / Screw 4mm Ti Low Pro Sdrill - [id number] Implanted:Qty: 7 on 03/03/2024 by Joni Hand [...] and were consensually agreed upon. Care Teams Storage Facility Rental Clerk Relationship Specialty Start Date End Date Martin Solorio MD [address] [facility] [place] [address] PCP - General Family Medicine 02/20/21 documented as of this encounter
--- OUTSIDE RECORDS SUMMARY | 2024-07-06 15:56 | External Medical Summary | Summary of Care ---
Author Name Unknown Organization [facility] Address [address] [place] [address] Phone [phone] Care Team Providers Care Hedis Analyst Name Role Phone Martin Solorio MD Primary Care Provider [phone] Encounter Details Date Type Department Care Team (Late st Contact Info) Description 06/01/2024 1:00 PM EST Scheduled Telephone Care Coordination and Integration [address] [place] [address] Kori Quezada, Community Health Joint Supervisor [address] [place], [place] [phone] Allergies Active Allergy Reactions Criticality Noted Date Comments Erythromycin 08/15/1997 seizures documented as of this encounter (statuses as of 06/01/2024) Medications MULTIVITAMINS PO TABS Take 1 Tablet [...] 5 05/04/20 24 Active Vitamin D (Ergocalciferol) 52755 UNIT Oral Capsule Take 50,000 Units by mouth once a week. 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 Cerebral atrophy 09/30/2023 Left sided lacunar infarction 09/30/2023 Spinal stenosis of cervical region 09/30/2023 Coronary artery disease invo lving [place] coronary artery of [place] heart without angina pectoris 09/30/2023 Pulmonary nodules [...] as of this encounter (statuses as of 06/01/2024) Resolved Problems Problem Noted Date Diagnosed Date [...] as of this encounter (statuses as of 06/01/2024) Immunizations Name Administration Dates Next Due COVID-19, [...] file Not on file Not on glass cut off tender Not on file Not on file Not [...] of Assessment Author Yes 03/01/2024 1:15 PM EDRobert Kumar, Do ольга Jones RN * Do you [...] of Assessment Author Yes 03/01/2024 1:15 PM Do ольга Connell RN documented as of this encounter Mental Status * Because of a physical, mental, or emotional condition, do you have serious difficulty concentrating, remembering, or making decisions? (5 years old or older) Answer Entry Date Author Yes 03/01/2024 1:15 PM Do ольга Connell RN documented in this encounter Progress Notes * Malena Quintanilla RN - 06/01/2024 3:16 PM EST Follow up call to Kwame This pain is ever since she came home, and is moving around more at home, whereas at [facility], she just stayed in bed all day. [...] then alternate every 3 hours with Tylenol I informed I may not hear from PCP today Pharmacy is [facility] * Kori Quezada Community Health Joint Supervisor - 06/01/2024 2:49 PM EST Telemedicine visit: No Community Health Joint Supervisor (SOREN) documentation: [facility] outbound call to patient per Spoke with spouse patient was sleeping Denies falls Pain in buttocks pretty bad taking aleve it is not touching it Weakness in legs Patient had one day of PT/OT Denies headaches Restarted treatments for brain cancer, when she went to [facility] Kori Quezada [facility] Community Health Worker Call or Text- [phone] documented in this encounter Plan of Treatment Upcoming Encounters Date Type Department Care Team (Late st Contact Info) Description 06/07/2024 11:20 AM EST Office Visit [facility] [address] [place] [address] Martin Solorio MD [address] [place] [address] 06/08/2024 9:45 AM EST Pharmacy Pharmacy Hematology Oncology [facility] [address] [place] [address] [facility] Clinic Hem/Onc [facility] [place] [address] 06/08/2024 10:00 AM EST Scheduled Telephone Care Coordination and Integration [address] [place] [address] Kori Quezada Community Health Joint Supervisor [address] [place] [address] 06/15/2024 8:15 AM EST Scheduled Telephone Care Coordination and Integration [facility] [place] [address] Kori Quezada Community Health Joint Supervisor [address] [place] [address] 07/05/2024 9:45 AM EST Office Visit Neurosurgery, [place] [address] [place] [address] Clinic, Brain Tumor Multidisciplinary [address] [place] [address] 08/02/2024 8:20 AM EST Office Visit [facility] [address] [place] [address] Martin Solorio MD [address] [place] [address] 10/05/2024 12:30 PM EDT Telemedicine Care at Home [address] [place] [address] Kori Dumont PA-C [address] [place] [address] 02/14/2025 8:00 AM EDT Imaging Radiology [address] [place] [address] Scheduled Procedures Name Priority Associated Diagnoses Date/Ti [...] this encounter Medical Devices Implanted Type Area Administrative Resources Associate Device Identifier Shelf Expiration Date Model / Serial / Lot Cover Nilda Hole 24mm 421.528 - [id number] Implanted:Qty: 1 on 08/20/2021 by Joni Hand III, MD at [place] [facility] [place] Right: Head SYNTHES MAXILLOFACIAL 421.528 / / Plate Y Ti Lo Db 6h 21 421.517 - [id number] Implanted:Qty: 1 on 08/20/2021 by Joni Hand III, MD at OR [facility] Right: Head SYNTHES MAXILLOFACIAL 421.517 / / Screw Ti Lo Pro Sd 4mm 400.834 - [id number] Implanted:Qty: 10 on 08/20/2021 by Joni Hand III, MD at OR [facility] Right: Head SYNTHES MAXILLOFACIAL 400.834 / / Cement Hydroset Injectable 5cc - [id number] Implanted:Qty: 1 on 03/03/2024 by Joni Hand III, MD at OR [facility] Left: Head SUZANNA [id number] 09/19/2025 [id number] / / [id number] Cover Bur Hol Ti Lo 17 421.527 - [id number] Implanted:Qty: 1 on 03/03/2024 by Joni Hand III, MD at OR [facility] Left: Head SYNTHES MAXILLOFACIAL 421.527 / / Plate Ti Lo Pro Str 2h 421.502 - [id number] Implanted:Qty: 2 on 03/03/2024 by Joni Hand III, MD at OR [facility] Left: Head SYNTHES MAXILLOFACIAL 421.502 / / Screw 4mm Ti Low Pro Sdrill - [id number] Implanted:Qty: 7 on 03/03/2024 by Joni Hand III, MD at OR [facility] Left: Head SYNTHES [...] and were consensually agreed upon. Care Teams Hedis Analyst Relationship Specialty Start Date End Date Martin Solorio MD [address] [place] [address] PCP - General Family Medicine 02/20/21 documented as of this encounter
--- OUTSIDE RECORDS SUMMARY | 2024-07-06 15:56 | External Medical Summary | Summary of Care ---
Author Name Unknown Organization [facility] Address [address] [place] [address] Phone [phone] Care Team Providers Care Fine Artist Name Role Phone Martin Solorio MD Primary Care Provider Reason for Visit * Reason Onset Date Comments Case Management Plan Of Care 06/01/2024 Adv ice -- uncontrolled pain Encounter Details Date Type Department Care Team (Latest Contact Info) Description 06/01/2024 Director Of Online Merchandising Telephone Care Coordination and Integration [address] [place] [address] Malena Quintanilla, RN [address] [place] [address] Case Management Plan Of Care (Advice -- [...] 5 05/04/20 24 Active Vitamin D (Ergocalciferol) 86472 UNIT Oral Capsule Take 50,000 Units by [...] on file Not on file Not on fire hydrant mechanic Not on file Not on file Not [...] encounter Miscellaneous Notes * Telephone Encounter - Malena Quintanilla RN - 06/01/2024 3:37 PM EST 04/11/24 through 04/28/24 [facility], transferred to [facility] S/p unwitnessed fall, now with Left pelvic ring fracture, Ortho consulted, stable fx with no surgical indication, WBAT/ROM AT Expect gradual improvement over 6-12 weeks, however if still painful after 12 weeks, needs ortho f/u 04/28/24 through 05/14/24 [facility], dc to home with home health CM follow up call to [facility]W call earlier today -- reported uncontrolled pain and weakness denies any new falls This pain is ever since she came home, and is moving around more at home, whereas at [facility], she just stayed in bed all day. [...] EST Office Visit [facility] [address] [place] [address] Martin Solorio MD [address] [place] [address] 06/08/2024 9:45 AM EST Pharmacy Pharmacy Hematology Oncology [facility] [address] [place] [address] [facility] Hem/Onc [address] [place] [address] 06/08/2024 10:00 AM EST Scheduled Telephone Care Coordination and Integration [address] [place] [address] Kori Quezada, Community Health Template Clerk [address] [place] [address] 06/15/2024 8:15 AM EST Scheduled Telephone Care Coordination and Integration [address] [place] [address] Kori Quezada, Community Health Template Clerk [address] [place] [address] 07/05/2024 9:45 AM EST Office Visit Neurosurgery, [place] [address] [place] [address] Clinic, Brain Tumor Multidisciplinary [address] [place] [address] 08/02/2024 8:20 AM EST Office Visit [facility] [address] [place] [address] Martin Solorio MD [address] [place] [address] 10/05/2024 12:30 PM EDT Telemedicine Care at Home [address] [place] [address] Kori Dumont PA-C [address] [place] [address] 02/14/2025 8:00 AM EDT Imaging Radiology [address] [facility] [place] [address] Scheduled Procedures Name Priority Associated Diagnoses Date/Ti [...] this encounter Medical Devices Implanted Type Area Buffet Waiter/Waitress Device Identifier Shelf Expiration Date Model / Serial / Lot Cover Nilda Hole 24mm 421.528 - [id number] Implanted:Qty: 1 on 08/20/2021 by Joni Hand III, MD at [place] [facility] Right: Head SYNTHES MAXILLOFACIAL 421.528 / / Plate Y Ti Lo Db 6h 21 421.517 - [id number] Implanted:Qty: 1 on 08/20/2021 by Joni Hand III, MD at [place] [facility] Right: Head SYNTHES MAXILLOFACIAL 421.517 / / Screw Ti Lo Pro Sd 4mm 400.834 - [id number] Implanted:Qty: 10 on 08/20/2021 by Joni Hand III, MD at [place] [facility] Right: Head SYNTHES MAXILLOFACIAL 400.834 / / Cement Hydroset Injectable 5cc - [id number] Implanted:Qty: 1 on 03/03/2024 by Joni Hand III, MD at [place] [facility] Left: Head SUZANNA [id number] 09/19/2025 [id number] / / [id number] Cover Bur Hol Ti Lo 17 421.527 - [id number] Implanted:Qty: 1 on 03/03/2024 by Joni Hand III, MD at [place] [facility] Left: Head SYNTHES MAXILLOFACIAL 421.527 / / Plate Ti Lo Pro Str 2h 421.502 - [id number] Implanted:Qty: 2 on 03/03/2024 by Joni Hand III, MD at [place] [facility] Left: Head SYNTHES MAXILLOFACIAL 421.502 / / Screw 4mm Ti Low Pro Sdrill - [id number] Implanted:Qty: 7 on 03/03/2024 by Joni Hand III, MD at [place] [facility] Left: Head SYNTHES MAXILLOFACIAL 400.834E / / [...] and were consensually agreed upon. Care Teams Fine Artist Relationship Specialty Start Date End Date Martin Solorio MD [address] [facility] [place] [address] PCP - General Family Medicine 02/20/21 documented as of this encounter
--- OUTSIDE RECORDS SUMMARY | 2024-07-06 15:56 | External Medical Summary | Summary of Care ---
Author Name Unknown Organization [facility] Address [address] [place] [address] Phone [phone] Care Team Providers Care Loading Inspector Name Role Phone Martin Solorio MD Primary Care Provider Reason for Visit * Reason Onset Date Comments Case Management Plan Of Care 06/01/2024 Adv ice -- uncontrolled pain Encounter Details Date Type Department Care Team (Latest Contact Info) Description 06/01/2024 Softball Winder Telephone Care Coordination and Integration [address] [place] [address] Malena Quintanilla, RN [address] [place] [address] Case Management Plan Of Care (Advice -- [...] 5 05/04/20 24 Active Vitamin D (Ergocalciferol) 23569 UNIT Oral Capsule Take 50,000 Units by mouth once a week. 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 Cerebral atrophy 09/30/2023 Left sided lacunar infarction 09/30/2023 Spinal stenosis of cervical region 09/30/2023 Coronary artery disease invo lving [place] coronary artery of [place] heart without angina pectoris 09/30/2023 Pulmonary nodules [...] on file Not on file Not on finish filer Not on file Not on file [...] 06/01/2024 3:37 PM EST 04/11/24 through 04/28/24 [facility], transferred to [facility] S/p unwitnessed fall, now with Left pelvic ring fracture, Ortho consulted, stable fx with no surgical indication, WBAT/ROM AT Expect gradual improvement over 6-12 weeks, however if still painful after 12 weeks, needs ortho f/u 04/28/24 through 05/14/24 [facility], or to home with home health CM follow up call to [facility] call earlier today -- reported uncontrolled pain and weakness denies any new falls This pain is ever since she came home, and is moving around more at home, whereas at [facility], she just stayed in bed [...] Description 06/07/2024 11:20 AM EST Office Visit [facility] [address] [place] [id number] Martin Solorio MD [address] [place] [address] 06/08/2024 9:45 AM EST Pharmacy Pharmacy Hematology Oncology [facility] [address] [place] [address] [facility] Clinic Hem/Onc [address] [place] [address] 06/08/2024 10:00 AM EST Scheduled Telephone Care Coordination and Integration [address] [place] [address] Kori Quezada, [facility] Health Transportation Aid [address] [place] [address] 06/15/2024 8:15 AM EST Scheduled Telephone Care Coordination and Integration [address] [place] [address] Kori Quezada, Community Health Transportation Aid [address] [place] [address] 07/05/2024 9:45 AM EST Office Visit Neurosurgery, [place] [address] [place] [address] Clinic, Brain Tumor Multidisciplinary [address] [place] [address] 08/02/2024 8:20 AM EST Office Visit [facility] [address] [place] [address] Martin Solorio MD [address] [place] [address] 10/05/2024 12:30 PM EDT Telemedicine Care at Home [address] [place] [address] Kori Dumont PA-C [address] [place] [address] 02/14/2025 8:00 AM EDT Imaging Radiology [facility] [address] [facility] [place] [address] Scheduled Procedures Name Priority Associated Diagnoses Date/Ti [...] this encounter Medical Devices Implanted Type Area Accountant Systems Device Identifier Shelf Expiration Date Model / Serial / Lot Cover [place] Hole 24mm 421.528 - [id number] Implanted:Qty: 1 on 08/20/2021 by Joni Hand III, MD at [place] [facility] Right: Head SYNTHES MAXILLOFACIAL 421.528 / / Plate Y Ti Lo Db 6h 21 421.517 - [id number] Implanted:Qty: 1 on 08/20/2021 by Joni Hand III, MD at [place] [facility] Right: Head SYNTHES MAXILLOFACIAL 421.517 / / Screw Ti Lo Pro Sd 4mm 400.834 - [id number] Implanted:Qty: 10 on 08/20/2021 by Joni Hand III, MD at [place] [facility] Right: Head SYNTHES MAXILLOFACIAL 400.834 / / Cement Hydroset Injectable 5cc - [id number] Implanted:Qty: 1 on 03/03/2024 by Joni Hand III, MD at [place] [facility] Left: Head SUZANNA [id number] 09/19/2025 [id number] / / [id number] Cover Bur Hol Ti Lo 17 421.527 - [id number] Implanted:Qty: 1 on 03/03/2024 by Joni Hand III, MD at [place] [facility] Left: Head SYNTHES MAXILLOFACIAL 421.527 / / Plate Ti Lo Pro Str 2h 421.502 - [id number] Implanted:Qty: 2 on 03/03/2024 by Joni Hand III, MD at [place] [facility] Left: Head SYNTHES MAXILLOFACIAL 421.502 / / Screw 4mm Ti Low Pro Sdrill - [id number] Implanted:Qty: 7 on 03/03/2024 by Joni Hand III, MD at [place] [facility] Left: Head SYNTHES MAXILLOFACIAL 400.834E [...] and were consensually agreed upon. Care Teams Loading Inspector Relationship Specialty Start Date End Date Martin Solorio MD [address] [place] [facility] [place] [address] PCP - General Family Medicine 02/20/21 documented as of this encounter
--- OUTSIDE RECORDS SUMMARY | 2024-07-06 15:56 | External Medical Summary | Summary of Care ---
Author Name Unknown Organization [facility] Address [address] [place] [address] Phone [phone] Care Team Providers Care Director Online Marketing Name Role Phone Martin Solorio MD Primary Care Provider [phone] Reason for Visit * Reason Onset Date Comments Forms Request 06/02/2024 [employer] Encounter Details Date Type Department Care Team (Late st Contact Info) Description 06/02/2024 Telephone Hematology/Oncology [facility] [address] [place] [phone] Benja Watkins MD [address] [place] [address] Forms Request ([employer]) Allergies Active Allergy Reactions Criticality Noted Date [...] 5 05/04/20 24 Active Vitamin D (Ergocalciferol) 93140 UNIT Oral Capsule Take 50,000 Units by mouth once a week. 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 Form awaiting MD signature. documented in this encounter Plan of Treatment Upcoming Encounters Date Type Department Care Team (Late st Contact Info) Description 06/07/2024 11:20 AM EST Office Visit [facility] [address] [place] [phone] Martin Solorio MD [address] [place] [address] 06/08/2024 9:45 AM EST Pharmacy Pharmacy Hematology Oncology [facility] [address] [place] [address] [facility] Hem[facility]Onc [address] [place] [address] 06/08/2024 10:00 AM EST Scheduled Telephone Care Coordination and Integration [facility] [place] [address] Kori Quezada, Community Health Manager Bench [facility] [place] [address] 06/15/2024 8:15 AM EST Scheduled Telephone Care Coordination and Integration [address] [place] [address] Kori Quezada, Community Health Manager Bench [address] [place] [address] 07/05/2024 9:45 AM EST Office Visit Neurosurgery, [place] [address] [place] [address] Clinic, Brain Tumor Multidisciplinary [address] [place] [address] 08/02/2024 8:20 AM EST Office Visit Family [facility] [address] [place] [address] Martin Solorio MD [address] [place] [address] 10/05/2024 12:30 PM EDT Telemedicine Care at Home [address] [place] [address] Kori Dumont PA-C [address] [place] [address] 02/14/2025 8:00 AM EDT Imaging Radiology [address] [address] Scheduled Procedures Name Priority Associated Diagnoses [...] this encounter Medical Devices Implanted Type Area Manager Division Device Identifier Shelf Expiration Date Model / Serial / Lot Cover Nilda Hole 24mm 421.528 - [id number] Implanted:Qty: 1 on 08/20/2021 by Joni Hand III, MD at [place] [facility] Right: Head SYNTHES MAXILLOFACIAL 421.528 / / Plate Y Ti Lo Db 6h 21 421.517 - [id number] Implanted:Qty: 1 on 08/20/2021 by Joni Hand III, MD at [place] [facility] [place] Right: Head SYNTHES MAXILLOFACIAL 421.517 / / Screw Ti Lo Pro Sd 4mm 400.834 - [id number] Implanted:Qty: 10 on 08/20/2021 by Joni Hand III, MD at [place] [facility] [place] Right: Head SYNTHES MAXILLOFACIAL 400.834 / / Cement Hydroset Injectable 5cc - [id number] Implanted:Qty: 1 on 03/03/2024 by Joni Hand III, MD at [place] [facility] [place] Left: Head SUZANNA [id number] 09/19/2025 [id number] / / [id number] Cover Bur Hol Ti Lo 17 421.527 - [id number] Implanted:Qty: 1 on 03/03/2024 by Joni Hand III, MD at [place] [facility] [place] Left: Head SYNTHES MAXILLOFACIAL 421.527 / / Plate Ti Lo Pro Str 2h 421.502 - [id number] Implanted:Qty: 2 on 03/03/2024 by Joni Hand III, MD at [place] [facility] [place] Left: Head SYNTHES MAXILLOFACIAL 421.502 / / Screw 4mm Ti Low Pro Sdrill - [id number] Implanted:Qty: 7 on 03/03/2024 by Joni Hand III, MD at [place] [facility] [place] Left: Head SYNTHES MAXILLOFACIAL 400.834E / / [...] were consensually agreed upon. Care Teams Director Online Marketing Relationship Specialty Start Date End Date Martin Solorio MD [address] [facility] [address] PCP - General Family Medicine 02/20/21 documented as of this encounter
--- OUTSIDE RECORDS SUMMARY | 2024-07-06 15:56 | External Medical Summary | Summary of Care ---
Author Name Unknown Organization [facility] Address [address] [place] [address] Phone [phone] Care Team Providers Care Business Development Specialist Name Role Phone Martin Solorio MD Primary Care Provider [phone] Encounter Details Date Type Department Care Team (Late st Contact Info) Description 06/01/2024 1:00 PM EST Scheduled Telephone Care Coordination and Integration [address] [place] [address] Kori Quezada, Community Health Investment Recovery Technician [address] [place], [place] [id number] Allergies Active Allergy Reactions Criticality Noted Date [...] 5 05/04/20 24 Active Vitamin D (Ergocalciferol) 03411 UNIT Oral Capsule Take 50,000 Units by mouth once a week. 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 Cerebral atrophy 09/30/2023 Left sided lacunar infarction 09/30/2023 Spinal stenosis of cervical region 09/30/2023 Coronary artery disease invo lving [place] coronary artery of [place] heart without angina pectoris 09/30/2023 Pulmonary nodules [...] on file Not on file Not on hand filer balance wheel Not on file Not on file Not [...] Progress Notes * Kori Quezada, Community Health Investment Recovery Technician - 06/01/2024 2:49 PM EST Telemedicine visit: No Community Health Investment Recovery Technician (SOREN) documentation: [facility] outbound call to patient per Spoke with spouse patient was sleeping Denies falls Pain in buttocks pretty bad taking aleve it is not touching it Weakness in legs Patient had one day of PT/OT Denies headaches Restarted treatments for brain cancer, when she went to [place] [facility] Kori Quezada [facility] Community Health Worker Call or Text- [phone] documented in this encounter Plan of Treatment Upcoming Encounters Date Type Department Care Team (Late st Contact Info) Description 06/07/2024 11:20 AM EST Office Visit [facility] [address] [place] [phone] Martin Solorio MD [address] [place] [address] 06/08/2024 9:45 AM EST Pharmacy Pharmacy Hematology Oncology [facility] [address] [place] [address] [facility], [facility] Clinic Hem/Onc [address] [place] [address] 06/08/2024 10:00 AM EST Scheduled Telephone Care Coordination and Integration [facility] [address] Kori Quezada, Community Health Investment Recovery Technician [address] [place] [address] 06/15/2024 8:15 AM EST Scheduled Telephone Care Coordination and Integration [address] [place] [address] Kori Quezada, Community Health Investment Recovery Technician [address] [place] [address] 07/05/2024 9:45 AM EST Office Visit Neurosurgery, [place] [address] [place] [address] Clinic, Brain Tumor Multidisciplinary [address] [place] [address] 08/02/2024 8:20 AM EST Office Visit [address] [address] Martin Solorio MD [address] [place] [address] 10/05/2024 12:30 PM EDT Telemedicine Care at Home [address] [place] [address] Kori Dumont PA-C [address] [place] [address] 02/14/2025 8:00 AM EDT Imaging Radiology [facility] [address] [address] Scheduled Procedures Name Priority Associated Diagnoses Date/Ti [...] 09/30/2023 DISCUSS TOBACCO CESSATION (REFER TO SMARTSET #6711) 01/28/2025 01/29/2024 TSH 01/28/2025 01/29/2024, 07/21, 07/25/2023, [...] this encounter Medical Devices Implanted Type Area Test Fixture Designer Device Identifier Shelf Expiration Date Model / Serial / Lot Cover [place] Hole 24mm 421.528 - [id number] Implanted:Qty: 1 on 08/20/2021 by Joni Hand III, MD at OR [facility] [place] Right: Head SYNTHES MAXILLOFACIAL 421.528 / / Plate Y Ti Lo Db 6h 21 421.517 - [id number] Implanted:Qty: 1 on 08/20/2021 by Joni Hand III, MD at OR [facility] Right: Head SYNTHES MAXILLOFACIAL 421.517 / / Screw Ti Lo Pro Sd 4mm 400.834 - [id number] Implanted:Qty: 10 on 08/20/2021 by Joni Hand III, MD at OR [facility] [place] Right: Head SYNTHES MAXILLOFACIAL 400.834 / / Cement Hydroset Injectable 5cc - [id number] Implanted:Qty: 1 on 03/03/2024 by Joni Hand III, MD at OR [facility] [place] Left: Head SUZANNA [id number] 09/19/2025 [id number] / / [id number] Cover Bur Hol Ti Lo 17 421.527 - [id number] Implanted:Qty: 1 on 03/03/2024 by Joni Hand III, MD at OR [facility] Left: Head SYNTHES MAXILLOFACIAL 421.527 / / Plate Ti Lo Pro Str 2h 421.502 - [id number] Implanted:Qty: 2 on 03/03/2024 by Joni Hand III, MD at OR [facility] [place] Left: Head SYNTHES MAXILLOFACIAL 421.502 / / Screw 4mm Ti Low Pro Sdrill - [id number] Implanted:Qty: 7 on 03/03/2024 by Joni Hand III, MD at OR [facility] Left: Head SYNTHES MAXILLOFACIAL 400.834E / / [...] and were consensually agreed upon. Care Teams Business Development Specialist Relationship Specialty Start Date End Date Martin Solorio MD [address] [place] [address] PCP - General Family Medicine 02/20/21 documented as of this encounter
--- OUTSIDE RECORDS SUMMARY | 2024-07-06 15:57 | External Medical Summary | Summary of Care ---
Author Name Unknown Organization [facility] Address [address] [place] [address] Phone [phone] Care Team Providers Care Plate Filler Name Role Phone Martin Solorio MD Primary Care Provider [phone] Reason for Visit * Reason Onset Date Comments Forms Request 05/11/2024 [employer] Encounter Details Date Type Department Care Team (Late st Contact Info) Description 05/11/2024 Telephone Hematology/Oncology [facility] [address] [place] [phone] Benja Watkins MD [address] [place] [address] Forms Request ([employer]) Allergies Active Allergy Reactions Criticality Noted Date Comments Erythromycin 08/15/1997 seizures documented as of this encounter (statuses as of 05/19/2024) Medications Medication Sig Dispensed Refills Start Date [...] before bedtime. 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 Cerebral atrophy 09/30/2023 Left sided lacunar infarction 09/30/2023 Spinal stenosis of cervical region 09/30/2023 Coronary artery disease invo lving [place] coronary artery of [place] heart without angina pectoris 09/30/2023 Pulmonary nodules [...] as of this encounter (statuses as of 05/19/2024) Resolved Problems Problem Noted Date Diagnosed Date [...] as of this encounter (statuses as of 05/19/2024) Immunizations Name Administration Dates Next Due COVID-19, [...] Telephone Encounter - Malou Mejía LPN - 05/19/2024 10:34 AM EDT Fax received from [employer], requesting duplicate form be filled out. Same request as from 05/11/2024. Will refax completed form from 05/11/2024 with attached records to Attn: [id number], LTD Claim Operations at [phone]. * Telephone Encounter - Malou Mejía LPN - 05/13/2024 12:16 PM EDT Form placed in out going mail to patient's address on file. * Telephone Encounter - Bj Lara RN - 05/12/2024 8:18 AM EDT Called patients back, no answer, LMOM advising we would be sending a copy via mail tomorrowand will leave a copy at the front end driver for patients to quill picking machine operator unless he prefers it to be e-mailed. Left return # to advise our office. Keron LEWIS, please mail copy of disability paperwork to patient. Thanks. * Telephone Encounter - Andria Key OSA - 05/11/2024 4:33 PM EDT Patient's called, said he would like a copy and was wondering if it could be sent to them through the mail. Patient is currently admitted into the hospital. Verified address on file is correct. Thank you. * Telephone Encounter - Malou Mejía LPN - 05/11/2024 11:27 AM EDT Attempted to contact patient, no voicemail, sounded as if someone answered, but unable to speak with patient or leave a voicemail. Will attempt again at a later time. My G sent. Calling to ask if patient wants a copy of her Disability form. * Telephone Encounter - Malou Mejía LPN - 05/11/2024 8:08 AM EDT Form completed and signed, will fax to [facility] attn: Alvina Hernandez, at [phone]. Confirmation page will be scanned in with form. * Telephone Encounter - Malou Mejía LPN - 05/11/2024 7:35 AM EDT My G sent documented in this encounter Plan of Treatment Upcoming Encounters Date Type Department Care Team (Late st Contact Info) Description 06/07/2024 11:20 AM EST Office Visit [facility] [address] [place] [address] Martin Solorio MD [address] [place] [address] 06/08/2024 9:45 AM EST Pharmacy Pharmacy Hematology Oncology [facility] [place] [facility], [place] [address] [place] [address] [facility] Hem/[place]c [facility] [place] [address] 07/05/2024 9:45 AM EST Office Visit Neurosurgery, [place] [address] [place] [address] Clinic, Brain Tumor Multidisciplinary [facility] [place] [address] 08/02/2024 8:20 AM EST Office Visit [facility] [address] [place] [address] Martin Solorio MD [address] [place] [address] 10/05/2024 12:30 PM EDT Telemedicine Care at Home [address] [place] [address] Kori Dumont PA-C [address] [place] [address] 02/14/2025 8:00 AM EDT Imaging Radiology [address], [place] [address] [facility] [place] [address] Scheduled Procedures Name Priority Associated Diagnoses Date/Ti [...] this encounter Medical Devices Implanted Type Area Core Java Engineer Device Identifier Shelf Expiration Date Model / Serial / Lot Cover Nilda Hole 24mm 421.528 - [id number] Implanted:Qty: 1 on 08/20/2021 by Joni Hand III, MD at OR [facility] [place] Right: Head SYNTHES MAXILLOFACIAL 421.528 / / Plate Y Ti Lo Db 6h 21 421.517 - [id number] Implanted:Qty: 1 on 08/20/2021 by Joni Hand III, MD at OR [facility] [place] Right: Head SYNTHES MAXILLOFACIAL 421.517 / / Screw Ti Lo Pro Sd 4mm 400.834 - [id number] Implanted:Qty: 10 on 08/20/2021 by Joni Hand III, MD at OR [facility] [place] Right: Head SYNTHES MAXILLOFACIAL 400.834 / / Cement Hydroset Injectable 5cc - [id number] Implanted:Qty: 1 on 03/03/2024 by Joni Hand III, MD at OR [facility] [place] Left: Head SUZANNA [id number] 09/19/2025 [id number] / / [id number] Cover Bur Hol Ti Lo 17 421.527 - [id number] Implanted:Qty: 1 on 03/03/2024 by Joni Hand III, MD at OR [facility] [place] Left: Head SYNTHES MAXILLOFACIAL 421.527 / / Plate Ti Lo Pro Str 2h 421.502 - [id number] Implanted:Qty: 2 on 03/03/2024 by Joni Hand III, MD at OR [facility] [place] Left: Head SYNTHES MAXILLOFACIAL 421.502 / / Screw 4mm Ti Low Pro Sdrill - [id number] Implanted:Qty: 7 on 03/03/2024 by Joni Hand III, MD at OR [facility] [place] Left: Head SYNTHES [...] and were consensually agreed upon. Care Teams Plate Filler Relationship Specialty Start Date End Date Martin Solorio MD [address] [place], [place] [phone] PCP - General Family Medicine 02/20/21 documented as of this encounter
--- OUTSIDE RECORDS SUMMARY | 2024-07-06 15:57 | External Medical Summary | Summary of Care ---
Author Name Unknown Organization [facility] Address [address] [place] [address] Phone [phone] Care Team Providers Care Dry Cleaner Hand Name Role Phone Martin Solorio MD Primary Care Provider [phone] Encounter Details Date Type Department Care Team (Late st Contact Info) Description 05/25/2024 1:00 PM EST Scheduled Telephone Care Coordination and Integration [address] [place] [address] Kori Quezada, Community Health Grinder Set Up Operator Jig [address] [place], [place] [id number] Allergies Active Allergy Reactions Criticality Noted Date Comments Erythromycin 08/15/1997 seizures documented as of this encounter (statuses as of 05/25/2024) Medications Medication Sig Dispensed Refills Start Date [...] Capsule 5 05/04/2024 Active Vitamin D (Ergocalciferol) 56596 UNIT Oral Capsule Take 50,000 Units by mouth once a week. 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 Cerebral atrophy 09/30/2023 Left sided lacunar infarction 09/30/2023 Spinal stenosis of cervical region 09/30/2023 Coronary artery disease invo lving [place] coronary artery of [place] heart without angina pectoris 09/30/2023 Pulmonary nodules [...] as of this encounter (statuses as of 05/25/2024) Resolved Problems Problem Noted Date Diagnosed Date [...] as of this encounter (statuses as of 05/25/2024) Immunizations Name Administration Dates Next Due COVID-19, [...] of this encounter Progress Notes * Kori Quezada, Community Health Grinder Set Up Operator Jig - 05/25/2024 2:12 PM EST Telemedicine visit: No Community Health Grinder Set Up Operator Jig (SOREN) documentation: [facility] outbound call per Mary Torres RNCM Spoke to spouse Patient has no short term memory Bilateral legs are weak Denies anymore falls Taking aleve for pain Patient has not voiced any complaints of headaches She is taking her cancer treatment pills per spouse He would like everyone to call him due to her short term memory loss Has not started PT/OT yet it has not been coordinated yet Kori Quezada [facility] Community Health Worker Call or Text- [phone] documented in this encounter Plan of Treatment Upcoming Encounters Date Type Department Care Team (Late st Contact Info) Description 06/01/2024 1:00 PM EST Scheduled Telephone Care Coordination and Integration [address] [place] [address] Kori Quezada, Community Health Grinder Set Up Operator Jig [address] [place] [address] 06/07/2024 11:20 AM EST Office Visit [facility] [address] [place] [address] Martin Solorio MD [address] [place], [place] [phone] 06/08/2024 9:45 AM EST Pharmacy Pharmacy Hematology Oncology [address] [address] [facility] Hem/Onc [address] [place] [address] 06/08/2024 10:00 AM EST Scheduled Telephone Care Coordination and Integration [address] [place] [address] Kori Quezada Community Health Grinder Set Up Operator Jig [address] [place] [address] 06/15/2024 8:15 AM EST Scheduled Telephone Care Coordination and Integration [address] [place] [address] Kori Quezada Community Health Grinder Set Up Operator Jig [address] [place] [address] 07/05/2024 9:45 AM EST Office Visit Neurosurgery, [place] [address] [place] [address] Clinic, Brain Tumor Multidisciplinary [address] [place] [address] 08/02/2024 8:20 AM EST Office Visit [facility] [address] [place] [address] Martin Solorio MD [address] [place] [address] 10/05/2024 12:30 PM EDT Telemedicine Care at Home [address] [place] [address] Kori Dumont PA-C [address] [place] [address] 02/14/2025 8:00 AM EDT Imaging Radiology [address] [facility] [place] [address] Scheduled Procedures Name Priority Associated Diagnoses Date/Ti [...] this encounter Medical Devices Implanted Type Area Blackener Device Identifier Shelf Expiration Date Model / Serial / Lot Cover [place] Hole 24mm 421.528 - [id number] Implanted:Qty: 1 on 08/20/2021 by Joni Hand III, MD at [facility] Right: Head SYNTHES MAXILLOFACIAL 421.528 / / Plate Y Ti Lo Db 6h 21 421.517 - [id number] Implanted:Qty: 1 on 08/20/2021 by Joni Hand III, MD [place] [facility] [place] Right: Head SYNTHES MAXILLOFACIAL 421.517 / / Screw Ti Lo Pro Sd 4mm 400.834 - [id number] Implanted:Qty: 10 on 08/20/2021 by Joni Hand III, MD at [place] [facility] [place] Right: Head SYNTHES MAXILLOFACIAL 400.834 / / Cement Hydroset Injectable 5cc - [id number] Implanted:Qty: 1 on 03/03/2024 by Joni Hand III, MD at [place] [facility] [place] Left: Head SUZANNA [id number] 09/19/2025 [id number] / / [id number] Cover Bur Hol Ti Lo 17 421.527 - [id number] Implanted:Qty: 1 on 03/03/2024 by Joni Hand III, MD at [place] [facility] [place] Left: Head SYNTHES MAXILLOFACIAL 421.527 / / Plate Ti Lo Pro Str 2h 421.502 - [id number] Implanted:Qty: 2 on 03/03/2024 by Joni Hand III, MD at [place] [facility] [place] Left: Head SYNTHES MAXILLOFACIAL 421.502 / / Screw 4mm Ti Low Pro Sdrill - [id number] Implanted:Qty: 7 on 03/03/2024 by Joni Hand III, MD at [place] [facility] [place] Left: Head SYNTHES MAXILLOFACIAL 400.834E / / [...] and were consensually agreed upon. Care Teams Dry Cleaner Hand Relationship Specialty Start Date End Date Martin Solorio MD [address] [place] [facility] [place] [address] PCP - General Family Medicine 02/20/21 documented as of this encounter
--- OUTSIDE RECORDS SUMMARY | 2024-07-06 15:57 | External Medical Summary | Summary of Care ---
Author Name Unknown Organization [facility] Address [address] [place] [address] Phone [phone] Care Team Providers Care Care Assistant Name Role Phone Martin Solorio MD Primary Care Provider [phone] Encounter Details Date Type Department Care Team (Late st Contact Info) Description 05/17/2024 Orders Only Outcomes Research Department [address] [place], [place] [id number] Vanessa Huang CHRA MyCode Research Other*[id number] Allergies Active Allergy Reactions Criticality Noted Date Comments Erythromycin 08/15/1997 seizures documented as of this encounter (statuses as of 05/17/2024) Medications Medication Sig Dispensed Refills Start Date [...] as of this encounter (statuses as of 05/17/2024) Active Problems Problem Noted Date Diagnosed Date 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 Cerebral atrophy 09/30/2023 Left sided lacunar infarction 09/30/2023 Spinal stenosis of cervical region 09/30/2023 Coronary artery disease invo lving [place] coronary artery of [place] heart without angina pectoris 09/30/2023 Pulmonary [...] as of this encounter (statuses as of 05/17/2024) Resolved Problems Problem Noted Date Diagnosed Date [...] as of this encounter (statuses as of 05/17/2024) Immunizations Name Administration Dates Next Due COVID-19, [...] 9:45 AM EST Pharmacy Pharmacy Hematology [facility], [address] [address] [facility] Hem/[place] [address] 07/05/2024 9:45 AM EST Office Visit Neurosurgery, [place] [address] [place] [address] Clinic, Brain Tumor Multidisciplinary [address] [place] [address] 08/02/2024 8:20 AM EST Office Visit [facility] [address] [place] [address] Martin Solorio MD [address] [place], [place] [id number] 10/05/2024 12:30 PM EDT Telemedicine Care at Home [address] [place] [address] Kori Dumont PA-C [address] [place], [place] [id number] 02/14/2025 8:00 AM EDT Imaging Radiology [address], [address] [place] [address] Scheduled Orders Name Type Priority Associated Diagnoses Orde r Schedule MYCODE SUBSEQUENT ADULT Lab Routine MyCode Research Other*[id number] Every 6 Months for 2 Occurrences starting 05/17/2024 until 06/06/2025 Scheduled Procedures Name Priority Associated Diagnoses Date/Ti [...] 09/30/2023 DISCUSS TOBACCO CESSATION (REFER TO SMARTSET #[id number]) 01/28/2025 01/29/2024 TSH 01/28/2025 01/29/2024, 07/21, 07/25/2023, [...] this encounter Medical Devices Implanted Type Area Shape Hand Device Identifier Shelf Expiration Date Model / Serial / Lot Cover [place] Hole 24mm 421.528 - [id number] Implanted:Qty: 1 on 08/20/2021 by Joni Hand III, MD at [facility] Right: Head SYNTHES MAXILLOFACIAL 421.528 / / Plate Y Ti Lo Db 6h 21 421.517 - [id number] Implanted:Qty: 1 on 08/20/2021 by Joni Hand III, MD at [place] [facility] Right: Head SYNTHES MAXILLOFACIAL 421.517 / / Screw Ti Lo Pro Sd 4mm 400.834 - [id number] Implanted:Qty: 10 on 08/20/2021 by Joni Hand III, MD at [place] [facility] Right: Head SYNTHES MAXILLOFACIAL 400.834 / / Cement Hydroset Injectable 5cc - [id number] Implanted:Qty: 1 on 03/03/2024 by Joni Hand III, MD at [place] [facility] Left: Head SUZANNA [id number] 09/19/2025 [id number] / / [id number] Cover Bur Hol Ti Lo 17 421.527 - [id number] Implanted:Qty: 1 on 03/03/2024 by Joni Hand III, MD at [place] [facility] Left: Head SYNTHES MAXILLOFACIAL 421.527 / / Plate Ti Lo Pro Str 2h 421.502 - [id number] Implanted:Qty: 2 on 03/03/2024 by Joni Hand III, MD at [place] [facility] Left: Head SYNTHES MAXILLOFACIAL 421.502 / / Screw 4mm Ti Low Pro Sdrill - [id number] Implanted:Qty: 7 on 03/03/2024 by Joni Hand III, MD at [place] [facility] Left: Head SYNTHES MAXILLOFACIAL 400.834E / / documented as of this encounter Visit Diagnoses Diagnosis MyCode Research Other*[id number] Screening mammogram for breast cancer documented in [...] and were consensually agreed upon. Care Teams Care Assistant Relationship Specialty Start Date End Date Martin Solorio MD [address] [facility] [place] [address] PCP - General Family Medicine 02/20/21 documented as of this encounter
--- OUTSIDE RECORDS SUMMARY | 2024-07-06 15:57 | External Medical Summary | Summary of Care ---
Author Name Unknown Organization [facility] Address [address] [place] [address] Phone [phone] Care Team Providers Care Breaker Layer Name Role Phone Martin Solorio MD Primary Care Provider [phone] Reason for Visit * Reason Onset Date Comments After Hours Call 05/16/2024 Encounter Details Date Type Department Care Team (Late st Contact Info) Description 05/16/2024 Telephone Family Practice [facility] [address] [place] [address] Abi Turcios CRNP [address] [place] [address] After Hours Call Allergies Active Allergy Reactions Criticality Noted Date Comments Erythromycin 08/15/1997 seizures documented as of this encounter (statuses as of 05/16/2024) Medications Medication Sig Dispensed Refills Start Date [...] as of this encounter (statuses as of 05/16/2024) Active Problems Problem Noted Date Diagnosed Date [...] as of this encounter (statuses as of 05/16/2024) Resolved Problems Problem Noted Date Diagnosed Date [...] as of this encounter (statuses as of 05/16/2024) Immunizations Name Administration Dates Next Due COVID-19, [...] encounter Miscellaneous Notes * Telephone Encounter - Abi Turcios CRNP - 05/16/2024 2:22 PM EDT After hours call- April from [facility] home health- patient requests home health start on Friday 05/18. Verbal order given per patient request. Marika, MSN, MARÍA ELENA [facility] documented in this encounter Plan of Treatment Upcoming Encounters Date Type Department Care Team (Late st Contact Info) Description 05/19/2024 10:00 AM EDT Office Visit [place] [address] [place] [phone] November, Derek Tobar MD [address], [place] [phone] 06/08/2024 9:45 AM EST Pharmacy [facility] [place] [address] [place] [address] [facility] Clinic Hem/[place]c [facility] [place] [address] 07/05/2024 9:45 AM EST Office Visit Neurosurgery, [address] [address] Clinic, Brain Tumor Multidisciplinary [facility] [place] [address] 08/02/2024 8:20 AM EST Office Visit [place] [address] [place] [phone] Martin Solorio MD [address] [place] [address] 10/05/2024 12:30 PM EDT Telemedicine Care at Home [address] [place] [address] Kori Dumont PA-C [address] [place] [address] 02/14/2025 8:00 AM EDT Imaging Radiology [address], [address] [place] [address] Scheduled Procedures Name Priority Associated Diagnoses Date/Ti [...] this encounter Medical Devices Implanted Type Area Turntable Worker Device Identifier Shelf Expiration Date Model / Serial / Lot Cover [place] Hole 24mm 421.528 - [id number] Implanted:Qty: 1 on 08/20/2021 by Joni Hand III, MD at [place] [facility] Right: Head SYNTHES MAXILLOFACIAL 421.528 / / Plate Y Ti Lo Db 6h 21 421.517 - [id number] Implanted:Qty: 1 on 08/20/2021 by Joni Hand III, MD at [place] [facility] Right: Head SYNTHES MAXILLOFACIAL 421.517 / / Screw Ti Lo Pro Sd 4mm 400.834 - [id number] Implanted:Qty: 10 on 08/20/2021 by Joni Hand III, MD at [place] [facility] Right: Head SYNTHES MAXILLOFACIAL 400.834 / / Cement Hydroset Injectable 5cc - [id number] Implanted:Qty: 1 on 03/03/2024 by Joni Hand III, MD at [place] [facility] Left: Head SUZANNA [id number] 09/19/2025 [id number] / / [id number] Cover Bur Hol Ti Lo 17 421.527 - [id number] Implanted:Qty: 1 on 03/03/2024 by Joni Hand III, MD at [place] [facility] Left: Head SYNTHES MAXILLOFACIAL 421.527 / / Plate Ti Lo Pro Str 2h 421.502 - [id number] Implanted:Qty: 2 on 03/03/2024 by Joni Hand III, MD at [place] [facility] Left: Head SYNTHES MAXILLOFACIAL 421.502 / / Screw 4mm Ti Low Pro Sdrill - [id number] Implanted:Qty: 7 on 03/03/2024 by Joni Hand [...] and were consensually agreed upon. Care Teams Breaker Layer Relationship Specialty Start Date End Date Martin Solorio MD [address] [facility] [place] [address] PCP - General Family Medicine 02/20/21 documented as of this encounter
--- OUTSIDE RECORDS SUMMARY | 2024-07-06 15:57 | External Medical Summary | Summary of Care ---
Author Name Unknown Organization [facility] Address [address] [place] [address] Phone [phone] Care Team Providers Care Chief Projectionist Name Role Phone Martin Solorio MD Primary Care Provider [phone] Reason for Visit * Reason Onset Date Comments [facility]: Engagement 05/13/2024 Encounter Details Date Type Department Care Team (Late st Contact Info) Description 05/13/2024 Telephone [facility] [place] [address] [place] [address] June Nair OSA [address] [place] [address] [facility]: Engagement Allergies Active Allergy Reactions Criticality Noted Date Comments Erythromycin 08/15/1997 seizures documented as of this encounter (statuses as of 05/13/2024) Medications Medication Sig Dispensed Refills Start Date [...] as of this encounter (statuses as of 05/13/2024) Active Problems Problem Noted Date Diagnosed Date 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 Cerebral atrophy 09/30/2023 Left sided lacunar infarction 09/30/2023 Spinal stenosis of cervical region 09/30/2023 Coronary artery disease invo lving [place] coronary artery of [place] heart without angina pectoris 09/30/2023 Pulmonary nodules [...] as of this encounter (statuses as of 05/13/2024) Resolved Problems Problem Noted Date Diagnosed Date [...] as of this encounter (statuses as of 05/13/2024) Immunizations Name Administration Dates Next Due COVID-19, [...] Miscellaneous Notes * Telephone Encounter - Elizabeth Courtney RN - 05/13/2024 11:17 AM EDT Call received from Radha at [facility]. States that she spoke to the pt and discussed [facility] programwith her and pt is agreeable to enrollment in [facility] program. Made Radha aware that [facility] outreach to the this am who declined appt. Radha states that the pt'shusband was confused but she is agreeable to [facility]. Radha requesting [facility] reach out again to Ida at [phone] to set up appt. Pt to dc home from SNF tomorrow. * Telephone Encounter - June Nair OSA - 05/13/2024 10:18 AM EDT Outreach to patient for [facility] scheduling. Patient declined appointment scheduling at this time documented in this encounter Plan of Treatment Upcoming Encounters Date Type Department Care Team (Late st Contact Info) Description 05/19/2024 10:00 AM EDT Office Visit [place] [address] [place] [phone] NovemberDerek MD [address] [place], [place] [phone] 06/08/2024 9:45 AM EST [facility] [address] [place] [address] [facility] [place] [facility] Hem/Onc [address] [place] [address] 07/05/2024 9:45 AM EST Office Visit Neurosurgery, [place] [address] [place] [address] Clinic, Brain Tumor Multidisciplinary [address] [place] [address] 08/02/2024 8:20 AM EST Office Visit [facility] [address] [place] [phone] Martin Solorio MD [address] [place] [address] 10/05/2024 12:30 PM EDT Telemedicine Care at Home [address] [place] [address] Kori Dumont PA-C [address] [place] [address] 02/14/2025 8:00 AM EDT Imaging Radiology [address], [place] [address] [facility] [place] [address] Scheduled Procedures Name Priority Associated Diagnoses Date/Ti [...] this encounter Medical Devices Implanted Type Area Training Associate Device Identifier Shelf Expiration Date Model / Serial / Lot Cover [place] Hole 24mm 421.528 - [id number] Implanted:Qty: 1 on 08/20/2021 by Joni Hand III, MD at OR [facility] Right: Head SYNTHES MAXILLOFACIAL 421.528 / / Plate Y Ti Lo Db 6h 21 421.517 - [id number] Implanted:Qty: 1 on 08/20/2021 by Joni Hand III, MD at OR [facility] Right: Head SYNTHES MAXILLOFACIAL 421.517 / / Screw Ti Lo Pro Sd 4mm 400.834 - [id number] Implanted:Qty: 10 on 08/20/2021 by Joni Hand III, MD at OR [facility] Right: Head SYNTHES MAXILLOFACIAL 400.834 / / Cement Hydroset Injectable 5cc - [id number] Implanted:Qty: 1 on 03/03/2024 by Joni Hand III, MD at OR [facility] Left: Head SUZANNA [id number] 09/19/2025 [id number] / / [id number] Cover Bur Hol Ti Lo 17 421.527 - [id number] Implanted:Qty: 1 on 03/03/2024 by Joni Hand III, MD at OR [facility] Left: Head SYNTHES MAXILLOFACIAL 421.527 / / Plate Ti Lo Pro Str 2h 421.502 - [id number] Implanted:Qty: 2 on 03/03/2024 by Joni Hand III, MD at OR [facility] Left: Head SYNTHES MAXILLOFACIAL 421.502 / / Screw 4mm Ti Low Pro Sdrill - [id number] Implanted:Qty: 7 on 03/03/2024 by Joni Hand III, MD at OR [facility] Left: Head SYNTHES MAXILLOFACIAL 400.834E / / [...] and were consensually agreed upon. Care Teams Chief Projectionist Relationship Specialty Start Date End Date Martin Solorio MD [address] [facility] [place] [address] PCP - General Family Medicine 02/20/21 documented as of this encounter
--- OUTSIDE RECORDS SUMMARY | 2024-07-06 15:57 | External Medical Summary | Summary of Care ---
Author Name Unknown Organization [facility] Address [address] [place] [address] Phone [phone] Care Team Providers Care Tail Board Worker Name Role Phone Martin Solorio MD Primary Care Provider [phone] Reason for Visit * Reason Onset Date Comments Home Health 05/18/2024 Med questions Encounter Details Date Type Department Care Team (Late st Contact Info) Description 05/18/2024 Telephone [facility] [address] [place] [address] Martin Solorio MD [address] [place] [address] Home Health (Med questions) Allergies Active Allergy Reactions Criticality Noted Date [...] Capsule 5 05/04/2024 Active Vitamin D (Ergocalciferol) 00894 UNIT Oral Capsule Take 50,000 Units by mouth once a week. 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 * Telephone Encounter - Emilie Darling LPN - 05/18/2024 11:56 AM EDT HH Admission/Start of Care Admission/Start of Care: April FRIED, Calling from: [facility] Patient was Admitted to: [facility] , for: fracture of left pubic ring with hemorrhage from 04/28 to 05/14 Referral ordered by: Dr. Tesfaye Referral received for: Group Home, PT, and OT Start of care completed on: 05/18/24 Report/Concerns of:Medication Related Vitals: T 98. P 72 RR 16 BP 106/70 SP O2 97% Lung sounds - clear. No SOB. Pain - 11/27 Narrative: FARIHA Chen did patients start of care admission - nursing will focus on pain management, fall prevention and see patient weekly.. Med list from [facility] --Tylenol 325mg (2 tab) every 6 hours. Vit D 50k weekly for 8 weeks. The patient has Tylenol 500mg in her home. April advised that patient take 2 tabs BID daily. PLEASE ADVISE WHAT DOSE AND HOW OFTEN THE PATIENT SHOULD TAKE THE TYLENOL 500MG? D2 50,000 unit prescription wasn't sent to the patients pharmacy at discharge. PLEASE ADVISE IF YOU WANT HER TO CONTINUE AND SEND A SCRIPT. --PENDED Patient's is picking up the Oxycodone today, but Ida doesn't plan to use unless pain is severe. Next PT visit(s) on this week They will call with any updates or additional concerns from the upcoming HH visit. Last Office Visit: 03/10/2024 Has patient been scheduled or seen in the office for a follow up visit: Yes- on06/07/24 Advised that orders will be signed by Dr. Solorio and to fax to the office for signature. Call back Kwame () with advice or orders at [phone] ((TYLENOL INSTRUCTIONS AND D2 50,000) Please fax TYLENOL order to: [facility] Home Health documented in this encounter Plan of Treatment Upcoming Encounters Date Type Department Care Team (Late st Contact Info) Description 06/07/2024 11:20 AM EST Office Visit [place] [address] [place] [phone] Martin Solorio MD [address] [place], [place] [phone] 06/08/2024 9:45 AM EST [facility]acy [facility] [place] [address] [place] [address] [facility] Hem/[facility]c [facility] [place] [address] 07/05/2024 9:45 AM EST Office Visit Neurosurgery, [address] [address] Clinic, Brain Tumor Multidisciplinary [facility] [place] [address] 08/02/2024 8:20 AM EST Office Visit [place] [address] [place] [phone] Martin Solorio MD [address] [place], [place] [phone] 10/05/2024 12:30 PM EDT Telemedicine Care at Home [address] [place] [address] Kori uDmont PA-C [address] [place] [address] 02/14/2025 8:00 AM EDT Imaging Radiology [address], [address] [place] [address] Scheduled Procedures Name Priority Associated Diagnoses Date/Ti [...] this encounter Medical Devices Implanted Type Area Shank Skinner Device Identifier Shelf Expiration Date Model / Serial / Lot Cover [place] Hole 24mm 421.528 - [id number] Implanted:Qty: 1 on 08/20/2021 by Joni Hand III, MD at [place] [facility] Right: Head SYNTHES MAXILLOFACIAL 421.528 / / Plate Y Ti Lo Db 6h 21 421.517 - [id number] Implanted:Qty: 1 on 08/20/2021 by Joni Hand III, MD at [place] [facility] Right: Head SYNTHES MAXILLOFACIAL 421.517 / / Screw Ti Lo Pro Sd 4mm 400.834 - [id number] Implanted:Qty: 10 on 08/20/2021 by Joni Hand III, MD at [place] [facility] Right: Head SYNTHES MAXILLOFACIAL 400.834 / / Cement Hydroset Injectable 5cc - [id number] Implanted:Qty: 1 on 03/03/2024 by Joni Hand III, MD at OR [facility] Left: Head SUZANNA [id number] 09/19/2025 [id number] / / [id number] Cover Bur Hol Ti Lo 17 421.527 - [id number] Implanted:Qty: 1 on 03/03/2024 by Joni Hand III, MD at OR [facility] Left: Head SYNTHES MAXILLOFACIAL 421.527 / / Plate Ti Lo Pro Str 2h 421.502 - [id number] Implanted:Qty: 2 on 03/03/2024 by Joni Hand III, MD at OR [facility] Left: Head SYNTHES MAXILLOFACIAL 421.502 / / Screw 4mm Ti Low Pro Sdrill - [id number] Implanted:Qty: 7 on 03/03/2024 by Joni Hand III, MD at OR [facility] Left: Head SYNTHES [...] and were consensually agreed upon. Care Teams Tail Board Worker Relationship Specialty Start Date End Date Martin Solorio MD [address] [facility] [place] [id number] PCP - General Family Medicine 02/20/21 documented as of this encounter
--- OUTSIDE RECORDS SUMMARY | 2024-07-06 15:57 | External Medical Summary | Summary of Care ---
Author Name Unknown Organization [facility] Address [address] [place] [address] Phone [phone] Care Team Providers Care Senior Accounting Specialist Name Role Phone Martin Solorio MD Primary Care Provider Reason for Visit * Reason Onset Date Comments Home Health 05/20/2024 PT and OT unable to reach patient - extending to 05/29 Encounter Details Date Type Department Care Team (Late st Contact Info) Description 05/20/2024 Telephone [facility] [address] [place] [address] Martin Solorio MD [address] [place] [address] Home Health (PT and OT unable to reach pat... Allergies Active Allergy Reactions Criticality Noted Date Comments Erythromycin 08/15/1997 seizures documented as of this encounter (statuses as of 05/20/2024) Medications Medication Sig Dispensed Refills Start Date [...] Capsule 5 05/04/2024 Active Vitamin D (Ergocalciferol) 85163 UNIT Oral Capsule Take 50,000 Units by mouth once a week. 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 Cerebral atrophy 09/30/2023 Left sided lacunar infarction 09/30/2023 Spinal stenosis of cervical region 09/30/2023 Coronary artery disease invo lving [place] coronary artery of [place] heart without angina pectoris 09/30/2023 Pulmonary nodules [...] as of this encounter (statuses as of 05/20/2024) Resolved Problems Problem Noted Date Diagnosed Date [...] as of this encounter (statuses as of 05/20/2024) Immunizations Name Administration Dates Next Due COVID-19, [...] Telephone Encounter - Emilie Darling LPN - 05/20/2024 1:46 PM EDT HH PT/OT/ST Eval Start of Care/Continuation Efrain PT, Calling from: [facility] PT and OT have attempted to contact the patient to set up eval for a plan of care. Patient doesn't answer or hangs up the phone. Efrain is putting a new order for them to try contact the patient 05/23-05/29 for HH visit. FYI documented in this encounter Plan of Treatment Upcoming Encounters Date Type Department Care Team (Late st Contact Info) Description 06/07/2024 11:20 AM EST Office Visit [facility] [address] [place] [address] Martin Solorio MD [address] [place], [place] [phone] 06/08/2024 9:45 AM EST Pharmacy Pharmacy Hematology Oncology [facility] [address] [place] [address] [facility] Hem/Onc [address] [place] [address] 07/05/2024 9:45 AM EST Office Visit Neurosurgery, [place] [address] [place] [address] Clinic, Brain Tumor Multidisciplinary [address] [place] [address] 08/02/2024 8:20 AM EST Office Visit [facility] [address] [place] [phone] Martin Solorio MD [address] [place] [address] 10/05/2024 12:30 PM EDT Telemedicine Care at Home [address] [place] [address] Kori Dumont PA-C [address] [place], [place] [address] 02/14/2025 8:00 AM EDT Imaging Radiology [address] [place] [address] Scheduled Procedures Name Priority Associated Diagnoses [...] 09/30/2023 DISCUSS TOBACCO CESSATION (REFER TO SMARTSET #4487) 01/28/2025 01/29/2024 TSH 01/28/2025 01/29/2024, 07/21, 07/25/2023, [...] this encounter Medical Devices Implanted Type Area Hydration Plant Operator Device Identifier Shelf Expiration Date Model / Serial / Lot Cover Nilda Hole 24mm 421.528 - [id number] Implanted:Qty: 1 on 08/20/2021 by Joni Hand III, MD at [place] [facility] Right: Head SYNTHES MAXILLOFACIAL 421.528 / / Plate Y Ti Lo Db 6h 21 421.517 - [id number] Implanted:Qty: 1 on 08/20/2021 by Joni Hand III, MD at [place] [facility] Right: Head SYNTHES MAXILLOFACIAL 421.517 / / Screw Ti Lo Pro Sd 4mm 400.834 - [id number] Implanted:Qty: 10 on 08/20/2021 by Joni Hand III, MD at [place] [facility] Right: Head SYNTHES MAXILLOFACIAL 400.834 / / Cement Hydroset Injectable 5cc - [id number] Implanted:Qty: 1 on 03/03/2024 by Joni Hand III, MD at [place] [facility] Left: Head SUZANNA [id number] 09/19/2025 [id number] / / [id number] Cover Bur Hol Ti Lo 17 421.527 - [id number] Implanted:Qty: 1 on 03/03/2024 by Joni Hand III, MD at [place] [facility] Left: Head SYNTHES MAXILLOFACIAL 421.527 / / Plate Ti Lo Pro Str 2h 421.502 - [id number] Implanted:Qty: 2 on 03/03/2024 by Joni Hand III, MD at [place] [facility] Left: Head SYNTHES MAXILLOFACIAL 421.502 / / Screw 4mm Ti Low Pro Sdrill - [id number] Implanted:Qty: 7 on 03/03/2024 by Joni Hand III, MD at [place] [facility] Left: Head SYNTHES MAXILLOFACIAL 400.834E / / [...] were consensually agreed upon. Care Teams Senior Accounting Specialist Relationship Specialty Start Date End Date Martin Solorio MD [address] [facility] [place] [address] PCP - General Family Medicine 02/20/21 documented as of this encounter
--- OUTSIDE RECORDS SUMMARY | 2024-07-06 15:57 | External Medical Summary | Summary of Care ---
Author Name Unknown Organization [facility] Address [address] [place] [address] Phone [phone] Care Team Providers Care Clinic Office Manager Name Role Phone Martin Solorio MD Primary Care Provider [phone] Reason for Visit * Reason Onset Date Comments Forms Request 05/11/2024 Aflac Encounter Details Date Type Department Care Team (Late st Contact Info) Description 05/11/2024 Telephone Hematology/Oncology [facility] [address] [place] [phone] Benja Watkins MD [address] [place] [address] Forms Request (Aflac) Allergies Active Allergy Reactions [...] region 09/30/2023 Coronary artery disease invo lving [place] coronary artery of [place] heart without angina pectoris 09/30/2023 Pulmonary nodules [...] will leave a copy at the front office representative for patients to poultry picking machine tender unless he prefers it to be e-mailed. [...] Form completed and signed, will fax to Malina attn: Alvina Hernandez, at [phone]. Confirmation page will be scanned in with form. * Telephone Encounter - Malou Mejía LPN - 05/11/2024 7:35 AM EDT My G sent documented in this encounter Plan of Treatment Upcoming Encounters Date Type Department Care Team (Late st Contact Info) Description 05/19/2024 10:00 AM EDT Office Visit [facility] [address] [place] [phone] Derek Greenberg MD [address] [place] [address] 06/08/2024 9:45 AM EST Pharmacy Pharmacy Hematology Oncology [facility], [place] [address] [place] [address] [facility] Hem/Onc [address] [place] [address] 07/05/2024 9:45 AM EST Office Visit Neurosurgery, [place] [address] [place] [address] Clinic, Brain Tumor Multidisciplinary [address] [place] [address] 08/02/2024 8:20 AM EST Office Visit [facility] [address] [place] [facility] [place] [phone] Martin Solorio MD [address] [place] [address] 10/05/2024 12:30 PM EDT Telemedicine Care at Home [address] [place] [address] Kori Dumont PA-C [address] [place] [address] 02/14/2025 8:00 AM EDT Imaging Radiology [address], [address] [place] [address] Scheduled Procedures Name Priority Associated Diagnoses Date/Ti [...] 09/30/2023 DISCUSS TOBACCO CESSATION (REFER TO SMARTSET #3293) 01/28/2025 01/29/2024 TSH 01/28/2025 01/29/2024, 07/21, 07/25/2023, [...] this encounter Medical Devices Implanted Type Area Electrical Appliance Preparer Device Identifier Shelf Expiration Date Model / Serial / Lot Cover [place] Hole 24mm 421.528 - [id number] Implanted:Qty: 1 on 08/20/2021 by Joni Hand III, MD at [place] [facility] Right: Head SYNTHES MAXILLOFACIAL 421.528 / / Plate Y Ti Lo Db 6h 21 421.517 - [id number] Implanted:Qty: 1 on 08/20/2021 by Joni Hand III, MD at [place] [facility] Right: Head SYNTHES MAXILLOFACIAL 421.517 / / Screw Ti Lo Pro Sd 4mm 400.834 - [id number] Implanted:Qty: 10 on 08/20/2021 by Joni Hand III, MD at [place] [facility] Right: Head SYNTHES MAXILLOFACIAL 400.834 / / Cement Hydroset Injectable 5cc - [id number] Implanted:Qty: 1 on 03/03/2024 by Joni Hand III, MD at [place] [facility] Left: Head SUZANNA [id number] 09/19/2025 [id number] / / [id number] Cover Bur Hol Ti Lo 17 421.527 - [id number] Implanted:Qty: 1 on 03/03/2024 by Joni Hand III, MD at [place] [facility] Left: Head SYNTHES MAXILLOFACIAL 421.527 / / Plate Ti Lo Pro Str 2h 421.502 - [id number] Implanted:Qty: 2 on 03/03/2024 by Joni Hand III, MD at [place] [facility] Left: Head SYNTHES MAXILLOFACIAL 421.502 / / Screw 4mm Ti Low Pro Sdrill - [id number] Implanted:Qty: 7 on 03/03/2024 by Joni Hand III, MD at [facility] Left: Head SYNTHES MAXILLOFACIAL 400.834E / [...] and were consensually agreed upon. Care Teams Clinic Office Manager Relationship Specialty Start Date End Date Martin Solorio MD [address] [place] [address] PCP - General Family Medicine 02/20/21 documented as of this encounter
--- OUTSIDE RECORDS SUMMARY | 2024-07-06 15:57 | External Medical Summary | Summary of Care ---
Author Name Unknown Organization [facility] Address [address] [place] [address] Phone [phone] Care Team Providers Care Compliance Representative Name Role Phone Martin Solorio MD Primary Care Provider [phone] Encounter Details Date Type Department Care Team (Late st Contact Info) Description 05/25/2024 1:00 PM EST Scheduled Telephone Care Coordination and Integration [address] [place] [address] Kori Quezada, Community Health Summer Sessions Director [address] [place], [place] [phone] Allergies Active Allergy Reactions Criticality Noted Date [...] Capsule 5 05/04/2024 Active Vitamin D (Ergocalciferol) 54837 UNIT Oral Capsule Take 50,000 Units by mouth once a week. 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 Cerebral atrophy 09/30/2023 Left sided lacunar infarction 09/30/2023 Spinal stenosis of cervical region 09/30/2023 Coronary artery disease invo lving [place] coronary artery of [place] heart without angina pectoris 09/30/2023 Pulmonary nodules [...] Progress Notes * Kori Quezada, Community Health Summer Sessions Director - 05/25/2024 2:12 PM EST Telemedicine visit: No Community Health Summer Sessions Director (SOREN) documentation: CHW outbound call per Mary [...] has not been coordinated yet Kori Quezada [facility] Community Health Worker Call or Text- [phone] documented in this encounter Plan of Treatment Upcoming Encounters Date Type Department Care Team (Late st Contact Info) Description 06/01/2024 1:00 PM EST Scheduled Telephone Care Coordination and Integration [address] [place] [address] Kori Quezada, Community Health Summer Sessions Director [address] [place] [address] 06/07/2024 11:20 AM EST Office Visit [facility] [address] [place] [address] Martin Solorio MD [address] [place], [place] [address] 06/08/2024 9:45 AM EST Pharmacy Pharmacy Hematology Oncology [address] [address] [facility] Clinic Hem/Onc [address] [place] [address] 06/08/2024 10:00 AM EST Scheduled Telephone Care Coordination and Integration [address] [place] [address] Kori Quezada Community Health Summer Sessions Director [address] [place] [address] 06/15/2024 8:15 AM EST Scheduled Telephone Care Coordination and Integration [address] [place] [address] Kori Quezada Community Health Summer Sessions Director [address] [place] [address] 07/05/2024 9:45 AM EST Office Visit Neurosurgery, [place] [address] [place] [address] Clinic, Brain Tumor Multidisciplinary [address] [place] [address] 08/02/2024 8:20 AM EST Office Visit [facility] [address] [place] [address] Martin Solorio MD [address] [place] [address] 10/05/2024 12:30 PM EDT Telemedicine Care at Home [address] [place] [address] Kori Dumont PA-C [address] [place] [address] 02/14/2025 8:00 AM EDT Imaging Radiology [address] 132 [facility] [place] [address] Scheduled Procedures Name Priority Associated Diagnoses Date/Ti [...] this encounter Medical Devices Implanted Type Area Candy Bar Attendant Device Identifier Shelf Expiration Date Model / Serial / Lot Cover [place] Hole 24mm 421.528 - [id number] Implanted:Qty: 1 on 08/20/2021 by Joni Hand III, MD at [facility] Right: Head SYNTHES MAXILLOFACIAL 421.528 / / Plate Y Ti Lo Db 6h 21 421.517 - [id number] Implanted:Qty: 1 on 08/20/2021 by Joni Hand III, MD at [place] [facility] Right: Head SYNTHES MAXILLOFACIAL 421.517 / / Screw Ti Lo Pro Sd 4mm 400.834 - [id number] Implanted:Qty: 10 on 08/20/2021 by Joni Hand III, MD at [place] [facility] Right: Head SYNTHES MAXILLOFACIAL 400.834 / / Cement Hydroset Injectable 5cc - [id number] Implanted:Qty: 1 on 03/03/2024 by Joni Hand III, MD at [place] [facility] Left: Head SUZANNA [id number] 09/19/2025 [id number] / / [id number] Cover Bur Hol Ti Lo 17 421.527 - [id number] Implanted:Qty: 1 on 03/03/2024 by Joni Hand III, MD at [place] [facility] Left: Head SYNTHES MAXILLOFACIAL 421.527 / / Plate Ti Lo Pro Str 2h 421.502 - [id number] Implanted:Qty: 2 on 03/03/2024 by Joni Hand III, MD at [place] [facility] Left: Head SYNTHES MAXILLOFACIAL 421.502 / / Screw 4mm Ti Low Pro Sdrill - [id number] Implanted:Qty: 7 on 03/03/2024 by Joni Hand III, MD at [place] [facility] Left: Head SYNTHES MAXILLOFACIAL 400.834E [...] and were consensually agreed upon. Care Teams Compliance Representative Relationship Specialty Start Date End Date Martin Solorio MD [address] [place] [address] PCP - General Family Medicine 02/20/21 documented as of this encounter
--- OUTSIDE RECORDS SUMMARY | 2024-07-06 15:57 | External Medical Summary | Summary of Care ---
Author Name Unknown Organization [facility] Address [address] [place] [address] Phone [phone] Care Team Providers Care Heating And Cooling Systems Engineer Name Role Phone Martin Solorio MD Primary Care Provider [phone] Reason for Visit * Reason Onset Date Comments [facility]: Engagement 05/13/2024 Encounter Details Date Type Department Care Team (Late st Contact Info) Description 05/13/2024 Telephone [facility] [place] [address] [place] [address] June Nair OSA [address] [place] [address] [facility]: Engagement Allergies [...] 10:18 AM EDT Outreach to patient for [facility] scheduling. Patient declined appointment scheduling at this time documented in this encounter Plan of Treatment Upcoming Encounters Date Type Department Care Team (Late st Contact Info) Description 05/19/2024 10:00 AM EDT Office Visit [facility] [address] [place] [phone] Derek Greenberg MD [address] [place] [address] 06/08/2024 9:45 AM EST Pharmacy Pharmacy [facility]ology [facility] [place] [address] [place] [address] [facility] [place] [place] [facility] Clinic Hem/Onc [address] [place] [address] 07/05/2024 9:45 AM EST Office Visit Neurosurgery, [place] [address] [place] [address] Clinic, Brain Tumor Multidisciplinary [address] [place] [address] 08/02/2024 8:20 AM EST Office Visit [facility] [address] [place] [phone] Martin Solorio MD [address] [place] [address] 10/05/2024 12:30 PM EDT Telemedicine Care at Home [address] [place] [address] Kori Dumont PA-C [address] [place] [address] 02/14/2025 8:00 AM EDT Imaging Radiology [facility] 1st [facility], [address] [place] [address] Scheduled Procedures Name Priority [...] this encounter Medical Devices Implanted Type Area Autocutter Device Identifier Shelf Expiration Date Model / Serial / Lot Cover [place] Hole 24mm 421.528 - [id number] Implanted:Qty: 1 on 08/20/2021 by Joni Hand III, [place] [facility] [place]: Head SYNTHES MAXILLOFACIAL 421.528 / / Plate Y Ti Lo Db 6h 21 421.517 - [id number] Implanted:Qty: 1 on 08/20/2021 by Joni Hand III, MD [place] [facility] Right: Head SYNTHES MAXILLOFACIAL 421.517 / / Screw Ti Lo Pro Sd 4mm 400.834 - [id number] Implanted:Qty: 10 on 08/20/2021 by Joni Hand III, MD at [place] [facility] Right: Head SYNTHES MAXILLOFACIAL 400.834 / / Cement Hydroset Injectable 5cc - [id number] Implanted:Qty: 1 on 03/03/2024 by Joni Hand III, MD [place] [facility] Left: Head SUZANNA [id number] 09/19/2025 [id number] / / [id number] Cover Bur Hol Ti Lo 17 421.527 - [id number] Implanted:Qty: 1 on 03/03/2024 by Joni Hand III, MD at [place] [facility] Left: Head SYNTHES MAXILLOFACIAL 421.527 / / Plate Ti Lo Pro Str 2h 421.502 - [id number] Implanted:Qty: 2 on 03/03/2024 by Joni Hand III, MD at [place] [facility] Left: Head SYNTHES MAXILLOFACIAL 421.502 / / Screw 4mm Ti Low Pro Sdrill - [id number] Implanted:Qty: 7 on 03/03/2024 by Joni Hand III, MD at [place] [facility] Left: Head SYNTHES MAXILLOFACIAL 400.834E / / [...] and were consensually agreed upon. Care Teams Heating And Cooling Systems Engineer Relationship Specialty Start Date End Date Martin Solorio MD [address] [place] [address] PCP - General Family Medicine 02/20/21 documented as of this encounter
--- OUTSIDE RECORDS SUMMARY | 2024-07-06 15:58 | External Medical Summary | Summary of Care ---
Author Name Unknown Organization [facility] Address [address] [place] [address] Phone [phone] Care Team Providers Care Distribution Center Supervisor Name Role Phone Martin Solorio MD Primary Care Provider [phone] Reason for Visit * Reason Onset Date Comments Advice 05/11/2024 Roland pt- Encounter Details Date Type Department Care Team (Late st Contact Info) Description 05/11/2024 Telephone Hematology/Oncology [facility] [address] [place] [address] Services, Scheduling [address] [place] [address] Advice (Roland pt-) Allergies Active Allergy Reactions Criticality Noted Date Comments Erythromycin 08/15/1997 seizures documented as of this encounter (statuses as of 05/12/2024) Medications Medication Sig Dispensed Refills Start Date [...] as of this encounter (statuses as of 05/12/2024) Active Problems Problem Noted Date Diagnosed Date 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 * Telephone Encounter - Beti Madrid OSA - 05/11/2024 4:30 PM EDT Roland pt- I have pt's elizabeth Garcia calling back regarding his pt Judy Garcia "Ida" . Can you take call? Looks as if Malou Alfonzo called pt. Can you please call Kwame back at [phone] . Thank you! documented in this encounter Plan of Treatment Upcoming Encounters Date Type Department Care Team (Late st Contact Info) Description 06/08/2024 9:45 AM EST Pharmacy Pharmacy Hematology Oncology [facility] [place] [address] [place] [address] [facility] [place] Hem/Onc [address] [place] [address] 07/05/2024 9:45 AM EST Office Visit Neurosurgery, [place] [address] [place] [address] Clinic, Brain Tumor Multidisciplinary [address] [place] [address] 08/02/2024 8:20 AM EST Office Visit [facility] [address] [place] [address] Martin Solorio MD [address] [place], [place] [address] 10/05/2024 12:30 PM EDT Telemedicine Care at Home [address] [place] [address] Kori Dumont PA-C [address] [place] [address] 02/14/2025 8:00 AM EDT Imaging Radiology [facility] 1st [facility] [place] [address] [facility] [place] [address] Scheduled Procedures Name Priority Associated Diagnoses Date/Ti [...] 09/30/2023 DISCUSS TOBACCO CESSATION (REFER TO SMARTSET #6751) 01/28/2025 01/29/2024 TSH 01/28/2025 01/29/2024, 07/21, 07/25/2023, [...] encounter Medical Devices Implanted Type Area Electrical Designer Device Identifier Shelf Expiration Date Model / Serial / Lot Cover Nilda Hole 24mm 421.528 - [id number] Implanted:Qty: 1 on 08/20/2021 by Joni Hand III, MD at [place] [facility] Right: Head SYNTHES MAXILLOFACIAL 421.528 / / Plate Y Ti Lo Db 6h 21 421.517 - [id number] Implanted:Qty: 1 on 08/20/2021 by Joni Hand III, MD at [place] [facility] Right: Head SYNTHES MAXILLOFACIAL 421.517 / / Screw Ti Lo Pro Sd 4mm 400.834 - [id number] Implanted:Qty: 10 on 08/20/2021 by Joni Hand III, MD at [place] [facility] Right: Head SYNTHES MAXILLOFACIAL 400.834 / / Cement Hydroset Injectable 5cc - [id number] Implanted:Qty: 1 on 03/03/2024 by Joni Hand III, MD at [place] [facility] Left: Head SUZANNA [id number] 09/19/2025 [id number] / / [id number] Cover Bur Hol Ti Lo 17 421.527 - [id number] Implanted:Qty: 1 on 03/03/2024 by Joni Hand III, MD at [place] [facility] Left: Head SYNTHES MAXILLOFACIAL 421.527 / / Plate Ti Lo Pro Str 2h 421.502 - [id number] Implanted:Qty: 2 on 03/03/2024 by Joni Hand III, MD at OR [facility] Left: Head SYNTHES MAXILLOFACIAL 421.502 / / Screw 4mm Ti Low Pro Sdrill - [id number] Implanted:Qty: 7 on 03/03/2024 by Joni Hand III, MD at [place] [facility] Left: Head SYNTHES MAXILLOFACIAL 400.834E / / [...] and were consensually agreed upon. Care Teams Distribution Center Supervisor Relationship Specialty Start Date End Date Martin Solorio MD [address] [place] [address] PCP - General Family Medicine 02/20/21 documented as of this encounter
--- OUTSIDE RECORDS SUMMARY | 2024-07-06 15:58 | External Medical Summary | Summary of Care ---
Author Name Unknown Organization [facility] Address [address] [place] [address] Phone [phone] Care Team Providers Care Delivery Truck Driver Name Role Phone Martin Solorio MD Primary Care Provider [phone] Reason for Visit * Reason Comments Medication Refill Encounter Details Date Type Department Care Team (Late st Contact Info) Description 05/04/2024 Refill Hematology/Oncology [facility] [address] [facility] [place] [address] Jessica Watkins MD [address] [facility] [address] Malignant melanoma of left lower extremity (HCC) Allergies Active Allergy Reactions Criticality Noted Date Comments Erythromycin 08/15/1997 seizures documented as of this encounter (statuses as of 05/04/2024) Medications Medication Sig Dispensed Refills Start Date [...] every evening. 90 Tablet 3 4 Active Triamcinolone Acetonide 0.1 % External Cream (Aristocort) Apply topically to affected area 2 times a day. To affected area. 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 60 Tablet 5 4 Active Trametinib Dimethyl Sulfoxide 0.5 MG Oral Tablet (Mekinist)Indicati ons:Malignant melanoma of left lower extremity (HCC) Take 3 tablets (1.5mg) by mouth in the morning. 90 Tablet 5 4 Active Dabrafenib Mesylate 75 MG Oral Capsule (Tafinlar) Take 1 Capsule by mouth in the morning and 1 Capsule before bedtime. 60 Capsule 5 4 Active Dabrafenib Mesylate 75 MG Oral Capsule (Tafinlar) Take 1 Capsule by mouth in the morning and 1 Capsule before bedtime. 120 Capsule 5 4 05/04/20 24 Discontinu ed(Refill) Trametinib Dimethyl Sulfoxide 0.5 MG Oral Tablet (Mekinist)Indicati ons:Malignant melanoma of left lower extremity (HCC) Take 3 tablets (1.5mg) by mouth in the morning. 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 (Household - for ages [...] Notes * Telephone Encounter - Geri Farley RPh - 05/04/2024 4:14 PM EDT Signed Prescriptions: Disp Refills Trametinib Dimethyl Sulfoxide 0.5 MG Oral *90 Tab*5 Sig: Take 3 tablets (1.5mg) by mouth in the morning.Authorizing Provider: JESSICA WATKINS User: GERI FARLEY Dabrafenib Mesylate 75 MG Oral Capsule (Ta*60 Cap*5 Sig: Take 1 Capsule by mouth in the morning and 1 Capsule before bedtime.Authorizing Provider: JESSICA WATKINS User: GERI FARLEY * Telephone Encounter - Geri Farley RPh - 05/04/2024 4:13 PM EDT Refill Request EPIC Note Clinical Pharmacy Service (Hematology/Oncology): Refill Request(s) PHYSICIAN ACTION: No Assessment & Plan After reviewing the parameters in order to refill the patient's medication(s), the following was determined: The medication(s), dabrafenib/trametinib, was refilled and no parameters need to be addressed No communication to requesting entity necessary Refill Parameters The following parameters were assessed in order to decide whether or not this refill was appropriate: Refill Parameter Comments If the patient was seen in the last 6 months (12 months for MPN patients) Yes- 02/04/24 If the labs were completed per prescribing information recommendations or provider recommendations Yes - 03/01/24 If the labs were within normal limits or stable at baseline yes If the dose was correct and/or if the prescription sig reflects the current prescribed dose yes If there were any new drug interactions with the patient's oral chemotherapy no If there were any care gaps/baseline labs that need to be addressed no Geri Farley [facility] Ambulatory Clinical Pharmacist | Oral Chemotherapy Clinic [facility] 05/04/2024, 4:14 PM documented in this encounter Plan of Treatment Upcoming Encounters Date Type Department Care Team (Late st Contact Info) Description 06/08/2024 9:45 AM EST Pharmacy Pharmacy Hematology Oncology [facility] [place] [address] [place] [address] [facility] Clinic Hem/Onc [address] [place] [address] 07/05/2024 9:45 AM EST Office Visit Neurosurgery, [place] [address] [place] [address] Clinic, Brain Tumor Multidisciplinary [address] [place] [address] 08/02/2024 8:20 AM EST Office Visit [facility] [address] [place] [address] Martin Solorio MD [address], [place] [address] 10/05/2024 12:30 PM EDT Telemedicine Care at Home [address] [place] [address] Kori Dumont PA-C [address] [place] [address] 02/14/2025 8:00 AM EDT Imaging Radiology [facility] 1st [facility] [place] [address] [facility] [place] [address] Scheduled Procedures Name [...] 09/30/2023 DISCUSS TOBACCO CESSATION (REFER TO SMARTSET #9181) 01/28/2025 01/29/2024 TSH 01/28/2025 01/29/2024, 07/21, 07/25/2023, [...] this encounter Medical Devices Implanted Type Area Admissions Clerk Device Identifier Shelf Expiration Date Model / Serial / Lot Cover Nilda Hole 24mm 421.528 - [id number] Implanted:Qty: 1 on 08/20/2021 by Joni Hand III, MD at [place] [facility] [place] [place] Right: Head SYNTHES MAXILLOFACIAL 421.528 / / Plate Y Ti Lo Db 6h 21 421.517 - [id number] Implanted:Qty: 1 on 08/20/2021 by Joni Hand III, MD at OR [facility] [place] [place] Right: Head SYNTHES MAXILLOFACIAL 421.517 / / Screw Ti Lo Pro Sd 4mm 400.834 - [id number] Implanted:Qty: 10 on 08/20/2021 by Joni Hand III, MD at OR [facility] [place] [place] Right: Head SYNTHES MAXILLOFACIAL 400.834 / / Cement Hydroset Injectable 5cc - [id number] Implanted:Qty: 1 on 03/03/2024 by Joni Hand III, MD at OR [facility] [place] [place] Left: Head SUZANNA [id number] 09/19/2025 [id number] / / [id number] Cover Bur Hol Ti Lo 17 421.527 - [id number] Implanted:Qty: 1 on 03/03/2024 by Joni Hand III, MD at OR [facility] [place] [place] Left: Head SYNTHES MAXILLOFACIAL 421.527 / / Plate Ti Lo Pro Str 2h 421.502 - [id number] Implanted:Qty: 2 on 03/03/2024 by Joni Hand III, MD at OR [facility] [place] [place] Left: Head SYNTHES MAXILLOFACIAL 421.502 / / Screw 4mm Ti Low Pro Sdrill - [id number] Implanted:Qty: 7 on 03/03/2024 by Joni Hand III, MD at OR [facility] [place] [place] Left: Head SYNTHES MAXILLOFACIAL 400.834E / / documented as of this encounter Visit Diagnoses Diagnosis Malignant melanoma of left lower extremity (HCC) Screening mammogram for breast cancer documented in [...] and were consensually agreed upon. Care Teams Delivery Truck Driver Relationship Specialty Start Date End Date Martin Solorio MD [address] [place] [address] PCP - General Family Medicine 02/20/21 documented as of this encounter"
--- OUTSIDE RECORDS SUMMARY | 2024-07-06 15:58 | External Medical Summary | Summary of Care ---
Author Name Unknown Organization [facility] Address [address] [place] [address] Phone [phone] Care Team Providers Care Assessment Clinician Name Role Phone Martin Solorio MD Primary Care Provider [phone] Reason for Visit * Reason Onset Date Comments Forms Request 05/11/2024 Aflac Encounter Details Date Type Department Care Team (Late st Contact Info) Description 05/11/2024 Telephone Hematology/Oncology 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 Cerebral atrophy 09/30/2023 Left sided lacunar infarction 09/30/2023 Spinal stenosis of cervical region 09/30/2023 Coronary artery disease invo lving [place] coronary artery of [place] heart without angina pectoris 09/30/2023 Pulmonary nodules [...] as of this encounter (statuses as of 05/11/2024) Resolved Problems Problem Noted Date Diagnosed Date [...] as of this encounter (statuses as of 05/11/2024) Immunizations Name Administration Dates Next Due COVID-19, [...] encounter Miscellaneous Notes * Telephone Encounter - Andria Key OSA [...] fax to Malina attn: Alvina Hernandez, at [phone]. Confirmation page will be scanned in with form. * Telephone Encounter - Malou Mejía LPN - 05/11/2024 7:35 AM EDT My G sent documented in this encounter Plan of Treatment Upcoming Encounters Date Type Department Care Team (Late st Contact Info) Description 06/08/2024 9:45 AM EST Pharmacy Pharmacy Hematology Oncology [facility] [address] [place] [address] [facility], [facility] Hem/Onc [address] [place] [address] 07/05/2024 9:45 AM EST Office Visit Neurosurgery, [place] [address] [place] [address] Clinic, Brain Tumor Multidisciplinary [place] [address] 08/02/2024 8:20 AM EST Office Visit [address] [address] Martin Solorio MD [address] [place] [address] 10/05/2024 12:30 PM EDT Telemedicine Care at Home [address] [place] [address] Kori Dumont PA-C [address] [place] [address] 02/14/2025 8:00 AM EDT Imaging Radiology [facility] 1st [facility] [place] 132 [facility] [place] [address] Scheduled Procedures Name Priority Associated Diagnoses Date/Ti [...] 09/30/2023 DISCUSS TOBACCO CESSATION (REFER TO SMARTSET #8394) 01/28/2025 01/29/2024 TSH 01/28/2025 01/29/2024, 07/21, 07/25/2023, [...] this encounter Medical Devices Implanted Type Area Nailer Operator Device Identifier Shelf Expiration Date Model / Serial / Lot Cover Nilda Hole 24mm 421.528 - [id number] Implanted:Qty: 1 on 08/20/2021 by Joni Hand III, [place] [facility] [place]: Head SYNTHES MAXILLOFACIAL 421.528 / / Plate Y Ti Lo Db 6h 21 421.517 - [id number] Implanted:Qty: 1 on 08/20/2021 by Joni Hand III, [place] [facility] [place]: Head SYNTHES MAXILLOFACIAL 421.517 / / Screw Ti Lo Pro Sd 4mm 400.834 - [id number] Implanted:Qty: 10 on 08/20/2021 by oJni Hand III, [place] [facility] [place]: Head SYNTHES MAXILLOFACIAL 400.834 / / Cement Hydroset Injectable c - [id number] Implanted:Qty: 1 on 03/03/2024 by Joni Hand III, [place] [facility] [place]: Head SUZANNA [id number] 09/19/2025 [id number] / / [id number] Cover Bur Hol Ti Lo 17 421.527 - [id number] Implanted:Qty: 1 on 03/03/2024 by Joni Hand III, MD [place] [facility] [place]: Head SYNTHES MAXILLOFACIAL 421.527 / / Plate Ti Lo Pro Str 2h 421.502 - [id number] Implanted:Qty: 2 on 03/03/2024 by Joni Hand III, [place] [facility] [place]: Head SYNTHES MAXILLOFACIAL 421.502 / / Screw 4mm Ti Low Pro Sdrill - [id number] Implanted:Qty: 7 on 03/03/2024 by Joni Hand III, MD [place] [facility] [place]: Head SYNTHES MAXILLOFACIAL [...] and were consensually agreed upon. Care Teams Assessment Clinician Relationship Specialty Start Date End Date Martin Solorio MD [address] [place] [address] PCP - General Family Medicine 02/20/21 documented as of this encounter
--- OUTSIDE RECORDS SUMMARY | 2024-07-06 15:58 | External Medical Summary | Summary of Care ---
Author Name Unknown Organization [facility] Address [address] [place] [address] Phone [phone] Care Team Providers Care Plumbing Hardware Assembler Name Role Phone Martin Solorio MD Primary Care Provider [phone] Reason for Visit * Reason Onset Date Comments Forms Request 05/11/2024 Aflac Encounter Details Date Type Department Care Team (Late st Contact Info) Description 05/11/2024 Telephone Hematology/Oncology [facility] [address] [place] [phone] Benja Watkins MD [address] [place] [address] Forms Request (Aflac) Allergies Active Allergy Reactions [...] region 09/30/2023 Coronary artery disease invo lving [place] coronary artery of [place] heart without angina pectoris 09/30/2023 Pulmonary nodules [...] leave a copy at the front office medical assistant for patients to hand picker unless he prefers it to be e-mailed. [...] Form completed and signed, will fax to [facility] attn: Alvina Hernandez, at [phone]. Confirmation page will be scanned in with form. * Telephone Encounter - Malou Mejía LPN - 05/11/2024 7:35 AM EDT My G sent documented in this encounter Plan of Treatment Upcoming Encounters Date Type Department Care Team (Late st Contact Info) Description 06/08/2024 9:45 AM [facility] Pharmacy Pharmacy Hematology Oncology [facility] [address] [place] [address] [facility] Clinic Hem/Onc [address] [place] [address] 07/05/2024 9:45 AM EST Office Visit Neurosurgery, [place] [address] [place] [address] Clinic, Brain Tumor Multidisciplinary [address] [place] [address] 08/02/2024 8:20 AM EST Office Visit [facility] [address] [place] [address] Martin Solorio MD [address] [place], [place] [address] 10/05/2024 12:30 PM EDT Telemedicine Care at Home [address] [place] [address] Kori Dumont PA-C [address] [place] [address] 02/14/2025 8:00 AM EDT Imaging Radiology [address] [place] [address] Scheduled Procedures Name [...] this encounter Medical Devices Implanted Type Area Spinning Lathe Operator Hydraulic Device Identifier Shelf Expiration Date Model / Serial / Lot Cover Nilda Hole 24mm 421.528 - [id number] Implanted:Qty: 1 on 08/20/2021 by Joni Hand III, MD at OR [facility] [place] Right: Head SYNTHES MAXILLOFACIAL 421.528 / / Plate Y Ti Lo Db 6h 21 421.517 - [id number] Implanted:Qty: 1 on 08/20/2021 by Joni Hand III, MD at [place] [facility] [place] Right: Head SYNTHES MAXILLOFACIAL 421.517 / / Screw Ti Lo Pro Sd 4mm 400.834 - [id number] Implanted:Qty: 10 on 08/20/2021 by Joni Hand III, MD at [place] [facility] [place] Right: Head SYNTHES MAXILLOFACIAL 400.834 / / Cement Hydroset Injectable 5cc - [id number] Implanted:Qty: 1 on 03/03/2024 by Joni Hand III, MD at OR [facility] [place] Left: Head SUZANNA [id number] 09/19/2025 [id number] / / [id number] Cover Bur Hol Ti Lo 17 421.527 - [id number] Implanted:Qty: 1 on 03/03/2024 by Joni Hand III, MD at [place] [facility] [place] Left: Head SYNTHES MAXILLOFACIAL 421.527 / / Plate Ti Lo Pro Str 2h 421.502 - [id number] Implanted:Qty: 2 on 03/03/2024 by Joni Hand III, MD at OR [facility] [place] Left: Head SYNTHES MAXILLOFACIAL 421.502 / / Screw 4mm Ti Low Pro Sdrill - [id number] Implanted:Qty: 7 on 03/03/2024 by Joni Hand III, MD at OR [facility] [place] Left: Head SYNTHES MAXILLOFACIAL 400.834E [...] and were consensually agreed upon. Care Teams Plumbing Hardware Assembler Relationship Specialty Start Date End Date Martin Solorio MD [address] [facility] [place] [address] PCP - General Family Medicine 02/20/21 documented as of this encounter
--- OUTSIDE RECORDS SUMMARY | 2024-07-06 15:58 | External Medical Summary | Summary of Care ---
Author Name Unknown Organization [facility] Address [address] [place] [address] Phone [phone] Care Team Providers Care Fittings Tightener Name Role Phone Martin Solorio MD Primary Care Provider [phone] Reason for Visit * Reason Onset Date Comments Forms Request 05/11/2024 Aflac Encounter Details Date Type Department Care Team (Late st Contact Info) Description 05/11/2024 Telephone Hematology/Oncology [facility] [address] [place] [phone] Benja Watkins MD [address] [place] [address] Forms Request (Aflac) Allergies Active Allergy Reactions [...] region 09/30/2023 Coronary artery disease invo lving [place] coronary artery of [place] heart without angina pectoris 09/30/2023 Pulmonary nodules [...] Form completed and signed, will fax to [facility] attn: Alvina David, at [phone]. Confirmation page will be scanned in with form. * Telephone Encounter - Malou Mejía LPN - 05/11/2024 7:35 AM EDT My G sent documented in this encounter Plan of Treatment Upcoming Encounters Date Type Department Care Team (Late st Contact Info) Description 06/08/2024 9:45 AM EST Pharmacy Pharmacy Hematology Oncology [facility] [address] [place] [address] [facility] [place], [facility] Clinic Hem/Onc [address] [place] [address] 07/05/2024 9:45 AM EST Office Visit Neurosurgery, [place] [address] [place] [address] Clinic, Brain Tumor Multidisciplinary [address] [place] [address] 08/02/2024 8:20 AM EST Office Visit [facility] [address] [place] [address] Martin Solorio MD [address] [place], [place] [address] 10/05/2024 12:30 PM EDT Telemedicine Care at Home [address] [place] [address] Kori Dumont PA-C [address] [place] [address] 02/14/2025 8:00 AM EDT Imaging Radiology [facility] [address] [place] [address] Scheduled Procedures Name [...] 09/30/2023 DISCUSS TOBACCO CESSATION (REFER TO SMARTSET #8403) 01/28/2025 01/29/2024 TSH 01/28/2025 01/29/2024, 07/21, 07/25/2023, [...] this encounter Medical Devices Implanted Type Area Clerical Adjuster Device Identifier Shelf Expiration Date Model / Serial / Lot Cover Nilda Hole 24mm 421.528 - [id number] Implanted:Qty: 1 on 08/20/2021 by Joni Hand III, MD at OR [facility] [place] Right: Head SYNTHES MAXILLOFACIAL 421.528 / / Plate Y Ti Lo Db 6h 21 421.517 - [id number] Implanted:Qty: 1 on 08/20/2021 by Joni Hand III, MD at OR [facility] [place] Right: Head SYNTHES MAXILLOFACIAL 421.517 / / Screw Ti Lo Pro Sd 4mm 400.834 - [id number] Implanted:Qty: 10 on 08/20/2021 by Joni Hand III, MD at OR [facility] [place] Right: Head SYNTHES MAXILLOFACIAL 400.834 / / Cement Hydroset Injectable 5cc - [id number] Implanted:Qty: 1 on 03/03/2024 by Joni Hand III, MD at OR [facility] [place] Left: Head SUZANNA [id number] 09/19/2025 [id number] / / [id number] Cover Bur Hol Ti Lo 17 421.527 - [id number] Implanted:Qty: 1 on 03/03/2024 by Joni Hand III, MD at OR [facility] [place] Left: Head SYNTHES MAXILLOFACIAL 421.527 / / Plate Ti Lo Pro Str 2h 421.502 - [id number] Implanted:Qty: 2 on 03/03/2024 by Joni Hand III, MD at OR [facility] [place] Left: Head SYNTHES MAXILLOFACIAL 421.502 / / Screw 4mm Ti Low Pro Sdrill - [id number] Implanted:Qty: 7 on 03/03/2024 by Joni Hand III, MD at OR [facility] [place] Left: Head SYNTHES [...] and were consensually agreed upon. Care Teams Fittings Tightener Relationship Specialty Start Date End Date Martin Solorio MD [address] [facility] [place] [address] PCP - General Family Medicine 02/20/21 documented as of this encounter
--- OUTSIDE RECORDS SUMMARY | 2024-07-06 15:58 | External Medical Summary | Summary of Care ---
Author Name Unknown Organization [facility] Address [address] [place] [address] Phone [phone] Care Team Providers Care Roofer Name Role Phone Martin Solorio MD Primary Care Provider [phone] Reason for Visit * Reason Onset Date Comments Forms Request 05/11/2024 Aflac Encounter Details Date Type Department Care Team (Late st Contact Info) Description 05/11/2024 Telephone Hematology/Oncology [facility] [address] [place] [phone] Benja Watkins MD [address] [place] [address] Forms Request (Aflac) Allergies Active Allergy Reactions [...] region 09/30/2023 Coronary artery disease invo lving [place] coronary artery of [place] heart without angina pectoris 09/30/2023 Pulmonary [...] Form completed and signed, will fax to [facility] attn: Alvina Hernandez, at [phone]. Confirmation page will be scanned in with form. * Telephone Encounter - Malou Mejía LPN - 05/11/2024 7:35 AM EDT My G sent documented in this encounter Plan of Treatment Upcoming Encounters Date Type Department Care Team (Late st Contact Info) Description 06/08/2024 9:45 AM EST Pharmacy Pharmacy Hematology Oncology [facility] [place] [address] [place] [address] [facility], [facility] Clinic Hem/Onc [address] [place] [address] 07/05/2024 9:45 AM EST Office Visit Neurosurgery, [place] [address] [place] [address] Clinic, Brain Tumor Multidisciplinary [address] [place] [address] 08/02/2024 8:20 AM EST Office Visit [facility] [address] [place] [phone] Martin Solorio MD [address] [place], [place] [address] 10/05/2024 12:30 PM EDT Telemedicine Care at Home [address] [place] [address] Kori Dumont PA-C [address] [place] [address] 02/14/2025 8:00 AM EDT Imaging Radiology [facility] 1st [facility] [place] 132 [facility] [place] [address] Scheduled Procedures Name [...] this encounter Medical Devices Implanted Type Area Mineral Resources Inspector Device Identifier Shelf Expiration Date Model / Serial / Lot Cover Nilda Hole 24mm 421.528 - [id number] Implanted:Qty: 1 on 08/20/2021 by Joni Hand III, MD at [place] [facility] [place] Right: Head SYNTHES MAXILLOFACIAL 421.528 / / Plate Y Ti Lo Db 6h 21 421.517 - [id number] Implanted:Qty: 1 on 08/20/2021 by Joni Hand III, MD at [place] [facility] [place] Right: Head SYNTHES MAXILLOFACIAL 421.517 / / Screw Ti Lo Pro Sd 4mm 400.834 - [id number] Implanted:Qty: 10 on 08/20/2021 by Joni Hand III, MD at [place] [facility] [place] Right: Head SYNTHES MAXILLOFACIAL 400.834 / / Cement Hydroset Injectable 5cc - [id number] Implanted:Qty: 1 on 03/03/2024 by Joni Hand III, MD at [place] [facility] [place] Left: Head SUZANNA [id number] 09/19/2025 [id number] / / [id number] Cover Bur Hol Ti Lo 17 421.527 - [id number] Implanted:Qty: 1 on 03/03/2024 by Joni Hand III, MD at [place] [facility] [place] Left: Head SYNTHES MAXILLOFACIAL 421.527 / / Plate Ti Lo Pro Str 2h 421.502 - [id number] Implanted:Qty: 2 on 03/03/2024 by Joni Hand III, MD at [place] [facility] [place] Left: Head SYNTHES MAXILLOFACIAL 421.502 / / Screw 4mm Ti Low Pro Sdrill - [id number] Implanted:Qty: 7 on 03/03/2024 by Joni Hand [...] and were consensually agreed upon. Care Teams Roofer Relationship Specialty Start Date End Date Martin Solorio MD [address] [place] [address] PCP - General Family Medicine 02/20/21 documented as of this encounter
--- OUTSIDE RECORDS SUMMARY | 2024-07-06 15:58 | External Medical Summary | Summary of Care ---
Author Name Unknown Organization [facility] Address [address] [place] [address] Phone [phone] Care Team Providers Care Qualification Engineer Name Role Phone Martin Solorio MD Primary Care Provider [phone] Reason for Visit * Reason Onset Date Comments [facility]: Engagement 05/12/2024 Encounter Details Date Type Department Care Team (Late st Contact Info) Description 05/12/2024 Telephone [facility], [place] [address] [place] [address] June Nair OSA [address] [place] [address] [facility]: Engagement Allergies [...] region 09/30/2023 Coronary artery disease invo lving [place] coronary artery of [place] heart without angina pectoris 09/30/2023 Pulmonary nodules [...] Telephone Encounter - June Nair OSA - 05/12/2024 3:33 PM EDT [facility] outreach 05/12- UTC1 Looking at Francy on 05/14 documented in this encounter Plan of Treatment Upcoming Encounters Date Type Department Care Team (Late st Contact Info) Description 05/19/2024 10:00 AM EDT Office Visit [facility] [address] [place] [phone] NovemberDerek MD [address] [place] [address] 06/08/2024 9:45 AM EST Pharmacy Pharmacy [facility], [place] [address] [place] [address] [facility] Hem/Onc [address] [place] [address] 07/05/2024 9:45 AM EST Office Visit Neurosurgery, [place] [address] [place] [address] Clinic, Brain Tumor Multidisciplinary [address] [place] [address] 08/02/2024 8:20 AM EST Office Visit [facility] [address] [place] [address] Martin Solorio MD [address], [place] [id number] 10/05/2024 12:30 PM EDT Telemedicine Care at Home [address] [place] [address] Kori Dumont PA-C [address] [place] [address] 02/14/2025 8:00 AM EDT Imaging Radiology [address], [place] [address] [facility] [place] [address] Scheduled Procedures Name Priority [...] 09/30/2023 DISCUSS TOBACCO CESSATION (REFER TO SMARTSET #[id number]) 01/28/2025 01/29/2024 TSH 01/28/2025 01/29/2024, 07/21, 07/25/2023, [...] this encounter Medical Devices Implanted Type Area Patient Service Rep Device Identifier Shelf Expiration Date Model / Serial / Lot Cover Nilda Hole 24mm 421.528 - [id number] Implanted:Qty: 1 on 08/20/2021 by Joni Hand III, [place] [facility] Right: Head SYNTHES MAXILL[employer]IAL 421.528 / / Plate Y Ti Lo Db 6h 21 421.517 - [id number] Implanted:Qty: 1 on 08/20/2021 by Joni Hand III, MD [place] [facility] Right: Head [employer]ES [employer]ILL[employer]IAL 421.517 / / Screw Ti Lo Pro Sd 4mm 400.834 - [id number] Implanted:Qty: 10 on 08/20/2021 by Joni Hand III, MD [place] [facility] Right: Head [employer]ES MAXILL[employer] 400.834 / / Cement Hydroset Injectable 5cc - [id number] Implanted:Qty: 1 on 03/03/2024 by Joni Hand III, MD at [place] [facility] Left: Head SUZANNA [id number] 09/19/2025 [id number] / / [id number] Cover Bur Hol Ti Lo 17 421.527 - [id number] Implanted:Qty: 1 on 03/03/2024 by Joni Hand III, MD at [place] [facility] [place] Left: Head [employer]ES MAXILL[employer]ACIAL 421.527 / / Plate Ti Lo Pro Str 2h 421.502 - [id number] Implanted:Qty: 2 on 03/03/2024 by Joni Hand III, MD at [place] [facility] Left: Head [employer]ES MAXILL[employer]IAL 421.502 / / Screw 4mm Ti Low Pro Sdrill - [id number] Implanted:Qty: 7 on 03/03/2024 by Joni Hand III, MD at [place] [facility] Left: Head [employer] 400.834E / / [...] and were consensually agreed upon. Care Teams Qualification Engineer Relationship Specialty Start Date End Date Martin Solorio MD [address] [place] [address] PCP - General Family Medicine 02/20/21 documented as of this encounter
--- OUTSIDE RECORDS SUMMARY | 2024-07-06 15:58 | External Medical Summary | Summary of Care ---
Author Name Unknown Organization [facility] Address [address] [facility] [place] [address] Phone [phone] Care Team Providers Care Box Strapper Name Role Phone Martin Solorio MD Primary Care Provider [phone] Reason for Visit * Reason Onset Date Comments [facility]: Screening 05/12/2024 Encounter Details Date Type Department Care Team (Late st Contact Info) Description 05/12/2024 Telephone [facility], [facility] [address] [place] [address] Kendy Moreno, NEON INSTALLER [address] [facility] [address] [facility]: Screening Allergies Active Allergy [...] region 09/30/2023 Coronary artery disease invo lving [place] coronary artery of [place] heart without angina pectoris 09/30/2023 Pulmonary nodules [...] encounter Miscellaneous Notes * Telephone Encounter - Kendy Moreno LPN - 05/12/2024 1:27 PM EDT Judy Garcia was referred as a potential candidate for enrollment for [facility]. A review of this chart was completed and: Judy meets criteria for [facility]. Jump to Initiation Referring care team was notified via : [employer] communication Sent to [facility] clerical pool to reach out to pt for enrollment documented in this encounter Plan of Treatment Upcoming Encounters Date Type Department Care Team (Late st Contact Info) Description 06/08/2024 9:45 AM EST Pharmacy [facility] [place] [address] [place] [address] [facility] Hem/Onc [address] [place] [address] 07/05/2024 9:45 AM EST Office Visit Neurosurgery, [place] [address] [place] [address] Clinic, Brain Tumor Multidisciplinary [address] [place] [address] 08/02/2024 8:20 AM EST Office Visit [facility] [address] [place] [phone] Martin Solorio MD [address] [place] [address] 10/05/2024 12:30 PM EDT Telemedicine Care at Home [address] [place] [address] Kori Dumont PA-C [address] [place] [address] 02/14/2025 8:00 AM EDT Imaging Radiology [facility] [place] [address] [facility] [place] [address] Scheduled Procedures Name Priority Associated Diagnoses [...] this encounter Medical Devices Implanted Type Area Ordnance Officer Device Identifier Shelf Expiration Date Model / Serial / Lot Cover [place] Hole 24mm 421.528 - [id number] Implanted:Qty: 1 on 08/20/2021 by Joni Hand III, [place] [facility] Right: Head SYNTHES MAXILL[employer]ACIAL 421.528 / / Plate Y Ti Lo Db 6h 21 421.517 - [id number] Implanted:Qty: 1 on 08/20/2021 by Joni Hand III, MD at [place] [facility] Right: Head SY[employer]ES MAXILL[employer]ACIAL 421.517 / / Screw Ti Lo Pro Sd 4mm 400.834 - [id number] Implanted:Qty: 10 on 08/20/2021 by Joni Hand III, MD at [place] [facility] Right: Head SY[employer]THES MAXILLOFACIAL 400.834 / / Cement Hydroset Injectable 5cc - [id number] Implanted:Qty: 1 on 03/03/2024 by Joni Hand III, MD at [place] [facility] Left: Head SUZANNA [id number] 09/19/2025 [id number] / / [id number] Cover Bur Hol Ti Lo 17 421.527 - [id number] Implanted:Qty: 1 on 03/03/2024 by Joni Hand III, MD at [place] [facility] Left: Head SYNTHES MAXILLOFACIAL 421.527 / / Plate Ti Lo Pro Str 2h 421.502 - [id number] Implanted:Qty: 2 on 03/03/2024 by Joni Hand III, MD at [place] [facility] Left: Head SYNTHES MAXILLOFACIAL 421.502 / / Screw 4mm Ti Low Pro Sdrill - [id number] Implanted:Qty: 7 on 03/03/2024 by Joni Hand III, MD at [place] [facility] Left: Head SYNTHES MAXILLOFACIAL 400.834E / / [...] and were consensually agreed upon. Care Teams Box Strapper Relationship Specialty Start Date End Date Martin Solorio MD [address] [facility] [place] [address] PCP - General Family Medicine 02/20/21 documented as of this encounter
--- NOTE | 2024-07-06 18:01 | Orthopedic Consultation ---
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 Per the admission H&P, the patient's notes that she has fallen a few days ago and since that time his had difficulty ambulating. The patient is unable to participate in exam or history gathering, as such the above was all gathered via chart review. Upon admission, pelvis x-rays did demonstrate pubic ramus fractures on the right of the superior and inferior pubic ramus. Orthopedics was then consulted. Upon my evaluation of the x-rays, I do not appreciate any femoral neck or inter trochanteric hip fractures. On exam, the patient does wince with palpation of the right hemipelvis, but does not seem to be bothered by heel strike or by logroll. While it is impossible to know for sure, it seems as if her only current fractures are her superior and inferior pubic ramus on the right. In order to fully evaluate these fractures, and I have ordered a CT scan of the pelvis. In general, these fractures can be managed nonoperatively provided that there is no discontinuity in the posterior pelvic ring. We will examine her CT scan in great detail to determine if any intervention is necessary. Further recommendations to follow pending CT scan History of Present Illness Reason for Consultation: pubic rami fractures Requesting Physician: Dr Willis Attending Physician: Anatoliy Willis MD History of Present Illness 63-year-old female who presents to the [facility] From home with altered mental status and generalized weakness and in a disheveled state. The patient has a medical history complex of melanoma of the left leg originally diagnosed in 2021 with brain mets and a craniotomy and resection under the care of Dr. Hand on 08/20/2021. Patient is disheveled. She is awake alert oriented to herself. History for this patient is gathered via chart review rather than direct discussion with the patient. Per the admission H&P: "In the ED mild leukocytosis 11.9, TSH elevated at 17.4, bio fire negative. Head CT negative for ICH, midline shift or SDH. Chest x-ray negative for acute cardiopulmonary disease. TSH 17.4. Most recent inpatient hospital stay here was in March with similar symptoms including possible seizure activity for which an EEG indicated nonspecific encephalopathy without seizure-like activity. An ECHO was performed EF 60 to 65% with LV wall motion normal, trace MR and mild TR. A pelvic/hip xray was performed with results identifying a fracture of the right superior and inferior pubic ramus and bilateral pubic symphysis." Per the admission H&P: The hospitalist did call the patient's who stated : "that two days she hasn't been acting herself and he tried to get her up last night to get her to stand and she could not stand. At baseline, he says that she does not have any short term memory. reportedly has been giving her her medications. He reported that she tripped and fell on her dogs leash 3-4 days ago, but denies that she hit her head. He said he has a hard time mobilizing at baseline. He says that she requires all of her needs are met by him including bathing and eating. Patient will be admitted for further evaluation and management with additional IV rehydration, will obtain VBG and ammonia levels along with a brain MRI with and without contrast given her metastatic brain involvement, will obtain EEG and continue IV Rocephin and await urine culture. Will increase Thyroid medication given elevated TSH. Allergies Allergy/AdvReac Type Severity Reaction Status Date / Time erythromycin base Allergy Unknown BROUGHT ON Verified 07/06/24 12:42 SEIZURES Macrolide Antibiotics Allergy Unknown Unknown Verified 07/06/24 12:42 Ketolide Antibiotics Allergy Unknown Unknown. Uncoded 07/06/24 12:42 On file w/ [facility]. Home Medications Medication Instructions Recorded Confirmed Type dabrafenib 75 mg capsule (Tafinlar) 75 mg PO AMHS 07/30/22 07/06/24 History dexamethasone 4 mg tablet 4 mg PO UD 04/11/24 07/06/24 History trametinib 0.5 mg tablet (Mekinist) 0 mg PO QAM 04/11/24 07/06/24 History lorazepam 0.5 mg tablet 0.5 mg PO Q6H PRN anxiety #10 tabs 04/28/24 07/06/24 Rx multivitamin 1 tab PO QAM #30 tabs 04/28/24 07/06/24 Rx ondansetron HCl 8 mg tablet 8 mg PO BID PRN nausea #10 tabs 04/28/24 07/06/24 Rx paroxetine HCl 40 mg tablet 40 mg PO QAM #30 tabs 04/28/24 07/06/24 Rx triamcinolone acetonide 0.1 % 1 applic topical BID itching #15 04/28/24 07/06/24 Rx topical cream grams atorvastatin 20 mg tablet 20 mg PO QPM 07/06/24 07/06/24 History carbamazepine 200 mg 400 - 600 mg PO UD 07/06/24 07/06/24 History tablet,extended release,12 hr ergocalciferol (vitamin D2) 1,250 50,000 unit PO WK 07/06/24 07/06/24 History mcg (50,000 unit) capsule levothyroxine 200 mcg tablet 200 mcg PO DAILY 07/06/24 07/06/24 History losartan 50 mg tablet 50 mg PO QAM 07/06/24 07/06/24 History tramadol 50 mg tablet 50 mg PO TID PRN Moderate Pain 07/06/24 07/06/24 History (Scale Score 5-6) trazodone 100 mg tablet 0 mg PO HS 07/06/24 07/06/24 History Patient History Medical History Fall Acute UTI (urinary tract infection) Acute hypotension Seizure disorder History of melanoma October 2017 --diag with superficial spreading melanoma of the left leg, [id number], Stage IIIc. 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 S/p re-excision and SLNB 12/26/2017 (-margins; 3 of 3 nodes involved) S/p nivolumab 02/04 - 04/08 S/p right parietal craniotomy for near total resection 08/20/2021 S/p Radiation therapy to brain mets, including post op bed; Aug -September 2021 S/p dabrafinib and trametinib 10/09 --dose reduced in mid 2021; ongoing Rx Jul 2022--SRS to left frontal lobe Aug 2023--s/p ALYSHA and bx of Left Frontal mass. Path-- brain parenchyma with reactive gliosis.Negative for malignancy. MRI feb 20, 2024--Parenchymal abnormality at the treatment site measuring 1.9 cm, not fully characterized. Surrounding vasogenic edema and mild mass effect, increased since pretreatment imaging. 03/03/2024--s/p L frontal craniotomy for resection ( Dr Hand) ; path showed Residual/recurrent metastatic melanoma No pertinent past medical history Surgical History S/P craniotomy Dr. Hand [facility] Neurosurgery 03/03/24 Left frontal craniotomy for tumor resection with vycor tube and dynamic retraction, use of brainlab neur onavigation, use of neurophysiological monitoring (SSEP/MEP/motor language, subcortical stimulation) Status post right foot surgery History of knee replacement procedure of left knee History of partial hysterectomy H/O craniotomy History of back surgery History of brain surgery x2 Hx of cholecystectomy Family History Grandfather (Maternal) Cancer Breast cancer Sister Cancer Breast cancer Father Cancer Colon cancer Social History Smoking Status: Current every day smoker Tobacco Type: Cigarettes Cigarettes Per Day: 13; Do You Dip or Chew Tobacco: No; Hx Alcohol Use: Yes Hx Substance Use: No Preferred Language: Qatari Communication Ability: Unable Visual Impairment: No Limitations Hearing Ability: Normal Asbestos Handler Required: No Beliefs That Will Affect Care: None marital status: Current Living Situation: Spouse current occupational status: employed 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 She is unable to participate in an exam. She does appear to wince with palpation about her right hemipelvis. She does not appear to wince with logroll or with heel strike on either lower extremity. Results & Data Vital Signs (Past 12 Hours) Vital Signs Temp Pulse Pulse Resp BP BP Pulse Ox 07/06/24 15:41 07/06/24 15:39 72 07/06/24 14:44 36.6 C 74 16 136/77 94 07/06/24 13:34 07/06/24 12:33 72 19 07/06/24 12:30 135/72 07/06/24 12:30 135/72 07/06/24 12:30 135/72 07/06/24 12:27 84 14 07/06/24 12:07 151/82 H 07/06/24 12:06 75 19 07/06/24 12:01 142/101 H 07/06/24 12:00 73 25 H 07/06/24 11:32 156/49 H 07/06/24 11:30 75 18 92 07/06/24 11:27 71 12 96 07/06/24 11:27 94 07/06/24 11:22 132/86 07/06/24 11:21 70 15 07/06/24 10:42 71 20 96 07/06/24 10:09 73 23 07/06/24 10:09 85 07/06/24 09:40 37.0 C 76 18 142/84 H 94 07/06/24 09:19 94 O2 Del Method 07/06/24 15:41 Room Air 07/06/24 15:39 07/06/24 14:44 Room Air 07/06/24 13:34 Room Air 07/06/24 12:33 07/06/24 12:30 07/06/24 12:30 07/06/24 12:30 07/06/24 12:27 07/06/24 12:07 07/06/24 12:06 07/06/24 12:01 07/06/24 12:00 07/06/24 11:32 07/06/24 11:30 07/06/24 11:27 07/06/24 11:27 Room Air 07/06/24 11:22 07/06/24 11:21 07/06/24 10:42 07/06/24 10:09 07/06/24 10:09 07/06/24 09:40 Room Air 07/06/24 09:19 Room Air Diagnostic Findings Pelvis x-rays and bilateral hip x-rays obtained the emergency department personally turbid and reviewed. These demonstrate fractures of the superior and inferior pubic ramus on the right. No signs of proximal femur fracture
--- NOTE | 2024-07-06 18:36 | CT Scan Report ---
EXAM: CT Pelvis Without Intravenous Contrast INDICATION: Pubic rami fracture. TECHNIQUE: Axial computed tomography images of the pelvis without intravenous contrast. Sagittal and coronal reformatted images were created and reviewed. This CT exam was performed using one or more of the following dose reduction techniques: automated exposure control, adjustment of the mA and/or kV according to patient size, and/or use of iterative reconstruction technique. COMPARISON: 02/26/2024 FINDINGS: Bones/joints: Markedly comminuted fractures of the bilateral superior pubic rami and pubic symphysis as well as the bilateral sacrum. There is acute fracture of the distal left and mid right inferior pubic rami. Stable severe degenerative change of the lower lumbar segments. Pelvic hemorrhage noted in the midline cranial to the pubic symphysis to the right and anterior to the collapsed urinary bladder and extending along the right rectus muscle. Small amounts of fluid noted in the pelvis. There is no organized or drainable collection. Stomach and bowel: Moderate amounts of stool present in the visualized colonic segments. Bladder: Catheter balloon inflated in the urinary bladder. IMPRESSION: Acute to subacute bilateral sacral and pubic fractures with mild surrounding disorganized contusional change in the anterior and right pelvis. ACT 112: Negative or not required by law. Electronically signed by Andreia Zee 07-06-2024 6:36 PM
--- NOTE | 2024-07-06 22:24 | Communication Note ---
Date of Service: July 06, 2024 Notified by RN of safety concerns regarding administration of pills given mentation status. Patient scheduled to receive Tegretol. AP Encephalopathy Possible seizures Hold Tegretol for now until Tegretol level back Keppra for seizure prophylaxis interim
[2024-07-06] MEDS: carBAMazepine XR 200 MG TABCR PO SCH (22:50)
[2024-07-06] MEDS: ATORVASTATIN 20 MG TAB PO SCH (23:35)
[2024-07-06] MEDS: levETIRAcetam 500 MG/5 ML VIAL IV SCH (23:35)
--- OUTSIDE RECORDS SUMMARY | 2024-07-07 01:45 | External Medical Summary | Summary of Care ---
Author Name Unknown Organization [facility] Address [address] [place] [address] Phone [phone] Care Team Providers Care Stripper Preliminary Name Role Phone Martin Solorio MD Primary Care Provider Reason for Visit * Reason Comments eRx-Medication Refill Encounter Details Date Type Department Care Team (Late st Contact Info) Description 06/28/[address] [facility] [address] [place] [phone] Martin Solorio MD [address] [place] [address] [id number] Allergies Active Allergy Reactions Criticality Noted Date Comments Erythromycin 08/15/1997 seizures documented as of this encounter (statuses as of 07/06/2024) Medications MULTIVITAMINS PO TABS Take 1 Tablet [...] EST 05/04/20 24 Active Vitamin D (Ergocalciferol) 58870 UNIT Oral Capsule Take 50,000 Units by [...] prior to breakfast or other meds) 024 Discontin ued(Refil l) documented as of this encounter (statuses as of 07/06/2024) Active Problems Problem Noted Date Diagnosed Date History of stroke 06/04/2024 Overview (06/04/2024): 08/22/23 MRI "There is a chronic lacunar infarction within the left thalamus." Cerebral atrophy 09/30/2023 Spinal stenosis of cervical region 09/30/2023 Coronary artery disease invo lving tribe coronary artery of tribe heart without angina pectoris 09/30/2023 Pulmonary [...] as of this encounter (statuses as of 07/06/2024) Resolved Problems Problem Noted Date Diagnosed Date [...] as of this encounter (statuses as of 07/06/2024) Immunizations Name Administration Dates Next Due COVID-19, [...] on file Not on file Not on supervisor screen making Not on file Not on file Not [...] encounter Miscellaneous Notes * Telephone Encounter - Alec Heller [facility] - 07/06/2024 10:05 AM ESTRefused Prescriptions: Disp Refills Levothyroxine Sodium 200 MCG Oral Tablet 90 Tab*0 Sig: TAKE 1 TABLET BY MOUTH IN THE MORNING AT LEAST 30 MIN PRIOR TO BREAKFAST OR OTHER MEDSRefused By: ALEC HELLERcox monett for Refusal: Duplicate Request * Telephone Encounter - Alec Heller [facility] - 07/06/2024 10:05 AM EST Patient called within separate encounter to request levothyroxine. Dose confirmed as 175mcg. Alec Ruiz, PharmD Clinical Pharmacist [facility] [phone] 07/06/2024 10:05 AM * Telephone Encounter - Alec Heller [facility] - 06/30/2024 8:57 AM ESTPending Prescriptions: Disp Refills Levothyroxine Sodium 200 MCG Oral Tablet 90 Tab*0 Sig: TAKE 1 TABLET BY MOUTH IN THE MORNING AT LEAST 30 MIN PRIOR TO BREAKFAST OR OTHER MEDS documented in this encounter Plan of Treatment Upcoming Encounters Date Type Department Care Team (Late st Contact Info) Description 07/13/2024 9:15 AM EST Office Visit Hematology/Oncology [facility] [address] [place] [phone] Benja Watkins MD [address] [place] [id number] 08/02/2024 8:20 AM EST Office [facility] [address] [phone] Martin Solorio MD [address] [facility] [place] [address] 08/10/2024 9:45 AM EST Pharmacy Pharmacy Hematology Oncology [facility] [address] [place] [address] [facility] [address] [place] [address] 10/05/2024 12:30 PM EDT Telemedicine Care at Home [address] [place] [address] Kori Dumont PA-C [address] [place] [address] 02/14/2025 8:00 AM EDT Imaging Radiology [address] [place] [address] Scheduled Procedures Name Priority Associated Diagnoses Date/Ti [...] 09/30/2023 DISCUSS TOBACCO CESSATION (REFER TO SMARTSET #2171) 01/28/2025 01/29/2024 TSH 01/28/2025 01/29/2024, 07/21, 07/25/2023, [...] this encounter Medical Devices Implanted Type Area Instrumentation Chemist Device Identifier Shelf Expiration Date Model / Serial / Lot Cover [place] Hole 24mm 421.528 - [id number] Implanted:Qty: 1 on 08/20/2021 by Joni Hand III, MD at [facility] Right: Head SYNTHES MAXILLOFACIAL 421.528 / / Plate Y Ti Lo Db 6h 21 421.517 - [id number] Implanted:Qty: 1 on 08/20/2021 by Joni Hand III, MD at [facility] Right: Head [employer] 421.517 / / Screw Ti Lo Pro Sd 4mm 400.834 - [id number] Implanted:Qty: 10 on 08/20/2021 by Joni Hand III, MD at [facility] Right: Head [employer] 400.834 / / Cement Hydroset Injectable 5cc - [id number] Implanted:Qty: 1 on 03/03/2024 by Joni Hand III, MD at [facility] Left: Head SUZANNA [id number] 09/19/2025 [id number] / / [id number] Cover Bur Hol Ti Lo 17 421.527 - [id number] Implanted:Qty: 1 on 03/03/2024 by Joni aHnd III, MD at [facility] Left: Head [employer]ILL[employer] 421.527 / / Plate Ti Lo Pro Str 2h 421.502 - [id number] Implanted:Qty: 2 on 03/03/2024 by Joni Hand III, MD at [facility] Left: Head [employer]ES MAXILL[employer]IAL 421.502 / / Screw 4mm Ti Low Pro Sdrill - [id number] Implanted:Qty: 7 on 03/03/2024 by Joni Hand III, MD at [facility] Left: Head SY[employer]ES MAXILLOF[employer]IAL 400.834E / / [...] and were consensually agreed upon. Care Teams Stripper Preliminary Relationship Specialty Start Date End Date Martin Solorio MD [address] [facility] [place] [address] PCP - General Family Medicine 02/20/21 documented as of this encounter
[2024-07-07] MEDS: LEVOTHYROXINE SODIUM 75 MCG TABLET PO SCH (05:34)
--- NOTE | 2024-07-07 06:03 | Electrocardiogram Report ---
Test Reason : Blood Pressure : */* mmHG Vent. Rate : 75 BPM Atrial Rate : 75 BPM P-R Int : 172 ms QRS Dur : 84 ms QT Int : 398 ms P-R-T Axes : 42 42 177 degrees QTcB Int : 444 ms Normal sinus rhythm Nonspecific ST and T wave abnormality Abnormal ECG When compared with ECG of 11-Apr-2024 11:04, Nonspecific T wave abnormality now evident in Inferior leads T wave inversion now evident in Lateral leads Confirmed by Leeroy Evangelista ([id number]) on 07/07/2024 6:03:02 AM Referred By: Confirmed By: Leeroy Evangelista
[2024-07-07] MEDS ORDERED: LEVOTHYROXINE SODIUM 200 MCG TABLET PO SCH (06:30)
[2024-07-07 07:34] LABS: Hematocrit (blood only) 36.6 % (37.0-47.0); Hemoglobin 12.5 g/dl (12.0-16.0); Mean Corpuscular Hemoglobin 32.6 pg (25.0-34.0); Mean Corpuscular Hgb Conc 34.2 g/dL (32.0-36.0); Mean Corpuscular Volume 95.6 fL (80.0-100.0); Mean Platelet Volume 9.2 fL (9.4-12.4); Platelet Count 453 K/uL (130-400); RDW Coefficient of Variation 18.1 % (11.5-14.5); Red Blood Count 3.83 M/uL (4.20-5.40); White Blood Count 10.82 K/ul (4.8-10.8)
[2024-07-07 07:51] LABS: BUN Creatinine Ratio 26.9 (10-20); Creatinine Clr Calc Pharmacy 68.7 ml/min; Magnesium 1.7 mg/dl (1.7-2.4); Potassium 3.2 mmol/L (3.5-5.1)
[2024-07-07] MEDS: cefTRIAXone SODIUM 2,000 MG/50 ML BAG IV SCH (09:00)
[2024-07-07] MEDS ORDERED: carBAMazepine XR 200 MG TABCR PO SCH (09:00)
[2024-07-07] MEDS: ERGOCALCIFEROL 1250 MCG (50,000 UNITS) CAP PO SCH (09:03)
[2024-07-07] MEDS: LOSARTAN POTASSIUM 50 MG TAB PO SCH (09:04)
[2024-07-07] MEDS: POTASSIUM CHLORIDE CRTAB 20 MEQ TABCR PO STA (09:16)
[2024-07-07] MEDS: ACETAMINOPHEN 325 MG TAB PO PRN (09:16)
--- NOTE | 2024-07-07 12:58 | Hospitalist Progress Note ---
Date of Service July 07, 2024 Assessment & Plan (1) AMS (altered mental status): Plan: AMS: Weakness: Secondary to possible worsening of mets, UTI, seizure or others as outlined below On Admission -AAO x 1 Mild leukocytosis 11.9, lactate 0.8,Bio fire (-) Head CT negative for ICH, midline shift or SDH, CXR negative for acute cardiopulmonary disease TSH 17.4; see outlined below VBG and ammonia levels are unremarkable Received 1LNSB; ordered additional 2LNSB as patient has dry mucus membranes EKG showed normal sinus rhythm, T wave abnormality, nonspecific inferolateral leads. Trop negative. Remains pleasantly confused without any acute distress at rest (2) Acute UTI (urinary tract infection): Plan: UA nitrate +, LE 1+, tea colored urine Urine culture and blood pending Started empirically on Rocephin; await blood and urine cultures and adjust as necessary Urine seems to be normal colored and the white count has been normalized (3) Closed fracture of pubic ramus: Plan: Closed fracture of right pubic ramus: Fracture of the right superior and inferior pubic ramus and bilateral pubic symphysis Appreciate Ortho input and recommendation CT of the pelvis showed acute to subacute bilateral sacral and pubic fractures with mild surrounding disorganized contusional change in the anterior and right pelvis Awaiting further recommendation from the Ortho regarding the management but most likely going to be conservative management (4) Weakness: (5) 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 Hand Brain MRI with and without contrast given her metastatic brain involvement as outlined in report EEG ordered as outlined below (6) Hypothyroidism: Plan: As below Plan Notes from Prior Hospitalist: Ms. Garcia is a 63-year-old female who presents with AMS and generalized weakness and in a disheveled state incontinent of urine. The patient has a medical history complex of melanoma of the left leg originally diagnosed in 2021 with brain mets and a craniotomy and resection under the care of Dr. Hand on 08/20/2021. Patient is disheveled. She is awake alert oriented to herself only and was able to state that she is in a hospital but said that the year was 10[birth year]23/1921. when asked who takes care of her she said that her dogs do. She was able to state that she lives with her Kwame and feels safe at home. Mild leukocytosis 11.9, TSH elevated at 17.4, bio fire negative. Head CT negative for ICH, midline shift or SDH. Chest x-ray negative for acute cardiopulmonary disease. TSH 17.4. Most recent inpatient hospital stay here was in March with similar symptoms including possible seizure activity for which an EEG indicated nonspecific encephalopathy without seizure-like activity. A pelvic/hip xray was performed with results identifying a fracture of the right superior and inferior pubic ramus and bilateral pubic symphysis. Patient will be admitted for further evaluation and management with additional IV rehydration, will obtain VBG and ammonia levels along with a brain MRI with and without contrast given her metastatic brain involvement, will obtain EEG and continue IV Rocephin and await urine culture. Will increase Thyroid medication given elevated TSH. Will keep n.p.o. until cleared by speech therapy, PT OT and will involve orthopedics given her new identified fracture. Possible Seizure: Based on disheveled state, incontinence of urine; considered seizure like activity Keppra 2 G given in ED Brain MRI and EEG ordered Is prescribed Tegretol based on outpatient records; will obtain Tegretol level Hypothyroidism: Chronic TSH 17.4 Prescribed levothyroxine 200 mcg daily Based on labs today; will increase levothyroxine to 225 mc daily Disheveled state: Severe Protein malnourishment: Patient is disheveled. Appears there could be non-compliance and care at home. BMI 18 Called patient Kwame at [phone] as discussed above Could benefit from Office on Aging involvement for resources and care needs. Disposition: PCP: Dr. Solorio Code Status: Full Code VTE Prophylaxis: Teds and SCDs for now Admission and Anticipated Discharge Date Admission Date: July 06, 2024 Subjective 07/07/2024 The patient was seen and examined in telemetry unit She remains confused but does not have any symptoms of pain, shortness of breath, nausea and or vomiting or any agitation Denies any significant pain even with movement of the lower extremities Review of Systems Review of Systems: Unobtainable due to cognitive status Physical Exam Physical Exam: Lying in bed without any acute distress Constitutional: well developed, well nourished, + ill appearing and + thin; no acute distress Eyes: PERRL, conjunctivae normal, anicteric sclerae ENMT: external ear and nose normal, oropharynx normal Neck: trachea midline, no thyromegaly Respiratory: no respiratory distress Auscultation: lungs clear to auscu ltation bilaterally Cardiovascular: Rate/Rhythm: regular rate and regular rhythm; not tachycardic Heart Sounds: normal S1 and normal S2; no murmur Extremities: no edema Gastrointestinal (Abdomen): Inspection/Auscultation: normal bowel sounds; abdomen not distended Percussion/Palpation: abdomen soft; abdomen nontender Musculoskeletal: No acute arthritis involving any of the joint. movements of the lower extremity, hip and the knee joints produced some pain in the pelvis Neurologic: Alert and awake. Acutely confused but no delirium and remains forgetful Lymphatic: no cervical or axillary lymphadenopathy Results & Data Results & Data Vital Signs (Past 12 Hours) Vital Signs Temp Pulse Pulse Resp BP Pulse Ox O2 Del Method 07/07/24 12:11 36.5 C 80 20 115/74 97 Room Air 07/07/24 07:43 36.6 C 79 20 132/69 99 Room Air 07/07/24 07:36 Room Air 07/07/24 07:16 71 07/07/24 03:52 36.7 C 77 18 120/75 98 Room Air Laboratory Results Short CBC 07/07/24 Range/Units 06:45 WBC 10.82 H (4.8-10.8) K/ul Hgb 12.5 (12.0-16.0) g/dl Hct 36.6 L (37.0-47.0) % Plt Count 453 H (130-400) K/uL BMP 07/07/24 06:45 Sodium 138 Potassium 3.2 L Chloride 103 Carbon Dioxide 30 BUN 18 Creatinine 0.67 Glucose 121 H Calcium 8.0 L Cardiac Enzymes 07/07/24 Range/Units 06:45 Total Creatine Kinase 230 H (26-192) U/L Medications Administered Current Inpatient Medications Acetaminophen (Acetaminophen 325 Mg Tab) 650 mg PO Q4H PRN PRN Reason: Pain or Fever Stop: 08/05/24 11:40 Last Admin: 07/07/24 09:16 Dose: 650 mg Al Hydrox/Mg Hydrox/Simethicone (Aluminum/Magnesium Susp 30 Ml Udc) 15 ml PO Q4H PRN PRN Reason: Dyspepsia Stop: 08/05/24 11:40 Atorvastatin Calcium (Atorvastatin 20 Mg Tab) 20 mg PO QPM [facility] Stop: 08/05/24 20:59 Last Admin: 07/06/24 23:35 Dose: Not Given Carbamazepine (Carbamazepine Xr 200 Mg Tabcr) 600 mg PO QAM [facility] Stop: 08/06/24 08:59 Carbamazepine (Carbamazepine Xr 200 Mg Tabcr) 400 mg PO HS [facility] Stop: 08/05/24 20:59 Last Admin: 07/06/24 22:50 Dose: Not Given Ergocalciferol (Ergocalciferol 1250 Mcg (50,000 Units) Cap) 1,250 mcg PO We@0900 [facility] Stop: 08/06/24 08:59 Last Admin: 07/07/24 09:03 Dose: 1,250 mcg Ceftriaxone Sodium (Rocephin) 2,000 mg in 50 mls @ 100 mls/hr IV Q24H [facility] Stop: 07/17/24 08:59 Last Infusion: 07/07/24 09:40 Dose: Infused Levetiracetam (Levetiracetam 500 Mg/5 Ml Vial) 500 mg IV BID [facility] Stop: 08/05/24 22:44 Last Admin: 07/07/24 09:03 Dose: 500 mg Levothyroxine Sodium (Levothyroxine Sodium 75 Mcg Tablet) 225 mcg PO DAILYBB [facility] Stop: 08/06/24 06:29 Last Admin: 07/07/24 05:34 Dose: 225 mcg Lorazepam (Lorazepam 2 Mg/1 Ml Vial) 2 mg IV Q8H PRN PRN Reason: seizures Stop: 08/05/24 14:00 Losartan Potassium (Losartan Potassium 50 Mg Tab) [facility] Stop: 08/06/24 08:59 Last Admin: 07/07/24 09:04 Dose: 50 mg Magnesium Hydroxide (Magnesium Hydroxide Susp 30 Ml Udc) 30 ml PO Q12H PRN PRN Reason: Constipation Stop: 08/05/24 11:40 Miscellaneous (Dabrafenib: Order Awaiting Action) 1 each N/A QS [facility] Stop: 08/05/24 15:59 Last Admin: 07/07/24 08:57 Dose: Not Given Miscellaneous (Mekinist: Order Awaiting Action) 1 each N/A QS [facility] Stop: 08/05/24 15:59 Last Admin: 07/07/24 08:58 Dose: Not Given Ondansetron HCl (Ondansetron Inj 2 Mg/Ml 2 Ml Vial) 4 mg IV Q6H PRN PRN Reason: Nausea Stop: 08/05/24 11:40 Paroxetine HCl (Paroxetine Hcl 20 Mg Tab) 40 mg PO QAM [facility] Stop: 08/06/24 08:59 Polyethylene Glycol (Polyethylene (Miralax) 17 Gm Pack) 17 gm PO DAILY PRN PRN Reason: Constipation Stop: 08/05/24 11:40
[2024-07-07] MEDS: PARoxetine HCL 20 MG TAB PO SCH (13:50)
--- NOTE | 2024-07-07 17:31 | Orthopedic Progress Note ---
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 Per the admission H&P, the patient's notes that she has fallen a few days ago and since that time his had difficulty ambulating. The patient is unable to participate in exam or history gathering, as such the above was all gathered via chart review. Upon admission, pelvis x-rays did demonstrate pubic ramus fractures on the right of the superior and inferior pubic ramus. Orthopedics was then consulted. I ordered a CT scan to further evaluate the pelvis injury. Upon my evaluation of the x-rays and CT scan, I do not appreciate any femoral neck or intertrochanteric hip fractures. On exam, the patient does wince with palpation of the right hemipelvis, but does not seem to be bothered by heel strike or by logroll. Based on the CT scan, she does have LC1 type injuries of both sides of her pelvis. I think that at this time these can be managed nonoperatively and the patient should be mobilized and work with PT. The injuries to both sides of her tita pelvis appear subacute with surrounding early callus formation. I am unable to tell if these findins represent injury only to this area or if these may be pathologic fractures due to her metastatic history. I think that she can continue current work up in the hospital for altered mental status, but upon discharge I believe she would do well to follow up with an Orthopaedic Oncologist either in [place] or [place] who can act as the primary contact point for her orthopaedic concerns. Admission and Anticipated Discharge Date Admission Date: July 06, 2024 Subjective no change from previous. patient remains confused, but not endorsing much hip pain Review of Systems Review of Systems: Unobtainable due to cognitive status Physical Exam Physical Exam: mild pain with attempted right hip ROM and palpation of right hemipelvis negative log roll and heel strike Results & Data Vital Signs (Past 12 Hours) Vital Signs Temp Pulse Pulse Resp BP Pulse Ox O2 Del Method 07/07/24 15:59 36.6 C 79 18 129/69 98 Room Air 07/07/24 14:08 71 07/07/24 12:11 36.5 C 80 20 115/74 97 Room Air 07/07/24 07:43 36.6 C 79 20 132/69 99 Room Air 07/07/24 07:36 Room Air 07/07/24 07:16 71
[2024-07-08 07:21] LABS: Basophils # (auto) 0.03 K/uL (0.00-0.20); Basophils % (auto) 0.3 %; Eosinophils # (auto) 0.09 K/uL (0.00-0.50); Hematocrit (blood only) 30.3 % (37.0-47.0); Hemoglobin 10.4 g/dl (12.0-16.0); Immature Granulocytes # (auto) 0.05 K/uL (0.01-0.20); Immature Granulocytes % (auto) 0.6 %; Lymphocytes # (auto) 1.26 K/uL (1.20-3.40); Mean Corpuscular Hemoglobin 32.2 pg (25.0-34.0); Mean Corpuscular Hgb Conc 34.3 g/dL (32.0-36.0); Mean Corpuscular Volume 93.8 fL (80.0-100.0); Mean Platelet Volume 9.2 fL (9.4-12.4); Monocytes # (auto) 0.62 K/uL (0.11-0.59); Monocytes % (auto) 6.9 %; Neutrophils # (auto) 6.93 K/uL (1.40-6.50); Neutrophils % (auto) 77.2 %; Platelet Count 397 K/uL (130-400); RDW Coefficient of Variation 17.8 % (11.5-14.5); RDW Standard Deviation 62.1 fL (36.4-46.3); Red Blood Count 3.23 M/uL (4.20-5.40); White Blood Count 8.98 K/ul (4.8-10.8)
[2024-07-08 07:52] LABS: BUN Creatinine Ratio 31.1 (10-20); Calcium 7.8 mg/dl (8.6-10.3); Creatinine Clr Calc Pharmacy 106.2 ml/min; Potassium 3.6 mmol/L (3.5-5.1)
[2024-07-08 07:54] LABS: Magnesium 1.6 mg/dl (1.7-2.4); Phosphorus 1.3 mg/dl (2.5-4.9)
[2024-07-08] MEDS ORDERED: POTASSIUM PHOS 3 MMOL/1 ML INFUSION IV STA (07:57)
[2024-07-08] MEDS: POTASSIUM PHOSPHATE 24 MMOL in SODIUM CHLORIDE 0.9% 500 ML IV ONE (09:34)
[2024-07-08] MEDS: TRAMETINIB DIMETHYL SULFOXIDE 0.5 MG PO SCH (13:25)
[2024-07-08] MEDS: DABRAFENIB MESYLATE 75 MG PO SCH (13:25)
--- NOTE | 2024-07-08 13:41 | Hospitalist Progress Note ---
Date of Service July 08, 2024 Assessment & Plan (1) AMS (altered mental status): Plan: AMS: Weakness: Secondary to possible worsening of mets, UTI, seizure or others as outlined below On Admission -AAO x 1 Mild leukocytosis 11.9, lactate 0.8,Bio fire (-) Head CT negative for ICH, midline shift or SDH, CXR negative for acute cardiopulmonary disease TSH 17.4; see outlined below VBG and ammonia levels are unremarkable Received 1LNSB; ordered additional 2LNSB as patient has dry mucus membranes EKG showed normal sinus rhythm, T wave abnormality, nonspecific inferolateral leads. Trop negative. Remains pleasantly confused without any acute distress at rest She seems to be at her baseline and has been talking almost normally and remains confused as before Has had PT evaluation and recommended rehab (2) Acute UTI (urinary tract infection): Plan: UA nitrate +, LE 1+, tea colored urine Urine culture and blood pending Started empirically on Rocephin; await blood and urine cultures and adjust as necessary Urine seems to be normal colored and the white count has been normalized (3) Closed fracture of pubic ramus: Plan: Closed fracture of right pubic ramus: Fracture of the right superior and inferior pubic ramus and bilateral pubic symphysis Appreciate Ortho input and recommendation CT of the pelvis showed acute to subacute bilateral sacral and pubic fractures with mild surrounding disorganized contusional change in the anterior and right pelvis Awaiting further recommendation from the Ortho regarding the management but most likely going to be conservative management Appreciate Ortho recommendation to continue current conservative management and outpatient appointment with orthopedic oncologist either in [place] or in [place] (4) Weakness: (5) 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 Hand Brain MRI with and without contrast given her metastatic brain involvement as outlined in report EEG ordered as outlined below (6) Hypothyroidism: Plan: As below Plan Notes from Prior Hospitalist: Ms. Garcia is a 63-year-old female who presents with AMS and generalized weakness and in a disheveled state incontinent of urine. The patient has a medical history complex of melanoma of the left leg originally diagnosed in 2021 with brain mets and a craniotomy and resection under the care of Dr. Hand on 08/20/2021. Patient is disheveled. She is awake alert oriented to herself only and was able to state that she is in a hospital but said that the year was 10/23/1921. when asked who takes care of her she said that her dogs do. She was able to state that she lives with her Kwame and feels safe at home. Mild leukocytosis 11.9, TSH elevated at 17.4, bio fire negative. Head CT negative for ICH, midline shift or SDH. Chest x-ray negative for acute cardiopulmonary disease. TSH 17.4. Most recent inpatient hospital stay here was in March with similar symptoms including possible seizure activity for which an EEG indicated nonspecific encephalopathy without seizure-like activity. A pelvic/hip xray was performed with results identifying a fracture of the right superior and inferior pubic ramus and bilateral pubic symphysis. Patient will be admitted for further evaluation and management with additional IV rehydration, will obtain VBG and ammonia levels along with a brain MRI with and without contrast given her metastatic brain involvement, will obtain EEG and continue IV Rocephin and await urine culture. Will increase Thyroid medication given elevated TSH. Will keep n.p.o. until cleared by speech therapy, PT OT and will involve orthopedics given her new identified fracture. Possible Seizure: Based on disheveled state, incontinence of urine; considered seizure like activity Keppra 2 G given in ED Brain MRI and EEG ordered Is prescribed Tegretol based on outpatient records; will obtain Tegretol level Hypothyroidism: Chronic TSH 17.4 Prescribed levothyroxine 200 mcg daily Based on labs today; will increase levothyroxine to 225 mc daily Disheveled state: Severe Protein malnourishment: Patient is disheveled. Appears there could be non-compliance and care at home. BMI 18 Called patient Kwame at [phone] as discussed above Could benefit from Office on Aging involvement for resources and care needs. Disposition: PCP: Dr. Solorio Code Status: Full Code VTE Prophylaxis: Teds and SCDs for now Admission and Anticipated Discharge Date Admission Date: July 06, 2024 Subjective 07/07/2024 The patient was seen and examined in telemetry unit She remains confused but does not have any symptoms of pain, shortness of breath, nausea and or vomiting or any agitation Denies any significant pain even with movement of the lower extremities 07/08/2024 The patient was seen and examined in telemetry unit She has been feeling much better Denies any significant symptoms and remains pleasantly confused Review of Systems Review of Systems: Patient is not a reliable historian. Denies pain. Physical Exam Physical Exam: Lying in bed without any acute distress Constitutional: well developed, well nourished, + ill appearing and + thin; no acute distress Eyes: PERRL, conjunctivae normal, anicteric sclerae ENMT: external ear and nose normal, oropharynx normal Neck: trachea midline, no thyromegaly Respiratory: no respiratory distress Auscultation: lungs clear to auscultation bilaterally Cardiovascular: Rate/Rhythm: regular rate and regular rhythm; not tachycardic Heart Sounds: normal S1 and normal S2; no murmur Extremities: no edema Gastrointestinal (Abdomen): Inspection/Auscultation: normal bowel sounds; abdomen not distended Percussion/Palpation: abdomen soft; abdomen nontender Musculoskeletal: Has back pain and pain in the pelvis but denies any significant arthritis involving any of the joint Neurologic: normal touch/pain/proprioception and moves all extremities Lymphatic: no cervical or axillary lymphadenopathy Results & Data Results & Data Vital Signs (Past 12 Hours) Vital Signs Temp Pulse Pulse Resp BP Pulse Ox O2 Del Method 07/08/24 11:35 36.3 C L 71 18 116/76 97 Room Air 07/08/24 08:00 72 07/08/24 07:55 36.5 C 72 18 144/80 H 93 Room Air 07/08/24 03:11 36.9 C 70 18 138/77 93 Room Air Laboratory Results Short CBC 07/08/24 Range/Units 06:24 WBC 8.98 (4.8-10.8) K/ul Hgb 10.4 L (12.0-16.0) g/dl Hct 30.3 L (37.0-47.0) % Plt Count 397 (130-400) K/uL BMP 07/08/24 06:24 Sodium 135 L Potassium 3.6 Chloride 105 Carbon Dioxide 27 BUN 14 Creatinine 0.45 L Glucose 87 Calcium 7.8 L Medications Administered Current Inpatient Medications Acetaminophen (Acetaminophen 325 Mg Tab) 650 mg PO Q4H PRN PRN Reason: Pain or Fever Stop: 08/05/24 11:40 Last Admin: 07/07/24 09:16 Dose: 650 mg Al Hydrox/Mg Hydrox/Simethicone (Aluminum/Magnesium Susp 30 Ml Udc) 15 ml PO Q4H PRN PRN Reason: Dyspepsia Stop: 08/05/24 11:40 Atorvastatin Calcium (Atorvastatin 20 Mg Tab) 20 mg PO QPM [facility] Stop: 08/05/24 20:59 Last Admin: 07/07/24 20:00 Dose: 20 mg Carbamazepine (Carbamazepine Xr 200 Mg Tabcr) 600 mg PO QAM [facility] Stop: 08/06/24 08:59 Carbamazepine (Carbamazepine Xr 200 Mg Tabcr) 400 mg PO HS [facility] Stop: 08/05/24 20:59 Last Admin: 07/06/24 22:50 Dose: Not Given Dabrafenib ((Pom) Dabrafenib Mesylate 75 Mg Capsule) 1 each PO BID [facility] Stop: 08/07/24 12:14 Last Admin: 07/08/24 13:25 Dose: 1 each Ergocalciferol (Ergocalciferol 1250 Mcg (50,000 Units) Cap) 1,250 mcg PO We@0900 [facility] Stop: 08/06/24 08:59 Last Admin: 07/07/24 09:03 Dose: 1,250 mcg Ceftriaxone Sodium (Rocephin) 2,000 mg in 50 mls @ 100 mls/hr IV Q24H [facility] Stop: 07/17/24 08:59 Last Infusion: 07/08/24 09:29 Dose: Infused Potassium Phosphate 24 mmol/ (Sodium Chloride) 508 mls @ 88 mls/hr IV ONE ONE Stop: 07/08/24 14:16 Last Admin: 07/08/24 09:34 Dose: 88 mls/hr Levetiracetam (Levetiracetam 500 Mg/5 Ml Vial) 500 mg IV BID [facility] Stop: 08/05/24 22:44 Last Admin: 07/08/24 11:37 Dose: 500 mg Levothyroxine Sodium (Levothyroxine Sodium 75 Mcg Tablet) 225 mcg PO DAILYBB [facility] Stop: 08/06/24 06:29 Last Admin: 07/08/24 06:30 Dose: 225 mcg Lorazepam (Lorazepam 2 Mg/1 Ml Vial) 2 mg IV Q8H PRN PRN Reason: seizures Stop: 08/05/24 14:00 Losartan Potassium (Losartan Potassium 50 Mg Tab) 50 mg PO QAM [facility] Stop: 08/06/24 08:59 Last Admin: 07/08/24 08:51 Dose: 50 mg Magnesium Hydroxide (Magnesium Hydroxide Susp 30 Ml Udc) 30 ml PO Q12H PRN PRN Reason: Constipation Stop: 08/05/24 11:40 Ondansetron HCl (Ondansetron Inj 2 Mg/Ml 2 Ml Vial) 4 mg IV Q6H PRN PRN Reason: Nausea Stop: 08/05/24 11:40 Paroxetine HCl (Paroxetine Hcl 20 Mg Tab) 40 mg PO QAM [facility] Stop: 08/06/24 08:59 Last Admin: 07/08/24 08:51 Dose: 40 mg Polyethylene Glycol (Polyethylene (Miralax) 17 Gm Pack) 17 gm PO DAILY PRN PRN Reason: Constipation Stop: 08/05/24 11:40 Trametinib ((Pom) Trametinib Dimethyl Sulfoxide 0.5 Mg Tablet) 3 each PO DAILY [facility] Stop: 08/07/24 08:59 Last Admin: 07/08/24 13:25 Dose: 3 each
[2024-07-08] MEDS ORDERED: DABRAFENIB MESYLATE 75 MG PO SCH (21:00)
[2024-07-09] MEDS ORDERED: TRAMETINIB DIMETHYL SULFOXIDE 0.5 MG PO SCH ×2 (09:00→12:15)
[2024-07-09 09:23] LABS: BUN Creatinine Ratio 23.1 (10-20); Calcium 7.9 mg/dl (8.6-10.3); Creatinine Clr Calc Pharmacy 95.8 ml/min; Magnesium 1.5 mg/dl (1.7-2.4); Phosphorus 1.7 mg/dl (2.5-4.9); Potassium 4.2 mmol/L (3.5-5.1)
--- NOTE | 2024-07-09 13:18 | Hospitalist Progress Note ---
Date of Service July 09, 2024 Assessment & Plan (1) AMS (altered mental status): Plan: AMS: Acute metabolic encephalopathy Weakness: Secondary to possible worsening of mets, UTI, seizure or others as outlined below On Admission -AAO x 1 Mild leukocytosis 11.9, lactate 0.8,Bio fire (-) Head CT negative for ICH, midline shift or SDH, CXR negative for acute cardiopulmonary disease TSH 17.4; see outlined below VBG and ammonia levels are unremarkable Received 1LNSB; ordered additional 2LNSB as patient has dry mucus membranes EKG showed normal sinus rhythm, T wave abnormality, nonspecific inferolateral leads. Trop negative. Remains pleasantly confused without any acute distress at rest She seems to be at her baseline and has been talking almost normally and remains confused as before Has had PT evaluation and recommended rehab Remains medically stable and ready to be discharged when approved to a facility (2) Acute UTI (urinary tract infection): Plan: UA nitrate +, LE 1+, tea colored urine Urine culture and blood pending Started empirically on Rocephin; await blood and urine cultures and adjust as necessary Urine seems to be normal colored and the white count has been normalized (3) Closed fracture of pubic ramus: Plan: Closed fracture of right pubic ramus: Fracture of the right superior and inferior pubic ramus and bilateral pubic symphysis Appreciate Ortho input and recommendation CT of the pelvis showed acute to subacute bilateral sacral and pubic fractures with mild surrounding disorganized contusional change in the anterior and right pelvis Awaiting further recommendation from the Ortho regarding the management but most likely going to be conservative management Appreciate Ortho recommendation to continue current conservative management and outpatient appointment with orthopedic oncologist either in [place] or in [place] (4) Weakness: (5) 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 Hand Brain MRI with and without contrast given her metastatic brain involvement as outlined in report EEG has not been done She was advised to keep her appointment with her oncologist as an outpatient (6) Hypothyroidism: Plan: As below Plan Notes from Prior Hospitalist: Ms. Garcia is a 63-year-old female who presents with AMS and generalized weakness and in a disheveled state incontinent of urine. The patient has a medical history complex of melanoma of the left leg originally diagnosed in 2021 with brain mets and a craniotomy and resection under the care of Dr. Hand on 08/20/2021. Patient is disheveled. She is awake alert oriented to herself only and was able to state that she is in a hospital but said that the year was 10/23/1921. when asked who takes care of her she said that her dogs do. She was able to state that she lives with her Kwame and feels safe at home. Mild leukocytosis 11.9, TSH elevated at 17.4, bio fire negative. Head CT negative for ICH, midline shift or SDH. Chest x-ray negative for acute cardiopulmonary disease. TSH 17.4. Most recent inpatient hospital stay here was in March with similar symptoms including possible seizure activity for which an EEG indicated nonspecific encephalopathy without seizure-like activity. A pelvic/hip xray was performed with results identifying a fracture of the right superior and inferior pubic ramus and bilateral pubic symphysis. Patient will be admitted for further evaluation and management with additional IV rehydration, will obtain VBG and ammonia levels along with a brain MRI with and without contrast given her metastatic brain involvement, will obtain EEG and continue IV Rocephin and await urine culture. Will increase Thyroid medication given elevated TSH. Will keep n.p.o. until cleared by speech therapy, PT OT and will involve orthopedics given her new identified fracture. Possible Seizure: Based on disheveled state, incontinence of urine; considered seizure like activity Keppra 2 G given in ED Brain MRI and EEG ordered Is prescribed Tegretol based on outpatient records; will obtain Tegretol level Carbamazepine level is 11.2 Will discontinue Keppra and start on carbamazepine at a lower dose of 400 mg daily Hypothyroidism: Chronic TSH 17.4 Prescribed levothyroxine 200 mcg daily Based on labs today; will increase levothyroxine to 225 mc daily Disheveled state: Severe Protein malnourishment: Patient is disheveled. Appears there could be non-compliance and care at home. BMI 18 Called patient Kwame at [phone] as discussed above Could benefit from Office on Aging involvement for resources and care needs. Disposition: PCP: Dr. Solorio Code Status: Full Code VTE Prophylaxis: Teds and SCDs for now Admission and Anticipated Discharge Date Admission Date: July 06, 2024 Subjective 07/07/2024 The patient was seen and examined in telemetry unit She remains confused but does not have any symptoms of pain, shortness of breath, nausea and or vomiting or any agitation Denies any significant pain even with movement of the lower extremities 07/08/2024 The patient was seen and examined in telemetry unit She has been feeling much better Denies any significant symptoms and remains pleasantly confused 07/09/2024 The patient was seen and examined in telemetry unit She has been much better today without any acute distress Has had physical therapy and recommended rehab She will need to see orthopedic oncologist as an outpatient for pelvic fracture Review of Systems Review of Systems: Unobtainable due to cognitive status Physical Exam Physical Exam: Lying in bed without any acute distress Constitutional: well developed, well nourished, + ill appearing and + thin; no acute distress Eyes: PERRL, conjunctivae normal, anicteric sclerae ENMT: external ear and nose normal, oropharynx normal Neck: trachea midline, no thyromegaly Respiratory: no respiratory distress Auscultation: lungs clear to auscultation bilaterally Cardiovascular: Rate/Rhythm: regular rate and regular rhythm; not tachycardic Heart Sounds: normal S1 and normal S2; no murmur Extremities: no edema Gastrointestinal (Abdomen): Inspection/Auscultation: normal bowel sounds; abdomen not distended Percussion/Palpation: abdomen soft; abdomen nontender Musculoskeletal: No acute arthritis involving any of the joint Neurologic: normal touch/pain/proprioception and moves all extremities Lymphatic: no cervical or axillary lymphadenopathy Results & Data Results & Data Vital Signs (Past 12 Hours) Vital Signs Temp Pulse Resp BP Pulse Ox O2 Del Method 07/09/24 07:44 36.7 C 78 18 143/80 H 90 Room Air 07/09/24 03:35 36.9 C 77 19 138/74 92 Room Air Laboratory Results [facility] 07/09/24 08:39 Sodium 133 L Potassium 4.2 Chloride 105 Carbon Dioxide 25 BUN 12 Creatinine 0.52 L Glucose 89 Calcium 7.9 L Medications Administered Current Inpatient Medications Acetaminophen (Acetaminophen 325 Mg Tab) 650 mg PO Q4H PRN PRN Reason: Pain or Fever Stop: 08/05/24 11:40 Last Admin: 07/07/24 09:16 Dose: 650 mg Al Hydrox/Mg Hydrox/Simethicone (Aluminum/Magnesium Susp 30 Ml Udc) 15 ml PO Q4H PRN PRN Reason: Dyspepsia Stop: 08/05/24 11:40 Atorvastatin Calcium (Atorvastatin 20 Mg Tab) 20 mg PO QPM [facility] Stop: 08/05/24 20:59 Last Admin: 07/08/24 21:28 Dose: 20 mg Carbamazepine (Carbamazepine Xr 200 Mg Tabcr) 600 mg PO QAM [facility] Stop: 08/06/24 08:59 Carbamazepine (Carbamazepine Xr 200 Mg Tabcr) 400 mg PO HS [facility] Stop: 08/05/24 20:59 Last Admin: 07/06/24 22:50 Dose: Not Given Dabrafenib ((Pom) Dabrafenib Mesylate 75 Mg Capsule) 1 each PO BID [facility] Stop: 08/07/24 12:14 Last Admin: 07/09/24 08:32 Dose: 1 each Ergocalciferol (Ergocalciferol 1250 Mcg (50,000 Units) Cap) 1,250 mcg PO We@0 900 [facility] Stop: 08/06/24 08:59 Last Admin: 07/07/24 09:03 Dose: 1,250 mcg Ceftriaxone Sodium (Rocephin) 2,000 mg in 50 mls @ 100 mls/hr IV Q24H [facility] Stop: 07/17/24 08:59 Last Infusion: 07/09/24 09:03 Dose: Infused Levetiracetam (Levetiracetam 500 Mg/5 Ml Vial) 500 mg IV BID [facility] Stop: 08/05/24 22:44 Last Admin: 07/09/24 08:32 Dose: 500 mg Levothyroxine Sodium (Levothyroxine Sodium 75 Mcg Tablet) 225 mcg PO DAILYBB [facility] Stop: 08/06/24 06:29 Last Admin: 07/09/24 05:53 Dose: 225 mcg Lorazepam (Lorazepam 2 Mg/1 Ml Vial) 2 mg IV Q8H PRN PRN Reason: seizures Stop: 08/05/24 14:00 Losartan Potassium (Losartan Potassium 50 Mg Tab) 50 mg PO QAM [facility] Stop: 08/06/24 08:59 Last Admin: 07/09/24 08:33 Dose: 50 mg Magnesium Hydroxide (Magnesium Hydroxide Susp 30 Ml Udc) 30 ml PO Q12H PRN PRN Reason: Constipation Stop: 08/05/24 11:40 Ondansetron HCl (Ondansetron Inj 2 Mg/Ml 2 Ml Vial) 4 mg IV Q6H PRN PRN Reason: Nausea Stop: 08/05/24 11:40 Paroxetine HCl (Paroxetine Hcl 20 Mg Tab) 40 mg PO QAM [facility] Stop: 08/06/24 08:59 Last Admin: 07/09/24 08:33 Dose: 40 mg Polyethylene Glycol (Polyethylene (Miralax) 17 Gm Pack) 17 gm PO DAILY PRN PRN Reason: Constipation Stop: 08/05/24 11:40 Trametinib ((Pom) Trametinib Dimethyl Sulfoxide 0.5 Mg Tablet) 3 each PO DAILY [facility] Stop: 08/07/24 08:59 Last Admin: 07/09/24 08:33 Dose: 3 each
[2024-07-09] MEDS: carBAMazepine XR 200 MG TABCR PO SCH (21:30)
[2024-07-10] MEDS ORDERED: POTASSIUM PHOS 3 MMOL/1 ML INFUSION IV STA (08:47)
[2024-07-10] MEDS: MAGNESIUM OXIDE 400 MG TAB PO SCH (09:13)
[2024-07-10] MEDS: POTASSIUM PHOSPHATE 21 MMOL in SODIUM CHLORIDE 0.9% 500 ML IV ONE (10:03)
--- NOTE | 2024-07-10 10:47 | Hospitalist Progress Note ---
Date of Service July 10, 2024 Assessment & Plan (1) AMS (altered mental status): Plan: AMS: Acute metabolic encephalopathy Weakness: Secondary to possible worsening of mets, UTI, seizure or others as outlined below On Admission -AAO x 1 Mild leukocytosis 11.9, lactate 0.8,Bio fire (-) Head CT negative for ICH, midline shift or SDH, CXR negative for acute cardiopulmonary disease TSH 17.4; see outlined below VBG and ammonia levels are unremarkable Received 1LNSB; ordered additional 2LNSB as patient has dry mucus membranes EKG showed normal sinus rhythm, T wave abnormality, nonspecific inferolateral leads. Trop negative. Remains pleasantly confused without any acute distress at rest She seems to be at her baseline and has been talking almost normally and remains confused as before Has had PT evaluation and recommended rehab Remains medically stable and ready to be discharged when approved to a facility No acute delirium and mental status seems to be at her baseline Awaiting placement (2) Acute UTI (urinary tract infection): Plan: UA nitrate +, LE 1+, tea colored urine Urine culture and blood pending Started empirically on Rocephin; await blood and urine cultures and adjust as necessary Urine seems to be normal colored and the white count has been normalized Urine and blood cultures are negative except urine culture showed 3 types of organisms likely contaminant Will discontinue antibiotic (3) Closed fracture of pubic ramus: Plan: Closed fracture of right pubic ramus: Fracture of the right superior and inferior pubic ramus and bilateral pubic symphysis Appreciate Ortho input and recommendation CT of the pelvis showed acute to subacute bilateral sacral and pubic fractures with mild surrounding disorganized contusional change in the anterior and right pelvis Awaiting further recommendation from the Ortho regarding the management but most likely going to be conservative management Appreciate Ortho recommendation to continue current conservative management and outpatient appointment with orthopedic oncologist either in [place] or in [place] Conservative management now and will have a follow-up with outpatient orthopedic oncologist as per recommendation from the orthopedic service (4) Weakness: (5) 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 Hand Brain MRI with and without contrast given her metastatic brain involvement as outlined in report EEG has not been done She was advised to keep her appointment with her oncologist as an outpatient (6) Hypothyroidism: Plan: As below Plan Notes from Prior Hospitalist: Ms. Garcia is a 63-year-old female who presents with AMS and generalized weakness and in a disheveled state incontinent of urine. The patient has a medical history complex of melanoma of the left leg originally diagnosed in 2021 with brain mets and a craniotomy and resection under the care of Dr. Hand on 08/20/2021. Patient is disheveled. She is awake alert oriented to herself only and was able to state that she is in a hospital but said that the year was 10/23/1921. when asked who takes care of her she said that her dogs do. She was able to state that she lives with her Kwame and feels safe at home. Mild leukocytosis 11.9, TSH elevated at 17.4, bio fire negative. Head CT negative for ICH, midline shift or SDH. Chest x-ray negative for acute cardiopulmonary disease. TSH 17.4. Most recent inpatient hospital stay here was in March with similar symptoms including possible seizure activity for which an EEG indicated nonspecific encephalopathy without seizure-like activity. A pelvic/hip xray was performed with results identifying a fracture of the right superior and inferior pubic ramus and bilateral pubic symphysis. Patient will be admitted for further evaluation and management with additional IV rehydration, will obtain VBG and ammonia levels along with a brain MRI with and without contrast given her metastatic brain involvement, will obtain EEG and continue IV Rocephin and await urine culture. Will increase Thyroid medication given elevated TSH. Will keep n.p.o. until cleared by speech therapy, PT OT and will involve orthopedics given her new identified fracture. Possible Seizure: Based on disheveled state, incontinence of urine; considered seizure like activity Keppra 2 G given in ED Brain MRI and EEG ordered Is prescribed Tegretol based on outpatient records; will obtain Tegretol level Carbamazepine level is 11.2 Will discontinue Keppra and start on carbamazepine at a lower dose of 400 mg daily Will continue with carbamazepine with a dose of 4400 mg twice daily and stop Keppra Hypothyroidism: Chronic TSH 17.4 Prescribed levothyroxine 200 mcg daily Based on labs today; will increase levothyroxine to 225 mc daily Disheveled state: Severe Protein malnourishment: Patient is disheveled. Appears there could be non-compliance and care at home. BMI 18 Called patient Kwame at [phone] as discussed above Could benefit from [facility] on A[facility] involvement for resources and care needs. Disposition: PCP: Dr. Solorio Code Status: Full Code VTE Prophylaxis: Teds and SCDs for now will start SQ heparin Admission and Anticipated Discharge Date Admission Date: July 06, 2024 Subjective 07/07/2024 The patient was seen and examined in telemetry unit She remains confused but does not have any symptoms of pain, shortness of breath, nausea and or vomiting or any agitation Denies any significant pain even with movement of the lower extremities 07/08/2024 The patient was seen and examined in telemetry unit She has been feeling much better Denies any significant symptoms and remains pleasantly confused 07/09/2024 The patient was seen and examined in telemetry unit She has been much better today without any acute distress Has had physical therapy and recommended rehab She will need to see orthopedic oncologist as an outpatient for pelvic fracture 07/10/2024 Patient was seen and examined in telemetry unit She has been much better and does not have any acute confusion Denies any acute distress No pain at rest Review of Systems Review of Systems: All systems reviewed and are unremarkable except as noted below Physical Exam Physical Exam: Lying in bed without any acute distress Constitutional: well developed, well nourished, + ill appearing and + thin; no acute distress Eyes: PERRL, conjunctivae normal, anicteric sclerae ENMT: external ear and nose normal, oropharynx normal Neck: trachea midline, no thyromegaly Respiratory: no respiratory distress Auscultation: lungs clear to auscultation bilaterally Cardiovascular: Rate/Rhythm: regular rate and regular rhythm; not tachycardic Heart Sounds: normal S1 and normal S2; no murmur Extremities: no edema Gastrointestinal (Abdomen): Inspection/Auscultation: normal bowel sounds; abdomen not distended Percussion/Palpation: abdomen soft; abdomen nontender Musculoskeletal: Pain in the pelvis with movement of the lower extremities Neurologic: normal touch/pain/proprioception and moves all extremities Lymphatic: no cervical or axillary lymphadenopathy Results & Data Results & Data Vital Signs (Past 12 Hours) Vital Signs Temp Pulse Pulse Resp BP Pulse Ox O2 Del Method 07/10/24 08:17 36.9 C 80 18 148/85 H 96 Room Air 07/10/24 03:29 37 C 79 18 151/92 H 97 Room Air 07/10/24 00:15 74 07/09/24 23:21 37 C 75 17 165/96 H 93 Room Air Medications Administered Current Inpatient Medications Acetaminophen (Acetaminophen 325 Mg Tab) 650 mg PO Q4H PRN PRN Reason: Pain or Fever Stop: 08/05/24 11:40 Last Admin: 07/07/24 09:16 Dose: 650 mg Al Hydrox/Mg Hydrox/Simethicone (Aluminum/Magnesium Susp 30 Ml Udc) 15 ml PO Q4H PRN PRN Reason: Dyspepsia Stop: 08/05/24 11:40 Atorvastatin Calcium (Atorvastatin 20 Mg Tab) 20 mg PO QPM [facility] Stop: 08/05/24 20:59 Last Admin: 07/09/24 21:30 Dose: 20 mg Carbamazepine (Carbamazepine Xr 200 Mg Tabcr) 600 mg PO QAM PORTER Stop: 08/06/24 08:59 Carbamazepine (Carbamazepine Xr 200 Mg Tabcr) 400 mg PO BID [facility] Stop: 08/08/24 20:59 Last Admin: 07/10/24 09:11 Dose: 400 mg Dabrafenib ((Pom) Dabrafenib Mesylate 75 Mg Capsule) 1 each PO BID [facility] Stop: 08/07/24 12:14 Last Admin: 07/10/24 09:12 Dose: 1 each Ergocalciferol (Ergocalciferol 1250 Mcg (50,000 Units) Cap) 1,250 mcg PO We@0900 [facility] Stop: 08/06/24 08:59 Last Admin: 07/07/24 09:03 Dose: 1,250 mcg Ceftriaxone Sodium (Rocephin) 2,000 mg in 50 mls @ 100 mls/hr IV Q24H PORTER Stop: 07/17/24 08:59 Last Infusion: 07/10/24 09:42 Dose: Infused Potassium Phosphate 21 mmol/ (Sodium Chloride) 507 mls @ 88 mls/hr IV NOW ONE Stop: 07/10/24 15:15 Last Admin: 07/10/24 10:03 Dose: 88 mls/hr Levothyroxine Sodium (Levothyroxine Sodium 75 Mcg Tablet) 225 mcg PO DAILYBB [facility] Stop: 08/06/24 06:29 Last Admin: 07/10/24 06:23 Dose: 225 mcg Lorazepam (Lorazepam 2 Mg/1 Ml Vial) 2 mg IV Q8H PRN PRN Reason: seizures Stop: 08/05/24 14:00 Losartan Potassium (Losartan Potassium 50 Mg Tab) 50 mg PO QAM [facility] Stop: 08/06/24 08:59 Last Admin: 07/10/24 09:12 Dose: 50 mg Magnesium Hydroxide (Magnesium Hydroxide Susp 30 Ml Udc) 30 ml PO Q12H PRN PRN Reason: Constipation Stop: 08/05/24 11:40 Magnesium Oxide (Magnesium Oxide 400 Mg Tab) 400 mg PO BID [facility] Stop: 08/09/24 08:59 Last Admin: 07/10/24 09:13 Dose: 400 mg Ondansetron HCl (Ondansetron Inj 2 Mg/Ml 2 Ml Vial) 4 mg IV Q6H PRN PRN Reason: Nausea Stop: 08/05/24 11:40 Paroxetine HCl (Paroxetine Hcl 20 Mg Tab) 40 mg PO QAM [facility] Stop: 08/06/24 08:59 Last Admin: 07/10/24 09:12 Dose: 40 mg Polyethylene Glycol (Polyethylene (Miralax) 17 Gm Pack) 17 gm PO DAILY PRN PRN Reason: Constipation Stop: 08/05/24 11:40 Trametinib ((Pom) Trametinib Dimethyl Sulfoxide 0.5 Mg Tablet) 3 each PO DAILY [facility] Stop: 08/07/24 08:59 Last Admin: 07/10/24 09:12 Dose: 3 each
[2024-07-10] MEDS ORDERED: SODIUM CHLORIDE 0.65% NA SOLN 45 ML (OCEAN) PRN (19:30)
[2024-07-11 07:50] LABS: Basophils # (auto) 0.04 K/uL (0.00-0.20); Basophils % (auto) 0.6 %; Eosinophils # (auto) 0.23 K/uL (0.00-0.50); Eosinophils % (auto) 3.3 %; Hematocrit (blood only) 32.6 % (37.0-47.0); Hemoglobin 10.9 g/dl (12.0-16.0); Immature Granulocytes # (auto) 0.08 K/uL (0.01-0.20); Immature Granulocytes % (auto) 1.2 %; Lymphocytes % (auto) 23.1 %; Mean Corpuscular Hemoglobin 31.5 pg (25.0-34.0); Mean Corpuscular Hgb Conc 33.4 g/dL (32.0-36.0); Mean Corpuscular Volume 94.2 fL (80.0-100.0); Mean Platelet Volume 8.5 fL (9.4-12.4); Monocytes # (auto) 0.58 K/uL (0.11-0.59); Monocytes % (auto) 8.4 %; Neutrophils # (auto) 4.39 K/uL (1.40-6.50); Neutrophils % (auto) 63.4 %; Platelet Count 489 K/uL (130-400); RDW Coefficient of Variation 17.7 % (11.5-14.5); RDW Standard Deviation 61.7 fL (36.4-46.3); Red Blood Count 3.46 M/uL (4.20-5.40); White Blood Count 6.92 K/ul (4.8-10.8)
[2024-07-11 08:22] LABS: Calcium 8.2 mg/dl (8.6-10.3); Creatinine Clr Calc Pharmacy 107.5 ml/min; Magnesium 1.8 mg/dl (1.7-2.4); Phosphorus 2.8 mg/dl (2.5-4.9); Potassium 4.4 mmol/L (3.5-5.1)
--- NOTE | 2024-07-11 14:24 | Hospitalist Progress Note ---
Date of Service July 11, 2024 Assessment & Plan (1) AMS (altered mental status): (2) Acute UTI (urinary tract infection): (3) Closed fracture of pubic ramus: (4) Weakness: (5) Melanoma metastatic to brain: (6) Hypothyroidism: Plan Ms. Garcia is a 63-year-old female with a complex PMHx significant for melanoma of the left leg originally diagnosed in 2021 with brain mets s/p craniotomy and resection under the care of Dr. Hand on 08/20/2021. She presents with concern for generalized weakness and altered mental status Acute Metabolic/Toxic Encephalopathy Hx of melanoma metastatic to the brain s/p craniotomy Complicated UTI Mild leukocytosis on presentation Respiratory biofire negative VBG grossly unremarkable, no CO2 retention Ammonia level normal UA suggestive of infection, urine Cx NGTD Blood Cx x [address] with no acute findings Brain MRI noting possible postsurgical changes vs. recurrent/residual tumor changes CXR negative for acute cardiopulmonary disease EEG ordered as outlined below to rule out seizures UTI was treated with IV Rocephin, transitioned to po cefdinir to complete 10 days of rx Delirium precautions. Frequent reorientation, avoid sedating medications as able Improving Currently awaiting rehab placement Melanoma metastatic to brain Diagnosed 08/20/2021; original site left leg Completed radiation therapy 03/13 [facility] neurosurgery completed left frontal craniotomy with tumor resection under the care of Dr. Hand Brain MRI noting possible postsurgical changes vs. recurrent/residual tumor changes Neurosurgery followup after discharge Closed fracture of right pubic ramus Hip and Pelvis xray noting fracture of the right superior and inferior pubic ramus and bilateral pubic symphysis Pelvic CT ordered by ortho- noting acute to subacute bilateral sacral and pubic fractures Orthopedics consulted, appreciate recs. Recommended/stated the following: "Based on the CT scan, she does have LC1 type injuries of both sides of her pelvis. I think that at this time these can be managed nonoperatively and the patient should be mobilized and work with PT. The injuries to both sides of her tita pelvis appear subacute with surrounding early callus formation. I am unable to tell if these findins represent injury only to this area or if these may be pathologic fractures due to her metastatic history. I think that she can continue current work up in the hospital for altered mental status, but upon discharge I believe she would do well to follow up with an Orthopaedic Oncologist either in [place] or [place] who can act as the primary contact point for her orthopaedic concerns." PT/OT- recommending acute rehab Orthopedic Oncology followup after discharge Hypophosphatemia Hypomagnesemia Replete as needed Acute on Chronic Anemia Hgb drop from 12 to 10.9 AM anemia panel Continue to monitor hgb Severe Malnutrition Dietary consult Started on a multivitamin Possible Seizure Keppra 2 G given in ED Brain MRI with findings noted above EEG ordered and read currently pending Is prescribed Tegretol based on outpatient records, Tegretol/carbamazepine level normal Continue with carbamazepine at 400mg BID at this time Hypothyroidism TSH 17.4 on admission, free t4 low at 0.38 Prescribed levothyroxine 200 mcg daily On admission levothyroxine was increased to 225 mcg daily PCP followup for continued monitoring and med adjustments after acute illness Mild thrombocytosis Likely reactive Continue to monitor Continue other home meds as ordered Diet: Regular, easy to chew Code Status: Full Code VTE Prophylaxis: Teds and SCDs, heparin SQ added on 07/11 Dispo: acute rehab once accepted and bed available Admission and Anticipated Discharge Date Admission Date: July 06, 2024 Subjective Pt was seen laying in bed. AAOx2 Denies acute concerns, asking where is she going. Review of Systems Review of Systems: All systems reviewed & are unremarkable except as noted in Subjective Physical Exam Physical Exam: General: Alert, orientedx2. No acute distress Neuro: pleasantly confused HEENT: NC/AT CV: RRR Resp: Breath sounds clear bilaterally, no increased effort of breathing Abdomen: Soft, tender Extremities: No edema in lower extremities bilaterally. Results & Data Results & Data Vital Signs (Past 12 Hours) Vital Signs Temp Pulse Pulse Resp BP Pulse Ox O2 Del Method 07/11/24 08:01 36.8 C 76 18 121/52 L 94 Room Air 07/11/24 04:01 36.9 C 80 20 158/92 H 91 Room Air 07/10/24 23:17 36.8 C 74 18 156/82 H 92 Room Air 07/10/24 23:16 73 Diagnostic Findings Chest X-Ray 07/06/24 09:44 XR chest 1V portable CLINICAL HISTORY: weakness COMPARISON STUDY: Chest CT February 26, 2024. Chest radiograph April 11, 2024. FINDINGS: Postoperative findings within the spine are incidentally noted. Lung volumes are mildly diminished, unchanged. Lungs are clear. There is no pneumothorax or pleural effusion. Cardiac size is stable. Mediastinal contours are normal. There is no evidence for pulmonary edema. IMPRESSION: No acute cardiopulmonary findings. No change in appearance of the chest. ACT 112: Negative or not required by law. Electronically signed by: Tc Umaña M.D. 07/06/2024 10:[address] 07/06/24 09:44 CT head/brain wo con CLINICAL HISTORY: AMS Technique: Contiguous axial CT images of the head were acquired from the base of the skull to the vertex without intravenous contrast administration. Images were viewed in brain, subdural and bone windows. Automated dose lowering techniques and/or adjustment according to patient size were utilized for this exam. Comparison: Comparison is made to CT head 04/11/2024 Findings: Postsurgical changes of focal encephalomalacia likely postsurgical. Imaged portions of the paranasal sinuses and mastoid air cells are clear. The orbits appear normal. Old postsurgical changes are seen in the calvarium. Impression: No acute intracranial hemorrhage, no evidence of acute territorial infarction or other acute intracranial disease process. ACT 112: Negative or not required by law. Electronically signed by: Seun Gaspar M.D. 07/06/2024 10:44 AM Hip/Pelvis X-Ray 07/06/24 10:06 XR hip DIMAS 2v w pelvis CLINICAL HISTORY: fall TECHNIQUE: 2 views of the bilateral hips and single frontal view of the pelvis were obtained. Comparison: Comparison is made to CT left hip 04/16/2024 and right hip radiograph 04/11/2024 FINDINGS: Fracture of the right superior and inferior pubic ramus and bilateral pubic symphysis. Degenerative changes are seen in the bilateral hips and lumbar spine. No soft tissue abnormality is seen. IMPRESSION: Fracture of the right superior and inferior pubic ramus and bilateral pubic symphysis. At least the right pubic ramus fractures are new from prior exam. ACT 112: Negative or not required by law. Electronically signed by: Seun Gaspar M.D. 07/06/2024 11:37 AM Brain MRI 07/06/24 12:02 MRI OF THE BRAIN WITHOUT AND WITH IV CONTRAST CLINICAL HISTORY: possible seizure activity/brain mets COMPARISON STUDY: MRI of the brain April 12, 2024. Head CT July 06, 2024. TECHNIQUE: Utilizing a 1.5 Marva magnet and dedicated coil, multiplanar, multiecho imaging of the brain was performed pre and postcontrast administrati on. IV administration of 5 mL of Gadavist contrast was uneventful. Thin cut T1 post contrast imaging was performed. FINDINGS: This exam is mildly compromised by motion artifact. There are no foci of restricted diffusion to suggest acute infarct. Ventricular system is unremarkable. The basal cisterns are patent. There are no extra-axial collections. Right parietal craniotomy is noted. Encephalomalacia and T2 hyperintensity within the adjacent portion of the brain is unchanged from earlier exams dating back to March 08, 2024. Minimal enhancement is unchanged. This favors postsurgical change. A left frontal craniotomy is noted. A 4.1 x 1.6 x 1.6 cm peripherally enhancing T2 hyperintense focus within the left frontal lobe has slightly decreased in extent since MRI of April 12, 2024. The rim enhancement is slightly irregular and mildly thickened. Adjacent T2 hyperintensity has slightly increased in extent. Otherwise, the appearance of the brain is unchanged. IMPRESSION: 1. No evidence for acute infarction. 2. Status post left frontal craniotomy. 4.1 x 1.6 x 1.6 cm peripherally enhancing T2 hyperintense focus within the left frontal lobe, slightly decreased in extent since MRI of April 12, 2024. However, adjacent T2 hyperintensity has mildly increased. The findings remain nonspecific and could represent postsurgical/posttreatment change. However, residual/recurrent tumor could appear similar and continued imaging follow-up is recommended. 3. Stable postoperative findings following right parietal craniotomy with stable postoperative findings within the right frontoparietal region. ACT 112: Negative or not required by law. Electronically signed by: Tc Umaña M.D. 07/06/2024 2:[address] 07/06/24 16:21 EXAM: CT Pelvis Without Intravenous Contrast INDICATION: Pubic rami fracture. TECHNIQUE: Axial computed tomography images of the pelvis without intravenous contrast. Sagittal and coronal reformatted images were created and reviewed. This CT exam was performed using one or more of the following dose reduction techniques: automated exposure control, adjustment of the mA and/or kV according to patient size, and/or use of iterative reconstruction technique. COMPARISON: 02/26/2024 FINDINGS: Bones/joints: Markedly comminuted fractures of the bilateral superior pubic rami and pubic symphysis as well as the bilateral sacrum. There is acute fracture of the distal left and mid right inferior pubic rami. Stable severe degenerative change of the lower lumbar segments. Pelvic hemorrhage noted in the midline cranial to the pubic symphysis to the right and anterior to the collapsed urinary bladder and extending along the right rectus muscle. Small amounts of fluid noted in the pelvis. There is no organized or drainable collection. Stomach and bowel: Moderate amounts of stool present in the visualized colonic segments. Bladder: Catheter balloon inflated in the urinary bladder. IMPRESSION: Acute to subacute bilateral sacral and pubic fractures with mild surrounding disorganized contusional change in the anterior and right pelvis. ACT 112: Negative or not required by law. Electronically signed by Andreia Zee 07-06-2024 6:36 PM
[2024-07-11] MEDS: DOCUSATE SODIUM 100 MG CAP PO SCH (20:17)
[2024-07-11] MEDS: HEPARIN SOD 5,000 UNIT/0.5 ML VIAL SQ SCH (20:17)
[2024-07-11 23:04] VITALS: O2SAT 93
[2024-07-12 07:40] LABS: Basophils # (auto) 0.06 K/uL (0.00-0.20); Basophils % (auto) 0.7 %; Eosinophils % (auto) 2.5 %; Hemoglobin 10.9 g/dl (12.0-16.0); Immature Granulocytes # (auto) 0.06 K/uL (0.01-0.20); Immature Granulocytes % (auto) 0.7 %; Lymphocytes # (auto) 1.53 K/uL (1.20-3.40); Lymphocytes % (auto) 18.8 %; Mean Corpuscular Hemoglobin 31.8 pg (25.0-34.0); Mean Corpuscular Hgb Conc 34.1 g/dL (32.0-36.0); Mean Corpuscular Volume 93.3 fL (80.0-100.0); Mean Platelet Volume 8.7 fL (9.4-12.4); Monocytes # (auto) 0.65 K/uL (0.11-0.59); Neutrophils # (auto) 5.63 K/uL (1.40-6.50); Neutrophils % (auto) 69.3 %; Platelet Count 498 K/uL (130-400); RDW Coefficient of Variation 17.3 % (11.5-14.5); RDW Standard Deviation 59.7 fL (36.4-46.3); Red Blood Count 3.43 M/uL (4.20-5.40); White Blood Count 8.13 K/ul (4.8-10.8)
[2024-07-12 07:41] LABS: Calcium 8.2 mg/dl (8.6-10.3); Creatinine Clr Calc Pharmacy 98.7 ml/min; Magnesium 1.9 mg/dl (1.7-2.4); Phosphorus 2.7 mg/dl (2.5-4.9); Potassium 4.4 mmol/L (3.5-5.1)
[2024-07-12 08:01] VITALS: RESP 17
[2024-07-12 08:01] LABS: Ferritin 137.6 ng/ml (8-388)
[2024-07-12 08:41] LABS: Folate (Folic Acid),Ser orPlas 3.18 ng/ml (>5.38)
[2024-07-12] MEDS: IRON SUCROSE 200 MG in SODIUM CHLORIDE 0.9% 100 ML IV ONE (09:19)
[2024-07-12] MEDS: CEROVITE ADV FORMULA TAB PO SCH (09:19)
[2024-07-12] MEDS: CEFDINIR 300 MG CAP PO SCH (09:19)
[2024-07-12] MEDS: SODIUM CHLORIDE 0.9% 1,000 ML IV SCH (09:20)
[2024-07-12 10:48] VITALS: BP 123/74; PULSE 85; TEMP 98.1
--- NOTE | 2024-07-12 11:06 | Discharge Summary ---
Discharge Summary Date of Service July 12, 2024 Principal Dx & Hospital Course #1 = Principal Diagnosis (1) AMS (altered mental status): (2) Closed fracture of pubic ramus: (3) Weakness: (4) Melanoma metastatic to brain: (5) Hypothyroidism: Plan Ms. Garcia is a 63-year-old female with a complex PMHx significant for melanoma of the left leg originally diagnosed in 2021 with brain mets s/p craniotomy and resection under the care of Dr. Hand on 08/20/2021. She presents with concern for generalized weakness and altered mental status. Acute Metabolic/Toxic Encephalopathy Hx of melanoma metastatic to the brain s/p craniotomy Complicated UTI Mild leukocytosis on presentation Respiratory biofire negative VBG grossly unremarkable, no CO2 retention Ammonia level normal UA suggestive of infection, urine Cx NGTD Blood Cx x [address] with no acute findings Brain MRI noting possible postsurgical changes vs. recurrent/residual tumor changes CXR negative for acute cardiopulmonary disease EEG ordered as outlined below to rule out seizures- not yet read on discharge UTI was treated with IV Rocephin, transitioned to po cefdinir to complete 10 days of rx. Discharged with about 3 more days of treatment. Delirium precautions. Frequent reorientation, avoid sedating medications as able Encephalopathy improved on discharge Discharged to acute rehab- [facility]. Melanoma metastatic to brain Diagnosed 08/20/2021; original site left leg Completed radiation therapy 03/13 [facility] neurosurgery completed left frontal craniotomy with tumor resection under the care of Dr. Hand Brain MRI noting possible postsurgical changes vs. recurrent/residual tumor changes Please ensure Neurosurgery followup after discharge Closed fracture of right pubic ramus Hip and Pelvis xray noting fracture of the right superior and inferior pubic ramus and bilateral pubic symphysis Pelvic CT ordered by ortho- noting acute to subacute bilateral sacral and pubic fractures Orthopedics consulted, appreciate recs. Recommended/stated the following: "Based on the CT scan, she does have LC1 type injuries of both sides of her pelvis. I think that at this time these can be managed nonoperatively and the patient should be mobilized and work with PT. The injuries to both sides of her tita pelvis appear subacute with surrounding early callus formation. I am unable to tell if these findins represent injury only to this area or if these may be pathologic fractures due to her metastatic history. I think that she can continue current work up in the hospital for altered mental status, but upon discharge I believe she would do well to follow up with an Orthopaedic Oncologist either in [place] or [place] who can act as the primary contact point for her orthopaedic concerns." PT/OT- recommending acute rehab, discharged to [facility] Please ensure Orthopedic Oncology followup as recommended after discharge Hypophosphatemia Hypomagnesemia Repleted as needed Acute on Chronic Anemia Iron Deficiency Anemia Folic Acid Deficiency Hgb drop from 12 to 10.9 Anemia panel noting low iron levels and folate levels IV Venofer x 1 dose at 200mg on 07/12. Also started on po ferrous sulfate tabs to be taken every other day to avoid GI/constipation side effects Also prescribed daily folic acid 1g Please ensure continued monitoring of levels and supplementation as needed Severe Malnutrition Dietary consult Started on a multivitamin Continue multivitamin after discharge Possible Seizure Keppra 2 G given in ED Brain MRI with findings noted above EEG ordered and read currently pending on discharge Is prescribed Tegretol based on outpatient records, Tegretol/carbamazepine level normal Continue with carbamazepine at 400mg BID at this time. PCP followup for continued monitoring of levels and further adjustments as needed Hypothyroidism TSH 17.4 on admission, free t4 low at 0.38 Prescribed levothyroxine 200 mcg daily On admission levothyroxine was increased to 225 mcg daily by admitting provider Continue with the increased dose at this time PCP followup for continued monitoring and med adjustments after acute illness Mild thrombocytosis Likely reactive Continue to monitor Continue other home meds as ordered Notes For Next Care Provider Has estrada- inserted on 07/06/24. Consider voiding trial and removal once pt more ambulatory with rehab Pt with pelvic fracture- per orthopedics, please ensure followup with an Orthope dic Oncologist at [place] or [place] Pt with noted anemia in setting of low iron and folate levels- Please ensure continued monitoring of levels and supplementation as needed Brain MRI noting possible postsurgical changes vs. recurrent/residual tumor changes-Please ensure Neurosurgery followup after discharge Continue with carbamazepine at 400mg BID at this time-PCP followup for continued monitoring of levels and further adjustments as needed On admission levothyroxine was increased to 225 mcg daily by admitting provider- PCP followup for continued monitoring and med adjustments after acute illness Medication Changes From Visit Cefdinir 300mg BID x 7 more doses Carbamazepine dose decreased to 400mg BID upon restart ferrous sulfate 325mg every other day folic acid 1g daily levothyroxine 225mcg daily Admission HPI Per Admitting Provider Ms. Garcia is a 63-year-old female who presents to the [facility] From home with altered mental status and generalized weakness and in a disheveled state incontinent of urine. The patient has a medical history complex of melanoma of the left leg originally diagnosed in 2021 with brain mets and a craniotomy and resection under the care of Dr. Hand on 08/20/2021. Patient is disheveled. She is awake alert oriented to herself only and was able to state that she is in a hospital but said that the year was 10/23/1923. when asked who takes care of her she said that her daughter is due. She was able to state that she lives with her Kwame and feels safe at home. In the ED mild leukocytosis 11.9, TSH elevated at 17.4, bio fire negative. Head CT negative for ICH, midline shift or SDH. Chest x-ray negative for acute cardiopulmonary disease. TSH 17.4. Most recent inpatient hospital stay here was in March with similar symptoms including possible seizure activity for which an EEG indicated nonspecific encephalopathy without seizure-like activity. An ECHO was performed EF 60 to 65% with LV wall motion normal, trace MR and mild TR. A pelvic/hip xray was performed with results identifying a fracture of the right superior and inferior pubic ramus and bilateral pubic symphysis. I talked to the patients , Kwame on the phone at [phone] stated that two days she hasn't been acting herself and he tried to get her up last night to get her to stand and she could not stand. At baseline, he says that she does not have any short term memory. reportedly has been giving her her medications. He reported that she tripped and fell on her dogs leash 3-4 days ago, but denies that she hit her head. He said he has a hard time mobilizing at baseline. He says that she requires all of her needs are met by him including bathing and eating. Patient will be admitted for further evaluation and management with additional IV rehydration, will obtain VBG and ammonia levels along with a brain MRI with and without contrast given her metastatic brain involvement, will obtain EEG and continue IV Rocephin and await urine culture. Will increase Thyroid medication given elevated TSH. Will keep n.p.o. until cleared by ST, PT/OT and will involve orthopedics given her new identified fracture. Admission Exam Per Admitting Provider Neuro: AAOx1, PERRLA size 3mm BL, no aphagia, memory changes, CNII-XII grossly intact HEENT: head normocephalic, moist mucus membranes CV: S1/S2, (-) M/G/R, (-) edema, cap refill < 3 seconds Resp: Lungs CTA in all elliott. On RA GI: Abdomen S/NT/ND, Ax4 bowel sounds, (-) CVA tenderness : Indwelling estrada; tea colored urine Musculoskeletal: 5/5 B/L UE strength, 4/5 B/L LE strength. Did not visualize patient ambulating Skin: (-) rashes , (-) erythema. Psych: euthymic mood Discharge Exam General: Alert, orientedx2. No acute distress Neuro: pleasantly confused HEENT: NC/AT CV: RRR Resp: Breath sounds clear bilaterally, no increased effort of breathing Abdomen: Soft, tender Extremities: No edema in lower extremities bilaterally. Updated Medication List Medication Instructions Recorded Confirmed Type dabrafenib 75 mg capsule (Tafinlar) 75 mg PO AMHS 07/30/22 07/06/24 History dexamethasone 4 mg tablet 4 mg PO UD 04/11/24 07/06/24 History trametinib 0.5 mg tablet (Mekinist) 0 mg PO QAM 04/11/24 07/06/24 History lorazepam 0.5 mg tablet 0.5 mg PO Q6H PRN anxiety #10 tabs 04/28/24 07/06/24 Rx multivitamin 1 tab PO QAM #30 tabs 04/28/24 07/06/24 Rx ondansetron HCl 8 mg tablet 8 mg PO BID PRN nausea #10 tabs 04/28/24 07/06/24 Rx paroxetine HCl 40 mg tablet 40 mg PO QAM #30 tabs 04/28/24 07/06/24 Rx triamcinolone acetonide 0.1 % 1 applic topical BID itching #15 04/28/24 07/06/24 Rx topical cream grams atorvastatin 20 mg tablet 20 mg PO QPM 07/06/24 07/06/24 History ergocalciferol (vitamin D2) 1,250 50,000 unit PO WK 07/06/24 07/06/24 History mcg (50,000 unit) capsule losartan 50 mg tablet 50 mg PO QAM 07/06/24 07/06/24 History tramadol 50 mg tablet 50 mg PO TID PRN Moderate Pain 07/06/24 07/06/24 History (Scale Score 5-6) trazodone 100 mg tablet 0 mg PO HS 07/06/24 07/06/24 History carbamazepine 200 mg 400 mg (2 x 200 mg) PO BID #120 07/12/24 Rx tablet,extended release,12 hr tabs cefdinir 300 mg capsule 300 mg PO BID #7 caps 07/12/24 Rx ferrous sulfate 325 mg (65 mg 325 mg PO Q OTHER DAY #30 tabs 07/12/24 Rx iron) tablet folic acid 1 mg tablet 1 mg PO DAILY #30 tabs 07/12/24 Rx levothyroxine 75 mcg tablet 225 mcg (3 x 75 mcg) PO DAILYBB 07/12/24 Rx (Synthroid) #90 tabs Hospital Stay Data Consultations 07/06/24 11:42 ED Decision to Admit Stat 07/06/24 11:45 Consult Orthopedic Surgery Routine Diagnostic Imagining Performed 07/06/24 09:44 CT head/brain wo con Stat 07/06/24 12:02 MRI Brain [MR brain wo/w con] Stat 07/06/24 16:21 CT pelvis wo con Stat Chest X-Ray 07/06/24 09:44 XR chest 1V portable CLINICAL HISTORY: weakness COMPARISON STUDY: Chest CT February 26, 2024. Chest radiograph April 11, 2024. FINDINGS: Postoperative findings within the spine are incidentally noted. Lung volumes are mildly diminished, unchanged. Lungs are clear. There is no pneumothorax or pleural effusion. Cardiac size is stable. Mediastinal contours are normal. There is no evidence for pulmonary edema. IMPRESSION: No acute cardiopulmonary findings. No change in appearance of the chest. ACT 112: Negative or not required by law. Electronically signed by: Tc Umaña M.D. 07/06/2024 10:[address] 07/06/24 09:44 CT head/brain wo con CLINICAL HISTORY: AMS Technique: Contiguous axial CT images of the head were acquired from the base of the skull to the vertex without intravenous contrast administration. Images were viewed in brain, subdural and bone windows. Automated dose lowering techniques and/or adjustment according to patient size were utilized for this exam. Comparison: Comparison is made to CT head 04/11/2024 Findings: Postsurgical changes of focal encephalomalacia likely postsurgical. Imaged portions of the paranasal sinuses and mastoid air cells are clear. The orbits appear normal. Old postsurgical changes are seen in the calvarium. Impression: No acute intracranial hemorrhage, no evidence of acute territorial infarction or other acute intracranial disease process. ACT 112: Negative or not required by law. Electronically signed by: Seun Gaspar M.D. 07/06/2024 10:44 AM Hip/Pelvis X-Ray 07/06/24 10:06 XR hip DIMAS 2v w pelvis CLINICAL HISTORY: fall TECHNIQUE: 2 views of the bilateral hips and single frontal view of the pelvis were obtained. Comparison: Comparison is made to CT left hip 04/16/2024 and right hip radiograph 04/11/2024 FINDINGS: Fracture of the right superior and inferior pubic ramus and bilateral pubic symphysis. Degenerative changes are seen in the bilateral hips and lumbar spine. No soft tissue abnormality is seen. IMPRESSION: Fracture of the right superior and inferior pubic ramus and bilateral pubic symphysis. At least the right pubic ramus fractures are new from prior exam. ACT 112: Negative or not required by law. Electronically signed by: Seun Gaspar M.D. 07/06/2024 11:37 AM Brain MRI 07/06/24 12:02 MRI OF THE BRAIN WITHOUT AND WITH IV CONTRAST CLINICAL HISTORY: possible seizure activity/brain mets COMPARISON STUDY: MRI of the brain April 12, 2024. Head CT July 06, 2024. TECHNIQUE: Utilizing a 1.5 Marva magnet and dedicated coil, multiplanar, multiecho imaging of the brain was performed pre and postcontrast administration. IV administration of 5 mL of Gadavist contrast was uneventful. Thin cut T1 post contrast imaging was performed. FINDINGS: This exam is mildly compromised by motion artifact. There are no foci of restricted diffusion to suggest acute infarct. Ventricular system is unremarkable. The basal cisterns are patent. There are no extra-axial col lections. Right parietal craniotomy is noted. Encephalomalacia and T2 hyperintensity within the adjacent portion of the brain is unchanged from earlier exams dating back to March 08, 2024. Minimal enhancement is unchanged. This favors postsurgical change. A left frontal craniotomy is noted. A 4.1 x 1.6 x 1.6 cm peripherally enhancing T2 hyperintense focus within the left frontal lobe has slightly decreased in extent since MRI of April 12, 2024. The rim enhancement is slightly irregular and mildly thickened. Adjacent T2 hyperintensity has slightly increased in extent. Otherwise, the appearance of the brain is unchanged. IMPRESSION: 1. No evidence for acute infarction. 2. Status post left frontal craniotomy. 4.1 x 1.6 x 1.6 cm peripherally enhancing T2 hyperintense focus within the left frontal lobe, slightly decreased in extent since MRI of April 12, 2024. However, adjacent T2 hyperintensity has mildly increased. The findings remain nonspecific and could represent posts urgical/posttreatment change. However, residual/recurrent tumor could appear similar and continued imaging follow-up is recommended. 3. Stable postoperative findings following right parietal craniotomy with stable postoperative findings within the right frontoparietal region. ACT 112: Negative or not required by law. Electronically signed by: Tc Umaña M.D. 07/06/2024 2:[address] 07/06/24 16:21 EXAM: CT Pelvis Without Intravenous Contrast INDICATION: Pubic rami fracture. TECHNIQUE: Axial computed tomography images of the pelvis without intravenous contrast. Sagittal and coronal reformatted images were created and reviewed. This CT exam was performed using one or more of the following dose reduction techniques: automated exposure control, adjustment of the mA and/or kV according to patient size, and/or use of iterative reconstruction technique. COMPARISON: 02/26/2024 FINDINGS: Bones/joints: Markedly comminuted fractures of the bilateral superior pubic rami and pubic symphysis as well as the bilateral sacrum. There is acute fracture of the distal left and mid right inferior pubic rami. Stable severe degenerative change of the lower lumbar segments. Pelvic hemorrhage noted in the midline cranial to the pubic symphysis to the right and anterior to the collapsed urinary bladder and extending along the right rectus muscle. Small amounts of fluid noted in the pelvis. There is no organized or drainable collection. Stomach and bowel: Moderate amounts of stool present in the visualized colonic segments. Bladder: Catheter balloon inflated in the urinary bladder. IMPRESSION: Acute to subacute bilateral sacral and pubic fractures with mild surrounding disorganized contusional change in the anterior and right pelvis. ACT 112: Negative or not required by law. Electronically signed by Andreia Zee 07-06-2024 6:36 PM Pending Results Patient Have Any Pending Studies at Discharge: No Discharge Instructions Given to Patient (Per Discharging Provider) Judy, You were admitted and treated for increasing confusion. We treated you with antibiotics for a urinary tract infection and we are discharging you to acute rehab with oral antibiotics to complete a 10 day course of treatment. Please take it as prescribed starting tonight. You also had a pelvic fracture that you saw the orthopedic provider for and they recommended conservative management. Your iron levels were low. We gave you IV iron and we recommend that you take an oral iron supplement every other day. Taking it every other day will help with preventing constipation and other GI side-effects. Your folate levels were also low. Continue with the folic acid supplement prescribed to help. Your thyroid levels were also low. We increased the dose of your home levothyroxine to help. Please follow up with your primary care provider about this for continued monitoring after your acute illness. Your carbamazepine dose was held and restarted at 400mg twice a day. You will need continued monitoring of your levels after discharge and medication adjustments as needed. You will also need follow up with Neurosurgery and an Orthopedic Oncologist after discharge. Please also keep close follow up with your primary care provider after discharge. Please do not hesitate to come back to the emergency room if your symptoms worsen or return. It was a pleasure taking care of you while you were here. Total Time Total Time Spent Total Time Spent (In Minutes): 65
== END 2024-07-12 13:11 | DRG 689 ==
LOC: ED 09:29 → SUATTDRO 11:41 → 2S 11:41

== ENCOUNTER 2024-09-03 10:54 | Inpatient (IN) ==
--- NOTE | 2024-09-03 11:10 | Emergency Department Note ---
Impression & Plan Acetabulum fracture, right, Closed fracture of right hip, Left rib fracture, Contusion of right shoulder ED Provider Note NAME: LIGIA ROWE AGE: 64 SEX: F : 1960 ARRIVES VIA: Ambulance INFORMANT: Patient, EMS ED PROVIDER(S): Napoleon Matute DO CHIEF COMPLAINT: Fall HPI: The patient is a 64-year-old female who presented to the emergency department after fall. The patient fell from standing position onto her right side. She was unable to stand. The patient is complaining of significant pain in her right shoulder as well as her right hip. The patient states that she has no headache or head injury. She denies having any neck pain. The patient states that she received Zofran prior to arrival. The patient denies having any back pain. ROS: See above HPI for pertinent positives & negatives. A total of 10 systems reviewed and were otherwise negative. PAST MEDICAL HISTORY: See Below PAST SURGICAL HISTORY: See Below FAMILY HISTORY: See Below SOCIAL HISTORY: See Below HOME MEDICATIONS: See Below ALLERGIES: See Below VITALS: See Below PHYSICAL EXAMINATION: GENERAL: The patient is awake and alert. She is frail and very anxious appearing. She appears to be in significant pain. EYES: The conjunctivae are clear. The pupils are round and reactive. EARS, NOSE, MOUTH AND THROAT: The nose is without any evidence of any deformity. Mucous membranes are moist. Tongue is midline. NECK: The neck is nontender and supple. RESPIRATORY: Normal respiratory effort is noted there is no evidence of wheezing rhonchi or rales CARDIOVASCULAR: Regular rate and rhythm noted there no murmurs rubs or gallops normal S1 normal S2. GASTROINTESTINAL: The abdomen is soft. Abdomen is nontender. BACK: No midline tenderness or or step-off noted range of motion in flexion extension as well as rotation no signs of muscle spasm noted MUSCULOSKELETAL/EXTREMITIES: There is crepitus over the right shoulder with range of motion testing. There is no pain or tenderness distally. There is pain with any range of motion testing of the right hip. There is slight shortening. There is no tenderness to palpation over the right knee or the right lower leg. SKIN: There is no obvious evidence of any rash. There is an abrasion on the right knee. No pedal edema was noted. NEUROLOGIC: Patient is awake alert and oriented x3 MEDICAL DECISION MAKING: The patient is a 64-year-old female who presented to the emergency department after a fall. Physical exam was consistent with a possible hip fracture. Because the patient's age and comorbidities as well as her medication list further radiographic studies were obtained. I discussed the patient's laboratory and radiographic studies with her. No definite fracture was noted of the shoulder. Clinically this does not appear to represent a shoulder dislocation. She does appear to have a rib fracture but she fell onto her right side today so it is unclear if this occurred today. Her hip does appear to be abnormal. This was CAT scan evaluated and appears to show an acetabular component as well as a femoral head component. I discussed the case with orthopedics. They feel confident managing this fracture at our facility. [facility] to evaluate the patient in the emergency department. Triage Nursing notes reviewed. Prior medical records reviewed Vital Signs: reviewed and remarkable for no significant abnormalities Differential diagnosis: Fracture, dislocation, contusion, intra-abdominal, pneumothorax, intrathoracic, intracranial, neurologic, compartment syndrome, rhabdomyolysis, as well as other pathologies. ER treatment provided: See below Diagnostics interpreted by me: ECG: EKG was obtained in the emergency department. My interpretation is normal sinus rhythm at 72 bpm. There was no ectopy. There was no acute ST segment abnormalities noted. Cardiac Monitoring: An order was placed for continuous cardiac monitoring. The monitor shows a rate of 66 bpm with sinus rhythm. Laboratory studies: As stated above and show below. Imaging studies: See below. Radiographic imaging was reviewed by myself Consultation(s): I discussed this case with Dr. Pollard who is on-call for orthopedics. I discussed this case with Nia who is on for the [facility] hospitalist group. Past Med/Surg History Problem List Contusion of right shoulder (Acute) Left rib fracture (Acute) Closed fracture of right hip (Acute) Acetabulum fracture, right (Acute) Closed fracture of pubic ramus AMS (altered mental status) Fracture of left hip Pelvic ring fracture Weakness (Acute) Hypothyroidism Combined receptive and expressive aphasia Vasogenic edema (Acute) Memory changes Melanoma metastatic to brain (Chronic) Medical History Fall Acute UTI (urinary tract infection) Acute hypotension Seizure disorder History of melanoma October 2017 --diag with superficial spreading melanoma of the left leg, [id number], Stage IIIc. 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 S/p re-excision and SLNB 12/26/2017 (-margins; 3 of 3 nodes involved) S/p nivolumab 02/04 - 04/08 S/p right parietal craniotomy for near total resection 08/20/2021 S/p Radiation therapy to brain mets, including post op bed; Aug -September 2021 S/p dabrafinib and trametinib 10/09 --dose reduced in mid 2021; ongoing Rx Jul 2022--SRS to left frontal lobe Aug 2023--s/p ALYSHA and bx of Left Frontal mass. Path-- brain parenchyma with reactive gliosis.Negative for malignancy. MRI feb 20, 2024--Parenchymal abnormality at the treatment site measuring 1.9 cm, not fully characterized. Surrounding vasogenic edema and mild mass effect, increased since pretreatment imaging. 03/03/2024--s/p L frontal craniotomy for resection ( Dr Hand) ; path showed Residual/recurrent metastatic melanoma No pertinent past medical history Surgical History S/P craniotomy Dr. Hand [facility] Neurosurgery 03/03/24 Left frontal craniotomy for tumor resection with vycor tube and dynamic retraction, use of brainlab neuronavigation, use of neurophysiological monitoring (SSEP/MEP/motor language, subcortical stimulation) Status post right foot surgery History of knee replacement procedure of left knee History of partial hysterectomy H/O craniotomy History of back surgery History of brain surgery x2 Hx of cholecystectomy Family History Grandfather (Maternal) Cancer Breast cancer Sister Cancer Breast cancer Father Cancer Colon cancer Social History Smoking Status: Current every day smoker Tobacco Type: Cigarettes Cigarettes Per Day: 13; Do You Dip or Chew Tobacco: No; Hx Alcohol Use: Yes Hx Substance Use: No Preferred Language: Cambodian Communication Ability: Unable Visual Impairment: No Limitations Hearing Ability: Normal Land Measurer Required: No Beliefs That Will Affect Care: None marital status: Current Living Situation: Spouse current occupational status: employed 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 Uncoded 07/06/24 12:42 On file w/ [facility]. Home Meds Home Medications Medication Instructions Recorded Confirmed dabrafenib 75 mg capsule (Tafinlar) 75 mg PO AMHS 07/30/22 09/03/24 dexamethasone 4 mg tablet 4 mg PO UD 04/11/24 09/03/24 trametinib 0.5 mg tablet (Mekinist) 0 mg PO QAM 04/11/24 09/03/24 atorvastatin 20 mg tablet 20 mg PO QPM 07/06/24 09/03/24 ergocalciferol (vitamin D2) 1,250 50,000 unit PO WK 07/06/24 09/03/24 mcg (50,000 unit) capsule losartan 50 mg tablet 50 mg PO QAM 07/06/24 09/03/24 tramadol 50 mg tablet 50 mg PO TID PRN Moderate Pain 07/06/24 09/03/24 (Scale Score 5-6) trazodone 100 mg tablet 0 mg PO HS 07/06/24 09/03/24 levothyroxine 175 mcg tablet 175 mcg PO DAILY 09/03/24 09/03/24 Previous Rx's Medication Instructions Recorded lorazepam 0.5 mg tablet 0.5 mg PO Q6H PRN anxiety #10 tabs 04/28/24 multivitamin 1 tab PO QAM #30 tabs 04/28/24 ondansetron HCl 8 mg tablet 8 mg PO BID PRN nausea #10 tabs 04/28/24 paroxetine HCl 40 mg tablet 40 mg PO QAM #30 tabs 04/28/24 triamcinolone acetonide 0.1 % 1 applic topical BID itching #15 04/28/24 topical cream grams carbamazepine 200 mg 400 mg (2 x 200 mg) PO BID #120 07/12/24 tablet,extended release,12 hr tabs ferrous sulfate 325 mg (65 mg 325 mg PO Q OTHER DAY #30 tabs 07/12/24 iron) tablet folic acid 1 mg tablet 1 mg PO DAILY #30 tabs 07/12/24 Results & Data (ED) Vital Signs Vital Signs - 24 hr 09/03/24 10:56 09/03/24 11:27 09/03/24 11:33 Temperature 36.4 C L Temperature Source Oral Pulse Rate 74 74 72 Pulse Rate from SpO2 Sensor Respiratory Rate 18 18 Blood Pressure 208/99 H Blood Pressure Mean 135 Blood Pressure Position Semi-fowlers Pulse Oximetry 95 95 Oxygen Delivery Method Room Air Room Air Oxygen Flow Rate Sepsis Recent Fever Within 48 Hours No Sepsis New/Unexplained Change in Mental Status No Sepsis Action Taken by Nursing No Action Required Oxygen Flow Rate - Titration Pulse Oximetry Post Tiitration 09/03/24 12:03 09/03/24 12:23 09/03/24 12:30 Temperature Temperature Source Pulse Rate 79 66 Pulse Rate from SpO2 Sensor 66 Respiratory Rate 15 15 Blood Pressure 181/96 H 154/86 H Blood Pressure Mean 124 108 Blood Pressure Position Pulse Oximetry 70 L 100 Oxygen Delivery Method Nasal Cannula Nasal Cannula Oxygen Flow Rate 0 2 Sepsis Recent Fever Within 48 Hours Sepsis New/Unexplained Change in Mental Status Sepsis Action Taken by Nursing Oxygen Flow Rate - Titration 3 Pulse Oximetry Post Tiitration 98 Home Medications Current Medication List: was personally reviewed by me Laboratory Data Attestation: I reviewed the patient's lab results. 09/03/24 12:08 09/03/24 12:08 Lab Results 09/03/24 Range/Units 12:08 WBC 6.93 (4.8-10.8) K/ul RBC 4.91 (4.20-5.40) M/uL Hgb 15.1 (12.0-16.0) g/dl Hct 44.7 (37.0-47.0) % MCV 91.0 (80.0-100.0) fL MCH 30.8 (25.0-34.0) pg MCHC 33.8 (32.0-36.0) g/dL RDW Std Deviation 47.5 H (36.4-46.3) fL RDW Coeff of Kelvin 14.2 (11.5-14.5) % Plt Count 378 (130-400) K/uL MPV 9.0 L (9.4-12.4) fL Immature Gran % (Auto) 0.4 % Neut % (Auto) 70.3 % Lymph % (Auto) 21.9 % [place] % (Auto) 6.5 % Eos % (Auto) 0.3 % Baso % (Auto) 0.6 % Neut # (Auto) 4.87 (1.40-6.50) K/uL Lymph # (Auto) 1.52 (1.20-3.40) K/uL [place] # (Auto) 0.45 (0.11-0.59) K/uL Eos # (Auto) 0.02 (0.00-0.50) K/uL Baso # (Auto) 0.04 (0.00-0.20) K/uL Immature Gran # (Auto) 0.03 (0.01-0.20) K/uL PT Cancelled INR Cancelled APTT Cancelled PTT Ratio Cancelled Sodium 136 (136-145) mmol/L Potassium TNP Chloride 96 L (98-107) mmol/L Carbon Dioxide 33 H (21-32) mmol/L Anion Gap 7 (3-11) BUN 12 (6-23) mg/dl Creatinine 0.57 L (0.6-1.2) mg/dl Est Cr Clr Drug Dosing 76.8 ml/min eGFR 100.16 BUN/Creatinine Ratio 21.1 H (10-20) Glucose 106 H (70-99(Fasting)) mg/dl Calcium 9.3 (8.6-10.3) mg/dl Total Bilirubin 0.7 (0.2-1.0) mg/dl AST TNP ALT 24 (7-52) U/L Alkaline Phosphatase 443 H (34-104) U/L Troponin I High Sens 6.3 (0-14) pg/ml Total Protein 7.8 (6.0-8.3) gm/dl Albumin 3.8 (3.4-5.0) gm/dl Globulin 4.0 (2.5-4.0) gm/dl Albumin/Globulin Ratio 1.0 (0.9-2) Lipase 35 (11-82) U/L Administered Medications Fentanyl Citrate (Fentanyl Citrate Pf 100 Mcg/2 Ml Vial) 50 mcg IV Q15M PRN PRN Reason: Pain Stop: 09/17/24 11:01 Last Admin: 09/03/24 12:17 Dose: 50 mcg Documented By: CEF Discontinued Medications Ondansetron HCl (Ondansetron Inj 2 Mg/Ml 2 Ml Vial) 4 mg IV NOW STA Stop: 09/03/24 11:03 Last Admin: 09/03/24 12:16 Dose: 4 mg Documented By: JULISA Imaging Data Attestation: I personally reviewed and interpreted this imaging study as follows: My Impression: CT the brain was obtained in the emergency department. My interpretation is no intracranial hemorrhage or mass effect, final report below. X-ray of the right hip and pelvis was obtained. My interpretation is previous pelvic fracture noted, final report below. X-ray of the chest was obtained. My interpretation is no free air or definite infiltrate, final report below. Radiologist's Impression: Cervical Spine CT 09/03/24 11:02 CT cervical spine wo con CT DOSE: 1203.13 mGy.cm CLINICAL HISTORY: 64 years-old Female with fall. Acute neck pain status post fall COMPARISON: CT head on Friday, CT cervical spine 02/26/2024 TECHNIQUE: Multiple axial CT images of the cervical spine were obtained without contrast. A dose lowering technique was utilized adhering to the principles of ALARA. FINDINGS: Anterior plate and screw fusion with discectomy changes redemonstrated at the C3-C7 levels. Severe intervertebral disc space narrowing again noted at C7-T1 and T1-T2. Unchanged grade 1 anterolisthesis of C3 on C4. No acute fracture or subluxation identified. Severe degeneration of the temporomandibular joints. Trace left mastoid effusion. The cervical soft tissues appear unremarkable. No pneumothorax. 3 mm solid nodule noted within the left lung apex on image 89 series 7. Unremarkable soft tissues. IMPRESSION: No acute cervical spine fracture or subluxation. ACT 112: Negative or not required by law. The above report was generated using voice recognition software. It may contain grammatical, syntax or spelling errors. Electronically signed by: Dre Clark M.D. 09/03/2024 12:24 PM Chest X-Ray 09/03/24 11:02 XR chest 1V portable CLINICAL HISTORY: fall COMPARISON STUDY: Chest CT February 26, 2024. Chest radiograph July 06, 2024. FINDINGS: Postoperative findings within the spine are incidentally noted. There is no pneumothorax or pleural effusion. There is no consolidation or evidence for pulmonary edema. Cardiomediastinal silhouette is unremarkable. An acute appearing mildly displaced lateral left sixth rib fracture is new since radiographs of July 06, 2024. IMPRESSION: 1. No pneumothorax. 2. Acute mildly displaced lateral left sixth rib fracture. ACT 112: Negative or not required by law. Electronically signed by: Tc Umaña M.D. 09/03/2024 11:[address] 09/03/24 11:02 CT OF THE HEAD WITHOUT CONTRAST CLINICAL HISTORY: Fall. History of metastatic disease. COMPARISON STUDY: MRI of the brain and head CT July 06, 2024. TECHNIQUE: Helical axial images of the head were obtained without IV contrast. Automated exposure control was utilized for the study. A dose lowering technique was utilized adhering to the principles of ALARA. FINDINGS: Postoperative findings following craniotomies are unchanged. Hypodensities within the left frontal and right parietal lobes are unchanged. Ventricular system is unremarkable. Basal cisterns are patent. There are no extra axial collections. No calvarial fractures are present. There are no findings to suggest acute dural sinus thrombosis or acute territorial infarct. IMPRESSION: 1. No acute intracranial findings. 2. No change in appearance of the brain. Stable postoperative findings. 3. No calvarial fractures. ACT 112: Negative or not required by law. Electronically signed by: Tc Umaña M.D. 09/03/2024 12:09 PM Hip/Pelvis X-Ray 09/03/24 11:02 XR hip RT 2V w pelvis HISTORY: 64 years-old Female fall acute pelvic pain status post fall COMPARISON: CT pelvis 07/06/2024 TECHNIQUE: AP view of the pelvis with 2 views of the right hip FINDINGS: Demineralized appearance of the bones. [id number] osteoarthritis of the hips. Moderate flattening of the superior and superolateral aspects of the right femoral head represents a change from the prior study. Healing subacute and comminuted pelvic ring fractures demonstrate unchanged alignment from the prior study. No acute displaced fracture or dislocation. IMPRESSION: 1. Articular flattening of the right femoral head represents a change from the 07/06/[address] of the pelvis recommended. 2. Unchanged alignment with mild interval incomplete bony healing of the subacute and comminuted pelvic ring fractures which are unchanged in alignment from the prior. ACT 112: Negative or not required by law. The above report was generated using voice recognition software. It may contain grammatical, syntax or spelling errors. Electronically signed by: Dre Clark M.D. 09/03/2024 11:56 AM Shoulder X-Ray 09/03/24 11:02 XR shoulder RT min 2V routine CLINICAL HISTORY: fall COMPARISON: Chest radiograph April 11, 2024. FINDINGS: Postoperative findings within the spine are incidentally noted. Calcific densities within the joint space are present. There is a curvilinear ossific density along the glenoid. Glenohumeral alignment is difficult to assess on this examination. AC joint is intact. There are moderate degenerative changes within the right shoulder. No definite acute fractures. IMPRESSION: 1. Glenohumeral alignment difficult to assess on this exam. Anterior shoulder dislocation would be difficult to completely excluded although findings likely technical. A scapular Y view is recommended for further evaluation. 2. Curvilinear ossific density along the glenoid. This is likely chronic although a fracture fragment could appear similar. ACT 112: Negative or not required by law. Electronically signed by: Tc Umaña M.D. 09/03/2024 12:[address] 09/03/24 11:38 CT hip RT wo con CLINICAL HISTORY: Right hip pain following fall. COMPARISON STUDY: Pelvis CT July 06, 2024. Right hip radiographs performed earlier today TECHNIQUE: Axial images of the right hip were obtained without IV contrast. Sagittal and coronal reformats were viewed. Automated exposure control was utilized for the study. A dose lowering technique was utilized adhering to the principles of ALARA. FINDINGS: Bilateral pubic ring fractures were present on CT of July 06, 2024. Associated callus formation has increased. Ossific material within the right adductor musculature has increased. This favors examination of callus formation and myositis ossificans. An acute appearing nondisplaced right acetabular roof fracture has developed since CT of July 06, 2024. In addition, there has been interval development of flattening of the right femoral head with a right femoral head subchondral fracture which is minimally depressed. There is moderate osteoarthritis of the right hip. No suspicious osseous lesions are identified. Multifocal ossific/calcific material within the right hip joint is now present. IMPRESSION: 1. Acute appearing nondisplaced right acetabular roof fracture. This is new since CT of July 06, 2024. 2. Interval development of a subchondral fracture within the right femoral head with flattening of the femoral head since CT of July 06, 2024. 3. Redemonstration of subacute bilateral pubic ring fractures with extensive callus formation and possible associated myositis ossificans within the adductor muscles. 4. Moderate right hip osteoarthritis. Interval development of multifocal calcific/ossific material within the right hip joint. ACT 112: Negative or not required by law. Electronically signed by: Tc Umaña M.D. 09/03/2024 12:23 PM Discharge Plan Visit Data Chief Complaint: Fall Stated Complaint: FALL, RIGHT HIP PAIN ED Provider: Napoleon Matute Discharge Problem: Acetabulum fracture, right, Closed fracture of right hip, Left rib fracture, Contusion of right shoulder Patient Disposition: Being Evaluated by Hospitalist Forms [facility] Prescriptions: No Action Tafinlar 75 mg capsule 75 mg PO AMHS dexamethasone 4 mg tablet 4 mg PO UD Rx Instructions: Take 4mg by mouth once daily for 5 days 1 hour prior to radiation treatment. Mekinist 0.5 mg tablet 0 mg PO QAM Rx Instructions: Original Directions listed: 1mg by mouth daily. However pharmacy as 1.5mg by mouth daily. Unable to verify w/pt how she is currently taking medication. multivitamin Tablet 1 tab PO QAM Qty: 30 0RF Rx Instructions: Unable to verify OTC med at this date/time. ondansetron HCl 8 mg tablet 8 mg PO BID PRN (Reason: nausea) Qty: 10 0RF Rx Instructions: take 1/2 hr before tafinlar triamcinolone acetonide 0.1 % cream 1 applic TOPICAL BID Qty: 15 0RF lorazepam 0.5 mg Tablet 0.5 mg PO Q6H PRN (Reason: anxiety) Qty: 10 0RF paroxetine HCl 40 mg tablet 40 mg PO QAM Qty: 30 0RF losartan 50 mg tablet 50 mg PO QAM tramadol 50 mg tablet 50 mg PO TID PRN (Reason: Moderate Pain (Scale Score 5-6)) ergocalciferol (vitamin D2) 1,250 mcg (50,000 unit) capsule 50,000 unit PO WK atorvastatin 20 mg tablet 20 mg PO QPM Rx Instructions: Last filled 02/2024 x90 day supply. Original Directions: 20mg by mouth daily trazodone 100 mg tablet 0 mg PO HS Rx Instructions: Last filled 01/2024 x30 day supply. Original Directions: 150mg by mouth daily ferrous sulfate 325 mg (65 mg iron) tablet 325 mg PO Q OTHER DAY Qty: 30 0RF folic acid 1 mg tablet 1 mg PO DAILY Qty: 30 0RF carbamazepine 200 mg Tablet Extended Release 12 Hr 400 mg PO BID Qty: 120 0RF levothyroxine 175 mcg tablet 175 mcg PO DAILY Referrals Referrals: Martin Solorio MD [Primary Care Provider] - Discharge Problem: Acetabulum fracture, right Qualifiers: Encounter type: initial encounter Sublocation of acetabulum: unspecified portion of acetabulum Fracture type: closed Fracture alignment: nondisplaced Q ualified Code(s): S32.401A - Unspecified fracture of right acetabulum, initial encounter for closed fracture Closed fracture of right hip Qualifiers: Encounter type: initial encounter Qualified Code(s): S72.001A - Fracture of unspecified part of neck of right femur, initial encounter for closed fracture Left rib fracture Qualifiers: Encounter type: initial encounter Rib fracture type: single rib Fracture type: closed Qualified Code(s): S22.32XA - Fracture of one rib, left side, initial encounter for closed fracture Contusion of right shoulder Qualifiers: Encounter type: initial encounter Qualified Code(s): S40.011A - Contusion of right shoulder, initial encounter
--- NOTE | 2024-09-03 11:57 | XRay Report ---
XR hip RT 2V w pelvis HISTORY: 64 years-old Female fall acute pelvic pain status post fall COMPARISON: CT pelvis 07/06/2024 TECHNIQUE: AP view of the pelvis with 2 views of the right hip FINDINGS: Demineralized appearance of the bones. [id number] osteoarthritis of the hips. Moderate flatteni ng of the superior and superolateral aspects of the right femoral head represents a change from the p rior study. Healing subacute and comminuted pelvic ring fractures demonstrate unchanged alignment fro m the prior study. No acute displaced fracture or dislocation. IMPRESSION: 1. Articular flattening of the right femoral head represents a change from the 07/06/[address] Charissa [address]ation with CT of the pelvis recommended. 2. Unchanged alignment with mild interval incomplete bony healing of the subacute and comminuted pelv ic ring fractures which are unchanged in alignment from the prior. ACT 112: Negative or not required by law. The above report was generated using voice recognition software. It may contain grammatical, syntax o r spelling errors. Electronically signed by: Dre Clark M.D. 09/03/2024 11:56 AM
[2024-09-03] MEDS: ONDANSETRON INJ 2 MG/ML 2 ML VIAL IV STA (12:16)
[2024-09-03] MEDS: fentaNYL citrate PF 100 MCG/2 ML VIAL IV PRN (12:17)
[2024-09-03 12:34] LABS: Basophils # (auto) 0.04 K/uL (0.00-0.20); Basophils % (auto) 0.6 %; Eosinophils # (auto) 0.02 K/uL (0.00-0.50); Eosinophils % (auto) 0.3 %; Hematocrit (blood only) 44.7 % (37.0-47.0); Hemoglobin 15.1 g/dl (12.0-16.0); Immature Granulocytes # (auto) 0.03 K/uL (0.01-0.20); Immature Granulocytes % (auto) 0.4 %; Lymphocytes # (auto) 1.52 K/uL (1.20-3.40); Lymphocytes % (auto) 21.9 %; Mean Corpuscular Hemoglobin 30.8 pg (25.0-34.0); Mean Corpuscular Hgb Conc 33.8 g/dL (32.0-36.0); Monocytes # (auto) 0.45 K/uL (0.11-0.59); Monocytes % (auto) 6.5 %; Neutrophils # (auto) 4.87 K/uL (1.40-6.50); Neutrophils % (auto) 70.3 %; Platelet Count 378 K/uL (130-400); RDW Coefficient of Variation 14.2 % (11.5-14.5); RDW Standard Deviation 47.5 fL (36.4-46.3); Red Blood Count 4.91 M/uL (4.20-5.40); White Blood Count 6.93 K/ul (4.8-10.8)
--- NOTE | 2024-09-03 12:36 | CT Scan Report ---
CT cervical spine wo con CT DOSE: 1203.13 mGy.cm CLINICAL HISTORY: 64 years-old Female with fall. Acute neck pain status post fall COMPARISON: CT head on Friday, CT cervical spine 02/26/2024 TECHNIQUE: Multiple axial CT images of the cervical spine were obtained without contrast. A dose low ering technique was utilized adhering to the principles of ALARA. FINDINGS: Anterior plate and screw fusion with discectomy changes redemonstrated at the C3-C7 levels. Severe intervertebral disc space narrowing again noted at C7-T1 and T1-T2. Unchanged grade 1 anterol isthesis of C3 on C4. No acute fracture or subluxation identified. Severe degeneration of the temporomandibular joints. Trace left mastoid effusion. The cervical soft t issues appear unremarkable. No pneumothorax. 3 mm solid nodule noted within the left lung apex on im age 89 series 7. Unremarkable soft tissues. IMPRESSION: No acute cervical spine fracture or subluxation. ACT 112: Negative or not required by law. The above report was generated using voice recognition software. It may contain grammatical, syntax o r spelling errors. Electronically signed by: Dre Clark M.D. 09/03/2024 12:24 PM
--- NOTE | 2024-09-03 12:36 | CT Scan Report ---
CT hip RT wo con CLINICAL HISTORY: Right hip pain following fall. COMPARISON STUDY: Pelvis CT July 06, 2024. Right hip radiographs performed earlier today TECHNIQUE: Axial images of the right hip were obtained without IV contrast. Sagittal and coronal refo rmats were viewed. Automated exposure control was utilized for the study. A dose lowering technique was utilized adhering to the principles of ALARA. FINDINGS: Bilateral pubic ring fractures were present on CT of July 06, 2024. Associated callus f ormation has increased. Ossific material within the right adductor musculature has increased. This fa vors examination of callus formation and myositis ossificans. An acute appearing nondisplaced right a cetabular roof fracture has developed since CT of July 06, 2024. In addition, there has been inte rval development of flattening of the right femoral head with a right femoral head subchondral fractu re which is minimally depressed. There is moderate osteoarthritis of the right hip. No suspicious oss eous lesions are identified. Multifocal ossific/calcific material within the right hip joint is now p resent. IMPRESSION: 1. Acute appearing nondisplaced right acetabular roof fracture. This is new since CT of July 06, 2024. 2. Interval development of a subchondral fracture within the right femoral head with flattening of t he femoral head since CT of July 06, 2024. 3. Redemonstration of subacute bilateral pubic ring fractures with extensive callus formation and pos sible associated myositis ossificans within the adductor muscles. 4. Moderate right hip osteoarthritis. Interval development of multifocal calcific/ossific material wi thin the right hip joint. ACT 112: Negative or not required by law. Electronically signed by: Tc mUaña M.D. 09/03/2024 12:23 PM
--- NOTE | 2024-09-03 12:36 | XRay Report ---
XR shoulder RT min 2V routine CLINICAL HISTORY: fall COMPARISON: Chest radiograph April 11, 2024. FINDINGS: Postoperative findings within the spine are incidentally noted. Calcific densities within the joint space are present. There is a curvilinear ossific density along the glenoid. Glenohumeral a lignment is difficult to assess on this examination. AC joint is intact. There are moderate degenerat leela changes within the right shoulder. No definite acute fractures. IMPRESSION: 1. Glenohumeral alignment difficult to assess on this exam. Anterior shoulder dislocation would be di fficult to completely excluded although findings likely technical. A scapular Y view is recommended f or further evaluation. 2. Curvilinear ossific density along the glenoid. This is likely chronic although a fracture fragment could appear similar. ACT 112: Negative or not required by law. Electronically signed by: Tc Umaña M.D. 09/03/2024 12:05 PM
--- NOTE | 2024-09-03 12:36 | XRay Report ---
XR chest 1V portable CLINICAL HISTORY: fall COMPARISON STUDY: Chest CT February 26, 2024. Chest radiograph July 06, 2024. FINDINGS: Postoperative findings within the spine are incidentally noted. There is no pneumothorax or pleural effusion. There is no consolidation or evidence for pulmonary edema. Cardiomediastinal silho uette is unremarkable. An acute appearing mildly displaced lateral left sixth rib fracture is new sin ce radiographs of July 06, 2024. IMPRESSION: 1. No pneumothorax. 2. Acute mildly displaced lateral left sixth rib fracture. ACT 112: Negative or not required by law. Electronically signed by: Tc Umaña M.D. 09/03/2024 11:56 AM
--- NOTE | 2024-09-03 12:36 | CT Scan Report ---
CT OF THE HEAD WITHOUT CONTRAST CLINICAL HISTORY: Fall. History of metastatic disease. COMPARISON STUDY: MRI of the brain and head CT July 06, 2024. TECHNIQUE: Helical axial images of the head were obtained without IV contrast. Automated exposure con trol was utilized for the study. A dose lowering technique was utilized adhering to the principles o f ALARA. FINDINGS: Postoperative findings following craniotomies are unchanged. Hypodensities within the left frontal and right parietal lobes are unchanged. Ventricular system is unremarkable. Basal cisterns ar e patent. There are no extra axial collections. No calvarial fractures are present. There are no find ings to suggest acute dural sinus thrombosis or acute territorial infarct. IMPRESSION: 1. No acute intracranial findings. 2. No change in appearance of the brain. Stable postoperative findings. 3. No calvarial fractures. ACT 112: Negative or not required by law. Electronically signed by: Tc Umaña M.D. 09/03/2024 12:09 PM
[2024-09-03 13:14] LABS: Alanine Aminotransferase 24 U/L (7-52); Albumin Level 3.8 gm/dl (3.4-5.0); Alkaline Phosphatase 443 U/L (34-104); Anion Gap 7 (3-11); BUN Creatinine Ratio 21.1 (10-20); Bilirubin,Total 0.7 mg/dl (0.2-1.0); Blood Urea Nitrogen 12 mg/dl (6-23); Calcium 9.3 mg/dl (8.6-10.3); Carbon Dioxide 33 mmol/L (21-32); Chloride 96 mmol/L (98-107); Creatinine Clr Calc Pharmacy 76.8 ml/min; Glucose 106 mg/dl (70-99(Fasting)); Lipase 35 U/L (11-82); Sodium 136 mmol/L (136-145); Total Protein 7.8 gm/dl (6.0-8.3); Troponin I High Sensitivity 6.3 pg/ml (0-14)
--- NOTE | 2024-09-03 14:18 | History & Physical Report ---
Date of Service September 03, 2024 Assessment & Plan (1) Fall: (2) Closed fracture of right hip: (3) Acetabulum fracture, right: (4) Contusion of right shoulder: (5) Left rib fracture: (6) Hypothyroidism: (7) Seizure disorder: (8) Melanoma metastatic to brain: (9) Memory changes: Plan This is a 64-year-old female with PMH of melanoma with metastatic disease of the brain (dx 2021, original site left leg, s/p XRT, s/p L frontal craniotomy at [facility] 03/13) complicated by seizure disorder, hypertension, CAD, cerebral atrophy, mood disorder and other medical problems listed below who presents from home after a fall at home and was found to have acute appearing nondisplaced right acetabular roof fracture (new since CT of July 06, 2024) as well as interval development of a subchondral fracture within the right femoral head with flattening of the femoral head since CT of July 06, 2024. Labs and imaging reviewed, WBC fairly wnl. RFT fairly wnl. ALP elevated at baseline. CT Head and CT C spine: no acute finding CXR: Acute mildly displaced lateral left sixth rib fracture. No pneumothorax Hip Imaging: acute non displaced right acetabular roof fracture. Subchondral fracture w/in right femoral head. Subacute b/l pubic ring fractures. Right acetabulum fracture Conservative mgmt per ortho surgery. Weight bear as tolerated. Will need a walker, PT/OT Scheduled Tylenol for pain. Avoid narcotics as able Prescribed tramadol at home but should be discontinued as it likely diminishes effect of carbamazepine Ambulatory dysfunction Uses walker at baseline; unsteady since pelvic fracture in June Fall precautions, PT/OT as above Contusion of R shoulder Recommend a sling to wear for comfort, ROM as tolerated Melanoma with mets to brain Dx 2021, original site left leg, s/p XRT, s/p L frontal craniotomy at [facility] 03/13 Forgetful with waxing and waning mentation since February, per A&O to person only on admission to bring in dabrafenib and Mekinist from home Seizure disorder Remote history. Continue carbamazepine HTN Continue losartan Mood disorder Continue paroxetine, trazodone HS, holding Ativan to decrease fall risk Hypothyroidism Levothyroxine increased to 200 mcg last week per PCP. Follow up TFT in 2 months DVT Ppx: SCDs for now Code status: DNR/DNI per discussion with patient PCP: Lyndsey Dispo: admit to med/surg Patient seen in collaboration with Dr. Jarrell. Please see addendum. I spent a total of 70 minutes coordinating, documenting, and providing care for this patient excluding time spent in the performance of separately billed services or time spent by another provider/QHP. History of Present Illness Chief Complaint: Fall Primary Care Provider: Martin Solorio MD This is a 64-year-old female with PMH of melanoma with metastatic disease of the brain (dx 2021, original site left leg, s/p XRT, s/p L frontal craniotomy at [facility] 03/13) complicated by seizure disorder, chronic hyponatremia, hypertension, CAD, seizure disorder, cerebral atrophy, mood disorder and other medical problems listed below who presents from home after a fall at home. History obtained from over the phone due to 's cognitive deficit. States ever since her craniotomy in February, has had memory issues that wax and wane. woke up this morning to his yelling out on the porch. She had reportedly gone out to smoke and fell. He is unable to get up on her own so called EMS and she was brought in for further evaluation. Unsure if she hit her head. Endorsing some right hip pain that is better after pain medication in ER. Denies any fever, chills, lightheadedness, chest pain, shortness of breath, nausea, vomiting, abdominal pain, dysuria, diarrhea or constipation. Patient was last admitted to our service in June 2024 and found to have left pubic rami fracture and UTI. No surgical intervention was recommended for pelvic fracture. Was then discharged back to [facility] for continued conditioning before returning home 3 weeks ago. Ambulates with a walker at baseline and has been unsteady per . Still has some pain in her pelvis from previous fall, per . Follows with Dr. Watkins for melanoma with mets to brain. Currently on oral regimen of dabrafenib and Mekinist, which will bring in from home. Allergies Allergy/AdvReac Type Severity Reaction Status Date / Time erythromycin base Allergy Unknown BROUGHT ON Verified 07/06/24 12:42 SEIZURES Macrolide Antibiotics Allergy Unknown Unknown Verified 07/06/24 12:42 Ketolide Antibiotics Allergy Unknown Unknown. Uncoded 07/06/24 12:42 On file w/ [facility]. Home Medications Medication Instructions Recorded Confirmed Type dabrafenib 75 mg capsule (Tafinlar) 75 mg PO AMHS 07/30/22 09/03/24 History multivitamin 1 tab PO QAM #30 tabs 04/28/24 09/03/24 Rx ondansetron HCl 8 mg tablet 8 mg PO BID PRN nausea #10 tabs 04/28/24 09/03/24 Rx paroxetine HCl 40 mg tablet 40 mg PO QAM #30 tabs 04/28/24 09/03/24 Rx triamcinolone acetonide 0.1 % 1 applic topical BID itching #15 04/28/24 09/03/24 Rx topical cream grams atorvastatin 20 mg tablet 20 mg PO QPM 07/06/24 09/03/24 History losartan 50 mg tablet 50 mg PO QAM 07/06/24 09/03/24 History tramadol 50 mg tablet 50 mg PO TID PRN Moderate Pain 07/06/24 09/03/24 History (Scale Score 5-6) trazodone 100 mg tablet 150 mg PO HS 07/06/24 09/03/24 History carbamazepine 200 mg 400 mg (2 x 200 mg) PO BID #120 07/12/24 09/03/24 Rx tablet,extended release,12 hr tabs cholecalciferol (vitamin D3) 25 25 mcg PO MOFR@0900 09/03/24 09/03/24 History mcg (1,000 unit) tablet levothyroxine 200 mcg tablet 200 mcg PO DAILY 09/03/24 09/03/24 History lorazepam 0.5 mg tablet 0.5 mg PO DAILY PRN anxiety 09/03/24 09/03/24 History trametinib 0.5 mg tablet (Mekinist) 1.5 mg PO DAILY 09/03/24 09/03/24 History Past Med/Surg History Problem List Fall Contusion of right shoulder (Acute) Left rib fracture (Acute) Closed fracture of right hip (Acute) Acetabulum fracture, right (Acute) Closed fracture of pubic ramus AMS (altered mental status) Fracture of left hip Pelvic ring fracture Weakness (Acute) Hypothyroidism Combined receptive and expressive aphasia Vasogenic edema (Acute) Memory changes Melanoma metastatic to brain (Chronic) Medical History Seizure disorder History of melanoma October 2017 --diag with superficial spreading melanoma of the left leg, [id number], Stage IIIc. 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 S/p re-excision and SLNB 12/26/2017 (-margins; 3 of 3 nodes involved) S/p nivolumab 02/04 - 04/08 S/p right parietal craniotomy for near total resection 08/20/2021 S/p Radiation therapy to brain mets, including post op bed; Aug -September 2021 S/p dabrafinib and trametinib 10/09 --dose reduced in mid 2021; ongoing Rx Jul 2022--SRS to left frontal lobe Aug 2023--s/p ALYSHA and bx of Left Frontal mass. Path-- brain parenchyma with reactive gliosis.Negative for malignancy. MRI feb 20, 2024--Parenchymal abnormality at the treatment site measuring 1.9 cm, not fully characterized. Surrounding vasogenic edema and mild mass effect, increased since pretreatment imaging. 03/03/2024--s/p L frontal craniotomy for resection ( Dr Hand) ; path showed Residual/recurrent metastatic melanoma Surgical History S/P craniotomy Dr. Hand [facility] 03/03/24 Left frontal craniotomy for tumor resection with vycor tube and dynamic retraction, use of brainlab neuronavigation, use of neurophysiological monitoring (SSEP/MEP/motor language, subcortical stimulation) Status post right foot surgery History of knee replacement procedure of left knee History of partial hysterectomy H/O craniotomy History of back surgery History of brain surgery x2 Hx of cholecystectomy Family History Grandfather (Maternal) Cancer Breast cancer Sister Cancer Breast cancer Father Cancer Colon cancer Social History Smoking Status: Former smoker Tobacco Type: Cigarettes Cigarettes Per Day: 13; Second Hand Exposure: Yes; Do You Dip or Chew Tobacco: No; Tobacco Cessation Education Requested by Patient: No Hx Alcohol Use: No Hx Substance Use: No Preferred Language: Montenegrin Communication Ability: Effective Visual Impairment: No Limitations Hearing Ability: Normal Statistical Typist Required: No Beliefs That Will Affect Care: None marital status: Current Living Situation: Spouse current occupational status: employed 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 [employer] Feels Safe at Home: Yes Safety Concerns: Feels Safe At This Time Physical Activity Frequency: Does not Exercise Assistive Devices: Cane, Glasses and Walker Review of Systems Review of Systems: Limited ROS per HPI Physical Exam Physical Exam: General Appearance: WD/WN, vitals as above, NAD, sitting up in bed, appears chronically ill, poor insight, scattered ecchymosis on limbs Head: normocephalic, atraumatic Eyes: normal inspection, PERRL, conjunctivae normal, anicteric sclerae ENT: external ear and nose normal, oropharynx dry mucous membranes Neck: normal visual inspection Respiratory: normal respiratory effort, lungs clear to auscultation. No accessory muscle use Cardiovascular: regular rate, rhythm, normal peripheral pulses, no BLE edema Chest: normal inspection of chest Abdomen/GI: normal bowel sounds, soft, nontender, no hepatosplenomegaly Extremities/Musculoskeletal: R shoulder with TTP, deduced ROM. R hip without TTP . Distal RLE NVI. No cyanosis or clubbing, extremities motor strength 5/5 Neurologic: PERRL, EOMI, accommodation nl, no face palsy, no dysarthria, CN's II-XI intact bilaterally and moves all extremities Psychiatric: A+Ox person Skin: no rashes, normal color, warm/dry Results & Data Results & Data Vital Signs (Past 12 Hours) Vital Signs Temp Pulse Resp BP Pulse Ox O2 Del Method O2 Flow Rate 09/03/24 12:30 66 15 154/86 H 100 Nasal Cannula 2 09/03/24 12:23 70 L Nasal Cannula 0 09/03/24 12:03 79 15 181/96 H 09/03/24 11:33 72 09/03/24 11:27 74 18 95 Room Air 09/03/24 10:56 36.4 C L 74 18 208/99 H 95 Room Air Laboratory Results Short CBC 09/03/24 Range/Units 12:08 WBC 6.93 (4.8-10.8) K/ul Hgb 15.1 (12.0-16.0) g/dl Hct 44.7 (37.0-47.0) % Plt Count 378 (130-400) K/uL BMP 09/03/24 12:08 Sodium 136 Potassium TNP Chloride 96 L Carbon Dioxide 33 H BUN 12 Creatinine 0.57 L Glucose 106 H Calcium 9.3 Liver Function 09/03/24 Range/Units 12:08 Total Bilirubin 0.7 (0.2-1.0) mg/dl AST TNP ALT 24 (7-52) U/L Alkaline Phosphatase 443 H (34-104) U/L Albumin 3.8 (3.4-5.0) gm/dl Urine 09/03/24 Range/Units 15:18 Urine Color Dark Yellow Urine Appearance Clear (Clear) Urine pH 6.5 (4.5-7.5) Ur Specific Dixon 1.023 (1.000-1.030) Urine Protein 2+ H (Negative) Urine Glucose (UA) Negative (Negative) Diagnostic Findings Cervical Spine CT 09/03/24 11:02 CT cervical spine wo con CT DOSE: 1203.13 mGy.cm CLINICAL HISTORY: 64 years-old Female with fall. Acute neck pain status post fall COMPARISON: CT head on Friday, CT cervical spine 02/26/2024 TECHNIQUE: Multiple axial CT images of the cervical spine were obtained without contrast. A dose lowering technique was utilized adhering to the principles of ALARA. FINDINGS: Anterior plate and screw fusion with discectomy changes redemonstrated at the C3-C7 levels. Severe intervertebral disc space narrowing again noted at C7-T1 and T1-T2. Unchanged grade 1 anterolisthesis of C3 on C4. No acute fra cture or subluxation identified. Severe degeneration of the temporomandibular joints. Trace left mastoid effusion. The cervical soft tissues appear unremarkable. No pneumothorax. 3 mm solid nodule noted within the left lung apex on image 89 series 7. Unremarkable soft tissues. IMPRESSION: No acute cervical spine fracture or subluxation. ACT 112: Negative or not required by law. The above report was generated using voice recognition software. It may contain grammatical, syntax or spelling errors. Electronically signed by: Dre Clark M.D. 09/03/2024 12:24 PM Chest X-Ray 09/03/24 11:02 XR chest 1V portable CLINICAL HISTORY: fall COMPARISON STUDY: Chest CT February 26, 2024. Chest radiograph July 06, 2024. FINDINGS: Postoperative findings within the spine are incidentally noted. There is no pneumothorax or pleural effusion. There is no consolidation or evidence for pulmonary edema. Cardiomediastinal silhouette is unremarkable. An acute appearing mildly displaced lateral left sixth rib fracture is new since radiographs of July 06, 2024. IMPRESSION: 1. No pneumothorax. 2. Acute mildly displaced lateral left sixth rib fracture. ACT 112: Negative or not required by law. Electronically signed by: Tc Umaña M.D. 09/03/2024 11:[address] 09/03/24 11:02 CT OF THE HEAD WITHOUT CONTRAST CLINICAL HISTORY: Fall. History of metastatic disease. COMPARISON STUDY: MRI of the brain and head CT July 06, 2024. TECHNIQUE: Helical axial images of the head were obtained without IV contrast. Automated exposure control was utilized for the study. A dose lowering technique was utilized adhering to the principles of ALARA. FINDINGS: Postoperative findings following craniotomies are unchanged. Hypodensities within the left frontal and right parietal lobes are unchanged. Ventricular system is unremarkable. Basal cisterns are patent. There are no ext ra axial collections. No calvarial fractures are present. There are no findings to suggest acute dural sinus thrombosis or acute territorial infarct. IMPRESSION: 1. No acute intracranial findings. 2. No change in appearance of the brain. Stable postoperative findings. 3. No calvarial fractures. ACT 112: Negative or not required by law. Electronically signed by: Tc Umaña M.D. 09/03/2024 12:09 PM Hip/Pelvis X-Ray 09/03/24 11:02 XR hip RT 2V w pelvis HISTORY: 64 years-old Female fall acute pelvic pain status post fall COMPARISON: CT pelvis 07/06/2024 TECHNIQUE: AP view of the pelvis with 2 views of the right hip FINDINGS: Demineralized appearance of the bones. Awke-wi-fcaobnzo osteoarthritis of the hips. Moderate flattening of the superior and superolateral aspects of the right femoral head represents a change from the prior study. Healing subacute and comminuted pelvic ring fractures demonstrate unchanged alignment from the prior study. No acute displaced fracture or dislocation. IMPRESSION: 1. Articular flattening of the right femoral head represents a change from the 07/06/[address] of the pelvis recommended. 2. Unchanged alignment with mild interval incomplete bony healing of the subacute and comminuted pelvic ring fractures which are unchanged in alignment from the prior. ACT 112: Negative or not required by law. The above report was generated using voice recognition software. It may contain grammatical, syntax or spelling errors. Electronically signed by: Dre Clark M.D. 09/03/2024 11:56 AM Shoulder X-Ray 09/03/24 11:02 XR shoulder RT min 2V routine CLINICAL HISTORY: fall COMPARISON: Chest radiograph April 11, 2024. FINDINGS: Postoperative findings within the spine are incidentally noted. Calcific densities within the joint space are present. There is a curvilinear ossific density along the glenoid. Glenohumeral alignment is difficult to assess on this examination. AC joint is intact. There are moderate degenerative changes within the right shoulder. No definite acute fractures. IMPRESSION: 1. Glenohumeral alignment difficult to assess on this exam. Anterior shoulder dislocation would be difficult to completely excluded although findings likely technical. A scapular Y view is recommended for further evaluation. 2. Curvilinear ossific density along the glenoid. This is likely chronic although a fracture fragment could appear similar. ACT 112: Negative or not required by law. Electronically signed by: Tc Umaña M.D. 09/03/2024 12:[address] 09/03/24 11:38 CT hip RT wo con CLINICAL HISTORY: Right hip pain following fall. COMPARISON STUDY: Pelvis CT July 06, 2024. Right hip radiographs performed earlier today TECHNIQUE: Axial images of the right hip were obtained without IV contrast. Sagittal and coronal reformats were viewed. Automated exposure control was utilized for the study. A dose lowering technique was utilized adhering to the principles of ALARA. FINDINGS: Bilateral pubic ring fractures were present on CT of July 06, 2024. Associated callus formation has increased. Ossific material within the right adductor musculature has increased. This favors examination of callus formation and myositis ossificans. An acute appearing nondisplaced right acetabular roof fracture has developed since CT of July 06, 2024. In addition, there has been interval development of flattening of the right femoral head with a right femoral head subchondral fracture which is minimally depressed. There is moderate osteoarthritis of the right hip. No suspicious osseous lesions are identified. Multifocal ossific/calcific material within the right hip joint is now present. IMPRESSION: 1. Acute appearing nondisplaced right acetabular roof fracture. This is new since CT of July 06, 2024. 2. Interval development of a subchondral fracture within the right femoral head with flattening of the femoral head since CT of July 06, 2024. 3. Redemonstration of subacute bilateral pubic ring fractures with extensive callus formation and possible associated myositis ossificans within the adductor muscles. 4. Moderate right hip osteoarthritis. Interval development of multifocal calcific/ossific material within the right hip joint. ACT 112: Negative or not required by law. Electronically signed by: Tc Umaña M.D. 09/03/2024 12:23 PM ECG Additional Comments: EKG with NSR 72 bpm, no acute ST changes Supervising Physician Co-Signing Physician Notes 64-year-old female with PMH of melanoma with metastatic disease of the brain (dx 2021, original site left leg, s/p XRT, s/p L frontal craniotomy at [facility] 03/13) complicated by seizure disorder, chronic hyponatremia, hypertension, CAD, seizure disorder, cerebral atrophy, mood disorder presents from home after a fall at home. Pt has short term memory issues and history obtained from over the phone by Nia FROST. Pt was noted lying down on floor yelling for help today AM per . He called EMS because he couldn't get her up. She was brought in ED for further eval. Pt reports no pain at rest, but has painful rom at rt shoulder and rt hip. Pt denies chest pain or sore throat. Labs and imagings reviewed, WBC fairly wnl. RFT fairly wnl. ALP elevated at base line. CT Head and CT C spine: no acute finding. CXR: Acute mildly displaced lateral left sixth rib fracture. No ptx. Hip Imaging: acute non displaced right acetabular roof fracture. Subchondral fracture w/in right femoral head. Subacute b/l pubic ring fractures. Scapular Y view XR of Rt shoulder: pending. Rt hip fracture, rt shoulder injury /?dislocation: ortho consult, pain mx, bowel reg. NPO midnight. On exam: GENERAL: Alert and oriented x3. NAD, on 3.5L NC O2 HEENT: No pallor, no icterus. Pupils equal, round and reactive to light. Oral mucosa moist. NECK: No JVD, no neck masses. HEART: S1 and S2 heard. Regular rate and rhythm. No murmur, no gallop. RESPIRATORY SYSTEM: Normal AP diameter. No accessory muscle use. No wheezing, no crackles. ABDOMEN: Soft, bowel sounds present, nontender, no distention. CENTRAL NERVOUS SYSTEM: No facial droop. Speech is clear. Obeys simple commands. Moves extremities. EXTREMITIES: trace ble edema, no erythema seen. Rt shoulder painful rom,no swelling noted. RLE painful rom at hip. I have seen and examined the patient and have discussed the case with the provider above. I agree with the assessment and plan as stated. Time spent: 25 min (1) Fall Encounter type: initial encounter Qualified Code(s): W19.XXXA - Unspecified fall, initial encounter (2) Closed fracture of right hip Encounter type: initial encounter Qualified Code(s): S72.001A - Fracture of unspecified part of neck of right femur, initial encounter for closed fracture (3) Acetabulum fracture, right Encounter type: initial encounter Fracture alignment: nondisplaced Fracture type: closed Sublocation of acetabulum: unspecified portion of acetabulum Qualified Code(s): S32.401A - Unspecified fracture of right acetabulum, initial encounter for closed fracture (4) Contusion of right shoulder Encounter type: initial encounter Qualified Code(s): S40.011A - Contusion of right shoulder, initial encounter (5) Left rib fracture Encounter type: initial encounter Fracture type: closed Rib fracture type: single rib Qualified Code(s): S22.32XA - Fracture of one rib, left side, initial encounter for closed fracture
[2024-09-03 14:51] LABS: Partial Thromboplastin Ratio 1.6; Partial Thromboplastin Time 42 Seconds (21-31); Prothrombin Time 10.5 Seconds (9.0-12.0)
--- NOTE | 2024-09-03 15:29 | Electrocardiogram Report ---
Test Reason : Blood Pressure : */* mmHG Vent. Rate : 72 BPM Atrial Rate : 72 BPM P-R Int : 212 ms QRS Dur : 80 ms QT Int : 420 ms P-R-T Axes : 61 47 58 degrees QTcB Int : 459 ms Sinus rhythm with 1st degree A-V block Septal infarct , age undetermined Abnormal ECG When compared with ECG of 06-Jul-2024 09:35, NH interval has increased Septal infarct is now Present Nonspecific T wave abnormality no longer evident in Inferior leads T wave inversion no longer evident in Lateral leads Confirmed by Napoleon Celeste ([id number]) on 09/03/2024 3:29:38 PM Referred By: Confirmed By: Napoleon Celeste
[2024-09-03] MEDS: ACETAMINOPHEN 500 MG TAB PO SCH (15:49)
[2024-09-03 15:56] LABS: Appearance Urine Clear (Clear); Bacteria Urine Automated None Seen (None Seen); Bilirubin Urine Negative (Negative); Blood Urine Negative (Negative); Color Urine Dark Yellow; Glucose Urine UA Negative (Negative); Ketones Urine 1+ (Negative); Leukocyte Esterase Urine Trace (Negative); Mucus Urine Present (None Prsent); Nitrite Urine Negative (Negative); Protein Urine 2+ (Negative); Specific Gravity Urine 1.023 (1.000-1.030); Urobilinogen Urine Negative (Negative); WBC Urine Automated 0-5 /hpf (0-5); pH Urine 6.5 (4.5-7.5)
--- OUTSIDE RECORDS SUMMARY | 2024-09-03 16:17 | External Medical Summary | Summary of Care ---
Author Name Unknown Organization [facility] Address [address] [place] [facility] [place] [address] Phone [phone] Care Team Providers Care Blender Name Role Phone Martin Solorio MD Primary Care Provider [phone] Reason for Visit * Reason Onset Date Comments Home Health 05/26/2024 Encounter Details Date Type Department Care Team (Late st Contact Info) Description 05/26/[address] [facility] DEPT CLOSED - 07/08/24 [address] [facility] [phone] Martin Solorio MD [address] [place] [address] [place] [id number] Home Health Allergies Active Allergy Reactions Criticality Noted Date Comments Erythromycin 08/15/1997 seizures documented as of this encounter (statuses as of 08/26/2024) Medications traZODone HCl 100 MG Oral Tablet (Desyrel)Indicati ons:Insomnia, unspecified type TAKE 1 & 1/2 (ONE & ONE-HALF) TABLETS BY MOUTH AT BEDTIME 45 Tablet 5 05/06/20 23 Active Atorvastatin Calcium 20 MG Oral Tablet [...] MG Oral Tablet (Ativan) 02/29/20 24 Active PARoxetine HCl 40 MG [...] mouth in the morning. 90 Tablet 5 5 2:32 PM EST 05/04/20 24 Active Dabrafenib Mesylate 75 MG Oral Capsule (Tafinlar) Take 1 capsule by mouth in the morning and 1 capsule before bedtime. 120 Capsule 2 4 3:06 PM EST 05/04/20 24 Active Vitamin D (Ergocalciferol) 53521 UNIT Oral Capsule Take 50,000 Units by mouth once a week. For 8 weeks 8 Capsule 05/19/20 24 Active documented as of this encounter (statuses as of 08/26/2024) Active Problems Problem Noted Date Diagnosed Date History of stroke 06/04/2024 Overview (06/04/2024): 08/22/23 MRI "There is a chronic lacunar infarction within the left thalamus." Cerebral atrophy 09/30/2023 Spinal stenosis of cervical region 09/30/2023 Coronary artery disease invo lving [place] coronary artery of [place] heart without angina pectoris 09/30/2023 Pulmonary nodules [...] as of this encounter (statuses as of 08/26/2024) Resolved Problems Problem Noted Date Diagnosed Date Resolved Date 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 Never true 03/11/20 24 Within the past 12 months, t he food you bought just didn't last and you didn't have money to get more. Never true 03/11/2024 Do you need food for this week? 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 Will be seeing them tomorrow along with a nurse. documented in this encounter Plan of Treatment Upcoming Encounters Date Type Department Care Team (Late st Contact Info) Description 09/07/2024 9:45 AM EST Pharmacy Pharmacy Hematology Oncology [facility] [address] [place] [address] [facility], [facility] Hem/Onc [address] [place] [address] 10/05/2024 12:30 PM EDT Telemedicine Care at Home [address] [place] [address] Kori Dumont PA-C [address] [place] [address] 11/26/2024 12:00 PM EDT Office Visit [facility], [place] [facility] [address] [place] [phone] Martin Solorio MD [address] [place] [address] 02/14/2025 8:00 AM EDT Imaging Radiology [address] [place] [address] Scheduled Procedures Name Priority Associated Diagnoses Date/Ti me COLONOSCOPY FLEXIBLE PROXIMA L DIAGNOSTIC Recall Family history of colon cancer Health Maintenance Due Date Last Done Comments Alpha-1 Antitrypsin 1976 Hepatitis C Screening 1976 Cologuard 2003 Fecal Occult Blood Test 2003 Sigmoidoscopy 2003 DXA Scan 2023 Pneumococcal Vaccine: 50+ Years (3 of 3 - PPSV23, PCV20 or PCV21) 05/03/2023 03/08/2023, 04/22/2022, 04/22/2022, Additional history exists Influenza Vaccine (FLU shot) (#1) 2024 03/08/2023, 04/04/2021, 04/04/2021, Additional history exists Depression Screening 09/10/2024 09/10/2023 Adult Wellness Visit 09/29/2024 09/30/2023 DISCUSS TOBACCO CESSATION (REFER TO SMARTSET #3291) 01/28/2025 01/29/2024 Mammogram 02/12/2025 02/13/2024, 01/19, 02/06/2021, Additional history exists O2 ASSESSMENT COMPLETED IN PAST YEAR FOR COPD 03/03/2025 03/03/2024 GFR 08/23/2025 08/23/2024, 02/18, 01/29/2024, Additional history exists TSH 08/23/2025 08/23/2024, 01/18, 08/08/2023, Additional history exists Colonoscopy 06/05/2026 06/05/2021, 05/21, [...] this encounter Medical Devices Implanted Type Area C Application Developer Device Identifier Shelf Expiration Date Model / Serial / Lot Cover Nilda Hole 24mm 421.528 - [id number] Implanted:Qty: 1 on 08/20/2021 by Joni Hand III, MD at OR [facility] Right: Head SYNTHES MAXILLOFACIAL 421.528 / / Plate Y Ti Lo Db 6h 21 421.517 - [id number] Implanted:Qty: 1 on 08/20/2021 by Joni Hand III, MD at OR [facility] Right: Head SYNTHES MAXILLOFACIAL 421.517 / / Screw Ti Lo Pro Sd 4mm 400.834 - [id number] Implanted:Qty: 10 on 08/20/2021 by Joni Hand III, MD at OR [facility] Right: Head SYNTHES MAXILLOFACIAL 400.834 / / Cement Hydroset Injectable 5cc - [id number] Implanted:Qty: 1 on 03/03/2024 by Joni Hand III, MD at OR [facility] Left: Head SUZANNA [id number] 09/19/2025 [id number] / / [id number] Cover Bur Hol Ti Lo 17 421.527 - [id number] Implanted:Qty: 1 on 03/03/2024 by Joni Hand III, MD at OR [facility] Left: Head SYNTHES MAXILLOFACIAL 421.527 / / Plate Ti Lo Pro Str 2h 421.502 - [id number] Implanted:Qty: 2 on 03/03/2024 by Joni Hand III, MD at OR [facility] Left: Head SYNTHES MAXILLOFACIAL 421.502 / / Screw 4mm Ti Low Pro Sdrill - [id number] Implanted:Qty: 7 on 03/03/2024 by Joni Hand [...] and were consensually agreed upon. Care Teams Blender Relationship Specialty Start Date End Date Martin Solorio MD [address] [place] [address] PCP - General Family Medicine 02/20/21 documented as of this encounter
--- OUTSIDE RECORDS SUMMARY | 2024-09-03 16:17 | External Medical Summary | Summary of Care ---
Author Name Unknown Organization [facility] Address [address] [facility] [place] [address] Phone [phone] Care Team Providers Care Milk Treater Name Role Phone Martin Solorio MD Primary Care Provider [phone] Encounter Details Date Type Department Care Team (Late st Contact Info) Description 08/24/2024 Telephone [facility] [place] [address] [facility] [place] [address] Martin Solorio MD [address] [place] [address] Allergies Active Allergy Reactions Criticality Noted Date Comments Erythromycin 08/15/1997 seizures documented as of this encounter (statuses as of 08/26/2024) Medications traZODone HCl 100 MG Oral Tablet (Desyrel)Indicatio [...] EST 05/04/20 24 Active Vitamin D (Ergocalciferol) 67212 UNIT Oral Capsule Take 50,000 Units by mouth once a week. For 8 weeks 8 Capsule 05/19/20 24 Active Acetaminophen 325 MG Oral Tablet (Tylenol) Take 2 Tablets by mouth. 04/27/20 24 Active Levothyroxine Sodium 175 MCG Oral Tablet (Levoxyl)Indicatio ns:Acquired hypothyroidism Take 1 Tablet by mouth daily first thing in the morning. 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 60 Tablet 08/16/19 25 Active Vitamin D (Cholecalciferol) 25 MCG (1000 UT) Oral CapsuleIndications :Vitamin D deficiency 1 tab twice per week 08/24/19 25 Active documented as of this encounter (statuses as of 08/26/2024) Active Problems Problem Noted Date Diagnosed Date History of stroke 06/04/2024 Overview (06/04/2024): 08/22/23 MRI "There is a chronic lacunar infarction within the left thalamus." Cerebral atrophy 09/30/2023 Spinal stenosis of cervical region 09/30/2023 Coronary artery disease invo lving [place] coronary artery of [place] heart without angina pectoris 09/30/2023 Pulmonary nodules [...] Telephone Encounter - Iveth Hopkins LPN - 08/26/2024 9:55 AM EST I attempted to call the patient, no answer lm that I was calling in regards to lab results and thatI would send a [facility] message as well. * Telephone Encounter - Martin Solorio MD - 08/24/2024 12:23 PM EST Notify Pt: thyroid is off some. Need to increase Levothyroxine 175mcg to 200 mcg daily. Repeat TSH 2 months Carbamazepine level is a little high. Just want to be sure she is currently using Carbamazepine 200mg . 2 tabs twice daily. I'm not going to decrease the dose as she has been on even higher dose in past. Vitamin D is 71 which is a little high.I would have her take OTC Vit D 1000 units, 1 tab twice per week. documented in this encounter Plan of Treatment Upcoming Encounters Date Type Department Care Team (Late st Contact Info) Description 09/07/2024 9:45 AM EST Pharmacy Pharmacy Hematology Oncology [facility] [address] [place] [address] [facility], [facility] Hem/Onc [address] [place] [address] 10/05/2024 12:30 PM EDT Telemedicine Care at Home [address] [place] [address] Kori Dumont PA-C [address] [place] [address] 11/26/2024 12:00 PM EDT Office Visit [facility] [address] [place] [phone] Martin Solorio MD [address] [facility] [address] 02/14/2025 8:00 AM EDT Imaging Radiology [facility] [address] [facility] [place] [address] [place] [address] Scheduled [...] CESSATION (REFER TO SMARTSET #3293) 01/28/2025 01/29/2024 Mammogram 02/12/2025 02/13/2024, 01/19, 02/06/2021, [...] this encounter Medical Devices Implanted Type Area Ice Grinder Device Identifier Shelf Expiration Date Model / Serial / Lot Cover Nilda Hole 24mm 421.528 - [id number] Implanted:Qty: 1 on 08/20/2021 by Joni Hand III, MD at OR [facility] Right: Head SYNTHES MAXILLOFACIAL 421.528 / / Plate Y Ti Lo Db 6h 21 421.517 - [id number] Implanted:Qty: 1 on 08/20/2021 by Joni Hand III, MD at OR [facility] Right: Head SYNTHES MAXILLOFACIAL 421.517 / / Screw Ti Lo Pro Sd 4mm 400.834 - [id number] Implanted:Qty: 10 on 08/20/2021 by Joni Hand III, MD at OR [facility] Right: Head SYNTHES MAXILLOFACIAL 400.834 / / Cement Hydroset Injectable 5cc - [id number] Implanted:Qty: 1 on 03/03/2024 by Joni Hand III, MD at OR [facility] Left: Head SUZANNA [id number] 09/19/2025 [id number] / / [id number] Cover Bur Hol Ti Lo 17 421.527 - [id number] Implanted:Qty: 1 on 03/03/2024 by Joni Hand III, MD at OR [facility] Left: Head SYNTHES MAXILLOFACIAL 421.527 / / Plate Ti Lo Pro Str 2h 421.502 - [id number] Implanted:Qty: 2 on 03/03/2024 by Joni Hand III, MD at OR [facility] Left: Head SYNTHES MAXILLOFACIAL 421.502 / / Screw 4mm Ti Low Pro Sdrill - [id number] Implanted:Qty: 7 on 03/03/2024 by Joni Hadn III, MD at OR [facility] Left: Head SYNTHES MAXILLOFACIAL 400.834E / / documented as of this encounter Visit Diagnoses Diagnosis Vitamin D deficiency- Primary Unspecified vitamin D deficiency Screening mammogram for breast cancer documented in [...] and were consensually agreed upon. Care Teams Milk Treater Relationship Specialty Start Date End Date Martin Solorio MD [address] [place] [address] PCP - General Family Medicine 02/20/21 documented as of this encounter
--- OUTSIDE RECORDS SUMMARY | 2024-09-03 16:17 | External Medical Summary | Summary of Care ---
Author Name Unknown Organization [facility] Address [address] [place] [facility] [place] [address] Phone [phone] Care Team Providers Care Concrete Mixer Truck Driver Name Role Phone Martin Solorio MD Primary Care Provider [phone] Reason for Visit * Reason Onset Date Comments Home Health 05/28/2024 Encounter Details Date Type Department Care Team (Late st Contact Info) Description 05/28/2024 Telephone [facility] DEPT CLOSED - 07/08/24 [address] [facility] [place] [phone] Martin Solorio MD [address] [place] [address] [place] [id number] Home Health Allergies Active Allergy Reactions Criticality Noted Date Comments Erythromycin 08/15/1997 seizures documented as of this encounter (statuses as of 08/28/2024) Medications traZODone HCl 100 MG Oral Tablet [...] EST 05/04/20 24 Active Vitamin D (Ergocalciferol) 76515 UNIT Oral Capsule Take 50,000 Units by mouth once a week. For 8 weeks 8 Capsule 05/19/20 24 Active documented as of this encounter (statuses as of 08/28/2024) Active Problems Problem Noted Date Diagnosed Date [...] as of this encounter (statuses as of 08/28/2024) Resolved Problems Problem Noted Date Diagnosed Date [...] as of this encounter (statuses as of 08/28/2024) Immunizations Name Administration Dates Next Due COVID-19, [...] on file Not on file Not on pharmacy delivery driver Not on file Not on file Not [...] encounter Miscellaneous Notes * Telephone Encounter - Katya Crawley LPN - 05/28/2024 10:46 AM EST Wei [facility] calling she is changing date on order for speech therapy eval to next week per pt request. documented in this encounter Plan of Treatment Upcoming Encounters Date Type Department Care Team (Late st Contact Info) Description 09/07/2024 9:45 AM EST Pharmacy Pharmacy Hematology Oncology [facility] [address] [place] [address] [facility], [facility] Hem/Onc [address] [place] [address] 10/05/2024 12:30 PM EDT Telemedicine Care at Home [address] [place] [address] Kori Dumont PA-C [address] [place] [address] 11/26/2024 12:00 PM EDT Office Visit [facility] [place] [address] [place] [phone] Martin Solorio MD [address] [place] [address] 02/14/2025 8:00 AM EDT Imaging Radiology [address] [place] [address] [...] this encounter Medical Devices Implanted Type Area Supervisor Detasseling Crew Device Identifier Shelf Expiration Date Model / Serial / Lot Cover Nilda Hole 24mm 421.528 - [id number] Implanted:Qty: 1 on 08/20/2021 by Joni Hand III, MD at OR [facility] [place] Right: Head SYNTHES MAXILLOFACIAL 421.528 / / Plate Y Ti Lo Db 6h 21 421.517 - [id number] Implanted:Qty: 1 on 08/20/2021 by Joni Hand III, MD at OR [facility] [place] Right: Head SYNTHES MAXILLOFACIAL 421.517 / / Screw Ti Lo Pro Sd 4mm 400.834 - [id number] Implanted:Qty: 10 on 08/20/2021 by Joni Hand III, MD at [place] [facility] [place] Right: Head SYNTHES MAXILLOFACIAL 400.834 / / Cement Hydroset Injectable 5cc - [id number] Implanted:Qty: 1 on 03/03/2024 by Joni Hand III, MD at OR [facility] [place] Left: Head SUZANNA [id number] 09/19/2025 [id number] / / [id number] Cover Bur Hol Ti Lo 17 421.527 - [id number] Implanted:Qty: 1 on 03/03/2024 by Joni Hand III, MD at OR [facility] [place] Left: Head SYNTHES MAXILLOFACIAL 421.527 / / Plate Ti Lo Pro Str 2h 421.502 - [id number] Implanted:Qty: 2 on 03/03/2024 by Joni Hand III, MD at OR [facility] [place] Left: Head SYNTHES MAXILLOFACIAL 421.502 / / Screw 4mm Ti Low Pro Sdrill - [id number] Implanted:Qty: 7 on 03/03/2024 by Joni Hand [...] and were consensually agreed upon. Care Teams Concrete Mixer Truck Driver Relationship Specialty Start Date End Date Martin Solorio MD [address] [place] [address] PCP - General Family Medicine 02/20/21 documented as of this encounter
--- OUTSIDE RECORDS SUMMARY | 2024-09-03 16:17 | External Medical Summary | Summary of Care ---
Author Name Unknown Organization [facility] Address [address] [facility] [place] [address] Phone [phone] Care Team Providers Care Circulating Process Inspector Name Role Phone Martin Solorio MD Primary Care Provider [phone] Reason for Visit * Reason Onset Date Comments Home Health 06/02/2024 Encounter Details Date Type Department Care Team ([facility] st Contact Info) Description 06/02/2024 Telephone [facility] DEPT CLOSED - 07/08/24 [address] [facility] [place] [phone] Martin Solorio MD [address] [place] [address] [place] [id number] Home Health Allergies Active Allergy Reactions Criticality Noted Date Comments Erythromycin 08/15/1997 seizures documented as of this encounter (statuses as of 09/02/2024) Medications traZODone HCl 100 MG Oral Tablet [...] in the morning. 90 Tablet 5 5 2:19 PM EST 05/04/20 24 Active Dabrafenib Mesylate 75 MG Oral Capsule (Tafinlar) Take 1 capsule by mouth in the morning and 1 capsule before bedtime. 120 Capsule 2 5 2:19 PM EST 05/04/20 24 Active Vitamin D (Ergocalciferol) 28250 UNIT Oral Capsule Take 50,000 Units by mouth once a week. For 8 weeks 8 Capsule 05/19/20 24 Active documented as of this encounter (statuses as of 09/02/2024) Active Problems Problem Noted Date Diagnosed Date History of stroke 06/04/2024 Overview (06/04/2024): 08/22/23 MRI "There is a chronic lacunar infarction within the left thalamus." Cerebral atrophy 09/30/2023 Spinal stenosis of cervical region 09/30/2023 Coronary artery disease invo lving [place] coronary artery of ruby heart without angina pectoris 09/30/2023 Pulmonary nodules [...] as of this encounter (statuses as of 09/02/2024) Resolved Problems Problem Noted Date Diagnosed Date [...] as of this encounter (statuses as of 09/02/2024) Immunizations Name Administration Dates Next Due COVID-19, [...] on file Not on file Not on oracle etl developer Not on file Not on file Not [...] encounter Miscellaneous Notes * Telephone Encounter - Argenis Cano LPN - 06/02/2024 3:22 PM EST HH Concerns FARIHA Chen, Calling from: [facility] Report/Concerns of: Pain Symptoms: See narrative Vitals: T 97.9 P 84 RR 16 BP 130/80 SP O2 94% RA Lung sounds clear Narrative: April is calling to report that the pt was having a lot of pain this AM to pt's lower back and right leg pain, to the point that the pt had a difficult time getting dressed. Pain at that time was 10/10 and pt took an oxycodone 5 mg that was previously prescribed by Dr. Tesfaye from [facility]. Oxycodone was effective and was a 5/10 while April was there. Did make April aware of PCP's note dated 06/01/24 and that we left the pt a message to give this information to her and her spouse. PT documented that the pt was weaker this week compared to last. FYI. Call back April with any advice or orders at [phone]. Please fax new orders to [facility] Home Health [phone] documented in this encounter Plan of Treatment Upcoming Encounters Date Type Department Care Team (Late st Contact Info) Description 09/07/2024 9:45 AM EST Pharmacy Pharmacy Hematology Oncology [facility] [address] [place] [address] [facility], [facility] Clinic Hem/Onc [address] [place] [address] 10/05/2024 12:30 PM EDT Telemedicine Care at Home [address] [place] [address] Kori Dumont PA-C [address] [place], [place] [id number] 11/02/2024 11:00 AM EDT Office Visit Hematology/Oncology [facility] [address] [place] [phone] Benja Watkins MD [address] [place] [address] 11/26/2024 12:00 PM EDT [facility] [address] [facility] [place] [phone] Martin Solorio MD [address] [facility] [place] [address] 02/14/2025 8:00 AM EDT Imaging Radiology [address] [place] [phone] Scheduled Procedures Name Priority Associated Diagnoses Date/Ti [...] this encounter Medical Devices Implanted Type Area Barkeep Device Identifier Shelf Expiration Date Model / Serial / Lot Cover Fraser Hole 24mm 421.528 - [id number] Implanted:Qty: 1 on 08/20/2021 by Joni Hand III, MD at OR [facility] Right: Head SYNTHES MAXILLOFACIAL 421.528 / / Plate Y Ti Lo Db 6h 21 421.517 - [id number] Implanted:Qty: 1 on 08/20/2021 by Joni Hand III, MD at OR [facility] Right: Head SYNTHES MAXILLOFACIAL 421.517 / / Screw Ti Lo Pro Sd 4mm 400.834 - [id number] Implanted:Qty: 10 on 08/20/2021 by Joni Hand III, MD at OR [facility] Right: Head SYNTHES MAXILLOFACIAL 400.834 / / Cement Hydroset Injectable 5cc - [id number] Implanted:Qty: 1 on 03/03/2024 by Joni Hand III, MD at OR [facility] Left: Head SUZANNA [id number] 09/19/2025 [id number] / / [id number] Cover Bur Hol Ti Lo 17 421.527 - [id number] Implanted:Qty: 1 on 03/03/2024 by Joni Hand III, MD at OR [facility] Left: Head SYNTHES MAXILLOFACIAL 421.527 / / Plate Ti Lo Pro Str 2h 421.502 - [id number] Implanted:Qty: 2 on 03/03/2024 by Joni Hand III, MD at OR [facility] Left: Head SYNTHES MAXILLOFACIAL 421.502 / / Screw 4mm Ti Low Pro Sdrill - [id number] Implanted:Qty: 7 on 03/03/2024 by Joni Hand [...] and were consensually agreed upon. Care Teams Circulating Process Inspector Relationship Specialty Start Date End Date Martin Solorio MD [address] [facility] [place] [address] PCP - General Family Medicine 02/20/21 documented as of this encounter
--- OUTSIDE RECORDS SUMMARY | 2024-09-03 16:18 | External Medical Summary ---
Author Name Unknown Address Unknown Organization K01:LABORATORY [facility] [place] - [address] [facility] [place] [address] Laboratory Report Ordering Provider Test Date Status TYRONE DE PAZ 08/23/2024 13:49:22 Final Observation Date Value Abnormality Reference (Units ) Status BUN 08/23/2024 13:49:22 14 6-20 (mg/dL) Final Creatinine 08/23/2024 13:49:22 0.6 0.5-1.0 (mg/dL) Final Glomerular filtration rate/1.73 sq M.predicted [Volume Rate/Area] in Serum, Plasma or Blood by Creatinine-based formula (CKD-EPI) 08/23/2024 13:49:22 >90 >=60 (mL/min) Final eGFR is calculated based on the CKD-EPI 2020 equation. Sodium 08/23/2024 13:49:22 135 135-146 (m mol/L) Final Potassium 08/23/2024 13:49:22 3.4 Below low normal 3.5 -5.1 (mmol/L) Final Cl 08/23/2024 13:49:22 97 Below low normal 98- 107 (mmol/L) Final CO2 08/23/2024 13:49:22 25 22-32 (mmo l/L) Final Anion gap 08/23/2024 13:49:22 13 7-15 (mmol /L) Final Glucose 08/23/2024 13:49:22 97 70-120 (mg /dL) Final Albumin 08/23/2024 13:49:22 3.5 Below low normal 3.8 -5.0 (g/dL) Final AST (Aspartate aminotransferase) 08/23/2024 13:49:22 26 10-35 (U/L) Fin al Alk Phos 08/23/2024 13:49:22 347 Above high normal 35 -130 (U/L) Final Bilirubin, Total 08/23/2024 13:49:22 0.3 <=1 .2 (mg/dL) Final Calcium 08/23/2024 13:49:22 9.1 8.4-10.2 ( mg/dL) Final Protein 08/23/2024 13:49:22 6.5 6.0-8.3 (g /dL) Final ALT (Alanine aminotransferase) 08/23/2024 13:49:22 13 10-35 (U/L) Adryan guerrero Performing Location LABORATORY [facility] [place] - [address] [facility] [address]
--- OUTSIDE RECORDS SUMMARY | 2024-09-03 16:18 | External Medical Summary | Summary of Care ---
Author Name Unknown Organization [facility] Address [address] [facility] [place] [address] Phone [phone] Care Team Providers Care Mucker Operator Name Role Phone Martin Solorio MD Primary Care Provider [phone] Encounter Details Date Type Department Care Team (Late st Contact Info) Description 08/24/2024 Telephone [facility] Paul [address] [facility] [place] [address] Martin Solorio MD 226 [facility] [place] [address] Allergies Active Allergy Reactions Criticality Noted Date Comments Erythromycin 08/15/1997 seizures documented as of this encounter (statuses as of 08/24/2024) Medications traZODone HCl 100 MG Oral Tablet [...] EST 05/04/20 24 Active Vitamin D (Ergocalciferol) 41646 UNIT Oral Capsule Take 50,000 Units by [...] as of this encounter (statuses as of 08/24/2024) Active Problems Problem Noted Date Diagnosed Date History of stroke 06/04/2024 Overview (06/04/2024): 08/22/23 MRI "There is a chronic lacunar infarction within the left thalamus." Cerebral atrophy 09/30/2023 Spinal stenosis of cervical region 09/30/2023 Coronary artery disease invo lving [place] coronary artery of [place] heart without angina pectoris 09/30/2023 Pulmonary [...] as of this encounter (statuses as of 08/24/2024) Resolved Problems Problem Noted Date Diagnosed Date [...] as of this encounter (statuses as of 08/24/2024) Immunizations Name Administration Dates Next Due COVID-19, [...] Care Team (Late st Contact Info) Description 08/31/2024 9:00 AM EST Office Visit [facility]ology[facility] [address] [facility] [place], [place] [address] Benja Watkins MD [address] [facility] [place] [address] 09/07/2024 9:45 AM EST Pharmacy Pharmacy Hematology Oncology [facility] [address] [place] [address] [facility] Hem/Onc [address] [place] [address] 10/05/2024 12:30 PM EDT Telemedicine Care at Home [address] [place] [address] Kori Dumont PA-C [address] [place] [address] 11/26/2024 12:00 PM EDT [facility] [address] [place] [phone] Martin Solorio MD [address] [place] [address] 02/14/2025 8:00 AM EDT Imaging Radiology [address] [place] [address] [...] this encounter Medical Devices Implanted Type Area Forepart Rounder Device Identifier Shelf Expiration Date Model / Serial / Lot Cover Nilda Hole 24mm 421.528 - [id number] Implanted:Qty: 1 on 08/20/2021 by Joni Hand III[place] [facility]: Head SYNTHES MAXILLOFACIAL 421.528 / / Plate Y Ti Lo Db 6h 21 421.517 - [id number] Implanted:Qty: 1 on 08/20/2021 by Joni Hand III, [place] [facility]: Head SYNTHES MAXILLOFACIAL 421.517 / / Screw Ti Lo Pro Sd 4mm 400.834 - [id number] Implanted:Qty: 10 on 08/20/2021 by Joni Hand III, [place] [facility] [place]: Head SYNTHES MAXILLOFACIAL 400.834 / / Cement Hydroset Injectable 5cc - [id number] Implanted:Qty: 1 on 03/03/2024 by Joni Hand III, [place] [facility] Left: Head SUZANNA [id number] 09/19/2025 [id number] / / [id number] Cover Bur Hol Ti Lo 17 421.527 - [id number] Implanted:Qty: 1 on 03/03/2024 by Joni Hand III, [place] [facility]: Head SYNTHES MAXILLOFACIAL 421.527 / / Plate Ti Lo Pro Str 2h 421.502 - [id number] Implanted:Qty: 2 on 03/03/2024 by Joni Hand III, [place] [facility]: Head SYNTHES MAXILLOFACIAL 421.502 / / Screw 4mm Ti Low Pro Sdrill - [id number] Implanted:Qty: 7 on 03/03/2024 by Joni Hand [...] and were consensually agreed upon. Care Teams Mucker Operator Relationship Specialty Start Date End Date Martin Solorio MD [address] [place] [address] PCP - General Family Medicine 02/20/21 documented as of this encounter
--- OUTSIDE RECORDS SUMMARY | 2024-09-03 16:18 | External Medical Summary ---
Author Name Unknown Address Unknown Organization K01:LABORATORY C - [address] [place] [address] Laboratory Report Ordering Provider Test Date Status TYRONE DE PAZ 08/23/2024 13:49:22 Final Observation Date Value Abnormality Reference (Units ) Status T4, Free 08/23/2024 13:49:22 1.3 0.9-1.7 (n g/dL) Final Performing Location [facility] - [address] [place] [address]
--- OUTSIDE RECORDS SUMMARY | 2024-09-03 16:18 | External Medical Summary | Summary of Care ---
Author Name Unknown Organization [facility] Address [address] [facility] [place] [address] Phone [phone] Care Team Providers Care Lock Tender Chief Operator Name Role Phone Martin Solorio MD Primary Care Provider [phone] Encounter Details Date Type Department Care Team (Late st Contact Info) Description 08/24/2024 Telephone [facility] Paul 226 [facility] [place] [address] Martin Solorio MD 226 [place] [address] Allergies Active Allergy Reactions Criticality Noted [...] EST 05/04/20 24 Active Vitamin D (Ergocalciferol) 42235 UNIT Oral Capsule Take 50,000 Units by [...] region 09/30/2023 Coronary artery disease invo lving [place] coronary artery of [place] heart without angina pectoris 09/30/2023 Pulmonary nodules [...] on file Not on file 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 on fruit grower Not on file Not on file Not [...] 08/31/2024 9:00 AM EST Office [facility] [address] [facility] [place], [place] [address] Benja Watkins MD 200 [facility] [place] [address] 09/07/2024 9:45 AM EST Pharmacy Pharmacy Hematology Oncology [facility] [address] [place] [address] [facility], [facility] Hem/Onc [address] [place] [address] 10/05/2024 12:30 PM EDT Telemedicine Care at Home [address] [place] [address] Kori Dumont PA-C [address] [place] [address] 11/26/2024 12:00 PM EDT Office Visit [facility]Note 3] [address] [place] [phone] Martin Solorio MD [address] [place] [address] 02/14/2025 8:00 AM EDT Imaging Radiology [address] [place] [address] [...] this encounter Medical Devices Implanted Type Area Piecer Up Device Identifier Shelf Expiration Date Model / Serial / Lot Cover Nilda Hole 24mm 421.528 - [id number] Implanted:Qty: 1 on 08/20/2021 by Joni Hand III, MD at [place] [facility] Right: Head SYNTHES MAXILLOFACIAL 421.528 / / Plate Y Ti Lo Db 6h 21 421.517 - [id number] Implanted:Qty: 1 on 08/20/2021 by Joni Hand III, MD at [place] [facility] Right: Head SYNTHES MAXILLOFACIAL 421.517 / / Screw Ti Lo Pro Sd 4mm 400.834 - [id number] Implanted:Qty: 10 on 08/20/2021 by Joni Hand III, MD at [place] [facility] Right: Head SYNTHES MAXILLOFACIAL 400.834 / / Cement Hydroset Injectable 5cc - [id number] Implanted:Qty: 1 on 03/03/2024 by Joni Hand III, MD at [place] [facility] Left: Head SUZANNA [id number] 09/19/2025 [id number] / / [id number] Cover Bur Hol Ti Lo 17 421.527 - [id number] Implanted:Qty: 1 on 03/03/2024 by Joni Hand III, MD at [place] [facility] Left: Head SYNTHES MAXILLOFACIAL 421.527 / / Plate Ti Lo Pro Str 2h 421.502 - [id number] Implanted:Qty: 2 on 03/03/2024 by Joni Hand III, MD at [place] [facility] Left: Head SYNTHES MAXILLOFACIAL 421.502 / / Screw 4mm Ti Low Pro Sdrill - [id number] Implanted:Qty: 7 on 03/03/2024 by Joni Hand [...] and were consensually agreed upon. Care Teams Lock Tender Chief Operator Relationship Specialty Start Date End Date Martin Solorio MD [address] [place] [address] PCP - General Family Medicine 02/20/21 documented as of this encounter
--- OUTSIDE RECORDS SUMMARY | 2024-09-03 16:18 | External Medical Summary ---
Author Name Unknown Address Unknown Organization K01:LABORATORY [facility] [place] - [address] [place] [address] Laboratory Report Ordering Provider Test Date Status TYRONE DE PAZ 08/23/2024 13:49:22 Final Observation Date Value Abnormality Reference (Units ) Status TSH 08/23/2024 13:49:22 6.56 Above high normal 0. 27-4.20 (uIU/mL) Final Performing Location LABORATORY [facility] [place] [address] [place] [address]
--- OUTSIDE RECORDS SUMMARY | 2024-09-03 16:18 | External Medical Summary | Summary of Care ---
Author Name Unknown Organization [facility] Address [address] [place] [address] Phone [phone] Care Team Providers Care Telecine Operator Name Role Phone Martin Solorio MD Primary Care Provider [phone] Reason for Visit * Reason Comments Outpatient Testing Encounter Details Date Type Department Care Team (Late st Contact Info) Description 08/23/2024 12:50 PM EST Laboratory Laboratory, [facility] 226 [place] [phone] [facility] [address] [place], [place] [phone] Encounter for long-term (current) use of medications; Malignant 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); Abnormal thyroid function test; 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 60 Tablet 08/16/19 25 Active documented as of this encounter (statuses as of 08/24/2024) Active Problems Problem Noted Date Diagnosed Date History of stroke 06/04/2024 Overview (06/04/2024): 08/22/23 MRI "There is a chronic lacunar infarction within the left thalamus." Cerebral atrophy 09/30/2023 Spinal stenosis of cervical region 09/30/2023 Coronary artery disease invo lving [place] coronary artery of [place] heart without angina pectoris 09/30/2023 Pulmonary nodules [...] file Not on file Not on file clerk Not on file Not on [...] ольга Kumar RN documented in this encounter Plan of Treatment Upcoming Encounters Date Type Department Care Team (Late st Contact Info) Description 08/31/2024 9:00 AM EST Office Visit Hematology/Oncology [facility] [address] [place] [address] Benja Watkins MD [address] [place] [address] 09/07/2024 9:45 AM EST Pharmacy Pharmacy Hematology Oncology [address] [address] [facility], [facility] Clinic Hem/Onc [facility] [place] [address] 10/05/2024 12:30 PM EDT Telemedicine Care at Home [address] [facility] [place] [phone] Kori Dumont PA-C [address] [facility] [place] [address] 11/26/2024 12:00 PM EDT [facility] [address] [facility] [place] [address] Martin Solorio MD 226 [facility] [place] [place], [place] [phone] 02/14/2025 8:00 AM EDT Imaging Radiology [address] [place] [phone] Pending Results Name Type Priority Associated Diagnoses Date /Time 25-HYDROXY VITAMIN D Lab Routine Encounter for long-term (current) use of medications 08/23/2024 1:49 PM EST COMPREHENSIVE METABOLIC PANEL Lab Routine Malignant 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) 08/23/2024 1:49 PM EST TSH WITH FREE T4 IF INDICATED Lab Routine Abnormal thyroid function test 08/23/2024 1:49 PM EST CARBAMAZEPINE LEVEL Lab Routine 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) 08/23/2024 1:49 PM EST Scheduled Procedures Name Priority Associated [...] this encounter Medical Devices Implanted Type Area Photographic Engineer Device Identifier Shelf Expiration Date Model / Serial / Lot Cover [place] Hole 24mm 421.529 - [id number] Implanted:Qty: 1 on 08/20/2021 by Joni Hand III, MD at [facility] Right: Head SYNTHES MAXILLOFACIAL 421.528 / / Plate Y Ti Lo Db 6h 21 421.245 - [id number] Implanted:Qty: 1 on 08/20/2021 by Joni Hand III, [place] [facility] [place] Head SYNTHES MAXILLOFACIAL 421.517 / / Screw Ti Lo Pro Sd 4mm 400.834 - [id number] Implanted:Qty: 10 on 08/20/2021 by Joni Hand III, [place] [facility] [place]: Head SYNTHES MAXILLOFACIAL 400.834 / / Cement Hydroset Injectable 5cc - [id number] Implanted:Qty: 1 on 03/03/2024 by Joni Hand III, [place] [facility] [place]: Head SUZANNA [id number] 09/19/2025 [id number] / / [id number] Cover Bur Hol Ti Lo 17 421.527 - [id number] Implanted:Qty: 1 on 03/03/2024 by Joni Hand III, [place] [facility] [place]: Head SYNTHES MAXILLOFACIAL 421.527 / / Plate Ti Lo Pro Str 2h 421.502 - [id number] Implanted:Qty: 2 on 03/03/2024 by Joni Hand III, MD [place] [facility] Left: Head SYNTHES MAXILLOFACIAL 421.502 / / Screw 4mm Ti Low Pro Sdrill - [id number] Implanted:Qty: 7 on 03/03/2024 by Joni Hand III, [place] [facility] [place]: Head SYNTHES MAXILLOFACIAL 400.834E / / documented as of this encounter Procedures Procedure Name Priority Date/Time Associated Diagnosis Comments DIFFERENTIAL, AUTOMATED Routine 08/23/2024 1:49 PM EST Malignant 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) CBC Routine 08/23/2024 1:49 PM EST Malignant 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) CBC Routine 08/23/2024 1:49 PM EST Malignant 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) documented in this encounter Results * (ABNORMAL) DIFFERENTIAL, AUTOMATED (08/23/2024 1:49 PM EST) WBC 8.18 4.00 - 10.80 K/uL 08/23/2024 11:40 PM EST [facility] Neutrophils % 74.3 40.0 - 75.0 % 08/23/2024 11:40 PM EST [facility] Lymphocytes % 15.5(L) 18.0 - 42.0 % 08/23/2024 11:40 PM EST [facility] Monocytes % 8.3 1.0 - 11.0 % 08/23/2024 11:40 PM EST [facility] Eosinophils % 0.9 0.0 - 6.0 % 08/23/2024 11:40 PM EST [facility] Basophils % 0.6 0.0 - 2.0 % 08/23/2024 11:40 PM EST [facility] Immature Granulocytes % 0.4 0.0 - 2.0 % 08/23/2024 11:40 PM EST [facility] Absolute Neutrophils 6.08 1.80 - 7.70 K/uL 08/23/2024 11:40 PM EST [facility] Absolute Lymphocytes 1.27 1.00 - 4.80 K/ul 08/23/2024 11:40 PM EST [facility] Absolute Monocytes 0.68 0.00 - 1.10 K/uL 08/23/2024 11:40 PM EST [facility] Absolute Eosinophils 0.07 0.00 - 0.70 K/uL 08/23/2024 11:40 PM EST [facility] Absolute Basophils 0.05 0.00 - 0.20 K/uL 08/23/2024 11:40 PM EST [facility] Absolute Immature Granulocytes 0.03 0.00 - 0.20 K/uL 08/23/2024 11:40 PM EST [facility] Blood Venous blood specimen / Unknown Venipuncture / Unknown 08/23/2024 1:49 PM EST 08/23/2024 1:49 PM EST us Martin Solorio MD LAB BLOOD ORDERABLES Final Resu lt [facility] [address] [place] [address] * (ABNORMAL) CBC (08/23/2024 1:49 PM EST) [facility] WBC 8.18 4.00 - 10.80 K/uL 08/23/2024 11:40 PM EST [facility] RBC 4.12 3.85 - 5.15 M/uL 08/23/2024 11:40 PM EST [facility] HGB 13.1 12.0 - 15.3 g/dL 08/23/2024 11:40 PM EST [facility] HCT 40.6 36.0 - 45.2 % 08/23/2024 11:40 PM EST [facility] MCV 98.5 81.5 - 97.5 fL 08/23/2024 11:40 PM EST [facility] MCH 31.8 27.0 - 34.0 pg 08/23/2024 11:40 PM EST [facility] MCHC 32.3 32.0 - 36.0 g/dL 08/23/2024 11:40 PM EST [facility] RDW 15.2 11.5 - 15.5 % 08/23/2024 11:40 PM EST [facility] PLT 469(H) 140 - 400 K/uL 08/23/2024 11:40 PM EST [facility] MPV 9.7 6.6 - 11.1 fL 08/23/2024 11:40 PM EST [facility] nRBCs 0 <=0 /100 WBCs 08/23/2024 11:40 PM EST [facility] Blood Venous blood specimen / Unknown Venipuncture / Unknown 08/23/2024 1:49 PM EST 08/23/2024 1:49 PM EST Martin Solorio MD LAB BLOOD ORDERABLES Final Resu lt Performing Organization Address City/State/[facility] Co de Phone Number [facility] [address] [place] [address] documented in this encounter Visit Diagnoses Diagnosis Encounter for long-term (current) use of medications Encounter for long-term (current) use of other medications 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 Care Teams Telecine Operator Relationship Specialty Start Date End Date Martin Solorio MD [address] [place] [address] PCP - General Family Medicine 02/20/21 documented as of this encounter
--- OUTSIDE RECORDS SUMMARY | 2024-09-03 16:18 | External Medical Summary | Summary of Care ---
Author Name Unknown Organization [facility] Address [address] [place] [address] Phone [phone] Care Team Providers Care Operations Recruiter Name Role Phone Martin Solorio MD Primary Care Provider [phone] Encounter Details Date Type Department Care Team (Late st Contact Info) Description 08/24/2024 Referral Triage Care Coordination and Integration [address] [place], [place] [phone] Syeda Villegas L, KEISHA [address] [place] [address] Allergies Active Allergy Reactions Criticality [...] EST 05/04/20 24 Active Vitamin D (Ergocalciferol) 97315 UNIT Oral Capsule Take 50,000 Units by [...] region 09/30/2023 Coronary artery disease invo lving [place] coronary artery of [place] heart without angina pectoris 09/30/2023 Pulmonary nodules [...] inactive term ACUTE SINUSITIS NOS 09/06/2006 09/08/19 Overview (09/08/2008): Resolved per Benign Acute Dxs [...] on file Not on file 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 [address] Benja Watkins MD [address] [facility] [place] [place] [address] 09/07/2024 9:45 AM EST Pharmacy Pharmacy Hematology Oncology [facility] [address] [place] [address] [facility] [place] Hem/Onc [address] [place] [address] 10/05/2024 12:30 PM EDT Telemedicine Care at Home [address] [place] [address] Kori Dumont PA-C [address] [place] [address] 11/26/2024 12:00 PM EDT [facility] [address] [place] [phone] Martin Solorio MD [address] [place] [address] 02/14/2025 8:00 AM EDT Imaging Radiology [address] [place] [address] [...] this encounter Medical Devices Implanted Type Area Ecological Economist Device Identifier Shelf Expiration Date Model / Serial / Lot Cover [place] Hole 24mm 421.528 - [id number] Implanted:Qty: 1 on 08/20/2021 by Joni Hand III, MD at [place] [facility] Right: Head SYNTHES MAXILLOFACIAL 421.528 / / Plate Y Ti Lo Db 6h 21 421.517 - [id number] Implanted:Qty: 1 on 08/20/2021 by Joni Hand III, MD at [place] [facility] Right: Head SYNTHES MAXILLOFACIAL 421.517 / / Screw Ti Lo Pro Sd 4mm 400.834 - [id number] Implanted:Qty: 10 on 08/20/2021 by Joni Hand III, MD at [place] [facility] Right: Head SYNTHES MAXILLOFACIAL 400.834 / / Cement Hydroset Injectable 5cc - [id number] Implanted:Qty: 1 on 03/03/2024 by Joni Hand III, MD at [place] [facility] Left: Head SUZANNA [id number] 09/19/2025 [id number] / / [id number] Cover Bur Hol Ti Lo 17 421.527 - [id number] Implanted:Qty: 1 on 03/03/2024 by Joni Hand III, MD at OR [facility] Left: Head SYNTHES MAXILLOFACIAL 421.527 / / Plate Ti Lo Pro Str 2h 421.502 - [id number] Implanted:Qty: 2 on 03/03/2024 by Joni Hand III, MD at [place] [facility] Left: Head SYNTHES MAXILLOFACIAL 421.502 / / Screw 4mm Ti Low Pro Sdrill - [id number] Implanted:Qty: 7 on 03/03/2024 by Joni Hand III, MD at [place] [facility] Left: Head SYNTHES MAXILLOFACIAL 400.834E / / [...] and were consensually agreed upon. Care Teams Operations Recruiter Relationship Specialty Start Date End Date Martin Solorio MD [address] [place] [address] PCP - General Family Medicine 02/20/21 documented as of this encounter
--- OUTSIDE RECORDS SUMMARY | 2024-09-03 16:18 | External Medical Summary ---
Author Name Unknown Address Unknown Organization K01:LAB[facility]ATORY [facility] [place] [address] [place] [address] Laboratory Report Ordering Provider Test Date Status ALECPINA 08/23/2024 13:49:22 Final Deficient: <20 ng/mL
Ins ufficient: 20-29 ng/mL
Recommended/Optimum:30-50 ng/mL

Vitamin D intoxication is rare. If suspicious of Vitamin D toxicity, evaluation of serum Calcium and PTH is recommended. Observation Date Value Abnormality Reference (Units ) Status 25-OH Vitamin D total 08/23/2024 13:49:22 71 >19 (ng/mL) Final Performing Location LAB[facility] [place] [address] [place] [address]
--- OUTSIDE RECORDS SUMMARY | 2024-09-03 16:18 | External Medical Summary ---
Author Name Unknown Address Unknown Organization K01:LABORATORY [facility] [place] - [address] [place] [address] Laboratory Report Ordering Provider Test Date Status TYRONE DE PAZ 08/23/2024 13:49:22 Final Observation Date Value Abnormality Reference (Units ) Status Carbamazepine 08/23/2024 13:49:22 15.2 Above high matthew l 4.0-12.0 (ug/mL) Final Performing Location [facility] - [address] [place] [address]
--- OUTSIDE RECORDS SUMMARY | 2024-09-03 16:18 | External Medical Summary | Summary of Care ---
Author Name Unknown Organization [facility] Address [address] [place] [address] Phone [phone] Care Team Providers Care Warehouse Supervisor 3Rd Shift Name Role Phone Martin Solorio MD Primary Care Provider Reason for Visit * Reason Comments Outpatient Testing Encounter Details Date Type Department Care Team (Late st Contact Info) Description 08/23/2024 12:50 PM EST Laboratory Laboratory, [facility] [address] [place] [phone] [facility] [address] [place], [place] [phone] Encounter for long-term (current) use of medications; [...] EST 05/04/20 24 Active Vitamin D (Ergocalciferol) 00244 UNIT Oral Capsule Take 50,000 Units by [...] Hematology/Oncology State Aaron Medina [address] [place] [phone] Benja Watkins MD [address] [place] [address] 09/07/2024 9:45 AM EST Pharmacy Pharmacy Hematology Oncology [address] [address] [facility], [facility] Hem/Onc [facility] [place] [address] 10/05/2024 12:30 PM EDT Telemedicine Care at Home [address] [facility] [place] [phone] Kori Dumont PA-C [address] [facility] [place] [address] 11/26/2024 12:00 PM EDT Office Visit [facility] [address] [facility] [place] [phone] Martin Solorio MD 226 [facility] [place]ian [place], [place] [phone] 02/14/2025 8:00 AM EDT Imaging Radiology [address] [place] [phone] Pending Results Name Type Priority Associated Diagnoses [...] this encounter Medical Devices Implanted Type Area Hot Braider Device Identifier Shelf Expiration Date Model / Serial / Lot Cover [place] Hole 24mm 421.527 - [id number] Implanted:Qty: 1 on 08/20/2021 by Joni Hand III, MD at [facility] Right: Head SYNTHES MAXILLOF[employer]IAL 421.528 / / Plate Y Ti Lo Db 6h 21 421.261 - [id number] Implanted:Qty: 1 on 08/20/2021 by Joni Hand III, MD at [place] [facility] Right: Head SY[employer]ES MAXILL[employer]IAL 421.517 / / Screw Ti Lo Pro Sd 4mm 400.834 - [id number] Implanted:Qty: 10 on 08/20/2021 by Joni Hand III, MD at [place] [facility] Right: Head SY[employer]ES MAXILLOF[employer]IAL 400.834 / / Cement Hydroset Injectable 5cc - [id number] Implanted:Qty: 1 on 03/03/2024 by Joni Hand III, MD at [place] [facility] Left: Head SUZANNA [id number] 09/19/2025 [id number] / / [id number] Cover Bur Hol Ti Lo 17 421.527 - [id number] Implanted:Qty: 1 on 03/03/2024 by Joni Hand III, MD at [place] [facility] Left: Head [employer]ES MAXILLOF[employer]IAL 421.527 / / Plate Ti Lo Pro Str 2h 421.502 - [id number] Implanted:Qty: 2 on 03/03/2024 by Joni Hand III, MD at [place] [facility] Left: Head SY[employer]ES MAXILL[employer]IAL 421.502 / / Screw 4mm Ti Low Pro Sdrill - [id number] Implanted:Qty: 7 on 03/03/2024 by Joni Hand III, MD at [place] [facility] Left: Head SY[employer]ES [employer]ILLOF[employer] 400.834E / [...] Final Resu lt [facility]ORY [facility] [address] [place] [address] * (ABNORMAL) CBC (08/23/2024 1:49 PM EST) [facility] WBC 8.18 4.00 - 10.80 K/uL 08/23/2024 [...] ORDERABLES Final Resu lt Performing Organization Address City/State[facility] Co de Phone Number [facility] [address] [place] [address] documented in this encounter Visit Diagnoses Diagnosis [...] were consensually agreed upon. Care Teams Warehouse Supervisor 3Rd Shift Relationship Specialty Start Date End Date Martin Solorio MD [address] [place] [address] PCP - General Family Medicine 02/20/21 documented as of this encounter
--- OUTSIDE RECORDS SUMMARY | 2024-09-03 16:18 | External Medical Summary ---
Author Name Unknown Address Unknown Organization [id number]:[facility]ATORY [facility] [place] [address] [facility] [place] [address] Laboratory Report Ordering Provider Test Date Status TYRONE DE PAZ 08/23/2024 13:49:22 Final Observation Date Value Abnormality Reference (Units ) Status SYNC LEUKOCYTES IN BLOOD BY AUTOMATED COUNT 08/23/2024 13:49:22 8.18 4.00-10.80 (K/uL) Final Segs 08/23/2024 13:49:22 74.3 40.0-75.0 (%) Final Lymphs % 08/23/2024 13:49:22 15.5 Below low normal 18.0-42.0 (%) Final Monos 08/23/2024 13:49:22 8.3 1.0-11.0 (%) Final Eosinophils 08/23/2024 13:49:22 0.9 0.0-6.0 (%) Final Basos 08/23/2024 13:49:22 0.6 0.0-2.0 (%) Final Immature Granulocyte, Percent 08/23/2024 13:49:22 0.4 0.0-2.0 (%) Final Absolute Segs 08/23/2024 13:49:22 6.08 1.80-7.70 (K/uL) Final Lymphs, absolute 08/23/2024 13:49:22 1.27 1.00-4.80 (K/ul) Final Monos, Abs 08/23/2024 13:49:22 0.68 0.00-1.10 (K/uL) Final Eos, Abs 08/23/2024 13:49:22 0.07 0.00-0.70 (K/uL) Final Basos, Abs 08/23/2024 13:49:22 0.05 0.00-0.20 (K/uL) Final Immature Granulocytes, Number 08/23/2024 13:49:22 0.03 0.00-0.20 (K/uL) Final Performing Location [facility] [address] [facility] [address]
--- OUTSIDE RECORDS SUMMARY | 2024-09-03 16:18 | External Medical Summary ---
Author Name Unknown Address Unknown Organization K01:LABORATORY [facility] [place] - [facility] [address] [place] [address] Laboratory Report Ordering Provider Test Date Status TYRONE DE PAZ 08/23/2024 13:49:22 Final Observation Date Value Abnormality Reference (Units ) Status WBC, Total 08/23/2024 13:49:22 8.18 4.00-10.80 (K/uL) Final RBC 08/23/2024 13:49:22 4.12 3.85-5.15 (M/uL) Final Hemoglobin 08/23/2024 13:49:22 13.1 12.0-15.3 (g/dL) Final HCT 08/23/2024 13:49:22 40.6 36.0-45.2 (%) Final MCV 08/23/2024 13:49:22 98.5 81.5-97.5 (fL) Final MCH 08/23/2024 13:49:22 31.8 27.0-34.0 (pg) Final MCHC 08/23/2024 13:49:22 32.3 32.0-36.0 (g/dL) Final RDW 08/23/2024 13:49:22 15.2 11.5-15.5 (%) Final Platelets 08/23/2024 13:49:22 469 Above high normal 140-400 (K/uL) Final MPV 08/23/2024 13:49:22 9.7 6.6-11.1 (fL) Final Nucleated erythrocytes/100 leukocytes [Ratio] in Blood by Automated count 08/23/2024 13:49:22 0 <=0 (/100 WBCs) Final Performing Location LABORATORY [facility] - [address] [place] [address]
--- OUTSIDE RECORDS SUMMARY | 2024-09-03 16:18 | External Medical Summary | Summary of Care ---
Author Name Unknown Organization [facility] Address [address] [place] [address] Phone [phone] Care Team Providers Care Storeperson Name Role Phone Martin Solorio MD Primary Care Provider [phone] Reason for Visit * Reason Comments Outpatient Testing Encounter Details Date Type Department Care Team (Late st Contact Info) Description 08/23/2024 12:50 PM EST Laboratory Laboratory, [facility] [address] [place] [phone] [facility] [address] [place], [place] [phone] Encounter for long-term (current) use of medications; [...] EST 05/04/20 24 Active Vitamin D (Ergocalciferol) 32414 UNIT Oral Capsule Take 50,000 Units by [...] 09/30/2023 Coronary artery disease invo lving [place] coronary artery of [place] heart without angina pectoris 09/30/2023 Pulmonary [...] on file Not on 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 [address] [facility] [place] [phone] Martin Solorio MD 226 [facility] [place] [phone] 02/14/2025 8:00 AM EDT Imaging Radiology [address] [place] [phone] [...] 09/30/2023 DISCUSS TOBACCO CESSATION (REFER TO SMARTSET #9154) 01/28/2025 01/29/2024 Mammogram 02/12/2025 02/13/2024, 01/19, 02/06/2021, [...] this encounter Medical Devices Implanted Type Area Api Architect Device Identifier Shelf Expiration Date Model / Serial / Lot Cover Nilda Hole 24mm 421.528 - [id number] Implanted:Qty: 1 on 08/20/2021 by Joni Hand III, MD at [place] [facility] Right: Head SY[employer]ES [employer]ILLOF[employer]IAL 421.528 / / Plate Y Ti Lo Db 6h 21 421.517 - [id number] Implanted:Qty: 1 on 08/20/2021 by Joni Hand III, MD at [place] [facility] Right: Head SYNTHES MAXILLOFACIAL 421.517 / / Screw Ti Lo Pro Sd 4mm 400.834 - [id number] Implanted:Qty: 10 on 08/20/2021 by Joni Hand III, MD at [place] [facility] Right: Head SYNTHES MAXILLOFACIAL 400.834 / / Cement Hydroset Injectable [facility] - [id number] Implanted:Qty: 1 on 03/03/2024 by Joni Hand III, MD at [place] [facility] Left: Head SUZANNA [id number] 09/19/2025 [id number] / / [id number] Cover Bur Hol Ti Lo 17 421.527 - [id number] Implanted:Qty: 1 on 03/03/2024 by Joni Hand III, MD at [place] [facility] Left: Head SYNTHES MAXILLOFACIAL 421.527 / / Plate Ti Lo Pro Str 2h 421.502 - [id number] Implanted:Qty: 2 on 03/03/2024 by Joni Hand III, MD at [place] [facility] Left: Head SYNTHES MAXILLOFACIAL 421.502 / / Screw 4mm Ti Low Pro Sdrill - [id number] Implanted:Qty: 7 on 03/03/2024 by Joni Hand III, MD at [place] [facility] Left: Head SYNTHES MAXILLOFACIAL 400.834E / / documented as of this encounter Procedures Procedure Name Priority Date/Time Associated Diagnosis Comments DIFFERENTIAL, AUTOMATED Routine 08/23/2024 1:49 PM EST Malignant 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) TSH WITH FREE T4 IF INDICATED Routine 08/23/2024 1:49 PM EST Abnormal thyroid function test 25-HYDROXY VITAMIN D Routine 08/23/2024 1:49 PM EST Encounter for long-term (current) use of medications COMPREHENSIVE METABOLIC PANEL Routine 08/23/2024 1:49 PM EST Malignant 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) CBC Routine 08/23/2024 1:49 PM EST Malignant 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) CARBAMAZEPINE LEVEL Routine 08/23/2024 1 :49 PM EST 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) CBC Routine 08/23/2024 1:49 PM EST Malignant 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) T4, FREE Routine 08/23/2024 1:49 PM EST Abnormal thyroid function test documented in this encounter Results * T4, FREE (08/23/2024 1:49 PM EST) T4, Free 1.3 0.9 - 1.7 ng/dL 08/24/2024 6:09 AM EST [facility] Blood Venous blood specimen / Unknown Venipuncture / Unknown 08/23/2024 1:49 PM EST 08/23/2024 1:49 PM EST us Martin Solorio MD LAB BLOOD ORDERABLES Final Resu lt [facility] [address] [place] [address] * (ABNORMAL) DIFFERENTIAL, AUTOMATED (08/23/2024 1:49 PM [...] ORDERABLES Final Resu lt [facility] [address] [place] [address] * (ABNORMAL) CBC (08/23/2024 1:49 PM EST) WBC 8.18 4.00 [...] /100 WBCs 08/23/2024 11:40 PM EST LABORATORY [facility] Blood Venous blood specimen / Unknown Venipuncture / Unknown 08/23/2024 1:49 PM EST 08/23/2024 1:49 PM EST us Martin Solorio MD LAB BLOOD ORDERABLES Final Resu lt Performing Organization Address [facility] Co de Phone Number LABORATORY [facility] [address] [place] [address] * (ABNORMAL) CARBAMAZEPINE LEVEL (08/23/2024 1:49 PM EST) carBAMazepine Level 15.2(H) 4.0 - 12.0 ug/mL 08/24/2024 6:26 AM EST LABORATORY [facility] Blood Venous blood specimen / Unknown Venipuncture / Unknown 08/23/2024 1:49 PM EST 08/23/2024 1:49 PM EST us Martin Solorio MD LAB BLOOD ORDERABLES Final Resu lt Performing Organization Address [facility] de Phone Number LABORATORY [facility] [address] [place] [address] * (ABNORMAL) TSH WITH FREE T4 IF INDICATED (08/23/2024 1:49 PM EST) TSH 6.56(H) 0.27 - 4.20 uIU/mL 08/24/2024 5:47 AM EST LABORATORY [facility] Blood Venous blood specimen / Unknown Venipuncture / Unknown 08/23/2024 1:49 PM EST 08/23/2024 1:49 PM EST us Martin Solorio MD LAB BLOOD ORDERABLES Final Resu lt Performing Organization Address [facility] de Phone Number LABORATORY [facility] [address] [place] [address] * (ABNORMAL) COMPREHENSIVE METABOLIC PANEL (08/23/2024 1:49 PM EST) BUN 14 6 - 20 mg/dL 08/24/2024 5:00 AM EST [facility] CREATININE 0.6 0.5 - 1.0 mg/dL 08/24/2024 5:00 AM EST [facility] EGFR >90 >=60 mL/min 08/24/2024 5:00 AM EST [facility] Comment:eGFR is calculated b ased on the CKD-EPI 2020 equation. SODIUM 135 135 - 146 mmol/L 08/24/2024 5:00 AM EST [facility] POTASSIUM 3.4(L) 3.5 - 5.1 mmol/L 08/24/2024 5:00 AM EST [facility] CHLORIDE 97(L) 98 - 107 mmol/L 08/24/2024 5:00 AM EST [facility] CO2 25 22 - 32 mmol/L 08/24/2024 5:00 AM EST [facility] ANION GAP 13 7 - 15 mmol/L 08/24/2024 5:00 AM EST [facility] GLUCOSE 97 70 - 120 mg/dL 08/24/2024 5:00 AM EST [facility] Albumin 3.5(L) 3.8 - 5.0 g/dL 08/24/2024 5:00 AM EST [facility] AST 26 10 - 35 U/L 08/24/2024 5:00 AM EST [facility] Alkaline Phosphatase 347(H) 35 - 130 U/L 08/24/2024 5:00 AM EST [facility] Bilirubin, Total 0.3 <=1.2 mg/dL 08/24/2024 5:00 AM EST [facility] CALCIUM 9.1 8.4 - 10.2 mg/dL 08/24/2024 5:00 AM EST [facility] Protein 6.5 6.0 - 8.3 g/dL 08/24/2024 5:00 AM EST [facility] ALT 13 10 - 35 U/L 08/24/2024 5:00 AM EST [facility] Blood Venous blood specimen / Unknown Venipuncture / Unknown 08/23/2024 1:49 PM EST 08/23/2024 1:49 PM EST us Martin Solorio MD LAB BLOOD ORDERABLES Final Resu lt [facility] [address] [place] [address] * 25-HYDROXY VITAMIN D (08/23/2024 1:49 PM EST) 25-Hydroxy Vitamin D 71 >19 ng/mL 08/24/2024 5:47 AM EST LABORATORY [facility] Blood Venous blood specimen / Unknown Venipuncture / Unknown 08/23/2024 1:49 PM EST 08/23/2024 1:49 PM EST Narrative LABORATORY [facility] - 08/24/2024 5:47 AM EST Deficient: <20 ng/mL Insufficient: 20-29 ng/mL Recommended/Optimum:30-50 ng/mL Vitamin D intoxication is rare. If suspicious of Vitamin D toxicity, evaluation of serum Calcium and PTH is recommended. us Amaya Echavarria [facility] LAB BLOOD ORDERABLES Final Result LABORATORY [facility] [address] [place] [address] documented in this encounter Visit Diagnoses Diagnosis [...] and were consensually agreed upon. Care Teams Storeperson Relationship Specialty Start Date End Date Martin Solorio MD [address] [place] [address] PCP - General Family Medicine 02/20/21 documented as of this encounter
--- OUTSIDE RECORDS SUMMARY | 2024-09-03 16:18 | External Medical Summary | Summary of Care ---
Author Name Unknown Organization [facility] Address [address] [place] [address] Phone [phone] Care Team Providers Care Curtain Roller Assembler Name Role Phone Martin Solorio MD Primary Care Provider [phone] Reason for Referral * Social Care (Within 10 days (routine)) - Authorized Specialty Diagnoses / Procedures Referred By Bere rivera Referred To Contact Journalism Teacher Diagnoses Malignant 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) Martin Solorio MD [address] [place] [address] Phone: tel: fax: Referral ID Status Reason Start Date Expiration Date Visits Requested Visits Authorized [id number] Authorized Specialty Services Required 08/23/2024 999 999 Question Answer Referral Priority Within 10 days (routine) Where should this appointment be scheduled? [facility] Role Information Security Associate Information Security Associate Referral Reason Transition of Care (SON)/High Risk for Readmission, Complex Oncology Comments Is patient being transitioned from [facility] to Complex Case Management? No * Evaluate & Treat - Unlimited Visits (Within 10 days (routine)) - Authorized Specialty Diagnoses / Procedures Referred By Bere rivera Referred To Contact HOME CARE / Home Care Diagnoses Malignant 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) Closed displaced fracture of left ilium, unspecified fracture morphology, initial encounter ([facility]) Martin Solorio MD [address] [place] [address] Phone: tel: fax: Referral ID Status Reason Start Date Expiration Date Visits Requested Visits Authorized [id number] Authorized Specialty Services Required 08/23/2024 999 999 Question Answer Referral Priority Within 10 days (routine) Where should this appointment be scheduled? [facility] Documentation of Nxvq-fs-Xsgx Encounter Addendum Patient Name: Judy Garcia I certify that this patient is under my care and that I, or a nurse practitioner or physician's automotive service assistant working with me, had a lqqw-lx-meyo encounter that meets the physician gddg-fi-skzl encounter requirements with this patient on: 08/23/24 The encounter with the patient was in whole, or in part, for the following medical condition, which is the primary reason for home health care (List medical condition): Gait dysfunction I certify that, based on my findings, the following services are medically necessary home health services: Nursing and Physical Therapy To provide the following care/treatments: (All hospitalists not following the patient after discharge should complete this section): physical therapy. Assess clinical status Primary Care Physician to follow home care plan of care after discharge: Lyndsey My clinical findings support the need for the above services because: recent discharge [facility] after falls and pelvic fracture Further, I certify that my clinical findings support that this patient is homebound (i.e. Absences from home require considerable and taxing effort and are for medical reasons or hindu services or infrequently or of short duration when for other reason) because:Pt is wheel chair bound and difficult to transport. Physician Signature: Date of Signature: Physician Printed Name: Martin Solorio MD Reason for Visit * Reason Comments Hospital Follow-Up Patient is here toda y for a hospital follow up. Patient states no concerns. 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); Abnormal thyroid function test; Low vitamin D level Allergies Active Allergy [...] EST 05/04/20 24 Active Vitamin D (Ergocalciferol) 85735 UNIT Oral Capsule Take 50,000 Units by [...] region 09/30/2023 Coronary artery disease invo lving ekuk coronary artery of ekuk heart without angina pectoris 09/30/2023 Pulmonary nodules [...] on file Not on file Not on correctional therapy teacher Not on file Not on file Not on file documented as of this encounter Last Filed Vital Signs Vital Sign Reading Time Taken Comments Blood Pressure 108/74 08/23/2024 11:41 AM EST Pulse 88 08/23/2024 11:41 AM EST Temperature 36.7 C (98 F) 08/23/2024 11: 41 AM EST Respiratory Rate 18 08/23/2024 11:4 1 AM EST Oxygen Saturation 95% 08/23/2024 11: 41 AM EST Inhaled Oxygen Concentration - - Weight 52.6 kg (115 lb 14.4 oz) 025 11:41 AM EST Height 157.5 cm (5' 2") 08/23/2024 11:4 1 AM EST Body Mass Index 21.2 08/23/2024 11:41 AM EST documented in this encounter Functional [...] ольга Marroquin RN documented in this encounter Progress Notes * Martin Solorio MD - 08/23/2024 11:50 AM EST Subjective: Judy Garcia is a 64 year old female. Chief Complaint Patient presents with Hospital Follow-Up Patient is here today for a hospital follow up. Patient states no concerns. HPI: 64-year-old seen today in follow-up after recent [facility] hospitalization from 07/06 to 07/12/2024 and then center care from 07/12 2 proximally 07/07/2025. She was admitted to [facility] with increased confusion and falls. She presented with left groin area was found to have a pubic rami fracture on the left. She also was found to have urinary tract infection. No surgical intervention was recommended for the pubic pelvic fracture. She did receive antibiotic therapy for the UTI. She then was transferred on 07/12/2024 2 center care where she concentrated on Rehabilitation. She had significant gaitdisturbance and unsteadiness with falls prior to the admission dating back to mid June. She andher both report that she still has problems with unsteady gait and increased risk falls. She does use a walker at home. She does have a wheelchair but it is used primarily for transport when she has doctor's visits. She has history of melanoma with metastatic disease of the brain. She is on antiseizure medication.Only seizure that she is aware of occurred before she had her neurosurgical removal of the the brain lesion. Having problems with sleep. Um often times sleep much through the day and then does not want asleepat nighttime. Using trazodone but not help him much. Patient Active Problem List Diagnosis Adjustment disorder [...] of cervical region Coronary artery disease involving ek[place] coronary artery of ek[place] heart without angina pectoris Pulmonary nodules Centrilobular emphysema (HCC) Left atrial enlargement Mild mitral regurgitation Mild tricuspid regurgitation Mild pulmonary valve regurgitation History of stroke Current Outpatient Medications Medication Sig Dispense Refill traZODone HCl 100 MG Oral Tablet (Desyrel) TAKE 1 & 1/2 (ONE & ONE-HALF) TABLETS BY MOUTH AT BEDTIME 45 Tablet 5 Atorvastatin Calcium 20 MG Oral Tablet (Lipitor) [...] EVENING LORazepam 0.5 MG Oral Tablet (Ativan) PARoxetine HCl 40 MG Oral Tablet (pAXil) [...] 1 capsule before bedtime. 120 Capsule 2 Vitamin D (Ergocalciferol) 38044 UNIT Oral Capsule Take 50,000 Units by mouth once a week. For 8 weeks 8 Capsule 0 Acetaminophen 325 MG Oral Tablet (Tylenol) Take 2 Tablets by mouth. Levothyroxine Sodium 175 MCG Oral Tablet (Levoxyl) Take 1 Tablet by mouth daily first thing in the morning. (at least 30 min prior to breakfast or other meds) 90 Tablet 1 Losartan Potassium 50 MG Oral Tablet (Cozaar) TAKE 1 TABLET BY MOUTH IN THE MORNING 90 Tablet 2 traMADol HCl 50 MG Oral Tablet (Ultram) Take 1 Tablet by mouth 3 times a day as needed for Pain, Moderate. 60 Tablet 0 No current facility-administered medications for this visit. Review of patient's allergies indicates: Allergen Reactions Erythromycin seizures Objective: BP 108/74 (BP Site: Left Arm, BP Position: Sitting, BP Cuff Size: Regular) | Pulse 88 | Temp 98 F(36.7 C) (Tympanic) | Resp 18 | Ht 5' 2" (1.575 m) | Wt 115 lb 14.4 oz (52.6 kg) | SpO2 95% | BMI21.20 kg/m | BSA 1.52 m Physical Exam: CONST: alert, pleasant, no acute distress HEAD: normocephalic, atraumatic NECK: supple, soft, no adenopathy EARS: canals normal, TMs normal NARES: clear Eyes - PERRLA, EOM'I OROPHARYNX: clear, no [...] evidence of paranoia, thought is non-tangential. SKIN: There multi skin lesions especially or extremities that appear likely to be related excoriation. I do not see any that are actively infective but Um or several that are red right at the spot. ASSESSMENT/PLAN: Malignant 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) (Primary) - HOME HEALTH REFERRAL OP-I do not know exactly what happened but she has not seen home health since discharge from center care. I put in an order in hopes that home health could continue to help to assess her clinical status and review medications and also physical therapy Um to help her walking in her own home. Refer for complex case manage med a Syme. Check comprehensive metabolic panel as well as CBC with diff and thyroid function with TSH Closed displaced fracture of left ilium, unspecified fracture morphology, initial encounter ([facility])-activity/ambulation will be limited depending on her amount of discomfort - HOME HEALTH REFERRAL OP Sleep disturbance-I offer to prescribe Remeron 15 mg at bedtime. Would prefer that compared to a benzodiazepine Um as the benzodiazepine would increase her risk of falls. Right now she is going to work with her trying to stay awake during the daytime and using just the trazodone at nighttime. Martin Solorio MD documented in this encounter Nursing Notes * Iveth Hopkins LPN - 08/23/2024 11:43 AM EST The patient has been properly identified by confirmation of name and date of . Chief Complaint Patient presents with Hospital Follow-Up Patient is here today for a hospital follow up. Patient states no concerns. documented in this encounter Plan of Treatment Upcoming Encounters Date Type Department Care Team (Late st Contact Info) Description 08/31/2024 9:00 AM EST Office Visit Hematology/On[facility] [address] [place] [address] Benja Watkins MD [address] [place] [address] 09/07/2024 9:45 AM EST Pharmacy Pharmacy Hematology Oncology [address] [address] [facility] [place] [facility] Hem/Onc [address] [place] [address] 10/05/2024 12:30 PM EDT Telemedicine Care at Home [address] [place] [address] Kori Dumont PA-C [address] [place] [address] 11/26/2024 12:00 PM EDT Office Visit [facility] [address] [place] [address] Martin Solorio MD [address] [place] [address] 02/14/2025 8:00 AM EDT Imaging Radiology [address] [place] [phone] Scheduled Procedures Name Priority Associated Diagnoses Date/Ti me COLONOSCOPY FLEXIBLE PROXIMA L DIAGNOSTIC Recall Family history of colon cancer Scheduled Referrals Name Type Priority Associated Diagnoses Orde r Schedule HOME HEALTH REFERRAL OP Referral Within 10 days (routine) Malignant 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) Closed displaced fracture of left ilium, unspecified fracture morphology, initial encounter (HCC) Ordered: 08/23/2024 POPULATION HEALTH REFERRAL OP Referral Within 10 days (routine) Malignant 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) Ordered: 08/23/2024 Health Maintenance Due Date Last Done Comments [...] this encounter Medical Devices Implanted Type Area Police Service Technician Device Identifier Shelf Expiration Date Model / Serial / Lot Cover [place] Hole 24mm 421.522 - [id number] Implanted:Qty: 1 on 08/20/2021 by Joni Hand III, MD at [place] [facility] [place] Right: Head SYNTHES MAXILLOFACIAL 421.528 / / Plate Y Ti Lo Db 6h 21 421.517 - [id number] Implanted:Qty: 1 on 08/20/2021 by Joni Hand III, MD at [place] [facility] [place] Right: Head SYNTHES MAXILLOFACIAL 421.517 / / Screw Ti Lo Pro Sd 4mm 400.834 - [id number] Implanted:Qty: 10 on 08/20/2021 by Joni Hand III, MD at [place] [facility] [place] Right: Head SYNTHES MAXILLOFACIAL 400.834 / / Cement Hydroset Injectable 5cc - [id number] Implanted:Qty: 1 on 03/03/2024 by Joni Hand III, MD at [place] [facility] [place] Left: Head SUZANNA [id number] 09/19/2025 [id number] / / [id number] Cover Bur Hol Ti Lo 17 421.527 - [id number] Implanted:Qty: 1 on 03/03/2024 by Joni Hand III, MD at [place] [facility] [place] Left: Head SYNTHES MAXILLOFACIAL 421.527 / / Plate Ti Lo Pro Str 2h 421.502 - [id number] Implanted:Qty: 2 on 03/03/2024 by Joni Hand III, MD at [place] [facility] [place] Left: Head SYNTHES MAXILLOFACIAL 421.502 / / Screw 4mm Ti Low Pro Sdrill - [id number] Implanted:Qty: 7 on 03/03/2024 by Joni Hand III, MD at [place] [facility] [place] Left: Head SYNTHES MAXILLOFACIAL 400.834E / / documented as of this encounter Results * (ABNORMAL) CARBAMAZEPINE LEVEL (08/23/2024 1:49 PM EST) carBAMazepine Level 15.2(H) 4.0 - 12.0 ug/mL 08/24/2024 6:26 AM EST LABORATORY [facility] [place] Blood Venous blood specimen / Unknown Venipuncture / Unknown 08/23/2024 1:49 PM EST 08/23/2024 1:49 PM EST us Martin Solroio MD LAB BLOOD ORDERABLES Final Resu lt LABORATORY [facility] [place] [place] [address] [place] [address] * (ABNORMAL) TSH WITH FREE T4 IF INDICATED (08/23/2024 1:49 PM EST) TSH 6.56(H) 0.27 - 4.20 uIU/mL 08/24/2024 5:47 AM EST LABORATORY [facility] Blood Venous blood specimen / Unknown Venipuncture / Unknown 08/23/2024 1:49 PM EST 08/23/2024 1:49 PM EST us Martin Solorio MD LAB BLOOD ORDERABLES Final Resu lt LABORATORY [facility] [place] [address] [place] [address] * (ABNORMAL) COMPREHENSIVE METABOLIC PANEL (08/23/2024 1:49 [...] Final Resu lt LABORATORY [facility] [address] [place] [address] documented in this encounter Visit Diagnoses Diagnosis Malignant 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)- Primary Secondary malignant neoplasm of brain and spinal cord Closed displaced fracture of left ilium, unspecified fracture morphology, initial encounter (HCC) 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 Care Teams Curtain Roller Assembler Relationship Specialty Start Date End Date Martin Solorio MD [address] [facility] [address] [place] [address] PCP - General Family Medicine 02/20/21 documented as of this encounter
--- OUTSIDE RECORDS SUMMARY | 2024-09-03 16:19 | External Medical Summary | Summary of Care ---
Author Name Unknown Organization [facility] Address [address] [facility] [address] Phone [phone] Care Team Providers Care Cyber Incident Handler Name Role Phone Martin Solorio MD Primary Care Provider Reason for Visit * Reason Onset Date Comments Home Health 08/12/2024 Encounter Details Date Type Department Care Team (Late st Contact Info) Description 08/12/2024 Telephone [facility] [address] [facility] [place] [address] Martin Solorio MD [address] [facility] [address] Home Health Allergies Active Allergy Reactions Criticality Noted Date Comments Erythromycin 08/15/1997 seizures documented as of this encounter (statuses as of 08/12/2024) Medications traZODone HCl 100 MG Oral Tablet [...] EST 05/04/20 24 Active Vitamin D (Ergocalciferol) 01140 UNIT Oral Capsule Take 50,000 Units by mouth once a week. For 8 weeks 8 Capsule 05/19/20 24 Active Additional Information Patient not taking.Reported on 08/10/2024 Acetaminophen 325 MG Oral Tablet (Tylenol) Take 2 Tablets by mouth. 04/27/20 24 Active traMADol HCl 50 MG Oral [...] MORNING 90 Tablet 2 08/04/19 25 Active documented as of this encounter (statuses as of 08/12/2024) Active Problems Problem Noted Date Diagnosed Date History of stroke 06/04/2024 Overview (06/04/2024): 08/22/23 MRI "There is a chronic lacunar infarction within the left thalamus." Cerebral atrophy 09/30/2023 Spinal stenosis of cervical region 09/30/2023 Coronary artery disease invo lving [place] coronary artery of [place] heart without angina pectoris 09/30/2023 Pulmonary nodules [...] as of this encounter (statuses as of 08/12/2024) Resolved Problems Problem Noted Date Diagnosed Date [...] as of this encounter (statuses as of 08/12/2024) Immunizations Name Administration Dates Next Due COVID-19, [...] Miscellaneous Notes * Telephone Encounter - Yue Rodriguez LPN - 08/12/2024 9:21 AM EST FARIHA Chen calling from [facility]. Per patient request, she has family in [facility] and would like to change start of care date to 08/17/2024. Advised that order will be signed by Martin Solorio MD and to fax to the office for signature. * Telephone Encounter - Melva Vila OSA - 08/12/2024 9:20 AM EST Reason for patient's call: April with [facility] Caller was transferred to Yue at the nurse line. documented in this encounter Plan of Treatment Upcoming Encounters Date Type Department Care Team (Late st Contact Info) Description 08/13/2024 11:20 AM EST [facility] [address] [facility] [address] [place] [phone] Martin Solorio MD [address] [facility] [place] [address] 08/31/2024 9:00 AM EST Office Visit Hematology/Oncology [facility] [address] [place] [address] Benja Watkins MD [address] [facility] [place] [address] 09/07/2024 9:45 AM EST Pharmacy Pharmacy Hematology Oncology [facility] [address] [place] [address] [facility] Clinic Hem/Onc [address] [place] [address] 10/05/2024 12:30 PM EDT Telemedicine Care at Home [address], [place] [phone] Kori Dumont PA-C [address] [place], [place] [id number] 02/14/2025 8:00 AM EDT Imaging Radiology [address] [place] [address] [...] this encounter Medical Devices Implanted Type Area Vice President Of Product Marketing Device Identifier Shelf Expiration Date Model / Serial / Lot Cover [place] Hole 24mm 421.528 - [id number] Implanted:Qty: 1 on 08/20/2021 by Joni Hand III, MD at [place] [facility] [place] Right: Head SYNTHES MAXILLOFACIAL 421.528 / / Plate Y Ti Lo Db 6h 21 421.517 - [id number] Implanted:Qty: 1 on 08/20/2021 by Joni Hand III, MD at [place] [facility] [place] Right: Head SYNTHES MAXILLOFACIAL 421.517 / / Screw Ti Lo Pro Sd 4mm 400.834 - [id number] Implanted:Qty: 10 on 08/20/2021 by Joni Hand III, MD at [place] [facility] [place] Right: Head SYNTHES MAXILLOFACIAL 400.834 / / Cement Hydroset Injectable 5cc - [id number] Implanted:Qty: 1 on 03/03/2024 by Joni Hand III, MD at [place] [facility] [place] Left: Head SUZANNA [id number] 09/19/2025 [id number] / / [id number] Cover Bur Hol Ti Lo 17 421.527 - [id number] Implanted:Qty: 1 on 03/03/2024 by Joni Hand III, MD at [place] [facility] [place] Left: Head SYNTHES MAXILLOFACIAL 421.527 / / Plate Ti Lo Pro Str 2h 421.502 - [id number] Implanted:Qty: 2 on 03/03/2024 by Joni Hand III, MD at [place] [facility] [place] Left: Head SYNTHES MAXILLOFACIAL 421.502 / / Screw 4mm Ti Low Pro Sdrill - [id number] Implanted:Qty: 7 on 03/03/2024 by Joni Hand III, MD at [place] [facility] [place] Left: Head SYNTHES [...] and were consensually agreed upon. Care Teams Cyber Incident Handler Relationship Specialty Start Date End Date Martin Solorio MD PCP - General Family Medicine 02/20/21 documented as of this encounter
--- OUTSIDE RECORDS SUMMARY | 2024-09-03 16:19 | External Medical Summary | Summary of Care ---
Author Name Unknown Organization [facility] Address [address] [place] [address] Phone [phone] Care Team Providers Care Roll Wrapper Name Role Phone Martin Solorio MD Primary Care Provider [phone] Reason for Visit * Reason Onset Date Comments [facility]: Enrollment 08/05/2024 Encounter Details Date Type Department Care Team (Late st Contact Info) Description 08/05/2024 Telephone [facility] [address] [place] [address] Venkatesh Wilburn OSA [address] [place] [address] [facility]: Enrollment Allergies Active Allergy Reactions Criticality Noted Date Comments Erythromycin 08/15/1997 seizures documented as of this encounter (statuses as of 08/05/2024) Medications MULTIVITAMINS PO TABS Take 1 Tablet [...] EST 05/04/20 24 Active Vitamin D (Ergocalciferol) 83287 UNIT Oral Capsule Take 50,000 Units by [...] as of this encounter (statuses as of 08/05/2024) Active Problems Problem Noted Date Diagnosed Date History of stroke 06/04/2024 Overview (06/04/2024): 08/22/23 MRI "There is a chronic lacunar infarction within the left thalamus." Cerebral atrophy 09/30/2023 Spinal stenosis of cervical region 09/30/2023 Coronary artery disease invo lving [place] coronary artery of [place] heart without angina pectoris 09/30/2023 Pulmonary nodules [...] as of this encounter (statuses as of 08/05/2024) Resolved Problems Problem Noted Date Diagnosed Date [...] as of this encounter (statuses as of 08/05/2024) Immunizations Name Administration Dates Next Due COVID-19, [...] on file Not on file Not on coding file clerk Not on file Not on [...] encounter Miscellaneous Notes * Telephone Encounter - Venkatesh Wilburn OSA - 08/05/2024 4:26 PM EST [facility] Enrollment 08/05 - attempt 1 - left a message documented in this encounter Plan of Treatment Upcoming Encounters Date Type Department Care Team (Late st Contact Info) Description 08/10/2024 9:45 AM EST Pharmacy Pharmacy Hematology Oncology [facility] [address] [place] [address] [facility], [facility] Hem[facility]Onc [address] [place] [address] 08/12/2024 10:20 AM EST Office [facility] [address] [place] [phone] Martin Solorio MD [address] [place] [address] 08/31/2024 9:00 AM EST Office Visit Hematology/Oncology [facility] 200 [facility] [place] [phone] Benja Watkins MD [address] [place] [address] 10/05/2024 12:30 PM EDT Telemedicine Care at Home [address] [place] [address] Kori Dumont PA-C [address] [place] [address] 02/14/2025 8:00 AM EDT Imaging Radiology [address] [place] [address] Scheduled Procedures Name Priority [...] this encounter Medical Devices Implanted Type Area Incinerator Operator Device Identifier Shelf Expiration Date Model / Serial / Lot Cover Nilda Hole 24mm 421.528 - [id number] Implanted:Qty: 1 on 08/20/2021 by Joni Hand III, MD at [place] [facility] Right: Head SYNTHES MAXILLOFACIAL 421.528 / / Plate Y Ti Lo Db 6h 21 421.517 - [id number] Implanted:Qty: 1 on 08/20/2021 by Joni Hand III, MD at [place] [facility] Right: Head SYNTHES MAXILLOFACIAL 421.517 / / Screw Ti Lo Pro Sd 4mm 400.834 - [id number] Implanted:Qty: 10 on 08/20/2021 by Joni Hand III, MD at [place] [facility] Right: Head SYNTHES MAXILLOFACIAL 400.834 / / Cement Hydroset Injectable 5cc - [id number] Implanted:Qty: 1 on 03/03/2024 by Joni Hand III, MD at [place] [facility] Left: Head SUZANNA [id number] 09/19/2025 [id number] / / [id number] Cover Bur Hol Ti Lo 17 421.527 - [id number] Implanted:Qty: 1 on 03/03/2024 by Joni Hand III, MD at [place] [facility] Left: Head SYNTHES MAXILLOFACIAL 421.527 / / Plate Ti Lo Pro Str 2h 421.502 - [id number] Implanted:Qty: 2 on 03/03/2024 by Joni Hand III, MD at [place] [facility] Left: Head SYNTHES MAXILLOFACIAL 421.502 / / Screw 4mm Ti Low Pro Sdrill - [id number] Implanted:Qty: 7 on 03/03/2024 by Joni Hand [...] and were consensually agreed upon. Care Teams Roll Wrapper Relationship Specialty Start Date End Date Martin Solorio MD PCP - General Family Medicine 02/20/21 documented as of this encounter
--- OUTSIDE RECORDS SUMMARY | 2024-09-03 16:19 | External Medical Summary | Summary of Care ---
Author Name Unknown Organization [facility] Address [address] [place] [address] Phone [phone] Care Team Providers Care Machine Hoop Maker Name Role Phone Martin Solorio MD Primary Care Provider [phone] Reason for Visit * Reason Comments Medication Management Encounter Details Date Type Department Care Team (Late st Contact Info) Description 08/10/2024 9:45 [facility] H[facility]ology Oncology [facility] [address] [place] [address] [facility], [facility] Hem/Onc [address] [place], [place] [id number] Malignant melanoma of left lower extremity (HCC)* Allergies Active Allergy Reactions Criticality Noted Date Comments Erythromycin 08/15/1997 seizures documented as of this encounter (statuses as of 08/10/2024) Medications traZODone HCl 100 MG Oral Tablet [...] EST 05/04/20 24 Active Vitamin D (Ergocalciferol) 77905 UNIT Oral Capsule Take 50,000 Units by [...] as of this encounter (statuses as of 08/10/2024) Active Problems Problem Noted Date Diagnosed Date History of stroke 06/04/2024 Overview (06/04/2024): 08/22/23 MRI "There is a chronic lacunar infarction within the left thalamus." Cerebral atrophy 09/30/2023 Spinal stenosis of cervical region 09/30/2023 Coronary artery disease invo lving [place] coronary artery of [place] heart without angina pectoris 09/30/2023 Pulmonary nodules [...] as of this encounter (statuses as of 08/10/2024) Resolved Problems Problem Noted Date Diagnosed Date [...] as of this encounter (statuses as of 08/10/2024) Immunizations Name Administration Dates Next Due COVID-19, [...] on file Not on file Not on circular saw filer Not on file Not on file [...] this encounter Progress Notes * Geri Acevedo, [facility] - 08/10/2024 11:00 AM EST MEDICATION THERAPY MANAGEMENT DABRAFENIB & TRAMETINIB TREATMENT PROGRESS NOTE Judy Garcia [id number] Patient Phone Numbers : Kwame Communication: Left message requesting return call to assess toleration to therapy Treatment: Medication: Dabrafenib // Trametinib Indication: metastatic melanoma Dose: 75 mg BID // 1.5 mg daily ( 02/2022) Administration: empty stomach (1 hour before or 2 hours after a meal) Start Date: 10/04/21 Primary Imaging Technologist/Oncologist: Dr. Noman Watkins Supportive Care Meds: Ondansetron [...] to fill dabrafenib and trametinib Admitted to [facility] 03/01/24-03/04/24 for L frontal craniotomy - dabrafenib/trametinib continued during admission Admitted to [facility] 04/11/24-04/28/24 for left hip fracture and discharged from [facility] 05/13/24 Per PCP OV 06/07/24, short term memory worsening Per TE 08/09/24, pt admitted to [facility] 07/06/24-07/12/24 and [facility] to [facility]. Pt discharged from rehab 08/07/24 and recommended to follow up with neurosurgery to assess recent brain MRI - possible surgical change versus recurrent/residual tumor change Changes to medication list since last visit? No Assessment and Plan: LM requesting call back to assess pt status and if she is continuing treatment MTM to follow up after OV to assess treatment plan Assessment of compliance: N/A Assessment of adverse effects attributed to drug therapy: N/A Dose adjustment needed based on lab or adverse drug reaction? No Follow up: 3 weeks OV; 4 weeks MTM Geri Acevedo, PharmD, OP Clinical Pharmacist, [facility] Oral Chemotherapy [facility] 08/10/2024, 3:35 PM Suggested lab monitoring: LVEF (via ECHO [...] Description 08/13/2024 11:20 AM EST Office Visit [facility] [address] [place] [address] Martin Solorio MD [address] [place] [address] 08/31/2024 9:00 AM EST Office Visit Hematology/Oncology [facility] [place] 200 [place] [phone] Benja Watkins MD [address] [place] [address] 09/07/2024 9:45 AM EST Pharmacy Pharmacy Hematology Oncology [facility] [address] [place] [address] [facility], [facility] Hem/Onc [address] [place] [address] 10/05/2024 12:30 PM EDT Telemedicine Care at Home [address] [place] [address] Kori Dumont PA-C [address] [facility] [place] [address] 02/14/2025 8:00 AM EDT Imaging Radiology [facility] [address] [facility] [place] [address] [place] [address] Scheduled [...] this encounter Medical Devices Implanted Type Area Management Accounts Manager Device Identifier Shelf Expiration Date Model / Serial / Lot Cover [place] Hole 24mm 421.528 - [id number] Implanted:Qty: 1 on 08/20/2021 by Joni Hand III, MD at OR [facility] Right: Head SYNTHES MAXILLOFACIAL 421.528 / / Plate Y Ti Lo Db 6h 21 421.517 - [id number] Implanted:Qty: 1 on 08/20/2021 by Joni Hand III, MD at OR [facility] Right: Head SYNTHES MAXILLOFACIAL 421.517 / / Screw Ti Lo Pro Sd 4mm 400.834 - [id number] Implanted:Qty: 10 on 08/20/2021 by Joni Hand III, MD at OR [facility] Right: Head SYNTHES MAXILLOFACIAL 400.834 / / Cement Hydroset Injectable 5cc - [id number] Implanted:Qty: 1 on 03/03/2024 by Joni Hand III, MD at OR [facility] Left: Head SUZANNA [id number] 09/19/2025 [id number] / / [id number] Cover Bur Hol Ti Lo 17 421.527 - [id number] Implanted:Qty: 1 on 03/03/2024 by Joni Hand III, MD at OR [facility] Left: Head SYNTHES MAXILLOFACIAL 421.527 / / Plate Ti Lo Pro Str 2h 421.502 - [id number] Implanted:Qty: 2 on 03/03/2024 by Joni Hand III, MD at OR [facility] Left: Head SYNTHES MAXILLOFACIAL 421.502 / / Screw 4mm Ti Low Pro Sdrill - [id number] Implanted:Qty: 7 on 03/03/2024 by Joni Hand III, MD at OR [facility] Left: Head SYNTHES MAXILLOFACIAL 400.834E / / [...] and were consensually agreed upon. Care Teams Machine Hoop Maker Relationship Specialty Start Date End Date Martin Solorio MD PCP - General Family Medicine 02/20/21 documented as of this encounter
--- OUTSIDE RECORDS SUMMARY | 2024-09-03 16:19 | External Medical Summary | Summary of Care ---
Author Name Unknown Organization [facility] Address [address] [place] [address] Phone [phone] Care Team Providers Care Warehouse Shipping Associate Name Role Phone Martin Solorio MD Primary Care Provider [phone] Reason for Visit * Reason Onset Date Comments Eye Pain 08/09/2024 Encounter Details Date Type Department Care Team (Late st Contact Info) Description 08/09/2024 Telephone [facility] [address] [place] [address] Malcolm Dominguez, KEISHA [address] [place] [address] Eye Pain (//) Allergies Active Allergy Reactions Criticality Noted Date Comments Erythromycin 08/15/1997 seizures documented as of this encounter (statuses as of 08/09/2024) Medications MULTIVITAMINS PO TABS Take 1 Tablet [...] EST 05/04/20 24 Active Vitamin D (Ergocalciferol) 41861 UNIT Oral Capsule Take 50,000 Units by [...] as of this encounter (statuses as of 08/09/2024) Active Problems Problem Noted Date Diagnosed Date History of stroke 06/04/2024 Overview (06/04/2024): 08/22/23 MRI "There is a chronic lacunar infarction within the left thalamus." Cerebral atrophy 09/30/2023 Spinal stenosis of cervical region 09/30/2023 Coronary artery disease invo lving [place] coronary artery of [place] heart without angina pectoris 09/30/2023 Pulmonary nodules [...] as of this encounter (statuses as of 08/09/2024) Resolved Problems Problem Noted Date Diagnosed Date [...] as of this encounter (statuses as of 08/09/2024) Immunizations Name Administration Dates Next Due COVID-19, [...] 0.5 20 Smokeless Tobacco: Never Comments:quit 1995;Pt startjurgen d smoking last year. quit on 09/01/2007, [...] Assessment Author Yes 03/01/2024 1:15 PM EDT Stcay, Do ольга Jones RN * Because of [...] encounter Miscellaneous Notes * Telephone Encounter - Malcolm Dominguez OSA - 08/09/2024 8:59 AM EST Pt declined Ga, episode closed documented in this encounter Plan of Treatment Upcoming Encounters Date Type Department Care Team (Late st Contact Info) Description 08/10/2024 9:45 AM EST Pharmacy Pharmacy Hematology Oncology [facility] [address] [place] [address] [facility] Hem/Onc [address] [place] [address] 08/12/2024 10:20 AM EST Office Visit [facility] [address] [place] [phone] Martin Solorio MD [address] [place] [address] 08/31/2024 9:00 AM EST Office Visit Hematology/Oncology [facility] 200 [facility] [place] [phone] Benja Watkins MD [address] [facility] [place] [address] 10/05/2024 12:30 PM EDT Telemedicine Care at Home [address] [place] [address] Kori Dumont PA-C [address] [place] [address] 02/14/2025 8:00 AM EDT Imaging Radiology [address] [place] [phone] Scheduled Procedures Name Priority Associated Diagnoses Date/Ti [...] encounter Medical Devices Implanted Type Area Plastic Surgery Assistant Device Identifier Shelf Expiration Date Model / Serial / Lot Cover Nilda Hole 24mm 421.528 - [id number] Implanted:Qty: 1 on 08/20/2021 by Joni Hand III, MD at [facility] Right: Head SYNTHES MAXILLOFACIAL 421.528 / / Plate Y Ti Lo Db 6h 21 421.517 - [id number] Implanted:Qty: 1 on 08/20/2021 by Joni Hand III, MD at OR [facility] Right: Head SYNTHES MAXILLOFACIAL 421.517 / / Screw Ti Lo Pro Sd 4mm 400.834 - [id number] Implanted:Qty: 10 on 08/20/2021 by Joni Hand III, MD at OR [facility] Right: Head SYNTHES MAXILLOFACIAL 400.834 / / Cement Hydroset Injectable 5cc - [id number] Implanted:Qty: 1 on 03/03/2024 by Joni Hand III, MD at OR [facility] Left: Head SUZANNA [id number] 09/19/2025 [id number] / / [id number] Cover Bur Hol Ti Lo 17 421.527 - [id number] Implanted:Qty: 1 on 03/03/2024 by Joni Hand III, MD at OR [facility] Left: Head SYNTHES MAXILLOFACIAL 421.527 / / Plate Ti Lo Pro Str 2h 421.502 - [id number] Implanted:Qty: 2 on 03/03/2024 by Joni Hand III, MD at OR [facility] Left: Head SYNTHES MAXILLOFACIAL 421.502 / / Screw 4mm Ti Low Pro Sdrill - [id number] Implanted:Qty: 7 on 03/03/2024 by Joni Hand III, MD at OR [facility] Left: Head SYNTHES MAXILLOFACIAL 400.834E / / [...] were consensually agreed upon. Care Teams Warehouse Shipping Associate Relationship Specialty Start Date End Date Martin Solorio MD PCP - General Family Medicine 02/20/21 documented as of this encounter
--- OUTSIDE RECORDS SUMMARY | 2024-09-03 16:19 | External Medical Summary | Summary of Care ---
Author Name Unknown Organization [facility] Address [address] [place] [address] Phone [phone] Care Team Providers Care Belt Glass Sander Name Role Phone Martin Solorio MD Primary Care Provider [phone] Encounter Details Date Type Department Care Team (Late st Contact Info) Description 08/09/2024 Population Health External Data Unspecified Department Allergies [...] EST 05/04/20 24 Active Vitamin D (Ergocalciferol) 73185 UNIT Oral Capsule Take 50,000 Units by [...] breakfast or other meds) 90 Tablet 1 12/16/20 24 Active Losartan Potassium 50 MG Oral [...] region 09/30/2023 Coronary artery disease invo lving [place] coronary artery of [place] heart without angina pectoris 09/30/2023 Pulmonary nodules [...] on file Not on file Not on bottle washer machine Not on file Not on file Not [...] 03/01/2024 1:15 PM EDT Stacy, Do ольга oJnes RN * Do you have difficulty dressing [...] AM EST Pharmacy Pharmacy Hematology Oncology [facility] [address] [place] [address] [facility] Hem[facility]Onc [address] [place] [address] 08/13/2024 11:20 AM EST [facility] [address] [place] [phone] Martin Solorio MD [address] [place] [address] 08/31/2024 9:00 AM EST Office Visit Hematology/Oncology [facility] [address] [place] [address] Benja Watkins MD 200 [facility] [place] [address] 10/05/2024 12:30 PM EDT Telemedicine Care at Home [address] [place] [address] Kori Dumont PA-C [address] [place] [address] 02/14/2025 8:00 AM EDT Imaging Radiology [facility] 1st [facility] [address] [place] [phone] Scheduled Procedures Name Priority Associated Diagnoses Date/Ti [...] 09/30/2023 DISCUSS TOBACCO CESSATION (REFER TO SMARTSET #[id number]) 01/28/2025 01/29/2024 TSH 01/28/2025 01/29/2024, 07/21, 07/25/2023, [...] this encounter Medical Devices Implanted Type Area Physical Therapy Asst Device Identifier Shelf Expiration Date Model / Serial / Lot Cover Nilda Hole 24mm 421.528 - [id number] Implanted:Qty: 1 on 08/20/2021 by Joni Hand III, MD at [place] [facility] Right: Head SYNTHES MAXILLOFACIAL 421.528 / / Plate Y Ti Lo Db 6h 21 421.517 - [id number] Implanted:Qty: 1 on 08/20/2021 by Joni Hand III, MD at [place] [facility] Right: Head SYNTHES MAXILLOFACIAL 421.517 / / Screw Ti Lo Pro Sd 4mm 400.834 - [id number] Implanted:Qty: 10 on 08/20/2021 by Joni Hand III, MD at [place] [facility] Right: Head SYNTHES MAXILLOFACIAL 400.834 / / Cement Hydroset Injectable [facility] - [id number] Implanted:Qty: 1 on 03/03/2024 by Joni Hand III, MD at [place] [facility] Left: Head SUZANNA [id number] 09/19/2025 [id number] / / [id number] Cover Bur Hol Ti Lo 17 421.527 - [id number] Implanted:Qty: 1 on 03/03/2024 by Joni Hand III, MD at [place] [facility] Left: Head SYNTHES MAXILLOFACIAL 421.527 / / Plate Ti Lo Pro Str 2h 421.502 - [id number] Implanted:Qty: 2 on 03/03/2024 by Joni Hand III, MD at [place] [facility] Left: Head SYNTHES MAXILLOFACIAL 421.502 / / Screw 4mm Ti Low Pro Sdrill - [id number] Implanted:Qty: 7 on 03/03/2024 by Joni Hand III, MD at [place] [facility] Left: Head SYNTHES [...] and were consensually agreed upon. Care Teams Belt Glass Sander Relationship Specialty Start Date End Date Martin Solorio MD PCP - General Family Medicine 02/20/21 documented as of this encounter
--- OUTSIDE RECORDS SUMMARY | 2024-09-03 16:19 | External Medical Summary | Summary of Care ---
Author Name Unknown Organization [facility] Address [address] [place] [address] Phone [phone] Care Team Providers Care Metal Base Blocker Name Role Phone Martin Solorio MD Primary Care Provider [phone] Reason for Visit * Reason Onset Date Comments Appointment 08/06/2024 Encounter Details Date Type Department Care Team (Late st Contact Info) Description 08/06/2024 Telephone [facility] [address] [place] [address] Malcolm Dominguez, KEISHA [address] [place] [address] Appointment (//) Allergies Active Allergy Reactions Criticality Noted Date Comments Erythromycin 08/15/1997 seizures documented as of this encounter (statuses as of 08/06/2024) Medications MULTIVITAMINS PO TABS Take 1 Tablet [...] EST 05/04/20 24 Active Vitamin D (Ergocalciferol) 82657 UNIT Oral Capsule Take 50,000 Units by [...] as of this encounter (statuses as of 08/06/2024) Active Problems Problem Noted Date Diagnosed Date [...] as of this encounter (statuses as of 08/06/2024) Resolved Problems Problem Noted Date Diagnosed Date [...] as of this encounter (statuses as of 08/06/2024) Immunizations Name Administration Dates Next Due COVID-19, [...] Not on file Not on automatic profile shaper operator Not on file Not on file [...] Telephone Encounter - Malcolm Dominguez OSA - 08/06/2024 9:48 AM EST 08/06 - attempt 2 - left a message discharging Monday 08/07 from SN[facility], please reach out on Wednesday 08/09 documented in this encounter Plan of Treatment Upcoming Encounters Date Type Department Care Team (Late st Contact Info) Description 08/10/2024 9:45 AM EST Pharmacy Pharmacy Hematology Oncology [facility] [address] [place] [address] [facility] Hem/Onc [address] [place] [address] 08/12/2024 10:20 AM EST [facility] [address] [place] [address] Martin Solorio MD [address] [place] [address] 08/31/2024 9:00 AM EST Office Visit Hematology/Oncology [facility] 200 [facility] [place] [phone] Benja Watkins MD [address] [place] [address] 10/05/2024 12:30 PM EDT Telemedicine Care at Home [address] [place] [address] Kori Dumont PA-C [address] [place] [address] 02/14/2025 8:00 AM EDT Imaging Radiology [address] [place] [phone] Scheduled Procedures Name Priority Associated Diagnoses Date/Ti [...] this encounter Medical Devices Implanted Type Area Bible Teacher Device Identifier Shelf Expiration Date Model / Serial / Lot Cover [place] Hole 24mm 421.528 - [id number] Implanted:Qty: 1 on 08/20/2021 by Joni Hand III, MD at [place] [facility] Right: Head SYNTHES MAXILLOFACIAL 421.528 / / Plate Y Ti Lo Db 6h 21 421.517 - [id number] Implanted:Qty: 1 on 08/20/2021 by Joni Hand III, MD at [place] [facility] Right: Head SYNTHES MAXILLOFACIAL 421.517 / / Screw Ti Lo Pro Sd 4mm 400.834 - [id number] Implanted:Qty: 10 on 08/20/2021 by Joni Hand III, MD at [place] [facility] Right: Head SYNTHES MAXILLOFACIAL 400.834 / / Cement Hydroset Injectable 5cc - [id number] Implanted:Qty: 1 on 03/03/2024 by Joni Hand III, MD at [place] [facility] Left: Head SUZANNA [id number] 09/19/2025 [id number] / / [id number] Cover Bur Hol Ti Lo 17 421.527 - [id number] Implanted:Qty: 1 on 03/03/2024 by Joni Hand III, MD at [place] [facility] Left: Head SYNTHES MAXILLOFACIAL 421.527 / / Plate Ti Lo Pro Str 2h 421.502 - [id number] Implanted:Qty: 2 on 03/03/2024 by Joni Hand III, MD at [place] [facility] Left: Head SYNTHES MAXILLOFACIAL 421.502 / / Screw 4mm Ti Low Pro Sdrill - [id number] Implanted:Qty: 7 on 03/03/2024 by Joni Hand [...] and were consensually agreed upon. Care Teams Metal Base Blocker Relationship Specialty Start Date End Date Martin Solorio MD PCP - General Family Medicine 02/20/21 documented as of this encounter
--- OUTSIDE RECORDS SUMMARY | 2024-09-03 16:19 | External Medical Summary | Summary of Care ---
Author Name Unknown Organization [facility] Address [address] [place] [address] Phone [phone] Care Team Providers Care Double Cut Sawyer Name Role Phone Martin Solorio MD Primary Care Provider [phone] Reason for Visit * Reason Onset Date Comments Appointment 08/09/2024 Neurosurgery Encounter Details Date Type Department Care Team (Late st Contact Info) Description 08/09/2024 Telephone Care Coordination and Integration [address], [place] [phone] Mel Orlando, FARIHA [address] [place] [address] Appointment (Neurosurgery) Allergies Active Allergy Reactions Criticality Noted Date Comments Erythromycin 08/15/1997 seizures documented as of this encounter (statuses as of 08/11/2024) Medications traZODone HCl 100 MG Oral Tablet [...] EST 05/04/20 24 Active Vitamin D (Ergocalciferol) 86912 UNIT Oral Capsule Take 50,000 Units by [...] as of this encounter (statuses as of 08/11/2024) Active Problems Problem Noted Date Diagnosed Date History of stroke 06/04/2024 Overview (06/04/2024): 08/22/23 MRI "There is a chronic lacunar infarction within the left thalamus." Cerebral atrophy 09/30/2023 Spinal stenosis of cervical region 09/30/2023 Coronary artery disease invo lving [place] coronary artery of [place] heart without angina pectoris 09/30/2023 Pulmonary nodules [...] as of this encounter (statuses as of 08/11/2024) Resolved Problems Problem Noted Date Diagnosed Date [...] as of this encounter (statuses as of 08/11/2024) Immunizations Name Administration Dates Next Due COVID-19, [...] file Not on file Not on supervisor files Not on file Not on file Not [...] 03/01/2024 1:15 PM EDDo ольга Marroquin RN * Because of a physical, mental, [...] encounter Miscellaneous Notes * Telephone Encounter - Mel Orlando RN - 08/09/2024 2:47 PM EST Patient was hospitalized at [facility] from 07/06/2024 to 07/12/2024 with alteredmental status and a Brain MRI noted possible post surgical changes vs. recurrent/residual tumor changes. She was recommended to follow up with Neurosurgery post discharge. She did go to [facility] for rehab but was discharged to home on 08/07/2024. Please contact patient and/or her to schedule a Neurosurgery appointment. Thanks, Mel Orlando RN, BSN Float Senior Cost Accountant [phone] documented in this encounter Plan of Treatment Upcoming Encounters Date Type Department Care Team (Late st Contact Info) Description 08/13/2024 11:20 AM EST Office Visit [facility] [address] [facility] [place] [phone] Martin Solorio MD [address] [facility] [place] [address] 08/31/2024 9:00 AM EST Office Visit Hematology/Oncology [facility] [place] [address] [facility] [place] [phone] Benja Watkins MD [address] [facility] [place] [address] 09/07/2024 9:45 AM EST Pharmacy Pharmacy Hematology Oncology [facility] [address] [place] [address] [facility] Hem/Onc [address] [place] [address] 10/05/2024 12:30 PM EDT Telemedicine Care at Home [address] [place] [address] Kori Dumont PA-C [address] [place] [address] 02/14/2025 8:00 AM EDT Imaging Radiology [facility] 1st [facility] [address] [place] [address] Scheduled [...] this encounter Medical Devices Implanted Type Area Living Skills Advisor Device Identifier Shelf Expiration Date Model / Serial / Lot Cover [place] Hole 24mm 421.528 - [id number] Implanted:Qty: 1 on 08/20/2021 by Joni Hand III, MD at OR [facility] Right: Head SYNTHES MAXILLOFACIAL 421.528 / / Plate Y Ti Lo Db 6h 21 421.517 - [id number] Implanted:Qty: 1 on 08/20/2021 by Joni Hand III, MD at OR [facility] Right: Head SYNTHES MAXILLOFACIAL 421.517 / / Screw Ti Lo Pro Sd 4mm 400.834 - [id number] Implanted:Qty: 10 on 08/20/2021 by Joni Hand III, MD at OR [facility] Right: Head SYNTHES MAXILLOFACIAL 400.834 / / Cement Hydroset Injectable 5cc - [id number] Implanted:Qty: 1 on 03/03/2024 by Joni Hand III, MD at OR [facility] Left: Head SUZANNA [id number] 09/19/2025 [id number] / / [id number] Cover Bur Hol Ti Lo 17 421.527 - [id number] Implanted:Qty: 1 on 03/03/2024 by Joni Hand III, MD at OR [facility] Left: Head SYNTHES MAXILLOFACIAL 421.527 / / Plate Ti Lo Pro Str 2h 421.502 - [id number] Implanted:Qty: 2 on 03/03/2024 by Joni Hand III, MD at OR [facility] Left: Head SYNTHES MAXILLOFACIAL 421.502 / / Screw 4mm Ti Low Pro Sdrill - [id number] Implanted:Qty: 7 on 03/03/2024 by Joni Hand III, MD at OR [facility] Left: Head SYNTHES MAXILLOFACIAL 400.834E / / [...] and were consensually agreed upon. Care Teams Double Cut Sawyer Relationship Specialty Start Date End Date Martin Solorio MD PCP - General Family Medicine 02/20/21 documented as of this encounter
--- OUTSIDE RECORDS SUMMARY | 2024-09-03 16:19 | External Medical Summary | Summary of Care ---
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 90 Tablet 3 01/11/2 024 Active Triamcinolone Acetonide 0.1 % External Cream (Aristocort) Apply topically to affected area 2 times a day. To affected area. 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 60 Tablet 5 Active Trametinib Dimethyl Sulfoxide 0.5 MG Oral Tablet (Mekinist)Indicat ions:Malignant melanoma of left lower extremity (HCC) Take 3 tablets (1.5mg) by mouth in the morning. 90 Tablet 5 08/04/19 25 2:32 PM EST Active Dabrafenib Mesylate 75 MG Oral Capsule (Tafinlar) Take 1 capsule by mouth in the morning and 1 capsule before bedtime. 120 Capsule 2 06/28/20 24 3:06 PM EST Active Vitamin D (Ergocalciferol) 37934 UNIT Oral Capsule Take 50,000 Units by mouth once a week. For 8 weeks 8 Capsule Active Additional Information Patient not taking.Reported on 08/10/2024 Acetaminophen 325 MG Oral Tablet (Tylenol) Take 2 Tablets by mouth. Active Levothyroxine Sodium 175 MCG Oral Tablet (Levoxyl)Indicati ons:Acquired hypothyroidism Take 1 Tablet by mouth daily first thing in the morning. 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 60 Tablet 024 2024 Discontinued documented as of this encounter (statuses as of 08/16/2024) Active Problems Problem Noted Date Diagnosed Date History of stroke 06/04/2024 Overview (06/04/2024): 08/22/23 MRI "There is a chronic lacunar infarction within the left thalamus." Cerebral atrophy 09/30/2023 Spinal stenosis of cervical region 09/30/2023 Coronary artery disease invo lving [place] coronary artery of [place] heart without angina pectoris 09/30/2023 Pulmonary nodules [...] as of this encounter (statuses as of 08/16/2024) Resolved Problems Problem Noted Date Diagnosed Date [...] as of this encounter (statuses as of 08/16/2024) Immunizations Name Administration Dates Next Due COVID-19, [...] Telephone Encounter - Baldev Solorio MD - 08/16/2024 12:09 PM ESTSigned Prescriptions: Disp Refills traMADol HCl 50 MG Oral Tablet (Ultram) 60 Tab*0 Sig: Take 1 Tablet by mouth 3 times a day as needed for Pain, Moderate. Authorizing Provider: BALDEV SOLORIO * Telephone Encounter - Charley العراقي [facility] - 08/16/2024 9:10 AM ESTPending Prescriptions: Disp Refills traMADol HCl 50 MG Oral Tablet 60 Tab*0 Sig: TAKE 1 TABLET BY MOUTH THREE TIMES DAILY NEEDED FOR MODERATE PAIN * Telephone Encounter - Charley العرقاي [facility] - 08/16/2024 9:09 AM EST I have reviewed the patients controlled substance dispensing history in the Prescription Drug Monitoring Program in compliance with the [facility] regulations before prescribing a controlled substance. PDMP checked on 08/16/2024. Pending Prescriptions: Disp Refills traMADol HCl 50 MG Oral Tablet (Ultram) [*60 Tab*0 Sig: TAKE 1 TABLET BY MOUTH THREE TIMES DAILY NEEDED FOR MODERATE PAIN Last Visit: Visit date not found (in office), Visit date not found (telemedicine) Next Visit: 08/23/2024 Date medication was last filled: 07/12/24 Date medication is due for refill: 07/19/24 [facility] [address] [address] Is this request for a controlled substance? Yes and Urine Drug Screen Not completed Toxicology results: No results found. However, due to the size of the patient record, not all encounters were searched.Please check Results Review for a complete set of results. Please approve if appropriate. Thanks, Charley العراقي PharmD Clinical Pharmacist [facility] ([facility]) [phone] 08/16/2024, 9:09 AM documented in this encounter Plan of Treatment Upcoming Encounters Date Type Department Care Team (Late st Contact Info) Description 08/23/2024 11:20 AM EST Office [facility] [address] [facility] [place] [phone] Baldev Solorio MD [address] [facility] [place] [address] 08/31/2024 9:00 AM EST Office Visit Hematology/Oncology [facility] [address] [place] [address] Benja Watkins MD [address] [facility] [place] [address] 09/07/2024 9:45 AM EST Pharmacy Pharmacy Hematology Oncology [facility] [address] [place] [address] [facility], [facility] Hem/Onc [address] [place] [address] 10/05/2024 12:30 PM EDT Telemedicine Care at Home [address] [place] [address] Kori Dumont PA-C [address], [place] [phone] 02/14/2025 8:00 AM EDT Imaging Radiology [address] [place] [address] [...] this encounter Medical Devices Implanted Type Area [place] Device Identifier Shelf Expiration Date Model / Serial / Lot Cover [place] Hole 24mm 421.528 - [id number] Implanted:Qty: 1 on 08/20/2021 by Joni Hand III, MD at OR [facility] Right: Head SYNTHES MAXILLOFACIAL 421.528 / / Plate Y Ti Lo Db 6h 21 421.517 - [id number] Implanted:Qty: 1 on 08/20/2021 by oJni Hand III, MD at OR [facility] Right: Head SYNTHES MAXILLOFACIAL 421.517 / / Screw Ti Lo Pro Sd 4mm 400.834 - [id number] Implanted:Qty: 10 on 08/20/2021 by Joni Hand III, MD at OR [facility] Right: Head SYNTHES MAXILLOFACIAL 400.834 / / Cement Hydroset Injectable 5cc - [id number] Implanted:Qty: 1 on 03/03/2024 by Joni Hand III, MD at OR [facility] Left: Head SUZANNA [id number] 09/19/2025 [id number] / / [id number] Cover Bur Hol Ti Lo 17 421.527 - [id number] Implanted:Qty: 1 on 03/03/2024 by Joni Hand III, MD at OR [facility] Left: Head SYNTHES MAXILLOFACIAL 421.527 / / Plate Ti Lo Pro Str 2h 421.502 - [id number] Implanted:Qty: 2 on 03/03/2024 by Joni Hand III, MD at OR [facility] Left: Head SYNTHES MAXILLOFACIAL 421.502 / / Screw 4mm Ti Low Pro Sdrill - [id number] Implanted:Qty: 7 on 03/03/2024 by Joni Hand III, MD at OR [facility] Left: Head SYNTHES MAXILLOFACIAL [...] and were consensually agreed upon. Care Teams Observation Assistant Relationship Specialty Start Date End Date Baldev Solorio MD PCP - General Family Medicine 02/20/21 documented as of this encounter
--- OUTSIDE RECORDS SUMMARY | 2024-09-03 16:19 | External Medical Summary | Summary of Care ---
Author Name Unknown Organization [facility] Address [address] [facility] [place] [address] Phone [phone] Care Team Providers Care Raw Shellfish Preparer Name Role Phone Martin Solorio MD Primary Care Provider [phone] Reason for Visit * Reason Onset Date Comments [facility]: Maintenance 08/05/2024 Encounter Details Date Type Department Care Team (Late st Contact Info) Description 08/05/2024 Telephone [facility], [place] [address] [place] [address] Malena Pollard, PRACTICE ARCHITECT [address] [facility] [place] [phone] [facility]: Maintenance Allergies Active Allergy Reactions Criticality Noted [...] EST 05/04/20 24 Active Vitamin D (Ergocalciferol) 99217 UNIT Oral Capsule Take 50,000 Units by [...] region 09/30/2023 Coronary artery disease invo lving [place] coronary artery of [place] heart without angina pectoris 09/30/2023 Pulmonary nodules [...] on file Not on file 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 Not on file Not on file Not [...] Miscellaneous Notes * Telephone Encounter - Malena Pollard LPN - 08/05/2024 3:55 PM EST Radha from [facility] called Asking if [facility] has SW would like one involved when patient enrolled documented in this encounter Plan of Treatment Upcoming Encounters Date Type Department Care Team (Late st Contact Info) Description 08/10/2024 9:45 AM EST Pharmacy Pharmacy Hematology Oncology [facility] [address] [place] [address] [facility] Hem/Onc [address] [place] [address] 08/12/2024 10:20 AM EST [facility] [address] [place] [phone] Martin Solorio MD [address] [place], [place] [phone] 08/31/2024 9:00 AM EST Office Visit Hematology/Oncology [facility] [address] [facility] [place] [phone] Benja Watkins MD [address] [facility] [place] [address] 10/05/2024 12:30 PM EDT Telemedicine Care at Home [address] [place] [address] Kori Dumont PA-C [address] [place] [address] 02/14/2025 8:00 AM EDT Imaging Radiology [facility] 1st [facility] [address] [place] [phone] Scheduled Procedures Name Priority Associated Diagnoses Date/Ti [...] encounter Medical Devices Implanted Type Area Supervisor Self Service Store Device Identifier Shelf Expiration Date Model / Serial / Lot Cover [place] Hole 24mm 421.528 - [id number] Implanted:Qty: 1 on 08/20/2021 by Joni Hand III, MD at OR [facility] Right: Head SYNTHES MAXILLOFACIAL 421.528 / / Plate Y Ti Lo Db 6h 21 421.517 - [id number] Implanted:Qty: 1 on 08/20/2021 by Joni Hand III, MD at OR [facility] Right: Head SYNTHES MAXILLOFACIAL 421.517 / / Screw Ti Lo Pro Sd 4mm 400.834 - [id number] Implanted:Qty: 10 on 08/20/2021 by Joni Hand III, MD at OR [facility] Right: Head SYNTHES MAXILLOFACIAL 400.834 / / Cement Hydroset Injectable 5cc - [id number] Implanted:Qty: 1 on 03/03/2024 by Joni Hand III, MD at OR [facility] Left: Head SUZANNA [id number] 09/19/2025 [id number] / / [id number] Cover Bur Hol Ti Lo 17 421.527 - [id number] Implanted:Qty: 1 on 03/03/2024 by Joni Hand III, MD at OR [facility] Left: Head SYNTHES MAXILLOFACIAL 421.527 / / Plate Ti Lo Pro Str 2h 421.502 - [id number] Implanted:Qty: 2 on 03/03/2024 by Joni Hand III, MD at OR [facility] Left: Head SYNTHES MAXILLOFACIAL 421.502 / / Screw 4mm Ti Low Pro Sdrill - [id number] Implanted:Qty: 7 on 03/03/2024 by Joni Hand III, MD at OR [facility] Left: Head SYNTHES MAXILLOFACIAL 400.834E [...] and were consensually agreed upon. Care Teams Raw Shellfish Preparer Relationship Specialty Start Date End Date Martin Solorio MD PCP - General Family Medicine 02/20/21 documented as of this encounter
--- OUTSIDE RECORDS SUMMARY | 2024-09-03 16:19 | External Medical Summary | Summary of Care ---
Author Name Unknown Organization [facility] Address [address] [facility] [address] Phone [phone] Care Team Providers Care Tip Cementer Name Role Phone Martin Solorio MD Primary Care Provider [phone] Reason for Visit * Reason Onset Date Comments [facility]: Screening 08/05/2024 Encounter Details Date Type Department Care Team (Late st Contact Info) Description 08/05/2024 Telephone [facility], [facility] Region [address] [place] [address] Kendy Moreno, BROOMMAKING SUPERVISOR [address] [facility] [place] [phone] [facility]: Screening Allergies Active Allergy [...] EST 05/04/20 24 Active Vitamin D (Ergocalciferol) 29610 UNIT Oral Capsule Take 50,000 Units by [...] region 09/30/2023 Coronary artery disease invo lving [place] coronary artery of [place] heart without angina pectoris 09/30/2023 Pulmonary nodules [...] on file Not on file 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 A review of this chart was completed and: Judy meets criteria for [facility]. Jump to Initiation Referring care team was notified via : [employer] communication Sent to [facility] clerical pool to reach out to pt for enrollment documented in this encounter Plan of Treatment Upcoming Encounters Date Type Department Care Team (Late st Contact Info) Description 08/10/2024 9:45 AM EST Pharmacy Pharmacy Hematology Oncology [facility] [address] [place] [address] [facility] Hem/Onc [address] [place] [address] 08/12/2024 10:20 AM EST Office Visit [facility] [address] [place] [phone] Martin Solorio MD [address] [place] [address] 08/31/2024 9:00 AM EST Office Visit Hematology/Oncology [facility] 200 [facility] [place] [phone] Benja Watkins MD [address] [place] [address] 10/05/2024 12:30 PM EDT Telemedicine Care at Home [address] [place] [address] Kori Dumont PA-C [address] [place] [address] 02/14/2025 8:00 AM EDT Imaging Radiology [facility] 1st [facility] [address] [place] [address] [...] encounter Medical Devices Implanted Type Area Manager Rfid Device Identifier Shelf Expiration Date Model / Serial / Lot Cover [place] Hole 24mm 421.528 - [id number] Implanted:Qty: 1 on 08/20/2021 by Joni Hand III, MD at OR [facility] Right: Head SYNTHES MAXILLOFACIAL 421.528 / / Plate Y Ti Lo Db 6h 21 421.517 - [id number] Implanted:Qty: 1 on 08/20/2021 by Joni Hand III, MD at OR [facility] Right: Head SYNTHES MAXILLOFACIAL 421.517 / / Screw Ti Lo Pro Sd 4mm 400.834 - [id number] Implanted:Qty: 10 on 08/20/2021 by Joni Hand III, MD at OR [facility] Right: Head SYNTHES MAXILLOFACIAL 400.834 / / Cement Hydroset Injectable 5cc - [id number] Implanted:Qty: 1 on 03/03/2024 by Joni Hand III, MD at OR [facility] Left: Head SUZANNA [id number] 09/19/2025 [id number] / / [id number] Cover Bur Hol Ti Lo 17 421.527 - [id number] Implanted:Qty: 1 on 03/03/2024 by Joni Hand III, MD at OR [facility] Left: Head SYNTHES MAXILLOFACIAL 421.527 / / Plate Ti Lo Pro Str 2h 421.502 - [id number] Implanted:Qty: 2 on 03/03/2024 by Joni Hand III, MD at OR [facility] Left: Head SYNTHES MAXILLOFACIAL 421.502 / / Screw 4mm Ti Low Pro Sdrill - [id number] Implanted:Qty: 7 on 03/03/2024 by Joni Hand III, MD at OR [facility] Left: Head SYNTHES MAXILLOFACIAL 400.834E [...] and were consensually agreed upon. Care Teams Tip Cementer Relationship Specialty Start Date End Date Martin Solorio MD PCP - General Family Medicine 02/20/21 documented as of this encounter
--- OUTSIDE RECORDS SUMMARY | 2024-09-03 16:20 | External Medical Summary | Summary of Care ---
Author Name Unknown Organization [facility] Address [address] [place] [address] Phone [phone] Care Team Providers Care Shipping Weigher Name Role Phone Martin Solorio MD Primary Care Provider [phone] Reason for Visit * Reason Onset Date Comments Advice 07/23/2024 Roland Encounter Details Date Type Department Care Team (Late st Contact Info) Description 07/23/2024 Telephone Hematology/Oncology [facility] [place] [address] [place] [address] Services, Scheduling [address] [place] [address] Advice (Roland) Allergies Active Allergy Reactions Criticality Noted Date Comments Erythromycin 08/15/1997 seizures documented as of this encounter (statuses as of 08/02/2024) Medications MULTIVITAMINS PO TABS Take 1 Tablet [...] EST 05/04/20 24 Active Vitamin D (Ergocalciferol) 26581 UNIT Oral Capsule Take 50,000 Units by [...] for Pain, Moderate. 60 Tablet 06/07/20 Active Levothyroxine Sodium 175 MCG Oral Tablet (Levoxyl)Indicatio ns:Acquired hypothyroidism Take 1 Tablet by mouth daily first thing in the morning. (at least 30 min prior to breakfast or other meds) 90 Tablet 1 07/05/20 Active documented as of this encounter (statuses as of 08/02/2024) Active Problems Problem Noted Date Diagnosed Date History of stroke 06/04/2024 Overview (06/04/2024): 08/22/23 MRI "There is a chronic lacunar infarction within the left thalamus." Cerebral atrophy 09/30/2023 Spinal stenosis of cervical region 09/30/2023 Coronary artery disease invo lving [place] coronary artery of [place] heart without angina pectoris 09/30/2023 Pulmonary nodules [...] as of this encounter (statuses as of 08/02/2024) Resolved Problems Problem Noted Date Diagnosed Date [...] as of this encounter (statuses as of 08/02/2024) Immunizations Name Administration Dates Next Due COVID-19, [...] file Not on file 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 [facility]/ [facility]: is someone already helping patient/ with copay assistance? Thanks! * Telephone Encounter - Magaly Villarreal OSA - 07/30/2024 5:36 PM EST Pts Kwame calling in states to get his wifes prescription filled it is now going to cost them over $2,000 OOP. Please advise. * Telephone Encounter - Sharon Sprague RN - 07/23/2024 10:31 AM EST Patient discharged from [facility] 07/12/24, at [facility] for rehab. Called Kwame- advised him that we would suggest scheduling an appt for in a few weeks. Kwame statesthat he will see what happens over the next week and then will call in. * Telephone Encounter - Jacques Garcia OSA - 07/23/2024 10:11 AM EST Patient Kwame called in to advise that he is unable to reschedule appt at this time due to pt still being in the hospital. documented in this encounter Plan of Treatment Upcoming Encounters Date Type Department Care Team (Late st Contact Info) Description 08/10/2024 9:45 AM EST Pharmacy Pharmacy Hematology Oncology [address] [address] [facility], [facility] Hem/Onc [address] [place] [address] 08/31/2024 9:00 AM EST Office Visit Hematology/Oncology [facility] [address] [place] [address] Benja Watkins MD [address] [place] [address] 10/05/2024 12:30 PM EDT Telemedicine Care at Home [address] [place], [place] [id number] Kori Dumont PA-C [address] [facility] [place] [address] 02/14/2025 8:00 AM EDT Imaging Radiology [address], [place] [address] [place] [id number] Scheduled Procedures Name Priority Associated Diagnoses Date/Ti [...] this encounter Medical Devices Implanted Type Area Mitten Sewer Device Identifier Shelf Expiration Date Model / Serial / Lot Cover Mars Hole 24mm 421.528 - [id number] Implanted:Qty: 1 on 08/20/2021 by Joni Hand III, MD at [place] [facility] Right: Head SYNTHES MAXILLOFACIAL 421.528 / / Plate Y Ti Lo Db 6h 21 421.517 - [id number] Implanted:Qty: 1 on 08/20/2021 by Joni Hand III, MD at OR [facility] Right: Head SYNTHES MAXILLOFACIAL 421.517 / / Screw Ti Lo Pro Sd 4mm 400.834 - [id number] Implanted:Qty: 10 on 08/20/2021 by Joni Hand III, MD at OR [facility] Right: Head SYNTHES MAXILLOFACIAL 400.834 / / Cement Hydroset Injectable 5cc - [id number] Implanted:Qty: 1 on 03/03/2024 by Joni Hand III, MD at OR [facility] Left: Head SUZANNA [id number] 09/19/2025 [id number] / / [id number] Cover Bur Hol Ti Lo 17 421.527 - [id number] Implanted:Qty: 1 on 03/03/2024 by Joni Hand III, MD at OR [facility] Left: Head SYNTHES MAXILLOFACIAL 421.527 / / Plate Ti Lo Pro Str 2h 421.502 - [id number] Implanted:Qty: 2 on 03/03/2024 by Joni Hand III, MD at OR [facility] Left: Head SYNTHES MAXILLOFACIAL 421.502 / / Screw 4mm Ti Low Pro Sdrill - [id number] Implanted:Qty: 7 on 03/03/2024 by Joni Hand [...] and were consensually agreed upon. Care Teams Shipping Weigher Relationship Specialty Start Date End Date Martin Solorio MD PCP - General Family Medicine 02/20/21 documented as of this encounter
--- OUTSIDE RECORDS SUMMARY | 2024-09-03 16:20 | External Medical Summary | Summary of Care ---
Author Name Unknown Organization [facility] Address [address] [place] [address] Phone [phone] Care Team Providers Care Digital Content Specialist Name Role Phone Martin Solorio MD Primary Care Provider [phone] Encounter Details Date Type Department Care Team (Late st Contact Info) Description 07/26/2024 Population Health External Data Unspecified Department Allergies Active Allergy Reactions Criticality Noted Date Comments Erythromycin 08/15/1997 seizures documented as of this encounter (statuses as of 07/26/2024) Medications MULTIVITAMINS PO TABS Take 1 Tablet [...] EST 05/04/20 24 Active Vitamin D (Ergocalciferol) 67478 UNIT Oral Capsule Take 50,000 Units by [...] meds) 90 Tablet 1 07/05/20 24 Active documented as of this encounter (statuses as of 07/26/2024) Active Problems Problem Noted Date Diagnosed Date [...] as of this encounter (statuses as of 07/26/2024) Resolved Problems Problem Noted Date Diagnosed Date [...] as of this encounter (statuses as of 07/26/2024) Immunizations Name Administration Dates Next Due COVID-19, [...] on file Not on file 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 Not on file Not on file Not [...] Care Team (Late st Contact Info) Description 08/02/2024 8:20 AM EST Office Visit [facility] [address] [place] [address] Martin Solorio MD [address] [place] [address] 08/10/2024 9:45 AM EST Pharmacy Pharmacy Hematology Oncology [address] [address] [facility] Hem/Onc [facility] [address] 10/05/2024 12:30 PM EDT Telemedicine Care at Home [address] [facility] [place] [address] Kori Dumont PA-C [address] [place] [id number] 02/14/2025 8:00 AM EDT Imaging Radiology [address] 132 [facility] [place] [...] this encounter Medical Devices Implanted Type Area Study Lead Device Identifier Shelf Expiration Date Model / Serial / Lot Cover Nilda Hole 24mm 421.528 - [id number] Implanted:Qty: 1 on 08/20/2021 by Joni Hand III, [place] [facility] [place]: Head SYNTHES MAXILLOFACIAL 421.528 / / Plate Y Ti Lo Db 6h 21 421.517 - [id number] Implanted:Qty: 1 on 08/20/2021 by Joni Hand III, MD [place] [facility] [place]: Head SYNTHES MAXILLOFACIAL 421.517 / / Screw Ti Lo Pro Sd 4mm 400.834 - [id number] Implanted:Qty: 10 on 08/20/2021 by Joni Hand III, MD [place] [facility] Right: Head SYNTHES MAXILLOFACIAL 400.834 / / Cement Hydroset Injectable 5cc - [id number] Implanted:Qty: 1 on 03/03/2024 by Joni Hand III, MD [place] [facility] Left: Head SUZANNA [id number] 09/19/2025 [id number] / / [id number] Cover Bur Hol Ti Lo 17 421.527 - [id number] Implanted:Qty: 1 on 03/03/2024 by Joni Hand III, MD [place] [facility] Left: Head SYNTHES MAXILLOFACIAL 421.527 / / Plate Ti Lo Pro Str 2h 421.502 - [id number] Implanted:Qty: 2 on 03/03/2024 by Joni Hand III, MD [place] [facility] Left: Head SYNTHES MAXILLOFACIAL 421.502 / / Screw 4mm Ti Low Pro Sdrill - [id number] Implanted:Qty: 7 on 03/03/2024 by Joni Hand III, MD [place] [facility] Left: Head SYNTHES MAXILLOFACIAL 400.834E / / [...] and were consensually agreed upon. Care Teams Digital Content Specialist Relationship Specialty Start Date End Date Martin Solorio MD PCP - General Family Medicine 02/20/21 documented as of this encounter
--- OUTSIDE RECORDS SUMMARY | 2024-09-03 16:20 | External Medical Summary | Summary of Care ---
Author Name Unknown Organization [facility] Address [address] [facility] [address] Phone [phone] Care Team Providers Care Creel Selector Name Role Phone Baldev Solorio MD Primary Care Provider Reason for Visit * Reason Comments eRx-Medication Refill Encounter Details Date Type Department Care Team (Late st Contact Info) Description 08/04/2024 Refill [facility] [address] [facility] [place] [address] Baldev Solorio MD [address] [place] [address] HTN, goal below 130/80 Allergies Active Allergy Reactions Criticality Noted Date Comments Erythromycin 08/15/1997 seizures documented as of this encounter (statuses as of 08/04/2024) Medications MULTIVITAMINS PO TABS Take 1 Tablet by mouth every morning. 0 008 Active traZODone HCl 100 MG Oral Tablet (Desyrel)Indicati ons:Insomnia, unspecified type TAKE 1 & 1/2 (ONE & ONE-HALF) TABLETS BY MOUTH AT BEDTIME 45 Tablet 5 023 Active Atorvastatin Calcium 20 MG Oral Tablet (Lipitor)Indicati ons:Dyslipidemia Take 1 Tablet by mouth every evening. 90 Tablet 3 024 Active Triamcinolone Acetonide 0.1 % External Cream (Aristocort) Apply topically to affected area 2 times a day. To affected area. 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 Active Famotidine 20 MG Oral Tablet (Pepcid) Active PARoxetine HCl 40 MG Oral Tablet (pAXil)Indication s:Adjustment disorder with depressed mood TAKE 1 TABLET BY MOUTH IN THE MORNING 90 Tablet 3 Active Ondansetron HCl 8 MG Oral [...] mouth in the morning. 90 Tablet 5 06/28/20 24 3:06 PM EST 024 Active Dabrafenib Mesylate 75 MG Oral Capsule (Tafinlar) Take 1 capsule by mouth in the morning and 1 capsule before bedtime. 120 Capsule 2 06/28/20 24 3:06 PM EST 024 Active Vitamin D (Ergocalciferol) 62266 UNIT Oral Capsule Take 50,000 Units by mouth once a week. For 8 weeks 8 Capsule Active Acetaminophen 325 MG Oral Tablet (Tylenol) Take 2 Tablets by mouth. Active oxyCODONE HCl 5 MG Oral Tablet (Oxy IR) Take 1 Tablet by mouth. 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 60 Tablet 024 Active Levothyroxine Sodium 175 MCG Oral Tablet (Levoxyl)Indicati ons:Acquired hypothyroidism Take 1 Tablet by mouth daily first thing in the morning. (at least 30 min prior to breakfast or other meds) 90 Tablet 1 024 Active Losartan Potassium 50 MG Oral Tablet (Cozaar)Indicatio ns:HTN, goal below 130/80 TAKE 1 TABLET BY MOUTH IN THE MORNING 90 Tablet 2 025 Active Losartan Potassium 50 MG Oral Tablet (Cozaar)Indicatio ns:HTN, goal below 130/80 Take 1 Tablet by mouth in the morning. 90 Tablet 3 024 2024 Discontinued documented as of this encounter (statuses as of 08/04/2024) Active Problems Problem Noted Date Diagnosed Date History of stroke 06/04/2024 Overview (06/04/2024): 08/22/23 MRI "There is a chronic lacunar infarction within the left thalamus." Cerebral atrophy 09/30/2023 Spinal stenosis of cervical region 09/30/2023 Coronary artery disease invo lving nikolai coronary artery of nikolai heart without angina pectoris 09/30/2023 Pulmonary nodules [...] as of this encounter (statuses as of 08/04/2024) Resolved Problems Problem Noted Date Diagnosed Date [...] as of this encounter (statuses as of 08/04/2024) Immunizations Name Administration Dates Next Due COVID-19, [...] on file Not on file 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 Not on file [...] Miscellaneous Notes * Telephone Encounter - Mary Anne Davila [facility] - 08/04/2024 12:45 PM ESTSigned Prescriptions: Disp Refills Losartan Potassium 50 MG Oral Tablet (Coza*90 Tab*2 Sig: TAKE 1 TABLET BY MOUTH IN THE MORNINGAuthorizing Provider: BALDEV SOLORIO User: MARY ANNE DAVILA-- documented in this encounter Plan of Treatment Upcoming Encounters Date Type Department Care Team (Late st Contact Info) Description 08/10/2024 9:45 AM EST Pharmacy Pharmacy Hematology Oncology [facility] [address] [place] [address] [facility], [facility] Hem/Onc [address] [place] [address] 08/31/2024 9:00 AM EST Office Visit Hematology/Oncology [facility] 200 [facility] [place] [phone] Benja Watkins MD [address] [place] [address] 10/05/2024 12:30 PM EDT Telemedicine Care at Home [address] [place] [address] Kori Dumont PA-C [address] [place] [address] 02/14/2025 8:00 AM EDT Imaging Radiology [facility] [address] [place] [address] Scheduled [...] this encounter Medical Devices Implanted Type Area Needle Leader Device Identifier Shelf Expiration Date Model / Serial / Lot Cover [place] Hole 24mm 421.528 - [id number] Implanted:Qty: 1 on 08/20/2021 by Joni Hand III, [place] [facility] [place]: Head SYNTHES MAXILLOFACIAL 421.528 / / Plate Y Ti Lo Db 6h 21 421.517 - [id number] Implanted:Qty: 1 on 08/20/2021 by Joni Hand III, [place] [facility] [place]: Head SYNTHES MAXILLOFACIAL 421.517 / / Screw Ti Lo Pro Sd 4mm 400.834 - [id number] Implanted:Qty: 10 on 08/20/2021 by Joni Hand III, [place] [facility] Right: Head SYNTHES MAXILLOFACIAL 400.834 / / Cement Hydroset Injectable 5cc - [id number] Implanted:Qty: 1 on 03/03/2024 by Joni Hand III, [place] [facility] Left: Head SUZANNA [id number] 09/19/2025 [id number] / / [id number] Cover Bur Hol Ti Lo 17 421.527 - [id number] Implanted:Qty: 1 on 03/03/2024 by Joni Hand III, [place] [facility] Left: Head SYNTHES MAXILLOFACIAL 421.527 / / Plate Ti Lo Pro Str 2h 421.502 - [id number] Implanted:Qty: 2 on 03/03/2024 by Joni Hand III, MD [place] [facility] Left: Head SYNTHES MAXILLOFACIAL 421.502 / / Screw 4mm Ti Low Pro Sdrill - [id number] Implanted:Qty: 7 on 03/03/2024 by Joni Hand III, [place] [facility] Left: Head SYNTHES MAXILLOFACIAL 400.834E / / documented as of this encounter Visit Diagnoses Diagnosis HTN, goal below 130/80 Unspecified essential hypertension Screening mammogram for breast cancer documented in [...] and were consensually agreed upon. Care Teams Creel Selector Relationship Specialty Start Date End Date Baldev Solorio MD PCP - General Family Medicine 02/20/21 documented as of this encounter
--- OUTSIDE RECORDS SUMMARY | 2024-09-03 16:20 | External Medical Summary | Summary of Care ---
Author Name Unknown Organization [facility] Address [address] [place] [address] Phone [phone] Care Team Providers Care Leather Case Finisher Name Role Phone Martin Solorio MD Primary Care Provider [phone] Reason for Visit * Reason Onset Date Comments Patient Assistance Program 07/23/2024 13 Zeinab Rodriges/Taf Bill ribera approved Encounter Details Date Type Department Care Team (Late st Contact Info) Description 07/23/2024 Telephone Hematology/Oncology [facility] [address] [place] [address] Services, Scheduling [address] [place] [address] Patient Assistance Program (13 Elizabeth Avalos Allergies Active Allergy Reactions Criticality Noted Date [...] EST 05/04/20 24 Active Vitamin D (Ergocalciferol) 93639 UNIT Oral Capsule Take 50,000 Units by [...] 09/30/2023 Coronary artery disease invo lving [place] coronary artery of [place] heart without angina pectoris 09/30/2023 Pulmonary nodules [...] on file Not on file 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 Name of Medication: Mekinst / Taflinar Was patient spoken to: : YES Type of assistance: [facility] STOREY Card ID:[id number] Group: [id number] BIN: [id number] PCN: [id number] Name ofGrant:MELANOMA Balance 54k 04/29/2024-07/31/2025 Applications mailed: : NO Follow up: none mounika will cover in full until 07/31/2025 Elizabeth Reyes Medication Role Player 08/02/2024.9:19 AM * Telephone Encounter - Sharon Sprague RN [...] 07/23/2024 10:31 AM EST Patient discharged from [facility] 07/12/24, at [facility] for rehab. Called Kwame- advised him that [...] Oncology [facility] [address] [place] [address] [facility] Hem/Onc [address] [place] [address] 08/31/2024 9:00 AM EST Office Visit Hematology/Oncology [facility] 200 [facility] [place] [phone] Benja Watkins MD 200 [facility] [place] [address] 10/05/2024 12:30 PM EDT Telemedicine Care at Home [address] [place] [address] Kori Dumont PA-C [address] [place] [address] 02/14/2025 8:00 AM EDT Imaging Radiology [address] 132 [facility] [place] [id number] Scheduled Procedures Name Priority Associated Diagnoses Date/Ti [...] this encounter Medical Devices Implanted Type Area Chemical Dependency Professional Device Identifier Shelf Expiration Date Model / Serial / Lot Cover Nilda Hole 24mm 421.523 - [id number] Implanted:Qty: 1 on 08/20/2021 by Joni Hand III, MD at [facility] Right: Head SYNTHES MAXILLOFACIAL 421.528 / / Plate Y Ti Lo Db 6h 21 421.517 - [id number] Implanted:Qty: 1 on 08/20/2021 by Joni Hand III, MD at [place] [facility] Right: Head SYNTHES MAXILLOFACIAL 421.517 / / Screw Ti Lo Pro Sd 4mm 400.834 - [id number] Implanted:Qty: 10 on 08/20/2021 by Joni Hand III, MD at [place] [facility] Right: Head SYNTHES MAXILLOFACIAL 400.834 / / Cement Hydroset Injectable 5cc - [id number] Implanted:Qty: 1 on 03/03/2024 by Joni Hand III, MD at [place] [facility] Left: Head SUZANNA [id number] 09/19/2025 [id number] / / [id number] Cover Bur Hol Ti Lo 17 421.527 - [id number] Implanted:Qty: 1 on 03/03/2024 by Joni Hand III, MD at [place] [facility] Left: Head SYNTHES MAXILLOFACIAL 421.527 / / Plate Ti Lo Pro Str 2h 421.502 - [id number] Implanted:Qty: 2 on 03/03/2024 by Joni Hand III, MD at [place] [facility] Left: Head SYNTHES MAXILLOFACIAL 421.502 / / Screw 4mm Ti Low Pro Sdrill - [id number] Implanted:Qty: 7 on 03/03/2024 by Joni Hand III, MD at [place] [facility] Left: Head SYNTHES MAXILLOFACIAL 400.834E / / [...] were consensually agreed upon. Care Teams Leather Case Finisher Relationship Specialty Start Date End Date Martin Solorio MD PCP - General Family Medicine 02/20/21 documented as of this encounter
--- OUTSIDE RECORDS SUMMARY | 2024-09-03 16:20 | External Medical Summary | Summary of Care ---
Author Name Unknown Organization [facility] Address [address] [facility] [address] Phone [phone] Care Team Providers Care User Interface Engineer Name Role Phone Baldev Solorio MD Primary Care Provider Reason for Visit * Reason Comments eRx-Medication Refill Encounter Details Date Type Department Care Team (Late st Contact Info) Description 07/11/[address] [facility] [address] [place] [address] Baldev Solorio MD [address] [place] [address] Encounter for long-term (current) use of medications* Allergies Active Allergy Reactions Criticality Noted Date Comments Erythromycin 08/15/1997 seizures documented as of this encounter (statuses as of 07/19/2024) Medications MULTIVITAMINS PO TABS Take 1 Tablet [...] EST 05/04/20 24 Active Vitamin D (Ergocalciferol) 22193 UNIT Oral Capsule Take 50,000 Units by [...] as of this encounter (statuses as of 07/19/2024) Active Problems Problem Noted Date Diagnosed Date History of stroke 06/04/2024 Overview (06/04/2024): 08/22/23 MRI "There is a chronic lacunar infarction within the left thalamus." Cerebral atrophy 09/30/2023 Spinal stenosis of cervical region 09/30/2023 Coronary artery disease invo lving [place] coronary artery of [place] heart without angina pectoris 09/30/2023 Pulmonary [...] as of this encounter (statuses as of 07/19/2024) Resolved Problems Problem Noted Date Diagnosed Date [...] as of this encounter (statuses as of 07/19/2024) Immunizations Name Administration Dates Next Due COVID-19, [...] encounter Miscellaneous Notes * Telephone Encounter - Amarilis Pardo LPN - 07/19/2024 10:37 AM ESTRefused Prescriptions: Disp Refills Vitamin D3 250 MCG (65755 UT) Oral Capsule Sig: Take 1 Capsule by mouth in the morning.Refused By: BALDEV SOLORIO for Refusal: Dose needs clarification------- * Telephone Encounter - Baldev Solorio MD - 07/16/2024 7:55 PM ESTPending Prescriptions: Disp Refills Vitamin D (Ergocalciferol) 1.25 MG (59880 *8 Caps*0 Sig: Take 1 capsule by mouth once a week * Telephone Encounter - Baldev Solorio MD - 07/16/2024 7:53 PM EST Notify Pt: she should have done 8 weeks of Vit D 50,000 Units weekly. We now need Vit D level before recommending ongoing Vit D dosing.For now, Level is ordered.I recommend she use Viot D 1000 Units daily. This is OTC * Telephone Encounter - Alana Galloway CPhT - 07/16/2024 9:26 AM ESTPending Prescriptions: Disp Refills Vitamin D (Ergocalciferol) 1.25 MG (81393 *8 Caps*0 Sig: Take 1 capsule by mouth once a week * Telephone Encounter - Alana Galloway CPhT - 07/16/2024 9:25 AM EST Received message from [facility] regarding patient needing labs. Call Placed. Spoke to patients and patient is in hospital. Thank you, Alana Galloway CPhT Pot Runner III [facility] ([facility]) [address] [place] [address], [address] 38-74 * Telephone Encounter - Amaya Echavarria [facility] - 07/13/2024 9:59 AM ESTPending Prescriptions: Disp Refills Vitamin D (Ergocalciferol) 1.25 MG (90451 *8 Caps*0 Sig: Take 1 capsule by mouth once a week * Telephone Encounter - Amaya Echavarria [facility] - 07/13/2024 9:58 AM EST Unable to authorize medication refills for pended medication(s) at this time. Per refill protocol patient should have vit d on file within past year. Reviewed AMP report, Care Gaps/Health Maintenance, medications list, and for any routine labs typically ordered for this patient. Lab orders placed. Please contact patient to advise of labs ordered for blood draw. Fasting is not required. Advise toobtain labs before requesting the next refill. After contacting patient, please forward request to Baldev Solorio MD. Thanks, Amaya Echavarria, PharmD Clinical Pharmacist [facility] [phone] 07/13/2024 9:58 AM documented in this encounter Plan of Treatment Upcoming Encounters Date Type Department Care Team (Late st Contact Info) Description 08/02/2024 8:20 AM EST Office Visit Family [facility], Justyna Phelan Paul [address] [phone] Baldev Solorio MD [address] [address] 08/10/2024 9:45 AM EST Pharmacy Pharmacy Hematology Oncology [facility] [address] [place] [address] [facility]c [address] [place] [address] 10/05/2024 12:30 PM EDT Telemedicine Care at Home [address] [place] [address] Kori Dumont PA-C [address] [place] [address] 02/14/2025 8:00 AM EDT Imaging Radiology [address] [facility] [place] [address] Scheduled Orders Name Type Priority Associated Diagnoses Orde r Schedule 25-HYDROXY VITAMIN D Lab Routine Encounter for long-term (current) use of medications Expected: 07/13/2024 (Approximate), Expires: 07/13/2025 Scheduled Procedures Name Priority Associated Diagnoses Date/Ti me COLONOSCOPY FLEXIBLE PROXIMA L DIAGNOSTIC Recall Family history of colon cancer Health Maintenance Due Date Last Done Comments Alpha-1 Antitrypsin 1976 Cologuard 2003 Fecal Occult Blood Test 2003 Sigmoidoscopy 2003 Pneumococcal Vaccine: 50+ Years (3 of 3 - PPSV23, PCV20 or PCV21) 05/03/2023 03/08/2023, 04/22/2022, 04/22/2022, Additional history exists Influenza Vaccine (FLU shot) (#1) 2024 03/08/2023, 04/04/2021, 04/04/2021, Additional history exists DXA Scan 07/20/2024 Postponed from 2023 (Patient [...] encounter Medical Devices Implanted Type Area Manager Web Application Device Identifier Shelf Expiration Date Model / Serial / Lot Cover Nilda Hole 24mm 421.528 - [id number] Implanted:Qty: 1 on 08/20/2021 by Joni Hand III, [place] [facility] [place]: Head SYNTHES MAXILLOFACIAL 421.528 / / Plate Y Ti Lo Db 6h 21 421.517 - [id number] Implanted:Qty: 1 on 08/20/2021 by Joni Hand III, MD at [place] [facility] [place] Right: Head SYNTHES MAXILLOFACIAL 421.517 / / Screw Ti Lo Pro Sd 4mm 400.834 - [id number] Implanted:Qty: 10 on 08/20/2021 by Joni Hand III, MD at [place] [facility] [place] Right: Head SYNTHES MAXILLOFACIAL 400.834 / / Cement Hydroset Injectable 5cc - [id number] Implanted:Qty: 1 on 03/03/2024 by Joni Hand III, MD at [place] [facility] Left: Head SUZANNA [id number] 09/19/2025 [id number] / / [id number] Cover Bur Hol Ti Lo 17 421.527 - [id number] Implanted:Qty: 1 on 03/03/2024 by Joni Hand III, MD at [place] [facility] Left: Head SYNTHES MAXILLOFACIAL 421.527 / / Plate Ti Lo Pro Str 2h 421.502 - [id number] Implanted:Qty: 2 on 03/03/2024 by Joni Hand III, MD at [place] [facility] [place] Left: Head SYNTHES MAXILLOFACIAL 421.502 / / Screw 4mm Ti Low Pro Sdrill - [id number] Implanted:Qty: 7 on 03/03/2024 by Joni Hand III, MD at [place] [facility] Left: Head SYNTHES MAXILLOFACIAL 400.834E / / documented as of this encounter Visit Diagnoses Diagnosis Encounter for long-term (current) use of medications- Primary Encounter for long-term (current) use of other medications Screening mammogram for breast cancer documented in [...] and were consensually agreed upon. Care Teams User Interface Engineer Relationship Specialty Start Date End Date Baldev Solorio MD PCP - General Family Medicine 02/20/21 documented as of this encounter
--- OUTSIDE RECORDS SUMMARY | 2024-09-03 16:20 | External Medical Summary | Summary of Care ---
Author Name Unknown Organization [facility] Address [address] [place] [address] Phone [phone] Care Team Providers Care Rehab Manager Name Role Phone Martin Solorio MD Primary Care Provider [phone] Reason for Visit * Reason Onset Date Comments Advice 07/23/2024 Roland Encounter Details Date Type Department Care Team (Late st Contact Info) Description 07/23/2024 Telephone Hematology/Oncology [facility] [address] [place] [address] Services, Scheduling [address] [place] [address] Advice (Roland) Allergies Active Allergy Reactions Criticality Noted Date Comments Erythromycin 08/15/1997 seizures documented as of this encounter (statuses as of 07/30/2024) Medications MULTIVITAMINS PO TABS Take 1 Tablet [...] EST 05/04/20 24 Active Vitamin D (Ergocalciferol) 32676 UNIT Oral Capsule Take 50,000 Units by [...] as of this encounter (statuses as of 07/30/2024) Active Problems Problem Noted Date Diagnosed Date [...] as of this encounter (statuses as of 07/30/2024) Resolved Problems Problem Noted Date Diagnosed Date [...] as of this encounter (statuses as of 07/30/2024) Immunizations Name Administration Dates Next Due COVID-19, [...] file Not on file 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 Please advise. * Telephone Encounter - Sharon Sprague RN - 07/23/2024 10:31 AM EST Patient discharged from [facility] 07/12/24, at [facility] for rehab. Called Kwame- advised him [...] 9:45 AM EST Pharmacy Pharmacy Hematology Oncology [facility] [address] [place] [address] [facility], [facility] Hem/Onc [address] [place] [address] 08/31/2024 9:00 AM EST Office Visit Hematology/Oncology [facility] [address] [facility] [place] [phone] Benja Watkins MD [address] [facility] [place] [address] 10/05/2024 12:30 PM EDT Telemedicine Care at Home [address] [place] [address] Kori Dumont PA-C [address] [place] [address] 02/14/2025 8:00 AM EDT Imaging Radiology [address] [facility] [place] [address] Scheduled Procedures Name Priority Associated Diagnoses Date/Ti [...] this encounter Medical Devices Implanted Type Area Vegetable Thinner Device Identifier Shelf Expiration Date Model / Serial / Lot Cover Nilda Hole 24mm 421.528 - [id number] Implanted:Qty: 1 on 08/20/2021 by Joni Hand III, [place] [facility] [place] Head SYNTHES MAXILLOFACIAL 421.528 / / Plate Y Ti Lo Db 6h 21 421.517 - [id number] Implanted:Qty: 1 on 08/20/2021 by Joni Hand III, [place] [facility] [place]: Head SYNTHES MAXILLOFACIAL 421.517 / / Screw Ti Lo Pro Sd 4mm 400.834 - [id number] Implanted:Qty: 10 on 08/20/2021 by Joni Hand III, [place] [facility] [place]: Head SYNTHES MAXILLOFACIAL 400.834 / / Cement Hydroset Injectable 5cc - [id number] Implanted:Qty: 1 on 03/03/2024 by Joni Hand III, [place] [facility] [place]: Head SUZANNA [id number] 09/19/2025 [id number] / / [id number] Cover Bur Hol Ti Lo 17 421.527 - [id number] Implanted:Qty: 1 on 03/03/2024 by Joni Hand III, [place] [facility] [place]: Head SYNTHES MAXILLOFACIAL 421.527 / / Plate Ti Lo Pro Str 2h 421.502 - [id number] Implanted:Qty: 2 on 03/03/2024 by Joni Hand III, [place] [facility] [place]: Head SYNTHES MAXILLOFACIAL 421.502 / / Screw 4mm Ti Low Pro Sdrill - [id number] Implanted:Qty: 7 on 03/03/2024 by Joni Hand [...] and were consensually agreed upon. Care Teams Rehab Manager Relationship Specialty Start Date End Date Martin Solorio MD PCP - General Family Medicine 02/20/21 documented as of this encounter
--- OUTSIDE RECORDS SUMMARY | 2024-09-03 16:20 | External Medical Summary | Summary of Care ---
Author Name Unknown Organization [facility] Address [address] [place] [address] Phone [phone] Care Team Providers Care Squadron Worker Name Role Phone Martin Solorio MD Primary Care Provider [phone] Reason for Visit * Reason Onset Date Comments Advice 07/23/2024 Roland Encounter Details Date Type Department Care Team (Late st Contact Info) Description 07/23/2024 Telephone Hematology/Oncology [facility] [address] [place] [address] Services, Scheduling [address] [place] [address] Advice (Roland) Allergies Active Allergy Reactions Criticality Noted Date Comments Erythromycin 08/15/1997 seizures documented as of this encounter (statuses as of 07/23/2024) Medications MULTIVITAMINS PO TABS Take 1 Tablet [...] EST 05/04/20 24 Active Vitamin D (Ergocalciferol) 12482 UNIT Oral Capsule Take 50,000 Units by [...] as of this encounter (statuses as of 07/23/2024) Active Problems Problem Noted Date Diagnosed Date History of stroke 06/04/2024 Overview (06/04/2024): 08/22/23 MRI "There is a chronic lacunar infarction within the left thalamus." Cerebral atrophy 09/30/2023 Spinal stenosis of cervical region 09/30/2023 Coronary artery disease invo lving [place] coronary artery of [place] heart without angina pectoris 09/30/2023 Pulmonary nodules [...] as of this encounter (statuses as of 07/23/2024) Resolved Problems Problem Noted Date Diagnosed Date [...] as of this encounter (statuses as of 07/23/2024) Immunizations Name Administration Dates Next Due COVID-19, [...] on file Not on file 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 Called Kwame- advised him that [...] Description 08/02/2024 8:20 AM EST Office Visit [facility] [address] [place] [phone] Martin Solorio MD [address] [place] [address] 08/10/2024 9:45 AM EST Pharmacy Pharmacy Hematology Oncology [facility] [address] [place] [address] [facility], [facility] Hem/Onc [address] [place] [address] 10/05/2024 12:30 PM EDT Telemedicine Care at Home [address] [place] [address] Kori Dumont PA-C [address] [place] [address] 02/14/2025 8:00 AM EDT Imaging Radiology [facility] [address] [facility] [address] [facility] [place] [address] Scheduled Procedures Name Priority Associated Diagnoses Date/Ti [...] this encounter Medical Devices Implanted Type Area Grader Green Meat Device Identifier Shelf Expiration Date Model / Serial / Lot Cover Athena Hole 24mm 421.528 - [id number] Implanted:Qty: 1 on 08/20/2021 by Joni Hand III, MD at [place] [facility] [place] Right: Head SYNTHES MAXILLOFACIAL 421.528 / / Plate Y Ti Lo Db 6h 21 421.517 - [id number] Implanted:Qty: 1 on 08/20/2021 by Joni Hand III, MD at [place] [facility] [place] Right: Head SYNTHES MAXILLOFACIAL 421.517 / / Screw Ti Lo Pro Sd 4mm 400.834 - [id number] Implanted:Qty: 10 on 08/20/2021 by Joni Hand III, MD at [place] [facility] [place] Right: Head SYNTHES MAXILLOFACIAL 400.834 / / Cement Hydroset Injectable 5cc - [id number] Implanted:Qty: 1 on 03/03/2024 by Joni Hand III, MD at [place] [facility] [place] Left: Head SUZANNA [id number] 09/19/2025 [id number] / / [id number] Cover Bur Hol Ti Lo 17 421.527 - [id number] Implanted:Qty: 1 on 03/03/2024 by Joni Hand III, MD at [place] [facility] [place] Left: Head SYNTHES MAXILLOFACIAL 421.527 / / Plate Ti Lo Pro Str 2h 421.502 - [id number] Implanted:Qty: 2 on 03/03/2024 by Joni Hand III, MD at [place] [facility] Left: Head SYNTHES MAXILLOFACIAL 421.502 / / Screw 4mm Ti Low Pro Sdrill - [id number] Implanted:Qty: 7 on 03/03/2024 by Joni Hand III, MD at [place] [facility] Left: Head SYNTHES MAXILLOFACIAL 400.834E / / [...] and were consensually agreed upon. Care Teams Squadron Worker Relationship Specialty Start Date End Date Martin Solorio MD PCP - General Family Medicine 02/20/21 documented as of this encounter
[2024-09-03] MEDS ORDERED: POLYETHYLENE (MIRALAX) 17 GM PACK PO PRN (16:44)
[2024-09-03] MEDS ORDERED: ONDANSETRON INJ 2 MG/ML 2 ML VIAL IV PRN (16:44)
[2024-09-03] MEDS ORDERED: MAGNESIUM HYDROXIDE SUSP 30 ML UDC PO PRN (16:44)
[2024-09-03] MEDS ORDERED: traMADol HCL 50 MG TABLET PO PRN (16:44)
[2024-09-03] MEDS ORDERED: NALOXONE HCL 0.4 MG/1 ML VIAL/CARP IV PRN (16:44)
[2024-09-03] MEDS ORDERED: bisacodyL 10 MG SUPP PR PRN (16:44)
--- NOTE | 2024-09-03 17:04 | Orthopedic Consultation ---
Date of Service September 03, 2024 Assessment & Plan (1) Contusion of right shoulder: (2) Acetabulum fracture, right: Imaging reviewed with Dr. Pollard. Recommend conservative management for these problems. For her shoulder, we will get a sling that she can wear for comfort, she can do range of motion as tolerated. For the hip, she can protect weight bear as tolerated, will need a walker. PT/OT wbat, range of motion as tolerated. History of Present Illness Reason for Consultation: . Requesting Physician: . Attending Physician: Rodrick Jarrell MD .Judy is a 64 year old patient admitted after a fall today, injuring her right shoulder and right hip. She had xrays of the shoulder and xray/ct scan of the right hip. She is complaining of right shoulder pain and right hip/groin pain. No other orthopedic complaints at this time. She has had multiple falls over the previous year and has multiple pelvis fractures. Allergies Allergy/AdvReac Type Severity Reaction Status Date / Time erythromycin base Allergy Unknown BROUGHT ON Verified 07/06/24 12:42 SEIZURES Macrolide Antibiotics Allergy Unknown Unknown Verified 07/06/24 12:42 Ketolide Antibiotics Allergy Unknown Unknown. Uncoded 07/06/24 12:42 On file / [facility]. Home Medications Medication Instructions Recorded Confirmed Type dabrafenib 75 mg capsule (Tafinlar) 75 mg PO AMHS 07/30/22 09/03/24 History multivitamin 1 tab PO QAM #30 tabs 04/28/24 09/03/24 Rx ondansetron HCl 8 mg tablet 8 mg PO BID PRN nausea #10 tabs 04/28/24 09/03/24 Rx paroxetine HCl 40 mg tablet 40 mg PO QAM #30 tabs 04/28/24 09/03/24 Rx triamcinolone acetonide 0.1 % 1 applic topical BID itching #15 04/28/24 09/03/24 Rx topical cream grams atorvastatin 20 mg tablet 20 mg PO QPM 07/06/24 09/03/24 History losartan 50 mg tablet 50 mg PO QAM 07/06/24 09/03/24 History tramadol 50 mg tablet 50 mg PO TID PRN Moderate Pain 07/06/24 09/03/24 History (Scale Score 5-6) trazodone 100 mg tablet 150 mg PO HS 07/06/24 09/03/24 History carbamazepine 200 mg 400 mg (2 x 200 mg) PO BID #120 07/12/24 09/03/24 Rx tablet,extended release,12 hr tabs cholecalciferol (vitamin D3) 25 25 mcg PO MOFR@0900 09/03/24 09/03/24 History mcg (1,000 unit) tablet levothyroxine 200 mcg tablet 200 mcg PO DAILY 09/03/24 09/03/24 History lorazepam 0.5 mg tablet 0.5 mg PO DAILY PRN anxiety 09/03/24 09/03/24 History trametinib 0.5 mg tablet (Mekinist) 1.5 mg PO DAILY 09/03/24 09/03/24 History Past Med/Surg History Problem List Fall Contusion of right shoulder (Acute) Left rib fracture (Acute) Closed fracture of right hip (Acute) Acetabulum fracture, right (Acute) Closed fracture of pubic ramus AMS (altered mental status) Fracture of left hip Pelvic ring fracture Weakness (Acute) Hypothyroidism Combined receptive and expressive aphasia Vasogenic edema (Acute) Memory changes Melanoma metastatic to brain (Chronic) Medical History Seizure disorder History of melanoma October 2017 --diag with superficial spreading melanoma of the left leg, [id number], Stage IIIc. 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 S/p re-excision and SLNB 12/26/2017 (-margins; 3 of 3 nodes involved) S/p nivolumab 02/04 - 04/08 S/p right parietal craniotomy for near total resection 08/20/2021 S/p Radiation therapy to brain mets, including post op bed; Aug -September 2021 S/p dabrafinib and trametinib 10/09 --dose reduced in mid 2021; ongoing Rx Jul 2022--SRS to left frontal lobe Aug 2023--s/p ALYSHA and bx of Left Frontal mass. Path-- brain parenchyma with reactive gliosis.Negative for malignancy. MRI feb 20, 2024--Parenchymal abnormality at the treatment site measuring 1.9 cm, not fully characterized. Surrounding vasogenic edema and mild mass effect, increased since pretreatment imaging. 03/03/2024--s/p L frontal craniotomy for resection ( Dr Hand) ; path showed Residual/recurrent metastatic melanoma Surgical History S/P craniotomy Dr. Yazan Crowe Neurosurgery 03/03/24 Left frontal craniotomy for tumor resection with vycor tube and dynamic retraction, use of brainlab artem ronavigation, use of neurophysiological monitoring (SSEP/MEP/motor language, subcortical stimulation) Status post right foot surgery History of knee replacement procedure of left knee History of partial hysterectomy H/O craniotomy History of back surgery History of brain surgery x2 Hx of cholecystectomy Family History Grandfather (Maternal) Cancer Breast cancer Sister Cancer Breast cancer Father Cancer Colon cancer Social History Smoking Status: Former smoker Tobacco Type: Cigarettes Cigarettes Per Day: 13; Second Hand Exposure: Yes; Do You Dip or Chew Tobacco: No; Tobacco Cessation Education Requested by Patient: No Hx Alcohol Use: No Hx Substance Use: No Preferred Language: Syriac Communication Ability: Effective Visual Impairment: No Limitations Hearing Ability: Normal Rug Inspector Helper Required: No Beliefs That Will Affect Care: None marital status: Current Living Situation: Spouse current occupational status: employed 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 Physical Exam . alert, NAD Right shoulder/arm: she is able to actively raise her shoulder to about 90 degrees. She reports painful range of motion. She has crepitation and limited passive motion of the shoulder. She tenderness around the elbow or wrist today. Right hip: Unable to actively lift her leg off the bed. I am able to passively lift her leg, flex and rotate her hip. She reports pain in the groin/thigh with passive motion. Results & Data Results & Data Laboratory Results . Diagnostic Findings .xrays of the right shoulder show no obvious fracture, or dislocation. She does have some glenohumeral degenerative changes. xrays and ct scan of the pelvis/right hip show a nondisplaced acetabular fracture, flattening of the femoral head with subchondral fracture, healing pubic rami fractures, right hip arthritis PG Care Time/CCT Total # of Minutes Spent Total Time Spent with Patient: Total time spent is greater than 50% in coordination of care (as documented) at patient's floor/unit and/or counseling patient: Supervising Physician Co-Signing Physician Notes The patient was independently seen and examined. I agree with the physician executive marketing assistant note. With regard to the shoulder, she can be weightbearing and range of motion as tolerated. Expect pain for 4 to 6 weeks. Should use a sling for comfort, as needed. The femoral head and acetabular fractures are minimally displaced and have occurred in an otherwise arthritic hip. The only reasonable means of treating the fractures surgically is with a total hip replacement. For that reason, I would recommend attempting nonsurgical management. She can be weightbearing and range of motion as pain allows. Significant displacement is not expected, but that would be addressed with a hip replacement. Will likely need evaluation and treatment with physical and Occupational Therapy to determine disposition. Would prefer that she follows up with Dr. Ortiz at discharge within 6 weeks of the injury. Coding Level of Care Code 76853 IN/OBS CONSULT LVL 3,45M Diagnoses Contusion of right shoulder S40.011A Encounter type: initial encounter Acetabulum fracture, right S32.401A Encounter type: initial encounter Fracture alignment: nondisplaced Fracture type: closed Sublocation of acetabulum: unspecified portion of acetabulum (1) Contusion of right shoulder Encounter type: initial encounter Qualified Code(s): S40.011A - Contusion of right shoulder, initial encounter (2) Acetabulum fracture, right Encounter type: initial encounter Fracture alignment: nondisplaced Fracture type: closed Sublocation of acetabulum: unspecified portion of acetabulum Qualified Code(s): S32.401A - Unspecified fracture of right acetabulum, initial encounter for closed fracture
--- NOTE | 2024-09-03 18:29 | XRay Report ---
Study: Right shoulder 2 views History: Pain Comparison: None Findings: There is no acute fracture or dislocation. Alignment is anatomic. Joint spaces are well maintained. There is no joint effusion or significant soft tissue swelling. Soft tissue mineralization seen about the shoulder joint laterally and superiorly, which may be degenerative or heterotopic. Bone mineralization is decreased. Impression: Scapular Y and axillary view, show no acute bony abnormality of the right shoulder Electronically signed by Dre David 09-03-2024 6:28 PM
[2024-09-03] MEDS: TRIAMCINOLONE ACET 0.1% CR 15 GM TUBE TOP SCH (20:15)
[2024-09-03] MEDS: carBAMazepine XR 200 MG TABCR PO SCH (20:15)
[2024-09-03] MEDS: ATORVASTATIN 20 MG TAB PO SCH (20:16)
[2024-09-03] MEDS: traZODone HCL 50 MG TAB PO SCH (20:16)
[2024-09-03] MEDS: oxyCODONE HCL IR 5 MG TAB (IMMEDIATE RELEASE) PO PRN (22:54)
[2024-09-04] MEDS: ACETAMINOPHEN 500 MG TAB PO SCH (01:08)
[2024-09-04] MEDS ORDERED: ceFAZolin 2000MG 2,000 MG/15 ML SYR IV SCH (06:00)
[2024-09-04] MEDS: LEVOTHYROXINE SODIUM 200 MCG TABLET PO SCH (07:10)
[2024-09-04 07:24] LABS: Hematocrit (blood only) 34.7 % (37.0-47.0); Hemoglobin 11.9 g/dl (12.0-16.0); Mean Corpuscular Hemoglobin 31.5 pg (25.0-34.0); Mean Corpuscular Hgb Conc 34.3 g/dL (32.0-36.0); Mean Corpuscular Volume 91.8 fL (80.0-100.0); Mean Platelet Volume 8.9 fL (9.4-12.4); Platelet Count 364 K/uL (130-400); RDW Coefficient of Variation 14.2 % (11.5-14.5); RDW Standard Deviation 47.4 fL (36.4-46.3); Red Blood Count 3.78 M/uL (4.20-5.40)
[2024-09-04 07:38] LABS: BUN Creatinine Ratio 20.3 (10-20); Creatinine Clr Calc Pharmacy 68.4 ml/min; Potassium 2.9 mmol/L (3.5-5.1)
[2024-09-04] MEDS: PARoxetine HCL 20 MG TAB PO SCH (07:55)
[2024-09-04] MEDS: LOSARTAN POTASSIUM 50 MG TAB PO SCH (07:56)
[2024-09-04] MEDS: MULTIVITAMIN TAB PO SCH (07:56)
[2024-09-04] MEDS: POTASSIUM CHLORIDE CRTAB 20 MEQ TABCR PO STA (08:48)
[2024-09-04] MEDS: POTASSIUM CHLORIDE 40 MEQ in SODIUM CHLORIDE 0.9% 1,000 ML IV SCH (08:55)
--- NOTE | 2024-09-04 11:24 | Hospitalist Progress Note ---
Date of Service September 04, 2024 Assessment & Plan (1) Fall: (2) Closed fracture of right hip: (3) Acetabulum fracture, right: (4) Contusion of right shoulder: (5) Left rib fracture: (6) Hypothyroidism: (7) Seizure disorder: (8) Melanoma metastatic to brain: (9) Memory changes: Plan This is a 64-year-old female with PMH of melanoma with metastatic disease of the brain (dx 2021, original site left leg, s/p XRT, s/p L frontal craniotomy at [facility] 03/13) complicated by seizure disorder, hypertension, CAD, cerebral atrophy, mood disorder and other medical problems listed below who presents from home after a fall at home and was found to have acute appearing nondisplaced right acetabular roof fracture (new since CT of July 06, 2024) as well as interval development of a subchondral fracture within the right femoral head with flattening of the femoral head since CT of July 06, 2024. Labs and imaging reviewed, WBC fairly wnl. RFT fairly wnl. ALP elevated at baseline. CT Head and CT C spine: no acute finding CXR: Acute mildly displaced lateral left sixth rib fracture. No pneumothorax Hip Imaging: acute non displaced right acetabular roof fracture. Subchondral fracture w/in right femoral head. Subacute b/l pubic ring fractures. Right acetabulum fracture Conservative mgmt per ortho surgery. Weight bear as tolerated. Will need a walker, PT/OT to evaluate Scheduled Tylenol for pain. Avoid narcotics as able Prescribed tramadol at home but should be discontinued as it likely diminishes effect of carbamazepine Hypokalemia Potassium 2.9 this AM. Repleted, repeating BMP this afternoon Ambulatory dysfunction Uses walker at baseline; unsteady since pelvic fracture in June Fall precautions, PT/OT as above Contusion of R shoulder Recommend a sling to wear for comfort, ROM as tolerated Melanoma with mets to brain Dx 2021, original site left leg, s/p XRT, s/p L frontal craniotomy at [facility] 03/13 Forgetful with waxing and waning mentation since February, per A&O to person only on admission to bring in dabrafenib and Mekinist from home Seizure disorder Remote history. Continue carbamazepine HTN Hold losartan given hypotension today Mood disorder Continue paroxetine, trazodone HS, holding Ativan to decrease fall risk Hypothyroidism Levothyroxine increased to 200 mcg last week per PCP. Follow up TFT in 2 months DVT Ppx: SCDs for now Code status: DNR/DNI per discussion with patient PCP: Dr. Solorio Dispo: admit to med/surg Lengthy discussion with Kwame at bedside. Patient expresses she is discouraged about her overall quality of life/health over the past few months. Recommended palliative care consult to reiterate goals of care as well as pain management options given frailty. Family agreeable. Patient seen in collaboration with Dr. Moreno. Please see addendum. I spent a total of 50 minutes coordinating, documenting, and providing care for this patient excluding time spent in the performance of separately billed services or time spent by another provider/QHP. Admission and Anticipated Discharge Date Admission Date: September 03, 2024 Supervising Physician Co-Signing Physician Notes Pt seen and examined by me, care coordinated w/ Lili. MARGOT Ortiz, pls refer to her note for further detail. Pt seen lying in bed in NAD, arm in a sling. awake and answering appropriately. OT present at the bedside and pt hesitant to work w/ OT. Had a long discussion about participation w/ PT/OT. Pt in agreement w/ plan. MD Josh Subjective Patient seen and examined in 386 bed 1. Comfortable at rest, right arm in sling. No pain or paresthesias in right upper extremity or right lower extremity. Tolerated diet this morning. Feels discouraged about overall health condition. Intermittently confused, at baseline. to visit later this morning. No fever, chills, chest pain, shortness of breath, nausea, vomiting, abdominal pain, dysuria, diarrhea or constipation. Review of Systems Review of Systems: Limited ROS per HPI Physical Exam Physical Exam: General Appearance: WD/WN, vitals as above, NAD, sitting up in bed, appears chronically ill, poor insight, scattered ecchymosis on limbs Head: normocephalic, atraumatic Eyes: normal inspection, PERRL, conjunctivae normal, anicteric sclerae ENT: external ear and nose normal, oropharynx dry mucous membranes Neck: normal visual inspection Respiratory: normal respiratory effort, lungs clear to auscultation. No accessory muscle use Cardiovascular: regular rate, rhythm, normal peripheral pulses, no BLE edema Chest: normal inspection of chest Abdomen/GI: normal bowel sounds, soft, nontender, no hepatosplenomegaly Extremities/Musculoskeletal: R shoulder in sling. R hip without TTP. Distal RLE NVI. No cyanosis or clubbing, extremities motor strength 5/5 Neurologic: PERRL, EOMI, accommodation nl, no face palsy, no dysarthria, CN's II-XI intact bilaterally and moves all extremities Psychiatric: A+Ox person Skin: no rashes, normal color, warm/dry Results & Data Results & Data Vital Signs (Past 12 Hours) Vital Signs Temp Pulse Resp BP Pulse Ox O2 Del Method 09/04/24 07:59 36.6 C 86 20 99/70 L 95 Room Air 09/04/24 07:50 83 20 122/75 92 Room Air Laboratory Results Short CBC 09/04/24 Range/Units 06:46 WBC 6.00 (4.8-10.8) K/ul Hgb 11.9 L D (12.0-16.0) g/dl Hct 34.7 L (37.0-47.0) % Plt Count 364 (130-400) K/uL BMP 09/04/24 06:46 Sodium 136 Potassium 2.9 L Chloride 99 Carbon Dioxide 28 BUN 13 Creatinine 0.64 Glucose 98 Calcium 8.0 L Urine 09/03/24 Range/Units 15:18 Urine Color Dark Yellow Urine Appearance Clear (Clear) Urine pH 6.5 (4.5-7.5) Ur Specific [place] 1.023 (1.000-1.030) Urine Protein 2+ H (Negative) Urine Glucose (UA) Negative (Negative) Diagnostic Findings Cervical Spine CT 09/03/24 11:02 CT cervical spine wo con CT DOSE: 1203.13 mGy.cm CLINICAL HISTORY: 64 years-old Female with fall. Acute neck pain status post fall COMPARISON: CT head on Friday, CT cervical spine 02/26/2024 TECHNIQUE: Multiple axial CT images of the cervical spine were obtained without contrast. A dose lowering technique was utilized adhering to the principles of ALARA. FINDINGS: Anterior plate and screw fusion with discectomy changes redemonstrated at the C3-C7 levels. Severe intervertebral disc space narrowing again noted at C7-T1 and T1-T2. Unchanged grade 1 anterolisthesis of C3 on C4. No acute fracture or subluxation identified. Severe degeneration of the temporomandibular joints. Trace left mastoid effusion. The cervical soft tissues appear unremarkable. No pneumothorax. 3 mm solid nodule noted within the left lung apex on image 89 series 7. Unremarkable soft tissues. IMPRESSION: No acute cervical spine fracture or subluxation. ACT 112: Negative or not required by law. The above report was generated using voice recognition software. It may contain grammatical, syntax or spelling errors. Electronically signed by: Dre Clark M.D. 09/03/2024 12:24 PM Chest X-Ray 09/03/24 11:02 XR chest 1V portable CLINICAL HISTORY: fall COMPARISON STUDY: Chest CT February 26, 2024. Chest radiograph July 06, 2024. FINDINGS: Postoperative findings within the spine are incidentally noted. There is no pneumothorax or pleural effusion. There is no consolidation or evidence for pulmonary edema. Cardiomediastinal silhouette is unremarkable. An acute appearing mildly displaced lateral left sixth rib fracture is new since radiographs of July 06, 2024. IMPRESSION: 1. No pneumothorax. 2. Acute mildly displaced lateral left sixth rib fracture. ACT 112: Negative or not required by law. Electronically signed by: Tc Umaña M.D. 09/03/2024 11:[address] 09/03/24 11:02 CT OF THE HEAD WITHOUT CONTRAST CLINICAL HISTORY: Fall. History of metastatic disease. COMPARISON STUDY: MRI of the brain and head CT July 06, 2024. TECHNIQUE: Helical axial images of the head were obtained without IV contrast. Automated exposure control was utilized for the study. A dose lowering technique was utilized adhering to the principles of ALARA. FINDINGS: Postoperative findings following craniotomies are unchanged. Hypodensities within the left frontal and right parietal lobes are unchanged. Ventricular system is unremarkable. Basal cisterns are patent. There are no extra axial collections. No calvarial fractures are present. There are no findings to suggest acute dural sinus thrombosis or acute territorial infarct. IMPRESSION: 1. No acute intracranial findings. 2. No change in appearance of the brain. Stable postoperative findings. 3. No calvarial fractures. ACT 112: Negative or not required by law. Electronically signed by: Tc Umaña M.D. 09/03/2024 12:09 PM Hip/Pelvis X-Ray 09/03/24 11:02 XR hip RT 2V w pelvis HISTORY: 64 years-old Female fall acute pelvic pain status post fall COMPARISON: CT pelvis 07/06/2024 TECHNIQUE: AP view of the pelvis with 2 views of the right hip FINDINGS: Demineralized appearance of the bones. [id number] osteoarthritis of the hips. Moderate flattening of the superior and superolateral aspects of the right femoral head represents a change from the prior study. Healing subacute and comminuted pelvic ring fractures demonstrate unchanged alignment from the prior study. No acute displaced fracture or dislocation. IMPRESSION: 1. Articular flattening of the right femoral head represents a change from the 07/06/[address] of the pelvis recommended. 2. Unchanged alignment with mild interval incomplete bony healing of the subacute and comminuted pelvic ring fractures which are unchanged in alignment from the prior. ACT 112: Negative or not required by law. The above report was generated using voice recognition software. It may contain grammatical, syntax or spelling errors. Electronically signed by: Dre Clark M.D. 09/03/2024 11:56 AM Shoulder X-Ray 09/03/24 11:02 XR shoulder RT min 2V routine CLINICAL HISTORY: fall COMPARISON: Chest radiograph April 11, 2024. FINDINGS: Postoperative findings within the spine are incidentally noted. Negrito cific densities within the joint space are present. There is a curvilinear ossific density along the glenoid. Glenohumeral alignment is difficult to assess on this examination. AC joint is intact. There are moderate degenerative changes within the right shoulder. No definite acute fractures. IMPRESSION: 1. Glenohumeral alignment difficult to assess on this exam. Anterior shoulder dislocation would be difficult to completely excluded although findings likely technical. A scapular Y view is recommended for further evaluation. 2. Curvilinear ossific density along the glenoid. This is likely chronic although a fracture fragment could appear similar. ACT 112: Negative or not required by law. Electronically signed by: Tc Umaña M.D. 09/03/2024 12:[address] 09/03/24 11:38 CT hip RT wo con CLINICAL HISTORY: Right hip pain following fall. COMPARISON STUDY: Pelvis CT July 06, 2024. Right hip radiographs performed earlier today TECHNIQUE: Axial images of the right hip were obtained without IV contrast. Sagittal and coronal reformats were viewed. Automated exposure control was utilized for the study. A dose lowering technique was utilized adhering to the principles of ALARA. FINDINGS: Bilateral pubic ring fractures were present on CT of July 06, 2024. Associated callus formation has increased. Ossific material within the right adductor musculature has increased. This favors examination of callus formation and myositis ossificans. An acute appearing nondisplaced right acetabular roof fracture has developed since CT of July 06, 2024. In addition, there has been interval development of flattening of the right femoral head with a right femoral head subchondral fracture which is minimally depressed. There is moderate osteoarthritis of the right hip. No suspicious osseous lesions are identified. Multifocal ossific/calcific material within the right hip joint is now present. IMPRESSION: 1. Acute appearing nondisplaced right acetabular roof fracture. This is new since CT of July 06, 2024. 2. Interval development of a subchondral fracture within the right femoral head with flattening of the femoral head since CT of July 06, 2024. 3. Redemonstration of subacute bilateral pubic ring fractures with extensive callus formation and possible associated myositis ossificans within the adductor muscles. 4. Moderate right hip osteoarthritis. Interval development of multifocal calcific/ossific material within the right hip joint. ACT 112: Negative or not required by law. Electronically signed by: Tc Umaña M.D. 09/03/2024 12:23 PM Shoulder X-Ray 09/03/24 17:03 Study: Right shoulder 2 views History: Pain Comparison: None Findings: There is no acute fracture or dislocation. Alignment is anatomic. Joint spaces are well maintained. There is no joint effusion or significant soft tissue swelling. Soft tissue mineralization seen about the shoulder joint laterally and superiorly, which may be degenerative or heterotopic. Bone mineralization is decreased. Impression: Scapular Y and axillary view, show no acute bony abnormality of the right shoulder Electronically signed by Dre David 09-03-2024 6:28 PM (1) Fall Encounter type: initial encounter Qualified Code(s): W19.XXXA - Unspecified fall, initial encounter (2) Closed fracture of right hip Encounter type: initial encounter Qualified Code(s): S72.001A - Fracture of unspecified part of neck of right femur, initial encounter for closed fracture (3) Acetabulum fracture, right Encounter type: initial encounter Fracture alignment: nondisplaced Fracture type: closed Sublocation of acetabulum: unspecified portion of acetabulum Qualified Code(s): S32.401A - Unspecified fracture of right acetabulum, initial encounter for closed fracture (4) Contusion of right shoulder Encounter type: initial encounter Qualified Code(s): S40.011A - Contusion of right shoulder, initial encounter (5) Left rib fracture Encounter type: initial encounter Fracture type: closed Rib fracture type: single rib Qualified Code(s): S22.32XA - Fracture of one rib, left side, initial encounter for closed fracture
[2024-09-04 15:47] LABS: Calcium 7.8 mg/dl (8.6-10.3); Potassium 3.8 mmol/L (3.5-5.1)
[2024-09-04] MEDS: TRAMETINIB DIMETHYL SULFOXIDE PO SCH (16:11)
[2024-09-04] MEDS: DABRAFENIB MESYLATE PO SCH (19:46)
[2024-09-05 07:48] LABS: Hematocrit (blood only) 35.8 % (37.0-47.0); Hemoglobin 11.9 g/dl (12.0-16.0); Mean Corpuscular Hemoglobin 31.3 pg (25.0-34.0); Mean Corpuscular Hgb Conc 33.2 g/dL (32.0-36.0); Mean Corpuscular Volume 94.2 fL (80.0-100.0); Mean Platelet Volume 8.5 fL (9.4-12.4); Platelet Count 376 K/uL (130-400); RDW Coefficient of Variation 14.5 % (11.5-14.5); RDW Standard Deviation 49.9 fL (36.4-46.3); White Blood Count 5.96 K/ul (4.8-10.8)
[2024-09-05 08:13] LABS: BUN Creatinine Ratio 24.5 (10-20); Calcium 8.2 mg/dl (8.6-10.3); Creatinine Clr Calc Pharmacy 82.6 ml/min; Magnesium 1.7 mg/dl (1.7-2.4); Phosphorus 2.1 mg/dl (2.5-4.9)
[2024-09-05] MEDS ORDERED: POTASSIUM PHOS 3 MMOL/1 ML INFUSION IV STA (08:16)
[2024-09-05] MEDS: POTASSIUM PHOSPHATE 6 MMOL in SODIUM CHLORIDE 0.9% 100 ML IV ONE (09:08)
[2024-09-05] MEDS: MAGNESIUM OXIDE 400 MG TAB PO SCH (09:39)
--- NOTE | 2024-09-05 12:27 | Hospitalist Progress Note ---
Date of Service September 05, 2024 Assessment & Plan (1) Fall: (2) Closed fracture of right hip: (3) Acetabulum fracture, right: (4) Contusion of right shoulder: (5) Left rib fracture: (6) Hypothyroidism: (7) Seizure disorder: (8) Melanoma metastatic to brain: (9) Memory changes: Plan This is a 64-year-old female with PMH of melanoma with metastatic disease of the brain (dx 2021, original site left leg, s/p XRT, s/p L frontal craniotomy at [facility] [place] 03/13) complicated by seizure disorder, hypertension, CAD, cerebral atrophy, mood disorder and other medical problems listed below who presents from home after a fall at home and was found to have acute appearing nondisplaced right acetabular roof fracture (new since CT of July 06, 2024) as well as interval development of a subchondral fracture within the right femoral head with flattening of the femoral head since CT of July 06, 2024. Labs and imaging reviewed, WBC fairly wnl CT Head and CT C spine: no acute finding CXR: Acute mildly displaced lateral left sixth rib fracture. No pneumothorax Hip Imaging: acute non displaced right acetabular roof fracture. Subchondral fracture w/in right femoral head. Subacute b/l pubic ring fractures Right acetabulum fracture Conservative mgmt per ortho surgery. Weight bear as tolerated. Will need a walker, PT/OT evaluated - recommend rehab Pain has been managed with scheduled Tylenol for pain. Avoid narcotics as able Prescribed tramadol at home but it has been discontinued as it likely diminishes effect of carbamazepine - discussed with family Patient frustrated with recurrent falls in last 2 months, ongoing cancer tx - routine palliative care consult Hypokalemia Replaced and WNL Ambulatory dysfunction Uses walker at baseline; unsteady since pelvic fracture in June Fall precautions, PT/OT as above Contusion of R shoulder Recommend a sling to wear for comfort, ROM as tolerated Melanoma with mets to brain Dx 2021, original site left leg, s/p XRT, s/p L frontal craniotomy at [facility] [place] 03/13 Forgetful with waxing and waning mentation since February, per . At baseline brought dabrafenib and Mekinist from home Seizure disorder Remote history. Continue carbamazepine HTN Continue to hold losartan for now given hypotension Mood disorder Continue paroxetine, trazodone HS, holding Ativan to decrease fall risk Hypothyroidism Levothyroxine increased to 200 mcg last week per PCP. Follow up TFT in 2 months DVT Ppx: SCDs for now Code status: DNR/DNI per discussion with patient PCP: Dr. Solorio Dispo: admit to med/surg I spent a total of 40 minutes coordinating, documenting, and providing care for this patient excluding time spent in the performance of separately billed services or time spent by another provider/QHP. Admission and Anticipated Discharge Date Admission Date: September 03, 2024 Supervising Physician Co-Signing Physician Notes Pt seen and examined by me, care coordinated w/ Lili. MARGOT Ortiz, pls refer to her note for further detail. Pt seen lying in bed in NAD, arm in a sling. awake and answering appropriately. Denies any pain or discomfort , also specifically denies chest pain or shortness of breath. Electrolytes replaced. Will recheck tmrw as well. Seen by orthopedics. Palliative med also consulted to see tmrw. CM involved in DC planning. MD Josh I spent a total of 15 minutes coordinating, documenting, and providing care for this patient excluding time spend in the performance of separately billed services or time spent by another provider / QHP. Subjective Patient seen and examined in 386-1. Comfortable at rest, right arm in sling. No pain or paresthesias in right upper extremity or right lower extremity. Ate her full breakfast and is about to get bed back with [employer]. Feels discouraged about overall health condition. Poor insight, at baseline. No fever, chills, chest pain, shortness of breath, nausea, vomiting, abdominal pain, dysuria, diarrhea or constipation. Review of Systems Review of Systems: Limited ROS per HPI Physical Exam Physical Exam: General Appearance: WD/WN, vitals as above, sitting up in bed, appears chronically ill, poor insight, scattered ecchymosis on limbs Head: normocephalic, atraumatic Eyes: normal inspection Respiratory: normal respiratory effort, lungs clear to auscultation. No accessory muscle use Cardiovascular: regular rate, rhythm, normal peripheral pulses, no BLE edema Chest: normal inspection of chest Abdomen/GI: normal bowel sounds, soft, nontender Extremities/Musculoskeletal: R shoulder in sling. R hip without TTP. Distal RLE NVI. No cyanosis or clubbing, extremities motor strength 5/5 Neurologic: PERRL, CN's II-XI intact bilaterally and moves all extremities Psychiatric: A+Ox person & place, flat affect Skin: no rashes, normal color, warm/dry Results & Data Results & Data Vital Signs (Past 12 Hours) Vital Signs Temp Pulse Resp BP Pulse Ox Pulse Ox O2 Del Method 09/05/24 11:34 36.5 C 80 16 119/56 L 96 Room Air 09/05/24 07:56 36.3 C L 72 14 152/80 H 98 Room Air 09/05/24 07:20 Room Air 09/05/24 03:35 95 O2 Del Method 09/05/24 11:34 09/05/24 07:56 09/05/24 07:20 09/05/24 03:35 Room Air Laboratory Results Short CBC 09/05/24 Range/Units 07:24 WBC 5.96 (4.8-10.8) K/ul Hgb 11.9 L (12.0-16.0) g/dl Hct 35.8 L (37.0-47.0) % Plt Count 376 (130-400) K/uL BMP 09/04/24 09/05/24 15:12 07:24 Sodium 135 L 138 Potassium 3.8 D 4.0 Chloride 103 107 Carbon Dioxide 29 30 BUN 17 13 Creatinine 0.81 0.53 L Glucose 120 H 95 Calcium 7.8 L 8.2 L Diagnostic Findings Cervical Spine CT 09/03/24 11:02 CT cervical spine wo con CT DOSE: 1203.13 mGy.cm CLINICAL HISTORY: 64 years-old Female with fall. Acute neck pain status post fall COMPARISON: CT head on Friday, CT cervical spine 02/26/2024 TECHNIQUE: Multiple axial CT images of the cervical spine were obtained without contrast. A dose lowering technique was utilized adhering to the principles of ALARA. FINDINGS: Anterior plate and screw fusion with discectomy changes redemonstrated at the C3-C7 levels. Severe intervertebral disc space narrowing again noted at C7-T1 and T1-T2. Unchanged grade 1 anterolisthesis of C3 on C4. No acute fracture or subluxation identified. Severe degeneration of the temporomandibular joints. Trace left mastoid effusion. The cervical soft tissues appear unremarkable. No pneumothorax. 3 mm solid nodule noted within the left lung apex on image 89 series 7. Unremarkable soft tissues. IMPRESSION: No acute cervical spine fracture or subluxation. ACT 112: Negative or not required by law. The above report was generated using voice recognition software. It may contain grammatical, syntax or spelling errors. Electronically signed by: Dre Clark M.D. 09/03/2024 12:24 PM Chest X-Ray 09/03/24 11:02 XR chest 1V portable CLINICAL HISTORY: fall COMPARISON STUDY: Chest CT February 26, 2024. Chest radiograph July 06, 2024. FINDINGS: Postoperative findings within the spine are incidentally noted. There is no pneumothorax or pleural effusion. There is no consolidation or evidence for pulmonary edema. Cardiomediastinal silhouette is unremarkable. An acute appearing mildly displaced lateral left sixth rib fracture is new since radiographs of July 06, 2024. IMPRESSION: 1. No pneumothorax. 2. Acute mildly displaced lateral left sixth rib fracture. ACT 112: Negative or not required by law. Electronically signed by: Tc Umaña M.D. 09/03/2024 11:[address] 09/03/24 11:02 CT OF THE HEAD WITHOUT CONTRAST CLINICAL HISTORY: Fall. History of metastatic disease. COMPARISON STUDY: MRI of the brain and head CT July 06, 2024. TECHNIQUE: Helical axial images of the head were obtained without IV contrast. Automated exposure control was utilized for the study. A dose lowering technique was utilized adhering to the principles of ALARA. FINDINGS: Postoperative findings following craniotomies are unchanged. Hypodensities within the left frontal and right parietal lobes are unchanged. Ventricular system is unremarkable. Basal cisterns are patent. There are no extra axial collections. No calvarial fractures are present. There are no findings to suggest acute dural sinus thrombosis or acute territorial infarct. IMPRESSION: 1. No acute intracranial findings. 2. No change in appearance of the brain. Stable postoperative findings. 3. No calvarial fractures. ACT 112: Negative or not required by law. Electronically signed by: Tc Umaña M.D. 09/03/2024 12:09 PM Hip/Pelvis X-Ray 09/03/24 11:02 XR hip RT 2V w pelvis HISTORY: 64 years-old Female fall acute pelvic pain status post fall COMPARISON: CT pelvis 07/06/2024 TECHNIQUE: AP view of the pelvis with 2 views of the right hip FINDINGS: Demineralized appearance of the bones. [id number] osteoarthritis of the hips. Moderate flattening of the superior and superolateral aspects of the right femoral head represents a change from the prior study. Healing subacute and comminuted pelvic ring fractures demonstrate unchanged alignment from the prior study. No acute displaced fracture or dislocation. IMPRESSION: 1. Articular flattening of the right femoral head represents a change from the 07/06/[address] of the pelvis recommended. 2. Unchanged alignment with mild interval incomplete bony healing of the subacute and comminuted pelvic ring fractures which are unchanged in alignment from the prior. ACT 112: Negative or not required by law. The above report was generated using voice recognition software. It may contain grammatical, syntax or spelling errors. Electronically signed by: Dre Clark M.D. 09/03/2024 11:56 AM Shoulder X-Ray 09/03/24 11:02 XR shoulder RT min 2V routine CLINICAL HISTORY: fall COMPARISON: Chest radiograph April 11, 2024. FINDINGS: Postoperative findings within the spine are incidentally noted. Calcific densities within the joint space are present. There is a curvilinear ossific density along the glenoid. Glenohumeral alignment is difficult to assess on this examination. AC joint is intact. There are moderate degenerative changes within the right shoulder. No definite acute fractures. IMPRESSION: 1. Glenohumeral alignment difficult to assess on this exam. Anterior shoulder dislocation would be difficult to completely excluded although findings likely technical. A scapular Y view is recommended for further evaluation. 2. Curvilinear ossific density along the glenoid. This is likely chronic although a fracture fragment could appear similar. ACT 112: Negative or not required by law. Electronically signed by: Tc Umaña M.D. 09/03/2024 12:[address] 09/03/24 11:38 CT hip RT wo con CLINICAL HISTORY: Right hip pain following fall. COMPARISON STUDY: Pelvis CT July 06, 2024. Right hip radiographs performed earlier today TECHNIQUE: Axial images of the right hip were obtained without IV contrast. Sagittal and coronal reformats were viewed. Automated exposure control was utilized for the study. A dose lowering technique was utilized adhering to the principles of ALARA. FINDINGS: Bilateral pubic ring fractures were present on CT of July 06, 2024. Associated callus formation has increased. Ossific material within the right adductor musculature has increased. This favors examination of callus formation and myositis ossificans. An acute appearing nondisplaced right acetabular roof fracture has developed since CT of July 06, 2024. In addition, there has been interval development of flattening of the right femoral head with a right femoral head subchondral fracture which is minimally depressed. There is moderate osteoarthritis of the right hip. No suspicious osseous lesions are identified. Multifocal ossific/calcific material within the right hip joint is now present. IMPRESSION: 1. Acute appearing nondisplaced right acetabular roof fracture. This is new since CT of July 06, 2024. 2. Interval development of a subchondral fracture within the right femoral head with flattening of the femoral head since CT of July 06, 2024. 3. Redemonstration of subacute bilateral pubic ring fractures with extensive callus formation and possible associated myositis ossificans within the adductor muscles. 4. Moderate right hip osteoarthritis. Interval development of multifocal calcific/ossific material within the right hip joint. ACT 112: Negative or not required by law. Electronically signed by: Tc Umaña M.D. 09/03/2024 12:23 PM Shoulder X-Ray 09/03/24 17:03 Study: Right shoulder 2 views History: Pain Comparison: None Findings: There is no acute fracture or dislocation. Alignment is anatomic. Joint spaces are well maintained. There is no joint effusion or significant soft tissue swelling. Soft tissue mineralization seen about the shoulder joint laterally and superiorly, which may be degenerative or heterotopic. Bone mineralization is decreased. Impression: Scapular Y and axillary view, show no acute bony abnormality of the right shoulder Electronically signed by Dre David 09-03-2024 6:28 PM (1) Fall Encounter type: initial encounter Qualified Code(s): W19.XXXA - Unspecified fall, initial encounter (2) Closed fracture of right hip Encounter type: initial encounter Qualified Code(s): S72.001A - Fracture of unspecified part of neck of right femur, initial encounter for closed fracture (3) Acetabulum fracture, right Encounter type: initial encounter Fracture alignment: nondisplaced Fracture type: closed Sublocation of acetabulum: unspecified portion of acetabulum Qualified Code(s): S32.401A - Unspecified fracture of right acetabulum, initial encounter for closed fracture (4) Contusion of right shoulder Encounter type: initial encounter Qualified Code(s): S40.011A - Contusion of right shoulder, initial encounter (5) Left rib fracture Encounter type: initial encounter Fracture type: closed Rib fracture type: single rib Qualified Code(s): S22.32XA - Fracture of one rib, left side, initial encounter for closed fracture
--- NOTE | 2024-09-06 08:03 | Hospitalist Progress Note ---
Date of Service September 06, 2024 Assessment & Plan (1) Fall: (2) Closed fracture of right hip: (3) Acetabulum fracture, right: (4) Contusion of right shoulder: (5) Left rib fracture: (6) Hypothyroidism: (7) Seizure disorder: (8) Melanoma metastatic to brain: (9) Memory changes: Plan This is a 64-year-old female with PMH of melanoma with metastatic disease of the brain (dx 2021, original site left leg, s/p XRT, s/p L frontal craniotomy at [facility] [place] 03/13) complicated by seizure disorder, hypertension, CAD, cerebral atrophy, mood disorder and other medical problems listed below who presents from home after a fall at home and was found to have acute appearing nondisplaced right acetabular roof fracture (new since CT of July 06, 2024) as well as interval development of a subchondral fracture within the right femoral head with flattening of the femoral head since CT of July 06, 2024. Labs and imaging reviewed, WBC fairly wnl CT Head and CT C spine: no acute finding CXR: Acute mildly displaced lateral left sixth rib fracture. No pneumothorax Hip Imaging: acute non displaced right acetabular roof fracture. Subchondral fracture w/in right femoral head. Subacute b/l pubic ring fractures Right acetabulum fracture Conservative mgmt per ortho surgery. Weight bear as tolerated. Will need a walker, PT/OT evaluated - recommend rehab Pain has been managed with scheduled Tylenol for pain. Avoid narcotics as able Prescribed tramadol at home but it has been discontinued as it likely diminishes effect of carbamazepine - discussed with family Patient frustrated with recurrent falls in last 2 months, ongoing cancer tx - routine palliative care consult Hypokalemia Replaced and WNL Hypomagnesemia: repleted, will repeat in a.m. Ambulatory dysfunction Uses walker at baseline; unsteady since pelvic fracture in June Fall precautions, PT/OT as above Contusion of R shoulder Recommend a sling to wear for comfort, ROM as tolerated Melanoma with mets to brain Dx 2021, original site left leg, s/p XRT, s/p L frontal craniotomy at [facility] [place] 03/13 Forgetful with waxing and waning mentation since February, per . At baseline brought dabrafenib and Mekinist from home Seizure disorder Remote history. Continue carbamazepine HTN Continue to hold losartan for now given hypotension Mood disorder Continue paroxetine, trazodone HS, holding Ativan to decrease fall risk Hypothyroidism Levothyroxine increased to 200 mcg last week per PCP. Follow up TFT in 2 months DVT Ppx: SCDs for now Code status: DNR/DNI per discussion with patient PCP: Dr. Solorio Dispo: admit to med/surg I spent a total of 35 minutes coordinating, documenting, and providing care for this patient excluding time spent in the performance of separately billed services or time spent by another provider/QHP. Pt was seen and examined in collaboration with Dr. Moreno, please see addendum Admission and Anticipated Discharge Date Admission Date: September 03, 2024 Supervising Physician Co-Signing Physician Notes Pt seen and examined by me, care coordinated w/ BMARGOT Hollins, pls refer to her note for further detail. Pt seen lying in bed in NAD, arm in a sling. awake and answering appropriately. Denies any pain or discomfort , also specifically denies chest pain or shortness of breath. Electrolytes replaced. Will recheck tmrw as well. Seen by orthopedics. Palliative med also consulted. CM involved in DC planning. MD Josh I spent a total of 10 minutes coordinating, documenting, and providing care for this patient excluding time spend in the performance of separately billed services or time spent by another provider / QHP. Subjective Pt endorses no concerns. She states she is still hungry. Denies f/c/s, chest pain, sob, n/v. She would like more to eat for breakfast. Review of Systems Review of Systems: All systems reviewed & are unremarkable except as noted in HPI & below Physical Exam Physical Exam: Gen: WD/WN, NAD, A&O x3 HEENT: Normocephalic, atraumatic, conjunctivae moist, sclerae anicteric, mucous membranes moist. Lung: Clear to Auscultation bilaterally, no wheezes/rales/rhonchi Heart: Regular rate, regular rhythm, 1/6 АННА noted precordially, no rubs, or gallops Abdomen: Soft, NT, ND +BS x 4 Extremities: No edema Skin: Warm, no rash, negative turgor. Results & Data Results & Data Vital Signs (Past 12 Hours) Vital Signs Temp Pulse Resp BP Pulse Ox Pulse Ox O2 Del Method 09/06/24 06:15 96 09/06/24 02:15 96 09/05/24 20:50 Room Air 09/05/24 20:50 96 09/05/24 20:28 37.1 C 79 12 114/72 96 Room Air O2 Del Method 09/06/24 06:15 Room Air 09/06/24 02:15 Room Air 09/05/24 20:50 09/05/24 20:50 Room Air 09/05/24 20:28 Laboratory Results Short CBC 09/06/24 Range/Units 07:42 WBC 10.08 (4.8-10.8) K/ul Hgb 12.0 (12.0-16.0) g/dl Hct 36.8 L (37.0-47.0) % Plt Count 446 H (130-400) K/uL BMP 09/06/24 07:42 Sodium 134 L Potassium 4.5 Chloride 104 Carbon Dioxide 29 BUN 19 Creatinine 0.66 Glucose 97 Calcium 8.4 L I have independently reviewed and interpreted patient's cbc, bmp, mag Medications Administered Current Inpatient Medications Acetaminophen (Acetaminophen 500 Mg Tab) 1,000 mg PO Q8H PORTER Stop: 10/04/24 00:00 Last Admin: 09/06/24 08:12 Dose: 1,000 mg Atorvastatin Calcium (Atorvastatin 20 Mg Tab) 20 mg PO QPM [facility]TER Stop: 10/03/24 20:59 Last Admin: 09/05/24 20:49 Dose: 20 mg Bisacodyl (Bisacodyl 10 Mg Supp) 10 mg [place] DAILY PRN PRN Reason: Constipation Stop: 10/03/24 16:43 Carbamazepine (Carbamazepine Xr 200 Mg Tabcr) 400 mg PO BID PORTER Stop: 10/03/24 20:59 Last Admin: 09/06/24 08:12 Dose: 400 mg Dabrafenib (Dabrafenib Mesylate) 1 each PO BID [facility]TER Stop: 10/04/24 20:59 Last Admin: 09/06/24 08:13 Dose: 1 each Levothyroxine Sodium (Levothyroxine Sodium 200 Mcg Tablet) 200 mcg PO DAILYBB [facility] Stop: 10/04/24 06:29 Last Admin: 09/06/24 05:49 Dose: 200 mcg Losartan Potassium (Losartan Potassium 50 Mg Tab) 50 mg PO QAM [facility] Stop: 10/04/24 08:59 Last Admin: 09/04/24 07:56 Dose: 50 mg Magnesium Hydroxide (Magnesium Hydroxide Susp 30 Ml Udc) 30 ml PO DAILY PRN PRN Reason: Constipation Stop: 10/03/24 16:43 Magnesium Oxide (Magnesium Oxide 400 Mg Tab) 400 mg PO QAM [facility] Stop: 10/05/24 08:59 Last Admin: 09/06/24 08:14 Dose: 400 mg Multivitamins (Multivitamin Tab) 1 tab PO QAM [facility] Stop: 10/04/24 08:59 Last Admin: 09/06/24 08:14 Dose: 1 tab Naloxone HCl (Naloxone Hcl 0.4 Mg/1 Ml Vial/Carp) 0.1 mg IV UD PRN PRN Reason: Opiate Overdose Stop: 10/03/24 16:43 Ondansetron HCl (Ondansetron Inj 2 Mg/Ml 2 Ml Vial) 4 mg IV Q6H PRN PRN Reason: Nausea Stop: 10/03/24 16:43 Oxycodone HCl (Oxycodone Hcl Ir 5 Mg Tab (Immediate Release)) 5 mg PO Q6H PRN PRN Reason: Severe Pain (Scale 7, 8, 9,10) Stop: 09/17/24 21:43 Last Admin: 09/06/24 10:56 Dose: 5 mg Paroxetine HCl (Paroxetine Hcl 20 Mg Tab) [facility] [place] Stop: 10/04/24 08:59 Last Admin: 09/06/24 08:14 Dose: 40 mg Polyethylene Glycol (Polyethylene (Miralax) 17 Gm Pack) 17 gm PO DAILY PRN PRN Reason: Constipation Stop: 10/03/24 16:43 Potassium Phosphate (Pot Phosphate Monobasic W/ Sod Tab) 1 tab PO Q8H [facility] Stop: 09/07/24 01:01 Last Admin: 09/06/24 09:04 Dose: 1 tab Trametinib (Trametinib Dimethyl Sulfoxide) 1 each PO DAILY [facility] Stop: 10/04/24 15:59 Last Admin: 09/06/24 08:14 Dose: 1 each Trazodone HCl (Trazodone Hcl 50 Mg Tab) 150 mg PO HS [facility] Stop: 10/03/24 20:59 Last Admin: 09/05/24 20:50 Dose: 150 mg Triamcinolone Acetonide (Triamcinolone Acet 0.1% Cr 15 Gm Tube) 1 appln TOP BID [facility] Stop: 10/03/24 20:59 Last Admin: 09/06/24 08:15 Dose: 1 appln Vitamin D (Cholecalciferol 25 Mcg (1000 Units) Tab) 25 mcg PO MOFR@0900 [facility] Stop: 10/06/24 08:59 Last Admin: 09/06/24 08:13 Dose: 25 mcg (1) Fall Encounter type: initial encounter Qualified Code(s): W19.XXXA - Unspecified fall, initial encounter (2) Closed fracture of right hip Encounter type: initial encounter Qualified Code(s): S72.001A - Fracture of unspecified part of neck of right femur, initial encounter for closed fracture (3) Acetabulum fracture, right Encounter type: initial encounter Fracture alignment: nondisplaced Fracture type: closed Sublocation of acetabulum: unspecified portion of acetabulum Qualified Code(s): S32.401A - Unspecified fracture of right acetabulum, initial encounter for closed fracture (4) Contusion of right shoulder Encounter type: initial encounter Qualified Code(s): S40.011A - Contusion of right shoulder, initial encounter (5) Left rib fracture Encounter type: initial encounter Fracture type: closed Rib fracture type: single rib Qualified Code(s): S22.32XA - Fracture of one rib, left side, initial encounter for closed fracture
[2024-09-06] MEDS: CHOLECALCIFEROL 25 MCG (1000 UNITS) TAB PO SCH (08:13)
[2024-09-06] MEDS ORDERED: POTASSIUM PHOS 3 MMOL/1 ML INFUSION IV STA (08:25)
[2024-09-06 08:58] LABS: Hematocrit (blood only) 36.8 % (37.0-47.0); Mean Corpuscular Hemoglobin 31.2 pg (25.0-34.0); Mean Corpuscular Hgb Conc 32.6 g/dL (32.0-36.0); Mean Corpuscular Volume 95.6 fL (80.0-100.0); Mean Platelet Volume 8.7 fL (9.4-12.4); Platelet Count 446 K/uL (130-400); RDW Coefficient of Variation 14.5 % (11.5-14.5); RDW Standard Deviation 50.6 fL (36.4-46.3); Red Blood Count 3.85 M/uL (4.20-5.40); White Blood Count 10.08 K/ul (4.8-10.8)
[2024-09-06] MEDS: MAGNESIUM SULFATE / D5W 1 GM/100 ML BAG IV ONE (09:03)
[2024-09-06] MEDS: POT PHOSPHATE MONOBASIC W/ SOD TAB PO SCH (09:04)
[2024-09-06 09:05] LABS: BUN Creatinine Ratio 28.8 (10-20); Calcium 8.4 mg/dl (8.6-10.3); Creatinine Clr Calc Pharmacy 66.3 ml/min; Magnesium 1.6 mg/dl (1.7-2.4); Potassium 4.5 mmol/L (3.5-5.1)
--- NOTE | 2024-09-06 12:01 | Palliative Care Consultation ---
Date of Consultation September 06, 2024 Assessment & Plan (1) Palliative care by specialist: assessed pt at bedside, she is pleasantly communicative, but she currently lacks decisional capacity based on the inability to convey understanding of personal PMHx, current medical condition, treatment options nor the risks / benefits of those options, and lack of ability to make decisions based on such knowledge. Hospital does not have written documentation of patient wishes concerning her chosen proxy for medical decisions. Pt does require a proxy for medical decisions. Per PA [id number], in absence of written documentation of patient wishes, pt's proxy for medical decisions would be []. Per PA [id number], in absence of written documentation of patient wishes, pt's proxy for medical decisions would be her spouse. Attempt made to contact pt's spouse by phone unsuccessfully x2; general VM left. (2) Pain provoked by trauma: Pt pleasantly confused, denies any discomfort at this time. Unable to obtain any HPI form pt 2/2 confusion. (3) Counseling regarding goals of care: Unable to contact legal MDM proxy today therefore goals of care not address. Will attempt to address tomorrow. 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 Hx of craniotomy in February 2024, with subsequent memory issues. She has been admitted for fracture to Right femur and L 6th rib, ortho has been consulted and rec cons ervative management with PT/OT. Patient was last admitted in June 2024 and found to have left pubic rami fracture and UTI. No surgical intervention was recommended for pelvic fracture. Was then discharged back to [facility] for continued conditioning before returning home 3 weeks ago. Ambulates with a walker at baseline and has been unsteady per . Still has some pain in her pelvis from previous fall, per . Follows with Dr. Watkins for melanoma with mets to brain. Currently on oral regimen of dabrafenib and Mekinist, which will bring in from home. Allergies Allergy/AdvReac Type Severity Reaction Status Date / Time erythromycin base Allergy Unknown BROUGHT ON Verified 07/06/24 12:42 SEIZURES Macrolide Antibiotics Allergy Unknown Unknown Verified 07/06/24 12:42 Ketolide Antibiotics Allergy Unknown Unknown. Uncoded 07/06/24 12:42 On file w/ [facility]. Home Medications Medication Instructions Recorded Confirmed Type dabrafenib 75 mg capsule (Tafinlar) 75 mg PO AMHS 07/30/22 09/03/24 History multivitamin 1 tab PO QAM #30 tabs 04/28/24 09/03/24 Rx ondansetron HCl 8 mg tablet 8 mg PO BID PRN nausea #10 tabs 04/28/24 09/03/24 Rx paroxetine HCl 40 mg tablet 40 mg PO QAM #30 tabs 04/28/24 09/03/24 Rx triamcinolone acetonide 0.1 % 1 applic topical BID itching #15 04/28/24 09/03/24 Rx topical cream grams atorvastatin 20 mg tablet 20 mg PO QPM 07/06/24 09/03/24 History losartan 50 mg tablet 50 mg PO QAM 07/06/24 09/03/24 History tramadol 50 mg tablet 50 mg PO TID PRN Moderate Pain 07/06/24 09/03/24 History (Scale Score 5-6) trazodone 100 mg tablet 150 mg PO HS 07/06/24 09/03/24 History carbamazepine 200 mg 400 mg (2 x 200 mg) PO BID #120 07/12/24 09/03/24 Rx tablet,extended release,12 hr tabs cholecalciferol (vitamin D3) 25 25 mcg PO MOFR@0900 09/03/24 09/03/24 History mcg (1,000 unit) tablet levothyroxine 200 mcg tablet 200 mcg PO DAILY 09/03/24 09/03/24 History lorazepam 0.5 mg tablet 0.5 mg PO DAILY PRN anxiety 09/03/24 09/03/24 History trametinib 0.5 mg tablet (Mekinist) 1.5 mg PO DAILY 09/03/24 09/03/24 History Patient History Medical History Seizure disorder History of melanoma October 2017 --diag with superficial spreading melanoma of the left leg, [id number], Stage IIIc. 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 S/p re-excision and SLNB 12/26/2017 (-margins; 3 of 3 nodes involved) S/p nivolumab 02/04 - 04/08 S/p right parietal craniotomy for near total resection 08/20/2021 S/p Radiation therapy to brain mets, including post op bed; Aug -September 2021 S/p dabrafinib and trametinib 10/09 --dose reduced in mid 2021; ongoing Rx Jul 2022--SRS to left frontal lobe Aug 2023--s/p ALYSHA and bx of Left Frontal mass. Path-- brain parenchyma with reactive gliosis.Negative for malignancy. MRI feb 20, 2024--Parenchymal abnormality at the treatment site measuring 1.9 cm, not fully characterized. Surrounding vasogenic edema and mild mass effect, increased since pretreatment imaging. 03/03/2024--s/p L frontal craniotomy for resection ( Dr Hand) ; path showed Residual/recurrent metastatic melanoma Surgical History S/P craniotomy Dr. Hand [facility] 03/03/24 Left frontal craniotomy for tumor resection with vycor tube and dynamic retraction, use of brainlab neuronavigation, use of neurophysiological monitoring (SSEP/MEP/motor language, subcortical stimulation) Status post right foot surgery History of knee replacement procedure of left knee History of partial hysterectomy H/O craniotomy History of back surgery History of brain surgery x2 Hx of cholecystectomy Family History Grandfather (Maternal) Cancer Breast cancer Sister Cancer Breast cancer Father Cancer Colon cancer Social History Smoking Status: Former smoker Tobacco Type: Cigarettes Cigarettes Per Day: 13; Second Hand Exposure: Yes; Do You Dip or Chew Tobacco: No; Tobacco Cessation Education Requested by Patient: No Hx Alcohol Use: No Hx Substance Use: No Preferred Language: Croatian Communication Ability: Effective Visual Impairment: No Limitations Hearing Ability: Normal Development Trainer Required: No Beliefs That Will Affect Care: None marital status: Current Living Situation: Spouse current occupational status: employed 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 No accessory muscle use Cardiovascular: regular rate, rhythm, normal peripheral pulses, no BLE edema Chest: normal inspection of chest Abdomen/GI: normal bowel sounds, soft, nontender Extremities/Musculoskeletal: R shoulder in sling. R hip without TTP. extremities motor strength 5/5 Neurologic: PERRL, moves all extremities Psychiatric: A+Ox person & place, flat affect Skin: no rashes, normal color, warm/dry Results & Data Vital Signs (Past 12 Hours) Vital Signs Temp Pulse Resp BP Pulse Ox Pulse Ox O2 Del Method 09/06/24 11:40 Room Air 09/06/24 08:12 Room Air 09/06/24 08:12 91 09/06/24 08:07 37 C 82 18 124/75 91 Room Air 09/06/24 06:15 96 09/06/24 02:15 96 O2 Del Method 09/06/24 11:40 09/06/24 08:12 09/06/24 08:12 Room Air 09/06/24 08:07 09/06/24 06:15 Room Air 09/06/24 02:15 Room Air Laboratory Results Abnormal lab results 09/06/24 Range/Units 07:42 RBC 3.85 L (4.20-5.40) M/uL Hct 36.8 L (37.0-47.0) % RDW Std Deviation 50.6 H (36.4-46.3) fL Plt Count 446 H (130-400) K/uL MPV 8.7 L (9.4-12.4) fL Sodium 134 L (136-145) mmol/L Anion Gap 1 L (3-11) BUN/Creatinine Ratio 28.8 H (10-20) Calcium 8.4 L (8.6-10.3) mg/dl Magnesium 1.6 L (1.7-2.4) mg/dl Diagnostic Findings Cervical Spine CT 09/03/24 11:02 CT cervical spine wo con CT DOSE: 1203.13 mGy.cm CLINICAL HISTORY: 64 years-old Female with fall. Acute neck pain status post fall COMPARISON: CT head on Friday, CT cervical spine 02/26/2024 TECHNIQUE: Multiple axial CT images of the cervical spine were obtained without contrast. A dose lowering technique was utilized adhering to the principles of ALARA. FINDINGS: Anterior plate and screw fusion with discectomy changes redemonstrated at the C3-C7 levels. Severe intervertebral disc space narrowing again noted at C7-T1 and T1-T2. Unchanged grade 1 anterolisthesis of C3 on C4. No acute fracture or subluxation identified. Severe degeneration of the temporomandibular joints. Trace left mastoid effusion. The cervical soft tissues appear unremarkable. No pneumothorax. 3 mm solid nodule noted within the left lung apex on image 89 series 7. Unremarkable soft tissues. IMPRESSION: No acute cervical spine fracture or subluxation. ACT 112: Negative or not required by law. The above report was generated using voice recognition software. It may contain grammatical, syntax or spelling errors. Electronically signed by: Dre Clark M.D. 09/03/2024 12:24 PM Chest X-Ray 09/03/24 11:02 XR chest 1V portable CLINICAL HISTORY: fall COMPARISON STUDY: Chest CT February 26, 2024. Chest radiograph July 06, 2024. FINDINGS: Postoperative findings within the spine are incidentally noted. There is no pneumothorax or pleural effusion. There is no consolidation or evidence for pulmonary edema. Cardiomediastinal silhouette is unremarkable. An acute appearing mildly displaced lateral left sixth rib fracture is new since radiographs of July 06, 2024. IMPRESSION: 1. No pneumothorax. 2. Acute mildly displaced lateral left sixth rib fracture. ACT 112: Negative or not required by law. Electronically signed by: Tc Umaña M.D. 09/03/2024 11:[address] 09/03/24 11:02 CT OF THE HEAD WITHOUT CONTRAST CLINICAL HISTORY: Fall. History of metastatic disease. COMPARISON STUDY: MRI of the brain and head CT July 06, 2024. TECHNIQUE: Helical axial images of the head were obtained without IV contrast. Automated exposure control was utilized for the study. A dose lowering technique was utilized adhering to the principles of ALARA. FINDINGS: Postoperative findings following craniotomies are unchanged. Hypodensities within the left frontal and right parietal lobes are unchanged. Ventricular system is unremarkable. Basal cisterns are patent. There are no extra axial collections. No calvarial fractures are present. There are no findings to suggest acute dural sinus thrombosis or acute territorial infarct. IMPRESSION: 1. No acute intracranial findings. 2. No change in appearance of the brain. Stable postoperative findings. 3. No calvarial fractures. ACT 112: Negative or not required by law. Electronically signed by: Tc Umaña M.D. 09/03/2024 12:09 PM Hip/Pelvis X-Ray 09/03/24 11:02 XR hip RT 2V w pelvis HISTORY: 64 years-old Female fall acute pelvic pain status post fall COMPARISON: CT pelvis 07/06/2024 TECHNIQUE: AP view of the pelvis with 2 views of the right hip FINDINGS: Demineralized appearance of the bones. [id number] osteoarthritis of the h ips. Moderate flattening of the superior and superolateral aspects of the right femoral head represents a change from the prior study. Healing subacute and comminuted pelvic ring fractures demonstrate unchanged alignment from the prior study. No acute displaced fracture or dislocation. IMPRESSION: 1. Articular flattening of the right femoral head represents a change from the 07/06/[address] of the pelvis recommended. 2. Unchanged alignment with mild interval incomplete bony healing of the subacute and comminuted pelvic ring fractures which are unchanged in alignment from the prior. ACT 112: Negative or not required by law. The above report was generated using voice recognition software. It may contain grammatical, syntax or spelling errors. Electronically signed by: Dre Clark M.D. 09/03/2024 11:[address] 09/03/24 11:38 CT hip RT wo con CLINICAL HISTORY: Right hip pain following fall. COMPARISON STUDY: Pelvis CT July 06, 2024. Right hip radiographs performed earlier today TECHNIQUE: Axial images of the right hip were obtained without IV contrast. Sagittal and coronal reformats were viewed. Automated exposure control was utilized for the study. A dose lowering technique was utilized adhering to the principles of ALARA. FINDINGS: Bilateral pubic ring fractures were present on CT of July 06, 2024. Associated callus formation has increased. Ossific material within the right adductor musculature has increased. This favors examination of callus formation and myositis ossificans. An acute appearing nondisplaced right acetabular roof fracture has developed since CT of July 06, 2024. In addition, there has been interval development of flattening of the right femoral head with a right femoral head subchondral fracture which is minimally depressed. There is moderate osteoarthritis of the right hip. No suspicious osseous lesions are identified. Multifocal ossific/calcific material within the right hip joint is now present. IMPRESSION: 1. Acute appearing nondisplaced right acetabular roof fracture. This is new since CT of July 06, 2024. 2. Interval development of a subchondral fracture within the right femoral head with flattening of the femoral head since CT of July 06, 2024. 3. Redemonstration of subacute bilateral pubic ring fractures with extensive callus formation and possible associated myositis ossificans within the adductor muscles. 4. Moderate right hip osteoarthritis. Interval development of multifocal calcific/ossific material within the right hip joint. ACT 112: Negative or not required by law. Electronically signed by: Tc Umaña M.D. 09/03/2024 12:23 PM Shoulder X-Ray 09/03/24 17:03 Study: Right shoulder 2 views History: Pain Comparison: None Findings: There is no acute fracture or dislocation. Alignment is anatomic. Joint spaces are well maintained. There is no joint effusion or significant soft tissue swelling. Soft tissue mineralization seen about the shoulder joint laterally and superiorly, which may be degenerative or heterotopic. Bone mineralization is decreased. Impression: Scapular Y and axillary view, show no acute bony abnormality of the right shoulder Electronically signed by Dre David 09-03-2024 6:28 PM Medications Administered Current Inpatient Medications Acetaminophen (Acetaminophen 500 Mg Tab) 1,000 mg PO Q8H [facility] Stop: 10/04/24 00:00 Last Admin: 09/06/24 23:24 Dose: 1,000 mg Atorvastatin Calcium (Atorvastatin 20 Mg Tab) 20 mg PO QPM [facility] Stop: 10/03/24 20:59 Last Admin: 09/06/24 19:52 Dose: 20 mg Bisacodyl (Bisacodyl 10 Mg Supp) 10 mg WI DAILY PRN PRN Reason: Constipation Stop: 10/03/24 16:43 Carbamazepine (Carbamazepine Xr 200 Mg Tabcr) 400 mg PO BID [facility] Stop: 10/03/24 20:59 Last Admin: 09/06/24 19:52 Dose: 400 mg Dabrafenib (Dabrafenib Mesylate) 1 each PO BID [facility] Stop: 10/04/24 20:59 Last Admin: 09/06/24 19:53 Dose: 1 each Levothyroxine Sodium (Levothyroxine Sodium 200 Mcg Tablet) 200 mcg PO DAILYBB [facility] Stop: 10/04/24 06:29 Last Admin: 09/06/24 05:49 Dose: 200 mcg Losartan Potassium (Losartan Potassium 50 Mg Tab) 50 mg PO [facility] Stop: 10/04/24 08:59 Last Admin: 09/04/24 07:56 Dose: 50 mg Magnesium Hydroxide (Magnesium Hydroxide Susp 30 Ml Udc) 30 ml PO DAILY PRN PRN Reason: Constipation Stop: 10/03/24 16:43 Magnesium Oxide (Magnesium Oxide 400 Mg Tab) 400 mg PO [facility] Stop: 10/05/24 08:59 Last Admin: 09/06/24 08:14 Dose: 400 mg Multivitamins (Multivitamin Tab) 1 tab PO [facility] Stop: 10/04/24 08:59 Last Admin: 09/06/24 08:14 Dose: 1 tab Naloxone HCl (Naloxone Hcl 0.4 Mg/1 Ml Vial/Carp) 0.1 mg IV UD PRN PRN Reason: Opiate Overdose Stop: 10/03/24 16:43 Ondansetron HCl (Ondansetron Inj 2 Mg/Ml 2 Ml Vial) 4 mg IV Q6H PRN PRN Reason: Nausea Stop: 10/03/24 16:43 Oxycodone HCl (Oxycodone Hcl Ir 5 Mg Tab (Immediate Release)) 5 mg PO Q6H PRN PRN Reason: Severe Pain (Scale 7, 8, 9,10) Stop: 09/17/24 21:43 Last Admin: 09/06/24 23:25 Dose: 5 mg Paroxetine HCl (Paroxetine Hcl 20 Mg Tab) [facility] [place]: 10/04/24 08:59 Last Admin: 09/06/24 08:14 Dose: 40 mg Polyethylene Glycol (Polyethylene (Miralax) 17 Gm Pack) 17 gm PO DAILY PRN PRN Reason: Constipation Stop: 10/03/24 16:43 Potassium Phosphate (Pot Phosphate Monobasic W/ Sod Tab) 1 tab PO Q8H [facility] Stop: 09/07/24 01:01 Last Admin: 09/06/24 16:56 Dose: 1 tab Trametinib (Trametinib Dimethyl Sulfoxide) 1 each PO DAILY [facility] Stop: 10/04/24 15:59 Last Admin: 09/06/24 08:14 Dose: 1 each Trazodone HCl (Trazodone Hcl 50 Mg Tab) 150 mg PO HS [facility] Stop: 10/03/24 20:59 Last Admin: 09/06/24 19:56 Dose: 150 mg Triamcinolone Acetonide (Triamcinolone Acet 0.1% Cr 15 Gm Tube) 1 appln TOP BID [facility] Stop: 10/03/24 20:59 Last Admin: 09/06/24 19:53 Dose: 1 appln Vitamin D (Cholecalciferol 25 Mcg (1000 Units) Tab) 25 mcg PO MOFR@0900 [facility] Stop: 10/06/24 08:59 Last Admin: 09/06/24 08:13 Dose: 25 mcg PG Care Time/CCT Total # of Minutes Spent Total Time Spent with Patient: Total time spent is greater than 50% in coordination of care (as documented) at patient's floor/unit and/or counseling patient: [place] [address] IN/OBS CONSULT LVL 2,35M Patient Type New History Problem Focused Exam Problem Focused Medical Decision Making Straight Forward Diagnoses Palliative care by specialist Z51.5 Pain provoked by trauma R52 Counseling regarding goals of care Z71.89
[2024-09-07 08:22] LABS: Hematocrit (blood only) 34.3 % (37.0-47.0); Hemoglobin 11.4 g/dl (12.0-16.0); Mean Corpuscular Hemoglobin 31.5 pg (25.0-34.0); Mean Corpuscular Hgb Conc 33.2 g/dL (32.0-36.0); Mean Corpuscular Volume 94.8 fL (80.0-100.0); Mean Platelet Volume 8.7 fL (9.4-12.4); Platelet Count 430 K/uL (130-400); RDW Coefficient of Variation 14.4 % (11.5-14.5); Red Blood Count 3.62 M/uL (4.20-5.40); White Blood Count 7.42 K/ul (4.8-10.8)
[2024-09-07 08:39] LABS: BUN Creatinine Ratio 33.9 (10-20); Creatinine Clr Calc Pharmacy 78.2 ml/min; Magnesium 1.9 mg/dl (1.7-2.4); Phosphorus 3.4 mg/dl (2.5-4.9); Potassium 4.7 mmol/L (3.5-5.1)
--- NOTE | 2024-09-07 12:11 | Hospitalist Progress Note ---
Date of Service September 07, 2024 Assessment & Plan (1) Fall: (2) Closed fracture of right hip: (3) Acetabulum fracture, right: (4) Contusion of right shoulder: (5) Left rib fracture: (6) Hypothyroidism: (7) Seizure disorder: (8) Melanoma metastatic to brain: (9) Memory changes: (10) Age-related osteopor w/curr pathol fx of lower leg w/routine heal: Plan This is a 64-year-old female with PMH of melanoma with metastatic disease of the brain (dx 2021, original site left leg, s/p XRT, s/p L frontal craniotomy at [facility] 03/13) complicated by seizure disorder, hypertension, CAD, cerebral atrophy, mood disorder and other medical problems listed below who presents from home after a fall at home and was found to have acute appearing nondisplaced right acetabular roof fracture (new since CT of July 06, 2024) as well as interval development of a subchondral fracture within the right femoral head with flattening of the femoral head since CT of July 06, 2024. Labs and imaging reviewed, WBC fairly wnl CT Head and CT C spine: no acute finding CXR: Acute mildly displaced lateral left sixth rib fracture. No pneumothorax Hip Imaging: acute non displaced right acetabular roof fracture. Subchondral fracture w/in right femoral head. Subacute b/l pubic ring fractures Age-related osteoporosis with current pathologic fracture, right acetabulum, right femoral head, L rib fractures Right acetabulum fracture Conservative mgmt per ortho surgery. Weight bear as tolerated. Will need a walker, PT/OT evaluated - recommend rehab Pain has been managed with scheduled Tylenol for pain. Avoid narcotics as able Prescribed tramadol at home but it has been discontinued as it likely diminishes effect of carbamazepine - discussed with family Patient frustrated with recurrent falls in last 2 months, ongoing cancer tx - routine palliative care consult on vitamin D supplement Hypokalemia Replaced and WNL Hypomagnesemia: repleted, will repeat in a.m. Ambulatory dysfunction Uses walker at baseline; unsteady since pelvic fracture in June Fall precautions, PT/OT as above Contusion of R shoulder Recommend a sling to wear for comfort, ROM as tolerated Melanoma with mets to brain Dx 2021, original site left leg, s/p XRT, s/p L frontal craniotomy at [facility] 03/13 Forgetful with waxing and waning mentation since February, per . At baseline brought dabrafenib and Mekinist from home Seizure disorder Remote history. Continue carbamazepine HTN Continue to hold losartan for now given hypotension Mood disorder Continue paroxetine, trazodone HS, holding Ativan to decrease fall risk Hypothyroidism Levothyroxine increased to 200 mcg last week per PCP. Follow up TFT in 2 months DVT Ppx: SCDs for now Code status: DNR/DNI per discussion with patient PCP: Dr. Solorio Dispo: admit to med/surg I spent a total of 36 minutes coordinating, documenting, and providing care for this patient excluding time spent in the performance of separately billed services or time spent by another provider/QHP. Pt was seen and examined in collaboration with Dr. Moreno, please see addendum Admission and Anticipated Discharge Date Admission Date: September 03, 2024 Supervising Physician Co-Signing Physician Notes Pt seen and examined by me, care coordinated w/ BMARGOT Hollins, pls refer to her note for further detail. Pt seen lying in bed in NAD, arm in a sling. awake and answering appropriately. Denies any pain or discomfort , also specifically denies chest pain or shortness of breath. Electrolytes replaced. Will recheck tmrw as well. Seen by orthopedics. Palliative med also consulted. CM involved in DC planning, pt wants discussion about placement be held w/ her , likely will DC to [place] [facility]. MD Josh I spent a total of 8 minutes coordinating, documenting, and providing care for this patient excluding time spend in the performance of separately billed services or time spent by another provider / QHP. Subjective Pt endorses no concerns. She occasionally has shoulder pain She is unsure if moving her bowels. Denies f/c/s, chest pain, sob n/v. Nursing notes reviewed, BM on 09/06. Review of Systems Review of Systems: All systems reviewed & are unremarkable except as noted in HPI & below Physical Exam Physical Exam: Gen: WD/WN, NAD, A&O x2 to basics HEENT: Normocephalic, atraumatic, conjunctivae moist, sclerae anicteric, mucous membranes moist. Lung: Clear to Auscultation bilaterally, no wheezes/rales/rhonchi Heart: Regular rate, regular rhythm, Abdomen: Soft, NT, ND +BS x 4 Extremities: No edema, RUE in sling Skin: Warm, no rash, negative turgor. Results & Data Results & Data Vital Signs (Past 12 Hours) Vital Signs Temp Pulse Resp BP Pulse Ox Pulse Ox O2 Del Method 09/07/24 07:21 36.7 C 80 16 120/56 L 94 Room Air 09/07/24 05:01 95 O2 Del Method 09/07/24 07:21 09/07/24 05:01 Room Air Laboratory Results Short CBC 09/07/24 Range/Units 07:45 WBC 7.42 (4.8-10.8) K/ul Hgb 11.4 L (12.0-16.0) g/dl Hct 34.3 L (37.0-47.0) % Plt Count 430 H (130-400) K/uL BMP 09/07/24 07:45 Sodium 134 L Potassium 4.7 Chloride 101 Carbon Dioxide 30 BUN 19 Creatinine 0.56 L Glucose 95 Calcium 8.0 L I have independently reviewed and interpreted patient's cbc, bmp, mag Medications Administered Current Inpatient Medications Acetaminophen (Acetaminophen 500 Mg Tab) 1,000 mg PO Q8H PORTER Stop: 10/04/24 00:00 Last Admin: 09/06/24 23:24 Dose: 1,000 mg Atorvastatin Calcium (Atorvastatin 20 Mg Tab) 20 mg PO QPM PORTER Stop: 10/03/24 20:59 Last Admin: 09/06/24 19:52 Dose: 20 mg Bisacodyl (Bisacodyl 10 Mg Supp) 10 mg OR DAILY PRN PRN Reason: Constipation Stop: 10/03/24 16:43 Carbamazepine (Carbamazepine Xr 200 Mg Tabcr) 400 mg PO BID PORTER Stop: 10/03/24 20:59 Last Admin: 09/06/24 19:52 Dose: 400 mg Dabrafenib (Dabrafenib Mesylate) 1 each PO BID PORTER Stop: 10/04/24 20:59 Last Admin: 09/06/24 19:53 Dose: 1 each Levothyroxine Sodium (Levothyroxine Sodium 200 Mcg Tablet) 200 mcg PO DAILYBB PORTER Stop: 10/04/24 06:29 Last Admin: 09/07/24 06:26 Dose: 200 mcg Losartan Potassium (Losartan Potassium 50 Mg Tab) 50 mg PO QAM [facility]TER Stop: 10/04/24 08:59 Last Admin: 09/04/24 07:56 Dose: 50 mg Magnesium Hydroxide (Magnesium Hydroxide Susp 30 Ml Udc) 30 ml PO DAILY PRN PRN Reason: Constipation Stop: 10/03/24 16:43 Magnesium Oxide (Magnesium Oxide 400 Mg Tab) 400 mg PO QAM [facility] Stop: 10/05/24 08:59 Last Admin: 09/06/24 08:14 Dose: 400 mg Multivitamins (Multivitamin Tab) 1 tab PO QAM [facility] Stop: 10/04/24 08:59 Last Admin: 09/06/24 08:14 Dose: 1 tab Naloxone HCl (Naloxone Hcl 0.4 Mg/1 Ml Vial/Carp) 0.1 mg IV UD PRN PRN Reason: Opiate Overdose Stop: 10/03/24 16:43 Ondansetron HCl (Ondansetron Inj 2 Mg/Ml 2 Ml Vial) 4 mg IV Q6H PRN PRN Reason: Nausea Stop: 10/03/24 16:43 Oxycodone HCl (Oxycodone Hcl Ir 5 Mg Tab (Immediate Release)) 5 mg PO Q6H PRN PRN Reason: Severe Pain (Scale 7, 8, 9,10) Stop: 09/17/24 21:43 Last Admin: 09/06/24 23:25 Dose: 5 mg Paroxetine HCl (Paroxetine Hcl 20 Mg Tab) 40 mg PO QAM [facility] Stop: 10/04/24 08:59 Last Admin: 09/06/24 08:14 Dose: 40 mg Polyethylene Glycol (Polyethylene (Miralax) 17 Gm Pack) 17 gm PO DAILY PRN PRN Reason: Constipation Stop: 10/03/24 16:43 Trametinib (Trametinib Dimethyl Sulfoxide) 1 each PO DAILY PORTER Stop: 10/04/24 15:59 Last Admin: 09/06/24 08:14 Dose: 1 each Trazodone HCl (Trazodone Hcl 50 Mg Tab) 150 mg PO HS [facility] Stop: 10/03/24 20:59 Last Admin: 09/06/24 19:56 Dose: 150 mg Triamcinolone Acetonide (Triamcinolone Acet 0.1% Cr 15 Gm Tube) 1 appln TOP BID PORTER Stop: 10/03/24 20:59 Last Admin: 09/06/24 19:53 Dose: 1 appln Vitamin D (Cholecalciferol 25 Mcg (1000 Units) Tab) 25 mcg PO MOFR@0900 PORTER Stop: 10/06/24 08:59 Last Admin: 09/06/24 08:13 Dose: 25 mcg (1) Fall Encounter type: initial encounter Qualified Code(s): W19.XXXA - Unspecified fall, initial encounter (2) Closed fracture of right hip Encounter type: initial encounter Qualified Code(s): S72.001A - Fracture of unspecified part of neck of right femur, initial encounter for closed fracture (3) Acetabulum fracture, right Encounter type: initial encounter Fracture alignment: nondisplaced Fracture type: closed Sublocation of acetabulum: unspecified portion of acetabulum Qualified Code(s): S32.401A - Unspecified fracture of right acetabulum, initial encounter for closed fracture (4) Contusion of right shoulder Encounter type: initial encounter Qualified Code(s): S40.011A - Contusion of right shoulder, initial encounter (5) Left rib fracture Encounter type: initial encounter Fracture type: closed Rib fracture type: single rib Qualified Code(s): S22.32XA - Fracture of one rib, left side, initial encounter for closed fracture
--- NOTE | 2024-09-07 18:14 | Communication Note ---
Date of Service: September 07, 2024 [facility] Med Brief Note Patient would like meeting re dispo planning to be held w/ , however we have not been able to reach him. NC submitted Thank you for allowing us to participate in the ongoing care of this patient. Please page with any additional concerns. Angelita Hamm DNP Director, Palliative Medicine
--- NOTE | 2024-09-08 08:25 | Hospitalist Progress Note ---
Date of Service September 08, 2024 Assessment & Plan (1) Fall: (2) Closed fracture of right hip: (3) Acetabulum fracture, right: (4) Contusion of right shoulder: (5) Left rib fracture: (6) Hypothyroidism: (7) Seizure disorder: (8) Melanoma metastatic to brain: (9) Memory changes: (10) Age-related osteopor w/curr pathol fx of lower leg w/routine heal: Plan This is a 64-year-old female with PMH of melanoma with metastatic disease of the brain (dx 2021, original site left leg, s/p XRT, s/p L frontal craniotomy at [facility] 03/13) complicated by seizure disorder, hypertension, CAD, cerebral atrophy, mood disorder and other medical problems listed below who presents from home after a fall at home and was found to have acute appearing nondisplaced right acetabular roof fracture (new since CT of July 06, 2024) as well as interval development of a subchondral fracture within the right femoral head with flattening of the femoral head since CT of July 06, 2024. Labs and imaging reviewed, WBC fairly wnl CT Head and CT C spine: no acute finding CXR: Acute mildly displaced lateral left sixth rib fracture. No pneumothorax Hip Imaging: acute non displaced right acetabular roof fracture. Subchondral fracture w/in right femoral head. Subacute b/l pubic ring fractures Age-related osteoporosis with current pathologic fracture, right acetabulum, right femoral head, L rib fractures Right acetabulum fracture Conservative mgmt per ortho surgery. WBAT. Will need a walker, PT/OT evaluated - recommend rehab; placement pending at [facility] Pain has been managed with scheduled Tylenol for pain. Avoid narcotics as able Added Lidoderm patch Prescribed tramadol at home but it has been discontinued as it likely diminishes effect of carbamazepine - discussed with family Patient frustrated with recurrent falls in last 2 months, ongoing cancer tx - routine palliative care consult placed on vitamin D supplement for prevention of further falls Added on Vitamin B12 Hypokalemia Resolved Replaced ; continue to trend in AM on 09/09 Hypomagnesemia: Resolved repleted, will repeat in a.m. on 09/09 Ambulatory dysfunction Uses walker at baseline; unsteady since pelvic fracture in June Fall precautions, PT/OT as above Poor progression with PT due to pain per patient Will trial scheduled Tylenol and Lidoderm patch Encourage ice on 15 min off 15 min TID Contusion of R shoulder Recommend a sling to wear for comfort, ROM as tolerated Working with OT Melanoma with mets to brain Dx 2021, original site left leg, s/p XRT, s/p L frontal craniotomy at [facility] 03/13 Forgetful with waxing and waning mentation since February, per . At baseline brought dabrafenib and Mekinist from home Seizure disorder Remote history. Continue carbamazepine HTN Continue to hold losartan for now given hypotension BP today 111/70 Mood disorder Continue paroxetine, trazodone HS, holding Ativan to decrease fall risk Hypothyroidism Levothyroxine increased to 200 mcg last week per PCP. Follow up TFT in 2 months DVT Ppx: SCDs for now Code status: DNR/DNI per discussion with patient PCP: Dr. Solorio Dispo: admit to med/surg I spent a total of 56 minutes coordinating, documenting, and providing care for this patient excluding time spent inthe performance of separately billed services or time spent by another provider/QHP. Admission and Anticipated Discharge Date Admission Date: September 03, 2024 Supervising Physician Co-Signing Physician Notes Pt was seen and examined by myself, Petrona Cid MD on the day of service. Care was coordinated with Martita Murray PA-C/MARÍA ELENA. 64yoF with R hip fracture currently awaiting placement. Appreciate ortho recs. PRN pain meds Otherwise as above. I spent a total of15 minutes coordinating, documenting, and providing care for this patient excluding time spent in the performance of separately billed services Subjective Ms. Garcia was sitting in her bedside chair, just finishing working with OT. Per OT, she has been c/o pain with movement. Discussed with patient and will adjust around the clock medications and add a Lidoderm patch as outlined below Pt denies CHANG, dizziness, chest pain, palpitations, SOB, N/V/D. She was able to hold conversation with me regarding why she is in the hospital. Goal for SNF rehab once bed available. Review of Systems Review of Systems: Neuro: (-) Falls, trauma, slurred speech HEENT: (-) CHANG, dizziness, dysphagia, visual or auditory changes CV: (-) CP, palpitations, swelling Resp: (-) SOB GI: (-) appetite changes, N/V/D, bowel changes : (-) urinary changes Skin: (-) rashes Psych: (-) anxiety, depression Physical Exam Physical Exam: Neuro: AAOx4, PERRLA, no aphagia, memory changes, CNII-XII grossly intact HEENT: head normocephalic, moist mucus membranes CV: S1/S2, (-) M/G/R, (-) edema, cap refill < 3 seconds Resp: Lungs CTA in all elliott. On RA GI: Abdomen S/NT/ND, Ax4 bowel sounds, (-) CVA tenderness Musculoskeletal: 5/5 B/L UE strength, 5/5 B/L LE strength. Uses a walker to ambulate. Skin: (-) rashes , (-) erythema. Psych: euthymic mood Results & Data Results & Data Vital Signs (Past 12 Hours) Vital Signs Temp Pulse Resp BP Pulse Ox Pulse Ox O2 Del Method 09/08/24 07:51 36.6 C 88 16 111/70 93 Room Air 09/08/24 03:16 94 09/07/24 21:02 Room Air 09/07/24 21:02 94 O2 Del Method 09/08/24 07:51 09/08/24 03:16 Room Air 09/07/24 21:02 09/07/24 21:02 Room Air (1) Fall Encounter type: initial encounter Qualified Code(s): W19.XXXA - Unspecified fall, initial encounter (2) Closed fracture of right hip Encounter type: initial encounter Qualified Code(s): S72.001A - Fracture of unspecified part of neck of right femur, initial encounter for closed fracture (3) Acetabulum fracture, right Encounter type: initial encounter Fracture alignment: nondisplaced Fracture type: closed Sublocation of acetabulum: unspecified portion of acetabulum Qualified Code(s): S32.401A - Unspecified fracture of right acetabulum, initial encounter for closed fracture (4) Contusion of right shoulder Encounter type: initial encounter Qualified Code(s): S40.011A - Contusion of right shoulder, initial encounter (5) Left rib fracture Encounter type: initial encounter Fracture type: closed Rib fracture type: single rib Qualified Code(s): S22.32XA - Fracture of one rib, left side, initial encounter for closed fracture
[2024-09-08] MEDS: LIDOCAINE 5% 1 PATCH TD STA (13:08)
--- NOTE | 2024-09-09 07:07 | Hospitalist Progress Note ---
Date of Service September 09, 2024 Assessment & Plan (1) Fall: (2) Closed fracture of right hip: (3) Acetabulum fracture, right: (4) Contusion of right shoulder: (5) Left rib fracture: (6) Hypothyroidism: (7) Seizure disorder: (8) Melanoma metastatic to brain: (9) Memory changes: (10) Age-related osteopor w/curr pathol fx of lower leg w/routine heal: Plan This is a 64-year-old female with PMH of melanoma with metastatic disease of the brain (dx 2021, original site left leg, s/p XRT, s/p L frontal craniotomy at [facility] 03/13) complicated by seizure disorder, hypertension, CAD, cerebral atrophy, mood disorder and other medical problems listed below who presents from home after a fall at home and was found to have acute appearing nondisplaced right acetabular roof fracture (new since CT of July 06, 2024) as well as interval development of a subchondral fracture within the right femoral head with flattening of the femoral head since CT of July 06, 2024. Labs and imaging reviewed, WBC fairly wnl CT Head and CT C spine: no acute finding CXR: Acute mildly displaced lateral left sixth rib fracture. No pneumothorax Hip Imaging: acute non displaced right acetabular roof fracture. Subchondral fracture w/in right femoral head. Subacute b/l pubic ring fractures Age-related osteoporosis with current pathologic fracture, right acetabulum, right femoral head, L rib fractures Right acetabulum fracture Conservative mgmt per ortho surgery. WBAT. Will need a walker, PT/OT evaluated - recommend rehab; placement pending at [facility] Pain has been managed with scheduled Tylenol for pain. Avoid narcotics as able Added Lidoderm patch Prescribed tramadol at home but it has been discontinued as it likely diminishes effect of carbamazepine - discussed with family Patient frustrated with recurrent falls in last 2 months, ongoing cancer tx - routine palliative care consult placed on vitamin D supplement for prevention of further falls Added on Vitamin B12 Hypokalemia Resolved Replaced ; continue to trend in AM on 09/09 Hypomagnesemia: Resolved repleted, will repeat in a.m. on 09/09 Ambulatory dysfunction Uses walker at baseline; unsteady since pelvic fracture in June Fall precautions, PT/OT as above Poor progression with PT due to pain per patient Will trial scheduled Tylenol and Lidoderm patch Encourage ice on 15 min off 15 min TID Contusion of R shoulder Recommend a sling to wear for comfort, ROM as tolerated Working with OT Melanoma with mets to brain Dx 2021, original site left leg, s/p XRT, s/p L frontal craniotomy at [facility] 03/13 Forgetful with waxing and waning mentation since February, per . At baseline brought dabrafenib and Mekinist from home Seizure disorder Remote history. Continue carbamazepine HTN Continue to hold losartan for now given hypotension BP today 111/70 Mood disorder Continue paroxetine, trazodone HS, holding Ativan to decrease fall risk Hypothyroidism Levothyroxine increased to 200 mcg last week per PCP. Follow up TFT in 2 months DVT Ppx: SCDs for now Code status: DNR/DNI per discussion with patient PCP: Dr. Solorio Dispo: admit to med/surg I spent a total of 56 minutes coordinating, documenting, and providing care for this patient excluding time spent inthe performance of separately billed services or time spent by another provider/QHP. Admission and Anticipated Discharge Date Admission Date: September 03, 2024 Physical Exam Physical Exam: Neuro: AAOx4, PERRLA, no aphagia, memory changes, CNII-XII grossly intact HEENT: head normocephalic, moist mucus membranes CV: S1/S2, (-) M/G/R, (-) edema, cap refill < 3 seconds Resp: Lungs CTA in all elliott. On RA GI: Abdomen S/NT/ND, Ax4 bowel sounds, (-) CVA tenderness Musculoskeletal: 5/5 B/L UE strength, 5/5 B/L LE strength. Uses a walker to ambulate. Skin: (-) rashes , (-) erythema. Psych: euthymic mood Results & Data Results & Data Vital Signs (Past 12 Hours) Vital Signs Temp Pulse Resp BP Pulse Ox Pulse Ox O2 Del Method 09/09/24 06:23 93 09/08/24 19:39 36.6 C 90 16 103/65 93 Room Air O2 Del Method 09/09/24 06:23 Room Air 09/08/24 19:39 (1) Fall Encounter type: initial encounter Qualified Code(s): W19.XXXA - Unspecified fall, initial encounter (2) Closed fracture of right hip Encounter type: initial encounter Qualified Code(s): S72.001A - Fracture of unspecified part of neck of right femur, initial encounter for closed fracture (3) Acetabulum fracture, right Encounter type: initial encounter Fracture alignment: nondisplaced Fracture type: closed Sublocation of acetabulum: unspecified portion of acetabulum Qualified Code(s): S32.401A - Unspecified fracture of right acetabulum, initial encounter for closed fracture (4) Contusion of right shoulder Encounter type: initial encounter Qualified Code(s): S40.011A - Contusion of right shoulder, initial encounter (5) Left rib fracture Encounter type: initial encounter Fracture type: closed Rib fracture type: single rib Qualified Code(s): S22.32XA - Fracture of one rib, left side, initial encounter for closed fracture
[2024-09-09 08:39] LABS: Hematocrit (blood only) 36.9 % (37.0-47.0); Hemoglobin 12.3 g/dl (12.0-16.0); Mean Corpuscular Hemoglobin 32.1 pg (25.0-34.0); Mean Corpuscular Hgb Conc 33.3 g/dL (32.0-36.0); Mean Corpuscular Volume 96.3 fL (80.0-100.0); Mean Platelet Volume 8.4 fL (9.4-12.4); Platelet Count 490 K/uL (130-400); RDW Coefficient of Variation 14.3 % (11.5-14.5); RDW Standard Deviation 49.9 fL (36.4-46.3); Red Blood Count 3.83 M/uL (4.20-5.40); White Blood Count 8.77 K/ul (4.8-10.8)
[2024-09-09 09:05] LABS: BUN Creatinine Ratio 26.4 (10-20); Calcium 8.9 mg/dl (8.6-10.3); Creatinine Clr Calc Pharmacy 82.6 ml/min; Potassium 4.8 mmol/L (3.5-5.1)
[2024-09-09 11:12] VITALS: BP 117/75; PULSE 89; RESP 18; TEMP 98.1; O2SAT 92
--- NOTE | 2024-09-09 12:12 | Discharge Summary ---
Date of Service September 09, 2024 Admission HPI Per Admitting Provider This is a 64-year-old female with PMH of melanoma with metastatic disease of the brain (dx 2021, original site left leg, s/p XRT, s/p L frontal craniotomy [place] [facility] [place] complicated by seizure disorder, chronic hyponatremia, hypertension, CAD, seizure disorder, cerebral atrophy, mood disorder and other medical problems listed below who presents from home after a fall at home. History obtained from over the phone due to 's cognitive deficit. States ever since her craniotomy in February, has had memory issues that wax and wane. woke up this morning to his yelling out on the porch. She had reportedly gone out to smoke and fell. He is unable to get up on her own so called EMS and she was brought in for further evaluation. Unsure if she hit her head. Endorsing some right hip pain that is better after pain medication in ER. Denies any fever, chills, lightheadedness, chest pain, shortness of breath, nausea, vomiting, abdominal pain, dysuria, diarrhea or constipation. Patient was last admitted to our service in June 2024 and found to have left pubic rami fracture and UTI. No surgical intervention was recommended for pelvic fracture. Was then discharged back to [facility] for continued conditioning before returning home 3 weeks ago. Ambulates with a walker at baseline and has been unsteady per . Still has some pain in her pelvis from previous fall, per . Follows with Dr. Watkins for melanoma with mets to brain. Currently on oral regimen of dabrafenib and Mekinist, which will bring in from home. Admission Exam Per Admitting Provider General Appearance: WD/WN, vitals as above, NAD, sitting up in bed, appears chronically ill, poor insight, scattered ecchymosis on limbs Head: normocephalic, atraumatic Eyes: normal inspection, PERRL, conjunctivae normal, anicteric sclerae ENT: external ear and nose normal, oropharynx dry mucous membranes Neck: normal visual inspection Respiratory: normal respiratory effort, lungs clear to auscultation. No accessory muscle use Cardiovascular: regular rate, rhythm, normal peripheral pulses, no BLE edema Chest: normal inspection of chest Abdomen/GI: normal bowel sounds, soft, nontender, no hepatosplenomegaly Extremities/Musculoskeletal: R shoulder with TTP, deduced ROM. R hip without TTP. Distal RLE NVI. No cyanosis or clubbing, extremities motor strength 5/5 Neurologic: PERRL, EOMI, accommodation nl, no face palsy, no dysarthria, CN's II-XI intact bilaterally and moves all extremities Psychiatric: A+Ox person Skin: no rashes, normal color, warm/dry Principal Diagnosis Right femoral head fracture Discharge Exam Neuro: AAOx4, PERRLA, no aphagia, memory changes, CNII-XII grossly intact HEENT: head normocephalic, moist mucus membranes CV: S1/S2, (-) M/G/R, (-) edema, cap refill < 3 seconds Resp: Lungs CTA in all elliott. On RA GI: Abdomen S/NT/ND, Ax4 bowel sounds, (-) CVA tenderness Musculoskeletal: 5/5 B/L UE strength, 5/5 B/L LE strength. No gait disturbance Skin: (-) rashes , (-) erythema. Psych: euthymic mood Discharge Data Allergies Allergy/AdvReac Type Severity Reaction Status Date / Time erythromycin base Allergy Unknown BROUGHT ON Verified 07/06/24 12:42 SEIZURES Macrolide Antibiotics Allergy Unknown Unknown Verified 07/06/24 12:42 Ketolide Antibiotics Allergy Unknown Unknown. Uncoded 07/06/24 12:42 On file w/ [facility]. Consultations 09/03/24 13:47 ED Decision to Admit Stat 09/03/24 14:26 Consult Orthopedic Surgery Routine 09/04/24 13:58 Consult Palliative Care Routine Ordered Studies 09/[address]: FINDINGS: Anterior plate and screw fusion with discectomy changes redemonstrated at the C3-C7 levels. Severe intervertebral disc space narrowing again noted at C7-T1 and T1-T2. Unchanged grade 1 anterolisthesis of C3 on C4. No acute fracture or subluxation identified. Severe degeneration of the temporomandibular joints. Trace left mastoid effusion. The cervical soft tissues appear unremarkable. No pneumothorax. 3 mm solid nodule noted within the left lung apex on image 505 series 7. Unremarkable soft tissues. IMPRESSION: No acute cervical spine fracture or subluxation. 09/03: CXR: FINDINGS: Postoperative findings within the spine are incidentally noted. There is no pneumothorax or pleural effusion. There is no consolidation or evidence for pulmonary edema. Cardiomediastinal silhouette is unremarkable. An acute appearing mildly displaced lateral left sixth rib fracture is new since radiographs of July 06, 2024. IMPRESSION: 1. No pneumothorax. 2. Acute mildly displaced lateral left sixth rib fracture. 09/03: Head CT: FINDINGS: Postoperative findings following craniotomies are unchanged. Hypodensities within the left frontal and right parietal lobes are unchanged. Ventricular system is unremarkable. Basal cisterns are patent. There are no extra axial collections. No calvarial fractures are present. There are no findings to suggest acute dural sinus thrombosis or acute territorial infarct. IMPRESSION: 1. No acute intracranial findings. 2. No change in appearance of the brain. Stable postoperative findings. 3. No calvarial fractures. 09/03 Hip/Pelvis X-ray: FINDINGS: Demineralized appearance of the bones. [id number] osteoarthritis of the hips. Moderate flattening of the superior and superolateral aspects of the right femoral head represents a change from the prior study. Healing subacute and comminuted pelvic ring fractures demonstrate unchanged alignment from the prior study. No acute displaced fracture or dislocation. IMPRESSION: 1. Articular flattening of the right femoral head represents a change from the 07/06/[address] of the pelvis recommended. 2. Unchanged alignment with mild interval incomplete bony healing of the subacute and comminuted pelvic ring fractures which are unchanged in alignment from the prior. 09/03 Shoulder X-ray: FINDINGS: Postoperative findings within the spine are incidentally noted. Calcific densities within the joint space are present. There is a curvilinear ossific density along the glenoid. Glenohumeral alignment is difficult to assess on this examination. AC joint is intact. There are moderate degenerative changes within the right shoulder. No definite acute fractures. IMPRESSION: 1. Glenohumeral alignment difficult to assess on this exam. Anterior shoulder dislocation would be difficult to completely excluded although findings likely technical. A scapular Y view is recommended for further evaluation. 2. Curvilinear ossific density along the glenoid. This is likely chronic although a fracture fragment could appear similar. 09/03: Hip CT: FINDINGS: Bilateral pubic ring fractures were present on CT of July 06, 2024. Associated callus formation has increased. Ossific material within the right adductor musculature has increased. This favors examination of callus formation and myositis ossificans. An acute appearing nondisplaced right acetabular roof fracture has developed since CT of July 06, 2024. In addition, there has been interval development of flattening of the right femoral head with a right femoral head subchondral fracture which is minimally depressed. There is moderate osteoarthritis of the right hip. No suspicious osseous lesions are identified. Multifocal ossific/calcific material within the right hip joint is now present. IMPRESSION: 1. Acute appearing nondisplaced right acetabular roof fracture. This is new since CT of July 06, 2024. 2. Interval development of a subchondral fracture within the right femoral head with flattening of the femoral head since CT of July 06, 2024. 3. Redemonstration of subacute bilateral pubic ring fractures with extensive callus formation and possible associated myositis ossificans within the adductor muscles. 4. Moderate right hip osteoarthritis. Interval development of multifocal calcific/ossific material within the right hip joint. 09/03: Shoulder X-ray: Findings: There is no acute fracture or dislocation. Alignment is anatomic. Joint spaces are well maintained. There is no joint effusion or significant soft tissue swelling. Soft tissue mineralization seen about the shoulder joint laterally and superiorly, which may be degenerative or heterotopic. Bone mineralization is decreased. Impression: Scapular Y and axillary view, show no acute bony abnormality of the right shoulder Hospital Course (1) Acetabulum fracture, right: (2) Melanoma metastatic to brain: (3) Fall: Plan This is a 64-year-old female with PMH of melanoma with metastatic disease of the brain (dx 2021, original site left leg, s/p XRT, s/p L frontal craniotomy at [facility] [place]) complicated by seizure disorder, hypertension, CAD, cerebral atrophy, mood disorder and other medical problems listed below who presents from home after a fall at home and was found to have acute appearing nondisplaced right acetabular roof fracture (new since CT of July 06, 2024) as well as interval development of a subchondral fracture within the right femoral head with flattening of the femoral head since CT of July 06, 2024. Labs and imaging reviewed, WBC fairly wnl CT Head and CT C spine: no acute finding CXR: Acute mildly displaced lateral left sixth rib fracture. No pneumothorax Hip Imaging: acute non displaced right acetabular roof fracture. Subchondral fracture w/in right femoral head. Subacute b/l pubic ring fractures She was evaluated by orthopedics who indicated conservative management with a walker and PT/OT. She received scheduled tylenol and PRN pain medications along with Vitamin D supplement for prevention of further falls. She uses a walker at baseline. For the contusion of her right shoulder it was recommended to wear a sling for comfort. She was discharged in stable condition. Total Time Total Time Spent Total Time Spent (In Minutes): I spent a total of 49 minutes coordinating, documenting, and providing care for this patient excluding time spent inthe performance of separately billed services or time spent by another provider/QHP. Discharge Plan Discharge Items Patient Disposition: Transfer [facility] Fac Reason For Visit: FALL, HIP FRACTURE Discharge Diagnosis: R femoral head fracture Condition on Discharge: Good Activity: Per Instructions section Non-emergency contact: Primary Care Provider Call non-emergency contact if: you have any medication questions and your temperature is above 101 Follow-up/Referrals: Niraj Ortiz MD [Physician] - Martin Solorio MD [Primary Care Provider] - (Date & Time 09/17/2024 3:00 PM Provider: Martin Solorio MD [facility] ) Diet: Heart Healthy Addtl Attending Provider Instructions: Ms. Garcia is a 64 year old female that has a PMH of melanoma with metastatic brain cancer (Dx 2021, original site left leg, s/p XRT, s/p L frontal craniotomy at [facility] 03[place]), seizure disorder, hypertension, CAD, cerebral atrophy, mood disorder and other medical problems listed below who presents from home after a fall at home and was found to have an acute appearing nondisplaced right acetabular roof fracture (new since CT of July 06, 2024) as well as interval development of a subchondral fracture within the right femoral head with flattening of the femoral head since CT of July 06, 2024. See below for all imaging studies obtained. Orthopedics consultation was reviewed with Dr. Pollard who recommended conservative management at this time for the nondisplaced right acetabular roof fracture and a sling for her shoulder for possible dislocation. Ortho will follow up as an outpatient. Imaging reviewed with Dr. Pollard. Recommend conservative management for these problems. For her shoulder, a sling was recommended to wear and perform range of motion as tolerated. She has been working with PT/OT with using a walker and has been able to weight bear as possible. we will get a sling that she can wear for comfort, she can do range of motion as tolerated. Patient has underlying cognitive impairment at baseline; goal to avoid cognitive impairing medications. Patient has been deemed stable for discharge to retirement facility MEDICATION CHANGES: 1. We would like to focus on your pain control with scheduled Tylenol, Tramadol PRN and Lidoderm patch. 2. Avoid cognitively impairing medications that can cause dilirium SUMMARY OF TEST RESULTS: See above in the discharge summary for [facility]. RECOMMENDATIONS FOR FOLLOW-UP: 1. PCP: Dr. Solorio 09/17 @ 3:00 PM. OTHER INSTRUCTIONS: Seek medical attention if you have: * temperature above 101 * chest pain or trouble breathing * abdominal pain, nausea, vomiting * diarrhea, dark stools or bloody stools * any unanswered questions or concerns Call 911 if symptoms are severe. Please take good care of yourself. It has been a pleasure taking care of you. Please take care of yourself. If you have any questions regarding your recent hospitalization please contact [facility] and request Amrita Soteroist @ [phone]. Pending Studies at Discharge: No Stand-Alone Forms: My [facility] Skilled Items Patient informed of condition?: Yes DNR: Yes Discharge Level of Care: Skilled Communicable Disease: No Discharge Prognosis: Stable Lines: None Urinary Catheter: No Medications and DC Order Prescriptions: New sennosides [Senokot] 8.6 mg Tablet 17.2 mg PO QAM Qty: 30 0RF magnesium oxide 400 mg (241.3 mg magnesium) Tablet 400 mg PO QAM Qty: 30 0RF docusate sodium 100 mg Capsule 100 mg PO BID Qty: 30 0RF tramadol 50 mg tablet 50 mg PO BID PRN (Reason: pain, severe) Qty: 6 0RF acetaminophen [Tylenol Extra Strength] 500 mg Tablet 1,000 mg PO Q8H Qty: 14 0RF Continued multivitamin Tablet 1 tab PO QAM Qty: 30 0RF Rx Instructions: Unable to verify OTC med at this date/time. triamcinolone acetonide 0.1 % cream 1 applic TOPICAL BID Qty: 15 0RF levothyroxine 200 mcg tablet 200 mcg PO DAILY cholecalciferol (vitamin D3) 25 mcg (1,000 unit) Tablet 25 mcg PO MOFR@0900 lorazepam 0.5 mg tablet 0.5 mg PO DAILY PRN (Reason: anxiety) losartan 50 mg tablet 50 mg PO QAM Qty: 30 0RF atorvastatin 20 mg tablet 20 mg PO QPM Qty: 30 0RF Rx Instructions: Last filled 02/2024 x90 day supply. Original Directions: 20mg by mouth daily carbamazepine 200 mg Tablet Extended Release 12 Hr 400 mg PO BID Qty: 120 0RF paroxetine HCl 40 mg tablet 40 mg PO QAM Qty: 30 0RF Tafinlar 75 mg capsule 75 mg PO AMHS Qty: 30 0RF Mekinist 0.5 mg tablet 1.5 mg PO DAILY Qty: 30 0RF Discontinued ondansetron HCl 8 mg tablet 8 mg PO BID PRN (Reason: nausea) Qty: 10 0RF Rx Instructions: take 1/2 hr before tafinlar tramadol 50 mg tablet 50 mg PO TID PRN (Reason: Moderate Pain (Scale Score 5-6)) trazodone 100 mg tablet 150 mg PO HS Discharge Orders: Discharge Order (Routine); Ordered 09/09/24 Ordered By: Martita Murray Admission Data Admit Date/Time: 09/03/24 14:26 Attending Provider: Petrona Cid Admit Provider: Rodrick Jarrell Primary Care Provider: Martin Solorio Other Providers: Emeterio Pollard; Raghavendra Chamberlain; [facility] Other Interventions: Discharge Summary Assessment (RN) Last Done: 09/09/24 12:05 Supervising Physician Co-Signing Physician Notes Pt was seen and examined by myself, Petrona Cid MD on the day of service. Care was coordinated with Martita Murray PA-C/MARÍA ELENA. 64yoF with R hip fracture currently awaiting placement. Being discharged to [facility]. Appreciate ortho recs. PRN pain meds Otherwise as above. I spent a total of15 minutes coordinating, documenting, and providing care for this patient excluding time spent in the performance of separately billed services
[2024-09-09] MEDS ORDERED: DOCUSATE SODIUM 100 MG CAP PO SCH (21:00)
[2024-09-10] MEDS ORDERED: SENNA 8.6 MG TAB PO SCH (09:00)
== END 2024-09-09 13:11 | DRG 543 ==
LOC: ED 10:54 → EDINP 14:26 → SUATTDRO 14:26 → 3N 17:43

== ENCOUNTER 2024-11-21 14:29 | Inpatient (IN) ==
--- OUTSIDE RECORDS SUMMARY | 2024-11-21 14:37 | External Medical Summary | Summary of Care ---
Author Name Unknown Organization [facility] Address [address] [place] [address] Phone [phone] Care Team Providers Care Child Welfare Assistant Name Role Phone Martin Solorio MD Primary Care Provider Reason for Visit * Reason Onset Date Comments Home Health 08/09/2024 Encounter Details Date Type Department Care Team (Late st Contact Info) Description 08/09/2024 [facility]phone [facility] [address] [facility] [address] Martin Solorio MD [address] [facility] [place] [address] Home Health Allergies Active Allergy Reactions Criticality Noted Date Comments Erythromycin 08/15/1997 seizures documented as of this encounter (statuses as of 11/09/2024) Medications traZODone HCl 100 MG Oral Tablet [...] in the morning. 90 Tablet 5 5 3:21 PM EDT 05/04/20 24 Active Dabrafenib Mesylate 75 MG Oral Capsule (Tafinlar) Take 1 capsule by mouth in the morning and 1 capsule before bedtime. 120 Capsule 2 5 3:17 PM EDT 05/04/20 24 Active Vitamin D (Ergocalciferol) 48898 UNIT Oral Capsule Take 50,000 Units by mouth once a week. For 8 weeks 8 Capsule 05/19/20 24 Active Additional Information Patient not taking.Reported on 10/12/2024 Acetaminophen 325 MG Oral Tablet (Tylenol) Take 2 Tablets by mouth. 04/27/20 24 Active Losartan Potassium 50 MG Oral Tablet (Cozaar)Indicatio ns:HTN, goal below 130/80 TAKE 1 TABLET BY MOUTH IN THE MORNING 90 Tablet 2 08/04/19 25 Active documented as of this encounter (statuses as of 11/09/2024) Active Problems Problem Noted Date Diagnosed Date [...] regurgitation 09/30/2023 Mild pulmonary valve regurgitation 09/30/2023 Malignant neoplasm metastatic to brain Hx of [...] as of this encounter (statuses as of 11/09/2024) Resolved Problems Problem Noted Date Diagnosed Date Resolved Date 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 Overview (06/04/2024): duplicate Left sided lacunar infarction 09/30/2023 06/04/2024 Overview (06/04/2024): 08/22/23 MRI "There is a chronic lacunar infarction within the left thalamus." Brain lesion 09/08/2023 09/29/2024 Vasogenic brain edema 09/22/20212021 Intracranial hemorrhage 08/18/202109/18 [...] as of this encounter (statuses as of 11/09/2024) Immunizations Name Administration Dates Next Due COVID-19, [...] Date Recorded PHQ Adult Total Score 0 10/12/2024 Hunger Vital Sign Answer Date Recorded Within the past 12 months, y ou worried that your food would run out before you got the money to buy more. Never true 10/02/19 25 Within the past 12 months, t he food you bought just didn't last and you didn't have money to get more. Never true 10/01/2024 Childcare Answer Date Recorded Do you feel overwhelmed with taking care of a child, family member or friend? No 10/01/2024 Does your family need help f inding childcare? (Household - for ages 0-17 years) Not on file 10/01/2024 Clothing Answer Date Recorded Have you been unable to get clothing when it was really needed? No 10/01/2024 Is your family able to get c lothes or diapers when needed? (Household - for ages 0-17 years) Not on file 10/01/2024 Personal Safety Answer Date Recorded Do you feel unsafe or have concerns for your saf ety? No 10/01/2024 Do you have concerns for you r family's safety? (Household - for ages 0-17 years) Not on file 10/01/2024 Utilities Answer Date Recorded Do you have trouble paying y our heating, water, or electric bill? No 10/01/2024 Is your family able to pay t he heat, water, or electric bill? (Household - for ages 0-17 years) Not on file 10/01/2024 Does your family have access to good internet? (Household - for ages 0-17 years) Not on file 10/01/2024 Employment Status Answer Date Recorded Are you unemployed or without regular income? No 10/01/2024 Does the household have a re lar source of income? (Household - for ages 0-17 years) Not on file 10/01/2024 Social Connections Answer Date Recorded How often do you feel lonely or isolated from those around you? Sometimes 10/01/2024 Financial Resource Strain Answer Date R ecorded Do you have any trouble payi ng for your medications, or do you think you might in the future? No 10/01/2024 Does your family have troubl e paying for medicine? (Household - for ages 0-17 years) Not on file 10/01/2024 Transportation Needs Answer Date Record ed Do you have trouble getting a ride to medical visits or work? (Adult - for ages 18 years and over) Not on file 10/01/2024 Does your family have a hard time getting a ride to doctors visits? (Household - for ages 0-17 years) Not on file 10/01/2024 Has lack of transportation k ept you from medical appointments, meetings, work, or from getting things needed for daily living? Check all that apply. No 10/01/2024 Do you (or your family) have trouble finding or paying for a ride (transportation)? (Household - for ages 0-17 years) Not on file 10/01/2024 Housing Stability Answer Date Recorded Do you currently live in a s helter or have no steady place to sleep at night? No 10/01/2024 Do you think you are at risk of becoming homeless? (Adult - for ages 18 years and over) Not on file 10/01/2024 Does your family worry about paying for your home or becoming homeless? (Household - for ages 0-17 years) Not on file 0 10/01/2024 Are you homeless or worried that you might be in the future? No 10/01/2024 Are you (or your family) walt eless [...] the money to buy more. Never true 10/02/19 25 Within the past 12 months, t he food you bought just didn't last and you didn't have money to get more. Never true 10/01/2024 Do you need food for this week? 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 (15 years old or [...] Telephone Encounter - Yue Rodriguez LPN - 08/09/2024 3:38 PM EST Maurizio calling from [facility] He spoke with patient over the weekend to set up at start of care appointment with her, she is requesting that they come out on 08/12/2024. Advised that orders will be signed by Martin Solorio MD and to fax to the office for signature. * Telephone Encounter - Vera David OSA - 08/09/2024 3:37 PM EST Reason for patient's call: Home health , [facility] for [facility] solorio Caller was transferred to [facility] at the nurse line. documented in this encounter Plan of Treatment Upcoming Encounters Date Type Department Care Team (Late st Contact Info) Description 11/30/2024 9:45 AM EDT Pharmacy Pharmacy Hematology Oncology [facility] [address] [place] [address] [facility], [facility] Hem/Onc [address] [place] [address] 02/14/2025 8:00 AM EDT Imaging Radiology [address] [place] [address] [...] 05/03/2023 03/08/2023, 04/22/2022, 04/22/2022, Additional history exists Adult Wellness Visit 09/29/2024 09/30/2023 Mammogram 02/12/2025 02/13/2024, 01/19, 02/06/2021, Additional history exists O2 ASSESSMENT COMPLETED IN PAST YEAR FOR COPD 03/03/2025 03/03/2024 GFR 08/23/2025 08/23/2024, 02/18, 01/29/2024, Additional history exists TSH 08/23/2025 08/23/2024, 01/18, 08/08/2023, Additional history exists Depression Screening 10/12/2025 10/12/2024 Colonoscopy 06/05/2026 06/05/2021, 05/21, 08/10/2010 Colorectal Cancer Screening 06/05/2026 Albumin/Creatinine Ratio 07/25/2026 07/25/2023 DTap/Tdap Vaccines (2 - Td or Tdap) 02/20/2031 02/20/2021, 04/20/2007 RETIRED - COLONOSCOPY-EVERY 5 YRS AGES 18-100 Discontinued 06/05/2021, 06/05/2021, 08/10/2010, Additional history exists Zoster Vaccines Completed 07/17/2022, 04/22/2022 COVID-19 Vaccine Discontinued 06/26/2023, , 2021, Additional history exists Influenza Vaccine (FLU shot) Completed 05/04/2024, 03/08/2023, 04/04/2021, Additional history exists HPV (Gardasil) Vaccine Aged Out No lo nger eligible based on patient's age to complete this topic Hepatitis B Vaccine Aged Out No longe r eligible based on patient's age to complete this topic MENINGOCOCCAL (MENACTRA/MENVEO) Aged Out No longer eligible based on patient's age to complete this topic Meningitis B Vaccine (Bexsero/Trumemba) Aged Out No longer eligible based on patient's age to complete this topic documented as of this encounter Medical Devices Implanted Type Area Design Engineering Technician Device Identifier Shelf Expiration Date Model / Serial / Lot Cover Nilda Hole 24mm 421.528 - [id number] Implanted:Qty: 1 on 08/20/2021 [place] Joni Hand III[place] [facility] [place] SYNTHES MAXILLOFACIAL 421.528 / / Plate Y Ti Lo Db 6h 21 421.517 - [id number] Implanted:Qty: 1 on 08/20/2021 by Joni Hand III, [place] [facility] [place] Head SYNTHES MAXILLOFACIAL 421.517 / / Screw Ti Lo Pro Sd 4mm 400.834 - [id number] Implanted:Qty: 10 on 08/20/2021 by Joni Hand III, [place] [facility] [place] Head SYNTHES MAXILLOFACIAL 400.834 / / Cement Hydroset Injectable c - [id number] Implanted:Qty: 1 on 03/03/2024 by Joni Hand III, [place] [facility] [place]: Head SUZANNA [id number] 09/19/2025 [id number] / / [id number] Cover Bur Hol Ti Lo 17 421.527 - [id number] Implanted:Qty: 1 on 03/03/2024 by Joni Hand III, [place] [facility] [place]: Head SYNTHES MAXILLOFACIAL 421.527 / / Plate Ti Lo Pro Str 2h 421.502 - [id number] Implanted:Qty: 2 on 03/03/2024 by Joni Hand III, [place] [facility] [place]: Head SYNTHES MAXILLOFACIAL 421.502 / / Screw 4mm Ti Low Pro Sdrill - [id number] Implanted:Qty: 7 on 03/03/2024 by Joni Hand III, [place] [facility] [place] Head SYNTHES MAXILLOFACIAL [...] and were consensually agreed upon. Care Teams Child Welfare Assistant Relationship Specialty Start Date End Date Martin Solorio MD [address] [place] [address] PCP - General Family Medicine 02/20/21 documented as of this encounter
--- OUTSIDE RECORDS SUMMARY | 2024-11-21 14:37 | External Medical Summary | Summary of Care ---
Author Name Unknown Organization [facility] Address [address] [place] [address] Phone [phone] Care Team Providers Care Interlacer Name Role Phone Martin Solorio MD Primary Care Provider Reason for Visit * Reason Onset Date Comments Advice 10/20/2024 Encounter Details Date Type Department Care Team (Late st Contact Info) Description 10/20/2024 Telephone [facility] [place] [address] [facility] [address] Martin Solorio MD 226 [facility] [place] [address] Advice Allergies Active Allergy Reactions Criticality Noted Date Comments Erythromycin 08/15/1997 seizures documented as of this encounter (statuses as of 10/26/2024) Medications traZODone HCl 100 MG Oral Tablet [...] EDT 05/04/20 24 Active Vitamin D (Ergocalciferol) 93883 UNIT Oral Capsule Take 50,000 Units by [...] deficiency 1 tab twice per week 08/24/19 Active Additional Information Patient not taking.Reported on 10/12/2024 Levothyroxine Sodium 200 MCG Oral Tablet (Levoxyl)Indicatio ns:Acquired hypothyroidism Take 1 Tablet by mouth in the morning. (at least 30 min prior to breakfast or other meds). 90 Tablet 3 10/13/19 Active documented as of this encounter (statuses as of 10/26/2024) Active Problems Problem Noted Date Diagnosed Date History of stroke 06/04/2024 Overview (06/04/2024): 08/22/23 MRI "There is a chronic lacunar infarction within the left thalamus." Cerebral atrophy 09/30/2023 Spinal stenosis of cervical region 09/30/2023 Coronary artery disease invo lving [place] coronary artery of [place] heart without angina pectoris 09/30/2023 Pulmonary nodules 09/30/2023 Centrilobular emphysema 09/30/2023 Left atrial enlargement 09/30/2023 Mild mitral regurgitation 09/30/2023 Mild tricuspid regurgitation 09/30/2023 Mild pulmonary valve regurgitation 09/30/2023 Malignant neoplasm metastatic to brain 2 Hx [...] as of this encounter (statuses as of 10/26/2024) Resolved Problems Problem Noted Date Diagnosed Date Resolved Date 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 Overview (06/04/2024): duplicate Left sided lacunar infarction 09/30/2023 06/04/2024 Overview (06/04/2024): 08/22/23 MRI "There is a chronic lacunar infarction within the left thalamus." Brain lesion 09/08/2023 09/29/2024 Vasogenic brain edema 09/22/20212021 Intracranial hemorrhage 08/18/2021 [...] as of this encounter (statuses as of 10/26/2024) Immunizations Name Administration Dates Next Due COVID-19, [...] Types Packs/Day Years Used Date Smoking Tobacco: Former Cigarettes 0.5 20 Q uit: 08/2024 Smokeless Tobacco: Never Comments:quit 1995;Pt starte d [...] 10/01/2024 Does the household have a re gular [...] on file Not on file Not on criminal profiler Not on file Not on file [...] of Assessment Author Yes 03/01/2024 1:15 PM EDEliezer Marroquin RN * Do you have difficulty dressing [...] encounter Miscellaneous Notes * Telephone Encounter - Janet Murdock LPN - 10/26/2024 12:53 PM EDT Pt currently in [facility] for failure to thrive, UTI * Telephone Encounter - Janet Murdock LPN - 10/21/2024 8:07 AM EDT Attempted to call patient's , there was no answer, left voicemail. When returns call transfer to dedicated nurse line. * Telephone Encounter - David Jones OSA - 10/20/2024 5:58 PM EDT Patient calling in to check on the status of previous message. Patient Called within 48 hour timeframe. Reminded patient of 48 hour turn-around time. Let him know that it was already sent as high prio, which is a 24 hour turnaround. * Telephone Encounter - Payton Whiteside OSA - 10/20/2024 5:51 PM EDT Patient's , Kwame, calling that he is having a hard time getting her to eat. Is asking if there is something that can be prescribed to get her to start eating again Tele: [phone] documented in this encounter Plan of Treatment Upcoming Encounters Date Type Department Care Team (Late st Contact Info) Description 11/30/2024 9:45 AM EDT Pharmacy Pharmacy Hematology Oncology [facility] [address] [place] [address] [facility] Hem/Onc [address] [place] [address] 02/14/2025 8:00 AM EDT Imaging Radiology [address], [place] [address] [place] [address] Scheduled [...] IN PAST YEAR FOR COPD 03/03/2025 03/03/2024 Influenza Vaccine (FLU shot) (Season Ended) 2025 03/08/2023, 04/04/2021, 04/04/2021, Additional history exists GFR 08/23/2025 08/23/2024, 02/18, 01/29/2024, Additional history [...] this encounter Medical Devices Implanted Type Area Circulation Manager Device Identifier Shelf Expiration Date Model / Serial / Lot Cover Nilda Hole 24mm 421.528 - [id number] Implanted:Qty: 1 on 08/20/2021 by Joni Hand III, [place] [facility] [place]: Head SYNTHES MAXILLOFACIAL 421.528 / / Plate Y Ti Lo Db 6h 21 421.517 - [id number] Implanted:Qty: 1 on 08/20/2021 by Joni Hand III, [place] [facility] [place]: Head SYNTHES MAXILLOFACIAL 421.517 / / Screw Ti Lo Pro Sd 4mm 400.834 - [id number] Implanted:Qty: 10 on 08/20/2021 by Joni Hand III, [place] [facility] [place]: Head SYNTHES MAXILLOFACIAL 400.834 / / Cement Hydroset Injectable 5cc - [id number] Implanted:Qty: 1 on 03/03/2024 by Joni Hand III, [place] [facility] [place]: Head SUZANNA [id number] 09/19/2025 [id number] / / [id number] Cover Bur Hol Ti Lo 17 421.527 - [id number] Implanted:Qty: 1 on 03/03/2024 by Joni Hand III, [place] [facility] [place]: Head SYNTHES MAXILLOFACIAL 421.527 / / Plate Ti Lo Pro Str 2h 421.502 - [id number] Implanted:Qty: 2 on 03/03/2024 by Joni Hand III, [place] [facility] [place]: Head SYNTHES MAXILLOFACIAL 421.502 / / Screw 4mm Ti Low Pro Sdrill - [id number] Implanted:Qty: 7 on 03/03/2024 by Joni Hand [...] and were consensually agreed upon. Care Teams Interlacer Relationship Specialty Start Date End Date Martin Solorio MD [address] [place] [address] PCP - General Family Medicine 02/20/21 documented as of this encounter
--- OUTSIDE RECORDS SUMMARY | 2024-11-21 14:37 | External Medical Summary | Summary of Care ---
Author Name Unknown Organization [facility] Address [address] [place] [address] Phone [phone] Care Team Providers Care Band Director Name Role Phone Martin Solorio MD Primary Care Provider [phone] Reason for Visit * Reason Onset Date Comments Hospital Follow-Up 08/13/2024 Encounter Details Date Type Department Care Team (Late st Contact Info) Description 08/13/2024 Telephone [facility] [address] [facility] [address] Martin Solorio MD [address] [facility] [place] [address] Hospital Follow-Up Allergies Active Allergy Reactions Criticality Noted Date Comments Erythromycin 08/15/1997 seizures documented as of this encounter (statuses as of 11/13/2024) Medications traZODone HCl 100 MG Oral Tablet [...] EDT 05/04/20 24 Active Vitamin D (Ergocalciferol) 41628 UNIT Oral Capsule Take 50,000 Units by [...] as of this encounter (statuses as of 11/13/2024) Active Problems Problem Noted Date Diagnosed Date History of stroke 06/04/2024 Overview (06/04/2024): 08/22/23 MRI "There is a chronic lacunar infarction within the left thalamus." Cerebral atrophy 09/30/2023 Spinal stenosis of cervical region 09/30/2023 Coronary artery disease invo lving [place] coronary artery of [place] heart without angina pectoris 09/30/2023 Pulmonary nodules [...] as of this encounter (statuses as of 11/13/2024) Resolved Problems Problem Noted Date Diagnosed Date [...] as of this encounter (statuses as of 11/13/2024) Immunizations Name Administration Dates Next Due COVID-19, [...] No 10/01/2024 Does the household have a [facility] source of income? (Household - [...] encounter Miscellaneous Notes * Telephone Encounter - Karina Sands OSA - 08/13/2024 8:46 AM EST Pt's spouse called and r/s pt's HD appt today due to pt having difficulties leaving the bed and spouse's worries of getting her into the car. Spouse requested later date, pt currently scheduled for HD 08/23. documented in this encounter Plan of Treatment Upcoming Encounters Date Type Department Care Team (Late st Contact Info) Description 11/30/2024 9:45 AM EDT Pharmacy Pharmacy Hematology Oncology [address] [address] [facility]c [address] [facility] [place] [address] 02/14/2025 8:00 AM EDT Imaging Radiology [facility]st [facility], [place] [address] [place] [address] Scheduled [...] this encounter Medical Devices Implanted Type Area Whipper Device Identifier Shelf Expiration Date Model / Serial / Lot Cover Nilda Hole 24mm 421.528 - [id number] Implanted:Qty: 1 on 08/20/2021 by Joni Hand III, MD at [place] [facility] [place] Right: Head SYNTHES MAXILLOFACIAL 421.528 / / Plate Y Ti Lo Db 6h 21 421.517 - [id number] Implanted:Qty: 1 on 08/20/2021 by Joni Hand III, MD at [place] [facility] [place] Right: Head SYNTHES MAXILLOFACIAL 421.517 / / Screw Ti Lo Pro Sd 4mm 400.834 - [id number] Implanted:Qty: 10 on 08/20/2021 by Joni Hand III, MD at [place] [facility] [place] Right: Head SYNTHES MAXILLOFACIAL 400.834 / / Cement Hydroset Injectable 5cc - [id number] Implanted:Qty: 1 on 03/03/2024 by Joni Hand III, MD at [place] [facility] [place] Left: Head SUZANNA [id number] 09/19/2025 [id number] / / [id number] Cover Bur Hol Ti Lo 17 421.527 - [id number] Implanted:Qty: 1 on 03/03/2024 by Joni Hand III, MD at [place] [facility] [place] Left: Head SYNTHES MAXILLOFACIAL 421.527 / / Plate Ti Lo Pro Str 2h 421.502 - [id number] Implanted:Qty: 2 on 03/03/2024 by Joni Hand III, MD at [place] [facility] [place] Left: Head SYNTHES MAXILLOFACIAL 421.502 / / Screw 4mm Ti Low Pro Sdrill - [id number] Implanted:Qty: 7 on 03/03/2024 by Joni Hand III, MD at [place] [facility] [place] Left: Head SYNTHES MAXILLOFACIAL 400.834E / / [...] and were consensually agreed upon. Care Teams Band Director Relationship Specialty Start Date End Date Martin Solorio MD [address] [place] [address] PCP - General Family Medicine 02/20/21 documented as of this encounter
--- OUTSIDE RECORDS SUMMARY | 2024-11-21 14:37 | External Medical Summary | Summary of Care ---
Author Name Unknown Organization [facility] Address [address] [place] [address] Phone [phone] Care Team Providers Care Logging Crew Foreman Name Role Phone Mera JOHNSON MD, Ari Marquez Primary Care Pr ovider Reason for Visit * Reason Comments Medication Refill Encounter Details Date Type Department Care Team (Late st Contact Info) Description 11/16/2024 Refill Hematology/Oncology [facility] [place] [address] [facility] [place] [address] Jessica Watkins MD [address] [facility] [place] [address] Malignant melanoma of left lower extremity (HCC) Allergies Active Allergy Reactions Criticality Noted Date Comments Erythromycin 08/15/1997 seizures documented as of this encounter (statuses as of 11/17/2024) Medications traZODone HCl 100 MG Oral Tablet [...] TAFINLAR. 60 Tablet 5 04/19/20 24 Active Vitamin D (Ergocalciferol) 68677 UNIT Oral Capsule Take 50,000 Units by [...] D (Cholecalciferol) 25 MCG (1000 UT) Oral CapsuleIndication s:Vitamin D deficiency 1 tab twice per week 08/24/19 25 Active Additional Information Patient not taking.Reported on 10/12/2024 Levothyroxine Sodium 200 MCG Oral Tablet (Levoxyl)Indicati ons:Acquired hypothyroidism Take 1 Tablet by mouth in the morning. (at least 30 min prior to breakfast or other meds). 90 Tablet 3 10/13/19 25 Active Trametinib Dimethyl Sulfoxide 0.5 MG Oral Tablet (Mekinist)Indicat ions:Malignant melanoma of left lower extremity (HCC) Take 3 tablets (1.5mg) by mouth in the morning. 90 Tablet 5 11/18/19 25 Active Dabrafenib Mesylate 75 MG Oral Capsule (Tafinlar) Take 1 capsule by mouth in the morning and 1 capsule before bedtime. 120 Capsule 2 11/18/19 25 Active Trametinib Dimethyl Sulfoxide 0.5 MG Oral Tablet (Mekinist)Indicat ions:Malignant melanoma of left lower extremity (HCC) Take 3 tablets (1.5mg) by mouth in the morning. 90 Tablet 5 5 3:21 PM EDT 05/04/20 24 025 Disconti nued(Ref ill) Dabrafenib Mesylate 75 MG Oral Capsule (Tafinlar) Take 1 capsule by mouth in the morning and 1 capsule before bedtime. 120 Capsule 2 5 3:17 PM EDT 05/04/20 24 025 Disconti nued(Ref ill) documented as of this encounter (statuses as of 11/17/2024) Active Problems Problem Noted Date Diagnosed Date [...] as of this encounter (statuses as of 11/17/2024) Resolved Problems Problem Noted Date Diagnosed Date [...] as of this encounter (statuses as of 11/17/2024) Immunizations Name Administration Dates Next Due COVID-19, [...] on file Not on file Not on customer insight analyst Not on file Not on file Not [...] 1:15 PM EDDo ольга Marroquin RN * Do you have difficulty [...] encounter Miscellaneous Notes * Telephone Encounter - Fuentes Acevedo RPh - 11/17/2024 11:35 AM EDT Refill Request EPIC Note Clinical Pharmacy Service (Hematology/Oncology): Refill Request(s) PHYSICIAN ACTION: No Assessment & Plan After reviewing the parameters in order to refill the patient's medication(s), the following was determined: The medication(s), dabrafenib/trametinib was refilled, but the following parameter(s) will be addressed by the oncologist: provider follow up - needs to keep upcoming OV in order for MTM to continue medication management per CPA No communication to requesting entity necessary Refill Parameters The following parameters were assessed in order to decide whether or not this refill was appropriate: Refill Parameter Comments If the patient was seen in the last 6 months (12 months for MPN patients) No - last OV 02/04/24 If the labs were completed per prescribing information recommendations or provider recommendations Yes- 08/23/24 If the labs were within normal limits or stable at baseline yes If the dose was correct and/or if the prescription sig reflects the current prescribed dose yes If there were any new drug interactions with the patient's oral chemotherapy TBD If there were any care gaps/baseline labs that need to be addressed Yes - admitted to [facility] 10/25/24-11/03/24 but treatment continued during and after admission Fuentes Acevedo RPh Ambulatory Clinical Pharmacist | Oral Chemotherapy Clinic [facility] 11/17/2024, 11:35 AM * Telephone Encounter - Fuentes Acevedo [facility] - 11/17/2024 11:35 AM EDT Signed Prescriptions: Disp Refills Trametinib Dimethyl Sulfoxide 0.5 MG Oral *90 Tab*5 Sig: Take 3 tablets (1.5mg) by mouth in the morning. Authorizing Provider: JESSICA WATKINS Ordering User: FUENTES ACEVEDO Dabrafenib Mesylate 75 MG Oral Capsule (Ta*120 Ca*2 Sig: Take 1 capsule by mouth in the morning and 1 capsule before bedtime. Authorizing Provider: JESSICA FARIA Ordering User: FUENTES ACEVEDO * Telephone Encounter - Miracle Howard [facility] - 11/16/2024 7:21 PM EDT Pending Prescriptions: Disp Refills Trametinib Dimethyl Sulfoxide 0.5 MG Oral *90 Tab*5 Sig: Take 3tablets (1.5mg) by mouth in the morning. Dabrafenib Mesylate 75 MG Oral Capsule (Ta*120 Ca*2 Sig: Take 1 capsule by mouth in the morning and 1 capsule before bedtime. documented in this encounter Plan of Treatment Upcoming Encounters Date Type Department Care Team (Late st Contact Info) Description 11/30/2024 9:45 AM EDT Pharmacy Pharmacy Hematology Oncology [address] [id number] [facility] [address] [facility] [place] [address] 12/01/2024 8:30 AM EDT Office Visit Hematology/Oncology [facility] [address] [place] [address] Malena Love, MOVEMENT THERAPIST [address] [place] [address] 02/14/2025 8:00 AM EDT Imaging Radiology [facility] 1st [facility] [address] [place] [address] Scheduled [...] 05/03/2023 03/08/2023, 04/22/2022, 04/22/2022, Additional history exists Mammogram 02/12/2025 02/13/2024, 01/19, [...] this encounter Medical Devices Implanted Type Area Tier Lift Operator Device Identifier Shelf Expiration Date Model / Serial / Lot Cover Nilda Hole 24mm 421.528 - [id number] Implanted:Qty: 1 on 08/20/2021 by Joni Hand III, MD at OR [facility] Right: Head SYNTHES MAXILLOFACIAL 421.528 / / Plate Y Ti Lo Db 6h 21 421.517 - [id number] Implanted:Qty: 1 on 08/20/2021 by Joni Hand III, MD at OR [facility] Right: Head SYNTHES MAXILLOFACIAL 421.517 / / Screw Ti Lo Pro Sd 4mm 400.834 - [id number] Implanted:Qty: 10 on 08/20/2021 by Joni Hand III, MD at OR [facility] Right: Head SYNTHES MAXILLOFACIAL 400.834 / / Cement Hydroset Injectable 5cc - [id number] Implanted:Qty: 1 on 03/03/2024 by Joni Hand III, MD at OR [facility] Left: Head SUZANNA [id number] 09/19/2025 [id number] / / [id number] Cover Bur Hol Ti Lo 17 421.527 - [id number] Implanted:Qty: 1 on 03/03/2024 by Joni Hand III, MD at OR [facility] Left: Head SYNTHES MAXILLOFACIAL 421.527 / / Plate Ti Lo Pro Str 2h 421.502 - [id number] Implanted:Qty: 2 on 03/03/2024 by Joni Hand III, MD at OR [facility] Left: Head SYNTHES MAXILLOFACIAL 421.502 / / Screw 4mm Ti Low Pro Sdrill - [id number] Implanted:Qty: 7 on 03/03/2024 by Joni Hand [...] and were consensually agreed upon. Care Teams Logging Crew Foreman Relationship Specialty Start Date End Date Ari Tesfaye III, MD [facility] [place] [address] PCP - General Internal Medicine 11/15/24 documented as of this encounter
--- OUTSIDE RECORDS SUMMARY | 2024-11-21 14:37 | External Medical Summary | Summary of Care ---
Author Name Unknown Organization [facility] Address [address] [place] [address] Phone [phone] Care Team Providers Care Hotbed Lever Operator Name Role Phone Mera JOHNSON MD, Ari Marquez Primary Care Pr ovider Reason for Visit * Reason Onset Date Comments Appointment 11/12/2024 Roland Encounter Details Date Type Department Care Team (Late st Contact Info) Description 11/12/2024 Telephone Hematology/Oncology [facility] 200 [facility] [place] [address] Benja Watkins MD 200 [place] [address] Appointment (Roland) Allergies Active Allergy Reactions Criticality Noted Date Comments Erythromycin 08/15/1997 seizures documented as of this encounter (statuses as of 11/16/2024) Medications traZODone HCl 100 MG Oral Tablet [...] EDT 05/04/20 24 Active Vitamin D (Ergocalciferol) 13338 UNIT Oral Capsule Take 50,000 Units by [...] needed for Pain, Moderate. 60 Tablet 08/16/19 Active Vitamin D (Cholecalciferol) 25 MCG (1000 [...] as of this encounter (statuses as of 11/16/2024) Active Problems Problem Noted Date Diagnosed Date History of stroke 06/04/2024 Overview (06/04/2024): 08/22/23 MRI "There is a chronic lacunar infarction within the left thalamus." Cerebral atrophy 09/30/2023 Spinal stenosis of cervical region 09/30/2023 Coronary artery disease invo lving [place] coronary artery of [place] heart without angina pectoris 09/30/2023 Pulmonary nodules [...] as of this encounter (statuses as of 11/16/2024) Resolved Problems Problem Noted Date Diagnosed Date [...] as of this encounter (statuses as of 11/16/2024) Immunizations Name Administration Dates Next Due COVID-19, [...] on file Not on file Not on engine repair supervisor Not on file Not on file [...] 1:15 PM Do ольга Connell RN * Because of a physical, mental, [...] Telephone Encounter - Salome Garcia OSA - 11/16/2024 8:08 AM EDT Pt is scheduled for 12/01 * Telephone Encounter - Salome Garcia OSA - 11/15/2024 8:15 AM EDT Left message x 2 * Telephone Encounter - Salome Garcia OSA - 11/12/2024 12:37 PM EDT Left message * Telephone Encounter - Bj Lara RN - 11/12/2024 12:30 PM EDT Scheduling- please call Clay back. Jayashree has a 3PM on 11/18 if this would work out for them. Malena also has availability on 12/01 @ 11:30 but would prefer to come sooner than this. * Telephone Encounter - Melva Parks OSA - 11/12/2024 12:18 PM EDT Clay at [facility] is calling, patient was [facility] from [facility] 11-03. While she was in the hospital she missed a follow up appt with Jayashree WELLS They are calling to get her rescheduled. THey can't bring her early childhood assistant or late afternoon Please call Clay back at [phone] x [phone] documented in this encounter Plan of Treatment Upcoming Encounters Date Type Department Care Team (Late st Contact Info) Description 11/30/2024 9:45 AM EDT Pharmacy Pharmacy Hematology Oncology [address] [address] [facility] Hem/Onc [address] [place] [facility] [place] [address] 12/01/2024 8:30 AM EDT Office Visit Hematology/Oncology [facility] [address] [place] [address] Malena Love, MARÍA ELENA [address] [place] [address] 02/14/2025 8:00 AM EDT Imaging Radiology [facility] 1st [facility] [address] [place] [address] [...] encounter Medical Devices Implanted Type Area Mold Washer Device Identifier Shelf Expiration Date Model / Serial / Lot Cover Nilda Hole 24mm 421.528 - [id number] Implanted:Qty: 1 on 08/20/2021 by Joni Hand III, MD at [place] [facility] Right: Head SYNTHES MAXILLOFACIAL 421.528 / / Plate Y Ti Lo Db 6h 21 421.517 - [id number] Implanted:Qty: 1 on 08/20/2021 by Joni Hand III, MD at OR [facility] Right: Head SYNTHES MAXILLOFACIAL 421.517 / / Screw Ti Lo Pro Sd 4mm 400.834 - [id number] Implanted:Qty: 10 on 08/20/2021 by Joni Hand III, MD at OR [facility] Right: Head SYNTHES MAXILLOFACIAL 400.834 / / Cement Hydroset Injectable 5cc - [id number] Implanted:Qty: 1 on 03/03/2024 by Joni Hand III, MD at OR [facility] Left: Head SUZANNA [id number] 09/19/2025 [id number] / / [id number] Cover Bur Hol Ti Lo 17 421.527 - [id number] Implanted:Qty: 1 on 03/03/2024 by Joni Hand III, MD at OR [facility] Left: Head SYNTHES MAXILLOFACIAL 421.527 / / Plate Ti Lo Pro Str 2h 421.502 - [id number] Implanted:Qty: 2 on 03/03/2024 by Joni Hand III, MD at [place] [facility] Left: Head SYNTHES MAXILLOFACIAL 421.502 / / Screw 4mm Ti Low Pro Sdrill - [id number] Implanted:Qty: 7 on 03/03/2024 by Joni Hand [...] and were consensually agreed upon. Care Teams Hotbed Lever Operator Relationship Specialty Start Date End Date Ari Tesfaye III, MD [facility] [place] [address] PCP - General Internal Medicine 11/15/24 documented as of this encounter
--- OUTSIDE RECORDS SUMMARY | 2024-11-21 14:37 | External Medical Summary | Summary of Care ---
Author Name Unknown Organization [facility] Address [address] [place] [address] Phone [phone] Care Team Providers Care Chili Pepper Grinder Name Role Phone Mera JOHNSON MD, Ari Marquez Primary Care Pr ovider Reason for Visit * Reason Onset Date Comments Advice 08/17/2024 Encounter Details Date Type Department Care Team (Late st Contact Info) Description 08/17/2024 Telephone [facility] [address] [place] [address] Martin Solorio MD [address] [facility] [place] [address] Advice Allergies Active Allergy Reactions Criticality [...] EDT 05/04/20 24 Active Vitamin D (Ergocalciferol) 11197 UNIT Oral Capsule Take 50,000 Units by [...] region 09/30/2023 Coronary artery disease invo lving [place] coronary artery of [place] heart without angina pectoris 09/30/2023 Pulmonary nodules [...] file Not on file 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 They hadmultiple change of dates and no response from family to re schedule so will cancel referral at thistime. Please fax new orders to [facility] Home Health * Telephone Encounter - Kati Calderon OSA - 08/17/2024 12:00 PM EST aMurizio is a [facility] Home Health nurse and is calling to speak with a nurse regarding pt. As they are unable to utilize services.call transferred to [place] documented in this encounter Plan of Treatment Upcoming Encounters Date Type Department Care Team (Late st Contact Info) Description 11/30/2024 9:45 AM EDT Pharmacy Pharmacy Hematology Oncology [address] [address] [facility], [facility] Hem/Onc [address] [place] [address] 12/01/2024 8:30 AM EDT Office Visit Hematology/Oncology [facility] [address] [place] [address] Malena Love CRNP [address] [place] [address] 02/14/2025 8:00 AM EDT Imaging Radiology [facility] 1st [facility] [address] [place] [address] Scheduled Procedures Name Priority Associated Diagnoses [...] this encounter Medical Devices Implanted Type Area Nursing Associate Device Identifier Shelf Expiration Date Model / Serial / Lot Cover Nilda Hole 24mm 421.528 - [id number] Implanted:Qty: 1 on 08/20/2021 by Joni Hand III, [place] [facility] Right: Head SYNTHES MAXILLOFACIAL 421.528 / / Plate Y Ti Lo Db 6h 21 421.517 - [id number] Implanted:Qty: 1 on 08/20/2021 by Joni Hand III, MD [place] [facility] Right: Head SYNTHES MAXILLOFACIAL 421.517 / / Screw Ti Lo Pro Sd 4mm 400.834 - [id number] Implanted:Qty: 10 on 08/20/2021 by Joni Hand III, MD [place] [facility] Right: Head SYNTHES MAXILLOFACIAL 400.834 / / Cement Hydroset Injectable 5cc - [id number] Implanted:Qty: 1 on 03/03/2024 by Joni Hand III, MD [place] [facility] Left: Head SUZANNA [id number] 09/19/2025 [id number] / / [id number] Cover Bur Hol Ti Lo 17 421.527 - [id number] Implanted:Qty: 1 on 03/03/2024 by Joni Hand III, MD at [place] [facility] Left: Head SYNTHES MAXILLOFACIAL 421.527 / / Plate Ti Lo Pro Str 2h 421.502 - [id number] Implanted:Qty: 2 on 03/03/2024 by Joni Hand III, MD [place] [facility] Left: Head SYNTHES MAXILLOFACIAL 421.502 / / Screw 4mm Ti Low Pro Sdrill - [id number] Implanted:Qty: 7 on 03/03/2024 by Joni Hand [...] and were consensually agreed upon. Care Teams Chili Pepper Grinder Relationship Specialty Start Date End Date Ari Tesfaye III, MD [address] [place] [address] PCP - General Internal Medicine 11/15/24 documented as of this encounter
--- OUTSIDE RECORDS SUMMARY | 2024-11-21 14:37 | External Medical Summary | Summary of Care ---
Author Name Unknown Organization [facility] Address [address] [place] [address] Phone [phone] Care Team Providers Care Rn Night Name Role Phone Mera JOHNSON MD, Ari Marquez Primary Care Pr ovider Reason for Visit * Reason Onset Date Comments Appointment 11/12/2024 Roland Encounter Details Date Type Department Care Team (Late st Contact Info) Description 11/12/2024 Telephone Hematology/Oncology [facility] 200 [facility] [place] [address] Benja Watkins MD 200 [place] [address] Appointment (Roland) Allergies Active Allergy Reactions Criticality Noted Date Comments Erythromycin 08/15/1997 seizures documented as of this encounter (statuses as of 11/15/2024) Medications traZODone HCl 100 MG Oral Tablet [...] EDT 05/04/20 24 Active Vitamin D (Ergocalciferol) 92557 UNIT Oral Capsule Take 50,000 Units by [...] as of this encounter (statuses as of 11/15/2024) Active Problems Problem Noted Date Diagnosed Date History of stroke 06/04/2024 Overview (06/04/2024): 08/22/23 MRI "There is a chronic lacunar infarction within the left thalamus." Cerebral atrophy 09/30/2023 Spinal stenosis of cervical region 09/30/2023 Coronary artery disease invo lving [place] coronary artery of [place] heart without angina pectoris 09/30/2023 Pulmonary nodules [...] as of this encounter (statuses as of 11/15/2024) Resolved Problems Problem Noted Date Diagnosed Date [...] as of this encounter (statuses as of 11/15/2024) Immunizations Name Administration Dates Next Due COVID-19, [...] on file Not on file Not on chalk tester Not on file Not on file Not [...] - 11/12/2024 12:18 PM EDT Clay at [facility] is calling, patient was discharged from [facility] 11-03. While she was in the hospital she missed a follow up appt with Jayashree WELLS They are calling to get her rescheduled. THey can't bring her presentation designer or late afternoon Please call Clay back at [phone] x [phone] documented in this encounter Plan of Treatment Upcoming Encounters Date Type Department Care Team (Late st Contact Info) Description 11/30/2024 9:45 AM EDT Pharmacy Pharmacy Hematology Oncology [facility] [address] [place] [address] [facility], [facility] Hem/Onc [address] [place] [address] 12/01/2024 8:30 AM EDT Office Visit Hematology/Oncology [place] [address] [facility] [place] [address] Malena Love, MARÍA ELENA 400 [facility] [place] [address] 02/14/2025 8:00 AM EDT Imaging Radiology [address] [place] [address] Scheduled Procedures Name Priority Associated [...] this encounter Medical Devices Implanted Type Area Farmworker General Device Identifier Shelf Expiration Date Model / Serial / Lot Cover Nilda Hole 24mm 421.528 - [id number] Implanted:Qty: 1 on 08/20/2021 by Joni Hand III, MD [place] [facility] Right: Head SYNTHES MAXILLOFACIAL 421.528 / / Plate Y Ti Lo Db 6h 21 421.517 - [id number] Implanted:Qty: 1 on 08/20/2021 by Joni Hand III, MD [place] [facility] Right: Head SYNTHES MAXILLOFACIAL 421.517 / / Screw Ti Lo Pro Sd 4mm 400.834 - [id number] Implanted:Qty: 10 on 08/20/2021 by Joni Hand III, MD at [place] [facility] Right: Head SYNTHES MAXILLOFACIAL 400.834 / / Cement Hydroset Injectable 5cc - [id number] Implanted:Qty: 1 on 03/03/2024 by Joni Hand III, MD at [place] [facility] Left: Head SUZANNA [id number] 09/19/2025 [id number] / / [id number] Cover Bur Hol Ti Lo 17 421.527 - [id number] Implanted:Qty: 1 on 03/03/2024 by Joni Hand III, MD at [place] [facility] Left: Head SYNTHES MAXILLOFACIAL 421.527 / / Plate Ti Lo Pro Str 2h 421.502 - [id number] Implanted:Qty: 2 on 03/03/2024 by Joni Hand III, MD at [place] [facility] Left: Head SYNTHES MAXILLOFACIAL 421.502 / / Screw 4mm Ti Low Pro Sdrill - [id number] Implanted:Qty: 7 on 03/03/2024 by Joni Hand III, MD at [place] [facility] Left: Head SYNTHES MAXILLOFACIAL 400.834E / / [...] and were consensually agreed upon. Care Teams Rn Night Relationship Specialty Start Date End Date Ari Tesfaye III, MD [address] [place] [address] PCP - General Internal Medicine 11/15/24 documented as of this encounter
--- OUTSIDE RECORDS SUMMARY | 2024-11-21 14:37 | External Medical Summary | Summary of Care ---
Author Name Unknown Organization [facility] Address [address] [place] [address] Phone [phone] Care Team Providers Care Stucco Plasterer Name Role Phone Martin Solorio MD Primary Care Provider Reason for Visit * Reason Onset Date Comments Appointment 11/12/2024 Roland Encounter Details Date Type Department Care Team (Late st Contact Info) Description 11/12/2024 Telephone Hematology/Oncology [facility] [address] [place] [address] Benja Watkins MD [address] [facility] [address] [place] [address] Appointment ([place]) Allergies Active Allergy Reactions Criticality Noted Date Comments Erythromycin 08/15/1997 seizures documented as of this encounter (statuses as of 11/12/2024) Medications traZODone HCl 100 MG Oral Tablet [...] EDT 05/04/20 24 Active Vitamin D (Ergocalciferol) 58202 UNIT Oral Capsule Take 50,000 Units by [...] as of this encounter (statuses as of 11/12/2024) Active Problems Problem Noted Date Diagnosed Date History of stroke 06/04/2024 Overview (06/04/2024): 08/22/23 MRI "There is a chronic lacunar infarction within the left thalamus." Cerebral atrophy 09/30/2023 Spinal stenosis of cervical region 09/30/2023 Coronary artery disease invo lving [place] coronary artery of [place] heart without angina pectoris 09/30/2023 Pulmonary nodules [...] as of this encounter (statuses as of 11/12/2024) Resolved Problems Problem Noted Date Diagnosed Date [...] as of this encounter (statuses as of 11/12/2024) Immunizations Name Administration Dates Next Due COVID-19, [...] - 11/12/2024 12:18 PM EDT Clay at [facility] is calling, patient was discharged from [facility] 11-03. While she was in the hospital she missed a follow up appt with Jayashree WELLS They are calling to get her rescheduled. THey can't bring her regional trainer or late afternoon Please call Clay back at [phone] x [phone] documented in this encounter Plan of Treatment Upcoming Encounters Date Type Department Care Team (Late st Contact Info) Description 11/30/2024 9:45 AM EDT Pharmacy Pharmacy Hematology Oncology [facility] [address] [place] [address] [facility] [place], [facility] Hem/Onc [address] [place] [address] 02/14/2025 8:00 AM EDT Imaging Radiology [facility]st [facility] [address] [place] [address] [...] this encounter Medical Devices Implanted Type Area Eviscerator Device Identifier Shelf Expiration Date Model / Serial / Lot Cover [place] 24mm 421.528 - [id number] Implanted:Qty: 1 on 08/20/2021 by Joni Hand III, MD at [place] [facility] Right: Head SYNTHES MAXILLOFACIAL 421.528 / / Plate Y Ti Lo Db 6h 21 421.517 - [id number] Implanted:Qty: 1 on 08/20/2021 by Joni Hand III, MD at OR [facility] Right: Head SY[employer]THES MAXILLOFACIAL 421.517 / / Screw Ti Lo Pro Sd 4mm 400.834 - [id number] Implanted:Qty: 10 on 08/20/2021 by Joni Hand III, MD at OR [facility] Right: Head SY[employer]THES MAXILLOFACIAL 400.834 / / Cement Hydroset Injectable 5cc - [id number] Implanted:Qty: 1 on 03/03/2024 by Joni Hand III, MD at OR [facility] Left: Head SUZANNA [id number] 09/19/2025 [id number] / / [id number] Cover Bur Hol Ti Lo 17 421.527 - [id number] Implanted:Qty: 1 on 03/03/2024 by Joni Hand III, MD at OR [facility] Left: Head SYNTHES MAXILLOFACIAL 421.527 / / Plate Ti Lo Pro Str 2h 421.502 - [id number] Implanted:Qty: 2 on 03/03/2024 by Joni Hand III, MD at OR [facility] Left: Head SYNTHES MAXILLOFACIAL 421.502 / / Screw 4mm Ti Low Pro Sdrill - [id number] Implanted:Qty: 7 on 03/03/2024 by Joni Hand [...] and were consensually agreed upon. Care Teams Stucco Plasterer Relationship Specialty Start Date End Date Martin Solorio MD [address] [place] [address] PCP - General Family Medicine 02/20/21 documented as of this encounter
--- OUTSIDE RECORDS SUMMARY | 2024-11-21 14:37 | External Medical Summary | Summary of Care ---
Author Name Unknown Organization [facility] Address [address] [place] [address] Phone [phone] Care Team Providers Care County Assessor Name Role Phone Martin Solorio MD Primary Care Provider Reason for Visit * Reason Onset Date Comments Pharmacy Questions 08/02/2024 Encounter Details Date Type Department Care Team (Late st Contact Info) Description 08/02/2024 Telephone Hematology/Oncology [facility] [place] [address] [place] [address] Benja Watkins MD [address] [facility] [place] [address] Pharmacy Questions Allergies Active Allergy Reactions Criticality Noted Date Comments Erythromycin 08/15/1997 seizures documented as of this encounter (statuses as of 11/02/2024) Medications traZODone HCl 100 MG Oral Tablet (Desyrel)Indicat [...] mouth in the morning. 90 Tablet 5 10/26/19 25 3:21 PM EDT Active Dabrafenib Mesylate 75 MG Oral Capsule (Tafinlar) Take 1 capsule by mouth in the morning and 1 capsule before bedtime. 120 Capsule 2 10/26/19 3:17 PM EDT Active Vitamin D (Ergocalciferol) 11901 UNIT Oral Capsule Take 50,000 Units by mouth once a week. For 8 weeks 8 Capsule Active Additional Information Patient not taking.Reported on 10/12/2024 Acetaminophen 325 MG Oral Tablet (Tylenol) Take 2 Tablets by mouth. Active MULTIVITAMINS PO TABS Take 1 Tablet by mouth every morning. 0 008 2024 Discontinued(E nd of Procedure) Losartan Potassium 50 MG Oral Tablet (Cozaar)Indicati ons:HTN, goal below 130/80 Take 1 Tablet by mouth in the morning. 90 Tablet 3 024 2024 Discontinued Cephalexin 250 MG Oral Capsule (Keflex) Take 1 Capsule by mouth in the morning and 1 Capsule at noon and 1 Capsule before bedtime. 024 2024 Discontinued(E nd of Procedure) Famotidine 20 MG Oral Tablet (Pepcid) 2024 Discontinued(E nd of Procedure) oxyCODONE HCl 5 MG Oral Tablet (Oxy IR) Take 1 Tablet by mouth. 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 60 Tablet 024 2024 Discontinued Levothyroxine Sodium 175 MCG Oral Tablet (Levoxyl)Indicat ions:Acquired hypothyroidism Take 1 Tablet by mouth daily first thing in the morning. (at least 30 min prior to breakfast or other meds) 90 Tablet 1 024 2024 Discontinued(M edication/Dose Changed) documented as of this encounter (statuses as of 11/02/2024) Active Problems Problem Noted Date Diagnosed Date History of stroke 06/04/2024 Overview (06/04/2024): 08/22/23 MRI "There is a chronic lacunar infarction within the left thalamus." Cerebral atrophy 09/30/2023 Spinal stenosis of cervical region 09/30/2023 Coronary artery disease invo lving [place] coronary artery of [place] heart without angina pectoris 09/30/2023 Pulmonary nodules [...] as of this encounter (statuses as of 11/02/2024) Resolved Problems Problem Noted Date Diagnosed Date [...] as of this encounter (statuses as of 11/02/2024) Immunizations Name Administration Dates Next Due COVID-19, [...] on file Not on file 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 This was worked and patient approved a mounika on 08/02/2024. Name of Medication: Mekinst / Taflinar Was patient spoken to: : YES Type of assistance: [facility] Card ID:[id number] Group: [id number] BIN: [id number] PCN: [id number] Name ofGrant:MELANOMA Balance 54k 04/29/2024-07/31/2025 Applications mailed: : NO Follow up: none mounika will cover in full until 07/31/2025 Elizabeth Reyes Medication Corporate Coordinator 08/02/2024.9:19 AM * Telephone Encounter - Yue Plummer CPhT - 08/02/2024 8:45 AM EST [facility] Patient Assistance Request: Medication name: mekinist Insurance? medicare d Co-pay amount: [id number] Action needed: funding Target ship date (if applicable): 08/05 IF HEM/ONC send TE: Confirm this TE is routed to [phone]: Yes All other department requests should be flagged in referral. [place] [phone]. Confirm encounter department selected is for prescribing physician: Yes If URGENT: Send TEAMS message to appropriate social sciences department chair (see "Patient Assistance Guide" - ROUTING POOLS:GSP on shared drive): [] Urgent message sent to: ruben Ceron Thank you, Yue Plummer CPhT [facility] 08/02/2024,8:46 AM documented in this encounter Plan of Treatment Upcoming Encounters Date Type Department Care Team (Late st Contact Info) Description 11/30/2024 9:45 AM EDT Pharmacy Pharmacy Hematology Oncology [facility] [address] [place] [address] [facility] [place] Hem/Onc [address] [place] [address] 02/14/2025 8:00 AM EDT Imaging Radiology [address] [place] [address] Scheduled Procedures Name Priority Associated [...] this encounter Medical Devices Implanted Type Area Dredge Worker Device Identifier Shelf Expiration Date Model / Serial / Lot Cover [place] Hole 24mm 421.528 - [id number] Implanted:Qty: 1 on 08/20/2021 by Joni Hand III, MD at [place] [facility] [place] Right: Head SYNTHES MAXILLOFACIAL 421.528 / / Plate Y Ti Lo Db 6h 21 421.517 - [id number] Implanted:Qty: 1 on 08/20/2021 by Joni Hand III, MD at [place] [facility] [place] Right: Head SYNTHES MAXILLOFACIAL 421.517 / / Screw Ti Lo Pro Sd 4mm 400.834 - [id number] Implanted:Qty: 10 on 08/20/2021 by Joni Hand III, MD at [place] [facility] [place] Right: Head SYNTHES MAXILLOFACIAL 400.834 / / Cement Hydroset Injectable 5cc - [id number] Implanted:Qty: 1 on 03/03/2024 by Joni Hand III, MD at [place] [facility] [place] Left: Head SUZANNA [id number] 09/19/2025 [id number] / / [id number] Cover Bur Hol Ti Lo 17 421.527 - [id number] Implanted:Qty: 1 on 03/03/2024 by Joni Hand III, MD at [place] [facility] [place] Left: Head SYNTHES MAXILLOFACIAL 421.527 / / Plate Ti Lo Pro Str 2h 421.502 - [id number] Implanted:Qty: 2 on 03/03/2024 by Joni Hand III, MD at [place] [facility] [place] Left: Head SYNTHES MAXILLOFACIAL 421.502 / / Screw 4mm Ti Low Pro Sdrill - [id number] Implanted:Qty: 7 on 03/03/2024 by Joni Hand III, MD at [place] [facility] [place] Left: Head SYNTHES [...] and were consensually agreed upon. Care Teams County Assessor Relationship Specialty Start Date End Date Martin Solorio MD [address] [facility] [place] [address] PCP - General Family Medicine 02/20/21 documented as of this encounter
--- OUTSIDE RECORDS SUMMARY | 2024-11-21 14:38 | External Medical Summary | Summary of Care ---
Author Name Unknown Organization [facility] Address [address] [place] [address] Phone [phone] Care Team Providers Care Broker Name Role Phone Martin Solorio MD Primary Care Provider [phone] Reason for Visit * Reason Onset Date Comments Advice 10/20/2024 Encounter Details Date Type Department Care Team (Late st Contact Info) Description 10/20/2024 Telephone [facility] [place] [address] [facility] [place] [address] Martin Solorio MD [address] [facility] [place] [address] Advice Allergies Active Allergy Reactions Criticality Noted Date Comments Erythromycin 08/15/1997 seizures documented as of this encounter (statuses as of 10/25/2024) Medications traZODone HCl 100 MG Oral Tablet [...] EDT 05/04/20 24 Active Vitamin D (Ergocalciferol) 02502 UNIT Oral Capsule Take 50,000 Units by [...] as of this encounter (statuses as of 10/25/2024) Active Problems Problem Noted Date Diagnosed Date [...] as of this encounter (statuses as of 10/25/2024) Resolved Problems Problem Noted Date Diagnosed Date [...] as of this encounter (statuses as of 10/25/2024) Immunizations Name Administration Dates Next Due COVID-19, [...] file Not on file 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 Not on file Not on file Not [...] get her to start eating again Tele: [phone] documented in this encounter Plan of Treatment Upcoming Encounters Date Type Department Care Team (Late st Contact Info) Description 11/30/2024 9:45 AM EDT Pharmacy Pharmacy Hematology Oncology [facility] [address] [place] [address] [facility] [place] Hem/Onc [address] [place] [address] 02/14/2025 8:00 AM EDT Imaging Radiology [facility] [address] [place] [address] Scheduled [...] this encounter Medical Devices Implanted Type Area Cell Room Supervisor Device Identifier Shelf Expiration Date Model / Serial / Lot Cover [place] Hole 24mm 421.528 - [id number] Implanted:Qty: 1 on 08/20/2021 by Joni Hand III, MD at [place] [facility] [place] Right: Head SYNTHES MAXILLOFACIAL 421.528 / / Plate Y Ti Lo Db 6h 21 421.517 - [id number] Implanted:Qty: 1 on 08/20/2021 by Joni Hand III, MD at [place] [facility] [place] Right: Head SYNTHES MAXILLOFACIAL 421.517 / / Screw Ti Lo Pro Sd 4mm 400.834 - [id number] Implanted:Qty: 10 on 08/20/2021 by Joni Hand III, MD at [place] [facility] [place] Right: Head SYNTHES MAXILLOFACIAL 400.834 / / Cement Hydroset Injectable 5cc - [id number] Implanted:Qty: 1 on 03/03/2024 by Joni Hand III, MD at [place] [facility] [place] Left: Head SUZANNA [id number] 09/19/2025 [id number] / / [id number] Cover Bur Hol Ti Lo 17 421.527 - [id number] Implanted:Qty: 1 on 03/03/2024 by Joni Hand III, MD at [place] [facility] [place] Left: Head SYNTHES MAXILLOFACIAL 421.527 / / Plate Ti Lo Pro Str 2h 421.502 - [id number] Implanted:Qty: 2 on 03/03/2024 by Joni Hand III, MD at [place] [facility] [place] Left: Head SYNTHES MAXILLOFACIAL 421.502 / / Screw 4mm Ti Low Pro Sdrill - [id number] Implanted:Qty: 7 on 03/03/2024 by Joni Hand III, MD at [place] [facility] [place] Left: Head SYNTHES MAXILLOFACIAL 400.834E / / [...] and were consensually agreed upon. Care Teams Broker Relationship Specialty Start Date End Date Martin Solorio MD [address] [place] [address] PCP - General Family Medicine 02/20/21 documented as of this encounter
--- NOTE | 2024-11-21 15:37 | Emergency Department Note ---
ED Visit Note I was consulted by the Advanced Practice Provider, Vidal Burch PA-C. I personally made/approved the management plan and take responsibility for the patient management. I performed a substantive portion of the visit. This includes the aspects of: -History/Physical/Personally seeing the patient -MDM .
[2024-11-21 15:56] LABS: Basophils # (auto) 0.06 K/uL (0.00-0.20); Basophils % (auto) 0.8 %; Eosinophils # (auto) 0.11 K/uL (0.00-0.50); Eosinophils % (auto) 1.4 %; Hematocrit (blood only) 41.1 % (37.0-47.0); Hemoglobin 13.9 g/dl (12.0-16.0); Immature Granulocytes # (auto) 0.06 K/uL (0.01-0.20); Immature Granulocytes % (auto) 0.8 %; Lymphocytes # (auto) 1.24 K/uL (1.20-3.40); Lymphocytes % (auto) 15.8 %; Mean Corpuscular Hemoglobin 30.9 pg (25.0-34.0); Mean Corpuscular Hgb Conc 33.8 g/dL (32.0-36.0); Mean Corpuscular Volume 91.3 fL (80.0-100.0); Mean Platelet Volume 8.2 fL (9.4-12.4); Monocytes # (auto) 0.82 K/uL (0.11-0.59); Monocytes % (auto) 10.4 %; Neutrophils # (auto) 5.57 K/uL (1.40-6.50); Neutrophils % (auto) 70.8 %; Platelet Count 482 K/uL (130-400); RDW Coefficient of Variation 14.8 % (11.5-14.5); RDW Standard Deviation 49.4 fL (36.4-46.3); White Blood Count 7.86 K/ul (4.8-10.8)
[2024-11-21 16:24] LABS: Albumin Level 3.8 gm/dl (3.4-5.0); BUN Creatinine Ratio 24.6 (10-20); Bilirubin Direct 0.1 mg/dl (0-0.2); Bilirubin,Total 0.4 mg/dl (0.2-1.0); Calcium 10.2 mg/dl (8.6-10.3); Creatinine Clr Calc Pharmacy 76.8 ml/min; Potassium 4.5 mmol/L (3.5-5.1); Total Protein 7.8 gm/dl (6.0-8.3)
--- NOTE | 2024-11-21 16:36 | XRay Report ---
EXAMINATION: X-ray hip bilateral 2 view with pelvis CLINICAL HISTORY: Fall from bed, right hip PRIORS: October 25, 2024 TECHNIQUE: AP view pelvis, multiple views right hip FINDINGS: Moderate osseous demineralization noted. Marked flattening of the humeral head noted, unchanged. Allowing for this, no displaced right hip fracture. Advanced degenerative change noted with wzlj-bz-fcdi appearance of the right hip superiorly. Healed or healing left pubic symphysis fracture noted No widening of the pubic symphysis. IMPRESSION: Osseous demineralization with flattening of the right femoral head, degenerative change and no displaced fracture identified. Electronically signed by Mala Santoyo 11-21-2024 4:36 PM
--- NOTE | 2024-11-21 16:39 | XRay Report ---
EXAMINATION: X-ray femur right 2 view routine CLINICAL HISTORY: Fall from bed, right hip PRIORS: October 25, 2024 TECHNIQUE: 2 views right femur FINDINGS: Moderate osseous demineralization noted. Marked flattening of the humeral head noted, unchanged. Allowing for this, no displaced right hip fracture. No femoral shaft fracture. Soft tissue calcification noted adjacent to the midshaft femur, unchanged. No suprapatella joint effusion. At the edge of the krzoh-rc-votx, the possibility of a right obturator ring fracture is raised. IMPRESSION: Osseous demineralization with no displaced femoral fracture The possibility of a right obturator ring fracture is raised, at the edge of the octen-bl-qcid . ACT 112: Positive. There are findings on this examination that require communication between the performing entity and the patient following Patient Test Result Information Act ([place] ACT 112) guidelines. Electronically signed by Mala Santoyo 11-21-2024 4:38 PM
--- NOTE | 2024-11-21 16:41 | XRay Report ---
EXAMINATION: X-ray ankle right 2 view CLINICAL HISTORY: Fall from bed PRIORS: None TECHNIQUE: Crosstable AP and lateral FINDINGS: Moderate osseous demineralization noted. Surgical screws present in the midfoot. 2 of the surgical screws are fractured but not displaced. Calcaneus unremarkable. Talar dome is intact. No acute fracture or dislocation. Moderate degenerative change of the ankle. Talar dome unremarkable. No soft tissue abnormality. IMPRESSION: Osseous demineralization with no plain film evidence of a displaced fracture. Fractured surgical screws. Electronically signed by Mala Santoyo 11-21-2024 4:40 PM
--- NOTE | 2024-11-21 17:24 | CT Scan Report ---
EXAMINATION: Head CT without CLINICAL HISTORY: Fell from bed PRIORS: 04 September 2024 TECHNIQUE: Contiguous axial images were obtained through the head without the use of intravenous contrast. Sagittal and coronal reformations are supplied. FINDINGS: Mild parenchymal volume is noted. Bilateral chronic infarctions and craniotomy changes, unchanged. Baer-white differentiation is preserved. No edema or midline shift. No new intra-axial or extra-axial hemorrhage. Ventricles are normal in size and configuration. Brainstem and cerebellum have a normal appearance. Calvarium unremarkable. Paranasal sinuses and mastoid air cells are well-pneumatized. Globes are intact. No retrobulbar abnormality. IMPRESSION: No CT evidence of an acute intracranial abnormality. Electronically signed by Mala Santoyo 11-21-2024 5:24 PM
--- NOTE | 2024-11-21 17:28 | CT Scan Report ---
EXAMINATION: Chest CT without CLINICAL HISTORY: Fall from bed COMPARISON: None TECHNIQUE: Contiguous axial images were obtained through the chest without the use of intravenous contrast. Sagittal and coronal reformations are supplied. FINDINGS: Moderate osseous demineralization noted. Allowing for this, no sternal, clavicle, scapula or thoracic acute osseous abnormality. Moderate degenerative change present through the thoracic spine. No displaced acute rib fracture. Healing left lateral 5th and 6th fractures present. No pneumothorax or pulmonary contusion. No pleural or pericardial effusion. Trachea and mainstem bronchi patent. Moderate atherosclerotic disease of the proximal aorta present. No soft tissue swelling or hematoma in the subcutaneous tissues of the chest wall. Limited visualization of the upper abdomen is unremarkable. IMPRESSION: No CT evidence of an acute or traumatic abnormality in the chest. Two healing left-sided rib fractures. Electronically signed by Mala Santoyo 11-21-2024 5:24 PM
--- NOTE | 2024-11-21 17:28 | CT Scan Report ---
EXAM: CT cervical spine without contrast CLINICAL HISTORY: Fall from bed TECHNIQUE: Contiguous axial images were obtained through the cervical spine without the use of intravenous contrast. Sagittal and coronal reformations are supplied. PRIORS: None FINDINGS: Moderate osseous demineralization noted. Anterior fusion hardware present at C3-C7. Intervertebral disc spacers noted. Allowing for cervical hardware, approximately 4 mm of retrolisthesis of C4 with respect to C3 is noted, image 58, series 601, age-indeterminate. No priors available for comparison. Hardware creates significant artifact. Moderate facet hypertrophic changes noted. Severe facet hypertrophic changes at C2-C3. No acute displaced fracture or dislocation is identified, allowing for hardware and motion artifact. No prevertebral soft tissue swelling. IMPRESSION: 1. Anterior fusion hardware noted with lordotic straightening and possible retrolisthesis of C4 with respect to C3, age-indeterminate. Please correlate with prior imaging if appropriate. No prevertebral soft tissue swelling. 2. No displaced fracture or dislocation Electronically signed by Mala Santoyo 11-21-2024 5:24 PM
--- NOTE | 2024-11-21 17:57 | History & Physical Report ---
Date of Service November 21, 2024 Assessment & Plan (1) Fall: (2) AMS (altered mental status): (3) Melanoma metastatic to brain: (4) Weakness generalized: (5) Degenerative joint disease of right hip: Plan Worsening AMS - Admit to med tele - Differential Diagnosis for hyponatremia includes current medications of carbamazepine causing such, hypothyroidism, possible dehydration/poor Po intake, hx of craniotomy - UA and urine culture pending - Na 128 on admission, appear baseline is 131-133. Will check urine studies - Will obtain MRI brain w/wo contrast to eval with hx of brain mets, possibly worsening AMS Melanoma with mets to brain s/p Craniotomy in Feb 2024 Seizure disorder -Dx 2021, original site left leg, s/p XRT, s/p L frontal craniotomy at [facility] [place] [place] 03/13 -Forgetful with waxing and waning mentation since February, per . Worsening fpc memory as above -Cont dabrafenib and Mekinist from home Limited bone scan of the right lower extremity did not show any metastatic disease - Follow-up with oncology as outpatient - Cont carbamazepine Fall Right knee pain/ severe right hip osteoarthritis Right hip DJD Ambulatory Dysfunction Age-related osteoporosis with current pathologic fracture, right acetabulum, r ight femoral head, L rib fractures Chronic Right acetabulum fracture - Will check XR lumbar spine as pain localized to lower back today - Previously during last hospital stay 10/25-11/03 ortho evaluated, no knee injection, continue PT/OT - Pain control as needed, tylenol PO now, IV tylenol and toradol prn, lidocaine patch -- Tramadol previously discontinued as it can interfere with Carbamazepine use atch - Fall precautions HTN - Home meds: losartan HLD - Continue atorvastatin Mood disorder -Continue paroxetine Hypothyroidism -Continue Levothyroxine 200 mcg DVT ppx: teds, scds Lines: PIV was pulled out by pt in the ER, being replaced by nurse now FEN/GI: Allow HH diet CODE: Full Dispo: From home, likely to remain in the hospital x 1 night on Obs, CM to assist with dc planning back to [facility] care in the morning I spent a total of 77 minutes with greater than 50% of that time face to face with the patient, personally reviewing all current laboratories, imaging studies, past medication reconciliation, outpatient chart review, and discussion with specialists to collaborate care for the patient excluding time spent in the performance of separately billed services or time spent by another provider/QHP. Please see attending documentation for corrections and/or additions. History of Present Illness Chief Complaint: Fall from bed Primary Care Provider: [facility] This is a 64-year-old female resident of [facility] with PMHx of melanoma with metastatic disease of the brain (dx 2021, original site left leg, s/p XRT, s/p L frontal craniotomy at [facility] [place] [place] 03/13) complicated by seizure disorder, chronic hyponatremia, hypertension, CAD, seizure disorder, cerebral atrophy, mood disorder and other medical problems listed below who presents from home. Pt was previously admitted to [facility] hospital 09/03/24 and discharged to [facility] on 09/09/24 and from there was discharged home. She was also recently admitted from 10/25/26-11/03/24 for acute pain in R knee, severe right hip osteoarthritis, age related osteoporosis found to have multiple old fractures. Ortho was involved at that time and did not recommend surgery. Today she presents after being found on the ground out of bed at [facility], no new fractures noted on imaging today. Her main complaint today is pain in her back since falling. When asked specifics about events this morning she has difficulty recalling anything other than she fell. When asked date, she repeats 1953. Pt denies headache, lightheadedness, dizziness. She says she is eating and drinking well. AMS noted to be worse per , specifically with worsening marketing automation specialist memory which had been fairly intact per his report. Short term memory has been an issue since craniotomy. reports plan is to be at [facility] for 2 more weeks, then would attempt to go home again. Allergies Allergy/AdvReac Type Severity Reaction Status Date / Time erythromycin base Allergy Unknown BROUGHT ON Verified 07/06/24 12:42 SEIZURES Macrolide Antibiotics Allergy Unknown Unknown Verified 07/06/24 12:42 Ketolide Antibiotics Allergy Unknown Unknown. Uncoded 07/06/24 12:42 On file w/ [facility]. Home Medications Medication Instructions Recorded Confirmed Type triamcinolone acetonide 0.1 % 1 applic topical BID itching #15 04/28/24 10/25/24 Rx topical cream grams cholecalciferol (vitamin D3) 25 25 mcg PO MOFR@0900 09/03/24 10/25/24 History mcg (1,000 unit) tablet levothyroxine 200 mcg tablet 200 mcg PO DAILY 09/03/24 10/25/24 History acetaminophen 500 mg tablet 1,000 mg (2 x 500 mg) PO Q8H #14 09/09/24 10/25/24 Rx (Tylenol Extra Strength) tabs atorvastatin 20 mg tablet 20 mg PO QPM #30 tabs 09/09/24 10/25/24 Rx carbamazepine 200 mg 400 mg (2 x 200 mg) PO BID #120 09/09/24 10/25/24 Rx tablet,extended release,12 hr tabs dabrafenib 75 mg capsule (Tafinlar) 75 mg PO AMHS #30 caps 09/09/24 10/25/24 Rx losartan 50 mg tablet 50 mg PO QAM #30 tabs 09/09/24 10/25/24 Rx paroxetine HCl 40 mg tablet 40 mg PO QAM #30 tabs 09/09/24 10/25/24 Rx trametinib 0.5 mg tablet (Mekinist) 1.5 mg (3 x 0.5 mg) PO DAILY #30 09/09/24 10/25/24 Rx tabs docusate sodium 100 mg capsule 100 mg PO DAILY 10/25/24 10/25/24 History diclofenac sodium 1 % topical gel 4 g EXT BID #100 grams 11/03/24 Rx (Voltaren Arthritis Pain) lansoprazole 30 mg delayed 30 mg PO QAM #30 tabs 11/03/24 Rx release,disintegrating tablet (Prevacid SoluTab) Past Med/Surg History Problem List (Updated 10/27/24 @ 17:27 by Dell Heck PA-C) 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 Weakness generalized Advanced care planning/counseling discussion Pelvic fracture UTI (urinary tract infection) (Acute) Age-related osteopor w/curr pathol fx of lower leg w/routine heal Counseling regarding goals of care Pain provoked by trauma Palliative care by specialist Fall Contusion of right shoulder (Acute) Left rib fracture (Acute) Closed fracture of right hip (Acute) Acetabulum fracture, right (Acute) Closed fracture of pubic ramus AMS (altered mental status) Fracture of left hip Pelvic ring fracture Weakness (Acute) Hypothyroidism Combined receptive and expressive aphasia Vasogenic edema (Acute) Memory changes Melanoma metastatic to brain (Chronic) Medical History Seizure disorder History of melanoma October 2017 --diag with superficial spreading melanoma of the left leg, [id number], Stage IIIc. 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 S/p re-excision and SLNB 12/26/2017 (-margins; 3 of 3 nodes involved) S/p nivolumab 02/04 - 04/08 S/p right parietal craniotomy for near total resection 08/20/2021 S/p Radiation therapy to brain mets, including post op bed; Aug -September 2021 S/p dabrafinib and trametinib 10/09 --dose reduced in mid 2021; ongoing Rx Jul 2022--SRS to left frontal lobe Aug 2023--s/p ALYSHA and bx of Left Frontal mass. Path-- brain parenchyma with reactive gliosis.Negative for malignancy. MRI feb 20, 2024--Parenchymal abnormality at the treatment site measuring 1.9 cm, not fully characterized. Surrounding vasogenic edema and mild mass effect, increased since pretreatment imaging. 03/03/2024--s/p L frontal craniotomy for resection ( Dr Hand) ; path showed Residual/recurrent metastatic melanoma Surgical History S/P craniotomy Dr. Hand [facility] 03/03/24 Left frontal craniotomy for tumor resection with vycor tube and dynamic retraction, use of brainlab neuronavigation, use of neurophysiological monitoring (SSEP/MEP/motor language, subcortical stimulation) Status post right foot surgery History of knee replacement procedure of left knee History of partial hysterectomy H/O craniotomy History of back surgery History of brain surgery x2 Hx of cholecystectomy Family History Grandfather (Maternal) Cancer Breast cancer Sister Cancer Breast cancer Father Cancer Colon cancer Social History Smoking Status: Current every day smoker Tobacco Type: Cigarettes Cigarettes Per Day: 13; Second Hand Exposure: Yes; Do You Dip or Chew Tobacco: No; Hx Alcohol Use: No Hx Substance Use: No Preferred Language: Omani Communication Ability: Impaired Visual Impairment: No Limitations Hearing Ability: Normal Baster Hand Required: No Beliefs That Will Affect Care: None marital status: Current Living Situation: Spouse Current Living Situation Comment: lives at home with Kwame current occupational status: employed 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 [employer] Feels Safe at Home: Yes Physical Activity Frequency: Does not Exercise Assistive Devices: Bedside Commode, Walker and Other Review of Systems Review of Systems: Constitutional: No fever, sweats or chills Eyes: No diplopia, no worsening or blurred vision ENT: normal hearing, no trouble swallowing Respiratory: No cough, sputum, dyspnea at rest or on exertion Cardiovascular: No chest pain, tightness or palpitations Back: pain generalized, cannot pinpoint Abdomen: No pain, nausea, vomiting, diarrhea or constipation Musculoskeletal: No joint pain, calf pain, swelling Neurologic: No weakness, numbness/tingling, or balance problems Psychiatric: No anxiety or depression Skin: No rash or itch Physical Exam Physical Exam: General: awake, alert, white, thin, female, anxious Head: Normocephalic, atraumatic ENT: PERRL, EOMI, no pharyngeal exudate, mucous membranes dry Chest: Clear to auscultation, on room air, no adventitious breath sounds Cardiac: sinus tachy with HR in low 100s, no murmur, no JVD, normal peripheral pulses, good capillary refill Abdominal: NABS x 4 quadrants, soft, nondistended, nontender to palpation, no rebound or guarding Extremities: Normal inspection, no peripheral edema or erythema, calfs nontender to palpation Psych: Normal mood and affect Neuro: AAO x 2, not oriented to time, strength intact bilaterally and rated 5/5, no motor deficits, speech is clear, no peripheral sensory deficits Results & Data Results & Data Vital Signs (Past 12 Hours) Vital Signs Temp Pulse Pulse Resp BP BP Pulse Ox 11/21/24 16:34 87 16 129/64 99 11/21/24 15:19 106 H 11/21/24 14:44 87 L 11/21/24 14:22 36.8 C 97 H 17 126/79 92 O2 Del Method O2 Flow Rate 11/21/24 16:34 Nasal Cannula 2 11/21/24 15:19 11/21/24 14:44 Room Air 11/21/24 14:22 Room Air Laboratory Results 11/21/24 15:30 WBC 7.86 RBC 4.50 Hgb 13.9 Hct 41.1 MCV 91.3 MCH 30.9 MCHC 33.8 RDW Std Deviation 49.4 H RDW Coeff of Kelvin 14.8 H Plt Count 482 H MPV 8.2 L Immature Gran % (Auto) 0.8 Neut % (Auto) 70.8 Lymph % (Auto) 15.8 Lumpkin % (Auto) 10.4 Eos % (Auto) 1.4 Baso % (Auto) 0.8 Neut # (Auto) 5.57 Lymph # (Auto) 1.24 Lumpkin # (Auto) 0.82 H Eos # (Auto) 0.11 Baso # (Auto) 0.06 Immature Gran # (Auto) 0.06 Sodium 128 L Potassium 4.5 Chloride 92 L Carbon Dioxide 30 Anion Gap 6 BUN 14 Creatinine 0.57 L Est Cr Clr Drug Dosing 76.8 eGFR 100.16 BUN/Creatinine Ratio 24.6 H Glucose 98 Calcium 10.2 Total Bilirubin 0.4 Direct Bilirubin 0.1 AST 34 ALT 19 Alkaline Phosphatase 236 H Total Protein 7.8 Albumin 3.8 Globulin 4.0 Albumin/Globulin Ratio 1.0 Diagnostic Findings Cervical Spine CT 11/21/24 14:44 EXAM: CT cervical spine without contrast CLINICAL HISTORY: Fall from bed TECHNIQUE: Contiguous axial images were obtained through the cervical spine without the use of intravenous contrast. Sagittal and coronal reformations are supplied. PRIORS: None FINDINGS: Moderate osseous demineralization noted. Anterior fusion hardware present at C3-C7. Intervertebral disc spacers noted. Allowing for cervical hardware, approximately 4 mm of retrolisthesis of C4 with respect to C3 is noted, image 58, series 601, age-indeterminate. No priors available for comparison. Hardware creates significant artifact. Moderate facet hypertrophic changes noted. Severe facet hypertrophic changes at C2-C3. No acute displaced fracture or dislocation is identified, allowing for hardware and motion artifact. No prevertebral soft tissue swelling. IMPRESSION: 1. Anterior fusion hardware noted with lordotic straightening and possible retrolisthesis of C4 with respect to C3, age-indeterminate. Please correlate with prior imaging if appropriate. No prevertebral soft tissue swelling. 2. No displaced fracture or dislocation Electronically signed by Mala Santoyo 11-21-2024 5:24 PM Femur X-Ray 11/21/24 14:44 EXAMINATION: X-ray femur right 2 view routine CLINICAL HISTORY: Fall from bed, right hip PRIORS: October 25, 2024 TECHNIQUE: 2 views right femur FINDINGS: Moderate osseous demineralization noted. Marked flattening of the humeral head noted, unchanged. Allowing for this, no displaced right hip fracture. No femoral shaft fracture. Soft tissue calcification noted adjacent to the midshaft femur, unchanged. No suprapatella joint effusion. At the edge of the [id number], the possibility of a right obturator ring fracture is raised. IMPRESSION: Osseous demineralization with no displaced femoral fracture The possibility of a right obturator ring fracture is raised, at the edge of the [id number] . ACT 112: Positive. There are findings on this examination that require communication between the performing entity and the patient following Patient Test Result Information Act ([place] ACT 112) guidelines. Electronically signed by Mala Santoyo 11-21-2024 4:[address] 11/21/24 14:44 EXAMINATION: Head CT without CLINICAL HISTORY: Fell from bed PRIORS: 04 September 2024 TECHNIQUE: Contiguous axial images were obtained through the head without the use of intravenous contrast. Sagittal and coronal reformations are supplied. FINDINGS: Mild parenchymal volume is noted. Bilateral chronic infarctions and craniotomy changes, unchanged. Baer-white differentiation is preserved. No edema or midline shift. No new intra-axial or extra-axial hemorrhage. Ventricles are normal in size and configuration. Brainstem and cerebellum have a normal appearance. Calvarium unremarkable. Paranasal sinuses and mastoid air cells are well-pneumatized. Globes are intact. No retrobulbar abnormality. IMPRESSION: No CT evidence of an acute intracranial abnormality. Electronically signed by Mala Santoyo 11-21-2024 5:24 PM Hip/Pelvis X-Ray 11/21/24 14:44 EXAMINATION: X-ray hip bilateral 2 view with pelvis CLINICAL HISTORY: Fall from bed, right hip PRIORS: October 25, 2024 TECHNIQUE: AP view pelvis, multiple views right hip FINDINGS: Moderate osseous demineralization noted. Marked flattening of the humeral head noted, unchanged. Allowing for this, no displaced right hip fracture. Advanced degenerative change noted with [id number] appearance of the right hip superiorly. Healed or healing left pubic symphysis fracture noted No widening of the pubic symphysis. IMPRESSION: Osseous demineralization with flattening of the right femoral head, degenerative change and no displaced fracture identified. Electronically signed by Mala Santoyo 11-21-2024 4:36 PM Ankle X-Ray 11/21/24 14:54 EXAMINATION: X-ray ankle right 2 view CLINICAL HISTORY: Fall from bed PRIORS: None TECHNIQUE: Crosstable AP and lateral FINDINGS: Moderate osseous demineralization noted. Surgical screws present in the midfoot. 2 of the surgical screws are fractured but not displaced. Calcaneus unremarkable. Talar dome is intact. No acute fracture or dislocation. Moderate degenerative change of the ankle. Talar dome unremarkable. No soft tissue abnormality. IMPRESSION: Osseous demineralization with no plain film evidence of a displaced fracture. Fractured surgical screws. Electronically signed by Mala Santoyo 11-21-2024 4:[address] 11/21/24 14:54 EXAMINATION: Chest CT without CLINICAL HISTORY: Fall from bed COMPARISON: None TECHNIQUE: Contiguous axial images were obtained through the chest without the use of intravenous contrast. Sagittal and coronal reformations are supplied. FINDINGS: Moderate osseous demineralization noted. Allowing for this, no sternal, clavicle, scapula or thoracic acute osseous abnormality. Moderate degenerative change present through the thoracic spine. No displaced acute rib fracture. Healing left lateral 5th and 6th fractures present. No pneumothorax or pulmonary contusion. No pleural or pericardial effusion. Trachea and mainstem bronchi patent. Moderate atherosclerotic disease of the proximal aorta present. No soft tissue swelling or hematoma in the subcutaneous tissues of the chest wall. Limited visualization of the upper abdomen is unremarkable. IMPRESSION: No CT evidence of an acute or traumatic abnormality in the chest. Two healing left-sided rib fractures. Electronically signed by Mala Santoyo 11-21-2024 5:24 PM Code Status & VTE Plan Code Status Full code Supervising Physician Co-Signing Physician Notes Patient is a 64-year-old female with history of metastatic melanoma, chronic hyponatremia, seizure disorder, hypertension, hyperlipidemia, hypothyroidism and other medical problems presents after history of fall from bed while at rehab facility. Patient was recently hospitalized and managed for pathological fracture of right acetabulum, right femoral head and left rib fractures, UTI. She was thought to be more confused from her baseline. Patient pleasantly confused and unable to give detailed situation as to why she fell from the bed. She is unsure if she hit her head or lost consciousness. No family available at bedside. Most of the history is obtained from ED physician and old records. Patient denies any chest pain, dyspnea, fever, chills, dysuria, hematuria, abdominal pain. I personally reviewed blood work and imaging studies. Imaging studies showed no acute fractures. Sodium noted to be 128 slightly lower from baseline. CT head showed no acute process. Urinalysis currently pending. Physical Exam: Vitals signs as noted above General Appearance: Thin, frail, ill-appearing, no apparent distress Head: normocephalic, +traumatic, mild abrasions of lip, face Eyes: normal inspection, EOMI Neck: supple, Trachea midline Respiratory/Chest: Normal breath sounds, CTA, No accessory muscle use Cardiovascular: S1, S2, faint murmur Abdomen/GI:Soft, Non tender, Bowel sounds present Back: Lower cloth washer back tender Extremities/Musculoskeletal:normal inspection, no edema Pelvis: decreased ROM Neurologic/Psych:AAOX2, grossly no focal neurological deficits Skin: normal color, warm Multiple falls Acute on chronic hyponatremia: Likely multifactorial secondary to carbamazepine, hypothyroidism, poor oral intake Worsening memory issues likely secondary to metastatic brain Ambulatory dysfunction Failure to thrive Seizure disorder Will obtain MRI brain Neurochecks, fall precautions, PT OT Urine sodium, urine and serum osmolality Gentle IV fluids Goals of care and need to be readdressed Pain control as needed Consider IV antibiotics if UA suggestive of UTI Will obtain lumbar x-ray given back pain secondary to fall Will request palliative care input to address goals of care I personally interviewed and examined the patient at bedside. I have reviewed the advanced practitioner's documentation on the date of service referred in note and agree with plan. Patient's care is coordinated with Katharine Vázquez PA-C. Please refer to the documentation above for details of patient's presentation and for discussion of other issues. I spent a total [id number] coordinating, documenting, and providing care for this patient excluding time spent in the performance of separately billed services or time spent by another provider/QHP. (1) Fall Encounter type: initial encounter Qualified Code(s): W19.XXXA - Unspecified fall, initial encounter
[2024-11-21] MEDS: SODIUM CHLORIDE 0.9% 1,000 ML IV SCH (19:26)
[2024-11-21] MEDS: ACETAMINOPHEN 325 MG TAB PO STA (19:42)
--- NOTE | 2024-11-21 20:15 | XRay Report ---
EXAM: XR lumbar spine 2-3V CLINICAL HISTORY: back pain, suspected fall. TECHNIQUE: X-ray images of the lumbar spine were obtained in anteroposterior (AP)Ls spot view, Oblique and lateral projections. COMPARISON: Lumbar spine, dated 09/10/2019 FINDINGS: Alignment: A progression is noted regarding L4-L5 grade II spondylolisthesis (12 mm compared to 9 mm). Unchanged compression collapse affecting the upper Vertebral endplates of the L5 vertebral body. A newly developed straightening of the lumbar spine, denoting back muscle spasm. No abnormal curvature, such as scoliosis or lordosis. Unchanged lower facet joints arthropathy. The sacroiliac joints appear normal. Vertebral Bodies: A stable lumbar spondylodegenerative change, evident by the presence of marginal osteophytes. No evidence of fractures, other compression deformities, or significant osseous lesions. Intervertebral Disc Spaces: A newly developed narrowed L1-L2 disc space. Unchanged narrowed L3-L4 and L4-L5 disc spaces. Soft Tissues: Right hypochondria cholecystectomy surgical clips. Paraspinal soft tissues are of normal thickness. No evidence of paraspinal soft tissue swelling or mass effect. Additional Findings: Abnormal, irregular spherical shape of the right femoral head. No other significant abnormalities are noted. IMPRESSION: 1. A progression is noted regarding L4-L5 grade II spondylolisthesis (12 mm compared to 9 mm). 2. Unchanged compression collapse affecting the upper Vertebral endplates of the L5 vertebral body. 3. A newly developed straightening of the lumbar spine, denoting back muscle spasm. 4. A newly developed narrowed L1-L2 disc space. 5. A stable lumbar spondylodegenerative change with narrowed L3-L4 and L4-L5 disc spaces and lower facet joints arthropathy. 6. Abnormal, irregular spherical shape of the right femoral head. A dedicated X-ray study of the right hip joint is recommended. If clinically warranted. Disclaimer: A subtle bone abnormality or fracture may not be readily apparent on X-rays, thus, clinical correlation and further imaging, including follow-up CT, MRI, or follow-up X-rays, are advised as needed. Electronically signed by Fredrick Orta 11-21-2024 8:15 PM
[2024-11-21] MEDS ORDERED: ONDANSETRON INJ 2 MG/ML 2 ML VIAL IV PRN (22:10)
[2024-11-21] MEDS ORDERED: ACETAMINOPHEN 1,000 MG/100 ML VIAL IV PRN (22:10)
--- NOTE | 2024-11-21 22:47 | Emergency Department Note ---
History of Present Illness General Chief complaint: Fall Time Seen by Provider: 11/21/24 14:35 History of Present Illness Maximum Pain Intensity: 8 This 64-year-old female With a history of malignant melanoma with metastasis to the brain, recent altered mental status, previous acetabular fracture, previous pubic rami fracture, hypothyroidism, and multiple recent hospital admissions, is seen today for evaluation after falling from her bed at [facility]. She arrives by ambulance. She reportedly was found by nursing staff on the floor, complaining of right-sided pain in her ribs, hip, leg, and ankle. Her bed was reportedly in its highest height setting. There is no report of her striking her head. She denies striking her head but is not the best historian. she has no other complaints at this point. No family members accompany her today. Home Medications Medication Instructions Recorded Confirmed Type triamcinolone acetonide 0.1 % 1 applic topical BID itching #15 04/28/24 11/21/24 Rx topical cream grams cholecalciferol (vitamin D3) 25 25 mcg PO MOFR@0900 09/03/24 11/21/24 History mcg (1,000 unit) tablet levothyroxine 200 mcg tablet 200 mcg PO DAILY 09/03/24 11/21/24 History acetaminophen 500 mg tablet 1,000 mg (2 x 500 mg) PO Q8H #14 09/09/24 11/21/24 Rx (Tylenol Extra Strength) tabs atorvastatin 20 mg tablet 20 mg PO QPM #30 tabs 09/09/24 11/21/24 Rx dabrafenib 75 mg capsule (Tafinlar) 75 mg PO AMHS #30 caps 09/09/24 11/21/24 Rx losartan 50 mg tablet 50 mg PO QAM #30 tabs 09/09/24 11/21/24 Rx paroxetine HCl 40 mg tablet 40 mg PO QAM #30 tabs 09/09/24 11/21/24 Rx trametinib 0.5 mg tablet (Mekinist) 1.5 mg (3 x 0.5 mg) PO DAILY #30 09/09/24 11/21/24 Rx tabs docusate sodium 100 mg capsule 100 mg PO DAILY 10/25/24 11/21/24 History diclofenac sodium 1 % topical gel 4 g EXT BID #100 grams 11/03/24 11/21/24 Rx (Voltaren Arthritis Pain) lansoprazole 30 mg delayed 30 mg PO QAM #30 tabs 11/03/24 11/21/24 Rx release,disintegrating tablet (Prevacid SoluTab) carbamazepine 200 mg tablet 600 mg PO QAM 11/21/24 11/21/24 History carbamazepine 200 mg 400 mg PO QPM 11/21/24 11/21/24 History tablet,extended release,12 hr Allergies Allergy/AdvReac Type Severity Reaction Status Date / Time telithromycin [From Ketek] Allergy Unknown Unknown Verified 11/21/24 22:15 erythromycin base AdvReac Unknown BROUGHT ON Verified 11/21/24 22:16 SEIZURES Macrolide Antibiotics AdvReac Unknown Caused Verified 11/21/24 22:15 seizures prior to brain surgery Past Med/Surg History Problem List (Updated 11/24/24 @ 19:20 by Bear Burch PA-C) Acute pain of right lower extremity (Acute) Acute hyponatremia (Acute) Fall at intermediate (Acute) 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 Weakness generalized Advanced care planning/counseling discussion Pelvic fracture Age-related osteopor w/curr pathol fx of lower leg w/routine heal Counseling regarding goals of care Pain provoked by trauma Palliative care by specialist Fall Contusion of right shoulder (Acute) Left rib fracture (Acute) Closed fracture of right hip (Acute) Acetabulum fracture, right (Acute) Closed fracture of pubic ramus AMS (altered mental status) Fracture of left hip Pelvic ring fracture Weakness (Acute) Hypothyroidism Combined receptive and expressive aphasia Vasogenic edema (Acute) Memory changes Melanoma metastatic to brain (Chronic) Medical History Seizure disorder History of melanoma October 2017 --diag with superficial spreading melanoma of the left leg, [id number], Stage IIIc. 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 S/p re-excision and SLNB 12/26/2017 (-margins; 3 of 3 nodes involved) S/p nivolumab 02/04 - 04/08 S/p right parietal craniotomy for near total resection 08/20/2021 S/p Radiation therapy to brain mets, including post op bed; Aug -September 2021 S/p dabrafinib and trametinib 10/09 --dose reduced in mid 2021; ongoing Rx Jul 2022--SRS to left frontal lobe Aug 2023--s/p ALYSHA and bx of Left Frontal mass. Path-- brain parenchyma with reactive gliosis.Negative for malignancy. MRI feb 20, 2024--Parenchymal abnormality at the treatment site measuring 1.9 cm, not fully characterized. Surrounding vasogenic edema and mild mass effect, increased since pretreatment imaging. 03/03/2024--s/p L frontal craniotomy for resection ( Dr Hand) ; path showed Residual/recurrent metastatic melanoma Surgical History S/P craniotomy Dr. Hand [facility] Neurosurgery 03/03/24 Left frontal craniotomy for tumor resection with vycor tube and dynamic retraction, use of brainlab neuronavigation, use of neurophysiological monitoring (SSEP/MEP/motor language, subcortical stimulation) Status post right foot surgery History of knee replacement procedure of left knee History of partial hysterectomy H/O craniotomy History of back surgery History of brain surgery x2 Hx of cholecystectomy Family History Grandfather (Maternal) Cancer Breast cancer Sister Cancer Breast cancer Father Cancer Colon cancer Social History Smoking Status: Never smoker Tobacco Type: Cigarettes Cigarettes Per Day: 13; Second Hand Exposure: Yes; Do You Dip or Chew Tobacco: No; Hx Alcohol Use: No Hx Substance Use: No Preferred Language: Mongolian Communication Ability: Impaired Visual Impairment: No Limitations Hearing Ability: Normal Motel Front Desk Clerk Required: No Beliefs That Will Affect Care: None marital status: Current Living Situation: Residential Current Living Situation Comment: [facility] current occupational status: employed 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 [employer] Feels Safe at Home: Yes Safety Concerns: Feels Safe At This Time Physical Activity Frequency: Does not Exercise Assistive Devices: Walker Review of Systems Unobtainable due to cognitive status Physical Exam Vital Signs Vital Signs - 24 hr 11/21/24 14:22 11/21/24 14:44 11/21/24 15:19 Temperature 36.8 C Temperature Source Oral Pulse Rate 97 H 106 H Pulse Rate [Apical] Pulse Rhythm [Apical] Pulse Strength [Apical] Respiratory Rate 17 Respiratory Effort / Characteristics Non-Labored Spontaneous Respiratory Depth Normal Respiratory Pattern Regular Blood Pressure 126/79 Blood Pressure [Right Arm] Blood Pressure Mean 94 Blood Pressure Mean [Right Arm] Blood Pressure Position [Right Arm] Pulse Oximetry 92 87 L Oxygen Delivery Method Room Air Room Air Oxygen Flow Rate Sepsis Recent Fever Within 48 Hours No Sepsis New/Unexplained Change in Mental Status N/A Sepsis Action Taken by Nursing No Action Required Oxygen Flow Rate - Titration 2 Pulse Oximetry Post Tiitration 96 11/21/24 16:34 11/21/24 18:00 Temperature Temperature Source Pulse Rate Pulse Rate [Apical] 87 102 H Pulse Rhythm [Apical] Regular Regular Pulse Strength [Apical] Normal Normal Respiratory Rate 16 20 Respiratory Effort / Characteristics Non-Labored Spontaneous Non-Labored Spontaneous Respiratory Depth Normal Normal Respiratory Pattern Regular Regular Blood Pressure Blood Pressure [Right Arm] 129/64 120/87 Blood Pressure Mean Blood Pressure Mean [Right Arm] 85 98 Blood Pressure Position [Right Arm] Lying Pulse Oximetry 99 100 Oxygen Delivery Method Nasal Cannula Nasal Cannula Oxygen Flow Rate 2 2 Sepsis Recent Fever Within 48 Hours Sepsis New/Unexplained Change in Mental Status Sepsis Action Taken by Nursing Oxygen Flow Rate - Titration Pulse Oximetry Post Tiitration General: Frail, middle-aged white female, in no acute distress. Appears in some discomfort. Laying on the bed. Awake and conversive, but not oriented to day, date, time, or place. Pleasantly confused. When asked about her stay at [facility], she states about 2 weeks. When asked about a tattoo on her left ankle, she is has had about 2 weeks. When asked about her well-healed surgical scar on her left knee from previous TKA, she states about 2 weeks. Skin: Warm and dry with fair turgor. No rashes. No ecchymosis on her arm, chest wall, hip, buttock, or leg. She has a longstanding tattoo present on her left ankle. Well-healed surgical scar on her left knee. HEENT: Normocephalic atraumatic. Eyes PERRLA, EOMI. No conjunctiva or scleral injection. Ears TMs intact bilaterally with good light reflexes. No erythema or bulging. No hemotympanum. Canals are patent. Nares patent bilaterally without turbinate enlargement. No significant drainage. No epistaxis. Oropharynx without erythema or exudate. Uvula midline, oral mucosa moist. No lesions present. Lymphatics are palpated without anterior or posterior chain enlargement or tenderness. Heart: Heart RRR. No MGR. No carotid bruit. Peripheral pulses are 2+. Lungs: Lungs are clear to auscultation. No crackles rhonchi or wheezing. Good air movement. The patient is able to take a deep breath. Abdomen: Abdomen was inspected, auscultated, and palpated. Bowel sounds present x 4. Soft, nontender to palpation. No hepato-splenomegaly. No masses noted. No rebound, negative [place] sign. No pain over McBurney's point. No CVA tenderness. Musculoskeletal: Gross motor function of the arms is intact. She has no complaints of discomfort with passive motion of the shoulder, elbow, or wrist on either arm. She complains of pain with palpation over the right SI joint, right buttock, right greater trochanter, and right hip. She also complains of pain with palpation over the right thigh, primarily laterally. There is no discomfort with palpation over the right knee or right alba. She complains of pain with palpation over the right ankle both medially and laterally. There is no pain with logrolling of the right hip or passive flexion of the hip or knee. She does complain of pain with passive motion of the right ankle. Left hip, knee, and ankle move actively and passively without complaints of pain. She denies any discomfort with palpation of the cervical, thoracic, or lumbar spine. Neurologic: Gross sensation is intact across the upper and lower extremities by soft touch. Course Administered Medications Atorvastatin Calcium (Atorvastatin 20 Mg Tab) 20 mg PO QPM [facility] Stop: 12/21/24 22:09 Last Admin: 11/23/24 19:26 Dose: 20 mg Documented By: Admin: 11/22/24 20:37 Dose: 20 mg Documented By: Admin: 11/21/24 23:16 Dose: 20 mg Documented By: GAIL Carbamazepine (Carbamazepine 200 Mg Tablet) 600 mg PO [facility] Stop: 12/22/24 08:59 Last Admin: 11/24/24 08:39 Dose: 600 mg Documented By: Admin: 11/23/24 10:13 Dose: 600 mg Documented By: Admin: 11/22/24 08:41 Dose: 600 mg Documented By: AMS Carbamazepine (Carbamazepine Xr 200 Mg Tabcr) 400 mg PO QPM [facility] Stop: 12/21/24 22:09 Last Admin: 11/23/24 19:31 Dose: 400 mg Documented By: Admin: 11/22/24 20:38 Dose: 400 mg Documented By: Admin: 11/21/24 23:16 Dose: 400 mg Documented By: GAIL Diclofenac Sodium (Diclofenac Sod 1% Gel 100 Gm Tube) 4 gm EXT BID [facility]; Protocol Stop: 12/21/24 22:09 Last Admin: 11/24/24 08:40 Dose: 4 gm Documented By: ЕЛЕНА Admin: 11/23/24 19:27 Dose: 4 gm Documented By: Admin: 11/23/24 07:48 Dose: 4 gm Documented By: Admin: 11/22/24 20:30 Dose: 4 gm Documented By: Admin: 11/22/24 08:40 Dose: 4 gm Documented By: Admin: 11/21/24 23:17 Dose: 4 gm Documented By: GAIL Docusate Sodium (Docusate Sodium 100 Mg Cap) 100 mg PO DAILY [facility] Stop: 12/22/24 08:59 Last Admin: 11/24/24 08:40 Dose: 100 mg Documented By: ЕЛЕНА Admin: 11/23/24 07:48 Dose: 100 mg Documented By: Admin: 11/22/24 08:40 Dose: 100 mg Documented By: ASMITA Piperacillin Sod/Tazobactam Sod (Zosyn) 4.5 gm in 100 mls @ 25 mls/hr IV Q8H [facility]; Protocol Stop: 11/26/24 07:44 Last Admin: 11/24/24 14:53 Dose: 25 mls/hr Documented By: ЕЛЕНА Infusion: 11/24/24 09:04 Dose: Infused Documented By: ЕЛЕНА Admin: 11/24/24 08:34 Dose: 200 mls/hr Documented By: ЕЛЕНА Acetaminophen (Ofirmev) 1,000 mg in 100 mls @ 400 mls/hr IV Q8H PRN PRN Reason: Moderate Pain, fever over 101F Stop: 11/24/24 22:09 Last Infusion: 11/24/24 08:49 Dose: Infused Documented By: ЕЛЕНА Admin: 11/24/24 08:34 Dose: 400 mls/hr Documented By: ЕЛЕНА Vancomycin HCl (Vancomycin Hcl) 1,000 mg in 270 mls @ 200 mls/hr IV Q12H [facility] Stop: 11/26/24 15:59 Last Infusion: 11/24/24 16:29 Dose: Infused Documented By: ЕЛЕНА Admin: 11/24/24 15:08 Dose: 200 mls/hr Documented By: ЕЛЕНА Lactated Ringer's (Lr) 1,000 mls @ 80 mls/hr IV .[id number] [facility] Stop: 11/27/24 12:14 Last Admin: 11/24/24 18:23 Dose: 80 mls/hr Documented By: ЕЛЕНА Infusion: 11/24/24 18:23 Dose: Infused Documented By: ЕЛЕНА Admin: 11/24/24 13:18 Dose: 80 mls/hr Documented By: ЕЛЕНА Lansoprazole (Lansoprazole 30 Mg Soltab) 30 mg PO [facility] Stop: 12/22/24 08:59 Last Admin: 11/24/24 08:39 Dose: 30 mg Documented By: ЕЛЕНА Admin: 11/23/24 07:49 Dose: 30 mg Documented By: Admin: 11/22/24 08:40 Dose: 30 mg Documented By: ASMITA Levothyroxine Sodium (Levothyroxine Sodium 200 Mcg Tablet) [facility]: 12/22/24 06:29 Last Admin: 11/24/24 05:54 Dose: 200 mcg Documented By: Admin: 11/23/24 06:04 Dose: 200 mcg Documented By: Admin: 11/22/24 04:25 Dose: 200 mcg Documented By: GAIL Lidocaine (Lidocaine 5% 1 Patch) 1 patch TD [facility] Stop: 12/22/24 08:59 Last Admin: 11/23/24 19:48 Dose: 1 patch Documented By: Admin: 11/23/24 07:48 Dose: 1 patch Documented By: Admin: 11/22/24 08:40 Dose: 1 patch Documented By: ASMITA Losartan Potassium (Losartan Potassium 50 Mg Tab) [facility] Stop: 12/22/24 08:59 Last Admin: 11/24/24 08:39 Dose: 50 mg Documented By: ЕЛЕНА Admin: 11/23/24 07:49 Dose: 50 mg Documented By: Admin: 11/22/24 08:40 Dose: 50 mg Documented By: ASMITA Magnesium Oxide (Magnesium Oxide 400 Mg Tab) 400 mg PO BID [facility] Stop: 12/23/24 08:59 Last Admin: 11/24/24 08:39 Dose: 400 mg Documented By: ЕЛЕНА Admin: 11/23/24 19:27 Dose: 400 mg Documented By: Admin: 11/23/24 10:13 Dose: 400 mg Documented By: SRAVANI Miscellaneous (Remove Lidoderm Patch) 1 each N/A DAILY@2100 [facility] Stop: 12/22/24 20:59 Last Admin: 11/23/24 19:49 Dose: 1 each Documented By: Admin: 11/22/24 20:31 Dose: 1 each Documented By: EVA Paroxetine HCl (Paroxetine Hcl 20 Mg Tab) 40 mg PO QAM [facility] Stop: 12/22/24 08:59 Last Admin: 11/24/24 08:39 Dose: 40 mg Documented By: ЕЛЕНА Admin: 11/23/24 07:49 Dose: 40 mg Documented By: Admin: 11/22/24 08:41 Dose: 40 mg Documented By: ASMITA Vitamin D (Cholecalciferol 25 Mcg (1000 Units) Tab) 25 mcg PO MOFR@0900 [facility] Stop: 12/22/24 08:59 Last Admin: 11/22/24 08:41 Dose: 25 mcg Documented By: ASMITA Discontinued Medications Acetaminophen (Acetaminophen 325 Mg Tab) 650 mg PO NOW STA Stop: 11/21/24 18:30 Last Admin: 11/21/24 19:42 Dose: 650 mg Documented By: RIA Albuterol (Albut/Ipratrop 3mg/0.5mg Neb 3 Ml Vial) Confirm Administered Dose 3 ml .ROUTE .STK-MED ONE Stop: 11/24/24 08:01 Last Admin: 11/24/24 09:42 Dose: Not Given Documented By: UJAN Dabrafenib (Dabrafenib Mesylate) 1 each PO BID [facility] Stop: 12/22/24 12:29 Last Admin: 11/24/24 08:39 Dose: 1 each Documented By: ЕЛЕНА Co-signed By: YANI Admin: 11/23/24 19:28 Dose: 1 each Documented By: ANUM Co-signed By: PATRICIA Admin: 11/23/24 07:49 Dose: 1 each Documented By: SRAVANI Co-signed By: SEDRICK Admin: 11/22/24 20:35 Dose: 1 each Documented By: GAIL Co-signed By: PATRICIA Admin: 11/22/24 12:47 Dose: 1 each Documented By: ASMITA Co-signed By: YANI Gadobutrol (Gadobutrol 65ml Vial) 5 ml IV ONCE ONE Stop: 11/21/24 23:17 Last Admin: 11/21/24 23:17 Dose: 5 ml Documented By: BENJI Sodium Chloride (Nss) 1,000 mls @ 80 mls/hr IV .[id number] [facility] Stop: 11/22/24 06:44 Last Infusion: 11/22/24 08:03 Dose: Infused Documented By: Admin: 11/21/24 19:26 Dose: 80 mls/hr Documented By: Ceftriaxone Sodium (Rocephin) 2,000 mg in 50 mls @ 100 mls/hr IV Q24H [facility] Stop: 12/03/24 18:29 Last Infusion: 11/23/24 20:18 Dose: Infused Documented By: Admin: 11/23/24 19:26 Dose: 100 mls/hr Documented By: ANUM Vancomycin HCl (Vancomycin Hcl) 1,000 mg in 270 mls @ 200 mls/hr IV NOW ONE Stop: 11/24/24 09:20 Last Infusion: 11/24/24 10:52 Dose: Infused Documented By: ЕЛЕНА Admin: 11/24/24 09:31 Dose: 200 mls/hr Documented By: ЕЛЕНА Lactated Ringer's (Lr) 500 mls @ 999 mls/hr IV .Q31M ONE Stop: 11/24/24 12:44 Last Infusion: 11/24/24 13:49 Dose: Infused Documented By: ЕЛЕНА Admin: 11/24/24 13:18 Dose: 999 mls/hr Documented By: ЕЛЕНА Ketorolac Tromethamine (Ketorolac Tromethamine 15 Mg/Ml Vial) 15 mg IV Q6H PRN PRN Reason: Mild Pain (Scale 1, 2, 3) Stop: 11/26/24 22:09 Last Admin: 11/23/24 19:28 Dose: 15 mg Documented By: Admin: 11/23/24 06:05 Dose: 15 mg Documented By: Admin: 11/22/24 20:30 Dose: 15 mg Documented By: Admin: 11/22/24 04:24 Dose: 15 mg Documented By: GAIL Normananeous (Tafinlar~Order Awaiting Action) 1 each N/A QS [facility] Stop: 12/21/24 22:29 Last Admin: 11/22/24 07:07 Dose: Not Given Documented By: Admin: 11/21/24 23:28 Dose: Not Given Documented By: GAIL Corral (Mekinist~Order Awaiting Action) 1 each N/A QS [facility] Stop: 12/21/24 22:29 Last Admin: 11/22/24 07:07 Dose: Not Given Documented By: Admin: 11/21/24 23:27 Dose: Not Given Documented By: GAIL Olanzapine (Olanzapine 10 Mg/2.1 Ml Sdv) 2.5 mg IM NOW STA Stop: 11/22/24 20:00 Last Admin: 11/22/24 20:30 Dose: 2.5 mg Documented By: EVA Olanzapine (Olanzapine 10 Mg/2.1 Ml Sdv) 2.5 mg IM NOW STA Stop: 11/22/24 22:48 Last Admin: 11/22/24 23:03 Dose: 2.5 mg Documented By: EVA Olanzapine (Olanzapine Zydis 5 Mg Orally Dis. Tab) 2.5 mg PO QAM [facility] Stop: 12/23/24 10:29 Last Admin: 11/24/24 08:40 Dose: 2.5 mg Documented By: ЕЛЕНА Admin: 11/23/24 11:12 Dose: 2.5 mg Documented By: SRAVANI Trametinib (Trametinib Dimethyl Sulfoxide 0.5 Mg Tablets) 3 each PO DAILY [facility] Stop: 12/22/24 12:29 Last Admin: 11/24/24 08:39 Dose: 3 each Documented By: ЕЛЕНА Co-signed By: YANI Admin: 11/23/24 07:50 Dose: 3 each Documented By: SRAVANI Co-signed By: SEDRICK Admin: 11/22/24 12:48 Dose: 3 each Documented By: ASMITA Co-signed By: YANI Medical Decision Making Differential Diagnosis Intracranial bleed, cervical spine injury, pelvic fracture, hip fracture, Medical Records Attestation: I reviewed the patient's medical records. Home Medications Current Medication List: was personally reviewed by me Laboratory Data CBC obtained today shows a normal white count at 7.86. H&H of 13.9 and 41.1. Platelets are elevated at 482,000. Chemistry panel shows a sodium of 128, potassium 4.5, chloride 92. BUN of 14 with creatinine 0.57. Her sodium normally runs in the 132-133 range. Glucose is 98. LFTs are unremarkable. Alkaline phosphatase is elevated at 236. urinalysis with culture and Quad nasal swab for COVID, RSV, and influenza A/B were also ordered but not completed at the time of patient admission. 11/24/24 06:36 11/24/24 06:36 Lab Results 11/21/24 11/21/24 11/22/24 Range/Units 15:30 19:11 06:23 WBC 7.86 6.42 (4.8-10.8) K/ul RBC 4.50 3.59 L (4.20-5.40) M/uL Hgb 13.9 11.2 L (12.0-16.0) g/dl Hct 41.1 32.7 L (37.0-47.0) % MCV 91.3 91.1 (80.0-100.0) fL MCH 30.9 31.2 (25.0-34.0) pg MCHC 33.8 34.3 (32.0-36.0) g/dL RDW Std Deviation 49.4 H 49.8 H (36.4-46.3) fL RDW Coeff of Kelvin 14.8 H 14.8 H (11.5-14.5) % Plt Count 482 H 452 H (130-400) K/uL MPV 8.2 L 8.4 L (9.4-12.4) fL Immature Gran % (Auto) 0.8 % Neut % (Auto) 70.8 % Lymph % (Auto) 15.8 % [place] % (Auto) 10.4 % Eos % (Auto) 1.4 % Baso % (Auto) 0.8 % Neut # (Auto) 5.57 (1.40-6.50) K/uL Lymph # (Auto) 1.24 (1.20-3.40) K/uL [place] # (Auto) 0.82 H (0.11-0.59) K/uL Eos # (Auto) 0.11 (0.00-0.50) K/uL Baso # (Auto) 0.06 (0.00-0.20) K/uL Immature Gran # (Auto) 0.06 (0.01-0.20) K/uL Sodium 128 L 132 L (136-145) mmol/L Potassium 4.5 3.9 (3.5-5.1) mmol/L Chloride 92 L 97 L (98-107) mmol/L Carbon Dioxide 30 30 (21-32) mmol/L Anion Gap 6 5 (3-11) BUN 14 14 (6-23) mg/dl Creatinine 0.57 L 0.47 L (0.6-1.2) mg/dl Est Cr Clr Drug Dosing 76.8 91.4 ml/min eGFR 100.16 104.93 BUN/Creatinine Ratio 24.6 H 29.8 H (10-20) Glucose 98 90 (70-99(Fasting)) mg/dl POC Glucose (70-99) mg/dl Osmolality 278 L (280-300) mOsm/kg Calcium 10.2 9.2 (8.6-10.3) mg/dl Phosphorus (2.5-4.9) mg/dl Magnesium (1.7-2.4) mg/dl Total Bilirubin 0.4 (0.2-1.0) mg/dl Direct Bilirubin 0.1 (0-0.2) mg/dl AST 34 (13-39) U/L ALT 19 (7-52) U/L Alkaline Phosphatase 236 H (34-104) U/L Total Protein 7.8 (6.0-8.3) gm/dl Albumin 3.8 (3.4-5.0) gm/dl Globulin 4.0 (2.5-4.0) gm/dl Albumin/Globulin Ratio 1.0 (0.9-2) TSH 4.932 H (0.300-4.500) uIu/ml Free T4 1.08 (0.61-1.60) ng/dl Urine Color Urine Appearance (Clear) Urine pH (4.5-7.5) Ur Specific [place] (1.000-1.030) Urine Protein (Negative) Urine Glucose (UA) (Negative) Urine Ketones (Negative) Urine Blood (Negative) Urine Nitrite (Negative) Urine Bilirubin (Negative) Urine Urobilinogen (Negative) Ur Leukocyte Esterase (Negative) Urine WBC (Auto) (0-5) /hpf Urine RBC (Auto) (0-2) /hpf U Hyaline Cast (Auto) (0-2) /lpf U Epithel Cells (Auto) (0-2) /hpf Urine Bacteria (Auto) (None Seen) Calcium Oxalate Crystal (None Prsent) Urine Yeast (None Prsent) Urine Osmolality (500-800) mOsm/kg Ur Random Sodium mmol/L Nasal Screen MRSA (PCR) Negative (Negative) SARS-CoV-2, RNA, NAAT NEGATIVE (NEGATIVE) Ref Lab Test Result 11/22/24 11/22/24 11/22/24 Range/Units 20:19 21:29 Unknown WBC (4.8-10.8) K/ul RBC (4.20-5.40) M/uL Hgb (12.0-16.0) g/dl Hct (37.0-47.0) % MCV (80.0-100.0) fL MCH (25.0-34.0) pg MCHC (32.0-36.0) g/dL RDW Std Deviation (36.4-46.3) fL RDW Coeff of Kelivn (11.5-14.5) % Plt Count (130-400) K/uL MPV (9.4-12.4) fL Immature Gran % (Auto) % Neut % (Auto) % Lymph % (Auto) % [place] % (Auto) % Eos % (Auto) % Baso % (Auto) % Neut # (Auto) (1.40-6.50) K/uL Lymph # (Auto) (1.20-3.40) K/uL [place] # (Auto) (0.11-0.59) K/uL Eos # (Auto) (0.00-0.50) K/uL Baso # (Auto) (0.00-0.20) K/uL Immature Gran # (Auto) (0.01-0.20) K/uL Sodium (136-145) mmol/L Potassium (3.5-5.1) mmol/L Chloride (98-107) mmol/L Carbon Dioxide (21-32) mmol/L Anion Gap (3-11) BUN (6-23) mg/dl Creatinine (0.6-1.2) mg/dl Est Cr Clr Drug Dosing ml/min eGFR BUN/Creatinine Ratio (10-20) Glucose (70-99(Fasting)) mg/dl POC Glucose 100 H (70-99) mg/dl Osmolality (280-300) mOsm/kg Calcium (8.6-10.3) mg/dl Phosphorus (2.5-4.9) mg/dl Magnesium (1.7-2.4) mg/dl Total Bilirubin (0.2-1.0) mg/dl Direct Bilirubin (0-0.2) mg/dl AST (13-39) U/L ALT (7-52) U/L Alkaline Phosphatase (34-104) U/L Total Protein (6.0-8.3) gm/dl Albumin (3.4-5.0) gm/dl Globulin (2.5-4.0) gm/dl Albumin/Globulin Ratio (0.9-2) TSH (0.300-4.500) uIu/ml Free T4 (0.61-1.60) ng/dl Urine Color Yellow Urine Appearance Clear (Clear) Urine pH 6.5 (4.5-7.5) Ur Specific [place] 1.020 (1.000-1.030) Urine Protein Negative (Negative) Urine Glucose (UA) Negative (Negative) Urine Ketones Trace H (Negative) Urine Blood Trace H (Negative) Urine Nitrite Negative (Negative) Urine Bilirubin Negative (Negative) Urine Urobilinogen Negative (Negative) Ur Leukocyte Esterase 1+ H (Negative) Urine WBC (Auto) 6-10 H (0-5) /hpf Urine RBC (Auto) 3-5 H (0-2) /hpf U Hyaline Cast (Auto) 0-2 (0-2) /lpf U Epithel Cells (Auto) 11-20 H (0-2) /hpf Urine Bacteria (Auto) 1+ H (None Seen) Calcium Oxalate Crystal Present A (None Prsent) Urine Yeast Present A (None Prsent) Urine Osmolality 568 (500-800) mOsm/kg Ur Random Sodium 90 mmol/L Nasal Screen MRSA (PCR) (Negative) SARS-CoV-2, RNA, NAAT (NEGATIVE) Ref Lab Test Result See Scanned Report 11/23/24 Range/Units 06:40 WBC 8.39 (4.8-10.8) K/ul RBC 3.77 L (4.20-5.40) M/uL Hgb 11.6 L (12.0-16.0) g/dl Hct 34.1 L (37.0-47.0) % MCV 90.5 (80.0-100.0) fL MCH 30.8 (25.0-34.0) pg MCHC 34.0 (32.0-36.0) g/dL RDW Std Deviation 49.4 H (36.4-46.3) fL RDW Coeff of Kelvin 14.8 H (11.5-14.5) % Plt Count 410 H (130-400) K/uL MPV 8.1 L (9.4-12.4) fL Immature Gran % (Auto) 0.6 % Neut % (Auto) 76.4 % Lymph % (Auto) 11.4 % [place] % (Auto) 9.2 % Eos % (Auto) 1.7 % Baso % (Auto) 0.7 % Neut # (Auto) 6.41 (1.40-6.50) K/uL Lymph # (Auto) 0.96 L (1.20-3.40) K/uL [place] # (Auto) 0.77 H (0.11-0.59) K/uL Eos # (Auto) 0.14 (0.00-0.50) K/uL Baso # (Auto) 0.06 (0.00-0.20) K/uL Immature Gran # (Auto) 0.05 (0.01-0.20) K/uL Sodium 131 L (136-145) mmol/L Potassium 4.1 (3.5-5.1) mmol/L Chloride 96 L (98-107) mmol/L Carbon Dioxide 32 (21-32) mmol/L Anion Gap 3 (3-11) BUN 16 (6-23) mg/dl Creatinine 0.49 L (0.6-1.2) mg/dl Est Cr Clr Drug Dosing 86.3 ml/min eGFR 103.88 BUN/Creatinine Ratio 32.7 H (10-20) Glucose 92 (70-99(Fasting)) mg/dl POC Glucose (70-99) mg/dl Osmolality (280-300) mOsm/kg Calcium 9.3 (8.6-10.3) mg/dl Phosphorus 2.9 (2.5-4.9) mg/dl Magnesium 1.6 L (1.7-2.4) mg/dl Total Bilirubin 0.4 (0.2-1.0) mg/dl Direct Bilirubin (0-0.2) mg/dl AST 30 (13-39) U/L ALT 18 (7-52) U/L Alkaline Phosphatase 174 H (34-104) U/L Total Protein 6.7 (6.0-8.3) gm/dl Albumin 3.2 L (3.4-5.0) gm/dl Globulin 3.5 (2.5-4.0) gm/dl Albumin/Globulin Ratio 0.9 (0.9-2) TSH (0.300-4.500) uIu/ml Free T4 (0.61-1.60) ng/dl Urine Color Urine Appearance (Clear) Urine pH (4.5-7.5) Ur Specific [place] (1.000-1.030) Urine Protein (Negative) Urine Glucose (UA) (Negative) Urine Ketones (Negative) Urine Blood (Negative) Urine Nitrite (Negative) Urine Bilirubin (Negative) Urine Urobilinogen (Negative) Ur Leukocyte Esterase (Negative) Urine WBC (Auto) (0-5) /hpf Urine RBC (Auto) (0-2) /hpf U Hyaline Cast (Auto) (0-2) /lpf U Epithel Cells (Auto) (0-2) /hpf Urine Bacteria (Auto) (None Seen) Calcium Oxalate Crystal (None Prsent) Urine Yeast (None Prsent) Urine Osmolality (500-800) mOsm/kg Ur Random Sodium mmol/L Nasal Screen MRSA (PCR) (Negative) SARS-CoV-2, RNA, NAAT (NEGATIVE) Ref Lab Test Result Imaging Data My Impression: CT scan imaging of the head and neck was obtained. These were interpreted by me and read by radiology. Cervical spine shows anterior fusion hardware. Minor retrolisthesis of C4 in respect to C3 is noted. No acute fractures. Head scan shows no acute intracranial abnormality. Craniotomy changes are noted. No edema or midline shift. Femoral films obtained today show no evidence of acute fracture. Femoral head compression with marked flattening is noted. Consistent with avascular necrosis. Old symphysis pubis fracture is noted. Dedicated hip and pelvis films show flattening of the femoral head. No evidence of additional fracture. Ankle films also obtained showed no evidence of acute fracture. Chest CT imaging without contrast was also obtained given her right rib complaints. There is no evidence of acute intrathoracic injury or rib fracture. Old left 5th and 6th rib fractures are noted. No evidence of pneumothorax, pleural effusion, or pericardial effusion. Radiologist's Impression: Cervical Spine CT 11/21/24 14:44 EXAM: CT cervical spine without contrast CLINICAL HISTORY: Fall from bed TECHNIQUE: Contiguous axial images were obtained through the cervical spine without the use of intravenous contrast. Sagittal and coronal reformations are supplied. PRIORS: None FINDINGS: Moderate osseous demineralization noted. Anterior fusion hardware present at C3-C7. Intervertebral disc spacers noted. Allowing for cervical hardware, approximately 4 mm of retrolisthesis of C4 with respect to C3 is noted, image 58, series 601, age-indeterminate. No priors available for comparison. Hardware creates significant artifact. Moderate facet hypertrophic changes noted. Severe facet hypertrophic changes at C2-C3. No acute displaced fracture or dislocation is identified, allowing for hardware and motion artifact. No prevertebral soft tissue swelling. IMPRESSION: 1. Anterior fusion hardware noted with lordotic straightening and possible retrolisthesis of C4 with respect to C3, age-indeterminate. Please correlate with prior imaging if appropriate. No prevertebral soft tissue swelling. 2. No displaced fracture or dislocation Electronically signed by Mala Santoyo 11-21-2024 5:24 PM Femur X-Ray 11/21/24 14:44 EXAMINATION: X-ray femur right 2 view routine CLINICAL HISTORY: Fall from bed, right hip PRIORS: October 25, 2024 TECHNIQUE: 2 views right femur FINDINGS: Moderate osseous demineralization noted. Marked flattening of the humeral head noted, unchanged. Allowing for this, no displaced right hip fracture. No femoral shaft fracture. Soft tissue calcification noted adjacent to the midshaft femur, unchanged. No suprapatella joint effusion. At the edge of the [id number], the possibility of a right obturator ring fracture is raised. IMPRESSION: Osseous demineralization with no displaced femoral fracture The possibility of a right obturator ring fracture is raised, at the edge of the [id number] . ACT 112: Positive. There are findings on this examination that require communication between the performing entity and the patient following Patient Test Result Information Act ([place] ACT 112) guidelines. Electronically signed by Mala Santoyo 11-21-2024 4:[address] 11/21/24 14:44 EXAMINATION: Head CT without CLINICAL HISTORY: Fell from bed PRIORS: 04 September 2024 TECHNIQUE: Contiguous axial images were obtained through the head without the use of intravenous contrast. Sagittal and coronal reformations are supplied. FINDINGS: Mild parenchymal volume is noted. Bilateral chronic infarctions and craniotomy changes, unchanged. Baer-white differentiation is preserved. No edema or midline shift. No new intra-axial or extra-axial hemorrhage. Ventricles are normal in size and configuration. Brainstem and cerebellum have a normal appearance. Calvarium unremarkable. Paranasal sinuses and mastoid air cells are well-pneumatized. Globes are intact. No retrobulbar abnormality. IMPRESSION: No CT evidence of an acute intracranial abnormality. Electronically signed by Mala Santoyo 11-21-2024 5:24 PM Hip/Pelvis X-Ray 11/21/24 14:44 EXAMINATION: X-ray hip bilateral 2 view with pelvis CLINICAL HISTORY: Fall from bed, right hip PRIORS: October 25, 2024 TECHNIQUE: AP view pelvis, multiple views right hip FINDINGS: Moderate osseous demineralization noted. Marked flattening of the humeral head noted, unchanged. Allowing for this, no displaced right hip fracture. Advanced degenerative change noted with [id number] appearance of the right hip superiorly. Healed or healing left pubic symphysis fracture noted No widening of the pubic symphysis. IMPRESSION: Osseous demineralization with flattening of the right femoral head, degenerative change and no displaced fracture identified. Electronically signed by Mala Santoyo 11-21-2024 4:36 PM Ankle X-Ray 11/21/24 14:54 EXAMINATION: X-ray ankle right 2 view CLINICAL HISTORY: Fall from bed PRIORS: None TECHNIQUE: [place] AP and lateral FINDINGS: Moderate osseous demineralization noted. Surgical screws present in the midfoot. 2 of the surgical screws are fractured but not displaced. Calcaneus unremarkable. Talar dome is intact. No acute fracture or dislocation. Moderate degenerative change of the ankle. Talar dome unremarkable. No soft tissue abnormality. IMPRESSION: Osseous demineralization with no plain film evidence of a displaced fracture. Fractured surgical screws. Electronically signed by Mala Santoyo 11-21-2024 4:[address] 11/21/24 14:54 EXAMINATION: Chest CT without CLINICAL HISTORY: Fall from bed COMPARISON: None TECHNIQUE: Contiguous axial images were obtained through the chest without the use of intravenous contrast. Sagittal and coronal reformations are supplied. FINDINGS: Moderate osseous demineralization noted. Allowing for this, no sternal, clavicle, scapula or thoracic acute osseous abnormality. Moderate degenerative change present through the thoracic spine. No displaced acute rib fracture. Healing left lateral 5th and 6th fractures present. No pneumothorax or pulmonary contusion. No pleural or pericardial effusion. Trachea and mainstem bronchi patent. Moderate atherosclerotic disease of the proximal aorta present. No soft tissue swelling or hematoma in the subcutaneous tissues of the chest wall. Limited visualization of the upper abdomen is unremarkable. IMPRESSION: No CT evidence of an acute or traumatic abnormality in the chest. Two healing left-sided rib fractures. Electronically signed by Mala Santoyo 11-21-2024 5:24 PM Blood Pressure Blood Pressure Findings: Normal blood pressure MDM Narrative The patient was evaluated in room C12. IV was established. Labs were obtained. They showed hyponatremia that is worse than her usual baseline. The patient has an altered mental status. I spoke with her and son regarding the patient's condition. She normally has good long-term memory and poor short-term memory. She is currently having poor long-term memory. According to both of them, this is not typical with her baseline. As such, she has worsening altered mental status. This could be related to her advancing brain cancer, but may also be related to her hyponatremia. Given her numerous complaints of right sided pain, extensive imaging was completed. It was unremarkable for acute changes. She is afebrile and there is no anemia. Given her findings, and with further discussion with Dr. Matute, admission was felt to be best for observation of her confusion[facility] Please see that dictation for final management. She may benefit from a short course of physical therapy before returning to [facility]. Impression & Plan Fall at intermediate, Acute hyponatremia, Acute pain of right lower extremity [facility] The patient remained stable while in the ED. Care plan was discussed with Dr. Matute. Additional history was obtained from the patient's son and by phone. Discharge Plan Visit Data Chief Complaint: Fall ED Provider: Napoleon Matute ED Midlevel Provider: Bear Burch Discharge Problem: Fall at intermediate, Acute hyponatremia, Acute pain of right lower extremity Patient Disposition: Admitted As Inpatient Condition: Fair Discharge Instructions Interventions: ED Discharge Assessment Last Done: 11/21/24 21:12 ED DC CONDITION Conditon at Discharge Condition at Discharge: Fair Discharge Problem: Fall at intermediate Qualifiers: Encounter type: initial encounter Qualified Code(s): W19.XXXA - Unspecified fall, initial encounter; Y92.129 - Unspecified place in intermediate as the place of occurrence of the external cause
[2024-11-21] MEDS: ATORVASTATIN 20 MG TAB PO SCH (23:16)
[2024-11-21] MEDS: carBAMazepine XR 200 MG TABCR PO SCH (23:16)
[2024-11-21] MEDS: DICLOFENAC SOD 1% GEL 100 GM TUBE EXT SCH (23:17)
[2024-11-21] MEDS: GADOBUTROL 65ML VIAL IV ONE (23:17)
--- NOTE | 2024-11-22 01:51 | Magnetic Resonance Report ---
Exam(s): MRI HEAD W/WO Contrast IV Amt: 5cc gadavist EXAM: MR Head Without and With Intravenous Contrast CLINICAL HISTORY: Reason for exam: AMS, hx of brain mets, sp craniotomy. TECHNIQUE: Magnetic resonance images of the head/brain without and with intravenous contrast in multiple planes. CONTRAST: Patient received 5cc gadavist of IV contrast COMPARISON: Prior head CT from November 21, 2024. FINDINGS: This study is limited secondary to motion artifact. Brain: There are multiple enhancing nodules within the ependymoma of the right lateral ventricle, third ventricle, interpedicular cistern and left frontal lobe with surrounding vasogenic edema. There is a tiny enhancing nodule in the right occipital lobe. Postsurgical changes in the right parietal lobe and left frontal lobe with surrounding encephalomalacia and gliosis. No mass. No hemorrhage. No acute infarct. The flow voids at the base of the brain are intact. Ventricles: Unremarkable. No ventriculomegaly. Bones/joints: Bilateral craniotomies. Status post anterior fusion of the cervical spine. No acute fracture. Sinuses: Unremarkable as visualized. No acute sinusitis. Mastoid air cells: There is a small amount of fluid in the left mastoid air cells. No mastoid effusion. Orbits: Unremarkable as visualized. 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 Recommend MRI of the cervical, thoracic and lumbar spine to evaluate for leptomeningeal spread of tumor. Communications: Verify Receipt Electronically signed by: Mera Tong MD 11/22/24 01:50 AM
[2024-11-22] MEDS: KETOROLAC TROMETHAMINE 15 MG/ML VIAL IV PRN (04:24)
[2024-11-22] MEDS: LEVOTHYROXINE SODIUM 200 MCG TABLET PO SCH (04:25)
[2024-11-22 07:35] LABS: Hematocrit (blood only) 32.7 % (37.0-47.0); Hemoglobin 11.2 g/dl (12.0-16.0); Mean Corpuscular Hemoglobin 31.2 pg (25.0-34.0); Mean Corpuscular Hgb Conc 34.3 g/dL (32.0-36.0); Mean Corpuscular Volume 91.1 fL (80.0-100.0); Mean Platelet Volume 8.4 fL (9.4-12.4); Platelet Count 452 K/uL (130-400); RDW Coefficient of Variation 14.8 % (11.5-14.5); RDW Standard Deviation 49.8 fL (36.4-46.3); Red Blood Count 3.59 M/uL (4.20-5.40); White Blood Count 6.42 K/ul (4.8-10.8)
[2024-11-22 07:52] LABS: BUN Creatinine Ratio 29.8 (10-20); Calcium 9.2 mg/dl (8.6-10.3); Creatinine Clr Calc Pharmacy 91.4 ml/min; Potassium 3.9 mmol/L (3.5-5.1)
[2024-11-22 08:08] LABS: Thyroid Stimulating Hormone 4.932 uIu/ml (0.300-4.500)
[2024-11-22] MEDS: DOCUSATE SODIUM 100 MG CAP PO SCH (08:40)
[2024-11-22] MEDS: LANSOPRAZOLE 30 MG SOLTAB PO SCH (08:40)
[2024-11-22] MEDS: LIDOCAINE 5% 1 PATCH TD SCH (08:40)
[2024-11-22] MEDS: LOSARTAN POTASSIUM 50 MG TAB PO SCH (08:40)
[2024-11-22] MEDS: PARoxetine HCL 20 MG TAB PO SCH (08:41)
[2024-11-22] MEDS: CHOLECALCIFEROL 25 MCG (1000 UNITS) TAB PO SCH (08:41)
[2024-11-22] MEDS: carBAMazepine 200 MG TABLET PO SCH (08:41)
[2024-11-22 08:44] LABS: T4 Free Thyroxine 1.08 ng/dl (0.61-1.60)
--- NOTE | 2024-11-22 09:00 | Palliative Care Consultation ---
Date of Consultation November 22, 2024 Assessment & Plan (1) Palliative care by specialist: (2) Counseling regarding goals of care: Plan assessed pt at bedside, she was sitting upright preparing for lunch. Pt does require a proxy for medical decisions. Patient currently lacks decisional capacity based on the inability to convey understanding of personal PMHx, current medical condition, treatment options nor the risks / benefits of those options, and lack of ability to make decisions based on such knowledge. Hospital does not have written documentation of patient wishes concerning her chosen proxy for medical decisions. Per PA [id number], in absence of written documentation of patient wishes, pt's proxy for medical decisions would be her spouse. No visitors present today, attempt made to contact pt's spouse by phone, no answer, general VM left. History of Present Illness Reason for Consultation: goals of care Requesting Physician: Petrona Cid MD Attending Physician: Petrona Cid MD History of Present Illness Mrs Garcia is 64-year-old female resident of [facility] with PMHx of melanoma with metastatic disease of the brain (dx 2021, original site left leg, s/p XRT, s/[place] [facility] [place] complicated by seizure disorder, chronic hyponatremia, hypertension, CAD, seizure disorder, cerebral atrophy, mood disorder and other medical problems listed below who presents from home. Pt was previously admitted to [facility] 09/03/24 and discharged to [facility] on 09/09/24 and from there was discharged home. She was also recently admitted from 10/25/26-11/03/24 for acute pain in R knee, severe right hip osteoarthritis, age related osteoporosis found to have multiple old fractures. Ortho was involved at that time and did not recommend surgery. Today she presents after being found on the ground out of bed at [facility], no new fractures noted on imaging. Allergies Allergy/AdvReac Type Severity Reaction Status Date / Time telithromycin [From Ketek] Allergy Unknown Unknown Verified 11/21/24 22:15 erythromycin base AdvReac Unknown BROUGHT ON Verified 11/21/24 22:16 SEIZURES Macrolide Antibiotics AdvReac Unknown Caused Verified 11/21/24 22:15 seizures prior to brain surgery Home Medications Medication Instructions Recorded Confirmed Type triamcinolone acetonide 0.1 % 1 applic topical BID itching #15 04/28/24 11/21/24 Rx topical cream grams cholecalciferol (vitamin D3) 25 25 mcg PO MOFR@0900 09/03/24 11/21/24 History mcg (1,000 unit) tablet levothyroxine 200 mcg tablet 200 mcg PO DAILY 09/03/24 11/21/24 History acetaminophen 500 mg tablet 1,000 mg (2 x 500 mg) PO Q8H #14 09/09/24 11/21/24 Rx (Tylenol Extra Strength) tabs atorvastatin 20 mg tablet 20 mg PO QPM #30 tabs 09/09/24 11/21/24 Rx dabrafenib 75 mg capsule (Tafinlar) 75 mg PO AMHS #30 caps 09/09/24 11/21/24 Rx losartan 50 mg tablet 50 mg PO QAM #30 tabs 09/09/24 11/21/24 Rx paroxetine HCl 40 mg tablet 40 mg PO QAM #30 tabs 09/09/24 11/21/24 Rx trametinib 0.5 mg tablet (Mekinist) 1.5 mg (3 x 0.5 mg) PO DAILY #30 09/09/24 11/21/24 Rx tabs docusate sodium 100 mg capsule 100 mg PO DAILY 10/25/24 11/21/24 History diclofenac sodium 1 % topical gel 4 g EXT BID #100 grams 11/03/24 11/21/24 Rx (Voltaren Arthritis Pain) lansoprazole 30 mg delayed 30 mg PO QAM #30 tabs 11/03/24 11/21/24 Rx release,disintegrating tablet (Prevacid SoluTab) carbamazepine 200 mg tablet 600 mg PO QAM 11/21/24 11/21/24 History carbamazepine 200 mg 400 mg PO QPM 11/21/24 11/21/24 History tablet,extended release,12 hr Patient History Medical History Seizure disorder History of melanoma October 2017 --diag with superficial spreading melanoma of the left leg, [id number], Stage IIIc. 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 S/p re-excision and SLNB 12/26/2017 (-margins; 3 of 3 nodes involved) S/p nivolumab 02/04 - 04/08 S/p right parietal craniotomy for near total resection 08/20/2021 S/p Radiation therapy to brain mets, including post op bed; Aug -September 2021 S/p dabrafinib and trametinib 10/09 --dose reduced in mid 2021; ongoing Rx Jul 2022--SRS to left frontal lobe Aug 2023--s/p ALYSHA and bx of Left Frontal mass. Path-- brain parenchyma with reactive gliosis.Negative for malignancy. MRI feb 20, 2024--Parenchymal abnormality at the treatment site measuring 1.9 cm, not fully characterized. Surrounding vasogenic edema and mild mass effect, increased since pretreatment imaging. 03/03/2024--s/p L frontal craniotomy for resection ( Dr Hand) ; path showed Residual/recurrent metastatic melanoma Surgical History S/P craniotomy Dr. Hand [facility] 03/03/24 Left frontal craniotomy for tumor resection with vycor tube and dynamic retraction, use of brainlab neuronavigation, use of neurophysiological monitoring (SSEP/MEP/motor language, subcortical stimulation) Status post right foot surgery History of knee replacement procedure of left knee History of partial hysterectomy H/O craniotomy History of back surgery History of brain surgery x2 Hx of cholecystectomy Family History Grandfather (Maternal) Cancer Breast cancer Sister Cancer Breast cancer Father Cancer Colon cancer Social History Smoking Status: Never smoker Tobacco Type: Cigarettes Cigarettes Per Day: 13; Second Hand Exposure: Yes; Do You Dip or Chew Tobacco: No; Hx Alcohol Use: No Hx Substance Use: No Preferred Language: Upper Sorbian Communication Ability: Impaired Visual Impairment: No Limitations Hearing Ability: Normal Associate Property Manager Required: No Beliefs That Will Affect Care: None marital status: Current Living Situation: [facility] Current Living Situation Comment: [facility] current occupational status: employed 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 No accessory muscle use Cardiovascular: regular rate, rhythm, normal peripheral pulses, no BLE edema Chest: normal inspection of chest Abdomen/GI: normal bowel sounds, soft, nontender Extremities/Musculoskeletal: R shoulder in sling. R hip without TTP. extremities motor strength 5/5 Neurologic: PERRL, moves all extremities Psychiatric: A+Ox person & place, flat affect Skin: no rashes, normal color, warm/dry Results & Data Vital Signs (Past 12 Hours) Vital Signs Temp Pulse Pulse Pulse Resp BP BP 11/22/24 08:50 11/22/24 07:51 36.5 C 84 12 136/84 11/22/24 07:17 86 11/22/24 02:42 36.7 C 89 18 132/78 11/21/24 22:30 90 11/21/24 22:17 36.9 C 98 H 16 128/78 11/21/24 22:00 Pulse Ox O2 Del Method O2 Flow Rate 11/22/24 08:50 Room Air 11/22/24 07:51 97 Room Air 11/22/24 07:17 11/22/24 02:42 95 Room Air 11/21/24 22:30 11/21/24 22:17 95 Nasal Cannula 2 11/21/24 22:00 Nasal Cannula 2 Laboratory Results Abnormal lab results 11/21/24 11/22/24 Range/Units 15:30 06:23 RBC 3.59 L (4.20-5.40) M/uL Hgb 11.2 L (12.0-16.0) g/dl Hct 32.7 L (37.0-47.0) % RDW Std Deviation 49.4 H 49.8 H (36.4-46.3) fL RDW Coeff of Kelvin 14.8 H 14.8 H (11.5-14.5) % Plt Count 482 H 452 H (130-400) K/uL MPV 8.2 L 8.4 L (9.4-12.4) fL Mcduffie # (Auto) 0.82 H (0.11-0.59) K/uL Sodium 128 L 132 L (136-145) mmol/L Chloride 92 L 97 L (98-107) mmol/L Creatinine 0.57 L 0.47 L (0.6-1.2) mg/dl BUN/Creatinine Ratio 24.6 H 29.8 H (10-20) Osmolality 278 L (280-300) mOsm/kg Alkaline Phosphatase 236 H (34-104) U/L TSH 4.932 H (0.300-4.500) uIu/ml Diagnostic Findings Cervical Spine CT 11/21/24 14:44 EXAM: CT cervical spine without contrast CLINICAL HISTORY: Fall from bed TECHNIQUE: Contiguous axial images were obtained through the cervical spine without the use of intravenous contrast. Sagittal and coronal reformations are supplied. PRIORS: None FINDINGS: Moderate osseous demineralization noted. Anterior fusion hardware present at C3-C7. Intervertebral disc spacers noted. Allowing for cervical hardware, approximately 4 mm of retrolisthesis of C4 with respect to C3 is noted, image 58, series 601, age-indeterminate. No priors available for comparison. Hardware creates significant artifact. Moderate facet hypertrophic changes noted. Severe facet hypertrophic changes at C2-C3. No acute displaced fracture or dislocation is identified, allowing for hardware and motion artifact. No prevertebral soft tissue swelling. IMPRESSION: 1. Anterior fusion hardware noted with lordotic straightening and possible retrolisthesis of C4 with respect to C3, age-indeterminate. Please correlate with prior imaging if appropriate. No prevertebral soft tissue swelling. 2. No displaced fracture or dislocation Electronically signed by Mala Santoyo 11-21-2024 5:24 PM Femur X-Ray 11/21/24 14:44 EXAMINATION: X-ray femur right 2 view routine CLINICAL HISTORY: Fall from bed, right hip PRIORS: October 25, 2024 TECHNIQUE: 2 views right femur FINDINGS: Moderate osseous demineralization noted. Marked flattening of the humeral head noted, unchanged. Allowing for this, no displaced right hip fracture. No femoral shaft fracture. Soft tissue calcification noted adjacent to the midshaft femur, unchanged. No suprapatella joint effusion. At the edge of the [id number], the possibility of a right obturator ring fracture is raised. IMPRESSION: Osseous demineralization with no displaced femoral fracture The possibility of a right obturator ring fracture is raised, at the edge of the [id number] . ACT 112: Positive. There are findings on this examination that require communication between the performing entity and the patient following Patient Test Result Information Act ([place] ACT 112) guidelines. Electronically signed by Mala Santoyo 11-21-2024 4:[address] 11/21/24 14:44 EXAMINATION: Head CT without CLINICAL HISTORY: Fell from bed PRIORS: 04 September 2024 TECHNIQUE: Contiguous axial images were obtained through the head without the use of intravenous contrast. Sagittal and coronal reformations are supplied. FINDINGS: Mild parenchymal volume is noted. Bilateral chronic infarctions and craniotomy changes, unchanged. Baer-white differentiation is preserved. No edema or midline shift. No new intra-axial or extra-axial hemorrhage. Ventricles are normal in size and configuration. Brainstem and cerebellum have a normal appearance. Calvarium unremarkable. Paranasal sinuses and mastoid air cells are well-pneumatized. Globes are intact. No retrobulbar abnormality. IMPRESSION: No CT evidence of an acute intracranial abnormality. Electronically signed by Mala Santoyo 11-21-2024 5:24 PM Hip/Pelvis X-Ray 11/21/24 14:44 EXAMINATION: X-ray hip bilateral 2 view with pelvis CLINICAL HISTORY: Fall from bed, right hip PRIORS: October 25, 2024 TECHNIQUE: AP view pelvis, multiple views right hip FINDINGS: Moderate osseous demineralization noted. Marked flattening of the humeral head noted, unchanged. Allowing for this, no displaced right hip fracture. Advanced degenerative change noted with [id number] appearance of the right hip superiorly. Healed or healing left pubic symphysis fracture noted No widening of the pubic symphysis. IMPRESSION: Osseous demineralization with flattening of the right femoral head, degenerative change and no displaced fracture identified. Electronically signed by Mala Sanotyo 11-21-2024 4:36 PM Ankle X-Ray 11/21/24 14:54 EXAMINATION: X-ray ankle right 2 view CLINICAL HISTORY: Fall from bed PRIORS: None TECHNIQUE: Crosstable AP and lateral FINDINGS: Moderate osseous demineralization noted. Surgical screws present in the midfoot. 2 of the surgical screws are fractured but not displaced. Calcaneus unremarkable. Talar dome is intact. No acute fracture or dislocation. Moderate degenerative change of the ankle. Talar dome unremarkable. No soft tissue abnormality. IMPRESSION: Osseous demineralization with no plain film evidence of a displaced fracture. Fractured surgical screws. Electronically signed by Mala Santoyo 11-21-2024 4:[address] 11/21/24 14:54 EXAMINATION: Chest CT without CLINICAL HISTORY: Fall from bed COMPARISON: None TECHNIQUE: Contiguous axial images were obtained through the chest without the use of intravenous contrast. Sagittal and coronal reformations are supplied. FINDINGS: Moderate osseous demineralization noted. Allowing for this, no sternal, clavicle, scapula or thoracic acute osseous abnormality. Moderate degenerative change present through the thoracic spine. No displaced acute rib fracture. Healing left lateral 5th and 6th fractures present. No pneumothorax or pulmonary contusion. No pleural or pericardial effusion. Trachea and mainstem bronchi patent. Moderate atherosclerotic disease of the proximal aorta present. No soft tissue swelling or hematoma in the subcutaneous tissues of the chest wall. Limited visualization of the upper abdomen is unremarkable. IMPRESSION: No CT evidence of an acute or traumatic abnormality in the chest. Two healing left-sided rib fractures. Electronically signed by Mala Santoyo 11-21-2024 5:24 PM Brain MRI 11/21/24 18:02 CR Exam(s): MRI HEAD W/WO Contrast IV Amt: 5cc gadavist EXAM: MR Head Without and With Intravenous Contrast CLINICAL HISTORY: Reason for exam: AMS, hx of brain mets, sp craniotomy. TECHNIQUE: Magnetic resonance images of the head/brain without and with intravenous contrast in multiple planes. CONTRAST: Patient received 5cc gadavist of IV contrast COMPARISON: Prior head CT from November 21, 2024. FINDINGS: This study is limited secondary to motion artifact. Brain: There are multiple enhancing nodules within the ependymoma of the right lateral ventricle, third ventricle, interpedicular cistern and left frontal lobe with surrounding vasogenic edema. There is a tiny enhancing nodule in the right occipital lobe. Postsurgical changes in the right parietal lobe and left frontal lobe with surrounding encephalomalacia and gliosis. No mass. No hemorrhage. No acute infarct. The flow voids at the base of the brain are intact. Ventricles: Unremarkable. No ventriculomegaly. Bones/joints: Bilateral craniotomies. Status post anterior fusion of the cervical spine. No acute fracture. Sinuses: Unremarkable as visualized. No acute sinusitis. Mastoid air cells: There is a small amount of fluid in the left mastoid air cells. No mastoid effusion. Orbits: Unremarkable as visualized. 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 Recommend MRI of the cervical, thoracic and lumbar spine to evaluate for leptomeningeal spread of tumor. Communications: Verify Receipt Electronically signed by: Mera Tong MD 11/22/24 01:50 AM Lumbar Spine X-Ray 11/21/24 18:29 EXAM: XR lumbar spine 2-3V CLINICAL HISTORY: back pain, suspected fall. TECHNIQUE: X-ray images of the lumbar spine were obtained in anteroposterior (AP)Ls spot view, Oblique and lateral projections. COMPARISON: Lumbar spine, dated 09/10/2019 FINDINGS: Alignment: A progression is noted regarding L4-L5 grade II spondylolisthesis (12 mm compared to 9 mm). Unchanged compression collapse affecting the upper Vertebral endplates of the L5 vertebral body. A newly developed straightening of the lumbar spine, denoting back muscle spasm. No abnormal curvature, such as scoliosis or lordosis. Unchanged lower facet joints arthropathy. The sacroiliac joints appear normal. Vertebral Bodies: A stable lumbar spondylodegenerative change, evident by the presence of marginal osteophytes. No evidence of fractures, other compression deformities, or significant osseous lesions. Intervertebral Disc Spaces: A newly developed narrowed L1-L2 disc space. Unchanged narrowed L3-L4 and L4-L5 disc spaces. Soft Tissues: Right hypochondria cholecystectomy surgical clips. Paraspinal soft tissues are of normal thickness. No evidence of paraspinal soft tissue swelling or mass effect. Additional Findings: Abnormal, irregular spherical shape of the right femoral head. No other significant abnormalities are noted. IMPRESSION: 1. A progression is noted regarding L4-L5 grade II spondylolisthesis (12 mm compared to 9 mm). 2. Unchanged compression collapse affecting the upper Vertebral endplates of the L5 vertebral body. 3. A newly developed straightening of the lumbar spine, denoting back muscle spasm. 4. A newly developed narrowed L1-L2 disc space. 5. A stable lumbar spondylodegenerative change with narrowed L3-L4 and L4-L5 disc spaces and lower facet joints arthropathy. 6. Abnormal, irregular spherical shape of the right femoral head. A dedicated X-ray study of the right hip joint is recommended. If clinically warranted. Disclaimer: A subtle bone abnormality or fracture may not be readily apparent on X-rays, thus, clinical correlation and further imaging, including follow-up CT, MRI, or follow-up X-rays, are advised as needed. Electronically signed by Fredrick Orta 11-21-2024 8:15 PM Medications Administered Current Inpatient Medications Atorvastatin Calcium (Atorvastatin 20 Mg Tab) 20 mg PO QPM [facility] Stop: 12/21/24 22:09 Last Admin: 11/21/24 23:16 Dose: 20 mg Carbamazepine (Carbamazepine 200 Mg Tablet) 600 mg PO QAM [facility] Stop: 12/22/24 08:59 Last Admin: 11/22/24 08:41 Dose: 600 mg Carbamazepine (Carbamazepine Xr 200 Mg Tabcr) 400 mg PO QPM [facility] Stop: 12/21/24 22:09 Last Admin: 11/21/24 23:16 Dose: 400 mg Diclofenac Sodium (Diclofenac Sod 1% Gel 100 Gm Tube) 4 gm EXT BID [facility]; Protocol Stop: 12/21/24 22:09 Last Admin: 11/22/24 08:40 Dose: 4 gm Docusate Sodium (Docusate Sodium 100 Mg Cap) 100 mg PO DAILY [facility] Stop: 12/22/24 08:59 Last Admin: 11/22/24 08:40 Dose: 100 mg Acetaminophen (Ofirmev) 1,000 mg in 100 mls @ 400 mls/hr IV Q8H PRN PRN Reason: Moderate Pain (Scale 4, 5, 6) Stop: 11/24/24 22:09 Ketorolac Tromethamine (Ketorolac Tromethamine 15 Mg/Ml Vial) 15 mg IV Q6H PRN PRN Reason: Mild Pain (Scale 1, 2, 3) Stop: 11/26/24 22:09 Last Admin: 11/22/24 04:24 Dose: 15 mg Lansoprazole (Lansoprazole 30 Mg Soltab) [facility] [place] Stop: 12/22/24 08:59 Last Admin: 11/22/24 08:40 Dose: 30 mg Levothyroxine Sodium (Levothyroxine Sodium 200 Mcg Tablet) 200 mcg PO DAILYBB [facility] Stop: 12/22/24 06:29 Last Admin: 11/22/24 04:25 Dose: 200 mcg Lidocaine (Lidocaine 5% 1 Patch) 1 patch TD QA [facility] Stop: 12/22/24 08:59 Last Admin: 11/22/24 08:40 Dose: 1 patch Losartan Potassium (Losartan Potassium 50 Mg Tab) [facility] [place] Stop: 12/22/24 08:59 Last Admin: 11/22/24 08:40 Dose: 50 mg Miscellaneous (Remove Lidoderm Patch) 1 each N/A DAILY@2100 [facility] Stop: 12/22/24 20:59 Miscellaneous (Tafinlar~Order Awaiting Action) 1 each N/A QS [facility] Stop: 12/21/24 22:29 Last Admin: 11/22/24 07:07 Dose: Not Given Miscellaneous (Mekinist~Order Awaiting Action) 1 each N/A QS [facility] Stop: 12/21/24 22:29 Last Admin: 11/22/24 07:07 Dose: Not Given Ondansetron HCl (Ondansetron Inj 2 Mg/Ml 2 Ml Vial) 4 mg IV Q4H PRN PRN Reason: Nausea And Vomiting Stop: 12/21/24 22:09 Paroxetine HCl (Paroxetine Hcl 20 Mg Tab) 40 mg PO [facility] Stop: 12/22/24 08:59 Last Admin: 11/22/24 08:41 Dose: 40 mg Vitamin D (Cholecalciferol 25 Mcg (1000 Units) Tab) 25 mcg PO MOFR@0900 [facility] Stop: 12/22/24 08:59 Last Admin: 11/22/24 08:41 Dose: 25 mcg PG Care Time/CCT Total # of Minutes Spent Total Time Spent with Patient: Total time spent is greater than 50% in coordination of care (as documented) at patient's floor/unit and/or counseling patient: Coding [place] [address] IN/OBS CONSULT LVL 3,45M Patient Type Established History Problem Focused Exam Problem Focused Medical Decision Making Low Complexity Diagnoses Palliative care by specialist Z51.5 Counseling regarding goals of care Z71.89
--- NOTE | 2024-11-22 12:21 | Hospitalist Progress Note ---
Date of Service November 22, 2024 Assessment & Plan (1) Fall: (2) AMS (altered mental status): (3) Melanoma metastatic to brain: (4) Weakness generalized: (5) Degenerative joint disease of right hip: Plan Patient is a 64-year-old female with history of metastatic melanoma, chronic hyponatremia, seizure disorder, hypertension, hyperlipidemia, hypothyroidism and other medical problems presents after history of fall from bed while at rehab facility. Patient was recently hospitalized and managed for pathological fracture of right acetabulum, right femoral head and left rib fractures, UTI. She was thought to be more confused from her baseline. Multiple falls Ambulatory dysfunction Failure to thrive Imaging all grossly unremarkable for acute fracture UA pending Gentle IV fluids Goals of care and need to be readdressed Pain control as needed Neurochecks, fall precautions, PT OT lumbar x-ray given back pain secondary to fall Will request palliative care input to address goals of care consider orthospine f/u PT/OT Acute on chronic hyponatremia Likely multifactorial secondary to carbamazepine, hypothyroidism, poor oral intake Urine sodium, urine and serum osmolality IV fluids Improved Worsening memory Melanoma with mets to brain s/p Craniotomy in Feb 2024 Seizure disorder --Dx 2021, original site left leg, s/p XRT, s/p L frontal craniotomy at [facility] [place] 03/13 -Forgetful with waxing and waning mentation since February, per . 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 Frequent reorientation, avoid sedating medications as able HTN - Home meds: losartan HLD - Continue atorvastatin Mood disorder -Continue paroxetine Hypothyroidism -Continue Levothyroxine 200 mcg DVT ppx: teds, scds Lines: PIV was pulled out by pt in the ER, being replaced by nurse now FEN/GI: Allow HH diet CODE: Full Admission and Anticipated Discharge Date Admission Date: November 21, 2024 Subjective pt was seen in the AM with at bedside AAOx1 Denies acute concerns Per , she fell at [facility] Review of Systems Review of Systems: All systems reviewed & are unremarkable except as noted in Subjective Physical Exam Physical Exam: General: Alert, orientedx1. No acute distress Skin:bruising on face Neuro: alertx1 HEENT: NC/AT CV: RRR Resp: Breath sounds clear bilaterally, no increased effort of breathing Abdomen: Soft, nontender Extremities: No edema in lower extremities bilaterally. Results & Data Results & Data Vital Signs (Past 12 Hours) Vital Signs Temp Pulse Pulse Pulse Resp BP Pulse Ox 11/22/24 11:38 36.6 C 75 14 121/67 96 11/22/24 08:50 11/22/24 07:51 36.5 C 84 12 136/84 97 11/22/24 07:17 86 11/22/24 02:42 36.7 C 89 18 132/78 95 O2 Del Method 11/22/24 11:38 Room Air 11/22/24 08:50 Room Air 11/22/24 07:51 Room Air 11/22/24 07:17 11/22/24 02:42 Room Air Diagnostic Findings Cervical Spine CT 11/21/24 14:44 EXAM: CT cervical spine without contrast CLINICAL HISTORY: Fall from bed TECHNIQUE: Contiguous axial images were obtained through the cervical spine without the use of intravenous contrast. Sagittal and coronal reformations are supplied. PRIORS: None FINDINGS: Moderate osseous demineralization noted. Anterior fusion hardware present at C3-C7. Intervertebral disc spacers noted. Allowing for cervical hardware, approximately 4 mm of retrolisthesis of C4 with respect to C3 is noted, image 58, series 601, age-indeterminate. No priors available for comparison. Hardware creates significant artifact. Moderate facet hypertrophic changes noted. Severe facet hypertrophic changes at C2-C3. No acute displaced fracture or dislocation is identified, allowing for hardware and motion artifact. No prevertebral soft tissue swelling. IMPRESSION: 1. Anterior fusion hardware noted with lordotic straightening and possible retrolisthesis of C4 with respect to C3, age-indeterminate. Please correlate with prior imaging if appropriate. No prevertebral soft tissue swelling. 2. No displaced fracture or dislocation Electronically signed by Mala Santoyo 11-21-2024 5:24 PM Femur X-Ray 11/21/24 14:44 EXAMINATION: X-ray femur right 2 view routine CLINICAL HISTORY: Fall from bed, right hip PRIORS: October 25, 2024 TECHNIQUE: 2 views right femur FINDINGS: Moderate osseous demineralization noted. Marked flattening of the humeral head noted, unchanged. Allowing for this, no displaced right hip fracture. No femoral shaft fracture. Soft tissue calcification noted adjacent to the midshaft femur, unchanged. No suprapatella joint effusion. At the edge of the [id number], the possibility of a right obturator ring fracture is raised. IMPRESSION: Osseous demineralization with no displaced femoral fracture The possibility of a right obturator ring fracture is raised, at the edge of the [id number] . ACT 112: Positive. There are findings on this examination that require communication between the performing entity and the patient following Patient Test Result Information Act ([place] ACT 112) guidelines. Electronically signed by Mala Santoyo 11-21-2024 4:[address] 11/21/24 14:44 EXAMINATION: Head CT without CLINICAL HISTORY: Fell from bed PRIORS: 04 September 2024 TECHNIQUE: Contiguous axial images were obtained through the head without the use of intravenous contrast. Sagittal and coronal reformations are supplied. FINDINGS: Mild parenchymal volume is noted. Bilateral chronic infarctions and craniotomy changes, unchanged. Baer-white differentiation is preserved. No edema or midline shift. No new intra-axial or extra-axial hemorrhage. Ventricles are normal in size and configuration. Brainstem and cerebellum have a normal appearance. Calvarium unremarkable. Paranasal sinuses and mastoid air cells are well-pneumatized. Globes are intact. No retrobulbar abnormality. IMPRESSION: No CT evidence of an acute intracranial abnormality. Electronically signed by Mala Santoyo 11-21-2024 5:24 PM Hip/Pelvis X-Ray 11/21/24 14:44 EXAMINATION: X-ray hip bilateral 2 view with pelvis CLINICAL HISTORY: Fall from bed, right hip PRIORS: October 25, 2024 TECHNIQUE: AP view pelvis, multiple views right hip FINDINGS: Moderate osseous demineralization noted. Marked flattening of the humeral head noted, unchanged. Allowing for this, no displaced right hip fracture. Advanced degenerative change noted with lyjr-qs-[id number] appearance of the right hip superiorly. Healed or healing left pubic symphysis fracture noted No widening of the pubic symphysis. IMPRESSION: Osseous demineralization with flattening of the right femoral head, degenerative change and no displaced fracture identified. Electronically signed by Mala Santoyo 11-21-2024 4:36 PM Ankle X-Ray 11/21/24 14:54 EXAMINATION: X-ray ankle right 2 view CLINICAL HISTORY: Fall from bed PRIORS: None TECHNIQUE: Cros[place] AP and lateral FINDINGS: Moderate osseous demineralization noted. Surgical screws present in the midfoot. 2 of the surgical screws are fractured but not displaced. Calcaneus unremarkable. Talar dome is intact. No acute fracture or dislocation. Moderate degenerative change of the ankle. Talar dome unremarkable. No soft tissue abnormality. IMPRESSION: Osseous demineralization with no plain film evidence of a displaced fracture. Fractured surgical screws. Electronically signed by Mala Santoyo 11-21-2024 4:[address] 11/21/24 14:54 EXAMINATION: Chest CT without CLINICAL HISTORY: Fall from bed COMPARISON: None TECHNIQUE: Contiguous axial images were obtained through the chest without the use of intravenous contrast. Sagittal and coronal reformations are supplied. FINDINGS: Moderate osseous demineralization noted. Allowing for this, no sternal, clavicle, scapula or thoracic acute osseous abnormality. Moderate degenerative change present through the thoracic spine. No displaced acute rib fracture. Healing left lateral 5th and 6th fractures present. No pneumothorax or pulmonary contusion. No pleural or pericardial effusion. Trachea and mainstem bronchi patent. Moderate atherosclerotic disease of the proximal aorta present. No soft tissue swelling or hematoma in the subcutaneous tissues of the chest wall. Limited visualization of the upper abdomen is unremarkable. IMPRESSION: No CT evidence of an acute or traumatic abnormality in the chest. Two healing left-sided rib fractures. Electronically signed by Mala Santoyo 11-21-2024 5:24 PM Brain MRI 11/21/24 18:02 CR Exam(s): MRI HEAD W/WO Contrast IV Amt: 5cc gadavist EXAM: MR Head Without and With Intravenous Contrast CLINICAL HISTORY: Reason for exam: AMS, hx of brain mets, sp craniotomy. TECHNIQUE: Magnetic resonance images of the head/brain without and with intravenous contrast in multiple planes. CONTRAST: Patient received 5cc gadavist of IV contrast COMPARISON: Prior head CT from November 21, 2024. FINDINGS: This study is limited secondary to motion artifact. Brain: There are multiple enhancing nodules within the ependymoma of the right lateral ventricle, third ventricle, interpedicular cistern and left frontal lobe with surrounding vasogenic edema. There is a tiny enhancing nodule in the right occipital lobe. Postsurgical changes in the right parietal lobe and left frontal lobe with surrounding encephalomalacia and gliosis. No mass. No hemorrhage. No acute infarct. The flow voids at the base of the brain are intact. Ventricles: Unremarkable. No ventriculomegaly. Bones/joints: Bilateral craniotomies. Status post anterior fusion of the cervical spine. No acute fracture. Sinuses: Unremarkable as visualized. No acute sinusitis. Mastoid air cells: There is a small amount of fluid in the left mastoid air cells. No mastoid effusion. Orbits: Unremarkable as visualized. 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 Recommend MRI of the cervical, thoracic and lumbar spine to evaluate for leptomeningeal spread of tumor. Communications: Verify Receipt Electronically signed by: Mera Tong MD 11/22/24 01:50 AM Lumbar Spine X-Ray 11/21/24 18:29 EXAM: XR lumbar spine 2-3V CLINICAL HISTORY: back pain, suspected fall. TECHNIQUE: X-ray images of the lumbar spine were obtained in anteroposterior (AP)Ls spot view, Oblique and lateral projections. COMPARISON: Lumbar spine, dated 09/10/2019 FINDINGS: Alignment: A progression is noted regarding L4-L5 grade II spondylolisthesis (12 mm compared to 9 mm). Unchanged compression collapse affecting the upper Vertebral endplates of the L5 vertebral body. A newly developed straightening of the lumbar spine, denoting back muscle spasm. No abnormal curvature, such as scoliosis or lordosis. Unchanged lower facet joints arthropathy. The sacroiliac joints appear normal. Vertebral Bodies: A stable lumbar spondylodegenerative change, evident by the presence of marginal osteophytes. No evidence of fractures, other compression deformities, or significant osseous lesions. Intervertebral Disc Spaces: A newly developed narrowed L1-L2 disc space. Unchanged narrowed L3-L4 and L4-L5 disc spaces. Soft Tissues: Right hypochondria cholecystectomy surgical clips. Paraspinal soft tissues are of normal thickness. No evidence of paraspinal soft tissue swelling or mass effect. Additional Findings: Abnormal, irregular spherical shape of the right femoral head. No other significant abnormalities are noted. IMPRESSION: 1. A progression is noted regarding L4-L5 grade II spondylolisthesis (12 mm compared to 9 mm). 2. Unchanged compression collapse affecting the upper Vertebral endplates of the L5 vertebral body. 3. A newly developed straightening of the lumbar spine, denoting back muscle spasm. 4. A newly developed narrowed L1-L2 disc space. 5. A stable lumbar spondylodegenerative change with narrowed L3-L4 and L4-L5 disc spaces and lower facet joints arthropathy. 6. Abnormal, irregular spherical shape of the right femoral head. A dedicated X-ray study of the right hip joint is recommended. If clinically warranted. Disclaimer: A subtle bone abnormality or fracture may not be readily apparent on X-rays, thus, clinical correlation and further imaging, including follow-up CT, MRI, or follow-up X-rays, are advised as needed. Electronically signed by Fredrick Orta 11-21-2024 8:15 PM (1) Fall Encounter type: initial encounter Qualified Code(s): W19.XXXA - Unspecified fall, initial encounter
[2024-11-22] MEDS: DABRAFENIB MESYLATE PO SCH (12:47)
[2024-11-22] MEDS: TRAMETINIB DIMETHYL SULFOXIDE 0.5 MG PO SCH (12:48)
[2024-11-22 17:18] LABS: Appearance Urine Clear (Clear); Bilirubin Urine Negative (Negative); Blood Urine Trace (Negative); Cast Urine Automated 0-2 /lpf (0-2); Color Urine Yellow; Glucose Urine UA Negative (Negative); Ketones Urine Trace (Negative); Leukocyte Esterase Urine 1+ (Negative); Nitrite Urine Negative (Negative); Protein Urine Negative (Negative); Urobilinogen Urine Negative (Negative); pH Urine 6.5 (4.5-7.5)
[2024-11-22 17:28] LABS: Calcium Oxalate Crystals Urine Present (None Prsent)
[2024-11-22 17:31] LABS: Bacteria Urine Automated 1+ (None Seen)
[2024-11-22] MEDS ORDERED: OLANZapine 10 MG/2.1 ML SDV IM PRN (19:59)
[2024-11-22] MEDS: OLANZapine 10 MG/2.1 ML SDV IM STA ×2 (20:30→23:03)
--- NOTE | 2024-11-22 21:22 | Communication Note ---
Date of Service: November 22, 2024
--- NOTE | 2024-11-23 01:55 | Magnetic Resonance Report ---
EXAM: MR cervical spine wo con CLINICAL HISTORY: Back pain. TECHNIQUE: MRI of the cervical spine was performed. Sequences obtained include sagittal T1-weighted, T2-weighted, STIR (Short Tau Inversion Recovery), and axial T2-weighted sequences. Additional sequences such as gradient echo (GRE) or post-contrast T1-weighted images may have been included based on clinical indication. COMPARISON: Comparison is made with prior imaging studies dated 11/21/2024. FINDINGS: Limited study due to metallic and motion-related artifacts. Vertebral Alignment: Loss of normal cervical lordosis, with metallic spinal fixator extending from C3-C6 levels, with intervertebral disc expanders. Mild anterolisthesis of C3 over C4 vertebral body and subtle anterolisthesis of C6 over C7 vertebral body. No evidence of acute fracture or dislocation. Vertebral Bodies and Intervertebral Discs: Normal vertebral body height and alignment. The intervertebral discs are replaced by disc expanders from C3-C6 levels. The rest of the intervertebral discs demonstrate markedly reduced height and desiccation changes. [id number] analysis: C2-C3: A 2.6 mm posterior disc bulge with associated posterolateral osteophytes is seen, causing complete effacement of the anterior thecal sac, with associated hypertrophied ligamentum flavum/facet arthropathy effacing the posterior thecal sac, leading to moderate spinal canal narrowing and posterior indentation on the spinal cord. C3-C4, C4-C5, C5-C6 levels: Limited evaluation due to metallic artifacts. Intervertebral disc expanders are seen. Posterolateral osteophytes and hypertrophic facet/uncovertebral joint arthropathy are seen, causing effacement of the anterior thecal sac with mild spinal canal narrowing. The posterior thecal sleeve is preserved. C6-C7: Mild anterolisthesis of C6 over C7 vertebral body with an intervertebral disc hospital security officer at this level. Moderate to marked spinal canal and neural foraminal narrowing is seen at this level. The effect is augmented by hypertrophied ligamentum flavum/facet joint arthropathy. High signal within the spinal cord, suggesting myelomalacia change. C7-T1: A 2.6 mm posterior disc bulge is seen causing indentation of the anterior thecal sac. No significant spinal canal or neural foraminal narrowing is seen. Ligamentum flavum hypertrophy/Facet joint arthropathy noted. Spinal Cord and Nerve Roots: High signal in the spinal cord at C6-C7 levels, suggesting myelomalacia. Nerve roots appear unremarkable bilaterally. Soft Tissues: Paraspinal soft tissues appear normal without evidence of abnormal signal intensity or mass lesions. IMPRESSION: 1. Limited study due to metallic and motion-related artifacts. 2. Loss of normal cervical lordosis, with metallic spinal fixator extending from C3-C6 levels, with intervertebral disc expanders(unchanged). 3. Marked cervical spondylotegenerative changes as detailed below, with mild anterolisthesis of C3 over C4 vertebral body and subtle anterolisthesis of C6 over C7 vertebral body(unchanged). 4. C2-C3: A 2.6 mm posterior disc bulge with associated posterolateral osteophytes, with associated hypertrophied ligamentum flavum/facet arthropathy, leading to moderate spinal canal narrowing and posterior indentation on the spinal cord. 5. C3-C4, C4-C5, C5-C6 levels: Limited evaluation due to metallic artifacts. Intervertebral disc expanders are seen. Posterolateral osteophytes and hypertrophic facet/uncovertebral joint arthropathy, causing effacement of the anterior thecal sac with mild spinal canal narrowing. 6. C6-C7: Mild anterolisthesis of C6 over C7 vertebral body with an intervertebral disc hospital security officer at this level. Moderate to marked spinal canal and neural foraminal narrowing. The effect is augmented by hypertrophied ligamentum flavum/facet joint arthropathy. High signal within the spinal cord, suggesting myelomalacia. 7. Unavailability of post-contrast images, leading to limited evaluation for metastasis. Electronically signed by Fredrick Orta 11-23-2024 01:55 AM
--- NOTE | 2024-11-23 02:15 | Magnetic Resonance Report ---
EXAM: MR thoracic spine wo con CLINICAL HISTORY: back pain TECHNIQUE: Multiplanar multi sequential MRI sequences of the thoracic spine without contrast administration were obtained. COMPARISON: None. FINDINGS: Intervertebral Discs: Reduced height and signal intensity of the intervertebral discs. Multilevel disc desiccation. Spinal Cord: The study is partially degraded by patient motion artifact yet the cord apears of normal caliber. A questionable intramedullay long segment of faint bright T2 signal noted at the lower dorsal spinal cord which may be artifactual, however an underlying syringomyelia cannot be excluded. Facet Joints: Normal appearance of the facet joints. No evidence of facet arthropathy or significant degenerative changes. Vertebrae: Normal alignment of the thoracic vertebrae. No fractures, lytic or sclerotic lesions. Anterior osteophytic lipping and mild subchondral degenerative marrow changes of the opposing vertebral endplates Level by level analysis: C7-T1: a1.5 mm posterior disc protrusion abutting the cord ventrally causing mild central canal and bilateral foraminal stenosis. T1-T2: a 1.8 mm posterior disc protrusion abutting the cord ventrally causing mild central canal and bilateral foraminal stenosis. T2-T3: No significant disc pathology. Normal ligamentum flava morphology, no arthropathy of the facet joints, and no significant spinal canal stenosis. T3-T4: No significant disc pathology. Normal ligamentum flava morphology, no arthropathy of the facet joints, and no significant spinal canal stenosis. T4-T5: No significant disc pathology. Normal ligamentum flava morphology, no arthropathy of the facet joints, and no significant spinal canal stenosis. T5-T6: a 2.2 mm posterior disc protrusion abutting the cord ventrally causing mild central canal and bilateral foraminal stenosis. T6-T7: No significant disc pathology. Normal ligamentum flava morphology, no arthropathy of the facet joints, and no significant spinal canal stenosis. T7-T8: No significant disc pathology. Normal ligamentum flava morphology, no arthropathy of the facet joints, and no significant spinal canal stenosis. T8-T9: No significant disc pathology. Normal ligamentum flava morphology, no arthropathy of the facet joints, and no significant spinal canal stenosis. T9-T10: No significant disc pathology. Normal ligamentum flava morphology, no arthropathy of the facet joints, and no significant spinal canal stenosis. T10-T11: No significant disc pathology. Normal ligamentum flava morphology, no arthropathy of the facet joints, and no significant spinal canal stenosis. T11-T12: No significant disc pathology. Normal ligamentum flava morphology, no arthropathy of the facet joints, and no significant spinal canal stenosis. Soft Tissues: Normal appearance of the paraspinal soft tissues. No abnormal masses, fluid collections, or signs of inflammation. Thoracic Kyphosis: Normal thoracic kyphosis without abnormal curvature. N.B: signs of cervical spinal fusion noted IMPRESSION: 1. Thoracic spondylotic changes with multilevel discopathies as described. 2. The study is partially degraded by patient motion artifact yet the cord apears of normal caliber. A questionable intramedullay long segment of faint bright T2 signal noted at the lower dorsal spinal cord which may be artifactual, however an underlying syringomyelia cannot be excluded. Please correlate clinically. Electronically signed by Fredrick Orta 11-23-2024 02:14 AM
[2024-11-23 07:07] LABS: Basophils # (auto) 0.06 K/uL (0.00-0.20); Basophils % (auto) 0.7 %; Eosinophils # (auto) 0.14 K/uL (0.00-0.50); Eosinophils % (auto) 1.7 %; Hematocrit (blood only) 34.1 % (37.0-47.0); Hemoglobin 11.6 g/dl (12.0-16.0); Immature Granulocytes # (auto) 0.05 K/uL (0.01-0.20); Immature Granulocytes % (auto) 0.6 %; Lymphocytes # (auto) 0.96 K/uL (1.20-3.40); Lymphocytes % (auto) 11.4 %; Mean Corpuscular Hemoglobin 30.8 pg (25.0-34.0); Mean Corpuscular Volume 90.5 fL (80.0-100.0); Mean Platelet Volume 8.1 fL (9.4-12.4); Monocytes # (auto) 0.77 K/uL (0.11-0.59); Monocytes % (auto) 9.2 %; Neutrophils # (auto) 6.41 K/uL (1.40-6.50); Neutrophils % (auto) 76.4 %; Platelet Count 410 K/uL (130-400); RDW Coefficient of Variation 14.8 % (11.5-14.5); RDW Standard Deviation 49.4 fL (36.4-46.3); Red Blood Count 3.77 M/uL (4.20-5.40); White Blood Count 8.39 K/ul (4.8-10.8)
[2024-11-23 07:22] LABS: Albumin Globulin Ratio 0.9 (0.9-2); Albumin Level 3.2 gm/dl (3.4-5.0); BUN Creatinine Ratio 32.7 (10-20); Bilirubin,Total 0.4 mg/dl (0.2-1.0); Calcium 9.3 mg/dl (8.6-10.3); Creatinine Clr Calc Pharmacy 86.3 ml/min; Globulin 3.5 gm/dl (2.5-4.0); Magnesium 1.6 mg/dl (1.7-2.4); Phosphorus 2.9 mg/dl (2.5-4.9); Potassium 4.1 mmol/L (3.5-5.1); Total Protein 6.7 gm/dl (6.0-8.3)
[2024-11-23] MEDS: MAGNESIUM OXIDE 400 MG TAB PO SCH (10:13)
[2024-11-23] MEDS: OLANZapine ZYDIS 5 MG ORALLY DIS. TAB PO SCH (11:12)
--- NOTE | 2024-11-23 11:45 | Palliative Care Progress Note ---
Date of Service November 23, 2024 Assessment & Plan (1) Palliative care by specialist: (2) Advanced care planning/counseling discussion: Plan Pt does require a proxy for medical decisions. Patient currently lacks decisional capacity based on the inability to convey understanding of personal PMHx, current medical condition, treatment options nor the risks / benefits of those options, and lack of ability to make decisions based on such knowledge. Hospital does not have written documentation of patient wishes concerning her chosen proxy for medical decisions. Per PA [id number], in absence of written documentation of patient wishes, pt's proxy for medical decisions would be her spouse. No visitors present today, attempt made to contact pt's spouse by phone, no answer, general VM left. Received call back from Kwame, he is not able to come to hospital today or tomorrow, [facility] meeting planned for at 11am. Admission and Anticipated Discharge Date Admission Date: November 21, 2024 Subjective Assessed pt at bedside, she was oriented to person only and pleasantly communicative. She denied any discomfort and was trying to get out of bed but cooperative with verbal request to stay in bed. No visitors present. Review of Systems Review of Systems: Unobtainable due to cognitive status Physical Exam Physical Exam: General Appearance: WD/WN, vitals as above, sitting up in bed, appears chronically ill, poor insight, scattered ecchymosis on limbs Head: normocephalic, atraumatic Eyes: normal inspection Respiratory: normal respiratory effort, lungs clear to auscultation. No accessory muscle use Cardiovascular: regular rate, rhythm, normal peripheral pulses, no BLE edema Chest: normal inspection of chest Abdomen/GI: normal bowel sounds, soft, nontender Extremities/Musculoskeletal: R shoulder in sling. R hip without TTP. extremities motor strength 5/5 Neurologic: PERRL, moves all extremities Psychiatric: A+Ox person & place, flat affect Skin: no rashes, normal color, warm/dry Results & Data Vital Signs (Past 12 Hours) Vital Signs Temp Pulse Pulse Resp BP Pulse Ox O2 Del Method 11/23/24 11:36 36.5 C 83 16 118/70 91 Room Air 11/23/24 07:38 Room Air 11/23/24 07:38 36.8 C 79 16 121/75 91 Room Air 11/23/24 07:16 108 H 11/23/24 03:15 36.8 C 84 18 146/81 H 92 Room Air Laboratory Results Abnormal lab results 11/22/24 11/22/24 11/23/24 Range/Units 20:19 Unknown 06:40 RBC 3.77 L (4.20-5.40) M/uL Hgb 11.6 L (12.0-16.0) g/dl Hct 34.1 L (37.0-47.0) % RDW Std Deviation 49.4 H (36.4-46.3) fL RDW Coeff of Kelvin 14.8 H (11.5-14.5) % Plt Count 410 H (130-400) K/uL MPV 8.1 L (9.4-12.4) fL Lymph # (Auto) 0.96 L (1.20-3.40) K/uL [place] # (Auto) 0.77 H (0.11-0.59) K/uL Sodium 131 L (136-145) mmol/L Chloride 96 L (98-107) mmol/L Creatinine 0.49 L (0.6-1.2) mg/dl BUN/Creatinine Ratio 32.7 H (10-20) POC Glucose 100 H (70-99) mg/dl Magnesium 1.6 L (1.7-2.4) mg/dl Alkaline Phosphatase 174 H (34-104) U/L Albumin 3.2 L (3.4-5.0) gm/dl Urine Ketones Trace H (Negative) Urine Blood Trace H (Negative) Ur Leukocyte Esterase 1+ H (Negative) Urine WBC (Auto) 6-10 H (0-5) /hpf Urine RBC (Auto) 3-5 H (0-2) /hpf U Epithel Cells (Auto) 11-20 H (0-2) /hpf Urine Bacteria (Auto) 1+ H (None Seen) Calcium Oxalate Crystal Present A (None Prsent) Urine Yeast Present A (None Prsent) Diagnostic Findings Cervical Spine CT 11/21/24 14:44 EXAM: CT cervical spine without contrast CLINICAL HISTORY: Fall from bed TECHNIQUE: Contiguous axial images were obtained through the cervical spine without the use of intravenous contrast. Sagittal and coronal reformations are supplied. PRIORS: None FINDINGS: Moderate osseous demineralization noted. Anterior fusion hardware present at C3-C7. Intervertebral disc spacers noted. Allowing for cervical hardware, approximately 4 mm of retrolisthesis of C4 with respect to C3 is noted, image 58, series 601, age-indeterminate. No priors available for comparison. Hardware creates significant artifact. Moderate facet hypertrophic changes noted. Severe facet hypertrophic changes at C2-C3. No acute displaced fracture or dislocation is identified, allowing for hardware and motion artifact. No prevertebral soft tissue swelling. IMPRESSION: 1. Anterior fusion hardware noted with lordotic straightening and possible retrolisthesis of C4 with respect to C3, age-indeterminate. Please correlate with prior imaging if appropriate. No prevertebral soft tissue swelling. 2. No displaced fracture or dislocation Electronically signed by Mala Santoyo 11-21-2024 5:24 PM Femur X-Ray 11/21/24 14:44 EXAMINATION: X-ray femur right 2 view routine CLINICAL HISTORY: Fall from bed, right hip PRIORS: October 25, 2024 TECHNIQUE: 2 views right femur FINDINGS: Moderate osseous demineralization noted. Marked flattening of the humeral head noted, unchanged. Allowing for this, no displaced right hip fracture. No femoral shaft fracture. Soft tissue calcification noted adjacent to the midshaft femur, unchanged. No suprapatella joint effusion. At the edge of the [id number], the possibility of a right obturator ring fracture is raised. IMPRESSION: Osseous demineralization with no displaced femoral fracture The possibility of a right obturator ring fracture is raised, at the edge of the [id number] . ACT 112: Positive. There are findings on this examination that require communication between the performing entity and the patient following Patient Test Result Information Act ([place] ACT 112) guidelines. Electronically signed by Mala Santoyo 11-21-2024 4:[address] 11/21/24 14:44 EXAMINATION: Head CT without CLINICAL HISTORY: Fell from bed PRIORS: 04 September 2024 TECHNIQUE: Contiguous axial images were obtained through the head without the use of intravenous contrast. Sagittal and coronal reformations are supplied. FINDINGS: Mild parenchymal volume is noted. Bilateral chronic infarctions and craniotomy changes, unchanged. Baer-white differentiation is preserved. No edema or midline shift. No new intra-axial or extra-axial hemorrhage. Ventricles are normal in size and configuration. Brainstem and cerebellum have a normal appearance. Calvarium unremarkable. Paranasal sinuses and mastoid air cells are well-pneumatized. Globes are intact. No retrobulbar abnormality. IMPRESSION: No CT evidence of an acute intracranial abnormality. Electronically signed by Mala Santoyo 11-21-2024 5:24 PM Hip/Pelvis X-Ray 11/21/24 14:44 EXAMINATION: X-ray hip bilateral 2 view with pelvis CLINICAL HISTORY: Fall from bed, right hip PRIORS: October 25, 2024 TECHNIQUE: AP view pelvis, multiple views right hip FINDINGS: Moderate osseous demineralization noted. Marked flattening of the humeral head noted, unchanged. Allowing for this, no displaced right hip fracture. Advanced degenerative change noted with eiak-fa-[id number] appearance of the right hip superiorly. Healed or healing left pubic symphysis fracture noted No widening of the pubic symphysis. IMPRESSION: Osseous demineralization with flattening of the right femoral head, degenerative change and no displaced fracture identified. Electronically signed by Mala Santoyo 11-21-2024 4:36 PM Ankle X-Ray 11/21/24 14:54 EXAMINATION: X-ray ankle right 2 view CLINICAL HISTORY: Fall from bed PRIORS: None TECHNIQUE: Crosstable AP and lateral FINDINGS: Moderate osseous demineralization noted. Surgical screws present in the midfoot. 2 of the surgical screws are fractured but not displaced. Calcaneus unremarkable. Talar dome is intact. No acute fracture or dislocation. Moderate degenerative change of the ankle. Talar dome unremarkable. No soft tissue abnormality. IMPRESSION: Osseous demineralization with no plain film evidence of a displaced fracture. Fractured surgical screws. Electronically signed by Mala Santoyo 11-21-2024 4:[address] 11/21/24 14:54 EXAMINATION: Chest CT without CLINICAL HISTORY: Fall from bed COMPARISON: None TECHNIQUE: Contiguous axial images were obtained through the chest without the use of intravenous contrast. Sagittal and coronal reformations are supplied. FINDINGS: Moderate osseous demineralization noted. Allowing for this, no sternal, clavicle, scapula or thoracic acute osseous abnormality. Moderate degenerative change present through the thoracic spine. No displaced acute rib fracture. Healing left lateral 5th and 6th fractures present. No pneumothorax or pulmonary contusion. No pleural or pericardial effusion. Trachea and mainstem bronchi patent. Moderate atherosclerotic disease of the proximal aorta present. No soft tissue swelling or hematoma in the subcutaneous tissues of the chest wall. Limited visualization of the upper abdomen is unremarkable. IMPRESSION: No CT evidence of an acute or traumatic abnormality in the chest. Two healing left-sided rib fractures. Electronically signed by Mala Santoyo 11-21-2024 5:24 PM Brain MRI 11/21/24 18:02 CR Exam(s): MRI HEAD W/WO Contrast IV Amt: 5cc gadavist EXAM: MR Head Without and With Intravenous Contrast CLINICAL HISTORY: Reason for exam: AMS, hx of brain mets, sp craniotomy. TECHNIQUE: Magnetic resonance images of the head/brain without and with intravenous contrast in multiple planes. CONTRAST: Patient received 5cc gadavist of IV contrast COMPARISON: Prior head CT from November 21, 2024. FINDINGS: This study is limited secondary to motion artifact. Brain: There are multiple enhancing nodules within the ependymoma of the right lateral ventricle, third ventricle, interpedicular cistern and left frontal lobe with surrounding vasogenic edema. There is a tiny enhancing nodule in the right occipital lobe. Postsurgical changes in the right parietal lobe and left frontal lobe with surrounding encephalomalacia and gliosis. No mass. No hemorrhage. No acute infarct. The flow voids at the base of the brain are intact. Ventricles: Unremarkable. No ventriculomegaly. Bones/joints: Bilateral craniotomies. Status post anterior fusion of the cervical spine. No acute fracture. Sinuses: Unremarkable as visualized. No acute sinusitis. Mastoid air cells: There is a small amount of fluid in the left mastoid air cells. No mastoid effusion. Orbits: Unremarkable as visualized. 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 Recommend MRI of the cervical, thoracic and lumbar spine to evaluate for leptomeningeal spread of tumor. Communications: Verify Receipt Electronically signed by: Mera Tong MD 11/22/24 01:50 AM Lumbar Spine X-Ray 11/21/24 18:29 EXAM: XR lumbar spine 2-3V CLINICAL HISTORY: back pain, suspected fall. TECHNIQUE: X-ray images of the lumbar spine were obtained in anteroposterior (AP)Ls spot view, Oblique and lateral projections. COMPARISON: Lumbar spine, dated 09/10/2019 FINDINGS: Alignment: A progression is noted regarding L4-L5 grade II spondylolisthesis (12 mm compared to 9 mm). Unchanged compression collapse affecting the upper Vertebral endplates of the L5 vertebral body. A newly developed straightening of the lumbar spine, denoting back muscle spasm. No abnormal curvature, such as scoliosis or lordosis. Unchanged lower facet joints arthropathy. The sacroiliac joints appear normal. Vertebral Bodies: A stable lumbar spondylodegenerative change, evident by the presence of marginal osteophytes. No evidence of fractures, other compression deformities, or significant osseous lesions. Intervertebral Disc Spaces: A newly developed narrowed L1-L2 disc space. Unchanged narrowed L3-L4 and L4-L5 disc spaces. Soft Tissues: Right hypochondria cholecystectomy surgical clips. Paraspinal soft tissues are of normal thickness. No evidence of paraspinal soft tissue swelling or mass effect. Additional Findings: Abnormal, irregular spherical shape of the right femoral head. No other significant abnormalities are noted. IMPRESSION: 1. A progression is noted regarding L4-L5 grade II spondylolisthesis (12 mm compared to 9 mm). 2. Unchanged compression collapse affecting the upper Vertebral endplates of the L5 vertebral body. 3. A newly developed straightening of the lumbar spine, denoting back muscle spasm. 4. A newly developed narrowed L1-L2 disc space. 5. A stable lumbar spondylodegenerative change with narrowed L3-L4 and L4-L5 disc spaces and lower facet joints arthropathy. 6. Abnormal, irregular spherical shape of the right femoral head. A dedicated X-ray study of the right hip joint is recommended. If clinically warranted. Disclaimer: A subtle bone abnormality or fracture may not be readily apparent on X-rays, thus, clinical correlation and further imaging, including follow-up CT, MRI, or follow-up X-rays, are advised as needed. Electronically signed by Fredrick Orta 11-21-2024 8:15 PM Cervical Spine MRI 11/22/24 02:05 EXAM: MR cervical spine wo con CLINICAL HISTORY: Back pain. TECHNIQUE: MRI of the cervical spine was performed. Sequences obtained include sagittal T1-weighted, T2-weighted, STIR (Short Tau Inversion Recovery), and axial T2-weighted sequences. Additional sequences such as gradient echo (GRE) or post-contrast T1-weighted images may have been included based on clinical indication. COMPARISON: Comparison is made with prior imaging studies dated 11/21/2024. FINDINGS: Limited study due to metallic and motion-related artifacts. Vertebral Alignment: Loss of normal cervical lordosis, with metallic spinal fixator extending from C3-C6 levels, with intervertebral disc expanders. Mild anterolisthesis of C3 over C4 vertebral body and subtle anterolisthesis of C6 over C7 vertebral body. No evidence of acute fracture or dislocation. Vertebral Bodies and Intervertebral Discs: Normal vertebral body height and alignment. The intervertebral discs are replaced by disc expanders from C3-C6 levels. The rest of the intervertebral discs demonstrate markedly reduced height and desiccation changes. Ysdtq-ld-[id number] analysis: C2-C3: A 2.6 mm posterior disc bulge with associated posterolateral osteophytes is seen, causing complete effacement of the anterior thecal sac, with associated hypertrophied ligamentum flavum/facet arthropathy effacing the posterior thecal sac, leading to moderate spinal canal narrowing and posterior indentation on the spinal cord. C3-C4, C4-C5, C5-C6 levels: Limited evaluation due to metallic artifacts. Intervertebral disc expanders are seen. Posterolateral osteophytes and hypertrophic facet/uncovertebral joint arthropathy are seen, causing effacement of the anterior thecal sac with mild spinal canal narrowing. The posterior thecal sleeve is preserved. C6-C7: Mild anterolisthesis of C6 over C7 vertebral body with an intervertebral disc knurling machine operator at this level. Moderate to marked spinal canal and neural foraminal narrowing is seen at this level. The effect is augmented by hypertrophied ligamentum flavum/facet joint arthropathy. High signal within the spinal cord, suggesting myelomalacia change. C7-T1: A 2.6 mm posterior disc bulge is seen causing indentation of the anterior thecal sac. No significant spinal canal or neural foraminal narrowing is seen. Ligamentum flavum hypertrophy/Facet joint arthropathy noted. Spinal Cord and Nerve Roots: High signal in the spinal cord at C6-C7 levels, suggesting myelomalacia. Nerve roots appear unremarkable bilaterally. Soft Tissues: Paraspinal soft tissues appear normal without evidence of abnormal signal intensity or mass lesions. IMPRESSION: 1. Limited study due to metallic and motion-related artifacts. 2. Loss of normal cervical lordosis, with metallic spinal fixator extending from C3-C6 levels, with intervertebral disc expanders(unchanged). 3. Marked cervical spondylotegenerative changes as detailed below, with mild anterolisthesis of C3 over C4 vertebral body and subtle anterolisthesis of C6 over C7 vertebral body(unchanged). 4. C2-C3: A 2.6 mm posterior disc bulge with associated posterolateral osteophytes, with associated hypertrophied ligamentum flavum/facet arthropathy, leading to moderate spinal canal narrowing and posterior indentation on the spinal cord. 5. C3-C4, C4-C5, C5-C6 levels: Limited evaluation due to metallic artifacts. Intervertebral disc expanders are seen. Posterolateral osteophytes and hypertrophic facet/uncovertebral joint arthropathy, causing effacement of the anterior thecal sac with mild spinal canal narrowing. 6. C6-C7: Mild anterolisthesis of C6 over C7 vertebral body with an intervertebral disc knurling machine operator at this level. Moderate to marked spinal canal and neural foraminal narrowing. The effect is augmented by hypertrophied ligamentum flavum/facet joint arthropathy. High signal within the spinal cord, suggesting myelomalacia. 7. Unavailability of post-contrast images, leading to limited evaluation for metastasis. Electronically signed by Fredrick Orta 11-23-2024 01:55 AM Thoracic Spine MRI 11/22/24 02:05 EXAM: MR thoracic spine wo con CLINICAL HISTORY: back pain TECHNIQUE: Multiplanar multi sequential MRI sequences of the thoracic spine without contrast administration were obtained. COMPARISON: None. FINDINGS: Intervertebral Discs: Reduced height and signal intensity of the intervertebral discs. Multilevel disc desiccation. Spinal Cord: The study is partially degraded by patient motion artifact yet the cord apears of normal caliber. A questionable intramedullay long segment of faint bright T2 signal noted at the lower dorsal spinal cord which may be artifactual, however an underlying syringomyelia cannot be excluded. Facet Joints: Normal appearance of the facet joints. No evidence of facet arthropathy or significant degenerative changes. Vertebrae: Normal alignment of the thoracic vertebrae. No fractures, lytic or sclerotic lesions. Anterior osteophytic lipping and mild subchondral degenerative marrow changes of the opposing vertebral endplates Level by level analysis: C7-T1: a1.5 mm posterior disc protrusion abutting the cord ventrally causing mild central canal and bilateral foraminal stenosis. T1-T2: a 1.8 mm posterior disc protrusion abutting the cord ventrally causing mild central canal and bilateral foraminal stenosis. T2-T3: No significant disc pathology. Normal ligamentum flava morphology, no arthropathy of the facet joints, and no significant spinal canal stenosis. T3-T4: No significant disc pathology. Normal ligamentum flava morphology, no arthropathy of the facet joints, and no significant spinal canal stenosis. T4-T5: No significant disc pathology. Normal ligamentum flava morphology, no arthropathy of the facet joints, and no significant spinal canal stenosis. T5-T6: a 2.2 mm posterior disc protrusion abutting the cord ventrally causing mild central canal and bilateral foraminal stenosis. T6-T7: No significant disc pathology. Normal ligamentum flava morphology, no arthropathy of the facet joints, and no significant spinal canal stenosis. T7-T8: No significant disc pathology. Normal ligamentum flava morphology, no arthropathy of the facet joints, and no significant spinal canal stenosis. T8-T9: No significant disc pathology. Normal ligamentum flava morphology, no arthropathy of the facet joints, and no significant spinal canal stenosis. T9-T10: No significant disc pathology. Normal ligamentum flava morphology, no arthropathy of the facet joints, and no significant spinal canal stenosis. T10-T11: No significant disc pathology. Normal ligamentum flava morphology, no arthropathy of the facet joints, and no significant spinal canal stenosis. T11-T12: No significant disc pathology. Normal ligamentum flava morphology, no arthropathy of the facet joints, and no significant spinal canal stenosis. Soft Tissues: Normal appearance of the paraspinal soft tissues. No abnormal masses, fluid collections, or signs of inflammation. Thoracic Kyphosis: Normal thoracic kyphosis without abnormal curvature. N.B: signs of cervical spinal fusion noted IMPRESSION: 1. Thoracic spondylotic changes with multilevel discopathies as described. 2. The study is partially degraded by patient motion artifact yet the cord apears of normal caliber. A questionable intramedullay long segment of faint bright T2 signal noted at the lower dorsal spinal cord which may be artifactual, however an underlying syringomyelia cannot be excluded. Please correlate clinically. Electronically signed by Fredrick Orta 11-23-2024 02:14 AM Medications Administered Current Inpatient Medications Atorvastatin Calcium (Atorvastatin 20 Mg Tab) 20 mg PO QPM [facility] Stop: 12/21/24 22:09 Last Admin: 11/22/24 20:37 Dose: 20 mg Carbamazepine (Carbamazepine 200 Mg Tablet) 600 mg PO QAM [facility] Stop: 12/22/24 08:59 Last Admin: 11/23/24 10:13 Dose: 600 mg Carbamazepine (Carbamazepine Xr 200 Mg Tabcr) 400 mg PO QPM [facility] Stop: 12/21/24 22:09 Last Admin: 11/22/24 20:38 Dose: 400 mg Dabrafenib (Dabrafenib Mesylate) 1 each PO BID [facility] Stop: 12/22/24 12:29 Last Admin: 11/23/24 07:49 Dose: 1 each Diclofenac Sodium (Diclofenac Sod 1% Gel 100 Gm Tube) 4 gm EXT BID [facility]; Protocol Stop: 12/21/24 22:09 Last Admin: 11/23/24 07:48 Dose: 4 gm Docusate Sodium (Docusate Sodium 100 Mg Cap) 100 mg PO DAILY [facility] Stop: 12/22/24 08:59 Last Admin: 11/23/24 07:48 Dose: 100 mg Acetaminophen (Ofirmev) 1,000 mg in 100 mls @ 400 mls/hr IV Q8H PRN PRN Reason: Moderate Pain (Scale 4, 5, 6) Stop: 11/24/24 22:09 Ketorolac Tromethamine (Ketorolac Tromethamine 15 Mg/Ml Vial) 15 mg IV Q6H PRN PRN Reason: Mild Pain (Scale 1, 2, 3) Stop: 11/26/24 22:09 Last Admin: 11/23/24 06:05 Dose: 15 mg Lansoprazole (Lansoprazole 30 Mg Soltab) 30 mg PO [facility] Stop: 12/22/24 08:59 Last Admin: 11/23/24 07:49 Dose: 30 mg Levothyroxine Sodium (Levothyroxine Sodium 200 Mcg Tablet) 200 mcg PO DAILYBB [facility] Stop: 12/22/24 06:29 Last Admin: 11/23/24 06:04 Dose: 200 mcg Lidocaine (Lidocaine 5% 1 Patch) [facility] Stop: 12/22/24 08:59 Last Admin: 11/23/24 07:48 Dose: 1 patch Losartan Potassium (Losartan Potassium 50 Mg Tab) 50 mg PO [facility] Stop: 12/22/24 08:59 Last Admin: 11/23/24 07:49 Dose: 50 mg Magnesium Oxide (Magnesium Oxide 400 Mg Tab) 400 mg PO BID [facility] Stop: 12/23/24 08:59 Last Admin: 11/23/24 10:13 Dose: 400 mg Miscellaneous (Remove Lidoderm Patch) 1 each N/A DAILY@2100 [facility] Stop: 12/22/24 20:59 Last Admin: 11/22/24 20:31 Dose: 1 each Olanzapine (Olanzapine 10 Mg/2.1 Ml Sdv) 2.5 mg IM Q4H PRN PRN Reason: Agitation Stop: 12/22/24 19:58 Olanzapine (Olanzapine Zydis 5 Mg Orally Dis. Tab) 2.5 mg PO QAM [facility] Stop: 12/23/24 10:29 Last Admin: 11/23/24 11:12 Dose: 2.5 mg Ondansetron HCl (Ondansetron Inj 2 Mg/Ml 2 Ml Vial) 4 mg IV Q4H PRN PRN Reason: Nausea And Vomiting Stop: 12/21/24 22:09 Paroxetine HCl (Paroxetine Hcl 20 Mg Tab) 40 mg PO QAM [facility] Stop: 12/22/24 08:59 Last Admin: 11/23/24 07:49 Dose: 40 mg Trametinib (Trametinib Dimethyl Sulfoxide 0.5 Mg Tablets) 3 each PO DAILY [facility] Stop: 12/22/24 12:29 Last Admin: 11/23/24 07:50 Dose: 3 each Vitamin D (Cholecalciferol 25 Mcg (1000 Units) Tab) 25 mcg PO MOFR@0900 [facility] Stop: 12/22/24 08:59 Last Admin: 11/22/24 08:41 Dose: 25 mcg PG Care Time/CCT Total # of Minutes Spent Total Time Spent with Patient: Total time spent is greater than 50% in coordination of care (as documented) at patient's floor/unit and/or counseling patient: [place] [address] SUB INP/OBS CARE 25MIN Patient Type Established History Problem Focused Exam Problem Focused Medical Decision Making Low Complexity Diagnoses Palliative care by specialist Z51.5 Advanced care planning/counseling discussion Z71.89
--- NOTE | 2024-11-23 16:33 | Hospitalist Progress Note ---
Date of Service November 23, 2024 Assessment & Plan (1) Fall: (2) AMS (altered mental status): (3) Melanoma metastatic to brain: (4) Weakness generalized: (5) Degenerative joint disease of right hip: Plan Patient is a 64-year-old female with history of metastatic melanoma, chronic hyponatremia, seizure disorder, hypertension, hyperlipidemia, hypothyroidism and other medical problems presents after history of fall from bed while at rehab facility. Patient was recently hospitalized and managed for pathological fracture of right acetabulum, right femoral head and left rib fractures, UTI. She was thought to be more confused from her baseline. Acute Encephalopathy Worsening memory Melanoma with mets to brain s/p Craniotomy in Feb 2024 Seizure disorder --Dx 2021, original site left leg, s/p XRT, s/p L frontal craniotomy at [facility] [place] 03/13 -Forgetful with waxing and waning mentation since February, per . Worsening jail memory as above -Cont dabrafenib and Mekinist from home Limited bone scan of the right lower extremity did not show any metastatic disease - Follow-up with oncology as outpatient - Cont carbamazepine Delirium precautions. Frequent reorientation, avoid sedating medications as able PRN Zyprexa Multiple falls Ambulatory dysfunction Failure to thrive Imaging all grossly unremarkable for acute fracture UA suggestive of infection, urine Cx pending. Empiric rocephin Gentle IV fluids Goals of care need to be readdressed Pain control as needed Neurochecks, fall precautions, PT OT lumbar x-ray given back pain secondary to fall <RI cervical and thoracic spine noting syringomyelia cannot be ruled out- consult placed to ortho spine palliative care input to address goals of care PT/OT Acute on chronic hyponatremia Likely multifactorial secondary to carbamazepine, hypothyroidism, poor oral intake Urine sodium, urine and serum osmolality IV fluids Improved HTN - Home meds: losartan HLD - Continue atorvastatin Mood disorder -Continue paroxetine Hypothyroidism -Continue Levothyroxine 200 mcg DVT ppx: teds, scds FEN/GI: Allow HH diet CODE: Full Admission and Anticipated Discharge Date Admission Date: November 21, 2024 Subjective Pt was seen in AM Overnight agitated requiring zyprexa doses Trying to climb out of bed, notes hallucinations Review of Systems Review of Systems: All systems reviewed & are unremarkable except as noted in Subjective Physical Exam Physical Exam: General: Alert, orientedx1. No acute distress Skin:bruising on face Neuro: alertx1 HEENT: NC/AT CV: RRR Resp: Breath sounds clear bilaterally, no increased effort of breathing Abdomen: Soft, nontender Extremities: No edema in lower extremities bilaterally. Results & Data Results & Data Vital Signs (Past 12 Hours) Vital Signs Temp Pulse Pulse Resp BP Pulse Ox O2 Del Method 11/23/24 16:00 36.7 C 83 18 118/62 93 Room Air 11/23/24 11:36 36.5 C 83 16 118/70 91 Room Air 11/23/24 07:38 Room Air 11/23/24 07:38 36.8 C 79 16 121/75 91 Room Air 11/23/24 07:16 108 H (1) Fall Encounter type: initial encounter Qualified Code(s): W19.XXXA - Unspecified fall, initial encounter
[2024-11-23] MEDS: cefTRIAXone SODIUM 2,000 MG/50 ML BAG IV SCH (19:26)
[2024-11-24 06:55] LABS: Basophils # (auto) 0.07 K/uL (0.00-0.20); Basophils % (auto) 0.8 %; Eosinophils # (auto) 0.13 K/uL (0.00-0.50); Eosinophils % (auto) 1.4 %; Hematocrit (blood only) 31.5 % (37.0-47.0); Hemoglobin 10.8 g/dl (12.0-16.0); Immature Granulocytes # (auto) 0.03 K/uL (0.01-0.20); Immature Granulocytes % (auto) 0.3 %; Lymphocytes # (auto) 0.63 K/uL (1.20-3.40); Lymphocytes % (auto) 6.8 %; Mean Corpuscular Hgb Conc 34.3 g/dL (32.0-36.0); Mean Corpuscular Volume 90.5 fL (80.0-100.0); Mean Platelet Volume 8.2 fL (9.4-12.4); Monocytes # (auto) 0.65 K/uL (0.11-0.59); Neutrophils % (auto) 83.7 %; Platelet Count 395 K/uL (130-400); RDW Coefficient of Variation 14.9 % (11.5-14.5); RDW Standard Deviation 49.4 fL (36.4-46.3); Red Blood Count 3.48 M/uL (4.20-5.40); White Blood Count 9.31 K/ul (4.8-10.8)
[2024-11-24 07:39] LABS: Albumin Globulin Ratio 0.9 (0.9-2); Albumin Level 3.1 gm/dl (3.4-5.0); Bilirubin,Total 0.4 mg/dl (0.2-1.0); Creatinine Clr Calc Pharmacy 84.6 ml/min; Globulin 3.4 gm/dl (2.5-4.0); Magnesium 1.7 mg/dl (1.7-2.4); Phosphorus 3.1 mg/dl (2.5-4.9); Potassium 4.2 mmol/L (3.5-5.1); Total Protein 6.5 gm/dl (6.0-8.3)
[2024-11-24] MEDS ORDERED: VANCOMYCIN CONSULT ACTIVE PRN (07:45)
--- NOTE | 2024-11-24 08:10 | Orthopedic Consultation ---
Date of Service November 24, 2024 History of Present Illness Reason for Consultation: 64-year-old female resident of [facility] [place] with PMHx of melanoma with metastatic disease of the brain (dx 2021, original site left leg, s/p XRT, s/p L frontal craniotomy at [facility] [place] [place] 03/13) complicated by seizure disorder, chronic hyponatremia, hypertension, CAD, seizure disorder, cerebral atrophy, mood disorder and other medical problems listed below who presents from home to the emergency room on November 21. Pt was previously admitted to [facility] hospital 09/03/24 and discharged to [facility] on 09/09/24 and from there was discharged home. She was also recently admitted from 10/25/26-11/03/24 for acute pain in R knee, severe right hip osteoarthritis, age related osteoporosis found to have multiple old fractures. Ortho was involved at that time and did not recommend surgery. Today she presents after being found on the ground out of bed at [facility] [place], no new fractures noted on imaging today. In talking with the patient this morning she has generalized pain in the areas as noted including low back pain. According to the information provided, the patient has short term memory issues has been an issue since craniotomy. Patient underwent spine MRIs revealing possible syringomyelia, she is also status post prior 4 level cervical fusion. Exam reveals the patient with limited cooperation to have some limitations in lower extremity function, she can flex and extend her left ankle and toes to a limited degree, no significant pain with gentle range of motion, right leg is in a hip flexed position and any attempt to mobilize this cause some pain in around the right hip. Patient has the ability to do limited braided band assembler strength in the upper extremities at the 4 out of 5 range, also the other motor groups appear to be in the same range of strength with reasonable flexion sessions strength in the elbows at 4+. MR cervical spine wo con November 21, 2024 CLINICAL HISTORY: Back pain. COMPARISON: Comparison is made with prior imaging studies dated 11/21/2024. FINDINGS: Limited study due to metallic and motion-related artifacts. Vertebral Alignment: Loss of normal cervical lordosis, with metallic spinal fixator extending from C3-C6 levels, with intervertebral disc expanders. Mild anterolisthesis of C3 over C4 vertebral body and subtle anterolisthesis of C6 over C7 vertebral body. No evidence of acute fracture or dislocation. Normal vertebral body height and alignment. The rest of the intervertebral discs demonstrate markedly reduced height and desiccation changes. [id number] analysis: C2-C3: A 2.6 mm posterior disc bulge with associated posterolateral osteophytes is seen, causing complete effacement of the anterior thecal sac, with associated hypertrophied ligamentum flavum/facet arthropathy effacing the posterior thecal sac, leading to moderate spinal canal narrowing and posterior indentation on the spinal cord. C3-C4, C4-C5, C5-C6 levels: Limited evaluation due to metallic artifacts. Intervertebral disc expanders are seen. Posterolateral osteophytes and hypertrop hic facet/uncovertebral joint arthropathy are seen, causing effacement of the anterior thecal sac with mild spinal canal narrowing. The posterior thecal sleeve is preserved. C6-C7: Mild anterolisthesis of C6 over C7 vertebral body with an intervertebral disc private secretary at this level. Moderate to marked spinal canal and neural foraminal narrowing is seen at this level. The effect is augmented by h ypertrophied ligamentum flavum/facet joint arthropathy. High signal within the spinal cord, suggesting myelomalacia change. C7-T1: A 2.6 mm posterior disc bulge is seen causing indentation of the anterior thecal sac. No significant spinal canal or neural foraminal narrowing is seen. Ligamentum flavum hypertrophy/Facet joint arthropathy noted. Spinal Cord and Nerve Roots: High signal in the spinal cord at C6-C7 levels, suggesting myelomalacia. IMPRESSION: 1. Limited study due to metallic and motion-related artifacts. 2. Loss of normal cervical lordosis, with metallic spinal fixator extending from C3-C6 levels, with intervertebral disc expanders(unchanged). 3. Marked cervical spondylotegenerative changes as detailed below, with mild anterolisthesis of C3 over C4 vertebral body and subtle anterolisthesis of C6 over C7 vertebral body(unchanged). 4. C2-C3: A 2.6 mm posterior disc bulge with associated posterolateral osteophytes, with associated hypertrophied ligamentum flavum/facet arthropathy, leading to moderate spinal canal narrowing and posterior indentation on the spinal cord. 5. C3-C4, C4-C5, C5-C6 levels: Limited evaluation due to metallic artifacts. Intervertebral disc expanders are seen. Posterolateral osteophytes and hypertrophic facet/uncovertebral joint arthropathy, causing effacement of the anterior thecal sac with mild spinal canal narrowing. 6. C6-C7: Mild anterolisthesis of C6 over C7 vertebral body with an intervertebral disc private secretary at this level. Moderate to marked spinal canal and neural foraminal narrowing. The effect is augmented by hypertrophied ligamentum myelomalacia. 7. Unavailability of post-contrast images, leading to limited evaluation for metastasis. MR thoracic spine wo con November 21, 2024 CLINICAL HISTORY: back pain COMPARISON: None. Intervertebral Discs: Reduced height and signal intensity of the intervertebral discs. Multilevel disc desiccation. Spinal Cord: The study is partially degraded by patient motion artifact yet the cord apears of normal caliber. A questionable intramedullay long segment of faint bright T2 signal noted at the lower dorsal spinal cord which may be artifactual, however an underlying syringomyelia cannot be excluded. Facet Joints: Normal appearance of the facet joints. No evidence of facet arthropathy or significant degenerative changes. Vertebrae: Normal alignment of the thoracic vertebrae. No fractures, lytic or sclerotic lesions. Anterior osteophytic lipping and mild subchondral degenerative marrow changes of the opposing vertebral endplates Level by level analysis: C7-T1: a1.5 mm posterior disc protrusion abutting the cord ventrally causing mild central canal and bilateral foraminal stenosis. T1-T2: a 1.8 mm posterior disc protrusion abutting the cord ventrally causing mild central canal and bilateral foraminal stenosis. T2-T3: No significant disc pathology. Normal ligamentum flava morphology, no arthropathy of the facet joints, and no significant spinal canal stenosis. T3-T4: No significant disc pathology. Normal ligamentum flava morphology, no arthropathy of the facet joints, and no significant spinal canal stenosis. T4-T5: No significant disc pathology. Normal ligamentum flava morphology, no arthropathy of the facet joints, and no significant spinal canal stenosis. T5-T6: a 2.2 mm posterior disc protrusion abutting the cord ventrally causing mild central canal and bilateral foraminal stenosis. T6-T7: No significant disc pathology. Normal ligamentum flava morphology, no arthropathy of the facet joints, and no significant spinal canal stenosis. T7-T8: No significant disc pathology. Normal ligamentum flava morphology, no arthropathy of the facet joints, and no significant spinal canal stenosis. T8-T9: No significant disc pathology. Normal ligamentum flava morphology, no arthropathy of the facet joints, and no significant spinal canal stenosis. T9-T10: No significant disc pathology. Normal ligamentum flava morphology, no arthropathy of the facet joints, and no significant spinal canal stenosis. T10-T11: No significant disc pathology. Normal ligamentum flava morphology, no arthropathy of the facet joints, and no significant spinal canal stenosis. T11-T12: No significant disc pathology. Normal ligamentum flava morphology, no arthropathy of the facet joints, and no significant spinal canal stenosis. Soft Tissues: Normal appearance of the paraspinal soft tissues. No abnormal masses, fluid collections, or signs of inflammation. Thoracic Kyphosis: Normal thoracic kyphosis without abnormal curvature. N.B: signs of cervical spinal fusion noted IMPRESSION: 1. Thoracic spondylotic changes with multilevel discopathies as described. 2. The study is partially degraded by patient motion artifact yet the cord apears of normal caliber. A questionable intramedullay long segment of faint bright T2 signal noted at the lower dorsal spinal cord which may be artifactual, however an underlying syringomyelia cannot be excluded. Please correlate clinically. Review of cervical and thoracic MRI images from [facility] on November 21, 2024, is my separate interpretation, there is significant artifact from motion, this reveals the patient to have had prior surgery with multilevel anterior cervical decompression fusion C3-C7, there was 2 mm of anterior subluxation of C7 on T1, review of CT scan images of the cervical spine from November 21, 2024 reveals pseudoarthrosis at the C6-7 level with degenerative changes at the C7-T1 level. There is central stenosis with potentially some myelomalacia at the C7-T1 level. Thoracic MRI reveals potentially syringomyelia which compromised due to motion artifact. Review of lumbar radiographs also taken on November 21, 2024 reveals the patient to have significant degenerative changes involving the lower 3 lumbar levels which include a combination of disc degeneration degenerative spondylolisthesis. Of note is also erosion of the superior aspect of the right femoral head. Impression: Findings as noted in both the central spine and also syringomyelia noted in a thoracic MRI, significant degenerative changes involving the lower lumbar spine. Recommendation: Certainly the patient has significant changes involving the cervical and lumbar spine with changes as described which could cause back pain and/or neck pain. No recommended treatment when taking into account the patient's status at this point relative to palliative care and current diagnosis with metastatic melanoma. Requesting Physician: . Attending Physician: Simone Sweeney MD . Allergies Allergy/AdvReac Type Severity Reaction Status Date / Time telithromycin [From Ketek] Allergy Unknown Unknown Verified 11/21/24 22:15 erythromycin base AdvReac Unknown BROUGHT ON Verified 11/21/24 22:16 SEIZURES Macrolide Antibiotics AdvReac Unknown Caused Verified 11/21/24 22:15 seizures prior to brain surgery Home Medications Medication Instructions Recorded Confirmed Type triamcinolone acetonide 0.1 % 1 applic topical BID itching #15 04/28/24 11/21/24 Rx topical cream grams cholecalciferol (vitamin D3) 25 25 mcg PO MOFR@0900 09/03/24 11/21/24 History mcg (1,000 unit) tablet levothyroxine 200 mcg tablet 200 mcg PO DAILY 09/03/24 11/21/24 History acetaminophen 500 mg tablet 1,000 mg (2 x 500 mg) PO Q8H #14 09/09/24 11/21/24 Rx (Tylenol Extra Strength) tabs atorvastatin 20 mg tablet 20 mg PO QPM #30 tabs 09/09/24 11/21/24 Rx dabrafenib 75 mg capsule (Tafinlar) 75 mg PO AMHS #30 caps 09/09/24 11/21/24 Rx losartan 50 mg tablet 50 mg PO QAM #30 tabs 09/09/24 11/21/24 Rx paroxetine HCl 40 mg tablet 40 mg PO QAM #30 tabs 09/09/24 11/21/24 Rx trametinib 0.5 mg tablet (Mekinist) 1.5 mg (3 x 0.5 mg) PO DAILY #30 09/09/24 11/21/24 Rx tabs docusate sodium 100 mg capsule 100 mg PO DAILY 10/25/24 11/21/24 History diclofenac sodium 1 % topical gel 4 g EXT BID #100 grams 11/03/24 11/21/24 Rx (Voltaren Arthritis Pain) lansoprazole 30 mg delayed 30 mg PO QAM #30 tabs 11/03/24 11/21/24 Rx release,disintegrating tablet (Prevacid SoluTab) carbamazepine 200 mg tablet 600 mg PO QAM 11/21/24 11/21/24 History carbamazepine 200 mg 400 mg PO QPM 11/21/24 11/21/24 History tablet,extended release,12 hr Past Med/Surg History Problem List (Updated 11/24/24 @ 19:20 by Bear Burch PA-C) Acute pain of right lower extremity (Acute) Acute hyponatremia (Acute) Fall at alf (Acute) 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 Weakness generalized Advanced care planning/counseling discussion Pelvic fracture Age-related osteopor w/curr pathol fx of lower leg w/routine heal Counseling regarding goals of care Pain provoked by trauma Palliative care by specialist Fall Contusion of right shoulder (Acute) Left rib fracture (Acute) Closed fracture of right hip (Acute) Acetabulum fracture, right (Acute) Closed fracture of pubic ramus AMS (altered mental status) Fracture of left hip Pelvic ring fracture Weakness (Acute) Hypothyroidism Combined receptive and expressive aphasia Vasogenic edema (Acute) Memory changes Melanoma metastatic to brain (Chronic) Medical History Seizure disorder History of melanoma October 2017 --diag with superficial spreading melanoma of the left leg, [id number], Stage IIIc. 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 S/p re-excision and SLNB 12/26/2017 (-margins; 3 of 3 nodes involved) S/p nivolumab 02/04 - 04/08 S/p right parietal craniotomy for near total resection 08/20/2021 S/p Radiation therapy to brain mets, including post op bed; Aug -September 2021 S/p dabrafinib and trametinib 10/09 --dose reduced in mid 2021; ongoing Rx Jul 2022--SRS to left frontal lobe Aug 2023--s/p ALYSHA and bx of Left Frontal mass. Path-- brain parenchyma with reactive gliosis.Negative for malignancy. MRI feb 20, 2024--Parenchymal abnormality at the treatment site measuring 1.9 cm, not fully characterized. Surrounding vasogenic edema and mild mass effect, increased since pretreatment imaging. 03/03/2024--s/p L frontal craniotomy for resection ( Dr Hand) ; path showed Residual/recurrent metastatic melanoma Surgical History S/P craniotomy Dr. Yazan Crowe Neurosurgery 03/03/24 Left frontal craniotomy for tumor resection with vycor tube and dynamic retraction, use of brainlab neuronavigation, use of neurophysiological monitoring (SSEP/MEP/motor language, subcortical stimulation) Status post right foot surgery History of knee replacement procedure of left knee History of partial hysterectomy H/O craniotomy History of back surgery History of brain surgery x2 Hx of cholecystectomy Family History Grandfather (Maternal) Cancer Breast cancer Sister Cancer Breast cancer Father Cancer Colon cancer Social History Smoking Status: Never smoker Tobacco Type: Cigarettes Cigarettes Per Day: 13; Second Hand Exposure: Yes; Do You Dip or Chew Tobacco: No; Hx Alcohol Use: No Hx Substance Use: No Preferred Language: [place] Communication Ability: Impaired Visual Impairment: No Limitations Hearing Ability: Normal Natural Resources Engineer Required: No Beliefs That Will Affect Care: None marital status: Current Living Situation: Intermediate Current Living Situation Comment: [facility] [place] current occupational status: employed 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 Physical Exam . Results & Data Results & Data Laboratory Results . Diagnostic Findings . PG Care Time/CCT Total # of Minutes Spent Total Time Spent with Patient: Total time spent is greater than 50% in coordination of care (as documented) at patient's floor/unit and/or counseling patient: Coding Level of Care Code 95204 IN/OBS CONSULT LVL 3,45M
[2024-11-24 08:25] LABS: Troponin I High Sensitivity 6.5 pg/ml (0-14)
[2024-11-24] MEDS: PIPERACILLIN/TAZOBACTAM 4.5 GM/100 ML BAG IV SCH (08:34)
[2024-11-24] MEDS: ACETAMINOPHEN 1,000 MG/100 ML VIAL IV PRN (08:34)
--- NOTE | 2024-11-24 08:50 | XRay Report ---
XR chest 1V portable CLINICAL HISTORY: sepsis COMPARISON STUDY: 10/25/2024 FINDINGS: Heart size and pulmonary vasculature are normal. No effusion, consolidation, or pneumothora x. IMPRESSION: No acute findings. ACT 112: Negative or not required by law. Electronically signed by: Amadou Nelson M.D. 11/24/2024 8:49 AM
[2024-11-24] MEDS: VANCOMYCIN HCL 1,000 MG/270 ML BAG IV ONE (09:31)
[2024-11-24] MEDS: ALBUT/IPRATROP 3MG/0.5MG NEB 3 ML VIAL ONE (09:42)
--- NOTE | 2024-11-24 10:14 | Pharmacy Report ---
Pharmacy PK ABX Note - Date of Service November 24, 2024 - Assessment and Plan Assessment 64 year old F receiving Zosyn/vancomycin for empiric treatment (48 hour automatic stop) of altered mental status/UTI?. Pertinent microbiologic data includes: blood cultures pending, urine with pinpoint growth (re-incubating) Day # 1 of vancomycin therapy Plan Vancomycin * Loading dose: 1000 mg IV x 1 * Maintenance dose: 1000 mg IV every 12 hours starting 11/24 at 1600 * Regimen is predicted to achieve target AUC/CARLYLE of 400-600 mg/L.hr * Random level stephan be ordered if continued beyond 48 hours Pharmacy will continue to follow and will adjust dose/frequency as necessary. Thank you. Pharmacy has transitioned to AUC monitoring for vancomycin. AUC/CARLYLE is the preferred PK/PD target and is associated with decreased risk of nephrotoxicity compared to traditional trough targets.
[2024-11-24 10:49] LABS: Appearance Urine Turbid (Clear); Bacteria Urine Automated 3+ (None Seen); Bilirubin Urine Negative (Negative); Blood Urine 3+ (Negative); Color Urine Dark Yellow; Glucose Urine UA Negative (Negative); Ketones Urine 1+ (Negative); Leukocyte Esterase Urine 3+ (Negative); Nitrite Urine Positive (Negative); Protein Urine 1+ (Negative); RBC Urine Automated >20 /hpf (0-2); Urobilinogen Urine Negative (Negative); WBC Urine Automated >50 /hpf (0-5)
--- NOTE | 2024-11-24 12:10 | Hospitalist Progress Note ---
Date of Service November 24, 2024 Assessment & Plan (1) Fall: (2) AMS (altered mental status): (3) Melanoma metastatic to brain: (4) Weakness generalized: (5) Degenerative joint disease of right hip: Plan Patient is a 64-year-old female with history of metastatic melanoma, chronic hyponatremia, seizure disorder, hypertension, hyperlipidemia, hypothyroidism and other medical problems presents after history of fall from bed while at rehab facility. Patient was recently hospitalized and managed for pathological fracture of right acetabulum, right femoral head and left rib fractures, UTI. She was thought to be more confused from her baseline. Acute Metabolic Encephalopathy Melanoma with mets to brain s/p Craniotomy in Feb 2024 Seizure disorder --Dx 2021, original site left leg, s/p XRT, s/p [place] [facility] -Forgetful with waxing and waning mentation since February, per . 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 Frequent reorientation, avoid sedating medications as able SIRS Criteria -unclear source, potentially urinary in nature vs. central vs. meningitis vs. abdomen/pelvis (less likely) vs. CAP (negative chest xray -febrile, tachycardic Plan: -start vanc/zosyn, blood cultures x2, sputum culture ordered -UA with reflex ordered -LR bolus+maitenance ordered Multiple falls Ambulatory dysfunction Failure to thrive Imaging all grossly unremarkable for acute fracture -likely decline 2/2 end stage melanoma -[facility] discussion in person tomorrow at 11 am Acute on chronic hyponatremia -Likely multifactorial secondary to carbamazepine, hypothyroidism, poor oral intake -Urine sodium, urine and serum osmolality HTN - Home meds: losartan HLD - Continue atorvastatin Mood disorder -Continue paroxetine Hypothyroidism -Continue Levothyroxine 200 mcg I spent a total of 60 minutes in direct patient care, including [id number] time with the patient and/or family, reviewing medical records, ordering and reviewing diagnostic tests, and coordinating care with other healthcare providers. This time includes: history taking, physical examination, medical decision making, counseling, ECG interpretation, imaging interpretation, lab interpretation, orders, and education, excluding time spent in the performance of separately billed services. Admission and Anticipated Discharge Date Admission Date: November 23, 2024 Subjective Patient seen and examined at bedside. Orriented to self and partially location, not year. Did not have capacity during my assessment for medical decisions. Did state she wants her Kwame to make decisions on her behalf if she is unable to. DIscussed code status with , after giving medical update. Stated that her confusion is likely 2/2 progression of brain mets, and that she is now showing signs of developing an infection. Expressed concern that time may be shorter than we had hoped. Discussed code status at length, risk and benefits explained, in my medical opinion resuscitation would not be recommended given very low likelihood of benefit and high likelihood of suffering in advanced melanoma. Kwame states he would not want her to suffer and would not want her to receive intubation or chest compressions, as they will likely do more harm than good. Review of Systems Review of Systems: -unable to answer due to mental status Physical Exam Physical Exam: Gen: A&O 1 NAD HEENT: NCAT, EOMI, not icteric. External ears normal. No rhinorrhea. Moist mucous membranes. Neck: Supple, full range of motion, no observable masses, No meningeal sign. Lungs: No Respiratory distress. CV: tachycardic, regular rhythm Abdomen: Soft, nondistended, No rebound tenderness. MSK: No joint swelling, no redness. Skin: No rashes, petechiae, lesions. Normal color per patient. Neuro: Normal Gait, Grossly intact. Results & Data Results & Data Vital Signs (Past 12 Hours) Vital Signs Temp Pulse Resp BP Pulse Ox O2 Del Method O2 Flow Rate 11/24/24 07:55 38.6 C H 11/24/24 07:36 37.4 C 108 H 18 103/67 90 Room Air 11/24/24 04:00 36.8 C 69 18 137/70 94 Trach Collar 6 Laboratory Results -personally reviewed, normal LA reassuring, negative troponin reassuring, tachycardic/febrile concerning for sepsis Diagnostic Findings Chest X-Ray 11/24/24 07:48 XR chest 1V portable CLINICAL HISTORY: sepsis COMPARISON STUDY: 10/25/2024 FINDINGS: Heart size and pulmonary vasculature are normal. No effusion, consolidation, or pneumothorax. IMPRESSION: No acute findings. ACT 112: Negative or not required by law. Electronically signed by: Amadou Nelson M.D. 11/24/2024 8:49 AM -personally reviewed, chest xray unremarkable Medications Administered Atorvastatin Calcium (Atorvastatin 20 Mg Tab) 20 mg PO QPM [facility] Stop: 12/21/24 22:09 Last Admin: 11/23/24 19:26 Dose: 20 mg Documented By: Admin: 11/22/24 20:37 Dose: 20 mg Documented By: Admin: 11/21/24 23:16 Dose: 20 mg Documented By: GAIL Carbamazepine (Carbamazepine 200 Mg Tablet) 600 mg PO QAM [facility] Stop: 12/22/24 08:59 Last Admin: 11/24/24 08:39 Dose: 600 mg Documented By: ЕЛЕНА Admin: 11/23/24 10:13 Dose: 600 mg Documented By: Admin: 11/22/24 08:41 Dose: 600 mg Documented By: ASMITA Carbamazepine (Carbamazepine Xr 200 Mg Tabcr) 400 mg PO QPM [facility] Stop: 12/21/24 22:09 Last Admin: 11/23/24 19:31 Dose: 400 mg Documented By: Admin: 11/22/24 20:38 Dose: 400 mg Documented By: Admin: 11/21/24 23:16 Dose: 400 mg Documented By: GAIL Dabrafenib (Dabrafenib Mesylate) 1 each PO BID [facility] Stop: 12/22/24 12:29 Last Admin: 11/24/24 08:39 Dose: 1 each Documented By: ЕЛЕНА Co-signed By: YANI Admin: 11/23/24 19:28 Dose: 1 each Documented By: ANUM Co-signed By: PATRICIA Admin: 11/23/24 07:49 Dose: 1 each Documented By: SRAVANI Co-signed By: SEDRICK Admin: 11/22/24 20:35 Dose: 1 each Documented By: GAIL Co-signed By: PATRICIA Admin: 11/22/24 12:47 Dose: 1 each Documented By: ASMITA Co-signed By: YANI Diclofenac Sodium (Diclofenac Sod 1% Gel 100 Gm Tube) 4 gm EXT BID [facility]; Protocol Stop: 12/21/24 22:09 Last Admin: 11/24/24 08:40 Dose: 4 gm Documented By: ЕЛЕНА Admin: 11/23/24 19:27 Dose: 4 gm Documented By: Admin: 11/23/24 07:48 Dose: 4 gm Documented By: Admin: 11/22/24 20:30 Dose: 4 gm Documented By: Admin: 11/22/24 08:40 Dose: 4 gm Documented By: Admin: 11/21/24 23:17 Dose: 4 gm Documented By: GAIL Docusate Sodium (Docusate Sodium 100 Mg Cap) 100 mg PO DAILY [facility] Stop: 12/22/24 08:59 Last Admin: 11/24/24 08:40 Dose: 100 mg Documented By: ЕЛЕНА Admin: 11/23/24 07:48 Dose: 100 mg Documented By: Admin: 11/22/24 08:40 Dose: 100 mg Documented By: ASMITA Piperacillin Sod/Tazobactam Sod (Zosyn) 4.5 gm in 100 mls @ 25 mls/hr IV Q8H [facility]; Protocol Stop: 11/26/24 07:44 Last Infusion: 11/24/24 09:04 Dose: Infused Documented By: ЕЛЕНА Admin: 11/24/24 08:34 Dose: 200 mls/hr Documented By: ЕЛЕНА Acetaminophen (Ofirmev) 1,000 mg in 100 mls @ 400 mls/hr IV Q8H PRN PRN Reason: Moderate Pain, fever over 101F Stop: 11/24/24 22:09 Last Infusion: 11/24/24 08:49 Dose: Infused Documented By: ЕЛЕНА Admin: 11/24/24 08:34 Dose: 400 mls/hr Documented By: ЕЛЕНА Ketorolac Tromethamine (Ketorolac Tromethamine 15 Mg/Ml Vial) 15 mg IV Q6H PRN PRN Reason: Mild Pain (Scale 1, 2, 3) Stop: 11/26/24 22:09 Last Admin: 11/23/24 19:28 Dose: 15 mg Documented By: Admin: 11/23/24 06:05 Dose: 15 mg Documented By: Admin: 11/22/24 20:30 Dose: 15 mg Documented By: Admin: 11/22/24 04:24 Dose: 15 mg Documented By: GAIL Lansoprazole (Lansoprazole 30 Mg Soltab) [facility]: 12/22/24 08:59 Last Admin: 11/24/24 08:39 Dose: 30 mg Documented By: ЕЛЕНА Admin: 11/23/24 07:49 Dose: 30 mg Documented By: Admin: 11/22/24 08:40 Dose: 30 mg Documented By: ASMITA Levothyroxine Sodium (Levothyroxine Sodium 200 Mcg Tablet) 200 mcg PO DAILYBB [facility] Stop: 12/22/24 06:29 Last Admin: 11/24/24 05:54 Dose: 200 mcg Documented By: Admin: 11/23/24 06:04 Dose: 200 mcg Documented By: Admin: 11/22/24 04:25 Dose: 200 mcg Documented By: GAIL Lidocaine (Lidocaine 5% 1 Patch) 1 patch TD [facility] Stop: 12/22/24 08:59 Last Admin: 11/23/24 19:48 Dose: 1 patch Documented By: Admin: 11/23/24 07:48 Dose: 1 patch Documented By: Admin: 11/22/24 08:40 Dose: 1 patch Documented By: ASMITA Losartan Potassium (Losartan Potassium 50 Mg Tab) 50 mg PO [facility] Stop: 12/22/24 08:59 Last Admin: 11/24/24 08:39 Dose: 50 mg Documented By: ЕЛЕНА Admin: 11/23/24 07:49 Dose: 50 mg Documented By: Admin: 11/22/24 08:40 Dose: 50 mg Documented By: ASMITA Magnesium Oxide (Magnesium Oxide 400 Mg Tab) 400 mg PO BID [facility] Stop: 12/23/24 08:59 Last Admin: 11/24/24 08:39 Dose: 400 mg Documented By: ЕЛЕНА Admin: 11/23/24 19:27 Dose: 400 mg Documented By: Admin: 11/23/24 10:13 Dose: 400 mg Documented By: SRAVANI Miscellaneous (Remove Lidoderm Patch) 1 each N/A DAILY@2100 [facility] Stop: 12/22/24 20:59 Last Admin: 11/23/24 19:49 Dose: 1 each Documented By: Admin: 11/22/24 20:31 Dose: 1 each Documented By: EVA Olanzapine (Olanzapine Zydis 5 Mg Orally Dis. Tab) 2.5 mg PO [facility] Stop: 12/23/24 10:29 Last Admin: 11/24/24 08:40 Dose: 2.5 mg Documented By: ЕЛЕНА Admin: 11/23/24 11:12 Dose: 2.5 mg Documented By: SRAVANI Paroxetine HCl (Paroxetine Hcl 20 Mg Tab) 40 mg PO QAM [facility] Stop: 12/22/24 08:59 Last Admin: 11/24/24 08:39 Dose: 40 mg Documented By: ЕЛЕНА Admin: 11/23/24 07:49 Dose: 40 mg Documented By: Admin: 11/22/24 08:41 Dose: 40 mg Documented By: ASMITA Trametinib (Trametinib Dimethyl Sulfoxide 0.5 Mg Tablets) 3 each PO DAILY [facility] Stop: 12/22/24 12:29 Last Admin: 11/24/24 08:39 Dose: 3 each Documented By: ЕЛЕНА Co-signed By: YANI Admin: 11/23/24 07:50 Dose: 3 each Documented By: SRAVANI Co-signed By: SEDRICK Admin: 11/22/24 12:48 Dose: 3 each Documented By: ASMITA Co-signed By: YANI Vitamin D (Cholecalciferol 25 Mcg (1000 Units) Tab) 25 mcg PO MOFR@0900 [facility] Stop: 12/22/24 08:59 Last Admin: 11/22/24 08:41 Dose: 25 mcg Documented By: ASMITA (1) Fall Encounter type: initial encounter Qualified Code(s): W19.XXXA - Unspecified fall, initial encounter
[2024-11-24] MEDS: LACTATED RINGER'S 500 ML IV ONE (13:18)
[2024-11-24] MEDS: LACTATED RINGER'S 1,000 ML IV SCH (13:18)
[2024-11-24] MEDS: VANCOMYCIN HCL 1,000 MG/270 ML BAG IV SCH (15:08)
--- NOTE | 2024-11-24 16:24 | Oncology Consultation ---
Date of Consultation November 24, 2024 Assessment & Plan (1) History of melanoma: (2) Melanoma metastatic to brain: Plan Patient with metastatic malignant melanoma presenting with worsening in baseline mental status. Brain imaging concerning for possible leptomeningeal disease. Ideally, she would need LP to assess for leptomeningeal disease and also to assess for CSF pressure. She has not received immunotherapy since she was diagnosed with metastatic disease and this would be a viable option if performance status was better. Given current performance status, would recommend strong consideration for hospice. Thank you for this consult. Will sign off at this time. Please feel free to call if you have any further questions. History of Present Illness Reason for Consultation: Metastatic malignant melanoma Attending Physician: Simone Sweeney MD History of Present Illness 64-year-old female with history of metastatic malignant melanoma followed by Dr. Watkins of medical oncology at [facility]. Could not obtain history from patient as she was not responsive to my questions. Review of past medical history indicates that she was initially diagnosed with malignant melanoma of the left leg around December, for which she underwent surgical resection followed by 1 year of adjuvant immunotherapy with nivolumab. She then developed recurrent disease with brain metastasis around July, for which she underwent right parietal craniotomy with resection and pathology confirming metastatic malignant melanoma. She then received radiation therapy and subsequently started dabrafenib/trametinib for BRAF mutated disease. Since then, she has had multiple recurrences in the brain for which she required stereotactic radiation therapy in July,. She is also s/p ALYSHA, left frontal craniotomy and more recently radiation therapy to single brain lesion around March,.She presented s/p fall and with worsening in baseline mental status. 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 MRI cervical and thoracic spine on 11/22/2024 showed degenerative changes with no evidence of malignancy. Allergies Allergy/AdvReac Type Severity Reaction Status Date / Time telithromycin [From Ketek] Allergy Unknown Unknown Verified 11/21/24 22:15 erythromycin base AdvReac Unknown BROUGHT ON Verified 11/21/24 22:16 SEIZURES Macrolide Antibiotics AdvReac Unknown Caused Verified 11/21/24 22:15 seizures prior to brain surgery Home Medications Medication Instructions Recorded Confirmed Type triamcinolone acetonide 0.1 % 1 applic topical BID itching #15 04/28/24 11/21/24 Rx topical cream grams cholecalciferol (vitamin D3) 25 25 mcg PO MOFR@0900 09/03/24 11/21/24 History mcg (1,000 unit) tablet levothyroxine 200 mcg tablet 200 mcg PO DAILY 09/03/24 11/21/24 History acetaminophen 500 mg tablet 1,000 mg (2 x 500 mg) PO Q8H #14 09/09/24 11/21/24 Rx (Tylenol Extra Strength) tabs atorvastatin 20 mg tablet 20 mg PO QPM #30 tabs 09/09/24 11/21/24 Rx dabrafenib 75 mg capsule (Tafinlar) 75 mg PO [facility] #30 caps 09/09/24 11/21/24 Rx losartan 50 mg tablet 50 mg PO QAM #30 tabs 09/09/24 11/21/24 Rx paroxetine HCl 40 mg tablet 40 mg PO QAM #30 tabs 09/09/24 11/21/24 Rx trametinib 0.5 mg tablet (Mekinist) 1.5 mg (3 x 0.5 mg) PO DAILY #30 09/09/24 11/21/24 Rx tabs docusate sodium 100 mg capsule 100 mg PO DAILY 10/25/24 11/21/24 History diclofenac sodium 1 % topical gel 4 g EXT BID #100 grams 11/03/24 11/21/24 Rx (Voltaren Arthritis Pain) lansoprazole 30 mg delayed 30 mg PO QAM #30 tabs 11/03/24 11/21/24 Rx release,disintegrating tablet (Prevacid SoluTab) carbamazepine 200 mg tablet 600 mg PO QAM 11/21/24 11/21/24 History carbamazepine 200 mg 400 mg PO QPM 11/21/24 11/21/24 History tablet,extended release,12 hr Patient History Medical History Seizure disorder History of melanoma October 2017 --diag with superficial spreading melanoma of the left leg, [id number], Stage IIIc. 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 S/p re-excision and SLNB 12/26/2017 (-margins; 3 of 3 nodes involved) S/p nivolumab 02/04 - 04/08 S/p right parietal craniotomy for near total resection 08/20/2021 S/p Radiation therapy to brain mets, including post op bed; Aug -September 2021 S/p dabrafinib and trametinib 10/09 --dose reduced in mid 2021; ongoing Rx Jul 2022--SRS to left frontal lobe Aug 2023--s/p ALYSHA and bx of Left Frontal mass. Path-- brain parenchyma with reactive gliosis.Negative for malignancy. MRI feb 20, 2024--Parenchymal abnormality at the treatment site measuring 1.9 cm, not fully characterized. Surrounding vasogenic edema and mild mass effect, increased since pretreatment imaging. 03/03/2024--s/p L frontal craniotomy for resection ( Dr Hand) ; path showed Residual/recurrent metastatic melanoma Surgical History S/P craniotomy Dr. Hand [facility] 03/03/24 Left frontal craniotomy for tumor resection with vycor tube and dynamic retraction, use of brainlab neuronavigation, use of neurophysiological monitoring (SSEP/MEP/motor language, subcortical stimulation) Status post right foot surgery History of knee replacement procedure of left knee History of partial hysterectomy H/O craniotomy History of back surgery History of brain surgery x2 Hx of cholecystectomy Family History Grandfather (Maternal) Cancer Breast cancer Sister Cancer Breast cancer Father Cancer Colon cancer Social History Smoking Status: Never smoker Tobacco Type: Cigarettes Cigarettes Per Day: 13; Second Hand Exposure: Yes; Do You Dip or Chew Tobacco: No; Hx Alcohol Use: No Hx Substance Use: No Preferred Language: Niuean Communication Ability: Impaired Visual Impairment: No Limitations Hearing Ability: Normal Neurodiagnostic Technologist Required: No Beliefs That Will Affect Care: None marital status: Current Living Situation: Intermediate Current Living Situation Comment: [facility] current occupational status: employed 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
[2024-11-25 08:09] VITALS: RESP 16; O2SAT 93
[2024-11-25 08:16] LABS: Basophils # (auto) 0.04 K/uL (0.00-0.20); Basophils % (auto) 0.9 %; Eosinophils # (auto) 0.15 K/uL (0.00-0.50); Eosinophils % (auto) 3.4 %; Hematocrit (blood only) 30.7 % (37.0-47.0); Hemoglobin 10.4 g/dl (12.0-16.0); Immature Granulocytes # (auto) 0.02 K/uL (0.01-0.20); Immature Granulocytes % (auto) 0.4 %; Lymphocytes % (auto) 22.5 %; Mean Corpuscular Hemoglobin 31.1 pg (25.0-34.0); Mean Corpuscular Hgb Conc 33.9 g/dL (32.0-36.0); Mean Corpuscular Volume 91.9 fL (80.0-100.0); Mean Platelet Volume 8.2 fL (9.4-12.4); Monocytes # (auto) 0.58 K/uL (0.11-0.59); Neutrophils # (auto) 2.66 K/uL (1.40-6.50); Neutrophils % (auto) 59.8 %; Platelet Count 332 K/uL (130-400); RDW Coefficient of Variation 14.9 % (11.5-14.5); RDW Standard Deviation 50.7 fL (36.4-46.3); Red Blood Count 3.34 M/uL (4.20-5.40); White Blood Count 4.45 K/ul (4.8-10.8)
[2024-11-25 08:38] LABS: Albumin Globulin Ratio 0.9 (0.9-2); Albumin Level 2.9 gm/dl (3.4-5.0); BUN Creatinine Ratio 22.5 (10-20); Bilirubin,Total 0.3 mg/dl (0.2-1.0); Calcium 8.5 mg/dl (8.6-10.3); Creatinine Clr Calc Pharmacy 105.7 ml/min; Globulin 3.3 gm/dl (2.5-4.0); Magnesium 1.7 mg/dl (1.7-2.4); Phosphorus 2.8 mg/dl (2.5-4.9); Potassium 3.6 mmol/L (3.5-5.1); Total Protein 6.2 gm/dl (6.0-8.3)
--- NOTE | 2024-11-25 09:39 | Palliative Family Discussion ---
Date of Service November 25, 2024 Patient Directed Conference Time of Meetin:00 Participants: Lamar Casillas AGACNP Patient participation: [] Patient Support System: [] Other Healthcare Provider Participation: Simone Sweeney MD Meeting Location: bedside Advanced Directive available: No If yes, descriptors: The patient's surrogate medical decision maker participated: spouse Kwame Garcia Legally authorized health care proxy: spouse Other surrogate: n/a A family meeting was held for LIGIA GARCIA. This meeting was necessary for determining the appropriate course of treatment. Topics of Discussion Topics of Discussion: 1. expected progression of disease and prognosis 2. goals of care 3. POLST 4. Other Content of Meetin. Opportunity given for participants to speak and ask questions. 2. Participants were assured of attention to patient comfort. 3. Reassurance provided. 4. Support was provided for informed, good-jeffery decisions. 5. Emotions expressed by family were acknowledged and addressed. 6. Follow-up Outpatient: n/a 7. Plan of Care: [] * Dying patients fear dyspnea and pain, therefore, symptom control is one cornerstone of pulmonary palliative care. Dyspnea is a prominent symptom of the patient with advanced respiratory disease of any cause: nearly all patients with COPD had dyspnea during the last 3 days of their lives. Providers routinely care for patients with chronic or advanced respiratory diseases and critical illnesses. The ATS recognizes: the growing importance and complexity of palliative care for patients with life-threatening and life- limiting diseases and disorders and the need for improving professional competence and teamwork in providing such care. The statement strongly endorses the concept that palliative care should be available to patients at all stages of illness and should be individualized based on the needs and preferences of the patient and the patients family. Clinicians should consult with palliative care specialists as appropriate for managing palliative care situations beyond the clinicians level of competence. * (ATS Clinical Policy Statement: Palliative Care for Patients with Respiratory Diseases and Critical Illnesses; Ross Barreto, et al., for the [place] [employer], the [place] [employer], the [place] [employer], and the Respiratory Society* Diagnosis and Management of Stable Chronic Obstructive Pulmonary Disease: A Clinical Practice Guideline Update from the [place] [employer], [place] [employer], [place] [employer], and Respiratory Society . Ananya Fax Machine Operator Med. 2011;[id number].) * Dying process: Discussed changes pt may move through in the dying process including but not limited to sleeping more, disorientation when awake, restlessness, diminished senses/inability to respond to stimulus although ability to be aware of them remains intact longer, and changes in body temper atures, skin changes/mottling/cyanosis, respiratory pattern changes, and oral secretions. Family verbalized understanding. The goal is to assure a peaceful . Time Involved in Meeting: I spent [] minutes overall addressing this case: 5 in medical data review/discussion with referring provider(s) and/or preparation for the visit [] in direct interaction with the patient and spouse [] Advance Care Planning/Goals of Care discussions as detailed above in note (must be >16min) [] in subsequent review and synthesis of assessment and plan [] in communicating with other providers regarding the patient's case: []
[2024-11-25] MEDS ORDERED: LORazepam 2 MG/1 ML VIAL IV PRN (10:22)
[2024-11-25] MEDS ORDERED: MoRPHine SULFATE 10 MG/0.5 ML UDP PO PRN (10:22)
[2024-11-25 11:18] VITALS: BP 131/71; PULSE 87; TEMP 99.3
[2024-11-25] MEDS: MoRPHine SULFATE 2 MG/ML CARP IV PRN (11:53)
--- NOTE | 2024-11-25 12:02 | Hospitalist Progress Note ---
Date of Service November 25, 2024 Assessment & Plan (1) Fall: (2) AMS (altered mental status): (3) Melanoma metastatic to brain: (4) Weakness generalized: (5) Degenerative joint disease of right hip: Plan Patient is a 64-year-old female with history of metastatic melanoma, chronic hyponatremia, seizure disorder, hypertension, hyperlipidemia, hypothyroidism and other medical problems presents after history of fall from bed while at rehab facility. Patient was recently hospitalized and managed for pathological fracture of right acetabulum, right femoral head and left rib fractures, UTI. She was thought to be more confused from her baseline. Acute Metabolic Encephalopathy Melanoma with mets to brain s/p Craniotomy in Feb 2024 Seizure disorder --Dx 2021, original site left leg, s/p XRT, s/[place] [facility] [place] -Forgetful with waxing and waning mentation since February, per . 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 subq ativan SIRS Criteria -unclear source, potentially urinary in nature vs. central vs. meningitis vs. abdomen/pelvis (less likely) vs. CAP (negative chest xray -febrile, tachycardic Plan: -comfort focused care Multiple falls Ambulatory dysfunction Failure to thrive Imaging all grossly unremarkable for acute fracture -likely decline 2/2 end stage melanoma Acute on chronic hyponatremia -Likely multifactorial secondary to carbamazepine, hypothyroidism, poor oral intake -Urine sodium, urine and serum osmolality HTN HLD Mood disorder -Continue paroxetine Hypothyroidism I spent a total of 50 minutes in direct patient care, including [id number] time with the patient and/or family, reviewing medical records, ordering and reviewing diagnostic tests, and coordinating care with other healthcare providers. This time includes: history taking, physical examination, medical decision making, counseling, ECG interpretation, imaging interpretation, lab interpretation, orders, and education, excluding time spent in the performance of separately billed services. I spent a total of 30 minutes providing advanced care planning to the patient and/or family, including [id number] time discussing the patient's health status, prognosis, and treatment options. This time includes specific activities such as: discussing advance directives, goals of care, prognostication, and end-of-life planning. Admission and Anticipated Discharge Date Admission Date: November 23, 2024 Subjective Patient seen and examined at bedside. Unable to discuss current condition, minimally arousable. Discussion regarding goals with , see below. Advanced Care Plannin minutes discussing goals and values with at bedside, who is next of kin. Meeting started by introducing ourselves. Started by offering condolences in regards to patients declining condition, and updated him on current condition, which includes end stage melanoma with likely leptomeningeal spread of disease and rapidly declining mental status. He states immediately he does not want her to suffer, and wants to "keep her comfortable". He states that she has a bed at [facility] and he wants her to go back there for the end of her life. He states he is unable to take care of her at home. He states he does not want any further blood draws or interventions to prolong her life, just to keep her comfortable. Hospice discussed at length. He states that all he wants if for her to be comfortable, and would like to sign on with hospice services and go back to [facility]. Review of Systems Review of Systems: -unable to endorse due to mental status Physical Exam Physical Exam: Gen: A&O 1 NAD HEENT: NCAT, EOMI, not icteric. External ears normal. No rhinorrhea. Moist mucous membranes. Neck: Supple, full range of motion, no observable masses, No meningeal sign. Lungs: No Respiratory distress. CV: tachycardic, regular rhythm Abdomen: Soft, nondistended, No rebound tenderness. MSK: No joint swelling, no redness. Skin: No rashes, petechiae, lesions. Normal color per patient. Neuro: Normal Gait, Grossly intact. Results & Data Results & Data Vital Signs (Past 12 Hours) Vital Signs Temp Pulse Resp BP Pulse Ox O2 Del Method 11/25/24 11:16 37.4 C 87 16 131/71 93 Room Air 11/25/24 08:09 36.6 C 83 16 126/77 93 Room Air Laboratory Results -personally reviewed, Hgb stable, no leukocytosis, labs with evidence of mild dehydration, alk phos downtrending Medications Administered Carbamazepine (Carbamazepine 200 Mg Tablet) 600 mg PO QAM [facility] Stop: 12/22/24 08:59 Last Admin: 11/25/24 10:34 Dose: Not Given Documented By: ЕЛЕНА Admin: 11/24/24 08:39 Dose: 600 mg Documented By: ЕЛЕНА Admin: 11/23/24 10:13 Dose: 600 mg Documented By: Admin: 11/22/24 08:41 Dose: 600 mg Documented By: ASMITA Carbamazepine (Carbamazepine Xr 200 Mg Tabcr) 400 mg PO QPM [facility] Stop: 12/21/24 22:09 Last Admin: 11/24/24 20:36 Dose: 400 mg Documented By: Admin: 11/23/24 19:31 Dose: 400 mg Documented By: Admin: 11/22/24 20:38 Dose: 400 mg Documented By: Admin: 11/21/24 23:16 Dose: 400 mg Documented By: GAIL Diclofenac Sodium (Diclofenac Sod 1% Gel 100 Gm Tube) 4 gm EXT BID [facility]; Protocol Stop: 12/21/24 22:09 Last Admin: 11/25/24 10:52 Dose: 4 gm Documented By: ЕЛЕНА Admin: 11/24/24 20:36 Dose: 4 gm Documented By: Admin: 11/24/24 08:40 Dose: 4 gm Documented By: ЕЛЕНА Admin: 11/23/24 19:27 Dose: 4 gm Documented By: Admin: 11/23/24 07:48 Dose: 4 gm Documented By: Admin: 11/22/24 20:30 Dose: 4 gm Documented By: Admin: 11/22/24 08:40 Dose: 4 gm Documented By: Admin: 11/21/24 23:17 Dose: 4 gm Documented By: GAIL Docusate Sodium (Docusate Sodium 100 Mg Cap) 100 mg PO DAILY [facility] Stop: 12/22/24 08:59 Last Admin: 11/25/24 10:34 Dose: Not Given Documented By: ЕЛЕНА Admin: 11/24/24 08:40 Dose: 100 mg Documented By: ЕЛЕНА Admin: 11/23/24 07:48 Dose: 100 mg Documented By: Admin: 11/22/24 08:40 Dose: 100 mg Documented By: ASMITA Lansoprazole (Lansoprazole 30 Mg Soltab) 30 mg PO [facility] Stop: 12/22/24 08:59 Last Admin: 11/25/24 10:34 Dose: Not Given Documented By: ЕЛЕНА Admin: 11/24/24 08:39 Dose: 30 mg Documented By: ЕЛЕНА Admin: 11/23/24 07:49 Dose: 30 mg Documented By: Admin: 11/22/24 08:40 Dose: 30 mg Documented By: ASMITA Levothyroxine Sodium (Levothyroxine Sodium 200 Mcg Tablet) 200 mcg PO [facility] Stop: 12/22/24 06:29 Last Admin: 11/25/24 05:18 Dose: 200 mcg Documented By: Admin: 11/24/24 05:54 Dose: 200 mcg Documented By: Admin: 11/23/24 06:04 Dose: 200 mcg Documented By: Admin: 11/22/24 04:25 Dose: 200 mcg Documented By: GAIL Lidocaine (Lidocaine 5% 1 Patch) 1 patch TD [facility] Stop: 12/22/24 08:59 Last Admin: 11/25/24 10:53 Dose: 1 patch Documented By: ЕЛЕНА Admin: 11/23/24 19:48 Dose: 1 patch Documented By: Admin: 11/23/24 07:48 Dose: 1 patch Documented By: Admin: 11/22/24 08:40 Dose: 1 patch Documented By: ASMITA Miscellaneous (Remove Lidoderm Patch) 1 each N/A DAILY@2100 [facility] Stop: 12/22/24 20:59 Last Admin: 11/24/24 20:37 Dose: 1 each Documented By: Admin: 11/23/24 19:49 Dose: 1 each Documented By: Admin: 11/22/24 20:31 Dose: 1 each Documented By: EVA Morphine Sulfate (Morphine Sulfate 2 Mg/Ml Carp) 2 mg IV Q2HWA PRN PRN Reason: Breakthrough Pain Stop: 12/09/24 10:21 Last Admin: 11/25/24 11:53 Dose: 2 mg Documented By: ЕЛЕНА Paroxetine HCl (Paroxetine Hcl 20 Mg Tab) 40 mg PO [facility] Stop: 12/22/24 08:59 Last Admin: 11/25/24 10:34 Dose: Not Given Documented By: ЕЛЕНА Admin: 11/24/24 08:39 Dose: 40 mg Documented By: ЕЛЕНА Admin: 11/23/24 07:49 Dose: 40 mg Documented By: Admin: 11/22/24 08:41 Dose: 40 mg Documented By: AMS (1) Fall Encounter type: initial encounter Qualified Code(s): W19.XXXA - Unspecified fall, initial encounter
--- NOTE | 2024-11-25 13:20 | Palliative Care Progress Note ---
Date of Service November 25, 2024 Assessment & Plan (1) Palliative care by specialist: (2) Advanced care planning/counseling discussion: (3) Comfort measures only status: Plan Pt does require a proxy for medical decisions. Patient currently lacks decisional capacity based on the inability to convey understanding of personal PMHx, current medical condition, treatment options nor the risks / benefits of those options, and lack of ability to make decisions based on such knowledge. Hospital does not have written documentation of patient wishes concerning her chosen proxy for medical decisions. Per PA [id number], in absence of written documentation of patient wishes, pt's proxy for medical decisions would be her spouse. Spouse kwame not available for 11am scheduled GOC discussion, discussed case with attending who reports that Kwame was at bedside early this morning and ACP discussion was held. Plan was established to discharge pt back to SNF with hospice care. Dr Sweeney placed TRANSIT SPECIALIST orders and CM has placed hospice referral. Pt appears comfortable at this time without need for palliative mgmt of EOL symptoms. We will sign off on this patient as goals of care are clearly established for comfort directed care, pending discharge to SNF with hospice. Thank you for including Palliative Care in the management of this patient. Please call with any questions or concerns regarding this consultation. Admission and Anticipated Discharge Date Admission Date: November 23, 2024 Subjective Assessed pt at bedside, she was sleeping, arousable but drifts quickly back to sleep. No family at bedside. BSRN reports that pt has been obtunded since last evening and spouse came to visit this morning but has since left. Pt was transitioned to comfort directed care this morning by Dr. Sweeney on request of pt's spouse Kwame. Per notes pt is to return to [facility] with hospice. Review of Systems Review of Systems: Unobtainable due to cognitive status Physical Exam Physical Exam: General Appearance: WD/WN, vitals as above, obtunded, appears chronically ill, poor insight, scattered ecchymosis on limbs Head: normocephalic, atraumatic Eyes: normal inspection Respiratory: normal respiratory effort, lungs clear to auscultation. No accessory muscle use Cardiovascular: regular rate, rhythm, normal peripheral pulses, no BLE edema Chest: normal inspection of chest Abdomen/GI: normal bowel sounds, soft, nontender Neurologic: PERRL, moves all extremities Psychiatric: obtunded Skin: no rashes, normal color, warm/dry Results & Data Vital Signs (Past 12 Hours) Vital Signs Temp Pulse Resp BP Pulse Ox O2 Del Method 11/25/24 11:16 37.4 C 87 16 131/71 93 Room Air 11/25/24 08:09 36.6 C 83 16 126/77 93 Room Air Laboratory Results Abnormal lab results 11/25/24 Range/Units 07:36 WBC 4.45 L (4.8-10.8) K/ul RBC 3.34 L (4.20-5.40) M/uL Hgb 10.4 L (12.0-16.0) g/dl Hct 30.7 L (37.0-47.0) % RDW Std Deviation 50.7 H (36.4-46.3) fL RDW Coeff of Kelvin 14.9 H (11.5-14.5) % MPV 8.2 L (9.4-12.4) fL Lymph # (Auto) 1.00 L (1.20-3.40) K/uL Sodium 132 L (136-145) mmol/L Chloride 97 L (98-107) mmol/L Creatinine 0.40 L (0.6-1.2) mg/dl BUN/Creatinine Ratio 22.5 H (10-20) Calcium 8.5 L (8.6-10.3) mg/dl Alkaline Phosphatase 162 H (34-104) U/L Albumin 2.9 L (3.4-5.0) gm/dl Diagnostic Findings No further labs or diagnostics in concert with comfort directed care. Medications Administered Current Inpatient Medications Carbamazepine (Carbamazepine 200 Mg Tablet) 600 mg PO QAM [facility] Stop: 12/22/24 08:59 Last Admin: 11/25/24 10:34 Dose: Not Given Carbamazepine (Carbamazepine Xr 200 Mg Tabcr) 400 mg PO QPM [facility] Stop: 12/21/24 22:09 Last Admin: 11/24/24 20:36 Dose: 400 mg Diclofenac Sodium (Diclofenac Sod 1% Gel 100 Gm Tube) 4 gm EXT BID [facility]; Protocol Stop: 12/21/24 22:09 Last Admin: 11/25/24 10:52 Dose: 4 gm Docusate Sodium (Docusate Sodium 100 Mg Cap) 100 mg PO DAILY [facility] Stop: 12/22/24 08:59 Last Admin: 11/25/24 10:34 Dose: Not Given Lansoprazole (Lansoprazole 30 Mg Soltab) 30 mg PO [facility] Stop: 12/22/24 08:59 Last Admin: 11/25/24 10:34 Dose: Not Given Levothyroxine Sodium (Levothyroxine Sodium 200 Mcg Tablet) [facility]cg [facility] Stop: 12/22/24 06:29 Last Admin: 11/25/24 05:18 Dose: 200 mcg Lidocaine (Lidocaine 5% 1 Patch) 1 patch TD [facility] Stop: 12/22/24 08:59 Last Admin: 11/25/24 10:53 Dose: 1 patch Lorazepam (Lorazepam 2 Mg/1 Ml Vial) 0.5 mg IV Q4H PRN PRN Reason: Anxiety/Agitation Stop: 12/25/24 10:21 Miscellaneous (Remove Lidoderm Patch) 1 each N/A DAILY@2100 [facility] Stop: 12/22/24 20:59 Last Admin: 11/24/24 20:37 Dose: 1 each Morphine Sulfate (Morphine Sulfate 10 Mg/0.5 Ml Udp) 5 mg PO Q2HWA PRN PRN Reason: Pain or Respiratory Distress Stop: 12/09/24 10:21 Morphine Sulfate (Morphine Sulfate 2 Mg/Ml Carp) 2 mg IV Q2HWA PRN PRN Reason: Breakthrough Pain Stop: 12/09/24 10:21 Last Admin: 11/25/24 11:53 Dose: 2 mg Ondansetron HCl (Ondansetron Inj 2 Mg/Ml 2 Ml Vial) 4 mg IV Q4H PRN PRN Reason: Nausea And Vomiting Stop: 12/21/24 22:09 Paroxetine HCl (Paroxetine Hcl 20 Mg Tab) 40 mg PO [facility] Stop: 12/22/24 08:59 Last Admin: 11/25/24 10:34 Dose: Not Given PG Care Time/CCT Total # of Minutes Spent Total Time Spent with Patient: Total time spent is greater than 50% in coordination of care (as documented) at patient's floor/unit and/or counseling patient: [place] [address] SUB INP/OBS CARE 25MIN Patient Type Established History Problem Focused Exam Problem Focused Medical Decision Making Straight Forward Diagnoses Palliative care by specialist Z51.5 Advanced care planning/counseling discussion Z71.89 Comfort measures only status Z51.5
--- NOTE | 2024-11-25 14:50 | Discharge Summary ---
Discharge Summary Date of Service November 25, 2024 Principal Dx & Hospital Course #1 = Principal Diagnosis (1) Fall: (2) AMS (altered mental status): (3) Melanoma metastatic to brain: (4) Weakness generalized: (5) Degenerative joint disease of right hip: Plan Patient is a 64-year-old female with history of metastatic melanoma, chronic hyponatremia, seizure disorder, hypertension, hyperlipidemia, hypothyroidism and other medical problems presents after history of fall from bed while at rehab facility. Patient was recently hospitalized and managed for pathological fracture of right acetabulum, right femoral head and left rib fractures, UTI. She was thought to be more confused from her baseline. Acute Metabolic Encephalopathy Melanoma with mets to brain s/p Craniotomy in Feb 2024 Seizure disorder --Dx 2021, original site left leg, s/p XRT, s/p L [place] [facility] [place] -Forgetful with waxing and waning mentation since February, per . 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 subq ativan SIRS Criteria -unclear source, potentially urinary in nature vs. central vs. meningitis vs. abdomen/pelvis (less likely) vs. CAP (negative chest xray -febrile, tachycardic Plan: -comfort focused care Multiple falls Ambulatory dysfunction Failure to thrive Imaging all grossly unremarkable for acute fracture -likely decline 2/2 end stage melanoma Acute on chronic hyponatremia -Likely multifactorial secondary to carbamazepine, hypothyroidism, poor oral intake -Urine sodium, urine and serum osmolality HTN HLD Mood disorder -Continue paroxetine Hypothyroidism Notes For Next Care Provider This is a 64-year-old female resident of [facility] with PMHx of melanoma with metastatic disease of the brain (dx 2021, original site left leg, s/p XRT, s/p L frontal [place] [facility] [place] complicated by seizure disorder, chronic hyponatremia, hypertension, CAD, seizure disorder, cerebral atrophy, mood disorder and other medical problems listed below who presents from home. On medi cine, oncology consulted, who stated to consider hospice. Palliative care consulted as well for assistance with [facility]. Noted to have ECOG 4 with end stage melanoma. wants to focus on comfort care. Discharged on 11/25/[address] [facility] with hospice services. Medication Changes From Visit -see below Admission HPI Per Admitting Provider This is a 64-year-old female resident of [facility] with PMHx of melanoma with metastatic disease of the brain (dx 2021, original site left leg, s/p XRT, s/p L frontal craniotomy [place] [facility] [place] complicated by seizure disorder, chronic hyponatremia, hypertension, CAD, seizure disorder, cerebral atrophy, mood disorder and other medical problems listed below who presents from home. Pt was previously admitted to [facility] and from there was discharged home. She was also recently admitted from 10/25/26-11/03/24 for acute pain in R knee, severe right hip osteoarthritis, age related osteoporosis found to have multiple old fractures. Ortho was involved at that time and did not recommend surgery. Today she presents after being found on the ground out of bed at [facility], no new fractures noted on imaging today. Her main complaint today is pain in her back since falling. When asked specifics about events this morning she has difficulty recalling anything other than she fell. When asked date, she repeats 1953. Pt denies headache, lightheadedness, dizziness. She says she is eating and drinking well. AMS noted to be worse per , specifically with worsening mcfp memory which had been fairly intact per his report. Short term memory has been an issue since craniotomy. reports plan is to be at [facility] for 2 more weeks, then would attempt to go home again. Discharge Exam Gen: A&O 1 NAD HEENT: NCAT, EOMI, not icteric. External ears normal. No rhinorrhea. Moist mucous membranes. Neck: Supple, full range of motion, no observable masses, No meningeal sign. Lungs: No Respiratory distress. CV: tachycardic, regular rhythm Abdomen: Soft, nondistended, No rebound tenderness. MSK: No joint swelling, no redness. Skin: No rashes, petechiae, lesions. Normal color per patient. Neuro: Normal Gait, Grossly intact. Updated Medication List Medication Instructions Recorded Confirmed Type triamcinolone acetonide 0.1 % 1 applic topical BID itching #15 04/28/24 11/21/24 Rx topical cream grams cholecalciferol (vitamin D3) 25 25 mcg PO MOFR@0900 09/03/24 11/21/24 History mcg (1,000 unit) tablet levothyroxine 200 mcg tablet 200 mcg PO DAILY 09/03/24 11/21/24 History acetaminophen 500 mg tablet 1,000 mg (2 x 500 mg) PO Q8H #14 09/09/24 11/21/24 Rx (Tylenol Extra Strength) tabs atorvastatin 20 mg tablet 20 mg PO QPM #30 tabs 09/09/24 11/21/24 Rx dabrafenib 75 mg capsule (Tafinlar) 75 mg PO [facility] #30 caps 09/09/24 11/21/24 Rx losartan 50 mg tablet 50 mg PO QAM #30 tabs 09/09/24 11/21/24 Rx paroxetine HCl 40 mg tablet 40 mg PO QAM #30 tabs 09/09/24 11/21/24 Rx trametinib 0.5 mg tablet (Mekinist) 1.5 mg (3 x 0.5 mg) PO DAILY #30 09/09/24 11/21/24 Rx tabs docusate sodium 100 mg capsule 100 mg PO DAILY 10/25/24 11/21/24 History diclofenac sodium 1 % topical gel 4 g EXT BID #100 grams 11/03/24 11/21/24 Rx (Voltaren Arthritis Pain) lansoprazole 30 mg delayed 30 mg PO QAM #30 tabs 11/03/24 11/21/24 Rx release,disintegrating tablet (Prevacid SoluTab) carbamazepine 200 mg tablet 600 mg PO QAM 11/21/24 11/21/24 History carbamazepine 200 mg 400 mg PO QPM 11/21/24 11/21/24 History tablet,extended release,12 hr Hospital Stay Data Consultations 11/21/24 17:59 ED Decision to Admit Stat 11/21/24 22:10 Consult Palliative Care Routine Consult Palliative Care Routine 11/23/24 18:35 Consult Orthopedic Spine Surgery Routine 11/24/24 07:43 Consult Oncology Routine Diagnostic Imagining Performed 11/21/24 14:44 CT cervical spine wo con Stat CT head/brain wo con Stat 11/21/24 14:54 CT chest diagnostic wo con Stat 11/21/24 18:02 MRI Brain [MR brain wo/w con] Stat 11/22/24 02:05 MR cervical spine wo con Routine MR thoracic spine wo con Routine Pending Results Patient Have Any Pending Studies at Discharge: No Discharge Instructions Given to Patient (Per Discharging Provider) 1. Discharged to [facility] on hospice services. Total Time Total Time Spent Total Time Spent (In Minutes): I spent a total of 35 minutes in direct patient care, including [id number] time with the patient and/or family, reviewing medical records, ordering and reviewing diagnostic tests, and coordinating care with other healthcare providers. This time includes: history taking, physical examination, medical decision making, counseling, ECG interpretation, imaging interpretation, lab interpretation, orders, and education, excluding time spent in the performance of separately billed services.
== END 2024-11-25 17:09 | disposition hospice, inpatient (51) | DRG 54 ==
LOC: 2N 14:29 → ED 14:29 → SUATTDRO 18:02 → 2N 21:12 → SUATTDRO 11-23 18:26 → 3W 11-25 13:30